=== PATIENT | male | born 1970 | race Caucasian/White ===

== ENCOUNTER 2016-04-08 07:56 | Emergency (ER) | payer MEDICARE, MEDICAID ==
[~2016-04-08] VITALS: Ht 167.6 cm; Wt 145.5 kg
[~2016-04-08 07:56] MED LIST: AGM875T PO; ALBU0.8322 NEB; ALBU8.5H2 IH; ALBU8.5H4 IH; ASP325TEC PO; CARV3.12 PO; CARV6.252 PO; CLCX200C PO; CYCL10TA9 PO; DOXY-233 PO; FLUO20CA25 PO; FURO40TA4 PO; GBPN300C PO; HCTZ; HELIDAC PO; HYDR-2889 PO; HYDR-2890 PO; HYDR-2997 PO; HYDR-3714 PO; HYDR-757 PO; HYDR1CAP3; HYDR1TAB PO; HYDR1TAB86 PO; IBP800T PO; KCL20TCR PO; LISI5TAB PO; LOVA20TA2 PO; MELO-195 PO; METFORMIN; MPR22T TOP; MTF500T PO; MULT-608 PO; NF-ESOM40C PO; OMEP40CA36 PO; PHEN37.53 PO; PNT40TEC PO; PRD20T PO; PROZAC; RAMI1.25 PO; TRAZ150T42 PO; TRM50T; TRM50T PO; TRZ50T; WRF5T
--- OUTSIDE RECORDS SUMMARY | 2016-04-08 08:02 | XMS REPORT | Continuity of Care Document ---
Author Author [facility] Organization [facility] Address Unknown Phone Unavailable Care Team Providers Care Network Announcer Name Role Phone Eli Cheema PCP [phone] Source Comments Some departments are not documenting in the electronic medical record. If you do not see the information that you expected, contact Release of Information in the Health Information Management department at [phone] for further assistance in locating additional records.[facility] Active Allergies and Adverse Reactions Not on File Current Medications Not on file Active Problems Not on file Social History Tobacco Use Types Packs/Day Years Used Date Never Assessed Plan of Care Health Maintenance Due Date Last Done Comments Physical (Comprehensive) 1977 Exam Pertussis Vaccine 1981 Tetanus Vaccine 09/17/1987 Influenza Vaccine 11/12/2014 Results from Last 3 Months Not on file
[2016-04-08] MEDS ORDERED: MORP30TA60 PO (08:22)
[2016-04-08] MEDS ORDERED: MORP15TA69 PO (08:22)
[2016-04-08] MEDS ORDERED: GABA600T2 PO (08:22)
[2016-04-08] MEDS ORDERED: PALI9TAB PO (08:22)
--- NOTE | 2016-04-08 09:07 | Diagnostic Imaging Report ---
Clinical indication: Patient states he fell last night hurting foot. Patient has pain in the fifth metatarsal area. Exam: X-ray of the right foot, 3 views. Comparison: X-ray of the right foot dated 07/30/2010. Findings: Compared to the prior study, there is a new roughly 1 mm calcification which is medially adjacent to the fifth MTP joint. A donor site is not visualized on this exam. Correlation for pain in this region would better evaluate. Otherwise, the remainder of the right foot shows no other concern for acute fracture or dislocation. Stable hypertrophic calcaneal spur at the plantar attachment. Impression: 1.: Interval development of a small calcification which is medially adjacent to the fifth MTP joint with no donor site seen. It is unknown if this is acute or chronic. Correlation for pain in this region would help better evaluate. If there is continued concern, then CT scan would better evaluate. 2.: Stable calcaneal degenerative disease. Dictated by: Dictated on workstation # [id number]
--- NOTE | 2016-04-08 09:13 | ED Lower Extremity ---
General Chief Complaint: Lower Extremity Stated Complaint: FALL/RIGHT FOOT INJURY Nursing Triage Note: PT CO OF R FOOT PAIN FROM FALL Nursing Sepsis Screen: No Definite Risk Source: patient Exam Limitations: no limitations History of Present Illness Time seen by provider: 09:08 Initial Comments The patient is a 45-year-old white male who is quite obese. He reports that last night through in attentiveness he rolled his right ankle. He promptly iced and elevated this. He reports that now the ankle is not swollen but he has pain along the lateral aspect of the foot is unable to walk on it. Onset: yesterday Pain/Injury Location: right foot, right ankle Method of Injury: twisted Allergies and Home Medications Allergies Coded Allergies: NKANo Known Allergies (Unverified Allergy, Mild, 01/25/09) Home Medications Albuterol 8.5 Gm Hfa.aer.ad 2 PUFF IH Q4H PRN PRN (Reported) PRN SHORTNESS OF BREATH Albuterol Sulfate 2.5 Mg/3 Ml Solution 2.5 MG NEB DAILY PRN PRN (Reported) PRN WHEEZING Carvedilol 6.25 Mg Tablet 3.125 MG PO BID (Reported) Esomeprazole Mag Trihydrate 40 Mg Capsule.dr #30 40 MG PO DAILY (Reported) Fluoxetine Hcl 20 Mg Capsule 20 MG PO DAILY (Reported) Furosemide 40 Mg Tablet 40 MG PO BID (Reported) take one in AM and one in early afternoon Gabapentin 600 Mg Tablet Unknown Dose PO DAILY (Reported) Hydrocodone Bit/Acetaminophen 1 Each Tablet #14 1-2 EACH PO Q6HR PRN PRN PRN PAIN Prescribed by: GONSALO NOVAK on 03/21/142218 Lovastatin 20 Mg Tablet 10 MG PO HS (Reported) TAKES 1/2 OF 20MG TAB DAILY Metformin Hcl 500 Mg Tablet 500 MG PO BID (Reported) Morphine Sulfate 15 Mg Tablet.er 15 MG PO DAILY (Reported) Morphine Sulfate 30 Mg Tablet.er 30 MG PO HS (Reported) Paliperidone 9 Mg Tablet.sa 12 MG PO DAILY PRN PRN ANXIETY (Reported) Potassium Chloride 20 Meq Tab 20 MEQ PO DAILY (Reported) Trazodone Hcl 150 Mg Tablet 150 MG PO HS (Reported) Constitutional: see HPI EENTM: no symptoms reported Respiratory: no symptoms reported Cardiovascular: no symptoms reported Gastrointestinal: no symptoms reported Genitourinary: see HPI Musculoskeletal: joint pain Skin: no symptoms reported Psychiatric/Neurological: No Symptoms Reported Past Fhbaejt-Oeijsk-Ncpavq Hx Patient Social History Alcohol Use: Denies Use Recreational Drug Use: No Smoking Status: Current Everyday Smoker Recent Foreign Travel: No Contact w/Someone Who Travel: No Recent Infectious Disease Expo: No Recent Hopitalizations: Yes (BLOOD CLOT IN LEFT KNEE) Physical Abuse Screen: No Sexual Abuse: No Immunizations Up To Date Tetanus Booster (TDap): Less than 5yrs Date of Influenza Vaccine: Nov 29, 2011 Surgeries HX Surgeries: Yes (RIGHT SHOULDER REPAIR/ L KNEE ARTHROSCOPY, GASTRIC SLEEVE) Respiratory Hx Respiratory Disorders: Yes Respiratory Disorders: Asthma, Sleep Apnea Cardiovascular Hx Cardiac Disorders: Yes (CHF) Cardiac Disorders: Angina, High Cholesterol, Hypertension Neurological Hx Neurological Disorders: Yes Neurological Disorders: Neuropathy Reproductive System Hx Reproductive Disorders: No Sexually Transmitted Disease: No Genitourinary Hx Genitourinary Disorders: No Gastrointestinal Hx Gastrointestinal Disorders: Yes (GASTRIC BYPASS 2013) Musculoskeletal Hx Musculoskeletal Disorders: Yes (CHRONIC LEG PAINS) Endocrine Hx Endocrine Disorders: No Endocrine Disorders: Diabetes, Non-Insulin dep HEENT HX ENT Disorders: Yes (SEVERAL MISSING AND BROKEN teeth) Cancer Hx Cancer: No Psychosocial Hx Psychiatric Problems: Yes Behavioral Health Disorders: Depression Integumentary HX Skin/Integumentary Disorder: No Blood Transfusions Hx Blood Disorders: No Family Medical History Significant Family History: Cancer, Diabetes Physical Exam Vital Signs Vital Sign - Last 12Hours 04/08/16 08:10 Temp 98.0 Pulse 76 Resp 18 B/P 132/98 Pulse Ox 95 Capillary Refill : Less Than 3 Seconds General Appearance: mild distress HEENT: normal ENT inspection Neck: non-tender full range of motion supple normal inspection Cardiovascular: normal peripheral pulses regular rate, rhythm no edema no gallop no JVD no murmur Respiratory: chest non-tender lungs clear normal breath sounds no respiratory distress no accessory muscle use Gastrointestinal: other Back: normal inspection Comments There is minimum swelling noted. The distal tibia and foot show a bronzy discoloration suggesting venous stasis dermatitis. There is tenderness in the distribution of the lateral ligament. There is particular tenderness without deformity at the fifth metatarsal head. Progress/Results/Core Measures Results/Orders My Orders Orders-MARY TIM MD Foot, Right, 3 View (04/08/16 07:58) Steplite (04/08/16 09:16) Vital Signs/I&O Vital Sign - Last 12Hours 04/08/16 08:10 Temp 98.0 Pulse 76 Resp 18 B/P 132/98 Pulse Ox 95 Blood Pressure Mean: 109 Departure Impression Impression: Primary Impression: right ankle sprain Disposition: 01 HOME, SELF-CARE Condition: Stable/Unchanged Departure-Patient Inst. Decision time for Depature: 09:11 Referrals: [facility] (PCP/Family) Primary Care Physician Patient Instructions: Ankle Sprain (DC) Add. Discharge Instructions: All discharge instructions reviewed with patient and/or family. Voiced understanding. Continue to elevate and ice for a period of 48 hours. Use the boot as placed. This may be removed for bathing or sleep. It may take 3 weeks or more before you're able to walk without discomfort. If further problems see your provider. MARY TIM MD Apr 08, 2016 09:13
[2016-04-08 16:10] VITALS: BP 124/74
== END 2016-04-08 09:30 | disposition home or self-care (01) ==
LOC: EDUNIT# 07:56 → ER 07:58
DX: S93.401A Sprain of unspecified ligament of right ankle, initial encounter (principal); E11.9 Type 2 diabetes mellitus without complications; E66.9 Obesity, unspecified; F17.210 Nicotine dependence, cigarettes, uncomplicated; Z79.84 Long term (current) use of oral hypoglycemic drugs; Z79.899 Other long term (current) drug therapy; Z98.84 Bariatric surgery status; X58.XXXA Exposure to other specified factors, initial encounter; Y92.009 Unspecified place in unspecified non-institutional (private) residence as the place of occurrence of the external cause; Y99.8 Other external cause status
CPT/HCPCS: 73630

== ENCOUNTER → 2016-05-04 | Outpatient (CLI) | payer MEDICARE, MEDICAID ==
[~2016-05-04] MED LIST changes: +GABA600T2 PO; +MORP15TA69 PO; +MORP30TA60 PO; +PALI9TAB PO
--- OUTSIDE RECORDS SUMMARY | 2016-05-04 13:40 | XMS REPORT | Continuity of Care Document ---
Author Author [facility] Organization [facility] Address Unknown Phone Unavailable Care Team Providers Care Hide Measuring Machine Operator Name Role Phone Eli Cheema PCP [phone] Source Comments Some departments are not documenting in the electronic medical record. If you do not see the information that you expected, contact Release of Information in the Health Information Management department at [phone] for further assistance in locating additional records.[facility] Active Allergies and Adverse Reactions Not on [...]
--- NOTE | 2016-05-04 14:42 | Diagnostic Imaging Report ---
PROCEDURE: CT right lower extremity without contrast. TECHNIQUE: Axially acquired CT was obtained through the right lower extremity without intravenous contrast. Coronal and sagittal reformations were also performed. INDICATION: Anterior foot pain. COMPARISON: Right foot radiographs of 04/08/2016. FINDINGS: There is no acute or healing fracture in the right hindfoot, midfoot or forefoot. There are small foci of heterotopic ossification just medial to the fifth metatarsal head. There is no cortical defect in the metatarsal head to indicate donor site fracture. These are likely due to soft tissue trauma resulting in small foci of heterotopic ossification. No evidence of metatarsal or calcaneal stress injury. Hallux sesamoids are normal in position without significant degenerative changes. There is an os trigonum present at the posterior process of the talus, a normal variant. No tarsal coalition. Small plantar calcaneal spur. No osseous erosions or uniform joint space narrowing to suggest inflammatory arthritis. By CT, the distal Achilles is normal. No subluxation of the peroneal tendons. Medial flexor and anterior extensor tendons of the ankle are grossly normal. No soft tissue swelling. IMPRESSION: 1. No acute or healing fracture in the right foot. 2. Small foci of heterotopic ossification adjacent to the medial aspect of the fifth metatarsal head are likely from trauma resulting in soft tissue mineralization. 3. No stress fracture of the metatarsals or calcaneus. Dictated by: Dictated on workstation # [id number]
== END ==
LOC: RAD 13:34
PROVIDERS: ATTEND Family Medicine
DX: M79.671 Pain in right foot (principal)
CPT/HCPCS: 73700

== ENCOUNTER → 2017-12-07 | Outpatient (CLI) | payer MEDICARE, MEDICAID ==
[~2017-12-07] MED LIST changes: +REGADENOSON 0.4 MG/5 ML SYR (LEXISCAN) IV ONE
[2017-12-07] MEDS: CATHETER FLUSH 10 ML SYR IV PRN ×2 (08:13→09:40)
[2017-12-07 09:39] VITALS: BP 151/104
--- NOTE | 2017-12-07 22:07 | STRESS TEST ---
DATE OF SERVICE: 12/07/2017 LEXISCAN MYOVIEW STRESS TEST REPORT REFERRING PHYSICIAN: Dr. Cheema, [facility]. Baseline heart rate is 81, baseline blood pressure 151/104. Baseline EKG is sinus rhythm with no ischemic changes. In summary, the patient was injected with 10.71 mCi of technetium-99 Myoview and the resting images were obtained. Then, the patient received 0.4 mg of Lexiscan followed by 30.1 mCi of technetium-99 Myoview. Throughout the test, there were no EKG changes. The resting and stress images were reviewed and compared in the short axis, horizontal long axis, and vertical long axis views. Review of the images showed diaphragmatic attenuation with typical male pattern. There is no significant ischemia or infarction was seen. SSS is 2, SDS 2, TID value 1.05. On the gated images, the left ventricle appeared to be in normal size with normal contractility. Calculated ejection fraction 65%. CONCLUSION: 1. The patient tolerated Lexiscan well. 2. No ischemia or infarction on SPECT images with diaphragmatic attenuation. 3. Normal left ventricular size with normal contractility. Calculated ejection fraction 65%. Job ID: [id number] DocumentID: [id number] Dictated Date: 12/07/2017 19:04:59 Tourist Escort Date: 12/07/2017 22:06:38 Dictated By: ARPAN YOUNG MD
== END ==
LOC: CARD 07:58
PROVIDERS: ATTEND Internal Medicine Cardiovascular Disease
DX: R07.89 Other chest pain (principal)
CPT/HCPCS: 78452; 93017

== ENCOUNTER → 2017-12-22 | Outpatient (CLI) | payer MEDICARE, MEDICAID ==
[~2017-12-22] MED LIST changes: -REGADENOSON 0.4 MG/5 ML SYR (LEXISCAN) IV ONE
--- NOTE | 2017-12-22 10:05 | Diagnostic Imaging Report ---
EXAMINATION: Left knee at 0942 AM INDICATION: Knee pain Three views were obtained. There is no fracture, dislocation or acute bony abnormality evident. There is perhaps slightly greater narrowing of both the medial and lateral compartments of the knee joint when compared to the prior exam of 08/19/2011. The patellofemoral space remains well maintained. The soft tissues are unremarkable. IMPRESSION: 1. There is no evidence for an acute bony abnormality. 2. The degenerative changes involving the knee joint have progressed somewhat since the prior study. 3. If there is clinical concern regarding internal derangement, then MRI would be recommended for further evaluation. Dictated by: Dictated on workstation # [id number]
== END ==
LOC: RAD 09:09
PROVIDERS: ATTEND Physician Assistant
DX: S89.92XA Unspecified injury of left lower leg, initial encounter (principal); M17.12 Unilateral primary osteoarthritis, left knee
CPT/HCPCS: 73562

== ENCOUNTER → 2017-12-28 | Outpatient (CLI) | payer MEDICARE, MEDICAID | LOC: CARD 13:06 | PROVIDERS: ATTEND Internal Medicine Cardiovascular Disease | DX: R07.89 Other chest pain (principal); I07.1 Rheumatic tricuspid insufficiency | CPT/HCPCS: 93306 ==

== ENCOUNTER → 2018-01-04 | Outpatient (CLI) | payer MEDICARE, MEDICAID ==
--- NOTE | 2018-01-04 12:39 | Diagnostic Imaging Report ---
PROCEDURE: MRI left joint lower extremity without contrast. TECHNIQUE: Multiplanar, multisequence non contrast-enhanced MRI of the left lower extremity was accomplished. INDICATION: Twisting left knee injury 3 weeks ago with persistent pain. COMPARISON: Radiographs from 12/22/2017. FINDINGS: No acute fracture or dislocation is seen in the left knee. There is motion artifact on multiple sequences. Subcortical cyst-like changes are seen at the tibia and the femoral trochlea, likely degenerative. Small osteophytes are noted at all 3 compartments. There is minimally increased joint fluid without yessenia effusion seen. There is a small Mancuso's cyst with small 5 mm joint bodies present. The articular cartilage in the patellofemoral compartment demonstrates full-thickness cartilage loss over the lateral trochlea with heterogeneity and surface irregularity of the patellar articular cartilage. The articular cartilage in the medial compartment demonstrates moderate to marked thinning with areas of near full-thickness cartilage loss. The lateral compartment demonstrates moderate to marked thinning of the articular cartilage as well. No large full-thickness defects are seen. There is mildly increased signal in the lateral meniscus without discrete tear seen. The medial meniscus demonstrates complex, predominantly horizontal tearing of the posterior horn which extends to the meniscal body which is partially extruded. There is radial tearing of the meniscal body as well. The anterior and posterior cruciate ligaments appear intact. The medial collateral ligament demonstrates mild adjacent edema, which may be due to the meniscal pathology, but no ligamentous tear is seen. The lateral collateral ligamentous complex appears intact. The extensor mechanism appears intact. The medial and lateral retinacula are intact. The soft tissues about the left knee are otherwise unremarkable. IMPRESSION: 1. Complex tearing of the medial meniscus of the left knee. 2. Mild tricompartmental osteoarthritis and cartilage loss in the left knee. 3. Small Mancuso's cyst with small joint bodies. Dictated by: Dictated on workstation # [id number]
== END ==
LOC: RAD 09:46
PROVIDERS: ATTEND Family Medicine
DX: S83.232A Complex tear of medial meniscus, current injury, left knee, initial encounter (principal); X50.1XXA Overexertion from prolonged static or awkward postures, initial encounter; M17.12 Unilateral primary osteoarthritis, left knee; M71.22 Synovial cyst of popliteal space [Baker], left knee
CPT/HCPCS: 73721

== ENCOUNTER → 2018-01-24 | Outpatient (CLI) | payer MEDICARE, MEDICAID ==
[~2018-01-24] VITALS: Ht 167.6 cm; Wt 145.5 kg
[~2018-01-24] MED LIST changes: +ACHD5005 PO; +ESCI10TA PO; +HYDR50TA76 PO; +IBUP-1780 PO; +LIRA0.6P SQ; +LOVA40TA2 PO; +METF-397 PO; +OLOP2.5D OP; +PALI6TAB PO; +PANT40TA3 PO; +RT-ALBUINH IH; +TRAZ150T72 PO
== END | disposition home or self-care (01) ==
LOC: PREOP 06:22
PROVIDERS: ATTEND Surgery
DX: Z01.818 Encounter for other preprocedural examination (principal)

== ENCOUNTER 2018-01-31 07:03 | Day surgery (SDC) | payer MEDICARE, MEDICAID ==
[~2018-01-31] VITALS: Ht 167.6 cm; Wt 145.5 kg
[2018-01-31] MEDS ORDERED: LACTATED RINGERS 1,000 ML IV ONE (07:10)
[2018-01-31] MEDS ORDERED: LACTATED RINGERS 1,000 ML IV STA (07:20)
[2018-01-31] MEDS ORDERED: MIDAZOLAM 2 MG/2 ML (VERSED) VIAL ONE (07:25)
[2018-01-31] MEDS ORDERED: PROPOFOL INJECTION 50 ML IV ONE (07:25)
[2018-01-31 07:29] VITALS: BP 164/102
[2018-01-31] MEDS ORDERED: HURRICAINE EXT TUBE (BENZOCAINE) XX PRN (07:30)
[2018-01-31] MEDS ORDERED: HURRICAINE EXT TUBE (BENZOCAINE) ONE (08:50)
--- NOTE | 2018-01-31 08:52 | Progress Note-Pre Operative ---
Pre-Operative Progress Note H&P Reviewed The H&P was reviewed, patient examined and no changes noted. Date Seen by Provider: Jan 31, 2018 Time Seen by Provider: 08:52 Date H&P Reviewed: Jan 31, 2018 Time H&P Reviewed: 08:52 Pre-Operative Diagnosis: gerd, chest pain, weight gain PATEL QUIROGA DO Jan 31, 2018 08:52
[2018-01-31] MEDS ORDERED: SUCR1TAB36 PO (09:30)
--- NOTE | 2018-01-31 09:31 | Discharge Inst-Simple/Standard ---
Discharge Inst-Standard Discharge Medications New, Converted or Re-Newed RX: Transmitted to Pharmacy Patient Instructions/Follow Up Plan of Care/Instructions/FU: 2-3 weeks Cas Appt. Dietitian for sleeve gastrectomy follow up. Activity as Tolerated: Yes Discharge Diet: Regular Diet PATEL QUIROGA DO Jan 31, 2018 09:31
[2018-01-31 09:35] VITALS: BP 149/97
--- NOTE | 2018-01-31 09:35 | Progress Note-Post Operative ---
Post-Operative Progess Note Surgeon (s)/Building Maintenance Supervisor (s) Surgeon PATEL QUIROGA DO Building Maintenance Supervisor: na Pre-Operative Diagnosis gerd, chest pain, weight gain Post-Operative Diagnosis minimal gastritis, hiatal hernia Procedure & Operative Findings Date of Procedure 01/31/18 Procedure Performed/Findings egd c biopsy Anesthesia Type per cam milling machine operator Estimated Blood Loss Estimated blood loss (mL): na Specimens/Packing Specimens Removed antrum PATEL QUIROGA DO Jan 31, 2018 09:35
[2018-01-31 10:05] VITALS: BP 153/92
[2018-01-31 10:10] VITALS: BP 153/92
--- NOTE | 2018-01-31 12:13 | Anesthesia-General Post-Op ---
MAC Patient Condition Mental Status/LOC: Same as Preop Cardiovascular: Satisfactory Nausea/Vomiting: Absent Respiratory: Satisfactory Pain: Controlled Complications: Absent Post Op Complications Complications None Follow Up Care/Instructions Patient Instructions None needed. Anesthesiology Discharge Order Discharge Order Patient is doing well, no complaints, stable vital signs, no apparent adverse anesthesia problems. No complications reported per nursing. RASHEEDA POWELL CRNA Jan 31, 2018 12:13
--- NOTE | 2018-01-31 16:39 | OPERATIVE REPORT ---
DATE OF SERVICE: 01/31/2018 PREOPERATIVE DIAGNOSES: Gastroesophageal reflux disease, chest pain, and weight gain. POSTOPERATIVE DIAGNOSES: Minimal gastritis, hiatal hernia. PROCEDURE PERFORMED: Esophagogastroduodenoscopy with biopsy. ANESTHESIA: Per RADIO STATION OPERATOR. ESTIMATED BLOOD LOSS: None. SPECIMENS: Antrum. INDICATIONS: The patient is a 47-year-old male with some GERD, chest pain and weight gain after sleeve gastrectomy. He understands risks and benefits of procedure and wished to proceed with procedure. Consent was signed in the chart. DESCRIPTION OF PROCEDURE: The patient was taken to the endoscopy suite, placed in left lateral recumbent position. Timeout was performed. Scope was inserted in mouth, down the esophagus, stomach and then to the duodenum without difficulty. There were no polyps, masses or ulcerations of the duodenum. Scope was slowly retracted back to the stomach where it was further insufflated. The stomach with previous sleeve gastrectomy appears to be slightly dilated compared to what one would expect. There were some slight erythematous changes down in the antral portion. Biopsy of the antrum was obtained. Scope was retroflexed noting a hiatal hernia. No other pathology noted. Scope was returned to its normal position, slowly withdrawn to the distal esophagus, which had normal appearance. There were no polyps, masses or ulcerations. Scope was slowly retracted back to completely remove. The patient tolerated procedure well without any complications, taken to recovery room in stable condition. RECOMMENDATIONS: The patient is to follow up in two to three weeks. We will start him on Carafate and see how he is doing and follow up on pathology results. Further recommendations are pending. Job ID: [id number] DocumentID: [id number] Dictated Date: 01/31/2018 09:36:50 Slitting Machine Feeder Date: 01/31/2018 16:39:17 Dictated By: PATEL QUIROGA DO
== END 2018-01-31 10:10 | disposition home or self-care (01) ==
LOC: ENDO 07:03
PROVIDERS: ATTEND Surgery
DX: K29.70 Gastritis, unspecified, without bleeding (principal); K21.9 Gastro-esophageal reflux disease without esophagitis; K44.9 Diaphragmatic hernia without obstruction or gangrene; I11.0 Hypertensive heart disease with heart failure; I50.9 Heart failure, unspecified; I20.9 Angina pectoris, unspecified; E11.43 Type 2 diabetes mellitus with diabetic autonomic (poly)neuropathy; J45.909 Unspecified asthma, uncomplicated; G47.33 Obstructive sleep apnea (adult) (pediatric); F17.210 Nicotine dependence, cigarettes, uncomplicated; E66.01 Morbid (severe) obesity due to excess calories; Z68.43 Body mass index [BMI] 50.0-59.9, adult; Z86.718 Personal history of other venous thrombosis and embolism; Z79.84 Long term (current) use of oral hypoglycemic drugs; Z79.899 Other long term (current) drug therapy; Z98.84 Bariatric surgery status

== ENCOUNTER → 2018-06-01 | Outpatient (CLI) | payer MEDICARE, MEDICAID ==
[~2018-06-01] MED LIST changes: -GABA600T2 PO; +GBPN600T PO; +SUCR1TAB36 PO
--- NOTE | 2018-06-01 17:19 | Diagnostic Imaging Report ---
INDICATION: Lump on shoulder. AP and angled views of the right clavicle are obtained. FINDINGS: No fracture or acute bony abnormality is seen. There is no destructive bony lesion. There is some superior osteophyte formation at the AC joint, especially involving the distal clavicle. There are calcifications at the rotator cuff insertion, which may represent calcific tendinitis. IMPRESSION: No acute bony abnormality. There is some superior osteophyte formation at the AC joint. There are findings suspicious for calcific tendinitis of the rotator cuff. Dictated by: Dictated on workstation # [id number]
== END ==
LOC: RAD 16:35
PROVIDERS: ATTEND Family Medicine
DX: M25.711 Osteophyte, right shoulder (principal)
CPT/HCPCS: 73000

== ENCOUNTER → 2018-06-28 | Outpatient (CLI) | payer MEDICARE, MEDICAID ==
--- NOTE | 2018-06-28 14:49 | Diagnostic Imaging Report ---
INDICATION: Right shoulder mass. TECHNIQUE: Interrogation of the area of mass just above the right acromioclavicular joint was performed. FINDINGS: There is a circumscribed ovoid hypoechoic mass at this location measuring 1.9 x 1.0 x 2.0 cm. No definite internal vascularity is seen. There are some internal echoes. No other abnormality is seen. IMPRESSION: Complex cystic-appearing mass at the area of palpable abnormality, nonspecific. MRI of the right shoulder would be useful for further characterization. Dictated by: Dictated on workstation # [id number]
== END ==
LOC: RAD 10:48
PROVIDERS: ATTEND Family Medicine
DX: R22.31 Localized swelling, mass and lump, right upper limb (principal)
CPT/HCPCS: 76881

== ENCOUNTER → 2018-07-14 | Outpatient (CLI) | payer MEDICARE, MEDICAID ==
--- NOTE | 2018-07-14 13:16 | Diagnostic Imaging Report ---
PROCEDURE: MRI right joint upper extremity without contrast. TECHNIQUE: Multiplanar, multisequence non contrast-enhanced MRI of the right upper extremity was accomplished. INDICATION: Mass on right shoulder. FINDINGS: There are no previous MRI examinations available for comparison. The plain film examination of the right clavicle performed on 06/01/2018 noted degenerative changes involving the acromioclavicular joint but failed to show any sign of an acute abnormality. The ultrasound examination of the right acromioclavicular joint performed on 06/28/2018 did note a circumscribed oval hypoechoic mass measuring 1.8 x 1.0 x 2.0 cm. This mass had the appearance of a cyst. On this study, there is a corresponding well-circumscribed cyst along the superior margin of the acromioclavicular joint. This measures 1.0 x 2.0 x 1.8 cm in maximum transverse, longitudinal, and AP dimensions. This cyst has a generally benign appearance and may represent a ganglion cyst. There are two or three other smaller contiguous cysts along the inferior margin of the glenoid. These have a conglomerate size of 0.9 x 1.7 x 0.7 cm. These too may represent a ganglion cyst. There is hypertrophy of the acromioclavicular joint and this does result in narrowing of the outlet for the supraspinatus muscle. There are small areas of altered signal within the supraspinatus muscle and the rotator cuff. These could be secondary to tendinosis or to a minute tears. The bursal aspect of the posterior-most insertion of the rotator cuff is also somewhat indistinct and this portion of the cuff may be frayed. For the most part, the rotator cuff appears to be intact. The supraspinatus muscle is not retracted or bunched. The biceps tendon and the subscapularis tendon are intact. The labrum is thinned posteriorly and may be slightly torn on a degenerative basis. There is no abnormal signal arising from the osseous structures to suggest bone edema or fracture. IMPRESSION: 1. There is a well-circumscribed roughly 2 cm cyst along the superior margin of the acromioclavicular joint. There are two or three other similar-appearing but smaller cysts also seen along the inferior margin of the glenoid. These may represent ganglion cysts. 2. The small areas of altered signal within the rotator cuff and supraspinatus muscle may be secondary to tendinosis or to minute partial tears. For the most part, the rotator cuff appears to be intact and the supraspinatus muscle is not retracted or bunched. 3. There is hypertrophy of the acromioclavicular joint and this does result in narrowing of the outlet for the supraspinatus muscle. 4. The labrum is thinned posteriorly and most likely slightly torn on a degenerative basis. 5. There is no acute bony abnormality noted. Dictated by: Dictated on workstation # [id number]
== END ==
LOC: RAD 07:49
PROVIDERS: ATTEND Family Medicine
DX: M25.811 Other specified joint disorders, right shoulder (principal); M89.311 Hypertrophy of bone, right shoulder; M62.89 Other specified disorders of muscle
CPT/HCPCS: 73221

== ENCOUNTER 2018-09-22 11:56 | Outpatient (CLI) | payer MEDICARE, MEDICAID ==
[~2018-09-22] VITALS: Ht 167.6 cm; Wt 132.9 kg
[2018-09-22 12:10] VITALS: BP 135/87
[2018-09-22] MEDS ORDERED: LISI10TA2 PO (13:31)
[2018-09-22] MEDS ORDERED: ALFU10TA11 PO (13:31)
[2018-09-22] MEDS ORDERED: PREG50CA2 PO (13:31)
== END 2018-09-22 12:25 | disposition home or self-care (01) ==
LOC: PREOP 11:56
PROVIDERS: ATTEND Orthopaedic Surgery
DX: Z01.818 Encounter for other preprocedural examination (principal)
CPT/HCPCS: 87081

== ENCOUNTER 2018-10-04 06:03 | Day surgery (SDC) | payer MEDICARE, MEDICAID ==
--- NOTE | 2018-09-18 17:01 | HISTORY AND PHYSICAL ---
DATE OF SERVICE: This will be for outpatient surgery on 10/04/2018 for right shoulder arthroscopy with open distal clavicle excision. HISTORY OF PRESENT ILLNESS: The patient is a 48-year-old gentleman with complaints of right shoulder pain and swelling. He underwent an MRI, which showed a ganglion cyst of his acromioclavicular joint as well as degenerative changes of his labrum. He reports pain and popping in his shoulder. He reports swelling over the dorsal aspect of his acromioclavicular joint. Due to progressive functional impairment, the patient has elected to proceed with surgical intervention. REVIEW OF SYSTEMS: No chest pain. No shortness of breath. No dysuria. PAST MEDICAL HISTORY: Congestive heart failure, COPD, depression, diabetes type 2, deep venous thrombosis, hyperlipidemia, hypertension, osteoarthritis, peripheral vascular disease, sleep apnea, cardiomyopathy, PTSD. PAST SURGICAL HISTORY: Right shoulder arthroscopy, gastric sleeve, EGD, PRIMARY CARE PROVIDER: [facility]. MEDICATIONS: Aspirin, atorvastatin, Carafate, cyclobenzaprine, hydrocodone, hydroxyzine, ibuprofen, Invega, Lexapro, lisinopril, Lyrica, metformin, MS Contin, pantoprazole, trazodone, Ventolin, Victoza. ALLERGIES: CHANTIX and TRINTELLIX. SOCIAL HISTORY: The patient is a current smoker. Denies alcohol use. RADIOGRAPHS: Reveal severe acromioclavicular arthrosis of the right shoulder. PHYSICAL EXAMINATION: GENERAL: The patient is a well-developed, well-nourished, in no acute distress. HEENT: Normocephalic, atraumatic. Pupils are equal, round and reactive to light. Oropharynx is clear. NECK: Supple, no lymphadenopathy. LUNGS: Clear to auscultation bilaterally. HEART: Regular rate and rhythm. ABDOMEN: Soft, nontender, nondistended. EXTREMITIES: The right shoulder demonstrates a 2 x 2 cm cystic mass over the dorsal aspect of his acromioclavicular joint. He has pain with cross body adduction. He has full forward elevation, external and internal rotation actively. He has a positive Palmer's maneuver, positive Neer's, positive Raines sign. He has no gross weakness of abduction, external or internal rotation. IMPRESSION: Right acromioclavicular degenerative joint disease with associated ganglion cyst and right shoulder SLAP tear. PLAN: Right shoulder arthroscopy with biceps tenotomy with open distal clavicle excision. The risks, benefits, options, ramifications and recovery have been discussed at length with the patient. He understands and wishes to proceed. Job ID: [id number] DocumentID: [id number] Dictated Date: 09/16/2018 14:10:28 Fertilizer Applicator Date: 09/16/2018 14:52:35 Dictated By: BUCK ESQUIVEL MD
[2018-10-04] VITALS (11 sets, daily range): BP systolic 101–167; BP diastolic 63–103
[~2018-10-04] VITALS: Ht 167.6 cm; Wt 132.9 kg
[~2018-10-04 06:03] MED LIST changes: +ALFU10TA11 PO; +LISI10TA2 PO; +PREG50CA2 PO
--- OUTSIDE RECORDS SUMMARY | 2018-10-04 06:10 | XMS REPORT | Clinical Summary ---
Author Author [facility] Organization [facility] Address Unknown Phone Unavailable Care Team Providers Care Data Systems Analyst Name Role Phone Eli Cheema MD PCP Source Comments Some departments are not documenting in the electronic medical record. If you d o not see the information that you expected, contact Release of Information in [facility] Information Management department at [phone] for further assistan ce in locating additional records.[facility] Allergies Not on File Medications Not on file Active Problems Not on file Social History Date Tobacco Use Types Packs/Day Years Used Never Assessed Sex Assigned at Date Recorded Not on file Industry Job Start Date Occupation Not on file Not on file Not on file Travel End Travel History Travel Start No recent travel history available. Last Filed Vital Signs Not on file Plan of Treatment Health Maintenance Due Date Last Done Comments PHYSICAL (COMPREHENSIVE) 1977 EXAM HIV SCREENING 1985 DTAP/TDAP VACCINES ( - 1988 Tdap) INFLUENZA VACCINE 12/12/2018 Results Not on filefrom Last 3 Months Insurance Type Payer Benefit Subscriber ID Effective Phone Address Plan / Dates Group Medicare MEDICARE MEDICARE xxxxxxxxxx 1992- PART A AND Present B Advance Directives Patient [employer] Explanation Type Date Recorded Advance 10/15/2014 11:35 AM Directive/DPOA
--- OUTSIDE RECORDS SUMMARY | 2018-10-04 06:11 | XMS REPORT ---
Author Author ESTHER CHAVEZ [facility] Address [address] [place] [address] Care Team Providers Care Testing And Regulating Chief Name Role Phone KATHYCIARA VILLEGASHANY Unavailable PROBLEMS Type Condition ICD9-CM Code [id number] Code Onset Dates Condition Status SNOMED Code Problem MITCHELL treated with BiPAP G47.33 Active 99548073 Problem Type 2 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 Active 026417759 Problem History of DVT (deep vein thrombosis) Z86.718 Active 322811016 Problem History of weight loss surgery Z98.84 Active 053758721 Problem Chronic systolic (congestive) heart failure I50.22 Active 773354900 Problem Essential hypertension I10 Active 15677896 Problem Chronic prescription opiate use Z79.891 Active 377056924 Problem Primary osteoarthritis of both knees M17.0 Active 449372560 Problem Chronic pain syndrome G89.4 Active 590557193 Problem Nocturnal hypoxia G47.34 Active 406042966 Problem Obesity, morbid, BMI 40.0-49.9 E66.01 Active 515101265 Problem Tobacco abuse Z72.0 Active 997421722 Problem Macrocytosis D75.89 Active 758999550 Problem Pure hypercholesterolemia E78.00 Active 076993200 Problem Posttraumatic stress disorder F43.10 Active 18486043 Problem Non-ischemic cardiomyopathy I42.9 Active 75882464 Problem Obstructive sleep apnea syndrome G47.33 Active 00936032 Problem Acute right-sided low back pain with right-sided sciatica M54.41 Active 67662106 Problem Gastroesophageal reflux disease, esophagitis presence not specified K21.9 Active 188525274 Problem Chronic obstructive pulmonary disease, unspecified COPD type J44.9 Active 45257389 Problem BMI 45.0-49.9, adult Z68.42 Active 011134448 Problem Mild episode of recurrent major depressive disorder F33.0 Active 768917135 Problem Mood disorder F39 Active 50208745 Problem Primary insomnia F51.01 Active 8585328 ALLERGIES No Information ENCOUNTERS Encounter Location Date Diagnosis [facility] [address], [place] [address] Aug, Chronic pain syndrome G89.4 [facility] [address], [place] [address] Aug, [facility] [address], [place] [address] Aug, Type 2 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 [address] July, Chronic pain syndrome G89.4 [facility] [address], [place] [address] July, [facility] [address], [place] [address] July, Encounter for Medicare annual wellness exam Z00.00 ; Chronic obstructive pulmonary disease, unspecified COPD type J44.9 ; Gastroesophageal reflux disease, esophagitis presence not specified K21.9 ; Essential hypertension I10 ; Tobacco abuse Z72.0 ; Pure hypercholesterolemia E78.00 ; Primary osteoarthritis of both knees M17.0 ; Morbid obesity E66.01 ; Type 2 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 ; Mild episode of recurrent major depressive disorder F33.0 and Chronic systolic congestive heart failure I50.22 [facility] [address], [place] [address] July, Type 2 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 [facility] [address], [place] [address] July, [facility] [id number] [place] [address] July, Urinary hesitancy R39.11 [facility] [address], [place] [address] July, Chronic pain syndrome G89.4 [facility] [id number], [place] [address] Jun, Mass of shoulder region R22.30 [facility] [address] [place] [address] Jun, Mass of shoulder region R22.30 [facility] [address] [place] [address] 05 Jun, 2018 Chronic pain syndrome G89.4 [facility] [id number] [place] [address] May, Type 2 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 ; Mass of shoulder region R22.30 and Morbid obesity E66.01 [facility] [id number] [place] [address] 07 May, 2018 Chronic pain syndrome G89.4 [facility] [id number] [place] [address] 04 May, 2018 Mood disorder F39 ; Posttraumatic stress disorder F43.10 and Morbid obesity E66.01 [facility] [address] [place] [address] 14 Apr, 2018 Major depressive disorder, recurrent episode, unspecified severity F33.9 [facility] [address] [place] [address] 13 Apr, 2018 Major depressive disorder, recurrent episode, unspecified severity F33.9 [facility] [address], [place] [address] 07 Apr, 2018 Chronic pain syndrome G89.4 [facility] [address] [place] [address] 14 Mar, 2018 Pain in right foot M79.671 ; Type 2 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 ; Chronic pain syndrome G89.4 and BMI 50.0-59.9, adult Z68.43 [facility] [address], [place] [address] Mar, [facility] [id number], [place] [address] Mar, [facility] [id number] [place] [address] Mar, Chronic pain syndrome G89.4 [facility] [id number] [place] [address] Feb, Chronic pain syndrome G89.4 [facility] [id number] [place] [address] Jan, Obstructive sleep apnea syndrome G47.33 [facility] [id number] [place] [address] Jan, Type 2 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 ; Chronic pain syndrome G89.4 ; Gastroesophageal reflux disease, esophagitis presence not specified K21.9 ; Essential hypertension I10 ; Pure hypercholesterolemia E78.00 ; Chronic prescription opiate use Z79.891 ; Obstructive sleep apnea syndrome G47.33 and BMI 50.0-59.9, adult Z68.43 [facility] [id number] [place] [address] Jan, History of weight loss surgery Z98.84 [facility] [id number] [place] [address] 16 Jan, 2018 [facility] [id number] [place] [address] Jan, Chronic pain syndrome G89.4 [facility] [id number] [place] [address] Jan, [facility] [id number] [place] [address] Jan, [facility] [id number] [place] [address] Dec, [facility] [id number] [place] [address] Dec, Chronic pain syndrome G89.4 [facility] [address] [place] [address] 18 Dec, 2017 Injury of left knee, subsequent encounter S89.92XD and Acute pain of left knee M25.562 [facility] [id number] [place] [address] 12 Dec, 2017 [facility] [address] [address] Dec, Injury of left knee, initial encounter S89.92XA and BMI 45.0-49.9, adult Z68.42 [facility] [address] [address] Nov, Chest discomfort R07.89 ; Shortness of breath R06.02 ; Chronic systolic congestive heart failure I50.22 and Type 2 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 [facility] [id number] [place] [address] 20 Nov, 2017 Chronic pain syndrome G89.4 [facility] [id number] [place] [address] Oct, BMI 45.0-49.9, adult Z68.42 ; Type 2 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 ; Chronic pain syndrome G89.4 ; Gastroesophageal reflux disease, esophagitis presence not specified K21.9 ; Decreased pedal pulses R09.89 and Precordial pain R07.2 [facility] [id number] [place] [address] Oct, [facility] [id number] [place] [address] Oct, Mood disorder F39 [facility] [id number] [place] [address] Oct, Mood disorder F39 ; Posttraumatic stress disorder F43.10 and BMI 45.0-49.9, adult Z68.42 [facility] [address] [place] [address] Sep, Primary osteoarthritis of both knees M17.0 and Chronic pain syndrome G89.4 [facility] [id number] [place] [address] Sep, Mood disorder F39 and Posttraumatic stress disorder F43.10 [facility] [id number] [place] [address] Aug, Primary osteoarthritis of both knees M17.0 and Chronic pain syndrome G89.4 [facility] [id number] [place] [address] July, Primary osteoarthritis of both knees M17.0 and Chronic pain syndrome G89.4 [facility] [address] [place] [address] July, Type 2 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 ; Essential hypertension I10 ; Pure hypercholesterolemia E78.0 ; Chronic prescription opiate use Z79.891 ; Tobacco abuse Z72.0 ; Primary osteoarthritis of both knees M17.0 ; Primary insomnia F51.01 and BMI 45.0-49.9, adult Z68.42 [facility] [address] [place] [address] July, Medicare annual wellness visit, initial Z00.00 ; Type 2 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 ; Non-ischemic cardiomyopathy I42.9 ; BMI 45.0-49.9, adult Z68.42 ; Chronic obstructive pulmonary disease, unspecified COPD type J44.9 ; Major depressive disorder, recurrent episode, unspecified severity F33.9 ; Chronic systolic (congestive) heart failure I50.22 ; Essential hypertension I10 ; Gastroesophageal reflux disease, esophagitis presence not specified K21.9 and Encounter for immunization Z23 [facility] [id number] [place] [address] July, Primary osteoarthritis of both knees M17.0 and Chronic pain syndrome G89.4 [facility] [address] [place] [address] Jun, Infection of right ear H66.91 ; Wheezing on auscultation R06.2 and BMI 45.0-49.9, adult Z68.42 [facility] [id number] [place] [address] Jun, [facility] [id number] [place] [address] Jun, Primary osteoarthritis of both knees M17.0 and Chronic pain syndrome G89.4 [facility] [id number] [place] [address] May, [facility] [id number] [place] [address] May, BMI 45.0-49.9, adult Z68.42 ; Mood disorder F39 and Posttraumatic stress disorder F43.10 [facility] [id number] [place] [address] May, [facility] [id number] [place] [address] May, Primary osteoarthritis of both knees M17.0 and Chronic pain syndrome G89.4 [facility] [id number] [place] [address] May, Mood disorder F39 [facility] [address] [place] [address] Apr, Type 2 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 [facility] [address] [place] [address] Apr, [facility] [id number] [place] [address] Apr, Primary osteoarthritis of both knees M17.0 and Chronic pain syndrome G89.4 [facility] [address] [place] [address] Apr, Mood disorder F39 [facility] [id number] [place] [address] Mar, Mood disorder F39 and Posttraumatic stress disorder F43.10 [facility] [id number] [place] [address] Mar, Primary osteoarthritis of both knees M17.0 and Chronic pain syndrome G89.4 [facility] [id number] [place] [address] Feb, Primary osteoarthritis of both knees M17.0 and Chronic pain syndrome G89.4 [facility] [id number] [place] [address] Feb, Mood disorder F39 [facility] [id number] [place] [address] Jan, Type 2 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 ; Primary osteoarthritis of both knees M17.0 ; Mood disorder F39 ; Obesity, morbid, BMI 40.0-49.9 E66.01 ; Chronic prescription opiate use Z79.891 ; Acute suppurative otitis media of both ears without spontaneous rupture of tympanic membranes, recurrence not specified H66.003 and BMI 45.0-49.9, adult Z68.42 [facility] [id number] [place] [address] Jan, Primary osteoarthritis of both knees M17.0 and Chronic pain syndrome G89.4 [facility] [id number] [place] [address] Dec, Mood disorder F39 and Posttraumatic stress disorder F43.10 [facility] [id number] [place] [address] Dec, Primary osteoarthritis of both knees M17.0 and Chronic pain syndrome G89.4 [facility] [address] [place] [address] Nov, Chronic pain syndrome G89.4 [facility] [id number] [place] [address] 15 Nov, 2016 Primary osteoarthritis of both knees M17.0 and Chronic pain syndrome G89.4 [facility] [id number] [place] [address] 13 Nov, 2016 Type 2 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 and Chronic pain syndrome G89.4 [facility] [id number] [place] [address] 12 Nov, 2016 Posttraumatic stress disorder F43.10 and Mood disorder F39 [facility] [id number] [place] [address] 18 Oct, 2016 Chronic pain syndrome G89.4 [facility] [id number] [place] [address] 16 Oct, 2016 Type 2 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 ; BMI 45.0-49.9, adult Z68.42 ; Primary osteoarthritis of both knees M17.0 and Skin lesion L98.9 [facility] [id number] [place] [address] Oct, Chronic pain syndrome G89.4 [facility] [id number] [place] [address] Sep, Chronic pain syndrome G89.4 [facility] [id number] [place] [address] Sep, [facility] [id number] [place] [address] Sep, Chronic pain syndrome G89.4 [facility] [address] [place] [address] Aug, Chronic pain syndrome G89.4 [facility] [id number] [place] [address] Aug, [facility] [id number] [place] [address] Aug, Macrocytosis D75.89 and Pure hypercholesterolemia E78.0 [facility] [id number] [place] [address] Aug, Pure hypercholesterolemia E78.0 [facility] [id number] [place] [address] Aug, Macrocytosis D75.89 [facility] [id number] [place] [address] Aug, Pure hypercholesterolemia E78.0 ; Type 2 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 ; MITCHELL treated with BiPAP G47.33 and Chronic pain syndrome G89.4 [facility] [id number] [place] [address] Aug, [facility] [id number] [place] [address] Aug, Hemorrhoids, unspecified hemorrhoid type K64.9 [facility] [id number] [place] [address] Aug, Chronic pain syndrome G89.4 ; Type 2 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 ; Hemorrhoids, unspecified hemorrhoid type K64.9 ; Tobacco abuse Z72.0 and Primary osteoarthritis of both knees M17.0 [facility] [id number] [place] [address] July, Chronic pain syndrome G89.4 [facility] [id number] [place] [address] July, [facility] [id number] [place] [address] Jun, Chronic pain syndrome G89.4 [facility] [id number] [place] [address] Jun, Chronic pain syndrome G89.4 [facility] [id number] [place] [address] Jun, Severe major depression with psychotic features F32.3 and Posttraumatic stress disorder F43.10 [facility] [address], [place] [address] Jun, Chronic pain syndrome G89.4 [facility] [id number] [place] [address] Jun, [facility] [id number] [place] [address] May, Chronic pain syndrome G89.4 [facility] [id number] [place] [address] May, Tobacco abuse Z72.0 [facility] [id number] [place] [address] May, [facility] [id number] [place] [address] Apr, Chronic pain syndrome G89.4 [facility] [id number] [place] [address] Apr, [facility] [id number] [place] [address] Apr, Right foot pain M79.671 [facility] [address] [place] [address] Mar, Type 2 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 ; MITCHELL treated with BiPAP G47.33 ; Pure hypercholesterolemia E78.0 ; Chronic pain syndrome G89.4 ; Tobacco abuse Z72.0 and Obesity, morbid, BMI 40.0-49.9 E66.01 [facility] [id number] [place] [address] Mar, [facility] [id number] [place] [address] Mar, [facility] [id number] [place] [address] Mar, [facility] [address], [place] [address] Mar, [facility] [address], [place] [address] Mar, [facility] [address], [place] [address] Mar, Severe major depression with psychotic features F32.3 and Posttraumatic stress disorder F43.10 [facility] [address] [place] [address] Mar, [facility] [id number] [place] [address] Feb, [facility] [id number] [place] [address] Feb, [facility] [id number] [place] [address] Jan, [facility] [id number], [place] [address] Jan, [facility] [address] [place] [address] Dec, Posttraumatic stress disorder F43.10 and Severe major depression with psychotic features F32.3 [facility] [address], [place] [address] Dec, Type 2 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 ; Chronic pain syndrome G89.4 and Acute right-sided low back pain with right-sided sciatica M54.41 [facility] [address], [place] [address] Dec, [facility] [id number] [place] [address] Dec, [facility] [address], [place] [address] Nov, [facility] [id number] [place] [address] Nov, [facility] [id number] [place] [address] Nov, [facility] [id number] [place] [address] Oct, [facility] [id number] [place] [address] Oct, [facility] [id number] [place] [address] Sep, Dental examination Z01.20 [facility] [id number] [place] [address] Sep, [facility] [id number] [place] [address] Sep, Type 2 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 ; Chronic pain syndrome G89.4 ; Chronic prescription opiate use Z79.891 ; Injury of right index finger, sequela S69.91XS and Anejaculation N50.8 [facility] [id number] [place] [address] Aug, [facility] [id number] [place] [address] Aug, [facility] [address] [place] [address] Aug, Cellulitis of finger of right hand L03.011 [facility] [address] [place] [address] July, [facility] [id number] [place] [address] July, [facility] [id number] [place] [address] Jun, Onychomycosis B35.1 [facility] [id number] [place] [address] Jun, Severe major depression with psychotic features F32.3 and Posttraumatic stress disorder F43.10 [facility] [address], [place] [address] Jun, [facility] [address], [place] [address] Jun, [facility] [id number] [place] [address] Jun, [facility] [id number] [place] [address] May, Type 2 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 [facility] [id number] [place] [address] May, Type 2 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 and Urinary hesitancy R39.11 [facility] [address] [place] [address] May, Type 2 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 ; Left hip pain M25.552 and Benign prostatic hyperplasia with lower urinary tract symptoms, unspecified morphology N40.1 [facility] [id number] [place] [id number] May, [facility] [id number] [place] [id number] Apr, Severe major depression with psychotic features F32.3 and Posttraumatic stress disorder F43.10 [facility] [address] [address] Apr, [facility] [id number] [place], [place] [address] Mar, [facility] [address], [place] [address] Mar, Dysuria R30.0 and Urinary hesitancy R39.11 [facility] [id number], [place] [address] Mar, Onychomycosis B35.1 [facility] [id number] [place] [address] Mar, [facility] [address], [place] [address] Feb, [facility] [id number] [place] [address] Jan, [facility] [id number] [place] [address] Jan, Posttraumatic stress disorder F43.10 and Severe major depression with psychotic features F32.3 [facility] [id number] [place] [address] Jan, [facility] [id number] [place] [address] Jan, Chronic pain syndrome G89.4 ; Type 2 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 ; Decreased pedal pulses R09.89 and Paresthesia of both hands R20.2 [facility] [id number] [place] [address] Dec, Posttraumatic stress disorder F43.10 and Severe major depression with psychotic features F32.3 [facility] [address], [place] [address] Dec, [facility] [address], [place] [address] Dec, [facility] [address], [place] [address] Dec, Onychomycosis B35.1 [facility] [address], [place] [address] Dec, [facility] [address], [place] [address] Dec, [place] [id number] [place] [address] Nov, [place] [id number] [place] [address] Oct, Depression, major, recurrent, moderate 296.32 and Posttraumatic stress disorder 309.81 [place] [id number] [place] [address] Oct, [place] [id number] [place] [address] Oct, [place] [id number] [place] [address] Oct, [place] [id number] [place] [address] Sep, Posttraumatic stress disorder 309.81 and Depression, major, recurrent, moderate 296.32 [place] [id number] [place] [address] Sep, [place] [id number] [place] [address] Sep, Chronic airway obstruction, not elsewhere classified [id number] [place] [address] Sep, Onychomycosis 110.1 and DM neuro manif type II 250.60 [id number] [place] [address] Sep, Chronic pain 338.29 ; Chronic airway obstruction, not elsewhere classified 496 ; Osteoarthritis of knees, bilateral 715.96 and On potassium wasting diuretic therapy V58.69 [id number] [place] [address] Sep, Insect bites 919.4 ; Sinusitis 473.9 and GERD (gastroesophageal reflux disease) 530.81 [id number] [place] [address] Aug, Depression, major, recurrent, moderate 296.32 and Posttraumatic stress disorder 309.81 [facility] [id number], [place] [address] Aug, [facility] [id number], [place] [address] Aug, [facility] [address], [place] [address] Aug, [facility] [id number] [place] [address] July, Major depressive disorder, recurrent episode, moderate 296.32 and Posttraumatic stress disorder 309.81 [facility] [id number] [place] [address] July, [facility] [address], [place] [address] July, [facility] [id number] [place] [address] July, [facility] [address], [place] [address] July, [facility] [address], [place] [address] Jun, [facility] [address], [place] [address] Jun, [facility] [address], [place] [address] May, [facility] [address], [place] [address] May, [facility] [address], [place] [address] May, [facility] [address], [place] [address] May, [facility] [address], [place] [address] May, [facility] [place] [facility] [address] [id number] [place] [address] May, [facility] [place] [facility] [address] [id number] [place] [address] May, [facility] [place] [facility] [address] [facility] [id number] [place] [address] May, [facility] [place] [facility] [address] [id number] [place] [address] May, [facility] [place] [facility] [address] [id number] [place] [address] Apr, 2014 [facility] [place] [facility] [address] [facility] [id number] [place] [address] Apr, 2014 [facility] [place] [facility] [address] [facility] [id number] [place] [address] Apr, 2014 [facility] [place] [facility] [address] [facility] [id number] [place] [address] Apr, 2014 [facility] [place] [facility] [address] [facility] [id number] [place] [address] Apr, 2014 [facility] [place] [facility] [address] [facility] [id number] [place] [address] Apr, [facility] [place] [facility] [address] [facility] [id number] [place] [address] Apr, 2014 [facility] [place] [facility] [address] [facility] [id number], [place] [address] Apr, 2014 [facility] [place] [facility] [address] [id number] [place] [address] Apr, [facility] [place] [facility] [address] [facility] [id number] [address] Mar, [facility] [place] [facility] [address] [facility] [id number], [place] [address] Mar, [facility] [place] [facility] [address] [id number] [place] [address] Mar, [facility] [place] [facility] [address] [id number] [place] [address] Mar, [facility] [place] [facility] [address] [id number] [place] [address] Mar, [facility] [place] [facility] [address] [id number] [place] [address] Mar, [facility] [place] [facility] [address] [id number] [place] [address] Mar, [facility] [place] [facility] [address] [id number] [place] [address] Mar, [facility] [place] [facility] [address] [id number] [place] [address] Mar, [facility] [place] [facility] [address] [id number] [place] [address] Mar, [facility] [place] [facility] [address] [id number] [place] [address] Mar, [facility] [place] [facility] [address] [id number] [place] [address] Mar, [facility] [place] [facility] [address] [id number] [place] [address] Mar, [facility] [place] [facility] [address] [id number] [place] [address] Mar, [facility] [place] [facility] [address] [id number] [place] [address] Mar, [facility] [place] [facility] [address] [id number] [place] [address] Mar, [facility] [place] [facility] [address] [id number] [place] [address] 09 Mar, 2014 [facility] [place] [facility] [address] [id number] [place] [address] Mar, [facility] [place] [facility] [address] [id number] [place] [address] 16 Feb, 2014 [facility] [place] [facility] [address] [id number] [place] [address] 16 Feb, 2014 [facility] [place] [facility] [address] [id number] [place] [address] 15 Feb, 2014 [facility] [place] [facility] [address] [id number] [place] [address] 15 Feb, 2014 [facility] [place] [facility] [address] [id number] [place] [address] Feb, [facility] [place] [facility] [address] [id number] [place] [address] Feb, [facility] [place] [facility] [address] [id number] [place] [address] Jan, [facility] [place] [facility] [address] [id number] [place] [address] Jan, [facility] [place] [facility] [address] [id number] [place] [address] Jan, [facility] [place] [facility] [address] [id number] [place] [address] Jan, [facility] [place] [facility] [address] [id number] [place] [address] Jan, [facility] [place] [facility] [address] [id number] [place] [address] Jan, [facility] [place] [facility] [address] [id number] [place] [address] Jan, [facility] [place] [facility] [address] [id number] [place] [address] Jan, [facility] [place] [facility] [address] [id number] [place] [address] Jan, [facility] [place] [facility] [address] [id number] [place] [address] Jan, [facility] [place] [facility] [address] [id number] [place] [address] Dec, [facility] [place] [facility] [address] [id number] [place] [address] Dec, [facility] [place] [facility] [address] [id number] [place] [address] Dec, [facility] [place] [facility] [address] [id number] [place] [address] Dec, [facility] [place] [facility] [address] [id number] [place] [address] Nov, 2013 [facility] [place] [facility] [address] [id number] [place] [address] Nov, 2013 [facility] [place] [facility] [address] [id number] [place] [address] Nov, 2013 [facility] [place] [facility] [address] [id number] [place] [address] Nov, 2013 [facility] [place] [facility] [address] [id number] [place] [address] Nov, [facility] [place] [facility] [address] [id number] [place] [address] Nov, [facility] [place] [facility] [address] [id number] [place] [address] Oct, [facility] [place] [facility] [address] [id number] [place] [address] Oct, [facility] [place] [facility] [address] [id number] [place] [address] Oct, [facility] [place] [facility] [address] [id number] [place] [address] Oct, [facility] [place] [facility] [address] [id number] [place] [address] Sep, [facility] [place] [facility] [address] [id number] [place] [address] Sep, [facility] [place] [facility] [address] [id number] [place] [address] Sep, [facility] [place] [facility] [address] [id number] [place] [address] Sep, [facility] [place] [facility] [address] [id number] [place] [address] Sep, [facility] [place] [facility] [address] [id number] [place] [address] Sep, [facility] [place] [facility] [address] [id number] [place] [address] July, [facility] [place] [facility] [address] [id number] [place] [address] July, [facility] [place] [facility] [address] [id number] [place] [address] July, [facility] [place] [facility] [address] [id number] [place] [address] July, [facility] [place] [facility] [address] [id number] [place] [address] Jun, [facility] [place] [facility] [address] [id number] [place] [address] Jun, [facility] [place] [facility] [address] [id number] [place] [address] Jun, [facility] [place] [facility] [address] [id number] [place] [address] Jun, [facility] [place] [facility] [address] [id number] [place] [address] Jun, [facility] [place] [facility] [address] [id number] [place] [address] Jun, [facility] [place] [facility] [address] [id number] [place] [address] May, [facility] [place] [facility] [address] [id number] [place] [address] May, [facility] [place] [facility] [address] [id number] [place] [address] Apr, [facility] [place] [facility] [address] [facility] [id number] [place] [address] Apr, [facility] [place] [facility] [address] [id number] [place] [address] Apr, [facility] [place] [facility] [address] [id number] [place] [address] Apr, [facility] [place] [facility] [address] [facility] [id number] [place] [address] Apr, [facility] [place] [facility] [address] [facility] [id number] [place] [address] Apr, [facility] [place] [facility] [address] [facility] [id number] [place] [address] Apr, [facility] [place] [facility] [id number] [place] [address] Mar, [facility] [place] [facility] [address] [facility] [id number] [place] [address] Mar, [facility] [place] [facility] [address] [facility] [id number] [place] [address] Mar, [facility] [place] [facility] [address] [id number] [place] [address] Mar, [facility] [place] [facility] [address] [id number] [place] [address] Mar, [facility] [place] [facility] [address] [facility] [id number] [place] [address] Mar, [facility] [place] [facility] [address] [facility] [id number] [place] [address] Mar, [facility] [place] [facility] [address] [id number] [place] [address] 13 Mar, 2013 [facility] [place] [facility] [address] [id number] [place] [address] Feb, [facility] [place] [facility] [address] [id number] [place] [address] Feb, [facility] [place] [facility] [address] [id number] [place] [address] Feb, [facility] [place] [facility] [address] [id number] [place] [address] Feb, [facility] [place] [facility] [address] [id number] [place] [address] Feb, [facility] [place] [facility] [address] [id number] [place] [address] Feb, [facility] [place] [facility] [address] [id number] [place] [address] Feb, [facility] [place] [facility] [address] [id number] [place] [address] Jan, [facility] [place] [facility] [address] [id number], [place] [address] Jan, [facility] [place] [facility] [address] [id number], [place] [address] Jan, [facility] [place] [facility] [address] [id number], [place] [address] Jan, [facility] [place] [facility] [address] [id number], [place] [address] Jan, [facility] [place] [facility] [address] [id number], [place] [address] Jan, [facility] [place] [facility] [address] [id number][place] [address] Jan, [facility] [place] [facility] [address] [id number][place] [address] Jan, [facility] [place] [facility] [address] [id number] [place] [address] Dec, [facility] [place] [facility] [address] [id number], [place] [address] Dec, [facility] [place] [facility] [address] [id number], [place] [address] Dec, [facility] [place] [facility] [address] [id number], [place] [address] Dec, [facility] [place] [facility] [address] [id number] [place] [address] Dec, [facility] [place] [facility] [address] [id number], [place] [address] Dec, [facility] [place] [facility] [address] [id number], [place] [address] Dec, [facility] [place] [facility] [address] [id number], [place] [address] Dec, [facility] [place] [facility] [address] [id number], [place] [address] Dec, [facility] [place] [facility] [address] [id number], [place] [address] Dec, [facility] [place] [facility] [address] [id number][place] [id number] 27 Nov, 2012 [facility] [place] [facility] [address] [id number][place] [id number] 27 Nov, 2012 [facility] [place] [facility] [address] [id number], [place] [address] 24 Nov, 2012 [facility] [place] [facility] [address] [id number], [place] [address] 20 Nov, 2012 [facility] [place] [facility] [address] [id number], [place] [address] 19 Nov, 2012 [facility] [place] [facility] [address] [id number] [place] [address] 13 Nov, 2012 [facility] [address] [id number] [place] [address] 10 Nov, 2012 [facility] [place] [facility] [address] [id number] [place] [address] Nov, [facility] [place] [facility] [address] [id number] [place] [address] Oct, [facility] [place] [facility] [address] [id number] [place] [address] Oct, [facility] [place] [facility] [address] [id number] [place] [address] Oct, [facility] [place] [facility] [address] [id number] [place] [address] Sep, [facility] [address] [id number] [place] [address] Sep, [facility] [place] [facility] [address] [id number] [place] [address] Sep, [facility] [place] [facility] [address] [id number] [place] [address] Sep, [facility] [place] [facility] [address] [id number] [place] [address] Sep, [facility] [place] [facility] [address] [id number] [place] [address] Aug, [facility] [place] [facility] [address] [id number] [place] [address] Aug, [facility] [place] [facility] [address] [id number] [place] [address] Aug, [facility] [place] [facility] [address] [id number] [place] [address] Aug, [facility] [place] [facility] [address] [id number] [place] [address] Aug, [facility] [place] [facility] [address] [id number] [place] [address] Aug, [facility] [address] [id number] [place] [address] July, [facility] [address] [id number] [place] [address] July, [facility] [address] [id number] [place] [address] July, [facility] [address] [id number] [place] [address] July, [facility] [address] [id number] [place] [address] July, [facility] [address] [id number] [place] [address] July, [facility] [address] [id number] [place] [address] Jun, [facility] [address] [id number] [place] [address] Jun, [facility] [address] [id number] [place] [address] Jun, [facility] [address] [id number] [place] [address] Jun, [facility] [address] [id number] [place] [address] May, [facility] [address] [id number] [place] [address] May, [facility] [place] [facility] [address] [id number] [place] [address] May, [facility] [address] [id number] [place] [address] Apr, [facility] [address] [id number] [place] [address] 21 Mar, 2012 [facility] [place] [facility] [address] [id number] [place] [address] 18 Mar, 2012 [facility] [place] [facility] [address] [id number] [place] [address] 17 Mar, 2012 [facility] [place] [facility] [address] [id number] [place] [address] 16 Mar, 2012 [facility] [place] [facility] [address] [id number] [place] [address] 15 Mar, 2012 [facility] [place] [facility] [address] [id number] [place] [address] Feb, [facility] [place] [facility] [address] [id number] [place] [address] Feb, [facility] [place] [facility] [address] [id number] [place] [address] Feb, [facility] [place] [facility] [address] [id number] [place] [address] Feb, [facility] [place] [facility] [address] [id number] [place] [address] Jan, [facility] [place] [facility] [address] [id number] [place] [address] Jan, [facility] [place] [facility] [address] [id number], [place] [address] Jan, [facility] [place] [facility] [address] [id number], [place] [address] Jan, [facility] [place] [facility] [address] [id number] [place] [address] Dec, [facility] [place] [facility] [address] [id number], [place] [address] Dec, [facility] [place] [facility] [address] [id number] [place] [address] Nov, [facility] [place] [facility] [address] [id number] [place] [address] Oct, [facility] [address] [id number] [place] [address] Oct, [facility] [address] [id number] [place] [address] Oct, [facility] [address] [id number] [place] [address] Oct, [facility] [address] [id number] [place] [address] Oct, [facility] [address] [id number] [place] [address] Sep, [facility] [address] [id number] [place] [address] Sep, [facility] [address] [facility] [id number] [place] [address] Aug, [facility] [address] [place] [id number] Aug, [facility] [address] [id number] [place] [address] Aug, [facility] [address] [facility] [id number] [place] [address] July, [facility] [address] [id number] [place] [address] July, [facility] [address] [id number], [place] [address] Jun, [facility] [address] [id number] [place] [address] Jun, [facility] [address] [id number] [place] [address] 16 Jun, 2011 [facility] [address] [id number] [place] [address] Jun, [facility] [place] [facility] [address] [id number] [place] [address] 15 Apr, 2011 [facility] [place] [facility] [address] [id number] [place] [address] 15 Apr, 2011 [facility] [place] [facility] [address] [id number] [place] [address] 10 Apr, 2011 [facility] [place] [facility] [address] [id number] [place] [address] Mar, [facility] [place] [facility] [address] [id number] [place] [address] Mar, [facility] [place] [facility] [address] [id number] [place] [address] Mar, [facility] [address] [id number] [place] [address] Mar, [facility] [address] [id number] [place] [address] Mar, [facility] [place] [facility] [address] [id number] [place] [address] Jan, [facility] [address] [id number] [place] [address] Jan, [facility] [place] [facility] [address] [id number] [place] [address] Jan, [facility] [place] [facility] [address] [id number] [place] [address] Mar, [facility] [place] [facility] [address] [id number] [place] [address] Mar, [facility] [place] [facility] [address] [id number] [place] [address] Feb, [facility] [place] [facility] [address] [id number] [place] [address] 16 Feb, 2010 [facility] [place] [facility] [address] [id number], [place] [address] 16 Feb, 2010 [facility] [id number] [address] Jan, [facility] [id number], [place] [address] Jan, [facility] [id number], [place] [address] Dec, [facility] [id number], [place] [address] Dec, [facility] [id number], [place] [address] May, [facility] [id number] [place] [address] Apr, [facility] [id number] [place] [address] Feb, [facility] [id number], [place] [address] Feb, [facility] [id number] [place] [address] [id number] Jan, [facility] [id number] [address] Jan, [facility] [id number] [address] Jan, [facility] [id number] [address] Jan, [facility] [id number], [place] [address] Jan, IMMUNIZATIONS No Known Immunizations SOCIAL HISTORY Never Assessed REASON FOR VISIT PLAN OF CARE VITAL SIGNS MEDICATIONS Unknown Medications RESULTS No Results PROCEDURES No Known procedures INSTRUCTIONS MEDICATIONS ADMINISTERED No Known Medications MEDICAL (GENERAL) HISTORY Type Description Date Medical History sleep apnea Medical History chronic pain Medical History DVT-left leg dx''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 2008 Medical History hypertension Medical History congestive heart failure Medical History hyperlipidemia Medical History depression Medical History type II diabetes Medical History cardiomyopathy Medical History obesity Medical History PTSD Medical History chronic obstructive pulmonary disease (COPD) Medical History peripheral vascular disease- normal JENNIFER bilaterally in 2009 Medical History osteoarthritis Medical History Chronic systolic congestive heart failure Surgical History orthopedic surgery-right shoulder Surgical History gastric sleeve ( [facility]) 03/2013 Surgical History tooth extraction 05/17/17 Surgical History EGD 01/2018 Hospitalization History ED then admitted to [facility]-cardiac stepdown-chest pain 02/2010 Hospitalization History Possible DVT-sono negative 06/2010 Hospitalization History cellulitis to bilat legs
--- OUTSIDE RECORDS SUMMARY | 2018-10-04 06:12 | XMS REPORT ---
Author Author ESTHER CHAVEZ [facility] Address [address] [place] [address] Care Team Providers Care Associate Relations Specialist Name Role Phone KATHYCIARA VILLEGASHANY Unavailable PROBLEMS Type Condition ICD9-CM Code NVP28-DM Code Onset Dates Condition Status SNOMED Code Problem MITCHELL treated with BiPAP G47.33 Active 36314314 Problem Type 2 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 Active 745331855 Problem History of DVT (deep vein thrombosis) Z86.718 Active 167971062 Problem History of weight loss surgery Z98.84 Active 252614301 Problem Chronic systolic (congestive) heart failure I50.22 Active 993436861 Problem Essential hypertension I10 Active 36910756 Problem Chronic prescription opiate use Z79.891 Active 268571771 Problem Primary osteoarthritis of both knees M17.0 Active 120969447 Problem Chronic pain syndrome G89.4 Active 794307756 Problem Nocturnal hypoxia G47.34 Active 335252143 Problem Obesity, morbid, BMI 40.0-49.9 E66.01 Active 060689183 Problem Tobacco abuse Z72.0 Active 995773670 Problem Macrocytosis D75.89 Active 626258725 Problem Pure hypercholesterolemia E78.00 Active 184787069 Problem Posttraumatic stress disorder F43.10 Active 06120346 Problem Non-ischemic cardiomyopathy I42.9 Active 34654745 Problem Obstructive sleep apnea syndrome G47.33 Active 40349872 Problem Acute right-sided low back pain with right-sided sciatica M54.41 Active 05722833 Problem Gastroesophageal reflux disease, esophagitis presence not specified K21.9 Active 851573428 Problem Chronic obstructive pulmonary disease, unspecified COPD type J44.9 Active 84122327 Problem BMI 45.0-49.9, adult Z68.42 Active 170537737 Problem Mild episode of recurrent major depressive disorder F33.0 Active 442423681 Problem Mood disorder F39 Active 44339222 Problem Primary insomnia F51.01 Active 8551847 ALLERGIES No Information ENCOUNTERS Encounter Location Date Diagnosis [facility] [address], [place] [address] Aug, Chronic pain syndrome G89.4 [facility] [address], [place] [address] Aug, [facility] [address], [place] [address] Aug, Type 2 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 [address] July, Chronic pain syndrome G89.4 [facility] [address], [place] [address] July, [facility] [address], [place] [address] July, Encounter for Medicare annual wellness exam [...] and Chronic systolic congestive heart failure I50.22 [facility] [address], [place] [address] July, Type 2 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 [facility] [address], [place] [address] July, [facility] [id number] [place] [address] July, Urinary hesitancy R39.11 [facility] [address], [place] [address] July, Chronic pain syndrome G89.4 [facility] [id number] [address] Jun, Mass of shoulder region R22.30 [facility] [address] [place] [address] Jun, Mass of shoulder region R22.30 [facility] [id number] [place] [address] 05 Jun, 2018 Chronic pain syndrome G89.4 [facility] [id number] [place] [address] May, Type 2 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 ; Mass of shoulder region R22.30 and Morbid obesity E66.01 [facility] [id number] [place] [address] 07 May, 2018 Chronic pain syndrome G89.4 [facility] [id number] [place] [address] 04 May, 2018 Mood disorder F39 ; Posttraumatic stress disorder F43.10 and Morbid obesity E66.01 [facility] [address] [place] [address] 14 Apr, 2018 Major depressive disorder, recurrent episode, unspecified severity F33.9 [facility] [address] [place] [address] 13 Apr, 2018 Major depressive disorder, recurrent episode, unspecified severity F33.9 [facility] [address], [place] [address] 07 Apr, 2018 Chronic pain syndrome G89.4 [facility] [address] [place] [address] 14 Mar, 2018 Pain in right foot M79.671 ; Type 2 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 ; Chronic pain syndrome G89.4 and BMI 50.0-59.9, adult Z68.43 [facility] [address], [place] [address] Mar, [facility] [id number] [address] Mar, [facility] [id number] [place] [address] Mar, Chronic pain syndrome G89.4 [facility] [id number] [place] [address] Feb, Chronic pain syndrome G89.4 [facility] [id number] [place] [address] Jan, Obstructive sleep apnea syndrome G47.33 [facility] [id number] [place] [address] Jan, Type 2 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 ; Chronic pain syndrome G89.4 ; Gastroesophageal reflux disease, esophagitis presence not specified K21.9 ; Essential hypertension I10 ; Pure hypercholesterolemia E78.00 ; Chronic prescription opiate use Z79.891 ; Obstructive sleep apnea syndrome G47.33 and BMI 50.0-59.9, adult Z68.43 [facility] [id number] [place] [address] Jan, History of weight loss surgery Z98.84 [facility] [id number] [place] [address] 16 Jan, 2018 [facility] [id number] [place] [address] Jan, Chronic pain syndrome G89.4 [facility] [id number] [place] [address] Jan, [facility] [id number] [place] [address] Jan, [facility] [id number] [place] [address] Dec, [facility] [id number] [place] [address] Dec, Chronic pain syndrome G89.4 [facility] [address] [place] [address] 18 Dec, 2017 Injury of left knee, subsequent encounter S89.92XD and Acute pain of left knee M25.562 [facility] [id number] [place] [address] 12 Dec, 2017 [facility] [address] [address] Dec, Injury of left knee, initial encounter S89.92XA and BMI 45.0-49.9, adult Z68.42 [facility] [address] [address] Nov, Chest discomfort R07.89 ; Shortness of breath R06.02 ; Chronic systolic congestive heart failure I50.22 and Type 2 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 [facility] [id number] [place] [address] 20 Nov, 2017 Chronic pain syndrome G89.4 [facility] [id number] [place] [address] Oct, BMI 45.0-49.9, adult Z68.42 ; Type 2 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 ; Chronic pain syndrome G89.4 ; Gastroesophageal reflux disease, esophagitis presence not specified K21.9 ; Decreased pedal pulses R09.89 and Precordial pain R07.2 [facility] [id number] [place] [address] Oct, [facility] [id number] [place] [address] Oct, Mood disorder F39 [facility] [id number] [place] [address] Oct, Mood disorder F39 ; Posttraumatic stress disorder F43.10 and BMI 45.0-49.9, adult Z68.42 [facility] [address] [place] [address] Sep, Primary osteoarthritis of both knees M17.0 and Chronic pain syndrome G89.4 [facility] [id number] [place] [address] Sep, Mood disorder F39 and Posttraumatic stress disorder F43.10 [facility] [id number] [place] [address] Aug, Primary osteoarthritis of both knees M17.0 and Chronic pain syndrome G89.4 [facility] [id number] [place] [address] July, Primary osteoarthritis of both knees M17.0 and Chronic pain syndrome G89.4 [facility] [address] [place] [address] July, Type 2 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 ; Essential hypertension I10 ; Pure hypercholesterolemia E78.0 ; Chronic prescription opiate use Z79.891 ; Tobacco abuse Z72.0 ; Primary osteoarthritis of both knees M17.0 ; Primary insomnia F51.01 and BMI 45.0-49.9, adult Z68.42 [facility] [address] [place] [address] July, Medicare annual wellness visit, initial Z00.00 [...] specified K21.9 and Encounter for immunization Z23 [facility] [id number] [place] [address] July, Primary osteoarthritis of both knees M17.0 and Chronic pain syndrome G89.4 [facility] [address] [place] [address] Jun, Infection of right ear H66.91 ; Wheezing on auscultation R06.2 and BMI 45.0-49.9, adult Z68.42 [facility] [id number] [place] [address] Jun, [facility] [id number] [place] [address] Jun, Primary osteoarthritis of both knees M17.0 and Chronic pain syndrome G89.4 [facility] [id number] [place] [address] May, [facility] [id number] [place] [address] May, BMI 45.0-49.9, adult Z68.42 ; Mood disorder F39 and Posttraumatic stress disorder F43.10 [facility] [id number] [place] [address] May, [facility] [id number] [place] [address] May, Primary osteoarthritis of both knees M17.0 and Chronic pain syndrome G89.4 [facility] [id number] [place] [address] May, Mood disorder F39 [facility] [address] [place] [address] Apr, Type 2 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 [facility] [id number] [place] [address] Apr, [facility] [id number] [place] [address] Apr, Primary osteoarthritis of both knees M17.0 and Chronic pain syndrome G89.4 [facility] [address] [place] [address] Apr, Mood disorder F39 [facility] [id number] [place] [address] Mar, Mood disorder F39 and Posttraumatic stress disorder F43.10 [facility] [id number] [place] [address] Mar, Primary osteoarthritis of both knees M17.0 and Chronic pain syndrome G89.4 [facility] [id number] [place] [address] Feb, Primary osteoarthritis of both knees M17.0 and Chronic pain syndrome G89.4 [facility] [id number] [place] [address] Feb, Mood disorder F39 [facility] [id number] [place] [address] Jan, Type 2 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 ; Primary osteoarthritis of both knees M17.0 ; Mood disorder F39 ; Obesity, morbid, BMI 40.0-49.9 E66.01 ; Chronic prescription opiate use Z79.891 ; Acute suppurative otitis media of both ears without spontaneous rupture of tympanic membranes, recurrence not specified H66.003 and BMI 45.0-49.9, adult Z68.42 [facility] [id number] [place] [address] Jan, Primary osteoarthritis of both knees M17.0 and Chronic pain syndrome G89.4 [facility] [id number] [place] [address] Dec, Mood disorder F39 and Posttraumatic stress disorder F43.10 [facility] [id number] [place] [address] Dec, Primary osteoarthritis of both knees M17.0 and Chronic pain syndrome G89.4 [facility] [address] [place] [address] Nov, Chronic pain syndrome G89.4 [facility] [id number] [place] [address] 15 Nov, 2016 Primary osteoarthritis of both knees M17.0 and Chronic pain syndrome G89.4 [facility] [id number] [place] [address] 13 Nov, 2016 Type 2 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 and Chronic pain syndrome G89.4 [facility] [id number] [place] [address] 12 Nov, 2016 Posttraumatic stress disorder F43.10 and Mood disorder F39 [facility] [id number] [place] [address] 18 Oct, 2016 Chronic pain syndrome G89.4 [facility] [id number] [place] [address] 16 Oct, 2016 Type 2 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 ; BMI 45.0-49.9, adult Z68.42 ; Primary osteoarthritis of both knees M17.0 and Skin lesion L98.9 [facility] [id number] [place] [address] Oct, Chronic pain syndrome G89.4 [facility] [id number] [place] [address] Sep, Chronic pain syndrome G89.4 [facility] [id number] [place] [address] Sep, [facility] [id number] [place] [address] Sep, Chronic pain syndrome G89.4 [facility] [address] [place] [address] Aug, Chronic pain syndrome G89.4 [facility] [id number] [place] [address] Aug, [facility] [id number] [place] [address] Aug, Macrocytosis D75.89 and Pure hypercholesterolemia E78.0 [facility] [id number] [place] [address] Aug, Pure hypercholesterolemia E78.0 [facility] [id number] [place] [address] Aug, Macrocytosis D75.89 [facility] [id number] [place] [address] Aug, Pure hypercholesterolemia E78.0 ; Type 2 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 ; MITCHELL treated with BiPAP G47.33 and Chronic pain syndrome G89.4 [facility] [id number] [place] [address] Aug, [facility] [id number] [place] [address] Aug, Hemorrhoids, unspecified hemorrhoid type K64.9 [facility] [id number] [place] [address] Aug, Chronic pain syndrome G89.4 ; Type 2 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 ; Hemorrhoids, unspecified hemorrhoid type K64.9 ; Tobacco abuse Z72.0 and Primary osteoarthritis of both knees M17.0 [facility] [id number] [place] [address] July, Chronic pain syndrome G89.4 [facility] [id number] [place] [address] July, [facility] [id number] [place] [address] Jun, Chronic pain syndrome G89.4 [facility] [id number] [place] [address] Jun, Chronic pain syndrome G89.4 [facility] [id number] [place] [address] Jun, Severe major depression with psychotic features F32.3 and Posttraumatic stress disorder F43.10 [facility] [address], [place] [address] Jun, Chronic pain syndrome G89.4 [facility] [id number] [place] [address] Jun, [facility] [id number] [place] [address] May, Chronic pain syndrome G89.4 [facility] [id number] [place] [address] May, Tobacco abuse Z72.0 [facility] [id number] [place] [address] May, [facility] [id number] [place] [address] Apr, Chronic pain syndrome G89.4 [facility] [id number] [place] [address] Apr, [facility] [id number] [place] [address] Apr, Right foot pain M79.671 [facility] [address] [place] [address] Mar, Type 2 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 ; MITCHELL treated with BiPAP G47.33 ; Pure hypercholesterolemia E78.0 ; Chronic pain syndrome G89.4 ; Tobacco abuse Z72.0 and Obesity, morbid, BMI 40.0-49.9 E66.01 [facility] [id number] [place] [address] Mar, [facility] [id number] [place] [address] Mar, [facility] [id number] [place] [address] Mar, [facility] [address], [place] [address] Mar, [facility] [address], [place] [address] Mar, [facility] [address], [place] [address] Mar, Severe major depression with psychotic features F32.3 and Posttraumatic stress disorder F43.10 [facility] [id number] [place] [address] Mar, [facility] [id number] [place] [address] Feb, [facility] [id number] [place] [address] Feb, [facility] [id number] [place] [address] Jan, [facility] [id number], [place] [address] Jan, [facility] [id number] [place] [address] Dec, Posttraumatic stress disorder F43.10 and Severe major depression with psychotic features F32.3 [facility] [address], [place] [address] Dec, Type 2 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 ; Chronic pain syndrome G89.4 and Acute right-sided low back pain with right-sided sciatica M54.41 [facility] [address], [place] [address] Dec, [facility] [id number] [place] [address] Dec, [facility] [address], [place] [address] Nov, [facility] [id number] [place] [address] Nov, [facility] [id number] [place] [address] Nov, [facility] [id number] [place] [address] Oct, [facility] [id number] [place] [address] Oct, [facility] [id number] [place] [address] Sep, Dental examination Z01.20 [facility] [id number] [place] [address] Sep, [facility] [id number] [place] [address] Sep, Type 2 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 ; Chronic pain syndrome G89.4 ; Chronic prescription opiate use Z79.891 ; Injury of right index finger, sequela S69.91XS and Anejaculation N50.8 [facility] [id number] [place] [address] Aug, [facility] [id number] [place] [address] Aug, [facility] [id number] [place] [address] Aug, Cellulitis of finger of right hand L03.011 [facility] [id number] [place] [address] July, [facility] [id number] [place] [address] July, [facility] [id number] [place] [address] Jun, Onychomycosis B35.1 [facility] [id number] [place] [address] Jun, Severe major depression with psychotic features F32.3 and Posttraumatic stress disorder F43.10 [facility] [address], [place] [address] Jun, [facility] [address], [place] [address] Jun, [facility] [id number] [place] [address] Jun, [facility] [id number] [place] [address] May, Type 2 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 [facility] [id number] [place] [address] May, Type 2 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 and Urinary hesitancy R39.11 [facility] [address] [place] [address] May, Type 2 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 ; Left hip pain M25.552 and Benign prostatic hyperplasia with lower urinary tract symptoms, unspecified morphology N40.1 [facility] [address] [place] [address] May, [facility] [id number] [place] [phone] Apr, Severe major depression with psychotic features F32.3 and Posttraumatic stress disorder F43.10 [facility] [id number] [address] Apr, [facility] [id number] [place] [id number] Mar, [facility] [address] [address] Mar, Dysuria R30.0 and Urinary hesitancy R39.11 [facility] [id number] [address] Mar, Onychomycosis B35.1 [facility] [id number] [place] [id number] Mar, [facility] [id number] [place] [address] Feb, [facility] [id number] [place] [phone] Jan, [facility] [id number] [place] [phone] Jan, Posttraumatic stress disorder F43.10 and Severe major depression with psychotic features F32.3 [facility] [id number] [place] [phone] Jan, [facility] [id number] [place] [phone] Jan, Chronic pain syndrome G89.4 ; Type 2 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 ; Decreased pedal pulses R09.89 and Paresthesia of both hands R20.2 [facility] [id number] [place] [phone] Dec, Posttraumatic stress disorder F43.10 and Severe major depression with psychotic features F32.3 [facility] [id number] [address] Dec, [facility] [id number] [place] [address] Dec, [facility] [id number] [address] Dec, Onychomycosis B35.1 [facility] [address], [place] [address] Dec, [facility] [address], [place] [address] Dec, [place] [id number] [place] [address] Nov, [place] [address] [id number] [place] [address] Oct, Depression, major, recurrent, moderate 296.32 and Posttraumatic stress disorder 309.81 [place] [id number] [place] [address] Oct, [place] [id number] [place] [address] Oct, [place] [id number] [place] [address] Oct, [place] [id number] [place] [address] Sep, Posttraumatic stress disorder 309.81 and Depression, major, recurrent, moderate 296.32 [place] [id number] [place] [address] Sep, [place] [id number] [place] [address] Sep, Chronic airway obstruction, not elsewhere classified [address] [id number] [place] [address] Sep, Onychomycosis 110.1 and DM neuro manif type II 250.60 [place] [id number] [place] [address] Sep, Chronic pain 338.29 ; Chronic airway obstruction, not elsewhere classified 496 ; Osteoarthritis of knees, bilateral 715.96 and On potassium wasting diuretic therapy V58.69 [place] [id number] [place] [address] Sep, Insect bites 919.4 ; Sinusitis 473.9 and GERD (gastroesophageal reflux disease) 530.81 [place] [id number] [place] [address] Aug, Depression, major, recurrent, moderate 296.32 and Posttraumatic stress disorder 309.81 [facility] [id number] [address] Aug, [facility] [id number] [address] Aug, [facility] [address], [place] [address] Aug, [facility] [id number] [place] [address] July, Major depressive disorder, recurrent episode, moderate 296.32 and Posttraumatic stress disorder 309.81 [facility] [id number] [place] [address] July, [facility] [address], [place] [address] July, [facility] [id number] [place] [address] July, [facility] [address], [place] [address] July, [facility] [address], [place] [address] Jun, [facility] [address], [place] [address] Jun, [facility] [address], [place] [address] May, [facility] [address], [place] [address] May, [facility] [address], [place] [address] May, [facility] [address], [place] [address] May, [facility] [address], [place] [address] May, [facility] [place] [facility] [address] [id number] [place] [address] May, [facility] [place] [facility] [address] [id number] [place] [address] May, [facility] [place] [facility] [address] [facility] [id number] [place] [address] May, [facility] [place] [facility] [address] [id number] [place] [address] May, [facility] [place] [facility] [address] [id number] [place] [address] Apr, 2014 [facility] [place] [facility] [address] [facility] [id number] [place] [address] Apr, 2014 [facility] [place] [facility] [address] [facility] [id number] [place] [address] Apr, 2014 [facility] [place] [facility] [address] [facility] [id number] [place] [address] Apr, 2014 [facility] [place] [facility] [address] [facility] [id number] [place] [address] Apr, 2014 [facility] [place] [facility] [address] [facility] [id number] [place] [address] Apr, [facility] [place] [facility] [address] [facility] [id number] [place] [address] Apr, 2014 [facility] [place] [facility] [address] [facility] [id number], [place] [address] Apr, 2014 [facility] [place] [facility] [address] [id number] [place] [address] Apr, [facility] [place] [facility] [address] [facility] [id number], [place] [address] Mar, [facility] [place] [facility] [address] [facility] [id number], [place] [address] Mar, [facility] [place] [facility] [address] [id number] [place] [address] Mar, [facility] [place] [facility] [address] [id number] [place] [address] Mar, [facility] [place] [facility] [address] [id number] [place] [address] Mar, [facility] [place] [facility] [address] [id number] [place] [address] Mar, [facility] [place] [facility] [address] [id number] [place] [address] Mar, [facility] [place] [facility] [address] [id number] [place] [address] Mar, [facility] [place] [facility] [address] [id number] [place] [address] Mar, [facility] [place] [facility] [address] [id number] [place] [address] Mar, [facility] [place] [facility] [address] [id number] [place] [address] Mar, [facility] [place] [facility] [address] [id number] [place] [address] Mar, [facility] [place] [facility] [address] [id number] [place] [address] Mar, [facility] [place] [facility] [address] [id number] [place] [address] Mar, [facility] [place] [facility] [address] [id number] [place] [address] Mar, [facility] [place] [facility] [address] [id number] [place] [address] Mar, [facility] [place] [facility] [address] [id number] [place] [address] 09 Mar, 2014 [facility] [place] [facility] [address] [id number] [place] [address] Mar, [facility] [place] [facility] [address] [id number] [place] [address] 16 Feb, 2014 [facility] [place] [facility] [address] [id number] [place] [address] 16 Feb, 2014 [facility] [place] [facility] [address] [id number] [place] [address] 15 Feb, 2014 [facility] [place] [facility] [address] [id number] [place] [address] 15 Feb, 2014 [facility] [place] [facility] [address] [id number] [place] [address] Feb, [facility] [place] [facility] [address] [id number] [place] [address] Feb, [facility] [place] [facility] [address] [id number] [place] [address] Jan, [facility] [place] [facility] [address] [id number] [place] [address] Jan, [facility] [place] [facility] [address] [id number] [place] [address] Jan, [facility] [place] [facility] [address] [id number] [place] [address] Jan, [facility] [place] [facility] [address] [id number] [place] [address] Jan, [facility] [place] [facility] [address] [id number] [place] [address] Jan, [facility] [place] [facility] [address] [id number] [place] [address] Jan, [facility] [place] [facility] [address] [id number] [place] [address] Jan, [facility] [place] [facility] [address] [id number] [place] [address] Jan, [facility] [place] [facility] [address] [id number] [place] [address] Jan, [facility] [place] [facility] [address] [id number] [place] [address] Dec, [facility] [place] [facility] [address] [id number] [place] [address] Dec, [facility] [place] [facility] [address] [id number] [place] [address] Dec, [facility] [place] [facility] [address] [id number] [place] [address] Dec, [facility] [place] [facility] [address] [id number] [place] [address] Nov, 2013 [facility] [place] [facility] [address] [id number] [place] [address] Nov, 2013 [facility] [place] [facility] [address] [id number] [place] [address] Nov, 2013 [facility] [place] [facility] [address] [id number] [place] [address] Nov, 2013 [facility] [place] [facility] [address] [id number] [place] [address] Nov, [facility] [place] [facility] [address] [id number] [place] [address] Nov, [facility] [place] [facility] [address] [id number] [place] [address] Oct, [facility] [place] [facility] [address] [id number] [place] [address] Oct, [facility] [place] [facility] [address] [id number] [place] [address] Oct, [facility] [place] [facility] [address] [id number] [place] [address] Oct, [facility] [place] [facility] [address] [id number] [place] [address] Sep, [facility] [place] [facility] [address] [id number] [place] [address] Sep, [facility] [place] [facility] [address] [id number] [place] [address] Sep, [facility] [place] [facility] [address] [id number] [place] [address] Sep, [facility] [place] [facility] [address] [id number] [place] [address] Sep, [facility] [place] [facility] [address] [id number] [place] [address] Sep, [facility] [place] [facility] [address] [id number] [place] [address] July, [facility] [place] [facility] [address] [id number] [place] [address] July, [facility] [place] [facility] [address] [id number] [place] [address] July, [facility] [place] [facility] [address] [id number] [place] [address] July, [facility] [place] [facility] [address] [id number] [place] [address] Jun, [facility] [place] [facility] [address] [id number] [place] [address] Jun, [facility] [place] [facility] [address] [id number] [place] [address] Jun, [facility] [place] [facility] [address] [id number] [place] [address] Jun, [facility] [place] [facility] [address] [id number] [place] [address] Jun, [facility] [place] [facility] [address] [id number] [place] [address] Jun, [facility] [place] [facility] [address] [id number] [place] [address] May, [facility] [place] [facility] [address] [id number] [place] [address] May, [facility] [place] [facility] [address] [id number] [place] [address] Apr, [facility] [place] [facility] [address] [facility] [id number] [place] [address] Apr, [facility] [place] [facility] [address] [id number] [place] [address] Apr, [facility] [place] [facility] [address] [id number] [place] [address] Apr, [facility] [place] [facility] [address] [facility] [id number] [place] [address] Apr, [facility] [place] [facility] [address] [facility] [id number] [place] [address] Apr, [facility] [place] [facility] [address] [facility] [id number] [place] [address] Apr, [facility] [place] [facility] [id number] [address] Mar, [facility] [place] [facility] [address] [facility] [id number] [place] [address] Mar, [facility] [place] [facility] [address] [facility] [id number] [place] [address] Mar, [facility] [place] [facility] [address] [id number] [place] [address] Mar, [facility] [place] [facility] [address] [id number] [place] [address] Mar, [facility] [place] [facility] [address] [facility] [id number] [place] [address] Mar, [facility] [place] [facility] [address] [facility] [id number] [place] [address] Mar, [facility] [place] [facility] [address] [id number] [place] [address] 13 Mar, 2013 [facility] [place] [facility] [address] [id number] [place] [address] Feb, [facility] [place] [facility] [address] [id number] [place] [address] Feb, [facility] [place] [facility] [address] [id number] [place] [address] Feb, [facility] [place] [facility] [address] [id number] [place] [address] Feb, [facility] [place] [facility] [address] [id number] [place] [address] Feb, [facility] [place] [facility] [address] [id number] [place] [address] Feb, [facility] [place] [facility] [address] [id number] [place] [address] Feb, [facility] [place] [facility] [address] [id number] [place] [address] Jan, [facility] [place] [facility] [address] [id number], [place] [address] Jan, [facility] [place] [facility] [address] [id number], [place] [address] Jan, [facility] [place] [facility] [address] [id number], [place] [address] Jan, [facility] [place] [facility] [address] [id number], [place] [address] Jan, [facility] [place] [facility] [address] [id number], [place] [address] Jan, [facility] [place] [facility] [address] [id number] [id number] Jan, [facility] [place] [facility] [address] [id number] [id number] Jan, [facility] [place] [facility] [address] [id number] [place] [address] Dec, [facility] [place] [facility] [address] [id number], [place] [address] Dec, [facility] [place] [facility] [address] [id number], [place] [address] Dec, [facility] [place] [facility] [address] [id number], [place] [address] Dec, [facility] [place] [facility] [address] [id number] [place] [address] Dec, [facility] [place] [facility] [address] [id number], [place] [address] Dec, [facility] [place] [facility] [address] [id number], [place] [address] Dec, [facility] [place] [facility] [address] [id number], [place] [address] Dec, [facility] [place] [facility] [address] [id number], [place] [address] Dec, [facility] [place] [facility] [address] [id number], [place] [address] Dec, [facility] [place] [facility] [address] [id number] [id number] 27 Nov, 2012 [facility] [place] [facility] [address] [id number] [id number] 27 Nov, 2012 [facility] [place] [facility] [address] [id number], [place] [address] 24 Nov, 2012 [facility] [place] [facility] [address] [id number], [place] [address] 20 Nov, 2012 [facility] [place] [facility] [address] [id number], [place] [address] 19 Nov, 2012 [facility] [place] [facility] [address] [id number] [place] [address] 13 Nov, 2012 [facility] [address] [id number] [place] [address] 10 Nov, 2012 [facility] [place] [facility] [address] [id number] [place] [address] Nov, [facility] [place] [facility] [address] [id number] [place] [address] Oct, [facility] [place] [facility] [address] [id number] [place] [address] Oct, [facility] [place] [facility] [address] [id number] [place] [address] Oct, [facility] [place] [facility] [address] [id number] [place] [address] Sep, [facility] [address] [id number] [place] [address] Sep, [facility] [place] [facility] [address] [id number] [place] [address] Sep, [facility] [place] [facility] [address] [id number] [place] [address] Sep, [facility] [place] [facility] [address] [id number] [place] [address] Sep, [facility] [place] [facility] [address] [id number] [place] [address] Aug, [facility] [place] [facility] [address] [id number] [place] [address] Aug, [facility] [place] [facility] [address] [id number] [place] [address] Aug, [facility] [place] [facility] [address] [id number] [place] [address] Aug, [facility] [place] [facility] [address] [id number] [place] [address] Aug, [facility] [place] [facility] [address] [id number] [place] [address] Aug, [facility] [address] [id number] [place] [address] July, [facility] [address] [id number] [place] [address] July, [facility] [address] [id number] [place] [address] July, [facility] [address] [id number] [place] [address] July, [facility] [address] [id number] [place] [address] July, [facility] [address] [id number] [place] [address] July, [facility] [address] [id number] [place] [address] Jun, [facility] [address] [id number] [place] [address] Jun, [facility] [address] [id number] [place] [address] Jun, [facility] [address] [id number] [place] [address] Jun, [facility] [address] [id number] [place] [address] May, [facility] [address] [id number] [place] [address] May, [facility] [place] [facility] [address] [id number] [place] [address] May, [facility] [address] [id number] [place] [address] Apr, [facility] [address] [id number] [place] [address] 21 Mar, 2012 [facility] [place] [facility] [address] [id number] [place] [address] 18 Mar, 2012 [facility] [place] [facility] [address] [id number] [place] [address] 17 Mar, 2012 [facility] [place] [facility] [address] [id number] [place] [address] 16 Mar, 2012 [facility] [place] [facility] [address] [id number] [place] [address] 15 Mar, 2012 [facility] [place] [facility] [address] [id number] [place] [address] Feb, [facility] [place] [facility] [address] [id number] [place] [address] Feb, [facility] [place] [facility] [address] [id number] [place] [address] Feb, [facility] [place] [facility] [address] [id number] [place] [address] Feb, [facility] [place] [facility] [address] [id number] [place] [address] Jan, [facility] [place] [facility] [address] [id number] [place] [address] Jan, [facility] [place] [facility] [address] [id number], [place] [address] Jan, [facility] [place] [facility] [address] [id number], [place] [address] Jan, [facility] [place] [facility] [address] [id number] [place] [address] Dec, [facility] [place] [facility] [address] [id number], [place] [address] Dec, [facility] [place] [facility] [address] [id number] [place] [address] Nov, [facility] [place] [facility] [address] [id number] [place] [address] Oct, [facility] [address] [id number] [place] [address] Oct, [facility] [address] [id number] [place] [address] Oct, [facility] [address] [id number] [place] [address] Oct, [facility] [address] [id number] [place] [address] Oct, [facility] [address] [id number] [place] [address] Sep, [facility] [address] [id number] [place] [address] Sep, [facility] [address] [facility] [id number] [place] [address] Aug, [facility] [address] [place] [id number] Aug, [facility] [address] [id number] [place] [address] Aug, [facility] [address] [facility] [id number] [place] [address] July, [facility] [address] [id number] [place] [address] July, [facility] [address] [id number], [place] [address] Jun, [facility] [address] [id number] [place] [address] Jun, [facility] [address] [id number] [place] [address] 16 Jun, 2011 [facility] [address] [id number] [place] [address] Jun, [facility] [place] [facility] [address] [id number] [place] [address] 15 Apr, 2011 [facility] [place] [facility] [address] [id number] [place] [address] 15 Apr, 2011 [facility] [place] [facility] [address] [id number] [place] [address] 10 Apr, 2011 [facility] [place] [facility] [address] [id number] [place] [address] Mar, [facility] [place] [facility] [address] [id number] [place] [address] Mar, [facility] [place] [facility] [address] [id number] [place] [address] Mar, [facility] [address] [id number] [place] [address] Mar, [facility] [address] [id number] [place] [address] Mar, [facility] [place] [facility] [address] [id number] [place] [address] Jan, [facility] [address] [id number] [place] [address] Jan, [facility] [place] [facility] [address] [id number] [place] [address] Jan, [facility] [place] [facility] [address] [id number] [place] [address] Mar, [facility] [place] [facility] [address] [id number] [place] [address] Mar, [facility] [place] [facility] [address] [id number] [place] [address] Feb, [facility] [place] [facility] [address] [id number] [place] [address] 16 Feb, 2010 [facility] [place] [facility] [address] [id number], [place] [address] 16 Feb, 2010 [facility] [id number], [place] [address] Jan, [facility] [id number], [place] [address] Jan, [facility] [id number], [place] [address] Dec, [facility] [id number], [place] [address] Dec, [facility] [id number], [place] [address] May, [facility] [id number] [place] [address] Apr, [facility] [id number] [place] [address] Feb, [facility] [id number], [place] [address] Feb, [facility] [id number] [place] [address] Jan, [facility] [id number], [place] [address] Jan, [facility] [id number], [place] [address] Jan, [facility] [id number], [place] [address] Jan, [facility] [id number] [address] Jan, IMMUNIZATIONS No Known Immunizations SOCIAL HISTORY [...]
--- OUTSIDE RECORDS SUMMARY | 2018-10-04 06:13 | XMS REPORT ---
Author Author ESTHER CHAVEZ [facility] Address [address] [place] [address] Care Team Providers Care Cyber Security Consultant Name Role Phone KATHYCIARA VILLEGASHANY Unavailable PROBLEMS Type Condition ICD9-CM Code [id number] Code Onset Dates Condition Status SNOMED Code Problem MITCHELL treated with BiPAP G47.33 Active 98321245 Problem Type 2 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 Active 823194892 Problem History of DVT (deep vein thrombosis) Z86.718 Active 946803970 Problem History of weight loss surgery Z98.84 Active 554791930 Problem Chronic systolic (congestive) heart failure I50.22 Active 274767104 Problem Essential hypertension I10 Active 77579393 Problem Chronic prescription opiate use Z79.891 Active 137942641 Problem Primary osteoarthritis of both knees M17.0 Active 533644030 Problem Chronic pain syndrome G89.4 Active 235465205 Problem Nocturnal hypoxia G47.34 Active 595562863 Problem Obesity, morbid, BMI 40.0-49.9 E66.01 Active 128556027 Problem Tobacco abuse Z72.0 Active 822586471 Problem Macrocytosis D75.89 Active 325198433 Problem Pure hypercholesterolemia E78.00 Active 581866373 Problem Posttraumatic stress disorder F43.10 Active 07975351 Problem Non-ischemic cardiomyopathy I42.9 Active 66274714 Problem Obstructive sleep apnea syndrome G47.33 Active 48246011 Problem Acute right-sided low back pain with right-sided sciatica M54.41 Active 82694258 Problem Gastroesophageal reflux disease, esophagitis presence not specified K21.9 Active 486641367 Problem Chronic obstructive pulmonary disease, unspecified COPD type J44.9 Active 74997966 Problem BMI 45.0-49.9, adult Z68.42 Active 922141606 Problem Mild episode of recurrent major depressive disorder F33.0 Active 450870188 Problem Mood disorder F39 Active 10349108 Problem Primary insomnia F51.01 Active 4761743 ALLERGIES No Information ENCOUNTERS Encounter Location Date Diagnosis [facility] [place] [facility] [address], [place] [address] Aug, Chronic pain syndrome G89.4 [facility] [place] [facility] [address], [place] [address] Aug, [facility] [place] [facility] [address], [place] [address] Aug, Type 2 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 [address] July, Chronic pain syndrome G89.4 [facility] [place] [facility] [address], [place] [address] July, [facility] [place] [facility] [address], [place] [address] July, Encounter for Medicare annual wellness exam [...] and Chronic systolic congestive heart failure I50.22 [facility] [place] [facility] [address], [place] [address] July, Type 2 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 [facility] [place] [facility] [address], [place] [address] July, [facility] [place] [facility] [id number] [place] [address] July, Urinary hesitancy R39.11 [facility] [place] [facility] [address], [place] [address] July, Chronic pain syndrome G89.4 [facility] [place] [facility] [address], [place] [address] Jun, Mass of shoulder region R22.30 [facility] [place] [facility] [address] [place] [address] Jun, Mass of shoulder region R22.30 [facility] [place] [facility] [address] [place] [address] 05 Jun, 2018 Chronic pain syndrome G89.4 [facility] [place] [facility] [id number] [place] [address] May, Type 2 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 ; Mass of shoulder region R22.30 and Morbid obesity E66.01 [facility] [id number] [place] [address] 07 May, 2018 Chronic pain syndrome G89.4 [facility] [id number] [place] [address] 04 May, 2018 Mood disorder F39 ; Posttraumatic stress disorder F43.10 and Morbid obesity E66.01 [facility] [address] [place] [address] 14 Apr, 2018 Major depressive disorder, recurrent episode, unspecified severity F33.9 [facility] [address] [place] [address] 13 Apr, 2018 Major depressive disorder, recurrent episode, unspecified severity F33.9 [facility] [address], [place] [address] 07 Apr, 2018 Chronic pain syndrome G89.4 [facility] [place] [facility] [address] [place] [address] 14 Mar, 2018 Pain in right foot M79.671 ; Type 2 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 ; Chronic pain syndrome G89.4 and BMI 50.0-59.9, adult Z68.43 [facility] [address], [place] [address] Mar, [facility] [address] [address] Mar, [facility] [facility] [id number] [place] [address] Mar, Chronic pain syndrome G89.4 [facility] [place] [facility] [id number] [place] [address] Feb, Chronic pain syndrome G89.4 [facility] [place] [facility] [id number] [place] [address] Jan, Obstructive sleep apnea syndrome G47.33 [facility] [id number] [place] [address] Jan, Type 2 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 ; Chronic pain syndrome G89.4 ; Gastroesophageal reflux disease, esophagitis presence not specified K21.9 ; Essential hypertension I10 ; Pure hypercholesterolemia E78.00 ; Chronic prescription opiate use Z79.891 ; Obstructive sleep apnea syndrome G47.33 and BMI 50.0-59.9, adult Z68.43 [facility] [place] [facility] [id number] [place] [address] Jan, History of weight loss surgery Z98.84 [facility] [place] [facility] [id number] [place] [address] 16 Jan, 2018 [facility] [id number] [place] [address] Jan, Chronic pain syndrome G89.4 [facility] [facility] [id number] [place] [address] Jan, [facility] [id number] [place] [address] Jan, [facility] [place] [facility] [id number] [place] [address] Dec, [facility] [place] [facility] [id number] [place] [address] Dec, Chronic pain syndrome G89.4 [facility] [address] [place] [address] 18 Dec, 2017 Injury of left knee, subsequent encounter S89.92XD and Acute pain of left knee M25.562 [facility] [id number] [place] [address] 12 Dec, 2017 [facility] [address] [address] Dec, Injury of left knee, initial encounter S89.92XA and BMI 45.0-49.9, adult Z68.42 [facility] [address] [address] Nov, Chest discomfort R07.89 ; Shortness of breath R06.02 ; Chronic systolic congestive heart failure I50.22 and Type 2 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 [facility] [id number] [place] [address] 20 Nov, 2017 Chronic pain syndrome G89.4 [facility] [id number] [place] [address] Oct, BMI 45.0-49.9, adult Z68.42 ; Type 2 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 ; Chronic pain syndrome G89.4 ; Gastroesophageal reflux disease, esophagitis presence not specified K21.9 ; Decreased pedal pulses R09.89 and Precordial pain R07.2 [facility] [id number] [place] [address] Oct, [facility] [id number] [place] [address] Oct, Mood disorder F39 [facility] [id number] [place] [address] Oct, Mood disorder F39 ; Posttraumatic stress disorder F43.10 and BMI 45.0-49.9, adult Z68.42 [facility] [address] [place] [address] Sep, Primary osteoarthritis of both knees M17.0 and Chronic pain syndrome G89.4 [facility] [place] [facility] [id number] [place] [address] Sep, Mood disorder F39 and Posttraumatic stress disorder F43.10 [facility] [id number] [place] [address] Aug, Primary osteoarthritis of both knees M17.0 and Chronic pain syndrome G89.4 [facility] [place] [facility] [id number] [place] [address] July, Primary osteoarthritis of both knees M17.0 and Chronic pain syndrome G89.4 [facility] [place] [facility] [address] [place] [address] July, Type 2 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 ; Essential hypertension I10 ; Pure hypercholesterolemia E78.0 ; Chronic prescription opiate use Z79.891 ; Tobacco abuse Z72.0 ; Primary osteoarthritis of both knees M17.0 ; Primary insomnia F51.01 and BMI 45.0-49.9, adult Z68.42 [facility] [facility] [address] [place] [address] July, Medicare annual wellness visit, initial Z00.00 [...] specified K21.9 and Encounter for immunization Z23 [facility] [address] [place] [address] July, Primary osteoarthritis of both knees M17.0 and Chronic pain syndrome G89.4 [facility] [address] [place] [address] Jun, Infection of right ear H66.91 ; Wheezing on auscultation R06.2 and BMI 45.0-49.9, adult Z68.42 [facility] [id number] [place] [address] Jun, [facility] [id number] [place] [address] Jun, Primary osteoarthritis of both knees M17.0 and Chronic pain syndrome G89.4 [facility] [facility] [id number] [place] [address] May, [facility] [place] [facility] [id number] [place] [address] May, BMI 45.0-49.9, adult Z68.42 ; Mood disorder F39 and Posttraumatic stress disorder F43.10 [facility] [place] [facility] [id number] [place] [address] May, [facility] [place] [facility] [id number] [place] [address] May, Primary osteoarthritis of both knees M17.0 and Chronic pain syndrome G89.4 [facility] [facility] [id number] [place] [address] May, Mood disorder F39 [facility] [facility] [address] [place] [address] Apr, Type 2 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 [facility] [address] [place] [address] Apr, [facility] [facility] [id number] [place] [address] Apr, Primary osteoarthritis of both knees M17.0 and Chronic pain syndrome G89.4 [facility] [address] [place] [address] Apr, Mood disorder F39 [facility] [address] [place] [address] Mar, Mood disorder F39 and Posttraumatic stress disorder F43.10 [facility] [place] [facility] [id number] [place] [address] Mar, Primary osteoarthritis of both knees M17.0 and Chronic pain syndrome G89.4 [facility] [id number] [place] [address] Feb, Primary osteoarthritis of both knees M17.0 and Chronic pain syndrome G89.4 [facility] [id number] [place] [address] Feb, Mood disorder F39 [facility] [id number] [place] [address] Jan, Type 2 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 ; Primary osteoarthritis of both knees M17.0 ; Mood disorder F39 ; Obesity, morbid, BMI 40.0-49.9 E66.01 ; Chronic prescription opiate use Z79.891 ; Acute suppurative otitis media of both ears without spontaneous rupture of tympanic membranes, recurrence not specified H66.003 and BMI 45.0-49.9, adult Z68.42 [facility] [place] [facility] [id number] [place] [address] Jan, Primary osteoarthritis of both knees M17.0 and Chronic pain syndrome G89.4 [facility] [id number] [place] [address] Dec, Mood disorder F39 and Posttraumatic stress disorder F43.10 [facility] [place] [facility] [id number] [place] [address] Dec, Primary osteoarthritis of both knees M17.0 and Chronic pain syndrome G89.4 [facility] [facility] [address] [place] [address] Nov, Chronic pain syndrome G89.4 [facility] [place] [facility] [id number] [place] [address] 15 Nov, 2016 Primary osteoarthritis of both knees M17.0 and Chronic pain syndrome G89.4 [facility] [facility] [id number] [place] [address] 13 Nov, 2016 Type 2 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 and Chronic pain syndrome G89.4 [facility] [facility] [id number] [place] [address] 12 Nov, 2016 Posttraumatic stress disorder F43.10 and Mood disorder F39 [facility] [place] [facility] [id number] [place] [address] 18 Oct, 2016 Chronic pain syndrome G89.4 [facility] [place] [facility] [id number] [place] [address] 16 Oct, 2016 Type 2 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 ; BMI 45.0-49.9, adult Z68.42 ; Primary osteoarthritis of both knees M17.0 and Skin lesion L98.9 [facility] [facility] [id number] [place] [address] Oct, Chronic pain syndrome G89.4 [facility] [place] [facility] [id number] [place] [address] Sep, Chronic pain syndrome G89.4 [facility] [place] [facility] [id number] [place] [address] Sep, [facility] [place] [facility] [id number] [place] [address] Sep, Chronic pain syndrome G89.4 [facility] [place] [facility] [address] [place] [address] Aug, Chronic pain syndrome G89.4 [facility] [place] [facility] [id number] [place] [address] Aug, [facility] [place] [facility] [id number] [place] [address] Aug, Macrocytosis D75.89 and Pure hypercholesterolemia E78.0 [facility] [place] [facility] [id number] [place] [address] Aug, Pure hypercholesterolemia E78.0 [facility] [place] [facility] [id number] [place] [address] Aug, Macrocytosis D75.89 [facility] [place] [facility] [id number] [place] [address] Aug, Pure hypercholesterolemia E78.0 ; Type 2 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 ; MITCHELL treated with BiPAP G47.33 and Chronic pain syndrome G89.4 [facility] [id number] [place] [address] Aug, [facility] [id number] [place] [address] Aug, Hemorrhoids, unspecified hemorrhoid type K64.9 [facility] [id number] [place] [address] Aug, Chronic pain syndrome G89.4 ; Type 2 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 ; Hemorrhoids, unspecified hemorrhoid type K64.9 ; Tobacco abuse Z72.0 and Primary osteoarthritis of both knees M17.0 [facility] [id number] [place] [address] July, Chronic pain syndrome G89.4 [facility] [place] [facility] [id number] [place] [address] July, [facility] [place] [facility] [id number] [place] [address] Jun, Chronic pain syndrome G89.4 [facility] [place] [facility] [id number] [place] [address] Jun, Chronic pain syndrome G89.4 [facility] [place] [facility] [id number] [place] [address] Jun, Severe major depression with psychotic features F32.3 and Posttraumatic stress disorder F43.10 [facility] [place] [facility] [address], [place] [address] Jun, Chronic pain syndrome G89.4 [facility] [place] [facility] [id number] [place] [address] Jun, [facility] [place] [facility] [id number] [place] [address] May, Chronic pain syndrome G89.4 [facility] [place] [facility] [id number] [place] [address] May, Tobacco abuse Z72.0 [facility] [place] [facility] [id number] [place] [address] May, [facility] [place] [facility] [id number] [place] [address] Apr, Chronic pain syndrome G89.4 [facility] [place] [facility] [id number] [place] [address] Apr, [facility] [place] [facility] [id number] [place] [address] Apr, Right foot pain M79.671 [facility] [place] [facility] [address] [place] [address] Mar, Type 2 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 ; MITCHELL treated with BiPAP G47.33 ; Pure hypercholesterolemia E78.0 ; Chronic pain syndrome G89.4 ; Tobacco abuse Z72.0 and Obesity, morbid, BMI 40.0-49.9 E66.01 [facility] [place] [facility] [id number] [place] [address] Mar, [facility] [place] [facility] [id number] [place] [address] Mar, [facility] [place] [facility] [id number] [place] [address] Mar, [facility] [place] [facility] [address], [place] [address] Mar, [facility] [place] [facility] [address], [place] [address] Mar, [facility] [place] [facility] [address], [place] [address] Mar, Severe major depression with psychotic features F32.3 and Posttraumatic stress disorder F43.10 [facility] [place] [facility] [address] [place] [address] Mar, [facility] [place] [facility] [id number] [place] [address] Feb, [facility] [place] [facility] [id number] [place] [address] Feb, [facility] [place] [facility] [id number] [place] [address] Jan, [facility] [place] [facility] [address] [address] Jan, [facility] [place] [facility] [address] [place] [address] Dec, Posttraumatic stress disorder F43.10 and Severe major depression with psychotic features F32.3 [facility] [place] [facility] [address], [place] [address] Dec, Type 2 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 ; Chronic pain syndrome G89.4 and Acute right-sided low back pain with right-sided sciatica M54.41 [facility] [place] [facility] [address], [place] [address] Dec, [facility] [place] [facility] [id number] [place] [address] Dec, [facility] [place] [facility] [address], [place] [address] Nov, [facility] [place] [facility] [id number] [place] [address] Nov, [facility] [place] [facility] [id number] [place] [address] Nov, [facility] [place] [facility] [id number] [place] [address] Oct, [facility] [place] [facility] [id number] [place] [address] Oct, [facility] [place] [facility] [id number] [place] [address] Sep, Dental examination Z01.20 [facility] [place] [facility] [id number] [place] [address] Sep, [facility] [place] [facility] [id number] [place] [address] Sep, Type 2 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 ; Chronic pain syndrome G89.4 ; Chronic prescription opiate use Z79.891 ; Injury of right index finger, sequela S69.91XS and Anejaculation N50.8 [facility] [place] [facility] [id number] [place] [address] Aug, [facility] [place] [facility] [id number] [place] [address] Aug, [facility] [address] [place] [address] Aug, Cellulitis of finger of right hand L03.011 [facility] [place] [facility] [address] [place] [address] July, [facility] [place] [facility] [id number] [place] [address] July, [facility] [place] [facility] [id number] [place] [address] Jun, Onychomycosis B35.1 [facility] [place] [facility] [id number] [place] [address] Jun, Severe major depression with psychotic features F32.3 and Posttraumatic stress disorder F43.10 [facility] [place] [facility] [id number] [address] Jun, [facility] [id number] [place] [address] Jun, [facility] [id number] [place] [id number] Jun, [facility] [id number] [place] [address] May, Type 2 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 [facility] [id number] [place] [address] May, Type 2 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 and Urinary hesitancy R39.11 [facility] [id number] [place] [address] May, Type 2 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 ; Left hip pain M25.552 and Benign prostatic hyperplasia with lower urinary tract symptoms, unspecified morphology N40.1 [facility] [id number] [place] [id number] May, [facility] [id number] [place] [address] Apr, Severe major depression with psychotic features F32.3 and Posttraumatic stress disorder F43.10 [facility] [id number] [place] [address] Apr, [facility] [id number] [place] [id number] Mar, [facility] [id number], [place] [address] Mar, Dysuria R30.0 and Urinary hesitancy R39.11 [facility] [id number] [address] Mar, Onychomycosis B35.1 [facility] [id number] [place] [address] Mar, [facility] [id number] [place] [address] Feb, [facility] [id number] [place] [id number] Jan, [facility] [id number] [place], [place] [address] Jan, Posttraumatic stress disorder F43.10 and Severe major depression with psychotic features F32.3 [facility] [place] [facility] [id number] [place] [address] Jan, [facility] [place] [facility] [id number] [place] [address] Jan, Chronic pain syndrome G89.4 ; Type 2 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 ; Decreased pedal pulses R09.89 and Paresthesia of both hands R20.2 [facility] [place] [facility] [id number] [place] [address] Dec, Posttraumatic stress disorder F43.10 and Severe major depression with psychotic features F32.3 [facility] [place] [facility] [address] [address] Dec, [facility] [place] [facility] [address], [place] [address] Dec, [facility] [place] [facility] [address], [place] [address] Dec, Onychomycosis B35.1 [facility] [place] [facility] [address], [place] [address] Dec, [facility] [place] [facility] [address], [place] [address] Dec, [place] [id number] [place] [address] Nov, [place] [id number] [place] [address] Oct, Depression, major, recurrent, moderate 296.32 and Posttraumatic stress disorder 309.81 [place] [id number] [place] [address] Oct, [place] [id number] [place] [address] Oct, [place] [id number] [place] [address] Oct, [place] [id number] [place] [address] Sep, Posttraumatic stress disorder 309.81 and Depression, major, recurrent, moderate 296.32 [place] [id number] [place] [address] Sep, [place] [id number] [place] [address] Sep, Chronic airway obstruction, not elsewhere classified [id number] [place] [address] Sep, Onychomycosis 110.1 and DM neuro manif type II 250.60 [id number] [place] [address] Sep, Chronic pain 338.29 ; Chronic airway obstruction, not elsewhere classified 496 ; Osteoarthritis of knees, bilateral 715.96 and On potassium wasting diuretic therapy V58.69 [id number] [place] [address] Sep, Insect bites 919.4 ; Sinusitis 473.9 and GERD (gastroesophageal reflux disease) 530.81 [id number] [place] [address] Aug, Depression, major, recurrent, moderate 296.32 and Posttraumatic stress disorder 309.81 [facility] [place] [facility] [id number] [address] Aug, [facility] [place] [facility] [id number], [place] [address] Aug, [facility] [place] [facility] [address], [place] [address] Aug, [facility] [place] [facility] [id number] [place] [address] July, Major depressive disorder, recurrent episode, moderate 296.32 and Posttraumatic stress disorder 309.81 [facility] [place] [facility] [id number] [place] [address] July, [facility] [place] [facility] [address], [place] [address] July, [facility] [place] [facility] [id number] [place] [address] July, [facility] [place] [facility] [address], [place] [address] July, [facility] [place] [facility] [address], [place] [address] Jun, [facility] [place] [facility] [address], [place] [address] Jun, [facility] [place] [facility] [address], [place] [address] May, [facility] [place] [facility] [address], [place] [address] May, [facility] [address], [place] [address] May, [facility] [place] [facility] [address], [place] [address] May, [facility] [place] [facility] [address], [place] [address] May, [facility] [place] [facility] [address] [id number] [place] [address] May, [facility] [place] [facility] [address] [id number] [place] [address] May, [facility] [place] [facility] [address] [facility] [id number] [place] [address] May, [facility] [place] [facility] [address] [id number] [place] [address] May, [facility] [place] [facility] [address] [id number] [place] [address] Apr, 2014 [facility] [place] [facility] [address] [facility] [id number] [place] [address] Apr, 2014 [facility] [place] [facility] [address] [facility] [id number] [place] [address] Apr, 2014 [facility] [place] [facility] [address] [facility] [id number] [place] [address] Apr, 2014 [facility] [place] [facility] [address] [facility] [id number] [place] [address] Apr, 2014 [facility] [place] [facility] [address] [facility] [id number] [place] [address] Apr, [facility] [place] [facility] [address] [facility] [id number] [place] [address] Apr, 2014 [facility] [place] [facility] [address] [facility] [id number], [place] [address] Apr, 2014 [facility] [place] [facility] [address] [id number] [place] [address] Apr, [facility] [place] [facility] [address] [facility] [id number], [place] [address] Mar, [facility] [place] [facility] [address] [facility] [id number], [place] [address] Mar, [facility] [place] [facility] [address] [id number] [place] [address] Mar, [facility] [place] [facility] [address] [id number] [place] [address] Mar, [facility] [place] [facility] [address] [id number] [place] [address] Mar, [facility] [place] [facility] [address] [id number] [place] [address] Mar, [facility] [place] [facility] [address] [id number] [place] [address] Mar, [facility] [place] [facility] [address] [id number] [place] [address] Mar, [facility] [place] [facility] [address] [id number] [place] [address] Mar, [facility] [place] [facility] [address] [id number] [place] [address] Mar, [facility] [place] [facility] [address] [id number] [place] [address] Mar, [facility] [place] [facility] [address] [id number] [place] [address] Mar, [facility] [place] [facility] [address] [id number] [place] [address] Mar, [facility] [place] [facility] [address] [id number] [place] [address] Mar, [facility] [place] [facility] [address] [id number] [place] [address] Mar, [facility] [place] [facility] [address] [id number] [place] [address] Mar, [facility] [place] [facility] [address] [id number] [place] [address] 09 Mar, 2014 [facility] [place] [facility] [address] [id number] [place] [address] Mar, [facility] [place] [facility] [address] [id number] [place] [address] 16 Feb, 2014 [facility] [place] [facility] [address] [id number] [place] [address] 16 Feb, 2014 [facility] [place] [facility] [address] [id number] [place] [address] 15 Feb, 2014 [facility] [place] [facility] [address] [id number] [place] [address] 15 Feb, 2014 [facility] [place] [facility] [address] [id number] [place] [address] Feb, [facility] [place] [facility] [address] [id number] [place] [address] Feb, [facility] [place] [facility] [address] [id number] [place] [address] Jan, [facility] [place] [facility] [address] [id number] [place] [address] Jan, [facility] [place] [facility] [address] [id number] [place] [address] Jan, [facility] [place] [facility] [address] [id number] [place] [address] Jan, [facility] [place] [facility] [address] [id number] [place] [address] Jan, [facility] [place] [facility] [address] [id number] [place] [address] Jan, [facility] [place] [facility] [address] [id number] [place] [address] Jan, [facility] [place] [facility] [address] [id number] [place] [address] Jan, [facility] [place] [facility] [address] [id number] [place] [address] Jan, [facility] [place] [facility] [address] [id number] [place] [address] Jan, [facility] [place] [facility] [address] [id number] [place] [address] Dec, [facility] [place] [facility] [address] [id number] [place] [address] Dec, [facility] [place] [facility] [address] [id number] [place] [address] Dec, [facility] [place] [facility] [address] [id number] [place] [address] Dec, [facility] [place] [facility] [address] [id number] [place] [address] Nov, 2013 [facility] [place] [facility] [address] [id number] [place] [address] Nov, 2013 [facility] [place] [facility] [address] [id number] [place] [address] Nov, 2013 [facility] [place] [facility] [address] [id number] [place] [address] Nov, 2013 [facility] [place] [facility] [address] [id number] [place] [address] Nov, [facility] [place] [facility] [address] [id number] [place] [address] Nov, [facility] [place] [facility] [address] [id number] [place] [address] Oct, [facility] [place] [facility] [address] [id number] [place] [address] Oct, [facility] [place] [facility] [address] [id number] [place] [address] Oct, [facility] [place] [facility] [address] [id number] [place] [address] Oct, [facility] [place] [facility] [address] [id number] [place] [address] Sep, [facility] [place] [facility] [address] [id number] [place] [address] Sep, [facility] [place] [facility] [address] [id number] [place] [address] Sep, [facility] [place] [facility] [address] [id number] [place] [address] Sep, [facility] [place] [facility] [address] [id number] [place] [address] Sep, [facility] [place] [facility] [address] [id number] [place] [address] Sep, [facility] [place] [facility] [address] [id number] [place] [address] July, [facility] [place] [facility] [address] [id number] [place] [address] July, [facility] [place] [facility] [address] [id number] [place] [address] July, [facility] [place] [facility] [address] [id number] [place] [address] July, [facility] [place] [facility] [address] [id number] [place] [address] Jun, [facility] [place] [facility] [address] [id number] [place] [address] Jun, [facility] [place] [facility] [address] [id number] [place] [address] Jun, [facility] [place] [facility] [address] [id number] [place] [address] Jun, [facility] [place] [facility] [address] [id number] [place] [address] Jun, [facility] [place] [facility] [address] [id number] [place] [address] Jun, [facility] [place] [facility] [address] [id number] [place] [address] May, [facility] [place] [facility] [address] [id number] [place] [address] May, [facility] [place] [facility] [address] [id number] [place] [address] Apr, [facility] [place] [facility] [address] [facility] [id number] [place] [address] Apr, [facility] [place] [facility] [address] [id number] [place] [address] Apr, [facility] [place] [facility] [address] [id number] [place] [address] Apr, [facility] [place] [facility] [address] [facility] [id number] [place] [address] Apr, [facility] [place] [facility] [address] [facility] [id number] [place] [address] Apr, [facility] [place] [facility] [address] [facility] [id number] [place] [address] Apr, [facility] [place] [facility] [id number] [place] [address] Mar, [facility] [place] [facility] [address] [facility] [id number] [place] [address] Mar, [facility] [place] [facility] [address] [facility] [id number] [place] [address] Mar, [facility] [place] [facility] [address] [id number] [place] [address] Mar, [facility] [place] [facility] [address] [id number] [place] [address] Mar, [facility] [place] [facility] [address] [facility] [id number] [place] [address] Mar, [facility] [place] [facility] [address] [facility] [id number] [place] [address] Mar, [facility] [place] [facility] [address] [id number] [place] [address] 13 Mar, 2013 [facility] [place] [facility] [address] [id number] [place] [address] Feb, [facility] [place] [facility] [address] [id number] [place] [address] Feb, [facility] [place] [facility] [address] [id number] [place] [address] Feb, [facility] [place] [facility] [address] [id number] [place] [address] Feb, [facility] [place] [facility] [address] [id number] [place] [address] Feb, [facility] [place] [facility] [address] [id number] [place] [address] Feb, [facility] [place] [facility] [address] [id number] [place] [address] Feb, [facility] [place] [facility] [address] [id number] [place] [address] Jan, [facility] [place] [facility] [address] [id number], [place] [address] Jan, [facility] [place] [facility] [address] [id number], [place] [address] Jan, [facility] [place] [facility] [address] [id number], [place] [address] Jan, [facility] [place] [facility] [address] [id number], [place] [address] Jan, [facility] [place] [facility] [address] [id number], [place] [address] Jan, [facility] [place] [facility] [address] [id number] [address] Jan, [facility] [place] [facility] [address] [id number] [id number] Jan, [facility] [place] [facility] [address] [id number] [place] [address] Dec, [facility] [place] [facility] [address] [id number], [place] [address] Dec, [facility] [place] [facility] [address] [id number], [place] [address] Dec, [facility] [place] [facility] [address] [id number], [place] [address] Dec, [facility] [place] [facility] [address] [id number] [place] [address] Dec, [facility] [place] [facility] [address] [id number], [place] [address] Dec, [facility] [place] [facility] [address] [id number], [place] [address] Dec, [facility] [place] [facility] [address] [id number], [place] [address] Dec, [facility] [place] [facility] [address] [id number], [place] [address] Dec, [facility] [place] [facility] [address] [id number], [place] [address] Dec, [facility] [place] [facility] [address] [id number][place] [id number] 27 Nov, 2012 [facility] [place] [facility] [address] [id number][place] [id number] 27 Nov, 2012 [facility] [place] [facility] [address] [id number], [place] [address] 24 Nov, 2012 [facility] [place] [facility] [address] [id number], [place] [address] 20 Nov, 2012 [facility] [place] [facility] [address] [id number], [place] [address] 19 Nov, 2012 [facility] [place] [facility] [address] [id number] [place] [address] 13 Nov, 2012 [facility] [address] [id number] [place] [address] 10 Nov, 2012 [facility] [place] [facility] [address] [id number] [place] [address] Nov, [facility] [place] [facility] [address] [id number] [place] [address] Oct, [facility] [place] [facility] [address] [id number] [place] [address] Oct, [facility] [place] [facility] [address] [id number] [place] [address] Oct, [facility] [place] [facility] [address] [id number] [place] [address] Sep, [facility] [address] [id number] [place] [address] Sep, [facility] [place] [facility] [address] [id number] [place] [address] Sep, [facility] [place] [facility] [address] [id number] [place] [address] Sep, [facility] [place] [facility] [address] [id number] [place] [address] Sep, [facility] [place] [facility] [address] [id number] [place] [address] Aug, [facility] [place] [facility] [address] [id number] [place] [address] Aug, [facility] [place] [facility] [address] [id number] [place] [address] Aug, [facility] [place] [facility] [address] [id number] [place] [address] Aug, [facility] [place] [facility] [address] [id number] [place] [address] Aug, [facility] [place] [facility] [address] [id number] [place] [address] Aug, [facility] [address] [id number] [place] [address] July, [facility] [address] [id number] [place] [address] July, [facility] [address] [id number] [place] [address] July, [facility] [address] [id number] [place] [address] July, [facility] [address] [id number] [place] [address] July, [facility] [address] [id number] [place] [address] July, [facility] [address] [id number] [place] [address] Jun, [facility] [address] [id number] [place] [address] Jun, [facility] [address] [id number] [place] [address] Jun, [facility] [address] [id number] [place] [address] Jun, [facility] [address] [id number] [place] [address] May, [facility] [address] [id number] [place] [address] May, [facility] [place] [facility] [address] [id number] [place] [address] May, [facility] [address] [id number] [place] [address] Apr, [facility] [address] [id number] [place] [address] 21 Mar, 2012 [facility] [place] [facility] [address] [id number] [place] [address] 18 Mar, 2012 [facility] [place] [facility] [address] [id number] [place] [address] 17 Mar, 2012 [facility] [place] [facility] [address] [id number] [place] [address] 16 Mar, 2012 [facility] [place] [facility] [address] [id number] [place] [address] 15 Mar, 2012 [facility] [place] [facility] [address] [id number] [place] [address] Feb, [facility] [place] [facility] [address] [id number] [place] [address] Feb, [facility] [place] [facility] [address] [id number] [place] [address] Feb, [facility] [place] [facility] [address] [id number] [place] [address] Feb, [facility] [place] [facility] [address] [id number] [place] [address] Jan, [facility] [place] [facility] [address] [id number] [place] [address] Jan, [facility] [place] [facility] [address] [id number], [place] [address] Jan, [facility] [place] [facility] [address] [id number], [place] [address] Jan, [facility] [place] [facility] [address] [id number] [place] [address] Dec, [facility] [place] [facility] [address] [id number], [place] [address] Dec, [facility] [place] [facility] [address] [id number] [place] [address] Nov, [facility] [place] [facility] [address] [id number] [place] [address] Oct, [facility] [address] [id number] [place] [address] Oct, [facility] [address] [id number] [place] [address] Oct, [facility] [address] [id number] [place] [address] Oct, [facility] [address] [id number] [place] [address] Oct, [facility] [address] [id number] [place] [address] Sep, [facility] [address] [id number] [place] [address] Sep, [facility] [address] [facility] [id number] [place] [address] Aug, [facility] [address] [place] [id number] Aug, [facility] [address] [id number] [place] [address] Aug, [facility] [address] [facility] [id number] [place] [address] July, [facility] [address] [id number] [place] [address] July, [facility] [address] [id number], [place] [address] Jun, [facility] [address] [id number] [place] [address] Jun, [facility] [address] [id number] [place] [address] 16 Jun, 2011 [facility] [address] [id number] [place] [address] Jun, [facility] [place] [facility] [address] [id number] [place] [address] 15 Apr, 2011 [facility] [place] [facility] [address] [id number] [place] [address] 15 Apr, 2011 [facility] [place] [facility] [address] [id number] [place] [address] 10 Apr, 2011 [facility] [place] [facility] [address] [id number] [place] [address] Mar, [facility] [place] [facility] [address] [id number] [place] [address] Mar, [facility] [place] [facility] [address] [id number] [place] [address] Mar, [facility] [address] [id number] [place] [address] Mar, [facility] [address] [id number] [place] [address] Mar, [facility] [place] [facility] [address] [id number] [place] [address] Jan, [facility] [address] [id number] [place] [address] Jan, [facility] [place] [facility] [address] [id number] [place] [address] Jan, [facility] [place] [facility] [address] [id number] [place] [address] Mar, [facility] [place] [facility] [address] [id number] [place] [address] Mar, [facility] [place] [facility] [address] [id number] [place] [address] Feb, [facility] [place] [facility] [address] [id number] [place] [address] 16 Feb, 2010 [facility] [place] [facility] [address] [id number], [place] [address] 16 Feb, 2010 [facility] [place] [facility] [address] [id number], [place] [address] 17 Jan, 2010 [facility] [place] [facility] [id number], [place] [address] 17 Jan, 2010 [facility] [place] [facility] [id number], [place] [address] 19 Dec, 2009 [facility] [place] [facility] [address] [facility] [id number], [place] [address] Dec, [facility] [place] [facility] [id number], [place] [address] May, [facility] [place] [facility] [id number] [place] [address] 10 Apr, 2009 [facility] [place] [facility] [id number], [place] [address] Feb, [facility] [place] [facility] [id number], [place] [address] Feb, [facility] [place] [facility] [id number] [place] [address] 30 Jan, 2009 [facility] [place] [facility] [id number], [place] [address] Jan, [facility] [place] [facility] [id number], [place] [address] Jan, [facility] [place] [facility] [id number], [place] [address] Jan, [facility] [place] [facility] [address] [id number], [place] [address] Jan, IMMUNIZATIONS No Known Immunizations SOCIAL HISTORY Never Assessed REASON FOR VISIT PLAN OF CARE VITAL SIGNS Height 66 in 2014-05-03 Weight 275.1 lbs 2014-05-03 Temperature 96.5 degrees Fahrenheit 2014-05-03 Heart Rate 72 bpm 2014-05-03 Respiratory Rate 22 2014-05-03 Blood pressure systolic 126 mmHg 2014-05-03 Blood pressure diastolic 84 mmHg 2014-05-03 MEDICATIONS Unknown Medications RESULTS No Results PROCEDURES [...] Hospitalization History ED then admitted to [facility] stepdown-chest pain 02/2010 Hospitalization History Possible DVT-sono negative 06/2010 Hospitalization History cellulitis to bilat legs
--- OUTSIDE RECORDS SUMMARY | 2018-10-04 06:14 | XMS REPORT ---
Author Author PARI Garcia [facility] Address Unknown Care Team Providers Care Computer Engineering Professor Name Role Phone PARI Garcia Unavailable PROBLEMS Type Condition ICD9-CM Code XLE42-CZ Code Onset Dates Condition Status SNOMED Code Problem Nocturnal hypoxia G47.34 Active 943105570 Problem Non-ischemic cardiomyopathy I42.9 Active 25885797 Problem Primary osteoarthritis of both knees M17.0 Active 232254219 Problem Obesity, morbid, BMI 40.0-49.9 E66.01 Active 129136331 Problem Posttraumatic stress disorder F43.10 Active 61887187 Problem History of DVT (deep vein thrombosis) Z86.718 Active 210736707 Problem History of weight loss surgery Z98.84 Active 730824469 Problem Chronic systolic (congestive) heart failure I50.22 Active 635633302 Problem Essential hypertension I10 Active 35739226 Problem Type 2 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 Active 161515729 Problem Chronic pain syndrome G89.4 Active 860107298 Problem Acute right-sided low back pain with right-sided sciatica M54.41 Active 72487787 Problem Chronic prescription opiate use Z79.891 Active 562821895 Problem Tobacco abuse Z72.0 Active 952450006 Problem Macrocytosis D75.89 Active 469115513 Problem BMI 45.0-49.9, adult Z68.42 Active 440722719 Problem Pure hypercholesterolemia E78.00 Active 354304496 Problem Gastroesophageal reflux disease, esophagitis presence not specified K21.9 Active 964280952 Problem Obstructive sleep apnea syndrome G47.33 Active 93814890 Problem Chronic obstructive pulmonary disease, unspecified COPD type J44.9 Active 40810300 Problem MITCHELL treated with BiPAP G47.33 Active 79028905 Problem Mild episode of recurrent major depressive disorder F33.0 Active 807324500 Problem Mood disorder F39 Active 11856978 Problem Primary insomnia F51.01 Active 8012365 Problem Chronic systolic congestive heart failure I50.22 Active 945086430 ALLERGIES No Information ENCOUNTERS Encounter Location Date Diagnosis [facility] [address], [place] [address] Aug, Chronic pain syndrome G89.4 [facility] [address] [address] Aug, [facility] [address] [address] Aug, Type 2 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 [address] July, Chronic pain syndrome G89.4 [facility] [address] [address] July, [facility] [address] [address] July, Encounter for Medicare annual wellness exam [...] and Chronic systolic congestive heart failure I50.22 [facility] [id number] [address] July, Type 2 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 [facility] [address], [place] [address] July, [facility] [id number] [address] July, Urinary hesitancy R39.11 [facility] [address], [place] [address] July, Chronic pain syndrome G89.4 [facility] [id number] [place] [address] Jun, Mass of shoulder region R22.30 [facility] [id number] [place] [address] Jun, Mass of shoulder region R22.30 [facility] [id number] [place] [address] 05 Jun, 2018 Chronic pain syndrome G89.4 [facility] [id number] [place] [address] 18 May, 2018 Type 2 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 ; Mass of shoulder region R22.30 and Morbid obesity E66.01 [facility] [id number] [place] [address] 07 May, 2018 Chronic pain syndrome G89.4 [facility] [id number] [place] [address] 04 May, 2018 Mood disorder F39 ; Posttraumatic stress disorder F43.10 and Morbid obesity E66.01 [facility] [id number] [place] [address] 14 Apr, 2018 Major depressive disorder, recurrent episode, unspecified severity F33.9 [facility] [id number] [place] [address] 13 Apr, 2018 Major depressive disorder, recurrent episode, unspecified severity F33.9 [facility] [id number] [place] [address] 07 Apr, 2018 Chronic pain syndrome G89.4 [facility] [id number] [place] [address] 14 Mar, 2018 Pain in right foot M79.671 ; Type 2 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 ; Chronic pain syndrome G89.4 and BMI 50.0-59.9, adult Z68.43 [facility] [id number] [place] [address] Mar, [facility] [address], [place] [address] Mar, [facility] [id number] [place] [address] Mar, Chronic pain syndrome G89.4 [facility] [id number] [place] [address] Feb, Chronic pain syndrome G89.4 [facility] [id number] [place] [address] 30 Jan, 2018 Obstructive sleep apnea syndrome G47.33 [facility] [id number] [place] [address] 26 Jan, 2018 Type 2 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 ; Chronic pain syndrome G89.4 ; Gastroesophageal reflux disease, esophagitis presence not specified K21.9 ; Essential hypertension I10 ; Pure hypercholesterolemia E78.00 ; Chronic prescription opiate use Z79.891 ; Obstructive sleep apnea syndrome G47.33 and BMI 50.0-59.9, adult Z68.43 [facility] [id number] [place] [address] 20 Jan, 2018 History of weight loss surgery Z98.84 [facility] [id number] [place] [address] 16 Jan, 2018 [facility] [id number] [place] [address] Jan, Chronic pain syndrome G89.4 [facility] [id number] [place] [address] Jan, [facility] [id number] [place] [address] Jan, [facility] [id number] [place] [address] Dec, [facility] [id number] [place] [address] Dec, Chronic pain syndrome G89.4 [facility] [id number] [place] [address] Dec, Injury of left knee, subsequent encounter S89.92XD and Acute pain of left knee M25.562 [facility] [id number] [place] [address] Dec, [place] [address] [address] Dec, Injury of left knee, initial encounter S89.92XA and BMI 45.0-49.9, adult Z68.42 [place] [facility] [address] [address] Nov, Chest discomfort R07.89 ; Shortness of breath R06.02 ; Chronic systolic congestive heart failure I50.22 and Type 2 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 [facility] [id number] [place] [address] Nov, Chronic pain syndrome G89.4 [facility] [facility] [address] [address] Oct, BMI 45.0-49.9, adult Z68.42 ; Type 2 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 ; Chronic pain syndrome G89.4 ; Gastroesophageal reflux disease, esophagitis presence not specified K21.9 ; Decreased pedal pulses R09.89 and Precordial pain R07.2 [facility] [id number] [place] [address] Oct, [place] [facility] [id number] [place] [address] Oct, Mood disorder F39 [facility] [facility] [id number] [place] [address] Oct, Mood disorder F39 ; Posttraumatic stress disorder F43.10 and BMI 45.0-49.9, adult Z68.42 [place] [facility] [address], [place] [address] Sep, Primary osteoarthritis of both knees M17.0 and Chronic pain syndrome G89.4 [facility] [address], [place] [address] Sep, Mood disorder F39 and Posttraumatic stress disorder F43.10 [facility] [id number] [place] [address] Aug, Primary osteoarthritis of both knees M17.0 and Chronic pain syndrome G89.4 [facility] [id number] [place] [address] July, Primary osteoarthritis of both knees M17.0 and Chronic pain syndrome G89.4 [facility] [id number] [place] [address] July, Type 2 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 ; Essential hypertension I10 ; Pure hypercholesterolemia E78.0 ; Chronic prescription opiate use Z79.891 ; Tobacco abuse Z72.0 ; Primary osteoarthritis of both knees M17.0 ; Primary insomnia F51.01 and BMI 45.0-49.9, adult Z68.42 [facility] [id number] [place] [address] July, Medicare annual wellness visit, initial Z00.00 [...] specified K21.9 and Encounter for immunization Z23 [facility] [address], [place] [address] July, Primary osteoarthritis of both knees M17.0 and Chronic pain syndrome G89.4 [facility] [id number] [place] [address] Jun, Infection of right ear H66.91 ; Wheezing on auscultation R06.2 and BMI 45.0-49.9, adult Z68.42 [facility] [id number] [place] [address] Jun, [facility] [address] [address] Jun, Primary osteoarthritis of both knees M17.0 and Chronic pain syndrome G89.4 [facility] [id number] [place] [address] May, [facility] [address] [address] May, BMI 45.0-49.9, adult Z68.42 ; Mood disorder F39 and Posttraumatic stress disorder F43.10 [facility] [id number] [place] [address] May, [facility] [id number] [place] [address] May, Primary osteoarthritis of both knees M17.0 and Chronic pain syndrome G89.4 [facility] [id number] [place] [address] May, Mood disorder F39 [facility] [id number] [place] [address] Apr, Type 2 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 [facility] [id number] [place] [address] Apr, [facility] [id number] [place] [address] Apr, Primary osteoarthritis of both knees M17.0 and Chronic pain syndrome G89.4 [facility] [id number] [place] [address] Apr, Mood disorder F39 [facility] [id number] [place] [address] Mar, Mood disorder F39 and Posttraumatic stress disorder F43.10 [facility] [id number] [place] [address] Mar, Primary osteoarthritis of both knees M17.0 and Chronic pain syndrome G89.4 [facility] [id number] [place] [address] Feb, Primary osteoarthritis of both knees M17.0 and Chronic pain syndrome G89.4 [facility] [id number] [place] [address] Feb, Mood disorder F39 [facility] [id number] [place] [address] Jan, Type 2 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 ; Primary osteoarthritis of both knees M17.0 ; Mood disorder F39 ; Obesity, morbid, BMI 40.0-49.9 E66.01 ; Chronic prescription opiate use Z79.891 ; Acute suppurative otitis media of both ears without spontaneous rupture of tympanic membranes, recurrence not specified H66.003 and BMI 45.0-49.9, adult Z68.42 [facility] [id number] [place] [address] Jan, Primary osteoarthritis of both knees M17.0 and Chronic pain syndrome G89.4 [facility] [id number] [place] [address] Dec, Mood disorder F39 and Posttraumatic stress disorder F43.10 [facility] [id number] [place] [address] Dec, Primary osteoarthritis of both knees M17.0 and Chronic pain syndrome G89.4 [facility] [id number] [place] [address] Nov, Chronic pain syndrome G89.4 [facility] [address], [place] [address] 15 Nov, 2016 Primary osteoarthritis of both knees M17.0 and Chronic pain syndrome G89.4 [facility] [id number] [place] [address] 13 Nov, 2016 Type 2 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 and Chronic pain syndrome G89.4 [facility] [id number] [place] [address] 12 Nov, 2016 Posttraumatic stress disorder F43.10 and Mood disorder F39 [facility] [id number] [place] [address] 18 Oct, 2016 Chronic pain syndrome G89.4 [facility] [id number] [place] [address] 16 Oct, 2016 Type 2 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 ; BMI 45.0-49.9, adult Z68.42 ; Primary osteoarthritis of both knees M17.0 and Skin lesion L98.9 [facility] [id number] [place] [address] Oct, Chronic pain syndrome G89.4 [facility] [id number] [place] [address] Sep, Chronic pain syndrome G89.4 [facility] [address], [place] [address] Sep, [facility] [id number] [place] [address] Sep, Chronic pain syndrome G89.4 [facility] [id number] [place] [address] Aug, Chronic pain syndrome G89.4 [facility] [id number] [place] [address] Aug, [facility] [id number] [place] [address] Aug, Macrocytosis D75.89 and Pure hypercholesterolemia E78.0 [place] [id number] [place] [address] Aug, Pure hypercholesterolemia E78.0 [facility] [id number] [place] [address] Aug, Macrocytosis D75.89 [place] [id number] [place] [address] Aug, Pure hypercholesterolemia E78.0 ; Type 2 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 ; MITCHELL treated with BiPAP G47.33 and Chronic pain syndrome G89.4 [place] [id number] [place] [address] Aug, [place] [id number] [place] [address] Aug, Hemorrhoids, unspecified hemorrhoid type K64.9 [place] [id number] [place] [address] Aug, Chronic pain syndrome G89.4 ; Type 2 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 ; Hemorrhoids, unspecified hemorrhoid type K64.9 ; Tobacco abuse Z72.0 and Primary osteoarthritis of both knees M17.0 [place] [id number] [place] [address] July, Chronic pain syndrome G89.4 [facility] [id number] [place] [address] July, [place] [id number] [place] [address] Jun, Chronic pain syndrome G89.4 [facility] [id number] [place] [address] Jun, Chronic pain syndrome G89.4 [place] [id number] [place] [address] Jun, Severe major depression with psychotic features F32.3 and Posttraumatic stress disorder F43.10 [facility] [id number] [place] [address] Jun, Chronic pain syndrome G89.4 [facility] [id number] [place] [address] Jun, [facility] [id number] [place] [address] May, Chronic pain syndrome G89.4 [facility] [id number] [place] [address] May, Tobacco abuse Z72.0 [facility] [id number] [place] [address] May, [facility] [id number] [place] [address] Apr, Chronic pain syndrome G89.4 [facility] [id number] [place] [address] Apr, [facility] [id number] [place] [address] Apr, Right foot pain M79.671 [facility] [id number] [place] [address] Mar, Type 2 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 ; MITCHELL treated with BiPAP G47.33 ; Pure hypercholesterolemia E78.0 ; Chronic pain syndrome G89.4 ; Tobacco abuse Z72.0 and Obesity, morbid, BMI 40.0-49.9 E66.01 [facility] [id number] [place] [address] Mar, [facility] [id number] [place] [address] Mar, [facility] [id number] [place] [address] Mar, [facility] [address], [place] [address] Mar, [facility] [id number] [place] [address] Mar, [facility] [id number] [place] [address] Mar, Severe major depression with psychotic features F32.3 and Posttraumatic stress disorder F43.10 [facility] [id number] [place] [address] Mar, [facility] [id number] [place] [address] Feb, [facility] [id number] [place] [address] Feb, [facility] [id number] [place] [address] Jan, [facility] [id number] [place] [address] Jan, [facility] [id number] [place] [address] Dec, Posttraumatic stress disorder F43.10 and Severe major depression with psychotic features F32.3 [facility] [address], [place] [address] Dec, Type 2 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 ; Chronic pain syndrome G89.4 and Acute right-sided low back pain with right-sided sciatica M54.41 [facility] [address], [place] [address] Dec, [facility] [id number] [place] [address] Dec, [facility] [address], [place] [address] Nov, [facility] [address], [place] [address] Nov, [facility] [id number] [place] [address] Nov, [facility] [address], [place] [address] Oct, [facility] [id number] [place] [address] Oct, [facility] [id number] [place] [address] Sep, Dental examination Z01.20 [facility] [id number] [place] [address] Sep, [facility] [id number] [place] [address] Sep, Type 2 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 ; Chronic pain syndrome G89.4 ; Chronic prescription opiate use Z79.891 ; Injury of right index finger, sequela S69.91XS and Anejaculation N50.8 [facility] [id number] [place] [address] Aug, [facility] [address], [place] [address] Aug, [facility] [address], [place] [address] Aug, Cellulitis of finger of right hand L03.011 [facility] [address], [place] [address] July, [facility] [id number] [place] [address] July, [facility] [address], [place] [address] Jun, Onychomycosis B35.1 [facility] [id number] [address] Jun, Severe major depression with psychotic features F32.3 and Posttraumatic stress disorder F43.10 [facility] [id number] [place] [address] Jun, [facility] [id number] [place] [address] Jun, [facility] [id number] [place] [address] Jun, [facility] [id number] [place] [address] May, Type 2 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 [facility] [id number] [place] [address] May, Type 2 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 and Urinary hesitancy R39.11 [facility] [id number] [place] [address] May, Type 2 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 ; Left hip pain M25.552 and Benign prostatic hyperplasia with lower urinary tract symptoms, unspecified morphology N40.1 [facility] [id number] [address] May, [facility] [id number] [place] [address] Apr, Severe major depression with psychotic features F32.3 and Posttraumatic stress disorder F43.10 [facility] [id number] [place] [address] Apr, [facility] [id number] [place] [address] Mar, [facility] [id number] [address] Mar, Dysuria R30.0 and Urinary hesitancy R39.11 [place] [place] [id number] [place] [address] 08 Mar, 2015 Onychomycosis B35.1 [facility] [id number] [place] [address] Mar, [facility] [id number] [place] [address] Feb, [facility] [id number] [place] [address] Jan, [facility] [id number] [place] [address] Jan, Posttraumatic stress disorder F43.10 and Severe major depression with psychotic features F32.3 [facility] [id number] [address] Jan, [facility] [id number] [place] [address] Jan, Chronic pain syndrome G89.4 ; Type 2 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 ; Decreased pedal pulses R09.89 and Paresthesia of both hands R20.2 [facility] [id number] [address] Dec, Posttraumatic stress disorder F43.10 and Severe major depression with psychotic features F32.3 [facility] [id number], [place] [address] Dec, [facility] [id number] [address] Dec, [facility] [id number] [place] [address] Dec, Onychomycosis B35.1 [facility] [id number], [place] [address] Dec, [facility] [id number] [place] [address] Dec, [facility] [id number] [place] [address] Nov, [facility] [id number] [place] [address] Oct, Depression, major, recurrent, moderate 296.32 and Posttraumatic stress disorder 309.[address] [address] Oct, [facility] [id number] [place] [address] Oct, [place] [address] [address] Oct, [place] [id number] [place] [address] Sep, Posttraumatic stress disorder 309.81 and Depression, major, recurrent, moderate 296.32 [place] [id number] [place] [address] Sep, [place] [id number] [place] [address] Sep, Chronic airway obstruction, not elsewhere classified [id number] [place] [address] Sep, Onychomycosis 110.1 and DM neuro manif type II 250.60 [place] [id number] [place] [address] Sep, Chronic pain 338.29 ; Chronic airway obstruction, not elsewhere classified 496 ; Osteoarthritis of knees, bilateral 715.96 and On potassium wasting diuretic therapy V58.69 [place] [id number] [place] [address] Sep, Insect bites 919.4 ; Sinusitis 473.9 and GERD (gastroesophageal reflux disease) 530.[address] [address] Aug, Depression, major, recurrent, moderate 296.32 and Posttraumatic stress disorder 309.81 [facility] [id number], [place] [address] Aug, [facility] [id number] [address] Aug, [facility] [id number], [place] [address] Aug, [facility] [id number] [place] [address] July, Major depressive disorder, recurrent episode, moderate 296.32 and Posttraumatic stress disorder 309.81 [facility] [id number], [place] [address] July, [facility] [id number], [place] [address] July, [facility] [id number], [place] [address] July, [facility] [id number], [place] [address] July, [facility] [id number], [place] [address] Jun, [facility] [id number], [place] [address] Jun, [facility] [id number], [place] [address] May, [facility] [id number], [place] [address] May, [facility] [id number], [place] [address] May, [facility] [id number], [place] [address] May, [facility] [id number] [place] [address] May, 2014 [facility] [place] [facility] [address] [id number] [place] [address] May, [facility] [place] [facility] [address] [id number] [place] [address] May, 2014 [facility] [place] [facility] [address] [id number] [place] [address] May, 2014 [facility] [place] [facility] [address] [id number] [place] [address] May, [facility] [place] [facility] [address] [id number] [place] [address] Apr, 2014 [facility] [place] [facility] [address] [facility] [id number] [place] [address] Apr, 2014 [facility] [place] [facility] [address] [facility] [id number] [place] [address] Apr, 2014 [facility] [place] [facility] [address] [facility] [id number] [place] [address] Apr, 2014 [facility] [place] [facility] [address] [facility] [id number] [place] [address] Apr, [facility] [place] [facility] [address] [facility] [id number] [place] [address] Apr, 2014 [facility] [place] [facility] [address] [facility] [id number] [place] [address] Apr, 2014 [facility] [place] [facility] [address] [facility] [id number] [place] [address] Apr, [facility] [place] [facility] [address] [id number] [place] [address] Apr, [facility] [place] [facility] [address] [facility] [id number] [place] [address] Mar, [facility] [place] [facility] [address] [facility] [id number] [place] [address] Mar, 2014 [facility] [place] [facility] [address] [id number] [place] [address] Mar, [facility] [place] [facility] [address] [id number] [place] [address] 23 Mar, 2014 [facility] [place] [facility] [address] [id number] [place] [address] 15 Mar, 2014 [facility] [place] [facility] [address] [id number] [place] [address] 15 Mar, 2014 [facility] [place] [facility] [address] [id number] [place] [address] 15 Mar, 2014 [facility] [place] [facility] [address] [id number] [place] [address] 15 Mar, 2014 [facility] [place] [facility] [address] [id number] [place] [address] Mar, [facility] [place] [facility] [address] [id number], [place] [address] 15 Mar, 2014 [facility] [place] [facility] [address] [id number] [place] [address] Mar, [facility] [place] [facility] [address] [id number] [place] [address] Mar, [facility] [place] [facility] [address] [id number], [place] [address] Mar, [facility] [place] [facility] [address] [id number], [place] [address] Mar, [facility] [place] [facility] [address] [id number] [place] [address] Mar, [facility] [place] [facility] [address] [id number], [place] [address] 14 Mar, 2014 [facility] [place] [facility] [address] [id number], [place] [address] 09 Mar, 2014 [facility] [place] [facility] [address] [id number] [place] [address] 09 Mar, 2014 [facility] [place] [facility] [address] [id number] [place] [address] 16 Feb, 2014 [facility] [place] [facility] [address] [id number] [place] [address] 16 Feb, 2014 [facility] [place] [facility] [address] [id number] [place] [address] 15 Feb, 2014 [facility] [place] [facility] [address] [id number] [place] [address] 15 Feb, 2014 [facility] [place] [facility] [address] [id number] [place] [address] Feb, [facility] [place] [facility] [address] [id number] [place] [address] Feb, [facility] [place] [facility] [address] [id number] [place] [address] Jan, [facility] [place] [facility] [address] [id number] [place] [address] Jan, [facility] [place] [facility] [address] [id number] [place] [address] Jan, [facility] [place] [facility] [address] [id number] [place] [address] Jan, [facility] [place] [facility] [address] [id number] [place] [address] Jan, [facility] [place] [facility] [address] [id number] [place] [address] Jan, [facility] [place] [facility] [address] [id number] [place] [address] Jan, [facility] [place] [facility] [address] [id number] [place] [address] Jan, [facility] [place] [facility] [address] [id number] [place] [address] Jan, [facility] [place] [facility] [address] [id number] [place] [address] Jan, [facility] [place] [facility] [address] [id number] [place] [address] Dec, [facility] [place] [facility] [address] [id number] [place] [address] Dec, [facility] [place] [facility] [address] [id number] [place] [address] Dec, [facility] [place] [facility] [address] [id number] [place] [address] Dec, [facility] [place] [facility] [address] [id number] [place] [address] 16 Nov, 2013 [facility] [place] [facility] [address] [id number] [place] [address] Nov, 2013 [facility] [place] [facility] [address] [id number] [place] [address] Nov, 2013 [facility] [place] [facility] [address] [id number] [place] [address] Nov, 2013 [facility] [place] [facility] [address] [id number] [place] [address] Nov, [facility] [place] [facility] [address] [id number] [place] [address] Nov, [facility] [place] [facility] [address] [id number] [place] [address] Oct, [facility] [place] [facility] [address] [id number] [place] [address] Oct, [facility] [place] [facility] [address] [id number] [place] [address] Oct, [facility] [place] [facility] [address] [id number] [place] [address] Oct, [facility] [place] [facility] [address] [id number] [place] [address] Sep, [facility] [place] [facility] [address] [id number] [place] [address] Sep, [facility] [place] [facility] [address] [id number] [place] [address] Sep, [facility] [place] [facility] [address] [id number] [place] [address] Sep, [facility] [place] [facility] [address] [id number] [place] [address] Sep, [facility] [place] [facility] [address] [id number] [place] [address] Sep, [facility] [place] [facility] [address] [id number] [place] [address] July, [facility] [place] [facility] [address] [id number] [place] [address] July, [facility] [place] [facility] [address] [id number] [place] [address] July, [facility] [place] [facility] [address] [id number] [place] [address] July, [facility] [place] [facility] [address] [id number] [place] [address] Jun, [facility] [place] [facility] [address] [id number] [place] [address] Jun, [facility] [place] [facility] [address] [id number] [place] [address] Jun, [facility] [place] [facility] [address] [id number] [place] [address] Jun, [facility] [place] [facility] [address] [id number] [place] [address] Jun, [facility] [place] [facility] [address] [id number] [place] [address] Jun, [facility] [place] [facility] [address] [id number] [place] [address] May, [facility] [place] [facility] [address] [id number] [place] [address] May, [facility] [place] [facility] [address] [id number] [place] [address] Apr, [facility] [place] [facility] [address] [id number] [place] [address] Apr, [facility] [place] [facility] [address] [id number] [place] [address] Apr, [facility] [place] [facility] [address] [id number] [place] [address] Apr, [facility] [place] [facility] [address] [id number] [place] [address] Apr, [facility] [place] [facility] [address] [id number] [place] [address] Apr, [facility] [place] [facility] [address] [id number] [place] [address] Apr, [facility] [place] [facility] [address] [facility] [id number] [place] [address] Mar, [facility] [place] [facility] [address] [id number] [place] [address] Mar, [facility] [place] [facility] [address] [id number] [place] [address] Mar, [facility] [place] [facility] [address] [id number] [place] [address] Mar, [facility] [place] [facility] [address] [id number] [place] [address] Mar, [facility] [place] [facility] [address] [id number] [place] [address] Mar, [facility] [place] [facility] [address] [id number], [place] [address] Mar, [facility] [address] [id number] [place] [address] Mar, [facility] [place] [facility] [address] [id number] [place] [address] Feb, [facility] [place] [facility] [address] [id number] [place] [address] Feb, [facility] [place] [facility] [address] [id number], [place] [address] Feb, [facility] [place] [facility] [address] [id number] [place] [address] Feb, [facility] [place] [facility] [address] [id number] [place] [address] Feb, [facility] [address] [id number] [place] [address] Feb, [facility] [place] [facility] [address] [id number], [place] [address] Feb, [facility] [place] [facility] [address] [id number], [place] [address] Jan, [facility] [place] [facility] [address] [id number], [place] [address] Jan, [facility] [address] [id number], [place] [address] Jan, [facility] [place] [facility] [address] [id number], [place] [address] Jan, [facility] [place] [facility] [address] [id number], [place] [address] Jan, [facility] [place] [facility] [address] [id number], [place] [address] Jan, [facility] [address] [id number] [place] [id number] Jan, [facility] [place] [facility] [address] [id number] [place] [id number] 04 Jan, 2013 [facility] [place] [facility] [address] [id number] [place] [address] Dec, 2012 [facility] [place] [facility] [address] [id number] [place] [address] Dec, 2012 [facility] [place] [facility] [address] [id number] [place] [address] Dec, 2012 [facility] [place] [facility] [address] [id number] [place] [address] Dec, 2012 [facility] [place] [facility] [address] [id number] [place] [address] Dec, 2012 [facility] [place] [facility] [address] [id number] [place] [address] Dec, [facility] [place] [facility] [address] [id number] [place] [address] Dec, [facility] [place] [facility] [address] [id number] [place] [address] Dec, [facility] [place] [facility] [address] [id number] [place] [address] Dec, [facility] [place] [facility] [address] [id number] [place] [address] Dec, [facility] [place] [facility] [address] [id number] [place] [id number] 27 Nov, 2012 [facility] [place] [facility] [address] [id number] [place] [id number] 27 Nov, 2012 [facility] [place] [facility] [address] [id number] [place] [address] 24 Nov, 2012 [facility] [place] [facility] [address] [id number] [place] [address] 20 Nov, 2012 [facility] [place] [facility] [address] [id number] [place] [address] 19 Nov, 2012 [facility] [place] [facility] [address] [id number] [place] [address] 13 Nov, 2012 [facility] [place] [facility] [address] [id number] [place] [address] 10 Nov, 2012 [facility] [place] [facility] [address] [id number] [place] [address] Nov, [facility] [place] [facility] [address] [id number] [place] [address] Oct, [facility] [place] [facility] [address] [id number] [place] [address] Oct, [facility] [place] [facility] [address] [id number] [place] [address] Oct, [facility] [place] [facility] [address] [id number] [place] [address] Sep, [facility] [place] [facility] [address] [id number] [place] [address] Sep, [facility] [place] [facility] [address] [id number] [place] [address] Sep, [facility] [place] [facility] [address] [id number] [place] [address] Sep, [facility] [place] [facility] [address] [id number] [place] [address] Sep, [facility] [place] [facility] [address] [id number] [place] [address] Aug, [facility] [place] [facility] [address] [id number] [place] [address] Aug, [facility] [place] [facility] [address] [id number] [place] [address] Aug, [facility] [place] [facility] [address] [id number] [place] [address] Aug, [facility] [place] [facility] [address] [id number] [place] [address] Aug, [facility] [address] [id number] [place] [address] Aug, [facility] [address] [id number] [place] [address] July, [facility] [address] [id number] [place] [address] July, [facility] [address] [id number] [place] [address] July, [facility] [address] [id number] [place] [address] July, [facility] [address] [id number] [place] [address] July, [facility] [address] [id number] [place] [address] July, [facility] [address] [id number] [place] [address] Jun, [facility] [address] [id number] [place] [address] Jun, [facility] [address] [id number] [place] [address] Jun, [facility] [address] [id number], [place] [address] Jun, [facility] [place] [facility] [address] [id number], [place] [address] May, [facility] [place] [facility] [address] [id number] [place] [address] May, [facility] [place] [facility] [address] [id number], [place] [address] May, [facility] [place] [facility] [address] [id number] [place] [address] Apr, [facility] [address] [id number] [place] [address] 21 Mar, 2012 [facility] [address] [id number] [place] [address] 18 Mar, 2012 [facility] [place] [facility] [address] [id number] [place] [address] 17 Mar, 2012 [facility] [address] [id number] [place] [address] 16 Mar, 2012 [facility] [place] [facility] [address] [id number] [place] [address] 15 Mar, 2012 [facility] [address] [id number] [place] [address] 31 Feb, 2012 [facility] [place] [facility] [address] [id number] [place] [address] Feb, [facility] [address] [id number] [place] [address] 17 Feb, 2012 [facility] [address] [id number] [place] [address] 17 Feb, 2012 [facility] [place] [facility] [address] [id number] [place] [address] Jan, [facility] [address] [facility] [id number] [place] [address] Jan, [facility] [place] [facility] [address] [id number] [place] [address] Jan, [facility] [place] [facility] [address] [id number] [place] [address] Jan, [facility] [place] [facility] [address] [id number] [place] [address] Dec, [facility] [place] [facility] [address] [id number] [place] [address] Dec, [facility] [place] [facility] [address] [id number] [place] [address] Nov, [facility] [address] [id number] [place] [address] Oct, [facility] [address] [id number] [place] [address] Oct, [facility] [address] [id number] [place] [address] Oct, [facility] [address] [id number] [place] [address] Oct, [facility] [address] [id number] [place] [address] Oct, [facility] [address] [id number] [place] [address] Sep, [facility] [address] [id number] [place] [address] Sep, [facility] [address] [id number] [place] [address] Aug, [facility] [address] [place] [id number] Aug, [facility] [address] [id number] [place] [address] Aug, [facility] [address] [id number] [place] [address] July, [facility] [address] [id number] [place] [address] July, [facility] [address] [id number] [place] [address] Jun, [facility] [address] [id number] [place] [address] Jun, [facility] [address] [id number] [place] [address] 16 Jun, 2011 [facility] [address] [id number] [place] [address] Jun, [facility] [address] [id number] [place] [address] 15 Apr, 2011 [facility] [place] [facility] [address] [id number] [place] [address] 15 Apr, 2011 [facility] [address] [id number] [place] [address] Apr, [facility] [address] [id number] [place] [address] Mar, [facility] [address] [id number] [place] [address] Mar, [facility] [address] [id number] [place] [address] Mar, [facility] [address] [id number] [place] [address] Mar, [facility] [place] [facility] [address] [id number] [place] [address] Mar, [facility] [address] [id number] [place] [address] Jan, [facility] [place] [facility] [address] [id number] [place] [address] Jan, [facility] [place] [facility] [address] [id number], [place] [address] Jan, [facility] [place] [facility] [address] [id number], [place] [address] Mar, [facility] [place] [facility] [address] [id number] [place] [address] Mar, [facility] [place] [facility] [address] [id number] [place] [address] Feb, [facility] [place] [facility] [address] [id number] [place] [address] 16 Feb, 2010 [facility] [place] [facility] [id number], [place] [address] 16 Feb, 2010 [facility] [id number] [address] Jan, [facility] [id number], [place] [address] Jan, [facility] [id number], [place] [address] Dec, [facility] [id number], [place] [address] Dec, [facility] [id number] [place] [address] May, [facility] [id number], [place] [address] 10 Apr, 2009 [facility] [id number] [place] [address] Feb, [facility] [id number], [place] [address] Feb, [facility] [id number] [place] [address] Jan, [facility] [id number], [place] [address] Jan, [facility] [id number], [place] [address] Jan, [facility] [id number], [place] [address] Jan, [facility] [id number], [place] [address] Jan, IMMUNIZATIONS No Known Immunizations SOCIAL HISTORY Never Assessed REASON FOR VISIT PLAN OF CARE VITAL SIGNS MEDICATIONS Unknown Medications RESULTS No Results PROCEDURES No Known procedures INSTRUCTIONS MEDICATIONS ADMINISTERED No Known Medications MEDICAL (GENERAL) HISTORY Type Description Date Medical History sleep apnea Medical History chronic pain Medical 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 Medical History hypertension Medical History congestive heart failure Medical History hyperlipidemia Medical History depression Medical History type II diabetes Medical History cardiomyopathy Medical History obesity Medical History PTSD Medical History chronic obstructive pulmonary disease (COPD) Medical History peripheral vascular disease- normal JENNIFER bilaterally in 2009 Medical History osteoarthritis Surgical History orthopedic surgery-right shoulder Surgical History gastric sleeve ( [facility]) 03/2013 Surgical History tooth extraction 05/17/17 Surgical History EGD 01/2018 Hospitalization History ED then admitted to [facility]-cardiac stepdown-chest pain 02/2010 Hospitalization History Possible DVT-sono negative 06/2010 Hospitalization History cellulitis to bilat legs
--- OUTSIDE RECORDS SUMMARY | 2018-10-04 06:15 | XMS REPORT ---
Author Author ADILIA CHAVEZ [facility] Address [address] [place] [address] Care Team Providers Care Cabinet Maker Name Role Phone ADILIA CHAVEZ Unavailable PROBLEMS Type Condition ICD9-CM Code DOJ71-PC Code Onset Dates Condition Status SNOMED Code Problem Nocturnal hypoxia G47.34 Active 849852063 Problem Non-ischemic cardiomyopathy I42.9 Active 28214970 Problem Primary osteoarthritis of both knees M17.0 Active 520553744 Problem Obesity, morbid, BMI 40.0-49.9 E66.01 Active 448654215 Problem Posttraumatic stress disorder F43.10 Active 97931454 Problem History of DVT (deep vein thrombosis) Z86.718 Active 504893750 Problem History of weight loss surgery Z98.84 Active 641903766 Problem Chronic systolic (congestive) heart failure I50.22 Active 947972198 Problem Essential hypertension I10 Active 67140000 Problem Type 2 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 Active 340447462 Problem Chronic pain syndrome G89.4 Active 592341399 Problem Acute right-sided low back pain with right-sided sciatica M54.41 Active 60009353 Problem Chronic prescription opiate use Z79.891 Active 002740230 Problem Tobacco abuse Z72.0 Active 638398529 Problem Macrocytosis D75.89 Active 759759268 Problem BMI 45.0-49.9, adult Z68.42 Active 536337661 Problem Pure hypercholesterolemia E78.00 Active 491658853 Problem Gastroesophageal reflux disease, esophagitis presence not specified K21.9 Active 256968170 Problem Obstructive sleep apnea syndrome G47.33 Active 47737290 Problem Chronic obstructive pulmonary disease, unspecified COPD type J44.9 Active 71467068 Problem MITCHELL treated with BiPAP G47.33 Active 79295630 Problem Mild episode of recurrent major depressive disorder F33.0 Active 871889130 Problem Mood disorder F39 Active 75380301 Problem Primary insomnia F51.01 Active 9712970 Problem Chronic systolic congestive heart failure I50.22 Active 176137328 ALLERGIES No Information ENCOUNTERS Encounter Location Date Diagnosis [facility] [place] [facility] [address] [address] Aug, Chronic pain syndrome G89.4 [facility] [place] [facility] [id number] [address] Aug, [facility] [place] [facility] [address] [address] Aug, Type 2 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 [address] July, Chronic pain syndrome G89.4 [facility] [place] [facility] [id number] [address] July, [facility] [id number] [address] July, Encounter for Medicare annual wellness exam [...] failure I50.22 [facility] [place] [facility] [id number] [address] July, Type 2 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 [facility] [place] [facility] [id number] [address] July, [facility] [place] [facility] [id number] [address] July, Urinary hesitancy R39.11 [facility] [place] [facility] [id number] [address] July, Chronic pain syndrome G89.4 [facility] [place] [facility] [address] [address] Jun, Mass of shoulder region R22.30 [facility] [id number] [place] [address] Jun, Mass of shoulder region R22.30 [facility] [place] [facility] [id number] [place] [address] 05 Jun, 2018 Chronic pain syndrome G89.4 [facility] [place] [facility] [id number] [place] [address] 18 May, 2018 Type 2 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 ; Mass of shoulder region R22.30 and Morbid obesity E66.01 [facility] [id number] [place] [address] 07 May, 2018 Chronic pain syndrome G89.4 [facility] [id number] [place] [address] 04 May, 2018 Mood disorder F39 ; Posttraumatic stress disorder F43.10 and Morbid obesity E66.01 [facility] [id number] [place] [address] 14 Apr, 2018 Major depressive disorder, recurrent episode, unspecified severity F33.9 [facility] [id number] [place] [address] 13 Apr, 2018 Major depressive disorder, recurrent episode, unspecified severity F33.9 [facility] [id number] [place] [address] 07 Apr, 2018 Chronic pain syndrome G89.4 [facility] [id number] [place] [address] 14 Mar, 2018 Pain in right foot M79.671 ; Type 2 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 ; Chronic pain syndrome G89.4 and BMI 50.0-59.9, adult Z68.43 [facility] [id number] [place] [address] Mar, [facility] [facility] [id number] [place] [address] Mar, [facility] [facility] [address] [address] Mar, Chronic pain syndrome G89.4 [facility] [facility] [id number] [place] [address] Feb, Chronic pain syndrome G89.4 [facility] [facility] [id number] [place] [address] Jan, Obstructive sleep apnea syndrome G47.33 [facility] [facility] [address] [address] Jan, Type 2 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 ; Chronic pain syndrome G89.4 ; Gastroesophageal reflux disease, esophagitis presence not specified K21.9 ; Essential hypertension I10 ; Pure hypercholesterolemia E78.00 ; Chronic prescription opiate use Z79.891 ; Obstructive sleep apnea syndrome G47.33 and BMI 50.0-59.9, adult Z68.43 [facility] [address] [address] Jan, History of weight loss surgery Z98.84 [facility] [id number] [place] [address] 16 Jan, 2018 [facility] [facility] [id number] [place] [address] Jan, Chronic pain syndrome G89.4 [facility] [facility] [id number] [place] [address] Jan, [facility] [facility] [address] [address] Jan, [facility] [facility] [id number] [place] [address] Dec, [facility] [facility] [address] [address] Dec, Chronic pain syndrome G89.4 [facility] [id number] [place] [address] Dec, Injury of left knee, subsequent encounter S89.92XD and Acute pain of left knee M25.562 [facility] [id number] [place] [address] Dec, [facility] [address] [address] Dec, Injury of left knee, initial encounter S89.92XA and BMI 45.0-49.9, adult Z68.42 [facility] [address] [address] Nov, Chest discomfort R07.89 ; Shortness of breath R06.02 ; Chronic systolic congestive heart failure I50.22 and Type 2 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 [facility] [id number] [place] [address] Nov, Chronic pain syndrome G89.4 [facility] [id number] [place] [address] Oct, BMI 45.0-49.9, adult Z68.42 ; Type 2 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 ; Chronic pain syndrome G89.4 ; Gastroesophageal reflux disease, esophagitis presence not specified K21.9 ; Decreased pedal pulses R09.89 and Precordial pain R07.2 [facility] [id number] [place] [address] Oct, [facility] [id number] [place] [address] Oct, Mood disorder F39 [facility] [id number] [place] [address] Oct, Mood disorder F39 ; Posttraumatic stress disorder F43.10 and BMI 45.0-49.9, adult Z68.42 [facility] [address] [address] Sep, Primary osteoarthritis of both knees M17.0 and Chronic pain syndrome G89.4 [facility] [address] [address] Sep, Mood disorder F39 and Posttraumatic stress disorder F43.10 [facility] [id number] [place] [address] Aug, Primary osteoarthritis of both knees M17.0 and Chronic pain syndrome G89.4 [facility] [id number] [place] [address] July, Primary osteoarthritis of both knees M17.0 and Chronic pain syndrome G89.4 [facility] [id number] [place] [address] July, Type 2 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 ; Essential hypertension I10 ; Pure hypercholesterolemia E78.0 ; Chronic prescription opiate use Z79.891 ; Tobacco abuse Z72.0 ; Primary osteoarthritis of both knees M17.0 ; Primary insomnia F51.01 and BMI 45.0-49.9, adult Z68.42 [facility] [id number] [place] [address] July, Medicare annual wellness visit, initial Z00.00 [...] specified K21.9 and Encounter for immunization Z23 [facility] [address] [address] July, Primary osteoarthritis of both knees M17.0 and Chronic pain syndrome G89.4 [facility] [id number] [place] [address] Jun, Infection of right ear H66.91 ; Wheezing on auscultation R06.2 and BMI 45.0-49.9, adult Z68.42 [facility] [id number] [place] [address] Jun, [facility] [facility] [address] [address] Jun, Primary osteoarthritis of both knees M17.0 and Chronic pain syndrome G89.4 [facility] [facility] [id number] [place] [address] May, [facility] [facility] [id number] [place] [address] May, BMI 45.0-49.9, adult Z68.42 ; Mood disorder F39 and Posttraumatic stress disorder F43.10 [facility] [id number] [place] [address] May, [facility] [facility] [id number] [place] [address] May, Primary osteoarthritis of both knees M17.0 and Chronic pain syndrome G89.4 [facility] [facility] [id number] [place] [address] May, Mood disorder F39 [facility] [id number] [place] [address] Apr, Type 2 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 [facility] [facility] [id number] [place] [address] Apr, [facility] [id number] [place] [address] Apr, Primary osteoarthritis of both knees M17.0 and Chronic pain syndrome G89.4 [facility] [facility] [id number] [place] [address] Apr, Mood disorder F39 [facility] [id number] [place] [address] Mar, Mood disorder F39 and Posttraumatic stress disorder F43.10 [facility] [id number] [place] [address] Mar, Primary osteoarthritis of both knees M17.0 and Chronic pain syndrome G89.4 [facility] [id number] [place] [address] Feb, Primary osteoarthritis of both knees M17.0 and Chronic pain syndrome G89.4 [facility] [address] [address] Feb, Mood disorder F39 [facility] [id number] [place] [address] Jan, Type 2 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 ; Primary osteoarthritis of both knees M17.0 ; Mood disorder F39 ; Obesity, morbid, BMI 40.0-49.9 E66.01 ; Chronic prescription opiate use Z79.891 ; Acute suppurative otitis media of both ears without spontaneous rupture of tympanic membranes, recurrence not specified H66.003 and BMI 45.0-49.9, adult Z68.42 [facility] [id number] [place] [address] Jan, Primary osteoarthritis of both knees M17.0 and Chronic pain syndrome G89.4 [facility] [id number] [place] [address] Dec, Mood disorder F39 and Posttraumatic stress disorder F43.10 [facility] [id number] [place] [address] Dec, Primary osteoarthritis of both knees M17.0 and Chronic pain syndrome G89.4 [facility] [id number] [place] [address] Nov, Chronic pain syndrome G89.4 [facility] [address] [address] 15 Nov, 2016 Primary osteoarthritis of both knees M17.0 and Chronic pain syndrome G89.4 [facility] [address] [address] 13 Nov, 2016 Type 2 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 and Chronic pain syndrome G89.4 [facility] [id number] [place] [address] 12 Nov, 2016 Posttraumatic stress disorder F43.10 and Mood disorder F39 [facility] [id number] [place] [address] Oct, Chronic pain syndrome G89.4 [facility] [address] [address] 16 Oct, 2016 Type 2 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 ; BMI 45.0-49.9, adult Z68.42 ; Primary osteoarthritis of both knees M17.0 and Skin lesion L98.9 [facility] [facility] [address] [address] Oct, Chronic pain syndrome G89.4 [facility] [id number] [place] [address] Sep, Chronic pain syndrome G89.4 [facility] [address] [address] Sep, [facility] [facility] [address] [address] Sep, Chronic pain syndrome G89.4 [facility] [facility] [address] [address] Aug, Chronic pain syndrome G89.4 [facility] [address] [address] Aug, [facility] [facility] [id number] [place] [address] Aug, Macrocytosis D75.89 and Pure hypercholesterolemia E78.0 [facility] [facility] [id number] [place] [address] Aug, Pure hypercholesterolemia E78.0 [facility] [facility] [id number] [place] [address] Aug, Macrocytosis D75.89 [facility] [facility] [id number] [place] [address] Aug, Pure hypercholesterolemia E78.0 ; Type 2 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 ; MITCHELL treated with BiPAP G47.33 and Chronic pain syndrome G89.4 [facility] [id number] [place] [address] Aug, [facility] [id number] [place] [address] Aug, Hemorrhoids, unspecified hemorrhoid type K64.9 [facility] [facility] [id number] [place] [address] Aug, Chronic pain syndrome G89.4 ; Type 2 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 ; Hemorrhoids, unspecified hemorrhoid type K64.9 ; Tobacco abuse Z72.0 and Primary osteoarthritis of both knees M17.0 [facility] [address] [address] July, Chronic pain syndrome G89.4 [facility] [facility] [id number] [address] July, [facility] [facility] [id number] [place] [address] Jun, Chronic pain syndrome G89.4 [facility] [id number] [place] [address] Jun, Chronic pain syndrome G89.4 [facility] [id number] [place] [address] Jun, Severe major depression with psychotic features F32.3 and Posttraumatic stress disorder F43.10 [facility] [id number] [place] [address] Jun, Chronic pain syndrome G89.4 [facility] [id number] [place] [address] Jun, [facility] [address] [address] May, Chronic pain syndrome G89.4 [facility] [id number] [place] [address] May, Tobacco abuse Z72.0 [facility] [id number] [place] [address] May, [facility] [facility] [id number] [place] [address] Apr, Chronic pain syndrome G89.4 [facility] [id number] [place] [address] Apr, [facility] [address] [place] [address] Apr, Right foot pain M79.671 [facility] [address] [place] [address] Mar, Type 2 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 ; MITCHELL treated with BiPAP G47.33 ; Pure hypercholesterolemia E78.0 ; Chronic pain syndrome G89.4 ; Tobacco abuse Z72.0 and Obesity, morbid, BMI 40.0-49.9 E66.01 [facility] [id number] [place] [address] Mar, [facility] [facility] [id number] [place] [address] Mar, [facility] [facility] [id number] [place] [address] Mar, [facility] [facility] [address] [facility] [id number] [address] Mar, [facility] [facility] [address] [facility] [id number] [address] Mar, [facility] [facility] [id number] [address] Mar, Severe major depression with psychotic features F32.3 and Posttraumatic stress disorder F43.10 [facility] [place] [facility] [address] [facility] [id number] [address] Mar, [facility] [place] [facility] [id number] [place] [address] Feb, [facility] [place] [facility] [id number] [address] Feb, [facility] [place] [facility] [id number] [place] [address] Jan, [facility] [place] [facility] [id number] [address] Jan, [facility] [place] [facility] [address] [address] Dec, Posttraumatic stress disorder F43.10 and Severe major depression with psychotic features F32.3 [facility] [place] [facility] [address] [address] Dec, Type 2 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 ; Chronic pain syndrome G89.4 and Acute right-sided low back pain with right-sided sciatica M54.41 [facility] [place] [facility] [address] [address] Dec, [facility] [facility] [id number] [address] Dec, [facility] [place] [facility] [address] [address] Nov, [facility] [place] [facility] [address] [address] Nov, [facility] [place] [facility] [id number] [place] [address] Nov, [facility] [place] [facility] [id number] [place] [address] Oct, [facility] [place] [facility] [id number] [place] [address] Oct, [facility] [place] [facility] [id number] [place] [address] Sep, Dental examination Z01.20 [facility] [place] [facility] [id number] [place] [address] Sep, [facility] [place] [facility] [id number] [place] [address] Sep, Type 2 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 ; Chronic pain syndrome G89.4 ; Chronic prescription opiate use Z79.891 ; Injury of right index finger, sequela S69.91XS and Anejaculation N50.8 [facility] [place] [facility] [id number] [place] [address] Aug, [facility] [place] [facility] [id number] [place] [address] Aug, [facility] [id number] [place] [address] Aug, Cellulitis of finger of right hand L03.011 [facility] [place] [facility] [address] [address] July, [facility] [place] [facility] [id number] [place] [address] July, [facility] [place] [facility] [address] [address] Jun, Onychomycosis B35.1 [facility] [place] [facility] [address] [address] Jun, Severe major depression with psychotic features F32.3 and Posttraumatic stress disorder F43.10 [facility] [place] [facility] [address] [address] Jun, [facility] [place] [facility] [address] [address] Jun, [facility] [place] [facility] [id number] [place] [address] Jun, [facility] [place] [facility] [id number] [place] [address] May, Type 2 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 [facility] [place] [facility] [id number] [place] [address] May, Type 2 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 and Urinary hesitancy R39.11 [facility] [place] [facility] [id number] [place] [address] May, Type 2 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 ; Left hip pain M25.552 and Benign prostatic hyperplasia with lower urinary tract symptoms, unspecified morphology N40.1 [facility] [place] [facility] [id number] [address] May, [facility] [id number] [place] [id number] Apr, Severe major depression with psychotic features F32.3 and Posttraumatic stress disorder F43.10 [facility] [id number] [address] Apr, [facility] [id number] [place] [id number] Mar, [facility] [address] [address] Mar, Dysuria R30.0 and Urinary hesitancy R39.11 [facility] [id number] [address] Mar, Onychomycosis B35.1 [facility] [id number] [place] [id number] Mar, [facility] [id number] [address] Feb, [facility] [id number] [place] [address] Jan, [facility] [id number] [place] [address] Jan, Posttraumatic stress disorder F43.10 and Severe major depression with psychotic features F32.3 [facility] [id number] [place] [address] Jan, [facility] [id number] [place] [address] Jan, Chronic pain syndrome G89.4 ; Type 2 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 ; Decreased pedal pulses R09.89 and Paresthesia of both hands R20.2 [facility] [id number] [place] [address] Dec, Posttraumatic stress disorder F43.10 and Severe major depression with psychotic features F32.3 [facility] [id number] [address] Dec, [facility] [id number], [place] [address] Dec, [facility] [place] [facility] [id number] [place] [address] Dec, Onychomycosis B35.1 [facility] [place] [facility] [id number] [address] Dec, [facility] [place] [facility] [id number] [place] [address] Dec, [facility] [place] [facility] [id number] [place] [address] Nov, [facility] [place] [facility] [id number] [place] [address] Oct, Depression, major, recurrent, moderate 296.32 and Posttraumatic stress disorder 309.[address] [address] Oct, [facility] [place] [facility] [id number] [place] [address] Oct, [place] [id number] [place] [address] Oct, [address] [id number] [place] [address] Sep, Posttraumatic stress disorder 309.81 and Depression, major, recurrent, moderate 296.32 [address] [id number] [place] [address] Sep, [id number] [place] [address] Sep, Chronic airway obstruction, not elsewhere classified [id number] [place] [address] Sep, Onychomycosis 110.1 and DM neuro manif type II 250.60 [address] [id number] [place] [address] Sep, Chronic pain 338.29 ; Chronic airway obstruction, not elsewhere classified 496 ; Osteoarthritis of knees, bilateral 715.96 and On potassium wasting diuretic therapy V58.69 [address] [id number] [place] [address] Sep, Insect bites 919.4 ; Sinusitis 473.9 and GERD (gastroesophageal reflux disease) 530.81 [address] [id number] [place] [address] Aug, Depression, major, recurrent, moderate 296.32 and Posttraumatic stress disorder 309.81 [facility] [place] [facility] [address] [facility] [id number] [address] Aug, [facility] [place] [facility] [address] [facility] [id number] [address] Aug, [facility] [place] [facility] [id number] [address] Aug, [facility] [place] [facility] [id number] [address] July, Major depressive disorder, recurrent episode, moderate 296.32 and Posttraumatic stress disorder 309.81 [facility] [place] [facility] [id number] [address] July, [facility] [place] [facility] [id number] [address] July, [facility] [place] [facility] [id number] [address] July, [facility] [place] [facility] [id number] [address] July, [facility] [place] [facility] [address] [address] Jun, [facility] [place] [facility] [address] [address] Jun, [facility] [place] [facility] [address] [address] May, [facility] [place] [facility] [id number] [address] May, [facility] [place] [facility] [id number] [address] May, [facility] [place] [facility] [id number] [address] May, [facility] [place] [facility] [id number] [place] [address] May, [facility] [place] [facility] [address] [id number] [place] [address] May, [facility] [place] [facility] [address] [id number] [place] [address] May, 2014 [facility] [place] [facility] [address] [id number] [place] [address] May, [facility] [place] [facility] [address] [id number] [place] [address] May, [facility] [place] [facility] [address] [id number] [place] [address] Apr, 2014 [facility] [place] [facility] [address] [facility] [id number] [place] [address] Apr, 2014 [facility] [place] [facility] [address] [facility] [id number] [place] [address] Apr, 2014 [facility] [place] [facility] [address] [facility] [id number] [place] [address] Apr, 2014 [facility] [place] [facility] [address] [facility] [id number] [place] [address] Apr, [facility] [place] [facility] [address] [facility] [id number] [place] [address] Apr, 2014 [facility] [place] [facility] [address] [facility] [id number] [place] [address] Apr, 2014 [facility] [place] [facility] [address] [facility] [id number] [place] [address] Apr, [facility] [place] [facility] [address] [facility] [id number] [place] [address] Apr, 2014 [facility] [place] [facility] [address] [facility] [id number] [place] [address] Mar, [facility] [place] [facility] [address] [facility] [id number] [place] [address] 30 Mar, 2014 [facility] [place] [facility] [address] [id number] [place] [address] Mar, [facility] [place] [facility] [address] [id number] [place] [address] Mar, [facility] [place] [facility] [address] [id number] [place] [address] 15 Mar, 2014 [facility] [place] [facility] [address] [id number] [place] [address] 15 Mar, 2014 [facility] [place] [facility] [address] [id number] [place] [address] 15 Mar, 2014 [facility] [place] [facility] [address] [id number] [place] [address] 15 Mar, 2014 [facility] [place] [facility] [address] [id number] [place] [address] Mar, [facility] [place] [facility] [address] [id number] [place] [address] 15 Mar, 2014 [facility] [place] [facility] [address] [id number] [place] [address] 14 Mar, 2014 [facility] [place] [facility] [address] [id number] [place] [address] Mar, [facility] [place] [facility] [address] [id number] [address] 14 Mar, 2014 [facility] [place] [facility] [address] [id number] [place] [address] 14 Mar, 2014 [facility] [place] [facility] [address] [id number] [place] [address] Mar, [facility] [place] [facility] [address] [id number] [place] [address] 14 Mar, 2014 [facility] [place] [facility] [address] [id number] [place] [address] 09 Mar, 2014 [facility] [place] [facility] [address] [id number] [place] [address] 09 Mar, 2014 [facility] [address] [id number] [place] [address] 16 Feb, 2014 [facility] [place] [facility] [address] [id number] [place] [address] 16 Feb, 2014 [facility] [address] [id number] [place] [address] 15 Feb, 2014 [facility] [place] [facility] [address] [id number] [place] [address] 15 Feb, 2014 [facility] [place] [facility] [address] [id number] [place] [address] Feb, [facility] [place] [facility] [address] [id number] [place] [address] Feb, [facility] [place] [facility] [address] [id number] [place] [address] Jan, [facility] [place] [facility] [address] [id number] [place] [address] Jan, [facility] [place] [facility] [address] [id number] [place] [address] Jan, [facility] [place] [facility] [address] [id number] [place] [address] Jan, [facility] [place] [facility] [address] [id number] [place] [address] Jan, [facility] [place] [facility] [address] [id number] [place] [address] Jan, [facility] [place] [facility] [address] [id number] [place] [address] Jan, [facility] [place] [facility] [address] [id number] [place] [address] Jan, [facility] [place] [facility] [address] [id number] [place] [address] Jan, [facility] [place] [facility] [address] [id number] [place] [address] Jan, [facility] [place] [facility] [address] [id number] [place] [address] Dec, [facility] [place] [facility] [address] [id number] [place] [address] Dec, [facility] [place] [facility] [address] [id number] [place] [address] Dec, [facility] [place] [facility] [address] [id number] [place] [address] Dec, [facility] [place] [facility] [address] [id number] [place] [address] 16 Nov, 2013 [facility] [place] [facility] [address] [id number] [place] [address] Nov, 2013 [facility] [place] [facility] [address] [id number] [place] [address] Nov, [facility] [place] [facility] [address] [id number] [place] [address] Nov, [facility] [place] [facility] [address] [id number] [place] [address] Nov, [facility] [place] [facility] [address] [id number] [place] [address] Nov, [facility] [place] [facility] [address] [id number] [address] Oct, [facility] [place] [facility] [address] [id number] [place] [address] Oct, [facility] [place] [facility] [address] [id number] [place] [address] Oct, [facility] [place] [facility] [address] [id number] [address] Oct, [facility] [place] [facility] [address] [id number] [place] [address] Sep, [facility] [place] [facility] [address] [id number] [place] [address] Sep, [facility] [place] [facility] [address] [id number] [place] [address] Sep, [facility] [place] [facility] [address] [id number] [place] [address] Sep, [facility] [place] [facility] [address] [id number] [place] [address] Sep, [facility] [place] [facility] [address] [id number] [place] [address] Sep, [facility] [place] [facility] [address] [id number] [place] [address] July, [facility] [place] [facility] [address] [id number] [place] [address] July, [facility] [place] [facility] [address] [id number] [place] [address] July, [facility] [place] [facility] [address] [id number] [place] [address] July, [facility] [place] [facility] [address] [id number] [place] [address] Jun, [facility] [place] [facility] [address] [id number] [place] [address] Jun, [facility] [place] [facility] [address] [id number] [place] [address] Jun, [facility] [place] [facility] [address] [id number] [place] [address] Jun, [facility] [place] [facility] [address] [id number] [place] [address] Jun, [facility] [place] [facility] [address] [id number] [place] [address] Jun, [facility] [place] [facility] [address] [id number] [place] [address] May, [facility] [place] [facility] [address] [id number] [place] [address] May, [facility] [place] [facility] [address] [id number] [place] [address] Apr, [facility] [place] [facility] [address] [id number] [place] [address] Apr, [facility] [place] [facility] [address] [id number] [place] [address] Apr, [facility] [place] [facility] [address] [id number] [place] [address] Apr, [facility] [place] [facility] [address] [facility] [id number] [place] [address] Apr, [facility] [place] [facility] [address] [id number] [place] [address] Apr, [facility] [place] [facility] [address] [id number] [place] [address] Apr, [facility] [place] [facility] [address] [facility] [id number] [place] [address] Mar, [facility] [place] [facility] [address] [facility] [id number] [place] [address] Mar, [facility] [place] [facility] [address] [id number] [place] [address] Mar, [facility] [place] [facility] [address] [id number] [place] [address] Mar, [facility] [place] [facility] [address] [id number] [place] [address] Mar, [facility] [place] [facility] [address] [id number] [place] [address] Mar, [facility] [place] [facility] [address] [id number] [place] [address] Mar, [facility] [address] [id number] [place] [address] Mar, [facility] [address] [id number] [place] [address] Feb, [facility] [address] [id number] [place] [address] Feb, [facility] [place] [facility] [address] [id number] [place] [address] Feb, [facility] [address] [id number] [place] [address] Feb, [facility] [address] [id number] [place] [address] Feb, [facility] [address] [id number] [place] [address] Feb, [facility] [address] [id number] [place] [address] Feb, [facility] [address] [id number] [place] [address] Jan, [facility] [address] [id number] [place] [address] Jan, [facility] [address] [id number] [place] [address] Jan, [facility] [place] [facility] [address] [id number] [place] [address] Jan, [facility] [place] [facility] [address] [id number] [place] [address] Jan, [facility] [place] [facility] [address] [id number] [place] [address] Jan, [facility] [address] [id number] [place] [address] Jan, [facility] [address] [id number] [place] [address] 04 Jan, 2013 [facility] [address] [id number] [place] [address] Dec, 2012 [facility] [place] [facility] [address] [id number] [place] [address] Dec, 2012 [facility] [address] [id number] [place] [address] Dec, 2012 [facility] [place] [facility] [address] [id number] [place] [address] Dec, 2012 [facility] [place] [facility] [address] [id number] [place] [address] Dec, [facility] [place] [facility] [address] [id number] [place] [address] Dec, [facility] [place] [facility] [address] [id number] [place] [address] Dec, [facility] [address] [id number] [place] [address] Dec, [facility] [place] [facility] [address] [id number] [place] [address] Dec, [facility] [place] [facility] [address] [id number] [place] [address] Dec, [facility] [place] [facility] [address] [id number] [place] [address] 27 Nov, 2012 [facility] [place] [facility] [address] [id number] [place] [id number] 27 Nov, 2012 [facility] [place] [facility] [address] [id number] [place] [address] 24 Nov, 2012 [facility] [place] [facility] [address] [id number] [place] [address] 20 Nov, 2012 [facility] [place] [facility] [address] [id number] [place] [address] 19 Nov2012 [facility] [place] [facility] [address] [id number] [place] [address] Nov, [facility] [place] [facility] [address] [id number] [place] [address] Nov, [facility] [place] [facility] [address] [id number] [place] [address] Nov, [facility] [place] [facility] [address] [id number] [place] [address] Oct, [facility] [place] [facility] [address] [id number] [place] [address] Oct, [facility] [place] [facility] [address] [id number] [place] [address] Oct, [facility] [place] [facility] [address] [id number] [place] [address] Sep, [facility] [place] [facility] [address] [id number] [place] [address] Sep, [facility] [place] [facility] [address] [id number] [place] [address] Sep, [facility] [place] [facility] [address] [id number] [place] [address] Sep, [facility] [place] [facility] [address] [id number] [place] [address] Sep, [facility] [place] [facility] [address] [id number] [place] [address] Aug, [facility] [place] [facility] [address] [id number] [place] [address] Aug, [facility] [place] [facility] [address] [id number] [place] [address] Aug, [facility] [place] [facility] [address] [id number] [place] [address] Aug, [facility] [place] [facility] [address] [id number] [place] [address] Aug, [facility] [address] [id number] [place] [address] Aug, [facility] [address] [id number] [place] [address] July, [facility] [address] [id number] [place] [address] July, [facility] [address] [id number] [place] [address] July, [facility] [address] [id number] [place] [address] July, [facility] [address] [id number] [place] [address] July, [facility] [address] [id number] [place] [address] July, [facility] [address] [id number] [place] [address] Jun, [facility] [address] [id number] [place] [address] Jun, [facility] [place] [facility] [address] [id number] [place] [address] Jun, [facility] [address] [id number] [place] [address] Jun, [facility] [place] [facility] [address] [id number] [place] [address] May, [facility] [place] [facility] [address] [id number] [place] [address] May, [facility] [place] [facility] [address] [id number] [place] [address] May, [facility] [place] [facility] [address] [id number] [place] [address] Apr, [facility] [place] [facility] [address] [id number] [place] [address] 21 Mar, 2012 [facility] [address] [id number] [place] [address] 18 Mar, 2012 [facility] [address] [id number] [place] [address] 17 Mar, 2012 [facility] [address] [id number] [place] [address] 16 Mar, 2012 [facility] [address] [id number] [place] [address] 15 Mar, 2012 [facility] [address] [id number] [place] [address], [place] [address] 31 Feb, 2012 [facility] [address] [id number] [place] [address] Feb, [facility] [address] [facility] [id number] [place] [address] Feb, [facility] [address] [id number] [place] [address] 17 Feb, 2012 [facility] [address] [facility] [id number] [place] [address] Jan, [facility] [address] [facility] [id number] [place] [address] Jan, [facility] [address] [id number] [place] [address] Jan, [facility] [address] [id number] [address] Jan, [facility] [address] [id number] [place] [address] 19 Dec, 2011 [facility] [address] [id number] [place] [address] 19 Dec, 2011 [facility] [address] [id number] [place] [address] Nov, [facility] [address] [id number] [place] [address] Oct, [facility] [address] [id number] [place] [address] Oct, [facility] [address] [id number] [place] [address] Oct, [facility] [address] [id number] [place] [address] Oct, [facility] [address] [id number] [place] [address] Oct, [facility] [address] [id number] [place] [address] Sep, [facility] [address] [id number] [place] [address] Sep, [facility] [address] [id number] [place] [address] Aug, [facility] [address] [place] [id number] Aug, [facility] [address] [id number] [place] [address] Aug, [facility] [address] [id number] [place] [address] July, [facility] [address] [id number] [place] [address] July, [facility] [address] [id number] [place] [address] Jun, [facility] [address] [id number] [place] [address] Jun, [facility] [address] [id number] [place] [address] 16 Jun, 2011 [facility] [address] [id number] [place] [address] Jun, [facility] [address] [id number] [place] [address] 15 Apr, 2011 [facility] [place] [facility] [address] [id number] [place] [address] 15 Apr, 2011 [facility] [place] [facility] [address] [id number] [place] [address] Apr, [facility] [place] [facility] [address] [id number] [place] [address] Mar, [facility] [place] [facility] [address] [id number] [place] [address] Mar, [facility] [place] [facility] [address] [id number] [place] [address] Mar, [facility] [place] [facility] [address] [id number] [place] [address] Mar, [facility] [place] [facility] [address] [id number] [place] [address] Mar, [facility] [place] [facility] [address] [id number] [place] [address] Jan, [facility] [place] [facility] [address] [id number] [place] [address] Jan, [facility] [place] [facility] [address] [id number] [place] [address] Jan, [facility] [place] [facility] [address] [id number] [place] [address] Mar, [facility] [place] [facility] [address] [id number] [place] [address] Mar, [facility] [place] [facility] [address] [id number] [place] [address] Feb, [facility] [place] [facility] [address] [id number] [place] [address] Feb, [facility] [place] [facility] [id number] [address] 16 Feb, 2010 [facility] [place] [facility] [id number] [address] Jan, [facility] [place] [facility] [id number] [address] Jan, [facility] [place] [facility] [id number] [place] [address] Dec, [facility] [place] [facility] [id number] [place] [address] Dec, [facility] [place] [facility] [id number] [place] [address] May, [facility] [place] [facility] [id number] [address] 10 Apr, 2009 [facility] [place] [facility] [id number] [place] [address] Feb, [facility] [place] [facility] [id number] [place] [address] Feb, [facility] [place] [facility] [id number] [place] [address] Jan, [facility] [place] [facility] [id number] [address] Jan, [facility] [place] [facility] [id number] [address] Jan, [facility] [place] [facility] [id number] [address] Jan, [facility] [place] [facility] [id number] [address] Jan, IMMUNIZATIONS No Known Immunizations SOCIAL HISTORY Never Assessed REASON FOR VISIT PLAN OF CARE VITAL SIGNS MEDICATIONS Unknown Medications RESULTS No Results PROCEDURES Procedure Date Ordered Result Body Site PSYTX PT&/FAMILY 45 MINUTES May 06, 2014 INSTRUCTIONS MEDICATIONS ADMINISTERED No Known Medications MEDICAL [...]
--- OUTSIDE RECORDS SUMMARY | 2018-10-04 06:16 | XMS REPORT ---
Author Author Migration, Doctor Organization [facility] Address Unknown Phone Unavailable Care Team Providers Care Wet Process Miller Head Name Role Phone Migration, Doctor Unavailable Unavailable PROBLEMS Type Condition ICD9-CM Code DNS31-VE Code Onset Dates Condition Status SNOMED Code Problem Nocturnal hypoxia G47.34 Active 314893405 Problem Non-ischemic cardiomyopathy I42.9 Active 39329219 Problem Primary osteoarthritis of both knees M17.0 Active 099994378 Problem Obesity, morbid, BMI 40.0-49.9 E66.01 Active 593331852 Problem Posttraumatic stress disorder F43.10 Active 65045409 Problem History of DVT (deep vein thrombosis) Z86.718 Active 660633936 Problem History of weight loss surgery Z98.84 Active 627579303 Problem Chronic systolic (congestive) heart failure I50.22 Active 787176504 Problem Essential hypertension I10 Active 27591900 Problem Type 2 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 Active 314861646 Problem Chronic pain syndrome G89.4 Active 562898230 Problem Acute right-sided low back pain with right-sided sciatica M54.41 Active 31885321 Problem Chronic prescription opiate use Z79.891 Active 053687343 Problem Tobacco abuse Z72.0 Active 602002129 Problem Macrocytosis D75.89 Active 634324849 Problem BMI 45.0-49.9, adult Z68.42 Active 541990802 Problem Pure hypercholesterolemia E78.00 Active 830942156 Problem Gastroesophageal reflux disease, esophagitis presence not specified K21.9 Active 270001047 Problem Obstructive sleep apnea syndrome G47.33 Active 70649401 Problem Chronic obstructive pulmonary disease, unspecified COPD type J44.9 Active 63680453 Problem MITCHELL treated with BiPAP G47.33 Active 13723564 Problem Mild episode of recurrent major depressive disorder F33.0 Active 216534663 Problem Mood disorder F39 Active 90380918 Problem Primary insomnia F51.01 Active 5877522 Problem Chronic systolic congestive heart failure I50.22 Active 859710958 ALLERGIES No Information ENCOUNTERS Encounter Location Date Diagnosis [facility] [id number] [address] Aug, [facility] [place] [address] [place] [address] [id number] [place] [address] July, [facility] [place] [id number] [address] 14 Jul, 2018 Encounter for Medicare annual wellness exam Z00.00 [...] and Chronic systolic congestive heart failure I50.22 [facility] [id number] [address] 10 Jul, 2018 Type 2 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 [facility] [id number] [place] [address] July, [facility] [place] [id number] [place] [address] July, Urinary hesitancy R39.11 [facility] [place] [id number] [address] July, Chronic pain syndrome G89.4 [facility] [place] [id number] [address] Jun, Mass of shoulder region R22.30 [facility] [place] [id number] [place] [address] Jun, Mass of shoulder region R22.30 [facility] [place] [id number] [address] Jun, Chronic pain syndrome G89.4 [facility] [place] [id number] [place] [address] 18 May, 2018 Type 2 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 ; Mass of shoulder region R22.30 and Morbid obesity E66.01 [facility] [place] [id number] [place] [address] 07 May, 2018 Chronic pain syndrome G89.4 [facility] [id number] [place] [address] 04 May, 2018 Mood disorder F39 ; Posttraumatic stress disorder F43.10 and Morbid obesity E66.01 [facility] [place] [id number] [place] [address] 14 Apr, 2018 Major depressive disorder, recurrent episode, unspecified severity F33.9 [facility] [place] [id number] [place] [address] 13 Apr, 2018 Major depressive disorder, recurrent episode, unspecified severity F33.9 [facility] [place] [id number] [place] [address] 07 Apr, 2018 Chronic pain syndrome G89.4 [facility] [place] [id number] [place] [address] Mar, Pain in right foot M79.671 ; Type 2 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 ; Chronic pain syndrome G89.4 and BMI 50.0-59.9, adult Z68.43 [facility] [place] [id number] [address] Mar, [facility] [id number] [place] [address] Mar, [place] [id number] [place] [address] Mar, Chronic pain syndrome G89.4 [facility] [id number] [place] [address] Feb, Chronic pain syndrome G89.4 [facility] [place] [id number] [place] [address] Jan, Obstructive sleep apnea syndrome G47.33 [facility] [id number] [place] [address] Jan, Type 2 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 ; Chronic pain syndrome G89.4 ; Gastroesophageal reflux disease, esophagitis presence not specified K21.9 ; Essential hypertension I10 ; Pure hypercholesterolemia E78.00 ; Chronic prescription opiate use Z79.891 ; Obstructive sleep apnea syndrome G47.33 and BMI 50.0-59.9, adult Z68.43 [facility] [address] [id number] [place] [address] Jan, History of weight loss surgery Z98.84 [facility] [place] [id number] [place] [address] 16 Jan, 2018 [place] [address] [address] Jan, Chronic pain syndrome G89.4 [facility] [id number] [place] [address] Jan, [facility] [id number] [place] [address] Jan, [facility] [id number] [place] [address] Dec, [facility] [id number] [place] [address] Dec, Chronic pain syndrome G89.4 [facility] [id number] [place] [address] Dec, Injury of left knee, subsequent encounter S89.92XD and Acute pain of left knee M25.562 [facility] [id number] [place] [address] Dec, [facility] [id number] [place] [address] 11 Oct, 2018 Injury of left knee, initial encounter S89.92XA and BMI 45.0-49.9, adult Z68.42 [facility] [place] [id number] [place] [address] Nov, Chest discomfort R07.89 ; Shortness of breath R06.02 ; Chronic systolic congestive heart failure I50.22 and Type 2 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 [facility] [address] [address] Nov, Chronic pain syndrome G89.4 [facility] [place] [address] [address] Oct, BMI 45.0-49.9, adult Z68.42 ; Type 2 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 ; Chronic pain syndrome G89.4 ; Gastroesophageal reflux disease, esophagitis presence not specified K21.9 ; Decreased pedal pulses R09.89 and Precordial pain R07.2 [place] [id number] [place] [address] Oct, [facility] [place] [address] [address] Oct, Mood disorder F39 [place] [address] [id number] [place] [address] Oct, Mood disorder F39 ; Posttraumatic stress disorder F43.10 and BMI 45.0-49.9, adult Z68.42 [facility] [place] [id number] [place] [address] Sep, Primary osteoarthritis of both knees M17.0 and Chronic pain syndrome G89.4 [facility] [address] [address] Sep, Mood disorder F39 and Posttraumatic stress disorder F43.10 [place] [place] [id number] [place] [address] Aug, Primary osteoarthritis of both knees M17.0 and Chronic pain syndrome G89.4 [facility] [id number] [place] [address] July, Primary osteoarthritis of both knees M17.0 and Chronic pain syndrome G89.4 [facility] [id number] [place] [address] July, Type 2 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 ; Essential hypertension I10 ; Pure hypercholesterolemia E78.0 ; Chronic prescription opiate use Z79.891 ; Tobacco abuse Z72.0 ; Primary osteoarthritis of both knees M17.0 ; Primary insomnia F51.01 and BMI 45.0-49.9, adult Z68.42 [place] [address] [address] 08 Jul, 2017 Medicare annual wellness visit, initial Z00.00 ; [...] specified K21.9 and Encounter for immunization Z23 [facility] [address] [id number] [place] [address] July, Primary osteoarthritis of both knees M17.0 and Chronic pain syndrome G89.4 [facility] [address] [id number] [place] [address] Jun, Infection of right ear H66.91 ; Wheezing on auscultation R06.2 and BMI 45.0-49.9, adult Z68.42 [facility] [address] [address] Jun, [place] [address] [address] Jun, Primary osteoarthritis of both knees M17.0 and Chronic pain syndrome G89.4 [place] [id number] [address] May, [facility] [id number] [place] [address] May, BMI 45.0-49.9, adult Z68.42 ; Mood disorder F39 and Posttraumatic stress disorder F43.10 [facility] [id number] [place] [address] May, [facility] [address] [id number] [place] [address] May, Primary osteoarthritis of both knees M17.0 and Chronic pain syndrome G89.4 [facility] [id number] [place] [address] May, Mood disorder F39 [facility] [address] [id number] [place] [address] Apr, Type 2 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 [facility] [address] [id number] [place] [address] Apr, [facility] [id number] [place] [address] Apr, Primary osteoarthritis of both knees M17.0 and Chronic pain syndrome G89.4 [facility] [id number] [place] [address] Apr, Mood disorder F39 [facility] [id number] [place] [address] Mar, Mood disorder F39 and Posttraumatic stress disorder F43.10 [facility] [id number] [place] [address] Mar, Primary osteoarthritis of both knees M17.0 and Chronic pain syndrome G89.4 [facility] [id number] [place] [address] Feb, Primary osteoarthritis of both knees M17.0 and Chronic pain syndrome G89.4 [facility] [id number] [place] [address] Feb, Mood disorder F39 [facility] [address] [place] [id number] [place] [address] 30 Jan, 2017 Type 2 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 ; Primary osteoarthritis of both knees M17.0 ; Mood disorder F39 ; Obesity, morbid, BMI 40.0-49.9 E66.01 ; Chronic prescription opiate use Z79.891 ; Acute suppurative otitis media of both ears without spontaneous rupture of tympanic membranes, recurrence not specified H66.003 and BMI 45.0-49.9, adult Z68.42 [facility] [id number] [place] [address] Jan, Primary osteoarthritis of both knees M17.0 and Chronic pain syndrome G89.4 [facility] [id number] [place] [address] Dec, Mood disorder F39 and Posttraumatic stress disorder F43.10 [facility] [id number] [place] [address] Dec, Primary osteoarthritis of both knees M17.0 and Chronic pain syndrome G89.4 [facility] [id number] [place] [address] 18 Nov, 2016 Chronic pain syndrome G89.4 [facility] [id number] [place] [address] 15 Nov, 2016 Primary osteoarthritis of both knees M17.0 and Chronic pain syndrome G89.4 [facility] [id number] [place] [address] 13 Nov, 2016 Type 2 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 and Chronic pain syndrome G89.4 [facility] [id number] [place] [address] 12 Nov, 2016 Posttraumatic stress disorder F43.10 and Mood disorder F39 [facility] [id number] [address] Oct, Chronic pain syndrome G89.4 [facility] [id number] [place] [address] Oct, Type 2 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 ; BMI 45.0-49.9, adult Z68.42 ; Primary osteoarthritis of both knees M17.0 and Skin lesion L98.9 [facility] [id number] [address] Oct, Chronic pain syndrome G89.4 [facility] [id number] [place] [address] Sep, Chronic pain syndrome G89.4 [facility] [id number] [place] [address] Sep, [facility] [id number] [place] [address] Sep, Chronic pain syndrome G89.4 [facility] [id number] [address] Aug, Chronic pain syndrome G89.4 [facility] [id number] [place] [address] Aug, [facility] [id number] [address] Aug, Macrocytosis D75.89 and Pure hypercholesterolemia E78.0 [facility] [id number] [address] Aug, Pure hypercholesterolemia E78.0 [facility] [id number] [address] Aug, Macrocytosis D75.89 [facility] [id number] [address] Aug, Pure hypercholesterolemia E78.0 ; Type 2 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 ; MITCHELL treated with BiPAP G47.33 and Chronic pain syndrome G89.4 [facility] [id number] [place] [address] Aug, [facility] [id number] [place] [address] Aug, Hemorrhoids, unspecified hemorrhoid type K64.9 [facility] [id number] [place] [address] Aug, Chronic pain syndrome G89.4 ; Type 2 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 ; Hemorrhoids, unspecified hemorrhoid type K64.9 ; Tobacco abuse Z72.0 and Primary osteoarthritis of both knees M17.0 [facility] [id number] [place] [address] July, Chronic pain syndrome G89.4 [facility] [address] [id number] [place] [address] July, [facility] [id number] [place] [address] Jun, Chronic pain syndrome G89.4 [facility] [id number] [place] [address] Jun, Chronic pain syndrome G89.4 [facility] [id number] [place] [address] Jun, Severe major depression with psychotic features F32.3 and Posttraumatic stress disorder F43.10 [facility] [id number] [place] [address] Jun, Chronic pain syndrome G89.4 [facility] [id number] [place] [address] Jun, [facility] [id number] [place] [address] May, Chronic pain syndrome G89.4 [facility] [id number] [address] May, Tobacco abuse Z72.0 [facility] [id number] [place] [address] May, [facility] [id number] [place] [address] Apr, Chronic pain syndrome G89.4 [facility] [id number] [place] [address] Apr, [facility] [id number] [place] [address] Apr, Right foot pain M79.671 [facility] [id number] [place] [address] Mar, Type 2 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 ; MITCHELL treated with BiPAP G47.33 ; Pure hypercholesterolemia E78.0 ; Chronic pain syndrome G89.4 ; Tobacco abuse Z72.0 and Obesity, morbid, BMI 40.0-49.9 E66.01 [facility] [id number] [place] [address] Mar, [facility] [id number] [place] [address] Mar, [facility] [id number] [place] [address] Mar, [facility] [id number] [place] [address] Mar, [facility] [id number] [place] [address] Mar, [facility] [id number] [place] [address] Mar, Severe major depression with psychotic features F32.3 and Posttraumatic stress disorder F43.10 [facility] [id number] [place] [address] Mar, [facility] [id number] [address] Feb, [facility] [id number] [address] Feb, [facility] [id number] [address] Jan, [facility] [id number] [place] [address] Jan, [facility] [id number] [place] [address] Dec, Posttraumatic stress disorder F43.10 and Severe major depression with psychotic features F32.3 [facility] [id number] [address] Dec, Type 2 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 ; Chronic pain syndrome G89.4 and Acute right-sided low back pain with right-sided sciatica M54.41 [facility] [id number] [address] Dec, [facility] [id number] [address] Dec, [facility] [id number] [address] Nov, [facility] [id number] [address] Nov, [facility] [id number] [address] Nov, [facility] [id number] [address] Oct, [facility] [id number] [address] Oct, [facility] [id number] [place] [address] Sep, Dental examination Z01.20 [facility] [id number] [place] [address] Sep, [facility] [id number] [place] [address] Sep, Type 2 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 ; Chronic pain syndrome G89.4 ; Chronic prescription opiate use Z79.891 ; Injury of right index finger, sequela S69.91XS and Anejaculation N50.8 [facility] [id number] [place] [address] Aug, [facility] [id number] [place] [address] Aug, [facility] [id number] [place] [address] Aug, Cellulitis of finger of right hand L03.011 [facility] [id number] [place] [address] July, [facility] [id number] [place] [address] July, [facility] [id number] [place] [address] Jun, Onychomycosis B35.1 [facility] [id number] [place] [address] Jun, Severe major depression with psychotic features F32.3 and Posttraumatic stress disorder F43.10 [facility] [id number] [place] [address] Jun, [facility] [id number] [place] [address] Jun, [facility] [id number] [place] [address] Jun, [place] [id number] [place] [phone] May, Type 2 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 [facility] [id number] [place] [phone] May, Type 2 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 and Urinary hesitancy R39.11 [facility] [address] [phone] May, Type 2 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 ; Left hip pain M25.552 and Benign prostatic hyperplasia with lower urinary tract symptoms, unspecified morphology N40.1 [place] [id number] [place] [phone] May, [place] [id number] [place] [phone] Apr, Severe major depression with psychotic features F32.3 and Posttraumatic stress disorder F43.10 [place] [id number] [place] [phone] Apr, [facility] [id number] [place] [phone] Mar, [place] [id number] [place] [phone] Mar, Dysuria R30.0 and Urinary hesitancy R39.11 [facility] [id number] [place] [phone] Mar, Onychomycosis B35.1 [facility] [id number] [place] [phone] Mar, [facility] [id number] [place] [phone] Feb, [facility] [id number] [place] [phone] Jan, [facility] [id number] [address] Jan, Posttraumatic stress disorder F43.10 and Severe major depression with psychotic features F32.3 [facility] [id number] [place] [phone] Jan, [facility] [id number] [place] [address] Jan, Chronic pain syndrome G89.4 ; Type 2 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 ; Decreased pedal pulses R09.89 and Paresthesia of both hands R20.2 [facility] [id number] [place] [address] Dec, Posttraumatic stress disorder F43.10 and Severe major depression with psychotic features F32.3 [facility] [id number] [place] [address] Dec, [facility] [id number] [place] [address] Dec, [facility] [id number] [place] [address] Dec, Onychomycosis B35.1 [facility] [id number] [place] [address] Dec, [facility] [id number] [place] [address] Dec, [facility] [id number] [place] [address] Nov, [facility] [id number] [place] [address] Oct, Depression, major, recurrent, moderate 296.32 and Posttraumatic stress disorder 309.81 [facility] [id number] [place] [address] Oct, [facility] [id number] [place] [address] Oct, [facility] [id number] [place] [address] Oct, [id number] [place] [address] Sep, Posttraumatic stress disorder 309.81 and Depression, major, recurrent, moderate 296.[address] [address] Sep, [address] [id number] [place] [address] Sep, Chronic airway obstruction, not elsewhere classified [address] [address] Sep, Onychomycosis 110.1 and DM neuro manif type II 250.[address] [address] Sep, Chronic pain 338.29 ; Chronic airway obstruction, not elsewhere classified 496 ; Osteoarthritis of knees, bilateral 715.96 and On potassium wasting diuretic therapy V58.69 [id number] [place] [address] Sep, Insect bites 919.4 ; Sinusitis 473.9 and GERD (gastroesophageal reflux disease) 530.81 [id number] [place] [address] Aug, Depression, major, recurrent, moderate 296.32 and Posttraumatic stress disorder 309.81 [place] [id number] [place] [address] Aug, [address] [address] Aug, [place] [id number] [place] [address] Aug, [facility] [address] [address] July, Major depressive disorder, recurrent episode, moderate 296.32 and Posttraumatic stress disorder 309.81 [facility] [address] [id number] [place] [address] July, [facility] [address] [facility] [id number] [place] [address] July, [facility] [address] [facility] [id number] [place] [address], [place] [address] July, [facility] [address] [id number] [place] [address], [place] [address] July, [facility] [address] [facility] [id number] [place] [address], [place] [address] Jun, [facility] [id number] [place] [address] Jun, [facility] [address] [id number] [place] [address] May, [facility] [id number] [place] [address] May, [facility] [address] [facility] [id number] [address] May, [facility] [address] [facility] [id number] [place] [address] May, [facility] [address] [facility] [id number] [address] May, [facility] [address] [facility] [id number] [address] May, [facility] [address] [facility] [id number] [address] May, [facility] [address] [facility] [id number] [place] [address] May, [facility] [address] [facility] [id number] [place] [address] May, [facility] [place] [facility] [address] [id number] [place] [address] Apr, [facility] [place] [facility] [address] [id number] [place] [address] Apr, [facility] [place] [facility] [address] [facility] [id number] [place] [address] Apr, 2014 [facility] [place] [facility] [address] [id number] [place] [address] Apr, 2014 [facility] [place] [facility] [address] [id number] [place] [address] Apr, [facility] [place] [facility] [address] [facility] [id number] [place] [address] Apr, [facility] [place] [facility] [address] [facility] [id number] [place] [address] Apr, [facility] [place] [facility] [address] [facility] [id number] [place] [address] Apr, [facility] [place] [facility] [address] [facility] [id number] [place] [address] Apr, [facility] [place] [facility] [address] [facility] [id number] [place] [address] Mar, [facility] [place] [facility] [address] [facility] [id number] [place] [address] Mar, [facility] [place] [facility] [address] [facility] [id number] [address] Mar, [facility] [place] [facility] [address] [id number] [place] [address] Mar, [facility] [place] [facility] [address] [facility] [id number] [place] [address] Mar, [facility] [place] [facility] [address] [facility] [id number] [place] [address] Mar, [facility] [place] [facility] [address] [id number] [place] [address] 15 Mar, 2014 [facility] [place] [facility] [address] [id number] [place] [address] 15 Mar, 2014 [facility] [place] [facility] [address] [id number] [place] [address] 15 Mar, 2014 [facility] [place] [facility] [address] [id number] [place] [address] 15 Mar, 2014 [facility] [place] [facility] [address] [id number] [place] [address] 14 Mar, 2014 [facility] [place] [facility] [address] [id number] [place] [address] 14 Mar, 2014 [facility] [place] [facility] [address] [id number] [place] [address] 14 Mar, 2014 [facility] [place] [facility] [address] [id number] [place] [address] 14 Mar, 2014 [facility] [place] [facility] [address] [id number] [place] [address] 14 Mar, 2014 [facility] [place] [facility] [address] [id number] [place] [address] 14 Mar, 2014 [facility] [place] [facility] [address] [id number] [place] [address] 09 Mar, 2014 [facility] [place] [facility] [address] [id number] [place] [address] 09 Mar, 2014 [facility] [place] [facility] [address] [id number] [place] [address] 16 Feb, 2014 [facility] [place] [facility] [address] [id number] [place] [address] 16 Feb, 2014 [facility] [place] [facility] [address] [id number] [place] [address] 15 Feb, 2014 [facility] [place] [facility] [address] [id number] [address] Feb, [facility] [place] [facility] [address] [id number] [place] [address] Feb, [facility] [place] [facility] [address] [id number] [place] [address] Feb, [facility] [place] [facility] [address] [facility] [id number] [place] [address] Jan, [facility] [place] [facility] [address] [id number] [place] [address] Jan, [facility] [place] [facility] [address] [id number] [place] [address] Jan, [facility] [place] [facility] [address] [id number] [place] [address] Jan, [facility] [place] [facility] [address] [id number] [place] [address] Jan, [facility] [place] [facility] [address] [id number] [address] Jan, [facility] [place] [facility] [address] [id number] [place] [address] Jan, [facility] [place] [facility] [address] [id number] [place] [address] Jan, [facility] [place] [facility] [address] [id number] [place] [address] Jan, [facility] [place] [facility] [address] [id number] [place] [address] Jan, [facility] [place] [facility] [address] [id number] [place] [address] Dec, [facility] [place] [facility] [address] [id number] [place] [address] Dec, [facility] [place] [facility] [address] [facility] [id number] [place] [address] Dec, [facility] [place] [facility] [address] [id number] [place] [address] Dec, [facility] [place] [facility] [address] [id number] [place] [address] Nov, [facility] [place] [facility] [address] [id number] [place] [address] Nov, 2013 [facility] [place] [facility] [address] [id number] [place] [address] Nov, 2013 [facility] [place] [facility] [address] [id number] [place] [address] Nov, 2013 [facility] [place] [facility] [address] [id number] [place] [address] Nov, [facility] [place] [facility] [address] [id number] [place] [address] Nov, [facility] [place] [facility] [address] [id number] [place] [address] Oct, [facility] [place] [facility] [address] [id number] [place] [address] Oct, [facility] [place] [facility] [address] [id number] [place] [address] Oct, [facility] [place] [facility] [address] [id number] [place] [address] Oct, [facility] [place] [facility] [address] [id number] [place] [address] Sep, [facility] [place] [facility] [address] [id number] [place] [address] Sep, [facility] [place] [facility] [address] [id number] [place] [address] Sep, [facility] [place] [facility] [address] [id number] [place] [address] Sep, [facility] [place] [facility] [address] [id number] [place] [address] Sep, [facility] [place] [facility] [address] [id number] [place] [address] Sep, [facility] [place] [facility] [address] [id number] [place] [address] July, [facility] [place] [facility] [address] [id number] [place] [address] July, [facility] [place] [facility] [address] [id number] [place] [address] July, [facility] [place] [facility] [address] [id number] [place] [address] July, [facility] [place] [facility] [address] [id number] [place] [address] Jun, [facility] [place] [facility] [address] [id number] [place] [address] Jun, [facility] [place] [facility] [address] [id number] [place] [address] Jun, [facility] [place] [facility] [address] [id number] [place] [address] Jun, [facility] [place] [facility] [address] [id number] [place] [address] Jun, [facility] [place] [facility] [address] [id number] [place] [address] Jun, [facility] [place] [facility] [address] [id number] [place] [address] May, [facility] [place] [facility] [address] [id number] [place] [address] May, [facility] [place] [facility] [address] [id number] [place] [address] Apr, [facility] [place] [facility] [address] [id number] [place] [address] Apr, [facility] [place] [facility] [address] [id number] [place] [address] Apr, [facility] [address] [id number] [place] [address] Apr, [facility] [place] [facility] [address] [id number] [place] [address] Apr, [facility] [place] [facility] [address] [id number] [place] [address] Apr, [facility] [place] [facility] [address] [id number] [place] [address] Apr, [facility] [place] [facility] [address] [id number] [place] [address] Mar, [facility] [place] [facility] [address] [id number] [place] [address] Mar, [facility] [address] [id number] [place] [address] Mar, [facility] [address] [id number] [place] [address] Mar, [facility] [place] [facility] [address] [id number] [place] [address] Mar, [facility] [address] [id number] [place] [address] Mar, [facility] [place] [facility] [address] [id number] [place] [address] Mar, [facility] [place] [facility] [address] [id number] [place] [address] Mar, [facility] [place] [facility] [address] [id number] [place] [address] Feb, [facility] [place] [facility] [address] [id number] [place] [address] Feb, [facility] [place] [facility] [address] [id number] [place] [address] Feb, [facility] [place] [facility] [address] [id number] [place] [address] Feb, [facility] [place] [facility] [address] [id number] [place] [address] Feb, [facility] [place] [facility] [address] [id number] [place] [address] Feb, [facility] [place] [facility] [address] [id number] [place] [address] Feb, [facility] [place] [facility] [address] [id number] [place] [address] Jan, [facility] [place] [facility] [address] [id number] [place] [address] Jan, [facility] [place] [facility] [address] [id number] [place] [address] Jan, [facility] [place] [facility] [address] [id number] [address] Jan, [facility] [place] [facility] [address] [id number] [place] [address] Jan, [facility] [place] [facility] [address] [id number] [place] [address] Jan, [facility] [place] [facility] [address] [id number] [place] [id number] Jan, [facility] [place] [facility] [address] [id number] [place] [id number] Jan, [facility] [place] [facility] [address] [id number] [place] [address] Dec, [facility] [place] [facility] [address] [id number] [place] [address] Dec, [facility] [place] [facility] [address] [id number] [place] [address] Dec, [facility] [place] [facility] [address] [id number] [place] [address] Dec, [facility] [place] [facility] [address] [id number] [place] [address] 31 Dec, 2012 [facility] [place] [facility] [address] [id number] [place] [address] Dec, [facility] [place] [facility] [address] [id number] [place] [address] Dec, [facility] [place] [facility] [address] [id number] [place] [address] Dec, [facility] [place] [facility] [address] [id number] [place] [address] Dec, [facility] [place] [facility] [address] [id number] [place] [address] Dec, [facility] [place] [facility] [address] [id number] [place] [id number] 27 Nov, 2012 [facility] [place] [facility] [address] [id number] [place] [id number] 27 Nov, 2012 [facility] [place] [facility] [address] [id number] [place] [address] 24 Nov, 2012 [facility] [place] [facility] [address] [id number] [place] [address] 20 Nov, 2012 [facility] [place] [facility] [address] [id number] [place] [address] 19 Nov, 2012 [facility] [place] [facility] [address] [id number] [place] [address] 13 Nov, 2012 [facility] [place] [facility] [address] [id number] [place] [address] 10 Nov, 2012 [facility] [place] [facility] [address] [id number] [place] [address] 06 Nov, 2012 [facility] [place] [facility] [address] [id number] [place] [address] Oct, [facility] [place] [facility] [address] [id number] [place] [address] Oct, [facility] [address] [id number] [place] [address] Oct, [facility] [place] [facility] [address] [id number] [place] [address] Sep, [facility] [place] [facility] [address] [id number] [place] [address] Sep, [facility] [place] [facility] [address] [id number] [place] [address] Sep, [facility] [place] [facility] [address] [id number] [place] [address] Sep, [facility] [place] [facility] [address] [id number] [place] [address] Sep, [facility] [address] [id number] [place] [address] Aug, [facility] [place] [facility] [address] [id number] [place] [address] Aug, [facility] [place] [facility] [address] [id number] [place] [address] Aug, [facility] [place] [facility] [address] [id number] [place] [address] Aug, [facility] [place] [facility] [address] [id number] [place] [address] Aug, [facility] [place] [facility] [address] [id number] [place] [address] Aug, [facility] [place] [facility] [address] [id number] [place] [address] July, [facility] [place] [facility] [address] [id number] [place] [address] July, [facility] [place] [facility] [address] [id number] [place] [address] July, [facility] [place] [facility] [address] [id number] [place] [address] July, [facility] [address] [id number] [place] [address] July, [facility] [address] [id number] [place] [address] July, [facility] [address] [id number] [place] [address] Jun, [facility] [address] [id number] [place] [address] Jun, [facility] [address] [id number] [place] [address] Jun, [facility] [address] [id number] [place] [address] Jun, [facility] [address] [id number] [place] [address] May, [facility] [address] [id number] [place] [address] May, [facility] [address] [id number] [place] [address] May, [facility] [address] [id number] [place] [address] Apr, [facility] [address] [id number] [place] [address] Mar, [facility] [address] [id number] [place] [address] Mar, [facility] [place] [facility] [address] [id number] [place] [address] Mar, [facility] [address] [id number] [place] [address] 16 Mar, 2012 [facility] [address] [id number] [address] Mar, [facility] [place] [facility] [address] [id number] [place] [address] Feb, [facility] [place] [facility] [address] [id number] [place] [address] Feb, [facility] [place] [facility] [address] [facility] [id number] [place] [address] Feb, [facility] [place] [facility] [address] [id number] [place] [address] Feb, [facility] [place] [facility] [address] [id number] [place] [address] Jan, [facility] [place] [facility] [address] [id number] [place] [address] Jan, [facility] [place] [facility] [address] [id number] [place] [address] Jan, [facility] [place] [facility] [address] [id number] [place] [address] Jan, [facility] [place] [facility] [address] [id number] [place] [address] Dec, [facility] [place] [facility] [address] [id number] [place] [address] Dec, [facility] [place] [facility] [address] [id number] [address] Nov, [facility] [place] [facility] [address] [id number] [address] Oct, [facility] [place] [facility] [address] [id number] [place] [address] Oct, [facility] [place] [facility] [address] [id number] [place] [address] Oct, [facility] [place] [facility] [address] [id number] [place] [address] Oct, [facility] [place] [facility] [address] [id number] [place] [address] Oct, [facility] [address] [id number] [place] [address] Sep, [facility] [address] [id number] [place] [address] Sep, [facility] [address] [id number] [place] [address] Aug, [address] [id number] Aug, [facility] [address] [id number] [place] [address] Aug, [facility] [address] [id number] [place] [address] July, [facility] [address] [id number] [place] [address] July, [facility] [address] [id number] [place] [address] Jun, [facility] [address] [id number] [place] [address] Jun, [facility] [address] [id number] [place] [address] Jun, [facility] [address] [id number] [place] [address] Jun, [facility] [address] [id number] [place] [address] Apr, [facility] [address] [id number] [place] [address] 15 Apr, 2011 [facility] [address] [id number] [place] [address] Apr, [facility] [address] [id number] [place] [address] Mar, [facility] [address] [id number] [place] [address] Mar, [facility] [place] [facility] [address] [id number] [place] [address] Mar, [facility] [place] [facility] [address] [id number] [place] [address] Mar, [facility] [place] [facility] [address] [id number] [place] [address] Mar, [facility] [place] [facility] [address] [id number] [place] [address] Jan, [facility] [place] [facility] [address] [id number] [place] [address] Jan, [facility] [place] [facility] [address] [id number] [place] [address] Jan, [facility] [place] [facility] [address] [id number] [place] [address] Mar, [facility] [place] [facility] [address] [id number] [place] [address] Mar, [facility] [place] [facility] [address] [id number] [place] [address] Feb, [facility] [place] [facility] [address] [id number] [place] [address] 16 Feb, 2010 [facility] [place] [facility] [address] [id number] [place] [address] Feb, [facility] [place] [facility] [address] [id number] [place] [address] Jan, [facility] [place] [facility] [address] [id number] [place] [address] Jan, [facility] [place] [facility] [address] [id number] [place] [address] Dec, [facility] [place] [facility] [address] [id number] [place] [address] Dec, [facility] [address] [id number] [place] [address] May, [facility] [id number] [address] Apr, [facility] [id number] [address] Feb, [facility] [id number] [address] Feb, [facility] [id number] [address] Jan, [facility] [id number] [address] Jan, [facility] [id number] [address] Jan, [facility] [id number] [address] Jan, [facility] [id number] [address] Jan, IMMUNIZATIONS No Known Immunizations SOCIAL HISTORY Never Assessed REASON FOR VISIT EMR-[facility] [place]AN OF CARE VITAL SIGNS MEDICATIONS Unknown [...]
--- OUTSIDE RECORDS SUMMARY | 2018-10-04 06:17 | XMS REPORT ---
Author Author Migration, Doctor Organization [facility] Address Unknown Phone Unavailable Care Team Providers Care Casing Tier Name Role Phone Migration, Doctor Unavailable Unavailable PROBLEMS Type Condition ICD9-CM Code [id number] Code Onset Dates Condition Status SNOMED Code Problem Nocturnal hypoxia G47.34 Active 975266281 Problem Non-ischemic cardiomyopathy I42.9 Active 70349176 Problem Primary osteoarthritis of both knees M17.0 Active 562967705 Problem Obesity, morbid, BMI 40.0-49.9 E66.01 Active 437356329 Problem Posttraumatic stress disorder F43.10 Active 07056238 Problem History of DVT (deep vein thrombosis) Z86.718 Active 636731554 Problem History of weight loss surgery Z98.84 Active 738514339 Problem Chronic systolic (congestive) heart failure I50.22 Active 352616327 Problem Essential hypertension I10 Active 13450765 Problem Type 2 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 Active 592027068 Problem Chronic pain syndrome G89.4 Active 499893040 Problem Acute right-sided low back pain with right-sided sciatica M54.41 Active 06303895 Problem Chronic prescription opiate use Z79.891 Active 412193963 Problem Tobacco abuse Z72.0 Active 084218970 Problem Macrocytosis D75.89 Active 967216104 Problem BMI 45.0-49.9, adult Z68.42 Active 079200339 Problem Pure hypercholesterolemia E78.00 Active 336249509 Problem Gastroesophageal reflux disease, esophagitis presence not specified K21.9 Active 357661092 Problem Obstructive sleep apnea syndrome G47.33 Active 12160035 Problem Chronic obstructive pulmonary disease, unspecified COPD type J44.9 Active 38415369 Problem MITCHELL treated with BiPAP G47.33 Active 70062530 Problem Mild episode of recurrent major depressive disorder F33.0 Active 670037047 Problem Mood disorder F39 Active 76282220 Problem Primary insomnia F51.01 Active 2162588 Problem Chronic systolic congestive heart failure I50.22 Active 139545639 ALLERGIES No Information ENCOUNTERS Encounter Location Date Diagnosis [place] [address] [address] Aug, [place] [id number] [place] [address] July, [place] [address] [address] 14 Jul, 2018 Encounter for Medicare annual [...] and Chronic systolic congestive heart failure I50.22 [place] [id number] [address] 10 Jul, 2018 Type 2 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 [place] [id number] [place] [address] July, [place] [id number] [place] [address] July, Urinary hesitancy R39.11 [place] [address] [address] July, Chronic pain syndrome G89.4 [place] [id number] [address] Jun, Mass of shoulder region R22.30 [place] [id number] [place] [address] Jun, Mass of shoulder region R22.30 [place] [address] [address] Jun, Chronic pain syndrome G89.4 [place] [id number] [place] [address] 18 May, 2018 Type 2 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 ; Mass of shoulder region R22.30 and Morbid obesity E66.01 [place] [id number] [place] [address] 07 May, 2018 Chronic pain syndrome G89.4 [facility] [id number] [place] [address] 04 May, 2018 Mood disorder F39 ; Posttraumatic stress disorder F43.10 and Morbid obesity E66.01 [place] [id number] [place] [address] 14 Apr, 2018 Major depressive disorder, recurrent episode, unspecified severity F33.9 [place] [id number] [place] [address] 13 Apr, 2018 Major depressive disorder, recurrent episode, unspecified severity F33.9 [place] [id number] [place] [address] 07 Apr, 2018 Chronic pain syndrome G89.4 [place] [id number] [place] [address] Mar, Pain in right foot M79.671 ; Type 2 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 ; Chronic pain syndrome G89.4 and BMI 50.0-59.9, adult Z68.43 [place] [address] [address] Mar, [facility] [id number] [place] [address] Mar, [place] [id number] [place] [address] Mar, Chronic pain syndrome G89.4 [facility] [id number] [place] [address] Feb, Chronic pain syndrome G89.4 [place] [id number] [place] [address] Jan, Obstructive sleep apnea syndrome G47.33 [facility] [id number] [place] [address] Jan, Type 2 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 ; Chronic pain syndrome G89.4 ; Gastroesophageal reflux disease, esophagitis presence not specified K21.9 ; Essential hypertension I10 ; Pure hypercholesterolemia E78.00 ; Chronic prescription opiate use Z79.891 ; Obstructive sleep apnea syndrome G47.33 and BMI 50.0-59.9, adult Z68.43 [facility] [id number] [place] [address] Jan, History of weight loss surgery Z98.84 [place] [id number] [place] [address] 16 Jan, 2018 [place] [address] [address] Jan, Chronic pain syndrome G89.4 [facility] [id number] [place] [address] Jan, [facility] [id number] [place] [address] Jan, [facility] [id number] [place] [address] Dec, [facility] [id number] [place] [address] Dec, Chronic pain syndrome G89.4 [facility] [id number] [place] [address] Dec, Injury of left knee, subsequent encounter S89.92XD and Acute pain of left knee M25.562 [facility] [id number] [place] [address] Dec, [facility] [id number] [place] [address] 11 Oct, 2018 Injury of left knee, initial encounter S89.92XA and BMI 45.0-49.9, adult Z68.42 [place] [id number] [place] [address] Nov, Chest discomfort R07.89 ; Shortness of breath R06.02 ; Chronic systolic congestive heart failure I50.22 and Type 2 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 [place] [address] [address] Nov, Chronic pain syndrome G89.4 [place] [address] [address] Oct, BMI 45.0-49.9, adult Z68.42 ; Type 2 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 ; Chronic pain syndrome G89.4 ; Gastroesophageal reflux disease, esophagitis presence not specified K21.9 ; Decreased pedal pulses R09.89 and Precordial pain R07.2 [place] [address] [id number] [place] [address] Oct, [place] [address] [address] Oct, Mood disorder F39 [place] [address] [id number] [place] [address] Oct, Mood disorder F39 ; Posttraumatic stress disorder F43.10 and BMI 45.0-49.9, adult Z68.42 [place] [address] [id number] [place] [address] Sep, Primary osteoarthritis of both knees M17.0 and Chronic pain syndrome G89.4 [place] [address] [address] Sep, Mood disorder F39 and Posttraumatic stress disorder F43.10 [place] [id number] [place] [address] Aug, Primary osteoarthritis of both knees M17.0 and Chronic pain syndrome G89.4 [facility] [id number] [place] [address] July, Primary osteoarthritis of both knees M17.0 and Chronic pain syndrome G89.4 [facility] [id number] [place] [address] July, Type 2 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 ; Essential hypertension I10 ; Pure hypercholesterolemia E78.0 ; Chronic prescription opiate use Z79.891 ; Tobacco abuse Z72.0 ; Primary osteoarthritis of both knees M17.0 ; Primary insomnia F51.01 and BMI 45.0-49.9, adult Z68.42 [place] [address] [address] 08 Jul, 2017 Medicare annual wellness visit, [...] specified K21.9 and Encounter for immunization Z23 [place] [address] [place] [id number] [place] [address] July, Primary osteoarthritis of both knees M17.0 and Chronic pain syndrome G89.4 [facility] [id number] [place] [address] Jun, Infection of right ear H66.91 ; Wheezing on auscultation R06.2 and BMI 45.0-49.9, adult Z68.42 [facility] [address] [address] Jun, [place] [address] [address] Jun, Primary osteoarthritis of both knees M17.0 and Chronic pain syndrome G89.4 [place] [address] [address] May, [facility] [id number] [place] [address] May, BMI 45.0-49.9, adult Z68.42 ; Mood disorder F39 and Posttraumatic stress disorder F43.10 [facility] [id number] [place] [address] May, [facility] [id number] [place] [address] May, Primary osteoarthritis of both knees M17.0 and Chronic pain syndrome G89.4 [facility] [id number] [place] [address] May, Mood disorder F39 [facility] [id number] [place] [address] Apr, Type 2 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 [facility] [id number] [place] [address] Apr, [facility] [id number] [place] [address] Apr, Primary osteoarthritis of both knees M17.0 and Chronic pain syndrome G89.4 [facility] [address] [place] [address] Apr, Mood disorder F39 [facility] [id number] [place] [address] Mar, Mood disorder F39 and Posttraumatic stress disorder F43.10 [facility] [id number] [place] [address] Mar, Primary osteoarthritis of both knees M17.0 and Chronic pain syndrome G89.4 [facility] [id number] [place] [address] Feb, Primary osteoarthritis of both knees M17.0 and Chronic pain syndrome G89.4 [facility] [address] [place] [address] Feb, Mood disorder F39 [facility] [address] [place] [id number] [place] [address] 30 Jan, 2017 Type 2 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 ; Primary osteoarthritis of both knees M17.0 ; Mood disorder F39 ; Obesity, morbid, BMI 40.0-49.9 E66.01 ; Chronic prescription opiate use Z79.891 ; Acute suppurative otitis media of both ears without spontaneous rupture of tympanic membranes, recurrence not specified H66.003 and BMI 45.0-49.9, adult Z68.42 [facility] [id number] [place] [address] Jan, Primary osteoarthritis of both knees M17.0 and Chronic pain syndrome G89.4 [facility] [id number] [place] [address] Dec, Mood disorder F39 and Posttraumatic stress disorder F43.10 [facility] [id number] [place] [address] Dec, Primary osteoarthritis of both knees M17.0 and Chronic pain syndrome G89.4 [facility] [id number] [place] [address] 18 Nov, 2016 Chronic pain syndrome G89.4 [facility] [id number] [place] [address] 15 Nov, 2016 Primary osteoarthritis of both knees M17.0 and Chronic pain syndrome G89.4 [facility] [id number] [place] [address] 13 Nov, 2016 Type 2 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 and Chronic pain syndrome G89.4 [facility] [id number] [place] [address] 12 Nov, 2016 Posttraumatic stress disorder F43.10 and Mood disorder F39 [facility] [address] [address] Oct, Chronic pain syndrome G89.4 [facility] [address] [place] [address] Oct, Type 2 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 ; BMI 45.0-49.9, adult Z68.42 ; Primary osteoarthritis of both knees M17.0 and Skin lesion L98.9 [facility] [address] [address] Oct, Chronic pain syndrome G89.4 [facility] [id number] [place] [address] Sep, Chronic pain syndrome G89.4 [facility] [address] [place] [address] Sep, [facility] [id number] [place] [address] Sep, Chronic pain syndrome G89.4 [facility] [address] [address] Aug, Chronic pain syndrome G89.4 [facility] [address] [place] [address] Aug, [facility] [address] [address] Aug, Macrocytosis D75.89 and Pure hypercholesterolemia E78.0 [facility] [address] [address] Aug, Pure hypercholesterolemia E78.0 [facility] [address] [address] Aug, Macrocytosis D75.89 [facility] [address] [address] Aug, Pure hypercholesterolemia E78.0 ; Type 2 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 ; MITCHELL treated with BiPAP G47.33 and Chronic pain syndrome G89.4 [facility] [id number] [place] [address] Aug, [facility] [id number] [place] [address] Aug, Hemorrhoids, unspecified hemorrhoid type K64.9 [facility] [id number] [place] [address] Aug, Chronic pain syndrome G89.4 ; Type 2 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 ; Hemorrhoids, unspecified hemorrhoid type K64.9 ; Tobacco abuse Z72.0 and Primary osteoarthritis of both knees M17.0 [facility] [id number] [place] [address] July, Chronic pain syndrome G89.4 [facility] [address] [id number] [place] [address] July, [facility] [id number] [place] [address] Jun, Chronic pain syndrome G89.4 [facility] [id number] [place] [address] Jun, Chronic pain syndrome G89.4 [facility] [id number] [place] [address] Jun, Severe major depression with psychotic features F32.3 and Posttraumatic stress disorder F43.10 [facility] [address] [place] [address] Jun, Chronic pain syndrome G89.4 [facility] [id number] [place] [address] Jun, [facility] [id number] [place] [address] May, Chronic pain syndrome G89.4 [facility] [id number] [address] May, Tobacco abuse Z72.0 [facility] [id number] [place] [address] May, [facility] [id number] [place] [address] Apr, Chronic pain syndrome G89.4 [facility] [id number] [place] [address] Apr, [facility] [id number] [place] [address] Apr, Right foot pain M79.671 [facility] [id number] [place] [address] Mar, Type 2 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 ; MITCHELL treated with BiPAP G47.33 ; Pure hypercholesterolemia E78.0 ; Chronic pain syndrome G89.4 ; Tobacco abuse Z72.0 and Obesity, morbid, BMI 40.0-49.9 E66.01 [facility] [id number] [place] [address] Mar, [facility] [id number] [place] [address] Mar, [facility] [id number] [place] [address] Mar, [facility] [id number] [place] [address] Mar, [facility] [id number] [place] [address] Mar, [facility] [id number] [place] [address] Mar, Severe major depression with psychotic features F32.3 and Posttraumatic stress disorder F43.10 [facility] [id number] [place] [address] Mar, [facility] [address] [address] Feb, [facility] [address] [address] Feb, [facility] [address] [address] Jan, [facility] [id number] [place] [address] Jan, [facility] [id number] [place] [address] Dec, Posttraumatic stress disorder F43.10 and Severe major depression with psychotic features F32.3 [facility] [address] [address] Dec, Type 2 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 ; Chronic pain syndrome G89.4 and Acute right-sided low back pain with right-sided sciatica M54.41 [facility] [address] [address] Dec, [facility] [address] [address] Dec, [facility] [address] [address] Nov, [facility] [address] [address] Nov, [facility] [address] [address] Nov, [facility] [address] [address] Oct, [facility] [address] [address] Oct, [facility] [id number] [place] [address] Sep, Dental examination Z01.20 [facility] [id number] [place] [address] Sep, [facility] [id number] [place] [address] Sep, Type 2 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 ; Chronic pain syndrome G89.4 ; Chronic prescription opiate use Z79.891 ; Injury of right index finger, sequela S69.91XS and Anejaculation N50.8 [facility] [id number] [place] [address] Aug, [facility] [id number] [place] [address] Aug, [facility] [id number] [place] [address] Aug, Cellulitis of finger of right hand L03.011 [facility] [id number] [place] [address] July, [facility] [id number] [place] [address] July, [facility] [id number] [place] [address] Jun, Onychomycosis B35.1 [facility] [id number] [place] [address] Jun, Severe major depression with psychotic features F32.3 and Posttraumatic stress disorder F43.10 [facility] [id number] [place] [address] Jun, [facility] [id number] [place] [phone] Jun, [facility] ([facility] [id number] [place] [id number] Jun, [place] [id number] [place] [phone] May, Type 2 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 [facility] ([facility] [id number] [place] [phone] May, Type 2 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 and Urinary hesitancy R39.11 [facility] ([facility] [address] [phone] May, Type 2 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 ; Left hip pain M25.552 and Benign prostatic hyperplasia with lower urinary tract symptoms, unspecified morphology N40.1 [place] [id number] [place] [phone] May, [place] [id number] [place] [phone] Apr, Severe major depression with psychotic features F32.3 and Posttraumatic stress disorder F43.10 [facility] [id number] [place] [phone] Apr, [facility] ([facility] [id number] [place] [phone] Mar, [place] [id number] [place] [phone] Mar, Dysuria R30.0 and Urinary hesitancy R39.11 [facility] ([facility] [id number] [place] [phone] Mar, Onychomycosis B35.1 [facility] [id number] [place] [phone] Mar, [facility] ([facility] [id number] [place] [phone] Feb, [facility] ([facility] [id number] [place] [address] Jan, [facility] [id number] [address] Jan, Posttraumatic stress disorder F43.10 and Severe major depression with psychotic features F32.3 [facility] [id number] [place] [address] Jan, [facility] [id number] [place] [address] Jan, Chronic pain syndrome G89.4 ; Type 2 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 ; Decreased pedal pulses R09.89 and Paresthesia of both hands R20.2 [facility] [id number] [place] [address] Dec, Posttraumatic stress disorder F43.10 and Severe major depression with psychotic features F32.3 [facility] [id number] [place] [address] Dec, [facility] [id number] [place] [address] Dec, [facility] [id number] [place] [address] Dec, Onychomycosis B35.1 [facility] [id number] [place] [address] Dec, [facility] [id number] [place] [address] Dec, [facility] [id number] [place] [address] Nov, [facility] [id number] [place] [address] Oct, Depression, major, recurrent, moderate 296.32 and Posttraumatic stress disorder 309.81 [facility] [id number] [place] [address] Oct, [facility] [id number] [place] [address] Oct, [facility] [id number] [place] [address] Oct, [place] [id number] [place] [address] Sep, Posttraumatic stress disorder 309.81 and Depression, major, recurrent, moderate 296.[address] [address] Sep, [place] [id number] [place] [address] Sep, Chronic airway obstruction, not elsewhere classified [address] [address] Sep, Onychomycosis 110.1 and DM neuro manif type II 250.[address] [address] Sep, Chronic pain 338.29 ; Chronic airway obstruction, not elsewhere classified 496 ; Osteoarthritis of knees, bilateral 715.96 and On potassium wasting diuretic therapy V58.69 [id number] [place] [address] Sep, Insect bites 919.4 ; Sinusitis 473.9 and GERD (gastroesophageal reflux disease) 530.81 [id number] [place] [address] Aug, Depression, major, recurrent, moderate 296.32 and Posttraumatic stress disorder 309.81 [place] [id number] [place] [address] Aug, [address] [address] Aug, [place] [id number] [place] [address] Aug, [facility] [address] [address] July, Major depressive disorder, recurrent episode, moderate 296.32 and Posttraumatic stress disorder 309.81 [facility] [address] [id number] [place] [address] July, [facility] [address] [facility] [id number] [place] [address] July, [facility] [address] [facility] [id number] [place] [address], [place] [address] July, [facility] [address] [id number] [place] [address], [place] [address] July, [facility] [address] [facility] [id number] [place] [address], [place] [address] Jun, [facility] [address] [id number] [address] Jun, [facility] [address] [id number] [address] May, [facility] [address] [id number] [address] May, [facility] [address] [facility] [id number] [address] May, [facility] [address] [facility] [id number] [place] [address] May, [facility] [address] [facility] [id number] [address] May, [facility] [address] [facility] [id number] [address] May, [facility] [address] [facility] [id number] [place] [address] May, [facility] [address] [facility] [id number] [place] [address] May, [facility] [address] [facility] [id number] [address] May, [facility] [place] [facility] [address] [id number] [place] [address] Apr, [facility] [place] [facility] [address] [id number] [place] [address] Apr, [facility] [place] [facility] [address] [facility] [id number] [place] [address] Apr, 2014 [facility] [place] [facility] [address] [id number] [place] [address] Apr, 2014 [facility] [place] [facility] [address] [id number] [place] [address] Apr, [facility] [place] [facility] [address] [facility] [id number] [place] [address] Apr, [facility] [place] [facility] [address] [facility] [id number] [place] [address] Apr, [facility] [place] [facility] [address] [facility] [id number] [place] [address] Apr, [facility] [place] [facility] [address] [facility] [id number] [place] [address] Apr, [facility] [place] [facility] [address] [facility] [id number] [place] [address] Mar, [facility] [place] [facility] [address] [facility] [id number] [place] [address] Mar, [facility] [place] [facility] [address] [facility] [id number] [address] Mar, [facility] [place] [facility] [address] [id number] [place] [address] Mar, [facility] [place] [facility] [address] [facility] [id number] [place] [address] Mar, [facility] [place] [facility] [address] [facility] [id number] [place] [address] Mar, [facility] [place] [facility] [address] [id number] [place] [address] 15 Mar, 2014 [facility] [place] [facility] [address] [id number] [place] [address] 15 Mar, 2014 [facility] [place] [facility] [address] [id number] [place] [address] 15 Mar, 2014 [facility] [place] [facility] [address] [id number] [place] [address] 15 Mar, 2014 [facility] [place] [facility] [address] [id number] [place] [address] 14 Mar, 2014 [facility] [place] [facility] [address] [id number] [place] [address] 14 Mar, 2014 [facility] [place] [facility] [address] [id number] [place] [address] 14 Mar, 2014 [facility] [place] [facility] [address] [id number] [place] [address] 14 Mar, 2014 [facility] [place] [facility] [address] [id number] [place] [address] 14 Mar, 2014 [facility] [place] [facility] [address] [id number] [place] [address] 14 Mar, 2014 [facility] [place] [facility] [address] [id number] [place] [address] 09 Mar, 2014 [facility] [place] [facility] [address] [id number] [place] [address] 09 Mar, 2014 [facility] [place] [facility] [address] [id number] [place] [address] 16 Feb, 2014 [facility] [place] [facility] [address] [id number] [place] [address] 16 Feb, 2014 [facility] [place] [facility] [address] [id number] [place] [address] 15 Feb, 2014 [facility] [place] [facility] [address] [id number] [place] [address] Feb, [facility] [place] [facility] [address] [id number] [place] [address] Feb, [facility] [place] [facility] [address] [id number] [place] [address] Feb, [facility] [place] [facility] [address] [facility] [id number] [place] [address] Jan, [facility] [place] [facility] [address] [id number] [place] [address] Jan, [facility] [place] [facility] [address] [id number] [place] [address] Jan, [facility] [place] [facility] [address] [id number] [place] [address] Jan, [facility] [place] [facility] [address] [id number] [place] [address] Jan, [facility] [place] [facility] [address] [id number] [place] [address] Jan, [facility] [place] [facility] [address] [id number] [place] [address] Jan, [facility] [place] [facility] [address] [id number] [place] [address] Jan, [facility] [place] [facility] [address] [id number] [place] [address] Jan, [facility] [place] [facility] [address] [id number] [place] [address] Jan, [facility] [place] [facility] [address] [id number] [place] [address] Dec, [facility] [place] [facility] [address] [id number] [place] [address] Dec, [facility] [place] [facility] [address] [facility] [id number] [place] [address] Dec, [facility] [place] [facility] [address] [id number] [place] [address] Dec, [facility] [place] [facility] [address] [id number] [place] [address] Nov, [facility] [place] [facility] [address] [id number] [place] [address] Nov, 2013 [facility] [place] [facility] [address] [id number] [place] [address] Nov, 2013 [facility] [place] [facility] [address] [id number] [place] [address] Nov, 2013 [facility] [place] [facility] [address] [id number] [place] [address] Nov, [facility] [place] [facility] [address] [id number] [place] [address] Nov, [facility] [place] [facility] [address] [id number] [place] [address] Oct, [facility] [place] [facility] [address] [id number] [place] [address] Oct, [facility] [place] [facility] [address] [id number] [place] [address] Oct, [facility] [place] [facility] [address] [id number] [place] [address] Oct, [facility] [place] [facility] [address] [id number] [place] [address] Sep, [facility] [place] [facility] [address] [id number] [place] [address] Sep, [facility] [place] [facility] [address] [id number] [place] [address] Sep, [facility] [place] [facility] [address] [id number] [place] [address] Sep, [facility] [place] [facility] [address] [id number] [place] [address] Sep, [facility] [place] [facility] [address] [id number] [place] [address] Sep, [facility] [place] [facility] [address] [id number] [place] [address] July, [facility] [place] [facility] [address] [id number] [place] [address] July, [facility] [place] [facility] [address] [id number] [place] [address] July, [facility] [place] [facility] [address] [id number] [place] [address] July, [facility] [place] [facility] [address] [id number] [place] [address] Jun, [facility] [place] [facility] [address] [id number] [place] [address] Jun, [facility] [place] [facility] [address] [id number] [place] [address] Jun, [facility] [place] [facility] [address] [id number] [place] [address] Jun, [facility] [place] [facility] [address] [id number] [place] [address] Jun, [facility] [place] [facility] [address] [id number] [place] [address] Jun, [facility] [place] [facility] [address] [id number] [place] [address] May, [facility] [place] [facility] [address] [id number] [place] [address] May, [facility] [place] [facility] [address] [id number] [place] [address] Apr, [facility] [place] [facility] [address] [id number] [place] [address] Apr, [facility] [place] [facility] [address] [id number] [place] [address] Apr, [facility] [address] [id number] [place] [address] Apr, [facility] [place] [facility] [address] [id number] [place] [address] Apr, [facility] [place] [facility] [address] [id number] [place] [address] Apr, [facility] [place] [facility] [address] [id number] [place] [address] Apr, [facility] [place] [facility] [address] [id number] [place] [address] Mar, [facility] [place] [facility] [address] [id number] [place] [address] Mar, [facility] [address] [id number] [place] [address] Mar, [facility] [address] [id number] [place] [address] Mar, [facility] [place] [facility] [address] [id number] [place] [address] Mar, [facility] [address] [id number] [place] [address] Mar, [facility] [place] [facility] [address] [id number] [place] [address] Mar, [facility] [place] [facility] [address] [id number] [place] [address] Mar, [facility] [place] [facility] [address] [id number] [place] [address] Feb, [facility] [place] [facility] [address] [id number] [place] [address] Feb, [facility] [place] [facility] [address] [id number] [place] [address] Feb, [facility] [place] [facility] [address] [id number] [place] [address] Feb, [facility] [place] [facility] [address] [id number] [place] [address] Feb, [facility] [place] [facility] [address] [id number] [place] [address] Feb, [facility] [place] [facility] [address] [id number] [place] [address] Feb, [facility] [place] [facility] [address] [id number] [place] [address] Jan, [facility] [place] [facility] [address] [id number] [place] [address] Jan, [facility] [place] [facility] [address] [id number] [place] [address] Jan, [facility] [place] [facility] [address] [id number] [place] [address] Jan, [facility] [place] [facility] [address] [id number] [place] [address] Jan, [facility] [place] [facility] [address] [id number] [place] [address] Jan, [facility] [place] [facility] [address] [id number] [place] [id number] Jan, [facility] [place] [facility] [address] [id number] [place] [address] Jan, [facility] [place] [facility] [address] [id number] [place] [address] Dec, [facility] [place] [facility] [address] [id number] [place] [address] Dec, [facility] [place] [facility] [address] [id number] [place] [address] Dec, [facility] [place] [facility] [address] [id number] [place] [address] Dec, [facility] [place] [facility] [address] [id number] [place] [address] 31 Dec, 2012 [facility] [place] [facility] [address] [id number] [place] [address] Dec, [facility] [place] [facility] [address] [id number] [place] [address] Dec, [facility] [place] [facility] [address] [id number] [place] [address] Dec, [facility] [place] [facility] [address] [id number] [place] [address] Dec, [facility] [place] [facility] [address] [id number] [place] [address] Dec, [facility] [place] [facility] [address] [id number] [place] [id number] 27 Nov, 2012 [facility] [place] [facility] [address] [id number] [place] [id number] 27 Nov, 2012 [facility] [place] [facility] [address] [id number] [place] [address] 24 Nov, 2012 [facility] [place] [facility] [address] [id number] [place] [address] 20 Nov, 2012 [facility] [place] [facility] [address] [id number] [place] [address] 19 Nov, 2012 [facility] [place] [facility] [address] [id number] [place] [address] 13 Nov, 2012 [facility] [place] [facility] [address] [id number] [place] [address] 10 Nov, 2012 [facility] [place] [facility] [address] [id number] [place] [address] 06 Nov, 2012 [facility] [place] [facility] [address] [id number] [place] [address] Oct, [facility] [place] [facility] [address] [id number] [place] [address] Oct, [facility] [address] [id number] [place] [address] Oct, [facility] [place] [facility] [address] [id number] [place] [address] Sep, [facility] [place] [facility] [address] [id number] [place] [address] Sep, [facility] [place] [facility] [address] [id number] [place] [address] Sep, [facility] [place] [facility] [address] [id number] [place] [address] Sep, [facility] [place] [facility] [address] [id number] [place] [address] Sep, [facility] [address] [id number] [place] [address] Aug, [facility] [place] [facility] [address] [id number] [place] [address] Aug, [facility] [place] [facility] [address] [id number] [place] [address] Aug, [facility] [place] [facility] [address] [id number] [place] [address] Aug, [facility] [place] [facility] [address] [id number] [place] [address] Aug, [facility] [place] [facility] [address] [id number] [place] [address] Aug, [facility] [place] [facility] [address] [id number] [place] [address] July, [facility] [place] [facility] [address] [id number] [place] [address] July, [facility] [place] [facility] [address] [id number] [place] [address] July, [facility] [place] [facility] [address] [id number] [place] [address] July, [facility] [address] [id number] [place] [address] July, [facility] [address] [id number] [place] [address] July, [facility] [address] [id number] [place] [address] Jun, [facility] [address] [id number] [place] [address] Jun, [facility] [address] [id number] [place] [address] Jun, [facility] [address] [id number] [place] [address] Jun, [facility] [address] [id number] [place] [address] May, [facility] [address] [id number] [place] [address] May, [facility] [address] [id number] [place] [address] May, [facility] [address] [id number] [place] [address] Apr, [facility] [address] [id number] [place] [address] Mar, [facility] [address] [id number] [place] [address] Mar, [facility] [place] [facility] [address] [id number] [place] [address] Mar, [facility] [address] [id number] [place] [address] 16 Mar, 2012 [facility] [address] [id number] [place] [address] Mar, [facility] [place] [facility] [address] [id number] [place] [address] Feb, [facility] [place] [facility] [address] [id number] [place] [address] Feb, [facility] [place] [facility] [address] [facility] [id number] [place] [address] Feb, [facility] [place] [facility] [address] [id number] [place] [address] Feb, [facility] [place] [facility] [address] [id number] [place] [address] Jan, [facility] [place] [facility] [address] [id number] [place] [address] Jan, [facility] [place] [facility] [address] [id number] [place] [address] Jan, [facility] [place] [facility] [address] [id number] [place] [address] Jan, [facility] [place] [facility] [address] [id number] [place] [address] Dec, [facility] [place] [facility] [address] [id number] [place] [address] Dec, [facility] [place] [facility] [address] [id number] [place] [address] Nov, [facility] [place] [facility] [address] [id number] [place] [address] Oct, [facility] [place] [facility] [address] [id number] [place] [address] Oct, [facility] [place] [facility] [address] [id number] [place] [address] Oct, [facility] [place] [facility] [address] [id number] [place] [address] Oct, [facility] [place] [facility] [address] [id number] [place] [address] Oct, [facility] [address] [id number] [place] [address] Sep, [facility] [address] [id number] [place] [address] Sep, [facility] [address] [id number] [place] [address] Aug, [address] [id number] Aug, [facility] [address] [id number] [place] [address] Aug, [facility] [address] [id number] [place] [address] July, [facility] [address] [id number] [place] [address] July, [facility] [address] [id number] [place] [address] Jun, [facility] [address] [id number] [place] [address] Jun, [facility] [address] [id number] [place] [address] Jun, [facility] [address] [id number] [place] [address] Jun, [facility] [address] [id number] [place] [address] Apr, [facility] [address] [id number] [place] [address] 15 Apr, 2011 [facility] [address] [id number] [place] [address] Apr, [facility] [address] [id number] [place] [address] Mar, [facility] [address] [id number] [place] [address] Mar, [facility] [place] [facility] [address] [id number] [place] [address] Mar, [facility] [place] [facility] [address] [id number] [place] [address] Mar, [facility] [place] [facility] [address] [id number] [place] [address] Mar, [facility] [place] [facility] [address] [id number] [place] [address] Jan, [facility] [place] [facility] [address] [id number] [place] [address] Jan, [facility] [place] [facility] [address] [id number] [place] [address] Jan, [facility] [place] [facility] [address] [id number] [place] [address] Mar, [facility] [place] [facility] [address] [id number] [place] [address] Mar, [facility] [place] [facility] [address] [id number] [place] [address] Feb, [facility] [place] [facility] [address] [id number] [place] [address] 16 Feb, 2010 [facility] [place] [facility] [address] [id number] [place] [address] Feb, [facility] [place] [facility] [address] [id number] [place] [address] Jan, [facility] [place] [facility] [address] [id number] [place] [address] Jan, [facility] [place] [facility] [address] [id number] [place] [address] Dec, [facility] [place] [facility] [address] [id number] [address] Dec, [facility] [id number] [address] May, [facility] [id number] [address] Apr, [facility] [id number] [address] Feb, [facility] [id number] [address] Feb, [facility] [id number] [address] Jan, [facility] [id number] [address] Jan, [facility] [id number] [address] Jan, [facility] [id number] [address] Jan, [facility] [id number] [address] Jan, IMMUNIZATIONS No Known Immunizations SOCIAL HISTORY Never Assessed REASON FOR VISIT EMR-[facility] PLAN OF CARE VITAL SIGNS MEDICATIONS Unknown [...]
--- OUTSIDE RECORDS SUMMARY | 2018-10-04 06:18 | XMS REPORT ---
Author Author Migration, Doctor Organization [facility] Address Unknown Phone Unavailable Care Team Providers Care Exchange Architect Name Role Phone Migration, Doctor Unavailable Unavailable PROBLEMS Type Condition ICD9-CM Code DOA43-ZL Code Onset Dates Condition Status SNOMED Code Problem Nocturnal hypoxia G47.34 Active 546806871 Problem Non-ischemic cardiomyopathy I42.9 Active 18023137 Problem Primary osteoarthritis of both knees M17.0 Active 848012711 Problem Obesity, morbid, BMI 40.0-49.9 E66.01 Active 438360161 Problem Posttraumatic stress disorder F43.10 Active 80539382 Problem History of DVT (deep vein thrombosis) Z86.718 Active 433412560 Problem History of weight loss surgery Z98.84 Active 763010136 Problem Chronic systolic (congestive) heart failure I50.22 Active 617187336 Problem Essential hypertension I10 Active 75229327 Problem Type 2 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 Active 874162512 Problem Chronic pain syndrome G89.4 Active 221769328 Problem Acute right-sided low back pain with right-sided sciatica M54.41 Active 78469573 Problem Chronic prescription opiate use Z79.891 Active 344227432 Problem Tobacco abuse Z72.0 Active 441271867 Problem Macrocytosis D75.89 Active 158177050 Problem BMI 45.0-49.9, adult Z68.42 Active 020863387 Problem Pure hypercholesterolemia E78.00 Active 719878164 Problem Gastroesophageal reflux disease, esophagitis presence not specified K21.9 Active 733672304 Problem Obstructive sleep apnea syndrome G47.33 Active 63851266 Problem Chronic obstructive pulmonary disease, unspecified COPD type J44.9 Active 76117878 Problem MITCHELL treated with BiPAP G47.33 Active 18053614 Problem Mild episode of recurrent major depressive disorder F33.0 Active 597107643 Problem Mood disorder F39 Active 83427886 Problem Primary insomnia F51.01 Active 7059577 Problem Chronic systolic congestive heart failure I50.22 Active 980946164 ALLERGIES No Information ENCOUNTERS Encounter Location Date Diagnosis [place] [address] [address] Aug, [place] [address] [id number] [place] [address] July, [place] [address] [address] 14 Jul, 2018 Encounter for Medicare annual [...] and Chronic systolic congestive heart failure I50.22 [place] [id number] [address] 10 Jul, 2018 Type 2 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 [place] [id number] [place] [address] July, [place] [id number] [place] [address] July, Urinary hesitancy R39.11 [place] [address] [address] July, Chronic pain syndrome G89.4 [place] [address] [address] Jun, Mass of shoulder region R22.30 [place] [address] [place] [address] Jun, Mass of shoulder region R22.30 [place] [address] [address] Jun, Chronic pain syndrome G89.4 [place] [address] [place] [address] 18 May, 2018 Type 2 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 ; Mass of shoulder region R22.30 and Morbid obesity E66.01 [place] [id number] [place] [address] 07 May, 2018 Chronic pain syndrome G89.4 [facility] [id number] [place] [address] 04 May, 2018 Mood disorder F39 ; Posttraumatic stress disorder F43.10 and Morbid obesity E66.01 [place] [address] [place] [address] 14 Apr, 2018 Major depressive disorder, recurrent episode, unspecified severity F33.9 [place] [id number] [place] [address] 13 Apr, 2018 Major depressive disorder, recurrent episode, unspecified severity F33.9 [place] [address] [place] [address] 07 Apr, 2018 Chronic pain syndrome G89.4 [place] [address] [place] [address] Mar, Pain in right foot M79.671 ; Type 2 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 ; Chronic pain syndrome G89.4 and BMI 50.0-59.9, adult Z68.43 [place] [address] [address] Mar, [facility] [address] [place] [address] Mar, [place] [id number] [place] [address] Mar, Chronic pain syndrome G89.4 [facility] [address] [place] [address] Feb, Chronic pain syndrome G89.4 [place] [id number] [place] [address] Jan, Obstructive sleep apnea syndrome G47.33 [facility] [id number] [place] [address] Jan, Type 2 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 ; Chronic pain syndrome G89.4 ; Gastroesophageal reflux disease, esophagitis presence not specified K21.9 ; Essential hypertension I10 ; Pure hypercholesterolemia E78.00 ; Chronic prescription opiate use Z79.891 ; Obstructive sleep apnea syndrome G47.33 and BMI 50.0-59.9, adult Z68.43 [facility] [id number] [place] [address] Jan, History of weight loss surgery Z98.84 [place] [id number] [place] [address] 16 Jan, 2018 [place] [address] [address] Jan, Chronic pain syndrome G89.4 [facility] [id number] [place] [address] Jan, [facility] [address] [place] [address] Jan, [facility] [id number] [place] [address] Dec, [facility] [address] [place] [address] Dec, Chronic pain syndrome G89.4 [facility] [address] [place] [address] Dec, Injury of left knee, subsequent encounter S89.92XD and Acute pain of left knee M25.562 [facility] [address] [place] [address] Dec, [facility] [address] [place] [address] 11 Oct, 2018 Injury of left knee, initial encounter S89.92XA and BMI 45.0-49.9, adult Z68.42 [place] [address] [place] [address] Nov, Chest discomfort R07.89 ; Shortness of breath R06.02 ; Chronic systolic congestive heart failure I50.22 and Type 2 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 [place] [address] [address] Nov, Chronic pain syndrome G89.4 [place] [address] [address] Oct, BMI 45.0-49.9, adult Z68.42 ; Type 2 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 ; Chronic pain syndrome G89.4 ; Gastroesophageal reflux disease, esophagitis presence not specified K21.9 ; Decreased pedal pulses R09.89 and Precordial pain R07.2 [place] [address] [address] [place] [address] Oct, [place] [address] [address] Oct, Mood disorder F39 [place] [address] [address] [place] [address] Oct, Mood disorder F39 ; Posttraumatic stress disorder F43.10 and BMI 45.0-49.9, adult Z68.42 [place] [address] [address] [place] [address] Sep, Primary osteoarthritis of both knees M17.0 and Chronic pain syndrome G89.4 [place] [address] [address] Sep, Mood disorder F39 and Posttraumatic stress disorder F43.10 [place] [address] [address] [place] [address] Aug, Primary osteoarthritis of both knees M17.0 and Chronic pain syndrome G89.4 [facility] [address] [place] [address] July, Primary osteoarthritis of both knees M17.0 and Chronic pain syndrome G89.4 [facility] [address] [place] [address] July, Type 2 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 ; Essential hypertension I10 ; Pure hypercholesterolemia E78.0 ; Chronic prescription opiate use Z79.891 ; Tobacco abuse Z72.0 ; Primary osteoarthritis of both knees M17.0 ; Primary insomnia F51.01 and BMI 45.0-49.9, adult Z68.42 [place] [address] [address] 08 Jul, 2017 Medicare annual wellness visit, [...] specified K21.9 and Encounter for immunization Z23 [place] [address] [address] [id number] [place] [address] July, Primary osteoarthritis of both knees M17.0 and Chronic pain syndrome G89.4 [facility] [address] [place] [address] Jun, Infection of right ear H66.91 ; Wheezing on auscultation R06.2 and BMI 45.0-49.9, adult Z68.42 [facility] [address] [address] Jun, [place] [address] [address] Jun, Primary osteoarthritis of both knees M17.0 and Chronic pain syndrome G89.4 [place] [address] [address] May, [facility] [id number] [place] [address] May, BMI 45.0-49.9, adult Z68.42 ; Mood disorder F39 and Posttraumatic stress disorder F43.10 [facility] [address] [place] [address] May, [facility] [address] [place] [address] May, Primary osteoarthritis of both knees M17.0 and Chronic pain syndrome G89.4 [facility] [address] [place] [address] May, Mood disorder F39 [facility] [address] [place] [address] Apr, Type 2 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 [facility] [address] [place] [address] Apr, [facility] [address] [place] [address] Apr, Primary osteoarthritis of both knees M17.0 and Chronic pain syndrome G89.4 [facility] [address] [place] [address] Apr, Mood disorder F39 [facility] [address] [place] [address] Mar, Mood disorder F39 and Posttraumatic stress disorder F43.10 [facility] [address] [place] [address] Mar, Primary osteoarthritis of both knees M17.0 and Chronic pain syndrome G89.4 [facility] [address] [place] [address] Feb, Primary osteoarthritis of both knees M17.0 and Chronic pain syndrome G89.4 [facility] [address] [place] [address] Feb, Mood disorder F39 [facility] [id number] [place] [address] 30 Jan, 2017 Type 2 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 ; Primary osteoarthritis of both knees M17.0 ; Mood disorder F39 ; Obesity, morbid, BMI 40.0-49.9 E66.01 ; Chronic prescription opiate use Z79.891 ; Acute suppurative otitis media of both ears without spontaneous rupture of tympanic membranes, recurrence not specified H66.003 and BMI 45.0-49.9, adult Z68.42 [facility] [address] [place] [address] Jan, Primary osteoarthritis of both knees M17.0 and Chronic pain syndrome G89.4 [facility] [address] [place] [address] Dec, Mood disorder F39 and Posttraumatic stress disorder F43.10 [facility] [address] [place] [address] Dec, Primary osteoarthritis of both knees M17.0 and Chronic pain syndrome G89.4 [facility] [address] [place] [address] 18 Nov, 2016 Chronic pain syndrome G89.4 [facility] [address] [place] [address] 15 Nov, 2016 Primary osteoarthritis of both knees M17.0 and Chronic pain syndrome G89.4 [facility] [address] [place] [address] 13 Nov, 2016 Type 2 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 and Chronic pain syndrome G89.4 [facility] [address] [place] [address] 12 Nov, 2016 Posttraumatic stress disorder F43.10 and Mood disorder F39 [facility] [address] [address] Oct, Chronic pain syndrome G89.4 [facility] [address] [place] [address] Oct, Type 2 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 ; BMI 45.0-49.9, adult Z68.42 ; Primary osteoarthritis of both knees M17.0 and Skin lesion L98.9 [facility] [address] [address] Oct, Chronic pain syndrome G89.4 [facility] [address] [place] [address] Sep, Chronic pain syndrome G89.4 [facility] [address] [place] [address] Sep, [facility] [address] [place] [address] Sep, Chronic pain syndrome G89.4 [facility] [address] [address] Aug, Chronic pain syndrome G89.4 [facility] [address] [place] [address] Aug, [facility] [address] [address] Aug, Macrocytosis D75.89 and Pure hypercholesterolemia E78.0 [facility] [address] [address] Aug, Pure hypercholesterolemia E78.0 [facility] [address] [address] Aug, Macrocytosis D75.89 [facility] [address] [address] Aug, Pure hypercholesterolemia E78.0 ; Type 2 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 ; MITCHELL treated with BiPAP G47.33 and Chronic pain syndrome G89.4 [facility] [address] [place] [address] Aug, [facility] [address] [place] [address] Aug, Hemorrhoids, unspecified hemorrhoid type K64.9 [facility] [address] [place] [address] Aug, Chronic pain syndrome G89.4 ; Type 2 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 ; Hemorrhoids, unspecified hemorrhoid type K64.9 ; Tobacco abuse Z72.0 and Primary osteoarthritis of both knees M17.0 [facility] [address] [place] [address] July, Chronic pain syndrome G89.4 [facility] [address] [place] [address] July, [facility] [address] [place] [address] Jun, Chronic pain syndrome G89.4 [facility] [address] [place] [address] Jun, Chronic pain syndrome G89.4 [facility] [address] [place] [address] Jun, Severe major depression with psychotic features F32.3 and Posttraumatic stress disorder F43.10 [facility] [address] [place] [address] Jun, Chronic pain syndrome G89.4 [facility] [address] [place] [address] Jun, [facility] [address] [place] [address] May, Chronic pain syndrome G89.4 [facility] [address] [address] May, Tobacco abuse Z72.0 [facility] [address] [place] [address] May, [facility] [address] [place] [address] Apr, Chronic pain syndrome G89.4 [facility] [address] [place] [address] Apr, [facility] [address] [place] [address] Apr, Right foot pain M79.671 [facility] [address] [place] [address] Mar, Type 2 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 ; MITCHELL treated with BiPAP G47.33 ; Pure hypercholesterolemia E78.0 ; Chronic pain syndrome G89.4 ; Tobacco abuse Z72.0 and Obesity, morbid, BMI 40.0-49.9 E66.01 [facility] [address] [place] [address] Mar, [facility] [address] [place] [address] Mar, [facility] [address] [place] [address] Mar, [facility] [address] [place] [address] Mar, [facility] [address] [place] [address] Mar, [facility] [address] [place] [address] Mar, Severe major depression with psychotic features F32.3 and Posttraumatic stress disorder F43.10 [facility] [address] [place] [address] Mar, [facility] [address] [address] Feb, [facility] [address] [address] Feb, [facility] [address] [address] Jan, [facility] [address] [place] [address] Jan, [facility] [address] [place] [address] Dec, Posttraumatic stress disorder F43.10 and Severe major depression with psychotic features F32.3 [facility] [address] [address] Dec, Type 2 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 ; Chronic pain syndrome G89.4 and Acute right-sided low back pain with right-sided sciatica M54.41 [facility] [address] [address] Dec, [facility] [address] [address] Dec, [facility] [address] [address] Nov, [facility] [address] [address] Nov, [facility] [address] [address] Nov, [facility] [address] [address] Oct, [facility] [address] [address] Oct, [facility] [address] [place] [address] Sep, Dental examination Z01.20 [facility] [address] [place] [address] Sep, [facility] [address] [place] [address] Sep, Type 2 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 ; Chronic pain syndrome G89.4 ; Chronic prescription opiate use Z79.891 ; Injury of right index finger, sequela S69.91XS and Anejaculation N50.8 [facility] [address] [place] [address] Aug, [facility] [address] [place] [address] Aug, [facility] [address] [place] [address] Aug, Cellulitis of finger of right hand L03.011 [facility] [address] [place] [address] July, [facility] [address] [place] [address] July, [facility] [id number] [place] [address] Jun, Onychomycosis B35.1 [facility] [address] [place] [address] Jun, Severe major depression with psychotic features F32.3 and Posttraumatic stress disorder F43.10 [facility] [address] [place] [address] Jun, [facility] [address] [place] [address] Jun, [facility] [address] [place] [address] Jun, [place] [address] [place] [address] May, Type 2 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 [facility] [address] [place] [address] May, Type 2 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 and Urinary hesitancy R39.11 [facility] [address] [address] May, Type 2 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 ; Left hip pain M25.552 and Benign prostatic hyperplasia with lower urinary tract symptoms, unspecified morphology N40.1 [place] [address] [place] [address] May, [place] [address] [place] [address] Apr, Severe major depression with psychotic features F32.3 and Posttraumatic stress disorder F43.10 [place] [address] [place] [address] Apr, [facility] [address] [place] [address] Mar, [place] [address] [place] [address] Mar, Dysuria R30.0 and Urinary hesitancy R39.11 [facility] [id number] [place] [id number] Mar, Onychomycosis B35.1 [facility] [id number] [place] [phone] Mar, [facility] [id number] [place] [phone] Feb, [facility] [id number] [place] [phone] Jan, [facility] [id number] [address] Jan, Posttraumatic stress disorder F43.10 and Severe major depression with psychotic features F32.3 [facility] [id number] [place] [id number] Jan, [facility] [id number] [place] [phone] Jan, Chronic pain syndrome G89.4 ; Type 2 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 ; Decreased pedal pulses R09.89 and Paresthesia of both hands R20.2 [facility] [id number] [place] [phone] Dec, Posttraumatic stress disorder F43.10 and Severe major depression with psychotic features F32.3 [facility] [id number] [place] [address] Dec, [facility] [id number] [place] [address] Dec, [facility] [id number] [place] [address] Dec, Onychomycosis B35.1 [facility] [id number] [place] [address] Dec, [facility] [id number] [place] [address] Dec, [facility] [id number] [place] [address] Nov, [facility] [id number] [place] [address] Oct, Depression, major, recurrent, moderate 296.32 and Posttraumatic stress disorder 309.81 [facility] [id number] [place] [address] Oct, [facility] [id number] [place] [address] Oct, [facility] [id number] [place] [address] Oct, [place] [id number] [place] [address] Sep, Posttraumatic stress disorder 309.81 and Depression, major, recurrent, moderate 296.[address] [address] Sep, [place] [id number] [place] [address] Sep, Chronic airway obstruction, not elsewhere classified [address] [address] Sep, Onychomycosis 110.1 and DM neuro manif type II 250.[address] [address] Sep, Chronic pain 338.29 ; Chronic airway obstruction, not elsewhere classified 496 ; Osteoarthritis of knees, bilateral 715.96 and On potassium wasting diuretic therapy V58.69 [id number] [place] [address] Sep, Insect bites 919.4 ; Sinusitis 473.9 and GERD (gastroesophageal reflux disease) 530.81 [id number] [place] [address] Aug, Depression, major, recurrent, moderate 296.32 and Posttraumatic stress disorder 309.81 [place] [id number] [place] [address] Aug, [address] [address] Aug, [place] [id number] [place] [address] Aug, [facility] [address] [address] July, Major depressive disorder, recurrent episode, moderate 296.32 and Posttraumatic stress disorder 309.81 [facility] [address] [id number] [place] [address] July, [facility] [address] [facility] [id number] [place] [address] July, [facility] [address] [facility] [id number] [place] [address], [place] [address] July, [facility] [address] [id number] [place] [address], [place] [address] July, [facility] [address] [facility] [id number] [place] [address], [place] [address] Jun, [facility] [address] [id number] [place] [address] Jun, [facility] [address] [id number] [place] [address] May, [facility] [address] [id number] [place] [address] May, [facility] [address] [facility] [id number] [address] May, [facility] [address] [facility] [id number] [place] [address] May, [facility] [address] [facility] [id number][place] [address] May, [facility] [address] [facility] [id number], [place] [address] May, [facility] [address] [facility] [id number], [place] [address] May, [facility] [address] [facility] [id number][place] [address] May, [facility] [address] [facility] [id number][place] [address] May, [facility] [place] [facility] [address] [id number] [place] [address] Apr, [facility] [place] [facility] [address] [id number] [place] [address] Apr, [facility] [place] [facility] [address] [facility] [id number] [place] [address] Apr, 2014 [facility] [place] [facility] [address] [id number] [place] [address] Apr, 2014 [facility] [place] [facility] [address] [id number] [place] [address] Apr, [facility] [place] [facility] [address] [facility] [id number] [place] [address] Apr, [facility] [place] [facility] [address] [facility] [id number] [place] [address] Apr, [facility] [place] [facility] [address] [facility] [id number] [place] [address] Apr, [facility] [place] [facility] [address] [facility] [id number] [place] [address] Apr, [facility] [place] [facility] [address] [facility] [id number] [place] [address] Mar, [facility] [place] [facility] [address] [facility] [id number] [place] [address] Mar, [facility] [place] [facility] [address] [facility] [id number] [address] Mar, [facility] [place] [facility] [address] [id number] [place] [address] Mar, [facility] [place] [facility] [address] [facility] [id number][place] [address] Mar, [facility] [place] [facility] [address] [facility] [id number], [place] [address] Mar, [facility] [place] [facility] [address] [id number] [place] [address] 15 Mar, 2014 [facility] [place] [facility] [address] [id number] [place] [address] 15 Mar, 2014 [facility] [place] [facility] [address] [id number] [place] [address] 15 Mar, 2014 [facility] [place] [facility] [address] [id number] [place] [address] 15 Mar, 2014 [facility] [place] [facility] [address] [id number] [place] [address] 14 Mar, 2014 [facility] [place] [facility] [address] [id number] [place] [address] 14 Mar, 2014 [facility] [place] [facility] [address] [id number] [place] [address] 14 Mar, 2014 [facility] [place] [facility] [address] [id number] [place] [address] 14 Mar, 2014 [facility] [place] [facility] [address] [id number] [place] [address] 14 Mar, 2014 [facility] [place] [facility] [address] [id number] [place] [address] 14 Mar, 2014 [facility] [place] [facility] [address] [id number] [place] [address] 09 Mar, 2014 [facility] [place] [facility] [address] [id number] [place] [address] 09 Mar, 2014 [facility] [place] [facility] [address] [id number] [place] [address] 16 Feb, 2014 [facility] [place] [facility] [address] [id number] [place] [address] 16 Feb, 2014 [facility] [place] [facility] [address] [id number] [place] [address] 15 Feb, 2014 [facility] [place] [facility] [address] [id number] [address] Feb, [facility] [place] [facility] [address] [id number] [place] [address] Feb, [facility] [place] [facility] [address] [id number] [place] [address] Feb, [facility] [place] [facility] [address] [facility] [id number] [place] [address] Jan, [facility] [place] [facility] [address] [id number] [place] [address] Jan, [facility] [place] [facility] [address] [id number] [place] [address] Jan, [facility] [place] [facility] [address] [id number] [place] [address] Jan, [facility] [place] [facility] [address] [id number] [place] [address] Jan, [facility] [place] [facility] [address] [id number], [place] [address] Jan, [facility] [place] [facility] [address] [id number], [place] [address] Jan, [facility] [place] [facility] [address] [id number], [place] [address] Jan, [facility] [place] [facility] [address] [id number], [place] [address] Jan, [facility] [place] [facility] [address] [id number][place] [address] Jan, [facility] [place] [facility] [address] [id number], [place] [address] Dec, [facility] [place] [facility] [address] [id number], [place] [address] Dec, [facility] [place] [facility] [address] [facility] [id number], [place] [address] Dec, [facility] [place] [facility] [address] [id number] [place] [address] Dec, [facility] [place] [facility] [address] [id number] [place] [address] Nov, [facility] [place] [facility] [address] [id number] [place] [address] Nov, 2013 [facility] [place] [facility] [address] [id number] [place] [address] Nov, 2013 [facility] [place] [facility] [address] [id number] [place] [address] Nov, 2013 [facility] [place] [facility] [address] [id number] [place] [address] Nov, [facility] [place] [facility] [address] [id number] [place] [address] Nov, [facility] [place] [facility] [address] [id number] [place] [address] Oct, [facility] [place] [facility] [address] [id number] [place] [address] Oct, [facility] [place] [facility] [address] [id number] [place] [address] Oct, [facility] [place] [facility] [address] [id number] [place] [address] Oct, [facility] [place] [facility] [address] [id number] [place] [address] Sep, [facility] [place] [facility] [address] [id number] [place] [address] Sep, [facility] [place] [facility] [address] [id number] [place] [address] Sep, [facility] [place] [facility] [address] [id number] [place] [address] Sep, [facility] [place] [facility] [address] [id number] [place] [address] Sep, [facility] [place] [facility] [address] [id number] [place] [address] Sep, [facility] [place] [facility] [address] [id number] [place] [address] July, [facility] [place] [facility] [address] [id number] [place] [address] July, [facility] [place] [facility] [address] [id number] [place] [address] July, [facility] [place] [facility] [address] [id number] [place] [address] July, [facility] [place] [facility] [address] [id number] [place] [address] Jun, [facility] [place] [facility] [address] [id number] [place] [address] Jun, [facility] [place] [facility] [address] [id number] [place] [address] Jun, [facility] [place] [facility] [address] [id number] [place] [address] Jun, [facility] [place] [facility] [address] [id number] [place] [address] Jun, [facility] [place] [facility] [address] [id number] [place] [address] Jun, [facility] [place] [facility] [address] [id number] [place] [address] May, [facility] [place] [facility] [address] [id number] [place] [address] May, [facility] [place] [facility] [address] [id number] [place] [address] Apr, [facility] [place] [facility] [address] [id number] [place] [address] Apr, [facility] [place] [facility] [address] [id number] [place] [address] Apr, [facility] [address] [id number] [place] [address] Apr, [facility] [place] [facility] [address] [id number] [place] [address] Apr, [facility] [place] [facility] [address] [id number] [place] [address] Apr, [facility] [place] [facility] [address] [id number] [place] [address] Apr, [facility] [place] [facility] [address] [id number] [place] [address] Mar, [facility] [place] [facility] [address] [id number] [place] [address] Mar, [facility] [address] [id number] [place] [address] Mar, [facility] [address] [id number] [place] [address] Mar, [facility] [place] [facility] [address] [id number] [place] [address] Mar, [facility] [address] [id number] [place] [address] Mar, [facility] [place] [facility] [address] [id number] [place] [address] Mar, [facility] [place] [facility] [address] [id number] [place] [address] Mar, [facility] [place] [facility] [address] [id number] [place] [address] Feb, [facility] [place] [facility] [address] [id number] [place] [address] Feb, [facility] [place] [facility] [address] [id number] [place] [address] Feb, [facility] [place] [facility] [address] [id number] [place] [address] Feb, [facility] [place] [facility] [address] [id number] [place] [address] Feb, [facility] [place] [facility] [address] [id number] [place] [address] Feb, [facility] [place] [facility] [address] [id number] [place] [address] Feb, [facility] [place] [facility] [address] [id number] [place] [address] Jan, [facility] [place] [facility] [address] [id number] [place] [address] Jan, [facility] [place] [facility] [address] [id number] [place] [address] Jan, [facility] [place] [facility] [address] [id number], [place] [address] Jan, [facility] [place] [facility] [address] [id number] [place] [address] Jan, [facility] [place] [facility] [address] [id number], [place] [address] Jan, [facility] [place] [facility] [address] [id number][place] [id number] Jan, [facility] [place] [facility] [address] [id number][place] [id number] Jan, [facility] [place] [facility] [address] [id number], [place] [address] Dec, [facility] [place] [facility] [address] [id number] [place] [address] Dec, [facility] [place] [facility] [address] [id number], [place] [address] Dec, [facility] [place] [facility] [address] [id number], [place] [address] Dec, [facility] [place] [facility] [address] [id number] [place] [address] 31 Dec, 2012 [facility] [place] [facility] [address] [id number], [place] [address] Dec, [facility] [place] [facility] [address] [id number], [place] [address] Dec, [facility] [place] [facility] [address] [id number], [place] [address] Dec, [facility] [place] [facility] [address] [id number] [place] [address] Dec, [facility] [place] [facility] [address] [id number], [place] [address] Dec, [facility] [place] [facility] [address] [id number][place] [id number] 27 Nov, 2012 [facility] [place] [facility] [address] [id number][place] [id number] 27 Nov, 2012 [facility] [place] [facility] [address] [id number], [place] [address] 24 Nov, 2012 [facility] [place] [facility] [address] [id number], [place] [address] 20 Nov, 2012 [facility] [place] [facility] [address] [id number], [place] [address] 19 Nov, 2012 [facility] [place] [facility] [address] [id number], [place] [address] 13 Nov, 2012 [facility] [place] [facility] [address] [id number], [place] [address] 10 Nov, 2012 [facility] [place] [facility] [address] [id number][place] [address] 06 Nov, 2012 [facility] [place] [facility] [address] [id number], [place] [address] Oct, [facility] [place] [facility] [address] [id number] [place] [address] Oct, [facility] [address] [id number] [place] [address] Oct, [facility] [place] [facility] [address] [id number] [place] [address] Sep, [facility] [place] [facility] [address] [id number] [place] [address] Sep, [facility] [place] [facility] [address] [id number] [place] [address] Sep, [facility] [place] [facility] [address] [id number] [place] [address] Sep, [facility] [place] [facility] [address] [id number] [place] [address] Sep, [facility] [address] [id number] [place] [address] Aug, [facility] [place] [facility] [address] [id number] [place] [address] Aug, [facility] [place] [facility] [address] [id number] [place] [address] Aug, [facility] [place] [facility] [address] [id number] [place] [address] Aug, [facility] [place] [facility] [address] [id number] [place] [address] Aug, [facility] [place] [facility] [address] [id number] [place] [address] Aug, [facility] [place] [facility] [address] [id number] [place] [address] July, [facility] [place] [facility] [address] [id number] [place] [address] July, [facility] [place] [facility] [address] [id number] [place] [address] July, [facility] [place] [facility] [address] [id number] [place] [address] July, [facility] [address] [id number] [place] [address] July, [facility] [address] [id number] [place] [address] July, [facility] [address] [id number] [place] [address] Jun, [facility] [address] [id number] [place] [address] Jun, [facility] [address] [id number] [place] [address] Jun, [facility] [address] [id number] [place] [address] Jun, [facility] [address] [id number] [place] [address] May, [facility] [address] [id number] [place] [address] May, [facility] [address] [id number] [place] [address] May, [facility] [address] [id number] [place] [address] Apr, [facility] [address] [id number] [place] [address] Mar, [facility] [address] [id number] [place] [address] Mar, [facility] [place] [facility] [address] [id number] [place] [address] Mar, [facility] [address] [id number] [place] [address] 16 Mar, 2012 [facility] [address] [id number] [address] Mar, [facility] [place] [facility] [address] [id number] [place] [address] Feb, [facility] [place] [facility] [address] [id number] [place] [address] Feb, [facility] [place] [facility] [address] [facility] [id number] [place] [address] Feb, [facility] [place] [facility] [address] [id number] [place] [address] Feb, [facility] [place] [facility] [address] [id number] [place] [address] Jan, [facility] [place] [facility] [address] [id number] [place] [address] Jan, [facility] [place] [facility] [address] [id number] [place] [address] Jan, [facility] [place] [facility] [address] [id number] [place] [address] Jan, [facility] [place] [facility] [address] [id number] [place] [address] Dec, [facility] [place] [facility] [address] [id number] [place] [address] Dec, [facility] [place] [facility] [address] [id number] [address] Nov, [facility] [place] [facility] [address] [id number] [address] Oct, [facility] [place] [facility] [address] [id number] [place] [address] Oct, [facility] [place] [facility] [address] [id number] [place] [address] Oct, [facility] [place] [facility] [address] [id number] [place] [address] Oct, [facility] [place] [facility] [address] [id number] [place] [address] Oct, [facility] [address] [id number] [place] [address] Sep, [facility] [address] [id number] [place] [address] Sep, [facility] [address] [id number] [place] [address] Aug, [address] [id number] Aug, [facility] [address] [id number] [place] [address] Aug, [facility] [address] [id number] [place] [address] July, [facility] [address] [id number] [place] [address] July, [facility] [address] [id number] [place] [address] Jun, [facility] [address] [id number] [place] [address] Jun, [facility] [address] [id number] [place] [address] Jun, [facility] [address] [id number] [place] [address] Jun, [facility] [address] [id number] [place] [address] Apr, [facility] [address] [id number] [place] [address] 15 Apr, 2011 [facility] [address] [id number] [place] [address] Apr, [facility] [address] [id number] [place] [address] Mar, [facility] [address] [id number] [place] [address] Mar, [facility] [place] [facility] [address] [id number] [place] [address] Mar, [facility] [place] [facility] [address] [id number] [place] [address] Mar, [facility] [place] [facility] [address] [id number] [place] [address] Mar, [facility] [place] [facility] [address] [id number] [place] [address] Jan, [facility] [place] [facility] [address] [id number] [place] [address] Jan, [facility] [place] [facility] [address] [id number] [place] [address] Jan, [facility] [place] [facility] [address] [id number] [place] [address] Mar, [facility] [place] [facility] [address] [id number] [place] [address] Mar, [facility] [place] [facility] [address] [id number] [place] [address] Feb, [facility] [place] [facility] [address] [id number] [place] [address] 16 Feb, 2010 [facility] [place] [facility] [address] [id number] [place] [address] Feb, [facility] [place] [facility] [address] [id number] [place] [address] Jan, [facility] [place] [facility] [address] [id number] [place] [address] Jan, [facility] [place] [facility] [address] [id number] [place] [address] Dec, [facility] [place] [facility] [address] [id number] [place] [address] Dec, [facility] [address] [id number] [address] May, [facility] [id number], [place] [address] Apr, [facility] [id number], [place] [address] Feb, [facility] [id number] [address] Feb, [facility] [id number] [address] Jan, [facility] [id number] [address] Jan, [facility] [id number] [address] Jan, [facility] [id number] [address] Jan, [facility] [address] [id number] [address] Jan, IMMUNIZATIONS No Known Immunizations SOCIAL HISTORY Never Assessed REASON FOR VISIT [place] [place] [...]
--- OUTSIDE RECORDS SUMMARY | 2018-10-04 06:19 | XMS REPORT ---
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 Name Role Phone Migration, Doctor Unavailable Unavailable PROBLEMS Type Condition ICD9-CM Code NSC78-YD Code Onset Dates Condition Status SNOMED Code Problem Nocturnal hypoxia G47.34 Active 855079593 Problem Primary osteoarthritis of both knees M17.0 Active 472820034 Problem Type 2 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 Active 500144323 Problem Pure hypercholesterolemia E78.0 Active 785496348 Problem Chronic pain syndrome G89.4 Active 811539464 Problem Chronic systolic (congestive) heart failure I50.22 Active 071068421 Problem Tobacco abuse Z72.0 Active 417574287 Problem Posttraumatic stress disorder F43.10 Active 52245666 Problem Non-ischemic cardiomyopathy I42.9 Active 16650411 Problem Gastroesophageal reflux disease, esophagitis presence not specified K21.9 Active 238778537 Problem History of weight loss surgery Z98.84 Active 267394038 Problem Chronic obstructive pulmonary disease, unspecified COPD type J44.9 Active 22500003 Problem Chronic prescription opiate use Z79.891 Active 587354717 Problem MITCHELL treated with BiPAP G47.33 Active 97295594 Problem Severe major depression with psychotic features F32.3 Active 23898275 Problem Acute right-sided low back pain with right-sided sciatica M54.41 Active 86431494 Problem Obesity, morbid, BMI 40.0-49.9 E66.01 Active 886770130 Problem Macrocytosis D75.89 Active 527315244 Problem BMI 45.0-49.9, adult Z68.42 Active 735315612 Problem Pure hypercholesterolemia E78.00 Active 282686216 Problem Essential hypertension I10 Active 13804073 Problem Obstructive sleep apnea syndrome G47.33 Active 72722949 Problem History of DVT (deep vein thrombosis) Z86.718 Active 754323620 Problem Major depressive disorder, recurrent episode, unspecified severity F33.9 Active 79710365 Problem Mild episode of recurrent major depressive disorder F33.0 Active 961024857 Problem Mood disorder F39 Active 94757353 Problem Primary insomnia F51.01 Active 0712483 Problem Chronic systolic congestive heart failure I50.22 Active 591311356 ALLERGIES No Information ENCOUNTERS Encounter Location Date Diagnosis [facility] [id number] [place] [address] Aug, [facility] [id number] [place] [address] July, [facility] [id number] [place] [address] July, Chronic pain syndrome G89.4 [facility] [id number] [place] [address] Jun, Mass of shoulder region R22.30 [facility] [id number] [place] [address] Jun, Mass of shoulder region R22.30 [facility] [id number] [place] [address] Jun, Chronic pain syndrome G89.4 [facility] [id number] [place] [address] May, Type 2 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 ; Mass of shoulder region R22.30 and Morbid obesity E66.01 [facility] [address] [address] May, Chronic pain syndrome G89.4 [facility] [id number] [place] [address] 04 May, 2018 Mood disorder F39 ; Posttraumatic stress disorder F43.10 and Morbid obesity E66.01 [facility] [id number] [place] [address] 14 Apr, 2018 Major depressive disorder, recurrent episode, unspecified severity F33.9 [facility] [id number] [place] [address] 13 Apr, 2018 Major depressive disorder, recurrent episode, unspecified severity F33.9 [facility] [id number] [place] [address] 07 Apr, 2018 Chronic pain syndrome G89.4 [facility] [address] [address] 14 Mar, 2018 Pain in right foot M79.671 ; Type 2 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 ; Chronic pain syndrome G89.4 and BMI 50.0-59.9, adult Z68.43 [facility] [id number] [place] [address] 11 Mar, 2018 [facility] [address] [address] Mar, [facility] [address] [address] Mar, Chronic pain syndrome G89.4 [facility] [address] [address] Feb, Chronic pain syndrome G89.4 [facility] [address] [address] 30 Jan, 2018 Obstructive sleep apnea syndrome G47.33 [facility] [id number] [place] [address] 26 Jan, 2018 Type 2 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 ; Chronic pain syndrome G89.4 ; Gastroesophageal reflux disease, esophagitis presence not specified K21.9 ; Essential hypertension I10 ; Pure hypercholesterolemia E78.00 ; Chronic prescription opiate use Z79.891 ; Obstructive sleep apnea syndrome G47.33 and BMI 50.0-59.9, adult Z68.43 [facility] [address] [address] 20 Jan, 2018 History of weight loss surgery Z98.84 [facility] [id number] [place] [address] 16 Jan, 2018 [facility] [address] [address] 16 Jan, 2018 Chronic pain syndrome G89.4 [facility] [id number] [place] [address] 13 Jan, 2018 [facility] [id number] [place] [address] Jan, [facility] [id number] [place] [address] Dec, [facility] [id number] [place] [address] Dec, Chronic pain syndrome G89.4 [facility] [id number] [place] [address] Dec, Injury of left knee, subsequent encounter S89.92XD and Acute pain of left knee M25.562 [facility] [id number] [place] [address] Dec, [facility] [id number] [place] [address] Dec, Injury of left knee, initial encounter S89.92XA and BMI 45.0-49.9, adult Z68.42 [facility] [address] [place] [address] Nov, Chest discomfort R07.89 ; Shortness of breath R06.02 ; Chronic systolic congestive heart failure I50.22 and Type 2 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 [facility] [address] [place] [address] Nov, Chronic pain syndrome G89.4 [facility] [id number] [place] [address] Oct, BMI 45.0-49.9, adult Z68.42 ; Type 2 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 ; Chronic pain syndrome G89.4 ; Gastroesophageal reflux disease, esophagitis presence not specified K21.9 ; Decreased pedal pulses R09.89 and Precordial pain R07.2 [facility] [address] [place] [address] Oct, [facility] [id number] [place] [address] Oct, Mood disorder F39 [facility] [id number] [place] [address] Oct, Mood disorder F39 ; Posttraumatic stress disorder F43.10 and BMI 45.0-49.9, adult Z68.42 [facility] [id number] [place] [address] Sep, Primary osteoarthritis of both knees M17.0 and Chronic pain syndrome G89.4 [facility] [id number] [place] [address] Sep, Mood disorder F39 and Posttraumatic stress disorder F43.10 [facility] [id number] [place] [address] Aug, Primary osteoarthritis of both knees M17.0 and Chronic pain syndrome G89.4 [facility] [address] [place] [address] July, Primary osteoarthritis of both knees M17.0 and Chronic pain syndrome G89.4 [facility] [address] [place] [address] July, Type 2 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 ; Essential hypertension I10 ; Pure hypercholesterolemia E78.0 ; Chronic prescription opiate use Z79.891 ; Tobacco abuse Z72.0 ; Primary osteoarthritis of both knees M17.0 ; Primary insomnia F51.01 and BMI 45.0-49.9, adult Z68.42 [facility] [address] [place] [address] July, Medicare annual wellness visit, initial Z00.00 [...] specified K21.9 and Encounter for immunization Z23 [facility] [address] [address] July, Primary osteoarthritis of both knees M17.0 and Chronic pain syndrome G89.4 [facility] [id number] [place] [address] Jun, Infection of right ear H66.91 ; Wheezing on auscultation R06.2 and BMI 45.0-49.9, adult Z68.42 [facility] [address] [address] Jun, [facility] [address] [address] Jun, Primary osteoarthritis of both knees M17.0 and Chronic pain syndrome G89.4 [facility] [id number] [place] [address] May, [facility] [id number] [place] [address] May, 2018 BMI 45.0-49.9, adult Z68.42 ; Mood disorder F39 and Posttraumatic stress disorder F43.10 [facility] [id number] [place] [address] May, [facility] [address] [address] May, Primary osteoarthritis of both knees M17.0 and Chronic pain syndrome G89.4 [facility] [id number] [place] [address] May, Mood disorder F39 [facility] [address] [address] Apr, Type 2 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 [facility] [address] [place] [address] Apr, [facility] [address] [place] [address] Apr, Primary osteoarthritis of both knees M17.0 and Chronic pain syndrome G89.4 [facility] [address] [place] [address] Apr, Mood disorder F39 [facility] [id number] [place] [address] Mar, Mood disorder F39 and Posttraumatic stress disorder F43.10 [facility] [id number] [place] [address] Mar, Primary osteoarthritis of both knees M17.0 and Chronic pain syndrome G89.4 [facility] [address] [place] [address] Feb, Primary osteoarthritis of both knees M17.0 and Chronic pain syndrome G89.4 [facility] [address] [place] [address] Feb, Mood disorder F39 [facility] [id number] [place] [address] Jan, Type 2 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 ; Primary osteoarthritis of both knees M17.0 ; Mood disorder F39 ; Obesity, morbid, BMI 40.0-49.9 E66.01 ; Chronic prescription opiate use Z79.891 ; Acute suppurative otitis media of both ears without spontaneous rupture of tympanic membranes, recurrence not specified H66.003 and BMI 45.0-49.9, adult Z68.42 [facility] [address] [address] Jan, Primary osteoarthritis of both knees M17.0 and Chronic pain syndrome G89.4 [facility] [address] [address] Dec, Mood disorder F39 and Posttraumatic stress disorder F43.10 [facility] [address] [address] 13 Dec, 2016 Primary osteoarthritis of both knees M17.0 and Chronic pain syndrome G89.4 [facility] [id number] [place] [address] 18 Nov, 2016 Chronic pain syndrome G89.4 [facility] [id number] [place] [address] 15 Nov, 2016 Primary osteoarthritis of both knees M17.0 and Chronic pain syndrome G89.4 [facility] [id number] [place] [address] 13 Nov, 2016 Type 2 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 and Chronic pain syndrome G89.4 [facility] [id number] [place] [address] 12 Nov, 2016 Posttraumatic stress disorder F43.10 and Mood disorder F39 [facility] [id number] [place] [address] Oct, Chronic pain syndrome G89.4 [facility] [address] [place] [address] 16 Oct, 2016 Type 2 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 ; BMI 45.0-49.9, adult Z68.42 ; Primary osteoarthritis of both knees M17.0 and Skin lesion L98.9 [facility] [address] [place] [address] Oct, Chronic pain syndrome G89.4 [facility] [address] [address] Sep, Chronic pain syndrome G89.4 [facility] [id number] [place] [address] Sep, [facility] [address] [address] Sep, Chronic pain syndrome G89.4 [facility] [address] [address] Aug, Chronic pain syndrome G89.4 [facility] [id number] [place] [address] Aug, [facility] [address] [place] [address] Aug, Macrocytosis D75.89 and Pure hypercholesterolemia E78.0 [facility] [address] [place] [address] Aug, Pure hypercholesterolemia E78.0 [facility] [address] [address] Aug, Macrocytosis D75.89 [facility] [address] [address] Aug, Pure hypercholesterolemia E78.0 ; Type 2 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 ; MITCHELL treated with BiPAP G47.33 and Chronic pain syndrome G89.4 [facility] [address] [address] Aug, [facility] [address] [address] Aug, Hemorrhoids, unspecified hemorrhoid type K64.9 [facility] [address] [address] Aug, Chronic pain syndrome G89.4 ; Type 2 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 ; Hemorrhoids, unspecified hemorrhoid type K64.9 ; Tobacco abuse Z72.0 and Primary osteoarthritis of both knees M17.0 [facility] [address] [address] July, Chronic pain syndrome G89.4 [facility] [id number] [place] [address] July, [facility] [id number] [place] [address] Jun, Chronic pain syndrome G89.4 [facility] [id number] [place] [address] Jun, Chronic pain syndrome G89.4 [facility] [id number] [place] [address] Jun, Severe major depression with psychotic features F32.3 and Posttraumatic stress disorder F43.10 [facility] [id number] [place] [address] Jun, Chronic pain syndrome G89.4 [facility] [id number] [place] [address] Jun, [facility] [id number] [place] [address] May, Chronic pain syndrome G89.4 [facility] [id number] [place] [address] May, Tobacco abuse Z72.0 [facility] [id number] [place] [address] May, [facility] [id number] [place] [address] Apr, Chronic pain syndrome G89.4 [facility] [address] [place] [address] Apr, [facility] [id number] [place] [address] Apr, Right foot pain M79.671 [facility] [address] [place] [address] Mar, Type 2 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 ; MITCHELL treated with BiPAP G47.33 ; Pure hypercholesterolemia E78.0 ; Chronic pain syndrome G89.4 ; Tobacco abuse Z72.0 and Obesity, morbid, BMI 40.0-49.9 E66.01 [facility] [id number] [place] [address] Mar, [facility] [id number] [place] [address] Mar, [facility] [id number] [place] [address] Mar, [facility] [id number] [place] [address] Mar, [facility] [id number] [place] [address] Mar, [facility] [id number] [place] [address] Mar, Severe major depression with psychotic features F32.3 and Posttraumatic stress disorder F43.10 [facility] [id number] [place] [address] Mar, [facility] [id number] [place] [address] Feb, [facility] [id number] [place] [address] Feb, [facility] [id number] [place] [address] Jan, [facility] [id number] [place] [address] Jan, [facility] [id number] [place] [address] Dec, Posttraumatic stress disorder F43.10 and Severe major depression with psychotic features F32.3 [facility] [id number] [place] [address] Dec, Type 2 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 ; Chronic pain syndrome G89.4 and Acute right-sided low back pain with right-sided sciatica M54.41 [facility] [address] [address] Dec, [facility] [id number] [place] [address] Dec, [facility] [id number] [place] [address] Nov, [facility] [id number] [place] [address] Nov, [facility] [id number] [place] [address] Nov, [facility] [id number] [place] [address] Oct, [facility] [id number] [place] [address] Oct, [facility] [id number] [place] [address] Sep, Dental examination Z01.20 [facility] [id number] [place] [address] Sep, [facility] [id number] [place] [address] Sep, Type 2 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 ; Chronic pain syndrome G89.4 ; Chronic prescription opiate use Z79.891 ; Injury of right index finger, sequela S69.91XS and Anejaculation N50.8 [facility] [address] [place] [address] Aug, [facility] [id number] [place] [address] Aug, [facility] [address] [address] Aug, Cellulitis of finger of right hand L03.011 [facility] [address] [address] July, [facility] [address] [address] July, [facility] [id number] [place] [address] Jun, Onychomycosis B35.1 [facility] [id number] [place] [address] Jun, Severe major depression with psychotic features F32.3 and Posttraumatic stress disorder F43.10 [facility] [address] [address] Jun, [facility] [id number] [place] [address] Jun, [facility] [address] [address] Jun, [facility] [id number] [place] [address] May, Type 2 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 [facility] [address] [address] May, Type 2 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 and Urinary hesitancy R39.11 [facility] [address] [address] May, Type 2 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 ; Left hip pain M25.552 and Benign prostatic hyperplasia with lower urinary tract symptoms, unspecified morphology N40.1 [facility] [address] [address] May, [facility] [address] [address] Apr, Severe major depression with psychotic features F32.3 and Posttraumatic stress disorder F43.10 [facility] [id number] [place] [address] 08 Apr, 2015 [facility] [id number] [place] [address] Mar, [facility] [id number] [place] [address] Mar, Dysuria R30.0 and Urinary hesitancy R39.11 [facility] [id number] [place] [address] Mar, Onychomycosis B35.1 [facility] [id number] [place] [address] Mar, [facility] [id number] [place] [address] Feb, [facility] [id number] [place] [address] Jan, [facility] [id number] [place] [address] Jan, Posttraumatic stress disorder F43.10 and Severe major depression with psychotic features F32.3 [facility] [id number] [place] [address] Jan, [facility] [id number] [place] [address] Jan, Chronic pain syndrome G89.4 ; Type 2 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 ; Decreased pedal pulses R09.89 and Paresthesia of both hands R20.2 [facility] [id number] [place] [address] 28 Dec, 2014 Posttraumatic stress disorder F43.10 and Severe major depression with psychotic features F32.3 [facility] [address] [address] Dec, [facility] [id number] [place] [address] Dec, [facility] [address] [address] Dec, Onychomycosis B35.1 [facility] [id number] [place] [phone] Dec, [facility] [id number] [place] [phone] Dec, [facility] [id number] [place] [id number] Nov, [facility] [id number] [place] [id number] Oct, Depression, major, recurrent, moderate 296.32 and Posttraumatic stress disorder 309.81 [facility] [id number] [address] Oct, [facility] [id number] [place] [phone] Oct, [facility] [address] [address] Oct, [facility] [id number] [place] [phone] Sep, Posttraumatic stress disorder 309.81 and Depression, major, recurrent, moderate 296.32 [facility] [id number] [address] Sep, [facility] [id number] [place] [address] Sep, Chronic airway obstruction, not elsewhere classified 496 [facility] [id number] [address] Sep, Onychomycosis 110.1 and DM neuro manif type II 250.60 [facility] [id number] [place] [address] Sep, Chronic pain 338.29 ; Chronic airway obstruction, not elsewhere classified 496 ; Osteoarthritis of knees, bilateral 715.96 and On potassium wasting diuretic therapy V58.69 [facility] [id number] [place] [address] Sep, Insect bites 919.4 ; Sinusitis 473.9 and GERD (gastroesophageal reflux disease) 530.81 [facility] [address] [address] Aug, Depression, major, recurrent, moderate 296.32 and Posttraumatic stress disorder 309.81 [place] [address] [address] Aug, [facility] [address] [address] Aug, [facility] [id number] [place] [address] Aug, [facility] [address] [address] July, Major depressive disorder, recurrent episode, moderate 296.32 and Posttraumatic stress disorder 309.81 [facility] [id number] [place] [address] July, [facility] [id number] [place] [address] July, [facility] [id number] [place] [address] July, [facility] [address] [address] July, [facility] [id number] [place] [address] Jun, [facility] [address] [address] 13 Jun, 2014 [facility] [place] [facility] [address] [id number] [place] [address] May, [facility] [place] [facility] [address] [id number] [place] [address] May, [facility] [place] [facility] [address] [id number] [place] [address] May, [facility] [place] [facility] [address] [id number] [place] [address] May, [facility] [place] [facility] [address] [id number] [place] [address] May, [facility] [place] [facility] [address] [facility] [id number] [place] [address] May, [facility] [place] [facility] [address] [facility] [id number] [place] [address] May, [facility] [place] [facility] [address] [id number] [place] [address] May, [facility] [place] [facility] [address] [id number] [place] [address] May, [facility] [place] [facility] [address] [facility] [id number] [place] [address] Apr, 2014 [facility] [place] [facility] [address] [id number] [place] [address] Apr, 2014 [facility] [place] [facility] [address] [id number] [place] [address] Apr, [facility] [place] [facility] [address] [id number] [place] [address] Apr, 2014 [facility] [place] [facility] [address] [id number] [place] [address] Apr, 2014 [facility] [place] [facility] [address] [facility] [id number] [place] [address] 05 Apr, 2014 [facility] [place] [facility] [address] [id number] [place] [address] Apr, [facility] [place] [facility] [address] [id number] [place] [address] Apr, [facility] [place] [facility] [address] [id number] [place] [address] Apr, [facility] [place] [facility] [address] [id number] [place] [address] Mar, [facility] [place] [facility] [address] [id number] [place] [address] Mar, [facility] [place] [facility] [address] [id number] [place] [address] Mar, [facility] [place] [facility] [address] [id number] [place] [address] Mar, [facility] [place] [facility] [address] [id number] [place] [address] Mar, [facility] [place] [facility] [address] [id number] [place] [address] Mar, [facility] [place] [facility] [address] [id number] [place] [address] Mar, [facility] [place] [facility] [address] [id number] [place] [address] Mar, [facility] [place] [facility] [address] [id number] [place] [address] Mar, [facility] [place] [facility] [address] [id number] [place] [address] Mar, [facility] [place] [facility] [address] [id number] [place] [address] Mar, [facility] [place] [facility] [address] [id number] [place] [address] 14 Mar, 2014 [facility] [place] [facility] [address] [id number] [place] [address] 14 Mar, 2014 [facility] [place] [facility] [address] [id number] [place] [address] 14 Mar, 2014 [facility] [place] [facility] [address] [id number] [place] [address] 14 Mar, 2014 [facility] [place] [facility] [address] [id number] [place] [address] Mar, [facility] [place] [facility] [address] [id number] [place] [address] 09 Mar, 2014 [facility] [place] [facility] [address] [id number] [place] [address] Mar, [facility] [place] [facility] [address] [id number] [place] [address] 16 Feb, 2014 [facility] [place] [facility] [address] [id number] [place] [address] 16 Feb, 2014 [facility] [place] [facility] [address] [id number] [place] [address] 15 Feb, 2014 [facility] [place] [facility] [address] [id number] [place] [address] 15 Feb, 2014 [facility] [place] [facility] [address] [id number] [place] [address] 15 Feb, 2014 [facility] [place] [facility] [address] [id number] [place] [address] Feb, [facility] [place] [facility] [address] [id number] [place] [address] Jan, [facility] [place] [facility] [address] [id number] [place] [address] Jan, [facility] [place] [facility] [address] [id number] [place] [address] 17 Jan, 2014 [facility] [place] [facility] [address] [id number] [place] [address] 17 Jan, 2014 [facility] [place] [facility] [address] [id number] [place] [address] Jan, [facility] [place] [facility] [address] [id number] [place] [address] Jan, [facility] [place] [facility] [address] [id number] [place] [address] Jan, [facility] [place] [facility] [address] [id number] [place] [address] Jan, [facility] [place] [facility] [address] [id number] [place] [address] Jan, [facility] [place] [facility] [address] [id number] [place] [address] Jan, [facility] [place] [facility] [address] [id number] [place] [address] Dec, [facility] [place] [facility] [address] [id number] [place] [address] Dec, [facility] [place] [facility] [address] [id number] [place] [address] Dec, [facility] [place] [facility] [address] [id number] [place] [address] Dec, [facility] [place] [facility] [address] [id number] [place] [address] 16 Nov, 2013 [facility] [place] [facility] [address] [id number] [place] [address] 16 Nov, 2013 [facility] [place] [facility] [address] [id number] [place] [address] 03 Sep, 2013 [facility] [place] [facility] [address] [id number] [place] [address] 03 Sep, 2013 [facility] [place] [facility] [address] [id number] [place] [address] 03 Sep, 2013 [facility] [place] [facility] [address] [id number] [place] [address] Nov, [facility] [place] [facility] [address] [id number] [place] [address] Oct, [facility] [place] [facility] [address] [id number] [place] [address] Oct, [facility] [place] [facility] [address] [id number] [place] [address] Oct, [facility] [place] [facility] [address] [id number] [place] [address] Oct, [facility] [place] [facility] [address] [id number] [place] [address] Sep, [facility] [place] [facility] [address] [id number] [place] [address] Sep, [facility] [place] [facility] [address] [id number] [place] [address] Sep, [facility] [place] [facility] [address] [id number] [place] [address] Sep, [facility] [place] [facility] [address] [id number] [place] [address] Sep, [facility] [place] [facility] [address] [id number] [place] [address] Sep, [facility] [place] [facility] [address] [id number] [place] [address] July, [facility] [place] [facility] [address] [id number] [place] [address] July, [facility] [place] [facility] [address] [id number] [place] [address] July, [facility] [place] [facility] [address] [id number] [place] [address] July, [facility] [place] [facility] [address] [id number] [place] [address] Jun, [facility] [place] [facility] [address] [id number] [place] [address] Jun, [facility] [place] [facility] [address] [id number] [place] [address] Jun, [facility] [place] [facility] [address] [id number] [place] [address] Jun, [facility] [place] [facility] [address] [id number] [place] [address] Jun, [facility] [place] [facility] [address] [id number] [place] [address] Jun, [facility] [place] [facility] [address] [id number] [place] [address] May, [facility] [place] [facility] [address] [id number] [place] [address] May, [facility] [place] [facility] [id number] [place] [address] Apr, [facility] [place] [facility] [address] [id number] [place] [address] Apr, [facility] [place] [facility] [id number] [place] [address] Apr, [facility] [place] [facility] [address] [facility] [id number] [place] [address] Apr, [facility] [place] [facility] [id number] [place] [address] Apr, [facility] [place] [facility] [address] [facility] [id number] [place] [address] Apr, [facility] [place] [facility] [address] [id number] [place] [address] Apr, [facility] [place] [facility] [address] [facility] [id number] [place] [address] Mar, [facility] [place] [facility] [address] [facility] [id number] [place] [address] Mar, [facility] [place] [facility] [address] [id number] [place] [address] Mar, [facility] [place] [facility] [address] [id number] [place] [address] Mar, [facility] [place] [facility] [address] [id number] [place] [address] Mar, [facility] [place] [facility] [address] [id number] [place] [address] Mar, [facility] [place] [facility] [address] [id number] [place] [address] Mar, [facility] [place] [facility] [address] [id number] [place] [address] Mar, [facility] [place] [facility] [address] [id number] [place] [address] Feb, [facility] [place] [facility] [address] [id number] [place] [address] Feb, [facility] [place] [facility] [address] [id number] [place] [address] Feb, [facility] [place] [facility] [address] [id number] [address] Feb, [facility] [place] [facility] [address] [id number] [place] [address] Feb, [facility] [place] [facility] [address] [id number] [place] [address] Feb, [facility] [place] [facility] [address] [id number] [place] [address] Feb, [facility] [place] [facility] [address] [id number] [place] [address] Jan, [facility] [place] [facility] [address] [id number] [place] [address] Jan, [facility] [place] [facility] [address] [id number] [place] [address] Jan, [facility] [place] [facility] [address] [id number] [place] [address] Jan, [facility] [place] [facility] [address] [id number] [place] [address] Jan, [facility] [place] [facility] [address] [id number] [place] [address] Jan, [facility] [place] [facility] [address] [id number] [address] Jan, [facility] [place] [facility] [address] [id number] [address] Jan, [facility] [place] [facility] [address] [id number] [place] [address] Dec, [facility] [place] [facility] [address] [id number] [place] [address] Dec, [facility] [place] [facility] [address] [id number] [place] [address] Dec, [facility] [place] [facility] [address] [id number] [place] [address] Dec, [facility] [place] [facility] [address] [id number] [place] [address] Dec, [facility] [place] [facility] [address] [id number] [place] [address] Dec, [facility] [place] [facility] [address] [id number] [place] [address] Dec, [facility] [place] [facility] [address] [id number] [place] [address] Dec, [facility] [place] [facility] [address] [id number] [place] [address] Dec, [facility] [place] [facility] [address] [id number] [place] [address] Dec, [facility] [place] [facility] [address] [id number] [place] [address] 27 Nov, 2012 [facility] [place] [facility] [address] [id number] [place] [address] 27 Nov, 2012 [facility] [place] [facility] [address] [id number] [place] [address] 24 Nov, 2012 [facility] [address] [id number] [place] [address] 20 Nov, 2012 [facility] [place] [facility] [address] [id number] [place] [address] 19 Nov, 2012 [facility] [address] [id number] [place] [address] 13 Nov, 2012 [facility] [address] [id number] [place] [address] 10 Nov, 2012 [facility] [address] [id number] [place] [address] 06 Nov, 2012 [facility] [address] [id number] [place] [address] Oct, [facility] [place] [facility] [address] [id number] [place] [address] Oct, [facility] [address] [id number] [place] [address] Oct, [facility] [place] [facility] [address] [id number] [place] [address] Sep, [facility] [place] [facility] [address] [id number] [place] [address] Sep, [facility] [place] [facility] [address] [id number] [place] [address] Sep, [facility] [place] [facility] [address] [id number] [place] [address] Sep, [facility] [place] [facility] [address] [id number] [place] [address] Sep, [facility] [place] [facility] [address] [id number] [place] [address] Aug, [facility] [address] [id number] [place] [address] Aug, [facility] [address] [id number] [place] [address] Aug, [facility] [address] [id number] [place] [address] Aug, [facility] [address] [id number] [place] [address] Aug, [facility] [address] [id number] [place] [address] Aug, [facility] [address] [id number] [place] [address] July, [facility] [address] [id number] [place] [address] July, [facility] [address] [id number] [place] [address] July, [facility] [address] [id number] [place] [address] July, [facility] [address] [id number] [place] [address] July, [facility] [address] [id number] [place] [address] July, [facility] [address] [id number] [place] [address] Jun, [facility] [place] [facility] [address] [id number] [place] [address] Jun, [facility] [address] [id number] [place] [address] Jun, [facility] [address] [id number] [place] [address] Jun, [facility] [address] [id number] [place] [address] May, [facility] [address] [id number] [place] [address] May, [facility] [address] [id number] [place] [address] May, [facility] [address] [id number] [place] [address] Apr, [facility] [address] [id number] [place] [address] Mar, [facility] [address] [id number] [place] [address] 18 Mar, 2012 [facility] [address] [id number] [place] [address] 17 Mar, 2012 [facility] [address] [id number] [place] [address] 16 Mar, 2012 [facility] [address] [id number] [place] [address] Mar, [facility] [address] [id number] [place] [address] Feb, [facility] [address] [id number] [place] [address] Feb, [facility] [place] [facility] [address] [id number] [place] [address] Feb, [facility] [place] [facility] [address] [id number] [place] [address] Feb, [facility] [place] [facility] [address] [id number] [place] [address] Jan, [facility] [place] [facility] [address] [id number] [place] [address] Jan, [facility] [place] [facility] [address] [id number] [place] [address] Jan, [facility] [address] [id number] [place] [address] Jan, [facility] [address] [id number] [place] [address] Dec, [facility] [address] [id number] [place] [address] Dec, [facility] [address] [id number] [place] [address] Nov, [facility] [address] [id number] [place] [address] Oct, [facility] [address] [id number] [place] [address] Oct, [facility] [address] [id number] [place] [address] Oct, [facility] [address] [id number] [place] [address] Oct, [facility] [address] [id number] [place] [address] Oct, [facility] [address] [id number] [place] [address] Sep, [facility] [address] [id number] [place] [address] Sep, [facility] [address] [id number] [place] [address] Aug, [facility] [address] [place] [id number] Aug, [facility] [address] [id number] [place] [address] Aug, [facility] [address] [id number] [place] [address] July, [facility] [place] [facility] [address] [id number] [place] [address] July, [facility] [place] [facility] [address] [id number] [place] [address] Jun, [facility] [place] [facility] [address] [id number] [place] [address] Jun, [facility] [place] [facility] [address] [id number] [place] [address] 16 Jun, 2011 [facility] [place] [facility] [address] [id number] [place] [address] Jun, [facility] [place] [facility] [address] [id number] [place] [address] 15 Apr, 2011 [facility] [place] [facility] [address] [id number] [place] [address] 15 Apr, 2011 [facility] [place] [facility] [address] [id number] [place] [address] Apr, [facility] [place] [facility] [address] [id number] [place] [address] Mar, [facility] [place] [facility] [address] [id number] [place] [address] Mar, [facility] [place] [facility] [address] [id number] [place] [address] Mar, [facility] [place] [facility] [address] [id number] [place] [address] Mar, [facility] [place] [facility] [address] [id number] [place] [address] Mar, [facility] [place] [facility] [address] [id number] [place] [address] Jan, [facility] [place] [facility] [address] [id number] [place] [address] Jan, [facility] [place] [facility] [address] [id number] [place] [address] Jan, [facility] [place] [facility] [address] [id number] [place] [address] 17 Mar, 2010 [facility] [place] [facility] [address] [id number] [place] [address] Mar, [facility] [place] [facility] [address] [id number] [place] [address] Feb, [facility] [place] [facility] [address] [id number] [place] [address] Feb, [facility] [place] [facility] [address] [id number] [place] [address] Feb, [facility] [place] [facility] [address] [id number] [place] [address] Jan, [facility] [place] [facility] [address] [id number] [place] [address] Jan, [facility] [place] [facility] [address] [id number] [place] [address] Dec, [facility] [place] [facility] [address] [id number] [place] [address] Dec, [facility] [place] [facility] [address] [id number] [place] [address] May, [facility] [place] [facility] [address] [id number] [place] [address] 10 Apr, 2009 [facility] [place] [facility] [address] [id number] [place] [address] Feb, [facility] [place] [facility] [address] [id number] [place] [address] Feb, [facility] [place] [facility] [address] [id number] [place] [address] Jan, [facility] [place] [facility] [address] [id number] [place] [address] Jan, [facility] [place] [facility] [address] [facility] [id number] [place] [address] Jan, [facility] [address] [facility] [id number] [place] [address] Jan, [facility] [address] [facility] [id number] [place] [address] Jan, IMMUNIZATIONS No Known Immunizations SOCIAL HISTORY Never Assessed REASON FOR VISIT EMR-[facility] [place] PLAN OF CARE VITAL SIGNS MEDICATIONS Unknown [...] Hospitalization History ED then admitted to [facility]-cardiac stepdown-chest pain 02/2010 Hospitalization History Possible DVT-sono negative 06/2010 Hospitalization History cellulitis to bilat legs
--- OUTSIDE RECORDS SUMMARY | 2018-10-04 06:20 | XMS REPORT ---
Author Author Migration, Doctor Organization [facility] Address Unknown Phone Unavailable Care Team Providers Care Home Staging Specialist Name Role Phone Migration, Doctor Unavailable Unavailable PROBLEMS Type Condition ICD9-CM Code RNV92-ZW Code Onset Dates Condition Status SNOMED Code Problem Nocturnal hypoxia G47.34 Active 833846729 Problem Primary osteoarthritis of both knees M17.0 Active 065974496 Problem Type 2 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 Active 923040842 Problem Pure hypercholesterolemia E78.0 Active 881790692 Problem Chronic pain syndrome G89.4 Active 492040243 Problem Chronic systolic (congestive) heart failure I50.22 Active 067874540 Problem Tobacco abuse Z72.0 Active 337432779 Problem Posttraumatic stress disorder F43.10 Active 13553151 Problem Non-ischemic cardiomyopathy I42.9 Active 41166848 Problem Gastroesophageal reflux disease, esophagitis presence not specified K21.9 Active 431902659 Problem History of weight loss surgery Z98.84 Active 563212085 Problem Chronic obstructive pulmonary disease, unspecified COPD type J44.9 Active 96791143 Problem Chronic prescription opiate use Z79.891 Active 695357241 Problem MITCHELL treated with BiPAP G47.33 Active 28055428 Problem Severe major depression with psychotic features F32.3 Active 50008531 Problem Acute right-sided low back pain with right-sided sciatica M54.41 Active 79193501 Problem Obesity, morbid, BMI 40.0-49.9 E66.01 Active 753158962 Problem Macrocytosis D75.89 Active 838924732 Problem BMI 45.0-49.9, adult Z68.42 Active 020174648 Problem Pure hypercholesterolemia E78.00 Active 544145713 Problem Essential hypertension I10 Active 82797011 Problem Obstructive sleep apnea syndrome G47.33 Active 91369495 Problem History of DVT (deep vein thrombosis) Z86.718 Active 739249368 Problem Major depressive disorder, recurrent episode, unspecified severity F33.9 Active 19383063 Problem Mild episode of recurrent major depressive disorder F33.0 Active 209864572 Problem Mood disorder F39 Active 17197122 Problem Primary insomnia F51.01 Active 6113184 Problem Chronic systolic congestive heart failure I50.22 Active 812412198 ALLERGIES No Information ENCOUNTERS Encounter Location Date Diagnosis [facility] [id number] [place] [id number] Aug, [facility] [id number] [place] [address] July, [facility] [id number] [place] [address] Jun, Mass of shoulder region R22.30 [facility] [id number] [place] [address] Jun, Mass of shoulder region R22.30 [facility] [id number] [place] [address] Jun, Chronic pain syndrome G89.4 [facility] [id number] [place] [address] May, Type 2 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 ; Mass of shoulder region R22.30 and Morbid obesity E66.01 [facility] [id number] [place] [address] May, Chronic pain syndrome G89.4 [facility] [address] [place] [address] May, Mood disorder F39 ; Posttraumatic stress disorder F43.10 and Morbid obesity E66.01 [facility] [address] [place] [address] 14 Apr, 2018 Major depressive disorder, recurrent episode, unspecified severity F33.9 [facility] [id number] [place] [address] 13 Apr, 2018 Major depressive disorder, recurrent episode, unspecified severity F33.9 [facility] [address] [place] [address] Apr, Chronic pain syndrome G89.4 [facility] [id number] [place] [address] Mar, Pain in right foot M79.671 ; Type 2 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 ; Chronic pain syndrome G89.4 and BMI 50.0-59.9, adult Z68.43 [facility] [address] [address] Mar, [facility] [address] [address] Mar, [facility] [address] [address] Mar, Chronic pain syndrome G89.4 [facility] [address] [address] Feb, Chronic pain syndrome G89.4 [facility] [address] [address] Jan, Obstructive sleep apnea syndrome G47.33 [facility] [address] [address] Jan, Type 2 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 ; Chronic pain syndrome G89.4 ; Gastroesophageal reflux disease, esophagitis presence not specified K21.9 ; Essential hypertension I10 ; Pure hypercholesterolemia E78.00 ; Chronic prescription opiate use Z79.891 ; Obstructive sleep apnea syndrome G47.33 and BMI 50.0-59.9, adult Z68.43 [facility] [id number] [place] [address] Jan, History of weight loss surgery Z98.84 [facility] [address] [address] Jan, [facility] [address] [address] Jan, Chronic pain syndrome G89.4 [facility] [address] [place] [address] Jan, [facility] [id number] [place] [address] Jan, [facility] [id number] [place] [address] Dec, [facility] [id number] [place] [address] Dec, Chronic pain syndrome G89.4 [facility] [id number] [place] [address] Dec, Injury of left knee, subsequent encounter S89.92XD and Acute pain of left knee M25.562 [facility] [id number] [place] [address] Dec, [facility] [id number] [place] [address] Dec, Injury of left knee, initial encounter S89.92XA and BMI 45.0-49.9, adult Z68.42 [facility] [id number] [place] [address] Nov, Chest discomfort R07.89 ; Shortness of breath R06.02 ; Chronic systolic congestive heart failure I50.22 and Type 2 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 [facility] [id number] [place] [address] 20 Nov, 2017 Chronic pain syndrome G89.4 [facility] [address] [place] [address] Oct, BMI 45.0-49.9, adult Z68.42 ; Type 2 diabetes mellitus with diabetic polyneuropathy E11.42 ; Chronic pain syndrome G89.4 ; Gastroesophageal reflux disease, esophagitis presence not specified K21.9 ; Decreased pedal pulses R09.89 and Precordial pain R07.2 [facility] [id number] [place] [address] Oct, [facility] [address] [address] Oct, Mood disorder F39 [facility] [address] [place] [address] Oct, Mood disorder F39 ; Posttraumatic stress disorder F43.10 and BMI 45.0-49.9, adult Z68.42 [facility] [address] [place] [address] Sep, Primary osteoarthritis of both knees M17.0 and Chronic pain syndrome G89.4 [facility] [address] [place] [address] Sep, Mood disorder F39 and Posttraumatic stress disorder F43.10 [facility] [address] [place] [address] Aug, Primary osteoarthritis of both knees M17.0 and Chronic pain syndrome G89.4 [facility] [address] [place] [address] July, Primary osteoarthritis of both knees M17.0 and Chronic pain syndrome G89.4 [facility] [address] [address] July, Type 2 diabetes mellitus with diabetic polyneuropathy E11.42 ; Essential hypertension I10 ; Pure hypercholesterolemia E78.0 ; Chronic prescription opiate use Z79.891 ; Tobacco abuse Z72.0 ; Primary osteoarthritis of both knees M17.0 ; Primary insomnia F51.01 and BMI 45.0-49.9, adult Z68.42 [facility] [address] [place] [address] July, Medicare annual wellness visit, initial Z00.00 [...] specified K21.9 and Encounter for immunization Z23 [facility] [id number] [place] [address] July, Primary osteoarthritis of both knees M17.0 and Chronic pain syndrome G89.4 [facility] [id number] [place] [address] Jun, Infection of right ear H66.91 ; Wheezing on auscultation R06.2 and BMI 45.0-49.9, adult Z68.42 [facility] [address] [address] Jun, [facility] [address] [address] Jun, Primary osteoarthritis of both knees M17.0 and Chronic pain syndrome G89.4 [facility] [id number] [place] [address] May, [facility] [address] [address] May, BMI 45.0-49.9, adult Z68.42 ; Mood disorder F39 and Posttraumatic stress disorder F43.10 [facility] [id number] [place] [address] May, [facility] [id number] [place] [address] May, Primary osteoarthritis of both knees M17.0 and Chronic pain syndrome G89.4 [facility] [id number] [place] [address] May, Mood disorder F39 [facility] [id number] [place] [address] 07 Apr, 2017 Type 2 diabetes mellitus with diabetic polyneuropathy E11.42 [facility] [address] [place] [address] Apr, [facility] [id number] [place] [address] Apr, Primary osteoarthritis of both knees M17.0 and Chronic pain syndrome G89.4 [facility] [id number] [place] [address] Apr, Mood disorder F39 [facility] [id number] [place] [address] Mar, Mood disorder F39 and Posttraumatic stress disorder F43.10 [facility] [id number] [place] [address] Mar, Primary osteoarthritis of both knees M17.0 and Chronic pain syndrome G89.4 [facility] [id number] [place] [address] Feb, Primary osteoarthritis of both knees M17.0 and Chronic pain syndrome G89.4 [facility] [id number] [place] [address] Feb, Mood disorder F39 [facility] [address] [place] [address] Jan, Type 2 diabetes mellitus with diabetic polyneuropathy E11.42 ; Primary osteoarthritis of both knees M17.0 ; Mood disorder F39 ; Obesity, morbid, BMI 40.0-49.9 E66.01 ; Chronic prescription opiate use Z79.891 ; Acute suppurative otitis media of both ears without spontaneous rupture of tympanic membranes, recurrence not specified H66.003 and BMI 45.0-49.9, adult Z68.42 [facility] [address] [place] [address] Jan, Primary osteoarthritis of both knees M17.0 and Chronic pain syndrome G89.4 [facility] [id number] [place] [address] Dec, Mood disorder F39 and Posttraumatic stress disorder F43.10 [facility] [address] [address] Dec, Primary osteoarthritis of both knees M17.0 and Chronic pain syndrome G89.4 [facility] [address] [address] 18 Nov, 2016 Chronic pain syndrome G89.4 [facility] [id number] [place] [address] 15 Nov, 2016 Primary osteoarthritis of both knees M17.0 and Chronic pain syndrome G89.4 [facility] [id number] [place] [address] 13 Nov, 2016 Type 2 diabetes mellitus with diabetic polyneuropathy E11.42 and Chronic pain syndrome G89.4 [facility] [id number] [place] [address] Nov, Posttraumatic stress disorder F43.10 and Mood disorder F39 [facility] [id number] [place] [address] Oct, Chronic pain syndrome G89.4 [facility] [address] [place] [address] Oct, Type 2 diabetes mellitus with diabetic polyneuropathy E11.42 ; BMI 45.0-49.9, adult Z68.42 ; Primary osteoarthritis of both knees M17.0 and Skin lesion L98.9 [facility] [address] [address] Oct, Chronic pain syndrome G89.4 [facility] [id number] [place] [address] Sep, Chronic pain syndrome G89.4 [facility] [address] [address] Sep, [facility] [address] [place] [address] Sep, Chronic pain syndrome G89.4 [facility] [address] [address] Aug, Chronic pain syndrome G89.4 [facility] [address] [place] [address] Aug, [facility] [id number] [place] [address] Aug, Macrocytosis D75.89 and Pure hypercholesterolemia E78.0 [facility] [id number] [place] [address] Aug, Pure hypercholesterolemia E78.0 [facility] [id number] [place] [address] Aug, Macrocytosis D75.89 [facility] [id number] [place] [address] Aug, Pure hypercholesterolemia E78.0 ; Type 2 diabetes mellitus with diabetic polyneuropathy E11.42 ; MITCHELL treated with BiPAP G47.33 and Chronic pain syndrome G89.4 [facility] [id number] [place] [address] Aug, [facility] [address] [place] [address] Aug, Hemorrhoids, unspecified hemorrhoid type K64.9 [facility] [address] [place] [address] Aug, Chronic pain syndrome G89.4 ; Type 2 diabetes mellitus with diabetic polyneuropathy E11.42 ; Hemorrhoids, unspecified hemorrhoid type K64.9 ; Tobacco abuse Z72.0 and Primary osteoarthritis of both knees M17.0 [facility] [address] [place] [address] July, Chronic pain syndrome G89.4 [facility] [address] [place] [address] July, [facility] [address] [place] [address] Jun, Chronic pain syndrome G89.4 [facility] [address] [place] [address] Jun, Chronic pain syndrome G89.4 [facility] [id number] [place] [address] Jun, Severe major depression with psychotic features F32.3 and Posttraumatic stress disorder F43.10 [facility] [id number] [place] [address] Jun, Chronic pain syndrome G89.4 [facility] [id number] [place] [address] Jun, [facility] [id number] [place] [address] May, Chronic pain syndrome G89.4 [facility] [id number] [place] [address] May, Tobacco abuse Z72.0 [facility] [id number] [place] [address] May, [facility] [id number] [place] [address] Apr, Chronic pain syndrome G89.4 [facility] [id number] [place] [address] Apr, [facility] [address] [place] [address] Apr, Right foot pain M79.671 [facility] [address] [place] [address] Mar, Type 2 diabetes mellitus with diabetic polyneuropathy E11.42 ; MITCHELL treated with BiPAP G47.33 ; Pure hypercholesterolemia E78.0 ; Chronic pain syndrome G89.4 ; Tobacco abuse Z72.0 and Obesity, morbid, BMI 40.0-49.9 E66.01 [facility] [address] [address] Mar, [facility] [address] [address] Mar, [facility] [address] [address] Mar, [facility] [id number] [place] [address] Mar, [facility] [id number] [place] [address] Mar, [facility] [id number] [place] [address] Mar, Severe major depression with psychotic features F32.3 and Posttraumatic stress disorder F43.10 [facility] [address], [place] [address] Mar, [facility] [address] [address] Feb, [facility] [address] [address] Feb, [facility] [address], [place] [address] Jan, [facility] [address] [address] Jan, [facility] [address], [place] [address] Dec, Posttraumatic stress disorder F43.10 and Severe major depression with psychotic features F32.3 [facility] [address], [place] [address] Dec, Type 2 diabetes mellitus with diabetic polyneuropathy E11.42 ; Chronic pain syndrome G89.4 and Acute right-sided low back pain with right-sided sciatica M54.41 [facility] [address], [place] [address] Dec, [facility] [address] [place] [address] Dec, [facility] [address] [place] [address] Nov, [facility] [id number] [place] [address] Nov, [facility] [address] [place] [address] Nov, [facility] [id number] [place] [address] Oct, [facility] [id number] [place] [address] Oct, [facility] [id number] [place] [address] Sep, Dental examination Z01.20 [facility] [id number] [place] [address] Sep, [facility] [address] [place] [address] Sep, Type 2 diabetes mellitus with diabetic polyneuropathy E11.42 ; Chronic pain syndrome G89.4 ; Chronic prescription opiate use Z79.891 ; Injury of right index finger, sequela S69.91XS and Anejaculation N50.8 [facility] [address] [address] Aug, [facility] [id number] [place] [address] Aug, [facility] [address] [address] Aug, Cellulitis of finger of right hand L03.011 [facility] [address], [place] [address] July, [facility] [address] [place] [address] July, [facility] [id number] [place] [address] Jun, Onychomycosis B35.1 [facility] [id number] [place] [address] Jun, Severe major depression with psychotic features F32.3 and Posttraumatic stress disorder F43.10 [facility] [id number] [place] [address] Jun, [facility] [id number] [place] [address] Jun, [facility] [id number] [place] [address] Jun, [facility] [address] [place] [address] May, Type 2 diabetes mellitus with diabetic polyneuropathy E11.42 [facility] [address] [place] [address] May, Type 2 diabetes mellitus with diabetic polyneuropathy E11.42 and Urinary hesitancy R39.11 [facility] [address] [place] [address] May, Type 2 diabetes mellitus with diabetic polyneuropathy E11.42 ; Left hip pain M25.552 and Benign prostatic hyperplasia with lower urinary tract symptoms, unspecified morphology N40.1 [facility] [address] [place] [address] May, [facility] [address] [place] [address] Apr, Severe major depression with psychotic features F32.3 and Posttraumatic stress disorder F43.10 [facility] [address] [place] [address] 08 Apr, 2015 [facility] [id number] [place] [address] Mar, [facility] [id number] [place] [address] Mar, Dysuria R30.0 and Urinary hesitancy R39.11 [facility] [id number] [place] [address] Mar, Onychomycosis B35.1 [facility] [id number] [place] [address] Mar, [facility] [id number] [place] [address] Feb, [facility] [id number] [place] [address] Jan, [facility] [id number] [place] [address] Jan, Posttraumatic stress disorder F43.10 and Severe major depression with psychotic features F32.3 [facility] [id number] [place] [address] Jan, [facility] [id number] [place] [address] Jan, Chronic pain syndrome G89.4 ; Type 2 diabetes mellitus with diabetic polyneuropathy E11.42 ; Decreased pedal pulses R09.89 and Paresthesia of both hands R20.2 [facility] [id number] [place] [phone] Dec, Posttraumatic stress disorder F43.10 and Severe major depression with psychotic features F32.3 [facility] [id number] [place] [phone] Dec, [facility] [id number] [place] [phone] Dec, [facility] [id number] [phone] Dec, Onychomycosis B35.1 [facility] [id number] [place], [place] [address] Dec, [facility] [id number] [place] [address] Dec, [facility] [id number] [place] [address] Nov, [facility] [id number] [place] [address] Oct, Depression, major, recurrent, moderate 296.32 and Posttraumatic stress disorder 309.81 [facility] [id number] [place] [address] Oct, [facility] [id number] [place] [address] Oct, [facility] [id number] [place] [address] Oct, [facility] [id number] [place] [address] Sep, Posttraumatic stress disorder 309.81 and Depression, major, recurrent, moderate 296.32 [facility] [id number] [place] [address] Sep, [facility] [id number] [place] [address] Sep, Chronic airway obstruction, not elsewhere classified 496 [facility] [id number] [place] [address] Sep, Onychomycosis 110.1 and DM neuro manif type II 250.60 [facility] [id number] [place] [id number] 07 Chao, 2015 Chronic pain 338.29 ; Chronic airway obstruction, not elsewhere classified 496 ; Osteoarthritis of knees, bilateral 715.96 and On potassium wasting diuretic therapy V58.69 [facility] [address] [address] Sep, Insect bites 919.4 ; Sinusitis 473.9 and GERD (gastroesophageal reflux disease) 530.81 [facility] [address] [address] Aug, Depression, major, recurrent, moderate 296.32 and Posttraumatic stress disorder 309.81 [facility] [address] [address] Aug, [facility] [address] [address] Aug, [facility] [address] [address] Aug, [facility] [address] [address] July, Major depressive disorder, recurrent episode, moderate 296.32 and Posttraumatic stress disorder 309.81 [facility] [id number] [place] [address] July, [facility] [id number] [place] [address] July, [facility] [id number] [place] [address] July, [facility] [id number] [place] [address] July, [facility] [address] [address] Jun, [facility] [id number] [place] [address] Jun, [facility] [id number] [place] [address] May, [facility] [place] [facility] [address] [id number] [place] [address] May, [facility] [place] [facility] [address] [id number] [place] [address] May, [facility] [place] [facility] [address] [id number] [place] [address] May, [facility] [place] [facility] [address] [id number] [place] [address] May, 2014 [facility] [place] [facility] [address] [id number] [place] [address] May, [facility] [place] [facility] [address] [id number] [place] [address] May, [facility] [place] [facility] [address] [id number] [place] [address] May, [facility] [place] [facility] [address] [id number] [place] [address] May, [facility] [place] [facility] [address] [id number] [place] [address] Apr, 2014 [facility] [place] [facility] [address] [id number] [place] [address] Apr, 2014 [facility] [place] [facility] [address] [id number] [place] [address] Apr, 2014 [facility] [place] [facility] [address] [id number] [place] [address] Apr, 2014 [facility] [place] [facility] [address] [id number] [place] [address] Apr, 2014 [facility] [place] [facility] [address] [id number] [place] [address] Apr, 2014 [facility] [place] [facility] [address] [id number] [place] [address] Apr, 2014 [facility] [place] [facility] [address] [id number] [place] [address] 04 Apr, 2014 [facility] [address] [id number] [place] [address] Apr, [facility] [place] [facility] [address] [id number] [place] [address] Mar, [facility] [place] [facility] [address] [id number] [place] [address] Mar, [facility] [place] [facility] [address] [id number] [place] [address] Mar, [facility] [place] [facility] [address] [id number] [place] [address] Mar, [facility] [place] [facility] [address] [id number] [place] [address] Mar, [facility] [place] [facility] [address] [id number] [place] [address] Mar, [facility] [address] [id number] [place] [address] Mar, [facility] [place] [facility] [address] [id number] [place] [address] Mar, [facility] [place] [facility] [address] [id number] [place] [address] Mar, [facility] [place] [facility] [address] [id number] [place] [address] Mar, [facility] [place] [facility] [address] [id number] [place] [address] 14 Mar, 2014 [facility] [place] [facility] [address] [id number] [place] [address] Mar, [facility] [place] [facility] [address] [id number] [place] [address] Mar, [facility] [place] [facility] [address] [id number] [place] [address] Mar, [facility] [place] [facility] [address] [id number] [place] [address] 14 Mar, 2014 [facility] [place] [facility] [address] [id number] [place] [address] 14 Mar, 2014 [facility] [place] [facility] [address] [id number] [place] [address] 09 Mar, 2014 [facility] [place] [facility] [address] [id number] [place] [address] 09 Mar, 2014 [facility] [place] [facility] [address] [id number] [place] [address] 16 Feb, 2014 [facility] [place] [facility] [address] [id number] [place] [address] 16 Feb, 2014 [facility] [place] [facility] [address] [id number] [place] [address] 15 Feb, 2014 [facility] [place] [facility] [address] [id number] [place] [address] 15 Feb, 2014 [facility] [place] [facility] [address] [id number] [place] [address] 15 Feb, 2014 [facility] [place] [facility] [address] [id number] [place] [address] 15 Feb, 2014 [facility] [place] [facility] [address] [id number] [place] [address] Jan, [facility] [place] [facility] [address] [id number] [address] Jan, [facility] [place] [facility] [address] [id number] [place] [address] Jan, [facility] [place] [facility] [address] [id number] [place] [address] 17 Jan, 2014 [facility] [place] [facility] [address] [id number] [place] [address] Jan, [facility] [place] [facility] [address] [id number] [place] [address] Jan, [facility] [place] [facility] [address] [id number] [place] [address] Jan, [facility] [place] [facility] [address] [id number] [place] [address] Jan, [facility] [place] [facility] [address] [id number] [place] [address] Jan, [facility] [place] [facility] [address] [id number] [place] [address] Jan, [facility] [place] [facility] [address] [id number] [place] [address] Dec, [facility] [place] [facility] [address] [id number] [place] [address] Dec, [facility] [place] [facility] [address] [id number] [place] [address] Dec, [facility] [place] [facility] [address] [id number] [place] [address] Dec, [facility] [place] [facility] [address] [id number] [place] [address] 16 Nov, 2013 [facility] [place] [facility] [address] [id number] [place] [address] 16 Nov, 2013 [facility] [place] [facility] [address] [id number] [place] [address] Nov, 2013 [facility] [place] [facility] [address] [id number] [place] [address] 03 Nov, 2013 [facility] [place] [facility] [address] [id number] [place] [address] Nov, 2013 [facility] [place] [facility] [address] [id number] [place] [address] Nov, 2013 [facility] [place] [facility] [address] [id number] [place] [address] Oct, [facility] [place] [facility] [address] [id number] [place] [address] Oct, [facility] [place] [facility] [address] [id number] [place] [address] Oct, [facility] [place] [facility] [address] [id number] [place] [address] Oct, [facility] [place] [facility] [address] [id number] [place] [address] Sep, [facility] [place] [facility] [address] [id number] [place] [address] Sep, [facility] [place] [facility] [address] [id number] [place] [address] Sep, [facility] [place] [facility] [address] [id number] [place] [address] Sep, [facility] [place] [facility] [address] [id number] [place] [address] Sep, [facility] [place] [facility] [address] [id number] [place] [address] Sep, [facility] [place] [facility] [address] [id number] [place] [address] July, [facility] [place] [facility] [address] [id number] [place] [address] July, [facility] [place] [facility] [address] [id number] [place] [address] July, [facility] [place] [facility] [address] [id number] [place] [address] July, [facility] [place] [facility] [address] [id number] [place] [address] Jun, [facility] [place] [facility] [address] [id number] [place] [address] Jun, [facility] [place] [facility] [address] [id number] [place] [address] Jun, [facility] [place] [facility] [address] [id number] [place] [address] Jun, [facility] [place] [facility] [address] [id number] [place] [address] Jun, [facility] [place] [facility] [address] [facility] [id number] [place] [address] Jun, [facility] [place] [facility] [address] [id number] [place] [address] May, [facility] [place] [facility] [address] [id number] [place] [address] May, [facility] [place] [facility] [address] [facility] [id number] [place] [address] Apr, [facility] [place] [facility] [address] [facility] [id number] [place] [address] Apr, [facility] [place] [facility] [address] [id number], [place] [address] Apr, [facility] [place] [facility] [address] [id number] [place] [address] Apr, [facility] [place] [facility] [address] [facility] [id number] [place] [address] Apr, [facility] [place] [facility] [address] [facility] [id number], [place] [address] Apr, [facility] [place] [facility] [address] [facility] [id number], [place] [address] Apr, [facility] [place] [facility] [address] [facility] [id number], [place] [address] Mar, [facility] [place] [facility] [address] [facility] [id number], [place] [address] Mar, [facility] [place] [facility] [address] [facility] [id number], [place] [address] Mar, [facility] [place] [facility] [address] [id number] [place] [address] Mar, [facility] [place] [facility] [address] [id number] [place] [address] Mar, [facility] [place] [facility] [address] [id number] [place] [address] Mar, [facility] [place] [facility] [address] [id number] [place] [address] Mar, [facility] [place] [facility] [address] [id number] [place] [address] Mar, [facility] [place] [facility] [address] [id number] [place] [address] Feb, [facility] [place] [facility] [address] [id number] [place] [address] Feb, [facility] [place] [facility] [address] [id number] [place] [address] Feb, [facility] [place] [facility] [address] [id number] [place] [address] Feb, [facility] [place] [facility] [address] [id number] [place] [address] Feb, [facility] [place] [facility] [address] [id number] [place] [address] Feb, [facility] [place] [facility] [address] [id number] [place] [address] Feb, [facility] [place] [facility] [address] [id number] [place] [address] Jan, [facility] [place] [facility] [address] [id number] [place] [address] Jan, [facility] [place] [facility] [address] [id number] [place] [address] Jan, [facility] [place] [facility] [address] [id number] [place] [address] Jan, [facility] [place] [facility] [address] [id number], [place] [address] Jan, [facility] [place] [facility] [address] [id number], [place] [address] Jan, [facility] [place] [facility] [address] [id number][place] [address] Jan, [facility] [place] [facility] [address] [id number][place] [address] Jan, [facility] [place] [facility] [address] [id number], [place] [address] Dec, [facility] [place] [facility] [address] [id number], [place] [address] Dec, [facility] [place] [facility] [address] [id number], [place] [address] Dec, [facility] [place] [facility] [address] [id number], [place] [address] Dec, [facility] [place] [facility] [address] [id number], [place] [address] Dec, [facility] [place] [facility] [address] [id number], [place] [address] Dec, [facility] [place] [facility] [address] [id number], [place] [address] Dec, [facility] [place] [facility] [address] [id number], [place] [address] Dec, [facility] [place] [facility] [address] [id number], [place] [address] Dec, [facility] [place] [facility] [address] [id number], [place] [address] Dec, [facility] [place] [facility] [address] [id number][place] [address] Nov, [facility] [place] [facility] [address] [id number][place] [id number] 27 Nov, 2012 [facility] [place] [facility] [address] [id number] [place] [address] 24 Nov, 2012 [facility] [place] [facility] [address] [id number] [place] [address] 20 Nov, 2012 [facility] [place] [facility] [address] [id number] [place] [address] 19 Nov, 2012 [facility] [place] [facility] [address] [id number] [place] [address] 13 Nov, 2012 [facility] [place] [facility] [address] [id number] [place] [address] 10 Nov, 2012 [facility] [place] [facility] [address] [id number] [place] [address] 06 Nov, 2012 [facility] [place] [facility] [address] [id number] [place] [address] Oct, [facility] [place] [facility] [address] [id number] [place] [address] Oct, [facility] [place] [facility] [address] [id number] [place] [address] Oct, [facility] [place] [facility] [address] [id number] [place] [address] Sep, [facility] [place] [facility] [address] [id number] [place] [address] Sep, [facility] [place] [facility] [address] [id number] [place] [address] Sep, [facility] [place] [facility] [address] [id number] [place] [address] Sep, [facility] [place] [facility] [address] [id number] [place] [address] Sep, [facility] [place] [facility] [address] [id number] [place] [address] Aug, [facility] [place] [facility] [address] [id number] [place] [address] Aug, [facility] [address] [id number] [place] [address] Aug, [facility] [address] [id number] [place] [address] Aug, [facility] [address] [id number] [place] [address] Aug, [facility] [address] [id number] [place] [address] Aug, [facility] [address] [id number] [place] [address] July, [facility] [address] [id number] [place] [address] July, [facility] [address] [id number] [place] [address] July, [facility] [address] [id number] [place] [address] July, [facility] [address] [id number] [place] [address] July, [facility] [address] [id number] [place] [address] July, [facility] [address] [id number] [place] [address] Jun, [facility] [address] [id number] [place] [address] Jun, [facility] [address] [id number] [place] [address] Jun, [facility] [address] [id number] [place] [address] Jun, [facility] [address] [id number] [place] [address] May, [facility] [address] [id number] [place] [address] 15 May, 2012 [facility] [place] [facility] [address] [id number] [place] [address] 06 May, 2012 [facility] [address] [id number] [place] [address] 19 Apr, 2012 [facility] [place] [facility] [address] [id number] [place] [address] Mar, [facility] [address] [id number] [place] [address] 18 Mar, 2012 [facility] [address] [id number] [place] [address] 17 Mar, 2012 [facility] [address] [id number] [place] [address] 16 Mar, 2012 [facility] [address] [id number] [place] [address] 15 Mar, 2012 [facility] [address] [id number] [place] [address] Feb, [facility] [address] [id number] [place] [address] Feb, [facility] [place] [facility] [address] [id number] [place] [address] Feb, [facility] [place] [facility] [address] [id number], [place] [address] Feb, [facility] [place] [facility] [address] [id number] [place] [address] Jan, [facility] [place] [facility] [address] [id number] [place] [address] Jan, [facility] [place] [facility] [address] [id number] [place] [address] Jan, [facility] [place] [facility] [address] [id number] [place] [address] Jan, [facility] [address] [id number] [place] [address] Dec, [facility] [address] [id number] [place] [address] Dec, [facility] [address] [id number] [place] [address] Nov, [facility] [place] [facility] [address] [id number] [place] [address] Oct, [facility] [address] [id number] [place] [address] Oct, [facility] [address] [id number] [place] [address] Oct, [facility] [address] [id number] [place] [address] Oct, [facility] [address] [id number] [place] [address] Oct, [facility] [address] [id number] [place] [address] Sep, [facility] [address] [id number] [place] [address] Sep, [facility] [address] [id number] [place] [address] Aug, [address] [id number] Aug, [facility] [address] [id number] [place] [address] Aug, [facility] [address] [id number] [place] [address] July, [facility] [address] [id number] [place] [address] July, [facility] [address] [id number] [place] [address] 23 Jun, 2011 [facility] [address] [id number] [place] [address] 23 Jun, 2011 [facility] [place] [facility] [address] [id number] [place] [address] 16 Jun, 2011 [facility] [address] [id number] [place] [address] 13 Jun, 2011 [facility] [place] [facility] [address] [id number] [place] [address] 15 Apr, 2011 [facility] [address] [id number] [place] [address] 15 Apr, 2011 [facility] [address] [id number] [place] [address] 10 Apr, 2011 [facility] [address] [id number] [place] [address] Mar, [facility] [address] [id number] [place] [address] Mar, [facility] [place] [facility] [address] [id number] [place] [address] Mar, [facility] [address] [id number] [place] [address] Mar, [facility] [address] [id number] [place] [address] Mar, [facility] [address] [id number] [place] [address] Jan, [facility] [place] [facility] [address] [id number] [place] [address] Jan, [facility] [place] [facility] [address] [id number] [place] [address] Jan, [facility] [place] [facility] [address] [id number] [place] [address] Mar, [facility] [address] [id number] [place] [address] 11 Mar, 2010 [facility] [place] [facility] [address] [id number] [place] [address] Feb, [facility] [place] [facility] [address] [id number] [place] [address] 16 Feb, 2010 [facility] [place] [facility] [address] [id number] [place] [address] Feb, [facility] [place] [facility] [address] [id number] [place] [address] Jan, [facility] [place] [facility] [address] [id number] [place] [address] Jan, [facility] [place] [facility] [address] [id number] [place] [address] Dec, [facility] [place] [facility] [address] [id number] [place] [address] Dec, [facility] [place] [facility] [address] [id number] [place] [address] May, [facility] [place] [facility] [address] [id number], [place] [address] 10 Apr, 2009 [facility] [place] [facility] [address] [id number] [place] [address] Feb, [facility] [place] [facility] [address] [id number], [place] [address] Feb, [facility] [place] [facility] [address] [id number] [place] [address] Jan, [facility] [place] [facility] [address] [id number], [place] [address] Jan, [facility] [place] [facility] [address] [id number] [place] [address] Jan, [facility] [place] [facility] [address] [facility] [id number] [place] [address] 11 Jan, 2009 [facility] [address] [facility] [id number] [place] [address] 11 Jan, 2009 IMMUNIZATIONS No Known Immunizations SOCIAL HISTORY Never Assessed REASON FOR VISIT EMR-[facility] PLAN OF CARE VITAL SIGNS MEDICATIONS Unknown [...] Hospitalization History ED then admitted to [facility]-cardiac stepdown-chest pain 02/2010 Hospitalization History Possible DVT-sono negative 06/2010 Hospitalization History cellulitis to bilat legs
--- OUTSIDE RECORDS SUMMARY | 2018-10-04 06:21 | XMS REPORT ---
Author Author Migration, Doctor Organization [facility] Address Unknown Phone Unavailable Care Team Providers Care University Lecturer Name Role Phone Migration, Doctor Unavailable Unavailable PROBLEMS Type Condition ICD9-CM Code [id number] Code Onset Dates Condition Status SNOMED Code Problem Nocturnal hypoxia G47.34 Active 184995905 Problem Primary osteoarthritis of both knees M17.0 Active 170389182 Problem Type 2 diabetes mellitus with diabetic polyneuropathy E11.42 Active 779730917 Problem Pure hypercholesterolemia E78.0 Active 954059668 Problem Chronic pain syndrome G89.4 Active 417035382 Problem Chronic systolic (congestive) heart failure I50.22 Active 750438483 Problem Tobacco abuse Z72.0 Active 091289440 Problem Posttraumatic stress disorder F43.10 Active 13127445 Problem Non-ischemic cardiomyopathy I42.9 Active 97436604 Problem Gastroesophageal reflux disease, esophagitis presence not specified K21.9 Active 015152400 Problem History of weight loss surgery Z98.84 Active 580018416 Problem Chronic obstructive pulmonary disease, unspecified COPD type J44.9 Active 22763846 Problem Chronic prescription opiate use Z79.891 Active 398890279 Problem MITCHELL treated with BiPAP G47.33 Active 48889907 Problem Severe major depression with psychotic features F32.3 Active 04841608 Problem Acute right-sided low back pain with right-sided sciatica M54.41 Active 05905803 Problem Obesity, morbid, BMI 40.0-49.9 E66.01 Active 515873638 Problem Macrocytosis D75.89 Active 478923421 Problem BMI 45.0-49.9, adult Z68.42 Active 014582212 Problem Pure hypercholesterolemia E78.00 Active 544657631 Problem Essential hypertension I10 Active 62780773 Problem Obstructive sleep apnea syndrome G47.33 Active 98870041 Problem History of DVT (deep vein thrombosis) Z86.718 Active 238434117 Problem Major depressive disorder, recurrent episode, unspecified severity F33.9 Active 37928610 Problem Mild episode of recurrent major depressive disorder F33.0 Active 888855042 Problem Mood disorder F39 Active 89552875 Problem Primary insomnia F51.01 Active 9744199 Problem Chronic systolic congestive heart failure I50.22 Active 111784134 ALLERGIES No Information ENCOUNTERS Encounter Location Date Diagnosis [facility] [id number] [place] [address] 04 Aug, 2018 [facility] [id number] [place] [address] July, [facility] [id number] [place] [address] Jun, Mass of shoulder region R22.30 [facility] [id number] [place] [address] 05 Jun, 2018 Chronic pain syndrome G89.4 [facility] [id number] [place] [address] 18 May, 2018 Type 2 diabetes mellitus with diabetic polyneuropathy E11.42 ; Mass of shoulder region R22.30 and Morbid obesity E66.01 [facility] [id number] [place] [address] 07 May, 2018 Chronic pain syndrome G89.4 [facility] [id number] [place] [address] 04 May, 2018 Mood disorder F39 ; Posttraumatic stress disorder F43.10 and Morbid obesity E66.01 [facility] [id number] [place] [address] 14 Apr, 2018 Major depressive disorder, recurrent episode, unspecified severity F33.9 [facility] [id number] [place] [address] 13 Apr, 2018 Major depressive disorder, recurrent episode, unspecified severity F33.9 [facility] [id number] [place] [address] 07 Apr, 2018 Chronic pain syndrome G89.4 [facility] [id number] [place] [address] 14 Mar, 2018 Pain in right foot M79.671 ; Type 2 diabetes mellitus with diabetic polyneuropathy E11.42 ; Chronic pain syndrome G89.4 and BMI 50.0-59.9, adult Z68.43 [facility] [id number] [place] [address] Mar, [facility] [address] [address] Mar, [facility] [address] [address] Mar, Chronic pain syndrome G89.4 [facility] [address] [address] Feb, Chronic pain syndrome G89.4 [facility] [address] [address] 30 Jan, 2018 Obstructive sleep apnea syndrome G47.33 [facility] [address] [address] 26 Jan, 2018 Type 2 diabetes mellitus with diabetic polyneuropathy E11.42 ; Chronic pain syndrome G89.4 ; Gastroesophageal reflux disease, esophagitis presence not specified K21.9 ; Essential hypertension I10 ; Pure hypercholesterolemia E78.00 ; Chronic prescription opiate use Z79.891 ; Obstructive sleep apnea syndrome G47.33 and BMI 50.0-59.9, adult Z68.43 [facility] [id number] [place] [address] 20 Jan, 2018 History of weight loss surgery Z98.84 [facility] [id number] [place] [address] 16 Jan, 2018 [facility] [address] [address] Jan, Chronic pain syndrome G89.4 [facility] [id number] [place] [address] Jan, [facility] [address] [place] [address] Jan, [facility] [id number] [place] [address] Dec, [facility] [address] [address] Dec, Chronic pain syndrome G89.4 [facility] [address] [address] Dec, Injury of left knee, subsequent encounter S89.92XD and Acute pain of left knee M25.562 [facility] [address] [address] Dec, [facility] [address] [address] Dec, Injury of left knee, initial encounter S89.92XA and BMI 45.0-49.9, adult Z68.42 [facility] [address] [address] Nov, Chest discomfort R07.89 ; Shortness of breath R06.02 ; Chronic systolic congestive heart failure I50.22 and Type 2 diabetes mellitus with diabetic polyneuropathy E11.42 [facility] [id number] [place] [address] Nov, Chronic pain syndrome G89.4 [facility] [address] [address] Oct, BMI 45.0-49.9, adult Z68.42 ; Type 2 diabetes mellitus with diabetic polyneuropathy E11.42 ; Chronic pain syndrome G89.4 ; Gastroesophageal reflux disease, esophagitis presence not specified K21.9 ; Decreased pedal pulses R09.89 and Precordial pain R07.2 [facility] [id number] [place] [address] Oct, [facility] [address] [address] Oct, Mood disorder F39 [facility] [address] [address] Oct, Mood disorder F39 ; Posttraumatic stress disorder F43.10 and BMI 45.0-49.9, adult Z68.42 [facility] [address], [place] [address] Sep, Primary osteoarthritis of both knees M17.0 and Chronic pain syndrome G89.4 [facility] [address], [place] [address] Sep, Mood disorder F39 and Posttraumatic stress disorder F43.10 [facility] [id number] [place] [address] Aug, Primary osteoarthritis of both knees M17.0 and Chronic pain syndrome G89.4 [facility] [id number] [place] [address] July, Primary osteoarthritis of both knees M17.0 and Chronic pain syndrome G89.4 [facility] [address], [place] [address] July, Type 2 diabetes mellitus with diabetic polyneuropathy E11.42 ; Essential hypertension I10 ; Pure hypercholesterolemia E78.0 ; Chronic prescription opiate use Z79.891 ; Tobacco abuse Z72.0 ; Primary osteoarthritis of both knees M17.0 ; Primary insomnia F51.01 and BMI 45.0-49.9, adult Z68.42 [facility] [address], [place] [address] July, Medicare annual wellness visit, initial Z00.00 [...] specified K21.9 and Encounter for immunization Z23 [facility] [id number] [place] [address] July, Primary osteoarthritis of both knees M17.0 and Chronic pain syndrome G89.4 [facility] [id number] [place] [address] Jun, Infection of right ear H66.91 ; Wheezing on auscultation R06.2 and BMI 45.0-49.9, adult Z68.42 [facility] [id number] [place] [address] Jun, [facility] [address] [address] Jun, Primary osteoarthritis of both knees M17.0 and Chronic pain syndrome G89.4 [facility] [id number] [place] [address] May, [facility] [id number] [place] [address] May, BMI 45.0-49.9, adult Z68.42 ; Mood disorder F39 and Posttraumatic stress disorder F43.10 [facility] [id number] [place] [address] May, [facility] [id number] [place] [address] May, Primary osteoarthritis of both knees M17.0 and Chronic pain syndrome G89.4 [facility] [id number] [place] [address] May, Mood disorder F39 [facility] [address] [address] Apr, Type 2 diabetes mellitus with diabetic polyneuropathy E11.42 [facility] [id number] [place] [address] Apr, [facility] [address], [place] [address] Apr, Primary osteoarthritis of both knees M17.0 and Chronic pain syndrome G89.4 [facility] [address], [place] [address] Apr, Mood disorder F39 [facility] [address], [place] [address] Mar, Mood disorder F39 and Posttraumatic stress disorder F43.10 [facility] [address] [place] [address] Mar, Primary osteoarthritis of both knees M17.0 and Chronic pain syndrome G89.4 [facility] [id number] [place] [address] Feb, Primary osteoarthritis of both knees M17.0 and Chronic pain syndrome G89.4 [facility] [address] [place] [address] Feb, Mood disorder F39 [facility] [place] [id number] [place] [address] Jan, Type 2 diabetes mellitus with diabetic polyneuropathy E11.42 ; Primary osteoarthritis of both knees M17.0 ; Mood disorder F39 ; Obesity, morbid, BMI 40.0-49.9 E66.01 ; Chronic prescription opiate use Z79.891 ; Acute suppurative otitis media of both ears without spontaneous rupture of tympanic membranes, recurrence not specified H66.003 and BMI 45.0-49.9, adult Z68.42 [facility] [address], [place] [address] Jan, Primary osteoarthritis of both knees M17.0 and Chronic pain syndrome G89.4 [facility] [address], [place] [address] Dec, Mood disorder F39 and Posttraumatic stress disorder F43.10 [facility] [id number] [place] [address] 13 Dec, 2016 Primary osteoarthritis of both knees M17.0 and Chronic pain syndrome G89.4 [facility] [id number] [place] [address] 18 Nov, 2016 Chronic pain syndrome G89.4 [facility] [address], [place] [address] 15 Nov, 2016 Primary osteoarthritis of both knees M17.0 and Chronic pain syndrome G89.4 [facility] [id number] [place] [address] 13 Nov, 2016 Type 2 diabetes mellitus with diabetic polyneuropathy E11.42 and Chronic pain syndrome G89.4 [facility] [id number] [place] [address] 12 Nov, 2016 Posttraumatic stress disorder F43.10 and Mood disorder F39 [facility] [id number] [place] [address] Oct, Chronic pain syndrome G89.4 [facility] [address] [place] [address] Oct, Type 2 diabetes mellitus with diabetic polyneuropathy E11.42 ; BMI 45.0-49.9, adult Z68.42 ; Primary osteoarthritis of both knees M17.0 and Skin lesion L98.9 [facility] [address], [place] [address] Oct, Chronic pain syndrome G89.4 [facility] [address], [place] [address] Sep, Chronic pain syndrome G89.4 [facility] [address], [place] [address] Sep, [facility] [id number], [place] [address] Sep, Chronic pain syndrome G89.4 [facility] [id number] [place] [address] Aug, Chronic pain syndrome G89.4 [facility] [address], [place] [address] Aug, [facility] [id number] [place] [address] Aug, Macrocytosis D75.89 and Pure hypercholesterolemia E78.0 [facility] [id number] [place] [address] Aug, Pure hypercholesterolemia E78.0 [facility] [id number] [place] [address] Aug, Macrocytosis D75.89 [facility] [id number] [place] [address] Aug, Pure hypercholesterolemia E78.0 ; Type 2 diabetes mellitus with diabetic polyneuropathy E11.42 ; MITCHELL treated with BiPAP G47.33 and Chronic pain syndrome G89.4 [facility] [id number] [place] [address] Aug, [facility] [id number] [place] [address] Aug, Hemorrhoids, unspecified hemorrhoid type K64.9 [facility] [address] [place] [address] Aug, Chronic pain syndrome G89.4 ; Type 2 diabetes mellitus with diabetic polyneuropathy E11.42 ; Hemorrhoids, unspecified hemorrhoid type K64.9 ; Tobacco abuse Z72.0 and Primary osteoarthritis of both knees M17.0 [facility] [address] [place] [address] July, Chronic pain syndrome G89.4 [facility] [id number] [place] [address] July, [facility] [id number] [place] [address] Jun, Chronic pain syndrome G89.4 [facility] [address] [place] [address] Jun, Chronic pain syndrome G89.4 [facility] [id number] [place] [address] Jun, Severe major depression with psychotic features F32.3 and Posttraumatic stress disorder F43.10 [facility] [id number] [place] [address] Jun, Chronic pain syndrome G89.4 [facility] [id number] [place] [address] Jun, [facility] [id number] [place] [address] May, Chronic pain syndrome G89.4 [facility] [id number] [place] [address] May, Tobacco abuse Z72.0 [facility] [id number] [place] [address] May, [facility] [id number] [place] [address] Apr, Chronic pain syndrome G89.4 [facility] [id number] [place] [address] Apr, [facility] [id number] [place] [address] Apr, Right foot pain M79.671 [facility] [id number] [place] [address] Mar, Type 2 diabetes mellitus with diabetic polyneuropathy E11.42 ; MITCHELL treated with BiPAP G47.33 ; Pure hypercholesterolemia E78.0 ; Chronic pain syndrome G89.4 ; Tobacco abuse Z72.0 and Obesity, morbid, BMI 40.0-49.9 E66.01 [facility] [id number] [place] [address] Mar, [facility] [address], [place] [address] Mar, [facility] [address], [place] [address] Mar, [facility] [address], [place] [address] Mar, [facility] [id number] [place] [address] Mar, [facility] [id number] [place] [address] Mar, Severe major depression with psychotic features F32.3 and Posttraumatic stress disorder F43.10 [facility] [address], [place] [address] Mar, [facility] [id number] [place] [address] Feb, [facility] [address], [place] [address] Feb, [facility] [id number] [place] [address] Jan, [facility] [address], [place] [address] Jan, [facility] [address], [place] [address] Dec, Posttraumatic stress disorder F43.10 and Severe major depression with psychotic features F32.3 [facility] [address], [place] [address] Dec, Type 2 diabetes mellitus with diabetic polyneuropathy E11.42 ; Chronic pain syndrome G89.4 and Acute right-sided low back pain with right-sided sciatica M54.41 [facility] [address], [place] [address] Dec, [facility] [address], [place] [address] Dec, [facility] [address], [place] [address] Nov, [facility] [address], [place] [address] Nov, [facility] [id number] [place] [address] Nov, [facility] [id number] [place] [address] Oct, [facility] [id number] [place] [address] Oct, [facility] [id number] [place] [address] Sep, Dental examination Z01.20 [facility] [id number] [place] [address] Sep, [facility] [id number] [place] [address] Sep, Type 2 diabetes mellitus with diabetic polyneuropathy E11.42 ; Chronic pain syndrome G89.4 ; Chronic prescription opiate use Z79.891 ; Injury of right index finger, sequela S69.91XS and Anejaculation N50.8 [facility] [address], [place] [address] Aug, [facility] [address], [place] [address] Aug, [facility] [id number] [place] [address] Aug, Cellulitis of finger of right hand L03.011 [facility] [address], [place] [address] July, [facility] [id number], [place] [address] July, [facility] [address], [place] [address] Jun, Onychomycosis B35.1 [facility] [address], [place] [address] Jun, Severe major depression with psychotic features F32.3 and Posttraumatic stress disorder F43.10 [facility] [address], [place] [address] Jun, [facility] [id number] [place] [address] Jun, [facility] [address], [place] [address] Jun, [facility] [id number] [place] [address] May, Type 2 diabetes mellitus with diabetic polyneuropathy E11.42 [facility] [address], [place] [address] May, Type 2 diabetes mellitus with diabetic polyneuropathy E11.42 and Urinary hesitancy R39.11 [facility] [address], [place] [address] May, Type 2 diabetes mellitus with diabetic polyneuropathy E11.42 ; Left hip pain M25.552 and Benign prostatic hyperplasia with lower urinary tract symptoms, unspecified morphology N40.1 [facility] [address], [place] [address] May, [facility] [id number] [address] Apr, Severe major depression with psychotic features F32.3 and Posttraumatic stress disorder F43.10 [facility] [address], [place] [address] Apr, [facility] [id number] [place] [address] Mar, [facility] [id number] [place] [address] Mar, Dysuria R30.0 and Urinary hesitancy R39.11 [facility] [id number] [place] [phone] Mar, Onychomycosis B35.1 [facility] [id number] [place] [phone] Mar, [facility] [id number] [place] [phone] Feb, [facility] [id number] [place] [phone] Jan, [facility] [id number] [place] [phone] Jan, Posttraumatic stress disorder F43.10 and Severe major depression with psychotic features F32.3 [facility] [id number] [place] [phone] Jan, [facility] [id number] [place] [phone] Jan, Chronic pain syndrome G89.4 ; Type 2 diabetes mellitus with diabetic polyneuropathy E11.42 ; Decreased pedal pulses R09.89 and Paresthesia of both hands R20.2 [facility] [id number] [place] [phone] Dec, Posttraumatic stress disorder F43.10 and Severe major depression with psychotic features F32.3 [facility] [id number] [place] [phone] Dec, [facility] [id number] [place] [phone] Dec, [facility] [id number] [place] [phone] Dec, Onychomycosis B35.1 [facility] [id number] [place] [phone] Dec, [facility] [id number] [place] [phone] Dec, [facility] [id number] [place] [phone] Nov, [facility] [id number] [place] [phone] Oct, Depression, major, recurrent, moderate 296.32 and Posttraumatic stress disorder 309.81 [facility] [id number] [place] [phone] Oct, [facility] [id number] [place] [phone] Oct, [facility] [id number] [place] [phone] Oct, [facility] [id number] [place] [address] Sep, Posttraumatic stress disorder 309.81 and Depression, major, recurrent, moderate 296.32 [place] [id number] [place] [address] Sep, [place] [address] [place] [id number] [place] [address] Sep, Chronic airway obstruction, not elsewhere classified 496 [place] [id number] [place] [address] Sep, Onychomycosis 110.1 and DM neuro manif type II 250.60 [place] [address] [place] [id number] [place] [address] Sep, Chronic pain 338.29 ; Chronic airway obstruction, not elsewhere classified 496 ; Osteoarthritis of knees, bilateral 715.96 and On potassium wasting diuretic therapy V58.69 [place] [address] [place] [id number] [place] [address] Sep, Insect bites 919.4 ; Sinusitis 473.9 and GERD (gastroesophageal reflux disease) 530.81 [facility] [id number] [place] [address] Aug, Depression, major, recurrent, moderate 296.32 and Posttraumatic stress disorder 309.81 [facility] [id number] [place] [address] Aug, [facility] [id number] [place] [address] Aug, [facility] [id number] [place] [address] Aug, [facility] [id number] [place] [address] July, Major depressive disorder, recurrent episode, moderate 296.32 and Posttraumatic stress disorder 309.81 [facility] [address] [address] July, [facility] [id number] [place] [address] July, [facility] [address] [id number] [address] July, [facility] [id number] [place] [address] July, [facility] [id number] [place] [address] Jun, [facility] [address] [id number] [place] [address] Jun, [facility] [id number] [place] [address] May, [facility] [address] [address] May, [facility] [place] [facility] [address] [id number] [place] [address] 18 May, 2014 [facility] [place] [facility] [address] [id number] [place] [address] May, 2014 [facility] [place] [facility] [address] [id number] [place] [address] May, 2014 [facility] [place] [facility] [address] [id number] [place] [address] May, 2014 [facility] [place] [facility] [address] [id number] [place] [address] May, 2014 [facility] [place] [facility] [address] [id number] [place] [address] May, [facility] [place] [facility] [address] [facility] [id number] [place] [address] May, [facility] [place] [facility] [address] [id number] [place] [address] Apr, 2014 [facility] [place] [facility] [address] [id number] [place] [address] Apr, 2014 [facility] [place] [facility] [address] [facility] [id number] [place] [address] Apr, 2014 [facility] [place] [facility] [address] [facility] [id number] [place] [address] Apr, 2014 [facility] [place] [facility] [address] [id number] [place] [address] Apr, 2014 [facility] [place] [facility] [address] [id number] [place] [address] Apr, 2014 [facility] [place] [facility] [address] [id number] [place] [address] Apr, [facility] [place] [facility] [address] [facility] [id number] [place] [address] Apr, 2014 [facility] [place] [facility] [address] [facility] [id number] [place] [address] 04 Apr, 2014 [facility] [place] [facility] [address] [id number] [place] [address] 30 Mar, 2014 [facility] [place] [facility] [address] [id number] [place] [address] 30 Mar, 2014 [facility] [place] [facility] [address] [id number] [place] [address] Mar, [facility] [place] [facility] [address] [id number] [place] [address] Mar, [facility] [place] [facility] [address] [id number] [place] [address] Mar, [facility] [place] [facility] [address] [id number] [place] [address] Mar, [facility] [place] [facility] [address] [id number] [place] [address] Mar, [facility] [place] [facility] [address] [id number] [place] [address] Mar, [facility] [place] [facility] [address] [id number] [place] [address] Mar, [facility] [place] [facility] [address] [id number] [place] [address] Mar, [facility] [place] [facility] [address] [id number] [place] [address] 14 Mar, 2014 [facility] [place] [facility] [address] [id number] [address] 14 Mar, 2014 [facility] [place] [facility] [address] [id number] [place] [address] Mar, [facility] [place] [facility] [address] [id number] [place] [address] 14 Mar, 2014 [facility] [place] [facility] [address] [id number], [place] [address] 14 Mar, 2014 [facility] [place] [facility] [address] [id number] [place] [address] 14 Mar, 2014 [facility] [place] [facility] [address] [id number] [place] [address] Mar, [facility] [place] [facility] [address] [id number] [place] [address] Mar, [facility] [place] [facility] [address] [id number] [place] [address] 16 Feb, 2014 [facility] [place] [facility] [address] [id number] [place] [address] 16 Feb, 2014 [facility] [place] [facility] [address] [id number] [place] [address] 15 Feb, 2014 [facility] [place] [facility] [address] [id number] [place] [address] 15 Feb, 2014 [facility] [place] [facility] [address] [id number] [place] [address] 15 Feb, 2014 [facility] [place] [facility] [address] [id number] [place] [address] Feb, [facility] [place] [facility] [address] [id number] [place] [address] Jan, [facility] [place] [facility] [address] [id number] [place] [address] Jan, [facility] [place] [facility] [address] [id number] [place] [address] Jan, [facility] [place] [facility] [address] [id number] [place] [address] Jan, [facility] [place] [facility] [address] [id number] [place] [address] Jan, [facility] [place] [facility] [address] [id number] [place] [address] Jan, [facility] [place] [facility] [address] [id number] [place] [address] Jan, [facility] [place] [facility] [address] [id number] [place] [address] Jan, [facility] [place] [facility] [address] [id number] [place] [address] Jan, [facility] [place] [facility] [address] [id number] [place] [address] Jan, [facility] [place] [facility] [address] [id number] [place] [address] Dec, [facility] [place] [facility] [address] [id number] [place] [address] Dec, [facility] [place] [facility] [address] [id number] [place] [address] Dec, [facility] [place] [facility] [address] [id number] [place] [address] Dec, [facility] [place] [facility] [address] [id number] [place] [address] 16 Nov, 2013 [facility] [place] [facility] [address] [id number] [place] [address] 16 Nov, 2013 [facility] [place] [facility] [address] [id number] [place] [address] Nov, [facility] [place] [facility] [address] [id number], [place] [address] Nov, [facility] [place] [facility] [address] [id number], [place] [address] Nov, 2013 [facility] [place] [facility] [address] [id number] [place] [address] Nov, [facility] [place] [facility] [address] [id number] [place] [address] Oct, [facility] [place] [facility] [address] [id number] [place] [address] Oct, [facility] [place] [facility] [address] [id number] [place] [address] Oct, [facility] [address] [id number] [place] [address] Oct, [facility] [place] [facility] [address] [id number] [place] [address] Sep, [facility] [place] [facility] [address] [id number] [place] [address] Sep, [facility] [place] [facility] [address] [id number] [place] [address] Sep, [facility] [place] [facility] [address] [id number] [place] [address] Sep, [facility] [address] [id number] [place] [address] Sep, [facility] [address] [id number] [place] [address] Sep, [facility] [address] [id number] [place] [address] July, [facility] [place] [facility] [address] [id number] [place] [address] July, [facility] [address] [id number] [place] [address] July, [facility] [place] [facility] [address] [id number] [place] [address] July, [facility] [place] [facility] [address] [id number] [place] [address] Jun, [facility] [place] [facility] [address] [id number] [place] [address] Jun, [facility] [place] [facility] [address] [id number] [place] [address] Jun, [facility] [place] [facility] [address] [id number] [place] [address] Jun, [facility] [place] [facility] [address] [id number] [place] [address] Jun, [facility] [place] [facility] [address] [id number] [place] [address] Jun, [facility] [place] [facility] [address] [id number] [place] [address] May, [facility] [place] [facility] [address] [id number] [place] [address] May, [facility] [place] [facility] [address] [id number] [place] [address] Apr, [facility] [place] [facility] [address] [id number] [place] [address] Apr, [facility] [place] [facility] [address] [facility] [id number] [place] [address] Apr, [facility] [place] [facility] [address] [id number] [place] [address] Apr, [facility] [place] [facility] [address] [id number] [place] [address] Apr, [facility] [place] [facility] [address] [facility] [id number] [place] [address] Apr, [facility] [place] [facility] [address] [id number], [place] [address] Apr, [facility] [place] [facility] [address] [id number], [place] [address] Mar, [facility] [place] [facility] [address] [id number] [place] [address] Mar, [facility] [place] [facility] [address] [id number], [place] [address] Mar, [facility] [place] [facility] [address] [facility] [id number] [place] [address] Mar, [facility] [place] [facility] [address] [id number] [place] [address] Mar, [facility] [address] [id number] [place] [address] Mar, [facility] [place] [facility] [address] [id number] [place] [address] Mar, [facility] [address] [id number] [place] [address] Mar, [facility] [place] [facility] [address] [id number] [place] [address] Feb, [facility] [address] [id number] [place] [address] Feb, [facility] [place] [facility] [address] [id number] [place] [address] Feb, [facility] [address] [id number] [place] [address] Feb, [facility] [place] [facility] [address] [id number] [place] [address] Feb, [facility] [place] [facility] [address] [id number] [place] [address] Feb, [facility] [place] [facility] [address] [id number] [place] [address] Feb, [facility] [place] [facility] [address] [id number] [place] [address] Jan, [facility] [place] [facility] [address] [id number] [place] [address] Jan, [facility] [place] [facility] [address] [id number] [place] [address] Jan, [facility] [place] [facility] [address] [id number] [place] [address] Jan, [facility] [place] [facility] [address] [id number] [place] [address] Jan, [facility] [place] [facility] [address] [id number] [place] [address] Jan, [facility] [place] [facility] [address] [id number] [place] [id number] Jan, [facility] [place] [facility] [address] [id number] [place] [address] Jan, [facility] [place] [facility] [address] [id number] [place] [address] Dec, [facility] [place] [facility] [address] [id number] [place] [address] Dec, [facility] [place] [facility] [address] [id number] [place] [address] Dec, [facility] [place] [facility] [address] [id number] [place] [address] Dec, [facility] [place] [facility] [address] [id number] [place] [address] Dec, [facility] [place] [facility] [address] [id number] [place] [address] Dec, [facility] [place] [facility] [address] [id number] [place] [address] Dec, [facility] [place] [facility] [address] [id number] [place] [address] Dec, [facility] [place] [facility] [address] [id number], [place] [address] Dec, [facility] [place] [facility] [address] [id number] [place] [address] Dec, [facility] [place] [facility] [address] [id number] [place] [id number] Nov, [facility] [place] [facility] [address] [id number] [place] [id number] Nov, [facility] [place] [facility] [address] [id number] [place] [address] 24 Nov, 2012 [facility] [place] [facility] [address] [id number] [place] [address] 20 Nov, 2012 [facility] [place] [facility] [address] [id number] [place] [address] Nov, [facility] [place] [facility] [address] [id number] [place] [address] Nov, [facility] [place] [facility] [address] [id number] [place] [address] 10 Nov, 2012 [facility] [place] [facility] [address] [id number] [place] [address] Nov, [facility] [place] [facility] [address] [id number] [place] [address] Oct, [facility] [place] [facility] [address] [id number] [place] [address] Oct, [facility] [place] [facility] [address] [id number] [place] [address] Oct, [facility] [place] [facility] [address] [id number] [place] [address] Sep, [facility] [place] [facility] [address] [id number] [place] [address] Sep, [facility] [place] [facility] [address] [id number] [place] [address] Sep, [facility] [place] [facility] [address] [id number] [place] [address] Sep, [facility] [place] [facility] [address] [id number] [place] [address] Sep, [facility] [place] [facility] [address] [id number] [place] [address] Aug, [facility] [place] [facility] [address] [id number] [place] [address] Aug, [facility] [place] [facility] [address] [id number] [place] [address] Aug, [facility] [address] [id number] [place] [address] Aug, [facility] [address] [id number] [place] [address] Aug, [facility] [address] [id number] [place] [address] Aug, [facility] [address] [id number] [place] [address] July, [facility] [address] [id number] [place] [address] July, [facility] [address] [id number] [place] [address] July, [facility] [address] [id number] [place] [address] July, [facility] [address] [id number] [place] [address] July, [facility] [address] [id number] [place] [address] July, [facility] [address] [id number] [place] [address] Jun, [facility] [address] [id number] [place] [address] Jun, [facility] [address] [id number] [place] [address] Jun, [facility] [address] [id number] [place] [address] Jun, [facility] [address] [id number] [place] [address] May, [facility] [address] [id number] [place] [address] May, [facility] [address] [id number] [place] [address] May, [facility] [address] [id number] [place] [address] Apr, [facility] [place] [facility] [address] [id number] [place] [address] Mar, [facility] [place] [facility] [address] [id number] [place] [address] 18 Mar, 2012 [facility] [place] [facility] [address] [id number] [place] [address] 17 Mar, 2012 [facility] [place] [facility] [address] [id number] [place] [address] 16 Mar, 2012 [facility] [address] [id number] [place] [address] 15 Mar, 2012 [facility] [address] [id number] [place] [address] Feb, [facility] [address] [id number] [place] [address] Feb, [facility] [address] [id number] [place] [address] Feb, [facility] [address] [id number] [place] [address] Feb, [facility] [address] [id number] [place] [address] Jan, [facility] [place] [facility] [address] [id number] [place] [address] Jan, [facility] [place] [facility] [address] [id number] [place] [address] Jan, [facility] [place] [facility] [address] [id number] [place] [address] Jan, [facility] [place] [facility] [address] [id number] [place] [address] Dec, [facility] [address] [id number] [place] [address] Dec, [facility] [address] [id number] [place] [address] Nov, [facility] [address] [id number] [place] [address] Oct, [facility] [address] [id number] [place] [address] Oct, [facility] [address] [id number] [place] [address] Oct, [facility] [address] [id number] [place] [address] Oct, [facility] [address] [id number] [place] [address] Oct, [facility] [address] [id number], [place] [address] Sep, [facility] [address] [id number], [place] [address] Sep, [facility] [address] [facility] [id number], [place] [address] Aug, [facility] [address] [place] [id number] Aug, [facility] [address] [id number], [place] [address] Aug, [facility] [address] [id number] [place] [address] July, [facility] [address] [id number] [place] [address] July, [facility] [address] [id number], [place] [address] Jun, [facility] [address] [id number], [place] [address] 23 Jun, 2011 [facility] [address] [id number] [place] [address] 16 Jun, 2011 [facility] [place] [facility] [address] [id number] [place] [address] 13 Jun, 2011 [facility] [place] [facility] [address] [id number] [place] [address] 15 Apr, 2011 [facility] [place] [facility] [address] [id number] [place] [address] 15 Apr, 2011 [facility] [address] [id number] [place] [address] 10 Apr, 2011 [facility] [place] [facility] [address] [id number] [place] [address] Mar, [facility] [address] [id number] [place] [address] Mar, [facility] [place] [facility] [address] [id number] [place] [address] Mar, [facility] [address] [id number] [place] [address] Mar, [facility] [address] [id number] [place] [address] Mar, [facility] [address] [id number] [place] [address] Jan, [facility] [place] [facility] [address] [id number] [place] [address] Jan, [facility] [place] [facility] [address] [id number] [place] [address] Jan, [facility] [place] [facility] [address] [id number] [place] [address] 17 Mar, 2010 [facility] [place] [facility] [address] [id number] [place] [address] Mar, [facility] [place] [facility] [address] [id number] [place] [address] 20 Feb, 2010 [facility] [place] [facility] [address] [id number] [place] [address] 16 Feb, 2010 [facility] [place] [facility] [address] [id number] [place] [address] 16 Feb, 2010 [facility] [place] [facility] [address] [id number] [place] [address] 17 Jan, 2010 [facility] [place] [facility] [address] [id number] [place] [address] 17 Jan, 2010 [facility] [place] [facility] [address] [id number] [place] [address] Dec, [facility] [place] [facility] [address] [id number] [place] [address] 19 Dec, 2009 [facility] [place] [facility] [address] [id number] [place] [address] 10 May, 2009 [facility] [place] [facility] [address] [id number] [place] [address] 10 Apr, 2009 [facility] [place] [facility] [address] [id number] [place] [address] 07 Feb, 2009 [facility] [place] [facility] [address] [id number] [place] [address] 03 Feb, 2009 [facility] [place] [facility] [address] [id number] [place] [address] 30 Jan, 2009 [facility] [place] [facility] [address] [id number] [place] [address] Jan, [facility] [place] [facility] [address] [id number] [place] [address] Jan, [facility] [place] [facility] [address] [id number] [place] [address] 11 Jan, 2009 [facility] [place] [facility] [address] [id number] [place] [address] Jan, IMMUNIZATIONS No Known Immunizations SOCIAL HISTORY Never Assessed REASON FOR VISIT EMR-[facility] PLAN OF CARE VITAL SIGNS MEDICATIONS Unknown [...] Hospitalization History ED then admitted to [facility]-cardiac stepdown-chest pain 02/2010 Hospitalization History Possible DVT-sono negative 06/2010 Hospitalization History cellulitis to bilat legs
[2018-10-04] MEDS ORDERED: proPOfol 200 MG/20 ML (DIPRIVAN) VIAL IV ONE (06:22)
[2018-10-04] MEDS ORDERED: LIDOCAINE PF 2% 5 ML (XYLOCAINE) VIAL ONE (06:22)
[2018-10-04] MEDS ORDERED: fentaNYL INJECTION 100 MCG/2 ML AMP ONE (06:22)
[2018-10-04] MEDS ORDERED: ROCURONIUM 10 MG/ML 5 ML SYRINGE IV ONE ×2 (06:22→08:50)
[2018-10-04] MEDS ORDERED: ROPIVACAINE 5MG/ML 30ML VIAL ONE (06:22)
[2018-10-04] MEDS ORDERED: ONDANSETRON 4 MG/2 ML (SDV) Z0FRAN ONE (06:22)
--- OUTSIDE RECORDS SUMMARY | 2018-10-04 06:22 | XMS REPORT ---
Author Author Migration, Doctor Organization [facility] Address Unknown Phone Unavailable Care Team Providers Care Data Management Manager Name Role Phone Migration, Doctor Unavailable Unavailable PROBLEMS Type Condition ICD9-CM Code EGM06-HZ Code Onset Dates Condition Status SNOMED Code Problem Nocturnal hypoxia G47.34 Active 948119001 Problem Primary osteoarthritis of both knees M17.0 Active 280767968 Problem Type 2 diabetes mellitus with diabetic polyneuropathy E11.42 Active 979710100 Problem Pure hypercholesterolemia E78.0 Active 462950812 Problem Chronic pain syndrome G89.4 Active 041733973 Problem Chronic systolic (congestive) heart failure I50.22 Active 895183214 Problem Tobacco abuse Z72.0 Active 386837518 Problem Posttraumatic stress disorder F43.10 Active 71799223 Problem Non-ischemic cardiomyopathy I42.9 Active 14336427 Problem Gastroesophageal reflux disease, esophagitis presence not specified K21.9 Active 173604108 Problem History of weight loss surgery Z98.84 Active 475389763 Problem Chronic obstructive pulmonary disease, unspecified COPD type J44.9 Active 77294242 Problem Chronic prescription opiate use Z79.891 Active 957200833 Problem MITCHELL treated with BiPAP G47.33 Active 45320038 Problem Severe major depression with psychotic features F32.3 Active 91392497 Problem Acute right-sided low back pain with right-sided sciatica M54.41 Active 82071171 Problem Obesity, morbid, BMI 40.0-49.9 E66.01 Active 568449209 Problem Macrocytosis D75.89 Active 620503316 Problem BMI 45.0-49.9, adult Z68.42 Active 593605323 Problem Pure hypercholesterolemia E78.00 Active 883251464 Problem Essential hypertension I10 Active 77025867 Problem Obstructive sleep apnea syndrome G47.33 Active 88259221 Problem History of DVT (deep vein thrombosis) Z86.718 Active 130291158 Problem Major depressive disorder, recurrent episode, unspecified severity F33.9 Active 49272159 Problem Mild episode of recurrent major depressive disorder F33.0 Active 320075727 Problem Mood disorder F39 Active 27166524 Problem Primary insomnia F51.01 Active 9352984 Problem Chronic systolic congestive heart failure I50.22 Active 463016746 ALLERGIES No Information ENCOUNTERS Encounter Location Date Diagnosis [facility] [id number] [place] [address] 04 Aug, 2018 [facility] [id number] [place] [address] July, [facility] [id number] [place] [address] Jun, Mass of shoulder region R22.30 [facility] [id number] [place] [address] 05 Jun, 2018 Chronic pain syndrome G89.4 [facility] [id number] [place] [address] 18 May, 2018 Type 2 diabetes mellitus with diabetic polyneuropathy E11.42 ; Mass of shoulder region R22.30 and Morbid obesity E66.01 [facility] [id number] [place] [address] 07 May, 2018 Chronic pain syndrome G89.4 [facility] [id number] [place] [address] 04 May, 2018 Mood disorder F39 ; Posttraumatic stress disorder F43.10 and Morbid obesity E66.01 [facility] [id number] [place] [address] 14 Apr, 2018 Major depressive disorder, recurrent episode, unspecified severity F33.9 [facility] [id number] [place] [address] 13 Apr, 2018 Major depressive disorder, recurrent episode, unspecified severity F33.9 [facility] [id number] [place] [address] 07 Apr, 2018 Chronic pain syndrome G89.4 [facility] [id number] [place] [address] 14 Mar, 2018 Pain in right foot M79.671 ; Type 2 diabetes mellitus with diabetic polyneuropathy E11.42 ; Chronic pain syndrome G89.4 and BMI 50.0-59.9, adult Z68.43 [facility] [id number] [place] [address] Mar, [facility] [address] [address] Mar, [facility] [address] [address] Mar, Chronic pain syndrome G89.4 [facility] [address] [address] Feb, Chronic pain syndrome G89.4 [facility] [address] [address] 30 Jan, 2018 Obstructive sleep apnea syndrome G47.33 [facility] [address] [address] 26 Jan, 2018 Type 2 diabetes mellitus with diabetic polyneuropathy E11.42 ; Chronic pain syndrome G89.4 ; Gastroesophageal reflux disease, esophagitis presence not specified K21.9 ; Essential hypertension I10 ; Pure hypercholesterolemia E78.00 ; Chronic prescription opiate use Z79.891 ; Obstructive sleep apnea syndrome G47.33 and BMI 50.0-59.9, adult Z68.43 [facility] [id number] [place] [address] 20 Jan, 2018 History of weight loss surgery Z98.84 [facility] [id number] [place] [address] 16 Jan, 2018 [facility] [address] [address] Jan, Chronic pain syndrome G89.4 [facility] [id number] [place] [address] Jan, [facility] [address] [place] [address] Jan, [facility] [id number] [place] [address] Dec, [facility] [address] [address] Dec, Chronic pain syndrome G89.4 [facility] [address] [address] Dec, Injury of left knee, subsequent encounter S89.92XD and Acute pain of left knee M25.562 [facility] [address] [address] Dec, [facility] [address] [address] Dec, Injury of left knee, initial encounter S89.92XA and BMI 45.0-49.9, adult Z68.42 [facility] [address] [address] Nov, Chest discomfort R07.89 ; Shortness of breath R06.02 ; Chronic systolic congestive heart failure I50.22 and Type 2 diabetes mellitus with diabetic polyneuropathy E11.42 [facility] [id number] [place] [address] Nov, Chronic pain syndrome G89.4 [facility] [address] [address] Oct, BMI 45.0-49.9, adult Z68.42 ; Type 2 diabetes mellitus with diabetic polyneuropathy E11.42 ; Chronic pain syndrome G89.4 ; Gastroesophageal reflux disease, esophagitis presence not specified K21.9 ; Decreased pedal pulses R09.89 and Precordial pain R07.2 [facility] [id number] [place] [address] Oct, [facility] [address] [address] Oct, Mood disorder F39 [facility] [facility] [address], [place] [address] Oct, Mood disorder F39 ; Posttraumatic stress disorder F43.10 and BMI 45.0-49.9, adult Z68.42 [facility] [facility] [address], [place] [address] Sep, Primary osteoarthritis of both knees M17.0 and Chronic pain syndrome G89.4 [facility] [address], [place] [address] Sep, Mood disorder F39 and Posttraumatic stress disorder F43.10 [facility] [id number] [place] [address] Aug, Primary osteoarthritis of both knees M17.0 and Chronic pain syndrome G89.4 [facility] [id number] [place] [address] July, Primary osteoarthritis of both knees M17.0 and Chronic pain syndrome G89.4 [facility] [address], [place] [address] July, Type 2 diabetes mellitus with diabetic polyneuropathy E11.42 ; Essential hypertension I10 ; Pure hypercholesterolemia E78.0 ; Chronic prescription opiate use Z79.891 ; Tobacco abuse Z72.0 ; Primary osteoarthritis of both knees M17.0 ; Primary insomnia F51.01 and BMI 45.0-49.9, adult Z68.42 [facility] [address], [place] [address] July, Medicare annual wellness visit, initial Z00.00 [...] specified K21.9 and Encounter for immunization Z23 [facility] [id number] [place] [address] July, Primary osteoarthritis of both knees M17.0 and Chronic pain syndrome G89.4 [facility] [id number] [place] [address] Jun, Infection of right ear H66.91 ; Wheezing on auscultation R06.2 and BMI 45.0-49.9, adult Z68.42 [facility] [id number] [place] [address] Jun, [place] [address] [address] Jun, Primary osteoarthritis of both knees M17.0 and Chronic pain syndrome G89.4 [facility] [id number] [place] [address] May, [facility] [id number] [place] [address] May, BMI 45.0-49.9, adult Z68.42 ; Mood disorder F39 and Posttraumatic stress disorder F43.10 [facility] [id number] [place] [address] May, [facility] [id number] [place] [address] May, Primary osteoarthritis of both knees M17.0 and Chronic pain syndrome G89.4 [facility] [id number] [place] [address] May, Mood disorder F39 [place] [address] [address] Apr, Type 2 diabetes mellitus with diabetic polyneuropathy E11.42 [facility] [id number] [place] [address] Apr, [facility] [address], [place] [address] Apr, Primary osteoarthritis of both knees M17.0 and Chronic pain syndrome G89.4 [facility] [address], [place] [address] Apr, Mood disorder F39 [facility] [address], [place] [address] Mar, Mood disorder F39 and Posttraumatic stress disorder F43.10 [place] [address] [place] [address] Mar, Primary osteoarthritis of both knees M17.0 and Chronic pain syndrome G89.4 [facility] [id number] [place] [address] Feb, Primary osteoarthritis of both knees M17.0 and Chronic pain syndrome G89.4 [place] [id number] [place] [address] Feb, Mood disorder F39 [place] [id number] [place] [address] Jan, Type 2 diabetes mellitus with diabetic polyneuropathy E11.42 ; Primary osteoarthritis of both knees M17.0 ; Mood disorder F39 ; Obesity, morbid, BMI 40.0-49.9 E66.01 ; Chronic prescription opiate use Z79.891 ; Acute suppurative otitis media of both ears without spontaneous rupture of tympanic membranes, recurrence not specified H66.003 and BMI 45.0-49.9, adult Z68.42 [facility] [address], [place] [address] Jan, Primary osteoarthritis of both knees M17.0 and Chronic pain syndrome G89.4 [facility] [address], [place] [address] Dec, Mood disorder F39 and Posttraumatic stress disorder F43.10 [facility] [id number] [place] [address] 13 Dec, 2016 Primary osteoarthritis of both knees M17.0 and Chronic pain syndrome G89.4 [facility] [id number] [place] [address] 18 Nov, 2016 Chronic pain syndrome G89.4 [facility] [address], [place] [address] 15 Nov, 2016 Primary osteoarthritis of both knees M17.0 and Chronic pain syndrome G89.4 [facility] [id number] [place] [address] 13 Nov, 2016 Type 2 diabetes mellitus with diabetic polyneuropathy E11.42 and Chronic pain syndrome G89.4 [facility] [id number] [place] [address] 12 Nov, 2016 Posttraumatic stress disorder F43.10 and Mood disorder F39 [facility] [id number] [place] [address] Oct, Chronic pain syndrome G89.4 [facility] [id number] [place] [address] Oct, Type 2 diabetes mellitus with diabetic polyneuropathy E11.42 ; BMI 45.0-49.9, adult Z68.42 ; Primary osteoarthritis of both knees M17.0 and Skin lesion L98.9 [facility] [address], [place] [address] Oct, Chronic pain syndrome G89.4 [facility] [address], [place] [address] Sep, Chronic pain syndrome G89.4 [facility] [address], [place] [address] Sep, [facility] [address] [address] Sep, Chronic pain syndrome G89.4 [facility] [id number] [place] [address] Aug, Chronic pain syndrome G89.4 [facility] [address], [place] [address] Aug, [facility] [id number] [place] [address] Aug, Macrocytosis D75.89 and Pure hypercholesterolemia E78.0 [facility] [id number] [place] [address] Aug, Pure hypercholesterolemia E78.0 [facility] [id number] [place] [address] Aug, Macrocytosis D75.89 [facility] [id number] [place] [address] Aug, Pure hypercholesterolemia E78.0 ; Type 2 diabetes mellitus with diabetic polyneuropathy E11.42 ; MITCHELL treated with BiPAP G47.33 and Chronic pain syndrome G89.4 [facility] [id number] [place] [address] Aug, [facility] [id number] [place] [address] Aug, Hemorrhoids, unspecified hemorrhoid type K64.9 [facility] [id number] [place] [address] Aug, Chronic pain syndrome G89.4 ; Type 2 diabetes mellitus with diabetic polyneuropathy E11.42 ; Hemorrhoids, unspecified hemorrhoid type K64.9 ; Tobacco abuse Z72.0 and Primary osteoarthritis of both knees M17.0 [facility] [id number] [place] [address] July, Chronic pain syndrome G89.4 [facility] [id number] [place] [address] July, [facility] [id number] [place] [address] Jun, Chronic pain syndrome G89.4 [facility] [id number] [place] [address] Jun, Chronic pain syndrome G89.4 [facility] [id number] [place] [address] Jun, Severe major depression with psychotic features F32.3 and Posttraumatic stress disorder F43.10 [facility] [id number] [place] [address] Jun, Chronic pain syndrome G89.4 [facility] [id number] [place] [address] Jun, [facility] [id number] [place] [address] May, Chronic pain syndrome G89.4 [facility] [id number] [place] [address] May, Tobacco abuse Z72.0 [facility] [id number] [place] [address] May, [facility] [id number] [place] [address] Apr, Chronic pain syndrome G89.4 [facility] [id number] [place] [address] Apr, [facility] [id number] [place] [address] Apr, Right foot pain M79.671 [facility] [id number] [place] [address] Mar, Type 2 diabetes mellitus with diabetic polyneuropathy E11.42 ; MITCHELL treated with BiPAP G47.33 ; Pure hypercholesterolemia E78.0 ; Chronic pain syndrome G89.4 ; Tobacco abuse Z72.0 and Obesity, morbid, BMI 40.0-49.9 E66.01 [facility] [id number] [place] [address] Mar, [facility] [address], [place] [address] Mar, [facility] [address], [place] [address] Mar, [facility] [address], [place] [address] Mar, [facility] [id number] [place] [address] Mar, [facility] [address] [place] [address] Mar, Severe major depression with psychotic features F32.3 and Posttraumatic stress disorder F43.10 [facility] [address], [place] [address] Mar, [facility] [id number] [place] [address] Feb, [facility] [address], [place] [address] Feb, [facility] [id number] [place] [address] Jan, [facility] [address], [place] [address] Jan, [facility] [address], [place] [address] Dec, Posttraumatic stress disorder F43.10 and Severe major depression with psychotic features F32.3 [facility] [address], [place] [address] Dec, Type 2 diabetes mellitus with diabetic polyneuropathy E11.42 ; Chronic pain syndrome G89.4 and Acute right-sided low back pain with right-sided sciatica M54.41 [facility] [address], [place] [address] Dec, [facility] [address], [place] [address] Dec, [facility] [id number], [place] [address] Nov, [facility] [id number], [place] [address] Nov, [facility] [id number] [place] [address] Nov, [facility] [id number] [place] [address] Oct, [facility] [id number] [place] [address] Oct, [facility] [id number] [place] [address] Sep, Dental examination Z01.20 [facility] [id number] [place] [address] Sep, [facility] [id number] [place] [address] Sep, Type 2 diabetes mellitus with diabetic polyneuropathy E11.42 ; Chronic pain syndrome G89.4 ; Chronic prescription opiate use Z79.891 ; Injury of right index finger, sequela S69.91XS and Anejaculation N50.8 [facility] [address], [place] [address] Aug, [facility] [id number], [place] [address] Aug, [facility] [id number] [place] [address] Aug, Cellulitis of finger of right hand L03.011 [facility] [address], [place] [address] July, [facility] [id number] [place] [address] July, [facility] [address], [place] [address] Jun, Onychomycosis B35.1 [facility] [address], [place] [address] Jun, Severe major depression with psychotic features F32.3 and Posttraumatic stress disorder F43.10 [facility] [address], [place] [address] Jun, [facility] [id number] [place] [address] Jun, [facility] [id number], [place] [address] Jun, [facility] [id number] [place] [address] May, Type 2 diabetes mellitus with diabetic polyneuropathy E11.42 [facility] [address], [place] [address] May, Type 2 diabetes mellitus with diabetic polyneuropathy E11.42 and Urinary hesitancy R39.11 [facility] [address], [place] [address] May, Type 2 diabetes mellitus with diabetic polyneuropathy E11.42 ; Left hip pain M25.552 and Benign prostatic hyperplasia with lower urinary tract symptoms, unspecified morphology N40.1 [facility] [address], [place] [address] May, [facility] [id number] [place] [address] Apr, Severe major depression with psychotic features F32.3 and Posttraumatic stress disorder F43.10 [facility] [address], [place] [address] Apr, [facility] [id number] [place] [address] Mar, [facility] [id number] [place] [address] Mar, Dysuria R30.0 and Urinary hesitancy R39.11 [facility] [id number] [place] [address] Mar, Onychomycosis B35.1 [facility] [id number] [place] [address] Mar, [facility] [id number] [place] [address] Feb, [facility] [id number] [place] [address] Jan, [facility] [id number] [place] [address] Jan, Posttraumatic stress disorder F43.10 and Severe major depression with psychotic features F32.3 [facility] [id number] [place] [address] Jan, [facility] [id number] [place] [address] Jan, Chronic pain syndrome G89.4 ; Type 2 diabetes mellitus with diabetic polyneuropathy E11.42 ; Decreased pedal pulses R09.89 and Paresthesia of both hands R20.2 [facility] [id number] [place] [phone] Dec, Posttraumatic stress disorder F43.10 and Severe major depression with psychotic features F32.3 [facility] [id number] [place] [phone] Dec, [facility] [id number] [place] [phone] Dec, [facility] [id number] [place] [phone] Dec, Onychomycosis B35.1 [facility] [id number] [place] [phone] Dec, [facility] [id number] [place] [phone] Dec, [facility] [id number] [place] [phone] Nov, [facility] [id number] [place] [phone] Oct, Depression, major, recurrent, moderate 296.32 and Posttraumatic stress disorder [id number] [place] [address] Oct, [place] [id number] [place] [address] Oct, [place] [id number] [place] [address] Oct, [place] [id number] [place] [address] Sep, Posttraumatic stress disorder 309.81 and Depression, major, recurrent, moderate 296.32 [place] [id number] [place] [address] Sep, [place] [id number] [place] [address] Sep, Chronic airway obstruction, not elsewhere classified [id number] [place] [address] Sep, Onychomycosis 110.1 and DM neuro manif type II 250.60 [place] [id number] [place] [address] Sep, Chronic pain 338.29 ; Chronic airway obstruction, not elsewhere classified 496 ; Osteoarthritis of knees, bilateral 715.96 and On potassium wasting diuretic therapy V58.69 [place] [id number] [place] [address] Sep, Insect bites 919.4 ; Sinusitis 473.9 and GERD (gastroesophageal reflux disease) 530.81 [facility] [id number] [place] [address] Aug, Depression, major, recurrent, moderate 296.32 and Posttraumatic stress disorder 309.81 [facility] [id number] [place] [address] Aug, [facility] [id number] [place] [address] Aug, [facility] [id number] [place] [address] Aug, [facility] [id number] [place] [address] July, Major depressive disorder, recurrent episode, moderate 296.32 and Posttraumatic stress disorder 309.81 [facility] [id number] [address] July, [facility] [id number] [place] [address] July, [facility] [id number] [address] July, [facility] [id number] [place] [address] July, [facility] [id number] [place] [address] Jun, [facility] [id number] [place] [address] Jun, [facility] [id number] [place] [address] May, [facility] [id number] [address] May, [facility] [place] [facility] [address] [id number] [place] [address] 18 May, 2014 [facility] [place] [facility] [address] [id number] [place] [address] May, 2014 [facility] [place] [facility] [address] [id number] [place] [address] May, 2014 [facility] [place] [facility] [address] [id number] [place] [address] May, 2014 [facility] [place] [facility] [address] [id number] [place] [address] May, 2014 [facility] [place] [facility] [address] [id number] [place] [address] May, [facility] [place] [facility] [address] [facility] [id number] [place] [address] May, [facility] [place] [facility] [address] [id number] [place] [address] Apr, 2014 [facility] [place] [facility] [address] [id number] [place] [address] Apr, 2014 [facility] [place] [facility] [address] [facility] [id number] [place] [address] Apr, 2014 [facility] [place] [facility] [address] [facility] [id number] [place] [address] Apr, 2014 [facility] [place] [facility] [address] [id number] [place] [address] Apr, 2014 [facility] [place] [facility] [address] [id number] [place] [address] Apr, 2014 [facility] [place] [facility] [address] [id number] [place] [address] Apr, [facility] [place] [facility] [address] [facility] [id number] [place] [address] Apr, 2014 [facility] [place] [facility] [address] [facility] [id number] [place] [address] 04 Apr, 2014 [facility] [place] [facility] [address] [id number] [place] [address] 30 Mar, 2014 [facility] [place] [facility] [address] [id number] [place] [address] 30 Mar, 2014 [facility] [place] [facility] [address] [id number] [place] [address] Mar, [facility] [place] [facility] [address] [id number] [place] [address] Mar, [facility] [place] [facility] [address] [id number] [place] [address] Mar, [facility] [place] [facility] [address] [id number] [place] [address] Mar, [facility] [place] [facility] [address] [id number] [place] [address] Mar, [facility] [place] [facility] [address] [id number] [place] [address] Mar, [facility] [place] [facility] [address] [id number] [place] [address] Mar, [facility] [place] [facility] [address] [id number] [place] [address] Mar, [facility] [place] [facility] [address] [id number] [place] [address] 14 Mar, 2014 [facility] [place] [facility] [address] [id number], [place] [address] 14 Mar, 2014 [facility] [place] [facility] [address] [id number] [place] [address] Mar, [facility] [place] [facility] [address] [id number] [place] [address] 14 Mar, 2014 [facility] [place] [facility] [address] [id number], [place] [address] 14 Mar, 2014 [facility] [place] [facility] [address] [id number] [place] [address] 14 Mar, 2014 [facility] [place] [facility] [address] [id number] [place] [address] Mar, [facility] [place] [facility] [address] [id number] [place] [address] Mar, [facility] [place] [facility] [address] [id number] [place] [address] 16 Feb, 2014 [facility] [place] [facility] [address] [id number] [place] [address] 16 Feb, 2014 [facility] [place] [facility] [address] [id number] [place] [address] 15 Feb, 2014 [facility] [place] [facility] [address] [id number] [place] [address] 15 Feb, 2014 [facility] [place] [facility] [address] [id number] [place] [address] 15 Feb, 2014 [facility] [place] [facility] [address] [id number] [place] [address] Feb, [facility] [place] [facility] [address] [id number] [place] [address] Jan, [facility] [place] [facility] [address] [id number] [place] [address] Jan, [facility] [place] [facility] [address] [id number] [place] [address] Jan, [facility] [place] [facility] [address] [id number] [place] [address] Jan, [facility] [place] [facility] [address] [id number] [place] [address] Jan, [facility] [place] [facility] [address] [id number] [place] [address] Jan, [facility] [place] [facility] [address] [id number] [place] [address] Jan, [facility] [place] [facility] [address] [id number] [place] [address] Jan, [facility] [place] [facility] [address] [id number] [place] [address] Jan, [facility] [place] [facility] [address] [id number] [place] [address] Jan, [facility] [place] [facility] [address] [id number] [place] [address] Dec, [facility] [place] [facility] [address] [id number] [place] [address] Dec, [facility] [place] [facility] [address] [id number] [place] [address] Dec, [facility] [place] [facility] [address] [id number] [place] [address] Dec, [facility] [place] [facility] [address] [id number] [place] [address] 16 Nov, 2013 [facility] [place] [facility] [address] [id number] [place] [address] 16 Nov, 2013 [facility] [place] [facility] [address] [id number] [place] [address] Nov, [facility] [place] [facility] [address] [id number], [place] [address] Nov, [facility] [place] [facility] [address] [id number], [place] [address] Nov, 2013 [facility] [place] [facility] [address] [id number] [place] [address] Nov, [facility] [place] [facility] [address] [id number] [place] [address] Oct, [facility] [place] [facility] [address] [id number] [place] [address] Oct, [facility] [place] [facility] [address] [id number] [place] [address] Oct, [facility] [address] [id number] [place] [address] Oct, [facility] [place] [facility] [address] [id number] [place] [address] Sep, [facility] [place] [facility] [address] [id number] [place] [address] Sep, [facility] [place] [facility] [address] [id number] [place] [address] Sep, [facility] [place] [facility] [address] [id number] [place] [address] Sep, [facility] [address] [id number] [place] [address] Sep, [facility] [address] [id number] [place] [address] Sep, [facility] [address] [id number] [place] [address] July, [facility] [place] [facility] [address] [id number] [place] [address] July, [facility] [address] [id number] [place] [address] July, [facility] [place] [facility] [address] [id number] [place] [address] July, [facility] [place] [facility] [address] [id number] [place] [address] Jun, [facility] [place] [facility] [address] [id number] [place] [address] Jun, [facility] [place] [facility] [address] [id number] [place] [address] Jun, [facility] [place] [facility] [address] [id number] [place] [address] Jun, [facility] [place] [facility] [address] [id number] [place] [address] Jun, [facility] [place] [facility] [address] [id number] [place] [address] Jun, [facility] [place] [facility] [address] [id number] [place] [address] May, [facility] [place] [facility] [address] [id number] [place] [address] May, [facility] [place] [facility] [address] [id number] [place] [address] Apr, [facility] [place] [facility] [address] [id number] [place] [address] Apr, [facility] [place] [facility] [address] [facility] [id number] [place] [address] Apr, [facility] [place] [facility] [address] [id number] [place] [address] Apr, [facility] [place] [facility] [address] [id number] [place] [address] Apr, [facility] [place] [facility] [address] [facility] [id number] [place] [address] Apr, [facility] [place] [facility] [address] [id number], [place] [address] Apr, [facility] [place] [facility] [address] [id number], [place] [address] Mar, [facility] [place] [facility] [address] [id number] [place] [address] Mar, [facility] [place] [facility] [address] [id number], [place] [address] Mar, [facility] [place] [facility] [address] [facility] [id number] [place] [address] Mar, [facility] [place] [facility] [address] [id number] [place] [address] Mar, [facility] [address] [id number] [place] [address] Mar, [facility] [place] [facility] [address] [id number] [place] [address] Mar, [facility] [address] [id number] [place] [address] Mar, [facility] [place] [facility] [address] [id number] [place] [address] Feb, [facility] [address] [id number] [place] [address] Feb, [facility] [place] [facility] [address] [id number] [place] [address] Feb, [facility] [address] [id number] [place] [address] Feb, [facility] [place] [facility] [address] [id number] [place] [address] Feb, [facility] [place] [facility] [address] [id number] [place] [address] Feb, [facility] [place] [facility] [address] [id number] [place] [address] Feb, [facility] [place] [facility] [address] [id number] [place] [address] Jan, [facility] [place] [facility] [address] [id number] [place] [address] Jan, [facility] [place] [facility] [address] [id number] [place] [address] Jan, [facility] [place] [facility] [address] [id number] [place] [address] Jan, [facility] [place] [facility] [address] [id number] [place] [address] Jan, [facility] [place] [facility] [address] [id number] [place] [address] Jan, [facility] [place] [facility] [address] [id number] [place] [id number] Jan, [facility] [place] [facility] [address] [id number] [place] [id number] Jan, [facility] [place] [facility] [address] [id number] [place] [address] Dec, [facility] [place] [facility] [address] [id number] [place] [address] Dec, [facility] [place] [facility] [address] [id number] [place] [address] Dec, [facility] [place] [facility] [address] [id number] [place] [address] Dec, [facility] [place] [facility] [address] [id number] [place] [address] Dec, [facility] [place] [facility] [address] [id number] [place] [address] Dec, [facility] [place] [facility] [address] [id number] [place] [address] Dec, [facility] [place] [facility] [address] [id number] [place] [address] Dec, [facility] [place] [facility] [address] [id number], [place] [address] Dec, [facility] [place] [facility] [address] [id number] [place] [address] Dec, [facility] [place] [facility] [address] [id number] [place] [id number] Nov, [facility] [place] [facility] [address] [id number] [place] [id number] Nov, [facility] [place] [facility] [address] [id number] [place] [address] 24 Nov, 2012 [facility] [place] [facility] [address] [id number] [place] [address] 20 Nov, 2012 [facility] [place] [facility] [address] [id number] [place] [address] Nov, [facility] [place] [facility] [address] [id number] [place] [address] Nov, [facility] [place] [facility] [address] [id number] [place] [address] 10 Nov, 2012 [facility] [place] [facility] [address] [id number] [place] [address] Nov, [facility] [place] [facility] [address] [id number] [place] [address] Oct, [facility] [place] [facility] [address] [id number] [place] [address] Oct, [facility] [place] [facility] [address] [id number] [place] [address] Oct, [facility] [place] [facility] [address] [id number] [place] [address] Sep, [facility] [place] [facility] [address] [id number] [place] [address] Sep, [facility] [place] [facility] [address] [id number] [place] [address] Sep, [facility] [place] [facility] [address] [id number] [place] [address] Sep, [facility] [place] [facility] [address] [id number] [place] [address] Sep, [facility] [place] [facility] [address] [id number] [place] [address] Aug, [facility] [place] [facility] [address] [id number] [place] [address] Aug, [facility] [place] [facility] [address] [id number] [place] [address] Aug, [facility] [address] [id number] [place] [address] Aug, [facility] [address] [id number] [place] [address] Aug, [facility] [address] [id number] [place] [address] Aug, [facility] [address] [id number] [place] [address] July, [facility] [address] [id number] [place] [address] July, [facility] [address] [id number] [place] [address] July, [facility] [address] [id number] [place] [address] July, [facility] [address] [id number] [place] [address] July, [facility] [address] [id number] [place] [address] July, [facility] [address] [id number] [place] [address] Jun, [facility] [address] [id number] [place] [address] Jun, [facility] [address] [id number] [place] [address] Jun, [facility] [address] [id number] [place] [address] Jun, [facility] [address] [id number] [place] [address] May, [facility] [address] [id number] [place] [address] May, [facility] [address] [id number] [place] [address] May, [facility] [address] [id number] [place] [address] Apr, [facility] [place] [facility] [address] [id number] [place] [address] Mar, [facility] [place] [facility] [address] [id number] [place] [address] 18 Mar, 2012 [facility] [place] [facility] [address] [id number] [place] [address] 17 Mar, 2012 [facility] [place] [facility] [address] [id number] [place] [address] 16 Mar, 2012 [facility] [address] [id number] [place] [address] 15 Mar, 2012 [facility] [address] [id number] [place] [address] Feb, [facility] [address] [id number] [place] [address] Feb, [facility] [address] [id number] [place] [address] Feb, [facility] [address] [id number] [place] [address] Feb, [facility] [address] [id number] [place] [address] Jan, [facility] [place] [facility] [address] [id number] [place] [address] Jan, [facility] [place] [facility] [address] [id number] [place] [address] Jan, [facility] [place] [facility] [address] [id number] [place] [address] Jan, [facility] [place] [facility] [address] [id number] [place] [address] Dec, [facility] [address] [id number] [place] [address] Dec, [facility] [address] [id number] [place] [address] Nov, [facility] [address] [id number] [place] [address] Oct, [facility] [address] [id number] [place] [address] Oct, [facility] [address] [id number] [place] [address] Oct, [facility] [address] [id number] [place] [address] Oct, [facility] [address] [id number] [place] [address] Oct, [facility] [address] [id number], [place] [address] Sep, [facility] [address] [id number], [place] [address] Sep, [facility] [address] [facility] [id number], [place] [address] Aug, [facility] [address] [place] [id number] Aug, [facility] [address] [id number], [place] [address] Aug, [facility] [address] [id number] [place] [address] July, [facility] [address] [id number] [place] [address] July, [facility] [address] [id number], [place] [address] Jun, [facility] [address] [id number], [place] [address] 23 Jun, 2011 [facility] [address] [id number] [place] [address] 16 Jun, 2011 [facility] [place] [facility] [address] [id number] [place] [address] 13 Jun, 2011 [facility] [place] [facility] [address] [id number] [place] [address] 15 Apr, 2011 [facility] [place] [facility] [address] [id number] [place] [address] 15 Apr, 2011 [facility] [address] [id number] [place] [address] 10 Apr, 2011 [facility] [place] [facility] [address] [id number] [place] [address] Mar, [facility] [address] [id number] [place] [address] Mar, [facility] [place] [facility] [address] [id number] [place] [address] Mar, [facility] [address] [id number] [place] [address] Mar, [facility] [address] [id number] [place] [address] Mar, [facility] [address] [id number] [place] [address] Jan, [facility] [place] [facility] [address] [id number] [place] [address] Jan, [facility] [place] [facility] [address] [id number] [place] [address] Jan, [facility] [place] [facility] [address] [id number] [place] [address] 17 Mar, 2010 [facility] [place] [facility] [address] [id number] [place] [address] Mar, [facility] [place] [facility] [address] [id number] [place] [address] 20 Feb, 2010 [facility] [place] [facility] [address] [id number] [place] [address] 16 Feb, 2010 [facility] [place] [facility] [address] [id number] [place] [address] 16 Feb, 2010 [facility] [place] [facility] [address] [id number] [place] [address] 17 Jan, 2010 [facility] [place] [facility] [address] [id number] [place] [address] 17 Jan, 2010 [facility] [place] [facility] [address] [id number] [place] [address] Dec, [facility] [place] [facility] [address] [id number] [place] [address] 19 Dec, 2009 [facility] [place] [facility] [address] [id number] [place] [address] 10 May, 2009 [facility] [place] [facility] [address] [id number] [place] [address] 10 Apr, 2009 [facility] [place] [facility] [address] [id number] [place] [address] 07 Feb, 2009 [facility] [place] [facility] [address] [id number] [place] [address] 03 Feb, 2009 [facility] [place] [facility] [address] [id number] [place] [address] 30 Jan, 2009 [facility] [place] [facility] [address] [id number] [place] [address] Jan, [facility] [place] [facility] [address] [id number] [place] [address] Jan, [facility] [place] [facility] [address] [id number] [place] [address] 11 Jan, 2009 [facility] [place] [facility] [address] [id number] [place] [address] Jan, IMMUNIZATIONS No Known Immunizations SOCIAL HISTORY Never Assessed REASON FOR VISIT EMR-[facility] PLAN OF CARE VITAL SIGNS MEDICATIONS Unknown [...]
[2018-10-04] MEDS ORDERED: MIDAZOLAM 2 MG/2 ML (VERSED) VIAL ONE (06:23)
--- OUTSIDE RECORDS SUMMARY | 2018-10-04 06:23 | XMS REPORT ---
Author Author Migration, Doctor Organization [facility] Address Unknown Phone Unavailable Care Team Providers Care Soil Fertility Extension Specialist Name Role Phone Migration, Doctor Unavailable Unavailable PROBLEMS Type Condition ICD9-CM Code GZJ09-FT Code Onset Dates Condition Status SNOMED Code Problem Nocturnal hypoxia G47.34 Active 339559906 Problem Primary osteoarthritis of both knees M17.0 Active 554825041 Problem Type 2 diabetes mellitus with diabetic polyneuropathy E11.42 Active 972433669 Problem Pure hypercholesterolemia E78.0 Active 617172809 Problem Chronic pain syndrome G89.4 Active 431976029 Problem Chronic systolic (congestive) heart failure I50.22 Active 103896276 Problem Tobacco abuse Z72.0 Active 982990196 Problem Posttraumatic stress disorder F43.10 Active 86698338 Problem Non-ischemic cardiomyopathy I42.9 Active 17212681 Problem Gastroesophageal reflux disease, esophagitis presence not specified K21.9 Active 135419984 Problem History of weight loss surgery Z98.84 Active 602700587 Problem Chronic obstructive pulmonary disease, unspecified COPD type J44.9 Active 66941715 Problem Chronic prescription opiate use Z79.891 Active 738991561 Problem MITCHELL treated with BiPAP G47.33 Active 46662692 Problem Severe major depression with psychotic features F32.3 Active 29990319 Problem Acute right-sided low back pain with right-sided sciatica M54.41 Active 05200338 Problem Obesity, morbid, BMI 40.0-49.9 E66.01 Active 872450371 Problem Macrocytosis D75.89 Active 101628083 Problem BMI 45.0-49.9, adult Z68.42 Active 841580450 Problem Pure hypercholesterolemia E78.00 Active 177337567 Problem Essential hypertension I10 Active 71364882 Problem Obstructive sleep apnea syndrome G47.33 Active 49403967 Problem History of DVT (deep vein thrombosis) Z86.718 Active 705365638 Problem Major depressive disorder, recurrent episode, unspecified severity F33.9 Active 19188980 Problem Mild episode of recurrent major depressive disorder F33.0 Active 114051037 Problem Mood disorder F39 Active 13806859 Problem Primary insomnia F51.01 Active 6127874 Problem Chronic systolic congestive heart failure I50.22 Active 300384845 ALLERGIES No Information ENCOUNTERS Encounter Location Date Diagnosis [facility] [id number] [place] [phone] 04 Aug, 2018 [facility] [id number] [place] [address] July, [facility] [id number] [place] [address] Jun, Mass of shoulder region R22.30 [facility] [id number] [place] [address] 05 Jun, 2018 Chronic pain syndrome G89.4 [facility] [id number] [place] [address] 18 May, 2018 Type 2 diabetes mellitus with diabetic polyneuropathy E11.42 ; Mass of shoulder region R22.30 and Morbid obesity E66.01 [facility] [id number] [place] [address] 07 May, 2018 Chronic pain syndrome G89.4 [facility] [id number] [place] [address] 04 May, 2018 Mood disorder F39 ; Posttraumatic stress disorder F43.10 and Morbid obesity E66.01 [facility] [id number] [place] [address] 14 Apr, 2018 Major depressive disorder, recurrent episode, unspecified severity F33.9 [facility] [id number] [place] [address] 13 Apr, 2018 Major depressive disorder, recurrent episode, unspecified severity F33.9 [facility] [id number] [place] [address] 07 Apr, 2018 Chronic pain syndrome G89.4 [facility] [id number] [place] [address] 14 Mar, 2018 Pain in right foot M79.671 ; Type 2 diabetes mellitus with diabetic polyneuropathy E11.42 ; Chronic pain syndrome G89.4 and BMI 50.0-59.9, adult Z68.43 [facility] [id number] [place] [address] Mar, [facility] [address] [address] Mar, [facility] [address] [address] Mar, Chronic pain syndrome G89.4 [facility] [place] [address] [address] Feb, Chronic pain syndrome G89.4 [facility] [address] [address] 30 Jan, 2018 Obstructive sleep apnea syndrome G47.33 [facility] [address] [address] 26 Jan, 2018 Type 2 diabetes mellitus with diabetic polyneuropathy E11.42 ; Chronic pain syndrome G89.4 ; Gastroesophageal reflux disease, esophagitis presence not specified K21.9 ; Essential hypertension I10 ; Pure hypercholesterolemia E78.00 ; Chronic prescription opiate use Z79.891 ; Obstructive sleep apnea syndrome G47.33 and BMI 50.0-59.9, adult Z68.43 [facility] [id number] [place] [address] 20 Jan, 2018 History of weight loss surgery Z98.84 [facility] [id number] [place] [address] 16 Jan, 2018 [facility] [address] [address] Jan, Chronic pain syndrome G89.4 [facility] [id number] [place] [address] Jan, [facility] [address] [place] [address] Jan, [facility] [id number] [place] [address] Dec, [facility] [address] [address] Dec, Chronic pain syndrome G89.4 [facility] [address] [address] Dec, Injury of left knee, subsequent encounter S89.92XD and Acute pain of left knee M25.562 [facility] [address] [address] Dec, [facility] [address] [address] Dec, Injury of left knee, initial encounter S89.92XA and BMI 45.0-49.9, adult Z68.42 [facility] [address] [address] Nov, Chest discomfort R07.89 ; Shortness of breath R06.02 ; Chronic systolic congestive heart failure I50.22 and Type 2 diabetes mellitus with diabetic polyneuropathy E11.42 [facility] [id number] [place] [address] Nov, Chronic pain syndrome G89.4 [facility] [address] [address] Oct, BMI 45.0-49.9, adult Z68.42 ; Type 2 diabetes mellitus with diabetic polyneuropathy E11.42 ; Chronic pain syndrome G89.4 ; Gastroesophageal reflux disease, esophagitis presence not specified K21.9 ; Decreased pedal pulses R09.89 and Precordial pain R07.2 [facility] [id number] [place] [address] Oct, [facility] [address] [address] Oct, Mood disorder F39 [facility] [address] [address] Oct, Mood disorder F39 ; Posttraumatic stress disorder F43.10 and BMI 45.0-49.9, adult Z68.42 [facility] [address] [address] Sep, Primary osteoarthritis of both knees M17.0 and Chronic pain syndrome G89.4 [facility] [address] [address] Sep, Mood disorder F39 and Posttraumatic stress disorder F43.10 [facility] [id number] [place] [address] Aug, Primary osteoarthritis of both knees M17.0 and Chronic pain syndrome G89.4 [facility] [id number] [place] [address] July, Primary osteoarthritis of both knees M17.0 and Chronic pain syndrome G89.4 [facility] [address] [address] July, Type 2 diabetes mellitus with diabetic polyneuropathy E11.42 ; Essential hypertension I10 ; Pure hypercholesterolemia E78.0 ; Chronic prescription opiate use Z79.891 ; Tobacco abuse Z72.0 ; Primary osteoarthritis of both knees M17.0 ; Primary insomnia F51.01 and BMI 45.0-49.9, adult Z68.42 [facility] [address] [address] July, Medicare annual wellness visit, initial Z00.00 [...] specified K21.9 and Encounter for immunization Z23 [facility] [id number] [place] [address] July, Primary osteoarthritis of both knees M17.0 and Chronic pain syndrome G89.4 [facility] [id number] [place] [address] Jun, Infection of right ear H66.91 ; Wheezing on auscultation R06.2 and BMI 45.0-49.9, adult Z68.42 [facility] [id number] [place] [address] Jun, [place] [place] [address] [address] Jun, Primary osteoarthritis of both knees M17.0 and Chronic pain syndrome G89.4 [facility] [id number] [place] [address] May, [facility] [id number] [place] [address] May, BMI 45.0-49.9, adult Z68.42 ; Mood disorder F39 and Posttraumatic stress disorder F43.10 [facility] [id number] [place] [address] May, [facility] [id number] [place] [address] May, Primary osteoarthritis of both knees M17.0 and Chronic pain syndrome G89.4 [facility] [id number] [place] [address] May, Mood disorder F39 [facility] [address] [address] Apr, Type 2 diabetes mellitus with diabetic polyneuropathy E11.42 [facility] [id number] [place] [address] Apr, [facility] [address] [address] Apr, Primary osteoarthritis of both knees M17.0 and Chronic pain syndrome G89.4 [facility] [address] [address] Apr, Mood disorder F39 [facility] [address] [address] Mar, Mood disorder F39 and Posttraumatic stress disorder F43.10 [facility] [address] [place] [address] Mar, Primary osteoarthritis of both knees M17.0 and Chronic pain syndrome G89.4 [facility] [id number] [place] [address] Feb, Primary osteoarthritis of both knees M17.0 and Chronic pain syndrome G89.4 [facility] [place] [address] [place] [address] Feb, Mood disorder F39 [place] [address] [place] [address] Jan, Type 2 diabetes mellitus with diabetic polyneuropathy E11.42 ; Primary osteoarthritis of both knees M17.0 ; Mood disorder F39 ; Obesity, morbid, BMI 40.0-49.9 E66.01 ; Chronic prescription opiate use Z79.891 ; Acute suppurative otitis media of both ears without spontaneous rupture of tympanic membranes, recurrence not specified H66.003 and BMI 45.0-49.9, adult Z68.42 [facility] [address] [address] Jan, Primary osteoarthritis of both knees M17.0 and Chronic pain syndrome G89.4 [facility] [address] [address] Dec, Mood disorder F39 and Posttraumatic stress disorder F43.10 [facility] [id number] [place] [address] 13 Dec, 2016 Primary osteoarthritis of both knees M17.0 and Chronic pain syndrome G89.4 [facility] [address] [place] [address] 18 Nov, 2016 Chronic pain syndrome G89.4 [facility] [address] [address] 15 Nov, 2016 Primary osteoarthritis of both knees M17.0 and Chronic pain syndrome G89.4 [facility] [id number] [place] [address] 13 Nov, 2016 Type 2 diabetes mellitus with diabetic polyneuropathy E11.42 and Chronic pain syndrome G89.4 [facility] [id number] [place] [address] 12 Nov, 2016 Posttraumatic stress disorder F43.10 and Mood disorder F39 [facility] [id number] [place] [address] Oct, Chronic pain syndrome G89.4 [facility] [address] [place] [address] Oct, Type 2 diabetes mellitus with diabetic polyneuropathy E11.42 ; BMI 45.0-49.9, adult Z68.42 ; Primary osteoarthritis of both knees M17.0 and Skin lesion L98.9 [facility] [address] [address] Oct, Chronic pain syndrome G89.4 [facility] [address] [address] Sep, Chronic pain syndrome G89.4 [facility] [address] [address] Sep, [facility] [address] [address] Sep, Chronic pain syndrome G89.4 [facility] [address] [place] [address] Aug, Chronic pain syndrome G89.4 [facility] [address] [address] Aug, [facility] [id number] [place] [address] Aug, Macrocytosis D75.89 and Pure hypercholesterolemia E78.0 [facility] [id number] [place] [address] Aug, Pure hypercholesterolemia E78.0 [facility] [address] [place] [address] Aug, Macrocytosis D75.89 [facility] [id number] [place] [address] Aug, Pure hypercholesterolemia E78.0 ; Type 2 diabetes mellitus with diabetic polyneuropathy E11.42 ; MITCHELL treated with BiPAP G47.33 and Chronic pain syndrome G89.4 [facility] [id number] [place] [address] Aug, [facility] [id number] [place] [address] Aug, Hemorrhoids, unspecified hemorrhoid type K64.9 [facility] [address] [place] [address] Aug, Chronic pain syndrome G89.4 ; Type 2 diabetes mellitus with diabetic polyneuropathy E11.42 ; Hemorrhoids, unspecified hemorrhoid type K64.9 ; Tobacco abuse Z72.0 and Primary osteoarthritis of both knees M17.0 [facility] [address] [place] [address] July, Chronic pain syndrome G89.4 [facility] [address] [place] [address] July, [facility] [address] [place] [address] Jun, Chronic pain syndrome G89.4 [facility] [address] [place] [address] Jun, Chronic pain syndrome G89.4 [facility] [id number] [place] [address] Jun, Severe major depression with psychotic features F32.3 and Posttraumatic stress disorder F43.10 [facility] [id number] [place] [address] Jun, Chronic pain syndrome G89.4 [facility] [id number] [place] [address] Jun, [facility] [id number] [place] [address] May, Chronic pain syndrome G89.4 [facility] [id number] [place] [address] May, Tobacco abuse Z72.0 [facility] [id number] [place] [address] May, [facility] [id number] [place] [address] Apr, Chronic pain syndrome G89.4 [facility] [id number] [place] [address] Apr, [facility] [id number] [place] [address] Apr, Right foot pain M79.671 [facility] [id number] [place] [address] Mar, Type 2 diabetes mellitus with diabetic polyneuropathy E11.42 ; MITCHELL treated with BiPAP G47.33 ; Pure hypercholesterolemia E78.0 ; Chronic pain syndrome G89.4 ; Tobacco abuse Z72.0 and Obesity, morbid, BMI 40.0-49.9 E66.01 [facility] [id number] [place] [address] Mar, [facility] [address] [address] Mar, [facility] [address] [address] Mar, [facility] [address] [address] Mar, [facility] [address] [place] [address] Mar, [facility] [address] [place] [address] Mar, Severe major depression with psychotic features F32.3 and Posttraumatic stress disorder F43.10 [facility] [address] [address] Mar, [facility] [address] [place] [address] Feb, [facility] [address] [address] Feb, [facility] [address] [place] [address] Jan, [facility] [address] [address] Jan, [facility] [address] [address] Dec, Posttraumatic stress disorder F43.10 and Severe major depression with psychotic features F32.3 [facility] [address] [address] Dec, Type 2 diabetes mellitus with diabetic polyneuropathy E11.42 ; Chronic pain syndrome G89.4 and Acute right-sided low back pain with right-sided sciatica M54.41 [facility] [address] [address] Dec, [facility] [address] [address] Dec, [facility] [address] [address] Nov, [facility] [address] [address] Nov, [facility] [id number] [place] [address] Nov, [facility] [address] [place] [address] Oct, [facility] [address] [place] [address] Oct, [facility] [address] [place] [address] Sep, Dental examination Z01.20 [facility] [address] [place] [address] Sep, [facility] [address] [place] [address] Sep, Type 2 diabetes mellitus with diabetic polyneuropathy E11.42 ; Chronic pain syndrome G89.4 ; Chronic prescription opiate use Z79.891 ; Injury of right index finger, sequela S69.91XS and Anejaculation N50.8 [facility] [address] [address] Aug, [facility] [address] [address] Aug, [facility] [address] [place] [address] Aug, Cellulitis of finger of right hand L03.011 [facility] [address] [address] July, [facility] [address] [address] July, [facility] [address] [address] Jun, Onychomycosis B35.1 [facility] [address] [address] Jun, Severe major depression with psychotic features F32.3 and Posttraumatic stress disorder F43.10 [facility] [address] [address] Jun, [facility] [address] [place] [address] Jun, [facility] [address] [address] Jun, [facility] [address] [place] [address] May, Type 2 diabetes mellitus with diabetic polyneuropathy E11.42 [facility] [address] [address] May, Type 2 diabetes mellitus with diabetic polyneuropathy E11.42 and Urinary hesitancy R39.11 [facility] [address] [address] May, Type 2 diabetes mellitus with diabetic polyneuropathy E11.42 ; Left hip pain M25.552 and Benign prostatic hyperplasia with lower urinary tract symptoms, unspecified morphology N40.1 [facility] [address] [address] May, [facility] [address] [address] Apr, Severe major depression with psychotic features F32.3 and Posttraumatic stress disorder F43.10 [facility] [address] [address] Apr, [facility] [address] [place] [address] Mar, [facility] [id number] [place] [address] Mar, Dysuria R30.0 and Urinary hesitancy R39.11 [facility] [id number] [place] [address] Mar, Onychomycosis B35.1 [facility] [id number] [place] [address] Mar, [facility] [id number] [place] [address] Feb, [facility] [id number] [place] [address] Jan, [facility] [id number] [place] [address] Jan, Posttraumatic stress disorder F43.10 and Severe major depression with psychotic features F32.3 [facility] [id number] [place] [address] Jan, [facility] [id number] [place] [phone] Jan, Chronic pain syndrome G89.4 ; Type 2 diabetes mellitus with diabetic polyneuropathy E11.42 ; Decreased pedal pulses R09.89 and Paresthesia of both hands R20.2 [facility] [id number] [place] [phone] Dec, Posttraumatic stress disorder F43.10 and Severe major depression with psychotic features F32.3 [facility] [id number] [place] [phone] Dec, [facility] [id number] [place] [id number] Dec, [facility] [id number] [place] [phone] Dec, Onychomycosis B35.1 [facility] [id number] [place] [phone] Dec, [facility] [id number] [place] [phone] Dec, [facility] [id number] [place] [phone] Nov, [facility] [id number] [place] [address] [address] Oct, Depression, major, recurrent, moderate 296.32 and Posttraumatic stress disorder 309.81 [facility] [id number] [place] [address] Oct, [facility] [id number] [place] [address] Oct, [facility] [id number] [place] [address] Oct, [facility] [id number] [place] [address] Sep, Posttraumatic stress disorder 309.81 and Depression, major, recurrent, moderate 296.32 [facility] [id number] [place] [address] Sep, [facility] [id number] [place] [address] Sep, Chronic airway obstruction, not elsewhere classified 496 [facility] [id number] [place] [address] Sep, Onychomycosis 110.1 and DM neuro manif type II 250.60 [facility] [id number] [place] [address] Sep, Chronic pain 338.29 ; Chronic airway obstruction, not elsewhere classified 496 ; Osteoarthritis of knees, bilateral 715.96 and On potassium wasting diuretic therapy V58.69 [facility] [id number] [place] [address] Sep, Insect bites 919.4 ; Sinusitis 473.9 and GERD (gastroesophageal reflux disease) 530.81 [facility] [id number] [place] [address] Aug, Depression, major, recurrent, moderate 296.32 and Posttraumatic stress disorder 309.81 [facility] [id number] [place] [address] Aug, [facility] [id number] [place] [address] Aug, [facility] [id number] [place] [address] Aug, [facility] [id number] [place] [address] July, Major depressive disorder, recurrent episode, moderate 296.32 and Posttraumatic stress disorder 309.81 [facility] [address] [address] July, [facility] [id number] [place] [address] July, [facility] [id number] [address] July, [facility] [id number] [place] [address] July, [facility] [id number] [place] [address] Jun, [facility] [id number] [place] [address] Jun, [facility] [id number] [place] [address] May, [facility] [address] [address] May, [facility] [place] [facility] [address] [id number] [place] [address] 18 May, 2014 [facility] [place] [facility] [address] [id number] [place] [address] May, 2014 [facility] [place] [facility] [address] [id number] [place] [address] May, 2014 [facility] [place] [facility] [address] [id number] [place] [address] May, 2014 [facility] [place] [facility] [address] [id number] [place] [address] May, 2014 [facility] [place] [facility] [address] [id number] [place] [address] May, [facility] [place] [facility] [address] [facility] [id number] [place] [address] May, [facility] [place] [facility] [address] [id number] [place] [address] Apr, 2014 [facility] [place] [facility] [address] [id number] [place] [address] Apr, 2014 [facility] [place] [facility] [address] [facility] [id number] [place] [address] Apr, 2014 [facility] [place] [facility] [address] [facility] [id number] [place] [address] Apr, 2014 [facility] [place] [facility] [address] [id number] [place] [address] Apr, 2014 [facility] [place] [facility] [address] [id number] [place] [address] Apr, 2014 [facility] [place] [facility] [address] [id number] [place] [address] Apr, [facility] [place] [facility] [address] [facility] [id number] [place] [address] Apr, 2014 [facility] [place] [facility] [address] [facility] [id number] [place] [address] 04 Apr, 2014 [facility] [place] [facility] [address] [id number] [place] [address] 30 Mar, 2014 [facility] [place] [facility] [address] [id number] [place] [address] 30 Mar, 2014 [facility] [place] [facility] [address] [id number] [place] [address] Mar, [facility] [place] [facility] [address] [id number] [place] [address] Mar, [facility] [place] [facility] [address] [id number] [place] [address] Mar, [facility] [place] [facility] [address] [id number] [place] [address] Mar, [facility] [place] [facility] [address] [id number] [place] [address] Mar, [facility] [place] [facility] [address] [id number] [place] [address] Mar, [facility] [place] [facility] [address] [id number] [place] [address] Mar, [facility] [place] [facility] [address] [id number] [place] [address] Mar, [facility] [place] [facility] [address] [id number] [place] [address] 14 Mar, 2014 [facility] [place] [facility] [address] [id number] [address] 14 Mar, 2014 [facility] [place] [facility] [address] [id number] [place] [address] Mar, [facility] [place] [facility] [address] [id number] [place] [address] 14 Mar, 2014 [facility] [place] [facility] [address] [id number] [address] 14 Mar, 2014 [facility] [place] [facility] [address] [id number] [place] [address] 14 Mar, 2014 [facility] [place] [facility] [address] [id number] [place] [address] Mar, [facility] [place] [facility] [address] [id number] [place] [address] Mar, [facility] [place] [facility] [address] [id number] [place] [address] 16 Feb, 2014 [facility] [place] [facility] [address] [id number] [place] [address] 16 Feb, 2014 [facility] [place] [facility] [address] [id number] [place] [address] 15 Feb, 2014 [facility] [place] [facility] [address] [id number] [place] [address] 15 Feb, 2014 [facility] [place] [facility] [address] [id number] [place] [address] 15 Feb, 2014 [facility] [place] [facility] [address] [id number] [place] [address] Feb, [facility] [place] [facility] [address] [id number] [place] [address] Jan, [facility] [place] [facility] [address] [id number] [place] [address] Jan, [facility] [place] [facility] [address] [id number] [place] [address] Jan, [facility] [place] [facility] [address] [id number] [place] [address] Jan, [facility] [place] [facility] [address] [id number] [place] [address] Jan, [facility] [place] [facility] [address] [id number] [place] [address] Jan, [facility] [place] [facility] [address] [id number] [place] [address] Jan, [facility] [place] [facility] [address] [id number] [place] [address] Jan, [facility] [place] [facility] [address] [id number] [place] [address] Jan, [facility] [place] [facility] [address] [id number] [place] [address] Jan, [facility] [place] [facility] [address] [id number] [place] [address] Dec, [facility] [place] [facility] [address] [id number] [place] [address] Dec, [facility] [place] [facility] [address] [id number] [place] [address] Dec, [facility] [place] [facility] [address] [id number] [place] [address] Dec, [facility] [place] [facility] [address] [id number] [place] [address] 16 Nov, 2013 [facility] [place] [facility] [address] [id number] [place] [address] 16 Nov, 2013 [facility] [place] [facility] [address] [id number] [place] [address] Nov, [facility] [place] [facility] [address] [id number] [address] Nov, [facility] [place] [facility] [address] [id number] [place] [address] Nov, 2013 [facility] [place] [facility] [address] [id number] [place] [address] Nov, [facility] [place] [facility] [address] [id number] [place] [address] Oct, [facility] [place] [facility] [address] [id number] [place] [address] Oct, [facility] [place] [facility] [address] [id number] [place] [address] Oct, [facility] [address] [id number] [place] [address] Oct, [facility] [place] [facility] [address] [id number] [place] [address] Sep, [facility] [place] [facility] [address] [id number] [place] [address] Sep, [facility] [place] [facility] [address] [id number] [place] [address] Sep, [facility] [place] [facility] [address] [id number] [place] [address] Sep, [facility] [address] [id number] [place] [address] Sep, [facility] [address] [id number] [place] [address] Sep, [facility] [address] [id number] [place] [address] July, [facility] [place] [facility] [address] [id number] [place] [address] July, [facility] [address] [id number] [place] [address] July, [facility] [place] [facility] [address] [id number] [place] [address] July, [facility] [place] [facility] [address] [id number] [place] [address] Jun, [facility] [place] [facility] [address] [id number] [place] [address] Jun, [facility] [place] [facility] [address] [id number] [place] [address] Jun, [facility] [place] [facility] [address] [id number] [place] [address] Jun, [facility] [place] [facility] [address] [id number] [place] [address] Jun, [facility] [place] [facility] [address] [id number] [place] [address] Jun, [facility] [place] [facility] [address] [id number] [place] [address] May, [facility] [place] [facility] [address] [id number] [place] [address] May, [facility] [place] [facility] [address] [id number] [place] [address] Apr, [facility] [place] [facility] [address] [id number] [place] [address] Apr, [facility] [place] [facility] [address] [facility] [id number] [place] [address] Apr, [facility] [place] [facility] [address] [id number] [place] [address] Apr, [facility] [place] [facility] [address] [id number] [place] [address] Apr, [facility] [place] [facility] [address] [facility] [id number] [place] [address] Apr, [facility] [place] [facility] [address] [id number] [place] [address] Apr, [facility] [place] [facility] [address] [id number] [place] [address] Mar, [facility] [place] [facility] [address] [id number] [place] [address] Mar, [facility] [place] [facility] [address] [id number] [place] [address] Mar, [facility] [place] [facility] [address] [facility] [id number] [place] [address] Mar, [facility] [place] [facility] [address] [id number] [place] [address] Mar, [facility] [address] [id number] [place] [address] Mar, [facility] [place] [facility] [address] [id number] [place] [address] Mar, [facility] [address] [id number] [place] [address] Mar, [facility] [place] [facility] [address] [id number] [place] [address] Feb, [facility] [address] [id number] [place] [address] Feb, [facility] [place] [facility] [address] [id number] [place] [address] Feb, [facility] [address] [id number] [place] [address] Feb, [facility] [place] [facility] [address] [id number] [place] [address] Feb, [facility] [place] [facility] [address] [id number] [place] [address] Feb, [facility] [place] [facility] [address] [id number] [place] [address] Feb, [facility] [place] [facility] [address] [id number] [place] [address] Jan, [facility] [place] [facility] [address] [id number] [place] [address] Jan, [facility] [place] [facility] [address] [id number] [place] [address] Jan, [facility] [place] [facility] [address] [id number] [place] [address] Jan, [facility] [place] [facility] [address] [id number] [place] [address] Jan, [facility] [place] [facility] [address] [id number] [place] [address] Jan, [facility] [place] [facility] [address] [id number] [place] [id number] Jan, [facility] [place] [facility] [address] [id number] [place] [address] Jan, [facility] [place] [facility] [address] [id number] [place] [address] Dec, [facility] [place] [facility] [address] [id number] [place] [address] Dec, [facility] [place] [facility] [address] [id number] [place] [address] Dec, [facility] [place] [facility] [address] [id number] [place] [address] Dec, [facility] [place] [facility] [address] [id number] [place] [address] Dec, [facility] [place] [facility] [address] [id number] [place] [address] Dec, [facility] [place] [facility] [address] [id number] [place] [address] Dec, [facility] [place] [facility] [address] [id number] [place] [address] Dec, [facility] [place] [facility] [address] [id number] [place] [address] Dec, [facility] [place] [facility] [address] [id number] [place] [address] Dec, [facility] [place] [facility] [address] [id number] [place] [id number] Nov, [facility] [place] [facility] [address] [id number] [place] [id number] Nov, [facility] [place] [facility] [address] [id number] [place] [address] 24 Nov, 2012 [facility] [place] [facility] [address] [id number] [place] [address] 20 Nov, 2012 [facility] [place] [facility] [address] [id number] [place] [address] Nov, [facility] [place] [facility] [address] [id number] [place] [address] Nov, [facility] [place] [facility] [address] [id number] [place] [address] 10 Nov, 2012 [facility] [place] [facility] [address] [id number] [place] [address] Nov, [facility] [place] [facility] [address] [id number] [place] [address] Oct, [facility] [place] [facility] [address] [id number] [place] [address] Oct, [facility] [place] [facility] [address] [id number] [place] [address] Oct, [facility] [place] [facility] [address] [id number] [place] [address] Sep, [facility] [place] [facility] [address] [id number] [place] [address] Sep, [facility] [place] [facility] [address] [id number] [place] [address] Sep, [facility] [place] [facility] [address] [id number] [place] [address] Sep, [facility] [place] [facility] [address] [id number] [place] [address] Sep, [facility] [place] [facility] [address] [id number] [place] [address] Aug, [facility] [place] [facility] [address] [id number] [place] [address] Aug, [facility] [place] [facility] [address] [id number] [place] [address] Aug, [facility] [address] [id number] [place] [address] Aug, [facility] [address] [id number] [place] [address] Aug, [facility] [address] [id number] [place] [address] Aug, [facility] [address] [id number] [place] [address] July, [facility] [address] [id number] [place] [address] July, [facility] [address] [id number] [place] [address] July, [facility] [address] [id number] [place] [address] July, [facility] [address] [id number] [place] [address] July, [facility] [address] [id number] [place] [address] July, [facility] [address] [id number] [place] [address] Jun, [facility] [address] [id number] [place] [address] Jun, [facility] [address] [id number] [place] [address] Jun, [facility] [address] [id number] [place] [address] Jun, [facility] [address] [id number] [place] [address] May, [facility] [address] [id number] [place] [address] May, [facility] [address] [id number] [place] [address] May, [facility] [address] [id number] [place] [address] Apr, [facility] [place] [facility] [address] [id number] [place] [address] Mar, [facility] [place] [facility] [address] [id number] [place] [address] 18 Mar, 2012 [facility] [place] [facility] [address] [id number] [place] [address] 17 Mar, 2012 [facility] [place] [facility] [address] [id number] [place] [address] 16 Mar, 2012 [facility] [address] [id number] [place] [address] 15 Mar, 2012 [facility] [address] [id number] [place] [address] Feb, [facility] [address] [id number] [place] [address] Feb, [facility] [address] [id number] [place] [address] Feb, [facility] [address] [id number] [place] [address] Feb, [facility] [address] [id number] [place] [address] Jan, [facility] [place] [facility] [address] [id number] [place] [address] Jan, [facility] [place] [facility] [address] [id number] [place] [address] Jan, [facility] [place] [facility] [address] [id number] [place] [address] Jan, [facility] [place] [facility] [address] [id number] [place] [address] Dec, [facility] [address] [id number] [place] [address] Dec, [facility] [address] [id number] [place] [address] Nov, [facility] [address] [id number] [place] [address] Oct, [facility] [address] [id number] [place] [address] Oct, [facility] [address] [id number] [place] [address] Oct, [facility] [address] [id number] [place] [address] Oct, [facility] [address] [id number] [place] [address] Oct, [facility] [address] [id number] [place] [address] Sep, [facility] [address] [id number] [place] [address] Sep, [facility] [address] [facility] [id number] [place] [address] Aug, [facility] [address] [place] [id number] Aug, [facility] [address] [id number] [place] [address] Aug, [facility] [address] [id number] [place] [address] July, [facility] [address] [id number] [place] [address] July, [facility] [address] [id number] [place] [address] Jun, [facility] [address] [id number] [place] [address] 23 Jun, 2011 [facility] [address] [id number] [place] [address] 16 Jun, 2011 [facility] [place] [facility] [address] [id number] [place] [address] 13 Jun, 2011 [facility] [place] [facility] [address] [id number] [place] [address] 15 Apr, 2011 [facility] [place] [facility] [address] [id number] [place] [address] 15 Apr, 2011 [facility] [address] [id number] [place] [address] 10 Apr, 2011 [facility] [place] [facility] [address] [id number] [place] [address] Mar, [facility] [address] [id number] [place] [address] Mar, [facility] [place] [facility] [address] [id number] [place] [address] Mar, [facility] [address] [id number] [place] [address] Mar, [facility] [address] [id number] [place] [address] Mar, [facility] [address] [id number] [place] [address] Jan, [facility] [place] [facility] [address] [id number] [place] [address] Jan, [facility] [place] [facility] [address] [id number] [place] [address] Jan, [facility] [place] [facility] [address] [id number] [place] [address] 17 Mar, 2010 [facility] [place] [facility] [address] [id number] [place] [address] Mar, [facility] [place] [facility] [address] [id number] [place] [address] 20 Feb, 2010 [facility] [place] [facility] [address] [id number] [place] [address] 16 Feb, 2010 [facility] [place] [facility] [address] [id number] [place] [address] 16 Feb, 2010 [facility] [place] [facility] [address] [id number] [place] [address] 17 Jan, 2010 [facility] [place] [facility] [address] [id number] [place] [address] 17 Jan, 2010 [facility] [place] [facility] [address] [id number] [place] [address] Dec, [facility] [place] [facility] [address] [id number] [place] [address] 19 Dec, 2009 [facility] [place] [facility] [address] [id number] [place] [address] 10 May, 2009 [facility] [place] [facility] [address] [id number] [place] [address] 10 Apr, 2009 [facility] [place] [facility] [address] [id number] [place] [address] 07 Feb, 2009 [facility] [place] [facility] [address] [id number] [place] [address] 03 Feb, 2009 [facility] [place] [facility] [address] [id number] [place] [address] 30 Jan, 2009 [facility] [place] [facility] [address] [id number] [place] [address] Jan, [facility] [place] [facility] [address] [id number] [place] [address] Jan, [facility] [place] [facility] [address] [id number] [place] [address] 11 Jan, 2009 [facility] [place] [facility] [address] [id number] [place] [address] Jan, IMMUNIZATIONS No Known Immunizations SOCIAL HISTORY Never Assessed REASON FOR VISIT [place] [place] VITAL SIGNS MEDICATIONS Unknown [...] Hospitalization History ED then admitted to [facility]-cardiac stepdown-chest pain 02/2010 Hospitalization History Possible DVT-sono negative 06/2010 Hospitalization History cellulitis to bilat legs
--- OUTSIDE RECORDS SUMMARY | 2018-10-04 06:24 | XMS REPORT ---
Author Author Migration, Doctor Organization [facility] Address Unknown Phone Unavailable Care Team Providers Care Machine Clothing Man Name Role Phone Migration, Doctor Unavailable Unavailable PROBLEMS Type Condition ICD9-CM Code SQT94-DW Code Onset Dates Condition Status SNOMED Code Problem Nocturnal hypoxia G47.34 Active 321300600 Problem Primary osteoarthritis of both knees M17.0 Active 042905892 Problem Type 2 diabetes mellitus with diabetic polyneuropathy E11.42 Active 380084407 Problem Pure hypercholesterolemia E78.0 Active 861686532 Problem Chronic pain syndrome G89.4 Active 477730774 Problem Chronic systolic (congestive) heart failure I50.22 Active 489209797 Problem Tobacco abuse Z72.0 Active 373251898 Problem Posttraumatic stress disorder F43.10 Active 56838969 Problem Non-ischemic cardiomyopathy I42.9 Active 81031871 Problem Gastroesophageal reflux disease, esophagitis presence not specified K21.9 Active 106870388 Problem History of weight loss surgery Z98.84 Active 048341508 Problem Chronic obstructive pulmonary disease, unspecified COPD type J44.9 Active 55644439 Problem Chronic prescription opiate use Z79.891 Active 998100953 Problem MITCHELL treated with BiPAP G47.33 Active 00229988 Problem Severe major depression with psychotic features F32.3 Active 37262649 Problem Acute right-sided low back pain with right-sided sciatica M54.41 Active 51196558 Problem Obesity, morbid, BMI 40.0-49.9 E66.01 Active 909655480 Problem Macrocytosis D75.89 Active 502284923 Problem BMI 45.0-49.9, adult Z68.42 Active 811934145 Problem Pure hypercholesterolemia E78.00 Active 428158399 Problem Essential hypertension I10 Active 48491593 Problem Obstructive sleep apnea syndrome G47.33 Active 66455632 Problem History of DVT (deep vein thrombosis) Z86.718 Active 103157547 Problem Major depressive disorder, recurrent episode, unspecified severity F33.9 Active 61237662 Problem Mild episode of recurrent major depressive disorder F33.0 Active 902498036 Problem Mood disorder F39 Active 40123075 Problem Primary insomnia F51.01 Active 9192953 Problem Chronic systolic congestive heart failure I50.22 Active 395036907 ALLERGIES No Information ENCOUNTERS Encounter Location Date Diagnosis [facility] [id number] [place] [address] 04 Aug, 2018 [facility] [id number] [place] [address] July, [facility] [id number] [place] [address] Jun, Mass of shoulder region R22.30 [facility] [id number] [place] [address] 05 Jun, 2018 Chronic pain syndrome G89.4 [facility] [id number] [place] [address] 18 May, 2018 Type 2 diabetes mellitus with diabetic polyneuropathy E11.42 ; Mass of shoulder region R22.30 and Morbid obesity E66.01 [facility] [id number] [place] [address] 07 May, 2018 Chronic pain syndrome G89.4 [facility] [id number] [place] [address] 04 May, 2018 Mood disorder F39 ; Posttraumatic stress disorder F43.10 and Morbid obesity E66.01 [facility] [id number] [place] [address] 14 Apr, 2018 Major depressive disorder, recurrent episode, unspecified severity F33.9 [facility] [id number] [place] [address] 13 Apr, 2018 Major depressive disorder, recurrent episode, unspecified severity F33.9 [facility] [id number] [place] [address] 07 Apr, 2018 Chronic pain syndrome G89.4 [facility] [id number] [place] [address] 14 Mar, 2018 Pain in right foot M79.671 ; Type 2 diabetes mellitus with diabetic polyneuropathy E11.42 ; Chronic pain syndrome G89.4 and BMI 50.0-59.9, adult Z68.43 [facility] [id number] [place] [address] Mar, [facility] [address] [address] Mar, [facility] [address] [address] Mar, Chronic pain syndrome G89.4 [facility] [address] [address] Feb, Chronic pain syndrome G89.4 [facility] [address] [address] 30 Jan, 2018 Obstructive sleep apnea syndrome G47.33 [facility] [address] [address] 26 Jan, 2018 Type 2 diabetes mellitus with diabetic polyneuropathy E11.42 ; Chronic pain syndrome G89.4 ; Gastroesophageal reflux disease, esophagitis presence not specified K21.9 ; Essential hypertension I10 ; Pure hypercholesterolemia E78.00 ; Chronic prescription opiate use Z79.891 ; Obstructive sleep apnea syndrome G47.33 and BMI 50.0-59.9, adult Z68.43 [facility] [id number] [place] [address] 20 Jan, 2018 History of weight loss surgery Z98.84 [facility] [id number] [place] [address] 16 Jan, 2018 [facility] [address] [address] Jan, Chronic pain syndrome G89.4 [facility] [id number] [place] [address] Jan, [facility] [address] [place] [address] Jan, [facility] [id number] [place] [address] Dec, [facility] [address] [address] Dec, Chronic pain syndrome G89.4 [facility] [address] [address] Dec, Injury of left knee, subsequent encounter S89.92XD and Acute pain of left knee M25.562 [facility] [address] [address] Dec, [facility] [address] [address] Dec, Injury of left knee, initial encounter S89.92XA and BMI 45.0-49.9, adult Z68.42 [facility] [address] [address] Nov, Chest discomfort R07.89 ; Shortness of breath R06.02 ; Chronic systolic congestive heart failure I50.22 and Type 2 diabetes mellitus with diabetic polyneuropathy E11.42 [facility] [id number] [place] [address] Nov, Chronic pain syndrome G89.4 [facility] [address] [address] Oct, BMI 45.0-49.9, adult Z68.42 ; Type 2 diabetes mellitus with diabetic polyneuropathy E11.42 ; Chronic pain syndrome G89.4 ; Gastroesophageal reflux disease, esophagitis presence not specified K21.9 ; Decreased pedal pulses R09.89 and Precordial pain R07.2 [facility] [id number] [place] [address] Oct, [facility] [address] [address] Oct, Mood disorder F39 [facility] [address] [place] [address] Oct, Mood disorder F39 ; Posttraumatic stress disorder F43.10 and BMI 45.0-49.9, adult Z68.42 [facility] [address] [place] [address] Sep, Primary osteoarthritis of both knees M17.0 and Chronic pain syndrome G89.4 [facility] [address] [place] [address] Sep, Mood disorder F39 and Posttraumatic stress disorder F43.10 [facility] [id number] [place] [address] Aug, Primary osteoarthritis of both knees M17.0 and Chronic pain syndrome G89.4 [facility] [id number] [place] [address] July, Primary osteoarthritis of both knees M17.0 and Chronic pain syndrome G89.4 [facility] [address] [place] [address] July, Type 2 diabetes mellitus with diabetic polyneuropathy E11.42 ; Essential hypertension I10 ; Pure hypercholesterolemia E78.0 ; Chronic prescription opiate use Z79.891 ; Tobacco abuse Z72.0 ; Primary osteoarthritis of both knees M17.0 ; Primary insomnia F51.01 and BMI 45.0-49.9, adult Z68.42 [facility] [address] [address] July, Medicare annual wellness visit, initial Z00.00 [...] specified K21.9 and Encounter for immunization Z23 [facility] [id number] [place] [address] July, Primary osteoarthritis of both knees M17.0 and Chronic pain syndrome G89.4 [facility] [id number] [place] [address] Jun, Infection of right ear H66.91 ; Wheezing on auscultation R06.2 and BMI 45.0-49.9, adult Z68.42 [facility] [id number] [place] [address] Jun, [facility] [address] [address] Jun, Primary osteoarthritis of both knees M17.0 and Chronic pain syndrome G89.4 [facility] [id number] [place] [address] May, [facility] [id number] [place] [address] May, BMI 45.0-49.9, adult Z68.42 ; Mood disorder F39 and Posttraumatic stress disorder F43.10 [facility] [id number] [place] [address] May, [facility] [id number] [place] [address] May, Primary osteoarthritis of both knees M17.0 and Chronic pain syndrome G89.4 [facility] [id number] [place] [address] May, Mood disorder F39 [facility] [address] [address] Apr, Type 2 diabetes mellitus with diabetic polyneuropathy E11.42 [facility] [id number] [place] [address] Apr, [facility] [address] [place] [address] Apr, Primary osteoarthritis of both knees M17.0 and Chronic pain syndrome G89.4 [facility] [address] [address] Apr, Mood disorder F39 [facility] [address] [address] Mar, Mood disorder F39 and Posttraumatic stress disorder F43.10 [facility] [address] [place] [address] Mar, Primary osteoarthritis of both knees M17.0 and Chronic pain syndrome G89.4 [facility] [id number] [place] [address] Feb, Primary osteoarthritis of both knees M17.0 and Chronic pain syndrome G89.4 [facility] [address] [place] [address] Feb, Mood disorder F39 [facility] [address] [place] [address] Jan, Type 2 diabetes mellitus with diabetic polyneuropathy E11.42 ; Primary osteoarthritis of both knees M17.0 ; Mood disorder F39 ; Obesity, morbid, BMI 40.0-49.9 E66.01 ; Chronic prescription opiate use Z79.891 ; Acute suppurative otitis media of both ears without spontaneous rupture of tympanic membranes, recurrence not specified H66.003 and BMI 45.0-49.9, adult Z68.42 [facility] [address], [place] [address] Jan, Primary osteoarthritis of both knees M17.0 and Chronic pain syndrome G89.4 [facility] [address], [place] [address] Dec, Mood disorder F39 and Posttraumatic stress disorder F43.10 [facility] [id number] [place] [address] 13 Dec, 2016 Primary osteoarthritis of both knees M17.0 and Chronic pain syndrome G89.4 [facility] [address] [place] [address] 18 Nov, 2016 Chronic pain syndrome G89.4 [facility] [address] [address] 15 Nov, 2016 Primary osteoarthritis of both knees M17.0 and Chronic pain syndrome G89.4 [facility] [id number] [place] [address] 13 Nov, 2016 Type 2 diabetes mellitus with diabetic polyneuropathy E11.42 and Chronic pain syndrome G89.4 [facility] [id number] [place] [address] 12 Nov, 2016 Posttraumatic stress disorder F43.10 and Mood disorder F39 [facility] [id number] [place] [address] Oct, Chronic pain syndrome G89.4 [facility] [address] [place] [address] Oct, Type 2 diabetes mellitus with diabetic polyneuropathy E11.42 ; BMI 45.0-49.9, adult Z68.42 ; Primary osteoarthritis of both knees M17.0 and Skin lesion L98.9 [facility] [address] [place] [address] Oct, Chronic pain syndrome G89.4 [facility] [address] [place] [address] Sep, Chronic pain syndrome G89.4 [facility] [address] [place] [address] Sep, [facility] [id number] [place] [address] Sep, Chronic pain syndrome G89.4 [facility] [address] [place] [address] Aug, Chronic pain syndrome G89.4 [facility] [address] [address] Aug, [facility] [id number] [place] [address] Aug, Macrocytosis D75.89 and Pure hypercholesterolemia E78.0 [facility] [id number] [place] [address] Aug, Pure hypercholesterolemia E78.0 [facility] [address] [place] [address] Aug, Macrocytosis D75.89 [facility] [id number] [place] [address] Aug, Pure hypercholesterolemia E78.0 ; Type 2 diabetes mellitus with diabetic polyneuropathy E11.42 ; MITCHELL treated with BiPAP G47.33 and Chronic pain syndrome G89.4 [facility] [id number] [place] [address] Aug, [facility] [id number] [place] [address] Aug, Hemorrhoids, unspecified hemorrhoid type K64.9 [facility] [address] [place] [address] Aug, Chronic pain syndrome G89.4 ; Type 2 diabetes mellitus with diabetic polyneuropathy E11.42 ; Hemorrhoids, unspecified hemorrhoid type K64.9 ; Tobacco abuse Z72.0 and Primary osteoarthritis of both knees M17.0 [facility] [address] [place] [address] July, Chronic pain syndrome G89.4 [facility] [address] [place] [address] July, [facility] [address] [place] [address] Jun, Chronic pain syndrome G89.4 [facility] [address] [place] [address] Jun, Chronic pain syndrome G89.4 [facility] [id number] [place] [address] Jun, Severe major depression with psychotic features F32.3 and Posttraumatic stress disorder F43.10 [facility] [id number] [place] [address] Jun, Chronic pain syndrome G89.4 [facility] [id number] [place] [address] Jun, [facility] [id number] [place] [address] May, Chronic pain syndrome G89.4 [facility] [id number] [place] [address] May, Tobacco abuse Z72.0 [facility] [id number] [place] [address] May, [facility] [id number] [place] [address] Apr, Chronic pain syndrome G89.4 [facility] [id number] [place] [address] Apr, [facility] [id number] [place] [address] Apr, Right foot pain M79.671 [facility] [id number] [place] [address] Mar, Type 2 diabetes mellitus with diabetic polyneuropathy E11.42 ; MITCHELL treated with BiPAP G47.33 ; Pure hypercholesterolemia E78.0 ; Chronic pain syndrome G89.4 ; Tobacco abuse Z72.0 and Obesity, morbid, BMI 40.0-49.9 E66.01 [facility] [id number] [place] [address] Mar, [facility] [address] [place] [address] Mar, [facility] [address] [place] [address] Mar, [facility] [address], [place] [address] Mar, [facility] [address] [place] [address] Mar, [facility] [address] [place] [address] Mar, Severe major depression with psychotic features F32.3 and Posttraumatic stress disorder F43.10 [facility] [address] [address] Mar, [facility] [address] [place] [address] Feb, [facility] [address] [place] [address] Feb, [facility] [address] [place] [address] Jan, [facility] [address] [place] [address] Jan, [facility] [address] [place] [address] Dec, Posttraumatic stress disorder F43.10 and Severe major depression with psychotic features F32.3 [facility] [address] [address] Dec, Type 2 diabetes mellitus with diabetic polyneuropathy E11.42 ; Chronic pain syndrome G89.4 and Acute right-sided low back pain with right-sided sciatica M54.41 [facility] [address] [place] [address] Dec, [facility] [address] [place] [address] Dec, [facility] [address] [place] [address] Nov, [facility] [address], [place] [address] Nov, [facility] [id number] [place] [address] Nov, [facility] [address] [place] [address] Oct, [facility] [address] [place] [address] Oct, [facility] [address] [place] [address] Sep, Dental examination Z01.20 [facility] [address] [place] [address] Sep, [facility] [address] [place] [address] Sep, Type 2 diabetes mellitus with diabetic polyneuropathy E11.42 ; Chronic pain syndrome G89.4 ; Chronic prescription opiate use Z79.891 ; Injury of right index finger, sequela S69.91XS and Anejaculation N50.8 [facility] [address] [place] [address] Aug, [facility] [address], [place] [address] Aug, [facility] [address] [place] [address] Aug, Cellulitis of finger of right hand L03.011 [facility] [address] [place] [address] July, [facility] [address] [place] [address] July, [facility] [address] [place] [address] Jun, Onychomycosis B35.1 [facility] [address] [place] [address] Jun, Severe major depression with psychotic features F32.3 and Posttraumatic stress disorder F43.10 [facility] [address] [place] [address] Jun, [facility] [address] [place] [address] Jun, [facility] [address] [place] [address] Jun, [facility] [address] [place] [address] May, Type 2 diabetes mellitus with diabetic polyneuropathy E11.42 [facility] [address] [place] [address] May, Type 2 diabetes mellitus with diabetic polyneuropathy E11.42 and Urinary hesitancy R39.11 [facility] [address] [place] [address] May, Type 2 diabetes mellitus with diabetic polyneuropathy E11.42 ; Left hip pain M25.552 and Benign prostatic hyperplasia with lower urinary tract symptoms, unspecified morphology N40.1 [facility] [address] [place] [address] May, [facility] [address] [place] [address] Apr, Severe major depression with psychotic features F32.3 and Posttraumatic stress disorder F43.10 [facility] [address] [place] [address] Apr, [facility] [address] [place] [address] Mar, [facility] [id number] [place] [address] Mar, Dysuria R30.0 and Urinary hesitancy R39.11 [facility] [id number] [place] [address] Mar, Onychomycosis B35.1 [facility] [id number] [place] [address] Mar, [facility] [id number] [place] [address] Feb, [facility] [id number] [place] [address] Jan, [facility] [id number] [place] [address] Jan, Posttraumatic stress disorder F43.10 and Severe major depression with psychotic features F32.3 [facility] [id number] [place] [address] Jan, [facility] [id number] [place] [address] Jan, Chronic pain syndrome G89.4 ; Type 2 diabetes mellitus with diabetic polyneuropathy E11.42 ; Decreased pedal pulses R09.89 and Paresthesia of both hands R20.2 [facility] [address] [place] [address] Dec, Posttraumatic stress disorder F43.10 and Severe major depression with psychotic features F32.3 [facility] [id number] [place] [address] Dec, [facility] [id number] [place] [address] Dec, [facility] [id number] [place] [address] Dec, Onychomycosis B35.1 [facility] [id number] [place] [address] Dec, [facility] [id number] [place] [address] Dec, [facility] [id number] [place] [address] Nov, [facility] [id number] [place] [id number] Oct, Depression, major, recurrent, moderate 296.32 and Posttraumatic stress disorder 309.[address] [place] [address] [place] [id number] [place] [phone] Oct, [place] [address] [place] [id number] [place] [phone] Oct, [place] [address] [place] [id number] [place] [phone] Oct, [place] [address] [place] [id number] [place] [address] Sep, Posttraumatic stress disorder 309.81 and Depression, major, recurrent, moderate 296.32 [place] [id number] [place] [address] Sep, [place] [address] [place] [id number] [place] [address] Sep, Chronic airway obstruction, not elsewhere classified 496 [place] [id number] [place] [address] Sep, Onychomycosis 110.1 and DM neuro manif type II 250.60 [place] [address] [place] [id number] [place] [address] Sep, Chronic pain 338.29 ; Chronic airway obstruction, not elsewhere classified 496 ; Osteoarthritis of knees, bilateral 715.96 and On potassium wasting diuretic therapy V58.69 [place] [address] [place] [id number] [place] [address] Sep, Insect bites 919.4 ; Sinusitis 473.9 and GERD (gastroesophageal reflux disease) 530.81 [facility] [id number] [place] [address] Aug, Depression, major, recurrent, moderate 296.32 and Posttraumatic stress disorder 309.81 [facility] [id number] [place] [address] Aug, [facility] [id number] [place] [address] Aug, [facility] [id number] [place] [address] Aug, [facility] [id number] [place] [address] July, Major depressive disorder, recurrent episode, moderate 296.32 and Posttraumatic stress disorder 309.81 [facility] [address] [address] July, [facility] [id number] [place] [address] July, [facility] [id number] [address] July, [facility] [id number] [place] [address] July, [facility] [id number] [place] [address] Jun, [facility] [id number] [place] [address] Jun, [facility] [id number] [place] [address] May, [facility] [address] [address] May, [facility] [place] [facility] [address] [id number] [place] [address] 18 May, 2014 [facility] [place] [facility] [address] [id number] [place] [address] May, 2014 [facility] [place] [facility] [address] [id number] [place] [address] May, 2014 [facility] [place] [facility] [address] [id number] [place] [address] May, 2014 [facility] [place] [facility] [address] [id number] [place] [address] May, 2014 [facility] [place] [facility] [address] [id number] [place] [address] May, [facility] [place] [facility] [address] [facility] [id number] [place] [address] May, [facility] [place] [facility] [address] [id number] [place] [address] Apr, 2014 [facility] [place] [facility] [address] [id number] [place] [address] Apr, 2014 [facility] [place] [facility] [address] [facility] [id number] [place] [address] Apr, 2014 [facility] [place] [facility] [address] [facility] [id number] [place] [address] Apr, 2014 [facility] [place] [facility] [address] [id number] [place] [address] Apr, 2014 [facility] [place] [facility] [address] [id number] [place] [address] Apr, 2014 [facility] [place] [facility] [address] [id number] [place] [address] Apr, [facility] [place] [facility] [address] [facility] [id number] [place] [address] Apr, 2014 [facility] [place] [facility] [address] [facility] [id number] [place] [address] 04 Apr, 2014 [facility] [place] [facility] [address] [id number] [place] [address] 30 Mar, 2014 [facility] [place] [facility] [address] [id number] [place] [address] 30 Mar, 2014 [facility] [place] [facility] [address] [id number] [place] [address] Mar, [facility] [place] [facility] [address] [id number] [place] [address] Mar, [facility] [place] [facility] [address] [id number] [place] [address] Mar, [facility] [place] [facility] [address] [id number] [place] [address] Mar, [facility] [place] [facility] [address] [id number] [place] [address] Mar, [facility] [place] [facility] [address] [id number] [place] [address] Mar, [facility] [place] [facility] [address] [id number] [place] [address] Mar, [facility] [place] [facility] [address] [id number] [place] [address] Mar, [facility] [place] [facility] [address] [id number] [place] [address] 14 Mar, 2014 [facility] [place] [facility] [address] [id number], [place] [address] 14 Mar, 2014 [facility] [place] [facility] [address] [id number] [place] [address] Mar, [facility] [place] [facility] [address] [id number] [place] [address] 14 Mar, 2014 [facility] [place] [facility] [address] [id number], [place] [address] 14 Mar, 2014 [facility] [place] [facility] [address] [id number] [place] [address] 14 Mar, 2014 [facility] [place] [facility] [address] [id number] [place] [address] Mar, [facility] [place] [facility] [address] [id number] [place] [address] Mar, [facility] [place] [facility] [address] [id number] [place] [address] 16 Feb, 2014 [facility] [place] [facility] [address] [id number] [place] [address] 16 Feb, 2014 [facility] [place] [facility] [address] [id number] [place] [address] 15 Feb, 2014 [facility] [place] [facility] [address] [id number] [place] [address] 15 Feb, 2014 [facility] [place] [facility] [address] [id number] [place] [address] 15 Feb, 2014 [facility] [place] [facility] [address] [id number] [place] [address] Feb, [facility] [place] [facility] [address] [id number] [place] [address] Jan, [facility] [place] [facility] [address] [id number] [place] [address] Jan, [facility] [place] [facility] [address] [id number] [place] [address] Jan, [facility] [place] [facility] [address] [id number] [place] [address] Jan, [facility] [place] [facility] [address] [id number] [place] [address] Jan, [facility] [place] [facility] [address] [id number] [place] [address] Jan, [facility] [place] [facility] [address] [id number] [place] [address] Jan, [facility] [place] [facility] [address] [id number] [place] [address] Jan, [facility] [place] [facility] [address] [id number] [place] [address] Jan, [facility] [place] [facility] [address] [id number] [place] [address] Jan, [facility] [place] [facility] [address] [id number] [place] [address] Dec, [facility] [place] [facility] [address] [id number] [place] [address] Dec, [facility] [place] [facility] [address] [id number] [place] [address] Dec, [facility] [place] [facility] [address] [id number] [place] [address] Dec, [facility] [place] [facility] [address] [id number] [place] [address] 16 Nov, 2013 [facility] [place] [facility] [address] [id number] [place] [address] 16 Nov, 2013 [facility] [place] [facility] [address] [id number] [place] [address] Nov, [facility] [place] [facility] [address] [id number], [place] [address] Nov, [facility] [place] [facility] [address] [id number], [place] [address] Nov, 2013 [facility] [place] [facility] [address] [id number] [place] [address] Nov, [facility] [place] [facility] [address] [id number] [place] [address] Oct, [facility] [place] [facility] [address] [id number] [place] [address] Oct, [facility] [place] [facility] [address] [id number] [place] [address] Oct, [facility] [address] [id number] [place] [address] Oct, [facility] [place] [facility] [address] [id number] [place] [address] Sep, [facility] [place] [facility] [address] [id number] [place] [address] Sep, [facility] [place] [facility] [address] [id number] [place] [address] Sep, [facility] [place] [facility] [address] [id number] [place] [address] Sep, [facility] [address] [id number] [place] [address] Sep, [facility] [address] [id number] [place] [address] Sep, [facility] [address] [id number] [place] [address] July, [facility] [place] [facility] [address] [id number] [place] [address] July, [facility] [address] [id number] [place] [address] July, [facility] [place] [facility] [address] [id number] [place] [address] July, [facility] [place] [facility] [address] [id number] [place] [address] Jun, [facility] [place] [facility] [address] [id number] [place] [address] Jun, [facility] [place] [facility] [address] [id number] [place] [address] Jun, [facility] [place] [facility] [address] [id number] [place] [address] Jun, [facility] [place] [facility] [address] [id number] [place] [address] Jun, [facility] [place] [facility] [address] [id number] [place] [address] Jun, [facility] [place] [facility] [address] [id number] [place] [address] May, [facility] [place] [facility] [address] [id number] [place] [address] May, [facility] [place] [facility] [address] [id number] [place] [address] Apr, [facility] [place] [facility] [address] [id number] [place] [address] Apr, [facility] [place] [facility] [address] [facility] [id number] [place] [address] Apr, [facility] [place] [facility] [address] [id number] [place] [address] Apr, [facility] [place] [facility] [address] [id number] [place] [address] Apr, [facility] [place] [facility] [address] [facility] [id number] [place] [address] Apr, [facility] [place] [facility] [address] [id number], [place] [address] Apr, [facility] [place] [facility] [address] [id number], [place] [address] Mar, [facility] [place] [facility] [address] [id number] [place] [address] Mar, [facility] [place] [facility] [address] [id number], [place] [address] Mar, [facility] [place] [facility] [address] [facility] [id number] [place] [address] Mar, [facility] [place] [facility] [address] [id number] [place] [address] Mar, [facility] [address] [id number] [place] [address] Mar, [facility] [place] [facility] [address] [id number] [place] [address] Mar, [facility] [address] [id number] [place] [address] Mar, [facility] [place] [facility] [address] [id number] [place] [address] Feb, [facility] [address] [id number] [place] [address] Feb, [facility] [place] [facility] [address] [id number] [place] [address] Feb, [facility] [address] [id number] [place] [address] Feb, [facility] [place] [facility] [address] [id number] [place] [address] Feb, [facility] [place] [facility] [address] [id number] [place] [address] Feb, [facility] [place] [facility] [address] [id number] [place] [address] Feb, [facility] [place] [facility] [address] [id number] [place] [address] Jan, [facility] [place] [facility] [address] [id number] [place] [address] Jan, [facility] [place] [facility] [address] [id number] [place] [address] Jan, [facility] [place] [facility] [address] [id number] [place] [address] Jan, [facility] [place] [facility] [address] [id number] [place] [address] Jan, [facility] [place] [facility] [address] [id number] [place] [address] Jan, [facility] [place] [facility] [address] [address] [id number] [place] [id number] Jan, [facility] [place] [facility] [address] [id number] [place] [id number] Jan, [facility] [place] [facility] [address] [id number] [place] [address] Dec, [facility] [place] [facility] [address] [id number] [place] [address] Dec, [facility] [place] [facility] [address] [id number] [place] [address] Dec, [facility] [place] [facility] [address] [id number] [place] [address] Dec, [facility] [place] [facility] [address] [id number] [place] [address] Dec, [facility] [place] [facility] [address] [id number] [place] [address] Dec, [facility] [place] [facility] [address] [id number] [place] [address] Dec, [facility] [place] [facility] [address] [id number] [place] [address] Dec, [facility] [place] [facility] [address] [id number], [place] [address] Dec, [facility] [place] [facility] [address] [id number] [place] [address] Dec, [facility] [place] [facility] [address] [id number] [place] [id number] Nov, [facility] [place] [facility] [address] [id number] [place] [address] Nov, [facility] [place] [facility] [address] [id number] [place] [address] 24 Nov, 2012 [facility] [place] [facility] [address] [id number] [place] [address] 20 Nov, 2012 [facility] [place] [facility] [address] [id number] [place] [address] Nov, [facility] [place] [facility] [address] [id number] [place] [address] Nov, [facility] [place] [facility] [address] [id number] [place] [address] 10 Nov, 2012 [facility] [place] [facility] [address] [id number] [place] [address] Nov, [facility] [place] [facility] [address] [id number] [place] [address] Oct, [facility] [place] [facility] [address] [id number] [place] [address] Oct, [facility] [place] [facility] [address] [id number] [place] [address] Oct, [facility] [place] [facility] [address] [id number] [place] [address] Sep, [facility] [place] [facility] [address] [id number] [place] [address] Sep, [facility] [place] [facility] [address] [id number] [place] [address] Sep, [facility] [place] [facility] [address] [id number] [place] [address] Sep, [facility] [place] [facility] [address] [id number] [place] [address] Sep, [facility] [place] [facility] [address] [id number] [place] [address] Aug, [facility] [place] [facility] [address] [id number] [place] [address] Aug, [facility] [place] [facility] [address] [id number] [place] [address] Aug, [facility] [address] [id number] [place] [address] Aug, [facility] [address] [id number] [place] [address] Aug, [facility] [address] [id number] [place] [address] Aug, [facility] [address] [id number] [place] [address] July, [facility] [address] [id number] [place] [address] July, [facility] [address] [id number] [place] [address] July, [facility] [address] [id number] [place] [address] July, [facility] [address] [id number] [place] [address] July, [facility] [address] [id number] [place] [address] July, [facility] [address] [id number] [place] [address] Jun, [facility] [address] [id number] [place] [address] Jun, [facility] [address] [id number] [place] [address] Jun, [facility] [address] [id number] [place] [address] Jun, [facility] [address] [id number] [place] [address] May, [facility] [address] [id number] [place] [address] May, [facility] [address] [id number] [place] [address] May, [facility] [address] [id number] [place] [address] Apr, [facility] [place] [facility] [address] [id number] [place] [address] Mar, [facility] [place] [facility] [address] [id number] [place] [address] 18 Mar, 2012 [facility] [place] [facility] [address] [id number] [place] [address] 17 Mar, 2012 [facility] [place] [facility] [address] [id number] [place] [address] 16 Mar, 2012 [facility] [address] [id number] [place] [address] 15 Mar, 2012 [facility] [address] [id number] [place] [address] Feb, [facility] [address] [id number] [place] [address] Feb, [facility] [address] [id number] [place] [address] Feb, [facility] [address] [id number] [place] [address] Feb, [facility] [address] [id number] [place] [address] Jan, [facility] [place] [facility] [address] [id number] [place] [address] Jan, [facility] [place] [facility] [address] [id number] [place] [address] Jan, [facility] [place] [facility] [address] [id number] [place] [address] Jan, [facility] [place] [facility] [address] [id number] [place] [address] Dec, [facility] [address] [id number] [place] [address] Dec, [facility] [address] [id number] [place] [address] Nov, [facility] [address] [id number] [place] [address] Oct, [facility] [address] [id number] [place] [address] Oct, [facility] [address] [id number] [place] [address] Oct, [facility] [address] [id number] [place] [address] Oct, [facility] [address] [id number] [place] [address] Oct, [facility] [address] [id number], [place] [address] Sep, [facility] [address] [id number], [place] [address] Sep, [facility] [address] [facility] [id number], [place] [address] Aug, [facility] [address] [place] [id number] Aug, [facility] [address] [id number], [place] [address] Aug, [facility] [address] [id number] [place] [address] July, [facility] [address] [id number] [place] [address] July, [facility] [address] [id number], [place] [address] Jun, [facility] [address] [id number], [place] [address] 23 Jun, 2011 [facility] [address] [id number] [place] [address] 16 Jun, 2011 [facility] [place] [facility] [address] [id number] [place] [address] 13 Jun, 2011 [facility] [place] [facility] [address] [id number] [place] [address] 15 Apr, 2011 [facility] [place] [facility] [address] [id number] [place] [address] 15 Apr, 2011 [facility] [address] [id number] [place] [address] 10 Apr, 2011 [facility] [place] [facility] [address] [id number] [place] [address] Mar, [facility] [address] [id number] [place] [address] Mar, [facility] [place] [facility] [address] [id number] [place] [address] Mar, [facility] [address] [id number] [place] [address] Mar, [facility] [address] [id number] [place] [address] Mar, [facility] [address] [id number] [place] [address] Jan, [facility] [place] [facility] [address] [id number] [place] [address] Jan, [facility] [place] [facility] [address] [id number] [place] [address] Jan, [facility] [place] [facility] [address] [id number] [place] [address] 17 Mar, 2010 [facility] [place] [facility] [address] [id number] [place] [address] Mar, [facility] [place] [facility] [address] [id number] [place] [address] 20 Feb, 2010 [facility] [place] [facility] [address] [id number] [place] [address] 16 Feb, 2010 [facility] [place] [facility] [address] [id number] [place] [address] 16 Feb, 2010 [facility] [place] [facility] [address] [id number] [place] [address] 17 Jan, 2010 [facility] [place] [facility] [address] [id number] [place] [address] 17 Jan, 2010 [facility] [place] [facility] [address] [id number] [place] [address] Dec, [facility] [place] [facility] [address] [id number] [place] [address] 19 Dec, 2009 [facility] [place] [facility] [address] [id number] [place] [address] 10 May, 2009 [facility] [place] [facility] [address] [id number] [place] [address] 10 Apr, 2009 [facility] [place] [facility] [address] [id number] [place] [address] 07 Feb, 2009 [facility] [place] [facility] [address] [id number] [place] [address] 03 Feb, 2009 [facility] [place] [facility] [address] [id number] [place] [address] 30 Jan, 2009 [facility] [place] [facility] [address] [id number] [place] [address] Jan, [facility] [place] [facility] [address] [id number] [place] [address] Jan, [facility] [place] [facility] [address] [id number] [place] [address] 11 Jan, 2009 [facility] [place] [facility] [address] [id number] [place] [address] Jan, IMMUNIZATIONS No Known Immunizations SOCIAL HISTORY Never Assessed REASON FOR VISIT EMR-[facility] [place] PLAN OF CARE VITAL SIGNS MEDICATIONS Unknown [...]
--- OUTSIDE RECORDS SUMMARY | 2018-10-04 06:25 | XMS REPORT ---
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 Name Role Phone Migration, Doctor Unavailable Unavailable PROBLEMS Type Condition ICD9-CM Code [id number] Code Onset Dates Condition Status SNOMED Code Problem Nocturnal hypoxia G47.34 Active 273056420 Problem Primary osteoarthritis of both knees M17.0 Active 552465674 Problem Type 2 diabetes mellitus with diabetic polyneuropathy E11.42 Active 741028934 Problem Pure hypercholesterolemia E78.0 Active 022739649 Problem Chronic pain syndrome G89.4 Active 777955457 Problem Chronic systolic (congestive) heart failure I50.22 Active 564298697 Problem Tobacco abuse Z72.0 Active 516424544 Problem Posttraumatic stress disorder F43.10 Active 31440434 Problem Non-ischemic cardiomyopathy I42.9 Active 75907437 Problem Gastroesophageal reflux disease, esophagitis presence not specified K21.9 Active 664142931 Problem History of weight loss surgery Z98.84 Active 964441810 Problem Chronic obstructive pulmonary disease, unspecified COPD type J44.9 Active 16343744 Problem Chronic prescription opiate use Z79.891 Active 164958251 Problem MITCHELL treated with BiPAP G47.33 Active 64392469 Problem Severe major depression with psychotic features F32.3 Active 88812707 Problem Acute right-sided low back pain with right-sided sciatica M54.41 Active 90356689 Problem Obesity, morbid, BMI 40.0-49.9 E66.01 Active 158758862 Problem Macrocytosis D75.89 Active 022876048 Problem BMI 45.0-49.9, adult Z68.42 Active 114007310 Problem Pure hypercholesterolemia E78.00 Active 978317447 Problem Essential hypertension I10 Active 71215641 Problem Obstructive sleep apnea syndrome G47.33 Active 68720876 Problem History of DVT (deep vein thrombosis) Z86.718 Active 008992825 Problem Major depressive disorder, recurrent episode, unspecified severity F33.9 Active 19097967 Problem Mild episode of recurrent major depressive disorder F33.0 Active 777034780 Problem Mood disorder F39 Active 70300535 Problem Primary insomnia F51.01 Active 4927630 Problem Chronic systolic congestive heart failure I50.22 Active 131015302 ALLERGIES No Information ENCOUNTERS Encounter Location Date Diagnosis [facility] [id number] [place] [phone] 04 Aug, 2018 [facility] [id number] [place] [address] July, [facility] [id number] [place] [address] Jun, Mass of shoulder region R22.30 [facility] [id number] [place] [address] 05 Jun, 2018 Chronic pain syndrome G89.4 [facility] [id number] [place] [address] 18 May, 2018 Type 2 diabetes mellitus with diabetic polyneuropathy E11.42 ; Mass of shoulder region R22.30 and Morbid obesity E66.01 [facility] [id number] [place] [address] 07 May, 2018 Chronic pain syndrome G89.4 [facility] [id number] [place] [address] 04 May, 2018 Mood disorder F39 ; Posttraumatic stress disorder F43.10 and Morbid obesity E66.01 [facility] [id number] [place] [address] 14 Apr, 2018 Major depressive disorder, recurrent episode, unspecified severity F33.9 [facility] [id number] [place] [address] 13 Apr, 2018 Major depressive disorder, recurrent episode, unspecified severity F33.9 [facility] [id number] [place] [address] 07 Apr, 2018 Chronic pain syndrome G89.4 [facility] [id number] [place] [address] 14 Mar, 2018 Pain in right foot M79.671 ; Type 2 diabetes mellitus with diabetic polyneuropathy E11.42 ; Chronic pain syndrome G89.4 and BMI 50.0-59.9, adult Z68.43 [facility] [id number] [place] [address] Mar, [facility] [address] [address] Mar, [facility] [address] [address] Mar, Chronic pain syndrome G89.4 [facility] [address] [address] Feb, Chronic pain syndrome G89.4 [facility] [address] [address] 30 Jan, 2018 Obstructive sleep apnea syndrome G47.33 [facility] [address] [address] 26 Jan, 2018 Type 2 diabetes mellitus with diabetic polyneuropathy E11.42 ; Chronic pain syndrome G89.4 ; Gastroesophageal reflux disease, esophagitis presence not specified K21.9 ; Essential hypertension I10 ; Pure hypercholesterolemia E78.00 ; Chronic prescription opiate use Z79.891 ; Obstructive sleep apnea syndrome G47.33 and BMI 50.0-59.9, adult Z68.43 [facility] [id number] [place] [address] 20 Jan, 2018 History of weight loss surgery Z98.84 [facility] [id number] [place] [address] 16 Jan, 2018 [facility] [address] [address] Jan, Chronic pain syndrome G89.4 [facility] [id number] [place] [address] Jan, [facility] [address] [place] [address] Jan, [facility] [id number] [place] [address] Dec, [facility] [address] [address] Dec, Chronic pain syndrome G89.4 [facility] [address] [address] Dec, Injury of left knee, subsequent encounter S89.92XD and Acute pain of left knee M25.562 [facility] [address] [address] Dec, [facility] [address] [address] Dec, Injury of left knee, initial encounter S89.92XA and BMI 45.0-49.9, adult Z68.42 [facility] [address] [address] Nov, Chest discomfort R07.89 ; Shortness of breath R06.02 ; Chronic systolic congestive heart failure I50.22 and Type 2 diabetes mellitus with diabetic polyneuropathy E11.42 [facility] [id number] [place] [address] Nov, Chronic pain syndrome G89.4 [facility] [address] [address] Oct, BMI 45.0-49.9, adult Z68.42 ; Type 2 diabetes mellitus with diabetic polyneuropathy E11.42 ; Chronic pain syndrome G89.4 ; Gastroesophageal reflux disease, esophagitis presence not specified K21.9 ; Decreased pedal pulses R09.89 and Precordial pain R07.2 [facility] [id number] [place] [address] Oct, [facility] [address] [address] Oct, Mood disorder F39 [facility] [address] [address] Oct, Mood disorder F39 ; Posttraumatic stress disorder F43.10 and BMI 45.0-49.9, adult Z68.42 [facility] [address] [address] Sep, Primary osteoarthritis of both knees M17.0 and Chronic pain syndrome G89.4 [facility] [address] [address] Sep, Mood disorder F39 and Posttraumatic stress disorder F43.10 [facility] [id number] [place] [address] Aug, Primary osteoarthritis of both knees M17.0 and Chronic pain syndrome G89.4 [facility] [id number] [place] [address] July, Primary osteoarthritis of both knees M17.0 and Chronic pain syndrome G89.4 [facility] [address] [address] July, Type 2 diabetes mellitus with diabetic polyneuropathy E11.42 ; Essential hypertension I10 ; Pure hypercholesterolemia E78.0 ; Chronic prescription opiate use Z79.891 ; Tobacco abuse Z72.0 ; Primary osteoarthritis of both knees M17.0 ; Primary insomnia F51.01 and BMI 45.0-49.9, adult Z68.42 [facility] [address] [address] July, Medicare annual wellness visit, initial Z00.00 [...] specified K21.9 and Encounter for immunization Z23 [facility] [id number] [place] [address] July, Primary osteoarthritis of both knees M17.0 and Chronic pain syndrome G89.4 [facility] [id number] [place] [address] Jun, Infection of right ear H66.91 ; Wheezing on auscultation R06.2 and BMI 45.0-49.9, adult Z68.42 [facility] [id number] [place] [address] Jun, [facility] [address] [address] Jun, Primary osteoarthritis of both knees M17.0 and Chronic pain syndrome G89.4 [facility] [id number] [place] [address] May, [facility] [id number] [place] [address] May, BMI 45.0-49.9, adult Z68.42 ; Mood disorder F39 and Posttraumatic stress disorder F43.10 [facility] [id number] [place] [address] May, [facility] [id number] [place] [address] May, Primary osteoarthritis of both knees M17.0 and Chronic pain syndrome G89.4 [facility] [id number] [place] [address] May, Mood disorder F39 [facility] [address] [address] Apr, Type 2 diabetes mellitus with diabetic polyneuropathy E11.42 [facility] [id number] [place] [address] Apr, [facility] [address], [place] [address] Apr, Primary osteoarthritis of both knees M17.0 and Chronic pain syndrome G89.4 [facility] [address], [place] [address] Apr, Mood disorder F39 [facility] [address], [place] [address] Mar, Mood disorder F39 and Posttraumatic stress disorder F43.10 [facility] [address] [place] [address] Mar, Primary osteoarthritis of both knees M17.0 and Chronic pain syndrome G89.4 [facility] [id number] [place] [address] Feb, Primary osteoarthritis of both knees M17.0 and Chronic pain syndrome G89.4 [facility] [address] [place] [address] Feb, Mood disorder F39 [facility] [id number] [place] [address] Jan, Type 2 diabetes mellitus with diabetic polyneuropathy E11.42 ; Primary osteoarthritis of both knees M17.0 ; Mood disorder F39 ; Obesity, morbid, BMI 40.0-49.9 E66.01 ; Chronic prescription opiate use Z79.891 ; Acute suppurative otitis media of both ears without spontaneous rupture of tympanic membranes, recurrence not specified H66.003 and BMI 45.0-49.9, adult Z68.42 [facility] [address], [place] [address] Jan, Primary osteoarthritis of both knees M17.0 and Chronic pain syndrome G89.4 [facility] [address], [place] [address] Dec, Mood disorder F39 and Posttraumatic stress disorder F43.10 [facility] [id number] [place] [address] 13 Dec, 2016 Primary osteoarthritis of both knees M17.0 and Chronic pain syndrome G89.4 [facility] [id number] [place] [address] 18 Nov, 2016 Chronic pain syndrome G89.4 [facility] [address] [address] 15 Nov, 2016 Primary osteoarthritis of both knees M17.0 and Chronic pain syndrome G89.4 [facility] [id number] [place] [address] 13 Nov, 2016 Type 2 diabetes mellitus with diabetic polyneuropathy E11.42 and Chronic pain syndrome G89.4 [facility] [id number] [place] [address] 12 Nov, 2016 Posttraumatic stress disorder F43.10 and Mood disorder F39 [facility] [id number] [place] [address] Oct, Chronic pain syndrome G89.4 [facility] [id number] [place] [address] Oct, Type 2 diabetes mellitus with diabetic polyneuropathy E11.42 ; BMI 45.0-49.9, adult Z68.42 ; Primary osteoarthritis of both knees M17.0 and Skin lesion L98.9 [facility] [address], [place] [address] Oct, Chronic pain syndrome G89.4 [facility] [address], [place] [address] Sep, Chronic pain syndrome G89.4 [facility] [address], [place] [address] Sep, [facility] [id number] [address] Sep, Chronic pain syndrome G89.4 [facility] [id number] [place] [address] Aug, Chronic pain syndrome G89.4 [facility] [address], [place] [address] Aug, [facility] [id number] [place] [address] Aug, Macrocytosis D75.89 and Pure hypercholesterolemia E78.0 [facility] [id number] [place] [address] Aug, Pure hypercholesterolemia E78.0 [facility] [id number] [place] [address] Aug, Macrocytosis D75.89 [facility] [id number] [place] [address] Aug, Pure hypercholesterolemia E78.0 ; Type 2 diabetes mellitus with diabetic polyneuropathy E11.42 ; MITCHELL treated with BiPAP G47.33 and Chronic pain syndrome G89.4 [facility] [id number] [place] [address] Aug, [facility] [id number] [place] [address] Aug, Hemorrhoids, unspecified hemorrhoid type K64.9 [facility] [id number] [place] [address] Aug, Chronic pain syndrome G89.4 ; Type 2 diabetes mellitus with diabetic polyneuropathy E11.42 ; Hemorrhoids, unspecified hemorrhoid type K64.9 ; Tobacco abuse Z72.0 and Primary osteoarthritis of both knees M17.0 [facility] [id number] [place] [address] July, Chronic pain syndrome G89.4 [facility] [id number] [place] [address] July, [facility] [id number] [place] [address] Jun, Chronic pain syndrome G89.4 [facility] [id number] [place] [address] Jun, Chronic pain syndrome G89.4 [facility] [id number] [place] [address] Jun, Severe major depression with psychotic features F32.3 and Posttraumatic stress disorder F43.10 [facility] [id number] [place] [address] Jun, Chronic pain syndrome G89.4 [facility] [id number] [place] [address] Jun, [facility] [id number] [place] [address] May, Chronic pain syndrome G89.4 [facility] [id number] [place] [address] May, Tobacco abuse Z72.0 [facility] [id number] [place] [address] May, [facility] [id number] [place] [address] Apr, Chronic pain syndrome G89.4 [facility] [id number] [place] [address] Apr, [facility] [id number] [place] [address] Apr, Right foot pain M79.671 [facility] [id number] [place] [address] Mar, Type 2 diabetes mellitus with diabetic polyneuropathy E11.42 ; MITCHELL treated with BiPAP G47.33 ; Pure hypercholesterolemia E78.0 ; Chronic pain syndrome G89.4 ; Tobacco abuse Z72.0 and Obesity, morbid, BMI 40.0-49.9 E66.01 [facility] [id number] [place] [address] Mar, [facility] [address], [place] [address] Mar, [facility] [address], [place] [address] Mar, [facility] [address], [place] [address] Mar, [facility] [id number] [place] [address] Mar, [facility] [address] [place] [address] Mar, Severe major depression with psychotic features F32.3 and Posttraumatic stress disorder F43.10 [facility] [address], [place] [address] Mar, [facility] [id number] [place] [address] Feb, [facility] [address], [place] [address] Feb, [facility] [id number] [place] [address] Jan, [facility] [address], [place] [address] Jan, [facility] [address], [place] [address] Dec, Posttraumatic stress disorder F43.10 and Severe major depression with psychotic features F32.3 [facility] [address], [place] [address] Dec, Type 2 diabetes mellitus with diabetic polyneuropathy E11.42 ; Chronic pain syndrome G89.4 and Acute right-sided low back pain with right-sided sciatica M54.41 [facility] [address], [place] [address] Dec, [facility] [address], [place] [address] Dec, [facility] [address], [place] [address] Nov, [facility] [address], [place] [address] Nov, [facility] [id number] [place] [address] Nov, [facility] [id number] [place] [address] Oct, [facility] [id number] [place] [address] Oct, [facility] [id number] [place] [address] Sep, Dental examination Z01.20 [facility] [id number] [place] [address] Sep, [facility] [address] [place] [address] Sep, Type 2 diabetes mellitus with diabetic polyneuropathy E11.42 ; Chronic pain syndrome G89.4 ; Chronic prescription opiate use Z79.891 ; Injury of right index finger, sequela S69.91XS and Anejaculation N50.8 [facility] [address], [place] [address] Aug, [facility] [address], [place] [address] Aug, [facility] [id number] [place] [address] Aug, Cellulitis of finger of right hand L03.011 [facility] [address], [place] [address] July, [facility] [address] [address] July, [facility] [address], [place] [address] Jun, Onychomycosis B35.1 [facility] [address], [place] [address] Jun, Severe major depression with psychotic features F32.3 and Posttraumatic stress disorder F43.10 [facility] [address], [place] [address] Jun, [facility] [id number] [place] [address] Jun, [facility] [address], [place] [address] Jun, [facility] [id number] [place] [address] May, Type 2 diabetes mellitus with diabetic polyneuropathy E11.42 [facility] [address], [place] [address] May, Type 2 diabetes mellitus with diabetic polyneuropathy E11.42 and Urinary hesitancy R39.11 [facility] [address], [place] [address] May, Type 2 diabetes mellitus with diabetic polyneuropathy E11.42 ; Left hip pain M25.552 and Benign prostatic hyperplasia with lower urinary tract symptoms, unspecified morphology N40.1 [facility] [address], [place] [address] May, [facility] [address] [address] Apr, Severe major depression with psychotic features F32.3 and Posttraumatic stress disorder F43.10 [facility] [address], [place] [address] Apr, [facility] [id number] [place] [address] Mar, [facility] [id number] [place] [address] Mar, Dysuria R30.0 and Urinary hesitancy R39.11 [facility] [id number] [place] [address] Mar, Onychomycosis B35.1 [facility] [id number] [place] [address] Mar, [facility] [id number] [place] [address] Feb, [facility] [id number] [place] [address] Jan, [facility] [id number] [place] [address] Jan, Posttraumatic stress disorder F43.10 and Severe major depression with psychotic features F32.3 [facility] [id number] [place] [phone] Jan, [facility] [id number] [place] [phone] Jan, Chronic pain syndrome G89.4 ; Type 2 diabetes mellitus with diabetic polyneuropathy E11.42 ; Decreased pedal pulses R09.89 and Paresthesia of both hands R20.2 [facility] [id number] [place] [phone] Dec, Posttraumatic stress disorder F43.10 and Severe major depression with psychotic features F32.3 [facility] [id number] [place] [phone] Dec, [facility] [id number] [place] [phone] Dec, [facility] [id number] [place] [phone] Dec, Onychomycosis B35.1 [facility] [id number] [place] [phone] Dec, [facility] [id number] [place] [phone] Dec, [facility] [id number] [place] [phone] Nov, [facility] [id number] [place] [address] Oct, Depression, major, recurrent, moderate 296.32 and Posttraumatic stress disorder 309.81 [place] [id number] [place] [address] Oct, [place] [id number] [place] [address] Oct, [place] [id number] [place] [address] Oct, [place] [id number] [place] [address] Sep, Posttraumatic stress disorder 309.81 and Depression, major, recurrent, moderate 296.32 [place] [id number] [place] [address] Sep, [place] [id number] [place] [address] Sep, Chronic airway obstruction, not elsewhere classified 496 [place] [id number] [place] [address] Sep, Onychomycosis 110.1 and DM neuro manif type II 250.60 [place] [id number] [place] [address] Sep, Chronic pain 338.29 ; Chronic airway obstruction, not elsewhere classified 496 ; Osteoarthritis of knees, bilateral 715.96 and On potassium wasting diuretic therapy V58.69 [place] [id number] [place] [address] Sep, Insect bites 919.4 ; Sinusitis 473.9 and GERD (gastroesophageal reflux disease) 530.81 [facility] [id number] [place] [address] Aug, Depression, major, recurrent, moderate 296.32 and Posttraumatic stress disorder 309.81 [facility] [id number] [place] [address] Aug, [facility] [id number] [place] [address] Aug, [facility] [id number] [place] [address] Aug, [facility] [id number] [place] [address] July, Major depressive disorder, recurrent episode, moderate 296.32 and Posttraumatic stress disorder 309.81 [facility] [id number] [address] July, [facility] [id number] [place] [address] July, [facility] [id number] [address] July, [facility] [id number] [place] [address] July, [facility] [id number] [place] [address] Jun, [facility] [id number] [place] [address] Jun, [facility] [id number] [place] [address] May, [facility] [id number] [address] May, [facility] [place] [facility] [address] [id number] [place] [address] 18 May, 2014 [facility] [place] [facility] [address] [id number] [place] [address] May, 2014 [facility] [place] [facility] [address] [id number] [place] [address] May, 2014 [facility] [place] [facility] [address] [id number] [place] [address] May, 2014 [facility] [place] [facility] [address] [id number] [place] [address] May, 2014 [facility] [place] [facility] [address] [id number] [place] [address] May, [facility] [place] [facility] [address] [facility] [id number] [place] [address] May, [facility] [place] [facility] [address] [id number] [place] [address] Apr, 2014 [facility] [place] [facility] [address] [id number] [place] [address] Apr, 2014 [facility] [place] [facility] [address] [facility] [id number] [place] [address] Apr, 2014 [facility] [place] [facility] [address] [facility] [id number] [place] [address] Apr, 2014 [facility] [place] [facility] [address] [id number] [place] [address] Apr, 2014 [facility] [place] [facility] [address] [id number] [place] [address] Apr, 2014 [facility] [place] [facility] [address] [id number] [place] [address] Apr, [facility] [place] [facility] [address] [facility] [id number] [place] [address] Apr, 2014 [facility] [place] [facility] [address] [facility] [id number] [place] [address] 04 Apr, 2014 [facility] [place] [facility] [address] [id number] [place] [address] 30 Mar, 2014 [facility] [place] [facility] [address] [id number] [place] [address] 30 Mar, 2014 [facility] [place] [facility] [address] [id number] [place] [address] Mar, [facility] [place] [facility] [address] [id number] [place] [address] Mar, [facility] [place] [facility] [address] [id number] [place] [address] Mar, [facility] [place] [facility] [address] [id number] [place] [address] Mar, [facility] [place] [facility] [address] [id number] [place] [address] Mar, [facility] [place] [facility] [address] [id number] [place] [address] Mar, [facility] [place] [facility] [address] [id number] [place] [address] Mar, [facility] [place] [facility] [address] [id number] [place] [address] Mar, [facility] [place] [facility] [address] [id number] [place] [address] 14 Mar, 2014 [facility] [place] [facility] [address] [id number], [place] [address] 14 Mar, 2014 [facility] [place] [facility] [address] [id number] [place] [address] Mar, [facility] [place] [facility] [address] [id number] [place] [address] 14 Mar, 2014 [facility] [place] [facility] [address] [id number], [place] [address] 14 Mar, 2014 [facility] [place] [facility] [address] [id number] [place] [address] 14 Mar, 2014 [facility] [place] [facility] [address] [id number] [place] [address] Mar, [facility] [place] [facility] [address] [id number] [place] [address] Mar, [facility] [place] [facility] [address] [id number] [place] [address] 16 Feb, 2014 [facility] [place] [facility] [address] [id number] [place] [address] 16 Feb, 2014 [facility] [place] [facility] [address] [id number] [place] [address] 15 Feb, 2014 [facility] [place] [facility] [address] [id number] [place] [address] 15 Feb, 2014 [facility] [place] [facility] [address] [id number] [place] [address] 15 Feb, 2014 [facility] [place] [facility] [address] [id number] [place] [address] Feb, [facility] [place] [facility] [address] [id number] [place] [address] Jan, [facility] [place] [facility] [address] [id number] [place] [address] Jan, [facility] [place] [facility] [address] [id number] [place] [address] Jan, [facility] [place] [facility] [address] [id number] [place] [address] Jan, [facility] [place] [facility] [address] [id number] [place] [address] Jan, [facility] [place] [facility] [address] [id number] [place] [address] Jan, [facility] [place] [facility] [address] [id number] [place] [address] Jan, [facility] [place] [facility] [address] [id number] [place] [address] Jan, [facility] [place] [facility] [address] [id number] [place] [address] Jan, [facility] [place] [facility] [address] [id number] [place] [address] Jan, [facility] [place] [facility] [address] [id number] [place] [address] Dec, [facility] [place] [facility] [address] [id number] [place] [address] Dec, [facility] [place] [facility] [address] [id number] [place] [address] Dec, [facility] [place] [facility] [address] [id number] [place] [address] Dec, [facility] [place] [facility] [address] [id number] [place] [address] 16 Nov, 2013 [facility] [place] [facility] [address] [id number] [place] [address] 16 Nov, 2013 [facility] [place] [facility] [address] [id number] [place] [address] Nov, [facility] [place] [facility] [address] [id number], [place] [address] Nov, [facility] [place] [facility] [address] [id number], [place] [address] Nov, 2013 [facility] [place] [facility] [address] [id number] [place] [address] Nov, [facility] [place] [facility] [address] [id number] [place] [address] Oct, [facility] [place] [facility] [address] [id number] [place] [address] Oct, [facility] [place] [facility] [address] [id number] [place] [address] Oct, [facility] [address] [id number] [place] [address] Oct, [facility] [place] [facility] [address] [id number] [place] [address] Sep, [facility] [place] [facility] [address] [id number] [place] [address] Sep, [facility] [place] [facility] [address] [id number] [place] [address] Sep, [facility] [place] [facility] [address] [id number] [place] [address] Sep, [facility] [address] [id number] [place] [address] Sep, [facility] [address] [id number] [place] [address] Sep, [facility] [address] [id number] [place] [address] July, [facility] [place] [facility] [address] [id number] [place] [address] July, [facility] [address] [id number] [place] [address] July, [facility] [place] [facility] [address] [id number] [place] [address] July, [facility] [place] [facility] [address] [id number] [place] [address] Jun, [facility] [place] [facility] [address] [id number] [place] [address] Jun, [facility] [place] [facility] [address] [id number] [place] [address] Jun, [facility] [place] [facility] [address] [id number] [place] [address] Jun, [facility] [place] [facility] [address] [id number] [place] [address] Jun, [facility] [place] [facility] [address] [id number] [place] [address] Jun, [facility] [place] [facility] [address] [id number] [place] [address] May, [facility] [place] [facility] [address] [id number] [place] [address] May, [facility] [place] [facility] [address] [id number] [place] [address] Apr, [facility] [place] [facility] [address] [id number] [place] [address] Apr, [facility] [place] [facility] [address] [facility] [id number] [place] [address] Apr, [facility] [place] [facility] [address] [id number] [place] [address] Apr, [facility] [place] [facility] [address] [id number] [place] [address] Apr, [facility] [place] [facility] [address] [facility] [id number] [place] [address] Apr, [facility] [place] [facility] [address] [id number], [place] [address] Apr, [facility] [place] [facility] [address] [id number], [place] [address] Mar, [facility] [place] [facility] [address] [id number] [place] [address] Mar, [facility] [place] [facility] [address] [id number], [place] [address] Mar, [facility] [place] [facility] [address] [facility] [id number] [place] [address] Mar, [facility] [place] [facility] [address] [id number] [place] [address] Mar, [facility] [address] [id number] [place] [address] Mar, [facility] [place] [facility] [address] [id number] [place] [address] Mar, [facility] [address] [id number] [place] [address] Mar, [facility] [place] [facility] [address] [id number] [place] [address] Feb, [facility] [address] [id number] [place] [address] Feb, [facility] [place] [facility] [address] [id number] [place] [address] Feb, [facility] [address] [id number] [place] [address] Feb, [facility] [place] [facility] [address] [id number] [place] [address] Feb, [facility] [place] [facility] [address] [id number] [place] [address] Feb, [facility] [place] [facility] [address] [id number] [place] [address] Feb, [facility] [place] [facility] [address] [id number] [place] [address] Jan, [facility] [place] [facility] [address] [id number] [place] [address] Jan, [facility] [place] [facility] [address] [id number] [place] [address] Jan, [facility] [place] [facility] [address] [id number] [place] [address] Jan, [facility] [place] [facility] [address] [id number] [place] [address] Jan, [facility] [place] [facility] [address] [id number] [place] [address] Jan, [facility] [place] [facility] [address] [id number] [place] [id number] Jan, [facility] [place] [facility] [address] [id number] [place] [id number] Jan, [facility] [place] [facility] [address] [id number] [place] [address] Dec, [facility] [place] [facility] [address] [id number] [place] [address] Dec, [facility] [place] [facility] [address] [id number] [place] [address] Dec, [facility] [place] [facility] [address] [id number] [place] [address] Dec, [facility] [place] [facility] [address] [id number] [place] [address] Dec, [facility] [place] [facility] [address] [id number] [place] [address] Dec, [facility] [place] [facility] [address] [id number] [place] [address] Dec, [facility] [place] [facility] [address] [id number] [place] [address] Dec, [facility] [place] [facility] [address] [id number], [place] [address] Dec, [facility] [place] [facility] [address] [id number] [place] [address] Dec, [facility] [place] [facility] [address] [id number] [place] [id number] Nov, [facility] [place] [facility] [address] [id number] [place] [id number] Nov, [facility] [place] [facility] [address] [id number] [place] [address] 24 Nov, 2012 [facility] [place] [facility] [address] [id number] [place] [address] 20 Nov, 2012 [facility] [place] [facility] [address] [id number] [place] [address] Nov, [facility] [place] [facility] [address] [id number] [place] [address] Nov, [facility] [place] [facility] [address] [id number] [place] [address] 10 Nov, 2012 [facility] [place] [facility] [address] [id number] [place] [address] Nov, [facility] [place] [facility] [address] [id number] [place] [address] Oct, [facility] [place] [facility] [address] [id number] [place] [address] Oct, [facility] [place] [facility] [address] [id number] [place] [address] Oct, [facility] [place] [facility] [address] [id number] [place] [address] Sep, [facility] [place] [facility] [address] [id number] [place] [address] Sep, [facility] [place] [facility] [address] [id number] [place] [address] Sep, [facility] [place] [facility] [address] [id number] [place] [address] Sep, [facility] [place] [facility] [address] [id number] [place] [address] Sep, [facility] [place] [facility] [address] [id number] [place] [address] Aug, [facility] [place] [facility] [address] [id number] [place] [address] Aug, [facility] [place] [facility] [address] [id number] [place] [address] Aug, [facility] [address] [id number] [place] [address] Aug, [facility] [address] [id number] [place] [address] Aug, [facility] [address] [id number] [place] [address] Aug, [facility] [address] [id number] [place] [address] July, [facility] [address] [id number] [place] [address] July, [facility] [address] [id number] [place] [address] July, [facility] [address] [id number] [place] [address] July, [facility] [address] [id number] [place] [address] July, [facility] [address] [id number] [place] [address] July, [facility] [address] [id number] [place] [address] Jun, [facility] [address] [id number] [place] [address] Jun, [facility] [address] [id number] [place] [address] Jun, [facility] [address] [id number] [place] [address] Jun, [facility] [address] [id number] [place] [address] May, [facility] [address] [id number] [place] [address] May, [facility] [address] [id number] [place] [address] May, [facility] [address] [id number] [place] [address] Apr, [facility] [place] [facility] [address] [id number] [place] [address] Mar, [facility] [place] [facility] [address] [id number] [place] [address] 18 Mar, 2012 [facility] [place] [facility] [address] [id number] [place] [address] 17 Mar, 2012 [facility] [place] [facility] [address] [id number] [place] [address] 16 Mar, 2012 [facility] [address] [id number] [place] [address] 15 Mar, 2012 [facility] [address] [id number] [place] [address] Feb, [facility] [address] [id number] [place] [address] Feb, [facility] [address] [id number] [place] [address] Feb, [facility] [address] [id number] [place] [address] Feb, [facility] [address] [id number] [place] [address] Jan, [facility] [place] [facility] [address] [id number] [place] [address] Jan, [facility] [place] [facility] [address] [id number] [place] [address] Jan, [facility] [place] [facility] [address] [id number] [place] [address] Jan, [facility] [place] [facility] [address] [id number] [place] [address] Dec, [facility] [address] [id number] [place] [address] Dec, [facility] [address] [id number] [place] [address] Nov, [facility] [address] [id number] [place] [address] Oct, [facility] [address] [id number] [place] [address] Oct, [facility] [address] [id number] [place] [address] Oct, [facility] [address] [id number] [place] [address] Oct, [facility] [address] [id number] [place] [address] Oct, [facility] [address] [id number], [place] [address] Sep, [facility] [address] [id number], [place] [address] Sep, [facility] [address] [facility] [id number], [place] [address] Aug, [facility] [address] [place] [id number] Aug, [facility] [address] [id number], [place] [address] Aug, [facility] [address] [id number] [place] [address] July, [facility] [address] [id number] [place] [address] July, [facility] [address] [id number], [place] [address] Jun, [facility] [address] [id number], [place] [address] 23 Jun, 2011 [facility] [address] [id number] [place] [address] 16 Jun, 2011 [facility] [place] [facility] [address] [id number] [place] [address] 13 Jun, 2011 [facility] [place] [facility] [address] [id number] [place] [address] 15 Apr, 2011 [facility] [place] [facility] [address] [id number] [place] [address] 15 Apr, 2011 [facility] [address] [id number] [place] [address] 10 Apr, 2011 [facility] [place] [facility] [address] [id number] [place] [address] Mar, [facility] [address] [id number] [place] [address] Mar, [facility] [place] [facility] [address] [id number] [place] [address] Mar, [facility] [address] [id number] [place] [address] Mar, [facility] [address] [id number] [place] [address] Mar, [facility] [address] [id number] [place] [address] Jan, [facility] [place] [facility] [address] [id number] [place] [address] Jan, [facility] [place] [facility] [address] [id number] [place] [address] Jan, [facility] [place] [facility] [address] [id number] [place] [address] 17 Mar, 2010 [facility] [place] [facility] [address] [id number] [place] [address] Mar, [facility] [place] [facility] [address] [id number] [place] [address] 20 Feb, 2010 [facility] [place] [facility] [address] [id number] [place] [address] 16 Feb, 2010 [facility] [place] [facility] [address] [id number] [place] [address] 16 Feb, 2010 [facility] [place] [facility] [address] [id number] [place] [address] 17 Jan, 2010 [facility] [place] [facility] [address] [id number] [place] [address] 17 Jan, 2010 [facility] [place] [facility] [address] [id number] [place] [address] Dec, [facility] [place] [facility] [address] [id number] [place] [address] 19 Dec, 2009 [facility] [place] [facility] [address] [id number] [place] [address] 10 May, 2009 [facility] [place] [facility] [address] [id number] [place] [address] 10 Apr, 2009 [facility] [place] [facility] [address] [id number] [place] [address] 07 Feb, 2009 [facility] [place] [facility] [address] [id number] [place] [address] 03 Feb, 2009 [facility] [place] [facility] [address] [id number] [place] [address] 30 Jan, 2009 [facility] [place] [facility] [address] [id number] [place] [address] Jan, [facility] [place] [facility] [address] [id number] [place] [address] Jan, [facility] [place] [facility] [address] [id number] [place] [address] 11 Jan, 2009 [facility] [place] [facility] [address] [id number] [place] [address] Jan, IMMUNIZATIONS No Known Immunizations SOCIAL HISTORY Never Assessed REASON FOR VISIT EMR-[facility] PLAN OF CARE VITAL SIGNS MEDICATIONS Unknown [...]
--- OUTSIDE RECORDS SUMMARY | 2018-10-04 06:26 | XMS REPORT ---
Author Author FEDERICO BERMEO Organization [facility] Address [address] [place] [address] Care Team Providers Care Inspector Material Disposition Name Role Phone FEDERICO BERMEO Unavailable PROBLEMS Type Condition ICD9-CM Code UTD07-TW Code Onset Dates Condition Status SNOMED Code Problem Nocturnal hypoxia G47.34 Active 946979179 Problem Primary osteoarthritis of both knees M17.0 Active 180035322 Problem Type 2 diabetes mellitus with diabetic polyneuropathy E11.42 Active 133755714 Problem Pure hypercholesterolemia E78.0 Active 965789570 Problem Chronic pain syndrome G89.4 Active 958598615 Problem Chronic systolic (congestive) heart failure I50.22 Active 159806657 Problem Tobacco abuse Z72.0 Active 448780034 Problem Posttraumatic stress disorder F43.10 Active 48847801 Problem Non-ischemic cardiomyopathy I42.9 Active 61685407 Problem Gastroesophageal reflux disease, esophagitis presence not specified K21.9 Active 800642542 Problem History of weight loss surgery Z98.84 Active 868692759 Problem Chronic obstructive pulmonary disease, unspecified COPD type J44.9 Active 03825130 Problem Chronic prescription opiate use Z79.891 Active 682417824 Problem MITCHELL treated with BiPAP G47.33 Active 92361090 Problem Severe major depression with psychotic features F32.3 Active 00853596 Problem Acute right-sided low back pain with right-sided sciatica M54.41 Active 06370496 Problem Obesity, morbid, BMI 40.0-49.9 E66.01 Active 381416303 Problem Macrocytosis D75.89 Active 094434023 Problem BMI 45.0-49.9, adult Z68.42 Active 988705837 Problem Pure hypercholesterolemia E78.00 Active 936252720 Problem Essential hypertension I10 Active 26707843 Problem Obstructive sleep apnea syndrome G47.33 Active 15620502 Problem History of DVT (deep vein thrombosis) Z86.718 Active 907196618 Problem Major depressive disorder, recurrent episode, unspecified severity F33.9 Active 49337350 Problem Mild episode of recurrent major depressive disorder F33.0 Active 524538516 Problem Mood disorder F39 Active 55828493 Problem Primary insomnia F51.01 Active 0075173 Problem Chronic systolic congestive heart failure I50.22 Active 316562797 ALLERGIES Substance Reaction Event Type Date Status Trintellix nausea vomiting, diarrhea Drug Allergy May, Active Chantix nausea Drug Allergy May, Active ENCOUNTERS Encounter Location Date Diagnosis [facility] [id number] [place] [address] Aug, [facility] [id number] [place] [address] Jun, Mass of shoulder region R22.30 [facility] [id number] [place] [address] Jun, Chronic pain syndrome G89.4 [facility] [id number] [place] [address] May, Type 2 diabetes mellitus with diabetic polyneuropathy E11.42 ; Mass of shoulder region R22.30 and Morbid obesity E66.01 [facility] [id number] [place] [address] May, Chronic pain syndrome G89.4 [facility] [id number] [place] [address] May, Mood disorder F39 ; Posttraumatic stress disorder F43.10 and Morbid obesity E66.01 [facility] [id number] [place] [address] 14 Apr, 2018 Major depressive disorder, recurrent episode, unspecified severity F33.9 [facility] [id number] [place] [address] 13 Apr, 2018 Major depressive disorder, recurrent episode, unspecified severity F33.9 [facility] [id number] [place] [address] 07 Apr, 2018 Chronic pain syndrome G89.4 [facility] [address], [place] [address] 14 Mar, 2018 Pain in right foot M79.671 ; Type 2 diabetes mellitus with diabetic polyneuropathy E11.42 ; Chronic pain syndrome G89.4 and BMI 50.0-59.9, adult Z68.43 [facility] [id number] [place] [address] 11 Mar, 2018 [facility] [id number] [place] [address] Mar, [facility] [id number] [place] [address] Mar, Chronic pain syndrome G89.4 [facility] [id number] [place] [address] Feb, Chronic pain syndrome G89.4 [facility] [id number] [place] [address] 30 Jan, 2018 Obstructive sleep apnea syndrome G47.33 [facility] [id number] [place] [address] 26 Jan, 2018 Type 2 diabetes mellitus with diabetic polyneuropathy E11.42 ; Chronic pain syndrome G89.4 ; Gastroesophageal reflux disease, esophagitis presence not specified K21.9 ; Essential hypertension I10 ; Pure hypercholesterolemia E78.00 ; Chronic prescription opiate use Z79.891 ; Obstructive sleep apnea syndrome G47.33 and BMI 50.0-59.9, adult Z68.43 [facility] [address] [place] [address] Jan, History of weight loss surgery Z98.84 [facility] [id number] [place] [address] Jan, [facility] [id number] [place] [address] Jan, Chronic pain syndrome G89.4 [facility] [id number] [place] [address] Jan, [facility] [id number] [place] [address] Jan, [facility] [id number] [place] [address] Dec, [facility] [id number] [place] [address] Dec, Chronic pain syndrome G89.4 [facility] [id number] [place] [address] Dec, Injury of left knee, subsequent encounter S89.92XD and Acute pain of left knee M25.562 [facility] [id number] [place] [address] Dec, [facility] [id number] [place] [address] Dec, Injury of left knee, initial encounter S89.92XA and BMI 45.0-49.9, adult Z68.42 [facility] [id number] [place] [address] Nov, Chest discomfort R07.89 ; Shortness of breath R06.02 ; Chronic systolic congestive heart failure I50.22 and Type 2 diabetes mellitus with diabetic polyneuropathy E11.42 [facility] [address] [place] [address] Nov, Chronic pain syndrome G89.4 [facility] [id number] [place] [address] Oct, BMI 45.0-49.9, adult Z68.42 ; Type 2 diabetes mellitus with diabetic polyneuropathy E11.42 ; Chronic pain syndrome G89.4 ; Gastroesophageal reflux disease, esophagitis presence not specified K21.9 ; Decreased pedal pulses R09.89 and Precordial pain R07.2 [facility] [id number] [place] [address] Oct, [facility] [id number] [address] Oct, Mood disorder F39 [facility] [address] [place] [address] Oct, Mood disorder F39 ; Posttraumatic stress disorder F43.10 and BMI 45.0-49.9, adult Z68.42 [facility] [address] [place] [address] Sep, Primary osteoarthritis of both knees M17.0 and Chronic pain syndrome G89.4 [facility] [address] [place] [address] Sep, Mood disorder F39 and Posttraumatic stress disorder F43.10 [facility] [id number] [place] [address] Aug, Primary osteoarthritis of both knees M17.0 and Chronic pain syndrome G89.4 [facility] [address], [place] [address] July, Primary osteoarthritis of both knees M17.0 and Chronic pain syndrome G89.4 [facility] [address] [place] [address] July, Type 2 diabetes mellitus with diabetic polyneuropathy E11.42 ; Essential hypertension I10 ; Pure hypercholesterolemia E78.0 ; Chronic prescription opiate use Z79.891 ; Tobacco abuse Z72.0 ; Primary osteoarthritis of both knees M17.0 ; Primary insomnia F51.01 and BMI 45.0-49.9, adult Z68.42 [facility] [address], [place] [address] July, Medicare annual wellness visit, initial Z00.00 [...] Z23 [facility] [address] [address] July, Primary osteoarthritis of both knees M17.0 and Chronic pain syndrome G89.4 [facility] [address] [address] Jun, Infection of right ear H66.91 ; Wheezing on auscultation R06.2 and BMI 45.0-49.9, adult Z68.42 [facility] [address] [address] Jun, [facility] [address] [address] Jun, Primary osteoarthritis of both knees M17.0 and Chronic pain syndrome G89.4 [facility] [address] [address] May, [facility] [address] [address] May, BMI 45.0-49.9, adult Z68.42 ; Mood disorder F39 and Posttraumatic stress disorder F43.10 [facility] [address] [address] May, [facility] [address] [address] May, Primary osteoarthritis of both knees M17.0 and Chronic pain syndrome G89.4 [facility] [address] [address] May, Mood disorder F39 [facility] [id number] [place] [address] 07 Apr, 2017 Type 2 diabetes mellitus with diabetic polyneuropathy E11.42 [facility] [address] [address] Apr, [facility] [address] [place] [address] Apr, Primary osteoarthritis of both knees M17.0 and Chronic pain syndrome G89.4 [facility] [id number] [place] [address] Apr, Mood disorder F39 [facility] [id number] [place] [address] Mar, Mood disorder F39 and Posttraumatic stress disorder F43.10 [facility] [id number] [place] [address] Mar, Primary osteoarthritis of both knees M17.0 and Chronic pain syndrome G89.4 [facility] [id number] [place] [address] Feb, Primary osteoarthritis of both knees M17.0 and Chronic pain syndrome G89.4 [facility] [id number] [place] [address] Feb, Mood disorder F39 [facility] [id number] [place] [address] Jan, Type 2 diabetes mellitus with diabetic polyneuropathy E11.42 ; Primary osteoarthritis of both knees M17.0 ; Mood disorder F39 ; Obesity, morbid, BMI 40.0-49.9 E66.01 ; Chronic prescription opiate use Z79.891 ; Acute suppurative otitis media of both ears without spontaneous rupture of tympanic membranes, recurrence not specified H66.003 and BMI 45.0-49.9, adult Z68.42 [facility] [address] [place] [address] Jan, Primary osteoarthritis of both knees M17.0 and Chronic pain syndrome G89.4 [facility] [address] [place] [address] Dec, Mood disorder F39 and Posttraumatic stress disorder F43.10 [facility] [address], [place] [address] 13 Dec, 2016 Primary osteoarthritis of both knees M17.0 and Chronic pain syndrome G89.4 [facility] [address], [place] [address] 18 Nov, 2016 Chronic pain syndrome G89.4 [facility] [id number] [place] [address] 15 Nov, 2016 Primary osteoarthritis of both knees M17.0 and Chronic pain syndrome G89.4 [facility] [id number] [place] [address] 13 Nov, 2016 Type 2 diabetes mellitus with diabetic polyneuropathy E11.42 and Chronic pain syndrome G89.4 [facility] [id number] [place] [address] 12 Nov, 2016 Posttraumatic stress disorder F43.10 and Mood disorder F39 [facility] [id number] [place] [address] Oct, Chronic pain syndrome G89.4 [facility] [id number] [place] [address] Oct, Type 2 diabetes mellitus with diabetic polyneuropathy E11.42 ; BMI 45.0-49.9, adult Z68.42 ; Primary osteoarthritis of both knees M17.0 and Skin lesion L98.9 [facility] [address] [place] [address] Oct, Chronic pain syndrome G89.4 [facility] [address], [place] [address] Sep, Chronic pain syndrome G89.4 [facility] [id number] [place] [address] Sep, [facility] [id number] [place] [address] Sep, Chronic pain syndrome G89.4 [facility] [address], [place] [address] Aug, Chronic pain syndrome G89.4 [facility] [id number] [place] [address] Aug, [facility] [id number] [place] [address] Aug, Macrocytosis D75.89 and Pure hypercholesterolemia E78.0 [facility] [id number] [place] [address] Aug, Pure hypercholesterolemia E78.0 [facility] [id number] [place] [address] Aug, Macrocytosis D75.89 [facility] [id number] [place] [address] Aug, Pure hypercholesterolemia E78.0 ; Type 2 diabetes mellitus with diabetic polyneuropathy E11.42 ; MITCHELL treated with BiPAP G47.33 and Chronic pain syndrome G89.4 [facility] [id number] [place] [address] Aug, [facility] [id number] [place] [address] Aug, Hemorrhoids, unspecified hemorrhoid type K64.9 [facility] [id number] [place] [address] Aug, Chronic pain syndrome G89.4 ; Type 2 diabetes mellitus with diabetic polyneuropathy E11.42 ; Hemorrhoids, unspecified hemorrhoid type K64.9 ; Tobacco abuse Z72.0 and Primary osteoarthritis of both knees M17.0 [facility] [id number] [place] [address] July, Chronic pain syndrome G89.4 [facility] [id number] [place] [address] July, [facility] [address], [place] [address] Jun, Chronic pain syndrome G89.4 [facility] [id number] [place] [address] Jun, Chronic pain syndrome G89.4 [facility] [id number] [place] [address] Jun, Severe major depression with psychotic features F32.3 and Posttraumatic stress disorder F43.10 [facility] [id number] [place] [address] Jun, Chronic pain syndrome G89.4 [facility] [id number] [place] [address] Jun, [facility] [id number] [place] [address] May, Chronic pain syndrome G89.4 [facility] [id number] [place] [address] May, Tobacco abuse Z72.0 [facility] [id number] [place] [address] May, [facility] [id number] [place] [address] Apr, Chronic pain syndrome G89.4 [facility] [id number] [place] [address] Apr, [facility] [id number] [place] [address] Apr, Right foot pain M79.671 [facility] [id number] [place] [address] Mar, Type 2 diabetes mellitus with diabetic polyneuropathy E11.42 ; MITCHELL treated with BiPAP G47.33 ; Pure hypercholesterolemia E78.0 ; Chronic pain syndrome G89.4 ; Tobacco abuse Z72.0 and Obesity, morbid, BMI 40.0-49.9 E66.01 [facility] [address], [place] [address] Mar, [facility] [address], [place] [address] Mar, [facility] [address], [place] [address] Mar, [facility] [id number] [place] [address] Mar, [facility] [address], [place] [address] Mar, [facility] [id number] [place] [address] Mar, Severe major depression with psychotic features F32.3 and Posttraumatic stress disorder F43.10 [facility] [address], [place] [address] Mar, [facility] [address], [place] [address] Feb, [facility] [address], [place] [address] Feb, [facility] [address], [place] [address] Jan, [facility] [address], [place] [address] Jan, [facility] [address], [place] [address] Dec, Posttraumatic stress disorder F43.10 and Severe major depression with psychotic features F32.3 [facility] [address], [place] [address] Dec, Type 2 diabetes mellitus with diabetic polyneuropathy E11.42 ; Chronic pain syndrome G89.4 and Acute right-sided low back pain with right-sided sciatica M54.41 [facility] [address], [place] [address] Dec, [facility] [id number] [place] [address] Dec, [facility] [id number] [place] [address] Nov, [facility] [address] [address] Nov, [facility] [id number] [place] [address] Nov, [facility] [id number] [place] [address] Oct, [facility] [id number] [place] [address] Oct, [facility] [id number] [place] [address] Sep, Dental examination Z01.20 [facility] [id number] [place] [address] Sep, [facility] [id number] [place] [address] Sep, Type 2 diabetes mellitus with diabetic polyneuropathy E11.42 ; Chronic pain syndrome G89.4 ; Chronic prescription opiate use Z79.891 ; Injury of right index finger, sequela S69.91XS and Anejaculation N50.8 [facility] [address] [place] [address] Aug, [facility] [id number] [place] [address] Aug, [facility] [id number] [place] [address] Aug, Cellulitis of finger of right hand L03.011 [facility] [id number] [address] July, [facility] [address], [place] [address] July, [facility] [address], [place] [address] Jun, Onychomycosis B35.1 [facility] [id number] [place] [address] Jun, Severe major depression with psychotic features F32.3 and Posttraumatic stress disorder F43.10 [facility] [address], [place] [address] Jun, [facility] [id number] [place] [address] Jun, [facility] [id number] [place] [address] Jun, [facility] [id number] [place] [address] May, Type 2 diabetes mellitus with diabetic polyneuropathy E11.42 [facility] [id number] [place] [address] May, Type 2 diabetes mellitus with diabetic polyneuropathy E11.42 and Urinary hesitancy R39.11 [facility] [address], [place] [address] May, Type 2 diabetes mellitus with diabetic polyneuropathy E11.42 ; Left hip pain M25.552 and Benign prostatic hyperplasia with lower urinary tract symptoms, unspecified morphology N40.1 [facility] [address], [place] [address] May, [facility] [id number] [place] [address] Apr, Severe major depression with psychotic features F32.3 and Posttraumatic stress disorder F43.10 [facility] [id number] [address] 08 Apr, 2015 [facility] [id number] [place] [address] Mar, [facility] [id number] [place] [address] Mar, Dysuria R30.0 and Urinary hesitancy R39.11 [facility] [id number] [place] [address] Mar, Onychomycosis B35.1 [facility] [id number] [place] [address] Mar, [facility] [id number] [place] [address] Feb, [facility] [id number] [place] [address] Jan, [facility] [id number] [place] [address] Jan, Posttraumatic stress disorder F43.10 and Severe major depression with psychotic features F32.3 [facility] [id number] [place] [address] Jan, [facility] [id number] [place] [address] Jan, Chronic pain syndrome G89.4 ; Type 2 diabetes mellitus with diabetic polyneuropathy E11.42 ; Decreased pedal pulses R09.89 and Paresthesia of both hands R20.2 [facility] [id number] [place] [id number] Dec, Posttraumatic stress disorder F43.10 and Severe major depression with psychotic features F32.3 [facility] [id number] [place] [id number] Dec, [facility] [id number] [place] [phone] Dec, [facility] [id number] [address] Dec, Onychomycosis B35.1 [facility] [id number] [place] [id number] Dec, [facility] [id number] [address] Dec, [facility] [id number] [place] [id number] Nov, [facility] [address] [id number] [place] [address] Oct, Depression, major, recurrent, moderate 296.32 and Posttraumatic stress disorder 309.81 [facility] [id number] [place] [address] Oct, [facility] [id number] [place] [address] Oct, [facility] [id number] [place] [address] Oct, [facility] [id number] [place] [address] Sep, Posttraumatic stress disorder 309.81 and Depression, major, recurrent, moderate 296.32 [facility] [address] [address] Sep, [facility] [id number] [place] [address] Sep, Chronic airway obstruction, not elsewhere classified [id number] [place] [address] Sep, Onychomycosis 110.1 and DM neuro manif type II 250.60 [facility] [address] [address] Sep, Chronic pain 338.29 ; Chronic airway obstruction, not elsewhere classified 496 ; Osteoarthritis of knees, bilateral 715.96 and On potassium wasting diuretic therapy V58.69 [facility] [id number] [place] [address] Sep, Insect bites 919.4 ; Sinusitis 473.9 and GERD (gastroesophageal reflux disease) 530.81 [facility] [id number] [place] [address] Aug, Depression, major, recurrent, moderate 296.32 and Posttraumatic stress disorder 309.81 [facility] [id number] [place] [address] Aug, [facility] [id number] [place] [address] Aug, [facility] [id number] [place] [address] Aug, [facility] [id number] [place] [address] July, Major depressive disorder, recurrent episode, moderate 296.32 and Posttraumatic stress disorder 309.81 [facility] [id number] [place] [address] July, [facility] [id number] [place] [address] July, [facility] [id number] [place] [address] July, [facility] [id number] [place] [address] July, [facility] [id number] [place] [address] Jun, [facility] [id number] [place] [address] Jun, [facility] [id number] [address] May, [facility] [address] [id number] [address] 20 May, 2014 [facility] [place] [facility] [address] [id number] [place] [address] May, 2014 [facility] [place] [facility] [address] [id number] [place] [address] May, 2014 [facility] [place] [facility] [address] [id number] [place] [address] May, 2014 [facility] [place] [facility] [address] [id number] [place] [address] May, 2014 [facility] [place] [facility] [address] [id number] [place] [address] May, [facility] [place] [facility] [address] [facility] [id number] [place] [address] May, [facility] [place] [facility] [address] [facility] [id number] [place] [address] May, 2014 [facility] [place] [facility] [address] [facility] [id number] [place] [address] Apr, 2014 [facility] [place] [facility] [address] [facility] [id number] [place] [address] Apr, 2014 [facility] [place] [facility] [address] [facility] [id number] [place] [address] Apr, 2014 [facility] [place] [facility] [address] [facility] [id number] [place] [address] Apr, 2014 [facility] [place] [facility] [address] [facility] [id number] [place] [address] Apr, 2014 [facility] [place] [facility] [address] [facility] [id number] [place] [address] Apr, 2014 [facility] [place] [facility] [address] [facility] [id number] [place] [address] Apr, 2014 [facility] [place] [facility] [address] [facility] [id number], [place] [address] Apr, [facility] [place] [facility] [address] [id number] [place] [address] Apr, [facility] [place] [facility] [address] [id number] [place] [address] Mar, [facility] [place] [facility] [address] [id number] [place] [address] Mar, [facility] [place] [facility] [address] [id number] [place] [address] Mar, [facility] [place] [facility] [address] [id number] [place] [address] Mar, [facility] [place] [facility] [address] [id number] [place] [address] Mar, [facility] [place] [facility] [address] [id number] [place] [address] Mar, [facility] [place] [facility] [address] [id number] [place] [address] Mar, [facility] [place] [facility] [address] [id number] [place] [address] Mar, [facility] [place] [facility] [address] [id number] [place] [address] Mar, [facility] [place] [facility] [address] [id number], [place] [address] Mar, [facility] [place] [facility] [address] [id number], [place] [address] 14 Mar, 2014 [facility] [place] [facility] [address] [id number], [place] [address] Mar, [facility] [place] [facility] [address] [id number] [place] [address] Mar, [facility] [place] [facility] [address] [id number] [place] [address] Mar, [facility] [place] [facility] [address] [id number] [place] [address] 14 Mar, 2014 [facility] [place] [facility] [address] [id number] [place] [address] 14 Mar, 2014 [facility] [place] [facility] [address] [id number] [place] [address] 09 Mar, 2014 [facility] [place] [facility] [address] [id number] [place] [address] 09 Mar, 2014 [facility] [place] [facility] [address] [id number] [place] [address] 16 Feb, 2014 [facility] [place] [facility] [address] [id number] [place] [address] 16 Feb, 2014 [facility] [place] [facility] [address] [id number] [place] [address] 15 Feb, 2014 [facility] [place] [facility] [address] [id number] [place] [address] 15 Feb, 2014 [facility] [place] [facility] [address] [id number] [place] [address] 15 Feb, 2014 [facility] [place] [facility] [address] [id number] [place] [address] Feb, [facility] [place] [facility] [address] [id number] [place] [address] Jan, [facility] [place] [facility] [address] [id number] [place] [address] Jan, [facility] [place] [facility] [address] [id number] [place] [address] Jan, [facility] [place] [facility] [address] [id number] [place] [address] Jan, [facility] [place] [facility] [address] [id number] [place] [address] Jan, [facility] [place] [facility] [address] [id number] [place] [address] Jan, [facility] [place] [facility] [address] [id number] [place] [address] Jan, [facility] [place] [facility] [address] [id number] [place] [address] Jan, [facility] [place] [facility] [address] [id number] [place] [address] Jan, [facility] [place] [facility] [address] [id number] [place] [address] Jan, [facility] [place] [facility] [address] [id number] [place] [address] Dec, [facility] [place] [facility] [address] [id number] [place] [address] Dec, [facility] [place] [facility] [address] [id number] [place] [address] Dec, [facility] [place] [facility] [address] [id number] [place] [address] Dec, [facility] [place] [facility] [address] [id number] [place] [address] 16 Nov, 2013 [facility] [place] [facility] [address] [id number] [place] [address] 16 Nov, 2013 [facility] [place] [facility] [address] [id number], [place] [address] Nov, 2013 [facility] [place] [facility] [address] [id number], [place] [address] 03 Nov, 2013 [facility] [place] [facility] [address] [id number] [place] [address] Nov, [facility] [place] [facility] [address] [id number] [place] [address] Nov, 2013 [facility] [place] [facility] [address] [id number] [place] [address] Oct, [facility] [place] [facility] [address] [id number] [place] [address] Oct, [facility] [place] [facility] [address] [id number] [place] [address] Oct, [facility] [place] [facility] [address] [id number] [place] [address] Oct, [facility] [place] [facility] [address] [id number] [place] [address] Sep, [facility] [place] [facility] [address] [id number] [place] [address] Sep, [facility] [place] [facility] [address] [id number] [place] [address] Sep, [facility] [place] [facility] [address] [id number] [place] [address] Sep, [facility] [place] [facility] [address] [id number] [place] [address] Sep, [facility] [place] [facility] [address] [id number] [place] [address] Sep, [facility] [place] [facility] [address] [id number] [place] [address] July, [facility] [place] [facility] [address] [id number] [place] [address] July, [facility] [place] [facility] [address] [id number] [place] [address] July, [facility] [place] [facility] [address] [id number] [place] [address] July, [facility] [place] [facility] [address] [id number] [place] [address] Jun, [facility] [place] [facility] [address] [id number] [place] [address] Jun, [facility] [place] [facility] [address] [id number] [place] [address] Jun, [facility] [place] [facility] [address] [id number] [place] [address] Jun, [facility] [place] [facility] [address] [id number] [place] [address] Jun, [facility] [place] [facility] [address] [id number] [place] [address] Jun, [facility] [place] [facility] [address] [id number] [place] [address] May, [facility] [place] [facility] [address] [id number] [place] [address] May, [facility] [place] [facility] [address] [id number] [place] [address] Apr, [facility] [place] [facility] [address] [facility] [id number] [place] [address] Apr, [facility] [place] [facility] [address] [id number] [place] [address] Apr, [facility] [place] [facility] [address] [id number] [place] [address] Apr, [facility] [place] [facility] [address] [id number] [place] [address] Apr, [facility] [place] [facility] [address] [facility] [id number] [place] [address] Apr, [facility] [place] [facility] [address] [id number] [place] [address] Apr, [facility] [place] [facility] [address] [id number] [place] [address] Mar, [facility] [place] [facility] [address] [id number] [place] [address] Mar, [facility] [place] [facility] [address] [id number] [place] [address] Mar, [facility] [place] [facility] [address] [id number] [place] [address] Mar, [facility] [address] [id number] [place] [address] Mar, [facility] [place] [facility] [address] [id number] [place] [address] Mar, [facility] [address] [id number] [place] [address] Mar, [facility] [place] [facility] [address] [id number] [place] [address] Mar, [facility] [address] [id number] [place] [address] Feb, [facility] [place] [facility] [address] [id number] [place] [address] Feb, [facility] [address] [id number] [place] [address] Feb, [facility] [place] [facility] [address] [id number] [place] [address] Feb, [facility] [place] [facility] [address] [id number] [place] [address] Feb, [facility] [place] [facility] [address] [id number] [place] [address] Feb, [facility] [place] [facility] [address] [id number] [place] [address] Feb, [facility] [place] [facility] [address] [id number], [place] [address] Jan, [facility] [place] [facility] [address] [id number] [place] [address] Jan, [facility] [place] [facility] [address] [id number] [place] [address] Jan, [facility] [place] [facility] [address] [id number] [place] [address] Jan, [facility] [place] [facility] [address] [id number] [place] [address] Jan, [facility] [place] [facility] [address] [id number] [place] [address] Jan, [facility] [place] [facility] [address] [id number] [place] [id number] Jan, [facility] [place] [facility] [address] [id number] [place] [id number] Jan, [facility] [place] [facility] [address] [id number] [place] [address] Dec, 2012 [facility] [place] [facility] [address] [id number] [place] [address] Dec, [facility] [place] [facility] [address] [id number] [place] [address] Dec, [facility] [place] [facility] [address] [id number] [place] [address] Dec, [facility] [place] [facility] [address] [id number] [place] [address] Dec, [facility] [place] [facility] [address] [id number] [place] [address] Dec, [facility] [place] [facility] [address] [id number] [place] [address] Dec, [facility] [place] [facility] [address] [id number] [place] [address] Dec, [facility] [place] [facility] [address] [id number], [place] [address] Dec, [facility] [place] [facility] [address] [id number] [place] [address] Dec, [facility] [place] [facility] [address] [id number] [place] [id number] Nov, [facility] [place] [facility] [address] [id number] [id number] Nov, [facility] [place] [facility] [address] [id number] [place] [address] 24 Nov, 2012 [facility] [place] [facility] [address] [id number] [place] [address] 20 Nov, 2012 [facility] [place] [facility] [address] [id number] [place] [address] Nov, [facility] [place] [facility] [address] [id number] [place] [address] Nov, [facility] [address] [id number] [place] [address] 10 Nov, 2012 [facility] [place] [facility] [address] [id number] [place] [address] Nov, [facility] [address] [id number] [place] [address] Oct, [facility] [address] [id number] [place] [address] Oct, [facility] [place] [facility] [address] [id number] [place] [address] Oct, [facility] [place] [facility] [address] [id number] [place] [address] Sep, [facility] [place] [facility] [address] [id number] [place] [address] Sep, [facility] [place] [facility] [address] [id number] [place] [address] Sep, [facility] [place] [facility] [address] [id number] [place] [address] Sep, [facility] [place] [facility] [address] [id number] [place] [address] Sep, [facility] [place] [facility] [address] [id number] [place] [address] Aug, [facility] [place] [facility] [address] [id number] [place] [address] Aug, [facility] [address] [id number] [place] [address] Aug, [facility] [place] [facility] [address] [id number] [place] [address] Aug, [facility] [address] [id number] [place] [address] Aug, [facility] [place] [facility] [address] [id number] [place] [address] Aug, [facility] [address] [id number] [place] [address] July, [facility] [address] [id number] [place] [address] July, [facility] [address] [id number] [place] [address] July, [facility] [address] [id number] [place] [address] July, [facility] [address] [id number] [place] [address] July, [facility] [address] [id number] [place] [address] July, [facility] [address] [id number] [place] [address] Jun, [facility] [place] [facility] [address] [id number] [place] [address] Jun, [facility] [place] [facility] [address] [id number] [place] [address] Jun, [facility] [place] [facility] [address] [id number] [place] [address] Jun, [facility] [place] [facility] [address] [id number] [place] [address] May, [facility] [place] [facility] [address] [id number] [place] [address] 15 May, 2012 [facility] [address] [id number] [place] [address] 06 May, 2012 [facility] [address] [id number] [place] [address] 19 Apr, 2012 [facility] [address] [id number] [place] [address] Mar, [facility] [address] [id number] [place] [address] 18 Mar, 2012 [facility] [address] [id number] [place] [address] 17 Mar, 2012 [facility] [address] [id number] [place] [address] 16 Mar, 2012 [facility] [address] [id number] [place] [address] 15 Mar, 2012 [facility] [address] [id number] [place] [address] Feb, [facility] [address] [id number] [place] [address] Feb, [facility] [address] [id number] [place] [address] Feb, [facility] [address] [id number] [place] [address] Feb, [facility] [address] [id number] [place] [address] Jan, [facility] [address] [id number] [place] [address] Jan, [facility] [address] [id number] [place] [address] Jan, [facility] [address] [id number] [place] [address] Jan, [facility] [address] [id number] [place] [address] Dec, [facility] [address] [id number] [place] [address] Dec, [facility] [address] [id number] [place] [address] Nov, [facility] [address] [id number] [place] [address] Oct, [facility] [address] [id number] [place] [address] Oct, [facility] [address] [id number] [place] [address] Oct, [facility] [address] [id number] [place] [address] Oct, [facility] [address] [id number] [place] [address] Oct, [facility] [address] [id number] [place] [address] Sep, [facility] [address] [id number] [place] [address] Sep, [facility] [address] [id number] [place] [address] Aug, [facility] [address] [facility] [place] [id number] Aug, [facility] [address] [id number] [place] [address] Aug, [facility] [address] [id number] [place] [address] July, [facility] [address] [id number] [place] [address] July, [facility] [address] [id number] [place] [address] Jun, [facility] [address] [id number] [place] [address] 23 Jun, 2011 [facility] [place] [facility] [address] [id number] [place] [address] 16 Jun, 2011 [facility] [place] [facility] [address] [id number] [place] [address] Jun, [facility] [place] [facility] [address] [id number] [place] [address] 15 Apr, 2011 [facility] [place] [facility] [address] [id number] [place] [address] 15 Apr, 2011 [facility] [place] [facility] [address] [id number] [place] [address] 10 Apr, 2011 [facility] [address] [id number] [place] [address] Mar, [facility] [place] [facility] [address] [id number] [place] [address] Mar, [facility] [place] [facility] [address] [id number] [place] [address] Mar, [facility] [place] [facility] [address] [id number] [place] [address] Mar, [facility] [place] [facility] [address] [id number] [place] [address] Mar, [facility] [place] [facility] [address] [id number] [place] [address] Jan, [facility] [place] [facility] [address] [id number] [place] [address] Jan, [facility] [place] [facility] [address] [id number] [place] [address] Jan, [facility] [place] [facility] [address] [id number] [place] [address] Mar, [facility] [place] [facility] [address] [id number] [place] [address] 11 Mar, 2010 [facility] [address] [id number] [place] [address] 20 Feb, 2010 [facility] [place] [facility] [address] [id number] [place] [address] 16 Feb, 2010 [facility] [address] [id number] [place] [address] 16 Feb, 2010 [facility] [address] [id number] [place] [address] 17 Jan, 2010 [facility] [address] [id number] [place] [address] 17 Jan, 2010 [facility] [address] [id number] [place] [address] Dec, [facility] [address] [id number] [place] [address] Dec, [facility] [address] [id number] [place] [address] May, [facility] [address] [id number] [place] [address] 10 Apr, 2009 [facility] [address] [facility] [id number] [place] [address] Feb, [facility] [address] [id number] [place] [address] Feb, [facility] [address] [id number] [place] [address] 30 Jan, 2009 [facility] [place] [facility] [address] [id number] [place] [address] Jan, [facility] [place] [facility] [address] [id number] [place] [address] Jan, [facility] [place] [facility] [address] [id number] [place] [address] Jan, [facility] [address] [facility] [id number] [place] [address] Jan, IMMUNIZATIONS No Known Immunizations SOCIAL HISTORY Never Assessed REASON FOR VISIT f/u, AIMS and labs PLAN OF CARE Activity Details Follow Up 3 Months Reason: VITAL SIGNS Height 66 in 2018-05-15 Weight 314.0 lbs 2018-05-15 Heart Rate 78 bpm 2018-05-15 Respiratory Rate 20 2018-05-15 BMI 50.68 kg/m2 2018-05-15 Blood pressure systolic 135 mmHg 2018-05-15 Blood pressure diastolic 90 mmHg 2018-05-15 MEDICATIONS Medication Instructions Dosage Frequency Start Date End Date Duration Status Victoza 18 MG/3ML Subcutaneous Once a day 1.2 mg 24h Aug, 30 days Active Pantoprazole Sodium 40 MG TAKE ONE TABLET BY MOUTH ONCE DAILY 30 Active Cyclobenzaprine HCl 10 MG TAKE ONE TABLET BY MOUTH THREE TIMES DAILY NEEDED 10 Active Pataday 0.2 % Ophthalmic 2 times a day 1 drop to affected eyes 12h Mar, Active Hydrocodone-Acetaminophen 5-325 MG Orally every 6 hrs 1 tablet as needed 6h Apr, 28 days Active Carafate 1 GM Orally 4 times a day 1 tablet 6h Jan, 30 day(s) Active Ventolin HFA 108 (90 Base) MCG/ACT Inhalation every 4 hrs 2 puffs as needed 4h Mar, Active Lyrica 50 MG Orally Three times a day 1 capsule 8h Mar, 30 days Active Atorvastatin Calcium 40 mg Orally Once a day 1 tablet 24h Active Lexapro 10 mg Orally Once a day 1 tablet 24h Active Lisinopril 10 mg Orally Once a day 1 tablet 24h Jan, 30 day(s) Active Metformin HCl 500 MG TAKE ONE TABLET BY MOUTH TWICE DAILY WITH MEALS 90 Active Aspirin 81 MG Orally Once a day 1 tablet 24h 30 day(s) Active HydrOXYzine Pamoate 50 MG TAKE ONE TO TWO CAPSULES BY MOUTH THREE TIMES DAILY NEEDED FOR ANXIETY AND SLEEP Active Ibuprofen 800 MG Orally every 8 hours, PRN TAKE ONE TABLET BY MOUTH THREE TIMES DAILY NEEDED 90 Active Invega 6 MG Orally Once a day 2 tablets 24h Active MS Contin 30 MG Orally every 12 hrs 1 tablet 12h Apr, 28 days Active Trazodone HCl 150 MG Orally Once a day 1 tablet at bedtime 24h Active RESULTS No Results PROCEDURES Procedure Date Ordered Result Body Site [facility] VISIT ESTABLISHED PATIENT May 15, 2018 INSTRUCTIONS MEDICATIONS ADMINISTERED No Known Medications MEDICAL [...] Hospitalization History ED then admitted to [facility]-cardiac stepdown-chest pain 02/2010 Hospitalization History Possible DVT-sono negative 06/2010 Hospitalization History cellulitis to bilat legs
--- OUTSIDE RECORDS SUMMARY | 2018-10-04 06:27 | XMS REPORT ---
Author Author Migration, Doctor Organization [facility] Address Unknown Phone Unavailable Care Team Providers Care Planetarium Technician Name Role Phone Migration, Doctor Unavailable Unavailable PROBLEMS Type Condition ICD9-CM Code FAY98-AL Code Onset Dates Condition Status SNOMED Code Problem Nocturnal hypoxia G47.34 Active 650636783 Problem Primary osteoarthritis of both knees M17.0 Active 431231321 Problem Type 2 diabetes mellitus with diabetic polyneuropathy E11.42 Active 592645677 Problem Pure hypercholesterolemia E78.0 Active 070857054 Problem Chronic pain syndrome G89.4 Active 232432549 Problem Chronic systolic (congestive) heart failure I50.22 Active 656202273 Problem Tobacco abuse Z72.0 Active 815040847 Problem Posttraumatic stress disorder F43.10 Active 13872165 Problem Non-ischemic cardiomyopathy I42.9 Active 69635120 Problem Gastroesophageal reflux disease, esophagitis presence not specified K21.9 Active 106527793 Problem History of weight loss surgery Z98.84 Active 076105620 Problem Chronic obstructive pulmonary disease, unspecified COPD type J44.9 Active 74603536 Problem Chronic prescription opiate use Z79.891 Active 905829786 Problem MITCHELL treated with BiPAP G47.33 Active 00453311 Problem Severe major depression with psychotic features F32.3 Active 34670138 Problem Acute right-sided low back pain with right-sided sciatica M54.41 Active 09445946 Problem Obesity, morbid, BMI 40.0-49.9 E66.01 Active 275439640 Problem Macrocytosis D75.89 Active 808808444 Problem BMI 45.0-49.9, adult Z68.42 Active 454766590 Problem Pure hypercholesterolemia E78.00 Active 626751517 Problem Essential hypertension I10 Active 67164240 Problem Obstructive sleep apnea syndrome G47.33 Active 36392818 Problem History of DVT (deep vein thrombosis) Z86.718 Active 682318769 Problem Major depressive disorder, recurrent episode, unspecified severity F33.9 Active 75083657 Problem Mild episode of recurrent major depressive disorder F33.0 Active 720187821 Problem Mood disorder F39 Active 65950415 Problem Primary insomnia F51.01 Active 8379427 Problem Chronic systolic congestive heart failure I50.22 Active 386061733 ALLERGIES No Information ENCOUNTERS Encounter Location Date Diagnosis [place] [id number] [place] [phone] 04 Aug, 2018 [place] [address] [place] [id number] [place] [phone] Jun, [place] [address] [address] [id number] [place] [phone] Jun, Chronic pain syndrome G89.4 [place] [address] [address] [id number] [place] [phone] May, Type 2 diabetes mellitus with diabetic polyneuropathy E11.42 ; Mass of shoulder region R22.30 and Morbid obesity E66.01 [place] [address] [id number] [place] [phone] 07 May, 2018 Chronic pain syndrome G89.4 [place] [address] [id number] [place] [phone] 04 May, 2018 Mood disorder F39 ; Posttraumatic stress disorder F43.10 and Morbid obesity E66.01 [place] [address] [id number] [place] [phone] 14 Apr, 2018 Major depressive disorder, recurrent episode, unspecified severity F33.9 [place] [address] [place] [phone] 13 Apr, 2018 Major depressive disorder, recurrent episode, unspecified severity F33.9 [place] [address] [place] [phone] 07 Apr, 2018 Chronic pain syndrome G89.4 [place] [address] [place] [phone] 14 Mar, 2018 Pain in right foot M79.671 ; Type 2 diabetes mellitus with diabetic polyneuropathy E11.42 ; Chronic pain syndrome G89.4 and BMI 50.0-59.9, adult Z68.43 [facility] [address] [place] [id number] [place] [phone] Mar, [facility] [address] [place] [address] [id number] [place] [phone] Mar, [facility] [address] [id number] [place] [phone] Mar, Chronic pain syndrome G89.4 [facility] [address] [place] [address] [id number] [place] [phone] Feb, Chronic pain syndrome G89.4 [place] [address] [address] [id number] [place] [phone] Jan, Obstructive sleep apnea syndrome G47.33 [place] [address] [address] [id number] [place] [phone] 26 Jan, 2018 Type 2 diabetes mellitus with diabetic polyneuropathy E11.42 ; Chronic pain syndrome G89.4 ; Gastroesophageal reflux disease, esophagitis presence not specified K21.9 ; Essential hypertension I10 ; Pure hypercholesterolemia E78.00 ; Chronic prescription opiate use Z79.891 ; Obstructive sleep apnea syndrome G47.33 and BMI 50.0-59.9, adult Z68.43 [facility] [address] [place] [address] [id number] [place] [phone] 20 Jan, 2018 History of weight loss surgery Z98.84 [place] [address] [id number] [place] [phone] 16 Jan, 2018 [facility] [address] [place] [address] [id number] [place] [phone] Jan, Chronic pain syndrome G89.4 [facility] [address] [place] [address] [id number] [place] [phone] Jan, [facility] [address] [address] [id number] [place] [phone] 02 Jan, 2018 [facility] [address] [place] [address] [id number] [place] [phone] Dec, [place] [address] [place] [phone] Dec, Chronic pain syndrome G89.4 [place] [address] [address] [id number] [place] [phone] Dec, Injury of left knee, subsequent encounter S89.92XD and Acute pain of left knee M25.562 [place] [address] [address] Dec, [place] [address] [id number] [place] [address] Dec, Injury of left knee, initial encounter S89.92XA and BMI 45.0-49.9, adult Z68.42 [place] [address] [address] [id number] [place] [address] Nov, Chest discomfort R07.89 ; Shortness of breath R06.02 ; Chronic systolic congestive heart failure I50.22 and Type 2 diabetes mellitus with diabetic polyneuropathy E11.42 [place] [address] [place] [id number] [place] [phone] 20 Nov, 2017 Chronic pain syndrome G89.4 [place] [address] [place] [id number] [place] [phone] Oct, BMI 45.0-49.9, adult Z68.42 ; Type 2 diabetes mellitus with diabetic polyneuropathy E11.42 ; Chronic pain syndrome G89.4 ; Gastroesophageal reflux disease, esophagitis presence not specified K21.9 ; Decreased pedal pulses R09.89 and Precordial pain R07.2 [place] [address] [place] [id number] [place] [phone] Oct, [place] [address] [address] [id number] [place] [phone] Oct, Mood disorder F39 [place] [address] [id number] [place] [address] Oct, Mood disorder F39 ; Posttraumatic stress disorder F43.10 and BMI 45.0-49.9, adult Z68.42 [place] [address] [place] [id number] [place] [phone] Sep, Primary osteoarthritis of both knees M17.0 and Chronic pain syndrome G89.4 [place] [address] [id number] [place] [phone] Sep, Mood disorder F39 and Posttraumatic stress disorder F43.10 [place] [address] [place] [id number] [place] [phone] Aug, Primary osteoarthritis of both knees M17.0 and Chronic pain syndrome G89.4 [place] [address] [id number] [place] [phone] July, Primary osteoarthritis of both knees M17.0 and Chronic pain syndrome G89.4 [place] [address] [place] [id number] [place] [phone] July, Type 2 diabetes mellitus with diabetic polyneuropathy E11.42 ; Essential hypertension I10 ; Pure hypercholesterolemia E78.0 ; Chronic prescription opiate use Z79.891 ; Tobacco abuse Z72.0 ; Primary osteoarthritis of both knees M17.0 ; Primary insomnia F51.01 and BMI 45.0-49.9, adult Z68.42 [place] [address] [place] [phone] July, Medicare annual wellness visit, initial Z00.00 [...] specified K21.9 and Encounter for immunization Z23 [place] [address] [place] [id number] [place] [phone] July, Primary osteoarthritis of both knees M17.0 and Chronic pain syndrome G89.4 [facility] [address] [address] Jun, Infection of right ear H66.91 ; Wheezing on auscultation R06.2 and BMI 45.0-49.9, adult Z68.42 [facility] [address] [place] [id number] [place] [phone] Jun, [facility] [address] [place] [id number] [place] [phone] Jun, Primary osteoarthritis of both knees M17.0 and Chronic pain syndrome G89.4 [facility] [address] [place] [id number] [place] [phone] May, [facility] [address] [place] [address] [id number] [place] [address] May, BMI 45.0-49.9, adult Z68.42 ; Mood disorder F39 and Posttraumatic stress disorder F43.10 [facility] [address] [place] [id number] [place] [phone] May, [facility] [address] [place] [id number] [place] [phone] May, Primary osteoarthritis of both knees M17.0 and Chronic pain syndrome G89.4 [facility] [address] [address] May, Mood disorder F39 [facility] [address] [address] Apr, Type 2 diabetes mellitus with diabetic polyneuropathy E11.42 [facility] [address] [place] [id number] [place] [phone] Apr, [facility] [address] [id number] [place] [phone] Apr, Primary osteoarthritis of both knees M17.0 and Chronic pain syndrome G89.4 [facility] [address] [address] Apr, Mood disorder F39 [facility] [address] [place] [phone] Mar, Mood disorder F39 and Posttraumatic stress disorder F43.10 [facility] [address] [place] [phone] Mar, Primary osteoarthritis of both knees M17.0 and Chronic pain syndrome G89.4 [facility] [address] [place] [phone] Feb, Primary osteoarthritis of both knees M17.0 and Chronic pain syndrome G89.4 [facility] [address] [place] [address] [id number] [place] [phone] Feb, Mood disorder F39 [facility] [address] [id number] [place] [address] Jan, Type 2 diabetes mellitus with diabetic polyneuropathy E11.42 ; Primary osteoarthritis of both knees M17.0 ; Mood disorder F39 ; Obesity, morbid, BMI 40.0-49.9 E66.01 ; Chronic prescription opiate use Z79.891 ; Acute suppurative otitis media of both ears without spontaneous rupture of tympanic membranes, recurrence not specified H66.003 and BMI 45.0-49.9, adult Z68.42 [facility] [address] [place] [address] Jan, Primary osteoarthritis of both knees M17.0 and Chronic pain syndrome G89.4 [facility] [address], [place] [address] Dec, Mood disorder F39 and Posttraumatic stress disorder F43.10 [facility] [address] [address] Dec, Primary osteoarthritis of both knees M17.0 and Chronic pain syndrome G89.4 [facility] [address] [place] [id number] [place] [phone] 18 Nov, 2016 Chronic pain syndrome G89.4 [facility] [address] [place] [id number] [place] [phone] 15 Nov, 2016 Primary osteoarthritis of both knees M17.0 and Chronic pain syndrome G89.4 [facility] [address] [place] [id number] [place] [phone] 13 Nov, 2016 Type 2 diabetes mellitus with diabetic polyneuropathy E11.42 and Chronic pain syndrome G89.4 [facility] [address] [place] [id number] [place] [phone] 12 Nov, 2016 Posttraumatic stress disorder F43.10 and Mood disorder F39 [facility] [address] [place] [id number] [place] [phone] 18 Oct, 2016 Chronic pain syndrome G89.4 [facility] [id number] [place] [phone] Oct, Type 2 diabetes mellitus with diabetic polyneuropathy E11.42 ; BMI 45.0-49.9, adult Z68.42 ; Primary osteoarthritis of both knees M17.0 and Skin lesion L98.9 [facility] [address] [id number] [place] [phone] Oct, Chronic pain syndrome G89.4 [facility] [address] [id number] [place] [phone] Sep, Chronic pain syndrome G89.4 [facility] [id number] [place] [phone] Sep, [facility] [id number] [place] [phone] Sep, Chronic pain syndrome G89.4 [facility] [id number] [place] [phone] Aug, Chronic pain syndrome G89.4 [facility] [id number] [place] [address] Aug, [facility] [address] [address] Aug, Macrocytosis D75.89 and Pure hypercholesterolemia E78.0 [facility] [address] [place] [phone] Aug, Pure hypercholesterolemia E78.0 [facility] [id number] [place] [phone] Aug, Macrocytosis D75.89 [facility] [address] [place] [id number] [place] [address] Aug, Pure hypercholesterolemia E78.0 ; Type 2 diabetes mellitus with diabetic polyneuropathy E11.42 ; MITCHELL treated with BiPAP G47.33 and Chronic pain syndrome G89.4 [facility] [address] [id number] [place] [address] Aug, [facility] [address] [place] [id number] [place] [phone] Aug, Hemorrhoids, unspecified hemorrhoid type K64.9 [facility] [address] [place] [id number] [place] [phone] Aug, Chronic pain syndrome G89.4 ; Type 2 diabetes mellitus with diabetic polyneuropathy E11.42 ; Hemorrhoids, unspecified hemorrhoid type K64.9 ; Tobacco abuse Z72.0 and Primary osteoarthritis of both knees M17.0 [facility] [address] [place] [phone] July, Chronic pain syndrome G89.4 [facility] [address] [place] [phone] July, [facility] [address] [place] [id number] [place] [phone] Jun, Chronic pain syndrome G89.4 [facility] [address] [place] [phone] Jun, Chronic pain syndrome G89.4 [facility] [address] [place] [address] Jun, Severe major depression with psychotic features F32.3 and Posttraumatic stress disorder F43.10 [facility] [id number] [place] [phone] Jun, Chronic pain syndrome G89.4 [facility] [id number] [place] [phone] Jun, [facility] [address] [id number] [place] [phone] May, Chronic pain syndrome G89.4 [facility] [address] [place] [address] [id number] [place] [phone] May, Tobacco abuse Z72.0 [facility] [id number] [place] [phone] May, [facility] [id number] [place] [phone] Apr, Chronic pain syndrome G89.4 [facility] [id number] [place] [phone] Apr, [facility] [id number] [place] [address] Apr, Right foot pain M79.671 [facility] [id number] [place] [address] Mar, Type 2 diabetes mellitus with diabetic polyneuropathy E11.42 ; MITCHELL treated with BiPAP G47.33 ; Pure hypercholesterolemia E78.0 ; Chronic pain syndrome G89.4 ; Tobacco abuse Z72.0 and Obesity, morbid, BMI 40.0-49.9 E66.01 [facility] [id number] [place] [phone] Mar, [facility] [id number] [place] [phone] Mar, [facility] [address], [place] [address] Mar, [facility] [id number] [place] [phone] Mar, [facility] [address] [place] [phone] Mar, [facility] [id number] [place] [address] Mar, Severe major depression with psychotic features F32.3 and Posttraumatic stress disorder F43.10 [facility] [id number] [place] [phone] Mar, [facility] [id number] [place] [phone] Feb, [facility] [id number] [place] [address] Feb, [facility] [address] [place] [phone] Jan, [facility] [id number] [place] [phone] Jan, [facility] [address] [place] [address] Dec, Posttraumatic stress disorder F43.10 and Severe major depression with psychotic features F32.3 [facility] [address], [place] [address] Dec, Type 2 diabetes mellitus with diabetic polyneuropathy E11.42 ; Chronic pain syndrome G89.4 and Acute right-sided low back pain with right-sided sciatica M54.41 [facility] [address], [place] [address] Dec, [facility] [address], [place] [address] Dec, [facility] [address] [place] [address] 08 Nov, 2015 [facility] [id number] [place] [phone] Nov, [facility] [address] [place] [phone] Nov, [facility] [id number] [place] [phone] Oct, [facility] [id number] [place] [phone] Oct, [facility] [id number] [place] [phone] Sep, Dental examination Z01.20 [facility] [id number] [place] [phone] Sep, [facility] [id number] [place] [phone] Sep, Type 2 diabetes mellitus with diabetic polyneuropathy E11.42 ; Chronic pain syndrome G89.4 ; Chronic prescription opiate use Z79.891 ; Injury of right index finger, sequela S69.91XS and Anejaculation N50.8 [facility] [id number] [place] [phone] Aug, [facility] [id number] [place] [phone] Aug, [facility] [id number] [place] [phone] Aug, Cellulitis of finger of right hand L03.011 [facility] [id number] [place] [phone] July, [facility] [id number] [place] [phone] July, [facility] [id number] [place] [phone] Jun, Onychomycosis B35.1 [facility] [id number] [place] [phone] Jun, Severe major depression with psychotic features F32.3 and Posttraumatic stress disorder F43.10 [facility] [address] [phone] Jun, [facility] [id number] [place] [phone] Jun, [facility] [id number] [place] [phone] Jun, [facility] [facility] [id number] [place] [address] May, Type 2 diabetes mellitus with diabetic polyneuropathy E11.42 [facility] [id number] [place] [address] May, Type 2 diabetes mellitus with diabetic polyneuropathy E11.42 and Urinary hesitancy R39.11 [facility] [id number] [place] [address] May, Type 2 diabetes mellitus with diabetic polyneuropathy E11.42 ; Left hip pain M25.552 and Benign prostatic hyperplasia with lower urinary tract symptoms, unspecified morphology N40.1 [facility] [address] [address] May, [facility] [id number] [place] [address] Apr, Severe major depression with psychotic features F32.3 and Posttraumatic stress disorder F43.10 [facility] [id number] [place] [address] Apr, [facility] [address] [address] Mar, [facility] [id number] [place] [address] Mar, Dysuria R30.0 and Urinary hesitancy R39.11 [facility] [id number] [place] [address] Mar, Onychomycosis B35.1 [facility] [id number] [place] [address] Mar, [facility] [id number] [place] [address] Feb, [facility] [id number] [place] [address] Jan, [facility] [id number] [place] [address] Jan, Posttraumatic stress disorder F43.10 and Severe major depression with psychotic features F32.3 [facility] [id number] [place] [address] Jan, [facility] [id number] [place] [address] Jan, Chronic pain syndrome G89.4 ; Type 2 diabetes mellitus with diabetic polyneuropathy E11.42 ; Decreased pedal pulses R09.89 and Paresthesia of both hands R20.2 [facility] [id number] [place] [address] Dec, Posttraumatic stress disorder F43.10 and Severe major depression with psychotic features F32.3 [facility] [address] [address] Dec, [facility] [id number] [place] [address] Dec, [facility] [id number] [place] [address] Dec, Onychomycosis B35.1 [facility] [id number] [place] [address] Dec, [facility] [id number] [place] [address] Dec, [facility] [id number] [place] [address] Nov, [facility] [id number] [place] [address] Oct, Depression, major, recurrent, moderate 296.32 and Posttraumatic stress disorder 309.81 [facility] [id number] [place] [address] Oct, [facility] [id number] [place] [address] Oct, [facility] [id number] [place] [address] Oct, [facility] [id number] [place] [address] Sep, Posttraumatic stress disorder 309.81 and Depression, major, recurrent, moderate 296.32 [facility] [id number] [place] [address] Sep, [facility] [id number] [place] [address] Sep, Chronic airway obstruction, not elsewhere classified [id number] [place] [address] Sep, Onychomycosis 110.1 and DM neuro manif type II 250.60 [facility] [id number] [place] [address] Sep, Chronic pain 338.29 ; Chronic airway obstruction, not elsewhere classified 496 ; Osteoarthritis of knees, bilateral 715.96 and On potassium wasting diuretic therapy V58.69 [facility] [id number] [place] [address] Sep, Insect bites 919.4 ; Sinusitis 473.9 and GERD (gastroesophageal reflux disease) 530.81 [facility] [address] [address] Aug, Depression, major, recurrent, moderate 296.32 and Posttraumatic stress disorder 309.81 [facility] [address] [address] Aug, [facility] [id number] [address] Aug, [facility] [id number] [address] Aug, [facility] [id number] [place] [address] July, Major depressive disorder, recurrent episode, moderate 296.32 and Posttraumatic stress disorder 309.81 [facility] [address] [address] July, [facility] [id number] [address] July, [facility] [id number] [address] July, [facility] [id number] [address] July, [facility] [id number] [address] Jun, [facility] [id number] [address] Jun, [facility] [id number], [place] [address] May, [facility] [id number] [address] May, [facility] [id number] [address] May, [facility] [address] [address] [address] 18 May, 2014 [facility] [place] [facility] [address] [id number] [place] [address] May, 2014 [facility] [place] [facility] [address] [id number] [place] [address] May, 2014 [facility] [place] [facility] [address] [id number] [place] [address] May, 2014 [facility] [place] [facility] [address] [id number] [place] [address] May, 2014 [facility] [place] [facility] [address] [id number] [place] [address] May, [facility] [place] [facility] [address] [facility] [id number] [place] [address] Apr, 2014 [facility] [place] [facility] [address] [facility] [id number] [place] [address] Apr, 2014 [facility] [place] [facility] [address] [facility] [id number] [place] [address] Apr, 2014 [facility] [place] [facility] [address] [facility] [id number] [place] [address] Apr, 2014 [facility] [place] [facility] [address] [facility] [id number] [place] [address] Apr, 2014 [facility] [place] [facility] [address] [facility] [id number] [place] [address] Apr, 2014 [facility] [place] [facility] [address] [facility] [id number] [place] [address] Apr, 2014 [facility] [place] [facility] [address] [facility] [id number] [place] [address] Apr, 2014 [facility] [place] [facility] [address] [facility] [id number] [place] [address] Apr, 2014 [facility] [place] [facility] [address] [facility] [id number] [place] [address] 30 Mar, 2014 [facility] [place] [facility] [address] [id number] [place] [address] 30 Mar, 2014 [facility] [place] [facility] [address] [id number] [place] [address] Mar, [facility] [place] [facility] [address] [id number] [place] [address] Mar, [facility] [place] [facility] [address] [id number] [place] [address] 15 Mar, 2014 [facility] [place] [facility] [address] [id number] [place] [address] 15 Mar, 2014 [facility] [place] [facility] [address] [id number] [place] [address] 15 Mar, 2014 [facility] [place] [facility] [address] [id number] [place] [address] Mar, [facility] [place] [facility] [address] [id number] [place] [address] 15 Mar, 2014 [facility] [place] [facility] [address] [id number] [place] [address] 15 Mar, 2014 [facility] [place] [facility] [address] [id number] [place] [address] 14 Mar, 2014 [facility] [place] [facility] [address] [id number] [address] 14 Mar, 2014 [facility] [place] [facility] [address] [id number], [place] [address] 14 Mar, 2014 [facility] [place] [facility] [address] [id number] [place] [address] Mar, [facility] [place] [facility] [address] [id number] [place] [address] 14 Mar, 2014 [facility] [place] [facility] [address] [id number] [place] [address] 14 Mar, 2014 [facility] [place] [facility] [address] [id number] [place] [address] 09 Mar, 2014 [facility] [address] [id number] [place] [address] Mar, [facility] [address] [id number] [place] [address] 16 Feb, 2014 [facility] [address] [id number] [place] [address] 16 Feb, 2014 [facility] [place] [facility] [address] [id number] [place] [address] 15 Feb, 2014 [facility] [address] [id number] [place] [address] 15 Feb, 2014 [facility] [place] [facility] [address] [id number] [place] [address] 15 Feb, 2014 [facility] [address] [id number] [place] [address] Feb, [facility] [address] [id number] [place] [address] Jan, [facility] [place] [facility] [address] [id number] [place] [address] Jan, [facility] [address] [id number] [place] [address] Jan, [facility] [place] [facility] [address] [id number] [place] [address] Jan, [facility] [place] [facility] [address] [id number] [place] [address] Jan, [facility] [place] [facility] [address] [id number] [place] [address] Jan, [facility] [place] [facility] [address] [id number] [place] [address] Jan, [facility] [place] [facility] [address] [id number] [place] [address] Jan, [facility] [place] [facility] [address] [id number] [place] [address] Jan, [facility] [place] [facility] [address] [id number] [place] [address] Jan, [facility] [place] [facility] [address] [id number] [place] [address] Dec, [facility] [place] [facility] [address] [id number] [place] [address] Dec, [facility] [place] [facility] [address] [id number] [place] [address] Dec, [facility] [place] [facility] [address] [id number] [place] [address] Dec, [facility] [place] [facility] [address] [id number] [place] [address] 16 Nov, 2013 [facility] [place] [facility] [address] [id number] [place] [address] 16 Nov, 2013 [facility] [place] [facility] [address] [id number] [place] [address] Nov, [facility] [place] [facility] [address] [id number] [place] [address] Nov, 2013 [facility] [place] [facility] [address] [id number] [place] [address] Nov, 2013 [facility] [place] [facility] [address] [id number], [place] [address] Nov, 2013 [facility] [place] [facility] [address] [id number] [place] [address] Oct, [facility] [place] [facility] [address] [id number] [place] [address] Oct, [facility] [place] [facility] [address] [id number] [place] [address] Oct, [facility] [place] [facility] [address] [id number] [address] Oct, [facility] [place] [facility] [address] [id number] [place] [address] Sep, [facility] [place] [facility] [address] [id number] [place] [address] Sep, [facility] [place] [facility] [address] [id number] [place] [address] Sep, [facility] [place] [facility] [address] [id number] [place] [address] Sep, [facility] [place] [facility] [address] [id number] [place] [address] Sep, [facility] [place] [facility] [address] [id number] [place] [address] Sep, [facility] [place] [facility] [address] [id number] [place] [address] July, [facility] [place] [facility] [address] [id number] [place] [address] July, [facility] [place] [facility] [address] [id number] [place] [address] July, [facility] [place] [facility] [address] [id number] [place] [address] July, [facility] [place] [facility] [address] [id number] [place] [address] Jun, [facility] [place] [facility] [address] [id number] [place] [address] Jun, [facility] [place] [facility] [address] [id number] [place] [address] Jun, [facility] [place] [facility] [address] [id number] [place] [address] Jun, [facility] [place] [facility] [address] [id number] [place] [address] Jun, [facility] [place] [facility] [address] [id number] [place] [address] Jun, [facility] [place] [facility] [address] [id number] [place] [address] May, [facility] [place] [facility] [address] [id number] [place] [address] May, [facility] [place] [facility] [address] [id number] [place] [address] Apr, [facility] [place] [facility] [address] [id number] [place] [address] Apr, [facility] [place] [facility] [address] [id number] [place] [address] Apr, [facility] [place] [facility] [address] [id number] [place] [address] Apr, [facility] [place] [facility] [address] [id number] [place] [address] Apr, [facility] [place] [facility] [address] [id number] [place] [address] Apr, [facility] [place] [facility] [address] [facility] [id number] [place] [address] Apr, [facility] [place] [facility] [address] [facility] [id number] [place] [address] Mar, [facility] [place] [facility] [address] [id number] [place] [address] Mar, [facility] [place] [facility] [address] [id number] [place] [address] Mar, [facility] [place] [facility] [address] [id number] [place] [address] Mar, [facility] [place] [facility] [address] [id number] [place] [address] Mar, [facility] [place] [facility] [address] [id number], [place] [address] Mar, [facility] [address] [id number] [place] [address] Mar, [facility] [place] [facility] [address] [id number] [place] [address] Mar, [facility] [address] [id number] [place] [address] Feb, [facility] [place] [facility] [address] [id number], [place] [address] Feb, [facility] [address] [id number] [place] [address] Feb, [facility] [address] [id number] [place] [address] Feb, [facility] [address] [id number] [place] [address] Feb, [facility] [address] [id number] [place] [address] Feb, [facility] [address] [id number], [place] [address] Feb, [facility] [address] [id number] [place] [address] Jan, [facility] [address] [id number], [place] [address] Jan, [facility] [place] [facility] [address] [id number], [place] [address] Jan, [facility] [place] [facility] [address] [id number] [place] [address] Jan, [facility] [place] [facility] [address] [id number], [place] [address] Jan, [facility] [place] [facility] [address] [id number] [place] [id number] Jan, [facility] [place] [facility] [address] [id number] [place] [address] Jan, [facility] [place] [facility] [address] [id number] [place] [id number] Jan, [facility] [place] [facility] [address] [id number] [place] [address] Dec, 2012 [facility] [place] [facility] [address] [id number] [place] [address] Dec, 2012 [facility] [place] [facility] [address] [id number] [place] [address] Dec, 2012 [facility] [place] [facility] [address] [id number] [place] [address] Dec, [facility] [place] [facility] [address] [id number] [place] [address] Dec, [facility] [place] [facility] [address] [id number] [place] [address] Dec, [facility] [place] [facility] [address] [id number] [place] [address] Dec, [facility] [place] [facility] [address] [id number] [place] [address] Dec, [facility] [place] [facility] [address] [id number] [place] [address] Dec, [facility] [place] [facility] [address] [id number] [place] [address] Dec, [facility] [place] [facility] [address] [id number] [id number] Nov, [facility] [place] [facility] [address] [id number] [place] [id number] Nov, [facility] [place] [facility] [address] [id number] [place] [address] 24 Nov, 2012 [facility] [place] [facility] [address] [id number], [place] [address] 20 Nov, 2012 [facility] [place] [facility] [address] [id number] [place] [address] Nov, [facility] [place] [facility] [address] [id number] [place] [address] 13 Nov, 2012 [facility] [place] [facility] [address] [id number] [place] [address] 10 Nov, 2012 [facility] [place] [facility] [address] [id number] [place] [address] 06 Nov, 2012 [facility] [place] [facility] [address] [id number] [place] [address] Oct, [facility] [place] [facility] [address] [id number] [place] [address] Oct, [facility] [place] [facility] [address] [id number] [place] [address] Oct, [facility] [place] [facility] [address] [id number] [place] [address] Sep, [facility] [place] [facility] [address] [id number] [place] [address] Sep, [facility] [place] [facility] [address] [id number] [place] [address] Sep, [facility] [place] [facility] [address] [id number] [place] [address] Sep, [facility] [place] [facility] [address] [id number] [place] [address] Sep, [facility] [place] [facility] [address] [id number] [place] [address] Aug, [facility] [place] [facility] [address] [id number] [place] [address] Aug, [facility] [place] [facility] [address] [id number] [place] [address] Aug, [facility] [place] [facility] [address] [id number] [place] [address] Aug, [facility] [address] [id number] [place] [address] Aug, [facility] [address] [id number] [place] [address] Aug, [facility] [address] [id number] [place] [address] July, [facility] [address] [id number] [place] [address] July, [facility] [address] [id number] [place] [address] July, [facility] [address] [id number] [place] [address] July, [facility] [address] [id number] [place] [address] July, [facility] [address] [id number] [place] [address] July, [facility] [address] [id number] [place] [address] Jun, [facility] [place] [facility] [address] [id number] [place] [address] Jun, [facility] [address] [id number], [place] [address] Jun, [facility] [place] [facility] [address] [id number], [place] [address] Jun, [facility] [place] [facility] [address] [id number] [place] [address] May, [facility] [place] [facility] [address] [id number] [place] [address] May, [facility] [place] [facility] [address] [id number] [place] [address] May, [facility] [place] [facility] [address] [id number] [place] [address] 19 Apr, 2012 [facility] [address] [id number] [place] [address] Mar, [facility] [address] [id number] [place] [address] 18 Mar, 2012 [facility] [address] [id number] [place] [address] 17 Mar, 2012 [facility] [address] [id number] [place] [address] 16 Mar, 2012 [facility] [id number] [place] [address], [place] [address] 15 Mar, 2012 [facility] [address] [id number] [place] [address] 31 Feb, 2012 [facility] [address] [facility] [id number] [place] [address] Feb, [facility] [address] [id number] [place] [address] 17 Feb, 2012 [facility] [address] [facility] [id number] [place] [address] Feb, [facility] [address] [facility] [id number] [place] [address] Jan, [facility] [address] [id number] [place] [address] Jan, [facility] [address] [id number] [place] [address] Jan, [facility] [address] [id number] [place] [address] Jan, [facility] [address] [facility] [id number] [place] [address] Dec, [facility] [address] [id number] [place] [address] Dec, [facility] [place] [facility] [address] [id number] [place] [address] Nov, [facility] [address] [id number] [place] [address] Oct, [facility] [address] [id number] [place] [address] Oct, [facility] [address] [id number] [place] [address] Oct, [facility] [address] [id number] [place] [address] Oct, [facility] [address] [id number] [place] [address] Oct, [facility] [place] [facility] [address] [id number] [place] [address] Sep, [facility] [place] [facility] [address] [id number] [place] [address] Sep, [facility] [place] [facility] [address] [id number] [place] [address] Aug, [address] [id number] Aug, [facility] [address] [id number] [place] [address] Aug, [facility] [address] [id number] [place] [address] July, [facility] [address] [id number] [place] [address] July, [facility] [address] [id number] [place] [address] Jun, [facility] [address] [id number] [place] [address] Jun, [facility] [address] [id number] [place] [address] Jun, [facility] [address] [id number] [place] [address] 13 Jun, 2011 [facility] [place] [facility] [address] [id number] [place] [address] 15 Apr, 2011 [facility] [place] [facility] [address] [id number] [place] [address] 15 Apr, 2011 [facility] [place] [facility] [address] [id number] [place] [address] 10 Apr, 2011 [facility] [place] [facility] [address] [id number] [place] [address] Mar, [facility] [place] [facility] [address] [id number] [place] [address] Mar, [facility] [place] [facility] [address] [id number] [place] [address] Mar, [facility] [place] [facility] [address] [id number] [place] [address] Mar, [facility] [place] [facility] [address] [id number] [place] [address] Mar, [facility] [place] [facility] [address] [id number] [place] [address] Jan, [facility] [place] [facility] [address] [id number] [place] [address] Jan, [facility] [place] [facility] [address] [id number], [place] [address] Jan, [facility] [place] [facility] [address] [id number] [place] [address] Mar, [facility] [place] [facility] [address] [id number] [place] [address] Mar, [facility] [place] [facility] [address] [id number] [place] [address] Feb, [facility] [place] [facility] [id number] [address] 16 Feb, 2010 [facility] [address] [facility] [id number], [place] [address] 16 Feb, 2010 [facility] [address] [facility] [id number], [place] [address] Jan, [facility] [address] [facility] [id number], [place] [address] Jan, [facility] [address] [facility] [id number], [place] [address] Dec, [facility] [address] [facility] [id number] [place] [address] Dec, [facility] [id number], [place] [address] May, [facility] [id number] [place] [address] 10 Apr, 2009 [facility] [id number], [place] [address] Feb, [facility] [id number] [place] [address] Feb, [facility] [id number], [place] [address] Jan, [facility] [id number] [place] [address] Jan, [facility] [id number], [place] [address] Jan, [facility] [id number] [place] [address] Jan, [facility] [id number], [place] [address] Jan, IMMUNIZATIONS No Known Immunizations SOCIAL HISTORY Never Assessed REASON FOR VISIT [place] [place] VITAL SIGNS MEDICATIONS Medication Instructions Dosage Frequency Start Date End Date Duration Status Clindamycin HCl 150 mg 1 capsule by Oral route every 6 hours for 10 days Feb, Active Coreg 3.125 mg 1 Tablet by Oral route 2 times per day Oct, Active Nexium 40 mg 1 Capsule by Oral route 1 time per day Oct, Active ProAir HFA 90 mcg/actuation inhale 2 puffs by Inhalation route every 4 hours as needed PRN shortness of breath/cough May, Active Hydrocodone-Acetaminophen 5-325 mg take 1 tablet by oral route every 6 hours as needed for pain May, Active Lotrisone 1-0.05 % 1 inch by Topical route 2 times per day Apr, Active cyclobenzaprine 10 mg take 1 tablet (10 mg) by oral route 3 times per day PRN Mar, Active morphine 30 mg Take 1 Tablet by Oral route 2 times per day May, Active Patanol 0.1 % 1 drop by Ophthalmic route 2 times per day Nov, Active Flagyl 500 mg 1 tablet by Oral route 2 times per day for 10 days Jun, Active Prevpac 500-500-30 mg take 1 Each 1 dose by Oral route 2 times per day for 14 days Nov, Active Bactrim DS 800-160 mg take 1 tablet by oral route 2 times per day for 7 days for 10 days Jun, Active Lorazepam 1 mg 1 Tablet by Oral route 2 times per day PRN Apr, Active Lisinopril 10 mg 1 tablet by Oral route 1 time per day Oct, Active Abilify 10 mg take 1 tablet by Oral route 1 time per day Apr, Active Albuterol 0.083% SI.5 mg by nebulizer 4 times a day PRN(as needed for wheezing) Mar, Active RESULTS No Results PROCEDURES No Known procedures [...]
--- OUTSIDE RECORDS SUMMARY | 2018-10-04 06:28 | XMS REPORT ---
Author Author ESTHER CHAVEZ [facility] Address [address] [place] [address] Care Team Providers Care Purchasing Specialist Name Role Phone KATHYCIARAESTHER Unavailable PROBLEMS Type Condition ICD9-CM Code ZSO95-CW Code Onset Dates Condition Status SNOMED Code Problem Primary osteoarthritis of both knees M17.0 Active 304965041 Problem Nocturnal hypoxia G47.34 Active 297419609 Problem Pure hypercholesterolemia E78.0 Active 109495927 Problem Acute right-sided low back pain with right-sided sciatica M54.41 Active 25761726 Problem Type 2 diabetes mellitus with diabetic polyneuropathy E11.42 Active 059303077 Problem Posttraumatic stress disorder F43.10 Active 08338002 Problem Chronic systolic (congestive) heart failure I50.22 Active 248836960 Problem Severe major depression with psychotic features F32.3 Active 02072579 Problem Obesity, morbid, BMI 40.0-49.9 E66.01 Active 266592317 Problem Tobacco abuse Z72.0 Active 660301877 Problem Chronic systolic congestive heart failure I50.22 Active 571543463 Problem Primary insomnia F51.01 Active 3015051 Problem Essential hypertension I10 Active 43211723 Problem History of DVT (deep vein thrombosis) Z86.718 Active 952297913 Problem Chronic pain syndrome G89.4 Active 036849353 Problem BMI 45.0-49.9, adult Z68.42 Active 149291744 Problem Macrocytosis D75.89 Active 035940969 Problem Mood disorder F39 Active 60681360 Problem Mild episode of recurrent major depressive disorder F33.0 Active 210035712 Problem Non-ischemic cardiomyopathy I42.9 Active 59881930 Problem Chronic obstructive pulmonary disease, unspecified COPD type J44.9 Active 08978066 Problem Major depressive disorder, recurrent episode, unspecified severity F33.9 Active 54102092 Problem Gastroesophageal reflux disease, esophagitis presence not specified K21.9 Active 592602056 Problem MITCHELL treated with BiPAP G47.33 Active 16497787 Problem Chronic prescription opiate use Z79.891 Active 120863715 Problem PTSD (post-traumatic stress disorder) F43.10 Active 78521858 Problem History of weight loss surgery Z98.84 Active 652139663 ALLERGIES No Information ENCOUNTERS Encounter Location Date Diagnosis [facility] [id number] [place] [address] 26 Jan, 2018 [place] [address] [address] Jan[address] [facility] [address] [address] Jan, [facility] [address] [address] Dec, [facility] [address] [address] Dec, Chronic pain syndrome G89.4 [facility] [address] [address] Dec, Injury of left knee, subsequent encounter S89.92XD and Acute pain of left knee M25.562 [facility] [address] [address] 12 Dec, 2017 [place] [address] [address] Dec, Injury of left knee, initial encounter S89.92XA and BMI 45.0-49.9, adult Z68.42 [facility] [id number] [place] [address] Nov, Chest discomfort R07.89 ; Shortness of breath R06.02 ; Chronic systolic congestive heart failure I50.22 and Type 2 diabetes mellitus with diabetic polyneuropathy E11.42 [facility] [address] [address] 20 Nov, 2017 Chronic pain syndrome G89.4 [facility] [address] [place] [address] Oct, BMI 45.0-49.9, adult Z68.42 ; Type 2 diabetes mellitus with diabetic polyneuropathy E11.42 ; Chronic pain syndrome G89.4 ; Gastroesophageal reflux disease, esophagitis presence not specified K21.9 ; Decreased pedal pulses R09.89 and Precordial pain R07.2 [facility] [id number] [place] [address] Oct, [facility] [id number] [place] [address] Oct, Mood disorder F39 [facility] [facility] [address] [address] Oct, Mood disorder F39 ; Posttraumatic stress disorder F43.10 and BMI 45.0-49.9, adult Z68.42 [facility] [id number] [place] [address] Sep, Primary osteoarthritis of both knees M17.0 and Chronic pain syndrome G89.4 [facility] [id number] [place] [address] Sep, Mood disorder F39 and Posttraumatic stress disorder F43.10 [facility] [id number] [place] [address] Aug, Primary osteoarthritis of both knees M17.0 and Chronic pain syndrome G89.4 [facility] [id number] [place] [address] July, Primary osteoarthritis of both knees M17.0 and Chronic pain syndrome G89.4 [facility] [id number] [place] [address] July, Type 2 diabetes mellitus with diabetic polyneuropathy E11.42 ; Essential hypertension I10 ; Pure hypercholesterolemia E78.0 ; Chronic prescription opiate use Z79.891 ; Tobacco abuse Z72.0 ; Primary osteoarthritis of both knees M17.0 ; Primary insomnia F51.01 and BMI 45.0-49.9, adult Z68.42 [facility] [id number] [place] [address] 08 Jul, 2017 Medicare annual wellness visit, [...] specified K21.9 and Encounter for immunization Z23 [facility] [address] [address] July, Primary osteoarthritis of both knees M17.0 and Chronic pain syndrome G89.4 [facility] [id number] [place] [address] Jun, Infection of right ear H66.91 ; Wheezing on auscultation R06.2 and BMI 45.0-49.9, adult Z68.42 [place] [address] [address] Jun, [place] [id number] [place] [address] Jun, Primary osteoarthritis of both knees M17.0 and Chronic pain syndrome G89.4 [place] [id number] [place] [address] May, [place] [id number] [place] [address] May, BMI 45.0-49.9, adult Z68.42 ; Mood disorder F39 and Posttraumatic stress disorder F43.10 [facility] [id number] [place] [address] May, [place] [address] [address] May, Primary osteoarthritis of both knees M17.0 and Chronic pain syndrome G89.4 [facility] [id number] [place] [address] May, Mood disorder F39 [facility] [id number] [place] [address] Apr, Type 2 diabetes mellitus with diabetic polyneuropathy E11.42 [facility] [id number] [place] [address] Apr, [facility] [id number] [place] [address] Apr, Primary osteoarthritis of both knees M17.0 and Chronic pain syndrome G89.4 [facility] [id number] [place] [address] Apr, Mood disorder F39 [facility] [id number] [place] [address] Mar, Mood disorder F39 and Posttraumatic stress disorder F43.10 [facility] [id number] [place] [address] Mar, Primary osteoarthritis of both knees M17.0 and Chronic pain syndrome G89.4 [facility] [id number] [place] [address] Feb, Primary osteoarthritis of both knees M17.0 and Chronic pain syndrome G89.4 [facility] [id number] [place] [address] Feb, Mood disorder F39 [facility] [id number] [place] [address] Jan, Type 2 diabetes mellitus with diabetic polyneuropathy E11.42 ; Primary osteoarthritis of both knees M17.0 ; Mood disorder F39 ; Obesity, morbid, BMI 40.0-49.9 E66.01 ; Chronic prescription opiate use Z79.891 ; Acute suppurative otitis media of both ears without spontaneous rupture of tympanic membranes, recurrence not specified H66.003 and BMI 45.0-49.9, adult Z68.42 [facility] [id number] [place] [address] Jan, Primary osteoarthritis of both knees M17.0 and Chronic pain syndrome G89.4 [facility] [id number] [place] [address] Dec, Mood disorder F39 and Posttraumatic stress disorder F43.10 [facility] [id number] [place] [address] Dec, Primary osteoarthritis of both knees M17.0 and Chronic pain syndrome G89.4 [facility] [id number] [place] [address] 18 Nov, 2016 Chronic pain syndrome G89.4 [facility] [id number] [place] [address] 15 Nov, 2016 Primary osteoarthritis of both knees M17.0 and Chronic pain syndrome G89.4 [facility] [id number] [place] [address] 13 Nov, 2016 Type 2 diabetes mellitus with diabetic polyneuropathy E11.42 and Chronic pain syndrome G89.4 [facility] [id number] [place] [address] 12 Nov, 2016 Posttraumatic stress disorder F43.10 and Mood disorder F39 [facility] [id number] [place] [address] 18 Oct, 2016 Chronic pain syndrome G89.4 [facility] [id number] [place] [address] 16 Oct, 2016 Type 2 diabetes mellitus with diabetic polyneuropathy E11.42 ; BMI 45.0-49.9, adult Z68.42 ; Primary osteoarthritis of both knees M17.0 and Skin lesion L98.9 [facility] [id number] [place] [address] 09 Oct, 2016 Chronic pain syndrome G89.4 [facility] [address] [address] Sep, Chronic pain syndrome G89.4 [facility] [address] [address] Sep, [facility] [address] [address] Sep, Chronic pain syndrome G89.4 [facility] [address] [address] Aug, Chronic pain syndrome G89.4 [facility] [id number] [place] [address] Aug, [facility] [id number] [place] [address] Aug, Macrocytosis D75.89 and Pure hypercholesterolemia E78.0 [facility] [id number] [place] [address] Aug, Pure hypercholesterolemia E78.0 [facility] [id number] [place] [address] Aug, Macrocytosis D75.89 [facility] [address] [address] Aug, Pure hypercholesterolemia E78.0 ; Type 2 diabetes mellitus with diabetic polyneuropathy E11.42 ; MITCHELL treated with BiPAP G47.33 and Chronic pain syndrome G89.4 [facility] [address] [address] Aug, [facility] [id number] [place] [address] Aug, Hemorrhoids, unspecified hemorrhoid type K64.9 [facility] [address] [address] Aug, Chronic pain syndrome G89.4 ; Type 2 diabetes mellitus with diabetic polyneuropathy E11.42 ; Hemorrhoids, unspecified hemorrhoid type K64.9 ; Tobacco abuse Z72.0 and Primary osteoarthritis of both knees M17.0 [facility] [id number] [place] [address] July, Chronic pain syndrome G89.4 [facility] [id number] [place] [address] July, [facility] [id number] [place] [address] Jun, Chronic pain syndrome G89.4 [facility] [id number] [place] [address] Jun, Chronic pain syndrome G89.4 [facility] [id number] [place] [address] Jun, Severe major depression with psychotic features F32.3 and Posttraumatic stress disorder F43.10 [facility] [id number] [place] [address] Jun, Chronic pain syndrome G89.4 [facility] [id number] [place] [address] Jun, [facility] [id number] [place] [address] May, Chronic pain syndrome G89.4 [facility] [id number] [place] [address] May, Tobacco abuse Z72.0 [facility] [id number] [place] [address] May, [facility] [id number] [place] [address] Apr, Chronic pain syndrome G89.4 [facility] [address] [address] Apr, [facility] [address] [address] Apr, Right foot pain M79.671 [facility] [id number] [place] [address] Mar, Type 2 diabetes mellitus with diabetic polyneuropathy E11.42 ; MITCHELL treated with BiPAP G47.33 ; Pure hypercholesterolemia E78.0 ; Chronic pain syndrome G89.4 ; Tobacco abuse Z72.0 and Obesity, morbid, BMI 40.0-49.9 E66.01 [facility] [id number] [place] [address] Mar, [facility] [id number] [place] [address] Mar, [facility] [id number] [place] [address] Mar, [facility] [id number] [place] [address] Mar, [facility] [id number] [place] [address] Mar, [facility] [id number] [place] [address] Mar, Severe major depression with psychotic features F32.3 and Posttraumatic stress disorder F43.10 [facility] [id number] [place] [address] Mar, [facility] [id number] [place] [address] Feb, [facility] [id number] [place] [address] Feb, [facility] [id number] [place] [address] Jan, [facility] [id number] [place] [address] Jan, [facility] [id number] [place] [address] 17 Dec, 2015 Posttraumatic stress disorder F43.10 and Severe major depression with psychotic features F32.3 [facility] [id number] [place] [address] Dec, Type 2 diabetes mellitus with diabetic polyneuropathy E11.42 ; Chronic pain syndrome G89.4 and Acute right-sided low back pain with right-sided sciatica M54.41 [facility] [id number] [place] [address] Dec, [facility] [id number] [place] [address] Dec, [facility] [id number] [place] [address] Nov, [facility] [id number] [place] [address] Nov, [facility] [id number] [place] [address] Nov, [facility] [id number] [place] [address] Oct, [facility] [id number] [place] [address] Oct, [facility] [id number] [place] [address] Sep, Dental examination Z01.20 [facility] [address] [address] Sep, [facility] [id number] [place] [address] Sep, 2016 Type 2 diabetes mellitus with diabetic polyneuropathy E11.42 ; Chronic pain syndrome G89.4 ; Chronic prescription opiate use Z79.891 ; Injury of right index finger, sequela S69.91XS and Anejaculation N50.8 [facility] [address], [place] [address] Aug, [facility] [address] [address] Aug, [facility] [address], [place] [address] Aug, Cellulitis of finger of right hand L03.011 [facility] [address], [place] [address] July, [facility] [address], [place] [address] July, [facility] [address], [place] [address] Jun, Onychomycosis B35.1 [facility] [address], [place] [address] Jun, Severe major depression with psychotic features F32.3 and Posttraumatic stress disorder F43.10 [facility] [address], [place] [address] Jun, [facility] [address], [place] [address] Jun, [facility] [address], [place] [address] Jun, [facility] [address], [place] [address] May, Type 2 diabetes mellitus with diabetic polyneuropathy E11.42 [facility] [address], [place] [address] May, Type 2 diabetes mellitus with diabetic polyneuropathy E11.42 and Urinary hesitancy R39.11 [facility] [address], [place] [address] May, Type 2 diabetes mellitus with diabetic polyneuropathy E11.42 ; Left hip pain M25.552 and Benign prostatic hyperplasia with lower urinary tract symptoms, unspecified morphology N40.1 [facility] [id number] [place] [address] May, [facility] [id number] [place] [address] Apr, Severe major depression with psychotic features F32.3 and Posttraumatic stress disorder F43.10 [facility] [id number] [place] [address] Apr, [facility] [id number] [place] [address] Mar, [facility] [id number] [place] [address] Mar, Dysuria R30.0 and Urinary hesitancy R39.11 [facility] [id number] [place] [address] Mar, Onychomycosis B35.1 [facility] [id number] [place] [address] Mar, [facility] [id number] [place] [address] Feb, [facility] [id number] [place] [address] Jan, [facility] [id number] [place] [address] Jan, Posttraumatic stress disorder F43.10 and Severe major depression with psychotic features F32.3 [facility] [id number] [place] [address] Jan, [facility] [id number] [place] [address] Jan, Chronic pain syndrome G89.4 ; Type 2 diabetes mellitus with diabetic polyneuropathy E11.42 ; Decreased pedal pulses R09.89 and Paresthesia of both hands R20.2 [facility] [address], [place] [address] Dec, Posttraumatic stress disorder F43.10 and Severe major depression with psychotic features F32.3 [facility] [address], [place] [address] Dec, [facility] [address], [place] [address] Dec, [facility] [id number] [address] Dec, Onychomycosis B35.1 [facility] [id number] [place] [address] Dec, [facility] [address], [place] [address] Dec, [facility] [id number] [place] [address] Nov, [facility] [address], [place] [address] Oct, Depression, major, recurrent, moderate 296.32 and Posttraumatic stress disorder 309.81 [facility] [address], [place] [address] Oct, [facility] [address], [place] [address] Oct, [facility] [address], [place] [address] Oct, [facility] [address], [place] [address] Sep, Posttraumatic stress disorder 309.81 and Depression, major, recurrent, moderate 296.32 [facility] [address], [place] [address] 14 Sep, 2014 [facility] [address], [place] [address] Sep, Chronic airway obstruction, not elsewhere classified 496 [facility] [id number] [place] [address] Sep, Onychomycosis 110.1 and DM neuro manif type II 250.60 [facility] [id number] [place] [address] Sep, Chronic pain 338.29 ; Chronic airway obstruction, not elsewhere classified 496 ; Osteoarthritis of knees, bilateral 715.96 and On potassium wasting diuretic therapy V58.69 [facility] [id number] [place] [address] Sep, Insect bites 919.4 ; Sinusitis 473.9 and GERD (gastroesophageal reflux disease) 530.81 [facility] [id number] [place] [address] Aug, Depression, major, recurrent, moderate 296.32 and Posttraumatic stress disorder 309.81 [facility] [id number] [place] [address] Aug, [facility] [id number] [place] [address] Aug, [facility] [id number] [place] [id number] Aug, [facility] [id number] [place] [id number] July, Major depressive disorder, recurrent episode, moderate 296.32 and Posttraumatic stress disorder 309.81 [facility] [id number] [place] [id number] July, [facility] [id number] [place] [id number] July, [facility] [id number] [place] [id number] July, [facility] [address] [address] July, [facility] [place] [facility] [address] [id number] [place] [address] 14 Jun, 2014 [facility] [place] [facility] [address] [id number] [place] [address] 13 Jun, 2014 [facility] [place] [facility] [address] [id number] [place] [address] May, [facility] [place] [facility] [address] [id number] [place] [address] May, [facility] [place] [facility] [address] [id number] [place] [address] May, [facility] [place] [facility] [address] [id number] [place] [address] May, [facility] [place] [facility] [address] [id number] [place] [address] May, [facility] [place] [facility] [address] [id number] [place] [address] May, [facility] [place] [facility] [address] [id number] [place] [address] May, [facility] [place] [facility] [address] [id number] [place] [address] May, [facility] [place] [facility] [address] [id number] [place] [address] May, [facility] [place] [facility] [address] [id number] [place] [address] Apr, [facility] [place] [facility] [address] [id number] [place] [address] Apr, [facility] [place] [facility] [address] [id number] [place] [address] Apr, [facility] [place] [facility] [address] [id number] [place] [address] Apr, [facility] [place] [facility] [address] [id number] [place] [address] Apr, 2014 [facility] [place] [facility] [address] [id number] [place] [address] Apr, 2014 [facility] [place] [facility] [address] [id number] [place] [address] Apr, 2014 [facility] [place] [facility] [address] [id number] [place] [address] Apr, [facility] [place] [facility] [address] [id number] [place] [address] Apr, [facility] [place] [facility] [address] [id number] [place] [address] Mar, [facility] [place] [facility] [address] [id number] [place] [address] Mar, [facility] [place] [facility] [address] [id number] [place] [address] Mar, [facility] [place] [facility] [address] [id number] [place] [address] Mar, [facility] [place] [facility] [address] [id number] [place] [address] Mar, [facility] [place] [facility] [address] [id number] [place] [address] Mar, [facility] [place] [facility] [address] [id number] [place] [address] Mar, [facility] [place] [facility] [address] [id number] [place] [address] Mar, [facility] [place] [facility] [address] [id number] [place] [address] Mar, [facility] [place] [facility] [address] [id number] [place] [address] Mar, [facility] [place] [facility] [address] [id number] [place] [address] 14 Mar, 2014 [facility] [place] [facility] [address] [id number] [place] [address] 14 Mar, 2014 [facility] [place] [facility] [address] [id number] [place] [address] 14 Mar, 2014 [facility] [place] [facility] [address] [id number] [place] [address] 14 Mar, 2014 [facility] [place] [facility] [address] [id number] [place] [address] 14 Mar, 2014 [facility] [place] [facility] [address] [id number] [place] [address] Mar, [facility] [place] [facility] [address] [id number] [place] [address] Mar, [facility] [place] [facility] [address] [id number] [place] [address] Mar, [facility] [place] [facility] [address] [id number] [place] [address] 16 Feb, 2014 [facility] [place] [facility] [address] [id number] [place] [address] 16 Feb, 2014 [facility] [place] [facility] [address] [id number] [place] [address] 15 Feb, 2014 [facility] [place] [facility] [address] [id number] [place] [address] 15 Feb, 2014 [facility] [place] [facility] [address] [id number] [place] [address] 15 Feb, 2014 [facility] [place] [facility] [address] [id number] [place] [address] 15 Feb, 2014 [facility] [place] [facility] [address] [id number] [place] [address] Jan, [facility] [place] [facility] [address] [id number] [place] [address] Jan, [facility] [place] [facility] [address] [id number] [place] [address] Jan, [facility] [place] [facility] [address] [id number] [place] [address] Jan, [facility] [place] [facility] [address] [id number] [place] [address] Jan, [facility] [place] [facility] [address] [id number] [place] [address] Jan, [facility] [place] [facility] [address] [id number] [place] [address] Jan, [facility] [place] [facility] [address] [id number] [place] [address] Jan, [facility] [place] [facility] [address] [id number] [place] [address] Jan, [facility] [place] [facility] [address] [id number] [place] [address] Jan, [facility] [place] [facility] [address] [id number] [place] [address] Dec, [facility] [place] [facility] [address] [id number] [place] [address] Dec, [facility] [place] [facility] [address] [facility] [id number] [place] [address] Dec, [facility] [place] [facility] [address] [id number] [place] [address] Dec, [facility] [place] [facility] [address] [id number] [place] [address] 16 Nov, 2013 [facility] [place] [facility] [address] [id number] [place] [address] 16 Nov, 2013 [facility] [place] [facility] [address] [id number] [place] [address] Nov, [facility] [place] [facility] [address] [id number] [place] [address] Nov, [facility] [place] [facility] [address] [id number] [place] [address] Nov, [facility] [place] [facility] [address] [id number] [place] [address] Nov, [facility] [place] [facility] [address] [id number] [place] [address] Oct, [facility] [place] [facility] [address] [id number] [place] [address] Oct, [facility] [place] [facility] [address] [id number] [place] [address] Oct, [facility] [place] [facility] [address] [id number] [place] [address] Oct, [facility] [place] [facility] [address] [id number] [place] [address] Sep, [facility] [place] [facility] [address] [id number] [place] [address] Sep, [facility] [place] [facility] [address] [id number] [place] [address] Sep, [facility] [place] [facility] [address] [id number] [place] [address] Sep, [facility] [place] [facility] [address] [id number] [place] [address] Sep, [facility] [place] [facility] [address] [id number] [place] [address] Sep, [facility] [place] [facility] [address] [id number] [place] [address] July, [facility] [place] [facility] [address] [id number] [place] [address] July, [facility] [place] [facility] [address] [id number] [place] [address] July, [facility] [place] [facility] [address] [id number], [place] [address] July, [facility] [place] [facility] [address] [id number] [place] [address] Jun, [facility] [place] [facility] [address] [id number] [place] [address] Jun, [facility] [place] [facility] [address] [facility] [id number] [place] [address] Jun, [facility] [place] [facility] [address] [id number] [place] [address] Jun, [facility] [place] [facility] [address] [id number] [place] [address] Jun, [facility] [place] [facility] [address] [facility] [id number] [place] [address] Jun, [facility] [place] [facility] [address] [id number] [place] [address] May, [facility] [place] [facility] [address] [facility] [id number] [place] [address] May, [facility] [place] [facility] [address] [facility] [id number] [place] [address] Apr, [facility] [place] [facility] [address] [facility] [id number] [place] [address] Apr, [facility] [place] [facility] [address] [facility] [id number] [place] [address] Apr, [facility] [place] [facility] [address] [facility] [id number] [place] [address] Apr, [facility] [place] [facility] [address] [facility] [id number] [place] [address] Apr, [facility] [place] [facility] [address] [facility] [id number] [place] [address] Apr, [facility] [place] [facility] [address] [facility] [id number] [place] [address] Apr, [facility] [place] [facility] [address] [id number] [place] [address] Mar, [facility] [place] [facility] [address] [id number] [place] [address] Mar, [facility] [place] [facility] [address] [id number] [place] [address] Mar, [facility] [place] [facility] [address] [id number] [place] [address] Mar, [facility] [address] [id number] [place] [address] Mar, [facility] [place] [facility] [address] [id number] [place] [address] Mar, [facility] [address] [id number] [place] [address] Mar, [facility] [address] [id number] [place] [address] Mar, [facility] [place] [facility] [address] [id number] [place] [address] Feb, [facility] [place] [facility] [address] [id number] [place] [address] Feb, [facility] [place] [facility] [address] [id number] [place] [address] Feb, [facility] [place] [facility] [address] [id number], [place] [address] Feb, [facility] [place] [facility] [address] [id number] [place] [address] Feb, [facility] [place] [facility] [address] [id number] [place] [address] Feb, [facility] [place] [facility] [address] [id number] [place] [address] Feb, [facility] [place] [facility] [address] [id number], [place] [address] Jan, [facility] [place] [facility] [address] [id number] [place] [address] Jan, [facility] [place] [facility] [address] [id number], [place] [address] Jan, [facility] [place] [facility] [address] [id number] [place] [address] Jan, [facility] [place] [facility] [address] [id number], [place] [address] Jan, [facility] [place] [facility] [address] [id number] [place] [address] Jan, [facility] [place] [facility] [address] [id number] [id number] Jan, [facility] [place] [facility] [address] [id number] [id number] Jan, [facility] [place] [facility] [address] [id number], [place] [address] Dec, [facility] [place] [facility] [address] [id number], [place] [address] Dec, [facility] [place] [facility] [address] [id number], [place] [address] Dec, [facility] [place] [facility] [address] [id number], [place] [address] Dec, [facility] [place] [facility] [address] [id number], [place] [address] 31 Dec, 2012 [facility] [place] [facility] [address] [id number], [place] [address] Dec, [facility] [place] [facility] [address] [id number], [place] [address] Dec, [facility] [place] [facility] [address] [id number], [place] [address] 16 Dec, 2012 [facility] [place] [facility] [address] [id number] [place] [address] 16 Dec, 2012 [facility] [address] [id number] [place] [address] Dec, [facility] [place] [facility] [address] [id number] [place] [id number] Nov, [facility] [place] [facility] [address] [id number] [place] [id number] Nov, 2012 [facility] [place] [facility] [address] [id number] [place] [address] 24 Nov, 2012 [facility] [place] [facility] [address] [id number] [place] [address] 20 Nov, 2012 [facility] [place] [facility] [address] [id number] [place] [address] Nov, [facility] [place] [facility] [address] [id number] [place] [address] Nov, [facility] [place] [facility] [address] [id number] [place] [address] Nov, [facility] [place] [facility] [address] [id number] [place] [address] Nov, [facility] [place] [facility] [address] [id number] [place] [address] Oct, [facility] [place] [facility] [address] [id number] [place] [address] Oct, [facility] [place] [facility] [address] [id number] [place] [address] Oct, [facility] [place] [facility] [address] [id number] [place] [address] Sep, [facility] [place] [facility] [address] [id number] [place] [address] Sep, [facility] [place] [facility] [address] [id number] [place] [address] Sep, [facility] [place] [facility] [address] [id number] [place] [address] Sep, [facility] [address] [id number] [place] [address] Sep, [facility] [place] [facility] [address] [id number] [place] [address] Aug, [facility] [place] [facility] [address] [id number] [place] [address] Aug, [facility] [address] [id number] [place] [address] Aug, [facility] [place] [facility] [address] [id number] [place] [address] Aug, [facility] [address] [id number] [place] [address] Aug, [facility] [address] [id number] [place] [address] Aug, [facility] [address] [id number] [place] [address] July, [facility] [address] [id number] [place] [address] July, [facility] [address] [id number] [place] [address] July, [facility] [place] [facility] [address] [id number] [place] [address] July, [facility] [place] [facility] [address] [id number] [place] [address] July, [facility] [place] [facility] [address] [id number] [place] [address] July, [facility] [place] [facility] [address] [id number] [place] [address] Jun, [facility] [place] [facility] [address] [id number] [place] [address] Jun, [facility] [address] [id number] [place] [address] Jun, [facility] [address] [id number] [place] [address] Jun, [facility] [address] [id number] [place] [address] May, [facility] [address] [id number] [place] [address] May, [facility] [address] [id number] [place] [address] May, [facility] [address] [id number] [place] [address] Apr, [facility] [address] [id number] [place] [address] Mar, [facility] [address] [id number] [place] [address] Mar, [facility] [address] [id number] [place] [address] Mar, [facility] [address] [id number] [place] [address] Mar, [facility] [address] [id number], [place] [address] Mar, [facility] [place] [facility] [address] [id number], [place] [address] Feb, [facility] [place] [facility] [address] [id number] [place] [address] Feb, [facility] [place] [facility] [address] [id number] [place] [address] Feb, [facility] [place] [facility] [address] [id number] [place] [address] 17 Feb, 2012 [facility] [place] [facility] [address] [id number] [place] [address] Jan, [facility] [address] [id number] [place] [address] Jan, [facility] [address] [id number] [place] [address] Jan, [facility] [address] [id number] [place] [address] Jan, [facility] [address] [id number] [place] [address] Dec, [facility] [address] [id number] [place] [address] Dec, [facility] [address] [id number] [place] [address] Nov, [facility] [address] [id number] [place] [address] Oct, [facility] [address] [id number] [place] [address] Oct, [facility] [address] [id number] [place] [address] Oct, [facility] [address] [facility] [id number] [place] [address] Oct, [facility] [address] [id number] [place] [address] Oct, [facility] [address] [id number] [place] [address] Sep, [facility] [address] [id number] [place] [address] Sep, [facility] [address] [facility] [id number] [place] [address] Aug, [facility] [address] [place] [id number] Aug, [facility] [address] [id number] [place] [address] Aug, [facility] [place] [facility] [address] [id number] [place] [address] July, [facility] [place] [facility] [address] [id number] [place] [address] July, [facility] [place] [facility] [address] [id number] [place] [address] Jun, [facility] [place] [facility] [address] [id number] [place] [address] Jun, [facility] [place] [facility] [address] [id number] [place] [address] Jun, [facility] [place] [facility] [address] [id number] [place] [address] Jun, [facility] [place] [facility] [address] [id number] [place] [address] 15 Apr, 2011 [facility] [place] [facility] [address] [id number] [place] [address] Apr, [facility] [place] [facility] [address] [id number] [place] [address] Apr, [facility] [place] [facility] [address] [id number] [place] [address] Mar, [facility] [place] [facility] [address] [id number] [place] [address] Mar, [facility] [place] [facility] [address] [id number] [place] [address] Mar, [facility] [place] [facility] [address] [id number] [place] [address] Mar, [facility] [place] [facility] [address] [id number] [place] [address] Mar, [facility] [place] [facility] [address] [id number] [place] [address] 30 Jan, 2011 [facility] [place] [facility] [address] [id number] [place] [address] 07 Jan, 2011 [facility] [place] [facility] [address] [id number] [place] [address] Jan, [facility] [place] [facility] [address] [facility] [id number] [place] [address] 17 Mar, 2010 [facility] [place] [facility] [address] [id number] [place] [address] 11 Mar, 2010 [facility] [place] [facility] [address] [id number] [place] [address] Feb, [facility] [place] [facility] [address] [id number] [place] [address] 16 Feb, 2010 [facility] [place] [facility] [address] [id number] [place] [address] Feb, [facility] [place] [facility] [address] [id number] [place] [address] 17 Jan, 2010 [facility] [place] [facility] [address] [id number] [place] [address] 17 Jan, 2010 [facility] [place] [facility] [address] [facility] [id number] [place] [address] Dec, [facility] [place] [facility] [address] [id number], [place] [address] Dec, [facility] [place] [facility] [address] [id number], [place] [address] May, [facility] [place] [facility] [address] [id number] [place] [address] 10 Apr, 2009 [facility] [place] [facility] [address] [facility] [id number] [place] [address] Feb, [facility] [place] [facility] [address] [facility] [id number] [place] [address] Feb, [facility] [place] [facility] [address] [facility] [id number] [place] [address] 30 Jan, 2009 [facility] [address] [facility] [id number], [place] [address] Jan, [facility] [address] [facility] [id number], [place] [address] Jan, [facility] [address] [facility] [id number], [place] [address] Jan, [facility] [address] [facility] [id number], [place] [address] Jan, IMMUNIZATIONS No Known Immunizations SOCIAL HISTORY Never Assessed REASON FOR VISIT Referral Request PLAN OF CARE VITAL SIGNS MEDICATIONS Unknown [...] Center) 03/2013 Surgical History tooth extraction 05/17/17 Hospitalization History ED then admitted to [facility] [place]-cardiac stepdown-chest pain 02/2010 Hospitalization History Possible DVT-sono negative 06/2010 Hospitalization History cellulitis to bilat legs
--- OUTSIDE RECORDS SUMMARY | 2018-10-04 06:29 | XMS REPORT ---
Author Author ESTHER CHAVEZ [facility] Address [address] [place] [address] Care Team Providers Care [employer]ator [employer] Name Role Phone KATHYCIARA VILLEGASHANY Unavailable PROBLEMS Type Condition ICD9-CM Code EJB00-NH Code Onset Dates Condition Status SNOMED Code Problem Primary osteoarthritis of both knees M17.0 Active 234243003 Problem Nocturnal hypoxia G47.34 Active 041845718 Problem Pure hypercholesterolemia E78.0 Active 822343604 Problem Acute right-sided low back pain with right-sided sciatica M54.41 Active 63051859 Problem Type 2 diabetes mellitus with diabetic polyneuropathy E11.42 Active 200693379 Problem Posttraumatic stress disorder F43.10 Active 27257362 Problem Chronic systolic (congestive) heart failure I50.22 Active 587351703 Problem Severe major depression with psychotic features F32.3 Active 11440605 Problem Obesity, morbid, BMI 40.0-49.9 E66.01 Active 292005480 Problem Tobacco abuse Z72.0 Active 615826221 Problem Chronic systolic congestive heart failure I50.22 Active 553152947 Problem Primary insomnia F51.01 Active 6878988 Problem Essential hypertension I10 Active 68653181 Problem History of DVT (deep vein thrombosis) Z86.718 Active 728925027 Problem Chronic pain syndrome G89.4 Active 616764336 Problem BMI 45.0-49.9, adult Z68.42 Active 497633150 Problem Macrocytosis D75.89 Active 098538890 Problem Mood disorder F39 Active 28617990 Problem Mild episode of recurrent major depressive disorder F33.0 Active 009675537 Problem Non-ischemic cardiomyopathy I42.9 Active 87204959 Problem Chronic obstructive pulmonary disease, unspecified COPD type J44.9 Active 20147248 Problem Major depressive disorder, recurrent episode, unspecified severity F33.9 Active 91002382 Problem Gastroesophageal reflux disease, esophagitis presence not specified K21.9 Active 719945720 Problem MITCHELL treated with BiPAP G47.33 Active 90098815 Problem Chronic prescription opiate use Z79.891 Active 731413397 Problem PTSD (post-traumatic stress disorder) F43.10 Active 48442023 Problem History of weight loss surgery Z98.84 Active 299698528 ALLERGIES No Information ENCOUNTERS Encounter Location Date Diagnosis [place] [id number] [place] [address] 26 Jan, 2018 [place] [address] [address] Jan, [place] [address] [address] Dec, [place] [address] [address] Dec, Chronic pain syndrome G89.4 [place] [address] [address] Dec, Injury of left knee, subsequent encounter S89.92XD and Acute pain of left knee M25.562 [place] [address] [address] Dec, [place] [address] [address] Dec, Injury of left knee, initial encounter S89.92XA and BMI 45.0-49.9, adult Z68.42 [place] [address] [address] Nov, Chest discomfort R07.89 ; Shortness of breath R06.02 ; Chronic systolic congestive heart failure I50.22 and Type 2 diabetes mellitus with diabetic polyneuropathy E11.42 [place] [address] [address] Nov, Chronic pain syndrome G89.4 [place] [address] [address] Oct, BMI 45.0-49.9, adult Z68.42 ; Type 2 diabetes mellitus with diabetic polyneuropathy E11.42 ; Chronic pain syndrome G89.4 ; Gastroesophageal reflux disease, esophagitis presence not specified K21.9 ; Decreased pedal pulses R09.89 and Precordial pain R07.2 [place] [id number] [place] [address] Oct, [facility] [id number] [place] [address] Oct, Mood disorder F39 [place] [address] [address] Oct, Mood disorder F39 ; Posttraumatic stress disorder F43.10 and BMI 45.0-49.9, adult Z68.42 [facility] [id number] [place] [address] Sep, Primary osteoarthritis of both knees M17.0 and Chronic pain syndrome G89.4 [place] [id number] [place] [address] Sep, Mood disorder F39 and Posttraumatic stress disorder F43.10 [facility] [id number] [place] [address] Aug, Primary osteoarthritis of both knees M17.0 and Chronic pain syndrome G89.4 [facility] [id number] [place] [address] July, Primary osteoarthritis of both knees M17.0 and Chronic pain syndrome G89.4 [facility] [id number] [place] [address] July, Type 2 diabetes mellitus with diabetic polyneuropathy E11.42 ; Essential hypertension I10 ; Pure hypercholesterolemia E78.0 ; Chronic prescription opiate use Z79.891 ; Tobacco abuse Z72.0 ; Primary osteoarthritis of both knees M17.0 ; Primary insomnia F51.01 and BMI 45.0-49.9, adult Z68.42 [place] [id number] [place] [address] July, Medicare annual wellness visit, initial Z00.00 [...] specified K21.9 and Encounter for immunization Z23 [facility] [id number] [place] [address] July, Primary osteoarthritis of both knees M17.0 and Chronic pain syndrome G89.4 [facility] [id number] [place] [address] Jun, Infection of right ear H66.91 ; Wheezing on auscultation R06.2 and BMI 45.0-49.9, adult Z68.42 [facility] [id number] [place] [address] Jun, [place] [address] [address] Jun, Primary osteoarthritis of both knees M17.0 and Chronic pain syndrome G89.4 [facility] [id number] [place] [address] May, [facility] [id number] [place] [address] May, BMI 45.0-49.9, adult Z68.42 ; Mood disorder F39 and Posttraumatic stress disorder F43.10 [place] [address] [address] May, [place] [id number] [place] [address] May, Primary osteoarthritis of both knees M17.0 and Chronic pain syndrome G89.4 [place] [address] [place] [address] May, Mood disorder F39 [facility] [id number] [place] [address] Apr, Type 2 diabetes mellitus with diabetic polyneuropathy E11.42 [facility] [id number] [place] [address] Apr, [facility] [id number] [place] [address] Apr, Primary osteoarthritis of both knees M17.0 and Chronic pain syndrome G89.4 [facility] [id number] [place] [address] Apr, Mood disorder F39 [facility] [id number] [place] [address] Mar, Mood disorder F39 and Posttraumatic stress disorder F43.10 [facility] [id number] [place] [address] Mar, Primary osteoarthritis of both knees M17.0 and Chronic pain syndrome G89.4 [facility] [id number] [place] [address] Feb, Primary osteoarthritis of both knees M17.0 and Chronic pain syndrome G89.4 [facility] [id number] [place] [address] Feb, Mood disorder F39 [facility] [id number] [place] [address] Jan, Type 2 diabetes mellitus with diabetic polyneuropathy E11.42 ; Primary osteoarthritis of both knees M17.0 ; Mood disorder F39 ; Obesity, morbid, BMI 40.0-49.9 E66.01 ; Chronic prescription opiate use Z79.891 ; Acute suppurative otitis media of both ears without spontaneous rupture of tympanic membranes, recurrence not specified H66.003 and BMI 45.0-49.9, adult Z68.42 [facility] [id number] [place] [address] Jan, Primary osteoarthritis of both knees M17.0 and Chronic pain syndrome G89.4 [facility] [id number] [place] [address] Dec, Mood disorder F39 and Posttraumatic stress disorder F43.10 [facility] [id number] [place] [address] 13 Dec, 2016 Primary osteoarthritis of both knees M17.0 and Chronic pain syndrome G89.4 [facility] [id number] [place] [address] 18 Nov, 2016 Chronic pain syndrome G89.4 [facility] [id number] [place] [address] 15 Nov, 2016 Primary osteoarthritis of both knees M17.0 and Chronic pain syndrome G89.4 [facility] [id number] [place] [address] 13 Nov, 2016 Type 2 diabetes mellitus with diabetic polyneuropathy E11.42 and Chronic pain syndrome G89.4 [facility] [id number] [place] [address] 12 Nov, 2016 Posttraumatic stress disorder F43.10 and Mood disorder F39 [facility] [id number] [place] [address] Oct, Chronic pain syndrome G89.4 [facility] [id number] [place] [address] 16 Oct, 2016 Type 2 diabetes mellitus with diabetic polyneuropathy E11.42 ; BMI 45.0-49.9, adult Z68.42 ; Primary osteoarthritis of both knees M17.0 and Skin lesion L98.9 [facility] [id number] [place] [address] Oct, Chronic pain syndrome G89.4 [facility] [id number] [place] [address] Sep, Chronic pain syndrome G89.4 [facility] [address] [place] [address] Sep, [facility] [id number] [place] [address] Sep, Chronic pain syndrome G89.4 [facility] [id number] [place] [address] Aug, Chronic pain syndrome G89.4 [facility] [id number] [place] [address] Aug, [facility] [id number] [place] [address] Aug, Macrocytosis D75.89 and Pure hypercholesterolemia E78.0 [facility] [id number] [place] [address] Aug, Pure hypercholesterolemia E78.0 [place] [id number] [place] [address] Aug, Macrocytosis D75.89 [facility] [id number] [place] [address] Aug, Pure hypercholesterolemia E78.0 ; Type 2 diabetes mellitus with diabetic polyneuropathy E11.42 ; MITCHELL treated with BiPAP G47.33 and Chronic pain syndrome G89.4 [facility] [address] [place] [address] Aug, [facility] [id number] [place] [address] Aug, Hemorrhoids, unspecified hemorrhoid type K64.9 [facility] [id number] [place] [address] Aug, Chronic pain syndrome G89.4 ; Type 2 diabetes mellitus with diabetic polyneuropathy E11.42 ; Hemorrhoids, unspecified hemorrhoid type K64.9 ; Tobacco abuse Z72.0 and Primary osteoarthritis of both knees M17.0 [facility] [place] [facility] [address] [place] [address] July, Chronic pain syndrome G89.4 [facility] [id number] [place] [address] July, [facility] [id number] [place] [address] Jun, Chronic pain syndrome G89.4 [facility] [address], [place] [address] Jun, Chronic pain syndrome G89.4 [facility] [id number] [place] [address] Jun, Severe major depression with psychotic features F32.3 and Posttraumatic stress disorder F43.10 [facility] [id number] [place] [address] Jun, Chronic pain syndrome G89.4 [facility] [id number] [place] [address] Jun, [facility] [id number] [place] [address] May, Chronic pain syndrome G89.4 [facility] [address], [place] [address] May, Tobacco abuse Z72.0 [facility] [id number] [place] [address] May, [facility] [id number] [place] [address] Apr, Chronic pain syndrome G89.4 [facility] [id number] [place] [address] Apr, [facility] [address], [place] [address] Apr, Right foot pain M79.671 [facility] [address], [place] [address] Mar, Type 2 diabetes mellitus with diabetic polyneuropathy E11.42 ; MITCHELL treated with BiPAP G47.33 ; Pure hypercholesterolemia E78.0 ; Chronic pain syndrome G89.4 ; Tobacco abuse Z72.0 and Obesity, morbid, BMI 40.0-49.9 E66.01 [facility] [id number] [place] [address] Mar, [facility] [id number] [place] [address] Mar, [facility] [id number] [place] [address] Mar, [facility] [id number] [place] [address] Mar, [facility] [id number] [place] [address] Mar, [facility] [id number] [place] [address] Mar, Severe major depression with psychotic features F32.3 and Posttraumatic stress disorder F43.10 [facility] [address], [place] [address] Mar, [facility] [address], [place] [address] Feb, [facility] [address], [place] [address] Feb, [facility] [address], [place] [address] Jan, [facility] [address], [place] [address] Jan, [facility] [address], [place] [address] Dec, Posttraumatic stress disorder F43.10 and Severe major depression with psychotic features F32.3 [facility] [id number] [address] Dec, Type 2 diabetes mellitus with diabetic polyneuropathy E11.42 ; Chronic pain syndrome G89.4 and Acute right-sided low back pain with right-sided sciatica M54.41 [facility] [id number] [place] [address] Dec, [facility] [id number] [place] [address] Dec, [facility] [id number] [place] [address] Nov, [facility] [id number] [place] [address] Nov, [facility] [id number] [place] [address] Nov, [facility] [id number] [place] [address] Oct, [facility] [id number] [place] [address] Oct, [facility] [id number] [place] [address] Sep, Dental examination Z01.20 [facility] [id number] [place] [address] Sep, [facility] [address], [place] [address] Sep, Type 2 diabetes mellitus with diabetic polyneuropathy E11.42 ; Chronic pain syndrome G89.4 ; Chronic prescription opiate use Z79.891 ; Injury of right index finger, sequela S69.91XS and Anejaculation N50.8 [facility] [address], [place] [address] Aug, [facility] [id number] [place] [address] Aug, [facility] [id number] [place] [address] Aug, Cellulitis of finger of right hand L03.011 [facility] [id number] [place] [address] July, [facility] [id number] [place] [address] July, [facility] [id number] [place] [address] Jun, Onychomycosis B35.1 [place] [id number] [place] [address] Jun, Severe major depression with psychotic features F32.3 and Posttraumatic stress disorder F43.10 [place] [id number] [place] [address] Jun, [place] [id number] [place] [address] Jun, [place] [id number] [place] [address] Jun, [place] [id number] [place] [address] May, Type 2 diabetes mellitus with diabetic polyneuropathy E11.42 [place] [id number] [place] [address] May, Type 2 diabetes mellitus with diabetic polyneuropathy E11.42 and Urinary hesitancy R39.11 [place] [id number] [place] [address] May, Type 2 diabetes mellitus with diabetic polyneuropathy E11.42 ; Left hip pain M25.552 and Benign prostatic hyperplasia with lower urinary tract symptoms, unspecified morphology N40.1 [place] [id number] [place] [address] May, [facility] [id number] [place] [address] Apr, Severe major depression with psychotic features F32.3 and Posttraumatic stress disorder F43.10 [facility] [id number] [place] [address] 08 Apr, 2015 [facility] [id number] [place] [address] Mar, [facility] [id number] [place] [address] Mar, Dysuria R30.0 and Urinary hesitancy R39.11 [facility] [id number] [place] [address] Mar, Onychomycosis B35.1 [facility] [id number] [place] [address] Mar, [facility] [id number] [place] [address] Feb, [facility] [id number] [place] [address] Jan, [facility] [id number] [place] [address] Jan, Posttraumatic stress disorder F43.10 and Severe major depression with psychotic features F32.3 [facility] [id number] [place] [address] Jan, [facility] [id number] [place] [address] Jan, Chronic pain syndrome G89.4 ; Type 2 diabetes mellitus with diabetic polyneuropathy E11.42 ; Decreased pedal pulses R09.89 and Paresthesia of both hands R20.2 [facility] [id number] [place] [address] Dec, Posttraumatic stress disorder F43.10 and Severe major depression with psychotic features F32.3 [facility] [address], [place] [address] Dec, [facility] [address], [place] [address] Dec, [facility] [id number] [place] [address] Dec, Onychomycosis B35.1 [facility] [address], [place] [address] Dec, [facility] [id number] [place] [address] Dec, [facility] [id number] [place] [address] Nov, [facility] [id number] [place] [address] Oct, Depression, major, recurrent, moderate 296.32 and Posttraumatic stress disorder 309.81 [facility] [id number] [place] [address] Oct, [facility] [address], [place] [address] Oct, [facility] [address], [place] [address] Oct, [facility] [id number] [place] [address] Sep, Posttraumatic stress disorder 309.81 and Depression, major, recurrent, moderate 296.32 [facility] [id number] [place] [address] Sep, [facility] [address], [place] [address] Sep, Chronic airway obstruction, not elsewhere classified 496 [facility] [address] [address] Sep, Onychomycosis 110.1 and DM neuro manif type II 250.60 [place] [address] [address] Sep, Chronic pain 338.29 ; Chronic airway obstruction, not elsewhere classified 496 ; Osteoarthritis of knees, bilateral 715.96 and On potassium wasting diuretic therapy V58.69 [place] [address] [address] Sep, Insect bites 919.4 ; Sinusitis 473.9 and GERD (gastroesophageal reflux disease) 530.81 [place] [address] [address] Aug, Depression, major, recurrent, moderate 296.32 and Posttraumatic stress disorder 309.[address] [address] Aug, [facility] [address] [address] Aug, [place] [address] [address] Aug, [place] [address] [address] July, Major depressive disorder, recurrent episode, moderate 296.32 and Posttraumatic stress disorder 309.81 [place] [id number] [place] [address] July, [facility] [address] [address] July, [facility] [address] [address] July, [facility] [address] [address] July, [facility] [address] [address] 14 Jun, 2014 [facility] [place] [facility] [address] [id number] [place] [address] 13 Jun, 2014 [facility] [place] [facility] [address] [id number] [place] [address] 20 May, 2014 [facility] [place] [facility] [address] [facility] [id number] [place] [address] 20 May, 2014 [facility] [place] [facility] [address] [id number] [place] [address] 18 May, 2014 [facility] [place] [facility] [address] [id number] [place] [address] 18 May, 2014 [facility] [place] [facility] [address] [facility] [id number] [place] [address] 18 May, 2014 [facility] [place] [facility] [address] [facility] [id number] [place] [address] May, [facility] [place] [facility] [address] [id number] [place] [address] May, [facility] [place] [facility] [address] [id number] [place] [address] 04 May, 2014 [facility] [place] [facility] [address] [facility] [id number] [place] [address] May, [facility] [place] [facility] [address] [id number] [place] [address] Apr, 2014 [facility] [place] [facility] [address] [id number] [place] [address] Apr, 2014 [facility] [place] [facility] [address] [id number] [place] [address] Apr, 2014 [facility] [place] [facility] [address] [id number] [place] [address] Apr, 2014 [facility] [place] [facility] [address] [facility] [id number] [place] [address] Apr, 2014 [facility] [place] [facility] [address] [id number] [place] [address] Apr, [facility] [place] [facility] [address] [id number] [place] [address] Apr, [facility] [place] [facility] [address] [id number] [place] [address] Apr, [facility] [place] [facility] [address] [id number] [place] [address] Apr, [facility] [place] [facility] [address] [id number] [place] [address] Mar, [facility] [place] [facility] [address] [id number] [place] [address] Mar, [facility] [place] [facility] [address] [id number] [place] [address] Mar, [facility] [place] [facility] [address] [id number] [place] [address] Mar, [facility] [place] [facility] [address] [id number] [place] [address] Mar, [facility] [place] [facility] [address] [id number] [place] [address] Mar, [facility] [place] [facility] [address] [id number] [place] [address] Mar, [facility] [place] [facility] [address] [id number] [place] [address] Mar, [facility] [place] [facility] [address] [id number] [place] [address] Mar, [facility] [place] [facility] [address] [id number] [place] [address] Mar, [facility] [place] [facility] [address] [id number] [place] [address] 14 Mar, 2014 [facility] [place] [facility] [address] [id number] [place] [address] 14 Mar, 2014 [facility] [place] [facility] [address] [id number] [place] [address] 14 Mar, 2014 [facility] [place] [facility] [address] [id number] [place] [address] 14 Mar, 2014 [facility] [place] [facility] [address] [id number] [place] [address] 14 Mar, 2014 [facility] [place] [facility] [address] [id number] [place] [address] 14 Mar, 2014 [facility] [place] [facility] [address] [id number] [place] [address] Mar, [facility] [place] [facility] [address] [id number] [place] [address] 09 Mar, 2014 [facility] [place] [facility] [address] [id number] [place] [address] 16 Feb, 2014 [facility] [place] [facility] [address] [id number] [place] [address] 16 Feb, 2014 [facility] [place] [facility] [address] [id number] [place] [address] 15 Feb, 2014 [facility] [place] [facility] [address] [id number] [place] [address] 15 Feb, 2014 [facility] [place] [facility] [address] [id number] [place] [address] 15 Feb, 2014 [facility] [place] [facility] [address] [id number] [place] [address] 15 Feb, 2014 [facility] [place] [facility] [address] [id number] [place] [address] Jan, [facility] [place] [facility] [address] [id number] [place] [address] Jan, [facility] [place] [facility] [address] [id number] [place] [address] 17 Jan, 2014 [facility] [place] [facility] [address] [id number] [place] [address] Jan, [facility] [place] [facility] [address] [id number] [place] [address] Jan, [facility] [place] [facility] [address] [id number] [place] [address] Jan, [facility] [place] [facility] [address] [id number] [place] [address] Jan, [facility] [place] [facility] [address] [id number] [place] [address] Jan, [facility] [place] [facility] [address] [id number] [place] [address] Jan, [facility] [place] [facility] [address] [id number] [place] [address] Jan, [facility] [place] [facility] [address] [id number] [place] [address] Dec, [facility] [place] [facility] [address] [id number] [place] [address] Dec, [facility] [place] [facility] [address] [id number] [place] [address] Dec, [facility] [place] [facility] [address] [facility] [id number] [place] [address] Dec, [facility] [place] [facility] [address] [id number] [place] [address] 16 Nov, 2013 [facility] [place] [facility] [address] [id number] [place] [address] 16 Nov, 2013 [facility] [place] [facility] [address] [id number] [place] [address] Nov, 2013 [facility] [place] [facility] [address] [id number] [place] [address] Nov, 2013 [facility] [place] [facility] [address] [id number] [place] [address] Nov, [facility] [place] [facility] [address] [id number] [place] [address] Nov, [facility] [place] [facility] [address] [id number] [place] [address] Oct, [facility] [place] [facility] [address] [id number] [place] [address] Oct, [facility] [place] [facility] [address] [id number] [place] [address] Oct, [facility] [place] [facility] [address] [id number] [place] [address] Oct, [facility] [place] [facility] [address] [id number] [place] [address] Sep, [facility] [place] [facility] [address] [id number] [place] [address] Sep, [facility] [place] [facility] [address] [id number] [place] [address] Sep, [facility] [place] [facility] [address] [id number] [place] [address] Sep, [facility] [place] [facility] [address] [id number] [place] [address] Sep, [facility] [place] [facility] [address] [id number] [place] [address] Sep, [facility] [place] [facility] [address] [id number] [place] [address] July, [facility] [place] [facility] [address] [id number] [place] [address] July, [facility] [place] [facility] [address] [id number] [place] [address] July, [facility] [place] [facility] [address] [id number] [place] [address] July, [facility] [place] [facility] [address] [id number] [place] [address] Jun, [facility] [place] [facility] [address] [id number] [place] [address] Jun, [facility] [place] [facility] [address] [facility] [id number] [place] [address] Jun, [facility] [place] [facility] [address] [facility] [id number] [place] [address] Jun, [facility] [place] [facility] [address] [id number] [place] [address] Jun, [facility] [place] [facility] [address] [id number] [place] [address] Jun, [facility] [place] [facility] [address] [facility] [id number] [place] [address] May, [facility] [place] [facility] [id number] [place] [address] May, [facility] [place] [facility] [address] [facility] [id number] [place] [address] Apr, [facility] [place] [facility] [id number] [address] Apr, [facility] [place] [facility] [address] [facility] [id number] [place] [address] Apr, [facility] [place] [facility] [id number] [place] [address] Apr, [facility] [place] [facility] [address] [facility] [id number] [place] [address] Apr, [facility] [place] [facility] [address] [facility] [id number] [place] [address] Apr, [facility] [place] [facility] [address] [facility] [id number] [place] [address] Apr, [facility] [place] [facility] [id number] [place] [address] Mar, [facility] [place] [facility] [address] [id number] [place] [address] Mar, [facility] [place] [facility] [address] [id number] [place] [address] Mar, [facility] [place] [facility] [address] [id number] [place] [address] Mar, [facility] [place] [facility] [address] [id number] [place] [address] Mar, [facility] [address] [id number] [place] [address] Mar, [facility] [place] [facility] [address] [id number] [place] [address] Mar, [facility] [address] [id number] [place] [address] Mar, [facility] [address] [id number] [place] [address] Feb, [facility] [place] [facility] [address] [id number] [place] [address] Feb, [facility] [place] [facility] [address] [id number] [place] [address] Feb, [facility] [place] [facility] [address] [id number] [place] [address] Feb, [facility] [place] [facility] [address] [id number], [place] [address] Feb, [facility] [place] [facility] [address] [id number] [place] [address] Feb, [facility] [place] [facility] [address] [id number] [place] [address] Feb, [facility] [place] [facility] [address] [id number] [place] [address] 29 Jan, 2013 [facility] [place] [facility] [address] [id number], [place] [address] Jan, [facility] [place] [facility] [address] [id number], [place] [address] Jan, [facility] [place] [facility] [address] [id number], [place] [address] Jan, [facility] [place] [facility] [address] [id number], [place] [address] Jan, [facility] [place] [facility] [address] [id number], [place] [address] Jan, [facility] [place] [facility] [address] [id number] [id number] Jan, [facility] [place] [facility] [address] [id number][place] [id number] Jan, [facility] [place] [facility] [address] [id number], [place] [address] Dec, [facility] [place] [facility] [address] [id number], [place] [address] Dec, [facility] [place] [facility] [address] [id number], [place] [address] Dec, [facility] [place] [facility] [address] [id number], [place] [address] Dec, [facility] [place] [facility] [address] [id number], [place] [address] Dec, [facility] [place] [facility] [address] [id number], [place] [address] Dec, [facility] [place] [facility] [address] [id number], [place] [address] Dec, [facility] [place] [facility] [address] [id number], [place] [address] Dec, [facility] [place] [facility] [address] [id number], [place] [address] Dec, [facility] [place] [facility] [address] [id number] [place] [address] Dec, [facility] [place] [facility] [address] [id number] [place] [id number] Nov, [facility] [place] [facility] [address] [id number] [place] [id number] Nov, [facility] [address] [id number] [place] [address] 24 Nov, 2012 [facility] [place] [facility] [address] [id number] [place] [address] 20 Nov, 2012 [facility] [address] [id number] [place] [address] Nov, [facility] [place] [facility] [address] [id number] [place] [address] Nov, [facility] [address] [id number] [place] [address] Nov, [facility] [address] [id number] [place] [address] Nov, [facility] [address] [id number] [place] [address] Oct, [facility] [place] [facility] [address] [id number] [place] [address] Oct, [facility] [place] [facility] [address] [id number] [place] [address] Oct, [facility] [place] [facility] [address] [id number] [place] [address] Sep, [facility] [place] [facility] [address] [id number] [place] [address] Sep, [facility] [place] [facility] [address] [id number] [place] [address] Sep, [facility] [place] [facility] [address] [id number] [place] [address] Sep, [facility] [place] [facility] [address] [id number] [place] [address] Sep, [facility] [address] [id number] [place] [address] Aug, [facility] [place] [facility] [address] [id number] [place] [address] Aug, [facility] [place] [facility] [address] [id number] [place] [address] Aug, [facility] [address] [id number] [place] [address] Aug, [facility] [place] [facility] [address] [id number] [place] [address] Aug, [facility] [address] [id number] [place] [address] Aug, [facility] [address] [id number] [place] [address] July, [facility] [address] [id number] [place] [address] July, [facility] [address] [id number] [place] [address] July, [facility] [place] [facility] [address] [id number] [place] [address] July, [facility] [place] [facility] [address] [id number] [place] [address] July, [facility] [place] [facility] [address] [id number] [place] [address] July, [facility] [place] [facility] [address] [id number] [place] [address] Jun, [facility] [place] [facility] [address] [id number] [place] [address] Jun, [facility] [place] [facility] [address] [id number] [place] [address] Jun, [facility] [address] [id number] [place] [address] Jun, [facility] [address] [id number] [place] [address] May, [facility] [address] [id number] [place] [address] May, [facility] [place] [facility] [address] [id number] [place] [address] May, [facility] [address] [id number] [place] [address] Apr, [facility] [address] [id number] [place] [address] Mar, [facility] [address] [id number] [place] [address] Mar, [facility] [place] [facility] [address] [id number] [place] [address] 17 Mar, 2012 [facility] [address] [id number] [place] [address] 16 Mar, 2012 [facility] [address] [id number] [place] [address] Mar, [facility] [address] [id number], [place] [address] Feb, [facility] [place] [facility] [address] [id number] [place] [address] 31 Feb, 2012 [facility] [place] [facility] [address] [id number] [place] [address] Feb, [facility] [place] [facility] [address] [id number] [place] [address] 17 Feb, 2012 [facility] [place] [facility] [address] [id number] [place] [address] Jan, [facility] [place] [facility] [address] [id number] [place] [address] Jan, [facility] [address] [id number] [place] [address] Jan, [facility] [address] [id number] [place] [address] Jan, [facility] [address] [id number] [place] [address] Dec, [facility] [address] [id number] [place] [address] Dec, [facility] [address] [id number] [place] [address] Nov, [facility] [address] [id number] [place] [address] Oct, [facility] [address] [id number] [place] [address] Oct, [facility] [address] [id number] [place] [address] Oct, [facility] [address] [id number] [place] [address] Oct, [facility] [address] [id number] [place] [address] Oct, [facility] [address] [id number] [place] [address] Sep, [facility] [address] [id number] [place] [address] Sep, [facility] [address] [id number] [place] [address] Aug, [address] [id number] Aug, [facility] [address] [id number] [place] [address] Aug, [facility] [address] [id number] [place] [address] July, [facility] [address] [id number] [place] [address] July, [facility] [place] [facility] [address] [id number] [place] [address] Jun, [facility] [place] [facility] [address] [id number] [place] [address] Jun, [facility] [place] [facility] [address] [id number] [place] [address] 16 Jun, 2011 [facility] [place] [facility] [address] [id number] [place] [address] Jun, [facility] [place] [facility] [address] [id number] [place] [address] 15 Apr, 2011 [facility] [place] [facility] [address] [id number] [place] [address] 15 Apr, 2011 [facility] [place] [facility] [address] [id number] [place] [address] Apr, [facility] [place] [facility] [address] [id number] [place] [address] Mar, [facility] [place] [facility] [address] [id number] [place] [address] Mar, [facility] [place] [facility] [address] [id number] [place] [address] Mar, [facility] [place] [facility] [address] [id number] [place] [address] Mar, [facility] [place] [facility] [address] [id number] [place] [address] Mar, [facility] [place] [facility] [address] [id number] [place] [address] Jan, [facility] [place] [facility] [address] [id number] [place] [address] 07 Jan, 2011 [facility] [place] [facility] [address] [id number] [place] [address] 03 Jan, 2011 [facility] [place] [facility] [address] [id number] [place] [address] 17 Mar, 2010 [facility] [place] [facility] [address] [facility] [id number] [place] [address] 11 Mar, 2010 [facility] [place] [facility] [address] [id number] [place] [address] Feb, [facility] [place] [facility] [address] [id number] [place] [address] Feb, [facility] [place] [facility] [address] [id number] [place] [address] Feb, [facility] [place] [facility] [address] [id number] [place] [address] Jan, [facility] [place] [facility] [address] [id number] [place] [address] Jan, [facility] [place] [facility] [address] [id number] [place] [address] Dec, [facility] [place] [facility] [address] [id number] [place] [address] Dec, [facility] [place] [facility] [address] [id number], [place] [address] May, [facility] [place] [facility] [address] [id number], [place] [address] 10 Apr, 2009 [facility] [place] [facility] [address] [id number] [place] [address] Feb, [facility] [place] [facility] [address] [facility] [id number] [place] [address] Feb, [facility] [place] [facility] [address] [id number] [place] [address] Jan, [facility] [place] [facility] [address] [facility] [id number] [place] [address] Jan, [facility] [address] [facility] [id number] [place] [address] Jan, [facility] [address] [facility] [id number] [place] [address] Jan, [facility] [address] [facility] [id number] [place] [address] Jan, IMMUNIZATIONS No Known Immunizations SOCIAL HISTORY Never Assessed REASON FOR VISIT Requests return call PLAN OF CARE VITAL SIGNS MEDICATIONS Unknown [...] Hospitalization History ED then admitted to [facility]-cardiac stepdown-chest pain 02/2010 Hospitalization History Possible DVT-sono negative 06/2010 Hospitalization History cellulitis to bilat legs
[2018-10-04] MEDS ORDERED: ceFAZolin INJECTION 1,000 MG in WATER (STERILE) FOR INJECTION 10 ML IV ONE (06:30)
--- OUTSIDE RECORDS SUMMARY | 2018-10-04 06:30 | XMS REPORT ---
Author Author ESTHER CHAVEZ [facility] [address] Address [address] [place] [address] Care Team Providers Care Elementary Reading Tutor Name Role Phone KATHYCIARAESTHER Unavailable PROBLEMS Type Condition ICD9-CM Code IRK24-IO Code Onset Dates Condition Status SNOMED Code Problem Primary osteoarthritis of both knees M17.0 Active 677223188 Problem Nocturnal hypoxia G47.34 Active 264018848 Problem Pure hypercholesterolemia E78.0 Active 670241525 Problem Acute right-sided low back pain with right-sided sciatica M54.41 Active 38731743 Problem Type 2 diabetes mellitus with diabetic polyneuropathy E11.42 Active 845900355 Problem Posttraumatic stress disorder F43.10 Active 43898400 Problem Chronic systolic (congestive) heart failure I50.22 Active 349177109 Problem Severe major depression with psychotic features F32.3 Active 47513286 Problem Obesity, morbid, BMI 40.0-49.9 E66.01 Active 086260046 Problem Tobacco abuse Z72.0 Active 120954430 Problem Chronic systolic congestive heart failure I50.22 Active 155824508 Problem Primary insomnia F51.01 Active 3302134 Problem Essential hypertension I10 Active 37791568 Problem History of DVT (deep vein thrombosis) Z86.718 Active 848500510 Problem Chronic pain syndrome G89.4 Active 366923938 Problem BMI 45.0-49.9, adult Z68.42 Active 156073503 Problem Macrocytosis D75.89 Active 262647776 Problem Mood disorder F39 Active 83869722 Problem Mild episode of recurrent major depressive disorder F33.0 Active 256742864 Problem Non-ischemic cardiomyopathy I42.9 Active 76392697 Problem Chronic obstructive pulmonary disease, unspecified COPD type J44.9 Active 96529746 Problem Major depressive disorder, recurrent episode, unspecified severity F33.9 Active 45597876 Problem Gastroesophageal reflux disease, esophagitis presence not specified K21.9 Active 937246515 Problem MITCHELL treated with BiPAP G47.33 Active 40228728 Problem Chronic prescription opiate use Z79.891 Active 532475988 Problem PTSD (post-traumatic stress disorder) F43.10 Active 02359957 Problem History of weight loss surgery Z98.84 Active 609770347 ALLERGIES No Information ENCOUNTERS Encounter Location Date Diagnosis [facility] [id number] [place] [address] Jan, [facility] [address] [address] Dec, [facility] [address] [address] Dec, Chronic pain syndrome G89.4 [facility] [address] [address] Dec, Injury of left knee, subsequent encounter S89.92XD and Acute pain of left knee M25.562 [facility] [address] [address] Dec, [facility] [address] [address] Dec, Injury of left knee, initial encounter S89.92XA and BMI 45.0-49.9, adult Z68.42 [facility] [address] [address] Nov, Chest discomfort R07.89 ; Shortness of breath R06.02 ; Chronic systolic congestive heart failure I50.22 and Type 2 diabetes mellitus with diabetic polyneuropathy E11.42 [facility] [id number] [place] [address] Nov, Chronic pain syndrome G89.4 [facility] [address] [address] Oct, BMI 45.0-49.9, adult Z68.42 ; Type 2 diabetes mellitus with diabetic polyneuropathy E11.42 ; Chronic pain syndrome G89.4 ; Gastroesophageal reflux disease, esophagitis presence not specified K21.9 ; Decreased pedal pulses R09.89 and Precordial pain R07.2 [facility] [address], [place] [address] Oct, [facility] [id number] [place] [address] Oct, Mood disorder F39 [facility] [id number] [place] [address] Oct, Mood disorder F39 ; Posttraumatic stress disorder F43.10 and BMI 45.0-49.9, adult Z68.42 [facility] [id number] [place] [address] Sep, Primary osteoarthritis of both knees M17.0 and Chronic pain syndrome G89.4 [facility] [id number] [place] [address] Sep, Mood disorder F39 and Posttraumatic stress disorder F43.10 [facility] [id number] [place] [address] Aug, Primary osteoarthritis of both knees M17.0 and Chronic pain syndrome G89.4 [facility] [id number] [place] [address] July, Primary osteoarthritis of both knees M17.0 and Chronic pain syndrome G89.4 [facility] [id number] [place] [address] July, Type 2 diabetes mellitus with diabetic polyneuropathy E11.42 ; Essential hypertension I10 ; Pure hypercholesterolemia E78.0 ; Chronic prescription opiate use Z79.891 ; Tobacco abuse Z72.0 ; Primary osteoarthritis of both knees M17.0 ; Primary insomnia F51.01 and BMI 45.0-49.9, adult Z68.42 [facility] [address], [place] [address] July, Medicare annual wellness visit, initial Z00.00 [...] immunization Z23 [facility] [id number] [place] [address] July, Primary osteoarthritis of both knees M17.0 and Chronic pain syndrome G89.4 [facility] [id number] [place] [address] Jun, Infection of right ear H66.91 ; Wheezing on auscultation R06.2 and BMI 45.0-49.9, adult Z68.42 [facility] [id number] [place] [address] Jun, [facility] [id number] [place] [address] Jun, Primary osteoarthritis of both knees M17.0 and Chronic pain syndrome G89.4 [facility] [id number] [place] [address] May, [facility] [id number] [place] [address] May, BMI 45.0-49.9, adult Z68.42 ; Mood disorder F39 and Posttraumatic stress disorder F43.10 [facility] [id number] [place] [address] May, [facility] [address] [address] May, Primary osteoarthritis of both knees M17.0 and Chronic pain syndrome G89.4 [facility] [id number] [place] [address] May, Mood disorder F39 [facility] [address], [place] [address] Apr, Type 2 diabetes mellitus with diabetic polyneuropathy E11.42 [facility] [id number] [place] [address] Apr, [facility] [id number] [place] [address] Apr, Primary osteoarthritis of both knees M17.0 and Chronic pain syndrome G89.4 [facility] [id number] [place] [address] Apr, Mood disorder F39 [facility] [id number] [place] [address] Mar, Mood disorder F39 and Posttraumatic stress disorder F43.10 [facility] [id number] [place] [address] Mar, Primary osteoarthritis of both knees M17.0 and Chronic pain syndrome G89.4 [facility] [id number] [place] [address] Feb, Primary osteoarthritis of both knees M17.0 and Chronic pain syndrome G89.4 [facility] [address], [place] [address] Feb, Mood disorder F39 [facility] [id number] [place] [address] Jan, Type 2 diabetes mellitus with diabetic polyneuropathy E11.42 ; Primary osteoarthritis of both knees M17.0 ; Mood disorder F39 ; Obesity, morbid, BMI 40.0-49.9 E66.01 ; Chronic prescription opiate use Z79.891 ; Acute suppurative otitis media of both ears without spontaneous rupture of tympanic membranes, recurrence not specified H66.003 and BMI 45.0-49.9, adult Z68.42 [facility] [address], [place] [address] Jan, Primary osteoarthritis of both knees M17.0 and Chronic pain syndrome G89.4 [facility] [address], [place] [address] Dec, Mood disorder F39 and Posttraumatic stress disorder F43.10 [facility] [id number] [place] [address] 13 Dec, 2016 Primary osteoarthritis of both knees M17.0 and Chronic pain syndrome G89.4 [facility] [id number] [place] [address] 18 Nov, 2016 Chronic pain syndrome G89.4 [facility] [id number] [place] [address] 15 Nov, 2016 Primary osteoarthritis of both knees M17.0 and Chronic pain syndrome G89.4 [facility] [id number] [place] [address] 13 Nov, 2016 Type 2 diabetes mellitus with diabetic polyneuropathy E11.42 and Chronic pain syndrome G89.4 [facility] [id number] [place] [address] 12 Nov, 2016 Posttraumatic stress disorder F43.10 and Mood disorder F39 [facility] [id number] [place] [address] Oct, Chronic pain syndrome G89.4 [facility] [id number] [place] [address] Oct, Type 2 diabetes mellitus with diabetic polyneuropathy E11.42 ; BMI 45.0-49.9, adult Z68.42 ; Primary osteoarthritis of both knees M17.0 and Skin lesion L98.9 [facility] [id number] [place] [address] Oct, Chronic pain syndrome G89.4 [facility] [address], [place] [address] Sep, Chronic pain syndrome G89.4 [facility] [id number] [place] [address] Sep, [facility] [address], [place] [address] Sep, Chronic pain syndrome G89.4 [facility] [address], [place] [address] Aug, Chronic pain syndrome G89.4 [facility] [address], [place] [address] Aug, [facility] [id number] [place] [address] Aug, Macrocytosis D75.89 and Pure hypercholesterolemia E78.0 [facility] [id number] [place] [address] Aug, Pure hypercholesterolemia E78.0 [facility] [id number] [place] [address] Aug, Macrocytosis D75.89 [facility] [id number] [place] [address] Aug, Pure hypercholesterolemia E78.0 ; Type 2 diabetes mellitus with diabetic polyneuropathy E11.42 ; MITCHELL treated with BiPAP G47.33 and Chronic pain syndrome G89.4 [facility] [address], [place] [address] Aug, [facility] [id number], [place] [address] Aug, Hemorrhoids, unspecified hemorrhoid type K64.9 [facility] [address], [place] [address] Aug, Chronic pain syndrome G89.4 ; Type 2 diabetes mellitus with diabetic polyneuropathy E11.42 ; Hemorrhoids, unspecified hemorrhoid type K64.9 ; Tobacco abuse Z72.0 and Primary osteoarthritis of both knees M17.0 [facility] [address], [place] [address] July, Chronic pain syndrome G89.4 [facility] [address], [place] [address] July, [facility] [id number] [place] [address] Jun, Chronic pain syndrome G89.4 [facility] [id number] [place] [address] Jun, Chronic pain syndrome G89.4 [facility] [id number] [place] [address] Jun, Severe major depression with psychotic features F32.3 and Posttraumatic stress disorder F43.10 [facility] [id number] [place] [address] Jun, Chronic pain syndrome G89.4 [facility] [id number] [place] [address] Jun, [facility] [id number] [place] [address] May, Chronic pain syndrome G89.4 [facility] [id number] [place] [address] May, Tobacco abuse Z72.0 [facility] [id number] [place] [address] May, [facility] [id number] [place] [address] Apr, Chronic pain syndrome G89.4 [facility] [address], [place] [address] Apr, [facility] [id number] [place] [address] Apr, Right foot pain M79.671 [facility] [id number] [place] [address] 31 Federico, 2017 Type 2 diabetes mellitus with diabetic polyneuropathy E11.42 ; MITCHELL treated with BiPAP G47.33 ; Pure hypercholesterolemia E78.0 ; Chronic pain syndrome G89.4 ; Tobacco abuse Z72.0 and Obesity, morbid, BMI 40.0-49.9 E66.01 [facility] [address], [place] [address] Mar, [facility] [id number] [place] [address] Mar, [facility] [id number] [place] [address] Mar, [facility] [id number] [place] [address] Mar, [facility] [id number] [place] [address] Mar, [facility] [id number] [place] [address] Mar, Severe major depression with psychotic features F32.3 and Posttraumatic stress disorder F43.10 [facility] [id number] [place] [address] Mar, [facility] [id number] [place] [address] Feb, [facility] [address], [place] [address] Feb, [facility] [id number] [place] [address] Jan, [facility] [id number] [place] [address] Jan, [facility] [id number] [place] [address] Dec, Posttraumatic stress disorder F43.10 and Severe major depression with psychotic features F32.3 [facility] [id number] [place] [address] Dec, Type 2 diabetes mellitus with diabetic polyneuropathy E11.42 ; Chronic pain syndrome G89.4 and Acute right-sided low back pain with right-sided sciatica M54.41 [facility] [id number] [place] [address] Dec, [facility] [id number] [place] [address] Dec, [facility] [id number] [place] [address] Nov, [facility] [id number] [place] [address] Nov, [facility] [id number] [place] [address] Nov, [facility] [id number] [place] [address] Oct, [facility] [id number] [place] [address] Oct, [facility] [id number] [place] [address] Sep, Dental examination Z01.20 [facility] [id number] [place] [address] Sep, [facility] [id number] [place] [address] Sep, Type 2 diabetes mellitus with diabetic polyneuropathy E11.42 ; Chronic pain syndrome G89.4 ; Chronic prescription opiate use Z79.891 ; Injury of right index finger, sequela S69.91XS and Anejaculation N50.8 [facility] [id number] [place] [address] Aug, [facility] [id number] [place] [address] Aug, [facility] [address], [place] [address] Aug, Cellulitis of finger of right hand L03.011 [facility] [address], [place] [address] July, [facility] [address], [place] [address] July, [facility] [id number] [place] [address] Jun, Onychomycosis B35.1 [facility] [id number] [place] [address] Jun, Severe major depression with psychotic features F32.3 and Posttraumatic stress disorder F43.10 [facility] [address], [place] [address] Jun, [facility] [id number] [place] [address] Jun, [facility] [address], [place] [address] Jun, [facility] [id number] [place] [address] May, Type 2 diabetes mellitus with diabetic polyneuropathy E11.42 [facility] [address], [place] [address] May, Type 2 diabetes mellitus with diabetic polyneuropathy E11.42 and Urinary hesitancy R39.11 [facility] [address], [place] [address] May, Type 2 diabetes mellitus with diabetic polyneuropathy E11.42 ; Left hip pain M25.552 and Benign prostatic hyperplasia with lower urinary tract symptoms, unspecified morphology N40.1 [facility] [address], [place] [address] May, [facility] [id number] [address] Apr, Severe major depression with psychotic features F32.3 and Posttraumatic stress disorder F43.10 [facility] [id number] [place] [address] 08 Apr, 2015 [facility] [id number] [place] [address] Mar, [facility] [id number] [place] [address] Mar, Dysuria R30.0 and Urinary hesitancy R39.11 [facility] [id number] [place] [address] Mar, Onychomycosis B35.1 [facility] [id number] [place] [address] Mar, [facility] [id number] [place] [address] Feb, [facility] [id number] [place] [address] Jan, [facility] [id number] [place] [address] Jan, Posttraumatic stress disorder F43.10 and Severe major depression with psychotic features F32.3 [facility] [id number] [place] [address] Jan, [facility] [id number] [place] [address] Jan, Chronic pain syndrome G89.4 ; Type 2 diabetes mellitus with diabetic polyneuropathy E11.42 ; Decreased pedal pulses R09.89 and Paresthesia of both hands R20.2 [facility] [address], [place] [address] Dec, Posttraumatic stress disorder F43.10 and Severe major depression with psychotic features F32.3 [facility] [id number], [place] [address] Dec, [facility] [address], [place] [address] Dec, [facility] [address], [place] [address] Dec, Onychomycosis B35.1 [facility] [id number] [place] [address] Dec, [facility] [address], [place] [address] Dec, [facility] [id number] [place] [address] Nov, [facility] [id number] [place] [address] Oct, Depression, major, recurrent, moderate 296.32 and Posttraumatic stress disorder 309.81 [facility] [address], [place] [address] Oct, [facility] [id number] [place] [address] Oct, [facility] [address], [place] [address] Oct, [facility] [address], [place] [address] Sep, Posttraumatic stress disorder 309.81 and Depression, major, recurrent, moderate 296.32 [facility] [address], [place] [address] Sep, [facility] [id number] [place] [address] Sep, Chronic airway obstruction, not elsewhere classified 496 [facility] [address], [place] [address] Sep, Onychomycosis 110.1 and DM neuro manif type II 250.60 [facility] [id number] [place] [address] Sep, Chronic pain 338.29 ; Chronic airway obstruction, not elsewhere classified 496 ; Osteoarthritis of knees, bilateral 715.96 and On potassium wasting diuretic therapy V58.69 [facility] [id number] [place] [address] Sep, Insect bites 919.4 ; Sinusitis 473.9 and GERD (gastroesophageal reflux disease) 530.81 [facility] [id number] [place] [address] Aug, Depression, major, recurrent, moderate 296.32 and Posttraumatic stress disorder 309.81 [facility] [id number] [place] [address] Aug, [facility] [id number] [place] [address] Aug, [facility] [id number] [place] [phone] Aug, [facility] [id number] [place] [phone] July, Major depressive disorder, recurrent episode, moderate 296.32 and Posttraumatic stress disorder 309.81 [facility] [id number] [place] [phone] July, [facility] [id number] [place] [phone] July, [facility] [id number] [place] [phone] July, [facility] [address] [phone] July, [facility] [id number] [place] [phone] Jun, [facility] [address] [id number] 13 Jun, 2014 [facility] [place] [facility] [address] [id number] [place] [address] May, [facility] [place] [facility] [address] [id number] [place] [address] May, [facility] [place] [facility] [address] [facility] [facility] [id number] [place] [address] 18 May, 2014 [facility] [place] [facility] [address] [id number] [place] [address] May, [facility] [place] [facility] [address] [id number] [place] [address] May, [facility] [place] [facility] [address] [facility] [id number] [place] [address] May, [facility] [place] [facility] [address] [facility] [id number] [place] [address] May, [facility] [place] [facility] [address] [facility] [id number] [place] [address] May, [facility] [place] [facility] [address] [facility] [id number] [place] [address] May, [facility] [place] [facility] [address] [facility] [id number] [place] [address] Apr, 2014 [facility] [place] [facility] [address] [facility] [id number] [place] [address] Apr, 2014 [facility] [place] [facility] [address] [id number], [place] [address] Apr, 2014 [facility] [place] [facility] [address] [id number] [place] [address] Apr, 2014 [facility] [place] [facility] [address] [facility] [id number] [place] [address] Apr, 2014 [facility] [place] [facility] [address] [facility] [id number] [place] [address] 05 Apr, 2014 [facility] [place] [facility] [address] [id number] [place] [address] 05 Apr, 2014 [facility] [place] [facility] [address] [id number] [place] [address] Apr, [facility] [place] [facility] [address] [id number] [place] [address] Apr, [facility] [place] [facility] [address] [id number] [place] [address] Mar, [facility] [place] [facility] [address] [id number] [place] [address] Mar, [facility] [place] [facility] [address] [id number] [place] [address] Mar, [facility] [place] [facility] [address] [id number] [place] [address] Mar, [facility] [place] [facility] [address] [id number] [place] [address] Mar, [facility] [place] [facility] [address] [id number] [place] [address] Mar, [facility] [place] [facility] [address] [id number] [place] [address] Mar, [facility] [place] [facility] [address] [id number] [place] [address] Mar, [facility] [place] [facility] [address] [id number] [place] [address] Mar, [facility] [place] [facility] [address] [id number] [place] [address] Mar, [facility] [place] [facility] [address] [id number] [place] [address] 14 Mar, 2014 [facility] [place] [facility] [address] [id number] [place] [address] 14 Mar, 2014 [facility] [place] [facility] [address] [id number] [place] [address] 14 Mar, 2014 [facility] [place] [facility] [address] [id number] [place] [address] 14 Mar, 2014 [facility] [place] [facility] [address] [id number] [place] [address] 14 Mar, 2014 [facility] [place] [facility] [address] [id number] [place] [address] 14 Mar, 2014 [facility] [place] [facility] [address] [id number] [place] [address] 09 Mar, 2014 [facility] [place] [facility] [address] [id number] [place] [address] 09 Mar, 2014 [facility] [place] [facility] [address] [id number] [place] [address] 16 Feb, 2014 [facility] [place] [facility] [address] [id number] [place] [address] 16 Feb, 2014 [facility] [place] [facility] [address] [id number] [place] [address] 15 Feb, 2014 [facility] [place] [facility] [address] [id number] [place] [address] 15 Feb, 2014 [facility] [place] [facility] [address] [id number] [place] [address] 15 Feb, 2014 [facility] [place] [facility] [address] [id number] [place] [address] 15 Feb, 2014 [facility] [place] [facility] [address] [id number], [place] [address] Jan, [facility] [place] [facility] [address] [id number] [place] [address] Jan, [facility] [place] [facility] [address] [id number] [place] [address] 17 Jan, 2014 [facility] [place] [facility] [address] [id number] [place] [address] 17 Jan, 2014 [facility] [place] [facility] [address] [id number] [place] [address] Jan, [facility] [place] [facility] [address] [id number] [place] [address] Jan, [facility] [place] [facility] [address] [id number] [place] [address] Jan, [facility] [place] [facility] [address] [id number] [place] [address] Jan, [facility] [place] [facility] [address] [id number] [place] [address] Jan, [facility] [place] [facility] [address] [id number] [place] [address] Jan, [facility] [place] [facility] [address] [id number] [place] [address] Dec, [facility] [place] [facility] [address] [id number] [place] [address] Dec, [facility] [place] [facility] [address] [id number] [place] [address] Dec, [facility] [place] [facility] [address] [id number] [place] [address] Dec, [facility] [place] [facility] [address] [id number] [place] [address] 16 Nov, 2013 [facility] [place] [facility] [address] [id number] [place] [address] 16 Nov, 2013 [facility] [place] [facility] [address] [id number] [place] [address] 03 Nov, 2013 [facility] [place] [facility] [address] [id number] [place] [address] 03 Sep, 2013 [facility] [place] [facility] [address] [id number] [place] [address] Nov, 2013 [facility] [place] [facility] [address] [id number] [place] [address] Nov, [facility] [place] [facility] [address] [id number] [place] [address] Oct, [facility] [place] [facility] [address] [id number] [place] [address] Oct, [facility] [place] [facility] [address] [id number] [place] [address] Oct, [facility] [place] [facility] [address] [id number] [place] [address] Oct, [facility] [place] [facility] [address] [id number] [place] [address] Sep, [facility] [place] [facility] [address] [id number] [place] [address] Sep, [facility] [place] [facility] [address] [id number] [place] [address] Sep, [facility] [place] [facility] [address] [id number] [place] [address] Sep, [facility] [place] [facility] [address] [id number] [place] [address] Sep, [facility] [place] [facility] [address] [id number] [place] [address] Sep, [facility] [place] [facility] [address] [id number] [place] [address] July, [facility] [place] [facility] [address] [id number] [place] [address] July, [facility] [place] [facility] [address] [id number] [place] [address] July, [facility] [place] [facility] [address] [id number] [place] [address] July, [facility] [place] [facility] [address] [id number] [place] [address] Jun, [facility] [place] [facility] [address] [id number] [place] [address] Jun, [facility] [place] [facility] [address] [id number] [place] [address] Jun, [facility] [place] [facility] [address] [facility] [id number] [place] [address] Jun, [facility] [place] [facility] [address] [facility] [id number] [place] [address] Jun, [facility] [place] [facility] [address] [facility] [id number] [place] [address] Jun, [facility] [place] [facility] [address] [facility] [id number] [place] [address] May, [facility] [place] [facility] [address] [facility] [id number] [place] [address] May, [facility] [place] [facility] [address] [id number] [place] [address] Apr, [facility] [place] [facility] [address] [facility] [id number] [place] [address] Apr, [facility] [place] [facility] [address] [id number] [place] [address] Apr, [facility] [place] [facility] [address] [id number] [place] [address] Apr, [facility] [place] [facility] [address] [id number] [place] [address] Apr, [facility] [place] [facility] [address] [facility] [id number] [place] [address] Apr, [facility] [place] [facility] [address] [facility] [id number] [place] [address] Apr, [facility] [place] [facility] [address] [facility] [id number] [place] [address] Mar, [facility] [place] [facility] [address] [facility] [id number] [place] [address] Mar, [facility] [place] [facility] [address] [id number] [place] [address] Mar, [facility] [place] [facility] [address] [id number] [place] [address] Mar, [facility] [place] [facility] [address] [id number] [place] [address] Mar, [facility] [place] [facility] [address] [id number] [place] [address] Mar, [facility] [address] [id number] [place] [address] Mar, [facility] [place] [facility] [address] [id number] [place] [address] Mar, [facility] [place] [facility] [address] [id number] [place] [address] Feb, [facility] [place] [facility] [address] [id number] [place] [address] Feb, [facility] [place] [facility] [address] [id number] [place] [address] Feb, [facility] [place] [facility] [address] [id number] [place] [address] Feb, [facility] [place] [facility] [address] [id number] [place] [address] Feb, [facility] [place] [facility] [address] [id number], [place] [address] Feb, [facility] [place] [facility] [address] [id number] [place] [address] Feb, [facility] [place] [facility] [address] [id number] [place] [address] Jan, [facility] [place] [facility] [address] [id number] [place] [address] Jan, [facility] [place] [facility] [address] [id number], [place] [address] Jan, [facility] [place] [facility] [address] [id number], [place] [address] Jan, [facility] [place] [facility] [address] [id number], [place] [address] Jan, [facility] [place] [facility] [address] [id number], [place] [address] Jan, [facility] [place] [facility] [address] [id number] [id number] Jan, [facility] [place] [facility] [address] [id number][place] [id number] Jan, [facility] [place] [facility] [address] [id number], [place] [address] Dec, [facility] [place] [facility] [address] [id number], [place] [address] Dec, [facility] [place] [facility] [address] [id number], [place] [address] Dec, [facility] [place] [facility] [address] [id number], [place] [address] Dec, [facility] [place] [facility] [address] [id number], [place] [address] Dec, [facility] [place] [facility] [address] [id number], [place] [address] Dec, [facility] [place] [facility] [address] [id number], [place] [address] Dec, [facility] [place] [facility] [address] [id number], [place] [address] Dec, [facility] [place] [facility] [address] [id number], [place] [address] Dec, [facility] [place] [facility] [address] [id number], [place] [address] Dec, [facility] [place] [facility] [address] [id number] [place] [id number] 27 Nov, 2012 [facility] [place] [facility] [address] [id number] [place] [id number] 27 Nov, 2012 [facility] [place] [facility] [address] [id number] [place] [address] 24 Nov, 2012 [facility] [place] [facility] [address] [id number] [place] [address] 20 Nov, 2012 [facility] [place] [facility] [address] [id number] [place] [address] 19 Nov, 2012 [facility] [place] [facility] [address] [id number] [place] [address] 13 Nov, 2012 [facility] [place] [facility] [address] [id number] [place] [address] 10 Nov, 2012 [facility] [address] [id number] [place] [address] 06 Nov, 2012 [facility] [place] [facility] [address] [id number] [place] [address] Oct, [facility] [place] [facility] [address] [id number] [place] [address] Oct, [facility] [place] [facility] [address] [id number] [place] [address] Oct, [facility] [place] [facility] [address] [id number] [place] [address] Sep, [facility] [place] [facility] [address] [id number] [place] [address] Sep, [facility] [place] [facility] [address] [id number] [place] [address] Sep, [facility] [place] [facility] [address] [id number] [place] [address] Sep, [facility] [place] [facility] [address] [id number] [place] [address] Sep, [facility] [place] [facility] [address] [id number] [place] [address] Aug, [facility] [address] [id number] [place] [address] Aug, [facility] [place] [facility] [address] [id number] [place] [address] Aug, [facility] [address] [id number] [place] [address] Aug, [facility] [address] [id number] [place] [address] Aug, [facility] [place] [facility] [address] [id number] [place] [address] Aug, [facility] [address] [id number] [place] [address] July, [facility] [address] [id number] [place] [address] July, [facility] [address] [id number] [place] [address] July, [facility] [address] [id number] [place] [address] July, [facility] [address] [id number] [place] [address] July, [facility] [address] [id number] [place] [address] July, [facility] [place] [facility] [address] [id number] [place] [address] Jun, [facility] [place] [facility] [address] [id number] [place] [address] Jun, [facility] [place] [facility] [address] [id number] [place] [address] Jun, [facility] [place] [facility] [address] [id number] [place] [address] Jun, [facility] [address] [id number] [place] [address] May, [facility] [place] [facility] [address] [id number] [place] [address] May, [facility] [address] [facility] [id number] [place] [address] May, [facility] [address] [id number] [place] [address] Apr, [facility] [address] [id number] [place] [address] Mar, [facility] [address] [id number] [place] [address] 18 Mar, 2012 [facility] [address] [id number] [place] [address] 17 Mar, 2012 [facility] [address] [id number] [place] [address] 16 Mar, 2012 [facility] [address] [id number] [place] [address] Mar, [facility] [address] [id number] [place] [address] Feb, [facility] [address] [id number], [place] [address] Feb, [facility] [place] [facility] [address] [id number], [place] [address] Feb, [facility] [place] [facility] [address] [id number] [place] [address] Feb, [facility] [place] [facility] [address] [id number] [place] [address] Jan, [facility] [place] [facility] [address] [id number] [place] [address] Jan, [facility] [place] [facility] [address] [id number] [place] [address] Jan, [facility] [address] [id number] [place] [address] Jan, [facility] [address] [id number] [place] [address] Dec, [facility] [address] [id number] [place] [address] Dec, [facility] [address] [id number] [place] [address] Nov, [facility] [address] [id number] [place] [address] Oct, [facility] [address] [id number] [place] [address] Oct, [facility] [address] [id number] [place] [address] Oct, [facility] [address] [id number] [place] [address] Oct, [facility] [address] [id number] [place] [address] Oct, [facility] [address] [id number] [place] [address] Sep, [facility] [address] [id number] [place] [address] Sep, [facility] [address] [id number] [place] [address] Aug, [facility] [address] [place] [id number] Aug, [facility] [address] [id number] [place] [address] Aug, [facility] [address] [id number] [place] [address] July, [facility] [address] [id number] [place] [address] July, [facility] [place] [facility] [address] [id number] [place] [address] Jun, [facility] [place] [facility] [address] [id number] [place] [address] Jun, [facility] [place] [facility] [address] [id number] [place] [address] 16 Jun, 2011 [facility] [place] [facility] [address] [id number] [place] [address] Jun, [facility] [place] [facility] [address] [id number] [place] [address] 15 Apr, 2011 [facility] [place] [facility] [address] [id number] [place] [address] 15 Apr, 2011 [facility] [place] [facility] [address] [id number] [place] [address] Apr, [facility] [place] [facility] [address] [id number] [place] [address] Mar, [facility] [place] [facility] [address] [id number] [place] [address] Mar, [facility] [place] [facility] [address] [id number] [place] [address] Mar, [facility] [place] [facility] [address] [id number] [place] [address] Mar, [facility] [place] [facility] [address] [id number] [place] [address] Mar, [facility] [place] [facility] [address] [id number] [place] [address] Jan, [facility] [place] [facility] [address] [id number] [place] [address] Jan, [facility] [place] [facility] [address] [id number] [place] [address] Jan, [facility] [place] [facility] [address] [id number] [place] [address] 17 Mar, 2010 [facility] [place] [facility] [address] [id number] [place] [address] 11 Mar, 2010 [facility] [place] [facility] [address] [id number] [place] [address] Feb, [facility] [place] [facility] [address] [id number] [place] [address] Feb, [facility] [place] [facility] [address] [id number] [place] [address] Feb, [facility] [place] [facility] [address] [id number] [place] [address] Jan, [facility] [place] [facility] [address] [id number] [place] [address] Jan, [facility] [place] [facility] [address] [id number] [place] [address] Dec, [facility] [place] [facility] [address] [id number] [place] [address] Dec, [facility] [place] [facility] [address] [id number] [place] [address] May, [facility] [place] [facility] [address] [id number], [place] [address] 10 Apr, 2009 [facility] [place] [facility] [address] [id number], [place] [address] Feb, [facility] [place] [facility] [address] [id number] [place] [address] Feb, [facility] [place] [facility] [address] [facility] [id number], [place] [address] Jan, [facility] [place] [facility] [address] [id number], [place] [address] Jan, [facility] [place] [facility] [address] [facility] [id number] [place] [address] Jan, [facility] [address] [facility] [id number] [place] [address] Jan, [facility] [address] [facility] [id number] [place] [address] Jan, IMMUNIZATIONS No Known Immunizations SOCIAL HISTORY Never Assessed REASON FOR VISIT Ortho Referral PLAN OF CARE VITAL SIGNS MEDICATIONS Unknown [...] Hospitalization History ED then admitted to [facility]-cardiac stepdown-chest pain 02/2010 Hospitalization History Possible DVT-sono negative 06/2010 Hospitalization History cellulitis to bilat legs
--- OUTSIDE RECORDS SUMMARY | 2018-10-04 06:31 | XMS REPORT ---
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 Role Phone BELLOISSAC Unavailable PROBLEMS Type Condition ICD9-CM Code VSW03-HF Code Onset Dates Condition Status SNOMED Code Problem Primary osteoarthritis of both knees M17.0 Active 314589270 Problem Nocturnal hypoxia G47.34 Active 437263151 Problem Pure hypercholesterolemia E78.0 Active 408295838 Problem Acute right-sided low back pain with right-sided sciatica M54.41 Active 07703162 Problem Type 2 diabetes mellitus with diabetic polyneuropathy E11.42 Active 611546969 Problem Posttraumatic stress disorder F43.10 Active 42047463 Problem Chronic systolic (congestive) heart failure I50.22 Active 495366690 Problem Severe major depression with psychotic features F32.3 Active 28484657 Problem Obesity, morbid, BMI 40.0-49.9 E66.01 Active 318542272 Problem Tobacco abuse Z72.0 Active 584956917 Problem Chronic systolic congestive heart failure I50.22 Active 558731664 Problem Primary insomnia F51.01 Active 1172615 Problem Essential hypertension I10 Active 47429892 Problem History of DVT (deep vein thrombosis) Z86.718 Active 712040929 Problem Chronic pain syndrome G89.4 Active 098022063 Problem BMI 45.0-49.9, adult Z68.42 Active 014350142 Problem Macrocytosis D75.89 Active 779738695 Problem Mood disorder F39 Active 25563960 Problem Mild episode of recurrent major depressive disorder F33.0 Active 580513458 Problem Non-ischemic cardiomyopathy I42.9 Active 51288546 Problem Chronic obstructive pulmonary disease, unspecified COPD type J44.9 Active 92793201 Problem Major depressive disorder, recurrent episode, unspecified severity F33.9 Active 72331199 Problem Gastroesophageal reflux disease, esophagitis presence not specified K21.9 Active 883458189 Problem MITCHELL treated with BiPAP G47.33 Active 76529906 Problem Chronic prescription opiate use Z79.891 Active 365734884 Problem PTSD (post-traumatic stress disorder) F43.10 Active 62802151 Problem History of weight loss surgery Z98.84 Active 946251155 ALLERGIES Substance Reaction Event Type Date Status Trintellix nausea vomiting, diarrhea Drug Allergy Dec, Active Chantix nausea Drug Allergy Dec, Active ENCOUNTERS Encounter Location Date Diagnosis [place] [address] [address] Dec, [place] [address] [address] Dec, Injury of left knee, initial encounter S89.92XA and BMI 45.0-49.9, adult Z68.42 [place] [address] [address] Nov, 2018 Chest discomfort R07.89 ; Shortness of breath R06.02 ; Chronic systolic congestive heart failure I50.22 and Type 2 diabetes mellitus with diabetic polyneuropathy E11.42 [place] [address] [place] [id number] [place] [address] 20 Nov, 2017 Chronic pain syndrome G89.4 [place] [address] [place] [id number] [place] [address] Oct, BMI 45.0-49.9, adult Z68.42 ; Type 2 diabetes mellitus with diabetic polyneuropathy E11.42 ; Chronic pain syndrome G89.4 ; Gastroesophageal reflux disease, esophagitis presence not specified K21.9 ; Decreased pedal pulses R09.89 and Precordial pain R07.2 [place] [address] [place] [id number] [place] [address] Oct, [place] [address] [address] Oct, Mood disorder F39 [place] [address] [place] [id number] [place] [address] Oct, Mood disorder F39 ; Posttraumatic stress disorder F43.10 and BMI 45.0-49.9, adult Z68.42 [place] [address] [place] [address] Sep, Primary osteoarthritis of both knees M17.0 and Chronic pain syndrome G89.4 [place] [address] [place] [address] Sep, Mood disorder F39 and Posttraumatic stress disorder F43.10 [place] [address] [place] [id number] [place] [address] Aug, Primary osteoarthritis of both knees M17.0 and Chronic pain syndrome G89.4 [place] [address] [place] [id number] [place] [address] July, Primary osteoarthritis of both knees M17.0 and Chronic pain syndrome G89.4 [place] [address] [place] [id number] [place] [address] July, Type 2 diabetes mellitus with diabetic polyneuropathy E11.42 ; Essential hypertension I10 ; Pure hypercholesterolemia E78.0 ; Chronic prescription opiate use Z79.891 ; Tobacco abuse Z72.0 ; Primary osteoarthritis of both knees M17.0 ; Primary insomnia F51.01 and BMI 45.0-49.9, adult Z68.42 [place] [address] [place] [address] 08 Jul, 2017 Medicare annual wellness visit, [...] specified K21.9 and Encounter for immunization Z23 [place] [address] [place] [address] July, Primary osteoarthritis of both knees M17.0 and Chronic pain syndrome G89.4 [facility] [address] [place] [address] Jun, Infection of right ear H66.91 ; Wheezing on auscultation R06.2 and BMI 45.0-49.9, adult Z68.42 [facility] [address] [place] [id number] [place] [address] Jun, [facility] [address] [place] [id number] [place] [address] Jun, Primary osteoarthritis of both knees M17.0 and Chronic pain syndrome G89.4 [facility] [address] [place] [id number] [place] [address] May, [facility] [address] [place] [id number] [place] [address] May, BMI 45.0-49.9, adult Z68.42 ; Mood disorder F39 and Posttraumatic stress disorder F43.10 [facility] [address] [place] [id number] [place] [address] May, [facility] [address] [place] [id number] [place] [address] May, Primary osteoarthritis of both knees M17.0 and Chronic pain syndrome G89.4 [facility] [address] [place] [id number] [place] [address] May, Mood disorder F39 [facility] [address] [place] [id number] [place] [address] Apr, Type 2 diabetes mellitus with diabetic polyneuropathy E11.42 [facility] [address] [place] [id number] [place] [address] Apr, [facility] [address] [place] [id number] [place] [address] Apr, Primary osteoarthritis of both knees M17.0 and Chronic pain syndrome G89.4 [facility] [address] [place] [address] [place] [address] Apr, Mood disorder F39 [facility] [address] [place] [id number] [place] [address] Mar, Mood disorder F39 and Posttraumatic stress disorder F43.10 [facility] [address] [place] [id number] [place] [address] Mar, Primary osteoarthritis of both knees M17.0 and Chronic pain syndrome G89.4 [facility] [address] [place] [id number] [place] [address] Feb, Primary osteoarthritis of both knees M17.0 and Chronic pain syndrome G89.4 [facility] [address] [place] [id number] [place] [address] Feb, Mood disorder F39 [facility] [address] [place] [id number] [place] [address] Jan, Type 2 diabetes mellitus with diabetic polyneuropathy E11.42 ; Primary osteoarthritis of both knees M17.0 ; Mood disorder F39 ; Obesity, morbid, BMI 40.0-49.9 E66.01 ; Chronic prescription opiate use Z79.891 ; Acute suppurative otitis media of both ears without spontaneous rupture of tympanic membranes, recurrence not specified H66.003 and BMI 45.0-49.9, adult Z68.42 [facility] [address] [place] [address] Jan, Primary osteoarthritis of both knees M17.0 and Chronic pain syndrome G89.4 [facility] [address] [place] [address] Dec, Mood disorder F39 and Posttraumatic stress disorder F43.10 [facility] [address] [place] [id number] [place] [address] Dec, Primary osteoarthritis of both knees M17.0 and Chronic pain syndrome G89.4 [facility] [address] [place] [id number] [place] [address] Nov, Chronic pain syndrome G89.4 [facility] [address] [address] 15 Nov, 2016 Primary osteoarthritis of both knees M17.0 and Chronic pain syndrome G89.4 [facility] [address] [address] 13 Nov, 2016 Type 2 diabetes mellitus with diabetic polyneuropathy E11.42 and Chronic pain syndrome G89.4 [facility] [address] [place] [id number] [place] [address] 12 Nov, 2016 Posttraumatic stress disorder F43.10 and Mood disorder F39 [facility] [address] [place] [id number] [place] [address] 18 Oct, 2016 Chronic pain syndrome G89.4 [facility] [address] [place] [address] 16 Oct, 2016 Type 2 diabetes mellitus with diabetic polyneuropathy E11.42 ; BMI 45.0-49.9, adult Z68.42 ; Primary osteoarthritis of both knees M17.0 and Skin lesion L98.9 [facility] [address] [place] [id number] [place] [address] Oct, Chronic pain syndrome G89.4 [facility] [address] [place] [address] Sep, Chronic pain syndrome G89.4 [facility] [address] [place] [address] Sep, [facility] [address] [place] [address] Sep, Chronic pain syndrome G89.4 [facility] [address] [place] [address] Aug, Chronic pain syndrome G89.4 [facility] [address] [address] Aug, [facility] [address] [place] [address] [address] Aug, Macrocytosis D75.89 and Pure hypercholesterolemia E78.0 [facility] [address] [place] [id number] [place] [address] Aug, Pure hypercholesterolemia E78.0 [facility] [address] [place] [address] Aug, Macrocytosis D75.89 [facility] [address] [place] [id number] [place] [address] Aug, Pure hypercholesterolemia E78.0 ; Type 2 diabetes mellitus with diabetic polyneuropathy E11.42 ; MITCHELL treated with BiPAP G47.33 and Chronic pain syndrome G89.4 [place] [address] [place] [id number] [place] [address] Aug, [place] [address] [place] [id number] [place] [address] Aug, Hemorrhoids, unspecified hemorrhoid type K64.9 [place] [address] [place] [address] Aug, Chronic pain syndrome G89.4 ; Type 2 diabetes mellitus with diabetic polyneuropathy E11.42 ; Hemorrhoids, unspecified hemorrhoid type K64.9 ; Tobacco abuse Z72.0 and Primary osteoarthritis of both knees M17.0 [place] [address], [place] [address] July, Chronic pain syndrome G89.4 [facility] [address] [place] [address] July, [facility] [address] [place] [address] Jun, Chronic pain syndrome G89.4 [facility] [address], [place] [address] Jun, Chronic pain syndrome G89.4 [facility] [address] [place] [id number] [place] [address] Jun, Severe major depression with psychotic features F32.3 and Posttraumatic stress disorder F43.10 [facility] [address] [place] [id number] [place] [address] Jun, Chronic pain syndrome G89.4 [facility] [address] [place] [id number] [place] [address] Jun, [facility] [address] [address] May, Chronic pain syndrome G89.4 [facility] [address] [address] May, Tobacco abuse Z72.0 [place] [address] [place] [id number] [place] [address] May, [facility] [address] [address] Apr, Chronic pain syndrome G89.4 [place] [address] [place] [id number] [place] [address] Apr, [facility] [address] [place] [id number] [place] [address] Apr, Right foot pain M79.671 [place] [address] [place] [id number] [place] [address] Mar, Type 2 diabetes mellitus with diabetic polyneuropathy E11.42 ; MITCHELL treated with BiPAP G47.33 ; Pure hypercholesterolemia E78.0 ; Chronic pain syndrome G89.4 ; Tobacco abuse Z72.0 and Obesity, morbid, BMI 40.0-49.9 E66.01 [facility] [address] [place] [id number] [place] [address] Mar, [facility] [address] [place] [id number] [place] [address] Mar, [facility] [address] [place] [address] [address] Mar, [facility] [address] [address] Mar, [facility] [address] [place] [address] Mar, [facility] [address] [place] [address] Mar, Severe major depression with psychotic features F32.3 and Posttraumatic stress disorder F43.10 [facility] [address] [address] Mar, [facility] [address] [place] [id number] [place] [address] Feb, [facility] [address] [place] [id number] [place] [address] Feb, [facility] [address] [place] [address] Jan, [facility] [address] [place] [address] Jan, [facility] [address] [place] [id number] [place] [address] Dec, Posttraumatic stress disorder F43.10 and Severe major depression with psychotic features F32.3 [facility] [address], [place] [address] Dec, Type 2 diabetes mellitus with diabetic polyneuropathy E11.42 ; Chronic pain syndrome G89.4 and Acute right-sided low back pain with right-sided sciatica M54.41 [facility] [address], [place] [address] Dec, [facility] [address], [place] [address] Dec, [facility] [address], [place] [address] Nov, [facility] [address], [place] [address] Nov, [facility] [address] [place] [address] Nov, [facility] [address] [place] [address] Oct, [facility] [address] [place] [id number] [place] [address] Oct, [facility] [address] [place] [address] Sep, Dental examination Z01.20 [facility] [address] [place] [id number] [place] [address] Sep, [facility] [address] [place] [id number] [place] [address] Sep, Type 2 diabetes mellitus with diabetic polyneuropathy E11.42 ; Chronic pain syndrome G89.4 ; Chronic prescription opiate use Z79.891 ; Injury of right index finger, sequela S69.91XS and Anejaculation N50.8 [facility] [address] [place] [address] Aug, [facility] [address] [place] [address] Aug, [facility] [address] [place] [address] Aug, Cellulitis of finger of right hand L03.011 [facility] [address] [place] [id number] [place] [address] July, [facility] [address] [place] [address] July, [facility] [address] [place] [address] Jun, Onychomycosis B35.1 [place] [address], [place] [address] Jun, Severe major depression with psychotic features F32.3 and Posttraumatic stress disorder F43.10 [place] [address], [place] [address] Jun, [place] [address] [place] [id number] [place] [address] Jun, [place] [address] [place] [address] Jun, [place] [address] [place] [id number] [place] [address] May, Type 2 diabetes mellitus with diabetic polyneuropathy E11.42 [place] [address] [place] [id number] [place] [address] May, Type 2 diabetes mellitus with diabetic polyneuropathy E11.42 and Urinary hesitancy R39.11 [place] [address] [place] [address] May, Type 2 diabetes mellitus with diabetic polyneuropathy E11.42 ; Left hip pain M25.552 and Benign prostatic hyperplasia with lower urinary tract symptoms, unspecified morphology N40.1 [place] [address], [place] [address] May, [place] [address] [place] [address] Apr, Severe major depression with psychotic features F32.3 and Posttraumatic stress disorder F43.10 [place] [address], [place] [address] Apr, [facility] [address], [place] [address] Mar, [place] [address] [place] [address] Mar, Dysuria R30.0 and Urinary hesitancy R39.11 [facility] [address], [place] [address] Mar, Onychomycosis B35.1 [facility] [address], [place] [address] Mar, [facility] [address] [place] [id number] [place] [address] Feb, [facility] [address] [place] [id number] [place] [address] Jan, [facility] [address] [place] [id number] [place] [address] Jan, Posttraumatic stress disorder F43.10 and Severe major depression with psychotic features F32.3 [facility] [address] [place] [address] Jan, [facility] [address] [place] [id number] [place] [address] Jan, Chronic pain syndrome G89.4 ; Type 2 diabetes mellitus with diabetic polyneuropathy E11.42 ; Decreased pedal pulses R09.89 and Paresthesia of both hands R20.2 [facility] [address], [place] [address] Dec, Posttraumatic stress disorder F43.10 and Severe major depression with psychotic features F32.3 [facility] [address], [place] [address] Dec, [facility] [address], [place] [address] Dec, [facility] [address] [place] [id number] [place] [address] Dec, Onychomycosis B35.1 [facility] [address], [place] [address] Dec, [facility] [address] [address] Dec, [facility] [address] [place] [address] Nov, [facility] [address] [place] [address] Oct, Depression, major, recurrent, moderate 296.32 and Posttraumatic stress disorder 309.81 [facility] [address] [place] [id number] [place] [address] Oct, [facility] [address] [place] [id number] [place] [address] Oct, [place] [address] [place] [address] [id number] [place] [address] Oct, [place] [id number] [place] [address] Sep, Posttraumatic stress disorder 309.81 and Depression, major, recurrent, moderate 296.32 [place] [address] [place] [address] Sep, [place] [id number] [place] [address] Sep, Chronic airway obstruction, not elsewhere classified [id number] [place] [address] Sep, Onychomycosis 110.1 and DM neuro manif type II 250.[address] [place] [address] Sep, Chronic pain 338.29 ; Chronic airway obstruction, not elsewhere classified 496 ; Osteoarthritis of knees, bilateral 715.96 and On potassium wasting diuretic therapy V58.69 [address] [place] [address] Sep, Insect bites 919.4 ; Sinusitis 473.9 and GERD (gastroesophageal reflux disease) 530.81 [place] [address] [address] Aug, Depression, major, recurrent, moderate 296.32 and Posttraumatic stress disorder 309.81 [facility] [address], [place] [address] Aug, [facility] [address] [place] [address] Aug, [facility] [address], [place] [address] Aug, [facility] [id number] [address] July, Major depressive disorder, recurrent episode, moderate 296.32 and Posttraumatic stress disorder 309.81 [facility] [address], [place] [address] July, [facility] [address], [place] [address] July, [facility] [address], [place] [address] July, [facility] [address], [place] [address] July, [facility] [id number] [address] Jun, [facility] [id number] [address] Jun, [facility] [id number] [address] May, [facility] [id number] [place] [address] May, [facility] [id number] [address] May, [facility] [id number] [address] May, [facility] [place] [facility] [address] [id number] [place] [address] May, [facility] [place] [facility] [address] [id number] [place] [address] May, [facility] [place] [facility] [address] [facility] [id number] [place] [address] May, [facility] [place] [facility] [address] [id number] [place] [address] May, [facility] [place] [facility] [address] [id number] [place] [address] May, [facility] [place] [facility] [address] [id number] [place] [address] Apr, 2014 [facility] [place] [facility] [address] [facility] [id number] [place] [address] Apr, 2014 [facility] [place] [facility] [address] [facility] [id number] [place] [address] Apr, 2014 [facility] [place] [facility] [address] [facility] [id number] [place] [address] Apr, 2014 [facility] [place] [facility] [address] [facility] [id number] [place] [address] Apr, 2014 [facility] [place] [facility] [address] [facility] [id number] [place] [address] Apr, 2014 [facility] [place] [facility] [address] [facility] [id number] [place] [address] Apr, 2014 [facility] [place] [facility] [address] [facility] [id number] [place] [address] Apr, 2014 [facility] [place] [facility] [address] [facility] [id number] [place] [address] Apr, 2014 [facility] [place] [facility] [address] [facility] [id number] [place] [address] Mar, [facility] [place] [facility] [address] [id number] [place] [address] 30 Mar, 2014 [facility] [place] [facility] [address] [id number] [place] [address] Mar, [facility] [place] [facility] [address] [id number] [place] [address] 23 Mar, 2014 [facility] [place] [facility] [address] [id number] [place] [address] 15 Mar, 2014 [facility] [place] [facility] [address] [id number] [place] [address] 15 Mar, 2014 [facility] [place] [facility] [address] [id number] [place] [address] 15 Mar, 2014 [facility] [place] [facility] [address] [id number] [place] [address] 15 Mar, 2014 [facility] [place] [facility] [address] [id number] [place] [address] 15 Mar, 2014 [facility] [place] [facility] [address] [id number] [place] [address] 15 Mar, 2014 [facility] [place] [facility] [address] [id number] [place] [address] 14 Mar, 2014 [facility] [place] [facility] [address] [id number] [place] [address] 14 Mar, 2014 [facility] [place] [facility] [address] [id number] [place] [address] 14 Mar, 2014 [facility] [place] [facility] [address] [id number] [place] [address] 14 Mar, 2014 [facility] [place] [facility] [address] [id number] [place] [address] 14 Mar, 2014 [facility] [place] [facility] [address] [id number] [place] [address] 14 Mar, 2014 [facility] [place] [facility] [address] [id number] [place] [address] Mar, [facility] [place] [facility] [address] [id number] [place] [address] Mar, [facility] [place] [facility] [address] [id number] [place] [address] 16 Feb, 2014 [facility] [place] [facility] [address] [id number] [place] [address] 16 Feb, 2014 [facility] [place] [facility] [address] [id number] [place] [address] 15 Feb, 2014 [facility] [place] [facility] [address] [id number] [place] [address] 15 Feb, 2014 [facility] [place] [facility] [address] [id number] [place] [address] Feb, [facility] [place] [facility] [address] [id number] [place] [address] Feb, [facility] [place] [facility] [address] [id number] [place] [address] Jan, [facility] [place] [facility] [address] [id number] [place] [address] Jan, [facility] [place] [facility] [address] [id number] [place] [address] Jan, [facility] [place] [facility] [address] [id number], [place] [address] Jan, [facility] [place] [facility] [address] [id number], [place] [address] Jan, [facility] [place] [facility] [address] [id number] [place] [address] Jan, [facility] [place] [facility] [address] [id number] [place] [address] Jan, [facility] [place] [facility] [address] [id number] [place] [address] Jan, [facility] [place] [facility] [address] [id number] [place] [address] Jan, [facility] [place] [facility] [address] [id number] [place] [address] Jan, [facility] [place] [facility] [address] [id number] [place] [address] Dec, [facility] [place] [facility] [address] [id number] [place] [address] Dec, [facility] [place] [facility] [address] [id number] [place] [address] Dec, [facility] [place] [facility] [address] [id number] [place] [address] Dec, [facility] [place] [facility] [address] [id number] [place] [address] 16 Nov, 2013 [facility] [place] [facility] [address] [id number] [place] [address] 16 Nov, 2013 [facility] [place] [facility] [address] [id number] [place] [address] Nov, 2013 [facility] [place] [facility] [address] [id number] [place] [address] Nov, 2013 [facility] [place] [facility] [address] [id number] [place] [address] Nov, 2013 [facility] [place] [facility] [address] [id number] [place] [address] Nov, 2013 [facility] [place] [facility] [address] [id number] [place] [address] Oct, [facility] [place] [facility] [address] [id number] [place] [address] Oct, [facility] [place] [facility] [address] [id number] [place] [address] Oct, [facility] [place] [facility] [address] [id number] [place] [address] Oct, [facility] [place] [facility] [address] [id number] [place] [address] Sep, [facility] [place] [facility] [address] [id number] [place] [address] Sep, [facility] [place] [facility] [address] [id number] [place] [address] Sep, [facility] [place] [facility] [address] [id number] [place] [address] Sep, [facility] [place] [facility] [address] [id number] [place] [address] Sep, [facility] [place] [facility] [address] [id number] [place] [address] Sep, [facility] [place] [facility] [address] [id number] [place] [address] July, [facility] [place] [facility] [address] [id number] [place] [address] July, [facility] [place] [facility] [address] [id number] [place] [address] July, [facility] [place] [facility] [address] [id number] [place] [address] July, [facility] [place] [facility] [address] [id number] [place] [address] Jun, [facility] [place] [facility] [address] [id number] [place] [address] Jun, [facility] [place] [facility] [address] [id number] [place] [address] Jun, [facility] [place] [facility] [address] [id number] [place] [address] Jun, [facility] [place] [facility] [address] [id number] [place] [address] Jun, [facility] [place] [facility] [address] [id number] [place] [address] Jun, [facility] [place] [facility] [address] [id number] [place] [address] May, [facility] [place] [facility] [address] [id number] [place] [address] May, [facility] [place] [facility] [address] [facility] [id number] [place] [address] Apr, [facility] [place] [facility] [address] [id number] [place] [address] Apr, [facility] [place] [facility] [address] [id number] [place] [address] Apr, [facility] [place] [facility] [address] [id number] [place] [address] Apr, [facility] [place] [facility] [address] [facility] [id number] [place] [address] Apr, [facility] [place] [facility] [address] [facility] [id number] [place] [address] Apr, [facility] [place] [facility] [address] [facility] [id number] [place] [address] Apr, [facility] [place] [facility] [address] [facility] [id number] [place] [address] Mar, [facility] [place] [facility] [address] [facility] [id number] [place] [address] Mar, [facility] [place] [facility] [address] [id number] [place] [address] Mar, [facility] [place] [facility] [address] [id number] [place] [address] Mar, [facility] [place] [facility] [address] [facility] [id number] [place] [address] Mar, [facility] [place] [facility] [address] [facility] [id number], [place] [address] Mar, [facility] [place] [facility] [address] [id number] [place] [address] Mar, [facility] [address] [id number] [place] [address] Mar, [facility] [address] [id number] [place] [address] Feb, [facility] [place] [facility] [address] [id number] [place] [address] Feb, [facility] [address] [id number] [place] [address] Feb, [facility] [address] [id number] [place] [address] Feb, [facility] [address] [id number] [place] [address] Feb, [facility] [address] [id number] [place] [address] Feb, [facility] [address] [id number] [place] [address] Feb, [facility] [address] [id number] [place] [address] Jan, [facility] [address] [id number] [place] [address] Jan, [facility] [address] [id number] [place] [address] Jan, [facility] [address] [id number] [place] [address] Jan, [facility] [place] [facility] [address] [id number] [place] [address] Jan, [facility] [place] [facility] [address] [id number] [place] [address] Jan, [facility] [place] [facility] [address] [id number] [place] [id number] Jan, [facility] [place] [facility] [address] [id number] [id number] Jan, [facility] [place] [facility] [address] [id number] [place] [address] Dec, [facility] [place] [facility] [address] [id number], [place] [address] Dec, [facility] [place] [facility] [address] [id number], [place] [address] Dec, [facility] [place] [facility] [address] [id number] [place] [address] Dec, [facility] [place] [facility] [address] [id number], [place] [address] Dec, [facility] [place] [facility] [address] [id number], [place] [address] Dec, [facility] [place] [facility] [address] [id number], [place] [address] Dec, [facility] [place] [facility] [address] [id number], [place] [address] Dec, [facility] [place] [facility] [address] [id number], [place] [address] Dec, [facility] [place] [facility] [address] [id number], [place] [address] Dec, [facility] [place] [facility] [address] [id number][place] [id number] Nov, [facility] [place] [facility] [address] [id number][place] [id number] Nov, [facility] [place] [facility] [address] [id number], [place] [address] 24 Nov, 2012 [facility] [place] [facility] [address] [id number], [place] [address] 20 Nov, 2012 [facility] [place] [facility] [address] [id number], [place] [address] Nov, [facility] [place] [facility] [address] [id number] [place] [address] Nov, [facility] [place] [facility] [address] [id number] [place] [address] Nov, [facility] [place] [facility] [address] [id number] [place] [address] Nov, [facility] [place] [facility] [address] [id number] [place] [address] Oct, [facility] [place] [facility] [address] [id number] [place] [address] Oct, [facility] [place] [facility] [address] [id number] [place] [address] Oct, [facility] [place] [facility] [address] [id number] [place] [address] Sep, [facility] [place] [facility] [address] [id number] [place] [address] Sep, [facility] [place] [facility] [address] [id number] [place] [address] Sep, [facility] [place] [facility] [address] [id number] [place] [address] Sep, [facility] [place] [facility] [address] [id number] [place] [address] Sep, [facility] [place] [facility] [address] [id number] [place] [address] Aug, [facility] [place] [facility] [address] [id number] [place] [address] Aug, [facility] [place] [facility] [address] [id number] [place] [address] Aug, [facility] [place] [facility] [address] [id number] [place] [address] Aug, [facility] [place] [facility] [address] [id number] [place] [address] Aug, [facility] [address] [id number] [place] [address] Aug, [facility] [address] [id number] [place] [address] July, [facility] [address] [id number] [place] [address] July, [facility] [address] [id number] [place] [address] July, [facility] [address] [id number] [place] [address] July, [facility] [address] [id number] [place] [address] July, [facility] [address] [id number] [place] [address] July, [facility] [address] [id number] [place] [address] Jun, [facility] [address] [id number] [place] [address] Jun, [facility] [address] [id number] [place] [address] Jun, [facility] [address] [id number] [place] [address] Jun, [facility] [address] [id number] [place] [address] May, [facility] [address] [id number] [place] [address] May, [facility] [address] [id number] [place] [address] May, [facility] [address] [id number] [place] [address] Apr, [facility] [place] [facility] [address] [id number] [place] [address] Mar, [facility] [place] [facility] [address] [id number] [place] [address] 18 Mar, 2012 [facility] [place] [facility] [address] [id number] [place] [address] 17 Mar, 2012 [facility] [place] [facility] [address] [id number] [place] [address] 16 Mar, 2012 [facility] [place] [facility] [address] [id number] [place] [address] 15 Mar, 2012 [facility] [place] [facility] [address] [id number] [place] [address] Feb, [facility] [place] [facility] [address] [id number] [place] [address] Feb, [facility] [place] [facility] [address] [id number], [place] [address] Feb, [facility] [place] [facility] [address] [id number] [place] [address] Feb, [facility] [place] [facility] [address] [id number], [place] [address] Jan, [facility] [place] [facility] [address] [id number], [place] [address] Jan, [facility] [place] [facility] [address] [id number], [place] [address] Jan, [facility] [place] [facility] [address] [id number], [place] [address] Jan, [facility] [place] [facility] [address] [id number], [place] [address] Dec, [facility] [place] [facility] [address] [id number], [place] [address] Dec, [facility] [place] [facility] [address] [id number] [place] [address] Nov, [facility] [address] [id number] [place] [address] Oct, [facility] [address] [id number] [place] [address] Oct, [facility] [address] [id number] [place] [address] Oct, [facility] [address] [id number] [place] [address] Oct, [facility] [address] [id number] [place] [address] Oct, [facility] [address] [id number] [place] [address] Sep, [facility] [address] [id number] [place] [address] Sep, [facility] [address] [id number] [place] [address] Aug, [facility] [address] [place] [id number] Aug, [facility] [address] [id number] [place] [address] Aug, [facility] [address] [id number] [place] [address] July, [facility] [address] [id number] [place] [address] July, [facility] [address] [id number] [place] [address] Jun, [facility] [address] [id number] [place] [address] Jun, [facility] [address] [id number] [place] [address] Jun, [facility] [address] [id number] [place] [address] 13 Jun, 2011 [facility] [address] [id number] [place] [address] 15 Apr, 2011 [facility] [address] [id number] [place] [address] 15 Apr, 2011 [facility] [address] [id number] [place] [address] 10 Apr, 2011 [facility] [address] [id number] [place] [address] Mar, [facility] [address] [id number] [place] [address] Mar, [facility] [address] [id number] [place] [address] Mar, [facility] [address] [id number] [place] [address] Mar, [facility] [address] [id number] [place] [address] Mar, [facility] [address] [id number] [place] [address] Jan, [facility] [address] [id number] [place] [address] Jan, [facility] [address] [id number] [place] [address] Jan, [facility] [address] [id number] [place] [address] Mar, [facility] [address] [id number] [place] [address] Mar, [facility] [address] [id number] [place] [address] Feb, [facility] [address] [id number] [place] [address] Feb, [facility] [address] [facility] [id number], [place] [address] 16 Feb, 2010 [facility] [address] [facility] [id number], [place] [address] Jan, [facility] [address] [facility] [id number], [place] [address] 17 Jan, 2010 [facility] [address] [facility] [id number], [place] [address] Dec, [facility] [address] [facility] [id number] [address] Dec, [facility] [address] [facility] [id number], [place] [address] May, [facility] [id number], [place] [address] 10 Apr, 2009 [facility] [id number], [place] [address] Feb, [facility] [id number], [place] [address] Feb, [facility] [id number], [place] [address] Jan, [facility] [id number], [place] [address] Jan, [facility] [address] [id number], [place] [address] Jan, [facility] [address] [id number], [place] [address] Jan, [facility] [id number], [place] [address] Jan, IMMUNIZATIONS No Known Immunizations SOCIAL HISTORY Never Assessed REASON FOR VISIT knee pain post fall -twooden,RMA, pt states he was getting out the car 6 days ag o and his left knee popped and its been hurting since then PLAN OF CARE Activity Details Follow Up prn Reason:imaging VITAL SIGNS Height 66 in 2017-12-22 Weight 306.5 lbs 2017-12-22 Temperature 97.4 degrees Fahrenheit 2017-12-22 Heart Rate 81 bpm 2017-12-22 Respiratory Rate 20 2017-12-22 Oximetry on room air:97 % 2017-12-22 BMI 49.46 kg/m2 2017-12-22 Blood pressure systolic 138 mmHg 2017-12-22 Blood pressure diastolic 82 mmHg 2017-12-22 MEDICATIONS Medication Instructions Dosage Frequency Start Date End Date Duration Status Ventolin HFA 108 (90 Base) MCG/ACT Inhalation every 4 hrs 2 puffs as needed 4h Mar, Active Pataday 0.2 % Ophthalmic 2 times a day 1 drop to affected eyes 12h Mar, Active MS Contin 30 MG Orally every 12 hrs 1 tablet 12h Nov, 28 days Active HydrOXYzine Pamoate 50 MG TAKE ONE TO TWO CAPSULES BY MOUTH THREE TIMES DAILY NEEDED FOR ANXIETY AND SLEEP 15 Active Clickfine Pen [place] 31 gauge ONE - DAILY E11.42 100 Not-Taking Lexapro 10 MG Orally Once a day 0.5 tablet daily for one week then take full tab daily 24h Oct, 30 day(s) Active Victoza 18 MG/3ML Subcutaneous Once a day 1.2 mg 24h Aug, 30 days Active Atorvastatin Calcium 40 MG TAKE ONE TABLET BY MOUTH ONCE DAILY. DUE FOR FASTING LABS Active Insulin Syringe 31G X 5/16 subcutaneously Once a day as directed 24h Aug, Active Ibuprofen 800 MG Orally every 8 hours, PRN TAKE ONE TABLET BY MOUTH THREE TIMES DAILY NEEDED Mar, 90 days Active Pen [place] 31G X 6 MM as directed 24h May, Active Invega 6 MG Orally Once a day 2 tablets 24h 30 Active Gabapentin 600 MG TAKE TWO TABLETS BY MOUTH THREE TIMES DAILY 30 Active Cyclobenzaprine HCl 10 MG TAKE ONE TABLET BY MOUTH THREE TIMES DAILY NEEDED 10 Active Hydrocodone-Acetaminophen 5-325 MG Orally every 6 hrs 1 tablet as needed 6h Nov, 28 days Active Trazodone HCl 150 MG Orally Once a day 1 tablet at bedtime 24h July, 90 days Active Pantoprazole Sodium 40 MG TAKE ONE TABLET BY MOUTH ONCE DAILY 30 Active Metformin HCl 500 MG TAKE ONE TABLET BY MOUTH TWICE DAILY WITH MEALS 90 Active RESULTS No Results PROCEDURES Procedure Date Ordered Result Body Site [facility] VISIT ESTABLISHED PATIENT Dec 22, 2017 INSTRUCTIONS MEDICATIONS ADMINISTERED No Known Medications MEDICAL [...]
--- OUTSIDE RECORDS SUMMARY | 2018-10-04 06:32 | XMS REPORT ---
Author Author ESTHER CHAVEZ [facility] Address [address] [place] [address] Care Team Providers Care [employer] Tender Name Role Phone KATHYCIARA VILLEGASHANY Unavailable PROBLEMS Type Condition ICD9-CM Code GBB43-SM Code Onset Dates Condition Status SNOMED Code Problem Primary osteoarthritis of both knees M17.0 Active 973889819 Problem Nocturnal hypoxia G47.34 Active 401997533 Problem Pure hypercholesterolemia E78.0 Active 981185913 Problem Acute right-sided low back pain with right-sided sciatica M54.41 Active 63618958 Problem Type 2 diabetes mellitus with diabetic polyneuropathy E11.42 Active 147911856 Problem Posttraumatic stress disorder F43.10 Active 82770516 Problem Chronic systolic (congestive) heart failure I50.22 Active 639899455 Problem Severe major depression with psychotic features F32.3 Active 08131175 Problem Obesity, morbid, BMI 40.0-49.9 E66.01 Active 621665143 Problem Tobacco abuse Z72.0 Active 397918305 Problem Chronic systolic congestive heart failure I50.22 Active 241363181 Problem Primary insomnia F51.01 Active 1564426 Problem Essential hypertension I10 Active 78042371 Problem History of DVT (deep vein thrombosis) Z86.718 Active 466073251 Problem Chronic pain syndrome G89.4 Active 637783812 Problem BMI 45.0-49.9, adult Z68.42 Active 946804296 Problem Macrocytosis D75.89 Active 780422216 Problem Mood disorder F39 Active 03102109 Problem Mild episode of recurrent major depressive disorder F33.0 Active 965276580 Problem Non-ischemic cardiomyopathy I42.9 Active 63921089 Problem Chronic obstructive pulmonary disease, unspecified COPD type J44.9 Active 25864996 Problem Major depressive disorder, recurrent episode, unspecified severity F33.9 Active 52853370 Problem Gastroesophageal reflux disease, esophagitis presence not specified K21.9 Active 456822762 Problem MITCHELL treated with BiPAP G47.33 Active 26872096 Problem Chronic prescription opiate use Z79.891 Active 159318948 Problem PTSD (post-traumatic stress disorder) F43.10 Active 26933546 Problem History of weight loss surgery Z98.84 Active 640343004 ALLERGIES Substance Reaction Event Type Date Status Trintellix nausea vomiting, diarrhea Drug Allergy Oct, Active Chantix nausea Drug Allergy Oct, Active ENCOUNTERS Encounter Location Date Diagnosis [facility] [id number] [place] [address] Nov, Chest discomfort R07.89 ; Shortness of breath R06.02 ; Chronic systolic congestive heart failure I50.22 and Type 2 diabetes mellitus with diabetic polyneuropathy E11.42 [facility] [id number] [place] [address] Nov, Chronic pain syndrome G89.4 [facility] [id number] [place] [address] Oct, BMI 45.0-49.9, adult Z68.42 ; Type 2 diabetes mellitus with diabetic polyneuropathy E11.42 ; Chronic pain syndrome G89.4 ; Gastroesophageal reflux disease, esophagitis presence not specified K21.9 ; Decreased pedal pulses R09.89 and Precordial pain R07.2 [facility] [id number] [place] [address] Oct, [facility] [id number] [place] [address] Oct, Mood disorder F39 [facility] [facility] [id number] [place] [address] Oct, Mood disorder F39 ; Posttraumatic stress disorder F43.10 and BMI 45.0-49.9, adult Z68.42 [facility] [id number] [place] [address] Sep, Primary osteoarthritis of both knees M17.0 and Chronic pain syndrome G89.4 [facility] [id number] [place] [address] Sep, Mood disorder F39 and Posttraumatic stress disorder F43.10 [facility] [id number] [place] [address] Aug, Primary osteoarthritis of both knees M17.0 and Chronic pain syndrome G89.4 [facility] [id number] [place] [address] July, Primary osteoarthritis of both knees M17.0 and Chronic pain syndrome G89.4 [facility] [id number] [place] [address] July, Type 2 diabetes mellitus with diabetic polyneuropathy E11.42 ; Essential hypertension I10 ; Pure hypercholesterolemia E78.0 ; Chronic prescription opiate use Z79.891 ; Tobacco abuse Z72.0 ; Primary osteoarthritis of both knees M17.0 ; Primary insomnia F51.01 and BMI 45.0-49.9, adult Z68.42 [facility] [id number] [place] [address] 08 Jul, 2017 Medicare annual wellness visit, [...] specified K21.9 and Encounter for immunization Z23 [facility] [id number] [place] [address] July, Primary osteoarthritis of both knees M17.0 and Chronic pain syndrome G89.4 [facility] [id number] [place] [address] Jun, Infection of right ear H66.91 ; Wheezing on auscultation R06.2 and BMI 45.0-49.9, adult Z68.42 [facility] [id number] [place] [address] Jun, [facility] [address] [place] [address] Jun, Primary osteoarthritis of both knees M17.0 and Chronic pain syndrome G89.4 [facility] [address] [place] [address] May, [facility] [id number] [place] [address] May, BMI 45.0-49.9, adult Z68.42 ; Mood disorder F39 and Posttraumatic stress disorder F43.10 [facility] [id number] [place] [address] May, [facility] [id number] [place] [address] May, Primary osteoarthritis of both knees M17.0 and Chronic pain syndrome G89.4 [facility] [id number] [place] [address] May, Mood disorder F39 [facility] [id number] [place] [address] Apr, Type 2 diabetes mellitus with diabetic polyneuropathy E11.42 [facility] [address] [place] [address] Apr, [facility] [id number] [place] [address] Apr, Primary osteoarthritis of both knees M17.0 and Chronic pain syndrome G89.4 [facility] [address], [place] [address] Apr, Mood disorder F39 [facility] [address] [place] [address] Mar, Mood disorder F39 and Posttraumatic stress disorder F43.10 [facility] [address] [place] [address] Mar, Primary osteoarthritis of both knees M17.0 and Chronic pain syndrome G89.4 [facility] [id number] [place] [address] Feb, Primary osteoarthritis of both knees M17.0 and Chronic pain syndrome G89.4 [facility] [id number] [place] [address] Feb, Mood disorder F39 [facility] [id number] [place] [address] Jan, Type 2 diabetes mellitus with diabetic polyneuropathy E11.42 ; Primary osteoarthritis of both knees M17.0 ; Mood disorder F39 ; Obesity, morbid, BMI 40.0-49.9 E66.01 ; Chronic prescription opiate use Z79.891 ; Acute suppurative otitis media of both ears without spontaneous rupture of tympanic membranes, recurrence not specified H66.003 and BMI 45.0-49.9, adult Z68.42 [place] [place] [id number] [place] [address] Jan, Primary osteoarthritis of both knees M17.0 and Chronic pain syndrome G89.4 [facility] [id number] [place] [address] Dec, Mood disorder F39 and Posttraumatic stress disorder F43.10 [facility] [id number] [place] [address] Dec, Primary osteoarthritis of both knees M17.0 and Chronic pain syndrome G89.4 [facility] [id number] [place] [address] 18 Nov, 2016 Chronic pain syndrome G89.4 [facility] [id number] [place] [address] 15 Nov, 2016 Primary osteoarthritis of both knees M17.0 and Chronic pain syndrome G89.4 [facility] [id number] [place] [address] 13 Nov, 2016 Type 2 diabetes mellitus with diabetic polyneuropathy E11.42 and Chronic pain syndrome G89.4 [facility] [id number] [place] [address] 12 Nov, 2016 Posttraumatic stress disorder F43.10 and Mood disorder F39 [facility] [id number] [place] [address] Oct, Chronic pain syndrome G89.4 [facility] [id number] [place] [address] Oct, Type 2 diabetes mellitus with diabetic polyneuropathy E11.42 ; BMI 45.0-49.9, adult Z68.42 ; Primary osteoarthritis of both knees M17.0 and Skin lesion L98.9 [facility] [id number] [place] [address] Oct, Chronic pain syndrome G89.4 [facility] [id number] [place] [address] Sep, Chronic pain syndrome G89.4 [facility] [id number] [place] [address] Sep, [facility] [id number] [place] [address] Sep, Chronic pain syndrome G89.4 [facility] [id number] [place] [address] Aug, Chronic pain syndrome G89.4 [facility] [id number] [place] [address] Aug, [facility] [id number] [place] [address] Aug, Macrocytosis D75.89 and Pure hypercholesterolemia E78.0 [facility] [id number] [place] [address] Aug, Pure hypercholesterolemia E78.0 [facility] [address] [place] [address] Aug, Macrocytosis D75.89 [facility] [id number] [place] [address] Aug, Pure hypercholesterolemia E78.0 ; Type 2 diabetes mellitus with diabetic polyneuropathy E11.42 ; MITCHELL treated with BiPAP G47.33 and Chronic pain syndrome G89.4 [facility] [id number] [place] [address] Aug, [facility] [id number] [place] [address] Aug, Hemorrhoids, unspecified hemorrhoid type K64.9 [facility] [id number] [place] [address] Aug, Chronic pain syndrome G89.4 ; Type 2 diabetes mellitus with diabetic polyneuropathy E11.42 ; Hemorrhoids, unspecified hemorrhoid type K64.9 ; Tobacco abuse Z72.0 and Primary osteoarthritis of both knees M17.0 [facility] [id number] [place] [address] July, Chronic pain syndrome G89.4 [facility] [id number] [place] [address] July, [facility] [id number] [place] [address] Jun, Chronic pain syndrome G89.4 [facility] [id number] [place] [address] Jun, Chronic pain syndrome G89.4 [facility] [id number] [place] [address] Jun, Severe major depression with psychotic features F32.3 and Posttraumatic stress disorder F43.10 [facility] [id number] [place] [address] Jun, Chronic pain syndrome G89.4 [facility] [id number] [address] Jun, [facility] [id number] [place] [address] May, Chronic pain syndrome G89.4 [facility] [address], [place] [address] May, Tobacco abuse Z72.0 [facility] [id number] [place] [address] May, [facility] [id number] [place] [address] Apr, Chronic pain syndrome G89.4 [facility] [id number] [place] [address] Apr, [facility] [id number] [place] [address] Apr, Right foot pain M79.671 [facility] [address], [place] [address] Mar, Type 2 diabetes mellitus with diabetic polyneuropathy E11.42 ; MITCHELL treated with BiPAP G47.33 ; Pure hypercholesterolemia E78.0 ; Chronic pain syndrome G89.4 ; Tobacco abuse Z72.0 and Obesity, morbid, BMI 40.0-49.9 E66.01 [facility] [address], [place] [address] Mar, [facility] [address], [place] [address] Mar, [facility] [address], [place] [address] Mar, [facility] [address], [place] [address] Mar, [facility] [address], [place] [address] Mar, [facility] [address], [place] [address] Mar, Severe major depression with psychotic features F32.3 and Posttraumatic stress disorder F43.10 [facility] [address], [place] [address] Mar, [facility] [address], [place] [address] Feb, [facility] [id number] [place] [address] Feb, [facility] [address] [place] [address] Jan, [facility] [address], [place] [address] Jan, [facility] [id number] [place] [address] Dec, Posttraumatic stress disorder F43.10 and Severe major depression with psychotic features F32.3 [facility] [address], [place] [address] Dec, Type 2 diabetes mellitus with diabetic polyneuropathy E11.42 ; Chronic pain syndrome G89.4 and Acute right-sided low back pain with right-sided sciatica M54.41 [facility] [address], [place] [address] Dec, [facility] [address], [place] [address] Dec, [facility] [address], [place] [address] 08 Nov, 2015 [facility] [id number] [address] 07 Nov, 2015 [facility] [address], [place] [address] Nov, [facility] [id number] [place] [address] Oct, [facility] [id number] [place] [address] Oct, [facility] [id number] [place] [address] Sep, Dental examination Z01.20 [facility] [id number] [place] [address] Sep, [facility] [id number] [place] [address] Sep, Type 2 diabetes mellitus with diabetic polyneuropathy E11.42 ; Chronic pain syndrome G89.4 ; Chronic prescription opiate use Z79.891 ; Injury of right index finger, sequela S69.91XS and Anejaculation N50.8 [facility] [id number] [place] [address] Aug, [facility] [id number] [place] [address] Aug, [facility] [id number] [place] [address] Aug, Cellulitis of finger of right hand L03.011 [facility] [id number] [place] [address] July, [facility] [id number] [place] [address] July, [facility] [id number] [place] [address] Jun, Onychomycosis B35.1 [facility] [id number] [place] [address] Jun, Severe major depression with psychotic features F32.3 and Posttraumatic stress disorder F43.10 [facility] [id number] [place] [address] Jun, [facility] [address], [place] [address] Jun, [facility] [id number] [place] [address] Jun, [facility] [id number] [place] [address] May, Type 2 diabetes mellitus with diabetic polyneuropathy E11.42 [facility] [id number] [place] [address] May, Type 2 diabetes mellitus with diabetic polyneuropathy E11.42 and Urinary hesitancy R39.11 [facility] [id number] [place] [address] May, Type 2 diabetes mellitus with diabetic polyneuropathy E11.42 ; Left hip pain M25.552 and Benign prostatic hyperplasia with lower urinary tract symptoms, unspecified morphology N40.1 [facility] [id number] [place] [address] May, [facility] [id number] [place] [address] Apr, Severe major depression with psychotic features F32.3 and Posttraumatic stress disorder F43.10 [facility] [address], [place] [address] Apr, [facility] [address], [place] [address] Mar, [facility] [id number] [place] [address] Mar, Dysuria R30.0 and Urinary hesitancy R39.11 [facility] [address], [place] [address] Mar, Onychomycosis B35.1 [facility] [id number] [place] [address] Mar, [facility] [address], [place] [address] Feb, [facility] [id number] [place] [address] Jan, [facility] [address], [place] [address] Jan, Posttraumatic stress disorder F43.10 and Severe major depression with psychotic features F32.3 [facility] [id number], [place] [address] Jan, [facility] [id number] [place] [phone] Jan, Chronic pain syndrome G89.4 ; Type 2 diabetes mellitus with diabetic polyneuropathy E11.42 ; Decreased pedal pulses R09.89 and Paresthesia of both hands R20.2 [facility] [id number] [place] [id number] Dec, Posttraumatic stress disorder F43.10 and Severe major depression with psychotic features F32.3 [facility] [id number] [place] [address] Dec, [facility] [id number], [place] [address] Dec, [facility] [id number], [place] [address] Dec, Onychomycosis B35.1 [facility] [id number], [place] [address] Dec, [facility] [id number] [place] [id number] Dec, [facility] [id number], [place] [address] Nov, [facility] [id number] [place] [address] Oct, Depression, major, recurrent, moderate 296.32 and Posttraumatic stress disorder 309.81 [place] [id number] [place] [address] Oct, [place] [id number] [place] [id number] Oct, [place] [id number] [place] [phone] Oct, [address] [address] Sep, Posttraumatic stress disorder 309.81 and Depression, major, recurrent, moderate 296.[address] [address] Sep, [address] [address] Sep, Chronic airway obstruction, not elsewhere classified [address] [address] Sep, Onychomycosis 110.1 and DM neuro manif type II 250.[id number] [place] [address] Sep, Chronic pain 338.29 ; Chronic airway obstruction, not elsewhere classified 496 ; Osteoarthritis of knees, bilateral 715.96 and On potassium wasting diuretic therapy V58.69 [id number] [place] [address] Sep, Insect bites 919.4 ; Sinusitis 473.9 and GERD (gastroesophageal reflux disease) 530.81 [place] [id number] [place] [address] Aug, Depression, major, recurrent, moderate 296.32 and Posttraumatic stress disorder 309.81 [place] [address] [place] [place] [id number] [place] [address] Aug, [place] [address] [address] Aug, [facility] [address] [facility] [id number], [place] [address] Aug, [facility] [id number], [place] [address] July, Major depressive disorder, recurrent episode, moderate 296.32 and Posttraumatic stress disorder 309.81 [facility] [id number], [place] [address] July, [facility] [address] [facility] [id number], [place] [address] July, [facility] [address] [id number], [place] [address] July, [facility] [address], [place] [address] July, [facility] [address] [id number], [place] [address] Jun, [facility] [address] [id number], [place] [address] Jun, [facility] [address] [id number], [place] [address] May, [facility] [address] [id number], [place] [address] May, [facility] [address] [id number], [place] [address] May, [facility] [address] [facility] [id number], [place] [address] May, [facility] [address] [facility] [id number], [place] [address] May, [facility] [address] [facility] [id number], [place] [address] May, [facility] [address] [id number], [place] [address] May, [facility] [place] [facility] [address] [id number] [place] [address] May, [facility] [place] [facility] [address] [id number] [place] [address] May, [facility] [place] [facility] [address] [id number] [place] [address] Apr, 2014 [facility] [place] [facility] [address] [id number] [place] [address] Apr, 2014 [facility] [place] [facility] [address] [id number] [place] [address] Apr, 2014 [facility] [place] [facility] [address] [id number] [place] [address] Apr, 2014 [facility] [place] [facility] [address] [id number] [place] [address] Apr, 2014 [facility] [place] [facility] [address] [id number] [place] [address] Apr, [facility] [place] [facility] [address] [id number] [place] [address] Apr, [facility] [place] [facility] [address] [facility] [id number] [place] [address] Apr, [facility] [place] [facility] [address] [id number] [place] [address] Apr, [facility] [place] [facility] [address] [id number] [place] [address] Mar, [facility] [place] [facility] [address] [id number] [place] [address] Mar, [facility] [place] [facility] [address] [facility] [id number] [place] [address] Mar, [facility] [place] [facility] [address] [facility] [id number] [place] [address] Mar, [facility] [place] [facility] [address] [id number] [place] [address] 15 Mar, 2014 [facility] [place] [facility] [address] [id number] [place] [address] 15 Mar, 2014 [facility] [place] [facility] [address] [id number] [place] [address] 15 Mar, 2014 [facility] [place] [facility] [address] [id number] [place] [address] 15 Mar, 2014 [facility] [place] [facility] [address] [id number] [place] [address] 15 Mar, 2014 [facility] [place] [facility] [address] [id number] [place] [address] 15 Mar, 2014 [facility] [place] [facility] [address] [id number] [place] [address] 14 Mar, 2014 [facility] [place] [facility] [address] [id number] [place] [address] 14 Mar, 2014 [facility] [place] [facility] [address] [id number] [place] [address] 14 Mar, 2014 [facility] [place] [facility] [address] [id number] [place] [address] 14 Mar, 2014 [facility] [place] [facility] [address] [id number] [place] [address] 14 Mar, 2014 [facility] [place] [facility] [address] [id number], [place] [address] 14 Mar, 2014 [facility] [place] [facility] [address] [id number] [place] [address] 09 Mar, 2014 [facility] [place] [facility] [address] [id number] [place] [address] 09 Mar, 2014 [facility] [place] [facility] [address] [id number], [place] [address] 16 Feb, 2014 [facility] [place] [facility] [address] [id number], [place] [address] 16 Feb, 2014 [facility] [place] [facility] [address] [id number] [place] [address] 15 Feb, 2014 [facility] [place] [facility] [address] [id number] [place] [address] 15 Feb, 2014 [facility] [place] [facility] [address] [facility] [id number] [place] [address] 15 Feb, 2014 [facility] [place] [facility] [address] [id number] [place] [address] 15 Feb, 2014 [facility] [place] [facility] [address] [id number] [place] [address] Jan, [facility] [place] [facility] [address] [id number] [place] [address] Jan, [facility] [place] [facility] [address] [facility] [id number] [place] [address] Jan, [facility] [place] [facility] [address] [id number] [place] [address] Jan, [facility] [place] [facility] [address] [facility] [id number] [place] [address] Jan, [facility] [place] [facility] [address] [facility] [id number] [place] [address] Jan, [facility] [place] [facility] [address] [id number], [place] [address] Jan, [facility] [place] [facility] [address] [id number], [place] [address] Jan, [facility] [place] [facility] [address] [id number], [place] [address] Jan, [facility] [place] [facility] [address] [id number], [place] [address] Jan, [facility] [place] [facility] [address] [facility] [id number] [place] [address] Dec, [facility] [place] [facility] [address] [id number] [place] [address] Dec, [facility] [place] [facility] [address] [id number] [place] [address] Dec, [facility] [place] [facility] [address] [id number] [place] [address] Dec, [facility] [place] [facility] [address] [id number] [place] [address] Nov, [facility] [place] [facility] [address] [id number] [place] [address] Nov, 2013 [facility] [place] [facility] [address] [id number] [place] [address] Nov, [facility] [place] [facility] [address] [id number] [place] [address] Nov, [facility] [place] [facility] [address] [id number] [place] [address] Nov, [facility] [place] [facility] [address] [id number] [place] [address] Nov, [facility] [place] [facility] [address] [id number] [place] [address] Oct, [facility] [place] [facility] [address] [id number] [place] [address] Oct, [facility] [place] [facility] [address] [id number] [place] [address] Oct, [facility] [place] [facility] [address] [id number] [place] [address] Oct, [facility] [place] [facility] [address] [id number] [place] [address] Sep, [facility] [place] [facility] [address] [id number] [place] [address] Sep, [facility] [place] [facility] [address] [id number] [place] [address] Sep, [facility] [place] [facility] [address] [id number] [place] [address] Sep, [facility] [place] [facility] [address] [id number] [place] [address] Sep, [facility] [place] [facility] [address] [id number] [place] [address] Sep, [facility] [place] [facility] [address] [id number] [place] [address] July, [facility] [place] [facility] [address] [id number] [place] [address] July, [facility] [place] [facility] [address] [id number] [place] [address] July, [facility] [place] [facility] [address] [id number] [place] [address] July, [facility] [place] [facility] [address] [id number] [place] [address] Jun, [facility] [place] [facility] [address] [id number] [place] [address] Jun, [facility] [place] [facility] [address] [id number] [place] [address] Jun, [facility] [place] [facility] [address] [id number] [place] [address] Jun, [facility] [place] [facility] [address] [id number] [place] [address] Jun, [facility] [place] [facility] [address] [id number] [place] [address] Jun, [facility] [place] [facility] [address] [id number] [place] [address] May, [facility] [place] [facility] [address] [id number] [place] [address] May, [facility] [place] [facility] [address] [id number] [place] [address] Apr, [facility] [place] [facility] [address] [id number] [place] [address] Apr, [facility] [place] [facility] [address] [id number] [place] [address] Apr, [facility] [place] [facility] [address] [id number] [place] [address] Apr, [facility] [place] [facility] [address] [id number] [place] [address] Apr, [facility] [place] [facility] [address] [id number] [place] [address] Apr, [facility] [place] [facility] [address] [id number] [place] [address] Apr, [facility] [place] [facility] [address] [id number] [place] [address] Mar, [facility] [place] [facility] [address] [id number] [place] [address] Mar, [facility] [place] [facility] [address] [id number] [place] [address] Mar, [facility] [place] [facility] [address] [id number] [place] [address] Mar, [facility] [place] [facility] [address] [id number] [place] [address] Mar, [facility] [place] [facility] [address] [id number] [place] [address] Mar, [facility] [place] [facility] [address] [id number] [place] [address] Mar, [facility] [place] [facility] [address] [id number] [place] [address] Mar, [facility] [place] [facility] [address] [id number] [place] [address] Feb, [facility] [place] [facility] [address] [id number], [place] [address] Feb, [facility] [place] [facility] [address] [id number], [place] [address] Feb, [facility] [place] [facility] [address] [id number], [place] [address] Feb, [facility] [place] [facility] [address] [id number], [place] [address] Feb, [facility] [place] [facility] [address] [id number] [place] [address] Feb, [facility] [place] [facility] [address] [id number], [place] [address] Feb, [facility] [place] [facility] [address] [facility] [id number], [place] [address] Jan, [facility] [place] [facility] [address] [id number], [place] [address] Jan, [facility] [place] [facility] [address] [id number], [place] [address] Jan, [facility] [place] [facility] [address] [facility] [id number], [place] [address] Jan, [facility] [place] [facility] [address] [id number], [place] [address] Jan, [facility] [place] [facility] [address] [id number], [place] [address] Jan, [facility] [place] [facility] [address] [id number][place] [address] Jan, [facility] [place] [facility] [address] [id number] [id number] Jan, [facility] [place] [facility] [address] [id number], [place] [address] Dec, [facility] [place] [facility] [address] [id number], [place] [address] Dec, [facility] [place] [facility] [address] [id number] [place] [address] Dec, 2012 [facility] [place] [facility] [address] [id number], [place] [address] Dec, [facility] [place] [facility] [address] [id number] [place] [address] Dec, [facility] [place] [facility] [address] [id number], [place] [address] Dec, 2012 [facility] [place] [facility] [address] [id number] [place] [address] Dec, [facility] [place] [facility] [address] [id number], [place] [address] Dec, [facility] [place] [facility] [address] [id number], [place] [address] Dec, [facility] [place] [facility] [address] [id number], [place] [address] 04 Dec, 2012 [facility] [place] [facility] [address] [id number][place] [id number] 27 Nov, 2012 [facility] [place] [facility] [address] [id number][place] [id number] 27 Nov, 2012 [facility] [place] [facility] [address] [id number], [place] [address] 24 Nov, 2012 [facility] [place] [facility] [address] [id number], [place] [address] 20 Sep, 2012 [facility] [place] [facility] [address] [id number], [place] [address] 19 Nov, 2012 [facility] [place] [facility] [address] [id number], [place] [address] 13 Nov, 2012 [facility] [place] [facility] [address] [id number], [place] [address] 10 Nov, 2012 [facility] [place] [facility] [address] [id number] [place] [address] Nov, [facility] [address] [id number] [place] [address] Oct, [facility] [address] [id number] [place] [address] Oct, [facility] [address] [id number] [place] [address] Oct, [facility] [address] [id number] [place] [address] Sep, [facility] [address] [id number] [place] [address] Sep, [facility] [address] [id number] [place] [address] Sep, [facility] [address] [id number] [place] [address] Sep, [facility] [address] [id number] [place] [address] Sep, [facility] [address] [id number] [place] [address] Aug, [facility] [address] [id number] [place] [address] Aug, [facility] [address] [id number] [place] [address] Aug, [facility] [address] [id number] [place] [address] Aug, [facility] [place] [facility] [address] [id number] [place] [address] Aug, [facility] [place] [facility] [address] [id number] [place] [address] Aug, [facility] [place] [facility] [address] [id number] [place] [address] July, [facility] [address] [id number] [place] [address] July, [facility] [address] [id number] [place] [address] July, [facility] [address] [id number] [place] [address] July, [facility] [address] [id number] [place] [address] July, [facility] [address] [id number] [place] [address] July, [facility] [address] [id number] [place] [address] Jun, [facility] [address] [id number] [place] [address] Jun, [facility] [address] [id number] [place] [address] Jun, [facility] [address] [id number] [place] [address] Jun, [facility] [address] [id number] [place] [address] May, [facility] [address] [id number] [place] [address] May, [facility] [address] [id number], [place] [address] May, [facility] [address] [id number] [place] [address] Apr, [facility] [address] [id number] [place] [address] Mar, [facility] [place] [facility] [address] [id number] [place] [address] Mar, [facility] [address] [id number], [place] [address] 17 Mar, 2012 [facility] [place] [facility] [address] [id number] [place] [address] 16 Mar, 2012 [facility] [place] [facility] [address] [id number] [place] [address] 15 Mar, 2012 [facility] [place] [facility] [address] [facility] [id number] [place] [address] 31 Feb, 2012 [facility] [place] [facility] [address] [id number] [place] [address] 31 Feb, 2012 [facility] [place] [facility] [address] [id number] [place] [address] Feb, [facility] [place] [facility] [address] [id number] [place] [address] Feb, [facility] [place] [facility] [address] [id number] [place] [address] Jan, [facility] [place] [facility] [address] [id number] [place] [address] Jan, [facility] [place] [facility] [address] [facility] [id number] [place] [address] Jan, [facility] [place] [facility] [address] [facility] [id number] [place] [address] Jan, [facility] [place] [facility] [address] [facility] [id number], [place] [address] Dec, [facility] [place] [facility] [address] [id number], [place] [address] Dec, [facility] [place] [facility] [address] [id number] [place] [address] Nov, [facility] [place] [facility] [address] [facility] [id number], [place] [address] Oct, [facility] [place] [facility] [address] [facility] [id number] [place] [address] Oct, [facility] [place] [facility] [address] [id number] [place] [address] Oct, [facility] [address] [id number] [place] [address] Oct, [facility] [address] [id number] [place] [address] Oct, [facility] [address] [id number] [place] [address] Sep, [facility] [address] [id number] [place] [address] Sep, [facility] [address] [facility] [id number] [place] [address] Aug, Via [address] [id number] Aug, [facility] [address] [id number] [place] [address] Aug, [facility] [address] [id number] [place] [address] July, [facility] [address] [id number] [place] [address] July, [facility] [address] [facility] [id number] [place] [address] Jun, [facility] [address] [id number] [place] [address] Jun, [facility] [address] [id number] [place] [address] Jun, [facility] [address] [id number] [place] [address] Jun, [facility] [address] [id number] [place] [address] Apr, [facility] [address] [id number] [place] [address] Apr, [facility] [address] [id number] [place] [address] Apr, [facility] [address] [id number] [place] [address] Mar, [facility] [address] [id number] [place] [address] Mar, [facility] [address] [id number] [place] [address] Mar, [facility] [address] [id number] [place] [address] Mar, [facility] [address] [id number] [place] [address] Mar, [facility] [address] [id number] [place] [address] Jan, [facility] [address] [id number] [place] [address] Jan, [facility] [address] [id number] [place] [address] Jan, [facility] [address] [id number] [place] [address] Mar, [facility] [address] [id number] [place] [address] Mar, [facility] [address] [id number], [place] [address] Feb, [facility] [place] [facility] [address] [id number] [place] [address] Feb, [facility] [place] [facility] [address] [id number] [place] [address] Feb, [facility] [place] [facility] [address] [id number] [place] [address] Jan, [facility] [place] [facility] [address] [id number], [place] [address] Jan, [facility] [id number] [address] Dec, [facility] [id number], [place] [address] Dec, [facility] [id number] [place] [address] May, [facility] [id number] [place] [address] Apr, [facility] [id number] [place] [address] Feb, [facility] [id number] [place] [address] Feb, [facility] [id number] [place] [address] Jan, [facility] [id number] [place] [address] Jan, [facility] [id number] [place] [address] Jan, [facility] [id number], [place] [address] Jan, [facility] [id number], [place] [address] Jan, IMMUNIZATIONS No Known Immunizations SOCIAL HISTORY Never Assessed REASON FOR VISIT Pain management (chronic)-Rupinder, Pt would like diabetic shoes PLAN OF CARE Activity Details Follow Up 3 Months Reason:DMII/Chronic pain Pending Test MICROALBUMIN, URINE (IN HOUSE) VITAL SIGNS Height 66 in 2017-11-04 Weight 302.9 lbs 2017-11-04 Temperature 97.7 degrees Fahrenheit 2017-11-04 Heart Rate 96 bpm 2017-11-04 Respiratory Rate 22 2017-11-04 BMI 48.88 kg/m2 2017-11-04 Blood pressure systolic 128 mmHg 2017-11-04 Blood pressure diastolic 84 mmHg 2017-11-04 MEDICATIONS Medication Instructions Dosage Frequency Start Date End Date Duration Status Atorvastatin Calcium 40 MG TAKE ONE TABLET BY MOUTH ONCE DAILY. DUE FOR FASTING LABS Active Metformin HCl 500 MG TAKE ONE TABLET BY MOUTH TWICE DAILY WITH MEALS 90 Active Insulin Syringe 31G X 5/16 subcutaneously Once a day as directed 24h Aug, Active Ibuprofen 800 MG TAKE ONE TABLET BY MOUTH THREE TIMES DAILY NEEDED 90 days Active Trazodone HCl 150 MG Orally Once a day 1 tablet at bedtime 24h July, 90 days Active Cyclobenzaprine HCl 10 MG TAKE ONE TABLET BY MOUTH THREE TIMES DAILY NEEDED 10 Active Pantoprazole Sodium 40 MG TAKE ONE TABLET BY MOUTH ONCE DAILY 30 Active HydrOXYzine Pamoate 50 MG TAKE ONE TO TWO CAPSULES BY MOUTH THREE TIMES DAILY NEEDED FOR ANXIETY AND SLEEP Active Victoza 18 MG/3ML Subcutaneous Once a day 1.2 mg 24h Aug, 30 days Active Gabapentin 600 MG TAKE TWO TABLETS BY MOUTH THREE TIMES DAILY 30 Active MS Contin 30 MG Orally every 12 hrs 1 tablet 12h Oct, 28 days Active Pataday 0.2 % Ophthalmic 2 times a day 1 drop to affected eyes 12h Mar, Active Hydrocodone-Acetaminophen 5-325 MG Orally every 6 hrs 1 tablet as needed 6h Oct, 28 days Active Pen [place] 31G X 6 MM as directed 24h May, Active Clickfine Pen [place] 31 gauge ONE - DAILY E11.42 100 Active Invega 6 MG Orally Once a day 2 tablets 24h Active Ventolin HFA 108 (90 Base) MCG/ACT Inhalation every 4 hrs 2 puffs as needed 4h Mar, Active Lexapro 10 MG Orally Once a day 0.5 tablet daily for one week then take full tab daily 24h Oct, 30 day(s) Active RESULTS Name Result Date Reference Range A1C (IN HOUSE) 2017-11-04 A1C IN HOUSE 5.5 4.3 - 5.6 % Previous A1c 4.9 Lot [id number] Exp date 05/2019 JENNIFER 2017-11-10 PROCEDURES Procedure Date Ordered Result Body Site GLYCATED HEMOGLOBIN TEST Nov 04, 2017 MICROALBUMIN, SEMIQUANT Nov 04, 2017 [facility] VISIT ESTABLISHED PATIENT Nov 04, 2017 INSTRUCTIONS MEDICATIONS ADMINISTERED No Known Medications [...]
[2018-10-04] MEDS ORDERED: ceFAZolin INJECTION 1,000 MG ONE (06:33)
--- OUTSIDE RECORDS SUMMARY | 2018-10-04 06:33 | XMS REPORT ---
Author Author ESTHER CHAVEZ [facility] Address [address] [place] [address] Care Team Providers Care Rehabilitation Director Name Role Phone KATHYCIARA VILLEGASHANY Unavailable PROBLEMS Type Condition ICD9-CM Code [id number] Code Onset Dates Condition Status SNOMED Code Problem Primary osteoarthritis of both knees M17.0 Active 106795123 Problem Nocturnal hypoxia G47.34 Active 534813170 Problem Pure hypercholesterolemia E78.0 Active 446538658 Problem Acute right-sided low back pain with right-sided sciatica M54.41 Active 55656554 Problem Type 2 diabetes mellitus with diabetic polyneuropathy E11.42 Active 658568177 Problem Posttraumatic stress disorder F43.10 Active 21647510 Problem Chronic systolic (congestive) heart failure I50.22 Active 987668775 Problem Severe major depression with psychotic features F32.3 Active 38482359 Problem Obesity, morbid, BMI 40.0-49.9 E66.01 Active 938481868 Problem Tobacco abuse Z72.0 Active 352656509 Problem Chronic systolic congestive heart failure I50.22 Active 080737580 Problem Primary insomnia F51.01 Active 4755435 Problem Essential hypertension I10 Active 01770456 Problem History of DVT (deep vein thrombosis) Z86.718 Active 097738482 Problem Chronic pain syndrome G89.4 Active 681729119 Problem BMI 45.0-49.9, adult Z68.42 Active 198225114 Problem Macrocytosis D75.89 Active 980529324 Problem Mood disorder F39 Active 81538552 Problem Mild episode of recurrent major depressive disorder F33.0 Active 499394061 Problem Non-ischemic cardiomyopathy I42.9 Active 75648010 Problem Chronic obstructive pulmonary disease, unspecified COPD type J44.9 Active 84313370 Problem Major depressive disorder, recurrent episode, unspecified severity F33.9 Active 17882255 Problem Gastroesophageal reflux disease, esophagitis presence not specified K21.9 Active 656166792 Problem MITCHELL treated with BiPAP G47.33 Active 88583579 Problem Chronic prescription opiate use Z79.891 Active 683563225 Problem PTSD (post-traumatic stress disorder) F43.10 Active 58186706 Problem History of weight loss surgery Z98.84 Active 885758598 ALLERGIES No Information ENCOUNTERS Encounter Location Date Diagnosis [place] [id number] [place] [address] Nov, Chest discomfort R07.89 ; Shortness of breath R06.02 ; Chronic systolic congestive heart failure I50.22 and Type 2 diabetes mellitus with diabetic polyneuropathy E11.42 [place] [id number] [place] [address] Nov, Chronic pain syndrome G89.4 [place] [id number] [place] [address] Oct, BMI 45.0-49.9, adult Z68.42 ; Type 2 diabetes mellitus with diabetic polyneuropathy E11.42 ; Chronic pain syndrome G89.4 ; Gastroesophageal reflux disease, esophagitis presence not specified K21.9 ; Decreased pedal pulses R09.89 and Precordial pain R07.2 [place] [id number] [place] [address] Oct, [place] [id number] [place] [address] Oct, Mood disorder F39 [place] [address] [address] Oct, Mood disorder F39 ; Posttraumatic stress disorder F43.10 and BMI 45.0-49.9, adult Z68.42 [place] [id number] [place] [address] Sep, Primary osteoarthritis of both knees M17.0 and Chronic pain syndrome G89.4 [place] [id number] [place] [address] Sep, Mood disorder F39 and Posttraumatic stress disorder F43.10 [place] [address] [id number] [place] [address] Aug, Primary osteoarthritis of both knees M17.0 and Chronic pain syndrome G89.4 [facility] [id number] [place] [address] July, Primary osteoarthritis of both knees M17.0 and Chronic pain syndrome G89.4 [facility] [address] [address] July, Type 2 diabetes mellitus with diabetic polyneuropathy E11.42 ; Essential hypertension I10 ; Pure hypercholesterolemia E78.0 ; Chronic prescription opiate use Z79.891 ; Tobacco abuse Z72.0 ; Primary osteoarthritis of both knees M17.0 ; Primary insomnia F51.01 and BMI 45.0-49.9, adult Z68.42 [place] [id number] [place] [address] July, Medicare annual wellness visit, initial Z00.00 [...] specified K21.9 and Encounter for immunization Z23 [facility] [id number] [place] [address] July, Primary osteoarthritis of both knees M17.0 and Chronic pain syndrome G89.4 [facility] [id number] [place] [address] Jun, Infection of right ear H66.91 ; Wheezing on auscultation R06.2 and BMI 45.0-49.9, adult Z68.42 [facility] [id number] [place] [address] Jun, [place] [address] [place] [address] Jun, Primary osteoarthritis of both knees M17.0 and Chronic pain syndrome G89.4 [facility] [id number] [place] [address] May, [facility] [id number] [place] [address] May, BMI 45.0-49.9, adult Z68.42 ; Mood disorder F39 and Posttraumatic stress disorder F43.10 [facility] [id number] [place] [address] May, [facility] [id number] [place] [address] May, Primary osteoarthritis of both knees M17.0 and Chronic pain syndrome G89.4 [facility] [id number] [place] [address] May, Mood disorder F39 [facility] [id number] [place] [address] Apr, Type 2 diabetes mellitus with diabetic polyneuropathy E11.42 [facility] [id number] [place] [address] Apr, [facility] [id number] [place] [address] Apr, Primary osteoarthritis of both knees M17.0 and Chronic pain syndrome G89.4 [facility] [id number] [place] [address] Apr, Mood disorder F39 [facility] [id number] [place] [address] Mar, Mood disorder F39 and Posttraumatic stress disorder F43.10 [facility] [address] [place] [address] Mar, Primary osteoarthritis of both knees M17.0 and Chronic pain syndrome G89.4 [facility] [id number] [place] [address] 08 Feb, 2017 Primary osteoarthritis of both knees M17.0 and Chronic pain syndrome G89.4 [facility] [id number] [place] [address] Feb, Mood disorder F39 [facility] [id number] [place] [address] Jan, Type 2 diabetes mellitus with diabetic polyneuropathy E11.42 ; Primary osteoarthritis of both knees M17.0 ; Mood disorder F39 ; Obesity, morbid, BMI 40.0-49.9 E66.01 ; Chronic prescription opiate use Z79.891 ; Acute suppurative otitis media of both ears without spontaneous rupture of tympanic membranes, recurrence not specified H66.003 and BMI 45.0-49.9, adult Z68.42 [facility] [address] [address] Jan, Primary osteoarthritis of both knees M17.0 and Chronic pain syndrome G89.4 [facility] [id number] [place] [address] Dec, Mood disorder F39 and Posttraumatic stress disorder F43.10 [facility] [id number] [place] [address] Dec, Primary osteoarthritis of both knees M17.0 and Chronic pain syndrome G89.4 [facility] [id number] [place] [address] 18 Nov, 2016 Chronic pain syndrome G89.4 [facility] [id number] [place] [address] 15 Nov, 2016 Primary osteoarthritis of both knees M17.0 and Chronic pain syndrome G89.4 [facility] [id number] [place] [address] 13 Nov, 2016 Type 2 diabetes mellitus with diabetic polyneuropathy E11.42 and Chronic pain syndrome G89.4 [facility] [id number] [place] [address] Nov, Posttraumatic stress disorder F43.10 and Mood disorder F39 [facility] [id number] [place] [address] Oct, Chronic pain syndrome G89.4 [facility] [id number] [place] [address] Oct, Type 2 diabetes mellitus with diabetic polyneuropathy E11.42 ; BMI 45.0-49.9, adult Z68.42 ; Primary osteoarthritis of both knees M17.0 and Skin lesion L98.9 [facility] [id number] [place] [address] Oct, Chronic pain syndrome G89.4 [facility] [id number] [place] [address] Sep, Chronic pain syndrome G89.4 [facility] [id number] [place] [address] Sep, [facility] [id number] [place] [address] Sep, Chronic pain syndrome G89.4 [facility] [id number] [place] [address] Aug, Chronic pain syndrome G89.4 [facility] [id number] [place] [address] Aug, [facility] [id number] [place] [address] Aug, Macrocytosis D75.89 and Pure hypercholesterolemia E78.0 [facility] [id number] [place] [address] Aug, Pure hypercholesterolemia E78.0 [facility] [id number] [place] [address] Aug, Macrocytosis D75.89 [facility] [address], [place] [address] Aug, Pure hypercholesterolemia E78.0 ; Type 2 diabetes mellitus with diabetic polyneuropathy E11.42 ; MITCHELL treated with BiPAP G47.33 and Chronic pain syndrome G89.4 [facility] [id number] [address] Aug, [facility] [id number] [place] [address] Aug, Hemorrhoids, unspecified hemorrhoid type K64.9 [facility] [id number] [place] [address] Aug, Chronic pain syndrome G89.4 ; Type 2 diabetes mellitus with diabetic polyneuropathy E11.42 ; Hemorrhoids, unspecified hemorrhoid type K64.9 ; Tobacco abuse Z72.0 and Primary osteoarthritis of both knees M17.0 [facility] [id number] [place] [address] July, Chronic pain syndrome G89.4 [facility] [id number] [place] [address] July, [facility] [id number] [place] [address] Jun, Chronic pain syndrome G89.4 [facility] [address], [place] [address] Jun, Chronic pain syndrome G89.4 [facility] [id number] [place] [address] Jun, Severe major depression with psychotic features F32.3 and Posttraumatic stress disorder F43.10 [facility] [id number] [place] [address] Jun, Chronic pain syndrome G89.4 [facility] [address], [place] [address] Jun, [facility] [id number] [place] [address] May, Chronic pain syndrome G89.4 [facility] [id number] [place] [address] May, Tobacco abuse Z72.0 [facility] [id number] [place] [address] May, [facility] [id number] [place] [address] Apr, Chronic pain syndrome G89.4 [facility] [id number] [place] [address] Apr, [facility] [id number] [place] [address] Apr, Right foot pain M79.671 [facility] [id number] [place] [address] Mar, Type 2 diabetes mellitus with diabetic polyneuropathy E11.42 ; MITCHELL treated with BiPAP G47.33 ; Pure hypercholesterolemia E78.0 ; Chronic pain syndrome G89.4 ; Tobacco abuse Z72.0 and Obesity, morbid, BMI 40.0-49.9 E66.01 [facility] [id number] [place] [address] Mar, [facility] [id number] [place] [address] Mar, [facility] [id number] [place] [address] Mar, [facility] [id number] [place] [address] Mar, [facility] [id number] [place] [address] Mar, [facility] [id number] [place] [address] Mar, Severe major depression with psychotic features F32.3 and Posttraumatic stress disorder F43.10 [facility] [address], [place] [address] Mar, [facility] [address], [place] [address] Feb, [facility] [address], [place] [address] Feb, [facility] [address], [place] [address] Jan, [facility] [id number] [place] [address] Jan, [facility] [id number] [place] [address] Dec, Posttraumatic stress disorder F43.10 and Severe major depression with psychotic features F32.3 [facility] [address], [place] [address] Dec, Type 2 diabetes mellitus with diabetic polyneuropathy E11.42 ; Chronic pain syndrome G89.4 and Acute right-sided low back pain with right-sided sciatica M54.41 [facility] [address], [place] [address] Dec, [facility] [address], [place] [address] Dec, [facility] [address], [place] [address] Nov, [facility] [address], [place] [address] Nov, [facility] [address], [place] [address] Nov, [facility] [address], [place] [address] Oct, [facility] [id number] [place] [address] Oct, [facility] [id number] [place] [address] Sep, Dental examination Z01.20 [facility] [id number] [place] [address] Sep, [facility] [address] [address] Sep, Type 2 diabetes mellitus with diabetic polyneuropathy E11.42 ; Chronic pain syndrome G89.4 ; Chronic prescription opiate use Z79.891 ; Injury of right index finger, sequela S69.91XS and Anejaculation N50.8 [facility] [id number] [place] [address] Aug, [place] [address] [address] Aug, [facility] [id number] [place] [address] Aug, Cellulitis of finger of right hand L03.011 [facility] [id number] [place] [address] July, [facility] [id number] [place] [address] July, [facility] [id number] [place] [address] Jun, Onychomycosis B35.1 [facility] [id number] [place] [address] Jun, Severe major depression with psychotic features F32.3 and Posttraumatic stress disorder F43.10 [facility] [id number] [place] [address] Jun, [facility] [id number] [place] [address] Jun, [facility] [id number] [place] [address] Jun, [facility] [id number] [place] [address] May, Type 2 diabetes mellitus with diabetic polyneuropathy E11.42 [facility] [id number] [place] [address] May, Type 2 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 and Urinary hesitancy R39.11 [facility] [id number] [place] [address] May, Type 2 diabetes mellitus with diabetic polyneuropathy E11.42 ; Left hip pain M25.552 and Benign prostatic hyperplasia with lower urinary tract symptoms, unspecified morphology N40.1 [place] [id number] [place] [address] May, [facility] [id number] [place] [address] Apr, Severe major depression with psychotic features F32.3 and Posttraumatic stress disorder F43.10 [place] [id number] [place] [address] Apr, [facility] [id number] [place] [address] Mar, [facility] [id number] [place] [address] Mar, Dysuria R30.0 and Urinary hesitancy R39.11 [facility] [id number] [place] [address] Mar, Onychomycosis B35.1 [facility] [id number] [place] [address] Mar, [facility] [id number] [place] [address] Feb, [facility] [address], [place] [address] Jan, [facility] [id number] [place] [address] Jan, Posttraumatic stress disorder F43.10 and Severe major depression with psychotic features F32.3 [facility] [id number] [place] [address] Jan, [facility] [id number] [place] [address] Jan, Chronic pain syndrome G89.4 ; Type 2 diabetes mellitus with diabetic polyneuropathy E11.42 ; Decreased pedal pulses R09.89 and Paresthesia of both hands R20.2 [facility] [id number] [place] [address] Dec, Posttraumatic stress disorder F43.10 and Severe major depression with psychotic features F32.3 [facility] [id number] [place] [address] Dec, [facility] [id number] [place] [address] Dec, [facility] [id number] [place] [address] Dec, Onychomycosis B35.1 [facility] [id number] [place] [address] Dec, [facility] [id number] [place] [address] Dec, [facility] [id number] [place] [address] Nov, [facility] [id number] [place] [address] Oct, Depression, major, recurrent, moderate 296.32 and Posttraumatic stress disorder 309.81 [facility] [id number] [place] [address] Oct, [facility] [id number] [place] [address] Oct, [facility] [id number] [place] [address] Oct, [facility] [id number] [place] [address] Sep, Posttraumatic stress disorder 309.81 and Depression, major, recurrent, moderate 296.32 [facility] [id number] [place] [address] Sep, [place] [address] [address] Sep, Chronic airway obstruction, not elsewhere classified [address] [place] [address] [address] Sep, Onychomycosis 110.1 and DM neuro manif type II 250.60 [facility] [id number] [place] [address] Sep, Chronic pain 338.29 ; Chronic airway obstruction, not elsewhere classified 496 ; Osteoarthritis of knees, bilateral 715.96 and On potassium wasting diuretic therapy V58.69 [place] [id number] [place] [address] Sep, Insect bites 919.4 ; Sinusitis 473.9 and GERD (gastroesophageal reflux disease) 530.81 [facility] [id number] [place] [address] Aug, Depression, major, recurrent, moderate 296.32 and Posttraumatic stress disorder 309.81 [facility] [id number] [place] [address] Aug, [facility] [id number] [place] [address] Aug, [facility] [address] [place] [address] Aug, [facility] [address] [facility] [id number] [address] July, Major depressive disorder, recurrent episode, moderate 296.32 and Posttraumatic stress disorder 309.81 [facility] [address] [facility] [id number], [place] [address] July, [facility] [address] [facility] [id number] [address] July, [facility] [address] [facility] [id number] [address] July, [facility] [id number] [place] [id number] July, [facility] [id number], [place] [address] Jun, [facility] [address] [id number], [place] [address] Jun, [facility] [place] [facility] [address] [id number], [place] [address] May, [facility] [place] [facility] [address] [id number], [place] [address] May, [facility] [place] [facility] [address] [id number], [place] [address] May, [facility] [place] [facility] [address] [id number], [place] [address] May, [facility] [place] [facility] [address] [facility] [id number], [place] [address] May, [facility] [place] [facility] [address] [facility] [id number], [place] [address] May, [facility] [place] [facility] [address] [id number], [place] [address] May, [facility] [place] [facility] [address] [id number], [place] [address] May, [facility] [place] [facility] [address] [id number] [place] [address] May, [facility] [place] [facility] [address] [id number] [place] [address] Apr, 2014 [facility] [place] [facility] [address] [facility] [id number] [place] [address] Apr, 2014 [facility] [place] [facility] [address] [id number] [place] [address] Apr, 2014 [facility] [place] [facility] [address] [id number] [place] [address] Apr, 2014 [facility] [place] [facility] [address] [facility] [id number] [place] [address] Apr, 2014 [facility] [place] [facility] [address] [id number] [place] [address] Apr, 2014 [facility] [place] [facility] [address] [facility] [id number] [place] [address] Apr, [facility] [place] [facility] [address] [id number] [address] Apr, [facility] [place] [facility] [address] [facility] [id number] [place] [address] Apr, [facility] [place] [facility] [address] [facility] [id number] [place] [address] Mar, [facility] [place] [facility] [address] [id number], [place] [address] Mar, [facility] [place] [facility] [address] [id number] [place] [address] Mar, [facility] [place] [facility] [address] [facility] [id number] [place] [address] Mar, [facility] [place] [facility] [address] [facility] [id number] [place] [address] Mar, [facility] [place] [facility] [address] [id number] [place] [address] 15 Mar, 2014 [facility] [place] [facility] [address] [id number] [place] [address] 15 Mar, 2014 [facility] [place] [facility] [address] [id number] [place] [address] 15 Mar, 2014 [facility] [place] [facility] [address] [id number] [place] [address] 15 Mar, 2014 [facility] [place] [facility] [address] [id number] [place] [address] 15 Mar, 2014 [facility] [place] [facility] [address] [id number] [place] [address] 14 Mar, 2014 [facility] [place] [facility] [address] [id number] [place] [address] 14 Mar, 2014 [facility] [place] [facility] [address] [id number] [place] [address] 14 Mar, 2014 [facility] [place] [facility] [address] [id number] [place] [address] 14 Mar, 2014 [facility] [place] [facility] [address] [id number] [place] [address] 14 Mar, 2014 [facility] [place] [facility] [address] [id number] [place] [address] 14 Mar, 2014 [facility] [place] [facility] [address] [id number] [place] [address] 09 Mar, 2014 [facility] [place] [facility] [address] [id number] [place] [address] 09 Mar, 2014 [facility] [place] [facility] [address] [id number] [place] [address] 16 Feb, 2014 [facility] [place] [facility] [address] [id number] [place] [address] 16 Feb, 2014 [facility] [place] [facility] [address] [id number], [place] [address] 15 Feb, 2014 [facility] [place] [facility] [address] [id number] [place] [address] 15 Feb, 2014 [facility] [place] [facility] [address] [id number] [place] [address] 15 Feb, 2014 [facility] [place] [facility] [address] [id number] [place] [address] Feb, [facility] [place] [facility] [address] [id number] [place] [address] Jan, [facility] [place] [facility] [address] [id number] [place] [address] Jan, [facility] [place] [facility] [address] [id number] [place] [address] Jan, [facility] [place] [facility] [address] [id number], [place] [address] Jan, [facility] [place] [facility] [address] [id number], [place] [address] Jan, [facility] [place] [facility] [address] [id number] [place] [address] Jan, [facility] [place] [facility] [address] [id number] [place] [address] Jan, [facility] [place] [facility] [address] [id number] [place] [address] Jan, [facility] [place] [facility] [address] [id number], [place] [address] Jan, [facility] [place] [facility] [address] [id number], [place] [address] Jan, [facility] [place] [facility] [address] [id number], [place] [address] Dec, [facility] [place] [facility] [address] [id number], [place] [address] Dec, [facility] [place] [facility] [address] [id number] [place] [address] Dec, [facility] [place] [facility] [address] [id number] [place] [address] Dec, [facility] [place] [facility] [address] [id number] [place] [address] Nov, 2013 [facility] [place] [facility] [address] [id number] [place] [address] Nov, 2013 [facility] [place] [facility] [address] [id number] [place] [address] Nov, [facility] [place] [facility] [address] [id number] [place] [address] Nov, [facility] [place] [facility] [address] [id number] [place] [address] Nov, [facility] [place] [facility] [address] [id number] [place] [address] Nov, [facility] [place] [facility] [address] [id number] [place] [address] Oct, [facility] [place] [facility] [address] [id number] [place] [address] Oct, [facility] [place] [facility] [address] [id number] [place] [address] Oct, [facility] [place] [facility] [address] [id number] [place] [address] Oct, [facility] [place] [facility] [address] [id number] [place] [address] Sep, [facility] [place] [facility] [address] [id number] [place] [address] Sep, [facility] [place] [facility] [address] [id number] [place] [address] Sep, [facility] [place] [facility] [address] [id number] [place] [address] Sep, [facility] [place] [facility] [address] [id number] [place] [address] Sep, [facility] [place] [facility] [address] [id number] [place] [address] Sep, [facility] [place] [facility] [address] [id number] [place] [address] July, [facility] [place] [facility] [address] [id number] [place] [address] July, [facility] [place] [facility] [address] [id number] [place] [address] July, [facility] [place] [facility] [address] [id number] [place] [address] July, [facility] [place] [facility] [address] [id number] [place] [address] Jun, [facility] [place] [facility] [address] [id number] [place] [address] Jun, [facility] [place] [facility] [address] [id number] [place] [address] Jun, [facility] [place] [facility] [address] [id number] [place] [address] Jun, [facility] [place] [facility] [address] [id number] [place] [address] Jun, [facility] [place] [facility] [address] [id number], [place] [address] Jun, [facility] [place] [facility] [address] [id number] [place] [address] May, [facility] [place] [facility] [address] [id number] [place] [address] May, [facility] [place] [facility] [address] [id number] [place] [address] Apr, [facility] [place] [facility] [address] [id number] [place] [address] Apr, [facility] [place] [facility] [address] [id number] [place] [address] Apr, [facility] [place] [facility] [address] [id number] [place] [address] Apr, [facility] [place] [facility] [address] [id number] [place] [address] Apr, [facility] [place] [facility] [address] [id number] [place] [address] Apr, [facility] [place] [facility] [address] [id number] [place] [address] Apr, [facility] [place] [facility] [address] [id number] [place] [address] Mar, [facility] [place] [facility] [address] [id number] [place] [address] Mar, [facility] [place] [facility] [address] [id number] [place] [address] Mar, [facility] [place] [facility] [address] [id number] [place] [address] Mar, [facility] [place] [facility] [address] [id number] [place] [address] Mar, [facility] [place] [facility] [address] [id number] [place] [address] Mar, [facility] [place] [facility] [address] [id number] [place] [address] Mar, [facility] [place] [facility] [address] [id number] [place] [address] Mar, [facility] [place] [facility] [address] [id number] [place] [address] Feb, [facility] [place] [facility] [address] [id number] [place] [address] Feb, [facility] [place] [facility] [address] [id number] [place] [address] Feb, [facility] [place] [facility] [address] [id number], [place] [address] Feb, [facility] [place] [facility] [address] [facility] [id number] [place] [address] Feb, [facility] [place] [facility] [address] [id number], [place] [address] Feb, [facility] [place] [facility] [address] [id number] [place] [address] Feb, [facility] [place] [facility] [address] [id number], [place] [address] Jan, [facility] [place] [facility] [address] [id number], [place] [address] Jan, [facility] [place] [facility] [address] [id number], [place] [address] Jan, [facility] [place] [facility] [address] [id number], [place] [address] Jan, [facility] [place] [facility] [address] [facility] [id number], [place] [address] Jan, [facility] [place] [facility] [address] [id number], [place] [address] Jan, [facility] [place] [facility] [address] [id number] [id number] Jan, [facility] [place] [facility] [address] [id number] [address] Jan, [facility] [place] [facility] [address] [id number], [place] [address] Dec, [facility] [place] [facility] [address] [id number], [place] [address] Dec, [facility] [place] [facility] [address] [id number], [place] [address] Dec, [facility] [place] [facility] [address] [id number] [place] [address] Dec, [facility] [place] [facility] [address] [id number] [place] [address] 31 Dec, 2012 [facility] [place] [facility] [address] [id number] [place] [address] Dec, [facility] [place] [facility] [address] [id number] [place] [address] Dec, [facility] [place] [facility] [address] [id number] [place] [address] 16 Dec, 2012 [facility] [place] [facility] [address] [id number] [place] [address] 16 Dec, 2012 [facility] [place] [facility] [address] [id number], [place] [address] 04 Dec, 2012 [facility] [place] [facility] [address] [id number] [id number] 27 Nov, 2012 [facility] [place] [facility] [address] [id number][place] [id number] 27 Nov, 2012 [facility] [place] [facility] [address] [id number], [place] [address] 24 Nov, 2012 [facility] [place] [facility] [address] [id number], [place] [address] 20 Nov, 2012 [facility] [place] [facility] [address] [id number], [place] [address] 19 Sep, 2012 [facility] [place] [facility] [address] [id number], [place] [address] 13 Sep, 2012 [facility] [place] [facility] [address] [id number], [place] [address] 10 Sep, 2012 [facility] [place] [facility] [address] [id number] [place] [address] 06 Sep, 2012 [facility] [place] [facility] [address] [id number] [place] [address] Oct, [facility] [address] [id number] [place] [address] Oct, [facility] [address] [id number] [place] [address] Oct, [facility] [address] [id number] [place] [address] Sep, [facility] [address] [id number] [place] [address] Sep, [facility] [address] [id number] [place] [address] Sep, [facility] [address] [id number] [place] [address] Sep, [facility] [address] [id number] [place] [address] Sep, [facility] [address] [id number] [place] [address] Aug, [facility] [address] [id number] [place] [address] Aug, [facility] [address] [id number] [place] [address] Aug, [facility] [address] [id number] [place] [address] Aug, [facility] [address] [id number] [place] [address] Aug, [facility] [place] [facility] [address] [id number] [place] [address] Aug, [facility] [place] [facility] [address] [id number] [place] [address] July, [facility] [address] [id number] [place] [address] July, [facility] [address] [id number] [place] [address] July, [facility] [address] [id number] [place] [address] July, [facility] [address] [id number] [place] [address] July, [facility] [address] [id number] [place] [address] July, [facility] [address] [id number] [place] [address] Jun, [facility] [address] [id number] [place] [address] Jun, [facility] [address] [id number] [place] [address] Jun, [facility] [address] [id number] [place] [address] Jun, [facility] [address] [id number] [place] [address] May, [facility] [address] [id number] [place] [address] May, [facility] [address] [id number] [place] [address] May, [facility] [address] [id number] [place] [address] Apr, [facility] [address] [id number] [place] [address] Mar, [facility] [address] [id number] [place] [address] Mar, [facility] [place] [facility] [address] [id number] [place] [address] Mar, [facility] [place] [facility] [address] [id number], [place] [address] 16 Mar, 2012 [facility] [address] [id number] [place] [address] 15 Mar, 2012 [facility] [place] [facility] [address] [id number] [place] [address] Feb, [facility] [place] [facility] [address] [id number] [place] [address] Feb, [facility] [place] [facility] [address] [id number] [place] [address] 17 Feb, 2012 [facility] [place] [facility] [address] [id number] [place] [address], [place] [address] Feb, [facility] [place] [facility] [address] [id number] [place] [address] Jan, [facility] [place] [facility] [address] [id number] [place] [address] Jan, [facility] [place] [facility] [address] [id number] [place] [address] Jan, [facility] [place] [facility] [address] [id number] [place] [address] Jan, [facility] [place] [facility] [address] [facility] [id number] [place] [address] Dec, [facility] [place] [facility] [address] [id number] [place] [address] Dec, [facility] [place] [facility] [address] [id number], [place] [address] Nov, [facility] [place] [facility] [address] [id number] [place] [address] Oct, [facility] [place] [facility] [address] [id number] [place] [address] Oct, [facility] [place] [facility] [address] [id number], [place] [address] Oct, [facility] [place] [facility] [address] [id number] [place] [address] Oct, [facility] [address] [id number] [place] [address] Oct, [facility] [address] [id number] [place] [address] Sep, [facility] [address] [id number] [place] [address] Sep, [facility] [address] [id number] [place] [address] Aug, [facility] [address] [place] [id number] Aug, [facility] [address] [id number] [place] [address] Aug, [facility] [address] [id number] [place] [address] July, [facility] [address] [id number] [place] [address] July, [facility] [address] [id number] [place] [address] Jun, [facility] [address] [id number] [place] [address] Jun, [facility] [address] [id number] [place] [address] 16 Jun, 2011 [facility] [address] [id number] [place] [address] 13 Jun, 2011 [facility] [address] [id number] [place] [address] 15 Apr, 2011 [facility] [address] [id number] [place] [address] 15 Apr, 2011 [facility] [address] [id number] [place] [address] Apr, [facility] [place] [facility] [address] [id number] [place] [address] Mar, [facility] [place] [facility] [address] [id number] [place] [address] Mar, [facility] [place] [facility] [address] [id number] [place] [address] Mar, [facility] [place] [facility] [address] [id number] [place] [address] Mar, [facility] [place] [facility] [address] [id number] [place] [address] Mar, [facility] [place] [facility] [address] [id number] [place] [address] Jan, [facility] [place] [facility] [address] [id number] [place] [address] Jan, [facility] [place] [facility] [address] [id number] [place] [address] Jan, [facility] [place] [facility] [address] [id number] [place] [address] Mar, [facility] [place] [facility] [address] [id number], [place] [address] Mar, [facility] [place] [facility] [address] [id number], [place] [address] Feb, [facility] [place] [facility] [address] [id number], [place] [address] 16 Feb, 2010 [facility] [place] [facility] [address] [id number] [place] [address] Feb, [facility] [place] [facility] [address] [id number], [place] [address] Jan, [facility] [place] [facility] [address] [id number], [place] [address] 17 Jan, 2010 [facility] [place] [facility] [address] [id number], [place] [address] Dec, [facility] [address] [id number] [address] Dec, [facility] [id number] [place] [address] May, [facility] [id number], [place] [address] Apr, [facility] [id number], [place] [address] Feb, [facility] [id number] [place] [address] Feb, [facility] [id number], [place] [address] Jan, [facility] [id number] [place] [address] Jan, [facility] [id number], [place] [address] Jan, [facility] [id number] [place] [address] Jan, [facility] [address] [id number] [address] Jan, IMMUNIZATIONS No Known Immunizations SOCIAL HISTORY Never Assessed REASON FOR VISIT Controlled refills PLAN OF CARE VITAL SIGNS MEDICATIONS Unknown [...] 05/17/17 Hospitalization History ED then admitted to [facility]-cardiac stepdown-chest pain 02/2010 Hospitalization History Possible DVT-sono negative 06/2010 Hospitalization History cellulitis to bilat legs
--- OUTSIDE RECORDS SUMMARY | 2018-10-04 06:34 | XMS REPORT ---
Author Author DELILAH [facility] Address [address] [place] [address] Care Team Providers Care Purchasing And Claims Supervisor Name Role Phone AGUILARPAWAN ADHIKARIA Unavailable PROBLEMS Type Condition ICD9-CM Code LHA03-PU Code Onset Dates Condition Status SNOMED Code Problem Primary osteoarthritis of both knees M17.0 Active 882879445 Problem Nocturnal hypoxia G47.34 Active 477212826 Problem Pure hypercholesterolemia E78.0 Active 466430530 Problem Acute right-sided low back pain with right-sided sciatica M54.41 Active 29746445 Problem Type 2 diabetes mellitus with diabetic polyneuropathy E11.42 Active 181552422 Problem Posttraumatic stress disorder F43.10 Active 33283403 Problem Chronic systolic (congestive) heart failure I50.22 Active 861149293 Problem Severe major depression with psychotic features F32.3 Active 38387616 Problem Obesity, morbid, BMI 40.0-49.9 E66.01 Active 432441448 Problem Tobacco abuse Z72.0 Active 016743215 Problem Chronic systolic congestive heart failure I50.22 Active 830142511 Problem Primary insomnia F51.01 Active 2318905 Problem Essential hypertension I10 Active 29600719 Problem History of DVT (deep vein thrombosis) Z86.718 Active 985334927 Problem Chronic pain syndrome G89.4 Active 898492452 Problem BMI 45.0-49.9, adult Z68.42 Active 028529461 Problem Macrocytosis D75.89 Active 695456567 Problem Mood disorder F39 Active 23726545 Problem Mild episode of recurrent major depressive disorder F33.0 Active 067758435 Problem Non-ischemic cardiomyopathy I42.9 Active 75572841 Problem Chronic obstructive pulmonary disease, unspecified COPD type J44.9 Active 81612883 Problem Major depressive disorder, recurrent episode, unspecified severity F33.9 Active 54518138 Problem Gastroesophageal reflux disease, esophagitis presence not specified K21.9 Active 322547053 Problem MITCHELL treated with BiPAP G47.33 Active 35198322 Problem Chronic prescription opiate use Z79.891 Active 301912423 Problem PTSD (post-traumatic stress disorder) F43.10 Active 57959285 Problem History of weight loss surgery Z98.84 Active 439320113 ALLERGIES No Information ENCOUNTERS Encounter Location Date Diagnosis [place] [id number] [place] [address] Nov, Chest discomfort R07.89 ; Shortness of breath R06.02 ; Chronic systolic congestive heart failure I50.22 and Type 2 diabetes mellitus with diabetic polyneuropathy E11.42 [place] [id number] [place] [address] Nov, Chronic pain syndrome G89.4 [place] [id number] [place] [address] Oct, BMI 45.0-49.9, adult Z68.42 ; Type 2 diabetes mellitus with diabetic polyneuropathy E11.42 ; Chronic pain syndrome G89.4 ; Gastroesophageal reflux disease, esophagitis presence not specified K21.9 ; Decreased pedal pulses R09.89 and Precordial pain R07.2 [place] [id number] [place] [address] Oct, [place] [id number] [place] [address] Oct, Mood disorder F39 [place] [address] [address] Oct, Mood disorder F39 ; Posttraumatic stress disorder F43.10 and BMI 45.0-49.9, adult Z68.42 [place] [id number] [place] [address] Sep, Primary osteoarthritis of both knees M17.0 and Chronic pain syndrome G89.4 [place] [id number] [place] [address] Sep, Mood disorder F39 and Posttraumatic stress disorder F43.10 [place] [address] [id number] [place] [address] Aug, Primary osteoarthritis of both knees M17.0 and Chronic pain syndrome G89.4 [facility] [id number] [place] [address] July, Primary osteoarthritis of both knees M17.0 and Chronic pain syndrome G89.4 [facility] [address] [address] July, Type 2 diabetes mellitus with diabetic polyneuropathy E11.42 ; Essential hypertension I10 ; Pure hypercholesterolemia E78.0 ; Chronic prescription opiate use Z79.891 ; Tobacco abuse Z72.0 ; Primary osteoarthritis of both knees M17.0 ; Primary insomnia F51.01 and BMI 45.0-49.9, adult Z68.42 [place] [id number] [place] [address] July, Medicare annual wellness visit, initial Z00.00 [...] specified K21.9 and Encounter for immunization Z23 [facility] [id number] [place] [address] July, Primary osteoarthritis of both knees M17.0 and Chronic pain syndrome G89.4 [facility] [id number] [place] [address] Jun, Infection of right ear H66.91 ; Wheezing on auscultation R06.2 and BMI 45.0-49.9, adult Z68.42 [facility] [id number] [place] [address] Jun, [place] [address] [place] [address] Jun, Primary osteoarthritis of both knees M17.0 and Chronic pain syndrome G89.4 [facility] [id number] [place] [address] May, [facility] [id number] [place] [address] May, BMI 45.0-49.9, adult Z68.42 ; Mood disorder F39 and Posttraumatic stress disorder F43.10 [facility] [id number] [place] [address] May, [facility] [id number] [place] [address] May, Primary osteoarthritis of both knees M17.0 and Chronic pain syndrome G89.4 [facility] [id number] [place] [address] May, Mood disorder F39 [facility] [id number] [place] [address] Apr, Type 2 diabetes mellitus with diabetic polyneuropathy E11.42 [facility] [id number] [place] [address] Apr, [facility] [id number] [place] [address] Apr, Primary osteoarthritis of both knees M17.0 and Chronic pain syndrome G89.4 [facility] [address] [place] [address] Apr, Mood disorder F39 [facility] [id number] [place] [address] Mar, Mood disorder F39 and Posttraumatic stress disorder F43.10 [facility] [address] [address] Mar, Primary osteoarthritis of both knees M17.0 and Chronic pain syndrome G89.4 [facility] [address] [place] [address] 08 Feb, 2017 Primary osteoarthritis of both knees M17.0 and Chronic pain syndrome G89.4 [facility] [id number] [place] [address] Feb, Mood disorder F39 [facility] [id number] [place] [address] Jan, Type 2 diabetes mellitus with diabetic polyneuropathy E11.42 ; Primary osteoarthritis of both knees M17.0 ; Mood disorder F39 ; Obesity, morbid, BMI 40.0-49.9 E66.01 ; Chronic prescription opiate use Z79.891 ; Acute suppurative otitis media of both ears without spontaneous rupture of tympanic membranes, recurrence not specified H66.003 and BMI 45.0-49.9, adult Z68.42 [facility] [address] [address] Jan, Primary osteoarthritis of both knees M17.0 and Chronic pain syndrome G89.4 [facility] [id number] [place] [address] Dec, Mood disorder F39 and Posttraumatic stress disorder F43.10 [facility] [id number] [place] [address] Dec, Primary osteoarthritis of both knees M17.0 and Chronic pain syndrome G89.4 [facility] [id number] [place] [address] 18 Nov, 2016 Chronic pain syndrome G89.4 [facility] [id number] [place] [address] 15 Nov, 2016 Primary osteoarthritis of both knees M17.0 and Chronic pain syndrome G89.4 [facility] [id number] [place] [address] 13 Nov, 2016 Type 2 diabetes mellitus with diabetic polyneuropathy E11.42 and Chronic pain syndrome G89.4 [facility] [id number] [place] [address] Nov, Posttraumatic stress disorder F43.10 and Mood disorder F39 [facility] [id number] [place] [address] Oct, Chronic pain syndrome G89.4 [facility] [id number] [place] [address] Oct, Type 2 diabetes mellitus with diabetic polyneuropathy E11.42 ; BMI 45.0-49.9, adult Z68.42 ; Primary osteoarthritis of both knees M17.0 and Skin lesion L98.9 [facility] [id number] [place] [address] Oct, Chronic pain syndrome G89.4 [facility] [id number] [place] [address] Sep, Chronic pain syndrome G89.4 [facility] [id number] [place] [address] Sep, [facility] [id number] [place] [address] Sep, Chronic pain syndrome G89.4 [facility] [id number] [place] [address] Aug, Chronic pain syndrome G89.4 [facility] [address] [place] [address] Aug, [facility] [id number] [place] [address] Aug, Macrocytosis D75.89 and Pure hypercholesterolemia E78.0 [facility] [id number] [place] [address] Aug, Pure hypercholesterolemia E78.0 [facility] [address] [place] [address] Aug, Macrocytosis D75.89 [facility] [address] [address] Aug, Pure hypercholesterolemia E78.0 ; Type 2 diabetes mellitus with diabetic polyneuropathy E11.42 ; MITCHELL treated with BiPAP G47.33 and Chronic pain syndrome G89.4 [facility] [address] [address] Aug, [facility] [id number] [place] [address] Aug, Hemorrhoids, unspecified hemorrhoid type K64.9 [facility] [id number] [place] [address] Aug, Chronic pain syndrome G89.4 ; Type 2 diabetes mellitus with diabetic polyneuropathy E11.42 ; Hemorrhoids, unspecified hemorrhoid type K64.9 ; Tobacco abuse Z72.0 and Primary osteoarthritis of both knees M17.0 [facility] [id number] [place] [address] July, Chronic pain syndrome G89.4 [facility] [id number] [place] [address] July, [facility] [id number] [place] [address] Jun, Chronic pain syndrome G89.4 [facility] [address] [address] Jun, Chronic pain syndrome G89.4 [facility] [id number] [place] [address] Jun, Severe major depression with psychotic features F32.3 and Posttraumatic stress disorder F43.10 [facility] [id number] [place] [address] Jun, Chronic pain syndrome G89.4 [facility] [address] [address] Jun, [facility] [id number] [place] [address] May, Chronic pain syndrome G89.4 [facility] [id number] [place] [address] May, Tobacco abuse Z72.0 [facility] [id number] [place] [address] May, [facility] [id number] [place] [address] Apr, Chronic pain syndrome G89.4 [facility] [id number] [place] [address] Apr, [facility] [id number] [place] [address] Apr, Right foot pain M79.671 [facility] [id number] [place] [address] Mar, Type 2 diabetes mellitus with diabetic polyneuropathy E11.42 ; MITCHELL treated with BiPAP G47.33 ; Pure hypercholesterolemia E78.0 ; Chronic pain syndrome G89.4 ; Tobacco abuse Z72.0 and Obesity, morbid, BMI 40.0-49.9 E66.01 [facility] [address] [place] [address] Mar, [facility] [address] [place] [address] Mar, [facility] [id number] [place] [address] Mar, [facility] [id number] [place] [address] Mar, [facility] [address] [place] [address] Mar, [facility] [id number] [place] [address] Mar, Severe major depression with psychotic features F32.3 and Posttraumatic stress disorder F43.10 [facility] [address] [address] Mar, [facility] [address] [address] Feb, [facility] [address] [address] Feb, [facility] [address] [address] Jan, [facility] [address] [place] [address] Jan, [facility] [address] [place] [address] Dec, Posttraumatic stress disorder F43.10 and Severe major depression with psychotic features F32.3 [facility] [address] [address] Dec, Type 2 diabetes mellitus with diabetic polyneuropathy E11.42 ; Chronic pain syndrome G89.4 and Acute right-sided low back pain with right-sided sciatica M54.41 [facility] [address], [place] [address] Dec, [facility] [address], [place] [address] Dec, [facility] [address], [place] [address] Nov, [facility] [address], [place] [address] Nov, [facility] [address] [address] Nov, [facility] [address] [address] Oct, [facility] [id number] [place] [address] Oct, [facility] [id number] [place] [address] Sep, Dental examination Z01.20 [facility] [id number] [place] [address] Sep, [facility] [address] [address] Sep, Type 2 diabetes mellitus with diabetic polyneuropathy E11.42 ; Chronic pain syndrome G89.4 ; Chronic prescription opiate use Z79.891 ; Injury of right index finger, sequela S69.91XS and Anejaculation N50.8 [facility] [id number] [place] [address] Aug, [place] [address] [address] Aug, [facility] [id number] [place] [address] Aug, Cellulitis of finger of right hand L03.011 [facility] [id number] [place] [address] July, [facility] [id number] [place] [address] July, [facility] [id number] [place] [address] Jun, Onychomycosis B35.1 [facility] [id number] [place] [address] Jun, Severe major depression with psychotic features F32.3 and Posttraumatic stress disorder F43.10 [facility] [id number] [place] [address] Jun, [facility] [id number] [place] [address] Jun, [facility] [id number] [place] [address] Jun, [facility] [id number] [place] [address] May, Type 2 diabetes mellitus with diabetic polyneuropathy E11.42 [facility] [id number] [place] [address] May, Type 2 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 and Urinary hesitancy R39.11 [facility] [address] [place] [address] May, Type 2 diabetes mellitus with diabetic polyneuropathy E11.42 ; Left hip pain M25.552 and Benign prostatic hyperplasia with lower urinary tract symptoms, unspecified morphology N40.1 [place] [id number] [place] [address] May, [facility] [id number] [place] [address] Apr, Severe major depression with psychotic features F32.3 and Posttraumatic stress disorder F43.10 [place] [id number] [place] [address] Apr, [facility] [id number] [place] [address] Mar, [facility] [id number] [place] [address] Mar, Dysuria R30.0 and Urinary hesitancy R39.11 [facility] [id number] [place] [address] Mar, Onychomycosis B35.1 [facility] [id number] [place] [address] Mar, [facility] [id number] [place] [address] Feb, [facility] [address], [place] [address] Jan, [facility] [id number] [place] [address] Jan, Posttraumatic stress disorder F43.10 and Severe major depression with psychotic features F32.3 [facility] [id number] [place] [address] Jan, [facility] [id number] [place] [address] Jan, Chronic pain syndrome G89.4 ; Type 2 diabetes mellitus with diabetic polyneuropathy E11.42 ; Decreased pedal pulses R09.89 and Paresthesia of both hands R20.2 [facility] [id number] [place] [address] Dec, Posttraumatic stress disorder F43.10 and Severe major depression with psychotic features F32.3 [facility] [id number] [place] [address] Dec, [facility] [id number] [place] [address] Dec, [facility] [id number] [place] [address] Dec, Onychomycosis B35.1 [facility] [id number] [place] [address] Dec, [facility] [id number] [place] [address] Dec, [facility] [id number] [place] [address] Nov, [facility] [id number] [place] [address] Oct, Depression, major, recurrent, moderate 296.32 and Posttraumatic stress disorder 309.81 [facility] [id number] [place] [address] Oct, [facility] [id number] [place] [address] Oct, [facility] [id number] [place] [address] Oct, [facility] [id number] [place] [address] Sep, Posttraumatic stress disorder 309.81 and Depression, major, recurrent, moderate 296.32 [facility] [id number] [place] [address] Sep, [place] [address] [address] Sep, Chronic airway obstruction, not elsewhere classified [address] [place] [address] [address] Sep, Onychomycosis 110.1 and DM neuro manif type II 250.60 [facility] [id number] [place] [address] Sep, Chronic pain 338.29 ; Chronic airway obstruction, not elsewhere classified 496 ; Osteoarthritis of knees, bilateral 715.96 and On potassium wasting diuretic therapy V58.69 [place] [id number] [place] [address] Sep, Insect bites 919.4 ; Sinusitis 473.9 and GERD (gastroesophageal reflux disease) 530.81 [facility] [id number] [place] [address] Aug, Depression, major, recurrent, moderate 296.32 and Posttraumatic stress disorder 309.81 [facility] [id number] [place] [address] Aug, [facility] [id number] [place] [address] Aug, [facility] [address] [place] [address] Aug, [facility] [address] [facility] [id number] [address] July, Major depressive disorder, recurrent episode, moderate 296.32 and Posttraumatic stress disorder 309.81 [facility] [address] [facility] [id number][place] [address] July, [facility] [address] [facility] [id number][place] [address] July, [facility] [address] [facility] [id number] [address] July, [facility] [id number] [place] [id number] July, [facility] [id number] [address] Jun, [facility] [address] [id number] [address] Jun, [facility] [address] [id number] [address] May, [facility] [id number] [address] May, [facility] [id number] [address] May, [facility] [id number] [address] May, [facility] [address] [facility] [id number], [place] [address] May, [facility] [address] [facility] [id number] [address] May, [facility] [address] [id number] [address] May, [facility] [place] [facility] [address] [id number], [place] [address] May, [facility] [place] [facility] [address] [id number] [place] [address] May, [facility] [place] [facility] [address] [id number] [place] [address] Apr, 2014 [facility] [place] [facility] [address] [facility] [id number] [place] [address] Apr, 2014 [facility] [place] [facility] [address] [id number] [place] [address] Apr, 2014 [facility] [place] [facility] [address] [id number] [place] [address] Apr, 2014 [facility] [place] [facility] [address] [facility] [id number] [place] [address] Apr, 2014 [facility] [place] [facility] [address] [id number] [place] [address] Apr, 2014 [facility] [place] [facility] [address] [facility] [id number] [place] [address] Apr, [facility] [place] [facility] [address] [id number] [place] [address] Apr, [facility] [place] [facility] [address] [facility] [id number] [place] [address] Apr, [facility] [place] [facility] [address] [facility] [id number] [place] [address] Mar, [facility] [place] [facility] [address] [id number], [place] [address] Mar, [facility] [place] [facility] [address] [id number] [place] [address] Mar, [facility] [place] [facility] [address] [facility] [id number] [place] [address] Mar, [facility] [place] [facility] [address] [facility] [id number] [place] [address] Mar, [facility] [place] [facility] [address] [id number] [place] [address] 15 Mar, 2014 [facility] [place] [facility] [address] [id number] [place] [address] 15 Mar, 2014 [facility] [place] [facility] [address] [id number] [place] [address] 15 Mar, 2014 [facility] [place] [facility] [address] [id number] [place] [address] 15 Mar, 2014 [facility] [place] [facility] [address] [id number] [place] [address] 15 Mar, 2014 [facility] [place] [facility] [address] [id number] [place] [address] 14 Mar, 2014 [facility] [place] [facility] [address] [id number] [place] [address] 14 Mar, 2014 [facility] [place] [facility] [address] [id number] [place] [address] 14 Mar, 2014 [facility] [place] [facility] [address] [id number] [place] [address] 14 Mar, 2014 [facility] [place] [facility] [address] [id number] [place] [address] 14 Mar, 2014 [facility] [place] [facility] [address] [id number] [place] [address] 14 Mar, 2014 [facility] [place] [facility] [address] [id number] [place] [address] 09 Mar, 2014 [facility] [place] [facility] [address] [id number] [place] [address] 09 Mar, 2014 [facility] [place] [facility] [address] [id number] [place] [address] 16 Feb, 2014 [facility] [place] [facility] [address] [id number] [place] [address] 16 Feb, 2014 [facility] [place] [facility] [address] [id number], [place] [address] 15 Feb, 2014 [facility] [place] [facility] [address] [id number] [place] [address] 15 Feb, 2014 [facility] [place] [facility] [address] [id number] [place] [address] 15 Feb, 2014 [facility] [place] [facility] [address] [id number] [place] [address] Feb, [facility] [place] [facility] [address] [id number] [place] [address] Jan, [facility] [place] [facility] [address] [id number] [place] [address] Jan, [facility] [place] [facility] [address] [id number] [place] [address] Jan, [facility] [place] [facility] [address] [id number], [place] [address] Jan, [facility] [place] [facility] [address] [id number], [place] [address] Jan, [facility] [place] [facility] [address] [id number] [place] [address] Jan, [facility] [place] [facility] [address] [id number] [place] [address] Jan, [facility] [place] [facility] [address] [id number] [place] [address] Jan, [facility] [place] [facility] [address] [id number], [place] [address] Jan, [facility] [place] [facility] [address] [id number], [place] [address] Jan, [facility] [place] [facility] [address] [id number], [place] [address] Dec, [facility] [place] [facility] [address] [id number], [place] [address] Dec, [facility] [place] [facility] [address] [id number] [place] [address] Dec, [facility] [place] [facility] [address] [id number] [place] [address] Dec, [facility] [place] [facility] [address] [id number] [place] [address] Nov, 2013 [facility] [place] [facility] [address] [id number] [place] [address] Nov, 2013 [facility] [place] [facility] [address] [id number] [place] [address] Nov, [facility] [place] [facility] [address] [id number] [place] [address] Nov, [facility] [place] [facility] [address] [id number] [place] [address] Nov, [facility] [place] [facility] [address] [id number] [place] [address] Nov, [facility] [place] [facility] [address] [id number] [place] [address] Oct, [facility] [place] [facility] [address] [id number] [place] [address] Oct, [facility] [place] [facility] [address] [id number] [place] [address] Oct, [facility] [place] [facility] [address] [id number] [place] [address] Oct, [facility] [place] [facility] [address] [id number] [place] [address] Sep, [facility] [place] [facility] [address] [id number] [place] [address] Sep, [facility] [place] [facility] [address] [id number] [place] [address] Sep, [facility] [place] [facility] [address] [id number] [place] [address] Sep, [facility] [place] [facility] [address] [id number] [place] [address] Sep, [facility] [place] [facility] [address] [id number] [place] [address] Sep, [facility] [place] [facility] [address] [id number] [place] [address] July, [facility] [place] [facility] [address] [id number] [place] [address] July, [facility] [place] [facility] [address] [id number] [place] [address] July, [facility] [place] [facility] [address] [id number] [place] [address] July, [facility] [place] [facility] [address] [id number] [place] [address] Jun, [facility] [place] [facility] [address] [id number] [place] [address] Jun, [facility] [place] [facility] [address] [id number] [place] [address] Jun, [facility] [place] [facility] [address] [id number] [place] [address] Jun, [facility] [place] [facility] [address] [id number] [place] [address] Jun, [facility] [place] [facility] [address] [id number], [place] [address] Jun, [facility] [place] [facility] [address] [id number] [place] [address] May, [facility] [place] [facility] [address] [id number] [place] [address] May, [facility] [place] [facility] [address] [id number] [place] [address] Apr, [facility] [place] [facility] [address] [id number] [place] [address] Apr, [facility] [place] [facility] [address] [id number] [place] [address] Apr, [facility] [place] [facility] [address] [id number] [place] [address] Apr, [facility] [place] [facility] [address] [id number] [place] [address] Apr, [facility] [place] [facility] [address] [id number] [place] [address] Apr, [facility] [place] [facility] [address] [id number] [place] [address] Apr, [facility] [place] [facility] [address] [id number] [place] [address] Mar, [facility] [place] [facility] [address] [id number] [place] [address] Mar, [facility] [place] [facility] [address] [id number] [place] [address] Mar, [facility] [place] [facility] [address] [id number] [place] [address] Mar, [facility] [place] [facility] [address] [id number] [place] [address] Mar, [facility] [place] [facility] [address] [id number] [place] [address] Mar, [facility] [place] [facility] [address] [id number] [place] [address] Mar, [facility] [place] [facility] [address] [id number] [place] [address] Mar, [facility] [place] [facility] [address] [id number] [place] [address] Feb, [facility] [place] [facility] [address] [id number] [place] [address] Feb, [facility] [place] [facility] [address] [id number] [place] [address] Feb, [facility] [place] [facility] [address] [id number], [place] [address] Feb, [facility] [place] [facility] [address] [facility] [id number] [place] [address] Feb, [facility] [place] [facility] [address] [id number], [place] [address] Feb, [facility] [place] [facility] [address] [id number] [place] [address] Feb, [facility] [place] [facility] [address] [id number], [place] [address] Jan, [facility] [place] [facility] [address] [id number], [place] [address] Jan, [facility] [place] [facility] [address] [id number], [place] [address] Jan, [facility] [place] [facility] [address] [id number], [place] [address] Jan, [facility] [place] [facility] [address] [facility] [id number], [place] [address] Jan, [facility] [place] [facility] [address] [id number], [place] [address] Jan, [facility] [place] [facility] [address] [id number] [address] Jan, [facility] [place] [facility] [address] [id number] [address] Jan, [facility] [place] [facility] [address] [id number], [place] [address] Dec, [facility] [place] [facility] [address] [id number], [place] [address] Dec, [facility] [place] [facility] [address] [id number], [place] [address] Dec, [facility] [place] [facility] [address] [id number] [place] [address] Dec, [facility] [place] [facility] [address] [id number] [place] [address] 31 Dec, 2012 [facility] [place] [facility] [address] [id number] [place] [address] Dec, [facility] [place] [facility] [address] [id number] [place] [address] Dec, [facility] [place] [facility] [address] [id number] [place] [address] 16 Dec, 2012 [facility] [place] [facility] [address] [id number] [place] [address] 16 Dec, 2012 [facility] [place] [facility] [address] [id number], [place] [address] 04 Dec, 2012 [facility] [place] [facility] [address] [id number] [id number] 27 Nov, 2012 [facility] [place] [facility] [address] [id number] [id number] 27 Nov, 2012 [facility] [place] [facility] [address] [id number], [place] [address] 24 Nov, 2012 [facility] [place] [facility] [address] [id number], [place] [address] 20 Nov, 2012 [facility] [place] [facility] [address] [id number], [place] [address] 19 Sep, 2012 [facility] [place] [facility] [address] [id number], [place] [address] 13 Sep, 2012 [facility] [place] [facility] [address] [id number], [place] [address] 10 Sep, 2012 [facility] [place] [facility] [address] [id number] [place] [address] 06 Sep, 2012 [facility] [place] [facility] [address] [id number] [place] [address] Oct, [facility] [address] [id number] [place] [address] Oct, [facility] [address] [id number] [place] [address] Oct, [facility] [address] [id number] [place] [address] Sep, [facility] [address] [id number] [place] [address] Sep, [facility] [address] [id number] [place] [address] Sep, [facility] [address] [id number] [place] [address] Sep, [facility] [address] [id number] [place] [address] Sep, [facility] [address] [id number] [place] [address] Aug, [facility] [address] [id number] [place] [address] Aug, [facility] [address] [id number] [place] [address] Aug, [facility] [address] [id number] [place] [address] Aug, [facility] [address] [id number] [place] [address] Aug, [facility] [place] [facility] [address] [id number] [place] [address] Aug, [facility] [place] [facility] [address] [id number] [place] [address] July, [facility] [address] [id number] [place] [address] July, [facility] [address] [id number] [place] [address] July, [facility] [address] [id number] [place] [address] July, [facility] [address] [id number] [place] [address] July, [facility] [address] [id number] [place] [address] July, [facility] [address] [id number] [place] [address] Jun, [facility] [address] [id number] [place] [address] Jun, [facility] [address] [id number] [place] [address] Jun, [facility] [address] [id number] [place] [address] Jun, [facility] [address] [id number] [place] [address] May, [facility] [address] [id number] [place] [address] May, [facility] [address] [id number] [place] [address] May, [facility] [address] [id number] [place] [address] Apr, [facility] [address] [id number] [place] [address] Mar, [facility] [address] [id number] [place] [address] Mar, [facility] [place] [facility] [address] [id number] [place] [address] Mar, [facility] [place] [facility] [address] [id number], [place] [address] 16 Mar, 2012 [facility] [address] [id number] [place] [address] 15 Mar, 2012 [facility] [place] [facility] [address] [id number] [place] [address] Feb, [facility] [place] [facility] [address] [id number] [place] [address] Feb, [facility] [place] [facility] [address] [id number] [place] [address] 17 Feb, 2012 [facility] [place] [facility] [address] [id number] [place] [address], [place] [address] Feb, [facility] [place] [facility] [address] [id number] [place] [address] Jan, [facility] [place] [facility] [address] [id number] [place] [address] Jan, [facility] [place] [facility] [address] [id number] [place] [address] Jan, [facility] [place] [facility] [address] [id number] [place] [address] Jan, [facility] [place] [facility] [address] [facility] [id number] [place] [address] Dec, [facility] [place] [facility] [address] [id number] [place] [address] Dec, [facility] [place] [facility] [address] [id number], [place] [address] Nov, [facility] [place] [facility] [address] [id number] [place] [address] Oct, [facility] [place] [facility] [address] [id number] [place] [address] Oct, [facility] [place] [facility] [address] [id number], [place] [address] Oct, [facility] [place] [facility] [address] [id number] [place] [address] Oct, [facility] [address] [id number] [place] [address] Oct, [facility] [address] [id number] [place] [address] Sep, [facility] [address] [id number] [place] [address] Sep, [facility] [address] [id number] [place] [address] Aug, [facility] [address] [place] [id number] Aug, [facility] [address] [id number] [place] [address] Aug, [facility] [address] [id number] [place] [address] July, [facility] [address] [id number] [place] [address] July, [facility] [address] [id number] [place] [address] Jun, [facility] [address] [id number] [place] [address] Jun, [facility] [address] [id number] [place] [address] 16 Jun, 2011 [facility] [address] [id number] [place] [address] 13 Jun, 2011 [facility] [address] [id number] [place] [address] 15 Apr, 2011 [facility] [address] [id number] [place] [address] 15 Apr, 2011 [facility] [address] [id number] [place] [address] Apr, [facility] [place] [facility] [address] [id number] [place] [address] Mar, [facility] [place] [facility] [address] [id number] [place] [address] Mar, [facility] [place] [facility] [address] [id number] [place] [address] Mar, [facility] [place] [facility] [address] [id number] [place] [address] Mar, [facility] [place] [facility] [address] [id number] [place] [address] Mar, [facility] [place] [facility] [address] [id number] [place] [address] Jan, [facility] [place] [facility] [address] [id number] [place] [address] Jan, [facility] [place] [facility] [address] [id number] [place] [address] Jan, [facility] [place] [facility] [address] [id number] [place] [address] Mar, [facility] [place] [facility] [address] [id number], [place] [address] Mar, [facility] [place] [facility] [address] [id number], [place] [address] Feb, [facility] [place] [facility] [address] [id number], [place] [address] 16 Feb, 2010 [facility] [place] [facility] [address] [id number] [place] [address] Feb, [facility] [place] [facility] [address] [id number], [place] [address] Jan, [facility] [place] [facility] [address] [id number], [place] [address] 17 Jan, 2010 [facility] [place] [facility] [address] [id number], [place] [address] Dec, [facility] [address] [id number] [address] Dec, [facility] [id number] [address] May, [facility] [id number] [address] Apr, [facility] [id number] [address] Feb, [facility] [id number], [place] [address] Feb, [facility] [id number] [address] Jan, [facility] [id number], [place] [address] Jan, [facility] [id number] [place] [address] Jan, [facility] [id number] [address] Jan, [facility] [address] [id number], [place] [address] Jan, IMMUNIZATIONS No Known Immunizations SOCIAL HISTORY Never Assessed REASON FOR VISIT medication PLAN OF CARE VITAL SIGNS MEDICATIONS Medication Instructions Dosage Frequency Start Date End Date Duration Status Lexapro 10 MG Orally Once a day 0.5 tablet daily for one week then take full tab daily 24h Oct, 30 day(s) Active RESULTS No Results PROCEDURES No Known [...]
--- OUTSIDE RECORDS SUMMARY | 2018-10-04 06:35 | XMS REPORT ---
Author Author DELILAH FEDERICO Organization [facility] Address [address] [place] [address] Care Team Providers Care Back Tender [employer] Name Role Phone AGUILARFEDERICO ADHIKARI Unavailable PROBLEMS Type Condition ICD9-CM Code VYY70-CL Code Onset Dates Condition Status SNOMED Code Problem Primary osteoarthritis of both knees M17.0 Active 847686776 Problem Nocturnal hypoxia G47.34 Active 024849655 Problem Chronic prescription opiate use Z79.891 Active 036082741 Problem Pure hypercholesterolemia E78.0 Active 545674973 Problem Acute right-sided low back pain with right-sided sciatica M54.41 Active 74422912 Problem Type 2 diabetes mellitus with diabetic polyneuropathy E11.42 Active 023704423 Problem Severe major depression with psychotic features F32.3 Active 41221979 Problem Obesity, morbid, BMI 40.0-49.9 E66.01 Active 338979585 Problem Posttraumatic stress disorder F43.10 Active 59424345 Problem Primary insomnia F51.01 Active 2810863 Problem Mood disorder F39 Active 04013525 Problem History of DVT (deep vein thrombosis) Z86.718 Active 223002617 Problem Chronic pain syndrome G89.4 Active 634107768 Problem Chronic systolic (congestive) heart failure I50.22 Active 095231375 Problem Macrocytosis D75.89 Active 072761461 Problem Tobacco abuse Z72.0 Active 626642500 Problem Mild episode of recurrent major depressive disorder F33.0 Active 922969469 Problem BMI 45.0-49.9, adult Z68.42 Active 766425278 Problem Gastroesophageal reflux disease, esophagitis presence not specified K21.9 Active 501608652 Problem Non-ischemic cardiomyopathy I42.9 Active 57069385 Problem Essential hypertension I10 Active 23343956 Problem Major depressive disorder, recurrent episode, unspecified severity F33.9 Active 06714519 Problem PTSD (post-traumatic stress disorder) F43.10 Active 36719703 Problem MITCHELL treated with BiPAP G47.33 Active 12895233 Problem Chronic obstructive pulmonary disease, unspecified COPD type J44.9 Active 50157710 Problem History of weight loss surgery Z98.84 Active 027676700 ALLERGIES Substance Reaction Event Type Date Status Chantix nausea Drug Allergy Oct, Active ENCOUNTERS Encounter Location Date Diagnosis [facility] [id number] [place] [address] Nov, [place] [address] [address] Oct, BMI 45.0-49.9, adult Z68.42 ; Type 2 diabetes mellitus with diabetic polyneuropathy E11.42 ; Chronic pain syndrome G89.4 ; Gastroesophageal reflux disease, esophagitis presence not specified K21.9 ; Decreased pedal pulses R09.89 and Precordial pain R07.2 [place] [id number] [place] [address] Oct, [place] [id number] [place] [address] Oct, Mood disorder F39 [place] [id number] [place] [address] Oct, Mood disorder F39 ; Posttraumatic stress disorder F43.10 and BMI 45.0-49.9, adult Z68.42 [place] [id number] [place] [address] Sep, Primary osteoarthritis of both knees M17.0 and Chronic pain syndrome G89.4 [facility] [id number] [place] [address] Sep, Mood disorder F39 and Posttraumatic stress disorder F43.10 [place] [id number] [place] [address] Aug, Primary osteoarthritis of both knees M17.0 and Chronic pain syndrome G89.4 [place] [id number] [place] [address] July, Primary osteoarthritis of both knees M17.0 and Chronic pain syndrome G89.4 [facility] [id number] [address] July, Type 2 diabetes mellitus with diabetic polyneuropathy E11.42 ; Essential hypertension I10 ; Pure hypercholesterolemia E78.0 ; Chronic prescription opiate use Z79.891 ; Tobacco abuse Z72.0 ; Primary osteoarthritis of both knees M17.0 ; Primary insomnia F51.01 and BMI 45.0-49.9, adult Z68.42 [facility] [id number] [place] [address] 08 Jul, 2017 Medicare annual wellness visit, [...] K21.9 and Encounter for immunization Z23 [facility] [id number] [place] [address] July, Primary osteoarthritis of both knees M17.0 and Chronic pain syndrome G89.4 [facility] [id number] [address] Jun, Infection of right ear H66.91 ; Wheezing on auscultation R06.2 and BMI 45.0-49.9, adult Z68.42 [facility] [id number] [address] Jun, [facility] [id number] [place] [address] Jun, Primary osteoarthritis of both knees M17.0 and Chronic pain syndrome G89.4 [facility] [id number] [address] May, [facility] [id number] [place] [address] May, BMI 45.0-49.9, adult Z68.42 ; Mood disorder F39 and Posttraumatic stress disorder F43.10 [facility] [id number] [place] [address] May, [facility] [id number] [place] [address] May, Primary osteoarthritis of both knees M17.0 and Chronic pain syndrome G89.4 [facility] [id number] [place] [address] May, Mood disorder F39 [place] [id number] [place] [address] Apr, Type 2 diabetes mellitus with diabetic polyneuropathy E11.42 [facility] [id number] [place] [address] Apr, [facility] [id number] [place] [address] Apr, Primary osteoarthritis of both knees M17.0 and Chronic pain syndrome G89.4 [facility] [id number] [place] [address] Apr, Mood disorder F39 [facility] [id number] [place] [address] Mar, Mood disorder F39 and Posttraumatic stress disorder F43.10 [facility] [id number] [place] [address] Mar, Primary osteoarthritis of both knees M17.0 and Chronic pain syndrome G89.4 [facility] [id number] [place] [address] Feb, Primary osteoarthritis of both knees M17.0 and Chronic pain syndrome G89.4 [facility] [id number] [place] [address] Feb, Mood disorder F39 [facility] [id number] [place] [address] Jan, Type 2 diabetes mellitus with diabetic polyneuropathy E11.42 ; Primary osteoarthritis of both knees M17.0 ; Mood disorder F39 ; Obesity, morbid, BMI 40.0-49.9 E66.01 ; Chronic prescription opiate use Z79.891 ; Acute suppurative otitis media of both ears without spontaneous rupture of tympanic membranes, recurrence not specified H66.003 and BMI 45.0-49.9, adult Z68.42 [facility] [address] [address] Jan, Primary osteoarthritis of both knees M17.0 and Chronic pain syndrome G89.4 [facility] [id number] [place] [address] Dec, Mood disorder F39 and Posttraumatic stress disorder F43.10 [facility] [address] [address] Dec, Primary osteoarthritis of both knees M17.0 and Chronic pain syndrome G89.4 [facility] [address] [address] 18 Nov, 2016 Chronic pain syndrome G89.4 [facility] [id number] [place] [address] 15 Nov, 2016 Primary osteoarthritis of both knees M17.0 and Chronic pain syndrome G89.4 [facility] [id number] [place] [address] 13 Nov, 2016 Type 2 diabetes mellitus with diabetic polyneuropathy E11.42 and Chronic pain syndrome G89.4 [facility] [address] [address] 12 Nov, 2016 Posttraumatic stress disorder F43.10 and Mood disorder F39 [facility] [id number] [place] [address] Oct, Chronic pain syndrome G89.4 [facility] [id number] [address] Oct, Type 2 diabetes mellitus with diabetic polyneuropathy E11.42 ; BMI 45.0-49.9, adult Z68.42 ; Primary osteoarthritis of both knees M17.0 and Skin lesion L98.9 [facility] [id number] [address] Oct, Chronic pain syndrome G89.4 [facility] [id number] [place] [address] Sep, Chronic pain syndrome G89.4 [facility] [id number] [place] [address] Sep, [facility] [id number] [place] [address] Sep, Chronic pain syndrome G89.4 [facility] [id number] [place] [address] Aug, Chronic pain syndrome G89.4 [facility] [id number] [place] [address] Aug, [facility] [id number] [place] [address] Aug, Macrocytosis D75.89 and Pure hypercholesterolemia E78.0 [facility] [id number] [place] [address] Aug, Pure hypercholesterolemia E78.0 [facility] [id number] [place] [address] Aug, Macrocytosis D75.89 [facility] [id number] [place] [address] Aug, Pure hypercholesterolemia E78.0 ; Type 2 diabetes mellitus with diabetic polyneuropathy E11.42 ; MITCHELL treated with BiPAP G47.33 and Chronic pain syndrome G89.4 [facility] [id number] [address] Aug, [facility] [id number] [place] [address] Aug, Hemorrhoids, unspecified hemorrhoid type K64.9 [facility] [id number] [place] [address] Aug, Chronic pain syndrome G89.4 ; Type 2 diabetes mellitus with diabetic polyneuropathy E11.42 ; Hemorrhoids, unspecified hemorrhoid type K64.9 ; Tobacco abuse Z72.0 and Primary osteoarthritis of both knees M17.0 [facility] [id number] [place] [address] July, Chronic pain syndrome G89.4 [facility] [id number] [place] [address] July, [facility] [id number] [place] [address] Jun, Chronic pain syndrome G89.4 [facility] [id number] [place] [address] Jun, Chronic pain syndrome G89.4 [facility] [id number] [place] [address] Jun, Severe major depression with psychotic features F32.3 and Posttraumatic stress disorder F43.10 [facility] [id number] [place] [address] Jun, Chronic pain syndrome G89.4 [facility] [id number] [address] Jun, [facility] [id number] [place] [address] May, Chronic pain syndrome G89.4 [facility] [id number] [place] [address] May, Tobacco abuse Z72.0 [facility] [id number] [address] May, [facility] [id number] [place] [address] Apr, Chronic pain syndrome G89.4 [facility] [id number] [place] [address] Apr, [facility] [id number] [place] [address] Apr, Right foot pain M79.671 [facility] [id number] [place] [address] Mar, Type 2 diabetes mellitus with diabetic polyneuropathy E11.42 ; MITCHELL treated with BiPAP G47.33 ; Pure hypercholesterolemia E78.0 ; Chronic pain syndrome G89.4 ; Tobacco abuse Z72.0 and Obesity, morbid, BMI 40.0-49.9 E66.01 [facility] [id number] [place] [address] Mar, [facility] [id number] [place] [address] Mar, [facility] [id number] [place] [address] Mar, [facility] [id number] [place] [address] Mar, [facility] [id number] [place] [address] Mar, [facility] [id number] [place] [address] Mar, Severe major depression with psychotic features F32.3 and Posttraumatic stress disorder F43.10 [facility] [id number] [place] [address] Mar, [facility] [id number] [place] [address] Feb, [facility] [id number] [address] Feb, [facility] [id number] [place] [address] Jan, [facility] [id number] [place] [address] Jan, [facility] [id number] [place] [address] Dec, Posttraumatic stress disorder F43.10 and Severe major depression with psychotic features F32.3 [facility] [address] [address] Dec, Type 2 diabetes mellitus with diabetic polyneuropathy E11.42 ; Chronic pain syndrome G89.4 and Acute right-sided low back pain with right-sided sciatica M54.41 [facility] [id number] [place] [address] Dec, [facility] [id number] [place] [address] Dec, [facility] [id number] [place] [address] Nov, [facility] [id number] [place] [address] Nov, [facility] [id number] [place] [address] Nov, [facility] [id number] [place] [address] Oct, [facility] [id number] [place] [address] Oct, [facility] [id number] [place] [address] Sep, Dental examination Z01.20 [facility] [id number] [place] [address] Sep, [facility] [id number] [place] [address] Sep, Type 2 diabetes mellitus with diabetic polyneuropathy E11.42 ; Chronic pain syndrome G89.4 ; Chronic prescription opiate use Z79.891 ; Injury of right index finger, sequela S69.91XS and Anejaculation N50.8 [facility] [id number] [place] [address] Aug, [facility] [id number] [place] [address] Aug, [facility] [id number] [place] [address] Aug, Cellulitis of finger of right hand L03.011 [facility] [id number] [place] [address] July, [facility] [id number] [place] [address] July, [facility] [id number] [place] [address] Jun, Onychomycosis B35.1 [facility] [id number] [place] [address] Jun, Severe major depression with psychotic features F32.3 and Posttraumatic stress disorder F43.10 [facility] [id number] [place] [address] Jun, [facility] [id number] [place] [address] Jun, [facility] [id number] [place] [address] Jun, [facility] [id number] [address] May, Type 2 diabetes mellitus with diabetic polyneuropathy E11.42 [facility] [id number] [address] May, Type 2 diabetes mellitus with diabetic polyneuropathy E11.42 and Urinary hesitancy R39.11 [facility] [id number] [place] [address] May, Type 2 diabetes mellitus with diabetic polyneuropathy E11.42 ; Left hip pain M25.552 and Benign prostatic hyperplasia with lower urinary tract symptoms, unspecified morphology N40.1 [place] [id number] [place] [address] May, [place] [id number] [place] [address] Apr, Severe major depression with psychotic features F32.3 and Posttraumatic stress disorder F43.10 [place] [id number] [place] [address] Apr, [place] [id number] [place] [address] Mar, [place] [id number] [place] [address] Mar, Dysuria R30.0 and Urinary hesitancy R39.11 [place] [id number] [place] [address] Mar, Onychomycosis B35.1 [place] [id number] [place] [address] Mar, [place] [id number] [place] [address] Feb, [place] [id number] [place] [address] Jan, [facility] [id number] [place] [address] Jan, Posttraumatic stress disorder F43.10 and Severe major depression with psychotic features F32.3 [facility] [id number] [place] [address] Jan, [facility] [id number] [place] [address] Jan, Chronic pain syndrome G89.4 ; Type 2 diabetes mellitus with diabetic polyneuropathy E11.42 ; Decreased pedal pulses R09.89 and Paresthesia of both hands R20.2 [facility] [id number] [place] [address] Dec, Posttraumatic stress disorder F43.10 and Severe major depression with psychotic features F32.3 [facility] [id number] [place] [address] Dec, [facility] [id number] [place] [phone] Dec, [facility] [id number] [place] [phone] Dec, Onychomycosis B35.1 [facility] [id number] [place] [phone] Dec, [facility] [id number] [place] [phone] Dec, [facility] [id number] [place] [phone] Nov, [facility] [id number] [place] [phone] Oct, Depression, major, recurrent, moderate 296.32 and Posttraumatic stress disorder 309.81 [facility] [id number] [place] [address] Oct, [facility] [id number] [place] [address] Oct, [facility] [id number] [place] [address] Oct, [id number] [place] [address] Sep, Posttraumatic stress disorder 309.81 and Depression, major, recurrent, moderate 296.32 [id number] [place] [address] Sep, [id number] [place] [address] Sep, Chronic airway obstruction, not elsewhere classified [id number] [place] [address] Sep, Onychomycosis 110.1 and DM neuro manif type II 250.60 [id number] [place] [address] Sep, Chronic pain 338.29 ; Chronic airway obstruction, not elsewhere classified 496 ; Osteoarthritis of knees, bilateral 715.96 and On potassium wasting diuretic therapy V58.69 [id number] [place] [address] Sep, Insect bites 919.4 ; Sinusitis 473.9 and GERD (gastroesophageal reflux disease) 530.[id number] [place] [address] Aug, Depression, major, recurrent, moderate 296.32 and Posttraumatic stress disorder 309.[id number] [place] [address] Aug, [id number] [place] [address] Aug, [id number] [place] [address] Aug, [id number] [place] [address] July, Major depressive disorder, recurrent episode, moderate 296.32 and Posttraumatic stress disorder 309.81 [id number] [place] [address] July, [facility] [address] [id number] [place] [address] July, [facility] [place] [facility] [address] [id number] [place] [address] July, [facility] [address] [id number] [place] [address] July, [facility] [place] [facility] [address] [id number] [place] [address] Jun, [facility] [address] [id number] [place] [address] Jun, [facility] [address] [id number] [place] [address] May, [facility] [place] [facility] [address] [id number] [place] [address] May, [facility] [address] [id number] [place] [address] May, [facility] [place] [facility] [address] [id number] [place] [address] May, [facility] [address] [id number] [place] [address] May, [facility] [place] [facility] [address] [id number] [place] [address] May, [facility] [place] [facility] [address] [id number] [place] [address] May, [facility] [place] [facility] [address] [id number] [place] [address] May, [facility] [place] [facility] [address] [id number] [place] [address] May, [facility] [place] [facility] [address] [id number] [place] [address] Apr, [facility] [place] [facility] [address] [id number] [place] [address] Apr, 2014 [facility] [place] [facility] [address] [id number] [place] [address] Apr, [facility] [place] [facility] [address] [id number] [place] [address] Apr, 2014 [facility] [place] [facility] [address] [id number] [place] [address] Apr, 2014 [facility] [place] [facility] [address] [id number] [place] [address] Apr, [facility] [place] [facility] [address] [id number] [place] [address] Apr, [facility] [place] [facility] [address] [id number] [place] [address] Apr, [facility] [place] [facility] [address] [id number] [place] [address] Apr, [facility] [place] [facility] [address] [id number] [place] [address] Mar, [facility] [place] [facility] [address] [id number] [place] [address] Mar, [facility] [place] [facility] [address] [id number] [place] [address] Mar, [facility] [place] [facility] [address] [id number] [place] [address] Mar, [facility] [place] [facility] [address] [id number] [place] [address] Mar, [facility] [place] [facility] [address] [id number] [place] [address] Mar, [facility] [place] [facility] [address] [id number] [place] [address] Mar, [facility] [place] [facility] [address] [id number] [place] [address] 15 Mar, 2014 [facility] [address] [id number] [place] [address] 15 Mar, 2014 [facility] [place] [facility] [address] [id number] [place] [address] 15 Mar, 2014 [facility] [address] [id number] [place] [address] 14 Mar, 2014 [facility] [address] [id number] [place] [address] 14 Mar, 2014 [facility] [address] [id number] [place] [address] 14 Mar, 2014 [facility] [address] [id number] [place] [address] 14 Mar, 2014 [facility] [address] [id number] [place] [address] 14 Mar, 2014 [facility] [address] [id number] [place] [address] 14 Mar, 2014 [facility] [address] [id number] [place] [address] 09 Mar, 2014 [facility] [address] [id number] [place] [address] 09 Mar, 2014 [facility] [address] [id number] [place] [address] 16 Feb, 2014 [facility] [address] [id number] [place] [address] 16 Feb, 2014 [facility] [place] [facility] [address] [id number] [place] [address] 15 Feb, 2014 [facility] [place] [facility] [address] [id number] [place] [address] 15 Feb, 2014 [facility] [place] [facility] [address] [id number] [place] [address] Feb, [facility] [place] [facility] [address] [id number] [place] [address] Feb, [facility] [place] [facility] [address] [id number] [place] [address] Jan, [facility] [place] [facility] [address] [id number] [place] [address] Jan, [facility] [place] [facility] [address] [id number] [place] [address] Jan, [facility] [place] [facility] [address] [id number] [place] [address] Jan, [facility] [place] [facility] [address] [id number] [place] [address] Jan, [facility] [place] [facility] [address] [id number] [place] [address] Jan, [facility] [place] [facility] [address] [id number] [address] Jan, [facility] [place] [facility] [address] [id number] [place] [address] Jan, [facility] [place] [facility] [address] [id number] [place] [address] Jan, [facility] [place] [facility] [address] [id number] [place] [address] Jan, [facility] [place] [facility] [address] [id number] [place] [address] Dec, [facility] [place] [facility] [address] [id number] [place] [address] Dec, [facility] [place] [facility] [address] [id number] [place] [address] Dec, [facility] [place] [facility] [address] [id number] [place] [address] Dec, [facility] [place] [facility] [address] [id number] [place] [address] 16 Nov, 2013 [facility] [place] [facility] [address] [id number] [place] [address] 16 Nov, 2013 [facility] [place] [facility] [address] [id number] [place] [address] Nov, [facility] [place] [facility] [address] [id number] [place] [address] Nov, 2013 [facility] [place] [facility] [address] [id number] [place] [address] Nov, [facility] [place] [facility] [address] [id number] [place] [address] Nov, [facility] [place] [facility] [address] [id number] [place] [address] Oct, [facility] [place] [facility] [address] [id number] [place] [address] Oct, [facility] [place] [facility] [address] [id number] [place] [address] Oct, [facility] [place] [facility] [address] [id number] [place] [address] Oct, [facility] [place] [facility] [address] [id number] [place] [address] Sep, [facility] [place] [facility] [address] [id number] [place] [address] Sep, [facility] [place] [facility] [address] [id number] [place] [address] Sep, [facility] [place] [facility] [address] [id number] [place] [address] Sep, [facility] [place] [facility] [address] [id number] [place] [address] Sep, [facility] [place] [facility] [address] [id number] [place] [address] Sep, [facility] [place] [facility] [address] [id number] [place] [address] July, [facility] [place] [facility] [address] [id number] [place] [address] July, [facility] [place] [facility] [address] [id number] [place] [address] July, [facility] [place] [facility] [address] [id number] [place] [address] July, [facility] [place] [facility] [address] [id number] [place] [address] Jun, [facility] [place] [facility] [address] [id number] [place] [address] Jun, [facility] [place] [facility] [address] [id number] [place] [address] Jun, [facility] [place] [facility] [address] [id number] [place] [address] Jun, [facility] [place] [facility] [address] [id number] [place] [address] Jun, [facility] [place] [facility] [address] [id number] [place] [address] Jun, [facility] [place] [facility] [address] [id number] [place] [address] May, [facility] [place] [facility] [address] [id number] [place] [address] May, [facility] [place] [facility] [address] [id number] [place] [address] Apr, [facility] [place] [facility] [address] [id number] [place] [address] Apr, [facility] [place] [facility] [address] [id number] [place] [address] Apr, [facility] [place] [facility] [address] [id number] [place] [address] Apr, [facility] [address] [id number] [place] [address] Apr, [facility] [place] [facility] [address] [id number] [place] [address] Apr, [facility] [place] [facility] [address] [facility] [id number] [place] [address] Apr, [facility] [place] [facility] [address] [id number] [place] [address] Mar, [facility] [place] [facility] [address] [id number] [place] [address] Mar, [facility] [place] [facility] [address] [id number] [place] [address] Mar, [facility] [address] [id number] [place] [address] Mar, [facility] [place] [facility] [address] [id number] [place] [address] Mar, [facility] [place] [facility] [address] [id number] [place] [address] Mar, [facility] [place] [facility] [address] [facility] [id number] [place] [address] Mar, [facility] [place] [facility] [address] [id number] [place] [address] Mar, [facility] [place] [facility] [address] [id number] [place] [address] Feb, [facility] [place] [facility] [address] [id number] [place] [address] Feb, [facility] [place] [facility] [address] [id number] [place] [address] Feb, [facility] [place] [facility] [address] [facility] [id number] [place] [address] Feb, [facility] [place] [facility] [address] [id number] [place] [address] Feb, [facility] [place] [facility] [address] [id number] [place] [address] Feb, [facility] [place] [facility] [address] [id number] [place] [address] Feb, [facility] [place] [facility] [address] [id number] [place] [address] Jan, [facility] [place] [facility] [address] [id number] [place] [address] Jan, [facility] [place] [facility] [address] [id number] [place] [address] Jan, [facility] [place] [facility] [address] [id number] [place] [address] Jan, [facility] [place] [facility] [address] [id number] [place] [address] Jan, [facility] [place] [facility] [address] [id number] [place] [address] Jan, [facility] [place] [facility] [address] [id number] [place] [id number] Jan, [facility] [place] [facility] [address] [id number] [place] [id number] Jan, [facility] [place] [facility] [address] [id number] [place] [address] Dec, [facility] [place] [facility] [address] [id number] [place] [address] Dec, [facility] [place] [facility] [address] [id number] [place] [address] Dec, [facility] [place] [facility] [address] [id number] [place] [address] Dec, [facility] [place] [facility] [address] [id number] [place] [address] Dec, [facility] [place] [facility] [address] [id number] [place] [address] Dec, [facility] [place] [facility] [address] [id number] [place] [address] Dec, [facility] [place] [facility] [address] [id number] [place] [address] Dec, [facility] [place] [facility] [address] [id number] [place] [address] Dec, [facility] [place] [facility] [address] [id number] [place] [address] Dec, [facility] [place] [facility] [address] [id number] [place] [id number] 27 Nov, 2012 [facility] [place] [facility] [address] [id number] [place] [id number] 27 Nov, 2012 [facility] [place] [facility] [address] [id number] [place] [address] 24 Nov, 2012 [facility] [place] [facility] [address] [id number] [place] [address] 20 Nov, 2012 [facility] [place] [facility] [address] [id number] [place] [address] 19 Nov, 2012 [facility] [place] [facility] [address] [id number] [place] [address] 13 Nov, 2012 [facility] [place] [facility] [address] [id number] [place] [address] 10 Nov, 2012 [facility] [place] [facility] [address] [id number] [place] [address] 06 Nov, 2012 [facility] [place] [facility] [address] [id number] [place] [address] Oct, [facility] [place] [facility] [address] [id number] [place] [address] Oct, [facility] [place] [facility] [address] [id number] [place] [address] Oct, [facility] [address] [id number] [place] [address] Sep, [facility] [place] [facility] [address] [id number] [place] [address] Sep, [facility] [place] [facility] [address] [id number] [place] [address] Sep, [facility] [place] [facility] [address] [id number] [place] [address] Sep, [facility] [place] [facility] [address] [id number] [place] [address] Sep, [facility] [place] [facility] [address] [id number] [place] [address] Aug, [facility] [place] [facility] [address] [id number] [place] [address] Aug, [facility] [place] [facility] [address] [id number] [place] [address] Aug, [facility] [place] [facility] [address] [id number] [place] [address] Aug, [facility] [place] [facility] [address] [id number] [place] [address] Aug, [facility] [place] [facility] [address] [id number] [place] [address] Aug, [facility] [place] [facility] [address] [id number] [place] [address] July, [facility] [place] [facility] [address] [id number] [place] [address] July, [facility] [place] [facility] [address] [id number] [place] [address] July, [facility] [place] [facility] [address] [id number] [place] [address] July, [facility] [place] [facility] [address] [id number] [place] [address] July, [facility] [address] [id number] [place] [address] July, [facility] [address] [id number] [place] [address] Jun, [facility] [address] [id number] [place] [address] Jun, [facility] [address] [id number] [place] [address] Jun, [facility] [address] [id number] [place] [address] Jun, [facility] [address] [id number] [place] [address] May, [facility] [address] [id number] [place] [address] May, [facility] [address] [id number] [place] [address] May, [facility] [address] [id number] [place] [address] Apr, [facility] [address] [id number] [place] [address] Mar, [facility] [address] [id number] [place] [address] Mar, [facility] [address] [id number] [place] [address] 17 Mar, 2012 [facility] [address] [id number] [place] [address] 16 Mar, 2012 [facility] [address] [id number] [place] [address] 15 Mar, 2012 [facility] [address] [id number] [place] [address] Feb, [facility] [place] [facility] [address] [id number] [place] [address] Feb, [facility] [place] [facility] [address] [id number] [place] [address] Feb, [facility] [place] [facility] [address] [id number] [place] [address] Feb, [facility] [place] [facility] [address] [id number] [place] [address] Jan, [facility] [place] [facility] [address] [id number] [place] [address] Jan, [facility] [place] [facility] [address] [id number] [place] [address] Jan, [facility] [place] [facility] [address] [id number] [place] [address] Jan, [facility] [place] [facility] [address] [id number] [place] [address] Dec, [facility] [place] [facility] [address] [id number] [place] [address] Dec, [facility] [place] [facility] [address] [id number] [address] Nov, [facility] [place] [facility] [address] [id number] [place] [address] Oct, [facility] [place] [facility] [address] [id number] [place] [address] Oct, [facility] [place] [facility] [address] [id number] [place] [address] Oct, [facility] [place] [facility] [address] [id number] [place] [address] Oct, [facility] [place] [facility] [address] [id number] [place] [address] Oct, [facility] [place] [facility] [address] [id number] [place] [address] Sep, [facility] [address] [id number] [place] [address] Sep, [facility] [address] [id number] [place] [address] Aug, [facility] [address] [place] [id number] Aug, [facility] [address] [id number] [place] [address] Aug, [facility] [address] [id number] [place] [address] July, [facility] [address] [id number] [place] [address] July, [facility] [address] [id number] [place] [address] Jun, [facility] [address] [id number] [place] [address] Jun, [facility] [address] [id number] [place] [address] Jun, [facility] [address] [id number] [place] [address] Jun, [facility] [address] [id number] [place] [address] Apr, [facility] [place] [facility] [address] [id number] [place] [address] Apr, [facility] [address] [id number] [place] [address] Apr, [facility] [address] [id number] [place] [address] Mar, [facility] [place] [facility] [address] [id number] [place] [address] Mar, [facility] [address] [id number] [place] [address] Mar, [facility] [address] [id number] [place] [address] Mar, [facility] [address] [id number] [place] [address] Mar, [facility] [address] [id number] [place] [address] Jan, [facility] [address] [id number] [place] [address] Jan, [facility] [address] [id number] [place] [address], [place] [address] Jan, [facility] [address] [id number] [place] [address] Mar, [facility] [address] [facility] [id number] [place] [address] Mar, [facility] [address] [id number] [place] [address] Feb, [facility] [address] [id number] [place] [address] Feb, [facility] [address] [facility] [id number] [place] [address] 16 Feb, 2010 [facility] [address] [id number] [place] [address] 17 Jan, 2010 [facility] [address] [id number] [place] [address] 17 Jan, 2010 [facility] [address] [id number] [place] [address] Dec, [facility] [place] [facility] [address] [id number] [place] [address] Dec, [facility] [address] [id number] [place] [address] May, [facility] [address] [id number] [address] Apr, [facility] [id number] [address] Feb, [facility] [id number] [address] Feb, [facility] [id number] [address] Jan, [facility] [id number] [address] Jan, [facility] [id number] [address] Jan, [facility] [id number] [address] Jan, [facility] [id number] [address] Jan, IMMUNIZATIONS No Known Immunizations SOCIAL HISTORY Never Assessed REASON FOR VISIT villa/jeri Cruz MA PLAN OF CARE Activity Details Follow Up 6 Weeks Reason: VITAL SIGNS Height 66 in 2017-10-13 Weight 300.2 lbs 2017-10-13 Heart Rate 86 bpm 2017-10-13 Respiratory Rate 20 2017-10-13 Oximetry 91 % 2017-10-13 BMI 48.45 kg/m2 2017-10-13 Blood pressure systolic 128 mmHg 2017-10-13 Blood pressure diastolic 70 mmHg 2017-10-13 MEDICATIONS Medication Instructions Dosage Frequency Start Date End Date Duration Status Invega 6 MG Orally Once a day 2 tablets 24h Active Clickfine Pen [place] 31 gauge ONE - DAILY E11.42 100 Active Pen [place] 31G X 6 MM as directed 24h May, Active Ventolin HFA 108 (90 Base) MCG/ACT Inhalation every 4 hrs 2 puffs as needed 4h Mar, Active Pataday 0.2 % Ophthalmic 2 times a day 1 drop to affected eyes 12h Mar, Active Metformin HCl 500 MG TAKE ONE TABLET BY MOUTH TWICE DAILY WITH MEALS 90 Active Atorvastatin Calcium 40 MG TAKE ONE TABLET BY MOUTH ONCE DAILY. DUE FOR FASTING LABS Active Ibuprofen 800 MG TAKE ONE TABLET BY MOUTH THREE TIMES DAILY NEEDED 90 days Active Cyclobenzaprine HCl 10 MG TAKE ONE TABLET BY MOUTH THREE TIMES DAILY NEEDED 10 Active Trintellix 10 MG Orally Once a day 1 tablet 24h Oct, 30 day(s) Active Insulin Syringe 31G X 5/16 subcutaneously Once a day as directed 24h Aug, Active Gabapentin 600 MG TAKE TWO TABLETS BY MOUTH THREE TIMES DAILY 30 Active Victoza 18 MG/3ML Subcutaneous Once a day 1.2 mg 24h Aug, 30 days Active HydrOXYzine Pamoate 50 MG TAKE ONE TO TWO CAPSULES BY MOUTH THREE TIMES DAILY NEEDED FOR ANXIETY AND SLEEP Active Hydrocodone-Acetaminophen 5-325 MG Orally every 6 hrs 1 tablet as needed 6h Sep, 28 days Active Pantoprazole Sodium 40 MG TAKE ONE TABLET BY MOUTH ONCE DAILY 30 Active MS Contin 30 MG Orally every 12 hrs 1 tablet 12h Sep, 28 days Active Trazodone HCl 150 MG Orally Once a day 1 tablet at bedtime 24h July, 90 days Active RESULTS No Results PROCEDURES Procedure Date Ordered Result Body Site [facility] VISIT ESTABLISHED PATIENT Oct 13, 2017 INSTRUCTIONS MEDICATIONS ADMINISTERED No Known Medications [...] Hospitalization History ED then admitted to [facility]-cardiac stepdown-chest pain 02/2010 Hospitalization History Possible DVT-sono negative 06/2010 Hospitalization History cellulitis to bilat legs
--- OUTSIDE RECORDS SUMMARY | 2018-10-04 06:35 | XMS REPORT ---
Author KISHA [facility] Address [address] [place] [address] Care Team Providers Care Armor Officer Name Role Phone PALMIRA KISHA Unavailable PROBLEMS Type Condition ICD9-CM Code [id number] Code Onset Dates Condition Status SNOMED Code Problem Primary osteoarthritis of both knees M17.0 Active 381448500 Problem Nocturnal hypoxia G47.34 Active 604492259 Problem Chronic prescription opiate use Z79.891 Active 363783566 Problem Pure hypercholesterolemia E78.0 Active 013173170 Problem Acute right-sided low back pain with right-sided sciatica M54.41 Active 35200670 Problem Type 2 diabetes mellitus with diabetic polyneuropathy E11.42 Active 264878457 Problem Severe major depression with psychotic features F32.3 Active 54140749 Problem Obesity, morbid, BMI 40.0-49.9 E66.01 Active 800640743 Problem Posttraumatic stress disorder F43.10 Active 26696519 Problem Primary insomnia F51.01 Active 5849591 Problem Mood disorder F39 Active 03926367 Problem History of DVT (deep vein thrombosis) Z86.718 Active 122602384 Problem Chronic pain syndrome G89.4 Active 241833828 Problem Chronic systolic (congestive) heart failure I50.22 Active 061593504 Problem Macrocytosis D75.89 Active 499181627 Problem Tobacco abuse Z72.0 Active 015701358 Problem Mild episode of recurrent major depressive disorder F33.0 Active 757866883 Problem BMI 45.0-49.9, adult Z68.42 Active 942032796 Problem Gastroesophageal reflux disease, esophagitis presence not specified K21.9 Active 239626726 Problem Non-ischemic cardiomyopathy I42.9 Active 08220171 Problem Essential hypertension I10 Active 22683713 Problem Major depressive disorder, recurrent episode, unspecified severity F33.9 Active 46846781 Problem PTSD (post-traumatic stress disorder) F43.10 Active 89054712 Problem MITCHELL treated with BiPAP G47.33 Active 36566269 Problem Chronic obstructive pulmonary disease, unspecified COPD type J44.9 Active 14100924 Problem History of weight loss surgery Z98.84 Active 497112693 ALLERGIES No Information ENCOUNTERS Encounter Location Date Diagnosis [facility] [id number] [place] [address] Nov, [facility] [id number] [place] [address] Nov, [facility] [id number] [place] [address] Oct, BMI 45.0-49.9, adult Z68.42 ; Type 2 diabetes mellitus with diabetic polyneuropathy E11.42 ; Chronic pain syndrome G89.4 ; Gastroesophageal reflux disease, esophagitis presence not specified K21.9 ; Decreased pedal pulses R09.89 and Precordial pain R07.2 [facility] [id number] [place] [address] Oct, [facility] [id number] [place] [address] Oct, Mood disorder F39 [facility] [id number] [place] [address] Oct, Mood disorder F39 ; Posttraumatic stress disorder F43.10 and BMI 45.0-49.9, adult Z68.42 [facility] [id number] [place] [address] Sep, Primary osteoarthritis of both knees M17.0 and Chronic pain syndrome G89.4 [facility] [id number] [place] [address] Sep, Mood disorder F39 and Posttraumatic stress disorder F43.10 [facility] [id number] [place] [address] Aug, Primary osteoarthritis of both knees M17.0 and Chronic pain syndrome G89.4 [facility] [id number] [place] [address] July, Primary osteoarthritis of both knees M17.0 and Chronic pain syndrome G89.4 [facility] [id number] [place] [address] July, Type 2 diabetes mellitus with diabetic polyneuropathy E11.42 ; Essential hypertension I10 ; Pure hypercholesterolemia E78.0 ; Chronic prescription opiate use Z79.891 ; Tobacco abuse Z72.0 ; Primary osteoarthritis of both knees M17.0 ; Primary insomnia F51.01 and BMI 45.0-49.9, adult Z68.42 [facility] [id number] [place] [address] 08 Jul, 2017 Medicare annual wellness visit, [...] specified K21.9 and Encounter for immunization Z23 [facility] [id number] [place] [address] July, Primary osteoarthritis of both knees M17.0 and Chronic pain syndrome G89.4 [facility] [id number] [place] [address] Jun, Infection of right ear H66.91 ; Wheezing on auscultation R06.2 and BMI 45.0-49.9, adult Z68.42 [facility] [id number] [place] [address] Jun, [address] [address] Jun, Primary osteoarthritis of both knees M17.0 and Chronic pain syndrome G89.4 [facility] [id number] [place] [address] May, [facility] [address] [address] May, BMI 45.0-49.9, adult Z68.42 ; Mood disorder F39 and Posttraumatic stress disorder F43.10 [facility] [address] [address] May, [facility] [id number] [place] [address] May, Primary osteoarthritis of both knees M17.0 and Chronic pain syndrome G89.4 [facility] [id number] [place] [address] May, Mood disorder F39 [facility] [id number] [place] [address] Apr, Type 2 diabetes mellitus with diabetic polyneuropathy E11.42 [facility] [id number] [place] [address] Apr, [facility] [address] [address] Apr, Primary osteoarthritis of both knees M17.0 and Chronic pain syndrome G89.4 [facility] [address] [address] Apr, Mood disorder F39 [facility] [address] [address] Mar, Mood disorder F39 and Posttraumatic stress disorder F43.10 [facility] [address] [address] Mar, Primary osteoarthritis of both knees M17.0 and Chronic pain syndrome G89.4 [facility] [address] [address] Feb, Primary osteoarthritis of both knees M17.0 and Chronic pain syndrome G89.4 [facility] [id number] [place] [address] Feb, Mood disorder F39 [facility] [id number] [place] [address] Jan, Type 2 diabetes mellitus with diabetic polyneuropathy E11.42 ; Primary osteoarthritis of both knees M17.0 ; Mood disorder F39 ; Obesity, morbid, BMI 40.0-49.9 E66.01 ; Chronic prescription opiate use Z79.891 ; Acute suppurative otitis media of both ears without spontaneous rupture of tympanic membranes, recurrence not specified H66.003 and BMI 45.0-49.9, adult Z68.42 [facility] [address] [address] Jan, Primary osteoarthritis of both knees M17.0 and Chronic pain syndrome G89.4 [facility] [id number] [place] [address] Dec, Mood disorder F39 and Posttraumatic stress disorder F43.10 [facility] [id number] [place] [address] Dec, Primary osteoarthritis of both knees M17.0 and Chronic pain syndrome G89.4 [facility] [id number] [place] [address] 18 Nov, 2016 Chronic pain syndrome G89.4 [facility] [id number] [place] [address] 15 Nov, 2016 Primary osteoarthritis of both knees M17.0 and Chronic pain syndrome G89.4 [facility] [id number] [place] [address] 13 Nov, 2016 Type 2 diabetes mellitus with diabetic polyneuropathy E11.42 and Chronic pain syndrome G89.4 [facility] [id number] [place] [address] 12 Nov, 2016 Posttraumatic stress disorder F43.10 and Mood disorder F39 [facility] [id number] [place] [address] Oct, Chronic pain syndrome G89.4 [facility] [address] [address] Oct, Type 2 diabetes mellitus with diabetic polyneuropathy E11.42 ; BMI 45.0-49.9, adult Z68.42 ; Primary osteoarthritis of both knees M17.0 and Skin lesion L98.9 [facility] [id number] [place] [address] Oct, Chronic pain syndrome G89.4 [facility] [id number] [place] [address] Sep, Chronic pain syndrome G89.4 [facility] [id number] [place] [address] Sep, [facility] [id number] [place] [address] Sep, Chronic pain syndrome G89.4 [facility] [id number] [place] [address] Aug, Chronic pain syndrome G89.4 [facility] [id number] [place] [address] Aug, [facility] [id number] [place] [address] Aug, Macrocytosis D75.89 and Pure hypercholesterolemia E78.0 [facility] [id number] [place] [address] Aug, Pure hypercholesterolemia E78.0 [facility] [id number] [place] [address] Aug, Macrocytosis D75.89 [facility] [id number] [place] [address] Aug, Pure hypercholesterolemia E78.0 ; Type 2 diabetes mellitus with diabetic polyneuropathy E11.42 ; MITCHELL treated with BiPAP G47.33 and Chronic pain syndrome G89.4 [facility] [id number] [place] [address] Aug, [facility] [id number] [place] [address] Aug, Hemorrhoids, unspecified hemorrhoid type K64.9 [facility] [id number] [place] [address] Aug, Chronic pain syndrome G89.4 ; Type 2 diabetes mellitus with diabetic polyneuropathy E11.42 ; Hemorrhoids, unspecified hemorrhoid type K64.9 ; Tobacco abuse Z72.0 and Primary osteoarthritis of both knees M17.0 [facility] [id number] [place] [address] July, Chronic pain syndrome G89.4 [facility] [id number] [place] [address] July, [facility] [id number] [place] [address] Jun, Chronic pain syndrome G89.4 [facility] [id number] [place] [address] Jun, Chronic pain syndrome G89.4 [facility] [id number] [place] [address] Jun, Severe major depression with psychotic features F32.3 and Posttraumatic stress disorder F43.10 [facility] [id number] [place] [address] Jun, Chronic pain syndrome G89.4 [facility] [id number] [place] [address] Jun, [facility] [id number] [place] [address] May, Chronic pain syndrome G89.4 [facility] [id number] [place] [address] May, Tobacco abuse Z72.0 [facility] [id number] [place] [address] May, [facility] [id number] [place] [address] Apr, Chronic pain syndrome G89.4 [facility] [id number] [place] [address] Apr, [facility] [id number] [place] [address] Apr, Right foot pain M79.671 [facility] [id number] [place] [address] Mar, Type 2 diabetes mellitus with diabetic polyneuropathy E11.42 ; MITCHELL treated with BiPAP G47.33 ; Pure hypercholesterolemia E78.0 ; Chronic pain syndrome G89.4 ; Tobacco abuse Z72.0 and Obesity, morbid, BMI 40.0-49.9 E66.01 [facility] [id number] [place] [address] Mar, [facility] [id number] [place] [address] Mar, [facility] [id number] [place] [address] Mar, [facility] [id number] [place] [address] Mar, [facility] [id number] [place] [address] Mar, [facility] [id number] [place] [address] Mar, Severe major depression with psychotic features F32.3 and Posttraumatic stress disorder F43.10 [facility] [id number] [place] [address] Mar, [facility] [id number] [address] Feb, [facility] [id number] [place] [address] Feb, [facility] [address] [address] Jan, [facility] [id number] [place] [address] Jan, [facility] [id number] [place] [address] Dec, Posttraumatic stress disorder F43.10 and Severe major depression with psychotic features F32.3 [facility] [id number] [place] [address] Dec, Type 2 diabetes mellitus with diabetic polyneuropathy E11.42 ; Chronic pain syndrome G89.4 and Acute right-sided low back pain with right-sided sciatica M54.41 [facility] [address] [address] Dec, [facility] [id number] [place] [address] Dec, [facility] [id number] [address] Nov, [facility] [address] [address] Nov, [facility] [address] [address] Nov, [facility] [address] [address] Oct, [facility] [address] [address] Oct, [facility] [address] [address] Sep, Dental examination Z01.20 [facility] [address] [address] Sep, [facility] [id number] [place] [address] Sep, Type 2 diabetes mellitus with diabetic polyneuropathy E11.42 ; Chronic pain syndrome G89.4 ; Chronic prescription opiate use Z79.891 ; Injury of right index finger, sequela S69.91XS and Anejaculation N50.8 [facility] [id number] [place] [address] Aug, [facility] [id number] [place] [address] Aug, [facility] [id number] [place] [address] Aug, Cellulitis of finger of right hand L03.011 [facility] [id number] [place] [address] July, [facility] [id number] [place] [address] July, [facility] [id number] [place] [address] Jun, Onychomycosis B35.1 [facility] [id number] [place] [address] Jun, Severe major depression with psychotic features F32.3 and Posttraumatic stress disorder F43.10 [facility] [id number] [place] [address] Jun, [facility] [id number] [place] [address] Jun, [facility] [id number] [place] [address] Jun, [facility] [id number] [place] [address] May, Type 2 diabetes mellitus with diabetic polyneuropathy E11.42 [facility] [id number] [place] [address] May, Type 2 diabetes mellitus with diabetic polyneuropathy E11.42 and Urinary hesitancy R39.11 [facility] [id number] [place] [address] May, Type 2 diabetes mellitus with diabetic polyneuropathy E11.42 ; Left hip pain M25.552 and Benign prostatic hyperplasia with lower urinary tract symptoms, unspecified morphology N40.1 [facility] [id number] [place] [address] May, [facility] [id number] [place] [address] Apr, Severe major depression with psychotic features F32.3 and Posttraumatic stress disorder F43.10 [facility] [id number] [place] [address] Apr, [facility] [id number] [place] [address] Mar, [facility] [id number] [place] [address] Mar, Dysuria R30.0 and Urinary hesitancy R39.11 [facility] [id number] [place] [address] Mar, Onychomycosis B35.1 [facility] [id number] [place] [address] Mar, [facility] [id number] [place] [address] Feb, [facility] [id number] [place] [address] Jan, [facility] [id number] [place] [address] Jan, Posttraumatic stress disorder F43.10 and Severe major depression with psychotic features F32.3 [facility] [id number] [place] [address] Jan, [facility] [id number] [place] [address] Jan, Chronic pain syndrome G89.4 ; Type 2 diabetes mellitus with diabetic polyneuropathy E11.42 ; Decreased pedal pulses R09.89 and Paresthesia of both hands R20.2 [facility] [id number] [place] [address] Dec, Posttraumatic stress disorder F43.10 and Severe major depression with psychotic features F32.3 [facility] [id number] [place] [address] Dec, [facility] [id number] [place] [address] Dec, [facility] [id number] [place] [address] Dec, Onychomycosis B35.1 [facility] [id number] [place] [address] Dec, [facility] [id number] [place] [address] Dec, [facility] [id number] [place] [address] Nov, [facility] [id number] [place] [address] Oct, Depression, major, recurrent, moderate 296.32 and Posttraumatic stress disorder 309.81 [facility] [id number] [place] [address] Oct, [facility] [id number] [place] [address] Oct, [facility] [address] [place] [address] Oct, [facility] [id number] [place] [address] Sep, Posttraumatic stress disorder 309.81 and Depression, major, recurrent, moderate 296.32 [facility] [id number] [place] [address] Sep, [facility] [address] [address] Sep, Chronic airway obstruction, not elsewhere classified [address] [address] Sep, Onychomycosis 110.1 and DM neuro manif type II 250.[address] [address] Sep, Chronic pain 338.29 ; Chronic airway obstruction, not elsewhere classified 496 ; Osteoarthritis of knees, bilateral 715.96 and On potassium wasting diuretic therapy V58.69 [facility] [id number] [place] [address] Sep, Insect bites 919.4 ; Sinusitis 473.9 and GERD (gastroesophageal reflux disease) 530.81 [facility] [id number] [place] [address] Aug, Depression, major, recurrent, moderate 296.32 and Posttraumatic stress disorder 309.81 [facility] [id number] [place] [address] Aug, [facility] [id number] [place] [address] Aug, [facility] [id number] [place] [address] Aug, [facility] [id number] [place] [address] July, Major depressive disorder, recurrent episode, moderate 296.32 and Posttraumatic stress disorder 309.81 [facility] [place] [facility] [address] [id number] [place] [address] July, [facility] [place] [facility] [address] [id number] [place] [address] July, [facility] [place] [facility] [address] [facility] [id number] [place] [address] July, [facility] [place] [facility] [address] [id number] [place] [address] July, [facility] [place] [facility] [address] [id number] [place] [address] Jun, [facility] [place] [facility] [address] [id number] [place] [address] Jun, [facility] [place] [facility] [address] [facility] [id number] [place] [address] May, [facility] [place] [facility] [address] [id number] [place] [address] May, [facility] [place] [facility] [address] [facility] [id number] [place] [address] May, [facility] [place] [facility] [address] [facility] [id number] [place] [address] May, [facility] [place] [facility] [address] [facility] [id number] [place] [address] May, [facility] [place] [facility] [address] [facility] [id number] [place] [address] May, [facility] [place] [facility] [address] [id number] [place] [address] May, [facility] [place] [facility] [address] [id number] [place] [address] May, [facility] [place] [facility] [address] [facility] [id number] [address] May, [facility] [place] [facility] [address] [id number] [place] [address] Apr, 2014 [facility] [place] [facility] [address] [id number] [place] [address] Apr, 2014 [facility] [place] [facility] [address] [id number] [place] [address] Apr, 2014 [facility] [place] [facility] [address] [id number] [place] [address] Apr, 2014 [facility] [place] [facility] [address] [id number] [place] [address] Apr, 2014 [facility] [place] [facility] [address] [id number] [place] [address] Apr, 2014 [facility] [place] [facility] [address] [facility] [id number] [place] [address] Apr, [facility] [place] [facility] [address] [id number] [place] [address] Apr, 2014 [facility] [place] [facility] [address] [facility] [id number] [place] [address] Apr, [facility] [place] [facility] [address] [id number] [place] [address] Mar, [facility] [place] [facility] [address] [facility] [id number] [place] [address] Mar, [facility] [place] [facility] [address] [facility] [id number] [place] [address] Mar, [facility] [place] [facility] [address] [id number] [place] [address] Mar, [facility] [place] [facility] [address] [facility] [id number] [place] [address] Mar, [facility] [place] [facility] [address] [facility] [id number] [place] [address] Mar, [facility] [place] [facility] [address] [facility] [id number] [place] [address] Mar, [facility] [place] [facility] [address] [id number] [place] [address] 15 Mar, 2014 [facility] [place] [facility] [address] [id number] [place] [address] 15 Mar, 2014 [facility] [place] [facility] [address] [id number] [place] [address] 15 Mar, 2014 [facility] [place] [facility] [address] [id number] [place] [address] 14 Mar, 2014 [facility] [place] [facility] [address] [id number] [place] [address] 14 Mar, 2014 [facility] [place] [facility] [address] [id number] [place] [address] 14 Mar, 2014 [facility] [place] [facility] [address] [id number] [place] [address] 14 Mar, 2014 [facility] [place] [facility] [address] [id number] [place] [address] 14 Mar, 2014 [facility] [place] [facility] [address] [id number] [place] [address] 14 Mar, 2014 [facility] [place] [facility] [address] [id number] [place] [address] 09 Mar, 2014 [facility] [place] [facility] [address] [id number] [place] [address] 09 Mar, 2014 [facility] [place] [facility] [address] [id number] [place] [address] 16 Feb, 2014 [facility] [place] [facility] [address] [id number] [place] [address] 16 Feb, 2014 [facility] [place] [facility] [address] [id number] [place] [address] 15 Feb, 2014 [facility] [place] [facility] [address] [id number] [place] [address] 15 Feb, 2014 [facility] [place] [facility] [address] [id number] [place] [address] Feb, [facility] [place] [facility] [address] [id number] [place] [address] Feb, [facility] [place] [facility] [address] [id number] [place] [address] Jan, [facility] [place] [facility] [address] [id number] [place] [address] Jan, [facility] [place] [facility] [address] [id number] [place] [address] Jan, [facility] [place] [facility] [address] [id number] [place] [address] Jan, [facility] [place] [facility] [address] [id number] [place] [address] Jan, [facility] [place] [facility] [address] [id number] [place] [address] Jan, [facility] [place] [facility] [address] [id number] [place] [address] Jan, [facility] [place] [facility] [address] [id number] [place] [address] Jan, [facility] [place] [facility] [address] [facility] [id number] [place] [address] Jan, [facility] [place] [facility] [address] [id number] [place] [address] Jan, [facility] [place] [facility] [address] [id number] [place] [address] Dec, [facility] [place] [facility] [address] [id number] [place] [address] Dec, [facility] [place] [facility] [address] [id number] [place] [address] Dec, [facility] [place] [facility] [address] [id number] [place] [address] Dec, [facility] [place] [facility] [address] [id number] [place] [address] 16 Nov, 2013 [facility] [place] [facility] [address] [id number] [place] [address] 16 Nov, 2013 [facility] [place] [facility] [address] [id number] [place] [address] Nov, 2013 [facility] [place] [facility] [address] [id number] [place] [address] Nov, 2013 [facility] [place] [facility] [address] [id number] [place] [address] Nov, 2013 [facility] [place] [facility] [address] [id number] [place] [address] Nov, [facility] [place] [facility] [address] [id number] [place] [address] Oct, [facility] [place] [facility] [address] [id number] [place] [address] Oct, [facility] [place] [facility] [address] [id number] [place] [address] Oct, [facility] [place] [facility] [address] [id number] [place] [address] Oct, [facility] [place] [facility] [address] [id number] [place] [address] Sep, [facility] [place] [facility] [address] [id number] [place] [address] Sep, [facility] [place] [facility] [address] [id number] [place] [address] Sep, [facility] [place] [facility] [address] [id number] [place] [address] Sep, [facility] [place] [facility] [address] [id number] [place] [address] Sep, [facility] [place] [facility] [address] [id number] [place] [address] Sep, [facility] [place] [facility] [address] [id number] [place] [address] July, [facility] [place] [facility] [address] [id number] [place] [address] July, [facility] [place] [facility] [address] [id number] [place] [address] July, [facility] [place] [facility] [address] [id number] [place] [address] July, [facility] [place] [facility] [address] [id number] [place] [address] Jun, [facility] [place] [facility] [address] [id number] [place] [address] Jun, [facility] [place] [facility] [address] [id number] [place] [address] Jun, [facility] [place] [facility] [address] [id number] [place] [address] Jun, [facility] [place] [facility] [address] [id number] [place] [address] Jun, [facility] [place] [facility] [address] [id number] [place] [address] Jun, [facility] [place] [facility] [address] [id number] [place] [address] May, [facility] [place] [facility] [address] [id number] [place] [address] May, [facility] [place] [facility] [address] [id number] [place] [address] Apr, [facility] [place] [facility] [address] [id number] [place] [address] Apr, [facility] [place] [facility] [address] [id number] [place] [address] Apr, [facility] [place] [facility] [address] [id number] [place] [address] 27 Apr, 2013 [facility] [place] [facility] [address] [id number] [place] [address] Apr, [facility] [place] [facility] [address] [id number] [place] [address] Apr, [facility] [place] [facility] [address] [id number] [place] [address] Apr, [facility] [place] [facility] [address] [id number] [place] [address] Mar, [facility] [place] [facility] [address] [id number] [place] [address] Mar, [facility] [place] [facility] [address] [id number] [place] [address] Mar, [facility] [place] [facility] [address] [id number] [place] [address] Mar, [facility] [place] [facility] [address] [id number] [place] [address] Mar, [facility] [place] [facility] [address] [id number] [place] [address] Mar, [facility] [place] [facility] [address] [id number] [place] [address] Mar, [facility] [place] [facility] [address] [id number] [place] [address] Mar, [facility] [place] [facility] [address] [id number] [place] [address] Feb, [facility] [place] [facility] [address] [id number] [place] [address] Feb, [facility] [place] [facility] [address] [id number] [place] [address] Feb, [facility] [place] [facility] [address] [id number] [place] [address] Feb, [facility] [place] [facility] [address] [id number] [place] [address] Feb, [facility] [place] [facility] [address] [id number] [place] [address] Feb, [facility] [place] [facility] [address] [id number] [place] [address] Feb, [facility] [place] [facility] [address] [id number] [place] [address] Jan, [facility] [place] [facility] [address] [id number] [place] [address] Jan, [facility] [place] [facility] [address] [id number] [place] [address] Jan, [facility] [place] [facility] [address] [id number] [place] [address] Jan, [facility] [place] [facility] [address] [id number] [place] [address] Jan, [facility] [place] [facility] [address] [id number] [place] [address] Jan, [facility] [place] [facility] [id number] [id number] Jan, [facility] [place] [facility] [address] [id number] [id number] Jan, [facility] [place] [facility] [address] [id number] [place] [address] Dec, [facility] [place] [facility] [address] [id number] [place] [address] Dec, [facility] [place] [facility] [address] [id number] [place] [address] Dec, [facility] [place] [facility] [address] [id number] [place] [address] Dec, [facility] [place] [facility] [address] [id number] [place] [address] 31 Dec, 2012 [facility] [place] [facility] [address] [id number] [place] [address] Dec, [facility] [place] [facility] [address] [id number] [place] [address] Dec, [facility] [place] [facility] [address] [id number] [place] [address] Dec, [facility] [place] [facility] [address] [id number] [place] [address] 16 Dec, 2012 [facility] [place] [facility] [address] [id number] [place] [address] Dec, [facility] [place] [facility] [address] [id number] [place] [id number] 27 Nov, 2012 [facility] [place] [facility] [address] [id number] [place] [id number] 27 Nov, 2012 [facility] [place] [facility] [address] [id number] [place] [address] 24 Nov, 2012 [facility] [place] [facility] [address] [id number] [place] [address] 20 Nov, 2012 [facility] [place] [facility] [address] [id number] [place] [address] 19 Nov, 2012 [facility] [place] [facility] [address] [id number] [place] [address] 13 Nov, 2012 [facility] [place] [facility] [address] [id number] [place] [address] 10 Nov, 2012 [facility] [place] [facility] [address] [id number] [place] [address] 06 Nov, 2012 [facility] [place] [facility] [address] [id number] [place] [address] Oct, [facility] [place] [facility] [address] [id number] [place] [address] Oct, [facility] [place] [facility] [address] [id number] [place] [address] Oct, [facility] [address] [id number] [place] [address] Sep, [facility] [address] [id number] [place] [address] Sep, [facility] [address] [id number] [place] [address] Sep, [facility] [address] [id number] [place] [address] Sep, [facility] [address] [id number] [place] [address] Sep, [facility] [address] [id number] [place] [address] Aug, [facility] [address] [id number] [place] [address] Aug, [facility] [address] [id number] [place] [address] Aug, [facility] [address] [id number] [place] [address] Aug, [facility] [address] [id number] [place] [address] Aug, [facility] [address] [id number] [place] [address] Aug, [facility] [address] [id number] [place] [address] July, [facility] [place] [facility] [address] [id number] [place] [address] July, [facility] [address] [id number] [place] [address] July, [facility] [address] [id number] [place] [address] July, [facility] [address] [id number] [place] [address] July, [facility] [address] [id number] [place] [address] July, [facility] [address] [id number] [place] [address] Jun, [facility] [address] [id number] [place] [address] Jun, [facility] [address] [id number] [place] [address] Jun, [facility] [address] [id number] [place] [address] Jun, [facility] [address] [id number] [place] [address] May, [facility] [address] [id number] [place] [address] May, [facility] [address] [id number] [place] [address] May, [facility] [address] [id number] [place] [address] Apr, [facility] [address] [id number] [place] [address] Mar, [facility] [place] [facility] [address] [id number] [place] [address] Mar, [facility] [place] [facility] [address] [id number] [place] [address] 17 Mar, 2012 [facility] [place] [facility] [address] [id number] [place] [address] 16 Mar, 2012 [facility] [place] [facility] [address] [id number] [place] [address] 15 Mar, 2012 [facility] [place] [facility] [address] [id number] [place] [address] Feb, [facility] [place] [facility] [address] [id number] [place] [address] 31 Feb, 2012 [facility] [place] [facility] [address] [id number] [place] [address] Feb, [facility] [place] [facility] [address] [id number] [place] [address] Feb, [facility] [place] [facility] [address] [id number] [place] [address] Jan, [facility] [place] [facility] [address] [id number] [place] [address] Jan, [facility] [place] [facility] [address] [id number] [place] [address] Jan, [facility] [place] [facility] [address] [id number] [place] [address] Jan, [facility] [place] [facility] [address] [id number] [place] [address] Dec, [facility] [place] [facility] [address] [id number] [place] [address] Dec, [facility] [place] [facility] [address] [id number] [place] [address] Nov, [facility] [place] [facility] [address] [id number] [place] [address] Oct, [facility] [place] [facility] [address] [id number] [place] [address] Oct, [facility] [place] [facility] [address] [id number] [place] [address] Oct, [facility] [place] [facility] [address] [id number] [place] [address] Oct, [facility] [place] [facility] [address] [id number] [place] [address] Oct, [facility] [place] [facility] [address] [id number] [place] [address] Sep, [facility] [address] [id number] [place] [address] Sep, [facility] [address] [id number] [place] [address] Aug, [facility] [address] [place] [id number] Aug, [facility] [address] [id number] [place] [address] Aug, [facility] [address] [id number] [place] [address] July, [facility] [address] [id number] [place] [address] July, [facility] [address] [id number] [place] [address] Jun, [facility] [address] [id number] [place] [address] Jun, [facility] [address] [id number] [place] [address] Jun, [facility] [address] [id number] [place] [address] Jun, [facility] [address] [id number] [place] [address] 15 Apr, 2011 [facility] [address] [id number] [place] [address] 15 Apr, 2011 [facility] [address] [id number] [place] [address] Apr, [facility] [address] [id number] [place] [address] Mar, [facility] [address] [id number] [place] [address] Mar, [facility] [place] [facility] [address] [id number] [place] [address] Mar, [facility] [place] [facility] [address] [id number] [place] [address] Mar, [facility] [place] [facility] [address] [id number] [place] [address] Mar, [facility] [place] [facility] [address] [id number] [place] [address] Jan, [facility] [place] [facility] [address] [id number] [place] [address] Jan, [facility] [place] [facility] [address] [id number] [place] [address] Jan, [facility] [place] [facility] [address] [id number] [place] [address] Mar, [facility] [place] [facility] [address] [id number] [place] [address] Mar, [facility] [place] [facility] [address] [id number] [place] [address] Feb, [facility] [place] [facility] [address] [id number] [place] [address] Feb, [facility] [place] [facility] [address] [id number] [place] [address] Feb, [facility] [place] [facility] [address] [id number] [place] [address] Jan, [facility] [place] [facility] [address] [id number] [place] [address] Jan, [facility] [place] [facility] [address] [id number] [place] [address] Dec, [facility] [place] [facility] [address] [id number] [place] [address] Dec, [facility] [place] [facility] [address] [id number] [place] [address] 10 May, 2009 [facility] [address] [id number] [address] 10 Apr, 2009 [facility] [address] [id number] [address] Feb, [facility] [address] [id number] [address] Feb, [facility] [id number] [address] Jan, [facility] [id number] [address] Jan, [facility] [id number] [address] Jan, [facility] [id number] [address] Jan, [facility] [address] [id number] [address] Jan, IMMUNIZATIONS No Known Immunizations SOCIAL HISTORY Never Assessed REASON FOR VISIT Controlled Medication Refill PLAN OF CARE VITAL SIGNS MEDICATIONS Medication Instructions Dosage Frequency Start Date End Date Duration Status Hydrocodone-Acetaminophen 5-325 MG Orally every 6 hrs 1 tablet as needed 6h Sep, 28 days Active MS Contin 30 MG Orally every 12 hrs 1 tablet 12h Sep, 28 days Active RESULTS No Results PROCEDURES No Known [...]
[2018-10-04] MEDS: LACTATED RINGERS 1,000 ML IV PRN ×2 (06:36→08:36)
--- OUTSIDE RECORDS SUMMARY | 2018-10-04 06:36 | XMS REPORT ---
Author Author DELILAH FEDERICO Organization [facility] Address [address] [place] [address] Care Team Providers Care Weight Caller Name Role Phone AGUILARFEDERICO ADHIKARI Unavailable PROBLEMS Type Condition ICD9-CM Code MXU41-MN Code Onset Dates Condition Status SNOMED Code Problem Primary osteoarthritis of both knees M17.0 Active 218356079 Problem Nocturnal hypoxia G47.34 Active 902912198 Problem Chronic prescription opiate use Z79.891 Active 294731516 Problem Pure hypercholesterolemia E78.0 Active 816913696 Problem Acute right-sided low back pain with right-sided sciatica M54.41 Active 72082496 Problem Type 2 diabetes mellitus with diabetic polyneuropathy E11.42 Active 676967139 Problem Severe major depression with psychotic features F32.3 Active 49900509 Problem Obesity, morbid, BMI 40.0-49.9 E66.01 Active 863761115 Problem Posttraumatic stress disorder F43.10 Active 94480172 Problem Primary insomnia F51.01 Active 5288427 Problem Mood disorder F39 Active 70123469 Problem History of DVT (deep vein thrombosis) Z86.718 Active 170344157 Problem Chronic pain syndrome G89.4 Active 036285364 Problem Chronic systolic (congestive) heart failure I50.22 Active 230060813 Problem Macrocytosis D75.89 Active 463102232 Problem Tobacco abuse Z72.0 Active 600498396 Problem Mild episode of recurrent major depressive disorder F33.0 Active 860164424 Problem BMI 45.0-49.9, adult Z68.42 Active 264908334 Problem Gastroesophageal reflux disease, esophagitis presence not specified K21.9 Active 444697554 Problem Non-ischemic cardiomyopathy I42.9 Active 75112586 Problem Essential hypertension I10 Active 25431342 Problem Major depressive disorder, recurrent episode, unspecified severity F33.9 Active 04878304 Problem PTSD (post-traumatic stress disorder) F43.10 Active 26732885 Problem MITCHELL treated with BiPAP G47.33 Active 54368753 Problem Chronic obstructive pulmonary disease, unspecified COPD type J44.9 Active 53783155 Problem History of weight loss surgery Z98.84 Active 089804421 ALLERGIES No Information ENCOUNTERS Encounter Location Date Diagnosis [facility] [id number] [place] [address] Nov, [facility] [id number] [place] [address] Nov, [facility] [address] [address] Oct, BMI 45.0-49.9, adult Z68.42 ; Type 2 diabetes mellitus with diabetic polyneuropathy E11.42 ; Chronic pain syndrome G89.4 ; Gastroesophageal reflux disease, esophagitis presence not specified K21.9 ; Decreased pedal pulses R09.89 and Precordial pain R07.2 [facility] [id number] [place] [address] Oct, [facility] [id number] [place] [address] Oct, Mood disorder F39 [facility] [address] [address] Oct, Mood disorder F39 ; Posttraumatic stress disorder F43.10 and BMI 45.0-49.9, adult Z68.42 [facility] [id number] [place] [address] Sep, Primary osteoarthritis of both knees M17.0 and Chronic pain syndrome G89.4 [facility] [id number] [place] [address] Sep, Mood disorder F39 and Posttraumatic stress disorder F43.10 [facility] [id number] [place] [address] Aug, Primary osteoarthritis of both knees M17.0 and Chronic pain syndrome G89.4 [facility] [id number] [place] [address] July, Primary osteoarthritis of both knees M17.0 and Chronic pain syndrome G89.4 [facility] [id number] [place] [address] July, Type 2 diabetes mellitus with diabetic polyneuropathy E11.42 ; Essential hypertension I10 ; Pure hypercholesterolemia E78.0 ; Chronic prescription opiate use Z79.891 ; Tobacco abuse Z72.0 ; Primary osteoarthritis of both knees M17.0 ; Primary insomnia F51.01 and BMI 45.0-49.9, adult Z68.42 [facility] [id number] [place] [address] 08 Jul, 2017 Medicare annual wellness visit, [...] specified K21.9 and Encounter for immunization Z23 [facility] [address] [address] July, Primary osteoarthritis of both knees M17.0 and Chronic pain syndrome G89.4 [facility] [address] [place] [address] Jun, Infection of right ear H66.91 ; Wheezing on auscultation R06.2 and BMI 45.0-49.9, adult Z68.42 [facility] [address] [place] [address] Jun, [facility] [address] [address] Jun, Primary osteoarthritis of both knees M17.0 and Chronic pain syndrome G89.4 [facility] [id number] [place] [address] May, [facility] [address] [place] [address] May, BMI 45.0-49.9, adult Z68.42 ; Mood disorder F39 and Posttraumatic stress disorder F43.10 [facility] [address] [place] [address] May, [facility] [id number] [place] [address] May, Primary osteoarthritis of both knees M17.0 and Chronic pain syndrome G89.4 [facility] [id number] [place] [address] May, Mood disorder F39 [facility] [id number] [place] [address] Apr, Type 2 diabetes mellitus with diabetic polyneuropathy E11.42 [facility] [id number] [place] [address] Apr, [facility] [address] [place] [address] Apr, Primary osteoarthritis of both knees M17.0 and Chronic pain syndrome G89.4 [facility] [address] [place] [address] Apr, Mood disorder F39 [facility] [address] [place] [address] Mar, Mood disorder F39 and Posttraumatic stress disorder F43.10 [facility] [address] [place] [address] Mar, Primary osteoarthritis of both knees M17.0 and Chronic pain syndrome G89.4 [facility] [address] [place] [address] Feb, Primary osteoarthritis of both knees M17.0 and Chronic pain syndrome G89.4 [facility] [id number] [place] [address] Feb, Mood disorder F39 [facility] [id number] [place] [address] Jan, Type 2 diabetes mellitus with diabetic polyneuropathy E11.42 ; Primary osteoarthritis of both knees M17.0 ; Mood disorder F39 ; Obesity, morbid, BMI 40.0-49.9 E66.01 ; Chronic prescription opiate use Z79.891 ; Acute suppurative otitis media of both ears without spontaneous rupture of tympanic membranes, recurrence not specified H66.003 and BMI 45.0-49.9, adult Z68.42 [facility] [address] [address] Jan, Primary osteoarthritis of both knees M17.0 and Chronic pain syndrome G89.4 [facility] [id number] [place] [address] Dec, Mood disorder F39 and Posttraumatic stress disorder F43.10 [facility] [address] [address] Dec, Primary osteoarthritis of both knees M17.0 and Chronic pain syndrome G89.4 [facility] [id number] [place] [address] 18 Nov, 2016 Chronic pain syndrome G89.4 [facility] [id number] [place] [address] 15 Nov, 2016 Primary osteoarthritis of both knees M17.0 and Chronic pain syndrome G89.4 [facility] [id number] [place] [address] 13 Nov, 2016 Type 2 diabetes mellitus with diabetic polyneuropathy E11.42 and Chronic pain syndrome G89.4 [facility] [id number] [place] [address] 12 Nov, 2016 Posttraumatic stress disorder F43.10 and Mood disorder F39 [facility] [id number] [place] [address] Oct, Chronic pain syndrome G89.4 [facility] [address] [place] [address] Oct, Type 2 diabetes mellitus with diabetic polyneuropathy E11.42 ; BMI 45.0-49.9, adult Z68.42 ; Primary osteoarthritis of both knees M17.0 and Skin lesion L98.9 [facility] [id number] [place] [address] Oct, Chronic pain syndrome G89.4 [facility] [address] [place] [address] Sep, Chronic pain syndrome G89.4 [facility] [id number] [place] [address] Sep, [facility] [id number] [place] [address] Sep, Chronic pain syndrome G89.4 [facility] [address] [place] [address] Aug, Chronic pain syndrome G89.4 [facility] [id number] [place] [address] Aug, [facility] [id number] [place] [address] Aug, Macrocytosis D75.89 and Pure hypercholesterolemia E78.0 [facility] [address] [place] [address] Aug, Pure hypercholesterolemia E78.0 [facility] [address] [place] [address] Aug, Macrocytosis D75.89 [facility] [address] [place] [address] Aug, Pure hypercholesterolemia E78.0 ; Type 2 diabetes mellitus with diabetic polyneuropathy E11.42 ; MITCHELL treated with BiPAP G47.33 and Chronic pain syndrome G89.4 [facility] [id number] [address] Aug, [facility] [id number] [place] [address] Aug, Hemorrhoids, unspecified hemorrhoid type K64.9 [facility] [id number] [place] [address] Aug, Chronic pain syndrome G89.4 ; Type 2 diabetes mellitus with diabetic polyneuropathy E11.42 ; Hemorrhoids, unspecified hemorrhoid type K64.9 ; Tobacco abuse Z72.0 and Primary osteoarthritis of both knees M17.0 [facility] [id number] [place] [address] July, Chronic pain syndrome G89.4 [facility] [id number] [place] [address] July, [facility] [id number] [place] [address] Jun, Chronic pain syndrome G89.4 [facility] [id number] [place] [address] Jun, Chronic pain syndrome G89.4 [facility] [id number] [place] [address] Jun, Severe major depression with psychotic features F32.3 and Posttraumatic stress disorder F43.10 [facility] [address] [place] [address] Jun, Chronic pain syndrome G89.4 [facility] [id number] [place] [address] Jun, [facility] [id number] [place] [address] May, Chronic pain syndrome G89.4 [facility] [id number] [place] [address] May, Tobacco abuse Z72.0 [facility] [address], [place] [address] May, [facility] [id number] [place] [address] Apr, Chronic pain syndrome G89.4 [facility] [address] [place] [address] Apr, [facility] [id number] [place] [address] Apr, Right foot pain M79.671 [facility] [id number] [place] [address] Mar, Type 2 diabetes mellitus with diabetic polyneuropathy E11.42 ; MITCHELL treated with BiPAP G47.33 ; Pure hypercholesterolemia E78.0 ; Chronic pain syndrome G89.4 ; Tobacco abuse Z72.0 and Obesity, morbid, BMI 40.0-49.9 E66.01 [facility] [address] [place] [address] Mar, [facility] [id number] [place] [address] Mar, [facility] [id number] [place] [address] Mar, [facility] [address] [place] [address] Mar, [facility] [address] [place] [address] Mar, [facility] [id number] [place] [address] Mar, Severe major depression with psychotic features F32.3 and Posttraumatic stress disorder F43.10 [facility] [address], [place] [address] Mar, [facility] [id number] [place] [address] Feb, [facility] [id number] [place] [address] Feb, [facility] [id number] [place] [address] Jan, [facility] [id number] [place] [address] Jan, [facility] [id number] [place] [address] Dec, Posttraumatic stress disorder F43.10 and Severe major depression with psychotic features F32.3 [facility] [id number] [place] [address] Dec, Type 2 diabetes mellitus with diabetic polyneuropathy E11.42 ; Chronic pain syndrome G89.4 and Acute right-sided low back pain with right-sided sciatica M54.41 [facility] [id number] [place] [address] Dec, [facility] [id number] [place] [address] Dec, [facility] [id number] [place] [address] Nov, [facility] [address] [place] [address] Nov, [facility] [id number] [place] [address] Nov, [facility] [id number] [place] [address] Oct, [facility] [id number] [place] [address] Oct, [facility] [address] [place] [address] Sep, Dental examination Z01.20 [facility] [id number] [place] [address] Sep, [facility] [id number] [place] [address] Sep, Type 2 diabetes mellitus with diabetic polyneuropathy E11.42 ; Chronic pain syndrome G89.4 ; Chronic prescription opiate use Z79.891 ; Injury of right index finger, sequela S69.91XS and Anejaculation N50.8 [facility] [id number] [place] [address] Aug, [facility] [id number] [place] [address] Aug, [facility] [id number] [place] [address] Aug, Cellulitis of finger of right hand L03.011 [facility] [id number] [place] [address] July, [facility] [id number] [place] [address] July, [facility] [id number] [place] [address] Jun, Onychomycosis B35.1 [facility] [id number] [place] [address] Jun, Severe major depression with psychotic features F32.3 and Posttraumatic stress disorder F43.10 [facility] [id number] [place] [address] Jun, [facility] [id number] [place] [address] Jun, [facility] [id number] [place] [address] Jun, [facility] [id number] [place] [address] May, Type 2 diabetes mellitus with diabetic polyneuropathy E11.42 [facility] [id number] [place] [address] May, Type 2 diabetes mellitus with diabetic polyneuropathy E11.42 and Urinary hesitancy R39.11 [facility] [id number] [place] [address] May, Type 2 diabetes mellitus with diabetic polyneuropathy E11.42 ; Left hip pain M25.552 and Benign prostatic hyperplasia with lower urinary tract symptoms, unspecified morphology N40.1 [facility] [id number] [place] [address] May, [facility] [id number] [place] [address] Apr, Severe major depression with psychotic features F32.3 and Posttraumatic stress disorder F43.10 [facility] [id number] [place] [address] Apr, [facility] [id number] [place] [address] Mar, [facility] [id number] [place] [address] Mar, Dysuria R30.0 and Urinary hesitancy R39.11 [facility] [id number] [place] [address] Mar, Onychomycosis B35.1 [facility] [id number] [place] [address] Mar, [facility] [id number] [place] [address] Feb, [facility] [id number] [place] [address] Jan, [facility] [id number] [place] [address] Jan, Posttraumatic stress disorder F43.10 and Severe major depression with psychotic features F32.3 [facility] [id number] [place] [address] Jan, [facility] [id number] [place] [address] Jan, Chronic pain syndrome G89.4 ; Type 2 diabetes mellitus with diabetic polyneuropathy E11.42 ; Decreased pedal pulses R09.89 and Paresthesia of both hands R20.2 [facility] [id number] [place] [address] Dec, Posttraumatic stress disorder F43.10 and Severe major depression with psychotic features F32.3 [facility] [id number] [place] [address] Dec, [facility] [id number] [place] [address] Dec, [facility] [id number] [place] [address] Dec, Onychomycosis B35.1 [facility] [id number] [place] [address] Dec, [facility] [id number] [place] [address] Dec, [facility] [id number] [place] [address] Nov, [facility] [address] [place] [address] Oct, Depression, major, recurrent, moderate 296.32 and Posttraumatic stress disorder 309.81 [facility] [id number] [place] [address] Oct, [facility] [address] [place] [address] Oct, [facility] [id number] [address] Oct, [facility] [id number] [place] [address] Sep, Posttraumatic stress disorder 309.81 and Depression, major, recurrent, moderate 296.32 [facility] [id number] [place] [address] Sep, [facility] [address] [address] Sep, Chronic airway obstruction, not elsewhere classified [address] [address] Sep, Onychomycosis 110.1 and DM neuro manif type II 250.[address] [id number] [place] [address] Sep, Chronic pain 338.29 ; Chronic airway obstruction, not elsewhere classified 496 ; Osteoarthritis of knees, bilateral 715.96 and On potassium wasting diuretic therapy V58.69 [facility] [id number] [place] [address] Sep, Insect bites 919.4 ; Sinusitis 473.9 and GERD (gastroesophageal reflux disease) 530.81 [facility] [id number] [place] [address] Aug, Depression, major, recurrent, moderate 296.32 and Posttraumatic stress disorder 309.81 [facility] [id number] [place] [address] Aug, [place] [id number] [place] [address] Aug, [place] [id number] [place] [address] Aug, [place] [id number] [place] [address] July, Major depressive disorder, recurrent episode, moderate 296.32 and Posttraumatic stress disorder 309.81 [facility] [address] [id number] [place] [address] July, [facility] [place] [facility] [address] [id number] [place] [address] July, [facility] [address] [facility] [id number] [place] [address] July, [facility] [place] [facility] [address] [id number], [place] [address] July, [facility] [address] [id number] [place] [address] Jun, [facility] [place] [facility] [address] [facility] [id number] [place] [address] Jun, [facility] [address] [facility] [id number] [place] [address] May, [facility] [place] [facility] [address] [facility] [id number], [place] [address] May, [facility] [place] [facility] [address] [facility] [id number], [place] [address] May, [facility] [place] [facility] [address] [facility] [id number], [place] [address] May, [facility] [place] [facility] [address] [facility] [id number], [place] [address] May, [facility] [place] [facility] [address] [id number], [place] [address] May, [facility] [place] [facility] [address] [facility] [id number], [place] [address] May, [facility] [place] [facility] [address] [facility] [id number], [place] [address] May, [facility] [place] [facility] [address] [facility] [id number], [place] [address] May, [facility] [place] [facility] [address] [facility] [id number] [place] [address] Apr, 2014 [facility] [place] [facility] [address] [id number] [place] [address] Apr, 2014 [facility] [place] [facility] [address] [id number] [place] [address] Apr, 2014 [facility] [place] [facility] [address] [id number] [place] [address] Apr, 2014 [facility] [place] [facility] [address] [id number] [place] [address] Apr, 2014 [facility] [place] [facility] [address] [id number] [place] [address] Apr, 2014 [facility] [place] [facility] [address] [facility] [id number] [place] [address] Apr, 2014 [facility] [place] [facility] [address] [facility] [id number] [place] [address] Apr, 2014 [facility] [place] [facility] [address] [id number] [place] [address] Apr, [facility] [place] [facility] [address] [facility] [id number] [place] [address] Mar, [facility] [place] [facility] [address] [facility] [id number] [place] [address] Mar, [facility] [place] [facility] [address] [facility] [id number] [place] [address] Mar, [facility] [place] [facility] [address] [id number] [place] [address] Mar, [facility] [place] [facility] [address] [id number] [place] [address] Mar, [facility] [place] [facility] [address] [facility] [id number] [place] [address] Mar, [facility] [place] [facility] [address] [id number], [place] [address] 15 Mar, 2014 [facility] [place] [facility] [address] [id number] [place] [address] 15 Mar, 2014 [facility] [place] [facility] [address] [id number] [place] [address] 15 Mar, 2014 [facility] [place] [facility] [address] [id number] [place] [address] 15 Mar, 2014 [facility] [place] [facility] [address] [id number] [place] [address] 14 Mar, 2014 [facility] [place] [facility] [address] [id number] [place] [address] 14 Mar, 2014 [facility] [place] [facility] [address] [id number] [place] [address] 14 Mar, 2014 [facility] [place] [facility] [address] [id number] [place] [address] 14 Mar, 2014 [facility] [place] [facility] [address] [id number], [place] [address] 14 Mar, 2014 [facility] [place] [facility] [address] [id number] [place] [address] 14 Mar, 2014 [facility] [place] [facility] [address] [id number] [place] [address] 09 Mar, 2014 [facility] [place] [facility] [address] [id number], [place] [address] 09 Mar, 2014 [facility] [place] [facility] [address] [id number], [place] [address] 16 Feb, 2014 [facility] [place] [facility] [address] [id number] [place] [address] 16 Feb, 2014 [facility] [place] [facility] [address] [id number], [place] [address] 15 Feb, 2014 [facility] [place] [facility] [address] [id number], [place] [address] 15 Feb, 2014 [facility] [place] [facility] [address] [id number] [place] [address] Feb, [facility] [place] [facility] [address] [id number] [place] [address] Feb, [facility] [place] [facility] [address] [id number] [place] [address] Jan, [facility] [place] [facility] [address] [id number] [place] [address] Jan, [facility] [place] [facility] [address] [id number] [place] [address] Jan, [facility] [place] [facility] [address] [id number] [place] [address] Jan, [facility] [place] [facility] [address] [id number] [place] [address] Jan, [facility] [place] [facility] [address] [id number] [place] [address] Jan, [facility] [place] [facility] [address] [id number] [place] [address] Jan, [facility] [place] [facility] [address] [id number] [place] [address] Jan, [facility] [place] [facility] [address] [facility] [id number] [place] [address] Jan, [facility] [place] [facility] [address] [id number] [place] [address] Jan, [facility] [place] [facility] [address] [id number], [place] [address] Dec, [facility] [place] [facility] [address] [id number] [place] [address] Dec, [facility] [place] [facility] [address] [id number] [place] [address] Dec, [facility] [place] [facility] [address] [id number] [place] [address] Dec, [facility] [place] [facility] [address] [id number] [place] [address] Nov, 2013 [facility] [place] [facility] [address] [id number] [place] [address] Nov, [facility] [place] [facility] [address] [id number] [place] [address] Nov, 2013 [facility] [place] [facility] [address] [id number] [place] [address] Nov, 2013 [facility] [place] [facility] [address] [id number] [place] [address] Nov, 2013 [facility] [place] [facility] [address] [id number] [place] [address] Nov, [facility] [place] [facility] [address] [id number] [place] [address] Oct, [facility] [place] [facility] [address] [id number] [place] [address] Oct, [facility] [place] [facility] [address] [id number] [place] [address] Oct, [facility] [place] [facility] [address] [id number] [place] [address] Oct, [facility] [place] [facility] [address] [id number] [place] [address] Sep, [facility] [place] [facility] [address] [id number] [place] [address] Sep, [facility] [place] [facility] [address] [id number] [place] [address] Sep, [facility] [place] [facility] [address] [id number] [place] [address] Sep, [facility] [place] [facility] [address] [id number] [place] [address] Sep, [facility] [place] [facility] [address] [id number], [place] [address] Sep, [facility] [place] [facility] [address] [id number] [place] [address] July, [facility] [place] [facility] [address] [id number] [place] [address] July, [facility] [place] [facility] [address] [id number] [place] [address] July, [facility] [place] [facility] [address] [id number] [place] [address] July, [facility] [place] [facility] [address] [id number] [place] [address] Jun, [facility] [place] [facility] [address] [id number] [place] [address] Jun, [facility] [place] [facility] [address] [id number] [place] [address] Jun, [facility] [place] [facility] [address] [id number] [place] [address] Jun, [facility] [place] [facility] [address] [id number] [place] [address] Jun, [facility] [place] [facility] [address] [id number] [place] [address] Jun, [facility] [place] [facility] [address] [id number] [place] [address] May, [facility] [place] [facility] [address] [id number] [place] [address] May, [facility] [place] [facility] [address] [id number] [place] [address] Apr, [facility] [place] [facility] [address] [id number] [place] [address] Apr, [facility] [place] [facility] [address] [id number] [place] [address] Apr, [facility] [place] [facility] [address] [id number] [place] [address] Apr, [facility] [place] [facility] [address] [id number] [place] [address] Apr, [facility] [place] [facility] [address] [id number] [place] [address] Apr, [facility] [place] [facility] [address] [id number] [place] [address] Apr, [facility] [place] [facility] [address] [id number] [place] [address] Mar, [facility] [place] [facility] [address] [id number] [place] [address] Mar, [facility] [place] [facility] [address] [id number] [place] [address] Mar, [facility] [place] [facility] [address] [id number] [place] [address] Mar, [facility] [place] [facility] [address] [id number] [place] [address] Mar, [facility] [place] [facility] [address] [id number] [place] [address] Mar, [facility] [place] [facility] [address] [id number] [place] [address] Mar, [facility] [place] [facility] [address] [id number] [place] [address] Mar, [facility] [place] [facility] [address] [id number] [place] [address] Feb, [facility] [place] [facility] [address] [id number] [place] [address] Feb, [facility] [place] [facility] [address] [id number] [place] [address] Feb, [facility] [place] [facility] [address] [id number], [place] [address] Feb, [facility] [place] [facility] [address] [id number] [place] [address] Feb, [facility] [place] [facility] [address] [id number], [place] [address] Feb, [facility] [place] [facility] [address] [id number], [place] [address] Feb, [facility] [place] [facility] [address] [id number], [place] [address] Jan, [facility] [place] [facility] [address] [id number] [place] [address] Jan, [facility] [place] [facility] [address] [id number], [place] [address] Jan, [facility] [place] [facility] [address] [id number], [place] [address] Jan, [facility] [place] [facility] [address] [id number], [place] [address] Jan, [facility] [place] [facility] [address] [id number], [place] [address] Jan, [facility] [place] [facility] [address] [id number] [id number] Jan, [facility] [place] [facility] [address] [id number][place] [id number] Jan, [facility] [place] [facility] [address] [id number], [place] [address] Dec, [facility] [place] [facility] [address] [id number], [place] [address] Dec, [facility] [place] [facility] [address] [id number], [place] [address] Dec, [facility] [place] [facility] [address] [id number], [place] [address] Dec, [facility] [place] [facility] [address] [id number] [place] [address] 31 Dec, 2012 [facility] [place] [facility] [address] [id number] [place] [address] Dec, [facility] [place] [facility] [address] [id number] [place] [address] Dec, [facility] [place] [facility] [address] [id number] [place] [address] Dec, [facility] [place] [facility] [address] [id number] [place] [address] 16 Dec, 2012 [facility] [place] [facility] [address] [id number] [place] [address] Dec, [facility] [place] [facility] [address] [id number] [place] [id number] 27 Nov, 2012 [facility] [place] [facility] [address] [id number] [place] [id number] 27 Nov, 2012 [facility] [place] [facility] [address] [id number] [place] [address] 24 Nov, 2012 [facility] [place] [facility] [address] [id number] [place] [address] 20 Nov, 2012 [facility] [place] [facility] [address] [id number] [place] [address] 19 Nov, 2012 [facility] [place] [facility] [address] [id number] [place] [address] 13 Nov, 2012 [facility] [place] [facility] [address] [id number], [place] [address] 10 Nov, 2012 [facility] [place] [facility] [address] [id number] [place] [address] 06 Nov, 2012 [facility] [place] [facility] [address] [id number] [place] [address] Oct, [facility] [place] [facility] [address] [id number] [place] [address] Oct, [facility] [place] [facility] [address] [id number] [place] [address] Oct, [facility] [place] [facility] [address] [id number] [place] [address] Sep, [facility] [place] [facility] [address] [id number] [place] [address] Sep, [facility] [place] [facility] [address] [id number] [place] [address] Sep, [facility] [place] [facility] [address] [id number] [place] [address] Sep, [facility] [place] [facility] [address] [id number] [place] [address] Sep, [facility] [place] [facility] [address] [id number] [place] [address] Aug, [facility] [place] [facility] [address] [id number] [place] [address] Aug, [facility] [place] [facility] [address] [id number] [place] [address] Aug, [facility] [place] [facility] [address] [id number] [place] [address] Aug, [facility] [place] [facility] [address] [id number] [place] [address] Aug, [facility] [place] [facility] [address] [id number] [place] [address] Aug, [facility] [place] [facility] [address] [id number] [place] [address] July, [facility] [place] [facility] [address] [id number] [place] [address] July, [facility] [place] [facility] [address] [id number] [place] [address] July, [facility] [place] [facility] [address] [id number] [place] [address] July, [facility] [address] [id number] [place] [address] July, [facility] [address] [id number] [place] [address] July, [facility] [address] [id number] [place] [address] Jun, [facility] [address] [id number] [place] [address] Jun, [facility] [address] [id number] [place] [address] Jun, [facility] [address] [id number] [place] [address] Jun, [facility] [address] [id number] [place] [address] May, [facility] [address] [id number], [place] [address] May, [facility] [address] [id number] [place] [address] May, [facility] [address] [id number] [place] [address] Apr, [facility] [address] [id number], [place] [address] Mar, [facility] [place] [facility] [address] [id number], [place] [address] Mar, [facility] [place] [facility] [address] [id number] [place] [address] Mar, [facility] [place] [facility] [address] [id number], [place] [address] 16 Mar, 2012 [facility] [place] [facility] [address] [id number], [place] [address] 15 Mar, 2012 [facility] [place] [facility] [address] [id number] [place] [address] Feb, [facility] [place] [facility] [address] [id number] [place] [address] Feb, [facility] [place] [facility] [address] [id number] [place] [address] Feb, [facility] [place] [facility] [address] [id number] [place] [address] Feb, [facility] [place] [facility] [address] [id number] [place] [address] Jan, [facility] [place] [facility] [address] [id number] [place] [address] Jan, [facility] [place] [facility] [address] [id number] [place] [address] Jan, [facility] [place] [facility] [address] [id number] [place] [address] Jan, [facility] [place] [facility] [address] [id number] [place] [address] Dec, [facility] [place] [facility] [address] [id number] [place] [address] Dec, [facility] [place] [facility] [address] [id number] [place] [address] Nov, [facility] [place] [facility] [address] [id number] [place] [address] Oct, [facility] [place] [facility] [address] [id number] [place] [address] Oct, [facility] [place] [facility] [address] [id number] [place] [address] Oct, [facility] [place] [facility] [address] [id number] [place] [address] Oct, [facility] [place] [facility] [address] [id number] [place] [address] Oct, [facility] [address] [id number] [place] [address] Sep, [facility] [address] [id number] [place] [address] Sep, [facility] [address] [id number] [place] [address] Aug, [facility] [address] [place] [id number] Aug, [facility] [address] [id number] [place] [address] Aug, [facility] [address] [id number] [place] [address] July, [facility] [address] [id number] [place] [address] July, [facility] [address] [id number] [place] [address] Jun, [facility] [address] [id number] [place] [address] Jun, [facility] [address] [id number] [place] [address] Jun, [facility] [address] [id number] [place] [address] Jun, [facility] [address] [id number] [place] [address] 15 Apr, 2011 [facility] [address] [id number] [place] [address] Apr, [facility] [address] [id number] [place] [address] Apr, [facility] [address] [id number] [place] [address] Mar, [facility] [address] [id number] [place] [address] Mar, [facility] [place] [facility] [address] [id number] [place] [address] Mar, [facility] [place] [facility] [address] [id number] [place] [address] Mar, [facility] [place] [facility] [address] [id number] [place] [address] Mar, [facility] [place] [facility] [address] [id number] [place] [address] Jan, [facility] [place] [facility] [address] [id number] [place] [address] Jan, [facility] [place] [facility] [address] [id number] [place] [address] Jan, [facility] [place] [facility] [address] [id number] [place] [address] Mar, [facility] [place] [facility] [address] [id number] [place] [address] Mar, [facility] [place] [facility] [address] [id number] [place] [address] Feb, [facility] [place] [facility] [address] [id number], [place] [address] Feb, [facility] [place] [facility] [address] [id number], [place] [address] Feb, [facility] [place] [facility] [address] [id number], [place] [address] Jan, [facility] [place] [facility] [address] [id number] [place] [address] Jan, [facility] [place] [facility] [address] [id number], [place] [address] Dec, [facility] [place] [facility] [address] [id number], [place] [address] Dec, [facility] [place] [facility] [address] [id number], [place] [address] May, [facility] [id number], [place] [address] Apr, [facility] [id number], [place] [address] Feb, [facility] [id number], [place] [address] Feb, [facility] [id number], [place] [address] Jan, [facility] [id number], [place] [address] Jan, [facility] [id number], [place] [address] Jan, [facility] [id number], [place] [address] Jan, [facility] [address] [id number], [place] [address] Jan, IMMUNIZATIONS No Known Immunizations SOCIAL HISTORY Never Assessed REASON FOR VISIT f/u PLAN OF CARE Activity Details Follow Up 2 Weeks Reason: VITAL SIGNS MEDICATIONS Medication Instructions Dosage Frequency Start Date End Date Duration Status Insulin Syringe 31G X 5/16 subcutaneously Once a day as directed 24h Aug, Active MS Contin 30 MG Orally every 12 hrs 1 tablet 12h Aug, 28 days Active Trazodone HCl 150 MG Orally Once a day 1 tablet at bedtime 24h July, 90 days Active Gabapentin 600 MG TAKE TWO TABLETS BY MOUTH THREE TIMES DAILY 30 Active Clickfine Pen [place] 31 gauge ONE - DAILY E11.42 100 Active Prozac 40 MG Orally Once a day 1 capsule 24h Active Pen [place] 31G X 6 MM as directed 24h May, Active Invega 6 MG Orally Once a day 2 tablets 24h 30 Active Metformin HCl 500 MG TAKE ONE TABLET BY MOUTH TWICE DAILY WITH MEALS 90 Active Pantoprazole Sodium 40 MG TAKE ONE TABLET BY MOUTH ONCE DAILY 30 Active Prozac 10 MG Orally Once a day 1 capsule in the morning 24h Jun, Active Ibuprofen 800 MG TAKE ONE TABLET BY MOUTH THREE TIMES DAILY NEEDED 90 days Active Ventolin HFA 108 (90 Base) MCG/ACT Inhalation every 4 hrs 2 puffs as needed 4h Mar, Active Victoza 18 MG/3ML Subcutaneous Once a day 1.2 mg 24h Aug, 30 days Active HydrOXYzine Pamoate 50 MG TAKE ONE TO TWO CAPSULES BY MOUTH THREE TIMES DAILY NEEDED FOR ANXIETY AND SLEEP Active Cyclobenzaprine HCl 10 MG TAKE ONE TABLET BY MOUTH THREE TIMES DAILY NEEDED 10 Active Atorvastatin Calcium 40 MG TAKE ONE TABLET BY MOUTH ONCE DAILY. DUE FOR FASTING LABS Active Pataday 0.2 % Ophthalmic 2 times a day 1 drop to affected eyes 12h Mar, Active Hydrocodone-Acetaminophen 5-325 MG Orally every 6 hrs 1 tablet as needed 6h Aug, 28 days Active RESULTS No Results PROCEDURES Procedure Date Ordered Result Body Site [facility] VISIT ESTABLISHED PATIENT September 29, 2017 INSTRUCTIONS MEDICATIONS ADMINISTERED No Known Medications [...]
--- OUTSIDE RECORDS SUMMARY | 2018-10-04 06:37 | XMS REPORT ---
Author Author KATHY ESTHER [facility] Address [address] [place] [address] Care Team Providers Care Librarian Helper Name Role Phone KATHYBRIAN VILLEGASY Unavailable PROBLEMS Type Condition ICD9-CM Code SOR85-QF Code Onset Dates Condition Status SNOMED Code Problem Primary osteoarthritis of both knees M17.0 Active 956824479 Problem Nocturnal hypoxia G47.34 Active 001504112 Problem Chronic prescription opiate use Z79.891 Active 695348176 Problem Pure hypercholesterolemia E78.0 Active 083015947 Problem Acute right-sided low back pain with right-sided sciatica M54.41 Active 66315839 Problem Type 2 diabetes mellitus with diabetic polyneuropathy E11.42 Active 237030365 Problem Severe major depression with psychotic features F32.3 Active 20556999 Problem Obesity, morbid, BMI 40.0-49.9 E66.01 Active 044678796 Problem Posttraumatic stress disorder F43.10 Active 06210323 Problem Primary insomnia F51.01 Active 0111214 Problem Mood disorder F39 Active 72057266 Problem History of DVT (deep vein thrombosis) Z86.718 Active 208875587 Problem Chronic pain syndrome G89.4 Active 514892271 Problem Chronic systolic (congestive) heart failure I50.22 Active 182483626 Problem Macrocytosis D75.89 Active 097561301 Problem Tobacco abuse Z72.0 Active 798006975 Problem Mild episode of recurrent major depressive disorder F33.0 Active 697865202 Problem BMI 45.0-49.9, adult Z68.42 Active 053366134 Problem Gastroesophageal reflux disease, esophagitis presence not specified K21.9 Active 003693470 Problem Non-ischemic cardiomyopathy I42.9 Active 64965078 Problem Essential hypertension I10 Active 15393506 Problem Major depressive disorder, recurrent episode, unspecified severity F33.9 Active 66533965 Problem PTSD (post-traumatic stress disorder) F43.10 Active 21504089 Problem IMTCHELL treated with BiPAP G47.33 Active 64243492 Problem Chronic obstructive pulmonary disease, unspecified COPD type J44.9 Active 73602598 Problem History of weight loss surgery Z98.84 Active 898031397 ALLERGIES No Information ENCOUNTERS Encounter Location Date Diagnosis [facility] [id number] [place] [address] Nov, [facility] [id number] [place] [address] Nov, [facility] [address] [address] Oct, BMI 45.0-49.9, adult Z68.42 ; Type 2 diabetes mellitus with diabetic polyneuropathy E11.42 ; Chronic pain syndrome G89.4 ; Gastroesophageal reflux disease, esophagitis presence not specified K21.9 ; Decreased pedal pulses R09.89 and Precordial pain R07.2 [facility] [id number] [place] [address] Oct, [facility] [id number] [place] [address] Oct, Mood disorder F39 [facility] [address] [address] Oct, Mood disorder F39 ; Posttraumatic stress disorder F43.10 and BMI 45.0-49.9, adult Z68.42 [facility] [id number] [place] [address] Sep, Primary osteoarthritis of both knees M17.0 and Chronic pain syndrome G89.4 [facility] [id number] [place] [address] Sep, Mood disorder F39 and Posttraumatic stress disorder F43.10 [facility] [id number] [place] [address] Aug, Primary osteoarthritis of both knees M17.0 and Chronic pain syndrome G89.4 [facility] [id number] [place] [address] July, Primary osteoarthritis of both knees M17.0 and Chronic pain syndrome G89.4 [facility] [id number] [place] [address] July, Type 2 diabetes mellitus with diabetic polyneuropathy E11.42 ; Essential hypertension I10 ; Pure hypercholesterolemia E78.0 ; Chronic prescription opiate use Z79.891 ; Tobacco abuse Z72.0 ; Primary osteoarthritis of both knees M17.0 ; Primary insomnia F51.01 and BMI 45.0-49.9, adult Z68.42 [facility] [id number] [place] [address] 08 Jul, 2017 Medicare annual wellness visit, [...] specified K21.9 and Encounter for immunization Z23 [facility] [address] [address] July, Primary osteoarthritis of both knees M17.0 and Chronic pain syndrome G89.4 [facility] [id number] [place] [address] Jun, Infection of right ear H66.91 ; Wheezing on auscultation R06.2 and BMI 45.0-49.9, adult Z68.42 [facility] [id number] [place] [address] Jun, [facility] [address] [address] Jun, Primary osteoarthritis of both knees M17.0 and Chronic pain syndrome G89.4 [facility] [id number] [place] [address] May, [facility] [address] [place] [address] May, BMI 45.0-49.9, adult Z68.42 ; Mood disorder F39 and Posttraumatic stress disorder F43.10 [facility] [address] [place] [address] May, [facility] [id number] [place] [address] May, Primary osteoarthritis of both knees M17.0 and Chronic pain syndrome G89.4 [facility] [id number] [place] [address] May, Mood disorder F39 [facility] [id number] [place] [address] Apr, Type 2 diabetes mellitus with diabetic polyneuropathy E11.42 [facility] [id number] [place] [address] Apr, [facility] [id number] [place] [address] Apr, Primary osteoarthritis of both knees M17.0 and Chronic pain syndrome G89.4 [facility] [address] [place] [address] Apr, Mood disorder F39 [facility] [address] [place] [address] Mar, Mood disorder F39 and Posttraumatic stress disorder F43.10 [facility] [address] [place] [address] Mar, Primary osteoarthritis of both knees M17.0 and Chronic pain syndrome G89.4 [facility] [address], [place] [address] Feb, Primary osteoarthritis of both knees M17.0 and Chronic pain syndrome G89.4 [facility] [id number] [place] [address] Feb, Mood disorder F39 [facility] [id number] [place] [address] Jan, Type 2 diabetes mellitus with diabetic polyneuropathy E11.42 ; Primary osteoarthritis of both knees M17.0 ; Mood disorder F39 ; Obesity, morbid, BMI 40.0-49.9 E66.01 ; Chronic prescription opiate use Z79.891 ; Acute suppurative otitis media of both ears without spontaneous rupture of tympanic membranes, recurrence not specified H66.003 and BMI 45.0-49.9, adult Z68.42 [facility] [address] [address] Jan, Primary osteoarthritis of both knees M17.0 and Chronic pain syndrome G89.4 [facility] [id number] [place] [address] Dec, Mood disorder F39 and Posttraumatic stress disorder F43.10 [facility] [address] [address] Dec, Primary osteoarthritis of both knees M17.0 and Chronic pain syndrome G89.4 [facility] [id number] [place] [address] 18 Nov, 2016 Chronic pain syndrome G89.4 [facility] [id number] [place] [address] 15 Nov, 2016 Primary osteoarthritis of both knees M17.0 and Chronic pain syndrome G89.4 [facility] [id number] [place] [address] 13 Nov, 2016 Type 2 diabetes mellitus with diabetic polyneuropathy E11.42 and Chronic pain syndrome G89.4 [facility] [id number] [place] [address] 12 Nov, 2016 Posttraumatic stress disorder F43.10 and Mood disorder F39 [facility] [id number] [place] [address] Oct, Chronic pain syndrome G89.4 [facility] [address], [place] [address] Oct, Type 2 diabetes mellitus with diabetic polyneuropathy E11.42 ; BMI 45.0-49.9, adult Z68.42 ; Primary osteoarthritis of both knees M17.0 and Skin lesion L98.9 [facility] [id number] [place] [address] Oct, Chronic pain syndrome G89.4 [facility] [id number] [place] [address] Sep, Chronic pain syndrome G89.4 [facility] [id number] [place] [address] Sep, [facility] [id number] [place] [address] Sep, Chronic pain syndrome G89.4 [facility] [id number] [place] [address] Aug, Chronic pain syndrome G89.4 [facility] [id number] [place] [address] Aug, [facility] [id number] [place] [address] Aug, Macrocytosis D75.89 and Pure hypercholesterolemia E78.0 [facility] [id number] [place] [address] Aug, Pure hypercholesterolemia E78.0 [facility] [address] [place] [address] Aug, Macrocytosis D75.89 [facility] [address] [place] [address] Aug, Pure hypercholesterolemia E78.0 ; Type 2 diabetes mellitus with diabetic polyneuropathy E11.42 ; MITCHELL treated with BiPAP G47.33 and Chronic pain syndrome G89.4 [facility] [id number] [address] Aug, [facility] [id number] [place] [address] Aug, Hemorrhoids, unspecified hemorrhoid type K64.9 [facility] [id number] [place] [address] Aug, Chronic pain syndrome G89.4 ; Type 2 diabetes mellitus with diabetic polyneuropathy E11.42 ; Hemorrhoids, unspecified hemorrhoid type K64.9 ; Tobacco abuse Z72.0 and Primary osteoarthritis of both knees M17.0 [facility] [id number] [place] [address] July, Chronic pain syndrome G89.4 [facility] [id number] [place] [address] July, [facility] [id number] [place] [address] Jun, Chronic pain syndrome G89.4 [facility] [id number] [place] [address] Jun, Chronic pain syndrome G89.4 [facility] [id number] [place] [address] Jun, Severe major depression with psychotic features F32.3 and Posttraumatic stress disorder F43.10 [facility] [id number] [place] [address] Jun, Chronic pain syndrome G89.4 [facility] [id number] [place] [address] Jun, [facility] [id number] [place] [address] May, Chronic pain syndrome G89.4 [facility] [id number] [place] [address] May, Tobacco abuse Z72.0 [facility] [address], [place] [address] May, [facility] [id number] [place] [address] Apr, Chronic pain syndrome G89.4 [facility] [id number] [place] [address] Apr, [facility] [id number] [place] [address] Apr, Right foot pain M79.671 [facility] [id number] [place] [address] Mar, Type 2 diabetes mellitus with diabetic polyneuropathy E11.42 ; MITCHELL treated with BiPAP G47.33 ; Pure hypercholesterolemia E78.0 ; Chronic pain syndrome G89.4 ; Tobacco abuse Z72.0 and Obesity, morbid, BMI 40.0-49.9 E66.01 [facility] [id number] [place] [address] Mar, [facility] [id number] [place] [address] Mar, [facility] [id number] [place] [address] Mar, [facility] [id number] [place] [address] Mar, [facility] [id number] [place] [address] Mar, [facility] [id number] [place] [address] Mar, Severe major depression with psychotic features F32.3 and Posttraumatic stress disorder F43.10 [facility] [address], [place] [address] Mar, [facility] [id number] [place] [address] Feb, [facility] [id number] [place] [address] Feb, [facility] [id number] [place] [address] Jan, [facility] [id number] [place] [address] Jan, [facility] [id number] [place] [address] Dec, Posttraumatic stress disorder F43.10 and Severe major depression with psychotic features F32.3 [facility] [id number] [place] [address] Dec, Type 2 diabetes mellitus with diabetic polyneuropathy E11.42 ; Chronic pain syndrome G89.4 and Acute right-sided low back pain with right-sided sciatica M54.41 [facility] [id number] [place] [address] Dec, [facility] [id number] [place] [address] Dec, [facility] [id number] [place] [address] Nov, [facility] [id number] [place] [address] Nov, [facility] [id number] [place] [address] Nov, [facility] [id number] [place] [address] Oct, [facility] [id number] [place] [address] Oct, [facility] [id number] [place] [address] Sep, Dental examination Z01.20 [facility] [id number] [place] [address] Sep, [facility] [id number] [place] [address] Sep, Type 2 diabetes mellitus with diabetic polyneuropathy E11.42 ; Chronic pain syndrome G89.4 ; Chronic prescription opiate use Z79.891 ; Injury of right index finger, sequela S69.91XS and Anejaculation N50.8 [facility] [id number] [place] [address] Aug, [facility] [id number] [place] [address] Aug, [facility] [id number] [place] [address] Aug, Cellulitis of finger of right hand L03.011 [facility] [id number] [place] [address] July, [facility] [id number] [place] [address] July, [facility] [id number] [place] [address] Jun, Onychomycosis B35.1 [facility] [id number] [place] [address] Jun, Severe major depression with psychotic features F32.3 and Posttraumatic stress disorder F43.10 [facility] [id number] [place] [address] Jun, [facility] [id number] [place] [address] Jun, [facility] [id number] [place] [address] Jun, [facility] [id number] [place] [address] May, Type 2 diabetes mellitus with diabetic polyneuropathy E11.42 [facility] [id number] [place] [address] May, Type 2 diabetes mellitus with diabetic polyneuropathy E11.42 and Urinary hesitancy R39.11 [facility] [id number] [place] [address] May, Type 2 diabetes mellitus with diabetic polyneuropathy E11.42 ; Left hip pain M25.552 and Benign prostatic hyperplasia with lower urinary tract symptoms, unspecified morphology N40.1 [facility] [id number] [place] [address] May, [facility] [id number] [place] [address] Apr, Severe major depression with psychotic features F32.3 and Posttraumatic stress disorder F43.10 [facility] [id number] [place] [address] Apr, [facility] [id number] [place] [address] Mar, [facility] [id number] [place] [address] Mar, Dysuria R30.0 and Urinary hesitancy R39.11 [facility] [id number] [place] [address] Mar, Onychomycosis B35.1 [facility] [id number] [place] [address] Mar, [facility] [id number] [place] [address] Feb, [facility] [id number] [place] [address] Jan, [facility] [id number] [place] [address] Jan, Posttraumatic stress disorder F43.10 and Severe major depression with psychotic features F32.3 [facility] [id number] [place] [address] Jan, [facility] [id number] [place] [address] Jan, Chronic pain syndrome G89.4 ; Type 2 diabetes mellitus with diabetic polyneuropathy E11.42 ; Decreased pedal pulses R09.89 and Paresthesia of both hands R20.2 [facility] [id number] [place] [address] Dec, Posttraumatic stress disorder F43.10 and Severe major depression with psychotic features F32.3 [facility] [id number] [place] [address] Dec, [facility] [id number] [place] [address] Dec, [facility] [id number] [place] [address] Dec, Onychomycosis B35.1 [facility] [id number] [place] [address] Dec, [facility] [id number] [place] [address] Dec, [facility] [id number] [place] [address] Nov, [facility] [id number] [place] [address] Oct, Depression, major, recurrent, moderate 296.32 and Posttraumatic stress disorder 309.81 [facility] [id number] [place] [address] Oct, [facility] [id number] [place] [address] Oct, [facility] [id number] [place] [address] Oct, [facility] [id number] [place] [address] Sep, Posttraumatic stress disorder 309.81 and Depression, major, recurrent, moderate 296.32 [facility] [id number] [place] [address] Sep, [facility] [address] [address] Sep, Chronic airway obstruction, not elsewhere classified [address] [address] Sep, Onychomycosis 110.1 and DM neuro manif type II 250.[address] [id number] [place] [address] Sep, Chronic pain 338.29 ; Chronic airway obstruction, not elsewhere classified 496 ; Osteoarthritis of knees, bilateral 715.96 and On potassium wasting diuretic therapy V58.69 [facility] [id number] [place] [address] Sep, Insect bites 919.4 ; Sinusitis 473.9 and GERD (gastroesophageal reflux disease) 530.81 [facility] [id number] [place] [address] Aug, Depression, major, recurrent, moderate 296.32 and Posttraumatic stress disorder 309.81 [facility] [id number] [place] [address] Aug, [facility] [id number] [place] [address] Aug, [facility] [id number] [place] [address] Aug, [facility] [id number] [place] [address] July, Major depressive disorder, recurrent episode, moderate 296.32 and Posttraumatic stress disorder 309.81 [facility] [address] [id number] [place] [address] July, [facility] [place] [facility] [address] [id number] [place] [address] July, [facility] [address] [facility] [id number] [place] [address] July, [facility] [place] [facility] [address] [id number] [address] July, [facility] [address] [id number] [place] [address] Jun, [facility] [place] [facility] [address] [facility] [id number] [place] [address] Jun, [facility] [address] [facility] [id number] [place] [address] May, [facility] [place] [facility] [address] [facility] [id number], [place] [address] May, [facility] [place] [facility] [address] [facility] [id number], [place] [address] May, [facility] [place] [facility] [address] [facility] [id number], [place] [address] May, [facility] [place] [facility] [address] [facility] [id number], [place] [address] May, [facility] [place] [facility] [address] [id number], [place] [address] May, [facility] [place] [facility] [address] [facility] [id number], [place] [address] May, [facility] [place] [facility] [address] [facility] [id number], [place] [address] May, [facility] [place] [facility] [address] [facility] [id number], [place] [address] May, [facility] [place] [facility] [address] [facility] [id number] [place] [address] Apr, 2014 [facility] [place] [facility] [address] [id number] [place] [address] Apr, 2014 [facility] [place] [facility] [address] [id number] [place] [address] Apr, 2014 [facility] [place] [facility] [address] [id number] [place] [address] Apr, 2014 [facility] [place] [facility] [address] [id number] [place] [address] Apr, 2014 [facility] [place] [facility] [address] [id number] [place] [address] Apr, 2014 [facility] [place] [facility] [address] [facility] [id number] [place] [address] Apr, 2014 [facility] [place] [facility] [address] [facility] [id number] [place] [address] Apr, 2014 [facility] [place] [facility] [address] [id number] [place] [address] Apr, [facility] [place] [facility] [address] [facility] [id number] [place] [address] Mar, [facility] [place] [facility] [address] [facility] [id number] [place] [address] Mar, [facility] [place] [facility] [address] [facility] [id number] [place] [address] Mar, [facility] [place] [facility] [address] [id number] [place] [address] Mar, [facility] [facility] [address] [id number] [place] [address] Mar, [facility] [facility] [address] [facility] [id number] [place] [address] Mar, [facility] [place] [address] [id number], [place] [address] 15 Mar, 2014 [facility] [place] [facility] [address] [id number] [place] [address] 15 Mar, 2014 [facility] [place] [facility] [address] [id number] [place] [address] 15 Mar, 2014 [facility] [place] [facility] [address] [id number] [place] [address] 15 Mar, 2014 [facility] [place] [facility] [address] [id number] [place] [address] 14 Mar, 2014 [facility] [place] [facility] [address] [id number] [place] [address] 14 Mar, 2014 [facility] [place] [facility] [address] [id number] [place] [address] 14 Mar, 2014 [facility] [place] [facility] [address] [id number] [place] [address] 14 Mar, 2014 [facility] [place] [facility] [address] [id number], [place] [address] 14 Mar, 2014 [facility] [place] [facility] [address] [id number] [place] [address] 14 Mar, 2014 [facility] [place] [facility] [address] [id number] [place] [address] 09 Mar, 2014 [facility] [facility] [address] [id number], [place] [address] 09 Mar, 2014 [facility] [address] [id number], [place] [address] 16 Feb, 2014 [facility] [facility] [address] [id number] [place] [address] 16 Feb, 2014 [facility] [address] [id number], [place] [address] 15 Feb, 2014 [facility] [address] [id number], [place] [address] 15 Feb, 2014 [facility] [place] [facility] [address] [id number] [place] [address] Feb, [facility] [place] [facility] [address] [id number] [place] [address] Feb, [facility] [facility] [address] [id number] [place] [address] Jan, [facility] [address] [id number] [place] [address] Jan, [facility] [facility] [address] [id number] [place] [address] Jan, [facility] [address] [id number] [place] [address] Jan, [facility] [address] [id number] [place] [address] Jan, [facility] [address] [id number] [place] [address] Jan, [facility] [address] [id number] [place] [address] Jan, [facility] [address] [id number] [place] [address] Jan, [facility] [address] [facility] [id number] [place] [address] Jan, [facility] [address] [id number] [place] [address] Jan, [facility] [address] [id number], [place] [address] Dec, [facility] [address] [id number] [place] [address] Dec, [facility] [address] [id number] [place] [address] Dec, [facility] [address] [id number] [place] [address] Dec, [facility] [address] [id number] [place] [address] Nov, 2013 [facility] [address] [id number] [place] [address] Nov, [facility] [address] [id number] [place] [address] Nov, 2013 [facility] [address] [id number] [place] [address] Nov, 2013 [facility] [address] [id number] [place] [address] Nov, 2013 [facility] [address] [id number] [place] [address] Nov, [facility] [address] [id number] [place] [address] Oct, [facility] [address] [id number] [place] [address] Oct, [facility] [address] [id number] [place] [address] Oct, [facility] [address] [id number] [place] [address] Oct, [facility] [address] [id number] [place] [address] Sep, [facility] [address] [id number] [place] [address] Sep, [facility] [address] [id number] [place] [address] Sep, [facility] [address] [id number] [place] [address] Sep, [facility] [address] [id number] [place] [address] Sep, [facility] [address] [id number], [place] [address] Sep, [facility] [address] [id number] [place] [address] July, [facility] [address] [id number] [place] [address] July, [facility] [address] [id number] [place] [address] July, [facility] [address] [id number] [place] [address] July, [facility] [address] [id number] [place] [address] Jun, [facility] [address] [id number] [place] [address] Jun, [facility] [address] [id number] [place] [address] Jun, [facility] [address] [id number] [place] [address] Jun, [facility] [address] [id number] [place] [address] Jun, [facility] [address] [id number] [place] [address] Jun, [facility] [address] [id number] [place] [address] May, [facility] [address] [id number] [place] [address] May, [facility] [address] [id number] [place] [address] Apr, [facility] [address] [id number] [place] [address] Apr, [facility] [address] [id number] [place] [address] Apr, [facility] [address] [id number] [place] [address] Apr, [facility] [address] [id number] [place] [address] Apr, [facility] [address] [id number] [place] [address] Apr, [facility] [address] [id number] [place] [address] Apr, [facility] [address] [id number] [place] [address] Mar, [facility] [address] [id number] [place] [address] Mar, [facility] [address] [id number] [place] [address] Mar, [facility] [address] [id number] [place] [address] Mar, [facility] [address] [id number] [place] [address] Mar, [facility] [address] [id number] [place] [address] Mar, [facility] [address] [id number] [place] [address] Mar, [facility] [address] [id number] [place] [address] Mar, [facility] [address] [id number] [place] [address] Feb, [facility] [address] [id number] [place] [address] Feb, [facility] [address] [id number] [place] [address] Feb, [facility] [address] [id number], [place] [address] Feb, [facility] [address] [id number] [place] [address] Feb, [facility] [address] [id number], [place] [address] Feb, [facility] [address] [id number], [place] [address] Feb, [facility] [address] [id number], [place] [address] Jan, [facility] [address] [id number] [place] [address] Jan, [facility] [address] [id number], [place] [address] Jan, [facility] [address] [id number], [place] [address] Jan, [facility] [address] [id number], [place] [address] Jan, [facility] [address] [id number], [place] [address] Jan, [facility] [address] [id number] [id number] Jan, [facility] [address] [id number][place] [id number] Jan, [facility] [address] [id number], [place] [address] Dec, [facility] [address] [id number], [place] [address] Dec, [facility] [address] [id number], [place] [address] Dec, [facility] [address] [id number], [place] [address] Dec, [facility] [address] [id number] [place] [address] 31 Dec, 2012 [facility] [address] [id number] [place] [address] Dec, [facility] [address] [id number] [place] [address] Dec, [facility] [address] [id number] [place] [address] Dec, [facility] [address] [id number] [place] [address] 16 Dec, 2012 [facility] [address] [id number] [place] [address] Dec, [facility] [address] [id number] [place] [id number] 27 Nov, 2012 [facility] [address] [id number] [place] [id number] 27 Nov, 2012 [facility] [address] [id number] [place] [address] 24 Nov, 2012 [facility] [address] [id number] [place] [address] 20 Nov, 2012 [facility] [address] [id number] [place] [address] 19 Nov, 2012 [facility] [address] [id number] [place] [address] 13 Nov, 2012 [facility] [address] [id number], [place] [address] 10 Nov, 2012 [facility] [address] [id number] [place] [address] 06 Nov, 2012 [facility] [address] [id number] [place] [address] Oct, [facility] [address] [id number] [place] [address] Oct, [facility] [address] [id number] [place] [address] Oct, [facility] [address] [id number] [place] [address] Sep, [facility] [address] [id number] [place] [address] Sep, [facility] [address] [id number] [place] [address] Sep, [facility] [address] [id number] [place] [address] Sep, [facility] [address] [id number] [place] [address] Sep, [facility] [address] [id number] [place] [address] Aug, [facility] [address] [id number] [place] [address] Aug, [facility] [address] [id number] [place] [address] Aug, [facility] [address] [id number] [place] [address] Aug, [facility] [address] [id number] [place] [address] Aug, [facility] [address] [id number] [place] [address] Aug, [facility] [address] [id number] [place] [address] July, [facility] [address] [id number] [place] [address] July, [facility] [address] [id number] [place] [address] July, [facility] [address] [id number] [place] [address] July, [facility] [address] [id number] [place] [address] July, [facility] [address] [id number] [place] [address] July, [facility] [address] [id number] [place] [address] Jun, [facility] [address] [id number] [place] [address] Jun, [facility] [address] [id number] [place] [address] Jun, [facility] [address] [id number] [place] [address] Jun, [facility] [address] [id number] [place] [address] May, [facility] [address] [id number], [place] [address] May, [facility] [address] [id number] [place] [address] May, [facility] [address] [id number] [place] [address] Apr, [facility] [address] [id number], [place] [address] Mar, [facility] [address] [id number], [place] [address] Mar, [facility] [address] [id number] [place] [address] Mar, [facility] [address] [id number], [place] [address] 16 Mar, 2012 [facility] [address] [id number], [place] [address] 15 Mar, 2012 [facility] [address] [id number] [place] [address] Feb, [facility] [address] [id number] [place] [address] Feb, [facility] [address] [id number] [place] [address] Feb, [facility] [address] [id number] [place] [address] Feb, [facility] [facility] [address] [id number] [place] [address] Jan, [facility] [address] [id number] [place] [address] Jan, [facility] [address] [id number] [place] [address] Jan, [facility] [facility] [address] [id number] [place] [address] Jan, [facility] [facility] [address] [id number] [place] [address] Dec, [facility] [facility] [address] [id number] [place] [address] Dec, [facility] [facility] [address] [id number] [place] [address] Nov, [facility] [facility] [address] [id number] [place] [address] Oct, [facility] [facility] [address] [id number] [place] [address] Oct, [facility] [place] [facility] [address] [id number] [place] [address] Oct, [facility] [place] [facility] [address] [id number] [place] [address] Oct, [facility] [place] [facility] [address] [id number] [place] [address] Oct, [facility] [address] [id number] [place] [address] Sep, [facility] [address] [id number] [place] [address] Sep, [facility] [address] [id number] [place] [address] Aug, [facility] [address] [place] [id number] Aug, [facility] [address] [id number] [place] [address] Aug, [facility] [address] [id number] [place] [address] July, [facility] [address] [id number] [place] [address] July, [facility] [address] [id number] [place] [address] Jun, [facility] [address] [id number] [place] [address] Jun, [facility] [address] [id number] [place] [address] Jun, [facility] [address] [id number] [place] [address] Jun, [facility] [address] [id number] [place] [address] 15 Apr, 2011 [facility] [address] [id number] [place] [address] Apr, [facility] [address] [id number] [place] [address] Apr, [facility] [address] [id number] [place] [address] Mar, [facility] [address] [id number] [place] [address] Mar, [facility] [place] [facility] [address] [id number] [place] [address] Mar, [facility] [place] [facility] [address] [id number] [place] [address] Mar, [facility] [place] [facility] [address] [id number] [place] [address] Mar, [facility] [place] [facility] [address] [id number] [place] [address] Jan, [facility] [place] [facility] [address] [id number] [place] [address] Jan, [facility] [place] [facility] [address] [id number] [place] [address] Jan, [facility] [place] [facility] [address] [id number] [place] [address] Mar, [facility] [place] [facility] [address] [id number] [place] [address] Mar, [facility] [place] [facility] [address] [id number] [place] [address] Feb, [facility] [place] [facility] [address] [id number], [place] [address] Feb, [facility] [place] [facility] [address] [id number], [place] [address] Feb, [facility] [place] [facility] [address] [id number], [place] [address] Jan, [facility] [place] [facility] [address] [id number] [place] [address] Jan, [facility] [place] [facility] [address] [id number], [place] [address] Dec, [facility] [place] [facility] [address] [id number], [place] [address] Dec, [facility] [place] [facility] [address] [id number], [place] [address] 10 May, 2009 [facility] [address] [id number], [place] [address] Apr, [facility] [id number], [place] [address] Feb, [facility] [id number], [place] [address] Feb, [facility] [id number], [place] [address] Jan, [facility] [id number] [place] [address] Jan, [facility] [id number], [place] [address] Jan, [facility] [id number], [place] [address] Jan, [facility] [address] [id number], [place] [address] Jan, IMMUNIZATIONS No Known Immunizations SOCIAL HISTORY Never Assessed REASON FOR VISIT Controlled Med Refill PLAN OF CARE VITAL SIGNS MEDICATIONS Medication Instructions Dosage Frequency Start Date End Date Duration Status MS Contin 30 MG Orally every 12 hrs 1 tablet 12h Aug, 28 days Active Hydrocodone-Acetaminophen 5-325 MG Orally every 6 [...] Hospitalization History ED then admitted to [facility]-cardiac stepdown-chest pain 02/2010 Hospitalization History Possible DVT-sono negative 06/2010 Hospitalization History cellulitis to bilat legs
--- OUTSIDE RECORDS SUMMARY | 2018-10-04 06:38 | XMS REPORT ---
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 Name Role Phone GEOVANNI DHILLON Unavailable PROBLEMS Type Condition ICD9-CM Code PYP61-ZL Code Onset Dates Condition Status SNOMED Code Problem Primary osteoarthritis of both knees M17.0 Active 717720133 Problem Nocturnal hypoxia G47.34 Active 273657132 Problem Chronic prescription opiate use Z79.891 Active 601041895 Problem Pure hypercholesterolemia E78.0 Active 145106299 Problem Acute right-sided low back pain with right-sided sciatica M54.41 Active 35079196 Problem Type 2 diabetes mellitus with diabetic polyneuropathy E11.42 Active 421796952 Problem Severe major depression with psychotic features F32.3 Active 70138326 Problem Obesity, morbid, BMI 40.0-49.9 E66.01 Active 245699955 Problem Posttraumatic stress disorder F43.10 Active 41466090 Problem Primary insomnia F51.01 Active 0620041 Problem Mood disorder F39 Active 84677905 Problem History of DVT (deep vein thrombosis) Z86.718 Active 864599500 Problem Chronic pain syndrome G89.4 Active 299909730 Problem Chronic systolic (congestive) heart failure I50.22 Active 547990849 Problem Macrocytosis D75.89 Active 735617818 Problem Tobacco abuse Z72.0 Active 110412370 Problem Mild episode of recurrent major depressive disorder F33.0 Active 287956637 Problem BMI 45.0-49.9, adult Z68.42 Active 764792342 Problem Gastroesophageal reflux disease, esophagitis presence not specified K21.9 Active 850929384 Problem Non-ischemic cardiomyopathy I42.9 Active 14468927 Problem Essential hypertension I10 Active 85858481 Problem Major depressive disorder, recurrent episode, unspecified severity F33.9 Active 20126267 Problem PTSD (post-traumatic stress disorder) F43.10 Active 93482309 Problem MITCHELL treated with BiPAP G47.33 Active 44109101 Problem Chronic obstructive pulmonary disease, unspecified COPD type J44.9 Active 13678497 Problem History of weight loss surgery Z98.84 Active 019334299 ALLERGIES No Information ENCOUNTERS Encounter Location Date Diagnosis [place] [id number] [place] [address] Nov, [place] [address] [place] [id number] [place] [address] Oct, [place] [address] [id number] [place] [address] Oct, Mood disorder F39 ; Posttraumatic stress disorder F43.10 and BMI 45.0-49.9, adult Z68.42 [place] [address] [place] [id number] [place] [address] Sep, Primary osteoarthritis of both knees M17.0 and Chronic pain syndrome G89.4 [place] [address] [place] [id number] [place] [address] Sep, Mood disorder F39 and Posttraumatic stress disorder F43.10 [place] [address] [id number] [place] [address] Aug, Primary osteoarthritis of both knees M17.0 and Chronic pain syndrome G89.4 [place] [address] [place] [address] July, Primary osteoarthritis of both knees M17.0 and Chronic pain syndrome G89.4 [place] [address] [place] [id number] [place] [address] July, Type 2 diabetes mellitus with diabetic polyneuropathy E11.42 ; Essential hypertension I10 ; Pure hypercholesterolemia E78.0 ; Chronic prescription opiate use Z79.891 ; Tobacco abuse Z72.0 ; Primary osteoarthritis of both knees M17.0 ; Primary insomnia F51.01 and BMI 45.0-49.9, adult Z68.42 [place] [address] [place] [id number] [place] [address] 08 Jul, 2017 Medicare annual wellness visit, [...] specified K21.9 and Encounter for immunization Z23 [place] [address] [address] July, Primary osteoarthritis of both knees M17.0 and Chronic pain syndrome G89.4 [facility] [address] [address] Jun, Infection of right ear H66.91 ; Wheezing on auscultation R06.2 and BMI 45.0-49.9, adult Z68.42 [place] [address] [address] Jun, [place] [address] [address] Jun, Primary osteoarthritis of both knees M17.0 and Chronic pain syndrome G89.4 [place] [address] [place] [id number] [place] [address] May, [place] [address] [place] [id number] [place] [address] May, BMI 45.0-49.9, adult Z68.42 ; Mood disorder F39 and Posttraumatic stress disorder F43.10 [place] [address] [address] May, [place] [address] [address] May, Primary osteoarthritis of both knees M17.0 and Chronic pain syndrome G89.4 [place] [address] [address] May, Mood disorder F39 [facility] [address] [address] Apr, Type 2 diabetes mellitus with diabetic polyneuropathy E11.42 [facility] [address] [address] Apr, [facility] [id number] [place] [address] Apr, Primary osteoarthritis of both knees M17.0 and Chronic pain syndrome G89.4 [facility] [address] [place] [address] Apr, Mood disorder F39 [facility] [address] [place] [address] Mar, Mood disorder F39 and Posttraumatic stress disorder F43.10 [facility] [id number] [place] [address] Mar, Primary osteoarthritis of both knees M17.0 and Chronic pain syndrome G89.4 [facility] [id number] [place] [address] Feb, Primary osteoarthritis of both knees M17.0 and Chronic pain syndrome G89.4 [facility] [address] [place] [address] Feb, Mood disorder F39 [facility] [address] [place] [address] Jan, Type 2 diabetes mellitus with diabetic polyneuropathy E11.42 ; Primary osteoarthritis of both knees M17.0 ; Mood disorder F39 ; Obesity, morbid, BMI 40.0-49.9 E66.01 ; Chronic prescription opiate use Z79.891 ; Acute suppurative otitis media of both ears without spontaneous rupture of tympanic membranes, recurrence not specified H66.003 and BMI 45.0-49.9, adult Z68.42 [facility] [address] [place] [address] Jan, Primary osteoarthritis of both knees M17.0 and Chronic pain syndrome G89.4 [facility] [address] [place] [address] Dec, Mood disorder F39 and Posttraumatic stress disorder F43.10 [facility] [address] [place] [address] Dec, Primary osteoarthritis of both knees M17.0 and Chronic pain syndrome G89.4 [facility] [address] [place] [address] 18 Nov, 2016 Chronic pain syndrome G89.4 [facility] [address] [place] [address] [id number] [place] [address] 15 Nov, 2016 Primary osteoarthritis of both knees M17.0 and Chronic pain syndrome G89.4 [facility] [address] [id number] [place] [address] Nov, Type 2 diabetes mellitus with diabetic polyneuropathy E11.42 and Chronic pain syndrome G89.4 [facility] [address] [place] [address] 12 Nov, 2016 Posttraumatic stress disorder F43.10 and Mood disorder F39 [facility] [address] [place] [address] Oct, Chronic pain syndrome G89.4 [facility] [address] [place] [address] Oct, Type 2 diabetes mellitus with diabetic polyneuropathy E11.42 ; BMI 45.0-49.9, adult Z68.42 ; Primary osteoarthritis of both knees M17.0 and Skin lesion L98.9 [facility] [address] [place] [address] Oct, Chronic pain syndrome G89.4 [facility] [address] [place] [address] Sep, Chronic pain syndrome G89.4 [facility] [address] [address] Sep, [facility] [address] [place] [id number] [place] [address] Sep, Chronic pain syndrome G89.4 [facility] [address] [place] [id number] [place] [address] Aug, Chronic pain syndrome G89.4 [facility] [address] [place] [id number] [place] [address] Aug, [facility] [address] [place] [id number] [place] [address] Aug, Macrocytosis D75.89 and Pure hypercholesterolemia E78.0 [place] [address] [place] [id number] [place] [address] Aug, Pure hypercholesterolemia E78.0 [place] [address] [place] [id number] [place] [address] Aug, Macrocytosis D75.89 [facility] [address] [place] [id number] [place] [address] Aug, Pure hypercholesterolemia E78.0 ; Type 2 diabetes mellitus with diabetic polyneuropathy E11.42 ; MITCHELL treated with BiPAP G47.33 and Chronic pain syndrome G89.4 [place] [address] [place] [address] Aug, [facility] [address] [place] [address] Aug, Hemorrhoids, unspecified hemorrhoid type K64.9 [place] [address] [place] [id number] [place] [address] Aug, Chronic pain syndrome G89.4 ; Type 2 diabetes mellitus with diabetic polyneuropathy E11.42 ; Hemorrhoids, unspecified hemorrhoid type K64.9 ; Tobacco abuse Z72.0 and Primary osteoarthritis of both knees M17.0 [facility] [address] [address] July, Chronic pain syndrome G89.4 [facility] [address] [place] [id number] [place] [address] July, [facility] [address] [place] [id number] [place] [address] Jun, Chronic pain syndrome G89.4 [facility] [address] [place] [id number] [place] [address] Jun, Chronic pain syndrome G89.4 [facility] [address] [place] [id number] [place] [address] Jun, Severe major depression with psychotic features F32.3 and Posttraumatic stress disorder F43.10 [facility] [address] [place] [id number] [place] [address] Jun, Chronic pain syndrome G89.4 [facility] [address] [place] [id number] [place] [address] Jun, [facility] [address] [place] [address] [id number] [place] [address] May, Chronic pain syndrome G89.4 [facility] [address] [place] [address] May, Tobacco abuse Z72.0 [facility] [address] [address] [id number] [place] [address] May, [facility] [address] [place] [id number] [place] [address] Apr, Chronic pain syndrome G89.4 [facility] [address] [place] [id number] [place] [address] Apr, [facility] [address] [place] [address] Apr, Right foot pain M79.671 [facility] [address] [id number] [address] Mar, Type 2 diabetes mellitus with diabetic polyneuropathy E11.42 ; MITCHELL treated with BiPAP G47.33 ; Pure hypercholesterolemia E78.0 ; Chronic pain syndrome G89.4 ; Tobacco abuse Z72.0 and Obesity, morbid, BMI 40.0-49.9 E66.01 [facility] [address] [place] [id number] [place] [address] Mar, [facility] [address] [place] [id number] [place] [address] Mar, [facility] [address] [place] [id number] [place] [address] Mar, [facility] [address] [id number] [place] [address] Mar, [facility] [address] [id number] [place] [address] Mar, [facility] [address] [place] [id number] [place] [address] Mar, Severe major depression with psychotic features F32.3 and Posttraumatic stress disorder F43.10 [facility] [address] [id number] [place] [address] Mar, [facility] [address] [address] Feb, [facility] [address] [id number] [place] [address] Feb, [facility] [address] [place] [address] Jan, [facility] [address] [place] [id number] [place] [address] Jan, [facility] [address] [address] Dec, Posttraumatic stress disorder F43.10 and Severe major depression with psychotic features F32.3 [facility] [address] [id number] [place] [address] Dec, Type 2 diabetes mellitus with diabetic polyneuropathy E11.42 ; Chronic pain syndrome G89.4 and Acute right-sided low back pain with right-sided sciatica M54.41 [facility] [id number] [place] [address] Dec, [facility] [address] [id number] [place] [address] Dec, [facility] [address] [id number] [place] [address] Nov, [facility] [address] [id number] [place] [address] Nov, [facility] [address] [id number] [place] [address] Nov, [facility] [address] [id number] [place] [address] Oct, [facility] [id number] [place] [address] Oct, [facility] [id number] [place] [address] Sep, Dental examination Z01.20 [facility] [address] [id number] [place] [address] Sep, [facility] [id number] [place] [address] Sep, Type 2 diabetes mellitus with diabetic polyneuropathy E11.42 ; Chronic pain syndrome G89.4 ; Chronic prescription opiate use Z79.891 ; Injury of right index finger, sequela S69.91XS and Anejaculation N50.8 [facility] [address] [id number] [place] [address] Aug, [facility] [id number] [place] [address] Aug, [facility] [address], [place] [address] Aug, Cellulitis of finger of right hand L03.011 [facility] [address] [address] July, [facility] [address] [place] [address] July, [facility] [address] [place] [address] Jun, Onychomycosis B35.1 [facility] [address] [place] [id number] [place] [address] Jun, Severe major depression with psychotic features F32.3 and Posttraumatic stress disorder F43.10 [place] [address] [place] [id number] [place] [address] Jun, [facility] [address], [place] [address] Jun, [facility] [address] [address] Jun, [facility] [address], [place] [address] May, Type 2 diabetes mellitus with diabetic polyneuropathy E11.42 [place] [address] [address] May, Type 2 diabetes mellitus with diabetic polyneuropathy E11.42 and Urinary hesitancy R39.11 [place] [address] [place] [address] May, Type 2 diabetes mellitus with diabetic polyneuropathy E11.42 ; Left hip pain M25.552 and Benign prostatic hyperplasia with lower urinary tract symptoms, unspecified morphology N40.1 [facility] [address], [place] [address] May, [facility] [address], [place] [address] Apr, Severe major depression with psychotic features F32.3 and Posttraumatic stress disorder F43.10 [facility] [address] [address] Apr, [facility] [address] [place] [address] Mar, [facility] [address] [place] [address] Mar, Dysuria R30.0 and Urinary hesitancy R39.11 [facility] [address] [place] [address] Mar, Onychomycosis B35.1 [facility] [address] [place] [address] Mar, [facility] [address], [place] [address] Feb, [facility] [address] [place] [address] Jan, [facility] [address], [place] [address] Jan, Posttraumatic stress disorder F43.10 and Severe major depression with psychotic features F32.3 [facility] [address] [address] Jan, [facility] [address], [place] [address] Jan, Chronic pain syndrome G89.4 ; Type 2 diabetes mellitus with diabetic polyneuropathy E11.42 ; Decreased pedal pulses R09.89 and Paresthesia of both hands R20.2 [facility] [address], [place] [address] Dec, Posttraumatic stress disorder F43.10 and Severe major depression with psychotic features F32.3 [facility] [address], [place] [address] Dec, [facility] [id number] [place] [address] Dec, [facility] [id number] [place] [address] Dec, Onychomycosis B35.1 [facility] [id number] [place] [address] Dec, [facility] [id number] [place] [address] Dec, [facility] [id number] [place] [address] Nov, [facility] [id number] [place] [address] Oct, Depression, major, recurrent, moderate 296.32 and Posttraumatic stress disorder 309.81 [facility] [id number] [address] Oct, [facility] [id number] [place] [address] Oct, [facility] [id number] [address] Oct, [facility] [address] [place] [address] Sep, Posttraumatic stress disorder 309.81 and Depression, major, recurrent, moderate 296.32 [facility] [address], [place] [address] Sep, [facility] [id number] [place] [address] Sep, Chronic airway obstruction, not elsewhere classified 496 [facility] [id number] [place] [address] Sep, Onychomycosis 110.1 and DM neuro manif type II 250.60 [facility] [id number] [place] [address] Sep, Chronic pain 338.29 ; Chronic airway obstruction, not elsewhere classified 496 ; Osteoarthritis of knees, bilateral 715.96 and On potassium wasting diuretic therapy V58.69 [place] [address] [address] Sep, Insect bites 919.4 ; Sinusitis 473.9 and GERD (gastroesophageal reflux disease) 530.81 [place] [address] [address] Aug, Depression, major, recurrent, moderate 296.32 and Posttraumatic stress disorder 309.81 [place] [address] [address] Aug, [facility] [address] [address] Aug, [facility] [id number] [place] [address] Aug, [facility] [id number] [place] [address] July, Major depressive disorder, recurrent episode, moderate 296.32 and Posttraumatic stress disorder 309.81 [facility] [id number] [place] [address] July, [facility] [id number] [place] [address] July, [facility] [id number] [place] [address] July, [facility] [id number] [place] [address] July, [facility] [id number] [place] [address] Jun, [facility] [place] [facility] [address] [id number] [place] [address] 13 Jun, 2014 [facility] [place] [facility] [address] [id number] [place] [address] 20 May, 2014 [facility] [place] [facility] [address] [id number] [place] [address] 20 May, 2014 [facility] [place] [facility] [address] [id number] [place] [address] 18 May, 2014 [facility] [place] [facility] [address] [id number] [place] [address] 18 May, 2014 [facility] [place] [facility] [address] [id number] [place] [address] 18 May, 2014 [facility] [place] [facility] [address] [id number] [place] [address] 18 May, 2014 [facility] [place] [facility] [address] [id number] [place] [address] May, [facility] [place] [facility] [address] [id number] [place] [address] May, [facility] [place] [facility] [address] [id number] [place] [address] May, [facility] [place] [facility] [address] [id number] [place] [address] Apr, [facility] [place] [facility] [address] [id number] [place] [address] Apr, 2014 [facility] [place] [facility] [address] [id number] [place] [address] Apr, [facility] [place] [facility] [address] [id number] [place] [address] Apr, [facility] [place] [facility] [address] [id number] [place] [address] Apr, [facility] [place] [facility] [address] [id number] [address] 05 Apr, 2014 [facility] [place] [facility] [address] [id number] [place] [address] Apr, [facility] [place] [facility] [address] [id number] [place] [address] Apr, [facility] [place] [facility] [address] [id number] [place] [address] Apr, [facility] [place] [facility] [address] [id number] [place] [address] Mar, [facility] [place] [facility] [address] [id number] [place] [address] Mar, [facility] [place] [facility] [address] [id number] [place] [address] Mar, [facility] [place] [facility] [address] [id number] [place] [address] Mar, [facility] [place] [facility] [address] [id number] [place] [address] Mar, [facility] [place] [facility] [address] [id number] [place] [address] Mar, [facility] [place] [facility] [address] [facility] [id number] [place] [address] Mar, [facility] [place] [facility] [address] [id number] [place] [address] Mar, [facility] [place] [facility] [address] [id number] [place] [address] 15 Mar, 2014 [facility] [place] [facility] [address] [id number] [place] [address] Mar, [facility] [place] [facility] [address] [id number] [place] [address] 14 Mar, 2014 [facility] [place] [facility] [address] [id number] [place] [address] 14 Mar, 2014 [facility] [place] [facility] [address] [id number] [place] [address] 14 Mar, 2014 [facility] [place] [facility] [address] [id number] [place] [address] 14 Mar, 2014 [facility] [place] [facility] [address] [id number] [place] [address] 14 Mar, 2014 [facility] [place] [facility] [address] [id number] [place] [address] Mar, [facility] [place] [facility] [address] [id number] [place] [address] Mar, [facility] [place] [facility] [address] [id number] [place] [address] Mar, [facility] [place] [facility] [address] [id number] [place] [address] 16 Feb, 2014 [facility] [place] [facility] [address] [id number] [place] [address] 16 Feb, 2014 [facility] [place] [facility] [address] [id number] [place] [address] 15 Feb, 2014 [facility] [place] [facility] [address] [id number] [place] [address] 15 Feb, 2014 [facility] [place] [facility] [address] [id number] [place] [address] 15 Feb, 2014 [facility] [place] [facility] [address] [id number] [place] [address] 15 Feb, 2014 [facility] [place] [facility] [address] [id number] [place] [address] Jan, [facility] [place] [facility] [address] [id number] [place] [address] Jan, [facility] [place] [facility] [address] [id number] [place] [address] 17 Jan, 2014 [facility] [place] [facility] [address] [id number] [place] [address] Jan, [facility] [place] [facility] [address] [id number] [place] [address] Jan, [facility] [place] [facility] [address] [id number] [place] [address] Jan, [facility] [place] [facility] [address] [id number] [place] [address] Jan, [facility] [place] [facility] [address] [id number] [place] [address] Jan, [facility] [place] [facility] [address] [id number] [place] [address] Jan, [facility] [place] [facility] [address] [id number] [place] [address] Jan, [facility] [place] [facility] [address] [id number] [place] [address] Dec, [facility] [place] [facility] [address] [id number] [place] [address] Dec, [facility] [place] [facility] [address] [id number] [place] [address] Dec, [facility] [place] [facility] [address] [id number] [place] [address] Dec, [facility] [place] [facility] [address] [id number] [address] 16 Nov, 2013 [facility] [place] [facility] [address] [id number], [place] [address] 16 Nov, 2013 [facility] [place] [facility] [address] [id number] [place] [address] 03 Nov, 2013 [facility] [place] [facility] [address] [id number] [place] [address] 03 Nov, 2013 [facility] [place] [facility] [address] [id number] [place] [address] 03 Nov, 2013 [facility] [place] [facility] [address] [id number] [place] [address] Nov, [facility] [place] [facility] [address] [id number] [place] [address] Oct, [facility] [place] [facility] [address] [id number] [place] [address] Oct, [facility] [place] [facility] [address] [id number] [place] [address] Oct, [facility] [place] [facility] [address] [id number] [place] [address] Oct, [facility] [place] [facility] [address] [id number] [place] [address] Sep, [facility] [place] [facility] [address] [id number] [place] [address] Sep, [facility] [place] [facility] [address] [id number] [place] [address] Sep, [facility] [place] [facility] [address] [id number] [place] [address] Sep, [facility] [place] [facility] [address] [id number] [place] [address] Sep, [facility] [place] [facility] [address] [id number] [place] [address] Sep, [facility] [place] [facility] [address] [id number] [place] [address] July, [facility] [place] [facility] [address] [id number] [place] [address] July, [facility] [place] [facility] [address] [id number] [place] [address] July, [facility] [place] [facility] [address] [id number] [place] [address] July, [facility] [place] [facility] [address] [id number] [place] [address] Jun, [facility] [place] [facility] [address] [id number] [place] [address] Jun, [facility] [place] [facility] [address] [id number] [place] [address] Jun, [facility] [place] [facility] [address] [id number] [place] [address] Jun, [facility] [place] [facility] [address] [id number] [place] [address] Jun, [facility] [place] [facility] [address] [id number] [place] [address] Jun, [facility] [place] [facility] [address] [id number] [place] [address] May, [facility] [place] [facility] [address] [facility] [id number] [place] [address] May, [facility] [place] [facility] [address] [id number] [place] [address] Apr, [facility] [place] [facility] [address] [id number] [place] [address] Apr, [facility] [place] [facility] [address] [facility] [id number] [place] [address] Apr, [facility] [place] [facility] [address] [id number] [place] [address] Apr, [facility] [place] [facility] [address] [id number] [place] [address] Apr, [facility] [place] [facility] [address] [id number] [place] [address] Apr, [facility] [place] [facility] [address] [facility] [id number] [place] [address] Apr, [facility] [place] [facility] [address] [facility] [id number] [place] [address] Mar, [facility] [place] [facility] [address] [id number] [place] [address] Mar, [facility] [address] [id number] [place] [address] Mar, [facility] [address] [id number] [place] [address] Mar, [facility] [address] [id number] [place] [address] Mar, [facility] [address] [id number] [place] [address] Mar, [facility] [address] [id number] [place] [address] Mar, [facility] [address] [id number] [place] [address] Mar, [facility] [address] [id number] [place] [address] Feb, [facility] [address] [id number] [place] [address] Feb, [facility] [address] [id number] [place] [address] Feb, [facility] [address] [id number] [place] [address] Feb, [facility] [place] [facility] [address] [id number] [place] [address] Feb, [facility] [address] [id number] [place] [address] Feb, [facility] [place] [facility] [address] [id number] [place] [address] Feb, [facility] [place] [facility] [address] [id number] [place] [address] Jan, [facility] [address] [id number] [place] [address] Jan, [facility] [place] [facility] [address] [id number] [place] [address] Jan, [facility] [place] [facility] [address] [id number] [place] [address] Jan, [facility] [place] [facility] [address] [id number] [place] [address] Jan, [facility] [place] [facility] [address] [id number] [place] [address] Jan, [facility] [place] [facility] [address] [id number] [place] [id number] Jan, [facility] [place] [facility] [address] [id number] [place] [id number] Jan, [facility] [place] [facility] [address] [id number] [place] [address] Dec, [facility] [place] [facility] [address] [id number], [place] [address] Dec, [facility] [place] [facility] [address] [id number] [place] [address] Dec, [facility] [place] [facility] [address] [id number], [place] [address] Dec, [facility] [place] [facility] [address] [id number] [place] [address] Dec, [facility] [place] [facility] [address] [id number], [place] [address] Dec, [facility] [place] [facility] [address] [id number], [place] [address] Dec, [facility] [place] [facility] [address] [id number], [place] [address] Dec, [facility] [place] [facility] [address] [id number], [place] [address] 16 Dec, 2012 [facility] [place] [facility] [address] [id number], [place] [address] Dec, [facility] [place] [facility] [address] [id number] [place] [id number] Nov, [facility] [place] [facility] [address] [id number] [id number] Nov, [facility] [address] [id number], [place] [address] 24 Nov, 2012 [facility] [place] [facility] [address] [id number], [place] [address] 20 Nov, 2012 [facility] [address] [id number] [place] [address] Nov, [facility] [address] [id number], [place] [address] Nov, [facility] [address] [id number], [place] [address] Nov, [facility] [address] [id number], [place] [address] Nov, [facility] [address] [id number], [place] [address] Oct, [facility] [place] [facility] [address] [id number], [place] [address] Oct, [facility] [place] [facility] [address] [id number], [place] [address] Oct, [facility] [place] [facility] [address] [id number], [place] [address] Sep, [facility] [place] [facility] [address] [id number], [place] [address] Sep, [facility] [place] [facility] [address] [id number], [place] [address] Sep, [facility] [place] [facility] [address] [id number], [place] [address] Sep, [facility] [place] [facility] [address] [id number] [place] [address] Sep, [facility] [address] [id number] [place] [address] Aug, [facility] [address] [id number] [place] [address] Aug, [facility] [address] [id number] [place] [address] Aug, [facility] [address] [id number] [place] [address] Aug, [facility] [address] [id number] [place] [address] Aug, [facility] [address] [id number] [place] [address] Aug, [facility] [address] [id number] [place] [address] July, [facility] [address] [id number] [place] [address] July, [facility] [address] [id number] [place] [address] July, [facility] [place] [address] [id number] [place] [address] July, [facility] [address] [id number] [place] [address] July, [facility] [place] [facility] [address] [id number] [place] [address] July, [facility] [place] [facility] [address] [id number] [place] [address] Jun, [facility] [place] [facility] [address] [id number] [place] [address] Jun, [facility] [address] [id number] [place] [address] Jun, [facility] [place] [facility] [address] [id number] [place] [address] Jun, [facility] [address] [id number] [place] [address] May, [facility] [address] [id number] [place] [address] 15 May, 2012 [facility] [address] [id number] [place] [address] 06 May, 2012 [facility] [address] [id number] [place] [address] Apr, [facility] [address] [id number] [place] [address] Mar, [facility] [address] [id number] [place] [address] Mar, [facility] [address] [id number] [place] [address] 17 Mar, 2012 [facility] [address] [id number] [place] [address] 16 Mar, 2012 [facility] [address] [id number] [place] [address] 15 Mar, 2012 [facility] [address] [id number] [place] [address] Feb, [facility] [address] [id number] [place] [address] 31 Feb, 2012 [facility] [address] [id number] [place] [address] 17 Feb, 2012 [facility] [place] [facility] [address] [id number] [place] [address] 17 Feb, 2012 [facility] [address] [id number] [place] [address] 19 Jan, 2012 [facility] [address] [id number], [place] [address] Jan, [facility] [address] [id number] [place] [address] Jan, [facility] [address] [id number] [place] [address] Jan, [facility] [address] [id number] [place] [address] Dec, [facility] [address] [id number] [place] [address] Dec, [facility] [address] [id number] [place] [address] Nov, [facility] [address] [id number] [place] [address] Oct, [facility] [address] [id number] [place] [address] Oct, [facility] [address] [id number] [place] [address] Oct, [facility] [address] [id number], [place] [address] Oct, [facility] [address] [id number], [place] [address] Oct, [facility] [address] [id number], [place] [address] Sep, [facility] [address] [id number], [place] [address] Sep, [facility] [address] [id number], [place] [address] Aug, [facility] [address] [place] [id number] Aug, [facility] [address] [id number], [place] [address] Aug, [facility] [address] [id number], [place] [address] July, [facility] [address] [id number] [place] [address] July, [facility] [place] [facility] [address] [id number] [place] [address] Jun, [facility] [place] [facility] [address] [id number] [place] [address] Jun, [facility] [place] [facility] [address] [id number] [place] [address] 16 Jun, 2011 [facility] [place] [facility] [address] [id number] [place] [address] Jun, [facility] [place] [facility] [address] [id number] [place] [address] 15 Apr, 2011 [facility] [place] [facility] [address] [id number] [place] [address] 15 Apr, 2011 [facility] [place] [facility] [address] [id number] [place] [address] Apr, [facility] [place] [facility] [address] [id number] [place] [address] Mar, [facility] [place] [facility] [address] [id number] [place] [address] Mar, [facility] [place] [facility] [address] [id number] [place] [address] Mar, [facility] [place] [facility] [address] [id number] [place] [address] Mar, [facility] [place] [facility] [address] [id number] [place] [address] Mar, [facility] [place] [facility] [address] [id number] [place] [address] Jan, [facility] [place] [facility] [address] [id number] [place] [address] Jan, [facility] [place] [facility] [address] [id number] [place] [address] Jan, [facility] [place] [facility] [address] [id number] [place] [address] 17 Mar, 2010 [facility] [place] [facility] [address] [id number] [place] [address] 11 Mar, 2010 [facility] [place] [facility] [address] [id number] [place] [address] Feb, [facility] [place] [facility] [address] [id number] [place] [address] Feb, [facility] [place] [facility] [address] [id number] [place] [address] Feb, [facility] [place] [facility] [address] [id number] [place] [address] Jan, [facility] [place] [facility] [address] [id number] [place] [address] Jan, [facility] [place] [facility] [address] [id number] [place] [address] Dec, [facility] [place] [facility] [address] [id number] [place] [address] Dec, [facility] [place] [facility] [address] [id number] [place] [address] May, [facility] [place] [facility] [address] [id number] [place] [address] Apr, [facility] [place] [facility] [address] [id number] [place] [address] Feb, [facility] [place] [facility] [address] [id number] [place] [address] Feb, [facility] [place] [facility] [address] [id number] [place] [address] 30 Jan, 2009 [facility] [place] [facility] [address] [id number] [place] [address] Jan, [facility] [address] [facility] [id number] [place] [address] Jan, [facility] [address] [facility] [id number] [address] Jan, [facility] [address] [facility] [id number] [place] [address] Jan, IMMUNIZATIONS No Known Immunizations SOCIAL HISTORY Never Assessed REASON FOR VISIT Controlled Medication Refill PLAN OF CARE VITAL SIGNS MEDICATIONS Medication Instructions Dosage Frequency Start Date End Date Duration Status Hydrocodone-Acetaminophen 5-325 MG Orally every 6 hrs 1 tablet as needed 6h July, 28 days Active MS Contin 30 MG Orally every 12 hrs 1 tablet 12h July, 28 days Active RESULTS No Results PROCEDURES [...] History ED then admitted to [facility]-cardiac stepdown-chest pain 02/2010 Hospitalization History Possible DVT-sono negative 06/2010 Hospitalization History cellulitis to bilat legs
--- OUTSIDE RECORDS SUMMARY | 2018-10-04 06:39 | XMS REPORT ---
Author Author KATHY ESTHER [facility] Address [address] [place] [address] Care Team Providers Care Baked And Graphite Inspector Name Role Phone KATHYBRIAN VILLEGASY Unavailable PROBLEMS Type Condition ICD9-CM Code TEE06-MN Code Onset Dates Condition Status SNOMED Code Problem Primary osteoarthritis of both knees M17.0 Active 486193668 Problem Nocturnal hypoxia G47.34 Active 737796433 Problem Chronic prescription opiate use Z79.891 Active 804618514 Problem Pure hypercholesterolemia E78.0 Active 627350728 Problem Acute right-sided low back pain with right-sided sciatica M54.41 Active 22354995 Problem Type 2 diabetes mellitus with diabetic polyneuropathy E11.42 Active 746307848 Problem Severe major depression with psychotic features F32.3 Active 64516345 Problem Obesity, morbid, BMI 40.0-49.9 E66.01 Active 729862443 Problem Posttraumatic stress disorder F43.10 Active 40341684 Problem Primary insomnia F51.01 Active 9818441 Problem Mood disorder F39 Active 92551115 Problem History of DVT (deep vein thrombosis) Z86.718 Active 244610262 Problem Chronic pain syndrome G89.4 Active 872764194 Problem Chronic systolic (congestive) heart failure I50.22 Active 534787276 Problem Macrocytosis D75.89 Active 480437138 Problem Tobacco abuse Z72.0 Active 422169419 Problem Mild episode of recurrent major depressive disorder F33.0 Active 372692519 Problem BMI 45.0-49.9, adult Z68.42 Active 597080311 Problem Gastroesophageal reflux disease, esophagitis presence not specified K21.9 Active 373398007 Problem Non-ischemic cardiomyopathy I42.9 Active 28475612 Problem Essential hypertension I10 Active 88253904 Problem Major depressive disorder, recurrent episode, unspecified severity F33.9 Active 40357315 Problem PTSD (post-traumatic stress disorder) F43.10 Active 36117075 Problem MITCHELL treated with BiPAP G47.33 Active 92077237 Problem Chronic obstructive pulmonary disease, unspecified COPD type J44.9 Active 25148030 Problem History of weight loss surgery Z98.84 Active 124121015 ALLERGIES Substance Reaction Event Type Date Status Chantix nausea Drug Allergy July, Active ENCOUNTERS Encounter Location Date Diagnosis [place] [address], [place] [address] Nov, [facility] [id number] [place] [address] Oct, [facility] [id number] [place] [address] Oct, Mood disorder F39 ; Posttraumatic stress disorder F43.10 and BMI 45.0-49.9, adult Z68.42 [facility] [id number] [place] [address] Sep, Primary osteoarthritis of both knees M17.0 and Chronic pain syndrome G89.4 [facility] [facility] [id number] [place] [address] Sep, Mood disorder F39 and Posttraumatic stress disorder F43.10 [facility] [facility] [id number] [place] [address] Aug, Primary osteoarthritis of both knees M17.0 and Chronic pain syndrome G89.4 [place] [id number] [place] [address] July, Primary osteoarthritis of both knees M17.0 and Chronic pain syndrome G89.4 [place] [id number] [place] [address] July, Type 2 diabetes mellitus with diabetic polyneuropathy E11.42 ; Essential hypertension I10 ; Pure hypercholesterolemia E78.0 ; Chronic prescription opiate use Z79.891 ; Tobacco abuse Z72.0 ; Primary osteoarthritis of both knees M17.0 ; Primary insomnia F51.01 and BMI 45.0-49.9, adult Z68.42 [place] [id number] [place] [address] July, Medicare annual wellness visit, initial Z00.00 [...] specified K21.9 and Encounter for immunization Z23 [facility], [place] [id number] [place] [address] July, Primary osteoarthritis of both knees M17.0 and Chronic pain syndrome G89.4 [facility] [id number] [place] [address] Jun, Infection of right ear H66.91 ; Wheezing on auscultation R06.2 and BMI 45.0-49.9, adult Z68.42 [facility], [place] [id number] [place] [address] Jun, [place] [id number] [place] [address] Jun, Primary osteoarthritis of both knees M17.0 and Chronic pain syndrome G89.4 [place] [id number] [place] [address] May, [place] [id number] [place] [address] May, BMI 45.0-49.9, adult Z68.42 ; Mood disorder F39 and Posttraumatic stress disorder F43.10 [place] [address] [address] May, [place] [address] [id number] [place] [address] May, Primary osteoarthritis of both knees M17.0 and Chronic pain syndrome G89.4 [place] [address], [place] [address] May, Mood disorder F39 [facility], [place] [id number] [place] [address] Apr, Type 2 diabetes mellitus with diabetic polyneuropathy E11.42 [facility], [place] [id number] [place] [address] Apr, [facility], [place] [id number] [place] [address] Apr, Primary osteoarthritis of both knees M17.0 and Chronic pain syndrome G89.4 [facility], [place] [id number] [place] [address] Apr, Mood disorder F39 [facility], [place] [id number] [place] [address] Mar, Mood disorder F39 and Posttraumatic stress disorder F43.10 [facility], [place] [address] [place] [address] Mar, Primary osteoarthritis of both knees M17.0 and Chronic pain syndrome G89.4 [facility], [place] [address] [place] [address] Feb, Primary osteoarthritis of both knees M17.0 and Chronic pain syndrome G89.4 [facility], [place] [address] [place] [address] Feb, Mood disorder F39 [facility], [place] [address] [place] [address] Jan, 2017 Type 2 diabetes mellitus with diabetic polyneuropathy E11.42 ; Primary osteoarthritis of both knees M17.0 ; Mood disorder F39 ; Obesity, morbid, BMI 40.0-49.9 E66.01 ; Chronic prescription opiate use Z79.891 ; Acute suppurative otitis media of both ears without spontaneous rupture of tympanic membranes, recurrence not specified H66.003 and BMI 45.0-49.9, adult Z68.42 [facility], [place] [address] [place] [address] Jan, Primary osteoarthritis of both knees M17.0 and Chronic pain syndrome G89.4 [facility], [place] [id number] [place] [address] Dec, Mood disorder F39 and Posttraumatic stress disorder F43.10 [facility], [place] [id number] [place] [address] Dec, Primary osteoarthritis of both knees M17.0 and Chronic pain syndrome G89.4 [facility], [place] [id number] [place] [address] 18 Nov, 2016 Chronic pain syndrome G89.4 [facility], [place] [address] [id number] [place] [address] 15 Nov, 2016 Primary osteoarthritis of both knees M17.0 and Chronic pain syndrome G89.4 [facility], [place] [id number] [place] [address] 13 Nov, 2016 Type 2 diabetes mellitus with diabetic polyneuropathy E11.42 and Chronic pain syndrome G89.4 [facility], [place] [id number] [place] [address] 12 Nov, 2016 Posttraumatic stress disorder F43.10 and Mood disorder F39 [facility], [place] [id number] [place] [address] Oct, Chronic pain syndrome G89.4 [facility], [place] [id number] [place] [address] 16 Oct, 2016 Type 2 diabetes mellitus with diabetic polyneuropathy E11.42 ; BMI 45.0-49.9, adult Z68.42 ; Primary osteoarthritis of both knees M17.0 and Skin lesion L98.9 [facility], [place] [id number] [place] [address] 09 Oct, 2016 Chronic pain syndrome G89.4 [facility], [place] [id number] [place] [address] Sep, Chronic pain syndrome G89.4 [facility], [place] [address], [place] [address] Sep, [facility], [place] [id number] [place] [address] Sep, Chronic pain syndrome G89.4 [facility], [place] [id number] [place] [address] Aug, Chronic pain syndrome G89.4 [facility], [place] [id number] [place] [address] Aug, [facility], [place] [address] [place] [id number] [place] [address] Aug, Macrocytosis D75.89 and Pure hypercholesterolemia E78.0 [place] [address] [place] [id number] [place] [address] Aug, Pure hypercholesterolemia E78.0 [place] [id number] [place] [address] Aug, Macrocytosis D75.89 [facility], [place] [address] [place] [address] Aug, Pure hypercholesterolemia E78.0 ; Type 2 diabetes mellitus with diabetic polyneuropathy E11.42 ; MITCHELL treated with BiPAP G47.33 and Chronic pain syndrome G89.4 [place] [id number] [place] [address] Aug, [facility], [place] [address], [place] [address] Aug, Hemorrhoids, unspecified hemorrhoid type K64.9 [facility], [place] [id number] [place] [address] Aug, Chronic pain syndrome G89.4 ; Type 2 diabetes mellitus with diabetic polyneuropathy E11.42 ; Hemorrhoids, unspecified hemorrhoid type K64.9 ; Tobacco abuse Z72.0 and Primary osteoarthritis of both knees M17.0 [facility], [place] [address] [place] [address] July, Chronic pain syndrome G89.4 [facility], [place] [address] [place] [id number] [place] [address] July, [facility], [place] [id number] [place] [address] Jun, Chronic pain syndrome G89.4 [facility], [place] [id number] [place] [address] Jun, Chronic pain syndrome G89.4 [facility], [place] [id number] [place] [address] Jun, Severe major depression with psychotic features F32.3 and Posttraumatic stress disorder F43.10 [facility], [place] [id number] [place] [address] Jun, Chronic pain syndrome G89.4 [facility], [place] [id number] [place] [address] Jun, [facility], [place] [id number] [place] [address] May, Chronic pain syndrome G89.4 [facility], [place] [id number] [place] [address] May, Tobacco abuse Z72.0 [facility], [place] [id number] [place] [address] May, [facility], [place] [id number] [place] [address] Apr, Chronic pain syndrome G89.4 [facility], [place] [id number] [place] [address] Apr, [facility], [place] [id number] [place] [address] Apr, Right foot pain M79.671 [facility], [place] [address], [place] [address] Mar, Type 2 diabetes mellitus with diabetic polyneuropathy E11.42 ; MITCHELL treated with BiPAP G47.33 ; Pure hypercholesterolemia E78.0 ; Chronic pain syndrome G89.4 ; Tobacco abuse Z72.0 and Obesity, morbid, BMI 40.0-49.9 E66.01 [facility], [place] [id number] [place] [address] Mar, [facility], [place] [id number] [place] [address] Mar, [facility], [place] [id number] [place] [address] Mar, [facility], [place] [id number] [place] [address] Mar, [facility], [place] [id number] [place] [address] Mar, [facility], [place] [id number] [place] [address] Mar, Severe major depression with psychotic features F32.3 and Posttraumatic stress disorder F43.10 [facility], [place] [address], [place] [address] Mar, [facility], [place] [id number] [place] [address] Feb, [facility], [place] [address], [place] [address] Feb, [facility], [place] [id number] [place] [address] Jan, [facility], [place] [address], [place] [address] Jan, [facility], [place] [id number] [place] [address] Dec, Posttraumatic stress disorder F43.10 and Severe major depression with psychotic features F32.3 [facility], [place] [id number] [place] [address] Dec, Type 2 diabetes mellitus with diabetic polyneuropathy E11.42 ; Chronic pain syndrome G89.4 and Acute right-sided low back pain with right-sided sciatica M54.41 [facility], [place] [id number] [place] [address] Dec, [facility], [place] [id number] [place] [address] Dec, [facility], [place] [id number] [place] [address] Nov, [facility], [place] [id number] [place] [address] Nov, [facility], [place] [id number] [place] [address] Nov, [facility], [place] [id number] [place] [address] Oct, [facility], [place] [id number] [place] [address] Oct, [facility], [place] [id number] [place] [address] Sep, Dental examination Z01.20 [facility], [place] [id number] [place] [address] Sep, [facility], [place] [id number] [place] [address] Sep, Type 2 diabetes mellitus with diabetic polyneuropathy E11.42 ; Chronic pain syndrome G89.4 ; Chronic prescription opiate use Z79.891 ; Injury of right index finger, sequela S69.91XS and Anejaculation N50.8 [facility], [place] [id number] [place] [address] Aug, [facility], [place] [address], [place] [address] Aug, [facility] [address], [place] [address] Aug, Cellulitis of finger of right hand L03.011 [facility], [place] [address], [place] [address] July, [facility], [place] [address], [place] [address] July, [facility], [place] [address], [place] [address] Jun, Onychomycosis B35.1 [place] [address], [place] [address] Jun, Severe major depression with psychotic features F32.3 and Posttraumatic stress disorder F43.10 [place] [address], [place] [address] Jun, [facility], [place] [address], [place] [address] Jun, [place] [address], [place] [address] Jun, [facility], [place] [address], [place] [address] May, Type 2 diabetes mellitus with diabetic polyneuropathy E11.42 [facility], [place] [address], [place] [address] May, Type 2 diabetes mellitus with diabetic polyneuropathy E11.42 and Urinary hesitancy R39.11 [place] [address], [place] [address] May, Type 2 diabetes mellitus with diabetic polyneuropathy E11.42 ; Left hip pain M25.552 and Benign prostatic hyperplasia with lower urinary tract symptoms, unspecified morphology N40.1 [place] [address], [place] [address] May, [facility], [place] [id number] [place] [address] Apr, Severe major depression with psychotic features F32.3 and Posttraumatic stress disorder F43.10 [facility], [place] [id number] [place] [address] Apr, [facility], [place] [id number] [place] [address] Mar, [facility], [place] [id number] [place] [address] Mar, Dysuria R30.0 and Urinary hesitancy R39.11 [facility], [place] [id number] [place] [address] Mar, Onychomycosis B35.1 [facility], [place] [id number] [place] [address] Mar, [facility], [place] [id number] [place] [address] Feb, [facility], [place] [id number] [place] [address] Jan, [facility], [place] [address], [place] [address] Jan, Posttraumatic stress disorder F43.10 and Severe major depression with psychotic features F32.3 [facility], [place] [address], [place] [address] Jan, [facility], [place] [id number] [place] [address] Jan, Chronic pain syndrome G89.4 ; Type 2 diabetes mellitus with diabetic polyneuropathy E11.42 ; Decreased pedal pulses R09.89 and Paresthesia of both hands R20.2 [facility], [place] [address] [place] [address] Dec, Posttraumatic stress disorder F43.10 and Severe major depression with psychotic features F32.3 [facility], [place] [address], [place] [address] Dec, [facility], [place] [id number], [place] [address] Dec, [facility], [place] [id number] [place] [address] Dec, Onychomycosis B35.1 [facility], [place] [id number] [place] [address] Dec, [facility], [place] [id number] [place] [address] Dec, [facility], [place] [id number] [place] [address] Nov, [facility], [place] [id number] [place] [address] Oct, Depression, major, recurrent, moderate 296.32 and Posttraumatic stress disorder 309.81 [facility], [place] [id number] [place] [address] Oct, [facility], [place] [address], [place] [address] Oct, [facility], [place] [id number] [place] [address] Oct, [facility], [place] [id number] [place] [address] Sep, Posttraumatic stress disorder 309.81 and Depression, major, recurrent, moderate 296.32 [facility], [place] [id number] [place] [address] 14 Sep, 2014 [facility], [place] [address], [place] [address] Sep, Chronic airway obstruction, not elsewhere classified 496 [facility], [place] [id number] [place] [address] Sep, Onychomycosis 110.1 and DM neuro manif type II 250.60 [place] [address] [address] Sep, Chronic pain 338.29 ; Chronic airway obstruction, not elsewhere classified 496 ; Osteoarthritis of knees, bilateral 715.96 and On potassium wasting diuretic therapy V58.69 [place] [address] [address] Sep, Insect bites 919.4 ; Sinusitis 473.9 and GERD (gastroesophageal reflux disease) 530.81 [place] [address] [address] Aug, Depression, major, recurrent, moderate 296.32 and Posttraumatic stress disorder 309.[address] [address] Aug, [facility], [place] [id number] [place] [address] Aug, [facility], [place] [id number] [place] [address] Aug, [facility], [place] [id number] [place] [phone] July, Major depressive disorder, recurrent episode, moderate 296.32 and Posttraumatic stress disorder 309.81 [facility], [place] [id number] [place] [phone] July, [facility], [place] [id number] [place] [phone] July, [facility], [place] [id number] [place] [phone] July, [facility], [place] [id number] [place] [phone] July, [facility], [place] [address] [id number] 14 Jun, 2014 [facility] [place] [facility] [address] [id number] [place] [address] 13 Jun, 2014 [facility] [place] [facility] [address] [id number] [place] [address] 20 May, 2014 [facility] [place] [facility] [address] [facility] [id number] [place] [address] 20 May, 2014 [facility] [place] [facility] [address] [facility] [id number] [place] [id number] 18 May, 2014 [facility] [place] [facility] [address] [id number] [place] [id number] 18 May, 2014 [facility] [place] [facility] [address] [facility] [id number] [place] [address] 18 May, 2014 [facility] [place] [facility] [address] [facility] [id number] [place] [address] May, [facility] [place] [facility] [address] [facility] [id number] [place] [address] May, [facility] [place] [facility] [address] [facility] [id number] [place] [address] 04 May, 2014 [facility] [place] [facility] [address] [facility] [id number] [place] [address] May, [facility] [place] [facility] [address] [facility] [id number] [place] [address] Apr, 2014 [facility] [place] [facility] [address] [facility] [id number] [place] [address] Apr, 2014 [facility] [place] [facility] [address] [id number] [place] [address] Apr, 2014 [facility] [place] [facility] [address] [facility] [id number] [place] [address] Apr, 2014 [facility] [place] [facility] [address] [facility] [id number], [place] [address] 11 Apr, 2014 [facility] [place] [facility] [address] [id number] [place] [address] Apr, [facility] [place] [facility] [address] [id number] [place] [address] Apr, [facility] [place] [facility] [address] [id number] [place] [address] Apr, [facility] [place] [facility] [address] [id number] [place] [address] Apr, [facility] [place] [facility] [address] [id number] [place] [address] Mar, [facility] [place] [facility] [address] [id number] [place] [address] Mar, [facility] [place] [facility] [address] [id number] [place] [address] Mar, [facility] [place] [facility] [address] [id number] [place] [address] Mar, [facility] [place] [facility] [address] [id number] [place] [address] Mar, [facility] [place] [facility] [address] [id number] [place] [address] Mar, [facility] [place] [facility] [address] [id number] [place] [address] Mar, [facility] [place] [facility] [address] [id number] [place] [address] Mar, [facility] [place] [facility] [address] [id number] [place] [address] Mar, [facility] [place] [facility] [address] [id number] [place] [address] Mar, [facility] [place] [facility] [address] [id number] [place] [address] 14 Mar, 2014 [facility] [place] [facility] [address] [id number] [place] [address] 14 Mar, 2014 [facility] [place] [facility] [address] [id number] [place] [address] 14 Mar, 2014 [facility] [place] [facility] [address] [id number] [place] [address] 14 Mar, 2014 [facility] [place] [facility] [address] [id number] [place] [address] 14 Mar, 2014 [facility] [place] [facility] [address] [id number] [place] [address] 14 Mar, 2014 [facility] [place] [facility] [address] [id number] [place] [address] 09 Mar, 2014 [facility] [place] [facility] [address] [id number] [place] [address] 09 Mar, 2014 [facility] [place] [facility] [address] [id number] [place] [address] 16 Feb, 2014 [facility] [place] [facility] [address] [id number] [place] [address] 16 Feb, 2014 [facility] [place] [facility] [address] [id number] [place] [address] 15 Feb, 2014 [facility] [place] [facility] [address] [id number] [place] [address] 15 Feb, 2014 [facility] [place] [facility] [address] [id number] [place] [address] 15 Feb, 2014 [facility] [place] [facility] [address] [id number] [place] [address] 15 Feb, 2014 [facility] [place] [facility] [address] [id number] [place] [address] Jan, [facility] [place] [facility] [address] [id number] [place] [address] 26 Jan, 2014 [facility] [place] [facility] [address] [id number] [place] [address] 17 Jan, 2014 [facility] [place] [facility] [address] [id number] [place] [address] Jan, [facility] [place] [facility] [address] [id number] [place] [address] Jan, [facility] [place] [facility] [address] [id number] [place] [address] Jan, [facility] [place] [facility] [address] [id number] [place] [address] Jan, [facility] [place] [facility] [address] [id number] [place] [address] Jan, [facility] [place] [facility] [address] [id number] [place] [address] Jan, [facility] [place] [facility] [address] [id number] [place] [address] Jan, [facility] [place] [facility] [address] [id number] [place] [address] Dec, [facility] [place] [facility] [address] [id number] [place] [address] Dec, [facility] [place] [facility] [address] [id number] [place] [address] Dec, [facility] [place] [facility] [address] [id number] [place] [address] Dec, [facility] [place] [facility] [address] [id number] [place] [address] 16 Nov, 2013 [facility] [place] [facility] [address] [id number] [place] [address] 16 Nov, 2013 [facility] [place] [facility] [address] [id number] [place] [address] 03 Nov, 2013 [facility] [place] [facility] [address] [id number] [place] [address] 03 Sep, 2013 [facility] [place] [facility] [address] [id number] [place] [address] Nov, [facility] [place] [facility] [address] [id number] [place] [address] Nov, [facility] [place] [facility] [address] [id number] [place] [address] Oct, [facility] [place] [facility] [address] [id number] [place] [address] Oct, [facility] [place] [facility] [address] [id number] [place] [address] Oct, [facility] [place] [facility] [address] [id number] [place] [address] Oct, [facility] [place] [facility] [address] [id number] [place] [address] Sep, [facility] [place] [facility] [address] [id number] [place] [address] Sep, [facility] [place] [facility] [address] [id number] [place] [address] Sep, [facility] [place] [facility] [address] [id number] [place] [address] Sep, [facility] [place] [facility] [address] [id number] [place] [address] Sep, [facility] [place] [facility] [address] [id number] [place] [address] Sep, [facility] [place] [facility] [address] [id number] [place] [address] July, [facility] [place] [facility] [address] [id number] [place] [address] July, [facility] [place] [facility] [address] [id number] [place] [address] July, [facility] [place] [facility] [address] [id number] [place] [address] July, [facility] [place] [facility] [address] [id number] [place] [address] Jun, [facility] [place] [facility] [address] [id number] [place] [address] Jun, [facility] [place] [facility] [address] [id number] [place] [address] Jun, [facility] [place] [facility] [address] [id number] [place] [address] Jun, [facility] [place] [facility] [address] [id number] [place] [address] Jun, [facility] [place] [facility] [address] [id number] [place] [address] Jun, [facility] [place] [facility] [address] [facility] [id number] [place] [address] May, [facility] [place] [facility] [address] [facility] [id number] [place] [address] May, [facility] [place] [facility] [address] [facility] [id number] [place] [address] Apr, [facility] [place] [facility] [address] [facility] [id number] [place] [address] Apr, [facility] [place] [facility] [address] [facility] [id number] [place] [address] Apr, [facility] [place] [facility] [address] [facility] [id number] [place] [address] Apr, [facility] [place] [facility] [address] [facility] [id number] [place] [address] Apr, [facility] [place] [facility] [address] [id number] [place] [address] Apr, [facility] [place] [facility] [address] [facility] [id number] [place] [address] Apr, [facility] [place] [facility] [address] [facility] [id number] [place] [address] Mar, [facility] [place] [facility] [address] [id number] [place] [address] Mar, [facility] [place] [facility] [address] [id number] [place] [address] Mar, [facility] [place] [facility] [address] [id number] [place] [address] Mar, [facility] [place] [facility] [address] [id number] [place] [address] Mar, [facility] [place] [facility] [address] [id number] [place] [address] Mar, [facility] [place] [facility] [address] [id number] [place] [address] Mar, [facility] [place] [facility] [address] [id number] [place] [address] Mar, [facility] [place] [facility] [address] [id number] [place] [address] Feb, [facility] [place] [facility] [address] [id number] [place] [address] Feb, [facility] [place] [facility] [address] [id number] [place] [address] Feb, [facility] [place] [facility] [address] [id number], [place] [address] Feb, [facility] [place] [facility] [address] [id number], [place] [address] Feb, [facility] [place] [facility] [address] [id number] [place] [address] Feb, [facility] [place] [facility] [address] [id number], [place] [address] 06 Feb, 2013 [facility] [place] [facility] [address] [id number] [place] [address] 29 Jan, 2013 [facility] [place] [facility] [address] [id number], [place] [address] Jan, [facility] [place] [facility] [address] [id number], [place] [address] Jan, [facility] [place] [facility] [address] [id number], [place] [address] Jan, [facility] [place] [facility] [address] [id number], [place] [address] Jan, [facility] [place] [facility] [address] [id number], [place] [address] Jan, [facility] [place] [facility] [address] [id number] [place] [id number] Jan, [facility] [place] [facility] [address] [id number][place] [id number] Jan, [facility] [place] [facility] [address] [id number], [place] [address] Dec, [facility] [place] [facility] [address] [id number], [place] [address] Dec, [facility] [place] [facility] [address] [id number], [place] [address] Dec, [facility] [place] [facility] [address] [id number], [place] [address] Dec, [facility] [place] [facility] [address] [id number], [place] [address] Dec, [facility] [place] [facility] [address] [id number], [place] [address] Dec, [facility] [place] [facility] [address] [id number], [place] [address] Dec, [facility] [place] [facility] [address] [id number], [place] [address] Dec, [facility] [place] [facility] [address] [id number], [place] [address] 16 Dec, 2012 [facility] [place] [facility] [address] [id number] [place] [address] Dec, [facility] [place] [facility] [address] [id number] [place] [id number] Nov, [facility] [place] [facility] [address] [id number] [place] [id number] Nov, [facility] [address] [id number] [place] [address] 24 Nov, 2012 [facility] [address] [id number] [place] [address] 20 Nov, 2012 [facility] [address] [id number] [place] [address] Nov, [facility] [address] [id number] [place] [address] Nov, [facility] [address] [id number] [place] [address] Nov, [facility] [address] [id number] [place] [address] Nov, [facility] [address] [id number] [place] [address] Oct, [facility] [address] [id number] [place] [address] Oct, [facility] [place] [facility] [address] [id number] [place] [address] Oct, [facility] [address] [id number] [place] [address] Sep, [facility] [place] [facility] [address] [id number] [place] [address] Sep, [facility] [place] [facility] [address] [id number] [place] [address] Sep, [facility] [place] [facility] [address] [id number] [place] [address] Sep, [facility] [address] [id number] [place] [address] Sep, [facility] [place] [facility] [address] [id number] [place] [address] Aug, [facility] [place] [facility] [address] [id number] [place] [address] Aug, [facility] [place] [facility] [address] [id number] [place] [address] Aug, [facility] [place] [facility] [address] [id number] [place] [address] Aug, [facility] [place] [facility] [address] [id number] [place] [address] Aug, [facility] [place] [facility] [address] [id number] [place] [address] Aug, [facility] [place] [facility] [address] [id number] [place] [address] July, [facility] [place] [facility] [address] [id number] [place] [address] July, [facility] [place] [facility] [address] [id number], [place] [address] July, [facility] [place] [facility] [address] [id number] [place] [address] July, [facility] [place] [facility] [address] [id number], [place] [address] July, [facility] [place] [facility] [address] [id number] [place] [address] July, [facility] [place] [facility] [address] [id number] [place] [address] Jun, [facility] [place] [facility] [address] [id number], [place] [address] Jun, [facility] [place] [facility] [address] [id number], [place] [address] Jun, [facility] [address] [id number] [place] [address] Jun, [facility] [address] [id number] [place] [address] May, [facility] [address] [facility] [id number] [place] [address] May, [facility] [address] [id number] [place] [address] May, [facility] [address] [id number] [place] [address] Apr, [facility] [address] [id number] [place] [address] Mar, [facility] [address] [facility] [id number] [place] [address] Mar, [facility] [address] [id number] [place] [address] 17 Mar, 2012 [facility] [address] [facility] [id number] [place] [address] 16 Mar, 2012 [facility] [address] [facility] [id number] [place] [address] 15 Mar, 2012 [facility] [address] [id number] [place] [address] 31 Feb, 2012 [facility] [address] [id number] [place] [address] 31 Feb, 2012 [facility] [address] [id number] [place] [address] 17 Feb, 2012 [facility] [address] [id number] [place] [address] 17 Feb, 2012 [facility] [address] [facility] [id number] [place] [address] Jan, [facility] [address] [id number] [place] [address] Jan, [facility] [address] [id number] [place] [address] Jan, [facility] [place] [facility] [address] [id number] [place] [address] Jan, [facility] [address] [id number] [place] [address] Dec, [facility] [address] [id number] [place] [address] Dec, [facility] [place] [facility] [address] [id number] [place] [address] Nov, [facility] [address] [id number] [place] [address] Oct, [facility] [address] [id number] [place] [address] Oct, [facility] [address] [id number] [place] [address] Oct, [facility] [address] [id number] [place] [address] Oct, [facility] [address] [id number] [place] [address] Oct, [facility] [address] [id number] [place] [address] Sep, [facility] [address] [id number] [place] [address] Sep, [facility] [address] [id number] [place] [address] Aug, [facility] [address] [place] [id number] Aug, [facility] [address] [id number] [place] [address] Aug, [facility] [place] [facility] [address] [id number] [place] [address] July, [facility] [place] [facility] [address] [id number] [place] [address] July, [facility] [place] [facility] [address] [id number] [place] [address] Jun, [facility] [place] [facility] [address] [id number] [place] [address] Jun, [facility] [place] [facility] [address] [id number] [place] [address] Jun, [facility] [place] [facility] [address] [id number] [place] [address] Jun, [facility] [place] [facility] [address] [id number] [place] [address] Apr, [facility] [place] [facility] [address] [id number] [place] [address] Apr, [facility] [place] [facility] [address] [id number] [place] [address] Apr, [facility] [place] [facility] [address] [id number] [place] [address] Mar, [facility] [place] [facility] [address] [id number] [place] [address] Mar, [facility] [place] [facility] [address] [id number], [place] [address] Mar, [facility] [place] [facility] [address] [id number] [place] [address] Mar, [facility] [place] [facility] [address] [id number] [place] [address] Mar, [facility] [place] [facility] [address] [id number] [place] [address] Jan, [facility] [place] [facility] [address] [id number], [place] [address] 07 Jan, 2011 [facility] [address] [id number] [place] [address] 03 Jan, 2011 [facility] [place] [facility] [address] [facility] [id number], [place] [address] 17 Mar, 2010 [facility] [address] [facility] [id number] [place] [address] 11 Mar, 2010 [facility] [place] [facility] [address] [id number] [place] [address] 20 Feb, 2010 [facility] [address] [facility] [id number] [place] [address] 16 Feb, 2010 [facility] [place] [facility] [address] [facility] [id number] [place] [address] Feb, [facility] [address] [facility] [id number], [place] [address] 17 Jan, 2010 [facility] [place] [facility] [address] [facility] [id number] [place] [address] 17 Jan, 2010 [facility] [address] [id number] [place] [address] Dec, [facility] [place] [facility] [address] [facility] [id number] [place] [address] Dec, [facility] [address] [facility] [id number], [place] [address] May, [facility] [place] [facility] [address] [facility] [id number], [place] [address] 10 Apr, 2009 [facility] [place] [facility] [address] [facility] [id number], [place] [address] Feb, [facility] [place] [facility] [address] [facility] [id number], [place] [address] Feb, [facility] [place] [facility] [address] [facility] [id number], [place] [address] 30 Jan, 2009 [facility] [place] [facility] [address] [facility] [id number], [place] [address] Jan, [facility] [place] [address] [facility] [id number], [place] [address] Jan, [facility] [place] [address] [facility] [id number], [place] [address] Jan, [facility] [place] [address] [facility] [id number], [place] [address] Jan, IMMUNIZATIONS No Known Immunizations SOCIAL HISTORY Never Assessed REASON FOR VISIT Pain management (chronic) -- maranda myers PLAN OF CARE Activity Details Follow Up 3 Months Reason:DMII/Chronic pain VITAL SIGNS Height 66 in 2017-07-27 Weight 300.0 lbs 2017-07-27 Temperature 98.0 degrees Fahrenheit 2017-07-27 Heart Rate 80 bpm 2017-07-27 Respiratory Rate 22 2017-07-27 BMI 48.42 kg/m2 2017-07-27 Blood pressure systolic 136 mmHg 2017-07-27 Blood pressure diastolic 82 mmHg 2017-07-27 MEDICATIONS Medication Instructions Dosage Frequency Start Date End Date Duration Status MS Contin 30 MG Orally every 12 hrs 1 tablet 12h July, 28 days Active Invega 6 MG Orally Once a day 2 tablets 24h Active Trazodone HCl 150 MG Orally Once a day 1 tablet at bedtime 24h July, 90 days Active Nicotine 21 MG/24HR Transdermal Once a day 1 patch to skin 24h July, Aug, 42 days Active Metformin HCl 500 mg Orally Twice a day 1 tablet with meals 12h 90 days Active Ventolin HFA 108 (90 Base) MCG/ACT Inhalation every 4 hrs 2 puffs as needed 4h Mar, Active HydrOXYzine Pamoate 50 MG Orally three times a day as needed for anxiety and sleep 1-2 capsules Active Ibuprofen 800 MG TAKE ONE TABLET BY MOUTH THREE TIMES DAILY NEEDED 90 days Active Insulin Syringe 31G X 5/16 subcutaneously Once a day as directed 24h Aug, Active Pen Anthony 31G X 6 MM as directed 24h May, Active Cyclobenzaprine HCl 10 MG TAKE ONE TABLET BY MOUTH THREE TIMES DAILY NEEDED 10 Active Pataday 0.2 % Ophthalmic 2 times a day 1 drop to affected eyes 12h Mar, Active Gabapentin 600 MG TAKE TWO TABLETS BY MOUTH THREE TIMES DAILY 30 Active Prozac 40 MG Orally Once a day 1 capsule 24h 30 days Active Atorvastatin Calcium 40 MG TAKE ONE TABLET BY MOUTH ONCE DAILY. DUE FOR FASTING LABS Active Hydrocodone-Acetaminophen 5-325 MG Orally every 6 hrs 1 tablet as needed 6h July, 28 days Active Clickfine Pen Anthony 31 gauge ONE - DAILY E11.42 100 Active Victoza 18 MG/3ML Subcutaneous Once a day 1.2 mg 24h Aug, 30 days Active Prozac 10 MG Orally Once a day 1 capsule in the morning 24h Jun, Active Pantoprazole Sodium 40 MG TAKE ONE TABLET BY MOUTH ONCE DAILY 30 Active RESULTS No Results PROCEDURES Procedure Date Ordered Result Body Site GLYCATED HEMOGLOBIN TEST July 27, 2017 [facility] VISIT ESTABLISHED PATIENT July 27, 2017 INSTRUCTIONS MEDICATIONS ADMINISTERED No Known Medications [...] History ED then admitted to [facility]-cardiac stepdown-chest pain 02/2010 Hospitalization History Possible DVT-sono negative 06/2010 Hospitalization History cellulitis to bilat legs
--- OUTSIDE RECORDS SUMMARY | 2018-10-04 06:40 | XMS REPORT ---
Author Author GEOVANNI DHILLON Organization [facility] Address [address] [place] [address] Care Team Providers Care [place] Technician Name Role Phone GEOVANNI DHILLON Unavailable PROBLEMS Type Condition ICD9-CM Code EKR56-HF Code Onset Dates Condition Status SNOMED Code Problem Primary osteoarthritis of both knees M17.0 Active 489408505 Problem Nocturnal hypoxia G47.34 Active 439070309 Problem Chronic prescription opiate use Z79.891 Active 603722731 Problem Pure hypercholesterolemia E78.0 Active 573196215 Problem Acute right-sided low back pain with right-sided sciatica M54.41 Active 64923861 Problem Type 2 diabetes mellitus with diabetic polyneuropathy E11.42 Active 179060784 Problem Severe major depression with psychotic features F32.3 Active 36066653 Problem Obesity, morbid, BMI 40.0-49.9 E66.01 Active 183177878 Problem Posttraumatic stress disorder F43.10 Active 30393042 Problem Primary insomnia F51.01 Active 4553021 Problem Mood disorder F39 Active 26849116 Problem History of DVT (deep vein thrombosis) Z86.718 Active 003051105 Problem Chronic pain syndrome G89.4 Active 428216252 Problem Chronic systolic (congestive) heart failure I50.22 Active 532795756 Problem Macrocytosis D75.89 Active 592653624 Problem Tobacco abuse Z72.0 Active 143980530 Problem Mild episode of recurrent major depressive disorder F33.0 Active 091915189 Problem BMI 45.0-49.9, adult Z68.42 Active 243753763 Problem Gastroesophageal reflux disease, esophagitis presence not specified K21.9 Active 809469407 Problem Non-ischemic cardiomyopathy I42.9 Active 16016555 Problem Essential hypertension I10 Active 49536448 Problem Major depressive disorder, recurrent episode, unspecified severity F33.9 Active 17408629 Problem PTSD (post-traumatic stress disorder) F43.10 Active 19140230 Problem MITCHELL treated with BiPAP G47.33 Active 28467736 Problem Chronic obstructive pulmonary disease, unspecified COPD type J44.9 Active 09154410 Problem History of weight loss surgery Z98.84 Active 618926052 ALLERGIES No Information ENCOUNTERS Encounter Location Date Diagnosis [place] [id number] [place] [address] Nov, [place] [address] [place] [id number] [place] [address] Oct, [place] [address] [id number] [place] [address] Oct, Mood disorder F39 ; Posttraumatic stress disorder F43.10 and BMI 45.0-49.9, adult Z68.42 [place] [address] [place] [id number] [place] [address] Sep, Primary osteoarthritis of both knees M17.0 and Chronic pain syndrome G89.4 [place] [address] [place] [id number] [place] [address] Sep, Mood disorder F39 and Posttraumatic stress disorder F43.10 [place] [address] [id number] [place] [address] Aug, Primary osteoarthritis of both knees M17.0 and Chronic pain syndrome G89.4 [place] [address] [place] [address] July, Primary osteoarthritis of both knees M17.0 and Chronic pain syndrome G89.4 [place] [address] [place] [id number] [place] [address] July, Type 2 diabetes mellitus with diabetic polyneuropathy E11.42 ; Essential hypertension I10 ; Pure hypercholesterolemia E78.0 ; Chronic prescription opiate use Z79.891 ; Tobacco abuse Z72.0 ; Primary osteoarthritis of both knees M17.0 ; Primary insomnia F51.01 and BMI 45.0-49.9, adult Z68.42 [place] [address] [place] [place] [id number] [place] [address] 08 Jul, 2017 Medicare annual wellness visit, [...] specified K21.9 and Encounter for immunization Z23 [place] [address] [address] July, Primary osteoarthritis of both knees M17.0 and Chronic pain syndrome G89.4 [facility] [address] [address] Jun, Infection of right ear H66.91 ; Wheezing on auscultation R06.2 and BMI 45.0-49.9, adult Z68.42 [place] [address] [address] Jun, [place] [address] [address] Jun, Primary osteoarthritis of both knees M17.0 and Chronic pain syndrome G89.4 [place] [address] [place] [id number] [place] [address] May, [place] [address] [id number] [place] [address] May, BMI 45.0-49.9, adult Z68.42 ; Mood disorder F39 and Posttraumatic stress disorder F43.10 [place] [address] [address] May, [place] [address] [address] May, Primary osteoarthritis of both knees M17.0 and Chronic pain syndrome G89.4 [place] [address] [address] May, Mood disorder F39 [facility] [address] [address] Apr, Type 2 diabetes mellitus with diabetic polyneuropathy E11.42 [facility] [address] [address] Apr, [facility] [id number] [place] [address] Apr, Primary osteoarthritis of both knees M17.0 and Chronic pain syndrome G89.4 [facility] [address] [place] [address] Apr, Mood disorder F39 [facility] [address] [place] [address] Mar, Mood disorder F39 and Posttraumatic stress disorder F43.10 [facility] [id number] [place] [address] Mar, Primary osteoarthritis of both knees M17.0 and Chronic pain syndrome G89.4 [facility] [id number] [place] [address] Feb, Primary osteoarthritis of both knees M17.0 and Chronic pain syndrome G89.4 [facility] [address] [place] [address] Feb, Mood disorder F39 [facility] [address] [place] [address] Jan, Type 2 diabetes mellitus with diabetic [...] [facility] [address] [place] [address] Jan, Primary osteoarthritis of both knees M17.0 and Chronic pain syndrome G89.4 [facility] [address] [place] [address] Dec, Mood disorder F39 and Posttraumatic stress disorder F43.10 [facility] [address] [place] [address] Dec, Primary osteoarthritis of both knees M17.0 and Chronic pain syndrome G89.4 [facility] [address] [place] [address] 18 Nov, 2016 Chronic pain syndrome G89.4 [facility] [id number] [place] [address] 15 Nov, 2016 Primary osteoarthritis of both knees M17.0 and Chronic pain syndrome G89.4 [facility] [id number] [place] [address] Nov, Type 2 diabetes mellitus with diabetic polyneuropathy E11.42 and Chronic pain syndrome G89.4 [facility] [address] [place] [address] 12 Nov, 2016 Posttraumatic stress disorder F43.10 and Mood disorder F39 [facility] [address] [place] [address] Oct, Chronic pain syndrome G89.4 [facility] [address] [place] [address] Oct, Type 2 diabetes mellitus with diabetic polyneuropathy E11.42 ; BMI 45.0-49.9, adult Z68.42 ; Primary osteoarthritis of both knees M17.0 and Skin lesion L98.9 [facility] [address] [place] [address] Oct, Chronic pain syndrome G89.4 [facility] [address] [place] [address] Sep, Chronic pain syndrome G89.4 [facility] [address] [address] Sep, [facility] [address] [place] [id number] [place] [address] Sep, Chronic pain syndrome G89.4 [facility] [address] [place] [id number] [place] [address] Aug, Chronic pain syndrome G89.4 [facility] [address] [place] [id number] [place] [address] Aug, [facility] [address] [place] [id number] [place] [address] Aug, Macrocytosis D75.89 and Pure hypercholesterolemia E78.0 [place] [address] [place] [id number] [place] [address] Aug, Pure hypercholesterolemia E78.0 [place] [address] [place] [id number] [place] [address] Aug, Macrocytosis D75.89 [facility] [address] [place] [id number] [place] [address] Aug, Pure hypercholesterolemia E78.0 ; Type 2 diabetes mellitus with diabetic polyneuropathy E11.42 ; MITCHELL treated with BiPAP G47.33 and Chronic pain syndrome G89.4 [place] [address] [place] [address] Aug, [facility] [address] [place] [address] Aug, Hemorrhoids, unspecified hemorrhoid type K64.9 [place] [address] [place] [id number] [place] [address] Aug, Chronic pain syndrome G89.4 ; Type 2 diabetes mellitus with diabetic polyneuropathy E11.42 ; Hemorrhoids, unspecified hemorrhoid type K64.9 ; Tobacco abuse Z72.0 and Primary osteoarthritis of both knees M17.0 [facility] [address] [address] July, Chronic pain syndrome G89.4 [facility] [address] [id number] [place] [address] July, [facility] [id number] [place] [address] Jun, Chronic pain syndrome G89.4 [facility] [id number] [place] [address] Jun, Chronic pain syndrome G89.4 [facility] [id number] [place] [address] Jun, Severe major depression with psychotic features F32.3 and Posttraumatic stress disorder F43.10 [facility] [address] [id number] [place] [address] Jun, Chronic pain syndrome G89.4 [facility] [id number] [place] [address] Jun, [facility] [id number] [place] [address] May, Chronic pain syndrome G89.4 [facility] [address] [place] [address] May, Tobacco abuse Z72.0 [facility] [address] [id number] [place] [address] May, [facility] [id number] [place] [address] Apr, Chronic pain syndrome G89.4 [facility] [id number] [place] [address] Apr, [facility] [address] [place] [address] Apr, Right foot pain M79.671 [facility] [address] [address] Mar, Type 2 diabetes mellitus with diabetic polyneuropathy E11.42 ; MITCHELL treated with BiPAP G47.33 ; Pure hypercholesterolemia E78.0 ; Chronic pain syndrome G89.4 ; Tobacco abuse Z72.0 and Obesity, morbid, BMI 40.0-49.9 E66.01 [facility] [address] [id number] [place] [address] Mar, [facility] [id number] [place] [address] Mar, [facility] [id number] [place] [address] Mar, [facility] [id number] [place] [address] Mar, [facility] [id number] [place] [address] Mar, [facility] [id number] [place] [address] Mar, Severe major depression with psychotic features F32.3 and Posttraumatic stress disorder F43.10 [facility] [id number] [place] [address] Mar, [facility] [address] [address] Feb, [facility] [id number] [place] [address] Feb, [facility] [address] [place] [address] Jan, [facility] [id number] [place] [address] Jan, [facility] [address] [place] [address] Dec, Posttraumatic stress disorder F43.10 and Severe major depression with psychotic features F32.3 [facility] [id number] [place] [address] Dec, Type 2 diabetes mellitus with diabetic polyneuropathy E11.42 ; Chronic pain syndrome G89.4 and Acute right-sided low back pain with right-sided sciatica M54.41 [facility] [id number] [place] [address] Dec, [facility] [id number] [place] [address] Dec, [facility] [id number] [place] [address] Nov, [facility] [id number] [place] [address] Nov, [facility] [id number] [place] [address] Nov, [facility] [id number] [place] [address] Oct, [facility] [id number] [place] [address] Oct, [facility] [id number] [place] [address] Sep, Dental examination Z01.20 [facility] [id number] [place] [address] Sep, [facility] [id number] [place] [address] Sep, Type 2 diabetes mellitus with diabetic polyneuropathy E11.42 ; Chronic pain syndrome G89.4 ; Chronic prescription opiate use Z79.891 ; Injury of right index finger, sequela S69.91XS and Anejaculation N50.8 [facility] [id number] [place] [address] Aug, [facility] [id number] [place] [address] Aug, [facility] [address] [address] Aug, Cellulitis of finger of right hand L03.011 [facility] [address] [address] July, [facility] [address] [place] [address] July, [facility] [address] [place] [address] Jun, Onychomycosis B35.1 [facility] [id number] [place] [address] Jun, Severe major depression with psychotic features F32.3 and Posttraumatic stress disorder F43.10 [place] [id number] [place] [address] Jun, [facility] [address] [address] Jun, [facility] [address] [address] Jun, [facility] [address] [place] [address] May, Type 2 diabetes mellitus with diabetic polyneuropathy E11.42 [place] [address] [address] May, Type 2 diabetes mellitus with diabetic polyneuropathy E11.42 and Urinary hesitancy R39.11 [place] [address] [place] [address] May, Type 2 diabetes mellitus with diabetic polyneuropathy E11.42 ; Left hip pain M25.552 and Benign prostatic hyperplasia with lower urinary tract symptoms, unspecified morphology N40.1 [facility] [address] [address] May, [facility] [address] [place] [address] Apr, Severe major depression with psychotic features F32.3 and Posttraumatic stress disorder F43.10 [facility] [address] [address] Apr, [facility] [address] [place] [address] Mar, [facility] [address] [place] [address] Mar, Dysuria R30.0 and Urinary hesitancy R39.11 [facility] [address] [place] [address] Mar, Onychomycosis B35.1 [facility] [address] [place] [address] Mar, [facility] [address] [place] [address] Feb, [facility] [address] [place] [address] Jan, [facility] [address] [address] Jan, Posttraumatic stress disorder F43.10 and Severe major depression with psychotic features F32.3 [facility] [address] [place] [address] Jan, [facility] [address] [place] [address] Jan, Chronic pain syndrome G89.4 ; Type 2 diabetes mellitus with diabetic polyneuropathy E11.42 ; Decreased pedal pulses R09.89 and Paresthesia of both hands R20.2 [facility] [address] [address] Dec, Posttraumatic stress disorder F43.10 and Severe major depression with psychotic features F32.3 [facility] [address] [address] Dec, [facility] [id number] [place] [address] Dec, [facility] [id number] [place] [address] Dec, Onychomycosis B35.1 [facility] [id number] [place] [address] Dec, [facility] [id number] [place] [address] Dec, [facility] [id number] [place] [address] Nov, [facility] [id number] [place] [id number] Oct, Depression, major, recurrent, moderate 296.32 and Posttraumatic stress disorder 309.81 [facility] [id number] [address] Oct, [facility] [id number] [place] [id number] Oct, [facility] [id number] [address] Oct, [facility] [id number] [place] [id number] Sep, Posttraumatic stress disorder 309.81 and Depression, major, recurrent, moderate 296.32 [facility] [id number] [address] Sep, [facility] [id number] [place] [id number] Sep, Chronic airway obstruction, not elsewhere classified 496 [facility] [id number] [place] [phone] Sep, Onychomycosis 110.1 and DM neuro manif type II 250.60 [facility] [facility] [id number] [place] [address] Sep, Chronic pain 338.29 ; Chronic airway obstruction, not elsewhere classified 496 ; Osteoarthritis of knees, bilateral 715.96 and On potassium wasting diuretic therapy V58.69 [address] [address] Sep, Insect bites 919.4 ; Sinusitis 473.9 and GERD (gastroesophageal reflux disease) 530.81 [address] [address] Aug, Depression, major, recurrent, moderate 296.32 and Posttraumatic stress disorder 309.81 [address] [address] Aug, [facility] [address] [address] Aug, [facility] [id number] [place] [address] Aug, [facility] [id number] [place] [address] July, Major depressive disorder, recurrent episode, moderate 296.32 and Posttraumatic stress disorder 309.81 [facility] [id number] [place] [address] July, [facility] [id number] [place] [address] July, [facility] [id number] [place] [address] July, [facility] [id number] [place] [address] July, [facility] [id number] [place] [address] Jun, [facility] [place] [facility] [address] [id number] [place] [address] 13 Jun, 2014 [facility] [place] [facility] [address] [id number] [place] [address] 20 May, 2014 [facility] [place] [facility] [address] [id number] [place] [address] 20 May, 2014 [facility] [place] [facility] [address] [id number] [place] [address] 18 May, 2014 [facility] [place] [facility] [address] [id number] [place] [address] 18 May, 2014 [facility] [place] [facility] [address] [id number] [place] [address] 18 May, 2014 [facility] [place] [facility] [address] [id number] [place] [address] 18 May, 2014 [facility] [place] [facility] [address] [id number] [place] [address] May, [facility] [place] [facility] [address] [id number] [place] [address] May, [facility] [place] [facility] [address] [id number] [place] [address] May, [facility] [place] [facility] [address] [id number] [place] [address] Apr, [facility] [place] [facility] [address] [id number] [place] [address] Apr, 2014 [facility] [place] [facility] [address] [id number] [place] [address] Apr, [facility] [place] [facility] [address] [id number] [place] [address] Apr, [facility] [place] [facility] [address] [id number] [place] [address] Apr, [facility] [place] [facility] [address] [id number], [place] [address] 05 Apr, 2014 [facility] [place] [facility] [address] [id number] [place] [address] Apr, [facility] [place] [facility] [address] [id number] [place] [address] Apr, [facility] [place] [facility] [address] [id number] [place] [address] Apr, [facility] [place] [facility] [address] [id number] [place] [address] Mar, [facility] [place] [facility] [address] [id number] [place] [address] Mar, [facility] [place] [facility] [address] [id number] [place] [address] Mar, [facility] [place] [facility] [address] [id number] [place] [address] Mar, [facility] [place] [facility] [address] [id number] [place] [address] Mar, [facility] [place] [facility] [address] [id number] [place] [address] Mar, [facility] [place] [facility] [address] [facility] [id number] [place] [address] Mar, [facility] [place] [facility] [address] [id number] [place] [address] Mar, [facility] [place] [facility] [address] [id number] [place] [address] 15 Mar, 2014 [facility] [place] [facility] [address] [id number] [place] [address] Mar, [facility] [place] [facility] [address] [id number] [place] [address] 14 Mar, 2014 [facility] [place] [facility] [address] [id number] [place] [address] 14 Mar, 2014 [facility] [place] [facility] [address] [id number] [place] [address] 14 Mar, 2014 [facility] [place] [facility] [address] [id number] [place] [address] 14 Mar, 2014 [facility] [place] [facility] [address] [id number] [place] [address] 14 Mar, 2014 [facility] [place] [facility] [address] [id number] [place] [address] Mar, [facility] [place] [facility] [address] [id number] [place] [address] Mar, [facility] [place] [facility] [address] [id number] [place] [address] Mar, [facility] [place] [facility] [address] [id number] [place] [address] 16 Feb, 2014 [facility] [place] [facility] [address] [id number] [place] [address] 16 Feb, 2014 [facility] [place] [facility] [address] [id number] [place] [address] 15 Feb, 2014 [facility] [place] [facility] [address] [id number] [place] [address] 15 Feb, 2014 [facility] [place] [facility] [address] [id number] [place] [address] 15 Feb, 2014 [facility] [place] [facility] [address] [id number] [place] [address] 15 Feb, 2014 [facility] [place] [facility] [address] [id number] [place] [address] Jan, [facility] [place] [facility] [address] [id number] [place] [address] Jan, [facility] [place] [facility] [address] [id number] [place] [address] 17 Jan, 2014 [facility] [place] [facility] [address] [id number] [place] [address] Jan, [facility] [place] [facility] [address] [id number] [place] [address] Jan, [facility] [place] [facility] [address] [id number] [place] [address] Jan, [facility] [place] [facility] [address] [id number] [place] [address] Jan, [facility] [place] [facility] [address] [id number] [place] [address] Jan, [facility] [place] [facility] [address] [id number] [place] [address] Jan, [facility] [place] [facility] [address] [id number] [place] [address] Jan, [facility] [place] [facility] [address] [id number] [place] [address] Dec, [facility] [place] [facility] [address] [id number] [place] [address] Dec, [facility] [place] [facility] [address] [id number] [place] [address] Dec, [facility] [place] [facility] [address] [id number] [place] [address] Dec, [facility] [place] [facility] [address] [id number], [place] [address] 16 Nov, 2013 [facility] [place] [facility] [address] [id number], [place] [address] 16 Nov, 2013 [facility] [place] [facility] [address] [id number] [place] [address] 03 Nov, 2013 [facility] [place] [facility] [address] [id number] [place] [address] 03 Nov, 2013 [facility] [place] [facility] [address] [id number] [place] [address] 03 Nov, 2013 [facility] [place] [facility] [address] [id number] [place] [address] Nov, [facility] [place] [facility] [address] [id number] [place] [address] Oct, [facility] [place] [facility] [address] [id number] [place] [address] Oct, [facility] [place] [facility] [address] [id number] [place] [address] Oct, [facility] [place] [facility] [address] [id number] [place] [address] Oct, [facility] [place] [facility] [address] [id number] [place] [address] Sep, [facility] [place] [facility] [address] [id number] [place] [address] Sep, [facility] [place] [facility] [address] [id number] [place] [address] Sep, [facility] [place] [facility] [address] [id number] [place] [address] Sep, [facility] [place] [facility] [address] [id number] [place] [address] Sep, [facility] [place] [place] [facility] [address] [id number] [place] [address] Sep, [facility] [place] [facility] [address] [id number] [place] [address] July, [facility] [place] [facility] [address] [id number] [place] [address] July, [facility] [place] [facility] [address] [id number] [place] [address] July, [facility] [place] [facility] [address] [id number] [place] [address] July, [facility] [place] [facility] [address] [id number] [place] [address] Jun, [facility] [place] [facility] [address] [id number] [place] [address] Jun, [facility] [place] [facility] [address] [id number] [place] [address] Jun, [facility] [place] [facility] [address] [id number] [place] [address] Jun, [facility] [place] [facility] [address] [id number] [place] [address] Jun, [facility] [place] [facility] [address] [id number] [place] [address] Jun, [facility] [place] [facility] [address] [id number] [place] [address] May, [facility] [place] [facility] [address] [facility] [id number] [place] [address] May, [facility] [place] [facility] [address] [id number] [place] [address] Apr, [facility] [place] [facility] [address] [id number] [place] [address] Apr, [facility] [place] [facility] [address] [facility] [id number] [place] [address] Apr, [facility] [place] [facility] [address] [id number] [place] [address] Apr, [facility] [place] [facility] [address] [id number] [place] [address] Apr, [facility] [place] [facility] [address] [id number] [place] [address] Apr, [facility] [place] [facility] [address] [facility] [id number] [place] [address] Apr, [facility] [place] [facility] [address] [facility] [id number] [place] [address] Mar, [facility] [place] [facility] [address] [id number] [place] [address] Mar, [facility] [address] [id number] [place] [address] Mar, [facility] [address] [id number] [place] [address] Mar, [facility] [address] [id number] [place] [address] Mar, [facility] [address] [id number] [place] [address] Mar, [facility] [address] [id number] [place] [address] Mar, [facility] [address] [id number] [place] [address] Mar, [facility] [address] [id number] [place] [address] Feb, [facility] [address] [id number] [place] [address] Feb, [facility] [address] [id number] [place] [address] Feb, [facility] [address] [id number] [place] [address] Feb, [facility] [place] [place] [facility] [address] [id number] [place] [address] Feb, [facility] [address] [id number] [place] [address] Feb, [facility] [place] [facility] [address] [id number] [place] [address] Feb, [facility] [place] [facility] [address] [id number] [place] [address] Jan, [facility] [address] [id number] [place] [address] Jan, [facility] [place] [facility] [address] [id number] [place] [address] Jan, [facility] [place] [facility] [address] [id number] [place] [address] Jan, [facility] [place] [facility] [address] [id number] [place] [address] Jan, [facility] [place] [facility] [address] [id number] [place] [address] Jan, [facility] [place] [facility] [address] [id number] [place] [id number] Jan, [facility] [place] [facility] [address] [id number] [place] [id number] Jan, [facility] [place] [facility] [address] [id number] [place] [address] Dec, [facility] [place] [facility] [address] [id number], [place] [address] Dec, [facility] [place] [facility] [address] [id number] [place] [address] Dec, [facility] [place] [facility] [address] [id number], [place] [address] Dec, [facility] [place] [facility] [address] [id number] [place] [address] Dec, [facility] [place] [facility] [address] [id number], [place] [address] Dec, [facility] [place] [facility] [address] [id number], [place] [address] Dec, [facility] [place] [facility] [address] [id number], [place] [address] Dec, [facility] [place] [facility] [address] [id number], [place] [address] 16 Dec, 2012 [facility] [place] [facility] [address] [id number], [place] [address] Dec, [facility] [place] [facility] [address] [id number] [place] [id number] Nov, [facility] [place] [facility] [address] [id number][place] [id number] Nov, [facility] [address] [id number], [place] [address] 24 Nov, 2012 [facility] [place] [facility] [address] [id number], [place] [address] 20 Nov, 2012 [facility] [address] [id number] [place] [address] Nov, [facility] [address] [id number], [place] [address] Nov, [facility] [address] [id number], [place] [address] Nov, [facility] [address] [id number], [place] [address] Nov, [facility] [address] [id number], [place] [address] Oct, [facility] [place] [facility] [address] [id number], [place] [address] Oct, [facility] [place] [facility] [address] [id number], [place] [address] Oct, [facility] [place] [facility] [address] [id number], [place] [address] Sep, [facility] [place] [facility] [address] [id number], [place] [address] Sep, [facility] [place] [facility] [address] [id number], [place] [address] Sep, [facility] [place] [facility] [address] [id number], [place] [address] Sep, [facility] [place] [facility] [address] [id number] [place] [address] Sep, [facility] [address] [id number] [place] [address] Aug, [facility] [address] [id number] [place] [address] Aug, [facility] [address] [id number] [place] [address] Aug, [facility] [address] [id number] [place] [address] Aug, [facility] [address] [id number] [place] [address] Aug, [facility] [address] [id number] [place] [address] Aug, [facility] [address] [id number] [place] [address] July, [facility] [address] [id number] [place] [address] July, [facility] [address] [id number] [place] [address] July, [facility] [address] [id number] [place] [address] July, [facility] [address] [id number] [place] [address] July, [facility] [place] [facility] [address] [id number] [place] [address] July, [facility] [place] [facility] [address] [id number] [place] [address] Jun, [facility] [place] [facility] [address] [id number] [place] [address] Jun, [facility] [address] [id number] [place] [address] Jun, [facility] [place] [facility] [address] [id number] [place] [address] Jun, [facility] [address] [id number] [place] [address] May, [facility] [address] [id number] [place] [address] 15 May, 2012 [facility] [address] [id number] [place] [address] 06 May, 2012 [facility] [address] [id number] [place] [address] Apr, [facility] [address] [id number] [place] [address] Mar, [facility] [address] [id number] [place] [address] Mar, [facility] [address] [id number] [place] [address] 17 Mar, 2012 [facility] [address] [id number] [place] [address] 16 Mar, 2012 [facility] [address] [id number] [place] [address] 15 Mar, 2012 [facility] [address] [id number] [place] [address] Feb, [facility] [address] [id number] [place] [address] 31 Feb, 2012 [facility] [address] [id number] [place] [address] 17 Feb, 2012 [facility] [place] [facility] [address] [id number] [place] [address] 17 Feb, 2012 [facility] [address] [id number] [place] [address] 19 Jan, 2012 [facility] [address] [id number] [address] Jan, [facility] [address] [id number] [place] [address] Jan, [facility] [address] [id number] [place] [address] Jan, [facility] [address] [id number] [place] [address] Dec, [facility] [address] [id number] [place] [address] Dec, [facility] [address] [id number] [place] [address] Nov, [facility] [address] [id number] [place] [address] Oct, [facility] [address] [id number] [place] [address] Oct, [facility] [address] [id number] [place] [address] Oct, [facility] [address] [id number], [place] [address] Oct, [facility] [address] [id number], [place] [address] Oct, [facility] [address] [id number], [place] [address] Sep, [facility] [address] [id number], [place] [address] Sep, [facility] [address] [id number], [place] [address] Aug, [facility] [address] [place] [id number] Aug, [facility] [address] [id number], [place] [address] Aug, [facility] [address] [id number], [place] [address] July, [facility] [address] [id number] [place] [address] July, [facility] [place] [facility] [address] [id number] [place] [address] Jun, [facility] [place] [facility] [address] [id number] [place] [address] Jun, [facility] [place] [facility] [address] [id number] [place] [address] 16 Jun, 2011 [facility] [place] [facility] [address] [id number] [place] [address] Jun, [facility] [place] [facility] [address] [id number] [place] [address] 15 Apr, 2011 [facility] [place] [facility] [address] [id number] [place] [address] 15 Apr, 2011 [facility] [place] [facility] [address] [id number] [place] [address] Apr, [facility] [place] [facility] [address] [id number] [place] [address] Mar, [facility] [place] [facility] [address] [id number] [place] [address] Mar, [facility] [place] [facility] [address] [id number] [place] [address] Mar, [facility] [place] [facility] [address] [id number] [place] [address] Mar, [facility] [place] [facility] [address] [id number] [place] [address] Mar, [facility] [place] [facility] [address] [id number] [place] [address] Jan, [facility] [place] [facility] [address] [id number] [place] [address] Jan, [facility] [place] [facility] [address] [id number] [place] [address] Jan, [facility] [place] [facility] [address] [id number] [place] [address] 17 Mar, 2010 [facility] [place] [facility] [address] [id number] [place] [address] 11 Mar, 2010 [facility] [place] [facility] [address] [id number] [place] [address] Feb, [facility] [place] [facility] [address] [id number] [place] [address] Feb, [facility] [place] [facility] [address] [id number] [place] [address] Feb, [facility] [place] [facility] [address] [id number] [place] [address] Jan, [facility] [place] [facility] [address] [id number] [place] [address] Jan, [facility] [place] [facility] [address] [id number] [place] [address] Dec, [facility] [place] [facility] [address] [id number] [place] [address] Dec, [facility] [place] [facility] [address] [id number] [place] [address] May, [facility] [place] [facility] [address] [id number] [place] [address] Apr, [facility] [place] [facility] [address] [id number] [place] [address] Feb, [facility] [place] [facility] [address] [id number] [place] [address] Feb, [facility] [place] [facility] [address] [id number] [place] [address] 30 Jan, 2009 [facility] [place] [facility] [address] [id number] [place] [address] Jan, [facility] [address] [facility] [id number] [place] [address] Jan, [facility] [address] [facility] [id number], [place] [address] Jan, [facility] [address] [facility] [id number] [place] [address] Jan, IMMUNIZATIONS No Known Immunizations SOCIAL HISTORY [...]
--- OUTSIDE RECORDS SUMMARY | 2018-10-04 06:41 | XMS REPORT ---
Author Author VIVIANE FREDERICK [facility] Address [address] [place] [address] Phone Unavailable Care Team Providers Care Knifeman Name Role Phone VIVIANE FREDERICK Unavailable Unavailable PROBLEMS Type Condition ICD9-CM Code WJA12-KG Code Onset Dates Condition Status SNOMED Code Problem Primary osteoarthritis of both knees M17.0 Active 061922289 Problem Nocturnal hypoxia G47.34 Active 397942354 Problem Chronic prescription opiate use Z79.891 Active 228027926 Problem Pure hypercholesterolemia E78.0 Active 453067130 Problem Acute right-sided low back pain with right-sided sciatica M54.41 Active 62917046 Problem Type 2 diabetes mellitus with diabetic polyneuropathy E11.42 Active 984387526 Problem Severe major depression with psychotic features F32.3 Active 09233845 Problem Obesity, morbid, BMI 40.0-49.9 E66.01 Active 950692973 Problem Posttraumatic stress disorder F43.10 Active 35633450 Problem Primary insomnia F51.01 Active 5996502 Problem Mood disorder F39 Active 32486861 Problem History of DVT (deep vein thrombosis) Z86.718 Active 810264705 Problem Chronic pain syndrome G89.4 Active 747217288 Problem Chronic systolic (congestive) heart failure I50.22 Active 832985415 Problem Macrocytosis D75.89 Active 236729484 Problem Tobacco abuse Z72.0 Active 242859050 Problem Mild episode of recurrent major depressive disorder F33.0 Active 978749622 Problem BMI 45.0-49.9, adult Z68.42 Active 077601896 Problem Gastroesophageal reflux disease, esophagitis presence not specified K21.9 Active 212586076 Problem Non-ischemic cardiomyopathy I42.9 Active 14146633 Problem Essential hypertension I10 Active 68777012 Problem Major depressive disorder, recurrent episode, unspecified severity F33.9 Active 46058632 Problem PTSD (post-traumatic stress disorder) F43.10 Active 97943043 Problem MITCHELL treated with BiPAP G47.33 Active 55021024 Problem Chronic obstructive pulmonary disease, unspecified COPD type J44.9 Active 81050014 Problem History of weight loss surgery Z98.84 Active 552906975 ALLERGIES Substance Reaction Event Type Date Status Chantix nausea Drug Allergy Jun, Active ENCOUNTERS Encounter Location Date Diagnosis [facility] [id number] [place] [address] Oct, [place] [id number] [place] [address] Oct, [place] [id number] [place] [address] Sep, Primary osteoarthritis of both knees M17.0 and Chronic pain syndrome G89.4 [place] [facility] [id number] [place] [address] Sep, Mood disorder F39 and Posttraumatic stress disorder F43.10 [place] [id number] [place] [address] Aug, Primary osteoarthritis of both knees M17.0 and Chronic pain syndrome G89.4 [place] [id number] [place] [address] July, Primary osteoarthritis of both knees M17.0 and Chronic pain syndrome G89.4 [place] [id number] [place] [address] July, Type 2 diabetes mellitus with diabetic polyneuropathy E11.42 ; Essential hypertension I10 ; Pure hypercholesterolemia E78.0 ; Chronic prescription opiate use Z79.891 ; Tobacco abuse Z72.0 ; Primary osteoarthritis of both knees M17.0 ; Primary insomnia F51.01 and BMI 45.0-49.9, adult Z68.42 [place] [id number] [place] [address] July, Medicare annual wellness visit, initial Z00.00 [...] specified K21.9 and Encounter for immunization Z23 [facility] [id number] [place] [address] July, Primary osteoarthritis of both knees M17.0 and Chronic pain syndrome G89.4 [facility] [id number] [place] [address] Jun, Infection of right ear H66.91 ; Wheezing on auscultation R06.2 and BMI 45.0-49.9, adult Z68.42 [facility] [id number] [place] [address] Jun, [facility] [id number] [place] [address] Jun, Primary osteoarthritis of both knees M17.0 and Chronic pain syndrome G89.4 [facility] [id number] [place] [address] May, [facility] [id number] [place] [address] May, BMI 45.0-49.9, adult Z68.42 ; Mood disorder F39 and Posttraumatic stress disorder F43.10 [facility] [id number] [place] [address] May, [facility] [id number] [place] [address] May, Primary osteoarthritis of both knees M17.0 and Chronic pain syndrome G89.4 [facility] [id number] [place] [address] May, Mood disorder F39 [facility] [id number] [place] [address] 07 Feb, 2018 Type 2 diabetes mellitus with diabetic polyneuropathy E11.42 [facility] [id number] [place] [address] Apr, [facility] [id number] [place] [address] Apr, Primary osteoarthritis of both knees M17.0 and Chronic pain syndrome G89.4 [facility] [id number] [place] [address] Apr, Mood disorder F39 [facility] [id number] [place] [address] Mar, Mood disorder F39 and Posttraumatic stress disorder F43.10 [facility] [id number] [place] [address] Mar, Primary osteoarthritis of both knees M17.0 and Chronic pain syndrome G89.4 [facility] [id number] [place] [address] Feb, Primary osteoarthritis of both knees M17.0 and Chronic pain syndrome G89.4 [facility] [id number] [place] [address] Feb, Mood disorder F39 [facility] [id number] [place] [address] Jan, Type 2 diabetes mellitus with diabetic polyneuropathy E11.42 ; Primary osteoarthritis of both knees M17.0 ; Mood disorder F39 ; Obesity, morbid, BMI 40.0-49.9 E66.01 ; Chronic prescription opiate use Z79.891 ; Acute suppurative otitis media of both ears without spontaneous rupture of tympanic membranes, recurrence not specified H66.003 and BMI 45.0-49.9, adult Z68.42 [facility] [id number] [place] [address] Jan, Primary osteoarthritis of both knees M17.0 and Chronic pain syndrome G89.4 [facility] [id number] [place] [address] Dec, Mood disorder F39 and Posttraumatic stress disorder F43.10 [facility] [id number] [place] [address] Dec, Primary osteoarthritis of both knees M17.0 and Chronic pain syndrome G89.4 [facility] [address] [address] 18 Nov, 2016 Chronic pain syndrome G89.4 [facility] [id number] [place] [address] 15 Nov, 2016 Primary osteoarthritis of both knees M17.0 and Chronic pain syndrome G89.4 [facility] [id number] [place] [address] 13 Nov, 2016 Type 2 diabetes mellitus with diabetic polyneuropathy E11.42 and Chronic pain syndrome G89.4 [facility] [id number] [place] [address] 12 Nov, 2016 Posttraumatic stress disorder F43.10 and Mood disorder F39 [facility] [id number] [place] [address] Oct, Chronic pain syndrome G89.4 [facility] [id number] [place] [address] 16 Oct, 2016 Type 2 diabetes mellitus with diabetic polyneuropathy E11.42 ; BMI 45.0-49.9, adult Z68.42 ; Primary osteoarthritis of both knees M17.0 and Skin lesion L98.9 [facility] [address] [address] Oct, Chronic pain syndrome G89.4 [facility] [id number] [place] [address] Sep, Chronic pain syndrome G89.4 [facility] [address] [address] Sep, [facility] [id number] [place] [address] Sep, Chronic pain syndrome G89.4 [facility] [id number] [place] [address] Aug, Chronic pain syndrome G89.4 [facility] [id number] [place] [address] Aug, [facility] [id number] [place] [address] Aug, Macrocytosis D75.89 and Pure hypercholesterolemia E78.0 [facility] [id number] [place] [address] Aug, Pure hypercholesterolemia E78.0 [facility] [id number] [place] [address] Aug, Macrocytosis D75.89 [facility] [id number] [place] [address] Aug, Pure hypercholesterolemia E78.0 ; Type 2 diabetes mellitus with diabetic polyneuropathy E11.42 ; MITCHELL treated with BiPAP G47.33 and Chronic pain syndrome G89.4 [facility] [id number] [place] [address] Aug, [facility] [id number] [place] [address] Aug, Hemorrhoids, unspecified hemorrhoid type K64.9 [facility] [id number] [place] [address] Aug, Chronic pain syndrome G89.4 ; Type 2 diabetes mellitus with diabetic polyneuropathy E11.42 ; Hemorrhoids, unspecified hemorrhoid type K64.9 ; Tobacco abuse Z72.0 and Primary osteoarthritis of both knees M17.0 [facility] [id number] [place] [address] July, Chronic pain syndrome G89.4 [facility] [id number] [place] [address] July, [facility] [id number] [place] [address] Jun, Chronic pain syndrome G89.4 [facility] [id number] [place] [address] Jun, Chronic pain syndrome G89.4 [facility] [id number] [place] [address] Jun, Severe major depression with psychotic features F32.3 and Posttraumatic stress disorder F43.10 [facility] [id number] [place] [address] Jun, Chronic pain syndrome G89.4 [facility] [id number] [place] [address] Jun, [facility] [id number] [place] [address] May, Chronic pain syndrome G89.4 [facility] [id number] [place] [address] May, Tobacco abuse Z72.0 [facility] [id number] [place] [address] May, [facility] [id number] [place] [address] Apr, Chronic pain syndrome G89.4 [facility] [id number] [place] [address] Apr, [facility] [id number] [place] [address] Apr, Right foot pain M79.671 [facility] [id number] [place] [address] Mar, Type 2 diabetes mellitus with diabetic polyneuropathy E11.42 ; MITCHELL treated with BiPAP G47.33 ; Pure hypercholesterolemia E78.0 ; Chronic pain syndrome G89.4 ; Tobacco abuse Z72.0 and Obesity, morbid, BMI 40.0-49.9 E66.01 [facility] [id number] [place] [address] Mar, [facility] [id number] [address] Mar, [facility] [id number] [place] [address] Mar, [facility] [id number] [place] [address] Mar, [facility] [id number] [place] [address] Mar, [facility] [id number] [place] [address] Mar, Severe major depression with psychotic features F32.3 and Posttraumatic stress disorder F43.10 [facility] [address] [address] Mar, [facility] [id number] [place] [address] Feb, [facility] [address] [address] Feb, [facility] [address] [address] Jan, [facility] [address] [address] Jan, [facility] [address] [address] Dec, Posttraumatic stress disorder F43.10 and Severe major depression with psychotic features F32.3 [facility] [address] [address] Dec, Type 2 diabetes mellitus with diabetic polyneuropathy E11.42 ; Chronic pain syndrome G89.4 and Acute right-sided low back pain with right-sided sciatica M54.41 [facility] [address] [address] Dec, [facility] [id number] [place] [address] Dec, [facility] [id number] [place] [address] Nov, [facility] [id number] [place] [address] Nov, [facility] [id number] [place] [address] Nov, [facility] [id number] [place] [address] Oct, [facility] [id number] [place] [address] Oct, [facility] [id number] [place] [address] Sep, Dental examination Z01.20 [facility] [id number] [place] [address] Sep, [facility] [id number] [place] [address] Sep, Type 2 diabetes mellitus with diabetic polyneuropathy E11.42 ; Chronic pain syndrome G89.4 ; Chronic prescription opiate use Z79.891 ; Injury of right index finger, sequela S69.91XS and Anejaculation N50.8 [facility] [id number] [place] [address] Aug, [facility] [id number] [place] [address] Aug, [facility] [id number] [place] [address] Aug, Cellulitis of finger of right hand L03.011 [facility] [address] [address] July, [facility] [id number] [place] [address] July, [facility] [id number] [place] [address] Jun, Onychomycosis B35.1 [facility] [id number] [place] [address] Jun, Severe major depression with psychotic features F32.3 and Posttraumatic stress disorder F43.10 [facility] [id number] [place] [address] Jun, [facility] [id number] [place] [address] Jun, [facility] [id number] [place] [address] Jun, [facility] [id number] [place] [address] May, Type 2 diabetes mellitus with diabetic polyneuropathy E11.42 [facility] [address] [address] May, Type 2 diabetes mellitus with diabetic polyneuropathy E11.42 and Urinary hesitancy R39.11 [facility] [address] [address] May, Type 2 diabetes mellitus with diabetic polyneuropathy E11.42 ; Left hip pain M25.552 and Benign prostatic hyperplasia with lower urinary tract symptoms, unspecified morphology N40.1 [facility] [address] [address] May, [facility] [address] [address] Apr, Severe major depression with psychotic features F32.3 and Posttraumatic stress disorder F43.10 [facility] [address] [address] 08 Apr, 2015 [facility] [id number] [place] [address] Mar, [facility] [id number] [place] [address] Mar, Dysuria R30.0 and Urinary hesitancy R39.11 [facility] [id number] [place] [address] Mar, Onychomycosis B35.1 [facility] [id number] [place] [address] Mar, [facility] [id number] [place] [address] Feb, [facility] [id number] [place] [address] Jan, [facility] [id number] [place] [address] Jan, Posttraumatic stress disorder F43.10 and Severe major depression with psychotic features F32.3 [facility] [address] [address] Jan, [facility] [id number] [place] [address] Jan, Chronic pain syndrome G89.4 ; Type 2 diabetes mellitus with diabetic polyneuropathy E11.42 ; Decreased pedal pulses R09.89 and Paresthesia of both hands R20.2 [facility] [id number] [place] [address] Dec, Posttraumatic stress disorder F43.10 and Severe major depression with psychotic features F32.3 [facility] [address] [address] Dec, [facility] [id number] [address] Dec, [facility] [id number] [place] [address] Dec, Onychomycosis B35.1 [facility] [id number] [place] [address] Dec, [facility] [id number] [place] [address] Dec, [facility] [id number] [place] [address] Nov, [facility] [id number] [place] [address] Oct, Depression, major, recurrent, moderate 296.32 and Posttraumatic stress disorder 309.81 [facility] [id number] [place] [address] Oct, [facility] [id number] [place] [address] Oct, [facility] [id number] [place] [address] Oct, [facility] [id number] [place] [address] Sep, Posttraumatic stress disorder 309.81 and Depression, major, recurrent, moderate 296.32 [facility] [id number] [place] [address] Sep, [facility] [id number] [place] [address] Sep, Chronic airway obstruction, not elsewhere classified 496 [facility] [id number] [place] [address] Sep, Onychomycosis 110.1 and DM neuro manif type II 250.60 [facility] [id number] [place] [address] Sep, Chronic pain 338.29 ; Chronic airway obstruction, not elsewhere classified 496 ; Osteoarthritis of knees, bilateral 715.96 and On potassium wasting diuretic therapy V58.69 [facility] [id number] [place] [address] Sep, Insect bites 919.4 ; Sinusitis 473.9 and GERD (gastroesophageal reflux disease) 530.81 [facility] [address] [address] Aug, Depression, major, recurrent, moderate 296.32 and Posttraumatic stress disorder 309.81 [facility] [address] [address] Aug, [facility] [address] [address] Aug, [facility] [id number] [place] [address] Aug, [facility] [id number] [place] [address] July, Major depressive disorder, recurrent episode, moderate 296.32 and Posttraumatic stress disorder 309.81 [facility] [id number] [place] [address] July, [facility] [id number] [place] [phone] July, [facility] [id number] [place] [phone] July, [facility] [id number] [place] [phone] July, [facility] [id number] [place] [phone] Jun, [facility] [id number] [place] [id number] Jun, [facility] [id number] [place] [phone] May, [facility] [place] [facility] [address] [id number] [place] [address] May, [facility] [place] [facility] [address] [id number] [place] [address] May, [facility] [place] [facility] [address] [facility] [id number] [place] [id number] May, [facility] [place] [facility] [address] [id number] [place] [address] May, [facility] [place] [facility] [address] [id number] [place] [address] May, [facility] [place] [facility] [address] [facility] [id number] [place] [id number] May, [facility] [place] [facility] [address] [facility] [id number] [place] [address] May, [facility] [place] [facility] [address] [facility] [id number] [place] [address] May, [facility] [place] [facility] [address] [facility] [id number] [place] [address] Apr, 2014 [facility] [place] [facility] [address] [facility] [id number] [address] Apr, 2014 [facility] [place] [facility] [address] [facility] [id number] [address] Apr, 2014 [facility] [place] [facility] [address] [facility] [id number] [address] Apr, 2014 [facility] [place] [facility] [address] [facility] [id number] [place] [address] Apr, 2014 [facility] [place] [facility] [address] [facility] [id number] [address] Apr, 2014 [facility] [place] [facility] [address] [facility] [id number] [place] [address] Apr, [facility] [place] [facility] [address] [id number] [place] [address] Apr, [facility] [place] [facility] [address] [id number] [place] [address] Apr, [facility] [place] [facility] [address] [id number] [place] [address] Mar, [facility] [place] [facility] [address] [id number] [place] [address] Mar, [facility] [place] [facility] [address] [id number] [place] [address] Mar, [facility] [place] [facility] [address] [id number] [place] [address] Mar, [facility] [place] [facility] [address] [id number] [place] [address] Mar, [facility] [place] [facility] [address] [id number] [place] [address] Mar, [facility] [place] [facility] [address] [id number] [place] [address] Mar, [facility] [place] [facility] [address] [id number] [place] [address] Mar, [facility] [place] [facility] [address] [id number] [place] [address] Mar, [facility] [place] [facility] [address] [id number] [address] 15 Mar, 2014 [facility] [place] [facility] [address] [id number] [place] [address] Mar, [facility] [place] [facility] [address] [id number] [place] [address] 14 Mar, 2014 [facility] [place] [facility] [address] [id number] [place] [address] 14 Mar, 2014 [facility] [place] [facility] [address] [id number] [place] [address] 14 Mar, 2014 [facility] [place] [facility] [address] [id number] [place] [address] 14 Mar, 2014 [facility] [place] [facility] [address] [id number] [place] [address] 14 Mar, 2014 [facility] [place] [facility] [address] [facility] [id number] [place] [address] 09 Mar, 2014 [facility] [place] [facility] [address] [id number] [place] [address] 09 Mar, 2014 [facility] [place] [facility] [address] [id number] [place] [address] 16 Feb, 2014 [facility] [place] [facility] [address] [id number] [place] [address] 16 Feb, 2014 [facility] [place] [facility] [address] [facility] [id number] [place] [address] 15 Feb, 2014 [facility] [place] [facility] [address] [id number] [place] [address] 15 Feb, 2014 [facility] [place] [facility] [address] [id number] [place] [address] 15 Feb, 2014 [facility] [place] [facility] [address] [facility] [id number] [place] [address] 15 Feb, 2014 [facility] [place] [facility] [address] [id number] [place] [address] Jan, [facility] [place] [facility] [address] [id number] [place] [address] Jan, [facility] [place] [facility] [address] [id number] [place] [address] 17 Jan, 2014 [facility] [place] [facility] [address] [id number] [place] [address] 17 Jan, 2014 [facility] [place] [facility] [address] [facility] [id number] [place] [address] 12 Jan, 2014 [facility] [place] [facility] [address] [id number] [place] [address] Jan, [facility] [place] [facility] [address] [id number] [place] [address] Jan, [facility] [place] [facility] [address] [id number] [place] [address] Jan, [facility] [place] [facility] [address] [id number] [place] [address] Jan, [facility] [place] [facility] [address] [id number] [place] [address] Jan, [facility] [place] [facility] [address] [id number] [place] [address] Dec, [facility] [place] [facility] [address] [id number] [place] [address] Dec, [facility] [place] [facility] [address] [id number] [place] [address] Dec, [facility] [place] [facility] [address] [id number] [place] [address] Dec, [facility] [place] [facility] [address] [id number] [place] [address] 16 Nov, 2013 [facility] [place] [facility] [address] [id number] [place] [address] 16 Nov, 2013 [facility] [place] [facility] [address] [id number] [place] [address] Nov, 2013 [facility] [place] [facility] [address] [id number] [place] [address] Nov, 2013 [facility] [place] [facility] [address] [id number] [place] [address] Nov, 2013 [facility] [place] [facility] [address] [id number] [place] [address] Nov, 2013 [facility] [place] [facility] [address] [id number] [place] [address] Oct, [facility] [place] [facility] [address] [id number] [place] [address] Oct, [facility] [place] [facility] [address] [id number] [place] [address] Oct, [facility] [place] [facility] [address] [id number] [place] [address] Oct, [facility] [place] [facility] [address] [id number] [place] [address] Sep, [facility] [place] [facility] [address] [id number] [place] [address] Sep, [facility] [place] [facility] [address] [id number] [place] [address] Sep, [facility] [place] [facility] [address] [id number] [place] [address] Sep, [facility] [place] [facility] [address] [id number] [place] [address] Sep, [facility] [place] [facility] [address] [id number] [place] [address] Sep, [facility] [place] [facility] [address] [id number] [place] [address] July, [facility] [place] [facility] [address] [id number] [place] [address] July, [facility] [place] [facility] [address] [id number] [place] [address] July, [facility] [place] [facility] [address] [id number] [place] [address] July, [facility] [place] [facility] [address] [id number] [place] [address] Jun, [facility] [place] [facility] [address] [id number] [place] [address] Jun, [facility] [place] [facility] [address] [id number] [place] [address] Jun, [facility] [place] [facility] [address] [id number] [place] [address] Jun, [facility] [place] [facility] [address] [id number] [place] [address] Jun, [facility] [place] [facility] [address] [id number] [place] [address] Jun, [facility] [place] [facility] [address] [id number] [place] [address] May, [facility] [place] [facility] [address] [id number] [place] [address] May, [facility] [place] [facility] [address] [id number] [place] [address] Apr, [facility] [place] [facility] [address] [id number] [place] [address] Apr, [facility] [place] [facility] [address] [id number] [place] [address] Apr, [facility] [place] [facility] [address] [id number] [place] [address] Apr, [facility] [place] [facility] [address] [facility] [id number] [place] [address] Apr, [facility] [place] [facility] [address] [id number] [place] [address] Apr, [facility] [place] [facility] [address] [id number] [place] [address] Apr, [facility] [place] [facility] [address] [id number] [place] [address] Mar, [facility] [place] [facility] [address] [id number] [place] [address] Mar, [facility] [place] [facility] [address] [facility] [id number] [place] [address] Mar, [facility] [address] [id number] [place] [address] Mar, [facility] [place] [facility] [address] [id number] [place] [address] Mar, [facility] [place] [facility] [address] [id number] [place] [address] Mar, [facility] [place] [facility] [address] [id number] [place] [address] Mar, [facility] [place] [facility] [address] [id number] [place] [address] Mar, [facility] [place] [facility] [address] [id number] [place] [address] Feb, [facility] [place] [facility] [address] [id number] [place] [address] Feb, [facility] [place] [facility] [address] [id number] [place] [address] Feb, [facility] [place] [facility] [address] [id number] [place] [address] Feb, [facility] [place] [facility] [address] [id number] [place] [address] Feb, [facility] [place] [facility] [address] [id number] [place] [address] Feb, [facility] [place] [facility] [address] [id number] [place] [address] Feb, [facility] [place] [facility] [address] [id number] [place] [address] Jan, [facility] [place] [facility] [address] [id number] [place] [address] Jan, [facility] [place] [facility] [address] [id number] [place] [address] Jan, [facility] [place] [facility] [address] [id number] [place] [address] Jan, [facility] [address] [id number] [place] [address] Jan, [facility] [place] [facility] [address] [id number] [place] [address] Jan, [facility] [place] [facility] [address] [id number] [id number] Jan, [facility] [place] [facility] [address] [id number] [place] [id number] Jan, [facility] [place] [facility] [address] [id number] [place] [address] Dec, [facility] [place] [facility] [address] [id number] [place] [address] Dec, [facility] [address] [id number] [place] [address] Dec, [facility] [place] [facility] [address] [id number] [place] [address] Dec, [facility] [place] [facility] [address] [id number] [place] [address] Dec, [facility] [place] [facility] [address] [id number] [place] [address] Dec, [facility] [place] [facility] [address] [id number] [place] [address] Dec, [facility] [place] [facility] [address] [id number] [place] [address] Dec, [facility] [place] [facility] [address] [id number] [place] [address] Dec, [facility] [place] [facility] [address] [id number] [place] [address] Dec, [facility] [place] [facility] [address] [id number] [place] [id number] Nov, [facility] [place] [facility] [address] [id number] [place] [id number] 27 Nov, 2012 [facility] [address] [id number] [place] [address] 24 Nov, 2012 [facility] [address] [id number] [place] [address] 20 Nov, 2012 [facility] [address] [id number] [place] [address] 19 Nov, 2012 [facility] [address] [id number] [place] [address] 13 Nov, 2012 [facility] [address] [id number] [place] [address] 10 Nov, 2012 [facility] [address] [id number] [place] [address] 06 Nov, 2012 [facility] [address] [id number] [place] [address] Oct, [facility] [address] [id number] [place] [address] Oct, [facility] [address] [id number] [place] [address] Oct, [facility] [address] [id number] [place] [address] Sep, [facility] [address] [id number] [place] [address] Sep, [facility] [address] [id number] [place] [address] Sep, [facility] [place] [facility] [address] [id number] [place] [address] Sep, [facility] [place] [facility] [address] [id number] [place] [address] Sep, [facility] [place] [facility] [address] [id number] [place] [address] Aug, [facility] [address] [id number] [place] [address] Aug, [facility] [address] [id number] [place] [address] Aug, [facility] [address] [id number] [place] [address] Aug, [facility] [place] [facility] [address] [id number] [place] [address] Aug, [facility] [address] [id number] [place] [address] Aug, [facility] [address] [id number] [place] [address] July, [facility] [address] [id number] [place] [address] July, [facility] [address] [id number] [place] [address] July, [facility] [address] [id number] [place] [address] July, [facility] [address] [id number] [place] [address] July, [facility] [place] [facility] [address] [id number] [place] [address] July, [facility] [place] [facility] [address] [id number] [place] [address] Jun, [facility] [place] [facility] [address] [id number] [place] [address] Jun, [facility] [place] [facility] [address] [id number] [place] [address] Jun, [facility] [place] [facility] [address] [id number] [place] [address] Jun, [facility] [place] [facility] [address] [id number] [place] [address] May, [facility] [address] [id number] [place] [address] 15 May, 2012 [facility] [place] [facility] [address] [id number] [place] [address] 06 May, 2012 [facility] [address] [facility] [id number] [place] [address] Apr, [facility] [place] [facility] [address] [id number] [place] [address] Mar, [facility] [address] [id number] [place] [address] 18 Mar, 2012 [facility] [address] [id number] [place] [address] 17 Mar, 2012 [facility] [address] [facility] [id number] [place] [address] 16 Mar, 2012 [facility] [address] [facility] [id number] [place] [address] Mar, [facility] [address] [facility] [id number] [place] [address] Feb, [facility] [address] [facility] [id number] [place] [address] 31 Feb, 2012 [facility] [address] [id number] [place] [address] Feb, [facility] [place] [facility] [address] [id number] [place] [address] Feb, [facility] [place] [facility] [address] [id number] [place] [address] Jan, [facility] [place] [facility] [address] [id number] [place] [address] Jan, [facility] [place] [facility] [address] [facility] [id number] [place] [address] Jan, [facility] [place] [facility] [address] [id number] [place] [address] Jan, [facility] [address] [id number] [place] [address] Dec, [facility] [address] [id number] [place] [address] Dec, [facility] [address] [id number] [place] [address] Nov, [facility] [address] [id number] [place] [address] Oct, [facility] [address] [id number] [place] [address] Oct, [facility] [address] [id number] [place] [address] Oct, [facility] [address] [id number] [place] [address] Oct, [facility] [address] [id number] [place] [address] Oct, [facility] [address] [id number] [place] [address] Sep, [facility] [address] [id number] [place] [address] Sep, [facility] [address] [id number] [place] [address] Aug, [facility] [address] [place] [id number] Aug, [facility] [address] [id number] [place] [address] Aug, [facility] [address] [id number] [place] [address] July, [facility] [address] [id number] [place] [address] July, [facility] [address] [id number] [place] [address] Jun, [facility] [place] [facility] [address] [id number] [place] [address] Jun, [facility] [place] [facility] [address] [id number] [place] [address] 16 Jun, 2011 [facility] [place] [facility] [address] [id number] [place] [address] Jun, [facility] [place] [facility] [address] [id number] [place] [address] 15 Apr, 2011 [facility] [place] [facility] [address] [id number] [place] [address] Apr, [facility] [place] [facility] [address] [id number] [place] [address] Apr, [facility] [place] [facility] [address] [id number] [place] [address] Mar, [facility] [place] [facility] [address] [id number] [place] [address] Mar, [facility] [place] [facility] [address] [id number] [place] [address] Mar, [facility] [place] [facility] [address] [id number] [place] [address] Mar, [facility] [place] [facility] [address] [id number] [place] [address] Mar, [facility] [place] [facility] [address] [id number] [place] [address] Jan, [facility] [place] [facility] [address] [id number] [place] [address] Jan, [facility] [place] [facility] [address] [id number] [place] [address] Jan, [facility] [place] [facility] [address] [id number] [address] 17 Mar, 2010 [facility] [address] [id number] [place] [address] 11 Mar, 2010 [facility] [place] [facility] [address] [id number] [place] [address] 20 Feb, 2010 [facility] [place] [facility] [address] [facility] [id number] [place] [address] 16 Feb, 2010 [facility] [place] [facility] [address] [id number] [place] [address] 16 Feb, 2010 [facility] [place] [facility] [address] [id number] [place] [address] 17 Jan, 2010 [facility] [place] [facility] [address] [id number] [place] [address] 17 Jan, 2010 [facility] [place] [facility] [address] [facility] [id number] [place] [address] Dec, [facility] [place] [facility] [address] [facility] [id number] [place] [address] Dec, [facility] [place] [facility] [address] [facility] [id number] [place] [address] 10 May, 2009 [facility] [place] [facility] [address] [facility] [id number] [place] [address] 10 Apr, 2009 [facility] [place] [facility] [address] [facility] [id number] [place] [address] 07 Feb, 2009 [facility] [place] [facility] [address] [id number] [place] [address] Feb, [facility] [place] [facility] [address] [id number] [place] [address] 30 Jan, 2009 [facility] [place] [facility] [address] [facility] [id number] [place] [address] Jan, [facility] [place] [facility] [address] [facility] [id number] [place] [address] Jan, [facility] [place] [facility] [address] [facility] [id number] [place] [address] Jan, [facility] [address] [facility] [id number] [place] [address] Jan, IMMUNIZATIONS No Known Immunizations SOCIAL HISTORY Never Assessed REASON FOR VISIT Sinus Infection Pt c/o sinus pain/pressure, cough and ear pain for about 3 day s [place] PLAN OF CARE Activity Details Follow Up prn Reason: VITAL SIGNS Height 66 in 2017-06-20 Weight 293.4 lbs 2017-06-20 Temperature 97.0 degrees Fahrenheit 2017-06-20 Heart Rate 82 bpm 2017-06-20 Respiratory Rate 20 2017-06-20 BMI 47.35 kg/m2 2017-06-20 Blood pressure systolic 124 mmHg 2017-06-20 Blood pressure diastolic 72 mmHg 2017-06-20 MEDICATIONS Medication Instructions Dosage Frequency Start Date End Date Duration Status Metformin HCl 500 mg Orally Twice a day 1 tablet with meals 12h 90 Active Pen [place] 31G X 6 MM as directed 24h May, Active Prozac 10 MG Orally Once a day 1 capsule in the morning 24h Jun, Active Ibuprofen 800 MG TAKE ONE TABLET BY MOUTH THREE TIMES DAILY NEEDED 90 Active MS Contin 30 MG Orally every 12 hrs 1 tablet 12h Jun, 28 days Active Gabapentin 600 MG Orally 3 times a day 2 tablets 8h 30 days Active Pantoprazole Sodium 40 MG TAKE ONE TABLET BY MOUTH ONCE DAILY 30 Active Clickfine Pen [place] 31 gauge ONE - DAILY E11.42 100 Active HydrOXYzine Pamoate 50 MG Orally three times a day as needed for anxiety and sleep 1-2 capsules Active Pataday 0.2 % Ophthalmic 2 times a day 1 drop to affected eyes 12h Mar, Active Cefdinir 300 MG Orally every 12 hrs 1 capsule 12h Jun, Jun, 10 day(s) Active Prozac 40 MG Orally Once a day 1 capsule 24h 30 days Active Lidocaine HCl 2 % Externally Three times a day 1 application to affected area as needed 8h Aug, 14 days Active Hydrocortisone 1 % Externally Twice a day for up to 2 weeks 1 application to affected area Aug, 14 days Active Victoza 18 MG/3ML Subcutaneous Once a day 1.2 mg 24h Aug, Active Hydrocodone-Acetaminophen 5-325 MG Orally every 6 hrs 1 tablet as needed 6h Jun, 28 days Active Atorvastatin Calcium 40 MG TAKE ONE TABLET BY MOUTH ONCE DAILY. DUE FOR FASTING LABS 30 Active Penlac 8 % Externally Once a day 1 drop to affected area 24h Dec, Active PredniSONE 20 mg Orally Once a day 2 tablets 24h Jun, Jun, 05 days Active Insulin Syringe 31G X 5/16 subcutaneously Once a day as directed 24h Aug, Active Ventolin HFA 108 (90 Base) MCG/ACT Inhalation every 4 hrs 2 puffs as needed 4h Mar, Active Cyclobenzaprine HCl 10 MG TAKE ONE TABLET BY MOUTH THREE TIMES DAILY NEEDED 10 Active Invega 6 MG Orally Once a day 2 tablets 24h Active RESULTS No Results PROCEDURES Procedure Date Ordered Result Body Site [facility] VISIT ESTABLISHED PATIENT June 20, 2017 INSTRUCTIONS MEDICATIONS ADMINISTERED No Known Medications [...]
--- OUTSIDE RECORDS SUMMARY | 2018-10-04 06:42 | XMS REPORT ---
Author Author KATHY ESTHER [facility] Address [address] [place] [address] Care Team Providers Care Toxicology Teacher Name Role Phone KATHYCIARA VILLEGASHANY Unavailable PROBLEMS Type Condition ICD9-CM Code HQL67-PL Code Onset Dates Condition Status SNOMED Code Problem Primary osteoarthritis of both knees M17.0 Active 550992496 Problem Nocturnal hypoxia G47.34 Active 280213591 Problem Chronic prescription opiate use Z79.891 Active 864278870 Problem Pure hypercholesterolemia E78.0 Active 102021632 Problem Acute right-sided low back pain with right-sided sciatica M54.41 Active 47357845 Problem Type 2 diabetes mellitus with diabetic polyneuropathy E11.42 Active 683853966 Problem Severe major depression with psychotic features F32.3 Active 66390738 Problem Obesity, morbid, BMI 40.0-49.9 E66.01 Active 390661589 Problem Posttraumatic stress disorder F43.10 Active 65908516 Problem Primary insomnia F51.01 Active 6834895 Problem Mood disorder F39 Active 59523655 Problem History of DVT (deep vein thrombosis) Z86.718 Active 741928381 Problem Chronic pain syndrome G89.4 Active 822338620 Problem Chronic systolic (congestive) heart failure I50.22 Active 108195624 Problem Macrocytosis D75.89 Active 223931764 Problem Tobacco abuse Z72.0 Active 068699386 Problem Mild episode of recurrent major depressive disorder F33.0 Active 875931161 Problem BMI 45.0-49.9, adult Z68.42 Active 105495012 Problem Gastroesophageal reflux disease, esophagitis presence not specified K21.9 Active 951466952 Problem Non-ischemic cardiomyopathy I42.9 Active 84198958 Problem Essential hypertension I10 Active 28428503 Problem Major depressive disorder, recurrent episode, unspecified severity F33.9 Active 90082035 Problem PTSD (post-traumatic stress disorder) F43.10 Active 88334070 Problem MITCHELL treated with BiPAP G47.33 Active 40386661 Problem Chronic obstructive pulmonary disease, unspecified COPD type J44.9 Active 28305407 Problem History of weight loss surgery Z98.84 Active 132864252 ALLERGIES No Information ENCOUNTERS Encounter Location Date Diagnosis [facility] [id number] [place] [address] Oct, [facility] [id number] [place] [address] Oct, [facility] [address] [address] Sep, Primary osteoarthritis of both knees M17.0 and Chronic pain syndrome G89.4 [facility] [address] [address] Sep, Mood disorder F39 and Posttraumatic stress disorder F43.10 [facility] [address] [address] Aug, Primary osteoarthritis of both knees M17.0 and Chronic pain syndrome G89.4 [facility] [id number] [place] [address] July, Primary osteoarthritis of both knees M17.0 and Chronic pain syndrome G89.4 [facility] [id number] [place] [address] July, Type 2 diabetes mellitus with diabetic polyneuropathy E11.42 ; Essential hypertension I10 ; Pure hypercholesterolemia E78.0 ; Chronic prescription opiate use Z79.891 ; Tobacco abuse Z72.0 ; Primary osteoarthritis of both knees M17.0 ; Primary insomnia F51.01 and BMI 45.0-49.9, adult Z68.42 [facility] [id number] [place] [address] July, Medicare annual wellness visit, initial Z00.00 [...] for immunization Z23 [facility] [id number] [place] [address] July, Primary osteoarthritis of both knees M17.0 and Chronic pain syndrome G89.4 [facility] [id number] [place] [address] Jun, Infection of right ear H66.91 ; Wheezing on auscultation R06.2 and BMI 45.0-49.9, adult Z68.42 [facility] [address] [address] Jun, [facility] [id number] [place] [address] Jun, Primary osteoarthritis of both knees M17.0 and Chronic pain syndrome G89.4 [facility] [id number] [place] [address] May, [facility] [id number] [place] [address] May, BMI 45.0-49.9, adult Z68.42 ; Mood disorder F39 and Posttraumatic stress disorder F43.10 [facility] [id number] [place] [address] May, [facility] [id number] [place] [address] May, Primary osteoarthritis of both knees M17.0 and Chronic pain syndrome G89.4 [facility] [id number] [place] [address] May, Mood disorder F39 [facility] [id number] [place] [address] 07 Apr, 2017 Type 2 diabetes mellitus with diabetic polyneuropathy E11.42 [facility] [id number] [place] [address] Apr, [facility] [id number] [place] [address] Apr, Primary osteoarthritis of both knees M17.0 and Chronic pain syndrome G89.4 [facility] [id number] [place] [address] Apr, Mood disorder F39 [facility] [id number] [place] [address] Mar, Mood disorder F39 and Posttraumatic stress disorder F43.10 [facility] [id number] [place] [address] Mar, Primary osteoarthritis of both knees M17.0 and Chronic pain syndrome G89.4 [facility] [id number] [place] [address] Feb, Primary osteoarthritis of both knees M17.0 and Chronic pain syndrome G89.4 [facility] [id number] [place] [address] Feb, Mood disorder F39 [facility] [address] [place] [address] Jan, Type 2 diabetes mellitus with diabetic polyneuropathy E11.42 ; Primary osteoarthritis of both knees M17.0 ; Mood disorder F39 ; Obesity, morbid, BMI 40.0-49.9 E66.01 ; Chronic prescription opiate use Z79.891 ; Acute suppurative otitis media of both ears without spontaneous rupture of tympanic membranes, recurrence not specified H66.003 and BMI 45.0-49.9, adult Z68.42 [facility] [address] [place] [address] Jan, Primary osteoarthritis of both knees M17.0 and Chronic pain syndrome G89.4 [facility] [id number] [place] [address] Dec, Mood disorder F39 and Posttraumatic stress disorder F43.10 [facility] [address] [place] [address] Dec, Primary osteoarthritis of both knees M17.0 and Chronic pain syndrome G89.4 [facility] [address] [place] [address] 18 Nov, 2016 Chronic pain syndrome G89.4 [facility] [id number] [place] [address] 15 Nov, 2016 Primary osteoarthritis of both knees M17.0 and Chronic pain syndrome G89.4 [facility] [id number] [place] [address] 13 Nov, 2016 Type 2 diabetes mellitus with diabetic polyneuropathy E11.42 and Chronic pain syndrome G89.4 [facility] [id number] [place] [address] Nov, Posttraumatic stress disorder F43.10 and Mood disorder F39 [facility] [id number] [place] [address] Oct, Chronic pain syndrome G89.4 [facility] [id number] [place] [address] Oct, Type 2 diabetes mellitus with diabetic polyneuropathy E11.42 ; BMI 45.0-49.9, adult Z68.42 ; Primary osteoarthritis of both knees M17.0 and Skin lesion L98.9 [facility] [address] [address] Oct, Chronic pain syndrome G89.4 [facility] [id number] [place] [address] Sep, Chronic pain syndrome G89.4 [facility] [id number] [place] [address] Sep, [facility] [id number] [place] [address] Sep, Chronic pain syndrome G89.4 [facility] [id number] [place] [address] Aug, Chronic pain syndrome G89.4 [facility] [id number] [place] [address] Aug, [facility] [id number] [place] [address] Aug, Macrocytosis D75.89 and Pure hypercholesterolemia E78.0 [facility] [id number] [place] [address] Aug, Pure hypercholesterolemia E78.0 [facility] [id number] [place] [address] Aug, Macrocytosis D75.89 [facility] [id number] [place] [address] Aug, Pure hypercholesterolemia E78.0 ; Type 2 diabetes mellitus with diabetic polyneuropathy E11.42 ; MITCHELL treated with BiPAP G47.33 and Chronic pain syndrome G89.4 [facility] [id number] [place] [address] Aug, [facility] [id number] [place] [address] Aug, Hemorrhoids, unspecified hemorrhoid type K64.9 [facility] [id number] [place] [address] Aug, Chronic pain syndrome G89.4 ; Type 2 diabetes mellitus with diabetic polyneuropathy E11.42 ; Hemorrhoids, unspecified hemorrhoid type K64.9 ; Tobacco abuse Z72.0 and Primary osteoarthritis of both knees M17.0 [facility] [address] [place] [address] July, Chronic pain syndrome G89.4 [facility] [id number] [place] [address] July, [facility] [id number] [place] [address] Jun, Chronic pain syndrome G89.4 [facility] [id number] [place] [address] Jun, Chronic pain syndrome G89.4 [facility] [id number] [place] [address] Jun, Severe major depression with psychotic features F32.3 and Posttraumatic stress disorder F43.10 [facility] [id number] [place] [address] Jun, Chronic pain syndrome G89.4 [facility] [id number] [place] [address] Jun, [facility] [id number] [place] [address] May, Chronic pain syndrome G89.4 [facility] [id number] [place] [address] May, Tobacco abuse Z72.0 [facility] [id number] [place] [address] May, [facility] [id number] [place] [address] Apr, Chronic pain syndrome G89.4 [facility] [id number] [place] [address] Apr, [facility] [id number] [place] [address] Apr, Right foot pain M79.671 [facility] [id number] [place] [address] Mar, Type 2 diabetes mellitus with diabetic polyneuropathy E11.42 ; MITCHELL treated with BiPAP G47.33 ; Pure hypercholesterolemia E78.0 ; Chronic pain syndrome G89.4 ; Tobacco abuse Z72.0 and Obesity, morbid, BMI 40.0-49.9 E66.01 [facility] [address] [address] Mar, [facility] [id number] [address] Mar, [facility] [id number] [place] [address] Mar, [facility] [id number] [place] [address] Mar, [facility] [id number] [place] [address] Mar, [facility] [id number] [place] [address] Mar, Severe major depression with psychotic features F32.3 and Posttraumatic stress disorder F43.10 [facility] [address] [address] Mar, [facility] [address] [address] Feb, [facility] [address] [address] Feb, [facility] [address] [address] Jan, [facility] [address] [address] Jan, [facility] [address] [address] Dec, Posttraumatic stress disorder F43.10 and Severe major depression with psychotic features F32.3 [facility] [address] [address] Dec, Type 2 diabetes mellitus with diabetic polyneuropathy E11.42 ; Chronic pain syndrome G89.4 and Acute right-sided low back pain with right-sided sciatica M54.41 [facility] [address] [address] Dec, [facility] [id number] [place] [address] Dec, [facility] [id number] [place] [address] Nov, [facility] [id number] [place] [address] Nov, [facility] [id number] [place] [address] Nov, [facility] [id number] [place] [address] Oct, [facility] [id number] [place] [address] Oct, [facility] [id number] [place] [address] Sep, Dental examination Z01.20 [facility] [id number] [place] [address] Sep, [facility] [address] [place] [address] Sep, Type 2 diabetes mellitus with diabetic polyneuropathy E11.42 ; Chronic pain syndrome G89.4 ; Chronic prescription opiate use Z79.891 ; Injury of right index finger, sequela S69.91XS and Anejaculation N50.8 [facility] [address] [address] Aug, [facility] [id number] [place] [address] Aug, [facility] [address] [address] Aug, Cellulitis of finger of right hand L03.011 [facility] [address] [address] July, [facility] [id number] [place] [address] July, [facility] [id number] [place] [address] Jun, Onychomycosis B35.1 [facility] [id number] [place] [address] Jun, Severe major depression with psychotic features F32.3 and Posttraumatic stress disorder F43.10 [facility] [id number] [place] [address] Jun, [facility] [id number] [place] [address] Jun, [facility] [id number] [place] [address] Jun, [facility] [id number] [place] [address] May, Type 2 diabetes mellitus with diabetic polyneuropathy E11.42 [facility] [id number] [place] [address] May, Type 2 diabetes mellitus with diabetic polyneuropathy E11.42 and Urinary hesitancy R39.11 [facility] [address] [place] [address] May, Type 2 diabetes mellitus with diabetic polyneuropathy E11.42 ; Left hip pain M25.552 and Benign prostatic hyperplasia with lower urinary tract symptoms, unspecified morphology N40.1 [facility] [address] [address] May, [facility] [address] [place] [address] Apr, Severe major depression with psychotic features F32.3 and Posttraumatic stress disorder F43.10 [facility] [address] [address] 08 Apr, 2015 [facility] [id number] [place] [address] Mar, [facility] [id number] [place] [address] Mar, Dysuria R30.0 and Urinary hesitancy R39.11 [facility] [id number] [place] [address] Mar, Onychomycosis B35.1 [facility] [id number] [place] [address] Mar, [facility] [id number] [place] [address] Feb, [facility] [id number] [place] [address] Jan, [facility] [id number] [place] [address] Jan, Posttraumatic stress disorder F43.10 and Severe major depression with psychotic features F32.3 [facility] [id number] [place] [address] Jan, [facility] [id number] [place] [address] Jan, Chronic pain syndrome G89.4 ; Type 2 diabetes mellitus with diabetic polyneuropathy E11.42 ; Decreased pedal pulses R09.89 and Paresthesia of both hands R20.2 [facility] [id number] [place] [address] Dec, Posttraumatic stress disorder F43.10 and Severe major depression with psychotic features F32.3 [facility] [id number] [place] [address] Dec, [facility] [id number] [place] [address] Dec, [facility] [address] [address] Dec, Onychomycosis B35.1 [facility] [id number] [place] [address] Dec, [facility] [id number] [place] [address] Dec, [facility] [id number] [place] [address] Nov, [facility] [id number] [place] [address] Oct, Depression, major, recurrent, moderate 296.32 and Posttraumatic stress disorder 309.81 [facility] [id number] [place] [address] Oct, [facility] [id number] [place] [address] Oct, [facility] [id number] [place] [address] Oct, [facility] [id number] [place] [address] Sep, Posttraumatic stress disorder 309.81 and Depression, major, recurrent, moderate 296.32 [facility] [address] [address] Sep, [facility] [id number] [place] [address] Sep, Chronic airway obstruction, not elsewhere classified 496 [facility] [id number] [place] [address] Sep, Onychomycosis 110.1 and DM neuro manif type II 250.60 [facility] [id number] [place] [address] Sep, Chronic pain 338.29 ; Chronic airway obstruction, not elsewhere classified 496 ; Osteoarthritis of knees, bilateral 715.96 and On potassium wasting diuretic therapy V58.69 [facility] [id number] [place] [address] Sep, Insect bites 919.4 ; Sinusitis 473.9 and GERD (gastroesophageal reflux disease) 530.81 [facility] [address] [address] Aug, Depression, major, recurrent, moderate 296.32 and Posttraumatic stress disorder 309.81 [facility] [address] [address] Aug, [facility] [address] [address] Aug, [facility] [address] [address] Aug, [facility] [id number] [place] [address] July, Major depressive disorder, recurrent episode, moderate 296.32 and Posttraumatic stress disorder 309.81 [facility] [id number] [place] [address] July, [facility] [id number] [place] [address] July, [facility] [id number] [place] [address] July, [facility] [id number] [place] [address] July, [facility] [id number] [place] [address] Jun, [facility] [id number] [place] [address] Jun, [facility] [id number] [place] [address] May, [facility] [place] [facility] [address] [id number] [place] [address] May, [facility] [place] [facility] [address] [id number] [place] [address] May, [facility] [place] [facility] [address] [id number] [place] [address] May, [facility] [place] [facility] [address] [id number] [place] [address] May, [facility] [place] [facility] [address] [id number] [place] [address] May, [facility] [place] [facility] [address] [id number] [place] [address] May, [facility] [place] [facility] [address] [id number] [place] [address] May, [facility] [place] [facility] [address] [id number] [place] [address] May, [facility] [place] [facility] [address] [id number] [place] [address] Apr, [facility] [place] [facility] [address] [id number] [place] [address] Apr, 2014 [facility] [place] [facility] [address] [id number] [place] [address] Apr, 2014 [facility] [place] [facility] [address] [id number] [address] Apr, 2014 [facility] [place] [facility] [address] [id number] [place] [address] Apr, 2014 [facility] [place] [facility] [address] [id number] [place] [address] Apr, [facility] [place] [facility] [address] [id number] [place] [address] Apr, [facility] [place] [facility] [address] [id number] [place] [address] 04 Apr, 2014 [facility] [place] [facility] [address] [id number] [place] [address] 04 Apr, 2014 [facility] [place] [facility] [address] [id number] [place] [address] 30 Mar, 2014 [facility] [place] [facility] [address] [id number] [place] [address] 30 Mar, 2014 [facility] [place] [facility] [address] [id number] [place] [address] Mar, [facility] [place] [facility] [address] [id number] [place] [address] Mar, [facility] [place] [facility] [address] [id number] [place] [address] Mar, [facility] [place] [facility] [address] [id number] [place] [address] Mar, [facility] [place] [facility] [address] [id number] [place] [address] 15 Mar, 2014 [facility] [place] [facility] [address] [id number] [place] [address] Mar, [facility] [place] [facility] [address] [id number] [place] [address] 15 Mar, 2014 [facility] [place] [facility] [address] [id number] [place] [address] 15 Mar, 2014 [facility] [place] [facility] [address] [id number] [place] [address] 14 Mar, 2014 [facility] [place] [facility] [address] [id number] [place] [address] 14 Mar, 2014 [facility] [place] [facility] [address] [id number] [place] [address] 14 Mar, 2014 [facility] [place] [facility] [address] [id number] [place] [address] 14 Mar, 2014 [facility] [place] [facility] [address] [id number] [place] [address] 14 Mar, 2014 [facility] [place] [facility] [address] [id number] [place] [address] 14 Mar, 2014 [facility] [place] [facility] [address] [id number] [place] [address] 09 Mar, 2014 [facility] [place] [facility] [address] [id number] [place] [address] 09 Mar, 2014 [facility] [place] [facility] [address] [id number] [place] [address] 16 Feb, 2014 [facility] [place] [facility] [address] [id number] [place] [address] 16 Feb, 2014 [facility] [place] [facility] [address] [id number] [place] [address] 15 Feb, 2014 [facility] [place] [facility] [address] [id number] [place] [address] 15 Feb, 2014 [facility] [place] [facility] [address] [id number] [place] [address] 15 Feb, 2014 [facility] [place] [facility] [address] [id number] [place] [address] 15 Feb, 2014 [facility] [place] [facility] [address] [id number] [place] [address] Jan, [facility] [place] [facility] [address] [id number] [address] Jan, [facility] [place] [facility] [address] [id number] [place] [address] 17 Jan, 2014 [facility] [place] [facility] [address] [id number] [place] [address] 17 Jan, 2014 [facility] [place] [facility] [address] [id number] [place] [address] Jan, [facility] [place] [facility] [address] [id number] [place] [address] Jan, [facility] [place] [facility] [address] [id number] [place] [address] Jan, [facility] [place] [facility] [address] [id number] [place] [address] Jan, [facility] [place] [facility] [address] [id number] [place] [address] Jan, [facility] [place] [facility] [address] [id number] [place] [address] Jan, [facility] [place] [facility] [address] [id number] [place] [address] Dec, [facility] [place] [facility] [address] [id number] [place] [address] Dec, [facility] [place] [facility] [address] [id number] [place] [address] Dec, [facility] [place] [facility] [address] [id number] [place] [address] Dec, [facility] [place] [facility] [address] [id number] [place] [address] 16 Nov, 2013 [facility] [place] [facility] [address] [id number] [place] [address] 16 Nov, 2013 [facility] [place] [facility] [address] [id number] [place] [address] Nov, 2013 [facility] [place] [facility] [address] [id number] [place] [address] Nov, 2013 [facility] [place] [facility] [address] [id number] [place] [address] Nov, 2013 [facility] [place] [facility] [address] [id number] [place] [address] Nov, 2013 [facility] [place] [facility] [address] [id number] [place] [address] Oct, [facility] [place] [facility] [address] [id number] [place] [address] Oct, [facility] [place] [facility] [address] [id number] [place] [address] Oct, [facility] [place] [facility] [address] [id number] [place] [address] Oct, [facility] [place] [facility] [address] [id number] [place] [address] Sep, [facility] [place] [facility] [address] [id number] [place] [address] Sep, [facility] [place] [facility] [address] [id number] [place] [address] Sep, [facility] [place] [facility] [address] [id number] [place] [address] Sep, [facility] [place] [facility] [address] [id number] [place] [address] Sep, [facility] [place] [facility] [address] [id number] [place] [address] Sep, [facility] [place] [facility] [address] [id number] [place] [address] July, [facility] [place] [facility] [address] [id number] [place] [address] July, [facility] [place] [facility] [address] [id number] [place] [address] July, [facility] [place] [facility] [address] [id number] [place] [address] July, [facility] [place] [facility] [address] [id number] [place] [address] Jun, [facility] [place] [facility] [address] [id number] [place] [address] Jun, [facility] [place] [facility] [address] [id number], [place] [address] Jun, [facility] [place] [facility] [address] [id number] [place] [address] Jun, [facility] [place] [facility] [address] [facility] [id number] [place] [address] Jun, [facility] [place] [facility] [address] [facility] [id number] [place] [address] Jun, [facility] [place] [facility] [address] [id number] [place] [address] May, [facility] [place] [facility] [address] [facility] [id number] [place] [address] May, [facility] [place] [facility] [address] [facility] [id number] [place] [address] Apr, [facility] [place] [facility] [address] [facility] [id number] [place] [address] Apr, [facility] [place] [facility] [address] [facility] [id number] [place] [address] Apr, [facility] [place] [facility] [address] [facility] [id number] [place] [address] Apr, [facility] [place] [facility] [address] [facility] [id number] [place] [address] Apr, [facility] [place] [facility] [address] [facility] [id number] [place] [address] Apr, [facility] [place] [facility] [address] [facility] [id number][place] [address] Apr, [facility] [place] [facility] [address] [facility] [id number], [place] [address] Mar, [facility] [place] [facility] [address] [facility] [id number], [place] [address] Mar, [facility] [place] [facility] [address] [facility] [id number], [place] [address] Mar, [facility] [place] [facility] [address] [id number] [place] [address] Mar, [facility] [place] [facility] [address] [id number] [place] [address] Mar, [facility] [place] [facility] [address] [id number] [place] [address] Mar, [facility] [place] [facility] [address] [id number] [place] [address] Mar, [facility] [place] [facility] [address] [id number] [place] [address] Mar, [facility] [place] [facility] [address] [id number] [place] [address] Feb, [facility] [place] [facility] [address] [id number] [place] [address] Feb, [facility] [place] [facility] [address] [id number] [place] [address] Feb, [facility] [place] [facility] [address] [id number] [place] [address] Feb, [facility] [place] [facility] [address] [id number] [place] [address] Feb, [facility] [place] [facility] [address] [id number] [place] [address] Feb, [facility] [place] [facility] [address] [id number] [place] [address] Feb, [facility] [place] [facility] [address] [id number] [place] [address] Jan, [facility] [place] [facility] [address] [id number] [place] [address] Jan, [facility] [place] [facility] [address] [id number] [place] [address] Jan, [facility] [place] [facility] [address] [id number] [place] [address] Jan, [facility] [place] [facility] [address] [id number], [place] [address] Jan, [facility] [place] [facility] [address] [id number], [place] [address] Jan, [facility] [place] [facility] [address] [id number] [id number] Jan, [facility] [place] [facility] [address] [id number] [address] Jan, [facility] [place] [facility] [address] [id number], [place] [address] Dec, [facility] [place] [facility] [address] [id number], [place] [address] Dec, [facility] [place] [facility] [address] [id number], [place] [address] Dec, [facility] [place] [facility] [address] [id number], [place] [address] Dec, [facility] [place] [facility] [address] [id number], [place] [address] Dec, [facility] [place] [facility] [address] [id number], [place] [address] Dec, [facility] [place] [facility] [address] [id number], [place] [address] Dec, [facility] [place] [facility] [address] [id number], [place] [address] Dec, [facility] [place] [facility] [address] [id number], [place] [address] Dec, [facility] [place] [facility] [address] [id number], [place] [address] Dec, [facility] [place] [facility] [address] [id number][place] [id number] Nov, [facility] [place] [facility] [address] [id number][place] [id number] 27 Nov, 2012 [facility] [place] [facility] [address] [id number] [place] [address] 24 Nov, 2012 [facility] [place] [facility] [address] [id number] [place] [address] 20 Nov, 2012 [facility] [place] [facility] [address] [id number] [place] [address] 19 Nov, 2012 [facility] [place] [facility] [address] [id number] [place] [address] 13 Nov, 2012 [facility] [place] [facility] [address] [id number] [place] [address] 10 Nov, 2012 [facility] [place] [facility] [address] [id number] [place] [address] 06 Nov, 2012 [facility] [place] [facility] [address] [id number] [place] [address] Oct, [facility] [place] [facility] [address] [id number] [place] [address] Oct, [facility] [place] [facility] [address] [id number] [place] [address] Oct, [facility] [place] [facility] [address] [id number] [place] [address] Sep, [facility] [place] [facility] [address] [id number] [place] [address] Sep, [facility] [place] [facility] [address] [id number] [place] [address] Sep, [facility] [place] [facility] [address] [id number] [place] [address] Sep, [facility] [place] [facility] [address] [id number] [place] [address] Sep, [facility] [place] [facility] [address] [id number] [place] [address] Aug, [facility] [place] [facility] [address] [id number] [place] [address] Aug, [facility] [address] [id number] [place] [address] Aug, [facility] [address] [id number] [place] [address] Aug, [facility] [address] [id number] [place] [address] Aug, [facility] [address] [id number] [place] [address] Aug, [facility] [address] [id number] [place] [address] July, [facility] [address] [id number] [place] [address] July, [facility] [address] [id number] [place] [address] July, [facility] [address] [id number] [place] [address] July, [facility] [address] [id number] [place] [address] July, [facility] [address] [id number] [place] [address] July, [facility] [address] [id number] [place] [address] Jun, [facility] [address] [id number] [place] [address] Jun, [facility] [place] [facility] [address] [id number] [place] [address] Jun, [facility] [place] [facility] [address] [id number] [place] [address] Jun, [facility] [place] [facility] [address] [id number] [place] [address] May, [facility] [address] [id number] [place] [address] 15 May, 2012 [facility] [place] [facility] [address] [id number] [place] [address] 06 May, 2012 [facility] [place] [facility] [address] [id number] [place] [address] 19 Apr, 2012 [facility] [place] [facility] [address] [id number] [place] [address] Mar, [facility] [place] [facility] [address] [id number] [place] [address] 18 Mar, 2012 [facility] [place] [facility] [address] [id number] [place] [address] 17 Mar, 2012 [facility] [place] [facility] [address] [id number] [place] [address] 16 Mar, 2012 [facility] [place] [facility] [address] [id number] [place] [address] 15 Mar, 2012 [facility] [place] [facility] [address] [id number] [place] [address] Feb, [facility] [place] [facility] [address] [id number] [place] [address] Feb, [facility] [place] [facility] [address] [id number], [place] [address] Feb, [facility] [place] [facility] [address] [id number], [place] [address] Feb, [facility] [place] [facility] [address] [id number] [place] [address] Jan, [facility] [place] [facility] [address] [id number] [place] [address] Jan, [facility] [place] [facility] [address] [id number] [place] [address] Jan, [facility] [place] [facility] [address] [id number] [place] [address] Jan, [facility] [address] [id number] [place] [address] Dec, [facility] [address] [id number] [place] [address] Dec, [facility] [address] [id number] [place] [address] Nov, [facility] [address] [id number] [place] [address] Oct, [facility] [address] [id number] [place] [address] Oct, [facility] [address] [id number] [place] [address] Oct, [facility] [address] [id number] [place] [address] Oct, [facility] [address] [id number] [place] [address] Oct, [facility] [address] [id number] [place] [address] Sep, [facility] [address] [id number] [place] [address] Sep, [facility] [address] [id number] [place] [address] Aug, [facility] [address] [place] [id number] Aug, [facility] [address] [id number] [place] [address] Aug, [facility] [address] [id number] [place] [address] July, [facility] [address] [id number] [place] [address] July, [facility] [address] [id number] [place] [address] 23 Jun, 2011 [facility] [address] [id number] [place] [address] 23 Jun, 2011 [facility] [place] [facility] [address] [id number] [place] [address] 16 Jun, 2011 [facility] [address] [id number] [place] [address] 13 Jun, 2011 [facility] [address] [id number] [place] [address] 15 Apr, 2011 [facility] [address] [id number] [place] [address] 15 Apr, 2011 [facility] [address] [id number] [place] [address] 10 Apr, 2011 [facility] [address] [id number] [place] [address] Mar, [facility] [address] [id number] [place] [address] Mar, [facility] [address] [id number] [place] [address] Mar, [facility] [address] [id number] [place] [address] Mar, [facility] [address] [id number] [place] [address] Mar, [facility] [address] [id number] [place] [address] Jan, [facility] [place] [facility] [address] [id number] [place] [address] Jan, [facility] [place] [facility] [address] [id number] [place] [address] Jan, [facility] [place] [facility] [address] [id number] [place] [address] Mar, [facility] [address] [id number] [place] [address] 11 Mar, 2010 [facility] [place] [facility] [address] [id number] [place] [address] 20 Feb, 2010 [facility] [place] [facility] [address] [id number] [place] [address] 16 Feb, 2010 [facility] [place] [facility] [address] [id number] [place] [address] 16 Feb, 2010 [facility] [place] [facility] [address] [id number] [place] [address] Jan, [facility] [place] [facility] [address] [id number] [place] [address] 17 Jan, 2010 [facility] [place] [facility] [address] [id number] [place] [address] Dec, [facility] [place] [facility] [address] [id number], [place] [address] Dec, [facility] [place] [facility] [address] [id number] [place] [address] May, [facility] [place] [facility] [address] [id number], [place] [address] 10 Apr, 2009 [facility] [place] [facility] [address] [id number], [place] [address] Feb, [facility] [place] [facility] [address] [id number], [place] [address] Feb, [facility] [place] [facility] [address] [id number] [place] [address] 30 Jan, 2009 [facility] [place] [facility] [address] [id number], [place] [address] Jan, [facility] [place] [facility] [address] [id number], [place] [address] Jan, [facility] [place] [facility] [address] [facility] [id number] [place] [address] 11 Jan, 2009 [facility] [address] [facility] [id number] [place] [address] 11 Jan, 2009 IMMUNIZATIONS No Known Immunizations SOCIAL HISTORY Never Assessed REASON FOR VISIT Referral PLAN OF CARE VITAL SIGNS MEDICATIONS [...]
--- OUTSIDE RECORDS SUMMARY | 2018-10-04 06:43 | XMS REPORT ---
Author Author KATHY ESTHER [facility] Address [address] [place] [address] Care Team Providers [employer] Sales Consultant Name Role Phone KATHYCIARA VILLEGASHANY Unavailable PROBLEMS Type Condition ICD9-CM Code RDL00-PH Code Onset Dates Condition Status SNOMED Code Problem Primary osteoarthritis of both knees M17.0 Active 793569819 Problem Nocturnal hypoxia G47.34 Active 410226596 Problem Chronic prescription opiate use Z79.891 Active 451189713 Problem Pure hypercholesterolemia E78.0 Active 905301736 Problem Acute right-sided low back pain with right-sided sciatica M54.41 Active 59572996 Problem Type 2 diabetes mellitus with diabetic polyneuropathy E11.42 Active 260057867 Problem Severe major depression with psychotic features F32.3 Active 07203418 Problem Obesity, morbid, BMI 40.0-49.9 E66.01 Active 643060338 Problem Posttraumatic stress disorder F43.10 Active 24705303 Problem Primary insomnia F51.01 Active 2655455 Problem Mood disorder F39 Active 29374737 Problem History of DVT (deep vein thrombosis) Z86.718 Active 557982052 Problem Chronic pain syndrome G89.4 Active 689149148 Problem Chronic systolic (congestive) heart failure I50.22 Active 160866331 Problem Macrocytosis D75.89 Active 474054027 Problem Tobacco abuse Z72.0 Active 017291833 Problem Mild episode of recurrent major depressive disorder F33.0 Active 022020795 Problem BMI 45.0-49.9, adult Z68.42 Active 342954851 Problem Gastroesophageal reflux disease, esophagitis presence not specified K21.9 Active 232160215 Problem Non-ischemic cardiomyopathy I42.9 Active 77340326 Problem Essential hypertension I10 Active 58868205 Problem Major depressive disorder, recurrent episode, unspecified severity F33.9 Active 58628970 Problem PTSD (post-traumatic stress disorder) F43.10 Active 34297048 Problem MITCHELL treated with BiPAP G47.33 Active 38478442 Problem Chronic obstructive pulmonary disease, unspecified COPD type J44.9 Active 44968759 Problem History of weight loss surgery Z98.84 Active 270403595 ALLERGIES No Information ENCOUNTERS Encounter Location Date Diagnosis [place] [id number] [place] [address] Oct, [place] [address] [place] [id number] [place] [address] Oct, [place] [address] [address] Sep, Mood disorder F39 and Posttraumatic stress disorder F43.10 [place] [address] [address] Aug, Primary osteoarthritis of both knees M17.0 and Chronic pain syndrome G89.4 [place] [address] [address] July, Primary osteoarthritis of both knees M17.0 and Chronic pain syndrome G89.4 [place] [address] [place] [id number] [place] [address] July, 2018 Type 2 diabetes mellitus with diabetic polyneuropathy E11.42 ; Essential hypertension I10 ; Pure hypercholesterolemia E78.0 ; Chronic prescription opiate use Z79.891 ; Tobacco abuse Z72.0 ; Primary osteoarthritis of both knees M17.0 ; Primary insomnia F51.01 and BMI 45.0-49.9, adult Z68.42 [place] [address] [place] [id number] [place] [address] 08 July, 2018 Medicare annual wellness visit, initial Z00.00 ; [...] specified K21.9 and Encounter for immunization Z23 [facility] [address] [place] [address] [id number] [place] [address] July, Primary osteoarthritis of both knees M17.0 and Chronic pain syndrome G89.4 [facility] [address] [address] [id number] [place] [address] Jun, Infection of right ear H66.91 ; Wheezing on auscultation R06.2 and BMI 45.0-49.9, adult Z68.42 [facility] [address] [place] [address] [id number] [place] [address] Jun, [place] [address] [address] Jun, Primary osteoarthritis of both knees M17.0 and Chronic pain syndrome G89.4 [facility] [address] [address] [id number] [place] [address] May, [facility] [address] [place] [id number] [place] [address] May, BMI 45.0-49.9, adult Z68.42 ; Mood disorder F39 and Posttraumatic stress disorder F43.10 [place] [address] [place] [id number] [place] [address] May, [facility] [address] [place] [id number] [place] [address] May, Primary osteoarthritis of both knees M17.0 and Chronic pain syndrome G89.4 [facility] [id number] [place] [address] May, Mood disorder F39 [facility] [address] [address] 07 Apr, 2017 Type 2 diabetes mellitus with diabetic polyneuropathy E11.42 [facility] [address] [place] [address] [id number] [place] [address] Apr, [facility] [address] [place] [address] Apr, Primary osteoarthritis of both knees M17.0 and Chronic pain syndrome G89.4 [facility] [address] [id number] [place] [address] Apr, Mood disorder F39 [facility] [id number] [place] [address] Mar, Mood disorder F39 and Posttraumatic stress disorder F43.10 [facility] [address] [address] [id number] [place] [address] Mar, Primary osteoarthritis of both knees M17.0 and Chronic pain syndrome G89.4 [facility] [address] [place] [id number] [place] [address] Feb, Primary osteoarthritis of both knees M17.0 and Chronic pain syndrome G89.4 [facility] [address] [place] [id number] [place] [address] Feb, Mood disorder F39 [facility] [address] [address] [id number] [place] [address] Jan, Type 2 diabetes mellitus with diabetic polyneuropathy E11.42 ; Primary osteoarthritis of both knees M17.0 ; Mood disorder F39 ; Obesity, morbid, BMI 40.0-49.9 E66.01 ; Chronic prescription opiate use Z79.891 ; Acute suppurative otitis media of both ears without spontaneous rupture of tympanic membranes, recurrence not specified H66.003 and BMI 45.0-49.9, adult Z68.42 [facility] [address] [place] [address] Jan, Primary osteoarthritis of both knees M17.0 and Chronic pain syndrome G89.4 [facility] [id number] [place] [address] Dec, Mood disorder F39 and Posttraumatic stress disorder F43.10 [facility] [id number] [place] [address] Dec, Primary osteoarthritis of both knees M17.0 and Chronic pain syndrome G89.4 [facility] [address] [address] 18 Nov, 2016 Chronic pain syndrome G89.4 [facility] [address] [address] 15 Nov, 2016 Primary osteoarthritis of both knees M17.0 and Chronic pain syndrome G89.4 [facility] [address] [place] [id number] [place] [address] 13 Nov, 2016 Type 2 diabetes mellitus with diabetic polyneuropathy E11.42 and Chronic pain syndrome G89.4 [facility] [address] [place] [id number] [place] [address] 12 Nov, 2016 Posttraumatic stress disorder F43.10 and Mood disorder F39 [facility] [address] [place] [id number] [place] [address] Oct, Chronic pain syndrome G89.4 [facility] [address] [place] [address] Oct, Type 2 diabetes mellitus with diabetic polyneuropathy E11.42 ; BMI 45.0-49.9, adult Z68.42 ; Primary osteoarthritis of both knees M17.0 and Skin lesion L98.9 [facility] [address] [address] Oct, Chronic pain syndrome G89.4 [facility] [id number] [place] [address] Sep, Chronic pain syndrome G89.4 [facility] [address] [address] Sep, [facility] [address] [place] [id number] [place] [address] Sep, Chronic pain syndrome G89.4 [facility] [address] [address] Aug, Chronic pain syndrome G89.4 [facility] [address] [address] Aug, [facility] [address] [place] [id number] [place] [address] Aug, Macrocytosis D75.89 and Pure hypercholesterolemia E78.0 [facility] [address] [place] [address] Aug, Pure hypercholesterolemia E78.0 [facility] [address] [place] [address] Aug, Macrocytosis D75.89 [facility] [address] [place] [id number] [place] [address] Aug, Pure hypercholesterolemia E78.0 ; Type 2 diabetes mellitus with diabetic polyneuropathy E11.42 ; MITCHELL treated with BiPAP G47.33 and Chronic pain syndrome G89.4 [facility] [address] [place] [id number] [place] [address] Aug, [facility] [id number] [place] [address] Aug, Hemorrhoids, unspecified hemorrhoid type K64.9 [facility] [address] [address] Aug, Chronic pain syndrome G89.4 ; Type 2 diabetes mellitus with diabetic polyneuropathy E11.42 ; Hemorrhoids, unspecified hemorrhoid type K64.9 ; Tobacco abuse Z72.0 and Primary osteoarthritis of both knees M17.0 [facility] [address], [place] [address] July, Chronic pain syndrome G89.4 [facility] [address] [address] July, [facility] [address], [place] [address] Jun, Chronic pain syndrome G89.4 [place] [id number] [place] [address] Jun, Chronic pain syndrome G89.4 [facility] [address] [place] [id number] [place] [address] Jun, Severe major depression with psychotic features F32.3 and Posttraumatic stress disorder F43.10 [facility] [address] [place] [id number] [place] [address] Jun, Chronic pain syndrome G89.4 [facility] [address] [place] [id number] [place] [address] Jun, [facility] [address] [place] [id number] [place] [address] May, Chronic pain syndrome G89.4 [facility] [address] [place] [id number] [place] [address] May, Tobacco abuse Z72.0 [facility] [address] [place] [id number] [place] [address] May, [facility] [address] [place] [id number] [place] [address] Apr, Chronic pain syndrome G89.4 [facility] [address] [place] [address] [id number] [place] [address] Apr, [facility] [address] [place] [id number] [place] [address] Apr, Right foot pain M79.671 [facility] [address] [place] [id number] [place] [address] Mar, Type 2 diabetes mellitus with diabetic polyneuropathy E11.42 ; MITCHELL treated with BiPAP G47.33 ; Pure hypercholesterolemia E78.0 ; Chronic pain syndrome G89.4 ; Tobacco abuse Z72.0 and Obesity, morbid, BMI 40.0-49.9 E66.01 [facility] [address] [place] [address] [id number] [place] [address] Mar, [facility] [address], [place] [address] Mar, [facility] [address], [place] [address] Mar, [facility] [address], [place] [address] Mar, [facility] [id number] [place] [address] Mar, [facility] [address] [address] Mar, Severe major depression with psychotic features F32.3 and Posttraumatic stress disorder F43.10 [facility] [address] [address] Mar, [facility] [address] [place] [id number] [place] [address] Feb, [facility] [address], [place] [address] Feb, [facility] [address] [id number] [address] Jan, [facility] [address] [address] Jan, [facility] [address], [place] [address] Dec, Posttraumatic stress disorder F43.10 and Severe major depression with psychotic features F32.3 [facility] [address], [place] [address] Dec, Type 2 diabetes mellitus with diabetic polyneuropathy E11.42 ; Chronic pain syndrome G89.4 and Acute right-sided low back pain with right-sided sciatica M54.41 [facility] [address], [place] [address] Dec, [facility] [address], [place] [address] Dec, [facility] [address] [place] [address] Nov, [facility] [id number] [place] [address] Nov, [facility] [address] [place] [id number] [place] [address] Nov, [facility] [id number] [place] [address] Oct, [facility] [address] [place] [id number] [place] [address] Oct, [facility] [address] [place] [id number] [place] [address] Sep, Dental examination Z01.20 [facility] [address] [place] [id number] [place] [address] Sep, [facility] [address] [place] [address] Sep, Type 2 diabetes mellitus with diabetic polyneuropathy E11.42 ; Chronic pain syndrome G89.4 ; Chronic prescription opiate use Z79.891 ; Injury of right index finger, sequela S69.91XS and Anejaculation N50.8 [facility] [address] [place] [address] Aug, [facility] [id number] [place] [address] Aug, [facility] [id number] [place] [address] Aug, Cellulitis of finger of right hand L03.011 [facility] [address] [place] [address] July, [facility] [address] [place] [address] [id number] [place] [address] July, [facility] [address], [place] [address] Jun, Onychomycosis B35.1 [facility] [address], [place] [address] Jun, Severe major depression with psychotic features F32.3 and Posttraumatic stress disorder F43.10 [facility] [address], [place] [address] Jun, [facility] [address], [place] [address] Jun, [facility] [address], [place] [address] Jun, [facility] [address], [place] [address] May, Type 2 diabetes mellitus with diabetic polyneuropathy E11.42 [facility] [address], [place] [address] May, Type 2 diabetes mellitus with diabetic polyneuropathy E11.42 and Urinary hesitancy R39.11 [facility] [address], [place] [address] May, Type 2 diabetes mellitus with diabetic polyneuropathy E11.42 ; Left hip pain M25.552 and Benign prostatic hyperplasia with lower urinary tract symptoms, unspecified morphology N40.1 [facility] [address], [place] [address] May, [facility] [address], [place] [address] Apr, Severe major depression with psychotic features F32.3 and Posttraumatic stress disorder F43.10 [facility] [address], [place] [address] Apr, [facility] [id number] [place] [address] Mar, [facility] [id number] [place] [address] Mar, Dysuria R30.0 and Urinary hesitancy R39.11 [facility] [id number] [place] [address] Mar, Onychomycosis B35.1 [facility] [address] [place] [id number] [place] [address] Mar, [facility] [id number] [place] [address] Feb, [facility] [address] [place] [id number] [place] [address] Jan, [facility] [address] [place] [id number] [place] [address] Jan, Posttraumatic stress disorder F43.10 and Severe major depression with psychotic features F32.3 [facility] [id number] [place] [address] Jan, [facility] [address] [place] [id number] [place] [address] Jan, Chronic pain syndrome G89.4 ; Type 2 diabetes mellitus with diabetic polyneuropathy E11.42 ; Decreased pedal pulses R09.89 and Paresthesia of both hands R20.2 [facility] [address] [place] [address] Dec, Posttraumatic stress disorder F43.10 and Severe major depression with psychotic features F32.3 [facility] [id number] [place] [address] Dec, [facility] [id number] [place] [address] Dec, [facility] [id number] [place] [address] Dec, Onychomycosis B35.1 [place] [address] [place] [id number] [place] [address] Dec, [facility] [address] [place] [id number] [place] [address] Dec, [facility] [address] [place] [id number] [place] [address] Nov, [place] [address] [address] Oct, Depression, major, recurrent, moderate 296.32 and Posttraumatic stress disorder 309.81 [place] [address] [address] Oct, [place] [address] [place] [id number] [place] [address] Oct, [place] [address] [address] Oct, [place] [address] [place] [id number] [place] [address] Sep, Posttraumatic stress disorder 309.81 and Depression, major, recurrent, moderate 296.32 [place] [address] [place] [id number] [place] [address] Sep, [place] [address] [place] [id number] [place] [address] Sep, Chronic airway obstruction, not elsewhere classified 496 [place] [address] [place] [id number] [place] [address] Sep, Onychomycosis 110.1 and DM neuro manif type II 250.[address] [address] Sep, Chronic pain 338.29 ; Chronic airway obstruction, not elsewhere classified 496 ; Osteoarthritis of knees, bilateral 715.96 and On potassium wasting diuretic therapy V58.69 [place] [id number] [place] [address] Sep, Insect bites 919.4 ; Sinusitis 473.9 and GERD (gastroesophageal reflux disease) 530.81 [facility] [address], [place] [address] Aug, Depression, major, recurrent, moderate 296.32 and Posttraumatic stress disorder 309.81 [facility] [id number] [place] [address] Aug, [facility] [id number] [place] [address] Aug, [facility] [id number] [place] [address] Aug, [facility] [id number] [place] [address] July, Major depressive disorder, recurrent episode, moderate 296.32 and Posttraumatic stress disorder 309.81 [facility] [id number], [place] [address] July, [facility] [id number] [place] [address] July, [facility] [id number], [place] [address] July, [facility] [address], [place] [address] July, [facility] [id number] [place] [address] Jun, [facility] [address], [place] [address] Jun, [facility] [id number] [place] [address] May, [facility] [address], [place] [address] May, [facility] [address] [place] [address] [address] [place] [address] 18 May, 2014 [facility] [place] [facility] [address] [id number] [place] [address] 18 May, 2014 [facility] [place] [facility] [address] [id number] [place] [address] 18 May, 2014 [facility] [place] [facility] [address] [id number] [place] [address] May, 2014 [facility] [place] [facility] [address] [id number] [place] [address] May, 2014 [facility] [place] [facility] [address] [id number] [place] [address] May, [facility] [place] [facility] [address] [facility] [id number] [place] [address] May, [facility] [place] [facility] [address] [facility] [id number] [place] [address] Apr, 2014 [facility] [place] [facility] [address] [facility] [id number] [place] [address] Apr, 2014 [facility] [place] [facility] [address] [place] [id number] [place] [address] Apr, 2014 [facility] [place] [facility] [address] [facility] [id number] [place] [address] Apr, 2014 [facility] [place] [facility] [address] [facility] [id number] [place] [address] Apr, 2014 [facility] [place] [facility] [address] [facility] [id number] [place] [address] Apr, 2014 [facility] [place] [facility] [address] [facility] [id number] [place] [address] Apr, 2014 [facility] [place] [facility] [address] [facility] [id number] [address] Apr, 2014 [facility] [place] [facility] [address] [facility] [id number] [address] 04 Apr, 2014 [facility] [place] [facility] [address] [id number] [place] [address] 30 Mar, 2014 [facility] [place] [facility] [address] [id number] [place] [address] 30 Mar, 2014 [facility] [place] [facility] [address] [id number] [place] [address] Mar, [facility] [place] [facility] [address] [id number] [place] [address] Mar, [facility] [place] [facility] [address] [id number] [place] [address] Mar, [facility] [place] [facility] [address] [id number] [place] [address] 15 Mar, 2014 [facility] [place] [facility] [address] [id number] [place] [address] Mar, [facility] [place] [facility] [address] [id number], [place] [address] 15 Mar, 2014 [facility] [place] [facility] [address] [id number], [place] [address] Mar, [facility] [place] [facility] [address] [id number] [place] [address] 15 Mar, 2014 [facility] [place] [facility] [address] [id number] [address] 14 Mar, 2014 [facility] [place] [facility] [address] [id number] [address] 14 Mar, 2014 [facility] [place] [facility] [address] [id number] [place] [address] Mar, [facility] [place] [facility] [address] [id number] [address] 14 Mar, 2014 [facility] [place] [facility] [address] [id number] [address] 14 Mar, 2014 [facility] [place] [facility] [address] [id number] [place] [address] 14 Mar, 2014 [facility] [address] [id number] [place] [address] 09 Mar, 2014 [facility] [place] [facility] [address] [id number] [place] [address] 09 Mar, 2014 [facility] [address] [id number] [place] [address] 16 Feb, 2014 [facility] [place] [facility] [address] [id number] [place] [address] 16 Feb, 2014 [facility] [address] [id number] [place] [address] 15 Feb, 2014 [facility] [place] [facility] [address] [id number] [place] [address] 15 Feb, 2014 [facility] [address] [id number] [place] [address] 15 Feb, 2014 [facility] [address] [id number] [place] [address] 15 Feb, 2014 [facility] [place] [facility] [address] [id number] [place] [address] Jan, [facility] [address] [id number] [place] [address] Jan, [facility] [place] [facility] [address] [id number] [place] [address] Jan, [facility] [place] [facility] [address] [id number] [place] [address] Jan, [facility] [place] [facility] [address] [id number] [place] [address] Jan, [facility] [place] [facility] [address] [id number] [place] [address] Jan, [facility] [place] [facility] [address] [id number] [place] [address] Jan, [facility] [place] [facility] [address] [id number] [place] [address] Jan, [facility] [place] [facility] [address] [id number] [place] [address] Jan, [facility] [place] [facility] [address] [id number] [place] [address] Jan, [facility] [place] [facility] [address] [id number] [place] [address] Dec, [facility] [place] [facility] [address] [id number] [place] [address] Dec, [facility] [place] [facility] [address] [id number] [place] [address] Dec, [facility] [place] [facility] [address] [id number] [place] [address] Dec, [facility] [place] [facility] [address] [id number] [place] [address] 16 Nov, 2013 [facility] [place] [facility] [address] [id number] [place] [address] 16 Nov, 2013 [facility] [place] [facility] [address] [id number] [place] [address] Nov, [facility] [place] [facility] [address] [id number] [place] [address] Nov, [facility] [place] [facility] [address] [id number], [place] [address] Nov, 2013 [facility] [place] [facility] [address] [id number] [place] [address] Nov, [facility] [place] [facility] [address] [id number] [place] [address] Oct, [facility] [place] [facility] [address] [id number] [place] [address] Oct, [facility] [place] [facility] [address] [id number], [place] [address] Oct, [facility] [place] [facility] [address] [id number] [place] [address] Oct, [facility] [place] [facility] [address] [id number] [place] [address] Sep, [facility] [place] [facility] [address] [id number] [place] [address] Sep, [facility] [place] [facility] [address] [id number] [place] [address] Sep, [facility] [place] [facility] [address] [id number] [place] [address] Sep, [facility] [place] [facility] [address] [id number] [place] [address] Sep, [facility] [place] [facility] [address] [id number] [place] [address] Sep, [facility] [place] [facility] [address] [id number] [place] [address] July, [facility] [place] [facility] [address] [id number] [place] [address] July, [facility] [place] [facility] [address] [id number] [place] [address] July, [facility] [place] [facility] [address] [id number] [place] [address] July, [facility] [place] [facility] [address] [id number] [place] [address] Jun, [facility] [place] [facility] [address] [id number] [place] [address] Jun, [facility] [place] [facility] [address] [id number] [place] [address] Jun, [facility] [place] [facility] [address] [id number] [place] [address] Jun, [facility] [place] [facility] [address] [id number] [place] [address] Jun, [facility] [place] [facility] [address] [id number] [place] [address] Jun, [facility] [place] [facility] [address] [id number] [place] [address] May, [facility] [place] [facility] [address] [id number] [place] [address] May, [facility] [place] [facility] [address] [id number] [place] [address] Apr, [facility] [place] [facility] [address] [id number] [place] [address] Apr, [facility] [place] [facility] [address] [facility] [id number] [place] [address] Apr, [facility] [place] [facility] [address] [id number] [place] [address] Apr, [facility] [place] [facility] [address] [id number] [place] [address] Apr, [facility] [place] [facility] [address] [facility] [id number] [place] [address] Apr, [facility] [place] [facility] [address] [facility] [id number] [place] [address] Apr, [facility] [place] [facility] [address] [id number], [place] [address] Mar, [facility] [place] [facility] [address] [id number] [place] [address] Mar, [facility] [place] [facility] [address] [id number] [place] [address] Mar, [facility] [place] [facility] [address] [id number] [place] [address] Mar, [facility] [place] [facility] [address] [facility] [id number] [place] [address] Mar, [facility] [place] [facility] [address] [id number] [place] [address] Mar, [facility] [place] [facility] [address] [id number] [place] [address] Mar, [facility] [place] [facility] [address] [id number] [place] [address] Mar, [facility] [place] [facility] [address] [id number] [place] [address] Feb, [facility] [place] [facility] [address] [id number] [place] [address] Feb, [facility] [place] [facility] [address] [id number] [place] [address] Feb, [facility] [place] [facility] [address] [id number] [place] [address] Feb, [facility] [place] [facility] [address] [id number] [place] [address] Feb, [facility] [place] [facility] [address] [id number] [place] [address] Feb, [facility] [place] [facility] [address] [id number] [place] [address] Feb, [facility] [place] [facility] [address] [id number] [place] [address] Jan, [facility] [place] [facility] [address] [id number] [place] [address] Jan, [facility] [place] [facility] [address] [id number] [place] [address] Jan, [facility] [place] [facility] [address] [id number] [place] [address] Jan, [facility] [place] [facility] [address] [id number] [place] [address] Jan, [facility] [place] [facility] [address] [id number] [place] [address] Jan, [facility] [place] [facility] [address] [id number] [place] [id number] Jan, [facility] [place] [facility] [address] [id number] [place] [id number] Jan, [facility] [place] [facility] [address] [id number] [place] [address] Dec, [facility] [place] [facility] [address] [id number] [place] [address] Dec, [facility] [address] [id number] [place] [address] Dec, [facility] [place] [facility] [address] [id number] [place] [address] Dec, [facility] [address] [id number] [place] [address] Dec, [facility] [address] [id number] [address] Dec, [facility] [place] [facility] [address] [id number] [place] [address] Dec, [facility] [address] [id number], [place] [address] Dec, [facility] [place] [facility] [address] [id number], [place] [address] Dec, [facility] [place] [facility] [address] [id number] [address] Dec, [facility] [place] [facility] [address] [id number] [place] [id number] Nov, [facility] [place] [facility] [address] [id number] [place] [id number] Nov, [facility] [place] [facility] [address] [id number] [address] 24 Nov, 2012 [facility] [place] [facility] [address] [id number] [place] [address] 20 Nov, 2012 [facility] [place] [facility] [address] [id number] [place] [address] 19 Nov, 2012 [facility] [place] [facility] [address] [id number] [place] [address] 13 Nov, 2012 [facility] [place] [facility] [address] [id number] [place] [address] 10 Nov, 2012 [facility] [place] [facility] [address] [id number] [place] [address] 06 Nov, 2012 [facility] [place] [facility] [address] [id number] [place] [address] Oct, [facility] [place] [facility] [address] [id number] [place] [address] Oct, [facility] [place] [facility] [address] [id number] [place] [address] Oct, [facility] [place] [facility] [address] [id number] [place] [address] Sep, [facility] [place] [facility] [address] [id number] [place] [address] Sep, [facility] [place] [facility] [address] [id number] [place] [address] Sep, [facility] [place] [facility] [address] [id number] [place] [address] Sep, [facility] [place] [facility] [address] [id number] [place] [address] Sep, [facility] [place] [facility] [address] [id number] [place] [address] Aug, [facility] [place] [facility] [address] [id number] [place] [address] Aug, [facility] [place] [facility] [address] [id number] [place] [address] Aug, [facility] [address] [id number] [place] [address] Aug, [facility] [address] [id number] [place] [address] Aug, [facility] [address] [id number] [place] [address] Aug, [facility] [address] [id number] [place] [address] July, [facility] [address] [id number] [place] [address] July, [facility] [address] [id number] [place] [address] July, [facility] [address] [id number] [place] [address] July, [facility] [address] [id number] [place] [address] July, [facility] [address] [id number] [place] [address] July, [facility] [place] [facility] [address] [id number] [place] [address] Jun, [facility] [place] [facility] [address] [id number], [place] [address] Jun, [facility] [place] [facility] [address] [id number], [place] [address] Jun, [facility] [place] [facility] [address] [id number] [place] [address] Jun, [facility] [place] [facility] [address] [id number] [place] [address] May, [facility] [place] [facility] [address] [id number] [place] [address] May, [facility] [place] [facility] [address] [id number] [place] [address] 06 May, 2012 [facility] [address] [id number] [place] [address] Apr, [facility] [address] [id number] [place] [address] Mar, [facility] [address] [id number] [place] [address] 18 Mar, 2012 [facility] [address] [id number] [place] [address] 17 Mar, 2012 [facility] [address] [id number] [place] [address] 16 Mar, 2012 [facility] [address] [id number] [place] [address] 15 Mar, 2012 [facility] [address] [facility] [id number] [place] [address] Feb, [facility] [address] [id number] [place] [address] 31 Feb, 2012 [facility] [address] [id number] [place] [address] Feb, [facility] [address] [facility] [id number] [place] [address] 17 Feb, 2012 [facility] [address] [id number] [place] [address] Jan, [facility] [address] [id number] [place] [address] Jan, [facility] [address] [id number] [place] [address] Jan, [facility] [address] [id number] [place] [address] Jan, [facility] [address] [id number] [place] [address] Dec, [facility] [address] [id number] [place] [address] Dec, [facility] [address] [id number] [place] [address] Nov, [facility] [address] [id number] [place] [address] Oct, [facility] [address] [id number] [place] [address] Oct, [facility] [address] [id number] [place] [address] Oct, [facility] [address] [id number] [place] [address] Oct, [facility] [address] [id number] [place] [address] Oct, [facility] [address] [id number] [place] [address] Sep, [facility] [address] [id number] [place] [address] Sep, [facility] [address] [id number] [place] [address] Aug, [address] [id number] Aug, [facility] [address] [id number] [place] [address] Aug, [facility] [address] [id number] [place] [address] July, [facility] [address] [id number] [place] [address] July, [facility] [address] [id number] [place] [address] Jun, [facility] [address] [id number] [place] [address] Jun, [facility] [address] [id number] [place] [address] 16 Jun, 2011 [facility] [place] [facility] [address] [id number] [place] [address] Jun, [facility] [place] [facility] [address] [id number] [place] [address] 15 Apr, 2011 [facility] [place] [facility] [address] [id number] [place] [address] 15 Apr, 2011 [facility] [place] [facility] [address] [id number] [place] [address] Apr, [facility] [place] [facility] [address] [id number] [place] [address] Mar, [facility] [place] [facility] [address] [id number] [place] [address] Mar, [facility] [place] [facility] [address] [id number] [place] [address] Mar, [facility] [place] [facility] [address] [id number] [place] [address] Mar, [facility] [place] [facility] [address] [id number] [place] [address] Mar, [facility] [place] [facility] [address] [id number] [place] [address] Jan, [facility] [place] [facility] [address] [id number] [place] [address] Jan, [facility] [place] [facility] [address] [id number] [place] [address] Jan, [facility] [place] [facility] [address] [id number] [place] [address] 17 Mar, 2010 [facility] [place] [facility] [address] [id number] [place] [address] Mar, [facility] [place] [facility] [address] [facility] [id number] [place] [address] 20 Feb, 2010 [facility] [address] [facility] [id number] [place] [address] 16 Feb, 2010 [facility] [address] [id number] [place] [address] 16 Feb, 2010 [facility] [address] [facility] [id number] [place] [address] 17 Jan, 2010 [facility] [address] [id number] [place] [address] 17 Jan, 2010 [facility] [address] [facility] [id number] [place] [address] Dec, [facility] [address] [facility] [id number] [place] [address] 19 Dec, 2009 [facility] [address] [facility] [id number] [place] [address] 10 May, 2009 [facility] [address] [facility] [id number] [place] [address] 10 Apr, 2009 [facility] [address] [facility] [id number] [place] [address] 07 Feb, 2009 [facility] [address] [facility] [id number] [address] 03 Feb, 2009 [facility] [address] [facility] [id number] [address] 30 Jan, 2009 [facility] [address] [facility] [id number] [address] Jan, [facility] [address] [facility] [id number], [place] [address] Jan, [facility] [address] [facility] [id number] [address] Jan, [facility] [address] [facility] [id number], [place] [address] Jan, IMMUNIZATIONS No Known Immunizations SOCIAL HISTORY Never Assessed REASON FOR VISIT Controlled Medication Refill PLAN OF CARE VITAL SIGNS MEDICATIONS Medication Instructions Dosage Frequency Start Date End Date Duration Status MS Contin 30 MG Orally every 12 hrs 1 tablet 12h Jun, 28 days Active Hydrocodone-Acetaminophen 5-325 MG Orally every 6 hrs 1 tablet as needed 6h Jun, 28 days Active RESULTS No Results PROCEDURES [...]
--- OUTSIDE RECORDS SUMMARY | 2018-10-04 06:44 | XMS REPORT ---
Author Author DELILAH FEDERICO Organization [facility] Address [address] [place] [address] Care Team Providers Care Candy Supervisor Name Role Phone AGUILARPAWAN ADHIKARIA Unavailable PROBLEMS Type Condition ICD9-CM Code QIQ18-KV Code Onset Dates Condition Status SNOMED Code Problem Primary osteoarthritis of both knees M17.0 Active 239136748 Problem Nocturnal hypoxia G47.34 Active 436898267 Problem Chronic prescription opiate use Z79.891 Active 353081561 Problem Pure hypercholesterolemia E78.0 Active 385906395 Problem Acute right-sided low back pain with right-sided sciatica M54.41 Active 26744086 Problem Type 2 diabetes mellitus with diabetic polyneuropathy E11.42 Active 398443003 Problem Severe major depression with psychotic features F32.3 Active 09881289 Problem Obesity, morbid, BMI 40.0-49.9 E66.01 Active 440129932 Problem Posttraumatic stress disorder F43.10 Active 07463381 Problem Primary insomnia F51.01 Active 7048242 Problem Mood disorder F39 Active 73111548 Problem History of DVT (deep vein thrombosis) Z86.718 Active 788008462 Problem Chronic pain syndrome G89.4 Active 735698188 Problem Chronic systolic (congestive) heart failure I50.22 Active 786465084 Problem Macrocytosis D75.89 Active 820739573 Problem Tobacco abuse Z72.0 Active 261296685 Problem Mild episode of recurrent major depressive disorder F33.0 Active 041217203 Problem BMI 45.0-49.9, adult Z68.42 Active 752595003 Problem Gastroesophageal reflux disease, esophagitis presence not specified K21.9 Active 319901670 Problem Non-ischemic cardiomyopathy I42.9 Active 26100848 Problem Essential hypertension I10 Active 09136496 Problem Major depressive disorder, recurrent episode, unspecified severity F33.9 Active 72789916 Problem PTSD (post-traumatic stress disorder) F43.10 Active 00707400 Problem MITCHELL treated with BiPAP G47.33 Active 89608663 Problem Chronic obstructive pulmonary disease, unspecified COPD type J44.9 Active 64506937 Problem History of weight loss surgery Z98.84 Active 253683293 ALLERGIES Substance Reaction Event Type Date Status Trazodone HCl nausea and vomiting Drug Allergy May, Active Chantix nausea Drug Allergy May, Active ENCOUNTERS Encounter Location Date Diagnosis [place] [address] [address] Oct, [place] [address] [place] [id number] [place] [address] Oct, [place] [id number] [place] [address] Sep, Mood disorder F39 and Posttraumatic stress disorder F43.10 [place] [address] [id number] [place] [address] Aug, Primary osteoarthritis of both knees M17.0 and Chronic pain syndrome G89.4 [place] [id number] [place] [address] July, Primary osteoarthritis of both knees M17.0 and Chronic pain syndrome G89.4 [place] [id number] [place] [address] July, Type 2 diabetes mellitus with diabetic polyneuropathy E11.42 ; Essential hypertension I10 ; Pure hypercholesterolemia E78.0 ; Chronic prescription opiate use Z79.891 ; Tobacco abuse Z72.0 ; Primary osteoarthritis of both knees M17.0 ; Primary insomnia F51.01 and BMI 45.0-49.9, adult Z68.42 [place] [id number] [place] [address] July, Medicare annual wellness visit, initial Z00.00 [...] specified K21.9 and Encounter for immunization Z23 [facility] [address] [address] July, Primary osteoarthritis of both knees M17.0 and Chronic pain syndrome G89.[address] [facility] [address] [address] Jun, Infection of right ear H66.91 ; Wheezing on auscultation R06.2 and BMI 45.0-49.9, adult Z68.42 [place] [address] [address] Jun, [place] [address] [address] Jun, Primary osteoarthritis of both knees M17.0 and Chronic pain syndrome G89.4 [place] [address] [address] May, [facility] [address] [address] May, BMI 45.0-49.9, adult Z68.42 ; Mood disorder F39 and Posttraumatic stress disorder F43.10 [place] [address] [address] May, [facility] [address] [address] May, Primary osteoarthritis of both knees M17.0 and Chronic pain syndrome G89.4 [place] [address] [id number] [place] [address] May, Mood disorder F39 [place] [address] [place] [id number] [place] [address] 07 Apr, 2017 Type 2 diabetes mellitus with diabetic polyneuropathy E11.42 [place] [address] [address] Apr, [facility] [id number] [place] [address] Apr, Primary osteoarthritis of both knees M17.0 and Chronic pain syndrome G89.4 [facility] [id number] [place] [address] Apr, Mood disorder F39 [facility] [id number] [place] [address] Mar, Mood disorder F39 and Posttraumatic stress disorder F43.10 [facility] [id number] [place] [address] Mar, Primary osteoarthritis of both knees M17.0 and Chronic pain syndrome G89.4 [facility] [id number] [place] [address] Feb, Primary osteoarthritis of both knees M17.0 and Chronic pain syndrome G89.4 [facility] [id number] [place] [address] Feb, Mood disorder F39 [facility] [id number] [place] [address] Jan, Type 2 diabetes mellitus with diabetic polyneuropathy E11.42 ; Primary osteoarthritis of both knees M17.0 ; Mood disorder F39 ; Obesity, morbid, BMI 40.0-49.9 E66.01 ; Chronic prescription opiate use Z79.891 ; Acute suppurative otitis media of both ears without spontaneous rupture of tympanic membranes, recurrence not specified H66.003 and BMI 45.0-49.9, adult Z68.42 [facility] [address] [place] [address] Jan, Primary osteoarthritis of both knees M17.0 and Chronic pain syndrome G89.4 [facility] [address] [place] [address] Dec, Mood disorder F39 and Posttraumatic stress disorder F43.10 [facility] [address], [place] [address] 13 Dec, 2016 Primary osteoarthritis of both knees M17.0 and Chronic pain syndrome G89.4 [facility] [address] [place] [address] 18 Nov, 2016 Chronic pain syndrome G89.4 [facility] [address] [place] [id number] [place] [address] 15 Nov, 2016 Primary osteoarthritis of both knees M17.0 and Chronic pain syndrome G89.4 [facility] [id number] [place] [address] 13 Nov, 2016 Type 2 diabetes mellitus with diabetic polyneuropathy E11.42 and Chronic pain syndrome G89.4 [facility] [address] [id number] [place] [address] 12 Nov, 2016 Posttraumatic stress disorder F43.10 and Mood disorder F39 [facility] [id number] [place] [address] Oct, Chronic pain syndrome G89.4 [facility] [address] [place] [id number] [place] [address] Oct, Type 2 diabetes mellitus with diabetic polyneuropathy E11.42 ; BMI 45.0-49.9, adult Z68.42 ; Primary osteoarthritis of both knees M17.0 and Skin lesion L98.9 [facility] [address] [place] [address] Oct, Chronic pain syndrome G89.4 [facility] [address] [place] [address] Sep, Chronic pain syndrome G89.4 [facility] [address] [place] [address] Sep, [facility] [address], [place] [address] Sep, Chronic pain syndrome G89.4 [facility] [address], [place] [address] Aug, Chronic pain syndrome G89.4 [facility] [address] [place] [address] Aug, [facility] [id number] [place] [address] Aug, Macrocytosis D75.89 and Pure hypercholesterolemia E78.0 [facility] [address] [id number] [place] [address] Aug, Pure hypercholesterolemia E78.0 [facility] [address] [id number] [place] [address] Aug, Macrocytosis D75.89 [facility] [address] [place] [address] Aug, Pure hypercholesterolemia E78.0 ; Type 2 diabetes mellitus with diabetic polyneuropathy E11.42 ; MITCHELL treated with BiPAP G47.33 and Chronic pain syndrome G89.4 [facility] [address] [place] [address] Aug, [facility] [address] [place] [address] Aug, Hemorrhoids, unspecified hemorrhoid type K64.9 [facility] [address] [place] [address] Aug, Chronic pain syndrome G89.4 ; Type 2 diabetes mellitus with diabetic polyneuropathy E11.42 ; Hemorrhoids, unspecified hemorrhoid type K64.9 ; Tobacco abuse Z72.0 and Primary osteoarthritis of both knees M17.0 [facility] [address] [place] [address] July, Chronic pain syndrome G89.4 [facility] [address], [place] [address] July, [facility] [address] [place] [id number] [place] [address] Jun, Chronic pain syndrome G89.4 [facility] [address] [place] [id number] [place] [address] Jun, Chronic pain syndrome G89.4 [facility] [address] [place] [id number] [place] [address] Jun, Severe major depression with psychotic features F32.3 and Posttraumatic stress disorder F43.10 [facility] [address] [place] [id number] [place] [address] Jun, Chronic pain syndrome G89.4 [facility] [address] [place] [id number] [place] [address] Jun, [facility] [address] [place] [id number] [place] [address] May, Chronic pain syndrome G89.4 [facility] [address] [place] [id number] [place] [address] May, Tobacco abuse Z72.0 [facility] [address] [place] [id number] [place] [address] May, [facility] [address] [id number] [place] [address] Apr, Chronic pain syndrome G89.4 [facility] [address] [place] [id number] [place] [address] Apr, [facility] [address] [place] [id number] [place] [address] Apr, Right foot pain M79.671 [facility] [address] [place] [id number] [place] [address] Mar, Type 2 diabetes mellitus with diabetic polyneuropathy E11.42 ; MITCHELL treated with BiPAP G47.33 ; Pure hypercholesterolemia E78.0 ; Chronic pain syndrome G89.4 ; Tobacco abuse Z72.0 and Obesity, morbid, BMI 40.0-49.9 E66.01 [facility] [address], [place] [address] Mar, [facility] [address], [place] [address] Mar, [facility] [address], [place] [address] Mar, [facility] [address], [place] [address] Mar, [facility] [address], [place] [address] Mar, [facility] [address], [place] [address] Mar, Severe major depression with psychotic features F32.3 and Posttraumatic stress disorder F43.10 [facility] [address], [place] [address] Mar, [facility] [address], [place] [address] Feb, [facility] [address], [place] [address] Feb, [facility] [address], [place] [address] Jan, [facility] [address], [place] [address] Jan, [facility] [address], [place] [address] Dec, Posttraumatic stress disorder F43.10 and Severe major depression with psychotic features F32.3 [facility] [address], [place] [address] 11 Dec, 2015 Type 2 diabetes mellitus with diabetic polyneuropathy E11.42 ; Chronic pain syndrome G89.4 and Acute right-sided low back pain with right-sided sciatica M54.41 [facility] [address], [place] [address] Dec, [facility] [address] [id number] [place] [address] Dec, [facility] [address] [id number] [place] [address] Nov, [facility] [address] [id number] [place] [address] Nov, [facility] [address] [place] [id number] [place] [address] Nov, [facility] [address] [place] [id number] [place] [address] Oct, [facility] [address] [id number] [place] [address] Oct, [facility] [id number] [place] [address] Sep, Dental examination Z01.20 [facility] [address] [place] [id number] [place] [address] Sep, [facility] [id number] [place] [address] Sep, Type 2 diabetes mellitus with diabetic polyneuropathy E11.42 ; Chronic pain syndrome G89.4 ; Chronic prescription opiate use Z79.891 ; Injury of right index finger, sequela S69.91XS and Anejaculation N50.8 [facility] [address], [place] [address] Aug, [facility] [id number] [place] [address] Aug, [facility] [address] [place] [address] Aug, Cellulitis of finger of right hand L03.011 [facility] [address] [id number] [place] [address] July, [facility] [address], [place] [address] July, [facility] [address] [place] [address] Jun, Onychomycosis B35.1 [facility] [address] [place] [address] Jun, Severe major depression with psychotic features F32.3 and Posttraumatic stress disorder F43.10 [facility] [address], [place] [address] Jun, [facility] [address] [id number] [place] [address] Jun, [facility] [address], [place] [address] Jun, [facility] [address] [place] [address] May, Type 2 diabetes mellitus with diabetic polyneuropathy E11.42 [facility] [address] [place] [address] May, Type 2 diabetes mellitus with diabetic polyneuropathy E11.42 and Urinary hesitancy R39.11 [facility] [address], [place] [address] May, Type 2 diabetes mellitus with diabetic polyneuropathy E11.42 ; Left hip pain M25.552 and Benign prostatic hyperplasia with lower urinary tract symptoms, unspecified morphology N40.1 [facility] [address], [place] [address] May, [facility] [address] [place] [address] Apr, Severe major depression with psychotic features F32.3 and Posttraumatic stress disorder F43.10 [facility] [address] [place] [address] 08 Apr, 2015 [facility] [address] [place] [address] Mar, [facility] [address] [id number] [place] [address] Mar, Dysuria R30.0 and Urinary hesitancy R39.11 [facility] [address] [place] [id number] [place] [address] Mar, Onychomycosis B35.1 [facility] [address] [place] [address] Mar, [facility] [address] [id number] [place] [address] Feb, [facility] [id number] [place] [address] Jan, [facility] [id number] [place] [address] Jan, Posttraumatic stress disorder F43.10 and Severe major depression with psychotic features F32.3 [facility] [id number] [place] [address] Jan, [facility] [id number] [place] [address] Jan, Chronic pain syndrome G89.4 ; Type 2 diabetes mellitus with diabetic polyneuropathy E11.42 ; Decreased pedal pulses R09.89 and Paresthesia of both hands R20.2 [facility] [address] [place] [address] Dec, Posttraumatic stress disorder F43.10 and Severe major depression with psychotic features F32.3 [facility] [address] [place] [address] Dec, [facility] [id number] [place] [address] Dec, [facility] [address], [place] [address] Dec, Onychomycosis B35.1 [facility] [id number] [place] [address] Dec, [facility] [address], [place] [address] Dec, [facility] [id number] [place] [address] Nov, [facility] [address] [place] [address] Oct, Depression, major, recurrent, moderate 296.32 and Posttraumatic stress disorder 309.81 [facility] [address] [place] [address] Oct, [facility] [id number] [place] [address] Oct, [facility] [address] [place] [address] Oct, [facility] [address] [place] [address] Sep, Posttraumatic stress disorder 309.81 and Depression, major, recurrent, moderate 296.32 [facility] [address], [place] [address] Sep, [facility] [address] [place] [address] Sep, Chronic airway obstruction, not elsewhere classified [address] [id number] [place] [address] Sep, Onychomycosis 110.1 and DM neuro manif type II 250.60 [facility] [address], [place] [address] Sep, Chronic pain 338.29 ; Chronic airway obstruction, not elsewhere classified 496 ; Osteoarthritis of knees, bilateral 715.96 and On potassium wasting diuretic therapy V58.69 [facility] [id number] [place] [address] Sep, Insect bites 919.4 ; Sinusitis 473.9 and GERD (gastroesophageal reflux disease) 530.81 [facility] [id number] [place] [address] Aug, Depression, major, recurrent, moderate 296.32 and Posttraumatic stress disorder 309.81 [facility] [id number] [place] [address] Aug, [facility] [address] [address] Aug, [facility] [id number] [place] [address] Aug, [facility] [id number] [place] [address] July, Major depressive disorder, recurrent episode, moderate 296.32 and Posttraumatic stress disorder 309.81 [facility] [id number] [place] [address] July, [facility] [id number] [place] [address] July, [facility] [id number] [place] [address] July, [facility] [id number] [place] [address] July, [facility] [id number] [place] [address] Jun, [facility] [id number] [place] [address] Jun, [facility] [id number] [place] [address] May, [facility] [address] [place] [address] 20 May, 2014 [facility] [place] [facility] [address] [id number] [place] [address] 18 May, 2014 [facility] [place] [facility] [address] [id number] [place] [address] 18 May, 2014 [facility] [place] [facility] [address] [id number] [place] [address] 18 May, 2014 [facility] [place] [facility] [address] [id number] [place] [address] 18 May, 2014 [facility] [place] [facility] [address] [id number] [place] [address] May, 2014 [facility] [place] [facility] [address] [facility] [id number] [place] [address] May, 2014 [facility] [place] [facility] [address] [facility] [id number] [place] [address] May, 2014 [facility] [place] [facility] [address] [id number] [place] [address] Apr, 2014 [facility] [place] [facility] [address] [id number] [place] [address] Apr, 2014 [facility] [place] [facility] [address] [facility] [id number] [place] [address] Apr, 2014 [facility] [place] [facility] [address] [facility] [id number] [place] [address] Apr, 2014 [facility] [place] [facility] [address] [facility] [id number] [place] [address] Apr, 2014 [facility] [place] [facility] [address] [id number] [place] [address] 05 Apr, 2014 [facility] [place] [facility] [address] [facility] [id number] [place] [address] 05 Apr, 2014 [facility] [place] [facility] [address] [facility] [id number] [place] [address] Apr, [facility] [place] [facility] [address] [id number] [place] [address] Apr, [facility] [place] [facility] [address] [id number] [place] [address] Mar, [facility] [place] [facility] [address] [id number] [place] [address] Mar, [facility] [place] [facility] [address] [id number] [place] [address] Mar, [facility] [place] [facility] [address] [id number] [place] [address] Mar, [facility] [place] [facility] [address] [id number] [place] [address] Mar, [facility] [place] [facility] [address] [id number] [place] [address] Mar, [facility] [place] [facility] [address] [id number], [place] [address] Mar, [facility] [place] [facility] [address] [id number] [place] [address] Mar, [facility] [place] [facility] [address] [id number] [place] [address] Mar, [facility] [place] [facility] [address] [id number], [place] [address] Mar, [facility] [place] [facility] [address] [id number], [place] [address] 14 Mar, 2014 [facility] [place] [facility] [address] [id number] [place] [address] Mar, [facility] [place] [facility] [address] [id number], [place] [address] 14 Mar, 2014 [facility] [place] [facility] [address] [id number], [place] [address] Mar, [facility] [place] [facility] [address] [id number] [place] [address] 14 Mar, 2014 [facility] [place] [facility] [address] [id number] [place] [address] 14 Mar, 2014 [facility] [place] [facility] [address] [id number] [place] [address] 09 Mar, 2014 [facility] [place] [facility] [address] [id number] [place] [address] 09 Mar, 2014 [facility] [place] [facility] [address] [id number] [place] [address] 16 Feb, 2014 [facility] [place] [facility] [address] [id number] [place] [address] 16 Feb, 2014 [facility] [place] [facility] [address] [id number] [place] [address] 15 Feb, 2014 [facility] [place] [facility] [address] [id number] [place] [address] 15 Feb, 2014 [facility] [place] [facility] [address] [id number] [place] [address] 15 Feb, 2014 [facility] [place] [facility] [address] [id number] [place] [address] 15 Feb, 2014 [facility] [place] [facility] [address] [id number] [place] [address] Jan, [facility] [place] [facility] [address] [id number] [place] [address] Jan, [facility] [place] [facility] [address] [id number] [place] [address] Jan, [facility] [place] [facility] [address] [id number] [place] [address] Jan, [facility] [place] [facility] [address] [id number] [place] [address] Jan, [facility] [place] [facility] [address] [id number] [place] [address] Jan, [facility] [place] [facility] [address] [id number] [place] [address] Jan, [facility] [place] [facility] [address] [id number] [place] [address] Jan, [facility] [place] [facility] [address] [id number] [place] [address] Jan, [facility] [place] [facility] [address] [id number] [place] [address] Jan, [facility] [place] [facility] [address] [id number] [place] [address] Dec, [facility] [place] [facility] [address] [id number] [place] [address] Dec, [facility] [place] [facility] [address] [id number] [place] [address] Dec, [facility] [place] [facility] [address] [id number] [place] [address] Dec, [facility] [place] [facility] [address] [id number] [place] [address] 16 Nov, 2013 [facility] [place] [facility] [address] [id number] [place] [address] 16 Nov, 2013 [facility] [place] [facility] [address] [id number] [place] [address] Nov, [facility] [place] [facility] [address] [id number] [place] [address] Nov, 2013 [facility] [place] [facility] [address] [id number] [place] [address] Nov, [facility] [place] [facility] [address] [id number] [place] [address] Nov, [facility] [place] [facility] [address] [id number] [place] [address] Oct, [facility] [place] [facility] [address] [id number] [place] [address] Oct, [facility] [place] [facility] [address] [id number] [place] [address] Oct, [facility] [place] [facility] [address] [id number] [place] [address] Oct, [facility] [place] [facility] [address] [id number] [place] [address] Sep, [facility] [place] [facility] [address] [id number] [place] [address] Sep, [facility] [place] [facility] [address] [id number] [place] [address] Sep, [facility] [place] [facility] [address] [id number] [place] [address] Sep, [facility] [place] [facility] [address] [id number] [place] [address] Sep, [facility] [place] [facility] [address] [id number] [place] [address] Sep, [facility] [place] [facility] [address] [id number] [place] [address] July, [facility] [place] [facility] [address] [id number] [place] [address] July, [facility] [place] [facility] [address] [id number] [place] [address] July, [facility] [place] [facility] [address] [id number] [place] [address] July, [facility] [place] [facility] [address] [id number] [place] [address] Jun, [facility] [place] [facility] [address] [id number] [place] [address] Jun, [facility] [place] [facility] [address] [id number] [place] [address] Jun, [facility] [place] [facility] [address] [id number] [place] [address] Jun, [facility] [place] [facility] [address] [id number] [place] [address] Jun, [facility] [place] [facility] [address] [id number] [place] [address] Jun, [facility] [place] [facility] [address] [id number] [place] [address] May, [facility] [place] [facility] [address] [id number] [place] [address] May, [facility] [place] [facility] [address] [id number] [place] [address] Apr, [facility] [place] [facility] [address] [facility] [id number] [place] [address] Apr, [facility] [place] [facility] [address] [id number] [place] [address] Apr, [facility] [place] [facility] [address] [id number] [place] [address] Apr, [facility] [place] [facility] [address] [id number] [place] [address] Apr, [facility] [place] [facility] [address] [facility] [id number] [place] [address] Apr, [facility] [place] [facility] [address] [id number] [place] [address] Apr, [facility] [place] [facility] [address] [id number] [place] [address] Mar, [facility] [place] [facility] [address] [id number] [place] [address] Mar, [facility] [place] [facility] [address] [id number] [place] [address] Mar, [facility] [place] [facility] [address] [id number] [place] [address] Mar, [facility] [place] [facility] [address] [id number] [place] [address] Mar, [facility] [place] [facility] [address] [id number] [place] [address] Mar, [facility] [place] [facility] [address] [id number] [place] [address] Mar, [facility] [place] [facility] [address] [id number] [place] [address] Mar, [facility] [place] [facility] [address] [id number] [place] [address] Feb, [facility] [place] [facility] [address] [id number] [place] [address] Feb, [facility] [place] [facility] [address] [id number] [place] [address] Feb, [facility] [place] [facility] [address] [id number] [place] [address] Feb, [facility] [place] [facility] [address] [id number] [place] [address] Feb, [facility] [place] [facility] [address] [id number] [place] [address] Feb, [facility] [place] [facility] [address] [id number], [place] [address] Feb, [facility] [place] [facility] [address] [id number], [place] [address] Jan, [facility] [place] [facility] [address] [id number] [place] [address] Jan, [facility] [place] [facility] [address] [id number] [place] [address] Jan, [facility] [place] [facility] [address] [id number] [place] [address] Jan, [facility] [place] [facility] [address] [id number] [place] [address] Jan, [facility] [place] [facility] [address] [id number] [place] [address] Jan, [facility] [place] [facility] [address] [id number] [place] [id number] Jan, [facility] [place] [facility] [address] [id number] [place] [address] Jan, [facility] [place] [facility] [address] [id number] [place] [address] Dec, [facility] [place] [facility] [address] [id number] [place] [address] Dec, [facility] [place] [facility] [address] [id number] [place] [address] Dec, [facility] [place] [facility] [address] [id number] [place] [address] Dec, [facility] [place] [facility] [address] [id number] [place] [address] Dec, [facility] [place] [facility] [address] [id number] [place] [address] Dec, [facility] [place] [facility] [address] [id number] [place] [address] Dec, [facility] [place] [facility] [address] [id number] [place] [address] Dec, [facility] [place] [facility] [address] [id number], [place] [address] Dec, [facility] [place] [facility] [address] [id number] [place] [address] Dec, [facility] [place] [facility] [address] [id number] [place] [id number] Nov, [facility] [place] [facility] [address] [id number] [place] [id number] Nov, [facility] [place] [facility] [address] [id number] [place] [address] 24 Nov, 2012 [facility] [place] [facility] [address] [id number] [place] [address] 20 Nov, 2012 [facility] [place] [facility] [address] [id number] [place] [address] Nov, [facility] [place] [facility] [address] [id number] [place] [address] 13 Nov, 2012 [facility] [place] [facility] [address] [id number] [place] [address] 10 Nov, 2012 [facility] [place] [facility] [address] [id number] [place] [address] Nov, [facility] [place] [facility] [address] [id number] [place] [address] Oct, [facility] [place] [facility] [address] [id number] [place] [address] Oct, [facility] [place] [facility] [address] [id number] [place] [address] Oct, [facility] [place] [facility] [address] [id number] [place] [address] Sep, [facility] [place] [facility] [address] [id number] [place] [address] Sep, [facility] [place] [facility] [address] [id number] [place] [address] Sep, [facility] [place] [facility] [address] [id number] [place] [address] Sep, [facility] [place] [facility] [address] [id number] [place] [address] Sep, [facility] [place] [facility] [address] [id number] [place] [address] Aug, [facility] [place] [facility] [address] [id number] [place] [address] Aug, [facility] [address] [id number] [place] [address] Aug, [facility] [place] [facility] [address] [id number] [place] [address] Aug, [facility] [place] [facility] [address] [id number] [place] [address] Aug, [facility] [place] [facility] [address] [id number] [place] [address] Aug, [facility] [address] [id number] [place] [address] July, [facility] [place] [facility] [address] [id number] [place] [address] July, [facility] [place] [facility] [address] [id number] [place] [address] July, [facility] [place] [facility] [address] [id number] [place] [address] July, [facility] [place] [facility] [address] [id number] [place] [address] July, [facility] [place] [facility] [address] [id number] [place] [address] July, [facility] [place] [facility] [address] [id number] [place] [address] Jun, [facility] [place] [facility] [address] [id number], [place] [address] Jun, [facility] [place] [facility] [address] [id number] [place] [address] Jun, [facility] [place] [facility] [address] [id number] [place] [address] Jun, [facility] [place] [facility] [address] [id number] [place] [address] May, [facility] [place] [facility] [address] [id number] [place] [address] 15 May, 2012 [facility] [address] [id number] [place] [address] 06 May, 2012 [facility] [place] [facility] [address] [id number] [place] [address] 19 Apr, 2012 [facility] [address] [id number] [place] [address] 21 Mar, 2012 [facility] [place] [facility] [address] [id number] [place] [address] 18 Mar, 2012 [facility] [address] [id number] [place] [address] 17 Mar, 2012 [facility] [place] [facility] [address] [id number] [place] [address] 16 Mar, 2012 [facility] [address] [id number] [place] [address] 15 Mar, 2012 [facility] [address] [id number] [place] [address] 31 Feb, 2012 [facility] [place] [facility] [address] [id number] [place] [address] 31 Feb, 2012 [facility] [address] [facility] [id number] [place] [address] 17 Feb, 2012 [facility] [place] [facility] [address] [id number] [place] [address] 17 Feb, 2012 [facility] [place] [facility] [address] [id number] [place] [address] Jan, [facility] [place] [facility] [address] [id number] [place] [address] Jan, [facility] [place] [facility] [address] [id number] [place] [address] Jan, [facility] [place] [facility] [address] [id number] [place] [address] Jan, [facility] [place] [facility] [address] [id number] [place] [address] Dec, [facility] [address] [id number] [place] [address] Dec, [facility] [address] [id number] [place] [address] Nov, [facility] [address] [id number] [place] [address] Oct, [facility] [address] [id number] [place] [address] Oct, [facility] [address] [id number] [place] [address] Oct, [facility] [address] [id number] [place] [address] Oct, [facility] [address] [id number] [place] [address] Oct, [facility] [address] [id number] [place] [address] Sep, [facility] [address] [id number] [place] [address] Sep, [facility] [address] [id number] [place] [address] Aug, [address] [id number] Aug, [facility] [address] [id number] [place] [address] Aug, [facility] [address] [id number] [place] [address] July, [facility] [address] [id number] [place] [address] July, [facility] [address] [id number] [place] [address] Jun, [facility] [address] [id number] [place] [address] 23 Jun, 2011 [facility] [place] [facility] [address] [id number] [place] [address] 16 Jun, 2011 [facility] [place] [facility] [address] [id number] [place] [address] 13 Jun, 2011 [facility] [place] [facility] [address] [id number] [place] [address] 15 Apr, 2011 [facility] [place] [facility] [address] [id number] [place] [address] 15 Apr, 2011 [facility] [place] [facility] [address] [id number] [place] [address] 10 Apr, 2011 [facility] [place] [facility] [address] [id number] [place] [address] Mar, [facility] [place] [facility] [address] [id number] [place] [address] Mar, [facility] [place] [facility] [address] [id number] [place] [address] Mar, [facility] [place] [facility] [address] [id number] [place] [address] Mar, [facility] [place] [facility] [address] [id number] [place] [address] Mar, [facility] [place] [facility] [address] [id number], [place] [address] Jan, [facility] [place] [facility] [address] [id number] [place] [address] Jan, [facility] [place] [facility] [address] [id number] [place] [address] Jan, [facility] [place] [facility] [address] [id number] [place] [address] 17 Mar, 2010 [facility] [place] [facility] [address] [id number] [place] [address] 11 Mar, 2010 [facility] [place] [facility] [address] [id number] [place] [address] 20 Feb, 2010 [facility] [place] [facility] [address] [id number] [place] [address] 16 Feb, 2010 [facility] [place] [facility] [address] [id number] [place] [address] 16 Feb, 2010 [facility] [place] [facility] [address] [id number] [place] [address] 17 Jan, 2010 [facility] [place] [facility] [address] [id number] [place] [address] 17 Jan, 2010 [facility] [place] [facility] [address] [id number] [place] [address] 19 Dec, 2009 [facility] [place] [facility] [address] [id number] [place] [address] Dec, [facility] [place] [facility] [address] [id number] [place] [address] 10 May, 2009 [facility] [place] [facility] [address] [id number] [place] [address] 10 Apr, 2009 [facility] [place] [facility] [address] [facility] [id number] [place] [address] 07 Feb, 2009 [facility] [place] [facility] [address] [id number] [place] [address] 03 Feb, 2009 [facility] [place] [facility] [address] [id number], [place] [address] 30 Jan, 2009 [facility] [place] [facility] [address] [id number] [place] [address] Jan, [facility] [place] [facility] [address] [id number] [place] [address] Jan, [facility] [place] [facility] [address] [id number], [place] [address] Jan, [facility] [address] [facility] [id number] [place] [address] Jan, IMMUNIZATIONS No Known Immunizations SOCIAL HISTORY Never Assessed REASON FOR VISIT f/u Pj PLAN OF CARE Activity Details Follow Up 4 Months Reason: VITAL SIGNS Height 66 in 2017-05-26 Weight 300.8 lbs 2017-05-26 Heart Rate 84 bpm 2017-05-26 Respiratory Rate 22 2017-05-26 BMI 48.55 kg/m2 2017-05-26 Blood pressure systolic 130 mmHg 2017-05-26 Blood pressure diastolic 92 mmHg 2017-05-26 MEDICATIONS Medication Instructions Dosage Frequency Start Date End Date Duration Status HydrOXYzine Pamoate 50 MG Orally three times a day as needed for anxiety and sleep 1-2 capsules Active Atorvastatin Calcium 40 MG TAKE ONE TABLET BY MOUTH ONCE DAILY. DUE FOR FASTING LABS 30 Active Ventolin HFA 108 (90 Base) MCG/ACT Inhalation every 4 hrs 2 puffs as needed 4h Mar, Active Pantoprazole Sodium 40 MG TAKE ONE TABLET BY MOUTH ONCE DAILY 30 Active Metformin HCl 500 mg Orally Twice a day 1 tablet with meals 12h 90 Active Prozac 10 MG Orally Once a day 1 capsule in the morning 24h Jun, Active Pen [place] 31G X 6 MM as directed 24h May, Active Lidocaine HCl 2 % Externally Three times a day 1 application to affected area as needed 8h Aug, 14 days Active Clickfine Pen [place] 31 gauge ONE - DAILY E11.42 100 Active Insulin Syringe 31G X 5/16 subcutaneously Once a day as directed 24h Aug, Active Invega 6 MG Orally Once a day 2 tablets 24h Active Cyclobenzaprine HCl 10 MG TAKE ONE TABLET BY MOUTH THREE TIMES DAILY NEEDED 10 Active Pataday 0.2 % Ophthalmic 2 times a day 1 drop to affected eyes 12h Mar, Active Hydrocortisone 1 % Externally Twice a day for up to 2 weeks 1 application to affected area Aug, 14 days Active Gabapentin 600 MG Orally 3 times a day 2 tablets 8h 30 days Active Prozac 40 MG Orally Once a day 1 capsule 24h 30 days Active MS Contin 30 MG Orally every 12 hrs 1 tablet 12h May, 28 days Active Victoza 18 MG/3ML Subcutaneous Once a day 1.2 mg 24h Aug, Active Ibuprofen 800 MG TAKE ONE TABLET BY MOUTH THREE TIMES DAILY NEEDED 90 Active Hydrocodone-Acetaminophen 5-325 MG Orally every 6 hrs 1 tablet as needed 6h May, 28 days Active Penlac 8 % Externally Once a day 1 drop to affected area 24h Dec, Active RESULTS No Results PROCEDURES Procedure Date Ordered Result Body Site FORMERLY [facility], [facility]–1983 VISIT ESTABLISHED PATIENT May 26, 2017 INSTRUCTIONS MEDICATIONS ADMINISTERED No Known Medications [...] History ED then admitted to [facility]-cardiac stepdown-chest pain 02/2010 Hospitalization History Possible DVT-sono negative 06/2010 Hospitalization History cellulitis to bilat legs
--- OUTSIDE RECORDS SUMMARY | 2018-10-04 06:45 | XMS REPORT ---
Author Author KATHY ESTHER [facility] Address [address] [place] [address] Care Team Providers Care Supervisory Civil Engineer Name Role Phone KATHYBRIAN VILLEGASY Unavailable PROBLEMS Type Condition ICD9-CM Code [id number] Code Onset Dates Condition Status SNOMED Code Problem Primary osteoarthritis of both knees M17.0 Active 425766961 Problem Nocturnal hypoxia G47.34 Active 065753792 Problem Chronic prescription opiate use Z79.891 Active 890393846 Problem Pure hypercholesterolemia E78.0 Active 932086829 Problem Acute right-sided low back pain with right-sided sciatica M54.41 Active 55612110 Problem Type 2 diabetes mellitus with diabetic polyneuropathy E11.42 Active 751315413 Problem Severe major depression with psychotic features F32.3 Active 64781612 Problem Obesity, morbid, BMI 40.0-49.9 E66.01 Active 499940538 Problem Posttraumatic stress disorder F43.10 Active 96213590 Problem Primary insomnia F51.01 Active 3164761 Problem Mood disorder F39 Active 37235061 Problem History of DVT (deep vein thrombosis) Z86.718 Active 605219337 Problem Chronic pain syndrome G89.4 Active 599408520 Problem Chronic systolic (congestive) heart failure I50.22 Active 256796476 Problem Macrocytosis D75.89 Active 958868822 Problem Tobacco abuse Z72.0 Active 277526592 Problem Mild episode of recurrent major depressive disorder F33.0 Active 624103477 Problem BMI 45.0-49.9, adult Z68.42 Active 359822102 Problem Gastroesophageal reflux disease, esophagitis presence not specified K21.9 Active 327948473 Problem Non-ischemic cardiomyopathy I42.9 Active 65223979 Problem Essential hypertension I10 Active 03933525 Problem Major depressive disorder, recurrent episode, unspecified severity F33.9 Active 69471268 Problem PTSD (post-traumatic stress disorder) F43.10 Active 75247598 Problem MITCHELL treated with BiPAP G47.33 Active 46123517 Problem Chronic obstructive pulmonary disease, unspecified COPD type J44.9 Active 46618533 Problem History of weight loss surgery Z98.84 Active 188485955 ALLERGIES No Information ENCOUNTERS Encounter Location Date Diagnosis [place] [id number] [place] [address] Oct, [place] [address] [place] [id number] [place] [address] Sep, [place] [address] [place] [id number] [place] [address] Aug, Primary osteoarthritis of both knees M17.0 and Chronic pain syndrome G89.4 [place] [address] [address] July, Primary osteoarthritis of both knees M17.0 and Chronic pain syndrome G89.4 [place] [address] [place] [id number] [place] [address] July, Type 2 diabetes mellitus with diabetic polyneuropathy E11.42 ; Essential hypertension I10 ; Pure hypercholesterolemia E78.0 ; Chronic prescription opiate use Z79.891 ; Tobacco abuse Z72.0 ; Primary osteoarthritis of both knees M17.0 ; Primary insomnia F51.01 and BMI 45.0-49.9, adult Z68.42 [place] [address] [place] [address] July, Medicare annual wellness visit, initial Z00.00 [...] specified K21.9 and Encounter for immunization Z23 [place] [address] [place] [id number] [place] [address] July, Primary osteoarthritis of both knees M17.0 and Chronic pain syndrome G89.4 [facility] [address] [place] [address] Jun, Infection of right ear H66.91 ; Wheezing on auscultation R06.2 and BMI 45.0-49.9, adult Z68.42 [facility] [address] [id number] [place] [address] Jun, [facility] [address] [id number] [place] [address] Jun, Primary osteoarthritis of both knees M17.0 and Chronic pain syndrome G89.4 [facility] [address] [place] [id number] [place] [address] May, [facility] [address] [place] [id number] [place] [address] May, BMI 45.0-49.9, adult Z68.42 ; Mood disorder F39 and Posttraumatic stress disorder F43.10 [facility] [address] [id number] [place] [address] May, [facility] [address] [place] [id number] [place] [address] May, Primary osteoarthritis of both knees M17.0 and Chronic pain syndrome G89.4 [facility] [address] [id number] [place] [address] May, Mood disorder F39 [facility] [address] [place] [id number] [place] [address] Apr, Type 2 diabetes mellitus with diabetic polyneuropathy E11.42 [facility] [address] [place] [id number] [place] [address] Apr, [facility] [address] [place] [address] [id number] [place] [address] Apr, Primary osteoarthritis of both knees M17.0 and Chronic pain syndrome G89.4 [facility] [address] [address] Apr, Mood disorder F39 [facility] [address] [id number] [place] [address] Mar, Mood disorder F39 and Posttraumatic stress disorder F43.10 [facility] [address] [place] [address] Mar, Primary osteoarthritis of both knees M17.0 and Chronic pain syndrome G89.4 [facility] [address] [place] [id number] [place] [address] Feb, Primary osteoarthritis of both knees M17.0 and Chronic pain syndrome G89.4 [facility] [address] [place] [address] Feb, Mood disorder F39 [place] [address] [place] [id number] [place] [address] Jan, Type 2 diabetes mellitus with diabetic polyneuropathy E11.42 ; Primary osteoarthritis of both knees M17.0 ; Mood disorder F39 ; Obesity, morbid, BMI 40.0-49.9 E66.01 ; Chronic prescription opiate use Z79.891 ; Acute suppurative otitis media of both ears without spontaneous rupture of tympanic membranes, recurrence not specified H66.003 and BMI 45.0-49.9, adult Z68.42 [facility] [address] [place] [address] Jan, Primary osteoarthritis of both knees M17.0 and Chronic pain syndrome G89.4 [facility] [address] [address] Dec, Mood disorder F39 and Posttraumatic stress disorder F43.10 [facility] [address] [place] [address] Dec, Primary osteoarthritis of both knees M17.0 and Chronic pain syndrome G89.4 [facility] [address] [place] [address] 18 Nov, 2016 Chronic pain syndrome G89.4 [facility] [id number] [place] [address] 15 Nov, 2016 Primary osteoarthritis of both knees M17.0 and Chronic pain syndrome G89.4 [facility] [address] [place] [id number] [place] [address] 13 Nov, 2016 Type 2 diabetes mellitus with diabetic polyneuropathy E11.42 and Chronic pain syndrome G89.4 [facility] [address] [place] [id number] [place] [address] 12 Nov, 2016 Posttraumatic stress disorder F43.10 and Mood disorder F39 [facility] [address] [place] [id number] [place] [address] 18 Oct, 2016 Chronic pain syndrome G89.4 [facility] [address] [place] [id number] [place] [address] 16 Oct, 2016 Type 2 diabetes mellitus with diabetic polyneuropathy E11.42 ; BMI 45.0-49.9, adult Z68.42 ; Primary osteoarthritis of both knees M17.0 and Skin lesion L98.9 [facility] [address] [place] [id number] [place] [address] Oct, Chronic pain syndrome G89.4 [facility] [address] [place] [id number] [place] [address] Sep, Chronic pain syndrome G89.4 [facility] [address] [place] [id number] [place] [address] Sep, [facility] [id number] [place] [address] Sep, Chronic pain syndrome G89.4 [facility] [address] [place] [id number] [place] [address] Aug, Chronic pain syndrome G89.4 [facility] [address] [place] [id number] [place] [address] Aug, [facility] [address] [address] Aug, Macrocytosis D75.89 and Pure hypercholesterolemia E78.0 [facility] [address] [place] [id number] [place] [address] Aug, Pure hypercholesterolemia E78.0 [facility] [address] [place] [id number] [place] [address] Aug, Macrocytosis D75.89 [facility] [address] [place] [id number] [place] [address] Aug, Pure hypercholesterolemia E78.0 ; Type 2 diabetes mellitus with diabetic polyneuropathy E11.42 ; MITCHELL treated with BiPAP G47.33 and Chronic pain syndrome G89.4 [place] [address] [place] [id number] [place] [address] Aug, [place] [address] [place] [id number] [place] [address] Aug, Hemorrhoids, unspecified hemorrhoid type K64.9 [place] [address] [place] [id number] [place] [address] Aug, Chronic pain syndrome G89.4 ; Type 2 diabetes mellitus with diabetic polyneuropathy E11.42 ; Hemorrhoids, unspecified hemorrhoid type K64.9 ; Tobacco abuse Z72.0 and Primary osteoarthritis of both knees M17.0 [place] [address] [place] [address] July, Chronic pain syndrome G89.4 [facility] [address] [address] July, [facility] [address] [place] [id number] [place] [address] Jun, Chronic pain syndrome G89.4 [facility] [address] [place] [address] Jun, Chronic pain syndrome G89.4 [facility] [address] [place] [id number] [place] [address] Jun, Severe major depression with psychotic features F32.3 and Posttraumatic stress disorder F43.10 [facility] [address] [place] [id number] [place] [address] Jun, Chronic pain syndrome G89.4 [facility] [address] [place] [id number] [place] [address] Jun, [facility] [address] [address] May, Chronic pain syndrome G89.4 [facility] [address] [address] May, Tobacco abuse Z72.0 [place] [address] [place] [id number] [place] [address] May, [facility] [address] [address] Apr, Chronic pain syndrome G89.4 [facility] [address] [place] [id number] [place] [address] Apr, [place] [address] [place] [id number] [place] [address] Apr, Right foot pain M79.671 [place] [address] [place] [id number] [place] [address] Mar, Type 2 diabetes mellitus with diabetic polyneuropathy E11.42 ; MITCHELL treated with BiPAP G47.33 ; Pure hypercholesterolemia E78.0 ; Chronic pain syndrome G89.4 ; Tobacco abuse Z72.0 and Obesity, morbid, BMI 40.0-49.9 E66.01 [facility] [address] [place] [id number] [place] [address] Mar, [facility] [address] [place] [id number] [place] [address] Mar, [facility] [address] [address] Mar, [facility] [address] [address] Mar, [facility] [address] [address] Mar, [facility] [address] [place] [address] Mar, Severe major depression with psychotic features F32.3 and Posttraumatic stress disorder F43.10 [facility] [address] [address] Mar, [facility] [id number] [place] [address] Feb, [facility] [address] [place] [id number] [place] [address] Feb, [facility] [id number] [place] [address] Jan, [facility] [id number] [place] [address] Jan, [facility] [address] [place] [address] Dec, Posttraumatic stress disorder F43.10 and Severe major depression with psychotic features F32.3 [facility] [address] [address] Dec, Type 2 diabetes mellitus with diabetic polyneuropathy E11.42 ; Chronic pain syndrome G89.4 and Acute right-sided low back pain with right-sided sciatica M54.41 [facility] [address] [address] Dec, [facility] [address], [place] [address] Dec, [facility] [id number] [place] [address] Nov, [facility] [address] [place] [id number] [place] [address] Nov, [facility] [address] [place] [id number] [place] [address] Nov, [facility] [address] [place] [id number] [place] [address] Oct, [facility] [address] [address] Oct, [facility] [address] [address] Sep, Dental examination Z01.20 [facility] [address] [place] [id number] [place] [address] Sep, [facility] [address] [address] Sep, Type 2 diabetes mellitus with diabetic polyneuropathy E11.42 ; Chronic pain syndrome G89.4 ; Chronic prescription opiate use Z79.891 ; Injury of right index finger, sequela S69.91XS and Anejaculation N50.8 [facility] [address] [place] [id number] [place] [address] Aug, [facility] [address] [place] [id number] [place] [address] Aug, [facility] [address] [place] [id number] [place] [address] Aug, Cellulitis of finger of right hand L03.011 [facility] [address] [address] July, [facility] [address] [place] [id number] [place] [address] July, [facility] [address] [place] [id number] [place] [address] Jun, Onychomycosis B35.1 [facility] [address] [address] Jun, Severe major depression with psychotic features F32.3 and Posttraumatic stress disorder F43.10 [facility] [address], [place] [address] Jun, [facility] [address] [place] [id number] [place] [address] Jun, [facility] [address] [place] [address] Jun, [facility] [address] [place] [id number] [place] [address] May, Type 2 diabetes mellitus with diabetic polyneuropathy E11.42 [place] [address] [place] [id number] [place] [address] May, Type 2 diabetes mellitus with diabetic polyneuropathy E11.42 and Urinary hesitancy R39.11 [facility] [address] [place] [id number] [place] [address] May, Type 2 diabetes mellitus with diabetic polyneuropathy E11.42 ; Left hip pain M25.552 and Benign prostatic hyperplasia with lower urinary tract symptoms, unspecified morphology N40.1 [facility] [address] [address] May, [facility] [address] [place] [id number] [place] [address] Apr, Severe major depression with psychotic features F32.3 and Posttraumatic stress disorder F43.10 [facility] [address] [place] [id number] [place] [address] Apr, [facility] [address] [address] Mar, [facility] [address] [place] [id number] [place] [address] Mar, Dysuria R30.0 and Urinary hesitancy R39.11 [facility] [address] [address] Mar, Onychomycosis B35.1 [facility] [address] [address] 08 Mar, 2015 [facility] [address] [place] [id number] [place] [address] Feb, [facility] [address] [place] [id number] [place] [address] Jan, [facility] [address] [place] [id number] [place] [address] Jan, Posttraumatic stress disorder F43.10 and Severe major depression with psychotic features F32.3 [facility] [address] [place] [id number] [place] [address] Jan, [facility] [address] [place] [id number] [place] [address] Jan, Chronic pain syndrome G89.4 ; Type 2 diabetes mellitus with diabetic polyneuropathy E11.42 ; Decreased pedal pulses R09.89 and Paresthesia of both hands R20.2 [facility] [address], [place] [address] Dec, Posttraumatic stress disorder F43.10 and Severe major depression with psychotic features F32.3 [facility] [address] [address] Dec, [facility] [id number] [place] [address] Dec, [facility] [address] [place] [id number] [place] [address] Dec, Onychomycosis B35.1 [facility] [address] [address] Dec, [facility] [address], [place] [address] Dec, [facility] [address] [place] [id number] [place] [address] Nov, [facility] [address] [place] [id number] [place] [address] Oct, Depression, major, recurrent, moderate 296.32 and Posttraumatic stress disorder 309.81 [place] [address] [place] [id number] [place] [address] Oct, [facility] [address] [place] [id number] [place] [address] Oct, [place] [address] [place] [id number] [place] [address] Oct, [place] [address] [place] [id number] [place] [address] Sep, Posttraumatic stress disorder 309.81 and Depression, major, recurrent, moderate 296.32 [place] [address] [place] [id number] [place] [address] Sep, [place] [id number] [place] [address] Sep, Chronic airway obstruction, not elsewhere classified [address] [id number] [place] [address] Sep, Onychomycosis 110.1 and DM neuro manif type II 250.60 [place] [id number] [place] [address] Sep, Chronic pain 338.29 ; Chronic airway obstruction, not elsewhere classified 496 ; Osteoarthritis of knees, bilateral 715.96 and On potassium wasting diuretic therapy V58.69 [address] [place] [address] Sep, Insect bites 919.4 ; Sinusitis 473.9 and GERD (gastroesophageal reflux disease) 530.81 [place] [address] [place] [id number] [address] Aug, Depression, major, recurrent, moderate 296.32 and Posttraumatic stress disorder 309.81 [facility] [id number] [address] Aug, [facility] [id number] [address] Aug, [facility] [address] [facility] [id number] [place] [address] Aug, [facility] [id number] [address] July, Major depressive disorder, recurrent episode, moderate 296.32 and Posttraumatic stress disorder 309.81 [facility] [address] [address] July, [facility] [id number] [address] July, [facility] [address] [address] July, [facility] [address], [place] [address] July, [facility] [address], [place] [address] Jun, [facility] [address], [place] [address] Jun, [facility] [id number] [address] May, [facility] [address], [place] [address] May, [facility] [id number] [address] May, [facility] [address], [place] [address] May, [facility] [place] [facility] [address] [id number] [place] [address] May, [facility] [place] [facility] [address] [id number] [place] [address] May, [facility] [place] [facility] [address] [facility] [id number] [place] [address] May, [facility] [place] [facility] [address] [id number] [place] [address] May, [facility] [place] [facility] [address] [id number] [place] [address] May, [facility] [place] [facility] [address] [id number] [place] [address] Apr, 2014 [facility] [place] [facility] [address] [facility] [id number] [place] [address] Apr, 2014 [facility] [place] [facility] [address] [id number] [place] [address] Apr, 2014 [facility] [place] [facility] [address] [id number] [place] [address] Apr, 2014 [facility] [place] [facility] [address] [facility] [id number] [place] [address] Apr, 2014 [facility] [place] [facility] [address] [facility] [id number] [place] [address] Apr, 2014 [facility] [place] [facility] [address] [facility] [id number] [address] Apr, 2014 [facility] [place] [facility] [address] [facility] [id number] [place] [address] Apr, 2014 [facility] [place] [facility] [address] [facility] [id number], [place] [address] Apr, 2014 [facility] [place] [facility] [address] [facility] [id number], [place] [address] Mar, [facility] [place] [facility] [address] [id number] [place] [address] 30 Mar, 2014 [facility] [place] [facility] [address] [id number] [place] [address] Mar, [facility] [place] [facility] [address] [id number] [place] [address] 23 Mar, 2014 [facility] [place] [facility] [address] [id number] [place] [address] 15 Mar, 2014 [facility] [place] [facility] [address] [id number] [place] [address] 15 Mar, 2014 [facility] [place] [facility] [address] [id number] [place] [address] 15 Mar, 2014 [facility] [place] [facility] [address] [id number] [place] [address] 15 Mar, 2014 [facility] [place] [facility] [address] [id number] [place] [address] 15 Mar, 2014 [facility] [place] [facility] [address] [id number] [place] [address] 15 Mar, 2014 [facility] [place] [facility] [address] [id number] [place] [address] 14 Mar, 2014 [facility] [place] [facility] [address] [id number] [place] [address] 14 Mar, 2014 [facility] [place] [facility] [address] [id number] [place] [address] 14 Mar, 2014 [facility] [place] [facility] [address] [id number] [place] [address] 14 Mar, 2014 [facility] [place] [facility] [address] [id number] [place] [address] 14 Mar, 2014 [facility] [place] [facility] [address] [id number] [place] [address] 14 Mar, 2014 [facility] [place] [facility] [address] [id number] [place] [address] Mar, [facility] [place] [facility] [address] [id number] [place] [address] Mar, [facility] [place] [facility] [address] [id number] [place] [address] Feb, [facility] [place] [facility] [address] [id number] [place] [address] Feb, [facility] [place] [facility] [address] [id number] [place] [address] Feb, [facility] [place] [facility] [address] [id number] [place] [address] Feb, [facility] [place] [facility] [address] [id number] [place] [address] Feb, [facility] [place] [facility] [address] [id number] [place] [address] Feb, [facility] [place] [facility] [address] [id number] [place] [address] Jan, [facility] [place] [facility] [address] [id number] [place] [address] Jan, [facility] [place] [facility] [address] [id number] [place] [address] Jan, [facility] [place] [facility] [address] [id number], [place] [address] Jan, [facility] [place] [facility] [address] [id number][place] [address] Jan, [facility] [place] [facility] [address] [id number] [place] [address] Jan, [facility] [place] [facility] [address] [id number] [place] [address] Jan, [facility] [place] [facility] [address] [id number] [place] [address] Jan, [facility] [place] [facility] [address] [id number] [place] [address] Jan, [facility] [place] [facility] [address] [id number] [place] [address] Jan, [facility] [place] [facility] [address] [id number] [place] [address] Dec, [facility] [place] [facility] [address] [id number] [place] [address] Dec, [facility] [place] [facility] [address] [id number] [place] [address] Dec, [facility] [place] [facility] [address] [id number] [place] [address] Dec, [facility] [place] [facility] [address] [id number] [place] [address] 16 Nov, 2013 [facility] [place] [facility] [address] [id number] [place] [address] 16 Nov, 2013 [facility] [place] [facility] [address] [id number] [place] [address] Nov, 2013 [facility] [place] [facility] [address] [id number] [place] [address] Nov, 2013 [facility] [place] [facility] [address] [id number] [place] [address] Nov, 2013 [facility] [place] [facility] [address] [id number] [place] [address] Nov, 2013 [facility] [place] [facility] [address] [id number] [place] [address] Oct, [facility] [place] [facility] [address] [id number] [place] [address] Oct, [facility] [place] [facility] [address] [id number] [place] [address] Oct, [facility] [place] [facility] [address] [id number] [place] [address] Oct, [facility] [place] [facility] [address] [id number] [place] [address] Sep, [facility] [place] [facility] [address] [id number] [place] [address] Sep, [facility] [place] [facility] [address] [id number] [place] [address] Sep, [facility] [place] [facility] [address] [id number] [place] [address] Sep, [facility] [place] [facility] [address] [id number] [place] [address] Sep, [facility] [place] [facility] [address] [id number] [place] [address] Sep, [facility] [place] [facility] [address] [id number] [place] [address] July, [facility] [place] [facility] [address] [id number] [place] [address] July, [facility] [place] [facility] [address] [id number] [place] [address] July, [facility] [place] [facility] [address] [id number] [place] [address] July, [facility] [place] [facility] [address] [id number] [place] [address] Jun, [facility] [place] [facility] [address] [id number] [place] [address] Jun, [facility] [place] [facility] [address] [id number] [place] [address] Jun, [facility] [place] [facility] [address] [id number] [place] [address] Jun, [facility] [place] [facility] [address] [id number] [place] [address] Jun, [facility] [place] [facility] [address] [id number], [place] [address] Jun, [facility] [place] [facility] [address] [id number] [place] [address] May, [facility] [place] [facility] [address] [id number] [place] [address] May, [facility] [place] [facility] [address] [id number] [place] [address] Apr, [facility] [place] [facility] [address] [id number] [place] [address] Apr, [facility] [place] [facility] [address] [id number] [place] [address] Apr, [facility] [place] [facility] [address] [id number] [place] [address] Apr, [facility] [place] [facility] [address] [id number] [place] [address] Apr, [facility] [place] [facility] [address] [id number] [place] [address] Apr, [facility] [place] [facility] [address] [id number] [place] [address] Apr, [facility] [place] [facility] [address] [facility] [id number] [place] [address] Mar, [facility] [place] [facility] [address] [id number] [place] [address] Mar, [facility] [place] [facility] [address] [id number] [place] [address] Mar, [facility] [place] [facility] [address] [id number] [place] [address] Mar, [facility] [place] [facility] [address] [id number] [place] [address] Mar, [facility] [place] [facility] [address] [id number] [place] [address] Mar, [facility] [place] [facility] [address] [id number] [place] [address] Mar, [facility] [address] [id number] [place] [address] Mar, [facility] [address] [id number] [place] [address] Feb, [facility] [address] [id number] [place] [address] Feb, [facility] [address] [id number] [place] [address] Feb, [facility] [address] [id number] [place] [address] Feb, [facility] [address] [id number] [place] [address] Feb, [facility] [address] [id number] [place] [address] Feb, [facility] [address] [id number] [place] [address] Feb, [facility] [address] [id number] [place] [address] Jan, [facility] [address] [id number] [place] [address] Jan, [facility] [address] [id number], [place] [address] Jan, [facility] [address] [id number] [place] [address] Jan, [facility] [place] [facility] [address] [id number] [place] [address] Jan, [facility] [address] [id number] [place] [address] Jan, [facility] [address] [id number][place] [id number] Jan, [facility] [place] [facility] [address] [id number][place] [id number] Jan, [facility] [place] [facility] [address] [id number] [place] [address] Dec, [facility] [place] [facility] [address] [id number] [place] [address] Dec, [facility] [place] [facility] [address] [id number], [place] [address] Dec, [facility] [place] [facility] [address] [id number] [place] [address] Dec, [facility] [place] [facility] [address] [id number] [place] [address] Dec, [facility] [place] [facility] [address] [id number] [place] [address] Dec, [facility] [place] [facility] [address] [id number], [place] [address] Dec, [facility] [place] [facility] [address] [id number], [place] [address] Dec, [facility] [place] [facility] [address] [id number], [place] [address] Dec, [facility] [place] [facility] [address] [id number], [place] [address] Dec, [facility] [place] [facility] [address] [id number][place] [id number] Nov, [facility] [place] [facility] [address] [id number][place] [id number] Nov, [facility] [place] [facility] [address] [id number], [place] [address] 24 Nov, 2012 [facility] [place] [facility] [address] [id number], [place] [address] 20 Nov, 2012 [facility] [place] [facility] [address] [id number] [place] [address] Nov, [facility] [address] [id number] [place] [address] 13 Nov, 2012 [facility] [place] [facility] [address] [id number] [place] [address] 10 Nov, 2012 [facility] [place] [facility] [address] [id number] [place] [address] Nov, [facility] [place] [facility] [address] [id number] [place] [address] Oct, [facility] [place] [facility] [address] [id number] [place] [address] Oct, [facility] [place] [facility] [address] [id number] [place] [address] Oct, [facility] [address] [id number] [place] [address] Sep, [facility] [place] [facility] [address] [id number] [place] [address] Sep, [facility] [place] [facility] [address] [id number] [place] [address] Sep, [facility] [place] [facility] [address] [id number] [place] [address] Sep, [facility] [place] [facility] [address] [id number] [place] [address] Sep, [facility] [place] [facility] [address] [id number] [place] [address] Aug, [facility] [place] [facility] [address] [id number] [place] [address] Aug, [facility] [place] [facility] [address] [id number] [place] [address] Aug, [facility] [place] [facility] [address] [id number] [place] [address] Aug, [facility] [place] [facility] [address] [id number] [place] [address] Aug, [facility] [address] [id number] [place] [address] Aug, [facility] [address] [id number] [place] [address] July, [facility] [address] [id number] [place] [address] July, [facility] [address] [id number] [place] [address] July, [facility] [address] [id number] [place] [address] July, [facility] [address] [id number] [place] [address] July, [facility] [address] [id number] [place] [address] July, [facility] [address] [id number] [place] [address] Jun, [facility] [address] [id number] [place] [address] Jun, [facility] [address] [id number] [place] [address] Jun, [facility] [address] [id number] [place] [address] Jun, [facility] [address] [id number] [place] [address] May, [facility] [place] [facility] [address] [id number] [place] [address] May, [facility] [place] [facility] [address] [id number] [place] [address] May, [facility] [place] [facility] [address] [id number] [place] [address] Apr, [facility] [place] [facility] [address] [id number] [place] [address] Mar, [facility] [place] [facility] [address] [id number] [place] [address] 18 Mar, 2012 [facility] [place] [facility] [address] [facility] [id number] [place] [address] 17 Mar, 2012 [facility] [place] [facility] [address] [id number][place] [address] 16 Mar, 2012 [facility] [place] [facility] [address] [id number] [place] [address] Mar, [facility] [place] [facility] [address] [facility] [id number] [place] [address] Feb, [facility] [place] [facility] [address] [id number] [place] [address] Feb, [facility] [place] [facility] [address] [id number], [place] [address] Feb, [facility] [place] [facility] [address] [id number], [place] [address] Feb, [facility] [place] [facility] [address] [facility] [id number], [place] [address] Jan, [facility] [place] [facility] [address] [id number], [place] [address] Jan, [facility] [place] [facility] [address] [id number], [place] [address] Jan, [facility] [place] [facility] [address] [id number], [place] [address] Jan, [facility] [place] [facility] [address] [facility] [id number], [place] [address] Dec, [facility] [place] [facility] [address] [facility] [id number], [place] [address] Dec, [facility] [place] [facility] [address] [id number] [place] [address] Nov, [facility] [address] [id number] [place] [address] Oct, [facility] [address] [id number] [place] [address] Oct, [facility] [address] [id number] [place] [address] Oct, [facility] [address] [id number] [place] [address] Oct, [facility] [address] [id number] [place] [address] Oct, [facility] [address] [id number] [place] [address] Sep, [facility] [address] [id number] [place] [address] Sep, [facility] [address] [id number] [place] [address] Aug, [facility] [place] [id number] Aug, [facility] [address] [id number] [place] [address] Aug, [facility] [address] [id number] [place] [address] July, [facility] [address] [id number] [place] [address] July, [facility] [address] [id number] [place] [address] Jun, [facility] [address] [id number] [place] [address] Jun, [facility] [address] [id number] [place] [address] Jun, [facility] [address] [id number] [place] [address] 13 Jun, 2011 [facility] [address] [id number] [place] [address] 15 Apr, 2011 [facility] [place] [facility] [address] [id number] [place] [address] 15 Apr, 2011 [facility] [place] [facility] [address] [id number] [place] [address] 10 Apr, 2011 [facility] [place] [facility] [address] [id number] [place] [address] Mar, [facility] [place] [facility] [address] [id number] [place] [address] Mar, [facility] [address] [id number] [place] [address] Mar, [facility] [address] [id number] [place] [address] Mar, [facility] [address] [id number] [place] [address] Mar, [facility] [place] [facility] [address] [id number] [place] [address] Jan, [facility] [address] [id number] [place] [address] Jan, [facility] [place] [facility] [address] [id number] [place] [address] Jan, [facility] [place] [facility] [address] [id number] [place] [address] Mar, [facility] [place] [facility] [address] [id number] [place] [address] Mar, [facility] [place] [facility] [address] [id number] [place] [address] Feb, [facility] [place] [facility] [address] [id number] [place] [address] 16 Feb, 2010 [facility] [address] [id number] [address] 16 Feb, 2010 [facility] [address]65100[place], [place] [address] Jan, [facility] [id number], [place] [address] Jan, [facility] [address]00565100[place], [place] [address] Dec, [facility] [address]65100[place], [place] [address] Dec, [facility] [id number] [place] [address] May, [facility] [address]65100[place], [place] [address] Apr, [facility] [address]65100[place], [place] [address] Feb, [facility] [address]65100[place], [place] [address] Feb, [facility] [address]65100[place], [place] [address] Jan, [facility] [address]65100[place], [place] [address] Jan, [facility] [address]65100[place], [place] [address] Jan, [facility] [address]65[address], [place] [address] Jan, [facility] [address]65[address], [place] [address] Jan, IMMUNIZATIONS No Known Immunizations SOCIAL HISTORY Never Assessed REASON FOR VISIT knee brace PLAN OF CARE VITAL SIGNS MEDICATIONS Unknown [...]
--- OUTSIDE RECORDS SUMMARY | 2018-10-04 06:46 | XMS REPORT ---
Author Author KATHY ESTHER [facility] Address [address] [place] [address] Care Team Providers Care Telemetry Technician Name Role Phone KATHYBRIAN VILLEGASY Unavailable PROBLEMS Type Condition ICD9-CM Code [id number] Code Onset Dates Condition Status SNOMED Code Problem Primary osteoarthritis of both knees M17.0 Active 271107151 Problem Nocturnal hypoxia G47.34 Active 315607271 Problem Chronic prescription opiate use Z79.891 Active 602550712 Problem Pure hypercholesterolemia E78.0 Active 751932569 Problem Acute right-sided low back pain with right-sided sciatica M54.41 Active 44091602 Problem Type 2 diabetes mellitus with diabetic polyneuropathy E11.42 Active 064098855 Problem Severe major depression with psychotic features F32.3 Active 85349132 Problem Obesity, morbid, BMI 40.0-49.9 E66.01 Active 692944210 Problem Posttraumatic stress disorder F43.10 Active 86893226 Problem Primary insomnia F51.01 Active 2038401 Problem Mood disorder F39 Active 73926377 Problem History of DVT (deep vein thrombosis) Z86.718 Active 942989256 Problem Chronic pain syndrome G89.4 Active 559222702 Problem Chronic systolic (congestive) heart failure I50.22 Active 082069047 Problem Macrocytosis D75.89 Active 370801570 Problem Tobacco abuse Z72.0 Active 273965781 Problem Mild episode of recurrent major depressive disorder F33.0 Active 295833170 Problem BMI 45.0-49.9, adult Z68.42 Active 812901330 Problem Gastroesophageal reflux disease, esophagitis presence not specified K21.9 Active 241045061 Problem Non-ischemic cardiomyopathy I42.9 Active 21698851 Problem Essential hypertension I10 Active 95756604 Problem Major depressive disorder, recurrent episode, unspecified severity F33.9 Active 06137641 Problem PTSD (post-traumatic stress disorder) F43.10 Active 81109120 Problem MITCHELL treated with BiPAP G47.33 Active 62460595 Problem Chronic obstructive pulmonary disease, unspecified COPD type J44.9 Active 74979399 Problem History of weight loss surgery Z98.84 Active 440906875 ALLERGIES No Information ENCOUNTERS Encounter Location Date Diagnosis [place] [id number] [place] [address] Oct, [place] [address] [place] [id number] [place] [address] Sep, [place] [address] [place] [id number] [place] [address] Aug, Primary osteoarthritis of both knees M17.0 and Chronic pain syndrome G89.4 [place] [address] [address] July, Primary osteoarthritis of both knees M17.0 and Chronic pain syndrome G89.4 [place] [address] [place] [id number] [place] [address] July, Type 2 diabetes mellitus with diabetic polyneuropathy E11.42 ; Essential hypertension I10 ; Pure hypercholesterolemia E78.0 ; Chronic prescription opiate use Z79.891 ; Tobacco abuse Z72.0 ; Primary osteoarthritis of both knees M17.0 ; Primary insomnia F51.01 and BMI 45.0-49.9, adult Z68.42 [place] [address] [place] [address] July, Medicare annual wellness visit, initial Z00.00 [...] specified K21.9 and Encounter for immunization Z23 [place] [address] [place] [id number] [place] [address] July, Primary osteoarthritis of both knees M17.0 and Chronic pain syndrome G89.4 [facility] [address] [place] [address] Jun, Infection of right ear H66.91 ; Wheezing on auscultation R06.2 and BMI 45.0-49.9, adult Z68.42 [facility] [address] [id number] [place] [address] Jun, [facility] [address] [id number] [place] [address] Jun, Primary osteoarthritis of both knees M17.0 and Chronic pain syndrome G89.4 [facility] [address] [place] [id number] [place] [address] May, [facility] [address] [place] [id number] [place] [address] May, BMI 45.0-49.9, adult Z68.42 ; Mood disorder F39 and Posttraumatic stress disorder F43.10 [facility] [address] [id number] [place] [address] May, [facility] [address] [place] [id number] [place] [address] May, Primary osteoarthritis of both knees M17.0 and Chronic pain syndrome G89.4 [facility] [address] [id number] [place] [address] May, Mood disorder F39 [facility] [address] [id number] [place] [address] Apr, Type 2 diabetes mellitus with diabetic polyneuropathy E11.42 [facility] [address] [id number] [place] [address] Apr, [facility] [address] [address] [id number] [place] [address] Apr, Primary osteoarthritis of both knees M17.0 and Chronic pain syndrome G89.4 [facility] [address] [address] Apr, Mood disorder F39 [facility] [address] [place] [id number] [place] [address] Mar, Mood disorder F39 and Posttraumatic stress disorder F43.10 [facility] [address] [place] [address] Mar, Primary osteoarthritis of both knees M17.0 and Chronic pain syndrome G89.4 [facility] [address] [place] [id number] [place] [address] Feb, Primary osteoarthritis of both knees M17.0 and Chronic pain syndrome G89.4 [facility] [address] [place] [address] Feb, Mood disorder F39 [place] [address] [place] [id number] [place] [address] Jan, Type 2 diabetes mellitus with diabetic polyneuropathy E11.42 ; Primary osteoarthritis of both knees M17.0 ; Mood disorder F39 ; Obesity, morbid, BMI 40.0-49.9 E66.01 ; Chronic prescription opiate use Z79.891 ; Acute suppurative otitis media of both ears without spontaneous rupture of tympanic membranes, recurrence not specified H66.003 and BMI 45.0-49.9, adult Z68.42 [facility] [address] [place] [address] Jan, Primary osteoarthritis of both knees M17.0 and Chronic pain syndrome G89.4 [facility] [address] [address] Dec, Mood disorder F39 and Posttraumatic stress disorder F43.10 [facility] [address] [place] [address] Dec, Primary osteoarthritis of both knees M17.0 and Chronic pain syndrome G89.4 [facility] [address] [place] [address] 18 Nov, 2016 Chronic pain syndrome G89.4 [facility] [address] [place] [address] 15 Nov, 2016 Primary osteoarthritis of both knees M17.0 and Chronic pain syndrome G89.4 [facility] [address] [place] [id number] [place] [address] 13 Nov, 2016 Type 2 diabetes mellitus with diabetic polyneuropathy E11.42 and Chronic pain syndrome G89.4 [facility] [address] [place] [id number] [place] [address] 12 Nov, 2016 Posttraumatic stress disorder F43.10 and Mood disorder F39 [facility] [address] [place] [id number] [place] [address] 18 Oct, 2016 Chronic pain syndrome G89.4 [facility] [address] [place] [id number] [place] [address] 16 Oct, 2016 Type 2 diabetes mellitus with diabetic polyneuropathy E11.42 ; BMI 45.0-49.9, adult Z68.42 ; Primary osteoarthritis of both knees M17.0 and Skin lesion L98.9 [facility] [address] [place] [id number] [place] [address] Oct, Chronic pain syndrome G89.4 [facility] [address] [place] [id number] [place] [address] Sep, Chronic pain syndrome G89.4 [facility] [address] [place] [id number] [place] [address] Sep, [facility] [address] [place] [address] Sep, Chronic pain syndrome G89.4 [facility] [address] [place] [id number] [place] [address] Aug, Chronic pain syndrome G89.4 [facility] [address] [place] [id number] [place] [address] Aug, [facility] [address] [address] Aug, Macrocytosis D75.89 and Pure hypercholesterolemia E78.0 [facility] [address] [place] [id number] [place] [address] Aug, Pure hypercholesterolemia E78.0 [facility] [address] [place] [id number] [place] [address] Aug, Macrocytosis D75.89 [facility] [address] [place] [id number] [place] [address] Aug, Pure hypercholesterolemia E78.0 ; Type 2 diabetes mellitus with diabetic polyneuropathy E11.42 ; MITCHELL treated with BiPAP G47.33 and Chronic pain syndrome G89.4 [place] [address] [place] [id number] [place] [address] Aug, [place] [address] [place] [id number] [place] [address] Aug, Hemorrhoids, unspecified hemorrhoid type K64.9 [place] [address] [place] [id number] [place] [address] Aug, Chronic pain syndrome G89.4 ; Type 2 diabetes mellitus with diabetic polyneuropathy E11.42 ; Hemorrhoids, unspecified hemorrhoid type K64.9 ; Tobacco abuse Z72.0 and Primary osteoarthritis of both knees M17.0 [place] [address] [place] [address] July, Chronic pain syndrome G89.4 [facility] [address] [address] July, [facility] [address] [place] [id number] [place] [address] Jun, Chronic pain syndrome G89.4 [facility] [address] [place] [address] Jun, Chronic pain syndrome G89.4 [facility] [address] [place] [id number] [place] [address] Jun, Severe major depression with psychotic features F32.3 and Posttraumatic stress disorder F43.10 [facility] [address] [place] [id number] [place] [address] Jun, Chronic pain syndrome G89.4 [facility] [address] [place] [id number] [place] [address] Jun, [facility] [address] [address] May, Chronic pain syndrome G89.4 [facility] [address] [address] May, Tobacco abuse Z72.0 [place] [address] [place] [id number] [place] [address] May, [facility] [address] [address] Apr, Chronic pain syndrome G89.4 [facility] [address] [place] [id number] [place] [address] Apr, [place] [address] [place] [id number] [place] [address] Apr, Right foot pain M79.671 [place] [address] [place] [id number] [place] [address] Mar, Type 2 diabetes mellitus with diabetic polyneuropathy E11.42 ; MITCHELL treated with BiPAP G47.33 ; Pure hypercholesterolemia E78.0 ; Chronic pain syndrome G89.4 ; Tobacco abuse Z72.0 and Obesity, morbid, BMI 40.0-49.9 E66.01 [facility] [address] [place] [id number] [place] [address] Mar, [facility] [address] [place] [id number] [place] [address] Mar, [facility] [address] [address] Mar, [facility] [address] [address] Mar, [facility] [address] [address] Mar, [facility] [address] [place] [address] Mar, Severe major depression with psychotic features F32.3 and Posttraumatic stress disorder F43.10 [facility] [address] [address] Mar, [facility] [address] [place] [address] Feb, [facility] [address] [place] [id number] [place] [address] Feb, [facility] [address] [place] [address] Jan, [facility] [address] [place] [address] Jan, [facility] [address] [place] [address] Dec, Posttraumatic stress disorder F43.10 and Severe major depression with psychotic features F32.3 [facility] [address] [address] Dec, Type 2 diabetes mellitus with diabetic polyneuropathy E11.42 ; Chronic pain syndrome G89.4 and Acute right-sided low back pain with right-sided sciatica M54.41 [facility] [address] [address] Dec, [facility] [address] [address] Dec, [facility] [address] [place] [address] Nov, [facility] [address] [place] [id number] [place] [address] Nov, [facility] [address] [address] [id number] [place] [address] Nov, [facility] [address] [address] [id number] [place] [address] Oct, [facility] [address] [address] Oct, [facility] [address] [address] Sep, Dental examination Z01.20 [facility] [address] [place] [id number] [place] [address] Sep, [facility] [address] [address] Sep, Type 2 diabetes mellitus with diabetic polyneuropathy E11.42 ; Chronic pain syndrome G89.4 ; Chronic prescription opiate use Z79.891 ; Injury of right index finger, sequela S69.91XS and Anejaculation N50.8 [facility] [address] [place] [id number] [place] [address] Aug, [facility] [address] [id number] [place] [address] Aug, [facility] [id number] [place] [address] Aug, Cellulitis of finger of right hand L03.011 [facility] [address] [address] July, [facility] [address] [place] [id number] [place] [address] July, [facility] [address] [place] [id number] [place] [address] Jun, Onychomycosis B35.1 [facility] [address] [address] Jun, Severe major depression with psychotic features F32.3 and Posttraumatic stress disorder F43.10 [facility] [address] [address] Jun, [facility] [address] [place] [id number] [place] [address] Jun, [facility] [address] [place] [address] Jun, [facility] [address] [place] [id number] [place] [address] May, Type 2 diabetes mellitus with diabetic polyneuropathy E11.42 [place] [address] [place] [id number] [place] [address] May, Type 2 diabetes mellitus with diabetic polyneuropathy E11.42 and Urinary hesitancy R39.11 [facility] [address] [place] [id number] [place] [address] May, Type 2 diabetes mellitus with diabetic polyneuropathy E11.42 ; Left hip pain M25.552 and Benign prostatic hyperplasia with lower urinary tract symptoms, unspecified morphology N40.1 [facility] [address] [address] May, [facility] [address] [place] [id number] [place] [address] Apr, Severe major depression with psychotic features F32.3 and Posttraumatic stress disorder F43.10 [facility] [address] [place] [id number] [place] [address] Apr, [facility] [address] [address] Mar, [facility] [address] [place] [id number] [place] [address] Mar, Dysuria R30.0 and Urinary hesitancy R39.11 [facility] [address] [address] Mar, Onychomycosis B35.1 [facility] [address] [address] 08 Mar, 2015 [facility] [id number] [place] [address] Feb, [facility] [id number] [place] [address] Jan, [facility] [id number] [place] [address] Jan, Posttraumatic stress disorder F43.10 and Severe major depression with psychotic features F32.3 [facility] [address] [place] [id number] [place] [address] Jan, [facility] [address] [id number] [place] [address] Jan, Chronic pain syndrome G89.4 ; Type 2 diabetes mellitus with diabetic polyneuropathy E11.42 ; Decreased pedal pulses R09.89 and Paresthesia of both hands R20.2 [facility] [address] [address] Dec, Posttraumatic stress disorder F43.10 and Severe major depression with psychotic features F32.3 [facility] [address] [address] Dec, [facility] [address] [place] [address] Dec, [facility] [id number] [place] [address] Dec, Onychomycosis B35.1 [facility] [address] [address] Dec, [facility] [address] [address] Dec, [facility] [id number] [place] [address] Nov, [facility] [id number] [place] [address] Oct, Depression, major, recurrent, moderate 296.32 and Posttraumatic stress disorder 309.81 [place] [address] [place] [id number] [place] [address] Oct, [facility] [id number] [place] [address] Oct, [place] [address] [id number] [place] [address] Oct, [place] [id number] [place] [address] Sep, Posttraumatic stress disorder 309.81 and Depression, major, recurrent, moderate 296.32 [place] [id number] [place] [address] Sep, [place] [id number] [place] [address] Sep, Chronic airway obstruction, not elsewhere classified [id number] [place] [address] Sep, Onychomycosis 110.1 and DM neuro manif type II 250.60 [place] [id number] [place] [address] Sep, Chronic pain 338.29 ; Chronic airway obstruction, not elsewhere classified 496 ; Osteoarthritis of knees, bilateral 715.96 and On potassium wasting diuretic therapy V58.69 [address] [place] [address] Sep, Insect bites 919.4 ; Sinusitis 473.9 and GERD (gastroesophageal reflux disease) 530.81 [place] [address] [place] [id number] [address] Aug, Depression, major, recurrent, moderate 296.32 and Posttraumatic stress disorder 309.81 [facility] [id number] [address] Aug, [facility] [id number] [address] Aug, [facility] [address] [facility] [id number] [place] [address] Aug, [facility] [id number] [address] July, Major depressive disorder, recurrent episode, moderate 296.32 and Posttraumatic stress disorder 309.81 [facility] [address] [address] July, [facility] [id number] [address] July, [facility] [address] [address] July, [facility] [address] [address] July, [facility] [id number] [address] Jun, [facility] [id number] [address] Jun, [facility] [id number] [address] May, [facility] [id number] [address] May, [facility] [id number] [address] May, [facility] [id number] [address] May, [facility] [place] [facility] [address] [id number] [place] [address] May, [facility] [place] [facility] [address] [id number] [place] [address] May, [facility] [place] [facility] [address] [facility] [id number] [place] [address] May, [facility] [place] [facility] [address] [id number] [place] [address] May, [facility] [place] [facility] [address] [id number] [place] [address] May, [facility] [place] [facility] [address] [id number] [place] [address] Apr, 2014 [facility] [place] [facility] [address] [facility] [id number] [place] [address] Apr, 2014 [facility] [place] [facility] [address] [id number] [place] [address] Apr, 2014 [facility] [place] [facility] [address] [id number] [place] [address] Apr, 2014 [facility] [place] [facility] [address] [facility] [id number] [place] [address] Apr, 2014 [facility] [place] [facility] [address] [facility] [id number] [place] [address] Apr, 2014 [facility] [place] [facility] [address] [facility] [id number] [address] Apr, 2014 [facility] [place] [facility] [address] [facility] [id number] [place] [address] Apr, 2014 [facility] [place] [facility] [address] [facility] [id number] [place] [address] Apr, 2014 [facility] [place] [facility] [address] [facility] [id number] [place] [address] Mar, [facility] [place] [facility] [address] [id number] [place] [address] 30 Mar, 2014 [facility] [place] [facility] [address] [id number] [place] [address] Mar, [facility] [place] [facility] [address] [id number] [place] [address] 23 Mar, 2014 [facility] [place] [facility] [address] [id number] [place] [address] 15 Mar, 2014 [facility] [place] [facility] [address] [id number] [place] [address] 15 Mar, 2014 [facility] [place] [facility] [address] [id number] [place] [address] 15 Mar, 2014 [facility] [place] [facility] [address] [id number] [place] [address] 15 Mar, 2014 [facility] [place] [facility] [address] [id number] [place] [address] 15 Mar, 2014 [facility] [place] [facility] [address] [id number] [place] [address] 15 Mar, 2014 [facility] [place] [facility] [address] [id number] [place] [address] 14 Mar, 2014 [facility] [place] [facility] [address] [id number] [place] [address] 14 Mar, 2014 [facility] [place] [facility] [address] [id number] [place] [address] 14 Mar, 2014 [facility] [place] [facility] [address] [id number] [place] [address] 14 Mar, 2014 [facility] [place] [facility] [address] [id number] [place] [address] 14 Mar, 2014 [facility] [place] [facility] [address] [id number] [place] [address] 14 Mar, 2014 [facility] [place] [facility] [address] [id number] [place] [address] Mar, [facility] [place] [facility] [address] [id number] [place] [address] Mar, [facility] [place] [facility] [address] [id number] [place] [address] Feb, [facility] [place] [facility] [address] [id number] [place] [address] Feb, [facility] [place] [facility] [address] [id number] [place] [address] Feb, [facility] [place] [facility] [address] [id number] [place] [address] Feb, [facility] [place] [facility] [address] [id number] [place] [address] Feb, [facility] [place] [facility] [address] [id number] [place] [address] Feb, [facility] [place] [facility] [address] [id number] [place] [address] Jan, [facility] [place] [facility] [address] [id number] [place] [address] Jan, [facility] [place] [facility] [address] [id number] [place] [address] Jan, [facility] [place] [facility] [address] [id number] [place] [address] Jan, [facility] [place] [facility] [address] [id number] [place] [address] Jan, [facility] [place] [facility] [address] [id number] [place] [address] Jan, [facility] [place] [facility] [address] [id number] [place] [address] Jan, [facility] [place] [facility] [address] [id number] [place] [address] Jan, [facility] [place] [facility] [address] [id number] [place] [address] Jan, [facility] [place] [facility] [address] [id number] [place] [address] Jan, [facility] [place] [facility] [address] [id number] [place] [address] Dec, [facility] [place] [facility] [address] [id number] [place] [address] Dec, [facility] [place] [facility] [address] [id number] [place] [address] Dec, [facility] [place] [facility] [address] [id number] [place] [address] Dec, [facility] [place] [facility] [address] [id number] [place] [address] 16 Nov, 2013 [facility] [place] [facility] [address] [id number] [place] [address] 16 Nov, 2013 [facility] [place] [facility] [address] [id number] [place] [address] Nov, 2013 [facility] [place] [facility] [address] [id number] [place] [address] Nov, 2013 [facility] [place] [facility] [address] [id number] [place] [address] Nov, 2013 [facility] [place] [facility] [address] [id number] [place] [address] Nov, 2013 [facility] [place] [facility] [address] [id number] [place] [address] Oct, [facility] [place] [facility] [address] [id number] [place] [address] Oct, [facility] [place] [facility] [address] [id number] [place] [address] Oct, [facility] [place] [facility] [address] [id number] [place] [address] Oct, [facility] [place] [facility] [address] [id number] [place] [address] Sep, [facility] [place] [facility] [address] [id number] [place] [address] Sep, [facility] [place] [facility] [address] [id number] [place] [address] Sep, [facility] [place] [facility] [address] [id number] [place] [address] Sep, [facility] [place] [facility] [address] [id number] [place] [address] Sep, [facility] [place] [facility] [address] [id number] [place] [address] Sep, [facility] [place] [facility] [address] [id number] [place] [address] July, [facility] [place] [facility] [address] [id number] [place] [address] July, [facility] [place] [facility] [address] [id number] [place] [address] July, [facility] [place] [facility] [address] [id number] [place] [address] July, [facility] [place] [facility] [address] [id number] [place] [address] Jun, [facility] [place] [facility] [address] [id number] [place] [address] Jun, [facility] [place] [facility] [address] [id number] [place] [address] Jun, [facility] [place] [facility] [address] [id number] [place] [address] Jun, [facility] [place] [facility] [address] [id number] [place] [address] Jun, [facility] [place] [facility] [address] [id number] [place] [address] Jun, [facility] [place] [facility] [address] [id number] [place] [address] May, [facility] [place] [facility] [address] [id number] [place] [address] May, [facility] [place] [facility] [address] [id number] [place] [address] Apr, [facility] [place] [facility] [address] [id number] [place] [address] Apr, [facility] [place] [facility] [address] [id number] [place] [address] Apr, [facility] [place] [facility] [address] [id number] [place] [address] Apr, [facility] [place] [facility] [address] [id number] [place] [address] Apr, [facility] [place] [facility] [address] [id number] [place] [address] Apr, [facility] [place] [facility] [address] [id number] [place] [address] Apr, [facility] [place] [facility] [address] [facility] [id number] [place] [address] Mar, [facility] [place] [facility] [address] [id number] [place] [address] Mar, [facility] [place] [facility] [address] [id number] [place] [address] Mar, [facility] [place] [facility] [address] [id number] [place] [address] Mar, [facility] [place] [facility] [address] [id number] [place] [address] Mar, [facility] [place] [facility] [address] [id number] [place] [address] Mar, [facility] [place] [facility] [address] [id number] [place] [address] Mar, [facility] [address] [id number] [place] [address] Mar, [facility] [address] [id number] [place] [address] Feb, [facility] [address] [id number] [place] [address] Feb, [facility] [address] [id number] [place] [address] Feb, [facility] [address] [id number] [place] [address] Feb, [facility] [address] [id number] [place] [address] Feb, [facility] [address] [id number] [place] [address] Feb, [facility] [address] [id number] [place] [address] Feb, [facility] [address] [id number] [place] [address] Jan, [facility] [address] [id number] [place] [address] Jan, [facility] [address] [id number] [place] [address] Jan, [facility] [address] [id number] [place] [address] Jan, [facility] [place] [facility] [address] [id number] [place] [address] Jan, [facility] [address] [id number] [place] [address] Jan, [facility] [address] [id number] [place] [id number] Jan, [facility] [place] [facility] [address] [id number] [place] [id number] Jan, [facility] [place] [facility] [address] [id number] [place] [address] Dec, [facility] [place] [facility] [address] [id number] [place] [address] Dec, [facility] [place] [facility] [address] [id number] [place] [address] Dec, [facility] [place] [facility] [address] [id number] [place] [address] Dec, [facility] [place] [facility] [address] [id number] [place] [address] Dec, [facility] [place] [facility] [address] [id number] [place] [address] Dec, [facility] [place] [facility] [address] [id number] [place] [address] Dec, [facility] [place] [facility] [address] [id number] [place] [address] Dec, [facility] [place] [facility] [address] [id number] [place] [address] Dec, [facility] [place] [facility] [address] [id number] [place] [address] Dec, [facility] [place] [facility] [address] [id number] [place] [id number] Nov, [facility] [place] [facility] [address] [id number] [place] [id number] Nov, [facility] [place] [facility] [address] [id number] [place] [address] 24 Nov, 2012 [facility] [place] [facility] [address] [id number] [place] [address] 20 Nov, 2012 [facility] [place] [facility] [address] [id number] [place] [address] Nov, [facility] [address] [id number] [place] [address] 13 Nov, 2012 [facility] [place] [facility] [address] [id number] [place] [address] 10 Nov, 2012 [facility] [place] [facility] [address] [id number] [place] [address] Nov, [facility] [place] [facility] [address] [id number] [place] [address] Oct, [facility] [place] [facility] [address] [id number] [place] [address] Oct, [facility] [place] [facility] [address] [id number] [place] [address] Oct, [facility] [address] [id number] [place] [address] Sep, [facility] [place] [facility] [address] [id number] [place] [address] Sep, [facility] [place] [facility] [address] [id number] [place] [address] Sep, [facility] [place] [facility] [address] [id number] [place] [address] Sep, [facility] [place] [facility] [address] [id number] [place] [address] Sep, [facility] [place] [facility] [address] [id number] [place] [address] Aug, [facility] [place] [facility] [address] [id number] [place] [address] Aug, [facility] [place] [facility] [address] [id number] [place] [address] Aug, [facility] [place] [facility] [address] [id number] [place] [address] Aug, [facility] [place] [facility] [address] [id number] [place] [address] Aug, [facility] [address] [id number] [place] [address] Aug, [facility] [address] [id number] [place] [address] July, [facility] [address] [id number] [place] [address] July, [facility] [address] [id number] [place] [address] July, [facility] [address] [id number] [place] [address] July, [facility] [address] [id number] [place] [address] July, [facility] [address] [id number] [place] [address] July, [facility] [address] [id number] [place] [address] Jun, [facility] [address] [id number] [place] [address] Jun, [facility] [address] [id number] [place] [address] Jun, [facility] [address] [id number] [place] [address] Jun, [facility] [address] [id number] [place] [address] May, [facility] [place] [facility] [address] [id number] [place] [address] May, [facility] [place] [facility] [address] [id number] [place] [address] May, [facility] [place] [facility] [address] [id number] [place] [address] Apr, [facility] [place] [facility] [address] [id number] [place] [address] Mar, [facility] [place] [facility] [address] [id number] [place] [address] 18 Mar, 2012 [facility] [place] [facility] [address] [facility] [id number] [place] [address] 17 Mar, 2012 [facility] [place] [facility] [address] [id number] [place] [address] 16 Mar, 2012 [facility] [place] [facility] [address] [id number] [place] [address] Mar, [facility] [place] [facility] [address] [facility] [id number] [place] [address] Feb, [facility] [place] [facility] [address] [id number] [place] [address] Feb, [facility] [place] [facility] [address] [id number] [place] [address] Feb, [facility] [place] [facility] [address] [id number] [place] [address] Feb, [facility] [place] [facility] [address] [facility] [id number] [place] [address] Jan, [facility] [place] [facility] [address] [id number] [place] [address] Jan, [facility] [place] [facility] [address] [id number] [place] [address] Jan, [facility] [place] [facility] [address] [id number] [place] [address] Jan, [facility] [place] [facility] [address] [facility] [id number] [place] [address] Dec, [facility] [place] [facility] [address] [facility] [id number] [place] [address] Dec, [facility] [place] [facility] [address] [id number] [place] [address] Nov, [facility] [address] [id number] [place] [address] Oct, [facility] [address] [id number] [place] [address] Oct, [facility] [address] [id number] [place] [address] Oct, [facility] [address] [id number] [place] [address] Oct, [facility] [address] [id number] [place] [address] Oct, [facility] [address] [id number] [place] [address] Sep, [facility] [address] [id number] [place] [address] Sep, [facility] [address] [id number] [place] [address] Aug, [facility] [address] [place] [id number] Aug, [facility] [address] [id number] [place] [address] Aug, [facility] [address] [id number] [place] [address] July, [facility] [address] [id number] [place] [address] July, [facility] [address] [id number] [place] [address] Jun, [facility] [address] [id number] [place] [address] Jun, [facility] [address] [id number] [place] [address] Jun, [facility] [address] [id number] [place] [address] 13 Jun, 2011 [facility] [address] [id number] [place] [address] 15 Apr, 2011 [facility] [place] [facility] [address] [id number] [place] [address] 15 Apr, 2011 [facility] [place] [facility] [address] [id number] [place] [address] 10 Apr, 2011 [facility] [place] [facility] [address] [id number] [place] [address] Mar, [facility] [place] [facility] [address] [id number] [place] [address] Mar, [facility] [address] [id number] [place] [address] Mar, [facility] [address] [id number] [place] [address] Mar, [facility] [address] [id number] [place] [address] Mar, [facility] [place] [facility] [address] [id number] [place] [address] Jan, [facility] [address] [id number] [place] [address] Jan, [facility] [place] [facility] [address] [id number] [place] [address] Jan, [facility] [place] [facility] [address] [id number] [place] [address] Mar, [facility] [place] [facility] [address] [id number] [place] [address] Mar, [facility] [place] [facility] [address] [id number] [place] [address] Feb, [facility] [place] [facility] [address] [id number] [place] [address] Feb, [facility] [address] [id number] [address] 16 Feb, 2010 [facility] [id number] [place] [address] Jan, [facility] [id number] [place] [address] Jan, [facility] [id number] [place] [address] Dec, [facility] [id number] [address] Dec, [facility] [id number] [place] [id number] May, [facility] [id number] [place] [address] Apr, [facility] [id number] [address] Feb, [facility] [id number] [address] Feb, [facility] [id number] [address] Jan, [facility] [id number] [address] Jan, [facility] [id number] [address] Jan, [facility] [id number] [address] Jan, [facility] [id number] [address] Jan, IMMUNIZATIONS No Known Immunizations SOCIAL HISTORY Never Assessed REASON FOR VISIT Medication Request PLAN OF CARE VITAL SIGNS MEDICATIONS Medication Instructions Dosage Frequency Start Date End Date Duration Status Lidocaine HCl 2 % Externally Three times a day 1 application to affected area as needed 8h Aug, 14 days Active Hydrocortisone 1 % Externally Twice a day for up to 2 weeks 1 application to affected area Aug, 14 days Active RESULTS No Results PROCEDURES No [...]
--- OUTSIDE RECORDS SUMMARY | 2018-10-04 06:47 | XMS REPORT ---
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 Name Role Phone KATHYCIARA VILLEGASHANY Unavailable PROBLEMS Type Condition ICD9-CM Code RYB02-CS Code Onset Dates Condition Status SNOMED Code Problem Primary osteoarthritis of both knees M17.0 Active 218990013 Problem Nocturnal hypoxia G47.34 Active 183813801 Problem Chronic prescription opiate use Z79.891 Active 341063349 Problem Pure hypercholesterolemia E78.0 Active 711502807 Problem Acute right-sided low back pain with right-sided sciatica M54.41 Active 43218056 Problem Type 2 diabetes mellitus with diabetic polyneuropathy E11.42 Active 494794881 Problem Severe major depression with psychotic features F32.3 Active 80077201 Problem Obesity, morbid, BMI 40.0-49.9 E66.01 Active 893801337 Problem Posttraumatic stress disorder F43.10 Active 31710943 Problem Primary insomnia F51.01 Active 6617278 Problem Mood disorder F39 Active 48518728 Problem History of DVT (deep vein thrombosis) Z86.718 Active 144772486 Problem Chronic pain syndrome G89.4 Active 486629496 Problem Chronic systolic (congestive) heart failure I50.22 Active 063425513 Problem Macrocytosis D75.89 Active 426226239 Problem Tobacco abuse Z72.0 Active 516715017 Problem Mild episode of recurrent major depressive disorder F33.0 Active 858404602 Problem BMI 45.0-49.9, adult Z68.42 Active 047910533 Problem Gastroesophageal reflux disease, esophagitis presence not specified K21.9 Active 544263039 Problem Non-ischemic cardiomyopathy I42.9 Active 85206234 Problem Essential hypertension I10 Active 54677617 Problem Major depressive disorder, recurrent episode, unspecified severity F33.9 Active 14116840 Problem PTSD (post-traumatic stress disorder) F43.10 Active 07709608 Problem MITCHELL treated with BiPAP G47.33 Active 81292844 Problem Chronic obstructive pulmonary disease, unspecified COPD type J44.9 Active 39851959 Problem History of weight loss surgery Z98.84 Active 816736444 ALLERGIES No Information ENCOUNTERS Encounter Location Date Diagnosis [place] [id number] [place] [address] Oct, [place] [address] [place] [id number] [place] [address] Sep, [place] [address] [place] [id number] [place] [address] Aug, Primary osteoarthritis of both knees M17.0 and Chronic pain syndrome G89.4 [place] [address] [address] July, Primary osteoarthritis of both knees M17.0 and Chronic pain syndrome G89.4 [place] [address] [place] [id number] [place] [address] July, Type 2 diabetes mellitus with diabetic polyneuropathy E11.42 ; Essential hypertension I10 ; Pure hypercholesterolemia E78.0 ; Chronic prescription opiate use Z79.891 ; Tobacco abuse Z72.0 ; Primary osteoarthritis of both knees M17.0 ; Primary insomnia F51.01 and BMI 45.0-49.9, adult Z68.42 [place] [address] [place] [address] July, Medicare annual wellness visit, initial Z00.00 [...] specified K21.9 and Encounter for immunization Z23 [place] [address] [place] [id number] [place] [address] July, Primary osteoarthritis of both knees M17.0 and Chronic pain syndrome G89.4 [facility] [address] [place] [address] Jun, Infection of right ear H66.91 ; Wheezing on auscultation R06.2 and BMI 45.0-49.9, adult Z68.42 [facility] [id number] [place] [address] Jun, [facility] [id number] [place] [address] Jun, Primary osteoarthritis of both knees M17.0 and Chronic pain syndrome G89.4 [facility] [address] [place] [id number] [place] [address] May, [facility] [address] [place] [id number] [place] [address] May, BMI 45.0-49.9, adult Z68.42 ; Mood disorder F39 and Posttraumatic stress disorder F43.10 [facility] [id number] [place] [address] May, [facility] [address] [place] [id number] [place] [address] May, Primary osteoarthritis of both knees M17.0 and Chronic pain syndrome G89.4 [facility] [address] [place] [id number] [place] [address] May, Mood disorder F39 [facility] [id number] [place] [address] Apr, Type 2 diabetes mellitus with diabetic polyneuropathy E11.42 [facility] [address] [place] [id number] [place] [address] Apr, [facility] [id number] [place] [address] Apr, Primary osteoarthritis of both knees M17.0 and Chronic pain syndrome G89.4 [facility] [address] [address] Apr, Mood disorder F39 [facility] [id number] [place] [address] Mar, Mood disorder F39 and Posttraumatic stress disorder F43.10 [facility] [id number] [place] [address] Mar, Primary osteoarthritis of both knees M17.0 and Chronic pain syndrome G89.4 [facility] [address] [place] [id number] [place] [address] Feb, Primary osteoarthritis of both knees M17.0 and Chronic pain syndrome G89.4 [facility] [id number] [place] [address] Feb, Mood disorder F39 [place] [address] [place] [id number] [place] [address] Jan, Type 2 diabetes mellitus with diabetic polyneuropathy E11.42 ; Primary osteoarthritis of both knees M17.0 ; Mood disorder F39 ; Obesity, morbid, BMI 40.0-49.9 E66.01 ; Chronic prescription opiate use Z79.891 ; Acute suppurative otitis media of both ears without spontaneous rupture of tympanic membranes, recurrence not specified H66.003 and BMI 45.0-49.9, adult Z68.42 [facility] [address] [place] [address] Jan, Primary osteoarthritis of both knees M17.0 and Chronic pain syndrome G89.4 [facility] [address] [address] Dec, Mood disorder F39 and Posttraumatic stress disorder F43.10 [facility] [address] [place] [address] Dec, Primary osteoarthritis of both knees M17.0 and Chronic pain syndrome G89.4 [facility] [id number] [place] [address] 18 Nov, 2016 Chronic pain syndrome G89.4 [facility] [id number] [place] [address] 15 Nov, 2016 Primary osteoarthritis of both knees M17.0 and Chronic pain syndrome G89.4 [facility] [address] [place] [id number] [place] [address] 13 Nov, 2016 Type 2 diabetes mellitus with diabetic polyneuropathy E11.42 and Chronic pain syndrome G89.4 [facility] [address] [place] [id number] [place] [address] 12 Nov, 2016 Posttraumatic stress disorder F43.10 and Mood disorder F39 [facility] [address] [place] [id number] [place] [address] 18 Oct, 2016 Chronic pain syndrome G89.4 [facility] [address] [place] [id number] [place] [address] 16 Oct, 2016 Type 2 diabetes mellitus with diabetic polyneuropathy E11.42 ; BMI 45.0-49.9, adult Z68.42 ; Primary osteoarthritis of both knees M17.0 and Skin lesion L98.9 [facility] [address] [place] [id number] [place] [address] Oct, Chronic pain syndrome G89.4 [facility] [address] [place] [id number] [place] [address] Sep, Chronic pain syndrome G89.4 [facility] [address] [place] [id number] [place] [address] Sep, [facility] [id number] [place] [address] Sep, Chronic pain syndrome G89.4 [facility] [address] [place] [id number] [place] [address] Aug, Chronic pain syndrome G89.4 [facility] [address] [place] [id number] [place] [address] Aug, [facility] [address], [place] [address] Aug, Macrocytosis D75.89 and Pure hypercholesterolemia E78.0 [facility] [address] [place] [id number] [place] [address] Aug, Pure hypercholesterolemia E78.0 [facility] [address] [place] [id number] [place] [address] Aug, Macrocytosis D75.89 [facility] [address] [id number] [place] [address] Aug, Pure hypercholesterolemia E78.0 ; Type 2 diabetes mellitus with diabetic polyneuropathy E11.42 ; MITCHELL treated with BiPAP G47.33 and Chronic pain syndrome G89.4 [place] [address] [place] [id number] [place] [address] Aug, [place] [address] [place] [id number] [place] [address] Aug, Hemorrhoids, unspecified hemorrhoid type K64.9 [place] [address] [place] [id number] [place] [address] Aug, Chronic pain syndrome G89.4 ; Type 2 diabetes mellitus with diabetic polyneuropathy E11.42 ; Hemorrhoids, unspecified hemorrhoid type K64.9 ; Tobacco abuse Z72.0 and Primary osteoarthritis of both knees M17.0 [place] [id number] [place] [address] July, Chronic pain syndrome G89.4 [facility] [address] [address] July, [facility] [address] [place] [id number] [place] [address] Jun, Chronic pain syndrome G89.4 [facility] [id number] [place] [address] Jun, Chronic pain syndrome G89.4 [facility] [address] [place] [id number] [place] [address] Jun, Severe major depression with psychotic features F32.3 and Posttraumatic stress disorder F43.10 [facility] [address] [place] [id number] [place] [address] Jun, Chronic pain syndrome G89.4 [facility] [address] [place] [id number] [place] [address] Jun, [facility] [address] [address] May, Chronic pain syndrome G89.4 [facility] [address] [address] May, Tobacco abuse Z72.0 [place] [address] [place] [id number] [place] [address] May, [facility] [address] [address] Apr, Chronic pain syndrome G89.4 [facility] [address] [place] [id number] [place] [address] Apr, [place] [address] [place] [id number] [place] [address] Apr, Right foot pain M79.671 [place] [address] [place] [id number] [place] [address] Mar, Type 2 diabetes mellitus with diabetic polyneuropathy E11.42 ; MITCHELL treated with BiPAP G47.33 ; Pure hypercholesterolemia E78.0 ; Chronic pain syndrome G89.4 ; Tobacco abuse Z72.0 and Obesity, morbid, BMI 40.0-49.9 E66.01 [facility] [address] [place] [id number] [place] [address] Mar, [facility] [address] [place] [id number] [place] [address] Mar, [facility] [address], [place] [address] Mar, [facility] [address], [place] [address] Mar, [facility] [address], [place] [address] Mar, [facility] [id number] [place] [address] Mar, Severe major depression with psychotic features F32.3 and Posttraumatic stress disorder F43.10 [facility] [address] [address] Mar, [facility] [id number] [place] [address] Feb, [facility] [address] [id number] [place] [address] Feb, [facility] [id number] [place] [address] Jan, [facility] [id number] [place] [address] Jan, [facility] [id number] [place] [address] Dec, Posttraumatic stress disorder F43.10 and Severe major depression with psychotic features F32.3 [facility] [address], [place] [address] Dec, Type 2 diabetes mellitus with diabetic polyneuropathy E11.42 ; Chronic pain syndrome G89.4 and Acute right-sided low back pain with right-sided sciatica M54.41 [facility] [address], [place] [address] Dec, [facility] [address], [place] [address] Dec, [facility] [id number] [place] [address] Nov, [facility] [address] [id number] [place] [address] Nov, [facility] [address] [id number] [place] [address] Nov, [facility] [address] [id number] [place] [address] Oct, [facility] [address] [address] Oct, [facility] [address] [address] Sep, Dental examination Z01.20 [facility] [address] [place] [id number] [place] [address] Sep, [facility] [address] [address] Sep, Type 2 diabetes mellitus with diabetic polyneuropathy E11.42 ; Chronic pain syndrome G89.4 ; Chronic prescription opiate use Z79.891 ; Injury of right index finger, sequela S69.91XS and Anejaculation N50.8 [facility] [address] [place] [id number] [place] [address] Aug, [facility] [address] [place] [id number] [place] [address] Aug, [facility] [address] [place] [id number] [place] [address] Aug, Cellulitis of finger of right hand L03.011 [facility] [address] [address] July, [facility] [address] [id number] [place] [address] July, [facility] [address] [place] [id number] [place] [address] Jun, Onychomycosis B35.1 [facility] [address], [place] [address] Jun, Severe major depression with psychotic features F32.3 and Posttraumatic stress disorder F43.10 [facility] [address], [place] [address] Jun, [facility] [address] [place] [id number] [place] [address] Jun, [facility] [id number] [place] [address] Jun, [facility] [address] [place] [id number] [place] [address] May, Type 2 diabetes mellitus with diabetic polyneuropathy E11.42 [place] [address] [place] [id number] [place] [address] May, Type 2 diabetes mellitus with diabetic polyneuropathy E11.42 and Urinary hesitancy R39.11 [facility] [address] [place] [id number] [place] [address] May, Type 2 diabetes mellitus with diabetic polyneuropathy E11.42 ; Left hip pain M25.552 and Benign prostatic hyperplasia with lower urinary tract symptoms, unspecified morphology N40.1 [facility] [address], [place] [address] May, [facility] [address] [place] [id number] [place] [address] Apr, Severe major depression with psychotic features F32.3 and Posttraumatic stress disorder F43.10 [facility] [address] [place] [id number] [place] [address] Apr, [facility] [address], [place] [address] Mar, [facility] [address] [place] [id number] [place] [address] Mar, Dysuria R30.0 and Urinary hesitancy R39.11 [facility] [address], [place] [address] Mar, Onychomycosis B35.1 [facility] [address], [place] [address] 08 Mar, 2015 [facility] [id number] [place] [address] Feb, [facility] [address] [id number] [place] [address] Jan, [facility] [address] [place] [id number] [place] [address] Jan, Posttraumatic stress disorder F43.10 and Severe major depression with psychotic features F32.3 [facility] [address] [place] [id number] [place] [address] Jan, [facility] [address] [place] [id number] [place] [address] Jan, Chronic pain syndrome G89.4 ; Type 2 diabetes mellitus with diabetic polyneuropathy E11.42 ; Decreased pedal pulses R09.89 and Paresthesia of both hands R20.2 [facility] [address], [place] [address] Dec, Posttraumatic stress disorder F43.10 and Severe major depression with psychotic features F32.3 [facility] [address], [place] [address] Dec, [facility] [id number] [place] [address] Dec, [facility] [address] [place] [id number] [place] [address] Dec, Onychomycosis B35.1 [facility] [address], [place] [address] Dec, [facility] [address], [place] [address] Dec, [facility] [address] [place] [id number] [place] [address] Nov, [facility] [address] [id number] [place] [address] Oct, Depression, major, recurrent, moderate 296.32 and Posttraumatic stress disorder 309.81 [place] [address] [place] [id number] [place] [address] Oct, [facility] [address] [place] [id number] [place] [address] Oct, [place] [address] [place] [id number] [place] [address] Oct, [place] [address] [place] [id number] [place] [address] Sep, Posttraumatic stress disorder 309.81 and Depression, major, recurrent, moderate 296.32 [place] [address] [place] [id number] [place] [address] Sep, [place] [id number] [place] [address] Sep, Chronic airway obstruction, not elsewhere classified [address] [id number] [place] [address] Sep, Onychomycosis 110.1 and DM neuro manif type II 250.60 [place] [id number] [place] [address] Sep, Chronic pain 338.29 ; Chronic airway obstruction, not elsewhere classified 496 ; Osteoarthritis of knees, bilateral 715.96 and On potassium wasting diuretic therapy V58.69 [address] [place] [address] Sep, Insect bites 919.4 ; Sinusitis 473.9 and GERD (gastroesophageal reflux disease) 530.81 [place] [address] [place] [id number] [address] Aug, Depression, major, recurrent, moderate 296.32 and Posttraumatic stress disorder 309.81 [facility] [address] [place] [id number], [place] [address] Aug, [facility] [address] [place] [id number], [place] [address] Aug, [facility] [address] [facility] [id number] [place] [address] Aug, [facility] [address] [place] [id number], [place] [address] July, Major depressive disorder, recurrent episode, moderate 296.32 and Posttraumatic stress disorder 309.81 [facility] [address], [place] [address] July, [facility] [address] [address] July, [facility] [address], [place] [address] July, [facility] [address], [place] [address] July, [facility] [address], [place] [address] Jun, [facility] [address], [place] [address] Jun, [facility] [address] [id number], [place] [address] May, [facility] [address], [place] [address] May, [facility] [address] [place] [id number], [place] [address] May, [facility] [address], [place] [address] May, [facility] [place] [facility] [address] [id number] [place] [address] May, [facility] [place] [facility] [address] [id number] [place] [address] May, [facility] [place] [facility] [address] [facility] [id number] [place] [address] May, [facility] [place] [facility] [address] [id number] [place] [address] May, [facility] [place] [facility] [address] [id number] [place] [address] May, [facility] [place] [facility] [address] [id number] [place] [address] Apr, 2014 [facility] [place] [facility] [address] [facility] [id number] [place] [address] Apr, 2014 [facility] [place] [facility] [address] [id number] [place] [address] Apr, 2014 [facility] [place] [facility] [address] [id number] [place] [address] Apr, 2014 [facility] [place] [facility] [address] [facility] [id number] [place] [address] Apr, 2014 [facility] [place] [facility] [address] [facility] [id number] [place] [address] Apr, 2014 [facility] [place] [facility] [address] [facility] [id number] [address] Apr, 2014 [facility] [place] [facility] [address] [facility] [id number] [place] [address] Apr, 2014 [facility] [place] [facility] [address] [facility] [id number], [place] [address] Apr, 2014 [facility] [place] [facility] [address] [facility] [id number], [place] [address] Mar, [facility] [place] [facility] [address] [id number] [place] [address] 30 Mar, 2014 [facility] [place] [facility] [address] [id number] [place] [address] Mar, [facility] [place] [facility] [address] [id number] [place] [address] 23 Mar, 2014 [facility] [place] [facility] [address] [id number] [place] [address] 15 Mar, 2014 [facility] [place] [facility] [address] [id number] [place] [address] 15 Mar, 2014 [facility] [place] [facility] [address] [id number] [place] [address] 15 Mar, 2014 [facility] [place] [facility] [address] [id number] [place] [address] 15 Mar, 2014 [facility] [place] [facility] [address] [id number] [place] [address] 15 Mar, 2014 [facility] [place] [facility] [address] [id number] [place] [address] 15 Mar, 2014 [facility] [place] [facility] [address] [id number] [place] [address] 14 Mar, 2014 [facility] [place] [facility] [address] [address] [id number] [place] [address] 14 Mar, 2014 [facility] [place] [facility] [address] [id number] [place] [address] 14 Mar, 2014 [facility] [place] [facility] [address] [id number] [place] [address] 14 Mar, 2014 [facility] [place] [facility] [address] [id number] [place] [address] 14 Mar, 2014 [facility] [place] [facility] [address] [id number] [place] [address] 14 Mar, 2014 [facility] [place] [facility] [address] [id number] [place] [address] Mar, [facility] [place] [facility] [address] [id number] [place] [address] Mar, [facility] [place] [facility] [address] [id number] [place] [address] Feb, [facility] [place] [facility] [address] [id number] [place] [address] Feb, [facility] [place] [facility] [address] [id number] [place] [address] Feb, [facility] [place] [facility] [address] [id number] [place] [address] Feb, [facility] [place] [facility] [address] [id number] [place] [address] Feb, [facility] [place] [facility] [address] [id number] [place] [address] Feb, [facility] [place] [facility] [address] [id number] [place] [address] Jan, [facility] [place] [facility] [address] [id number] [place] [address] Jan, [facility] [place] [facility] [address] [id number] [place] [address] Jan, [facility] [place] [facility] [address] [id number], [place] [address] Jan, [facility] [place] [facility] [address] [id number], [place] [address] Jan, [facility] [place] [facility] [address] [id number] [place] [address] Jan, [facility] [place] [facility] [address] [id number] [place] [address] Jan, [facility] [place] [facility] [address] [id number] [place] [address] Jan, [facility] [place] [facility] [address] [id number] [place] [address] Jan, [facility] [place] [facility] [address] [id number] [place] [address] Jan, [facility] [place] [facility] [address] [id number] [place] [address] Dec, [facility] [place] [facility] [address] [id number] [place] [address] Dec, [facility] [place] [facility] [address] [id number] [place] [address] Dec, [facility] [place] [facility] [address] [id number] [place] [address] Dec, [facility] [place] [facility] [address] [id number] [place] [address] 16 Nov, 2013 [facility] [place] [facility] [address] [id number] [place] [address] 16 Nov, 2013 [facility] [place] [facility] [address] [id number] [place] [address] Nov, 2013 [facility] [place] [facility] [address] [id number] [place] [address] Nov, 2013 [facility] [place] [facility] [address] [id number] [place] [address] Nov, 2013 [facility] [place] [facility] [address] [id number] [place] [address] Nov, 2013 [facility] [place] [facility] [address] [id number] [place] [address] Oct, [facility] [place] [facility] [address] [id number] [place] [address] Oct, [facility] [place] [facility] [address] [id number] [place] [address] Oct, [facility] [place] [facility] [address] [id number] [place] [address] Oct, [facility] [place] [facility] [address] [id number] [place] [address] Sep, [facility] [place] [facility] [address] [id number] [place] [address] Sep, [facility] [place] [facility] [address] [id number] [place] [address] Sep, [facility] [place] [facility] [address] [id number] [place] [address] Sep, [facility] [place] [facility] [address] [id number] [place] [address] Sep, [facility] [place] [facility] [address] [id number] [place] [address] Sep, [facility] [place] [facility] [address] [id number] [place] [address] July, [facility] [place] [facility] [address] [id number] [place] [address] July, [facility] [place] [facility] [address] [id number] [place] [address] July, [facility] [place] [facility] [address] [id number] [place] [address] July, [facility] [place] [facility] [address] [id number] [place] [address] Jun, [facility] [place] [facility] [address] [id number] [place] [address] Jun, [facility] [place] [facility] [address] [id number] [place] [address] Jun, [facility] [place] [facility] [address] [id number] [place] [address] Jun, [facility] [place] [facility] [address] [id number] [place] [address] Jun, [facility] [place] [facility] [address] [id number], [place] [address] Jun, [facility] [place] [facility] [address] [id number] [place] [address] May, [facility] [place] [facility] [address] [id number] [place] [address] May, [facility] [place] [facility] [address] [id number] [place] [address] Apr, [facility] [place] [facility] [address] [id number] [place] [address] Apr, [facility] [place] [facility] [address] [id number] [place] [address] Apr, [facility] [place] [facility] [address] [id number] [place] [address] Apr, [facility] [place] [facility] [address] [id number] [place] [address] Apr, [facility] [place] [facility] [address] [id number] [place] [address] Apr, [facility] [place] [facility] [address] [id number] [place] [address] Apr, [facility] [place] [facility] [address] [facility] [id number] [place] [address] Mar, [facility] [place] [facility] [address] [id number] [place] [address] Mar, [facility] [place] [facility] [address] [id number] [place] [address] Mar, [facility] [place] [facility] [address] [id number] [place] [address] Mar, [facility] [place] [facility] [address] [id number] [place] [address] Mar, [facility] [place] [facility] [address] [id number] [place] [address] Mar, [facility] [place] [facility] [address] [id number] [place] [address] Mar, [facility] [address] [id number] [place] [address] Mar, [facility] [address] [id number] [place] [address] Feb, [facility] [address] [id number] [place] [address] Feb, [facility] [address] [id number] [place] [address] Feb, [facility] [address] [id number] [place] [address] Feb, [facility] [address] [id number] [place] [address] Feb, [facility] [address] [id number] [place] [address] Feb, [facility] [address] [id number] [place] [address] Feb, [facility] [address] [id number] [place] [address] Jan, [facility] [address] [id number] [place] [address] Jan, [facility] [address] [id number], [place] [address] Jan, [facility] [address] [id number] [place] [address] Jan, [facility] [place] [facility] [address] [id number] [place] [address] Jan, [facility] [address] [id number] [place] [address] Jan, [facility] [address] [id number] [id number] Jan, [facility] [place] [facility] [address] [id number][place] [id number] Jan, [facility] [place] [facility] [address] [id number] [place] [address] Dec, [facility] [place] [facility] [address] [id number] [place] [address] Dec, [facility] [place] [facility] [address] [id number], [place] [address] Dec, [facility] [place] [facility] [address] [id number] [place] [address] Dec, [facility] [place] [facility] [address] [id number] [place] [address] Dec, [facility] [place] [facility] [address] [id number] [place] [address] Dec, [facility] [place] [facility] [address] [id number], [place] [address] Dec, [facility] [place] [facility] [address] [id number], [place] [address] Dec, [facility] [place] [facility] [address] [id number], [place] [address] Dec, [facility] [place] [facility] [address] [id number], [place] [address] Dec, [facility] [place] [facility] [address] [id number][place] [id number] Nov, [facility] [place] [facility] [address] [id number] [id number] Nov, [facility] [place] [facility] [address] [id number], [place] [address] 24 Nov, 2012 [facility] [place] [facility] [address] [id number], [place] [address] 20 Nov, 2012 [facility] [place] [facility] [address] [id number] [place] [address] Nov, [facility] [address] [id number] [place] [address] 13 Nov, 2012 [facility] [place] [facility] [address] [id number] [place] [address] 10 Nov, 2012 [facility] [place] [facility] [address] [id number] [place] [address] Nov, [facility] [place] [facility] [address] [id number] [place] [address] Oct, [facility] [place] [facility] [address] [id number] [place] [address] Oct, [facility] [place] [facility] [address] [id number] [place] [address] Oct, [facility] [address] [id number] [place] [address] Sep, [facility] [place] [facility] [address] [id number] [place] [address] Sep, [facility] [place] [facility] [address] [id number] [place] [address] Sep, [facility] [place] [facility] [address] [id number] [place] [address] Sep, [facility] [place] [facility] [address] [id number] [place] [address] Sep, [facility] [place] [facility] [address] [id number] [place] [address] Aug, [facility] [place] [facility] [address] [id number] [place] [address] Aug, [facility] [place] [facility] [address] [id number] [place] [address] Aug, [facility] [place] [facility] [address] [id number] [place] [address] Aug, [facility] [place] [facility] [address] [id number] [place] [address] Aug, [facility] [address] [id number] [place] [address] Aug, [facility] [address] [id number] [place] [address] July, [facility] [address] [id number] [place] [address] July, [facility] [address] [id number] [place] [address] July, [facility] [address] [id number] [place] [address] July, [facility] [address] [id number] [place] [address] July, [facility] [address] [id number] [place] [address] July, [facility] [address] [id number] [place] [address] Jun, [facility] [address] [id number] [place] [address] Jun, [facility] [address] [id number] [place] [address] Jun, [facility] [address] [id number] [place] [address] Jun, [facility] [address] [id number] [place] [address] May, [facility] [place] [facility] [address] [id number] [place] [address] May, [facility] [place] [facility] [address] [id number] [place] [address] May, [facility] [place] [facility] [address] [id number] [place] [address] Apr, [facility] [place] [facility] [address] [id number] [place] [address] Mar, [facility] [place] [facility] [address] [id number] [place] [address] 18 Mar, 2012 [facility] [place] [facility] [address] [facility] [id number] [place] [address] 17 Mar, 2012 [facility] [place] [facility] [address] [id number], [place] [address] 16 Mar, 2012 [facility] [place] [facility] [address] [id number] [place] [address] Mar, [facility] [place] [facility] [address] [facility] [id number] [place] [address] Feb, [facility] [place] [facility] [address] [id number] [place] [address] Feb, [facility] [place] [facility] [address] [id number], [place] [address] Feb, [facility] [place] [facility] [address] [id number], [place] [address] Feb, [facility] [place] [facility] [address] [facility] [id number], [place] [address] Jan, [facility] [place] [facility] [address] [id number], [place] [address] Jan, [facility] [place] [facility] [address] [id number], [place] [address] Jan, [facility] [place] [facility] [address] [id number], [place] [address] Jan, [facility] [place] [facility] [address] [facility] [id number], [place] [address] Dec, [facility] [place] [facility] [address] [facility] [id number], [place] [address] Dec, [facility] [place] [facility] [address] [id number] [place] [address] Nov, [facility] [address] [id number] [place] [address] Oct, [facility] [address] [id number] [place] [address] Oct, [facility] [address] [id number] [place] [address] Oct, [facility] [address] [id number] [place] [address] Oct, [facility] [address] [id number] [place] [address] Oct, [facility] [address] [id number] [place] [address] Sep, [facility] [address] [id number] [place] [address] Sep, [facility] [address] [id number] [place] [address] Aug, [facility] [address] [place] [id number] Aug, [facility] [address] [id number] [place] [address] Aug, [facility] [address] [id number] [place] [address] July, [facility] [address] [id number] [place] [address] July, [facility] [address] [id number] [place] [address] Jun, [facility] [address] [id number] [place] [address] Jun, [facility] [address] [id number] [place] [address] Jun, [facility] [address] [id number] [place] [address] 13 Jun, 2011 [facility] [address] [id number] [place] [address] 15 Apr, 2011 [facility] [place] [facility] [address] [id number] [place] [address] 15 Apr, 2011 [facility] [place] [facility] [address] [id number] [place] [address] 10 Apr, 2011 [facility] [place] [facility] [address] [id number] [place] [address] Mar, [facility] [place] [facility] [address] [id number] [place] [address] Mar, [facility] [address] [id number] [place] [address] Mar, [facility] [address] [id number] [place] [address] Mar, [facility] [address] [id number] [place] [address] Mar, [facility] [place] [facility] [address] [id number] [place] [address] Jan, [facility] [address] [id number] [place] [address] Jan, [facility] [place] [facility] [address] [id number] [place] [address] Jan, [facility] [place] [facility] [address] [id number] [place] [address] Mar, [facility] [place] [facility] [address] [id number] [place] [address] Mar, [facility] [place] [facility] [address] [id number] [place] [address] Feb, [facility] [place] [facility] [address] [id number] [place] [address] Feb, [facility] [address] [id number], [place] [address] 16 Feb, 2010 [facility] [id number], [place] [address] Jan, [facility] [id number], [place] [address] Jan, [facility] [id number] [place] [address] Dec, [facility] [id number], [place] [address] Dec, [facility] [id number] [place] [address] May, [facility] [id number] [place] [address] Apr, [facility] [id number] [place] [address] Feb, [facility] [id number] [place] [id number] Feb, [facility] [id number] [address] Jan, [facility] [id number] [address] Jan, [facility] [id number] [address] Jan, [facility] [id number] [address] Jan, [facility] [id number] [address] Jan, IMMUNIZATIONS No Known Immunizations SOCIAL HISTORY Never Assessed REASON FOR VISIT Controlled Medication Refill PLAN OF CARE VITAL SIGNS MEDICATIONS Medication Instructions Dosage Frequency Start Date End Date Duration Status MS Contin 30 MG Orally every 12 hrs 1 tablet 12h 06 May, 2018 28 days Active Hydrocodone-Acetaminophen 5-325 MG Orally every 6 hrs 1 tablet as needed 6h May, 28 days Active RESULTS No Results PROCEDURES [...]
--- OUTSIDE RECORDS SUMMARY | 2018-10-04 06:48 | XMS REPORT ---
Author Author KISHA CHAVIS [facility] Address [address] [place] [address] Care Team Providers Care Criminology Professor Name Role Phone PALMIRA KISHA Unavailable PROBLEMS Type Condition ICD9-CM Code EUK33-EO Code Onset Dates Condition Status SNOMED Code Problem MITCHELL treated with BiPAP G47.33 Active 42545137 Problem Acute right-sided low back pain with right-sided sciatica M54.41 Active 49816310 Problem Chronic prescription opiate use Z79.891 Active 387753512 Problem BMI 45.0-49.9, adult Z68.42 Active 014298174 Problem Gastroesophageal reflux disease, esophagitis presence not specified K21.9 Active 607170264 Problem Macrocytosis D75.89 Active 498449747 Problem Major depressive disorder, recurrent episode, unspecified severity F33.9 Active 44673603 Problem Primary osteoarthritis of both knees M17.0 Active 493527745 Problem Severe major depression with psychotic features F32.3 Active 72856314 Problem Posttraumatic stress disorder F43.10 Active 09053659 Problem Tobacco abuse Z72.0 Active 030279883 Problem Obesity, morbid, BMI 40.0-49.9 E66.01 Active 325396084 Problem History of weight loss surgery Z98.84 Active 319215381 Problem PTSD (post-traumatic stress disorder) F43.10 Active 27989038 Problem Non-ischemic cardiomyopathy I42.9 Active 69131884 Problem Chronic obstructive pulmonary disease, unspecified COPD type J44.9 Active 37807284 Problem Pure hypercholesterolemia E78.0 Active 356408182 Problem Type 2 diabetes mellitus with diabetic polyneuropathy E11.42 Active 255757801 Problem Chronic systolic (congestive) heart failure I50.22 Active 695206530 Problem History of DVT (deep vein thrombosis) Z86.718 Active 923355925 Problem Nocturnal hypoxia G47.34 Active 969289782 Problem Chronic pain syndrome G89.4 Active 263944207 Problem Essential hypertension I10 Active 98462570 ALLERGIES Unknown Allergies SOCIAL HISTORY No smoking Hx information available PLAN OF CARE VITAL SIGNS MEDICATIONS Medication Instructions Dosage Frequency Start Date End Date Duration Status MS Contin 15 MG Orally Once a day in the am- appt needed before due for next refill 1 tablet Mar, 28 days Active RESULTS No Results PROCEDURES No Known procedures IMMUNIZATIONS No Known Immunizations
--- OUTSIDE RECORDS SUMMARY | 2018-10-04 06:48 | XMS REPORT ---
Author Author DELILAH FEDERICO Organization [facility] Address [address] [place] [address] Care Team Providers Care Baked And Graphite Inspector Name Role Phone AGUILARPAWAN ADHIKARIA Unavailable PROBLEMS Type Condition ICD9-CM Code [id number] Code Onset Dates Condition Status SNOMED Code Problem Primary osteoarthritis of both knees M17.0 Active 231929229 Problem Nocturnal hypoxia G47.34 Active 488857843 Problem Chronic prescription opiate use Z79.891 Active 581829218 Problem Pure hypercholesterolemia E78.0 Active 255061458 Problem Acute right-sided low back pain with right-sided sciatica M54.41 Active 95122504 Problem Type 2 diabetes mellitus with diabetic polyneuropathy E11.42 Active 789902869 Problem Severe major depression with psychotic features F32.3 Active 51156172 Problem Obesity, morbid, BMI 40.0-49.9 E66.01 Active 603940082 Problem Posttraumatic stress disorder F43.10 Active 35874137 Problem Primary insomnia F51.01 Active 2616910 Problem Mood disorder F39 Active 38886424 Problem History of DVT (deep vein thrombosis) Z86.718 Active 988602944 Problem Chronic pain syndrome G89.4 Active 328719284 Problem Chronic systolic (congestive) heart failure I50.22 Active 830502852 Problem Macrocytosis D75.89 Active 377580270 Problem Tobacco abuse Z72.0 Active 803049849 Problem Mild episode of recurrent major depressive disorder F33.0 Active 756813629 Problem BMI 45.0-49.9, adult Z68.42 Active 442996640 Problem Gastroesophageal reflux disease, esophagitis presence not specified K21.9 Active 149288874 Problem Non-ischemic cardiomyopathy I42.9 Active 39803461 Problem Essential hypertension I10 Active 42954530 Problem Major depressive disorder, recurrent episode, unspecified severity F33.9 Active 82277701 Problem PTSD (post-traumatic stress disorder) F43.10 Active 11920679 Problem MITCHELL treated with BiPAP G47.33 Active 72121930 Problem Chronic obstructive pulmonary disease, unspecified COPD type J44.9 Active 59684086 Problem History of weight loss surgery Z98.84 Active 298751765 ALLERGIES No Information ENCOUNTERS Encounter Location Date Diagnosis [place] [id number] [place] [address] Oct, [place] [address] [place] [id number] [place] [address] Sep, [place] [address] [place] [id number] [place] [address] Aug, Primary osteoarthritis of both knees M17.0 and Chronic pain syndrome G89.4 [place] [address] [address] July, Primary osteoarthritis of both knees M17.0 and Chronic pain syndrome G89.4 [place] [address] [place] [id number] [place] [address] July, Type 2 diabetes mellitus with diabetic polyneuropathy E11.42 ; Essential hypertension I10 ; Pure hypercholesterolemia E78.0 ; Chronic prescription opiate use Z79.891 ; Tobacco abuse Z72.0 ; Primary osteoarthritis of both knees M17.0 ; Primary insomnia F51.01 and BMI 45.0-49.9, adult Z68.42 [place] [address] [place] [address] July, Medicare annual wellness visit, initial Z00.00 [...] specified K21.9 and Encounter for immunization Z23 [place] [address] [place] [id number] [place] [address] July, Primary osteoarthritis of both knees M17.0 and Chronic pain syndrome G89.4 [facility] [address] [place] [address] Jun, Infection of right ear H66.91 ; Wheezing on auscultation R06.2 and BMI 45.0-49.9, adult Z68.42 [facility] [address] [id number] [place] [address] Jun, [facility] [address] [id number] [place] [address] Jun, Primary osteoarthritis of both knees M17.0 and Chronic pain syndrome G89.4 [facility] [address] [place] [id number] [place] [address] May, [facility] [address] [id number] [place] [address] May, BMI 45.0-49.9, adult Z68.42 ; Mood disorder F39 and Posttraumatic stress disorder F43.10 [facility] [id number] [place] [address] May, [facility] [address] [place] [id number] [place] [address] May, Primary osteoarthritis of both knees M17.0 and Chronic pain syndrome G89.4 [facility] [address] [id number] [place] [address] May, Mood disorder F39 [facility] [address] [id number] [place] [address] Apr, Type 2 diabetes mellitus with diabetic polyneuropathy E11.42 [facility] [address] [place] [id number] [place] [address] Apr, [facility] [address] [id number] [place] [address] Apr, Primary osteoarthritis of both knees M17.0 and Chronic pain syndrome G89.4 [facility] [address] [address] Apr, Mood disorder F39 [facility] [address] [id number] [place] [address] Mar, Mood disorder F39 and Posttraumatic stress disorder F43.10 [facility] [address] [place] [address] Mar, Primary osteoarthritis of both knees M17.0 and Chronic pain syndrome G89.4 [facility] [address] [place] [id number] [place] [address] Feb, Primary osteoarthritis of both knees M17.0 and Chronic pain syndrome G89.4 [facility] [address] [place] [address] Feb, Mood disorder F39 [place] [address] [place] [id number] [place] [address] Jan, Type 2 diabetes mellitus with diabetic polyneuropathy E11.42 ; Primary osteoarthritis of both knees M17.0 ; Mood disorder F39 ; Obesity, morbid, BMI 40.0-49.9 E66.01 ; Chronic prescription opiate use Z79.891 ; Acute suppurative otitis media of both ears without spontaneous rupture of tympanic membranes, recurrence not specified H66.003 and BMI 45.0-49.9, adult Z68.42 [facility] [address] [place] [address] Jan, Primary osteoarthritis of both knees M17.0 and Chronic pain syndrome G89.4 [facility] [address] [address] Dec, Mood disorder F39 and Posttraumatic stress disorder F43.10 [facility] [address] [place] [address] Dec, Primary osteoarthritis of both knees M17.0 and Chronic pain syndrome G89.4 [facility] [address] [place] [address] 18 Nov, 2016 Chronic pain syndrome G89.4 [facility] [address] [place] [address] 15 Nov, 2016 Primary osteoarthritis of both knees M17.0 and Chronic pain syndrome G89.4 [facility] [address] [place] [id number] [place] [address] 13 Nov, 2016 Type 2 diabetes mellitus with diabetic polyneuropathy E11.42 and Chronic pain syndrome G89.4 [facility] [address] [place] [id number] [place] [address] 12 Nov, 2016 Posttraumatic stress disorder F43.10 and Mood disorder F39 [facility] [address] [place] [id number] [place] [address] 18 Oct, 2016 Chronic pain syndrome G89.4 [facility] [address] [place] [id number] [place] [address] 16 Oct, 2016 Type 2 diabetes mellitus with diabetic polyneuropathy E11.42 ; BMI 45.0-49.9, adult Z68.42 ; Primary osteoarthritis of both knees M17.0 and Skin lesion L98.9 [facility] [address] [place] [id number] [place] [address] Oct, Chronic pain syndrome G89.4 [facility] [address] [place] [id number] [place] [address] Sep, Chronic pain syndrome G89.4 [facility] [address] [place] [id number] [place] [address] Sep, [facility] [address] [place] [address] Sep, Chronic pain syndrome G89.4 [facility] [address] [place] [id number] [place] [address] Aug, Chronic pain syndrome G89.4 [facility] [address] [id number] [place] [address] Aug, [facility] [address] [address] Aug, Macrocytosis D75.89 and Pure hypercholesterolemia E78.0 [facility] [address] [place] [id number] [place] [address] Aug, Pure hypercholesterolemia E78.0 [facility] [address] [place] [id number] [place] [address] Aug, Macrocytosis D75.89 [facility] [address] [place] [id number] [place] [address] Aug, Pure hypercholesterolemia E78.0 ; Type 2 diabetes mellitus with diabetic polyneuropathy E11.42 ; MITCHELL treated with BiPAP G47.33 and Chronic pain syndrome G89.4 [place] [address] [place] [id number] [place] [address] Aug, [place] [address] [place] [id number] [place] [address] Aug, Hemorrhoids, unspecified hemorrhoid type K64.9 [place] [address] [place] [id number] [place] [address] Aug, Chronic pain syndrome G89.4 ; Type 2 diabetes mellitus with diabetic polyneuropathy E11.42 ; Hemorrhoids, unspecified hemorrhoid type K64.9 ; Tobacco abuse Z72.0 and Primary osteoarthritis of both knees M17.0 [place] [address] [place] [address] July, Chronic pain syndrome G89.4 [facility] [address] [address] July, [facility] [address] [place] [id number] [place] [address] Jun, Chronic pain syndrome G89.4 [facility] [address] [place] [address] Jun, Chronic pain syndrome G89.4 [facility] [address] [place] [id number] [place] [address] Jun, Severe major depression with psychotic features F32.3 and Posttraumatic stress disorder F43.10 [facility] [address] [place] [id number] [place] [address] Jun, Chronic pain syndrome G89.4 [facility] [address] [place] [id number] [place] [address] Jun, [facility] [address] [address] May, Chronic pain syndrome G89.4 [facility] [address] [address] May, Tobacco abuse Z72.0 [place] [address] [place] [id number] [place] [address] May, [facility] [address] [address] Apr, Chronic pain syndrome G89.4 [facility] [address] [place] [id number] [place] [address] Apr, [place] [address] [place] [id number] [place] [address] Apr, Right foot pain M79.671 [place] [address] [place] [id number] [place] [address] Mar, Type 2 diabetes mellitus with diabetic polyneuropathy E11.42 ; MITCHELL treated with BiPAP G47.33 ; Pure hypercholesterolemia E78.0 ; Chronic pain syndrome G89.4 ; Tobacco abuse Z72.0 and Obesity, morbid, BMI 40.0-49.9 E66.01 [facility] [address] [place] [id number] [place] [address] Mar, [facility] [address] [place] [id number] [place] [address] Mar, [facility] [address] [address] Mar, [facility] [address] [address] Mar, [facility] [address] [address] Mar, [facility] [address] [place] [address] Mar, Severe major depression with psychotic features F32.3 and Posttraumatic stress disorder F43.10 [facility] [address] [address] Mar, [facility] [address] [place] [address] Feb, [facility] [address] [place] [id number] [place] [address] Feb, [facility] [address] [place] [address] Jan, [facility] [address] [place] [address] Jan, [facility] [address] [place] [address] Dec, Posttraumatic stress disorder F43.10 and Severe major depression with psychotic features F32.3 [facility] [address] [address] Dec, Type 2 diabetes mellitus with diabetic polyneuropathy E11.42 ; Chronic pain syndrome G89.4 and Acute right-sided low back pain with right-sided sciatica M54.41 [facility] [address] [address] Dec, [facility] [address] [address] Dec, [facility] [address] [place] [address] Nov, [facility] [address] [place] [id number] [place] [address] Nov, [facility] [address] [place] [id number] [place] [address] Nov, [facility] [address] [place] [id number] [place] [address] Oct, [facility] [address] [address] Oct, [facility] [address] [address] Sep, Dental examination Z01.20 [facility] [address] [place] [id number] [place] [address] Sep, [facility] [address] [address] Sep, Type 2 diabetes mellitus with diabetic polyneuropathy E11.42 ; Chronic pain syndrome G89.4 ; Chronic prescription opiate use Z79.891 ; Injury of right index finger, sequela S69.91XS and Anejaculation N50.8 [facility] [address] [place] [id number] [place] [address] Aug, [facility] [address] [place] [id number] [place] [address] Aug, [facility] [address] [place] [id number] [place] [address] Aug, Cellulitis of finger of right hand L03.011 [facility] [address] [address] July, [facility] [address] [place] [id number] [place] [address] July, [facility] [address] [place] [id number] [place] [address] Jun, Onychomycosis B35.1 [facility] [address] [address] Jun, Severe major depression with psychotic features F32.3 and Posttraumatic stress disorder F43.10 [facility] [address] [address] Jun, [facility] [address] [place] [id number] [place] [address] Jun, [facility] [address] [place] [address] Jun, [facility] [address] [place] [id number] [place] [address] May, Type 2 diabetes mellitus with diabetic polyneuropathy E11.42 [place] [address] [place] [id number] [place] [address] May, Type 2 diabetes mellitus with diabetic polyneuropathy E11.42 and Urinary hesitancy R39.11 [facility] [address] [place] [id number] [place] [address] May, Type 2 diabetes mellitus with diabetic polyneuropathy E11.42 ; Left hip pain M25.552 and Benign prostatic hyperplasia with lower urinary tract symptoms, unspecified morphology N40.1 [facility] [address] [address] May, [facility] [address] [place] [id number] [place] [address] Apr, Severe major depression with psychotic features F32.3 and Posttraumatic stress disorder F43.10 [facility] [address] [place] [id number] [place] [address] Apr, [facility] [address] [address] Mar, [facility] [address] [place] [id number] [place] [address] Mar, Dysuria R30.0 and Urinary hesitancy R39.11 [facility] [address] [address] Mar, Onychomycosis B35.1 [facility] [address] [address] 08 Mar, 2015 [facility] [address] [place] [id number] [place] [address] Feb, [facility] [address] [place] [id number] [place] [address] Jan, [facility] [address] [place] [id number] [place] [address] Jan, Posttraumatic stress disorder F43.10 and Severe major depression with psychotic features F32.3 [facility] [address] [place] [id number] [place] [address] Jan, [facility] [address] [id number] [place] [address] Jan, Chronic pain syndrome G89.4 ; Type 2 diabetes mellitus with diabetic polyneuropathy E11.42 ; Decreased pedal pulses R09.89 and Paresthesia of both hands R20.2 [facility] [address] [address] Dec, Posttraumatic stress disorder F43.10 and Severe major depression with psychotic features F32.3 [facility] [address] [address] Dec, [facility] [address] [place] [address] Dec, [facility] [address] [place] [id number] [place] [address] Dec, Onychomycosis B35.1 [facility] [address] [address] Dec, [facility] [address] [address] Dec, [facility] [address] [place] [id number] [place] [address] Nov, [facility] [address] [place] [id number] [place] [address] Oct, Depression, major, recurrent, moderate 296.32 and Posttraumatic stress disorder 309.81 [place] [address] [place] [id number] [place] [address] Oct, [facility] [address] [place] [id number] [place] [address] Oct, [place] [address] [id number] [place] [address] Oct, [place] [address] [id number] [place] [address] Sep, Posttraumatic stress disorder 309.81 and Depression, major, recurrent, moderate 296.32 [place] [address] [place] [id number] [place] [address] Sep, [place] [id number] [place] [address] Sep, Chronic airway obstruction, not elsewhere classified [id number] [place] [address] Sep, Onychomycosis 110.1 and DM neuro manif type II 250.60 [place] [id number] [place] [address] Sep, Chronic pain 338.29 ; Chronic airway obstruction, not elsewhere classified 496 ; Osteoarthritis of knees, bilateral 715.96 and On potassium wasting diuretic therapy V58.69 [address] [place] [address] Sep, Insect bites 919.4 ; Sinusitis 473.9 and GERD (gastroesophageal reflux disease) 530.81 [place] [address] [place] [id number] [address] Aug, Depression, major, recurrent, moderate 296.32 and Posttraumatic stress disorder 309.81 [facility] [id number] [address] Aug, [facility] [id number] [address] Aug, [facility] [address] [facility] [id number] [place] [address] Aug, [facility] [id number] [address] July, Major depressive disorder, recurrent episode, moderate 296.32 and Posttraumatic stress disorder 309.81 [facility] [address] [address] July, [facility] [id number] [address] July, [facility] [address] [address] July, [facility] [address] [address] July, [facility] [address] [address] Jun, [facility] [address] [address] Jun, [facility] [id number] [address] May, [facility] [address] [address] May, [facility] [id number] [address] May, [facility] [address] [address] May, [facility] [place] [facility] [address] [id number] [place] [address] May, [facility] [place] [facility] [address] [id number] [place] [address] May, [facility] [place] [facility] [address] [facility] [id number] [place] [address] May, [facility] [place] [facility] [address] [id number] [place] [address] May, [facility] [place] [facility] [address] [id number] [place] [address] May, [facility] [place] [facility] [address] [id number] [place] [address] Apr, 2014 [facility] [place] [facility] [address] [facility] [id number] [place] [address] Apr, 2014 [facility] [place] [facility] [address] [id number] [place] [address] Apr, 2014 [facility] [place] [facility] [address] [id number] [place] [address] Apr, 2014 [facility] [place] [facility] [address] [facility] [id number] [place] [address] Apr, 2014 [facility] [place] [facility] [address] [facility] [id number] [place] [address] Apr, 2014 [facility] [place] [facility] [address] [facility] [id number] [place] [address] Apr, 2014 [facility] [place] [facility] [address] [facility] [id number] [place] [address] Apr, 2014 [facility] [place] [facility] [address] [facility] [id number] [place] [address] Apr, 2014 [facility] [place] [facility] [address] [facility] [id number] [place] [address] Mar, [facility] [place] [facility] [address] [id number] [place] [address] 30 Mar, 2014 [facility] [place] [facility] [address] [id number] [place] [address] Mar, [facility] [place] [facility] [address] [id number] [place] [address] 23 Mar, 2014 [facility] [place] [facility] [address] [id number] [place] [address] 15 Mar, 2014 [facility] [place] [facility] [address] [id number] [place] [address] 15 Mar, 2014 [facility] [place] [facility] [address] [id number] [place] [address] 15 Mar, 2014 [facility] [place] [facility] [address] [id number] [place] [address] 15 Mar, 2014 [facility] [place] [facility] [address] [id number] [place] [address] 15 Mar, 2014 [facility] [place] [facility] [address] [address] [id number] [place] [address] 15 Mar, 2014 [facility] [place] [facility] [address] [id number] [place] [address] 14 Mar, 2014 [facility] [place] [facility] [address] [id number] [place] [address] 14 Mar, 2014 [facility] [place] [facility] [address] [id number] [place] [address] 14 Mar, 2014 [facility] [place] [facility] [address] [id number] [place] [address] 14 Mar, 2014 [facility] [place] [facility] [address] [id number] [place] [address] 14 Mar, 2014 [facility] [place] [facility] [address] [id number] [place] [address] 14 Mar, 2014 [facility] [place] [facility] [address] [id number] [place] [address] Mar, [facility] [place] [facility] [address] [id number] [place] [address] Mar, [facility] [place] [facility] [address] [id number] [place] [address] Feb, [facility] [place] [facility] [address] [id number] [place] [address] Feb, [facility] [place] [facility] [address] [id number] [place] [address] Feb, [facility] [place] [facility] [address] [id number] [place] [address] Feb, [facility] [place] [facility] [address] [id number] [place] [address] Feb, [facility] [place] [facility] [address] [id number] [place] [address] Feb, [facility] [place] [facility] [address] [id number] [place] [address] Jan, [facility] [place] [facility] [address] [id number] [place] [address] Jan, [facility] [place] [facility] [address] [id number] [place] [address] Jan, [facility] [place] [facility] [address] [id number] [place] [address] Jan, [facility] [place] [facility] [address] [id number] [place] [address] Jan, [facility] [place] [facility] [address] [id number] [place] [address] Jan, [facility] [place] [facility] [address] [id number] [place] [address] Jan, [facility] [place] [facility] [address] [id number] [place] [address] Jan, [facility] [place] [facility] [address] [id number] [place] [address] Jan, [facility] [place] [facility] [address] [id number] [place] [address] Jan, [facility] [place] [facility] [address] [id number] [place] [address] Dec, [facility] [place] [facility] [address] [id number] [place] [address] Dec, [facility] [place] [facility] [address] [id number] [place] [address] Dec, [facility] [place] [facility] [address] [id number] [place] [address] Dec, [facility] [place] [facility] [address] [id number] [place] [address] 16 Nov, 2013 [facility] [place] [facility] [address] [id number] [place] [address] 16 Nov, 2013 [facility] [place] [facility] [address] [id number] [place] [address] Nov, 2013 [facility] [place] [facility] [address] [id number] [place] [address] Nov, 2013 [facility] [place] [facility] [address] [id number] [place] [address] Nov, 2013 [facility] [place] [facility] [address] [id number] [place] [address] Nov, 2013 [facility] [place] [facility] [address] [id number] [place] [address] Oct, [facility] [place] [facility] [address] [id number] [place] [address] Oct, [facility] [place] [facility] [address] [id number] [place] [address] Oct, [facility] [place] [facility] [address] [id number] [place] [address] Oct, [facility] [place] [facility] [address] [id number] [place] [address] Sep, [facility] [place] [facility] [address] [id number] [place] [address] Sep, [facility] [place] [facility] [address] [id number] [place] [address] Sep, [facility] [place] [facility] [address] [id number] [place] [address] Sep, [facility] [place] [facility] [address] [id number] [place] [address] Sep, [facility] [place] [facility] [address] [id number] [place] [address] Sep, [facility] [place] [facility] [address] [id number] [place] [address] July, [facility] [place] [facility] [address] [id number] [place] [address] July, [facility] [place] [facility] [address] [id number] [place] [address] July, [facility] [place] [facility] [address] [id number] [place] [address] July, [facility] [place] [facility] [address] [id number] [place] [address] Jun, [facility] [place] [facility] [address] [id number] [place] [address] Jun, [facility] [place] [facility] [address] [id number] [place] [address] Jun, [facility] [place] [facility] [address] [id number] [place] [address] Jun, [facility] [place] [facility] [address] [id number] [place] [address] Jun, [facility] [place] [facility] [address] [id number] [place] [address] Jun, [facility] [place] [facility] [address] [id number] [place] [address] May, [facility] [place] [facility] [address] [id number] [place] [address] May, [facility] [place] [facility] [address] [id number] [place] [address] Apr, [facility] [place] [facility] [address] [id number] [place] [address] Apr, [facility] [place] [facility] [address] [id number] [place] [address] Apr, [facility] [place] [facility] [address] [id number] [place] [address] Apr, [facility] [place] [facility] [address] [id number] [place] [address] Apr, [facility] [place] [facility] [address] [id number] [place] [address] Apr, [facility] [place] [facility] [address] [id number] [place] [address] Apr, [facility] [place] [facility] [address] [facility] [id number] [place] [address] Mar, [facility] [place] [facility] [address] [id number] [place] [address] Mar, [facility] [place] [facility] [address] [id number] [place] [address] Mar, [facility] [place] [facility] [address] [id number] [place] [address] Mar, [facility] [place] [facility] [address] [id number] [place] [address] Mar, [facility] [place] [facility] [address] [id number] [place] [address] Mar, [facility] [place] [facility] [address] [id number] [place] [address] Mar, [facility] [address] [id number] [place] [address] Mar, [facility] [address] [id number] [place] [address] Feb, [facility] [address] [id number] [place] [address] Feb, [facility] [address] [id number] [place] [address] Feb, [facility] [address] [id number] [place] [address] Feb, [facility] [address] [id number] [place] [address] Feb, [facility] [address] [id number] [place] [address] Feb, [facility] [address] [id number] [place] [address] Feb, [facility] [address] [id number] [place] [address] Jan, [facility] [address] [id number] [place] [address] Jan, [facility] [address] [id number] [place] [address] Jan, [facility] [address] [id number] [place] [address] Jan, [facility] [place] [facility] [address] [id number] [place] [address] Jan, [facility] [address] [id number] [place] [address] Jan, [facility] [address] [id number] [address] Jan, [facility] [place] [facility] [address] [id number] [place] [address] Jan, [facility] [place] [facility] [address] [id number] [place] [address] Dec, [facility] [place] [facility] [address] [id number] [place] [address] Dec, [facility] [place] [facility] [address] [id number] [place] [address] Dec, [facility] [place] [facility] [address] [id number] [place] [address] Dec, [facility] [place] [facility] [address] [id number] [place] [address] Dec, [facility] [place] [facility] [address] [id number] [place] [address] Dec, [facility] [place] [facility] [address] [id number] [place] [address] Dec, [facility] [place] [facility] [address] [id number] [place] [address] Dec, [facility] [place] [facility] [address] [id number] [place] [address] Dec, [facility] [place] [facility] [address] [id number] [place] [address] Dec, [facility] [place] [facility] [address] [id number] [place] [address] Nov, [facility] [place] [facility] [address] [id number] [place] [id number] Nov, [facility] [place] [facility] [address] [id number] [place] [address] 24 Nov, 2012 [facility] [place] [facility] [address] [id number] [place] [address] 20 Nov, 2012 [facility] [place] [facility] [address] [id number] [place] [address] Nov, [facility] [address] [id number] [place] [address] 13 Nov, 2012 [facility] [place] [facility] [address] [id number] [place] [address] 10 Nov, 2012 [facility] [place] [facility] [address] [id number] [place] [address] Nov, [facility] [place] [facility] [address] [id number] [place] [address] Oct, [facility] [place] [facility] [address] [id number] [place] [address] Oct, [facility] [place] [facility] [address] [id number] [place] [address] Oct, [facility] [address] [id number] [place] [address] Sep, [facility] [place] [facility] [address] [id number] [place] [address] Sep, [facility] [place] [facility] [address] [id number] [place] [address] Sep, [facility] [place] [facility] [address] [id number] [place] [address] Sep, [facility] [place] [facility] [address] [id number] [place] [address] Sep, [facility] [place] [facility] [address] [id number] [place] [address] Aug, [facility] [place] [facility] [address] [id number] [place] [address] Aug, [facility] [place] [facility] [address] [id number] [place] [address] Aug, [facility] [place] [facility] [address] [id number] [place] [address] Aug, [facility] [place] [facility] [address] [id number] [place] [address] Aug, [facility] [address] [id number] [place] [address] Aug, [facility] [address] [id number] [place] [address] July, [facility] [address] [id number] [place] [address] July, [facility] [address] [id number] [place] [address] July, [facility] [address] [id number] [place] [address] July, [facility] [address] [id number] [place] [address] July, [facility] [address] [id number] [place] [address] July, [facility] [address] [id number] [place] [address] Jun, [facility] [address] [id number] [place] [address] Jun, [facility] [address] [id number] [place] [address] Jun, [facility] [address] [id number] [place] [address] Jun, [facility] [address] [id number] [place] [address] May, [facility] [place] [facility] [address] [id number] [place] [address] May, [facility] [place] [facility] [address] [id number] [place] [address] May, [facility] [place] [facility] [address] [id number] [place] [address] Apr, [facility] [place] [facility] [address] [id number] [place] [address] Mar, [facility] [place] [facility] [address] [id number] [place] [address] 18 Mar, 2012 [facility] [place] [facility] [address] [facility] [id number] [place] [address] 17 Mar, 2012 [facility] [place] [facility] [address] [id number] [place] [address] 16 Mar, 2012 [facility] [place] [facility] [address] [id number] [place] [address] Mar, [facility] [place] [facility] [address] [facility] [id number] [place] [address] Feb, [facility] [place] [facility] [address] [id number] [place] [address] Feb, [facility] [place] [facility] [address] [id number] [place] [address] Feb, [facility] [place] [facility] [address] [id number] [place] [address] Feb, [facility] [place] [facility] [address] [facility] [id number] [place] [address] Jan, [facility] [place] [facility] [address] [id number] [place] [address] Jan, [facility] [place] [facility] [address] [id number] [place] [address] Jan, [facility] [place] [facility] [address] [id number] [place] [address] Jan, [facility] [place] [facility] [address] [facility] [id number] [place] [address] Dec, [facility] [place] [facility] [address] [facility] [id number] [place] [address] Dec, [facility] [place] [facility] [address] [id number] [place] [address] Nov, [facility] [address] [id number] [place] [address] Oct, [facility] [address] [id number] [place] [address] Oct, [facility] [address] [id number] [place] [address] Oct, [facility] [address] [id number] [place] [address] Oct, [facility] [address] [id number] [place] [address] Oct, [facility] [address] [id number] [place] [address] Sep, [facility] [address] [id number] [place] [address] Sep, [facility] [address] [id number] [place] [address] Aug, [facility] [address] [place] [id number] Aug, [facility] [address] [id number] [place] [address] Aug, [facility] [address] [id number] [place] [address] July, [facility] [address] [id number] [place] [address] July, [facility] [address] [id number] [place] [address] Jun, [facility] [address] [id number] [place] [address] Jun, [facility] [address] [id number] [place] [address] Jun, [facility] [address] [id number] [place] [address] 13 Jun, 2011 [facility] [address] [id number] [place] [address] 15 Apr, 2011 [facility] [place] [facility] [address] [id number] [place] [address] 15 Apr, 2011 [facility] [place] [facility] [address] [id number] [place] [address] 10 Apr, 2011 [facility] [place] [facility] [address] [id number] [place] [address] Mar, [facility] [place] [facility] [address] [id number] [place] [address] Mar, [facility] [address] [id number] [place] [address] Mar, [facility] [address] [id number] [place] [address] Mar, [facility] [address] [id number] [place] [address] Mar, [facility] [place] [facility] [address] [id number] [place] [address] Jan, [facility] [address] [id number] [place] [address] Jan, [facility] [place] [facility] [address] [id number] [place] [address] Jan, [facility] [place] [facility] [address] [id number] [place] [address] Mar, [facility] [place] [facility] [address] [id number] [place] [address] Mar, [facility] [place] [facility] [address] [id number] [place] [address] Feb, [facility] [place] [facility] [address] [id number] [place] [address] Feb, [facility] [address] [facility] [id number] [place] [address] 16 Feb, 2010 [facility] [address] [facility] [id number] [place] [address] Jan, [facility] [id number] [address] Jan, [facility] [address] [facility] [id number] [place] [address] Dec, [facility] [address] [facility] [id number] [place] [address] Dec, [facility] [id number] [place] [address] May, [facility] [id number] [address] Apr, [facility] [id number] [address] Feb, [facility] [id number] [address] Feb, [facility] [id number] [address] Jan, [facility] [id number] [address] Jan, [facility] [id number] [address] Jan, [facility] [address] [address] Jan, [facility] [address] [address] Jan, IMMUNIZATIONS No Known Immunizations SOCIAL HISTORY Never Assessed REASON FOR VISIT klonopin refill PLAN OF CARE VITAL SIGNS MEDICATIONS Medication Instructions Dosage Frequency Start Date End Date Duration Status Klonopin 0.5 MG Orally at night for sleep 1 tablet 30 days Active RESULTS No Results PROCEDURES No [...]
--- OUTSIDE RECORDS SUMMARY | 2018-10-04 06:49 | XMS REPORT ---
Author Author PARI ORTEGA Organization [employer] Address Unknown Phone Unavailable Care Team Providers Care Service Tech Name Role Phone PARI ORTEGA CP Unavailable Allergies No Known Allergies Problems Problem Type Condition Code Onset Dates Condition Status Problem Gastroesophageal reflux disease, esophagitis presence not specified K21.9 Active Problem Chronic pain syndrome G89.4 Active Problem PTSD (post-traumatic stress disorder) F43.10 Active Problem Severe major depression with psychotic features F32.3 Active Problem Acute right-sided low back pain with right-sided sciatica M54.41 Active Problem Posttraumatic stress disorder F43.10 Active Problem Major depressive disorder, recurrent episode, unspecified severity F33.9 Active Problem Chronic obstructive pulmonary disease, unspecified COPD type J44.9 Active Problem Chronic prescription opiate use Z79.891 Active Problem Type 2 diabetes mellitus with diabetic polyneuropathy E11.42 Active Problem Nocturnal hypoxia G47.34 Active Problem Pure hypercholesterolemia E78.0 Active Problem MITCHELL treated with BiPAP G47.33 Active Problem Chronic systolic (congestive) heart failure I50.22 Active Problem Essential hypertension I10 Active Problem Non-ischemic cardiomyopathy I42.9 Active Problem History of weight loss surgery Z98.84 Active Problem History of DVT (deep vein thrombosis) Z86.718 Active Medications Medication Code System Code Instructions Start Date End Date Status Dosage Mirtazapine [facility] [address]-24 30 MG Orally Once a day June 25, 2015 1 tablet before bedtime in the evening HydrOXYzine Pamoate [facility] [address]-81 25 MG Orally every 6 hrs May 07, 2015 1 capsule as needed Klonopin [facility] 18388853414 1 MG TAKE ONE TABLET BY MOUTH TWICE DAILY Prozac [facility] 55912546693 40 MG Orally Once a day 1 capsule in the morning Invega [facility] 58869384023 6 MG Orally Once a day 2 tablets Results No Known Results Summary Purpose [employer] Submission
--- OUTSIDE RECORDS SUMMARY | 2018-10-04 06:49 | XMS REPORT ---
Author Author KISHA CHAVIS [facility] Address [address] [place] [address] Care Team Providers Care Professor Of Spanish Name Role Phone PALMIRA KISHA Unavailable PROBLEMS Type Condition ICD9-CM Code DOH51-YL Code Onset Dates Condition Status SNOMED Code Problem MITCHELL treated with BiPAP G47.33 Active 38200688 Problem Acute right-sided low back pain with right-sided sciatica M54.41 Active 16126926 Problem Chronic prescription opiate use Z79.891 Active 559758441 Problem BMI 45.0-49.9, adult Z68.42 Active 597712918 Problem Gastroesophageal reflux disease, esophagitis presence not specified K21.9 Active 745664346 Problem Macrocytosis D75.89 Active 657378627 Problem Major depressive disorder, recurrent episode, unspecified severity F33.9 Active 62666503 Problem Primary osteoarthritis of both knees M17.0 Active 918521532 Problem Severe major depression with psychotic features F32.3 Active 74493528 Problem Posttraumatic stress disorder F43.10 Active 57745796 Problem Tobacco abuse Z72.0 Active 364035256 Problem Obesity, morbid, BMI 40.0-49.9 E66.01 Active 885041612 Problem History of weight loss surgery Z98.84 Active 728715622 Problem PTSD (post-traumatic stress disorder) F43.10 Active 29178277 Problem Non-ischemic cardiomyopathy I42.9 Active 98421232 Problem Chronic obstructive pulmonary disease, unspecified COPD type J44.9 Active 73637599 Problem Pure hypercholesterolemia E78.0 Active 582674998 Problem Type 2 diabetes mellitus with diabetic polyneuropathy E11.42 Active 479916073 Problem Chronic systolic (congestive) heart failure I50.22 Active 096972866 Problem History of DVT (deep vein thrombosis) Z86.718 Active 120767575 Problem Nocturnal hypoxia G47.34 Active 058261919 Problem Chronic pain syndrome G89.4 Active 549183294 Problem Essential hypertension I10 Active 69719154 ALLERGIES Unknown Allergies SOCIAL HISTORY No smoking Hx information available PLAN OF CARE VITAL SIGNS MEDICATIONS Medication Instructions Dosage Frequency Start Date End Date Duration Status MS Contin 30 MG Orally Once a day in the evening- appt needed before due for next refill 1 tablet Mar, 28 days Active MS Contin 15 MG Orally Once a day in the am- appt needed before due for next refill 1 tablet Mar, 28 days Active RESULTS No Results PROCEDURES No Known procedures IMMUNIZATIONS No Known Immunizations
--- OUTSIDE RECORDS SUMMARY | 2018-10-04 06:49 | XMS REPORT ---
Author Author PARI ORTEGA Organization [facility] Address Unknown Care Team Providers Care Bank Guard Name Role Phone PARI ORTEGA Unavailable PROBLEMS Type Condition ICD9-CM Code [id number] Code Onset Dates Condition Status SNOMED Code Problem MITCHELL treated with BiPAP G47.33 Active 90831821 Problem Acute right-sided low back pain with right-sided sciatica M54.41 Active 04807419 Problem Chronic prescription opiate use Z79.891 Active 953874814 Problem BMI 45.0-49.9, adult Z68.42 Active 810462311 Problem Gastroesophageal reflux disease, esophagitis presence not specified K21.9 Active 268931088 Problem Macrocytosis D75.89 Active 508842209 Problem Major depressive disorder, recurrent episode, unspecified severity F33.9 Active 25924153 Problem Primary osteoarthritis of both knees M17.0 Active 447712228 Problem Severe major depression with psychotic features F32.3 Active 41829446 Problem Posttraumatic stress disorder F43.10 Active 17631328 Problem Tobacco abuse Z72.0 Active 236404493 Problem Obesity, morbid, BMI 40.0-49.9 E66.01 Active 577802132 Problem History of weight loss surgery Z98.84 Active 899094820 Problem PTSD (post-traumatic stress disorder) F43.10 Active 60093590 Problem Non-ischemic cardiomyopathy I42.9 Active 59599476 Problem Chronic obstructive pulmonary disease, unspecified COPD type J44.9 Active 89082415 Problem Pure hypercholesterolemia E78.0 Active 862724203 Problem Type 2 diabetes mellitus with diabetic polyneuropathy E11.42 Active 678905527 Problem Chronic systolic (congestive) heart failure I50.22 Active 391671545 Problem History of DVT (deep vein thrombosis) Z86.718 Active 247919663 Problem Nocturnal hypoxia G47.34 Active 165201951 Problem Chronic pain syndrome G89.4 Active 316174334 Problem Essential hypertension I10 Active 56486576 ALLERGIES Unknown Allergies SOCIAL HISTORY No smoking Hx information available PLAN OF CARE VITAL SIGNS MEDICATIONS Medication Instructions Dosage Frequency Start Date End Date Duration Status Klonopin 1 MG TAKE ONE TABLET BY MOUTH TWICE DAILY 30 days Active RESULTS No Results PROCEDURES No Known procedures IMMUNIZATIONS No Known Immunizations
--- OUTSIDE RECORDS SUMMARY | 2018-10-04 06:49 | XMS REPORT ---
Author Author GAIL TORRES Organization [facility] Address [address] [place] [address] Care Team Providers Care Charge Account Identification Clerk Name Role Phone TORRESGAIL Pérez Unavailable PROBLEMS Type Condition ICD9-CM Code [id number] Code Onset Dates Condition Status SNOMED Code Problem Primary osteoarthritis of both knees M17.0 Active 875519013 Problem Nocturnal hypoxia G47.34 Active 178378426 Problem Chronic prescription opiate use Z79.891 Active 391996402 Problem Pure hypercholesterolemia E78.0 Active 976479363 Problem Acute right-sided low back pain with right-sided sciatica M54.41 Active 07070346 Problem Type 2 diabetes mellitus with diabetic polyneuropathy E11.42 Active 755136715 Problem Severe major depression with psychotic features F32.3 Active 17364402 Problem Obesity, morbid, BMI 40.0-49.9 E66.01 Active 060650663 Problem Posttraumatic stress disorder F43.10 Active 25127280 Problem Primary insomnia F51.01 Active 0494990 Problem Mood disorder F39 Active 68677008 Problem History of DVT (deep vein thrombosis) Z86.718 Active 635071294 Problem Chronic pain syndrome G89.4 Active 594681724 Problem Chronic systolic (congestive) heart failure I50.22 Active 962845870 Problem Macrocytosis D75.89 Active 429504225 Problem Tobacco abuse Z72.0 Active 848041701 Problem Mild episode of recurrent major depressive disorder F33.0 Active 768921696 Problem BMI 45.0-49.9, adult Z68.42 Active 131738093 Problem Gastroesophageal reflux disease, esophagitis presence not specified K21.9 Active 779850268 Problem Non-ischemic cardiomyopathy I42.9 Active 31706499 Problem Essential hypertension I10 Active 98044780 Problem Major depressive disorder, recurrent episode, unspecified severity F33.9 Active 83635378 Problem PTSD (post-traumatic stress disorder) F43.10 Active 93810315 Problem MITCHELL treated with BiPAP G47.33 Active 83269218 Problem Chronic obstructive pulmonary disease, unspecified COPD type J44.9 Active 56276741 Problem History of weight loss surgery Z98.84 Active 081016829 ALLERGIES No Information ENCOUNTERS Encounter Location Date Diagnosis [place] [id number] [place] [address] Sep, [place] [address] [place] [id number] [place] [address] July, Primary osteoarthritis of both knees M17.0 and Chronic pain syndrome G89.4 [place] [address] [place] [id number] [place] [address] July, Type 2 diabetes mellitus with diabetic polyneuropathy E11.42 ; Essential hypertension I10 ; Pure hypercholesterolemia E78.0 ; Chronic prescription opiate use Z79.891 ; Tobacco abuse Z72.0 ; Primary osteoarthritis of both knees M17.0 ; Primary insomnia F51.01 and BMI 45.0-49.9, adult Z68.42 [place] [address] [place] [id number] [place] [address] 08 Jul, 2017 Medicare annual wellness visit, [...] specified K21.9 and Encounter for immunization Z23 [place] [id number] [place] [address] July, Primary osteoarthritis of both knees M17.0 and Chronic pain syndrome G89.4 [facility] [address] [id number] [place] [address] Jun, Infection of right ear H66.91 ; Wheezing on auscultation R06.2 and BMI 45.0-49.9, adult Z68.42 [place] [address], [place] [address] Jun, [facility] [id number] [place] [address] Jun, Primary osteoarthritis of both knees M17.0 and Chronic pain syndrome G89.4 [facility] [address], [place] [address] May, [facility] [address] [place] [id number] [place] [address] May, BMI 45.0-49.9, adult Z68.42 ; Mood disorder F39 and Posttraumatic stress disorder F43.10 [facility] [id number] [place] [address] May, [facility] [address] [address] [id number] [place] [address] May, Primary osteoarthritis of both knees M17.0 and Chronic pain syndrome G89.4 [facility] [id number] [place] [address] May, Mood disorder F39 [facility] [address] [address] [id number] [place] [address] 07 Apr, 2017 Type 2 diabetes mellitus with diabetic polyneuropathy E11.42 [facility] [address], [place] [address] Apr, [facility] [address], [place] [address] Apr, Primary osteoarthritis of both knees M17.0 and Chronic pain syndrome G89.4 [facility] [id number] [place] [address] Apr, Mood disorder F39 [facility] [address], [place] [address] Mar, Mood disorder F39 and Posttraumatic stress disorder F43.10 [facility] [address] [id number] [place] [address] Mar, Primary osteoarthritis of both knees M17.0 and Chronic pain syndrome G89.4 [facility] [address] [id number] [place] [address] Feb, Primary osteoarthritis of both knees M17.0 and Chronic pain syndrome G89.4 [facility] [address] [address] [id number] [place] [address] Feb, Mood disorder F39 [place] [address] [place] [id number] [place] [address] Jan, Type 2 diabetes mellitus with diabetic polyneuropathy E11.42 ; Primary osteoarthritis of both knees M17.0 ; Mood disorder F39 ; Obesity, morbid, BMI 40.0-49.9 E66.01 ; Chronic prescription opiate use Z79.891 ; Acute suppurative otitis media of both ears without spontaneous rupture of tympanic membranes, recurrence not specified H66.003 and BMI 45.0-49.9, adult Z68.42 [place] [address] [place] [id number] [place] [address] Jan, Primary osteoarthritis of both knees M17.0 and Chronic pain syndrome G89.4 [place] [address] [place] [id number] [place] [address] Dec, Mood disorder F39 and Posttraumatic stress disorder F43.10 [place] [address] [place] [id number] [place] [address] Dec, Primary osteoarthritis of both knees M17.0 and Chronic pain syndrome G89.4 [facility] [address] [place] [id number] [place] [address] 18 Nov, 2016 Chronic pain syndrome G89.4 [facility] [address] [place] [id number] [place] [address] 15 Nov, 2016 Primary osteoarthritis of both knees M17.0 and Chronic pain syndrome G89.4 [place] [address] [place] [id number] [place] [address] 13 Nov, 2016 Type 2 diabetes mellitus with diabetic polyneuropathy E11.42 and Chronic pain syndrome G89.4 [facility] [address] [place] [id number] [place] [address] 12 Nov, 2016 Posttraumatic stress disorder F43.10 and Mood disorder F39 [facility] [address] [place] [id number] [place] [address] Oct, Chronic pain syndrome G89.4 [facility] [address] [place] [id number] [place] [address] Oct, Type 2 diabetes mellitus with diabetic polyneuropathy E11.42 ; BMI 45.0-49.9, adult Z68.42 ; Primary osteoarthritis of both knees M17.0 and Skin lesion L98.9 [facility] [address] [place] [id number] [place] [address] Oct, Chronic pain syndrome G89.4 [facility] [address] [place] [id number] [place] [address] Sep, Chronic pain syndrome G89.4 [facility] [address] [place] [id number] [place] [address] Sep, [facility] [address] [place] [id number] [place] [address] Sep, Chronic pain syndrome G89.4 [facility] [address] [place] [id number] [place] [address] Aug, Chronic pain syndrome G89.4 [facility] [address] [place] [id number] [place] [address] Aug, [facility] [address] [place] [id number] [place] [address] Aug, Macrocytosis D75.89 and Pure hypercholesterolemia E78.0 [facility] [address] [place] [id number] [place] [address] Aug, Pure hypercholesterolemia E78.0 [place] [address] [place] [id number] [address] Aug, Macrocytosis D75.89 [facility] [address] [place] [id number] [place] [address] Aug, Pure hypercholesterolemia E78.0 ; Type 2 diabetes mellitus with diabetic polyneuropathy E11.42 ; MITCHELL treated with BiPAP G47.33 and Chronic pain syndrome G89.4 [facility] [address] [place] [id number] [place] [address] Aug, [place] [address] [place] [id number] [place] [address] Aug, Hemorrhoids, unspecified hemorrhoid type K64.9 [facility] [address] [place] [id number] [place] [address] Aug, Chronic pain syndrome G89.4 ; Type 2 diabetes mellitus with diabetic polyneuropathy E11.42 ; Hemorrhoids, unspecified hemorrhoid type K64.9 ; Tobacco abuse Z72.0 and Primary osteoarthritis of both knees M17.0 [facility] [address] [place] [id number] [place] [address] July, Chronic pain syndrome G89.4 [facility] [address] [place] [id number] [place] [address] July, [place] [id number] [place] [address] Jun, Chronic pain syndrome G89.4 [facility] [address] [place] [id number] [place] [address] Jun, Chronic pain syndrome G89.4 [facility] [address] [place] [id number] [place] [address] Jun, Severe major depression with psychotic features F32.3 and Posttraumatic stress disorder F43.10 [facility] [address] [place] [id number] [place] [address] Jun, Chronic pain syndrome G89.4 [facility] [address], [place] [address] Jun, [facility] [address] [place] [id number] [place] [address] May, Chronic pain syndrome G89.4 [facility] [id number] [place] [address] May, Tobacco abuse Z72.0 [facility] [address] [place] [id number] [place] [address] May, [facility] [address] [place] [id number] [place] [address] Apr, Chronic pain syndrome G89.4 [facility] [address] [place] [id number] [place] [address] Apr, [facility] [address] [place] [id number] [place] [address] Apr, Right foot pain M79.671 [facility] [address] [place] [address] Mar, Type 2 diabetes mellitus with diabetic polyneuropathy E11.42 ; MITCHELL treated with BiPAP G47.33 ; Pure hypercholesterolemia E78.0 ; Chronic pain syndrome G89.4 ; Tobacco abuse Z72.0 and Obesity, morbid, BMI 40.0-49.9 E66.01 [facility] [address], [place] [address] Mar, [facility] [address], [place] [address] Mar, [facility] [address] [place] [id number] [place] [address] Mar, [facility] [address], [place] [address] Mar, [facility] [id number] [place] [address] Mar, [facility] [address], [place] [address] Mar, Severe major depression with psychotic features F32.3 and Posttraumatic stress disorder F43.10 [facility] [address], [place] [address] Mar, [facility] [address], [place] [address] Feb, [facility] [address] [place] [id number] [address] Feb, [facility] [address] [place] [id number] [place] [address] Jan, [facility] [address], [place] [address] Jan, [facility] [address] [place] [address] Dec, Posttraumatic stress disorder F43.10 and Severe major depression with psychotic features F32.3 [facility] [address], [place] [address] Dec, Type 2 diabetes mellitus with diabetic polyneuropathy E11.42 ; Chronic pain syndrome G89.4 and Acute right-sided low back pain with right-sided sciatica M54.41 [facility] [address], [place] [address] Dec, [facility] [address], [place] [address] Dec, [facility] [address], [place] [address] Nov, [facility] [address], [place] [address] Nov, [facility] [address], [place] [address] Nov, [facility] [address], [place] [address] Oct, [facility] [address] [place] [id number] [place] [address] Oct, [facility] [id number] [place] [address] Sep, Dental examination Z01.20 [facility] [address] [place] [id number] [place] [address] Sep, [facility] [address] [address] [id number] [place] [address] Sep, Type 2 diabetes mellitus with diabetic polyneuropathy E11.42 ; Chronic pain syndrome G89.4 ; Chronic prescription opiate use Z79.891 ; Injury of right index finger, sequela S69.91XS and Anejaculation N50.8 [facility] [address] [place] [id number] [place] [address] Aug, [facility] [address] [id number] [place] [address] Aug, [facility] [address] [place] [id number] [place] [address] Aug, Cellulitis of finger of right hand L03.011 [facility] [address], [place] [address] July, [facility] [address] [id number] [place] [address] July, [facility] [id number] [place] [address] Jun, Onychomycosis B35.1 [facility] [address] [place] [address] Jun, Severe major depression with psychotic features F32.3 and Posttraumatic stress disorder F43.10 [facility] [address] [place] [id number] [place] [address] Jun, [facility] [address], [place] [address] Jun, [facility] [address] [place] [id number] [place] [address] Jun, [facility] [address] [place] [id number] [place] [address] May, Type 2 diabetes mellitus with diabetic polyneuropathy E11.42 [place] [address] [place] [id number] [place] [address] May, Type 2 diabetes mellitus with diabetic polyneuropathy E11.42 and Urinary hesitancy R39.11 [place] [address] [place] [id number] [place] [address] May, Type 2 diabetes mellitus with diabetic polyneuropathy E11.42 ; Left hip pain M25.552 and Benign prostatic hyperplasia with lower urinary tract symptoms, unspecified morphology N40.1 [place] [address] [place] [address] May, [place] [address] [place] [id number] [place] [address] Apr, Severe major depression with psychotic features F32.3 and Posttraumatic stress disorder F43.10 [place] [address], [place] [address] Apr, [place] [address], [place] [address] Mar, [facility] [address] [place] [address] Mar, Dysuria R30.0 and Urinary hesitancy R39.11 [facility] [address], [place] [address] Mar, Onychomycosis B35.1 [place] [address] [place] [id number] [place] [address] Mar, [facility] [address], [place] [address] Feb, [facility] [address] [place] [address] Jan, [facility] [address], [place] [address] Jan, Posttraumatic stress disorder F43.10 and Severe major depression with psychotic features F32.3 [facility] [address], [place] [address] Jan, [facility] [address] [id number] [place] [address] Jan, Chronic pain syndrome G89.4 ; Type 2 diabetes mellitus with diabetic polyneuropathy E11.42 ; Decreased pedal pulses R09.89 and Paresthesia of both hands R20.2 [facility] [address] [place] [address] Dec, Posttraumatic stress disorder F43.10 and Severe major depression with psychotic features F32.3 [facility] [address], [place] [address] Dec, [facility] [address], [place] [address] Dec, [facility] [address], [place] [address] Dec, Onychomycosis B35.1 [facility] [address], [place] [address] Dec, [facility] [address], [place] [address] Dec, [facility] [address], [place] [address] Nov, [facility] [address], [place] [address] Oct, Depression, major, recurrent, moderate 296.32 and Posttraumatic stress disorder 309.81 [place] [address] [place] [address] Oct, [place] [address] [id number] [place] [address] Oct, [place] [address] [address] [id number] [place] [address] Oct, [place] [address] [address] [id number] [place] [address] Sep, Posttraumatic stress disorder 309.81 and Depression, major, recurrent, moderate 296.32 [place] [id number] [place] [address] Sep, [place] [id number] [place] [address] Sep, Chronic airway obstruction, not elsewhere classified [address] [place] [id number] [place] [address] Sep, Onychomycosis 110.1 and DM neuro manif type II 250.60 [place] [id number] [place] [address] Sep, Chronic pain 338.29 ; Chronic airway obstruction, not elsewhere classified 496 ; Osteoarthritis of knees, bilateral 715.96 and On potassium wasting diuretic therapy V58.69 [place] [id number] [place] [address] Sep, Insect bites 919.4 ; Sinusitis 473.9 and GERD (gastroesophageal reflux disease) 530.81 [place] [id number] [place] [address] Aug, Depression, major, recurrent, moderate 296.32 and Posttraumatic stress disorder 309.81 [place] [id number] [place] [address] Aug, [address] [address] Aug, [facility] [address] [facility] [id number], [place] [address] Aug, [facility] [address] [facility] [id number] [place] [address] July, Major depressive disorder, recurrent episode, moderate 296.32 and Posttraumatic stress disorder 309.81 [facility] [address] [facility] [id number], [place] [address] July, [facility] [address] [facility] [id number] [place] [address] July, [facility] [address] [facility] [id number], [place] [address] July, [facility] [id number], [place] [address] July, [facility] [address] [facility] [id number], [place] [address] Jun, [facility] [address] [facility] [id number] [place] [address] Jun, [facility] [address] [facility] [id number], [place] [address] May, [facility] [id number], [place] [address] May, [facility] [place] [facility] [address] [facility] [id number], [place] [address] May, [facility] [place] [facility] [address] [facility] [id number] [place] [address] May, [facility] [place] [facility] [address] [facility] [id number], [place] [address] May, [facility] [place] [facility] [address] [facility] [id number], [place] [address] May, [facility] [address] [facility] [id number] [place] [address] May, [facility] [place] [facility] [address] [id number] [place] [address] May, [facility] [place] [facility] [address] [id number] [place] [address] May, [facility] [place] [facility] [address] [id number] [place] [address] Apr, 2014 [facility] [place] [facility] [address] [id number] [place] [address] Apr, 2014 [facility] [place] [facility] [address] [id number] [place] [address] Apr, 2014 [facility] [place] [facility] [address] [id number] [place] [address] Apr, 2014 [facility] [place] [facility] [address] [id number] [place] [address] Apr, [facility] [place] [facility] [address] [id number] [place] [address] Apr, [facility] [place] [facility] [address] [id number] [place] [address] Apr, [facility] [place] [facility] [address] [facility] [id number] [place] [address] Apr, [facility] [place] [facility] [address] [id number] [place] [address] Apr, [facility] [place] [facility] [address] [id number] [place] [address] Mar, [facility] [place] [facility] [address] [id number] [place] [address] Mar, [facility] [place] [facility] [address] [id number] [place] [address] Mar, [facility] [place] [facility] [address] [id number], [place] [address] Mar, [facility] [place] [facility] [address] [id number] [place] [address] 15 Mar, 2014 [facility] [place] [facility] [address] [id number] [place] [address] 15 Mar, 2014 [facility] [place] [facility] [address] [id number] [place] [address] 15 Mar, 2014 [facility] [place] [facility] [address] [id number] [place] [address] 15 Mar, 2014 [facility] [place] [facility] [address] [id number] [place] [address] 15 Mar, 2014 [facility] [place] [facility] [address] [id number] [place] [address] 15 Mar, 2014 [facility] [place] [facility] [address] [id number] [place] [address] 14 Mar, 2014 [facility] [place] [facility] [address] [id number] [place] [address] 14 Mar, 2014 [facility] [place] [facility] [address] [id number] [place] [address] 14 Mar, 2014 [facility] [place] [facility] [address] [id number] [place] [address] 14 Mar, 2014 [facility] [place] [facility] [address] [id number], [place] [address] 14 Mar, 2014 [facility] [place] [facility] [address] [id number], [place] [address] 14 Mar, 2014 [facility] [place] [facility] [address] [id number] [place] [address] 09 Mar, 2014 [facility] [place] [facility] [address] [id number] [place] [address] 09 Mar, 2014 [facility] [place] [facility] [address] [id number] [place] [address] 16 Feb, 2014 [facility] [place] [facility] [address] [id number] [place] [address] 16 Feb, 2014 [facility] [place] [facility] [address] [id number] [place] [address] 15 Feb, 2014 [facility] [place] [facility] [address] [id number] [place] [address] 15 Feb, 2014 [facility] [place] [facility] [address] [id number] [place] [address] 15 Feb, 2014 [facility] [place] [facility] [address] [id number] [place] [address] 15 Feb, 2014 [facility] [place] [facility] [address] [id number] [place] [address] Jan, [facility] [place] [facility] [address] [id number] [place] [address] Jan, [facility] [place] [facility] [address] [id number] [place] [address] Jan, [facility] [place] [facility] [address] [id number] [place] [address] Jan, [facility] [place] [facility] [address] [id number] [place] [address] Jan, [facility] [place] [facility] [address] [facility] [id number] [place] [address] Jan, [facility] [place] [facility] [address] [id number] [place] [address] Jan, [facility] [place] [facility] [address] [id number] [place] [address] Jan, [facility] [place] [facility] [address] [id number] [place] [address] Jan, [facility] [place] [facility] [address] [id number] [place] [address] Jan, [facility] [place] [facility] [address] [id number] [place] [address] Dec, [facility] [place] [facility] [address] [id number] [place] [address] Dec, [facility] [place] [facility] [address] [id number] [place] [address] Dec, [facility] [place] [facility] [address] [id number] [place] [address] Dec, [facility] [place] [facility] [address] [id number] [place] [address] Nov, 2013 [facility] [place] [facility] [address] [id number] [place] [address] Nov, 2013 [facility] [place] [facility] [address] [id number] [place] [address] Nov, [facility] [place] [facility] [address] [id number] [place] [address] Nov, [facility] [place] [facility] [address] [id number] [place] [address] Nov, [facility] [place] [facility] [address] [id number] [place] [address] Nov, [facility] [place] [facility] [address] [id number] [place] [address] Oct, [facility] [place] [facility] [address] [id number] [place] [address] Oct, [facility] [place] [facility] [address] [id number], [place] [address] Oct, [facility] [place] [facility] [address] [id number] [place] [address] Oct, [facility] [place] [facility] [address] [id number] [place] [address] Sep, [facility] [place] [facility] [address] [id number] [place] [address] Sep, [facility] [place] [facility] [address] [id number] [place] [address] Sep, [facility] [place] [facility] [address] [id number] [place] [address] Sep, [facility] [place] [facility] [address] [id number] [place] [address] Sep, [facility] [place] [facility] [address] [id number] [place] [address] Sep, [facility] [place] [facility] [address] [id number] [place] [address] July, [facility] [place] [facility] [address] [id number] [place] [address] July, [facility] [place] [facility] [address] [id number] [place] [address] July, [facility] [place] [facility] [address] [id number] [place] [address] July, [facility] [place] [facility] [address] [id number] [place] [address] Jun, [facility] [place] [facility] [address] [id number] [place] [address] Jun, [facility] [place] [facility] [address] [id number] [place] [address] Jun, [facility] [place] [facility] [address] [id number] [place] [address] Jun, [facility] [place] [facility] [address] [id number] [place] [address] Jun, [facility] [place] [facility] [address] [id number] [place] [address] Jun, [facility] [place] [facility] [address] [id number] [place] [address] May, [facility] [place] [facility] [address] [id number] [place] [address] May, [facility] [place] [facility] [address] [id number] [place] [address] Apr, [facility] [place] [facility] [address] [id number] [place] [address] Apr, [facility] [place] [facility] [address] [id number] [place] [address] Apr, [facility] [place] [facility] [address] [id number] [place] [address] Apr, [facility] [place] [facility] [address] [id number] [place] [address] Apr, [facility] [place] [facility] [address] [id number] [place] [address] Apr, [facility] [place] [facility] [address] [id number] [place] [address] Apr, [facility] [place] [facility] [address] [id number] [place] [address] Mar, [facility] [place] [facility] [address] [id number] [place] [address] Mar, [facility] [place] [facility] [address] [id number] [place] [address] Mar, [facility] [place] [facility] [address] [id number] [place] [address] Mar, [facility] [place] [facility] [address] [id number], [place] [address] Mar, [facility] [place] [facility] [address] [id number] [place] [address] Mar, [facility] [place] [facility] [address] [id number] [place] [address] Mar, [facility] [place] [facility] [address] [id number] [place] [address] Mar, [facility] [place] [facility] [address] [id number], [place] [address] Feb, [facility] [place] [facility] [address] [id number] [place] [address] Feb, [facility] [place] [facility] [address] [id number], [place] [address] Feb, [facility] [place] [facility] [address] [id number] [place] [address] Feb, [facility] [place] [facility] [address] [id number], [place] [address] Feb, [facility] [place] [facility] [address] [id number] [place] [address] Feb, [facility] [place] [facility] [address] [id number], [place] [address] Feb, [facility] [place] [facility] [address] [id number], [place] [address] Jan, [facility] [place] [facility] [address] [id number], [place] [address] Jan, [facility] [place] [facility] [address] [id number], [place] [address] Jan, [facility] [place] [facility] [address] [id number], [place] [address] Jan, [facility] [place] [facility] [address] [id number], [place] [address] Jan, [facility] [place] [facility] [address] [id number] [id number] Jan, [facility] [place] [facility] [address] [id number], [place] [address] Jan, [facility] [place] [facility] [address] [id number] [id number] Jan, [facility] [place] [facility] [address] [id number], [place] [address] Dec, [facility] [place] [facility] [address] [id number] [place] [address] 31 Dec, 2012 [facility] [place] [facility] [address] [id number] [place] [address] Dec, 2012 [facility] [place] [facility] [address] [id number] [place] [address] 31 Dec, 2012 [facility] [place] [facility] [address] [id number] [place] [address] 31 Dec, 2012 [facility] [place] [facility] [address] [id number] [place] [address] Dec, 2012 [facility] [place] [facility] [address] [id number] [place] [address] Dec, 2012 [facility] [place] [facility] [address] [id number] [place] [address] 16 Dec, 2012 [facility] [place] [facility] [address] [id number] [place] [address] 16 Dec, 2012 [facility] [place] [facility] [address] [id number] [place] [address] 04 Dec, 2012 [facility] [place] [facility] [address] [id number] [id number] 27 Nov, 2012 [facility] [place] [facility] [address] [id number] [id number] 27 Nov, 2012 [facility] [place] [facility] [address] [id number] [place] [address] 24 Sep, 2012 [facility] [place] [facility] [address] [id number], [place] [address] 20 Sep, 2012 [facility] [place] [facility] [address] [id number] [place] [address] 19 Sep, 2012 [facility] [place] [facility] [address] [id number] [place] [address] 13 Nov, 2012 [facility] [place] [facility] [address] [id number], [place] [address] 10 Sep, 2012 [facility] [place] [facility] [address] [id number] [place] [address] Nov, [facility] [place] [facility] [address] [id number] [place] [address] Oct, [facility] [place] [facility] [address] [id number] [place] [address] Oct, [facility] [place] [facility] [address] [id number] [place] [address] Oct, [facility] [place] [facility] [address] [id number] [place] [address] Sep, [facility] [place] [facility] [address] [id number] [place] [address] Sep, [facility] [place] [facility] [address] [id number] [place] [address] Sep, [facility] [place] [facility] [address] [id number] [place] [address] Sep, [facility] [place] [facility] [address] [id number] [place] [address] Sep, [facility] [place] [facility] [address] [id number] [place] [address] Aug, [facility] [place] [facility] [address] [id number] [place] [address] Aug, [facility] [place] [facility] [address] [id number] [place] [address] Aug, [facility] [place] [facility] [address] [id number] [place] [address] Aug, [facility] [place] [facility] [address] [id number] [place] [address] Aug, [facility] [place] [facility] [address] [id number] [place] [address] Aug, [facility] [place] [facility] [address] [id number] [place] [address] July, [facility] [address] [id number] [place] [address] July, [facility] [address] [id number] [place] [address] July, [facility] [address] [id number] [place] [address] July, [facility] [address] [id number] [place] [address] July, [facility] [address] [id number] [place] [address] July, [facility] [address] [id number] [place] [address] Jun, [facility] [address] [id number] [place] [address] Jun, [facility] [address] [id number] [place] [address] Jun, [facility] [address] [id number] [place] [address] Jun, [facility] [place] [facility] [address] [id number] [place] [address] May, [facility] [address] [id number] [place] [address] May, [facility] [place] [facility] [address] [id number] [place] [address] May, [facility] [place] [facility] [address] [id number] [place] [address] Apr, [facility] [place] [facility] [address] [id number] [place] [address] Mar, [facility] [place] [facility] [address] [id number] [place] [address] Mar, [facility] [place] [facility] [address] [id number] [place] [address] 17 Mar, 2012 [facility] [address] [id number] [place] [address] 16 Mar, 2012 [facility] [address] [id number] [place] [address] 15 Mar, 2012 [facility] [address] [id number] [place] [address] 31 Feb, 2012 [facility] [address] [id number] [place] [address] 31 Feb, 2012 [facility] [address] [id number] [place] [address], [place] [address] Feb, [facility] [address] [id number] [place] [address] Feb, [facility] [address] [facility] [id number] [place] [address] Jan, [facility] [address] [id number] [place] [address] Jan, [facility] [address] [id number] [place] [address] Jan, [facility] [address] [facility] [id number] [place] [address] Jan, [facility] [address] [id number] [place] [address] Dec, [facility] [address] [id number] [place] [address] Dec, [facility] [place] [facility] [address] [id number] [place] [address] Nov, [facility] [place] [facility] [address] [id number] [place] [address] Oct, [facility] [address] [id number] [place] [address] Oct, [facility] [address] [id number] [place] [address] Oct, [facility] [address] [id number] [place] [address] Oct, [facility] [address] [id number] [place] [address] Oct, [facility] [address] [id number] [place] [address] Sep, [facility] [address] [id number] [place] [address] Sep, [facility] [address] [id number] [place] [address] Aug, [address] [id number] Aug, [facility] [address] [id number] [place] [address] Aug, [facility] [address] [id number] [place] [address] July, [facility] [address] [id number] [place] [address] July, [facility] [address] [id number] [place] [address] Jun, [facility] [address] [id number] [place] [address] Jun, [facility] [address] [id number] [place] [address] Jun, [facility] [address] [id number] [place] [address] Jun, [facility] [address] [id number] [place] [address] Apr, [facility] [address] [id number] [place] [address] 15 Apr, 2011 [facility] [place] [facility] [address] [id number] [place] [address] Apr, [facility] [place] [facility] [address] [id number] [place] [address] Mar, [facility] [place] [facility] [address] [facility] [id number] [place] [address] Mar, [facility] [place] [facility] [address] [id number] [place] [address] Mar, [facility] [place] [facility] [address] [id number] [place] [address] Mar, [facility] [place] [facility] [address] [id number] [place] [address] Mar, [facility] [place] [facility] [address] [id number] [place] [address] Jan, [facility] [place] [facility] [address] [id number] [place] [address] Jan, [facility] [place] [facility] [address] [id number] [place] [address] Jan, [facility] [place] [facility] [address] [facility] [id number] [place] [address] Mar, [facility] [place] [facility] [address] [id number], [place] [address] Mar, [facility] [place] [facility] [address] [id number], [place] [address] Feb, [facility] [place] [facility] [address] [id number] [place] [address] Feb, [facility] [place] [facility] [address] [facility] [id number] [place] [address] Feb, [facility] [place] [facility] [address] [facility] [id number], [place] [address] Jan, [facility] [place] [facility] [id number], [place] [address] 17 Jan, 2010 [facility] [id number], [place] [address] Dec, [facility] [id number], [place] [address] Dec, [facility] [id number], [place] [address] May, [facility] [id number] [place] [address] Apr, [facility] [id number] [place] [address] Feb, [facility] [id number] [place] [phone] Feb, [facility] [id number] [place] [phone] Jan, [facility] [address], [place] [address] Jan, [facility] [id number] [place] [phone] Jan, [facility] [id number], [place] [address] Jan, [facility] [address] [place] [address] Jan, IMMUNIZATIONS No Known Immunizations SOCIAL HISTORY Never Assessed REASON FOR VISIT Controlled Medication Refill PLAN OF CARE VITAL SIGNS MEDICATIONS Medication Instructions Dosage Frequency Start Date End Date Duration Status Hydrocodone-Acetaminophen 5-325 MG Orally every 6 hrs 1 tablet as needed 6h Mar, 28 days Active MS Contin 30 MG Orally every 12 hrs 1 tablet 12h Mar, 28 days Active RESULTS No Results [...]
--- OUTSIDE RECORDS SUMMARY | 2018-10-04 06:49 | XMS REPORT ---
Author Author PARI ORTEGA Organization [employer] Address Unknown Phone Unavailable Care Team Providers Care Oven Unloader Name Role Phone PARI ORTEGA CP Unavailable Allergies No Known Allergies Problems Problem Type Condition Code Onset Dates Condition Status Problem MITCHELL treated with BiPAP G47.33 Active Problem Non-ischemic cardiomyopathy I42.9 Active Problem Chronic systolic (congestive) heart failure I50.22 Active Problem Major depressive disorder, recurrent episode, unspecified severity F33.9 Active Problem Chronic obstructive pulmonary disease, unspecified COPD type J44.9 Active Problem Type 2 diabetes mellitus with 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 Active Problem Gastroesophageal reflux disease, esophagitis presence not specified K21.9 Active Problem History of DVT (deep vein thrombosis) Z86.718 Active Problem Chronic pain syndrome G89.4 Active Problem PTSD (post-traumatic stress disorder) F43.10 Active Problem Pure hypercholesterolemia E78.0 Active Problem Essential hypertension I10 Active Problem History of weight loss surgery Z98.84 Active Medications Medication Code System Code Instructions Start Date End Date Status Dosage Prozac [facility] [address]-55 40 MG Orally Once a day Jan 08, 2015 1 capsule in the morning Trazodone HCl [facility] [address]-29 100 MG Orally Once a day Feb 10, 2015 2 tablet at bedtime Invega [facility] [address]-28 6 MG Orally Once a day Jan 08, 2015 2 tablets HydrOXYzine Pamoate [facility] [address]-53 25 MG Orally every 8 hrs Jan 08, 2015 1 capsule as needed Results No Known Results Summary Purpose [employer] Submission
--- OUTSIDE RECORDS SUMMARY | 2018-10-04 06:50 | XMS REPORT ---
Author Author KATHY ESTHER Organization [facility] Address [address] [place] [address] Care Team Providers Care Utility Clerk Name Role Phone BRIAN CHAVEZY Unavailable PROBLEMS Type Condition ICD9-CM Code [id number] Code Onset Dates Condition Status SNOMED Code Problem MITCHELL treated with BiPAP G47.33 Active 08875312 Problem Acute right-sided low back pain with right-sided sciatica M54.41 Active 77017275 Problem Chronic prescription opiate use Z79.891 Active 594348353 Problem BMI 45.0-49.9, adult Z68.42 Active 638873275 Problem Gastroesophageal reflux disease, esophagitis presence not specified K21.9 Active 698399476 Problem Macrocytosis D75.89 Active 768136482 Problem Major depressive disorder, recurrent episode, unspecified severity F33.9 Active 99786553 Problem Primary osteoarthritis of both knees M17.0 Active 133065970 Problem Severe major depression with psychotic features F32.3 Active 26758407 Problem Posttraumatic stress disorder F43.10 Active 83427287 Problem Tobacco abuse Z72.0 Active 419532150 Problem Obesity, morbid, BMI 40.0-49.9 E66.01 Active 405858698 Problem History of weight loss surgery Z98.84 Active 863911608 Problem PTSD (post-traumatic stress disorder) F43.10 Active 55350552 Problem Non-ischemic cardiomyopathy I42.9 Active 89995230 Problem Chronic obstructive pulmonary disease, unspecified COPD type J44.9 Active 73381131 Problem Pure hypercholesterolemia E78.0 Active 651143022 Problem Type 2 diabetes mellitus with diabetic polyneuropathy E11.42 Active 490015212 Problem Chronic systolic (congestive) heart failure I50.22 Active 720084219 Problem History of DVT (deep vein thrombosis) Z86.718 Active 216486235 Problem Nocturnal hypoxia G47.34 Active 538700713 Problem Chronic pain syndrome G89.4 Active 589168950 Problem Essential hypertension I10 Active 16731427 ALLERGIES Unknown Allergies SOCIAL HISTORY No smoking Hx information available PLAN OF CARE VITAL SIGNS MEDICATIONS Unknown Medications RESULTS No Results PROCEDURES No Known procedures IMMUNIZATIONS No Known Immunizations
--- OUTSIDE RECORDS SUMMARY | 2018-10-04 06:50 | XMS REPORT ---
Author Author ESTHER CHAVEZ Organization [employer] Address Unknown Phone Unavailable Care Team Providers Care Sba Business Development Officer Name Role Phone ESTHER CHAVEZ CP Unavailable Allergies No Known Allergies Problems Problem Type Condition Code Onset Dates Condition Status Problem Posttraumatic stress disorder 309.81 Active Problem Headache 784.0 Active Problem Chronic airway obstruction, not elsewhere classified 496 Active Problem Unspecified peripheral vascular disease 443.9 Active Problem Diabetes mellitus 250.00 Active Problem DM neuro manif type II 250.60 Active Problem Chronic pain 338.29 Active Problem Major depressive disorder, recurrent episode, moderate 296.32 Active Problem Brachial neuritis or radiculitis nos. 723.4 Active Problem External hemorrhoids without mention of complication 455.3 Active Problem Urinary hesitancy 788.64 Active Medications No Known Medications Results No Known Results Summary Purpose [employer] Submission
--- OUTSIDE RECORDS SUMMARY | 2018-10-04 06:51 | XMS REPORT ---
Author Author ESTHER CHAVEZ [employer] Address Unknown Phone Unavailable Care Team Providers Care Hub Inventory Specialist Name Role Phone ESTHER CHAVEZ CP Unavailable [...] of weight loss surgery Z98.84 Active Medications No Known Medications Results No Known Results Summary Purpose [employer] Submission
--- OUTSIDE RECORDS SUMMARY | 2018-10-04 06:51 | XMS REPORT ---
Author Author PARI ORTEGA Organization [employer] Address Unknown Phone Unavailable Care Team Providers Care Learning Administrator Name Role Phone PARI ORTEGA CP Unavailable [...] Active Problem Urinary hesitancy 788.64 Active Medications Medication Code System Code Instructions Start Date End Date Status Dosage Clonazepam [facility] [address]-15 1 MG Orally Twice a day PRN 1 tablet Results No Known Results Summary Purpose [employer] Submission
--- OUTSIDE RECORDS SUMMARY | 2018-10-04 06:51 | XMS REPORT ---
Author Author KATHY EST[facility] Address [address] [place] [address] Care Team Providers Care Hospice Admitting Clerk Name Role Phone KATHYBRIAN VILLEGASY Unavailable PROBLEMS Type Condition ICD9-CM Code OBU19-TQ Code Onset Dates Condition Status SNOMED Code Problem Primary osteoarthritis of both knees M17.0 Active 947571188 Problem MITCHELL treated with BiPAP G47.33 Active 95878267 Problem Nocturnal hypoxia G47.34 Active 731931334 Problem Chronic prescription opiate use Z79.891 Active 424737001 Problem Chronic systolic (congestive) heart failure I50.22 Active 267003402 Problem Acute right-sided low back pain with right-sided sciatica M54.41 Active 34061641 Problem Posttraumatic stress disorder F43.10 Active 81949040 Problem Severe major depression with psychotic features F32.3 Active 66682203 Problem Mood disorder F39 Active 64046010 Problem Mild episode of recurrent major depressive disorder F33.0 Active 219310647 Problem Type 2 diabetes mellitus with diabetic polyneuropathy E11.42 Active 362144555 Problem Pure hypercholesterolemia E78.0 Active 247020339 Problem Chronic pain syndrome G89.4 Active 508610920 Problem Tobacco abuse Z72.0 Active 047791792 Problem Obesity, morbid, BMI 40.0-49.9 E66.01 Active 894861992 Problem BMI 45.0-49.9, adult Z68.42 Active 209797465 Problem Macrocytosis D75.89 Active 811537304 Problem Major depressive disorder, recurrent episode, unspecified severity F33.9 Active 63407285 Problem Gastroesophageal reflux disease, esophagitis presence not specified K21.9 Active 414108837 Problem History of DVT (deep vein thrombosis) Z86.718 Active 053674460 Problem Essential hypertension I10 Active 09466269 Problem History of weight loss surgery Z98.84 Active 842365525 Problem PTSD (post-traumatic stress disorder) F43.10 Active 48194631 Problem Non-ischemic cardiomyopathy I42.9 Active 23238560 Problem Chronic obstructive pulmonary disease, unspecified COPD type J44.9 Active 77891169 ALLERGIES No Information ENCOUNTERS Encounter Location Date Diagnosis [facility] [id number] [address] Sep, [facility] [id number] [address] July, [facility] [id number] [place] [address] July, Medicare annual wellness visit, initial Z00.00 [facility] [id number] [place] [address] 09 Jun, 2017 Infection of right ear H66.91 ; Wheezing on auscultation R06.2 and BMI 45.0-49.9, adult Z68.42 [facility] [id number] [place] [address] Jun, [facility] [id number] [place] [address] Jun, Primary osteoarthritis of both knees M17.0 and Chronic pain syndrome G89.4 [facility] [id number] [place] [address] May, [facility] [id number] [address] May, BMI 45.0-49.9, adult Z68.42 ; Mood disorder F39 and Posttraumatic stress disorder F43.10 [facility] [address] [address] May, [facility] [id number] [place] [address] May, Primary osteoarthritis of both knees M17.0 and Chronic pain syndrome G89.4 [facility] [address] [address] May, Mood disorder F39 [place] [address] [address] Apr, Type 2 diabetes mellitus with diabetic polyneuropathy E11.42 [facility] [address] [address] Apr, [facility] [address] [address] Apr, Primary osteoarthritis of both knees M17.0 and Chronic pain syndrome G89.4 [facility] [id number] [place] [address] Apr, Mood disorder F39 [facility] [id number] [place] [address] Mar, Mood disorder F39 and Posttraumatic stress disorder F43.10 [facility] [id number] [place] [address] Mar, Primary osteoarthritis of both knees M17.0 and Chronic pain syndrome G89.4 [facility] [address] [address] Feb, Primary osteoarthritis of both knees M17.0 and Chronic pain syndrome G89.4 [facility] [address] [address] Feb, Mood disorder F39 [facility] [address] [address] Jan, Type 2 diabetes mellitus with diabetic polyneuropathy E11.42 ; Primary osteoarthritis of both knees M17.0 ; Mood disorder F39 ; Obesity, morbid, BMI 40.0-49.9 E66.01 ; Chronic prescription opiate use Z79.891 ; Acute suppurative otitis media of both ears without spontaneous rupture of tympanic membranes, recurrence not specified H66.003 and BMI 45.0-49.9, adult Z68.42 [facility] [address] [address] Jan, Primary osteoarthritis of both knees M17.0 and Chronic pain syndrome G89.4 [facility] [address] [address] Dec, Mood disorder F39 and Posttraumatic stress disorder F43.10 [facility] [id number] [address] 13 Dec, 2016 Primary osteoarthritis of both knees M17.0 and Chronic pain syndrome G89.4 [facility] [id number] [place] [address] 18 Nov, 2016 Chronic pain syndrome G89.4 [facility] [id number] [place] [address] 15 Nov, 2016 Primary osteoarthritis of both knees M17.0 and Chronic pain syndrome G89.4 [facility] [id number] [place] [address] 13 Nov, 2016 Type 2 diabetes mellitus with diabetic polyneuropathy E11.42 and Chronic pain syndrome G89.4 [facility] [id number] [place] [address] 12 Nov, 2016 Posttraumatic stress disorder F43.10 and Mood disorder F39 [facility] [id number] [place] [address] Oct, Chronic pain syndrome G89.4 [facility] [id number] [place] [address] Oct, Type 2 diabetes mellitus with diabetic polyneuropathy E11.42 ; BMI 45.0-49.9, adult Z68.42 ; Primary osteoarthritis of both knees M17.0 and Skin lesion L98.9 [facility] [id number] [place] [address] 09 Oct, 2016 Chronic pain syndrome G89.4 [facility] [id number] [place] [address] Sep, Chronic pain syndrome G89.4 [facility] [id number] [place] [address] Sep, [facility] [id number] [place] [address] Sep, Chronic pain syndrome G89.4 [facility] [id number] [place] [address] Aug, Chronic pain syndrome G89.4 [facility] [address] [address] Aug, [facility] [id number] [place] [address] Aug, Macrocytosis D75.89 and Pure hypercholesterolemia E78.0 [facility] [id number] [place] [address] Aug, Pure hypercholesterolemia E78.0 [facility] [id number] [place] [address] Aug, Macrocytosis D75.89 [facility] [id number] [place] [address] Aug, Pure hypercholesterolemia E78.0 ; Type 2 diabetes mellitus with diabetic polyneuropathy E11.42 ; MITCHELL treated with BiPAP G47.33 and Chronic pain syndrome G89.4 [facility] [place] [id number] [place] [address] Aug, [facility] [id number] [place] [address] Aug, Hemorrhoids, unspecified hemorrhoid type K64.9 [facility] [id number] [place] [address] Aug, Chronic pain syndrome G89.4 ; Type 2 diabetes mellitus with diabetic polyneuropathy E11.42 ; Hemorrhoids, unspecified hemorrhoid type K64.9 ; Tobacco abuse Z72.0 and Primary osteoarthritis of both knees M17.0 [facility] [id number] [place] [address] July, Chronic pain syndrome G89.4 [facility] [id number] [place] [address] July, [facility] [id number] [place] [address] Jun, Chronic pain syndrome G89.4 [facility] [id number] [place] [address] Jun, Chronic pain syndrome G89.4 [facility] [id number] [place] [address] Jun, Severe major depression with psychotic features F32.3 and Posttraumatic stress disorder F43.10 [facility] [id number] [place] [address] Jun, Chronic pain syndrome G89.4 [facility] [id number] [place] [address] Jun, [facility] [id number] [place] [address] May, Chronic pain syndrome G89.4 [facility] [id number] [place] [address] May, Tobacco abuse Z72.0 [facility] [id number] [place] [address] May, [facility] [id number] [place] [address] Apr, Chronic pain syndrome G89.4 [facility] [id number] [place] [address] Apr, [facility] [id number] [place] [address] Apr, Right foot pain M79.671 [facility] [id number] [place] [address] Mar, Type 2 diabetes mellitus with diabetic polyneuropathy E11.42 ; MITCHELL treated with BiPAP G47.33 ; Pure hypercholesterolemia E78.0 ; Chronic pain syndrome G89.4 ; Tobacco abuse Z72.0 and Obesity, morbid, BMI 40.0-49.9 E66.01 [facility] [id number] [place] [address] Mar, [facility] [id number] [place] [address] Mar, [facility] [id number] [place] [address] Mar, [facility] [id number] [place] [address] Mar, [facility] [id number] [place] [address] Mar, [facility] [id number] [place] [address] Mar, Severe major depression with psychotic features F32.3 and Posttraumatic stress disorder F43.10 [facility] [id number] [place] [address] Mar, [facility] [id number] [place] [address] Feb, [facility] [id number] [place] [address] Feb, [facility] [id number] [place] [address] Jan, [facility] [id number] [place] [address] Jan, [facility] [id number] [place] [address] Dec, Posttraumatic stress disorder F43.10 and Severe major depression with psychotic features F32.3 [facility] [id number] [place] [address] Dec, Type 2 diabetes mellitus with diabetic polyneuropathy E11.42 ; Chronic pain syndrome G89.4 and Acute right-sided low back pain with right-sided sciatica M54.41 [facility] [id number] [place] [address] Dec, [facility] [id number] [place] [address] Dec, [facility] [id number] [place] [address] Nov, [facility] [id number] [place] [address] Nov, [facility] [id number] [place] [address] Nov, [facility] [id number] [place] [address] Oct, [facility] [id number] [place] [address] Oct, [facility] [id number] [place] [address] Sep, Dental examination Z01.20 [facility] [id number] [place] [address] Sep, [facility] [id number] [place] [address] Sep, Type 2 diabetes mellitus with diabetic polyneuropathy E11.42 ; Chronic pain syndrome G89.4 ; Chronic prescription opiate use Z79.891 ; Injury of right index finger, sequela S69.91XS and Anejaculation N50.8 [facility] [id number] [place] [address] Aug, [facility] [id number] [place] [address] Aug, [facility] [address] [address] Aug, Cellulitis of finger of right hand L03.011 [facility] [address] [address] July, [facility] [address] [address] July, [facility] [id number] [place] [address] Jun, Onychomycosis B35.1 [facility] [id number] [place] [address] Jun, Severe major depression with psychotic features F32.3 and Posttraumatic stress disorder F43.10 [facility] [address] [address] Jun, [facility] [id number] [place] [address] Jun, [facility] [address] [address] Jun, [facility] [address] [address] May, Type 2 diabetes mellitus with diabetic polyneuropathy E11.42 [facility] [address] [address] May, Type 2 diabetes mellitus with diabetic polyneuropathy E11.42 and Urinary hesitancy R39.11 [facility] [address] [address] May, Type 2 diabetes mellitus with diabetic polyneuropathy E11.42 ; Left hip pain M25.552 and Benign prostatic hyperplasia with lower urinary tract symptoms, unspecified morphology N40.1 [facility] [address] [address] May, [facility] [id number] [address] Apr, Severe major depression with psychotic features F32.3 and Posttraumatic stress disorder F43.10 [facility] [id number] [place] [address] 08 Apr, 2015 [facility] [id number] [place] [address] Mar, [facility] [id number] [place] [address] Mar, Dysuria R30.0 and Urinary hesitancy R39.11 [facility] [id number] [place] [address] Mar, Onychomycosis B35.1 [facility] [id number] [place] [address] Mar, [facility] [id number] [place] [address] Feb, [facility] [id number] [place] [address] Jan, [facility] [id number] [place] [address] Jan, Posttraumatic stress disorder F43.10 and Severe major depression with psychotic features F32.3 [facility] [id number] [place] [address] Jan, [facility] [id number] [place] [address] Jan, Chronic pain syndrome G89.4 ; Type 2 diabetes mellitus with diabetic polyneuropathy E11.42 ; Decreased pedal pulses R09.89 and Paresthesia of both hands R20.2 [facility] [address] [address] 28 Dec, 2014 Posttraumatic stress disorder F43.10 and Severe major depression with psychotic features F32.3 [facility] [address] [address] Dec, [facility] [id number] [place] [address] Dec, [facility] [address] [address] Dec, Onychomycosis B35.1 [facility] [id number] [place] [address] Dec, [facility] [id number] [place] [address] Dec, [facility] [id number] [place] [address] Nov, [facility] [id number] [place] [address] Oct, Depression, major, recurrent, moderate 296.32 and Posttraumatic stress disorder 309.81 [facility] [address] [address] Oct, [facility] [id number] [place] [address] Oct, [facility] [address] [address] Oct, [facility] [id number] [place] [address] Sep, Posttraumatic stress disorder 309.81 and Depression, major, recurrent, moderate 296.32 [facility] [address] [address] Sep, [facility] [id number] [place] [address] Sep, Chronic airway obstruction, not elsewhere classified 496 [facility] [address] [address] Sep, Onychomycosis 110.1 and DM neuro manif type II 250.60 [facility] [id number] [place] [address] Sep, Chronic pain 338.29 ; Chronic airway obstruction, not elsewhere classified 496 ; Osteoarthritis of knees, bilateral 715.96 and On potassium wasting diuretic therapy V58.69 [facility] [id number] [place] [address] Sep, Insect bites 919.4 ; Sinusitis 473.9 and GERD (gastroesophageal reflux disease) 530.81 [facility] [id number] [place] [address] Aug, Depression, major, recurrent, moderate 296.32 and Posttraumatic stress disorder 309.81 [facility] [id number] [place] [address] Aug, [facility] [address] [address] Aug, [facility] [id number] [place] [address] Aug, [facility] [id number] [place] [address] July, Major depressive disorder, recurrent episode, moderate 296.32 and Posttraumatic stress disorder 309.81 [facility] [id number] [place] [address] July, [facility] [id number] [place] [address] July, [facility] [id number] [place] [address] July, [facility] [id number] [place] [address] July, [facility] [id number] [place] [address] Jun, [facility] [id number] [place] [address] 13 Jun, 2014 [facility] [place] [facility] [address] [id number] [place] [address] 20 May, 2014 [facility] [place] [facility] [address] [id number] [place] [address] 20 May, 2014 [facility] [place] [facility] [address] [facility]NOTE [facility]] [id number] [place] [address] 18 May, 2014 [facility] [place] [facility] [address] [id number] [place] [address] 18 May, 2014 [facility] [place] [facility] [address] [id number] [place] [address] 18 May, 2014 [facility] [place] [facility] [address] [facility][NOTE 3] [id number] [place] [address] 18 May, 2014 [facility] [place] [facility] [address] [facility][NOTE 3] [id number] [place] [address] May, [facility] [place] [facility] [address] [facility][NOTE 3] [id number] [place] [address] 04 May, 2014 [facility] [place] [facility] [address] [facility][NOTE 3] [id number] [place] [address] May, [facility] [place] [facility] [address] [facility][NOTE 3] [id number] [place] [address] Apr, 2014 [facility] [place] [facility] [address] [facility][NOTE 3] [id number] [place] [address] Apr, 2014 [facility] [place] [facility] [address] [facility][NOTE 3] [id number] [place] [address] Apr, 2014 [facility] [place] [facility] [address] [id number] [place] [address] Apr, 2014 [facility] [place] [facility] [address] [facility][NOTE 3] [id number] [place] [address] Apr, 2014 [facility] [place] [facility] [address] [facility][NOTE 3] [id number] [address] Apr, 2014 [facility] [place] [facility] [address] [id number] [place] [address] Apr, [facility] [place] [facility] [address] [id number] [place] [address] Apr, [facility] [place] [facility] [address] [id number] [place] [address] Apr, [facility] [place] [facility] [address] [id number] [place] [address] Mar, [facility] [place] [facility] [address] [id number] [place] [address] Mar, [facility] [place] [facility] [address] [id number] [place] [address] Mar, [facility] [place] [facility] [address] [id number] [place] [address] Mar, [facility] [place] [facility] [address] [id number] [place] [address] Mar, [facility] [place] [facility] [address] [id number] [place] [address] Mar, [facility] [place] [facility] [address] [id number] [place] [address] Mar, [facility] [place] [facility] [address] [id number] [place] [address] Mar, [facility] [place] [facility] [address] [id number] [place] [address] Mar, [facility] [place] [facility] [address] [id number] [place] [address] Mar, [facility] [place] [facility] [address] [id number] [place] [address] 14 Mar, 2014 [facility] [place] [facility] [address] [id number] [place] [address] 14 Mar, 2014 [facility] [place] [facility] [address] [id number] [place] [address] 14 Mar, 2014 [facility] [place] [facility] [address] [id number] [place] [address] 14 Mar, 2014 [facility] [place] [facility] [address] [id number] [place] [address] 14 Mar, 2014 [facility] [place] [facility] [address] [facility]NOTE 3] [id number] [place] [address] Mar, [facility] [place] [facility] [address] [id number] [place] [address] 09 Mar, 2014 [facility] [place] [facility] [address] [id number] [place] [address] Mar, [facility] [place] [facility] [address] [id number] [place] [address] 16 Feb, 2014 [facility] [place] [facility] [address] [facility]NOTE 3] [id number] [place] [address] 16 Feb, 2014 [facility] [place] [facility] [address] [id number] [place] [address] 15 Feb, 2014 [facility] [place] [facility] [address] [id number] [place] [address] 15 Feb, 2014 [facility] [place] [facility] [address] [facility]NOTE 3] [id number] [place] [address] 15 Feb, 2014 [facility] [place] [facility] [address] [id number] [place] [address] 15 Feb, 2014 [facility] [place] [facility] [address] [id number] [place] [address] Jan, [facility] [place] [facility] [address] [id number] [place] [address] Jan, [facility] [place] [facility] [address] [facility]NOTE 3] [id number] [place] [address] 17 Jan, 2014 [facility] [place] [facility] [address] [facility]NOTE 3] [id number] [place] [address] 17 Jan, 2014 [facility] [place] [facility] [address] [id number] [place] [address] Jan, [facility] [place] [facility] [address] [id number] [place] [address] Jan, [facility] [place] [facility] [address] [id number] [place] [address] Jan, [facility] [place] [facility] [address] [id number] [place] [address] Jan, [facility] [place] [facility] [address] [id number] [place] [address] Jan, [facility] [place] [facility] [address] [id number] [place] [address] Jan, [facility] [place] [facility] [address] [id number] [place] [address] Dec, [facility] [place] [facility] [address] [id number] [place] [address] Dec, [facility] [place] [facility] [address] [id number] [place] [address] Dec, [facility] [place] [facility] [address] [id number] [place] [address] Dec, [facility] [place] [facility] [address] [id number] [place] [address] 16 Nov, 2013 [facility] [place] [facility] [address] [id number] [place] [address] 16 Nov, 2013 [facility] [place] [facility] [address] [id number] [place] [address] 03 Sep, 2013 [facility] [place] [facility] [address] [id number] [place] [address] 03 Sep, 2013 [facility] [place] [facility] [address] [id number] [place] [address] 03 Sep, 2013 [facility] [place] [facility] [address] [id number] [place] [address] Nov, [facility] [place] [facility] [address] [id number] [place] [address] Oct, [facility] [place] [facility] [address] [id number] [place] [address] Oct, [facility] [place] [facility] [address] [id number] [place] [address] Oct, [facility] [place] [facility] [address] [id number] [place] [address] Oct, [facility] [place] [facility] [address] [id number] [place] [address] Sep, [facility] [place] [facility] [address] [id number] [place] [address] Sep, [facility] [place] [facility] [address] [id number] [place] [address] Sep, [facility] [place] [facility] [address] [id number] [place] [address] Sep, [facility] [place] [facility] [address] [id number] [place] [address] Sep, [facility] [place] [facility] [address] [id number] [place] [address] Sep, [facility] [place] [facility] [address] [id number] [place] [address] July, [facility] [place] [facility] [address] [id number] [place] [address] July, [facility] [place] [facility] [address] [id number] [place] [address] July, [facility] [place] [facility] [address] [id number] [place] [address] July, [facility] [place] [facility] [address] [id number] [place] [address] Jun, [facility] [place] [facility] [address] [id number] [place] [address] Jun, [facility] [place] [facility] [address] [id number] [place] [address] Jun, [facility] [place] [facility] [address] [id number] [place] [address] Jun, [facility] [place] [facility] [address] [id number] [place] [address] Jun, [facility] [place] [facility] [address] [id number] [place] [address] Jun, [facility] [place] [facility] [address] [id number] [place] [address] May, [facility] [place] [facility] [address] [facility]NOTE 3] [id number] [place] [address] May, [facility] [place] [facility] [address] [facility]NOTE 3] [id number] [place] [address] Apr, [facility] [place] [facility] [address] [id number] [place] [address] Apr, [facility] [place] [facility] [address] [id number] [address] Apr, [facility] [place] [facility] [address] [facility]NOTE 3] [id number] [place] [address] Apr, [facility] [place] [facility] [address] [facility]NOTE 3] [id number] [place] [address] Apr, [facility] [place] [facility] [address] [facility]NOTE 3] [id number] [place] [address] Apr, [facility] [place] [facility] [address] [facility]NOTE 3] [id number] [place] [address] Apr, [facility] [place] [facility] [address] [facility]NOTE 3] [id number] [place] [address] Mar, [facility] [place] [facility] [address] [facility]NOTE 3] [id number] [place] [address] Mar, [facility] [place] [facility] [address] [id number] [place] [address] Mar, [facility] [place] [facility] [address] [id number] [place] [address] Mar, [facility] [place] [facility] [address] [id number] [place] [address] Mar, [facility] [place] [facility] [address] [id number] [place] [address] Mar, [facility] [place] [facility] [address] [id number] [place] [address] Mar, [facility] [place] [facility] [address] [id number] [place] [address] Mar, [facility] [place] [facility] [address] [id number] [place] [address] Feb, [facility] [place] [facility] [address] [id number] [place] [address] Feb, [facility] [place] [facility] [address] [id number] [place] [address] Feb, [facility] [place] [facility] [address] [id number] [place] [address] Feb, [facility] [place] [facility] [address] [id number] [place] [address] Feb, [facility] [place] [facility] [address] [id number] [place] [address] Feb, [facility] [place] [facility] [address] [id number] [place] [address] Feb, [facility] [place] [facility] [address] [id number] [place] [address] Jan, [facility] [place] [facility] [address] [id number] [place] [address] Jan, [facility] [place] [facility] [address] [id number] [place] [address] Jan, [facility] [place] [facility] [address] [id number] [place] [address] Jan, [facility] [place] [facility] [address] [id number] [place] [address] Jan, [facility] [place] [facility] [address] [id number] [place] [address] Jan, [facility] [place] [facility] [address] [id number] [place] [id number] Jan, [facility] [place] [facility] [address] [id number] [place] [id number] Jan, [facility] [place] [facility] [address] [id number] [place] [address] Dec, [facility] [place] [facility] [address] [id number] [place] [address] Dec, [facility] [place] [facility] [address] [id number] [place] [address] Dec, [facility] [place] [facility] [address] [id number] [place] [address] Dec, [facility] [place] [facility] [address] [id number] [place] [address] Dec, [facility] [place] [facility] [address] [id number] [place] [address] Dec, [facility] [place] [facility] [address] [id number] [place] [address] Dec, [facility] [place] [facility] [address] [id number] [place] [address] Dec, [facility] [place] [facility] [address] [id number] [place] [address] Dec, [facility] [place] [facility] [address] [id number] [place] [address] Dec, [facility] [place] [facility] [address] [id number] [place] [id number] 27 Nov, 2012 [facility] [address] [id number] [place] [id number] Nov, 2012 [facility] [address] [id number] [place] [address] 24 Nov, 2012 [facility] [address] [id number] [place] [address] 20 Nov, 2012 [facility] [address] [id number] [place] [address] 19 Nov, 2012 [facility] [address] [id number] [place] [address] 13 Nov, 2012 [facility] [address] [id number] [place] [address] 10 Nov, 2012 [facility] [address] [id number] [place] [address] Nov, [facility] [address] [id number] [place] [address] Oct, [facility] [address] [id number] [place] [address] Oct, [facility] [address] [id number] [place] [address] Oct, [facility] [address] [id number] [place] [address] Sep, [facility] [address] [id number] [place] [address] Sep, [facility] [address] [id number] [place] [address] Sep, [facility] [address] [id number] [place] [address] Sep, [facility] [address] [id number] [place] [address] Sep, [facility] [address] [id number] [place] [address] Aug, [facility] [place] [facility] [address] [id number] [place] [address] Aug, [facility] [place] [facility] [address] [id number] [place] [address] Aug, [facility] [place] [facility] [address] [id number] [place] [address] Aug, [facility] [address] [id number] [place] [address] Aug, [facility] [place] [facility] [address] [id number] [place] [address] Aug, [facility] [place] [facility] [address] [id number] [place] [address] July, [facility] [place] [facility] [address] [id number] [place] [address] July, [facility] [place] [facility] [address] [id number] [place] [address] July, [facility] [place] [facility] [address] [id number] [place] [address] July, [facility] [place] [facility] [address] [id number] [place] [address] July, [facility] [place] [facility] [address] [id number] [place] [address] July, [facility] [place] [facility] [address] [id number] [place] [address] Jun, [facility] [place] [facility] [address] [id number] [place] [address] Jun, [facility] [place] [facility] [address] [id number] [place] [address] Jun, [facility] [place] [facility] [address] [id number] [place] [address] Jun, [facility] [address] [id number] [place] [address] May, [facility] [address] [id number] [place] [address] May, [facility] [address] [facility]NOTE 3] [id number] [place] [address] May, [facility] [address] [id number] [place] [address] Apr, [facility] [address] [id number] [place] [address] Mar, [facility] [address] [id number] [place] [address] Mar, [facility] [address] [facility]NOTE 3] [id number] [place] [address] Mar, [facility] [address] [id number] [place] [address] Mar, [facility] [address] [facility]NOTE 3] [id number] [place] [address] Mar, [facility] [address] [facility]NOTE 3] [id number] [place] [address] Feb, [facility] [address] [id number] [place] [address] Feb, [facility] [address] [id number] [place] [address] Feb, [facility] [address] [id number] [place] [address] 17 Feb, 2012 [facility] [address] [facility]NOTE 3] [id number] [place] [address] Jan, [facility] [address] [facility]NOTE 3] [id number] [place] [address] Jan, [facility] [address] [id number] [place] [address] Jan, [facility] [address] [id number] [place] [address] Jan, [facility] [place] [facility] [address] [id number] [place] [address] Dec, [facility] [place] [facility] [address] [id number] [place] [address] Dec, [facility] [place] [facility] [address] [id number] [place] [address] Nov, [facility] [place] [facility] [address] [id number] [place] [address] Oct, [facility] [address] [id number] [place] [address] Oct, [facility] [place] [facility] [address] [id number] [place] [address] Oct, [facility] [address] [id number] [place] [address] Oct, [facility] [address] [id number] [place] [address] Oct, [facility] [address] [id number] [place] [address] Sep, [facility] [place] [facility] [address] [id number] [place] [address] Sep, [facility] [address] [id number] [place] [address] Aug, [facility] [address] [place] [id number] Aug, [facility] [place] [facility] [address] [id number] [place] [address] Aug, [facility] [address] [id number] [place] [address] July, [facility] [address] [id number] [place] [address] July, [facility] [place] [facility] [address] [id number] [place] [address] Jun, [facility] [place] [facility] [address] [id number] [place] [address] Jun, [facility] [place] [facility] [address] [id number] [place] [address] Jun, [facility] [place] [facility] [address] [id number] [place] [address] Jun, [facility] [place] [facility] [address] [id number] [place] [address] Apr, [facility] [place] [facility] [address] [id number] [place] [address] Apr, [facility] [place] [facility] [address] [id number] [place] [address] Apr, [facility] [place] [facility] [address] [id number] [place] [address] Mar, [facility] [place] [facility] [address] [id number] [place] [address] Mar, [facility] [place] [facility] [address] [id number] [place] [address] Mar, [facility] [place] [facility] [address] [id number] [place] [address] Mar, [facility] [place] [facility] [address] [id number] [place] [address] Mar, [facility] [place] [facility] [address] [id number] [place] [address] Jan, [facility] [place] [facility] [address] [id number] [place] [address] Jan, [facility] [place] [facility] [address] [id number] [place] [address] Jan, [facility] [address] [id number] [place] [address] 17 Mar, 2010 [facility] [place] [facility] [address] [id number] [place] [address] 11 Mar, 2010 [facility] [address] [facility]NOTE 3] [id number] [place] [address] 20 Feb, 2010 [facility] [place] [facility] [address] [id number] [place] [address] 16 Feb, 2010 [facility] [address] [id number] [place] [address] Feb, [facility] [place] [facility] [address] [id number] [place] [address] Jan, [facility] [address] [facility]NOTE 3] [id number] [place] [address] Jan, [facility] [place] [facility] [address] [facility]NOTE 3] [id number] [place] [address] Dec, [facility] [address] [facility]NOTE 3] [id number] [place] [address] Dec, [facility] [place] [facility] [address] [facility]NOTE 3] [id number] [place] [address] May, [facility] [place] [facility] [address] [facility]NOTE 3] [id number] [address] 10 Apr, 2009 [facility] [place] [facility] [address] [id number] [place] [address] Feb, [facility] [place] [facility] [address] [id number] [place] [address] Feb, [facility] [place] [facility] [address] [facility]NOTE 3] [id number] [place] [address] 30 Jan, 2009 [facility] [place] [facility] [address] [facility]NOTE 3] [id number] [place] [address] Jan, [facility] [place] [facility] [address] [facility][NOTE 3] [id number] [place] [address] Jan, [facility] [address] [facility]] [id number] [place] [address] Jan, [facility] [address] [facility][NOTE 3] [id number] [place] [address] Jan, IMMUNIZATIONS No Known Immunizations SOCIAL HISTORY Never Assessed REASON FOR VISIT Refill Request PLAN OF CARE VITAL SIGNS MEDICATIONS Medication Instructions Dosage Frequency Start Date End Date Duration Status Ibuprofen 800 MG Orally Three times a day 1 tablet as needed 8h 90 days Active Metformin HCl 500 mg Orally Twice a day 1 tablet with meals 12h 90 days Active RESULTS No Results PROCEDURES No [...]
--- OUTSIDE RECORDS SUMMARY | 2018-10-04 06:52 | XMS REPORT ---
Author Author KATHY ESTHER [facility] Address [address] [place] [address] Care Team Providers Care Straddle Bug Driver Name Role Phone KATHYESTHER VILLEGAS Unavailable PROBLEMS Type Condition ICD9-CM Code EQU54-UF Code Onset Dates Condition Status SNOMED Code Problem Primary osteoarthritis of both knees M17.0 Active 408707240 Problem MITCHELL treated with BiPAP G47.33 Active 60943503 Problem Nocturnal hypoxia G47.34 Active 920042190 Problem Chronic prescription opiate use Z79.891 Active 602759379 Problem Chronic systolic (congestive) heart failure I50.22 Active 202591954 Problem Acute right-sided low back pain with right-sided sciatica M54.41 Active 60132877 Problem Posttraumatic stress disorder F43.10 Active 21326433 Problem Severe major depression with psychotic features F32.3 Active 22940121 Problem Mood disorder F39 Active 03704286 Problem Mild episode of recurrent major depressive disorder F33.0 Active 106546964 Problem Type 2 diabetes mellitus with diabetic polyneuropathy E11.42 Active 625163917 Problem Pure hypercholesterolemia E78.0 Active 892260138 Problem Chronic pain syndrome G89.4 Active 139965836 Problem Tobacco abuse Z72.0 Active 315705823 Problem Obesity, morbid, BMI 40.0-49.9 E66.01 Active 878904424 Problem BMI 45.0-49.9, adult Z68.42 Active 539237931 Problem Macrocytosis D75.89 Active 833667081 Problem Major depressive disorder, recurrent episode, unspecified severity F33.9 Active 82613158 Problem Gastroesophageal reflux disease, esophagitis presence not specified K21.9 Active 018185413 Problem History of DVT (deep vein thrombosis) Z86.718 Active 847943341 Problem Essential hypertension I10 Active 61321141 Problem History of weight loss surgery Z98.84 Active 620476048 Problem PTSD (post-traumatic stress disorder) F43.10 Active 07658251 Problem Non-ischemic cardiomyopathy I42.9 Active 89967599 Problem Chronic obstructive pulmonary disease, unspecified COPD type J44.9 Active 48282091 ALLERGIES Substance Reaction Event Type Date Status Trazodone HCl nausea and vomiting Drug Allergy Aug, Active Chantix nausea Drug Allergy Aug, Active ENCOUNTERS Encounter Location Date Diagnosis [place] [id number] [place] [address] Sep, [place] [id number] [place] [address] July, Medicare annual wellness visit, initial Z00.00 [place] [id number] [place] [address] May, [place] [id number] [place] [address] May, BMI 45.0-49.9, adult Z68.42 ; Mood disorder F39 and Posttraumatic stress disorder F43.10 [place] [id number] [place] [address] May, [place] [id number] [place] [address] May, Primary osteoarthritis of both knees M17.0 and Chronic pain syndrome G89.4 [place] [id number] [place] [address] May, Mood disorder F39 [place] [id number] [place] [address] Apr, Type 2 diabetes mellitus with diabetic polyneuropathy E11.42 [place] [id number] [address] Apr, [place] [id number] [place] [address] Apr, Primary osteoarthritis of both knees M17.0 and Chronic pain syndrome G89.4 [place] [id number] [place] [address] Apr, Mood disorder F39 [facility] [address], [place] [address] Mar, Mood disorder F39 and Posttraumatic stress disorder F43.10 [facility] [address], [place] [address] Mar, Primary osteoarthritis of both knees M17.0 and Chronic pain syndrome G89.4 [facility] [id number] [place] [address] Feb, Primary osteoarthritis of both knees M17.0 and Chronic pain syndrome G89.4 [facility] [id number] [place] [address] Feb, Mood disorder F39 [facility] [id number] [place] [address] Jan, Type 2 diabetes mellitus with diabetic polyneuropathy E11.42 ; Primary osteoarthritis of both knees M17.0 ; Mood disorder F39 ; Obesity, morbid, BMI 40.0-49.9 E66.01 ; Chronic prescription opiate use Z79.891 ; Acute suppurative otitis media of both ears without spontaneous rupture of tympanic membranes, recurrence not specified H66.003 and BMI 45.0-49.9, adult Z68.42 [facility] [id number] [place] [address] Jan, Primary osteoarthritis of both knees M17.0 and Chronic pain syndrome G89.4 [facility] [address], [place] [address] Dec, Mood disorder F39 and Posttraumatic stress disorder F43.10 [facility] [id number] [place] [address] Dec, Primary osteoarthritis of both knees M17.0 and Chronic pain syndrome G89.4 [facility] [address], [place] [address] Nov, Chronic pain syndrome G89.4 [facility] [address], [place] [address] 15 Nov, 2016 Primary osteoarthritis of both knees M17.0 and Chronic pain syndrome G89.4 [facility] [id number] [place] [address] 13 Nov, 2016 Type 2 diabetes mellitus with diabetic polyneuropathy E11.42 and Chronic pain syndrome G89.4 [facility] [id number] [place] [address] 12 Nov, 2016 Posttraumatic stress disorder F43.10 and Mood disorder F39 [facility] [id number] [place] [address] 18 Oct, 2016 Chronic pain syndrome G89.4 [facility] [id number] [place] [address] 16 Oct, 2016 Type 2 diabetes mellitus with diabetic polyneuropathy E11.42 ; BMI 45.0-49.9, adult Z68.42 ; Primary osteoarthritis of both knees M17.0 and Skin lesion L98.9 [facility] [id number] [place] [address] Oct, Chronic pain syndrome G89.4 [facility] [id number] [place] [address] Sep, Chronic pain syndrome G89.4 [facility] [address], [place] [address] Sep, [facility] [id number] [place] [address] Sep, Chronic pain syndrome G89.4 [facility] [id number] [place] [address] Aug, Chronic pain syndrome G89.4 [facility] [id number] [place] [address] Aug, [facility] [id number] [place] [address] Aug, Macrocytosis D75.89 and Pure hypercholesterolemia E78.0 [facility] [id number] [place] [address] Aug, Pure hypercholesterolemia E78.0 [facility] [id number] [place] [address] Aug, Macrocytosis D75.89 [facility] [id number] [place] [address] Aug, Pure hypercholesterolemia E78.0 ; Type 2 diabetes mellitus with diabetic polyneuropathy E11.42 ; MITCHELL treated with BiPAP G47.33 and Chronic pain syndrome G89.4 [place] [id number] [place] [address] Aug, [place] [id number] [place] [address] Aug, Hemorrhoids, unspecified hemorrhoid type K64.9 [facility] [id number] [place] [address] Aug, Chronic pain syndrome G89.4 ; Type 2 diabetes mellitus with diabetic polyneuropathy E11.42 ; Hemorrhoids, unspecified hemorrhoid type K64.9 ; Tobacco abuse Z72.0 and Primary osteoarthritis of both knees M17.0 [place] [id number] [place] [address] July, Chronic pain syndrome G89.4 [facility] [address], [place] [address] July, [facility] [id number] [place] [address] Jun, Chronic pain syndrome G89.4 [facility] [id number] [place] [address] Jun, Chronic pain syndrome G89.4 [facility] [id number] [place] [address] Jun, Severe major depression with psychotic features F32.3 and Posttraumatic stress disorder F43.10 [facility] [id number] [place] [address] Jun, Chronic pain syndrome G89.4 [facility] [id number] [place] [address] Jun, [facility] [address] [address] May, Chronic pain syndrome G89.4 [facility] [id number] [place] [address] May, Tobacco abuse Z72.0 [facility] [id number] [place] [address] May, [facility] [id number] [place] [address] Apr, Chronic pain syndrome G89.4 [facility] [id number] [place] [address] Apr, [facility] [address] [address] Apr, Right foot pain M79.671 [facility] [id number] [place] [address] Mar, Type 2 diabetes mellitus with diabetic polyneuropathy E11.42 ; MITCHELL treated with BiPAP G47.33 ; Pure hypercholesterolemia E78.0 ; Chronic pain syndrome G89.4 ; Tobacco abuse Z72.0 and Obesity, morbid, BMI 40.0-49.9 E66.01 [facility] [id number] [place] [address] Mar, [facility] [id number] [place] [address] Mar, [facility] [address] [address] Mar, [facility] [id number], [place] [address] Mar, [facility] [id number], [place] [address] Mar, [facility] [address], [place] [address] Mar, Severe major depression with psychotic features F32.3 and Posttraumatic stress disorder F43.10 [facility] [address] [facility] [id number] [address] Mar, [facility] [id number] [place] [address] Feb, [facility] [id number] [place] [address] Feb, [facility] [id number] [place] [address] Jan, [facility] [address], [place] [address] Jan, [facility] [id number] [place] [address] Dec, Posttraumatic stress disorder F43.10 and Severe major depression with psychotic features F32.3 [facility] [address], [place] [address] Dec, Type 2 diabetes mellitus with diabetic polyneuropathy E11.42 ; Chronic pain syndrome G89.4 and Acute right-sided low back pain with right-sided sciatica M54.41 [facility] [address], [place] [address] Dec, [facility] [id number], [place] [address] Dec, [facility] [address], [place] [address] Nov, [facility] [id number] [place] [address] Nov, [facility] [id number] [place] [address] Nov, [facility] [id number] [place] [address] Oct, [facility] [address] [address] Oct, [facility] [id number] [place] [address] Sep, Dental examination Z01.20 [facility] [id number] [place] [address] Sep, [facility] [id number] [place] [address] Sep, Type 2 diabetes mellitus with diabetic polyneuropathy E11.42 ; Chronic pain syndrome G89.4 ; Chronic prescription opiate use Z79.891 ; Injury of right index finger, sequela S69.91XS and Anejaculation N50.8 [facility] [id number] [place] [address] Aug, [facility] [id number] [place] [address] Aug, [facility] [id number] [place] [address] Aug, Cellulitis of finger of right hand L03.011 [facility] [address], [place] [address] July, [facility] [id number] [place] [address] July, [facility] [id number] [place] [address] Jun, Onychomycosis B35.1 [facility] [address], [place] [address] Jun, Severe major depression with psychotic features F32.3 and Posttraumatic stress disorder F43.10 [facility] [address], [place] [address] Jun, [facility] [address], [place] [address] Jun, [facility] [id number] [place] [address] Jun, [facility] [id number] [place] [address] May, Type 2 diabetes mellitus with diabetic polyneuropathy E11.42 [place] [id number] [place] [address] May, Type 2 diabetes mellitus with diabetic polyneuropathy E11.42 and Urinary hesitancy R39.11 [place] [id number] [place] [address] May, Type 2 diabetes mellitus with diabetic polyneuropathy E11.42 ; Left hip pain M25.552 and Benign prostatic hyperplasia with lower urinary tract symptoms, unspecified morphology N40.1 [place] [address], [place] [address] May, [place] [address] [place] [address] Apr, Severe major depression with psychotic features F32.3 and Posttraumatic stress disorder F43.10 [facility] [address], [place] [address] Apr, [facility] [id number] [place] [address] Mar, [facility] [address], [place] [address] Mar, Dysuria R30.0 and Urinary hesitancy R39.11 [facility] [address], [place] [address] Mar, Onychomycosis B35.1 [facility] [address] [place] [address] Mar, [facility] [address], [place] [address] Feb, [facility] [id number] [place] [address] Jan, [facility] [id number] [place] [address] Jan, Posttraumatic stress disorder F43.10 and Severe major depression with psychotic features F32.3 [facility] [id number] [place] [address] Jan, [facility] [id number] [place] [address] Jan, Chronic pain syndrome G89.4 ; Type 2 diabetes mellitus with diabetic polyneuropathy E11.42 ; Decreased pedal pulses R09.89 and Paresthesia of both hands R20.2 [facility] [address] [place] [address] Dec, Posttraumatic stress disorder F43.10 and Severe major depression with psychotic features F32.3 [facility] [address] [place] [address] Dec, [facility] [id number] [place] [address] Dec, [facility] [id number] [place] [address] Dec, Onychomycosis B35.1 [facility] [address], [place] [address] Dec, [facility] [id number] [place] [address] Dec, [facility] [id number] [place] [address] Nov, [facility] [id number] [place] [address] Oct, Depression, major, recurrent, moderate 296.32 and Posttraumatic stress disorder 309.81 [place] [address] [address] Oct, [facility] [id number] [place] [address] Oct, [place] [address] [address] Oct, [place] [address] [address] Sep, Posttraumatic stress disorder 309.81 and Depression, major, recurrent, moderate 296.32 [place] [id number] [place] [address] Sep, [address] [address] Sep, Chronic airway obstruction, not elsewhere classified [id number] [place] [address] Sep, Onychomycosis 110.1 and DM neuro manif type II 250.60 [place] [id number] [place] [address] Sep, Chronic pain 338.29 ; Chronic airway obstruction, not elsewhere classified 496 ; Osteoarthritis of knees, bilateral 715.96 and On potassium wasting diuretic therapy V58.[address] [address] Sep, Insect bites 919.4 ; Sinusitis 473.9 and GERD (gastroesophageal reflux disease) 530.[address] [address] Aug, Depression, major, recurrent, moderate 296.32 and Posttraumatic stress disorder 309.81 [facility] [address], [place] [address] Aug, [facility] [id number], [place] [address] Aug, [facility] [address], [place] [address] Aug, [facility] [id number], [place] [address] July, Major depressive disorder, recurrent episode, moderate 296.32 and Posttraumatic stress disorder 309.81 [facility] [address], [place] [address] July, [facility] [address], [place] [address] July, [facility] [address], [place] [address] July, [facility] [address], [place] [address] July, [facility] [address], [place] [address] Jun, [facility] [address], [place] [address] Jun, [facility] [address], [place] [address] May, [facility] [address], [place] [address] May, [facility] [address], [place] [address] May, [facility] [address], [place] [address] May, [facility] [place] [facility] [id number] [place] [address] May, 2014 [facility] [place] [facility] [address] [id number] [place] [address] May, [facility] [place] [facility] [address] [id number] [place] [address] May, [facility] [place] [facility] [address] [id number] [place] [address] May, [facility] [place] [facility] [address] [id number] [place] [address] May, [facility] [place] [facility] [address] [id number] [place] [address] Apr, 2014 [facility] [place] [facility] [address] [facility] [id number] [place] [address] Apr, 2014 [facility] [place] [facility] [address] [facility] [id number] [place] [address] Apr, 2014 [facility] [place] [facility] [address] [id number] [place] [address] Apr, 2014 [facility] [place] [facility] [address] [facility] [id number] [place] [address] Apr, [facility] [place] [facility] [address] [facility] [id number] [place] [address] Apr, 2014 [facility] [place] [facility] [address] [facility] [id number], [place] [address] Apr, 2014 [facility] [place] [facility] [address] [facility] [id number] [place] [address] Apr, [facility] [place] [facility] [address] [id number] [place] [address] Apr, [facility] [place] [facility] [address] [facility] [id number] [place] [address] Mar, [facility] [place] [facility] [address] [facility] [id number], [place] [address] 30 Mar, 2014 [facility] [place] [facility] [address] [id number] [place] [address] Mar, [facility] [place] [facility] [address] [id number] [place] [address] Mar, [facility] [place] [facility] [address] [id number] [place] [address] 15 Mar, 2014 [facility] [place] [facility] [address] [id number] [place] [address] 15 Mar, 2014 [facility] [place] [facility] [address] [id number] [place] [address] 15 Mar, 2014 [facility] [place] [facility] [address] [id number] [place] [address] 15 Mar, 2014 [facility] [place] [facility] [address] [id number] [place] [address] Mar, [facility] [place] [facility] [address] [id number] [place] [address] 15 Mar, 2014 [facility] [place] [facility] [address] [id number] [place] [address] Mar, [facility] [place] [facility] [address] [id number] [place] [address] Mar, [facility] [place] [facility] [address] [id number], [place] [address] Mar, [facility] [place] [facility] [address] [id number], [place] [address] Mar, [facility] [place] [facility] [address] [id number] [place] [address] Mar, [facility] [place] [facility] [address] [id number] [place] [address] 14 Mar, 2014 [facility] [place] [facility] [address] [id number] [place] [address] 09 Mar, 2014 [facility] [place] [facility] [address] [id number] [place] [address] Mar, [facility] [place] [facility] [address] [id number] [place] [address] 16 Feb, 2014 [facility] [place] [facility] [address] [id number] [place] [address] 16 Feb, 2014 [facility] [place] [facility] [address] [id number] [place] [address] 15 Feb, 2014 [facility] [place] [facility] [address] [id number] [place] [address] 15 Feb, 2014 [facility] [place] [facility] [address] [id number] [place] [address] Feb, [facility] [place] [facility] [address] [id number] [place] [address] Feb, [facility] [place] [facility] [address] [id number] [place] [address] Jan, [facility] [place] [facility] [address] [id number] [place] [address] Jan, [facility] [place] [facility] [address] [id number] [place] [address] Jan, [facility] [place] [facility] [address] [id number] [place] [address] Jan, [facility] [place] [facility] [address] [id number] [place] [address] Jan, [facility] [place] [facility] [address] [id number] [place] [address] Jan, [facility] [place] [facility] [address] [id number] [place] [address] Jan, [facility] [place] [facility] [address] [id number] [place] [address] Jan, [facility] [place] [facility] [address] [id number] [place] [address] Jan, [facility] [place] [facility] [address] [id number] [place] [address] Jan, [facility] [place] [facility] [address] [id number] [place] [address] Dec, [facility] [place] [facility] [address] [id number] [place] [address] Dec, [facility] [place] [facility] [address] [id number] [place] [address] Dec, [facility] [place] [facility] [address] [id number] [place] [address] Dec, [facility] [place] [facility] [address] [id number] [place] [address] Nov, [facility] [place] [facility] [address] [id number] [place] [address] Nov, [facility] [place] [facility] [address] [id number] [place] [address] Nov, [facility] [place] [facility] [address] [id number] [place] [address] Nov, [facility] [place] [facility] [address] [id number] [place] [address] Nov, [facility] [place] [facility] [address] [id number] [place] [address] Nov, [facility] [place] [facility] [address] [id number], [place] [address] Oct, [facility] [place] [facility] [address] [id number] [place] [address] Oct, [facility] [place] [facility] [address] [id number] [place] [address] Oct, [facility] [place] [facility] [address] [id number] [place] [address] Oct, [facility] [place] [facility] [address] [id number] [place] [address] Sep, [facility] [place] [facility] [address] [id number] [place] [address] Sep, [facility] [place] [facility] [address] [id number] [place] [address] Sep, [facility] [place] [facility] [address] [id number] [place] [address] Sep, [facility] [place] [facility] [address] [id number] [place] [address] Sep, [facility] [place] [facility] [address] [id number] [place] [address] Sep, [facility] [place] [facility] [address] [id number] [place] [address] July, [facility] [place] [facility] [address] [id number] [place] [address] July, [facility] [place] [facility] [address] [id number] [place] [address] July, [facility] [place] [facility] [address] [id number] [place] [address] July, [facility] [place] [facility] [address] [id number] [place] [address] Jun, [facility] [place] [facility] [address] [id number] [place] [address] Jun, [facility] [place] [facility] [address] [id number] [place] [address] Jun, [facility] [place] [facility] [address] [id number] [place] [address] Jun, [facility] [place] [facility] [address] [id number] [place] [address] Jun, [facility] [place] [facility] [address] [id number] [place] [address] Jun, [facility] [place] [facility] [address] [id number] [place] [address] May, [facility] [place] [facility] [address] [id number] [place] [address] May, [facility] [place] [facility] [address] [id number] [place] [address] Apr, [facility] [place] [facility] [address] [id number] [place] [address] Apr, [facility] [place] [facility] [address] [id number] [place] [address] Apr, [facility] [place] [facility] [address] [id number] [place] [address] Apr, [facility] [place] [facility] [address] [id number] [place] [address] Apr, [facility] [place] [facility] [address] [id number] [place] [address] Apr, [facility] [place] [facility] [address] [id number] [place] [address] Apr, [facility] [place] [facility] [address] [id number] [place] [address] Mar, [facility] [place] [facility] [address] [id number] [place] [address] Mar, [facility] [place] [facility] [address] [id number] [place] [address] Mar, [facility] [place] [facility] [address] [id number] [place] [address] Mar, [facility] [place] [facility] [address] [id number] [place] [address] Mar, [facility] [place] [facility] [address] [id number] [place] [address] Mar, [facility] [place] [facility] [address] [id number] [place] [address] Mar, [facility] [address] [id number] [place] [address] Mar, [facility] [place] [facility] [address] [id number] [place] [address] Feb, [facility] [address] [id number] [place] [address] Feb, [facility] [place] [facility] [address] [id number] [place] [address] Feb, [facility] [address] [id number] [place] [address] Feb, [facility] [place] [facility] [address] [id number] [place] [address] Feb, [facility] [address] [id number] [place] [address] Feb, [facility] [place] [facility] [address] [id number] [place] [address] Feb, [facility] [address] [id number] [place] [address] Jan, [facility] [address] [id number] [place] [address] Jan, [facility] [address] [id number] [place] [address] Jan, [facility] [place] [facility] [address] [id number], [place] [address] Jan, [facility] [place] [facility] [address] [id number], [place] [address] Jan, [facility] [place] [facility] [address] [id number], [place] [address] Jan, [facility] [address] [id number] [address] Jan, [facility] [place] [facility] [address] [id number] [place] [address] 04 Jan, 2013 [facility] [place] [facility] [address] [id number] [place] [address] Dec, 2012 [facility] [place] [facility] [address] [id number] [place] [address] Dec, 2012 [facility] [place] [facility] [address] [id number] [place] [address] Dec, 2012 [facility] [place] [facility] [address] [id number] [place] [address] Dec, 2012 [facility] [place] [facility] [address] [id number] [place] [address] Dec, [facility] [place] [facility] [address] [id number] [place] [address] Dec, [facility] [place] [facility] [address] [id number] [place] [address] Dec, [facility] [address] [id number] [place] [address] Dec, [facility] [place] [facility] [address] [id number] [place] [address] Dec, [facility] [place] [facility] [address] [id number] [place] [address] Dec, [facility] [place] [facility] [address] [id number] [place] [id number] 27 Nov, 2012 [facility] [place] [facility] [address] [id number] [id number] 27 Nov, 2012 [facility] [place] [facility] [address] [id number] [place] [address] 24 Nov, 2012 [facility] [place] [facility] [address] [id number] [place] [address] 20 Nov, 2012 [facility] [place] [facility] [address] [id number], [place] [address] Nov, [facility] [place] [facility] [address] [id number] [place] [address] Nov, [facility] [place] [facility] [address] [id number] [place] [address] Nov, [facility] [place] [facility] [address] [id number] [place] [address] Nov, [facility] [place] [facility] [address] [id number] [place] [address] Oct, [facility] [address] [id number] [place] [address] Oct, [facility] [place] [facility] [address] [id number] [place] [address] Oct, [facility] [address] [id number] [place] [address] Sep, [facility] [place] [facility] [address] [id number] [place] [address] Sep, [facility] [place] [facility] [address] [id number] [place] [address] Sep, [facility] [place] [facility] [address] [id number] [place] [address] Sep, [facility] [place] [facility] [address] [id number] [place] [address] Sep, [facility] [place] [facility] [address] [id number] [place] [address] Aug, [facility] [place] [facility] [address] [id number] [place] [address] Aug, [facility] [place] [facility] [address] [id number] [place] [address] Aug, [facility] [place] [facility] [address] [id number] [place] [address] Aug, [facility] [place] [facility] [address] [id number] [place] [address] Aug, [facility] [address] [id number] [place] [address] Aug, [facility] [address] [id number] [place] [address] July, [facility] [address] [id number] [place] [address] July, [facility] [place] [facility] [address] [id number] [place] [address] July, [facility] [address] [id number] [place] [address] July, [facility] [address] [id number] [place] [address] July, [facility] [address] [id number] [place] [address] July, [facility] [address] [id number] [place] [address] Jun, [facility] [address] [id number] [place] [address] Jun, [facility] [place] [facility] [address] [id number] [place] [address] Jun, [facility] [address] [id number] [place] [address] Jun, [facility] [place] [facility] [address] [id number] [place] [address] May, [facility] [place] [facility] [address] [id number] [place] [address] May, [facility] [place] [facility] [address] [id number] [place] [address] May, [facility] [place] [facility] [address] [id number] [place] [address] Apr, [facility] [place] [facility] [address] [id number] [place] [address] 21 Mar, 2012 [facility] [address] [id number] [place] [address] 18 Mar, 2012 [facility] [place] [facility] [address] [id number] [place] [address] 17 Mar, 2012 [facility] [address] [id number] [place] [address] 16 Mar, 2012 [facility] [place] [facility] [address] [id number] [place] [address] 15 Mar, 2012 [facility] [address] [id number] [place] [address] Feb, [facility] [address] [id number] [place] [address] Feb, [facility] [address] [id number] [place] [address] Feb, [facility] [address] [id number] [place] [address] 17 Feb, 2012 [facility] [address] [id number] [place] [address] Jan, [facility] [address] [id number] [place] [address] Jan, [facility] [place] [facility] [address] [id number] [place] [address] Jan, [facility] [place] [facility] [address] [id number] [place] [address] Jan, [facility] [place] [facility] [address] [id number] [place] [address] Dec, [facility] [place] [facility] [address] [id number] [place] [address] Dec, [facility] [place] [facility] [address] [id number] [place] [address] Nov, [facility] [address] [id number] [place] [address] Oct, [facility] [address] [id number] [place] [address] Oct, [facility] [address] [id number] [place] [address] Oct, [facility] [address] [id number] [place] [address] Oct, [facility] [address] [id number] [place] [address] Oct, [facility] [address] [id number] [place] [address] Sep, [facility] [address] [id number] [place] [address] Sep, [facility] [address] [facility] [id number] [place] [address] Aug, [facility] [address] [place] [id number] Aug, [facility] [address] [id number] [place] [address] Aug, [facility] [address] [id number] [place] [address] July, [facility] [address] [id number] [place] [address] July, [facility] [address] [id number] [place] [address] Jun, [facility] [place] [facility] [address] [id number] [place] [address] Jun, [facility] [address] [id number] [place] [address] Jun, [facility] [address] [id number] [place] [address] Jun, [facility] [address] [id number] [place] [address] 15 Apr, 2011 [facility] [address] [id number] [place] [address] 15 Apr, 2011 [facility] [address] [id number] [place] [address] Apr, [facility] [address] [id number] [place] [address] Mar, [facility] [address] [id number] [place] [address] Mar, [facility] [address] [id number] [place] [address] Mar, [facility] [address] [id number] [place] [address] Mar, [facility] [address] [id number] [place] [address] Mar, [facility] [address] [id number] [place] [address] Jan, [facility] [address] [id number] [place] [address] Jan, [facility] [address] [id number], [place] [address] Jan, [facility] [place] [facility] [address] [id number], [place] [address] Mar, [facility] [place] [facility] [address] [id number] [place] [address] Mar, [facility] [place] [facility] [address] [id number] [place] [address] Feb, [facility] [place] [facility] [address] [id number] [place] [address] 16 Feb, 2010 [facility] [place] [facility] [id number], [place] [address] 16 Feb, 2010 [facility] [id number], [place] [address] Jan, [facility] [id number], [place] [address] Jan, [facility] [id number], [place] [address] Dec, [facility] [id number], [place] [address] Dec, [facility] [id number] [place] [address] May, [facility] [id number], [place] [address] Apr, [facility] [id number] [place] [address] Feb, [facility] [id number], [place] [address] Feb, [facility] [id number], [place] [address] Jan, [facility] [id number], [place] [address] Jan, [facility] [id number], [place] [address] Jan, [facility] [address] [id number], [place] [address] Jan, [facility] [id number], [place] [address] Jan, IMMUNIZATIONS No Known Immunizations SOCIAL HISTORY Never Assessed REASON FOR VISIT Pain management (chronic)-CAMELIA Fitzpatrick PLAN OF CARE Activity Details Follow Up 3 Months Reason:Chronic pain VITAL SIGNS Height 66 in 2016-08-13 Weight 294 lbs 2016-08-13 Temperature 98.5 degrees Fahrenheit 2016-08-13 Heart Rate 80 bpm 2016-08-13 Respiratory Rate 20 2016-08-13 BMI 47.45 kg/m2 2016-08-13 Blood pressure systolic 118 mmHg 2016-08-13 Blood pressure diastolic 80 mmHg 2016-08-13 MEDICATIONS Medication Instructions Dosage Frequency Start Date End Date Duration Status Ibuprofen 800 MG Orally Three times a day 1 tablet as needed 8h Oct, 90 days Active MS Contin 30 MG Orally every 12 hrs 1 tablet 12h Mar, 28 days Active Ventolin HFA 108 (90 Base) MCG/ACT Inhalation every 4 hrs 2 puffs as needed 4h Mar, Active Lidocaine-Hydrocortisone Romain 3-0.5 % Rectal Twice a day 1 application 12h Aug, Sep, 30 day(s) Active Hydrocodone-Acetaminophen 5-325 MG Orally every 6 hrs 1 tablet as needed 6h Aug, 28 days Active Pataday 0.2 % Ophthalmic 2 times a day 1 drop to affected eyes 12h Mar, Active Victoza 18 MG/3ML Subcutaneous Once a day 1.2 mg 24h Aug, Active Invega 6 MG Orally Once a day 2 tablets 24h 30 days Active HydrOXYzine Pamoate 50 MG Orally once a day at bedtime 1 or 2 capsules as needed Jun, 30 day(s) Active Pantoprazole Sodium 40 MG Orally Once a day 1 tablet 24h 30 Active BusPIRone HCl 15 MG Orally as needed Twice a day 1 tablet 12h Mar, 30 days Active Klonopin 1 MG Orally as needed Twice a day 1 tablet 12h 30 days Active Pen Ary 31G X 6 MM as directed 24h May, Active Gabapentin 600 MG Orally 3 times a day 2 tablets 8h 30 days Active Metformin HCl 500 MG Orally Twice a day 1 tablet with meals 12h Active Cyclobenzaprine HCl 10 MG TAKE ONE TABLET BY MOUTH THREE TIMES DAILY NEEDED 10 Active Prozac 40 MG Orally Once a day 1 capsule in the morning 24h 30 days Active Insulin Syringe 31G X 5/16" 1 ML subcutaneously Once a day as directed 24h Aug, Active Prozac 10 MG Orally Once a day 1 capsule in the morning 24h Jun, 30 day(s) Active RESULTS Name Result Date Reference Range [employer] 2016-08-13 PROCEDURES Procedure Date Ordered Result Body Site No Charge August 13, 2016 [facility] VISIT ESTABLISHED PATIENT August 13, 2016 INSTRUCTIONS MEDICATIONS ADMINISTERED No Known Medications MEDICAL [...]
--- OUTSIDE RECORDS SUMMARY | 2018-10-04 06:52 | XMS REPORT ---
Author Author KATHY ESTHER [facility] Address [address] [place] [address] Care Team Providers Care Lead Technologist In Cytogenetics Name Role Phone KATHYBRIAN VILLEGASY Unavailable PROBLEMS Type Condition ICD9-CM Code XKA32-QT Code Onset Dates Condition Status SNOMED Code Problem Primary osteoarthritis of both knees M17.0 Active 313618417 Problem MITCHELL treated with BiPAP G47.33 Active 84698071 Problem Nocturnal hypoxia G47.34 Active 516748585 Problem Chronic prescription opiate use Z79.891 Active 886730597 Problem Chronic systolic (congestive) heart failure I50.22 Active 837320903 Problem Acute right-sided low back pain with right-sided sciatica M54.41 Active 68025051 Problem Posttraumatic stress disorder F43.10 Active 01607380 Problem Severe major depression with psychotic features F32.3 Active 80379678 Problem Mood disorder F39 Active 79953843 Problem Mild episode of recurrent major depressive disorder F33.0 Active 739250107 Problem Type 2 diabetes mellitus with diabetic polyneuropathy E11.42 Active 203042825 Problem Pure hypercholesterolemia E78.0 Active 741060325 Problem Chronic pain syndrome G89.4 Active 131395578 Problem Tobacco abuse Z72.0 Active 048087221 Problem Obesity, morbid, BMI 40.0-49.9 E66.01 Active 965301607 Problem BMI 45.0-49.9, adult Z68.42 Active 841058662 Problem Macrocytosis D75.89 Active 618128672 Problem Major depressive disorder, recurrent episode, unspecified severity F33.9 Active 02762780 Problem Gastroesophageal reflux disease, esophagitis presence not specified K21.9 Active 334481989 Problem History of DVT (deep vein thrombosis) Z86.718 Active 574453463 Problem Essential hypertension I10 Active 20762557 Problem History of weight loss surgery Z98.84 Active 346536760 Problem PTSD (post-traumatic stress disorder) F43.10 Active 49515683 Problem Non-ischemic cardiomyopathy I42.9 Active 66604895 Problem Chronic obstructive pulmonary disease, unspecified COPD type J44.9 Active 33650627 ALLERGIES No Information SOCIAL HISTORY Never Assessed PLAN OF CARE VITAL SIGNS MEDICATIONS Medication Instructions Dosage Frequency Start Date End Date Duration Status MS Contin 30 MG Orally every 12 hrs 1 tablet 12h 31 Mar, 2016 28 days Active RESULTS No Results PROCEDURES No Known procedures IMMUNIZATIONS No Known Immunizations MEDICAL (GENERAL) HISTORY Type Description Date Medical [...] History gastric sleeve ( [facility]) 03/2013 Hospitalization History ED then admitted to [facility]-cardiac stepdown-chest pain 02/2010 Hospitalization History Possible DVT-sono negative 06/2010 Hospitalization History cellulitis to bilat legs
--- OUTSIDE RECORDS SUMMARY | 2018-10-04 06:52 | XMS REPORT ---
Author Author GAIL TORRES Organization [employer] Address Unknown Phone Unavailable Care Team Providers Care Personal Consultant Name Role Phone GAIL TORRES CP Unavailable Allergies No Known Allergies Problems [...] Instructions Start Date End Date Status Dosage MS Contin [facility] [address]-69 30 MG Orally Once a day in the evening- appt needed before due for next refill Oct 22, 2014 1 tablet MS Contin [facility] [address]-91 15 MG Orally Once a day in the am- appt needed before due for next refill Oct 22, 2014 1 tablet Hydrocodone-Acetaminophen [facility] [address]-43 5-325 MG Orally every 6 hrs Jan 16, 2016 1 tablet as needed Results No Known Results Summary Purpose [employer] Submission
--- OUTSIDE RECORDS SUMMARY | 2018-10-04 06:53 | XMS REPORT ---
Author Author KATHY ESTHER [facility] Address [address] [place] [address] Care Team Providers Care Stone Driller Name Role Phone KATHYBRIAN VILLEGASY Unavailable PROBLEMS Type Condition ICD9-CM Code [id number] Code Onset Dates Condition Status SNOMED Code Problem Primary osteoarthritis of both knees M17.0 Active 730474972 Problem MITCHELL treated with BiPAP G47.33 Active 09698985 Problem Nocturnal hypoxia G47.34 Active 271908412 Problem Chronic prescription opiate use Z79.891 Active 739331848 Problem Chronic systolic (congestive) heart failure I50.22 Active 403921500 Problem Acute right-sided low back pain with right-sided sciatica M54.41 Active 75435301 Problem Posttraumatic stress disorder F43.10 Active 58776651 Problem Severe major depression with psychotic features F32.3 Active 49765617 Problem Mood disorder F39 Active 39484986 Problem Mild episode of recurrent major depressive disorder F33.0 Active 144785287 Problem Type 2 diabetes mellitus with diabetic polyneuropathy E11.42 Active 388289693 Problem Pure hypercholesterolemia E78.0 Active 233896256 Problem Chronic pain syndrome G89.4 Active 606044627 Problem Tobacco abuse Z72.0 Active 906550952 Problem Obesity, morbid, BMI 40.0-49.9 E66.01 Active 043301155 Problem BMI 45.0-49.9, adult Z68.42 Active 468513428 Problem Macrocytosis D75.89 Active 086685915 Problem Major depressive disorder, recurrent episode, unspecified severity F33.9 Active 20878468 Problem Gastroesophageal reflux disease, esophagitis presence not specified K21.9 Active 916962515 Problem History of DVT (deep vein thrombosis) Z86.718 Active 898089603 Problem Essential hypertension I10 Active 19013825 Problem History of weight loss surgery Z98.84 Active 701000494 Problem PTSD (post-traumatic stress disorder) F43.10 Active 36557929 Problem Non-ischemic cardiomyopathy I42.9 Active 57196869 Problem Chronic obstructive pulmonary disease, unspecified COPD type J44.9 Active 76866228 ALLERGIES No Information ENCOUNTERS Encounter Location Date Diagnosis [facility] [id number], [place] [address] Sep, [facility] [id number] [place] [address] July, [facility] [id number] [place] [address] July, Medicare annual wellness visit, initial Z00.00 [facility] [id number] [place] [address] 09 Jun, 2017 Infection of right ear H66.91 ; Wheezing on auscultation R06.2 and BMI 45.0-49.9, adult Z68.42 [facility] [id number] [place] [address] Jun, [facility] [id number] [place] [address] Jun, Primary osteoarthritis of both knees M17.0 and Chronic pain syndrome G89.4 [facility] [id number] [place] [address] May, [facility] [id number] [address] May, BMI 45.0-49.9, adult Z68.42 ; Mood disorder F39 and Posttraumatic stress disorder F43.10 [facility] [address], [place] [address] May, [facility] [id number] [place] [address] May, Primary osteoarthritis of both knees M17.0 and Chronic pain syndrome G89.4 [facility] [address], [place] [address] May, Mood disorder F39 [facility] [address], [place] [address] Apr, Type 2 diabetes mellitus with diabetic polyneuropathy E11.42 [facility] [address], [place] [address] Apr, [facility] [address], [place] [address] Apr, Primary osteoarthritis of both knees M17.0 and Chronic pain syndrome G89.4 [facility] [id number] [place] [address] Apr, Mood disorder F39 [facility] [id number] [place] [address] Mar, Mood disorder F39 and Posttraumatic stress disorder F43.10 [facility] [id number] [place] [address] Mar, Primary osteoarthritis of both knees M17.0 and Chronic pain syndrome G89.4 [facility] [address], [place] [address] Feb, Primary osteoarthritis of both knees M17.0 and Chronic pain syndrome G89.4 [facility] [address], [place] [address] Feb, Mood disorder F39 [facility] [address], [place] [address] Jan, Type 2 diabetes mellitus with diabetic polyneuropathy E11.42 ; Primary osteoarthritis of both knees M17.0 ; Mood disorder F39 ; Obesity, morbid, BMI 40.0-49.9 E66.01 ; Chronic prescription opiate use Z79.891 ; Acute suppurative otitis media of both ears without spontaneous rupture of tympanic membranes, recurrence not specified H66.003 and BMI 45.0-49.9, adult Z68.42 [facility] [address], [place] [address] Jan, Primary osteoarthritis of both knees M17.0 and Chronic pain syndrome G89.4 [facility] [address], [place] [address] Dec, Mood disorder F39 and Posttraumatic stress disorder F43.10 [facility] [id number] [place] [address] 13 Dec, 2016 Primary osteoarthritis of both knees M17.0 and Chronic pain syndrome G89.4 [facility] [id number] [place] [address] 18 Nov, 2016 Chronic pain syndrome G89.4 [facility] [id number] [place] [address] 15 Nov, 2016 Primary osteoarthritis of both knees M17.0 and Chronic pain syndrome G89.4 [facility] [id number] [place] [address] 13 Nov, 2016 Type 2 diabetes mellitus with diabetic polyneuropathy E11.42 and Chronic pain syndrome G89.4 [facility] [id number] [place] [address] 12 Nov, 2016 Posttraumatic stress disorder F43.10 and Mood disorder F39 [facility] [id number] [place] [address] Oct, Chronic pain syndrome G89.4 [facility] [address] [place] [address] Oct, Type 2 diabetes mellitus with diabetic polyneuropathy E11.42 ; BMI 45.0-49.9, adult Z68.42 ; Primary osteoarthritis of both knees M17.0 and Skin lesion L98.9 [facility] [id number] [place] [address] 09 Oct, 2016 Chronic pain syndrome G89.4 [facility] [id number] [place] [address] Sep, Chronic pain syndrome G89.4 [facility] [id number] [place] [address] Sep, [facility] [id number] [place] [address] Sep, Chronic pain syndrome G89.4 [facility] [id number] [place] [address] Aug, Chronic pain syndrome G89.4 [facility] [address] [address] Aug, [facility] [id number] [place] [address] Aug, Macrocytosis D75.89 and Pure hypercholesterolemia E78.0 [facility] [id number] [place] [address] Aug, Pure hypercholesterolemia E78.0 [facility] [id number] [place] [address] Aug, Macrocytosis D75.89 [facility] [id number] [place] [address] Aug, Pure hypercholesterolemia E78.0 ; Type 2 diabetes mellitus with diabetic polyneuropathy E11.42 ; MITCHELL treated with BiPAP G47.33 and Chronic pain syndrome G89.4 [facility] [id number] [place] [address] Aug, [facility] [id number] [place] [address] Aug, Hemorrhoids, unspecified hemorrhoid type K64.9 [facility] [id number] [place] [address] Aug, Chronic pain syndrome G89.4 ; Type 2 diabetes mellitus with diabetic polyneuropathy E11.42 ; Hemorrhoids, unspecified hemorrhoid type K64.9 ; Tobacco abuse Z72.0 and Primary osteoarthritis of both knees M17.0 [facility] [id number] [place] [address] July, Chronic pain syndrome G89.4 [facility] [id number] [place] [address] July, [facility] [id number] [place] [address] Jun, Chronic pain syndrome G89.4 [facility] [id number] [place] [address] Jun, Chronic pain syndrome G89.4 [facility] [id number] [place] [address] Jun, Severe major depression with psychotic features F32.3 and Posttraumatic stress disorder F43.10 [facility] [id number] [place] [address] Jun, Chronic pain syndrome G89.4 [facility] [id number] [place] [address] Jun, [facility] [id number] [place] [address] May, Chronic pain syndrome G89.4 [facility] [id number] [place] [address] May, Tobacco abuse Z72.0 [facility] [id number] [place] [address] May, [facility] [id number] [place] [address] Apr, Chronic pain syndrome G89.4 [facility] [id number] [place] [address] Apr, [facility] [id number] [place] [address] Apr, Right foot pain M79.671 [facility] [id number] [place] [address] Mar, Type 2 diabetes mellitus with diabetic polyneuropathy E11.42 ; MITCHELL treated with BiPAP G47.33 ; Pure hypercholesterolemia E78.0 ; Chronic pain syndrome G89.4 ; Tobacco abuse Z72.0 and Obesity, morbid, BMI 40.0-49.9 E66.01 [facility] [id number] [place] [address] Mar, [facility] [id number] [place] [address] Mar, [facility] [id number] [place] [address] Mar, [facility] [id number] [place] [address] Mar, [facility] [id number] [place] [address] Mar, [facility] [id number] [place] [address] Mar, Severe major depression with psychotic features F32.3 and Posttraumatic stress disorder F43.10 [facility] [id number] [place] [address] Mar, [facility] [id number] [place] [address] Feb, [facility] [id number] [place] [address] Feb, [facility] [id number] [place] [address] Jan, [facility] [id number] [place] [address] Jan, [facility] [id number] [place] [address] Dec, Posttraumatic stress disorder F43.10 and Severe major depression with psychotic features F32.3 [facility] [id number] [place] [address] Dec, Type 2 diabetes mellitus with diabetic polyneuropathy E11.42 ; Chronic pain syndrome G89.4 and Acute right-sided low back pain with right-sided sciatica M54.41 [facility] [id number] [place] [address] Dec, [facility] [id number] [place] [address] Dec, [facility] [id number] [place] [address] Nov, [facility] [id number] [place] [address] Nov, [facility] [id number] [place] [address] Nov, [facility] [id number] [place] [address] Oct, [facility] [id number] [place] [address] Oct, [facility] [id number] [place] [address] Sep, Dental examination Z01.20 [facility] [id number] [place] [address] Sep, [facility] [id number] [place] [address] Sep, Type 2 diabetes mellitus with diabetic polyneuropathy E11.42 ; Chronic pain syndrome G89.4 ; Chronic prescription opiate use Z79.891 ; Injury of right index finger, sequela S69.91XS and Anejaculation N50.8 [facility] [id number] [place] [address] Aug, [facility] [id number] [place] [address] Aug, [facility] [address], [place] [address] Aug, Cellulitis of finger of right hand L03.011 [facility] [address], [place] [address] July, [facility] [address], [place] [address] July, [facility] [id number] [place] [address] Jun, Onychomycosis B35.1 [facility] [id number] [place] [address] Jun, Severe major depression with psychotic features F32.3 and Posttraumatic stress disorder F43.10 [facility] [address], [place] [address] Jun, [facility] [id number] [place] [address] Jun, [facility] [address], [place] [address] Jun, [facility] [address], [place] [address] May, Type 2 diabetes mellitus with diabetic polyneuropathy E11.42 [facility] [address], [place] [address] May, Type 2 diabetes mellitus with diabetic polyneuropathy E11.42 and Urinary hesitancy R39.11 [facility] [address], [place] [address] May, Type 2 diabetes mellitus with diabetic polyneuropathy E11.42 ; Left hip pain M25.552 and Benign prostatic hyperplasia with lower urinary tract symptoms, unspecified morphology N40.1 [facility] [address], [place] [address] May, [facility] [id number] [place] [address] Apr, Severe major depression with psychotic features F32.3 and Posttraumatic stress disorder F43.10 [facility] [id number] [place] [address] 08 Apr, 2015 [facility] [id number] [place] [address] Mar, [facility] [id number] [place] [address] Mar, Dysuria R30.0 and Urinary hesitancy R39.11 [facility] [id number] [place] [address] Mar, Onychomycosis B35.1 [facility] [id number] [place] [address] Mar, [facility] [id number] [place] [address] Feb, [facility] [address] [place] [address] Jan, [facility] [id number] [place] [address] Jan, Posttraumatic stress disorder F43.10 and Severe major depression with psychotic features F32.3 [facility] [id number] [place] [address] Jan, [facility] [id number] [place] [address] Jan, Chronic pain syndrome G89.4 ; Type 2 diabetes mellitus with diabetic polyneuropathy E11.42 ; Decreased pedal pulses R09.89 and Paresthesia of both hands R20.2 [facility] [address], [place] [address] 28 Dec, 2014 Posttraumatic stress disorder F43.10 and Severe major depression with psychotic features F32.3 [facility] [address], [place] [address] Dec, [facility] [id number] [place] [address] Dec, [facility] [address], [place] [address] Dec, Onychomycosis B35.1 [facility] [id number] [place] [address] Dec, [facility] [id number] [place] [address] Dec, [facility] [id number] [place] [address] Nov, [facility] [id number] [place] [address] Oct, Depression, major, recurrent, moderate 296.32 and Posttraumatic stress disorder 309.81 [facility] [address], [place] [address] Oct, [facility] [id number] [place] [address] Oct, [facility] [address], [place] [address] Oct, [facility] [id number] [place] [address] Sep, Posttraumatic stress disorder 309.81 and Depression, major, recurrent, moderate 296.32 [facility] [address], [place] [address] Sep, [facility] [id number] [place] [address] Sep, Chronic airway obstruction, not elsewhere classified 496 [facility] [address], [place] [address] Sep, Onychomycosis 110.1 and DM neuro manif type II 250.60 [facility] [id number] [place] [address] Sep, Chronic pain 338.29 ; Chronic airway obstruction, not elsewhere classified 496 ; Osteoarthritis of knees, bilateral 715.96 and On potassium wasting diuretic therapy V58.69 [facility] [id number] [place] [address] Sep, Insect bites 919.4 ; Sinusitis 473.9 and GERD (gastroesophageal reflux disease) 530.81 [facility] [id number] [place] [address] Aug, Depression, major, recurrent, moderate 296.32 and Posttraumatic stress disorder 309.81 [facility] [id number] [place] [address] Aug, [facility] [address] [address] Aug, [facility] [id number] [place] [address] Aug, [facility] [id number] [place] [address] July, Major depressive disorder, recurrent episode, moderate 296.32 and Posttraumatic stress disorder 309.81 [facility] [id number] [place] [address] July, [facility] [id number] [place] [address] July, [facility] [id number] [place] [address] July, [facility] [id number] [place] [address] July, [facility] [id number] [place] [address] Jun, [facility] [id number] [place] [address] 13 Jun, 2014 [facility] [place] [facility] [address] [id number] [place] [address] 20 May, 2014 [facility] [place] [facility] [address] [id number] [place] [address] 20 May, 2014 [facility] [place] [facility] [address] [facility] [id number] [place] [address] 18 May, 2014 [facility] [place] [facility] [address] [id number] [place] [address] 18 May, 2014 [facility] [place] [facility] [address] [id number] [place] [address] 18 May, 2014 [facility] [place] [facility] [address] [facility] [id number] [place] [address] 18 May, 2014 [facility] [place] [facility] [address] [facility] [id number] [place] [address] May, [facility] [place] [facility] [address] [facility] [id number] [place] [address] 04 May, 2014 [facility] [place] [facility] [address] [facility] [id number] [place] [address] May, [facility] [place] [facility] [address] [facility] [id number] [place] [address] Apr, 2014 [facility] [place] [facility] [address] [facility] [id number] [place] [address] Apr, 2014 [facility] [place] [facility] [address] [facility] [id number] [place] [address] Apr, 2014 [facility] [place] [facility] [address] [id number] [place] [address] Apr, 2014 [facility] [place] [facility] [address] [facility] [id number] [place] [address] Apr, 2014 [facility] [place] [facility] [address] [facility] [id number], [place] [address] Apr, 2014 [facility] [place] [facility] [address] [id number] [place] [address] Apr, [facility] [place] [facility] [address] [id number] [place] [address] Apr, [facility] [place] [facility] [address] [id number] [place] [address] Apr, [facility] [place] [facility] [address] [id number] [place] [address] Mar, [facility] [place] [facility] [address] [id number] [place] [address] Mar, [facility] [place] [facility] [address] [id number] [place] [address] Mar, [facility] [place] [facility] [address] [id number] [place] [address] Mar, [facility] [place] [facility] [address] [id number], [place] [address] Mar, [facility] [place] [facility] [address] [id number] [place] [address] Mar, [facility] [place] [facility] [address] [id number], [place] [address] Mar, [facility] [place] [facility] [address] [id number], [place] [address] Mar, [facility] [place] [facility] [address] [id number], [place] [address] Mar, [facility] [place] [facility] [address] [id number] [place] [address] Mar, [facility] [place] [facility] [address] [id number], [place] [address] 14 Mar, 2014 [facility] [place] [facility] [address] [id number], [place] [address] 14 Mar, 2014 [facility] [place] [facility] [address] [id number], [place] [address] 14 Mar, 2014 [facility] [place] [facility] [address] [id number] [place] [address] 14 Mar, 2014 [facility] [place] [facility] [address] [id number] [place] [address] 14 Mar, 2014 [facility] [place] [facility] [address] [facility] [id number] [place] [address] Mar, [facility] [place] [facility] [address] [id number] [place] [address] 09 Mar, 2014 [facility] [place] [facility] [address] [id number] [place] [address] Mar, [facility] [place] [facility] [address] [id number] [place] [address] 16 Feb, 2014 [facility] [place] [facility] [address] [facility] [id number] [place] [address] 16 Feb, 2014 [facility] [place] [facility] [address] [id number] [place] [address] 15 Feb, 2014 [facility] [place] [facility] [address] [id number] [place] [address] 15 Feb, 2014 [facility] [place] [facility] [address] [facility] [id number] [place] [address] 15 Feb, 2014 [facility] [place] [facility] [address] [id number] [place] [address] 15 Feb, 2014 [facility] [place] [facility] [address] [id number], [place] [address] Jan, [facility] [place] [facility] [address] [id number] [place] [address] Jan, [facility] [place] [facility] [address] [facility] [id number] [place] [address] 17 Jan, 2014 [facility] [place] [facility] [address] [facility] [id number] [place] [address] 17 Jan, 2014 [facility] [place] [facility] [address] [id number] [place] [address] Jan, [facility] [place] [facility] [address] [id number] [place] [address] Jan, [facility] [place] [facility] [address] [id number] [place] [address] Jan, [facility] [place] [facility] [address] [id number] [place] [address] Jan, [facility] [place] [facility] [address] [id number] [place] [address] Jan, [facility] [place] [facility] [address] [id number] [place] [address] Jan, [facility] [place] [facility] [address] [id number] [place] [address] Dec, [facility] [place] [facility] [address] [id number] [place] [address] Dec, [facility] [place] [facility] [address] [id number] [place] [address] Dec, [facility] [place] [facility] [address] [id number] [place] [address] Dec, [facility] [place] [facility] [address] [id number] [place] [address] 16 Nov, 2013 [facility] [place] [facility] [address] [id number] [place] [address] 16 Nov, 2013 [facility] [place] [facility] [address] [id number] [place] [address] 03 Sep, 2013 [facility] [place] [facility] [address] [id number] [place] [address] 03 Sep, 2013 [facility] [place] [facility] [address] [id number] [place] [address] 03 Sep, 2013 [facility] [place] [facility] [address] [id number] [place] [address] Nov, [facility] [place] [facility] [address] [id number] [place] [address] Oct, [facility] [place] [facility] [address] [id number] [place] [address] Oct, [facility] [place] [facility] [address] [id number] [place] [address] Oct, [facility] [place] [facility] [address] [id number] [place] [address] Oct, [facility] [place] [facility] [address] [id number] [place] [address] Sep, [facility] [place] [facility] [address] [id number] [place] [address] Sep, [facility] [place] [facility] [address] [id number] [place] [address] Sep, [facility] [place] [facility] [address] [id number] [place] [address] Sep, [facility] [place] [facility] [address] [id number] [place] [address] Sep, [facility] [place] [facility] [address] [id number] [place] [address] Sep, [facility] [place] [facility] [address] [id number] [place] [address] July, [facility] [place] [facility] [address] [id number] [place] [address] July, [facility] [place] [facility] [address] [id number] [place] [address] July, [facility] [place] [facility] [address] [id number] [place] [address] July, [facility] [place] [facility] [address] [id number] [place] [address] Jun, [facility] [place] [facility] [address] [id number] [place] [address] Jun, [facility] [place] [facility] [address] [id number] [place] [address] Jun, [facility] [place] [facility] [address] [id number] [place] [address] Jun, [facility] [place] [facility] [address] [id number] [place] [address] Jun, [facility] [place] [facility] [address] [id number] [place] [address] Jun, [facility] [place] [facility] [address] [id number] [place] [address] May, [facility] [place] [facility] [address] [facility] [id number] [place] [address] May, [facility] [place] [facility] [address] [facility] [id number] [place] [address] Apr, [facility] [place] [facility] [address] [id number] [place] [address] Apr, [facility] [place] [facility] [address] [id number] [place] [address] Apr, [facility] [place] [facility] [address] [facility] [id number] [place] [address] Apr, [facility] [place] [facility] [address] [facility] [id number] [place] [address] Apr, [facility] [place] [facility] [address] [facility] [id number] [place] [address] Apr, [facility] [place] [facility] [address] [facility] [id number] [place] [address] Apr, [facility] [place] [facility] [address] [facility] [id number] [place] [address] Mar, [facility] [place] [facility] [address] [facility] [id number] [place] [address] Mar, [facility] [place] [facility] [address] [id number] [place] [address] Mar, [facility] [place] [facility] [address] [id number] [place] [address] Mar, [facility] [place] [facility] [address] [id number] [place] [address] Mar, [facility] [place] [facility] [address] [id number] [place] [address] Mar, [facility] [place] [facility] [address] [id number] [place] [address] Mar, [facility] [place] [facility] [address] [id number] [place] [address] Mar, [facility] [place] [facility] [address] [id number] [place] [address] Feb, [facility] [place] [facility] [address] [id number] [place] [address] Feb, [facility] [place] [facility] [address] [id number] [place] [address] Feb, [facility] [place] [facility] [address] [id number] [place] [address] Feb, [facility] [place] [facility] [address] [id number] [place] [address] Feb, [facility] [place] [facility] [address] [id number], [place] [address] Feb, [facility] [place] [facility] [address] [id number] [place] [address] Feb, [facility] [place] [facility] [address] [id number] [place] [address] Jan, [facility] [place] [facility] [address] [id number] [place] [address] Jan, [facility] [place] [facility] [address] [id number] [place] [address] Jan, [facility] [place] [facility] [address] [id number] [place] [address] Jan, [facility] [place] [facility] [address] [id number], [place] [address] Jan, [facility] [place] [facility] [address] [id number], [place] [address] Jan, [facility] [place] [facility] [address] [id number][place] [address] Jan, [facility] [place] [facility] [address] [id number] [place] [address] Jan, [facility] [place] [facility] [address] [id number], [place] [address] Dec, [facility] [place] [facility] [address] [id number], [place] [address] Dec, [facility] [place] [facility] [address] [id number], [place] [address] Dec, [facility] [place] [facility] [address] [id number], [place] [address] Dec, [facility] [place] [facility] [address] [id number], [place] [address] Dec, [facility] [place] [facility] [address] [id number], [place] [address] Dec, [facility] [place] [facility] [address] [id number], [place] [address] Dec, [facility] [place] [facility] [address] [id number], [place] [address] Dec, [facility] [place] [facility] [address] [id number], [place] [address] Dec, [facility] [place] [facility] [address] [id number], [place] [address] Dec, [facility] [place] [facility] [address] [id number] [place] [id number] 27 Nov, 2012 [facility] [address] [id number] [place] [address] Nov, 2012 [facility] [address] [id number] [place] [address] 24 Nov, 2012 [facility] [address] [id number] [place] [address] 20 Nov, 2012 [facility] [address] [id number] [place] [address] 19 Nov, 2012 [facility] [address] [id number] [place] [address] 13 Nov, 2012 [facility] [address] [id number] [place] [address] 10 Nov, 2012 [facility] [address] [id number] [place] [address] Nov, [facility] [address] [id number] [place] [address] Oct, [facility] [address] [id number] [place] [address] Oct, [facility] [address] [id number] [place] [address] Oct, [facility] [address] [id number] [place] [address] Sep, [facility] [address] [id number] [place] [address] Sep, [facility] [address] [id number] [place] [address] Sep, [facility] [address] [id number] [place] [address] Sep, [facility] [address] [id number] [place] [address] Sep, [facility] [address] [id number] [place] [address] Aug, [facility] [place] [facility] [address] [id number] [place] [address] Aug, [facility] [place] [facility] [address] [id number] [place] [address] Aug, [facility] [place] [facility] [address] [id number] [place] [address] Aug, [facility] [address] [id number] [place] [address] Aug, [facility] [place] [facility] [address] [id number] [place] [address] Aug, [facility] [place] [facility] [address] [id number] [place] [address] July, [facility] [place] [facility] [address] [id number] [place] [address] July, [facility] [place] [facility] [address] [id number] [place] [address] July, [facility] [place] [facility] [address] [id number] [place] [address] July, [facility] [place] [facility] [address] [id number] [place] [address] July, [facility] [place] [facility] [address] [id number], [place] [address] July, [facility] [place] [facility] [address] [id number] [place] [address] Jun, [facility] [place] [facility] [address] [id number] [place] [address] Jun, [facility] [place] [facility] [address] [id number] [place] [address] Jun, [facility] [place] [facility] [address] [id number], [place] [address] Jun, [facility] [address] [id number] [place] [address] May, [facility] [address] [id number] [place] [address] May, [facility] [address] [facility] [id number] [place] [address] May, [facility] [address] [id number] [place] [address] Apr, [facility] [address] [id number] [place] [address] Mar, [facility] [address] [id number] [place] [address] Mar, [facility] [address] [facility] [id number], [place] [address] Mar, [facility] [address] [id number] [place] [address] Mar, [facility] [address] [facility] [id number] [place] [address] Mar, [facility] [address] [facility] [id number] [place] [address] Feb, [facility] [address] [id number] [place] [address] Feb, [facility] [address] [id number], [place] [address] Feb, [facility] [address] [id number] [place] [address] 17 Feb, 2012 [facility] [address] [facility] [id number] [place] [address] Jan, [facility] [address] [facility] [id number] [place] [address] Jan, [facility] [address] [id number] [place] [address] Jan, [facility] [address] [id number] [place] [address] Jan, [facility] [place] [facility] [address] [id number] [place] [address] Dec, [facility] [place] [facility] [address] [id number] [place] [address] Dec, [facility] [place] [facility] [address] [id number] [place] [address] Nov, [facility] [place] [facility] [address] [id number] [place] [address] Oct, [facility] [address] [id number] [place] [address] Oct, [facility] [place] [facility] [address] [id number] [place] [address] Oct, [facility] [address] [id number] [place] [address] Oct, [facility] [address] [id number] [place] [address] Oct, [facility] [address] [id number] [place] [address] Sep, [facility] [place] [facility] [address] [id number] [place] [address] Sep, [facility] [address] [id number] [place] [address] Aug, [facility] [address] [place] [id number] Aug, [facility] [place] [facility] [address] [id number] [place] [address] Aug, [facility] [address] [id number] [place] [address] July, [facility] [address] [id number] [place] [address] July, [facility] [place] [facility] [address] [id number] [place] [address] Jun, [facility] [place] [facility] [address] [id number] [place] [address] Jun, [facility] [place] [facility] [address] [id number] [place] [address] Jun, [facility] [place] [facility] [address] [id number] [place] [address] Jun, [facility] [place] [facility] [address] [id number] [place] [address] Apr, [facility] [place] [facility] [address] [id number] [place] [address] Apr, [facility] [place] [facility] [address] [id number] [place] [address] Apr, [facility] [place] [facility] [address] [id number] [place] [address] Mar, [facility] [place] [facility] [address] [id number] [place] [address] Mar, [facility] [place] [facility] [address] [id number] [place] [address] Mar, [facility] [place] [facility] [address] [id number] [place] [address] Mar, [facility] [place] [facility] [address] [id number] [place] [address] Mar, [facility] [place] [facility] [address] [id number] [place] [address] Jan, [facility] [place] [facility] [address] [id number] [place] [address] Jan, [facility] [place] [facility] [address] [id number], [place] [address] Jan, [facility] [address] [id number] [place] [address] 17 Mar, 2010 [facility] [place] [facility] [address] [id number] [place] [address] 11 Mar, 2010 [facility] [address] [facility] [id number] [place] [address] 20 Feb, 2010 [facility] [place] [facility] [address] [id number] [place] [address] 16 Feb, 2010 [facility] [address] [id number] [place] [address] Feb, [facility] [place] [facility] [address] [id number] [place] [address] Jan, [facility] [address] [facility] [id number] [place] [address] Jan, [facility] [place] [facility] [address] [facility] [id number] [place] [address] Dec, [facility] [address] [facility] [id number] [place] [address] Dec, [facility] [place] [facility] [address] [facility] [id number] [place] [address] May, [facility] [place] [facility] [address] [facility] [id number], [place] [address] 10 Apr, 2009 [facility] [place] [facility] [address] [id number], [place] [address] Feb, [facility] [place] [facility] [address] [id number] [place] [address] Feb, [facility] [place] [facility] [address] [facility] [id number] [place] [address] 30 Jan, 2009 [facility] [place] [facility] [address] [facility] [id number], [place] [address] Jan, [facility] [place] [facility] [address] [facility] [id number] [place] [address] Jan, [facility] [address] [facility] [id number] [place] [address] Jan, [facility] [address] [facility] [id number] [place] [address] Jan, IMMUNIZATIONS No Known Immunizations SOCIAL HISTORY Never Assessed REASON FOR VISIT Refill Request PLAN OF CARE VITAL SIGNS MEDICATIONS Medication Instructions Dosage Frequency Start Date End Date Duration Status Gabapentin 600 MG Orally 3 times a day 2 tablets 8h 30 days Active RESULTS No Results PROCEDURES [...]
--- OUTSIDE RECORDS SUMMARY | 2018-10-04 06:53 | XMS REPORT ---
Author Author [facility] Address [address] [place] [address] Care Team Providers Care Mechanical Project Engineer Name Role Phone KATHYBRIAN VILLEGASY Unavailable PROBLEMS Type Condition ICD9-CM Code MFA39-HS Code Onset Dates Condition Status SNOMED Code Problem Primary osteoarthritis of both knees M17.0 Active 697258730 Problem MITCHELL treated with BiPAP G47.33 Active 98115302 Problem Nocturnal hypoxia G47.34 Active 773333801 Problem Chronic prescription opiate use Z79.891 Active 464824298 Problem Chronic systolic (congestive) heart failure I50.22 Active 139247350 Problem Acute right-sided low back pain with right-sided sciatica M54.41 Active 72972187 Problem Posttraumatic stress disorder F43.10 Active 99755921 Problem Severe major depression with psychotic features F32.3 Active 97328249 Problem Mood disorder F39 Active 02435068 Problem Mild episode of recurrent major depressive disorder F33.0 Active 869729291 Problem Type 2 diabetes mellitus with diabetic polyneuropathy E11.42 Active 524877172 Problem Pure hypercholesterolemia E78.0 Active 135582439 Problem Chronic pain syndrome G89.4 Active 967782201 Problem Tobacco abuse Z72.0 Active 601871502 Problem Obesity, morbid, BMI 40.0-49.9 E66.01 Active 645821814 Problem BMI 45.0-49.9, adult Z68.42 Active 261602876 Problem Macrocytosis D75.89 Active 523180751 Problem Major depressive disorder, recurrent episode, unspecified severity F33.9 Active 02401608 Problem Gastroesophageal reflux disease, esophagitis presence not specified K21.9 Active 462044881 Problem History of DVT (deep vein thrombosis) Z86.718 Active 928981302 Problem Essential hypertension I10 Active 25336297 Problem History of weight loss surgery Z98.84 Active 467903921 Problem PTSD (post-traumatic stress disorder) F43.10 Active 14539410 Problem Non-ischemic cardiomyopathy I42.9 Active 86304017 Problem Chronic obstructive pulmonary disease, unspecified COPD type J44.9 Active 13580239 ALLERGIES No Information SOCIAL HISTORY Never Assessed PLAN OF CARE VITAL SIGNS MEDICATIONS Unknown Medications RESULTS Name Result Date Reference Range CBC 2016-08-16 WBC 6.7 3.4-10.8 RBC 4.92 4.14-5.80 Hemoglobin 16.3 12.6-17.7 Hematocrit 48.2 37.5-51.0 MCV 98 79-97 MCH 33.1 26.6-33.0 MCHC 33.8 31.5-35.7 RDW 13.3 12.3-15.4 Platelets 233 150-379 Neutrophils 71 Lymphs 18 Monocytes 6 Eos 5 Basos 0 Neutrophils (Absolute) 4.7 1.4-7.0 Lymphs (Absolute) 1.2 0.7-3.1 Monocytes(Absolute) 0.4 0.1-0.9 Eos (Absolute) 0.3 0.0-0.4 Baso (Absolute) 0.0 0.0-0.2 Immature Granulocytes 0 Immature Grans (Abs) 0.0 0.0-0.1 LIPID PANEL 2016-08-16 Cholesterol, Total 176 100-199 Triglycerides 116 0-149 HDL Cholesterol 38 >39 VLDL Cholesterol Nicholas 23 5-40 LDL Cholesterol Calc 115 0-99 Comment: CMP 2016-08-16 Glucose, Serum 95 65-99 BUN 8 6-24 Creatinine, Serum 0.87 0.76-1.27 eGFR If NonAfricn Am 104 >59 eGFR If Africn Am 120 >59 BUN/Creatinine Ratio 9 9-20 Sodium, Serum 141 134-144 Potassium, Serum 4.1 3.5-5.2 Chloride, Serum 101 96-106 Carbon Dioxide, Total 23 18-29 Calcium, Serum 9.1 8.7-10.2 Protein, Total, Serum 6.9 6.0-8.5 Albumin, Serum 4.1 3.5-5.5 Globulin, Total 2.8 1.5-4.5 A/G Ratio 1.5 1.2-2.2 Bilirubin, Total 0.6 0.0-1.2 Alkaline Phosphatase, S 82 39-117 AST (SGOT) 19 0-40 ALT (SGPT) 22 0-44 PROCEDURES Procedure Date Ordered Result Body Site LAB NOT BILLED BY [facility] August 16, 2016 VENIPUNCT, ROUTINE* August 16, 2016 IMMUNIZATIONS No Known Immunizations MEDICAL (GENERAL) HISTORY [...] Hospitalization History ED then admitted to [facility]-cardiac stepdown-chest pain 02/2010 Hospitalization History Possible DVT-sono negative 06/2010 Hospitalization History cellulitis to bilat legs
--- OUTSIDE RECORDS SUMMARY | 2018-10-04 06:53 | XMS REPORT ---
Author Author PARI ORTEGA [facility] eClinicalWorks Address Unknown Phone Unavailable Care Team Providers Care Tar Distillation Supervisor Name Role Phone PARI ORTEGA CP Unavailable Allergies, Adverse Reactions, Alerts Substance Reaction Event Type Chantix nausea Drug Allergy Problems Problem Type Condition Code Onset Dates [...] Problem PTSD (post-traumatic stress disorder) F43.10 Active Assessment Severe major depression with psychotic features F32.3 Active Problem Pure hypercholesterolemia E78.0 Active Problem Essential hypertension I10 Active Assessment Posttraumatic stress disorder F43.10 Active Problem History of weight loss surgery Z98.84 Active Medications Medication Code System Code Instructions Start Date End Date Status Dosage Cyclobenzaprine HCl [facility] 09798404073 10 MG TAKE ONE TABLET BY MOUTH THREE TIMES DAILY NEEDED Mirtazapine [facility] [address]-27 30 MG Orally Once a day June 25, 2015 1 tablet before bedtime in the evening Liraglutide [facility] [address]-45 18 MG/3ML Subcutaneous Once a day for one week, then increase to 1.2 mg SQ daily June 04, 2015 0.6 mg MS Contin [facility] [address]-89 15 MG Orally Once a day in the am Oct 22, 2014 1 tablet Pataday [facility] [address]-98 0.2 % Ophthalmic 2 times a day Apr 10, 2015 1 drop to affected eyes Pen [place] [facility] [address]-32 31G X 6 MM Once a day June 10, 2015 as directed Klonopin [facility] 99024170990 1 MG TAKE ONE TABLET BY MOUTH TWICE DAILY HydrOXYzine Pamoate [facility] [address]-71 25 MG Orally every 6 hrs May 07, 2015 1 capsule as needed Metformin HCl [facility] [address]-92 500 MG Orally Twice a day 1 tablet with meals MS Contin [facility] [address]-58 30 MG Orally Once a day in the evening Oct 22, 2014 1 tablet Hydrocodone-Acetaminophen [facility] [address]-89 5-325 MG May 29, 2014 take 1 tablet by oral route every 6 hours as needed for pain Ventolin HFA [facility] [address]-15 108 (90 Base) MCG/ACT Inhalation every 4 hrs Apr 10, 2015 2 puffs as needed Pantoprazole Sodium [facility] [address]-93 40 MG Orally Once a day Apr 10, 2015 1 tablet Invega [facility] [address]-51 6 MG Orally Once a day Jan 08, 2015 2 tablets Flomax [facility] [address]-58 0.4 MG Orally Once a day 1 capsule 30 minutes after the same meal each day Gabapentin [facility] 37468069201 300 MG TAKE THREE CAPSULES BY MOUTH THREE TIMES DAILY Prozac [facility] [address]-81 40 MG Orally Once a day Jan 08, 2015 1 capsule in the morning Procedures Procedure Coding System Code Date Office Visit, Maude Pt., Level 3 CPT-4 64025 June 25, 2015 COUNTS INCLUDE 234 BEDS AT THE [facility] VISIT ESTABLISHED PATIENT CPT-4 G0467 June 25, 2015 Vital Signs Date/Time: June 25, 2015 Temperature 98.1 F Weight 275.3 lbs Height 66 in BMI 44.43 Index Blood Pressure Diastolic 60 mmHg Blood Pressure Systolic 122 mmHg Cardiac Monitoring Heart Rate 84 bpm Results No Known Results Summary Purpose eClinicalWorks Submission
--- OUTSIDE RECORDS SUMMARY | 2018-10-04 06:54 | XMS REPORT ---
Author Author PARI ORTEGA [facility] eClinicalWorks Address Unknown Phone Unavailable Care Team Providers Care Electric Engine Mechanic Name Role Phone PARI ORTEGA CP Unavailable [...] PTSD (post-traumatic stress disorder) F43.10 Active Assessment Posttraumatic stress disorder F43.10 Active Problem Pure hypercholesterolemia E78.0 Active Problem Essential hypertension I10 Active Assessment Severe major depression with psychotic features F32.3 Active Problem History of weight loss surgery Z98.84 Active Medications Medication Code System Code Instructions Start Date End Date Status Dosage Hydrocodone-Acetaminophen [facility] [address]-50 5-325 MG May 29, 2014 take 1 tablet by oral route every 6 hours as needed for pain Nexium [facility] 04484924821 40 MG Orally Once a day qHS 1 capsule HydrOXYzine Pamoate [facility] [address]-58 25 MG Orally every 8 hrs Jan 08, 2015 1 capsule as needed Prozac [facility] [address]-22 40 MG Orally Once a day Jan 08, 2015 1 [facility] [address]-13 8 % Externally Once a day Dec 20, 2014 1 drop to affected area MS Contin [facility] [address]-77 30 MG Orally Once a day in the evening Oct 22, 2014 1 tablet MS Contin [facility] [address]-53 15 MG Orally Once a day in the am Oct 22, 2014 1 tablet Invega [facility] [address]-30 6 MG Orally Once a day Jan 08, 2015 2 tablets Klonopin [facility] [address]-81 1 MG Orally Twice a day Jan 08, 2015 1 tablet Trazodone HCl [facility] [address]-66 100 MG Orally Once a day Feb 10, 2015 2 tablet at bedtime Procedures Procedure Coding System Code Date Office Visit, Est Pt., Level 3 CPT-4 98500 Feb 10, 2015 [facility] VISIT ESTABLISHED PATIENT CPT-4 G0467 Feb 10, 2015 Vital Signs Date/Time: Feb 10, 2015 Cardiac Monitoring Heart Rate 80 bpm Weight 255.4 lbs Height 66 in BMI 41.22 Index Blood Pressure Diastolic 68 mmHg Blood Pressure Systolic 128 mmHg Results No Known Results Summary Purpose eClinicalWorks Submission
--- OUTSIDE RECORDS SUMMARY | 2018-10-04 06:54 | XMS REPORT ---
Author Author GAIL TORRES Organization [facility] Address [address] [place] [address] Care Team Providers Care Board Design Engineer Name Role Phone TORRESGAIL Pérez Unavailable PROBLEMS Type Condition ICD9-CM Code JSY07-YH Code Onset Dates Condition Status SNOMED Code Problem Type 2 diabetes mellitus with diabetic polyneuropathy E11.42 Active 057943719 Problem Acute right-sided low back pain with right-sided sciatica M54.41 Active 69909173 Problem Chronic prescription opiate use Z79.891 Active 520552859 Problem BMI 45.0-49.9, adult Z68.42 Active 655069448 Problem Essential hypertension I10 Active 53071399 Problem Macrocytosis D75.89 Active 482924015 Problem Pure hypercholesterolemia E78.0 Active 529097824 Problem Nocturnal hypoxia G47.34 Active 458886567 Problem Posttraumatic stress disorder F43.10 Active 80887631 Problem Severe major depression with psychotic features F32.3 Active 24398473 Problem Tobacco abuse Z72.0 Active 686836126 Problem Obesity, morbid, BMI 40.0-49.9 E66.01 Active 096825681 Problem Chronic systolic (congestive) heart failure I50.22 Active 519067419 Problem Non-ischemic cardiomyopathy I42.9 Active 00210637 Problem History of weight loss surgery Z98.84 Active 918644494 Problem MITCHELL treated with BiPAP G47.33 Active 85856906 Problem PTSD (post-traumatic stress disorder) F43.10 Active 06948165 Problem Chronic pain syndrome G89.4 Active 022840722 Problem History of DVT (deep vein thrombosis) Z86.718 Active 598877405 Problem Chronic obstructive pulmonary disease, unspecified COPD type J44.9 Active 14268471 Problem Primary osteoarthritis of both knees M17.0 Active 705877735 Problem Gastroesophageal reflux disease, esophagitis presence not specified K21.9 Active 238353591 Problem Major depressive disorder, recurrent episode, unspecified severity F33.9 Active 97516303 ALLERGIES Unknown Allergies SOCIAL HISTORY No smoking Hx information available PLAN OF CARE VITAL SIGNS MEDICATIONS Medication Instructions Dosage Frequency Start Date End Date Duration Status Hydrocodone-Acetaminophen 5-325 MG Orally every 6 hrs 1 tablet as needed 6h Jan, 28 days Active MS Contin 30 MG Orally Once a day in the evening- appt needed before due for next refill 1 tablet Oct, 28 days Active MS Contin 15 MG Orally Once a day in the am- appt needed before due for next refill 1 tablet Oct, 28 days Active RESULTS No Results PROCEDURES No Known procedures IMMUNIZATIONS No Known Immunizations
--- OUTSIDE RECORDS SUMMARY | 2018-10-04 06:54 | XMS REPORT ---
Author Author [facility] Address [address] [place] [address] Care Team Providers Care Washcoat Wiper Name Role Phone KATHYBRIAN VILLEGASY Unavailable PROBLEMS Type Condition ICD9-CM Code [id number]-HE Code Onset Dates Condition Status SNOMED Code Problem Primary osteoarthritis of both knees M17.0 Active 435261031 Problem MITCHELL treated with BiPAP G47.33 Active 31301276 Problem Nocturnal hypoxia G47.34 Active 775708980 Problem Chronic prescription opiate use Z79.891 Active 793086441 Problem Chronic systolic (congestive) heart failure I50.22 Active 241358129 Problem Acute right-sided low back pain with right-sided sciatica M54.41 Active 61000141 Problem Posttraumatic stress disorder F43.10 Active 35395461 Problem Severe major depression with psychotic features F32.3 Active 13283588 Problem Mood disorder F39 Active 87112931 Problem Mild episode of recurrent major depressive disorder F33.0 Active 803277198 Problem Type 2 diabetes mellitus with diabetic polyneuropathy E11.42 Active 460835697 Problem Pure hypercholesterolemia E78.0 Active 044988109 Problem Chronic pain syndrome G89.4 Active 683626145 Problem Tobacco abuse Z72.0 Active 212866288 Problem Obesity, morbid, BMI 40.0-49.9 E66.01 Active 653509757 Problem BMI 45.0-49.9, adult Z68.42 Active 810470533 Problem Macrocytosis D75.89 Active 164048094 Problem Major depressive disorder, recurrent episode, unspecified severity F33.9 Active 01063861 Problem Gastroesophageal reflux disease, esophagitis presence not specified K21.9 Active 941241012 Problem History of DVT (deep vein thrombosis) Z86.718 Active 416289425 Problem Essential hypertension I10 Active 71809842 Problem History of weight loss surgery Z98.84 Active 991666108 Problem PTSD (post-traumatic stress disorder) F43.10 Active 66538212 Problem Non-ischemic cardiomyopathy I42.9 Active 58128897 Problem Chronic obstructive pulmonary disease, unspecified COPD type J44.9 Active 55695463 ALLERGIES No Information SOCIAL HISTORY Never Assessed PLAN OF CARE VITAL SIGNS MEDICATIONS Medication Instructions Dosage Frequency Start Date End Date Duration Status Hydrocodone-Acetaminophen 5-325 MG Orally every 6 hrs 1 tablet as needed 6h Jan, 28 days Active RESULTS No Results PROCEDURES [...]
--- OUTSIDE RECORDS SUMMARY | 2018-10-04 06:55 | XMS REPORT ---
Author Author ESTHER CHAVEZ Organization [facility] Address [address] [place] [address] Care Team Providers Care Heel Seater Name Role Phone KATHYCIARA VILLEGASHANY Unavailable PROBLEMS Type Condition ICD9-CM Code QTE76-GH Code Onset Dates Condition Status SNOMED Code Problem Non-ischemic cardiomyopathy I42.9 Active 93894437 Problem Gastroesophageal reflux disease, esophagitis presence not specified K21.9 Active 155016147 Problem History of DVT (deep vein thrombosis) Z86.718 Active 946623878 Problem Chronic prescription opiate use Z79.891 Active 857524972 Problem Type 2 diabetes mellitus with diabetic polyneuropathy E11.42 Active 294687101 Problem Chronic pain syndrome G89.4 Active 374309657 Problem PTSD (post-traumatic stress disorder) F43.10 Active 38910214 Problem Major depressive disorder, recurrent episode, unspecified severity F33.9 Active 83416923 Problem Chronic obstructive pulmonary disease, unspecified COPD type J44.9 Active 41046197 Problem Essential hypertension I10 Active 01498376 Problem History of weight loss surgery Z98.84 Active 571745686 Problem Nocturnal hypoxia G47.34 Active 004244060 Problem MITCHELL treated with BiPAP G47.33 Active 69078110 Problem Pure hypercholesterolemia E78.0 Active 466966065 Problem Chronic systolic (congestive) heart failure I50.22 Active 560698836 ALLERGIES Unknown Allergies SOCIAL HISTORY No smoking Hx information available PLAN OF CARE VITAL SIGNS MEDICATIONS Medication Instructions Dosage Frequency Start Date End Date Duration Status MS Contin 30 MG Orally Once a day in the evening- appt needed before due for next refill 1 tablet Oct, Dec, 28 days Active MS Contin 15 MG Orally Once a day in the am- appt needed before due for next refill 1 tablet Oct, Dec, 28 days Active Hydrocodone-Acetaminophen 5-325 MG take 1 tablet by oral route every 6 hours as needed for pain May, Dec, 28 days Active RESULTS No Results PROCEDURES No Known procedures IMMUNIZATIONS No Known Immunizations
--- OUTSIDE RECORDS SUMMARY | 2018-10-04 06:55 | XMS REPORT ---
Author Author PARI ORTEGA [facility] eClinicalWorks Address Unknown Phone Unavailable Care Team Providers Care Quality Assurance Specialist Name Role Phone PARI ORTEGA CP Unavailable Allergies, Adverse Reactions, Alerts Substance Reaction Event Type Chantix nausea Drug Allergy Problems Problem Type Condition ICD-9 Code Onset Dates Condition Status Problem Posttraumatic stress disorder 309.81 Active Problem Headache 784.0 Active Problem Chronic airway obstruction, not elsewhere classified 496 Active Problem Diabetes mellitus 250.00 Active Problem DM neuro manif type II 250.60 Active Problem Chronic pain 338.29 Active Problem Major depressive disorder, recurrent episode, moderate 296.32 Active Problem Brachial neuritis or radiculitis nos. 723.4 Active Problem External hemorrhoids without mention of complication 455.3 Active Problem Urinary hesitancy 788.64 Active Assessment Posttraumatic stress disorder 309.81 Active Assessment Depression, major, recurrent, moderate 296.32 Active Problem Unspecified peripheral vascular disease 443.9 Active Medications Medication Code System Code Instructions Start Date End Date Status Dosage Trazodone HCl [facility] [address]-21 150 MG Orally Once a day 1 tablet at bedtime as needed Invega [facility] [address]-38 9 MG Orally Once a day 1 tablet MS Contin [facility] [address]-42 15 MG Orally Once a day in the am Oct 22, [address] [facility] [address]-20 40 MG Orally Once a day qHS 1 capsule Albuterol Sulfate [facility] [address]-15 (2.5 MG/3ML) 0.083% Inhalation by nebulizer 4 times a day PRN wheezing 2.[address] [facility] [address]-94 10 MG Orally Once a day [address] [facility] [address]-24 1 MG Orally Twice a day PRN [address] [facility] [address]-41 3.125 MG Orally Twice a day 1 tablet with food HydrOXYzine HCl [facility] [address]-75 25 MG Orally every 8 hrs October 07, 2014 1 tablet as needed Cyclobenzaprine HCl [facility] [address]-31 10 MG Orally Three times a day PRN 1 tablet ProAir HFA [facility] [address]-79 108 (90 Base) MCG/ACT Inhalation every 4 hrs PRN shortness of breath/cough [address] [facility] [address]-51 20 MG Orally Once a day 0.5 tablet Metformin HCl [facility] [address]-89 500 MG Orally Twice a day 1 tablet with meals Hydrocodone-Acetaminophen [facility] [address]-81 5-325 MG May 29, 2014 take 1 tablet by oral route every 6 hours as needed for pain Penlac [facility] [address]-65 8 % Externally Once a day September 20, 2014 1 drop to affected area Furosemide [facility] [address]-94 40 MG Orally Once a day [address] [facility] [address]-83 10 MG Orally Once a day 1 tablet MS Contin [facility] [address]-95 30 MG Orally Once a day in the evening Oct 22, [address] [facility] [address]-12 40 MG Orally Once a day October 07, 2014 1 capsule in the morning Gabapentin [facility] [address]-45 300 MG Orally 2 times a day in morning and early afternoon 1 capsule Procedures Procedure Coding System Code Date Office Visit, Maude Pt., Level 2 CPT-4 63444 Nov 08, 2014 PENDING SALE TO [facility] VISIT ESTABLISHED PATIENT CPT-4 G0467 Nov 08, 2014 Vital Signs Date/Time: Nov 08, 2014 Temperature 98.6 F Weight 248.2 lbs Height 66 in BMI 40.06 Index Blood Pressure Diastolic 84 mmHg Blood Pressure Systolic 146 mmHg Cardiac Monitoring Heart Rate 72 bpm Results No Known Results Summary Purpose eClinicalWorks Submission
--- OUTSIDE RECORDS SUMMARY | 2018-10-04 06:55 | XMS REPORT ---
Author Author KATHY ESTHER [facility] Address [address] [place] [address] Care Team Providers Care Plastic Boat Buffer Name Role Phone KATHYBRIAN VILLEGASY Unavailable PROBLEMS Type Condition ICD9-CM Code CSU31-DB Code Onset Dates Condition Status SNOMED Code Problem Primary osteoarthritis of both knees M17.0 Active 832664694 Problem MITCHELL treated with BiPAP G47.33 Active 89272719 Problem Nocturnal hypoxia G47.34 Active 091335914 Problem Chronic prescription opiate use Z79.891 Active 186569398 Problem Chronic systolic (congestive) heart failure I50.22 Active 329055642 Problem Acute right-sided low back pain with right-sided sciatica M54.41 Active 25928920 Problem Posttraumatic stress disorder F43.10 Active 49248888 Problem Severe major depression with psychotic features F32.3 Active 55207739 Problem Mood disorder F39 Active 76428246 Problem Mild episode of recurrent major depressive disorder F33.0 Active 447899600 Problem Type 2 diabetes mellitus with diabetic polyneuropathy E11.42 Active 042545083 Problem Pure hypercholesterolemia E78.0 Active 033611079 Problem Chronic pain syndrome G89.4 Active 696860958 Problem Tobacco abuse Z72.0 Active 423459092 Problem Obesity, morbid, BMI 40.0-49.9 E66.01 Active 555390868 Problem BMI 45.0-49.9, adult Z68.42 Active 474087972 Problem Macrocytosis D75.89 Active 044983270 Problem Major depressive disorder, recurrent episode, unspecified severity F33.9 Active 15064783 Problem Gastroesophageal reflux disease, esophagitis presence not specified K21.9 Active 860125341 Problem History of DVT (deep vein thrombosis) Z86.718 Active 742450583 Problem Essential hypertension I10 Active 79531197 Problem History of weight loss surgery Z98.84 Active 060283060 Problem PTSD (post-traumatic stress disorder) F43.10 Active 51831686 Problem Non-ischemic cardiomyopathy I42.9 Active 37199270 Problem Chronic obstructive pulmonary disease, unspecified COPD type J44.9 Active 64320779 ALLERGIES No Information ENCOUNTERS Encounter Location Date Diagnosis [place] [id number] [place] [address] Sep, [facility] [id number] [place] [address] July, Medicare annual wellness visit, initial Z00.00 [facility] [id number] [place] [address] May, [place] [address] [address] May, BMI 45.0-49.9, adult Z68.42 ; Mood disorder F39 and Posttraumatic stress disorder F43.10 [place] [id number] [place] [address] May, [place] [id number] [place] [address] May, Primary osteoarthritis of both knees M17.0 and Chronic pain syndrome G89.4 [place] [id number] [place] [address] May, Mood disorder F39 [place] [id number] [place] [address] Apr, Type 2 diabetes mellitus with diabetic polyneuropathy E11.42 [facility] [id number] [place] [address] Apr, [facility] [id number] [place] [address] Apr, Primary osteoarthritis of both knees M17.0 and Chronic pain syndrome G89.4 [place] [id number] [place] [address] Apr, Mood disorder F39 [place] [id number] [place] [address] Mar, Mood disorder F39 and Posttraumatic stress disorder F43.10 [facility] [id number] [place] [address] Mar, Primary osteoarthritis of both knees M17.0 and Chronic pain syndrome G89.4 [facility] [id number] [place] [address] Feb, Primary osteoarthritis of both knees M17.0 and Chronic pain syndrome G89.4 [facility] [id number] [place] [address] Feb, Mood disorder F39 [facility] [id number] [place] [address] Jan, Type 2 diabetes mellitus with diabetic polyneuropathy E11.42 ; Primary osteoarthritis of both knees M17.0 ; Mood disorder F39 ; Obesity, morbid, BMI 40.0-49.9 E66.01 ; Chronic prescription opiate use Z79.891 ; Acute suppurative otitis media of both ears without spontaneous rupture of tympanic membranes, recurrence not specified H66.003 and BMI 45.0-49.9, adult Z68.42 [facility] [id number] [place] [address] Jan, Primary osteoarthritis of both knees M17.0 and Chronic pain syndrome G89.4 [facility] [id number] [place] [address] Dec, Mood disorder F39 and Posttraumatic stress disorder F43.10 [facility] [id number] [place] [address] Dec, Primary osteoarthritis of both knees M17.0 and Chronic pain syndrome G89.4 [facility] [id number] [place] [address] 18 Nov, 2016 Chronic pain syndrome G89.4 [facility] [id number] [place] [address] 15 Nov, 2016 Primary osteoarthritis of both knees M17.0 and Chronic pain syndrome G89.4 [facility] [id number] [place] [address] 13 Nov, 2016 Type 2 diabetes mellitus with diabetic polyneuropathy E11.42 and Chronic pain syndrome G89.4 [facility] [id number] [place] [address] 12 Nov, 2016 Posttraumatic stress disorder F43.10 and Mood disorder F39 [facility] [id number] [place] [address] Oct, Chronic pain syndrome G89.4 [facility] [id number] [place] [address] 16 Oct, 2016 Type 2 diabetes mellitus with diabetic polyneuropathy E11.42 ; BMI 45.0-49.9, adult Z68.42 ; Primary osteoarthritis of both knees M17.0 and Skin lesion L98.9 [facility] [id number] [place] [address] Oct, Chronic pain syndrome G89.4 [facility] [id number] [place] [address] Sep, Chronic pain syndrome G89.4 [facility] [id number] [place] [address] Sep, [facility] [id number] [place] [address] Sep, Chronic pain syndrome G89.4 [facility] [id number] [place] [address] Aug, Chronic pain syndrome G89.4 [facility] [id number] [place] [address] Aug, [facility] [id number] [place] [address] Aug, Macrocytosis D75.89 and Pure hypercholesterolemia E78.0 [facility] [id number] [place] [address] Aug, Pure hypercholesterolemia E78.0 [place] [address] [address] Aug, Macrocytosis D75.89 [place] [id number] [place] [address] Aug, Pure hypercholesterolemia E78.0 ; Type 2 diabetes mellitus with diabetic polyneuropathy E11.42 ; MITCHELL treated with BiPAP G47.33 and Chronic pain syndrome G89.4 [place] [id number] [place] [address] Aug, [place] [id number] [place] [address] Aug, Hemorrhoids, unspecified hemorrhoid type K64.9 [place] [id number] [place] [address] Aug, Chronic pain syndrome G89.4 ; Type 2 diabetes mellitus with diabetic polyneuropathy E11.42 ; Hemorrhoids, unspecified hemorrhoid type K64.9 ; Tobacco abuse Z72.0 and Primary osteoarthritis of both knees M17.0 [place] [id number] [place] [address] July, Chronic pain syndrome G89.4 [place] [id number] [place] [address] July, [place] [id number] [place] [address] Jun, Chronic pain syndrome G89.4 [place] [id number] [place] [address] Jun, Chronic pain syndrome G89.4 [place] [id number] [place] [address] Jun, Severe major depression with psychotic features F32.3 and Posttraumatic stress disorder F43.10 [place] [address] [address] Jun, Chronic pain syndrome G89.4 [facility] [id number] [place] [address] Jun, [facility] [id number] [place] [address] May, Chronic pain syndrome G89.4 [facility] [id number] [place] [address] May, Tobacco abuse Z72.0 [facility] [id number] [place] [address] May, [facility] [id number] [place] [address] Apr, Chronic pain syndrome G89.4 [facility] [id number] [place] [address] Apr, [facility] [id number] [place] [address] Apr, Right foot pain M79.671 [facility] [id number] [place] [address] Mar, Type 2 diabetes mellitus with diabetic polyneuropathy E11.42 ; MITCHELL treated with BiPAP G47.33 ; Pure hypercholesterolemia E78.0 ; Chronic pain syndrome G89.4 ; Tobacco abuse Z72.0 and Obesity, morbid, BMI 40.0-49.9 E66.01 [facility] [address] [address] Mar, [facility] [id number] [place] [address] Mar, [facility] [id number] [place] [address] Mar, [facility] [id number] [place] [address] Mar, [facility] [address], [place] [address] Mar, [facility] [id number] [place] [address] Mar, Severe major depression with psychotic features F32.3 and Posttraumatic stress disorder F43.10 [facility] [id number] [place] [address] Mar, [facility] [address] [facility] [id number] [place] [address] Feb, [facility] [id number] [place] [address] Feb, [facility] [id number] [place] [address] Jan, [facility] [id number] [place] [address] Jan, [facility] [id number] [place] [address] Dec, Posttraumatic stress disorder F43.10 and Severe major depression with psychotic features F32.3 [facility] [address], [place] [address] Dec, Type 2 diabetes mellitus with diabetic polyneuropathy E11.42 ; Chronic pain syndrome G89.4 and Acute right-sided low back pain with right-sided sciatica M54.41 [facility] [address], [place] [address] Dec, [facility] [id number] [place] [address] Dec, [facility] [id number] [address] Nov, [facility] [id number] [place] [address] Nov, [facility] [id number] [place] [address] Nov, [facility] [id number] [place] [address] Oct, [facility] [id number] [place] [address] Oct, [facility] [id number] [place] [address] Sep, Dental examination Z01.20 [facility] [id number] [place] [address] Sep, [facility] [id number] [place] [address] Sep, Type 2 diabetes mellitus with diabetic polyneuropathy E11.42 ; Chronic pain syndrome G89.4 ; Chronic prescription opiate use Z79.891 ; Injury of right index finger, sequela S69.91XS and Anejaculation N50.8 [facility] [id number] [place] [address] Aug, [facility] [id number] [place] [address] Aug, [facility] [id number] [place] [address] Aug, Cellulitis of finger of right hand L03.011 [facility] [id number] [place] [address] July, [facility] [id number] [place] [address] July, [facility] [id number] [place] [address] Jun, Onychomycosis B35.1 [facility] [id number] [place] [address] Jun, Severe major depression with psychotic features F32.3 and Posttraumatic stress disorder F43.10 [facility] [address], [place] [address] Jun, [facility] [id number] [place] [address] Jun, [facility] [id number] [place] [address] Jun, [facility] [id number] [place] [address] May, Type 2 diabetes mellitus with diabetic polyneuropathy E11.42 [place] [id number] [place] [address] May, Type 2 diabetes mellitus with diabetic polyneuropathy E11.42 and Urinary hesitancy R39.11 [place] [id number] [place] [address] May, Type 2 diabetes mellitus with diabetic polyneuropathy E11.42 ; Left hip pain M25.552 and Benign prostatic hyperplasia with lower urinary tract symptoms, unspecified morphology N40.1 [place] [id number] [place] [address] May, [facility] [id number] [place] [address] Apr, Severe major depression with psychotic features F32.3 and Posttraumatic stress disorder F43.10 [facility] [id number] [place] [address] Apr, [facility] [address], [place] [address] Mar, [facility] [id number] [place] [address] Mar, Dysuria R30.0 and Urinary hesitancy R39.11 [facility] [id number] [place] [address] Mar, Onychomycosis B35.1 [facility] [address], [place] [address] Mar, [facility] [id number] [place] [address] Feb, [facility] [id number] [place] [address] Jan, [facility] [id number] [place] [address] Jan, Posttraumatic stress disorder F43.10 and Severe major depression with psychotic features F32.3 [facility] [id number] [place] [address] Jan, [facility] [id number] [place] [address] Jan, Chronic pain syndrome G89.4 ; Type 2 diabetes mellitus with diabetic polyneuropathy E11.42 ; Decreased pedal pulses R09.89 and Paresthesia of both hands R20.2 [facility] [id number] [place] [address] Dec, Posttraumatic stress disorder F43.10 and Severe major depression with psychotic features F32.3 [facility] [address], [place] [address] Dec, [facility] [id number] [place] [address] Dec, [facility] [address], [place] [address] Dec, Onychomycosis B35.1 [facility] [id number] [place] [address] Dec, [facility] [id number] [place] [address] Dec, [facility] [id number] [place] [address] Nov, [place] [id number] [place] [address] Oct, Depression, major, recurrent, moderate 296.32 and Posttraumatic stress disorder 309.81 [place] [id number] [place] [address] Oct, [place] [id number] [place] [address] Oct, [place] [id number] [place] [address] Oct, [place] [id number] [place] [address] Sep, Posttraumatic stress disorder 309.81 and Depression, major, recurrent, moderate 296.32 [place] [id number] [place] [address] Sep, [place] [id number] [place] [address] Sep, Chronic airway obstruction, not elsewhere classified [id number] [place] [address] Sep, Onychomycosis 110.1 and DM neuro manif type II 250.60 [address] [id number] [place] [address] Sep, Chronic pain 338.29 ; Chronic airway obstruction, not elsewhere classified 496 ; Osteoarthritis of knees, bilateral 715.96 and On potassium wasting diuretic therapy V58.69 [place] [id number] [place] [address] Sep, Insect bites 919.4 ; Sinusitis 473.9 and GERD (gastroesophageal reflux disease) 530.81 [place] [id number] [place] [address] Aug, Depression, major, recurrent, moderate 296.32 and Posttraumatic stress disorder 309.81 [place] [address] [facility] [id number] [address] Aug, [facility] [address] [facility] [id number] [place] [address] Aug, [facility] [address] [facility] [id number] [address] Aug, [facility] [id number] [address] July, Major depressive disorder, recurrent episode, moderate 296.32 and Posttraumatic stress disorder 309.81 [facility] [address] [facility] [id number] [place] [address] July, [facility] [id number] [place] [address] July, [facility] [address], [place] [address] July, [facility] [address] [place] [address] July, [facility] [address] [place] [address] Jun, [facility] [address] [place] [address] Jun, [facility] [address], [place] [address] May, [facility] [address] [facility] [id number], [place] [address] May, [facility] [address] [facility] [id number] [place] [address] May, [facility] [address] [facility] [id number] [place] [address] May, [facility] [id number] [place] [address] May, [facility] [place] [facility] [address] [id number] [place] [address] May, [facility] [place] [facility] [address] [id number] [place] [address] May, [facility] [place] [facility] [address] [id number] [place] [address] May, [facility] [place] [facility] [address] [id number] [place] [address] May, [facility] [place] [facility] [address] [id number] [place] [address] Apr, 2014 [facility] [place] [facility] [address] [id number] [place] [address] Apr, 2014 [facility] [place] [facility] [address] [facility] [id number] [place] [address] Apr, 2014 [facility] [place] [facility] [address] [id number] [place] [address] Apr, 2014 [facility] [place] [facility] [address] [facility] [id number] [place] [address] Apr, [facility] [place] [facility] [address] [facility] [id number] [place] [address] Apr, [facility] [place] [facility] [address] [facility] [id number] [place] [address] Apr, [facility] [place] [facility] [address] [id number], [place] [address] Apr, 2014 [facility] [place] [facility] [address] [id number] [place] [address] Apr, [facility] [place] [facility] [address] [id number] [place] [address] Mar, [facility] [place] [facility] [address] [id number], [place] [address] Mar, [facility] [place] [facility] [address] [id number], [place] [address] Mar, [facility] [address] [id number] [place] [address] Mar, [facility] [place] [facility] [address] [id number] [place] [address] Mar, [facility] [place] [facility] [address] [id number] [place] [address] 15 Mar, 2014 [facility] [place] [facility] [address] [id number] [place] [address] 15 Mar, 2014 [facility] [place] [facility] [address] [id number] [place] [address] Mar, [facility] [place] [facility] [address] [id number] [place] [address] Mar, [facility] [place] [facility] [address] [id number], [place] [address] Mar, [facility] [place] [facility] [address] [id number] [place] [address] Mar, [facility] [place] [facility] [address] [id number] [place] [address] Mar, [facility] [place] [facility] [address] [id number] [place] [address] Mar, [facility] [place] [facility] [address] [id number], [place] [address] Mar, [facility] [place] [facility] [address] [id number], [place] [address] Mar, [facility] [place] [facility] [address] [id number], [place] [address] Mar, [facility] [place] [facility] [address] [id number], [place] [address] Mar, [facility] [place] [facility] [address] [id number], [place] [address] Mar, [facility] [place] [facility] [address] [id number] [place] [address] 16 Feb, 2014 [facility] [place] [facility] [address] [id number] [place] [address] 16 Feb, 2014 [facility] [place] [facility] [address] [id number] [place] [address] 15 Feb, 2014 [facility] [place] [facility] [address] [id number] [place] [address] 15 Feb, 2014 [facility] [place] [facility] [address] [id number] [place] [address] 15 Feb, 2014 [facility] [place] [facility] [address] [id number] [place] [address] Feb, [facility] [place] [facility] [address] [id number] [place] [address] Jan, [facility] [place] [facility] [address] [id number] [place] [address] Jan, [facility] [place] [facility] [address] [id number] [place] [address] Jan, [facility] [place] [facility] [address] [id number] [place] [address] Jan, [facility] [place] [facility] [address] [id number] [place] [address] Jan, [facility] [place] [facility] [address] [id number] [place] [address] Jan, [facility] [place] [facility] [address] [id number] [place] [address] Jan, [facility] [place] [facility] [address] [id number] [place] [address] Jan, [facility] [place] [facility] [address] [id number] [place] [address] Jan, [facility] [place] [facility] [address] [id number] [place] [address] Jan, [facility] [place] [facility] [address] [id number] [place] [address] Dec, [facility] [place] [facility] [address] [id number] [place] [address] Dec, [facility] [place] [facility] [address] [id number] [place] [address] Dec, [facility] [place] [facility] [address] [id number] [place] [address] Dec, [facility] [place] [facility] [address] [id number] [place] [address] Nov, [facility] [place] [facility] [address] [id number] [place] [address] Nov, [facility] [place] [facility] [address] [id number] [place] [address] Nov, [facility] [place] [facility] [address] [id number] [place] [address] Nov, [facility] [place] [facility] [address] [id number] [place] [address] Nov, [facility] [place] [facility] [address] [id number] [place] [address] Nov, [facility] [place] [facility] [address] [id number], [place] [address] Oct, [facility] [place] [facility] [address] [id number], [place] [address] Oct, [facility] [place] [facility] [address] [id number] [place] [address] Oct, [facility] [place] [facility] [address] [id number] [place] [address] Oct, [facility] [place] [facility] [address] [id number] [place] [address] Sep, [facility] [place] [facility] [address] [id number] [place] [address] Sep, [facility] [place] [facility] [address] [id number] [place] [address] Sep, [facility] [place] [facility] [address] [id number] [place] [address] Sep, [facility] [place] [facility] [address] [id number] [place] [address] Sep, [facility] [place] [facility] [address] [id number] [place] [address] Sep, [facility] [place] [facility] [address] [id number] [place] [address] July, [facility] [place] [facility] [address] [id number] [place] [address] July, [facility] [place] [facility] [address] [id number] [place] [address] July, [facility] [place] [facility] [address] [id number] [place] [address] July, [facility] [place] [facility] [address] [id number] [place] [address] Jun, [facility] [place] [facility] [address] [id number] [place] [address] Jun, [facility] [place] [facility] [address] [id number] [place] [address] Jun, [facility] [place] [facility] [address] [id number] [place] [address] Jun, [facility] [place] [facility] [address] [id number] [place] [address] Jun, [facility] [place] [facility] [address] [id number] [place] [address] Jun, [facility] [place] [facility] [address] [id number] [place] [address] May, [facility] [place] [facility] [address] [id number] [place] [address] May, [facility] [place] [facility] [address] [id number] [place] [address] Apr, [facility] [place] [facility] [address] [id number] [place] [address] Apr, [facility] [place] [facility] [address] [id number] [place] [address] Apr, [facility] [place] [facility] [address] [id number] [place] [address] Apr, [facility] [place] [facility] [address] [id number] [place] [address] Apr, [facility] [place] [facility] [address] [id number] [place] [address] Apr, [facility] [place] [facility] [address] [id number] [place] [address] Apr, [facility] [place] [facility] [address] [id number] [place] [address] Mar, [facility] [place] [facility] [address] [id number] [place] [address] Mar, [facility] [place] [facility] [address] [id number] [place] [address] Mar, [facility] [place] [facility] [address] [id number] [place] [address] Mar, [facility] [place] [facility] [address] [id number] [place] [address] Mar, [facility] [place] [facility] [address] [id number] [place] [address] Mar, [facility] [place] [facility] [address] [id number] [place] [address] Mar, [facility] [place] [facility] [address] [id number] [place] [address] 13 Mar, 2013 [facility] [address] [id number] [place] [address] Feb, [facility] [place] [facility] [address] [id number] [place] [address] Feb, [facility] [place] [facility] [address] [id number] [place] [address] Feb, [facility] [place] [facility] [address] [id number] [place] [address] Feb, [facility] [place] [facility] [address] [id number] [place] [address] Feb, [facility] [place] [facility] [address] [id number] [place] [address] Feb, [facility] [place] [facility] [address] [id number] [place] [address] Feb, [facility] [place] [facility] [address] [id number] [place] [address] Jan, [facility] [place] [facility] [address] [id number] [place] [address] Jan, [facility] [place] [facility] [address] [id number] [place] [address] Jan, [facility] [place] [facility] [address] [id number] [place] [address] Jan, [facility] [place] [facility] [address] [id number], [place] [address] Jan, [facility] [place] [facility] [address] [id number] [place] [address] Jan, [facility] [place] [facility] [address] [id number] [place] [address] Jan, [facility] [place] [facility] [address] [id number] [place] [address] Jan, [facility] [place] [facility] [address] [id number] [place] [address] Dec, 2012 [facility] [place] [facility] [address] [id number] [place] [address] Dec, 2012 [facility] [place] [facility] [address] [id number] [place] [address] Dec, 2012 [facility] [place] [facility] [address] [id number] [place] [address] Dec, 2012 [facility] [place] [facility] [address] [id number] [place] [address] Dec, 2012 [facility] [place] [facility] [address] [id number] [place] [address] Dec, 2012 [facility] [place] [facility] [address] [id number] [place] [address] Dec, [facility] [place] [facility] [address] [id number] [place] [address] Dec, [facility] [place] [facility] [address] [id number] [place] [address] 16 Dec, 2012 [facility] [place] [facility] [address] [id number] [place] [address] 04 Dec, 2012 [facility] [place] [facility] [address] [id number] [id number] 27 Nov, 2012 [facility] [place] [facility] [address] [facility] [id number] [id number] 27 Nov, 2012 [facility] [place] [facility] [address] [id number], [place] [address] 24 Nov, 2012 [facility] [place] [facility] [address] [id number] [place] [address] 20 Sep, 2012 [facility] [place] [facility] [address] [id number] [place] [address] 19 Nov, 2012 [facility] [place] [facility] [address] [id number] [place] [address] Nov, [facility] [place] [facility] [address] [id number] [place] [address] Nov, [facility] [place] [facility] [address] [id number] [place] [address] Nov, [facility] [place] [facility] [address] [id number] [place] [address] Oct, [facility] [place] [facility] [address] [id number] [place] [address] Oct, [facility] [place] [facility] [address] [id number] [place] [address] Oct, [facility] [place] [facility] [address] [id number] [place] [address] Sep, [facility] [place] [facility] [address] [id number] [place] [address] Sep, [facility] [place] [facility] [address] [id number] [place] [address] Sep, [facility] [place] [facility] [address] [id number] [place] [address] Sep, [facility] [place] [facility] [address] [id number] [place] [address] Sep, [facility] [place] [facility] [address] [id number] [place] [address] Aug, [facility] [place] [facility] [address] [id number], [place] [address] Aug, [facility] [place] [facility] [address] [id number] [place] [address] Aug, [facility] [place] [facility] [address] [id number] [place] [address] Aug, [facility] [place] [facility] [address] [id number], [place] [address] Aug, [facility] [place] [facility] [address] [id number], [place] [address] Aug, [facility] [address] [id number] [place] [address] July, [facility] [address] [id number] [place] [address] July, [facility] [address] [id number] [place] [address] July, [facility] [address] [id number] [place] [address] July, [facility] [address] [id number] [place] [address] July, [facility] [address] [id number] [place] [address] July, [facility] [address] [id number] [place] [address] Jun, [facility] [address] [id number] [place] [address] Jun, [facility] [address] [id number] [place] [address] Jun, [facility] [address] [id number] [place] [address] Jun, [facility] [address] [id number] [place] [address] May, [facility] [address] [id number] [place] [address] May, [facility] [address] [id number] [place] [address] May, [facility] [place] [facility] [address] [id number] [place] [address] Apr, [facility] [address] [id number] [place] [address] Mar, [facility] [place] [facility] [address] [id number] [place] [address] 18 Mar, 2012 [facility] [place] [facility] [address] [id number] [place] [address] 17 Mar, 2012 [facility] [place] [facility] [address] [id number] [place] [address] 16 Mar, 2012 [facility] [place] [facility] [address] [id number] [place] [address] 15 Mar, 2012 [facility] [place] [facility] [address] [id number] [place] [address] 31 Feb, 2012 [facility] [place] [facility] [address] [id number] [place] [address] Feb, [facility] [place] [facility] [address] [id number] [place] [address] 17 Feb, 2012 [facility] [place] [facility] [address] [id number] [place] [address] 17 Feb, 2012 [facility] [place] [facility] [address] [id number] [place] [address] Jan, [facility] [place] [facility] [address] [id number] [place] [address] Jan, [facility] [place] [facility] [address] [id number] [place] [address] Jan, [facility] [place] [facility] [address] [id number] [place] [address] Jan, [facility] [place] [facility] [address] [id number] [place] [address] Dec, [facility] [place] [facility] [address] [id number] [place] [address] Dec, [facility] [place] [facility] [address] [id number] [place] [address] Nov, [facility] [place] [facility] [address] [id number] [place] [address] Oct, [facility] [address] [id number] [place] [address] Oct, [facility] [address] [id number] [place] [address] Oct, [facility] [address] [id number] [place] [address] Oct, [facility] [address] [id number] [place] [address] Oct, [facility] [address] [id number] [place] [address] Sep, [facility] [address] [id number] [place] [address] Sep, [facility] [address] [id number] [place] [address] Aug, [facility] [address] [place] [id number] Aug, [facility] [address] [id number] [place] [address] Aug, [facility] [address] [id number] [place] [address] July, [facility] [address] [id number] [place] [address] July, [facility] [address] [id number] [place] [address] Jun, [facility] [address] [id number] [place] [address] Jun, [facility] [address] [id number] [place] [address] 16 Jun, 2011 [facility] [address] [id number] [place] [address] Jun, [facility] [address] [id number] [place] [address] 15 Apr, 2011 [facility] [address] [id number] [place] [address] 15 Apr, 2011 [facility] [place] [facility] [address] [id number] [place] [address] 10 Apr, 2011 [facility] [address] [id number] [place] [address] Mar, [facility] [place] [facility] [address] [id number] [place] [address] Mar, [facility] [address] [id number] [place] [address] Mar, [facility] [address] [id number] [place] [address] Mar, [facility] [address] [id number] [place] [address] Mar, [facility] [address] [id number] [place] [address] Jan, [facility] [address] [id number] [place] [address] Jan, [facility] [place] [facility] [address] [facility] [id number] [place] [address] Jan, [facility] [address] [id number] [place] [address] Mar, [facility] [place] [facility] [address] [id number] [place] [address] Mar, [facility] [place] [facility] [address] [id number] [place] [address] Feb, [facility] [place] [facility] [address] [id number] [place] [address] 16 Feb, 2010 [facility] [place] [facility] [address] [facility] [id number] [place] [address] 16 Feb, 2010 [facility] [place] [facility] [address]005[address], [place] [address] 17 Jan, 2010 [facility] [address], [place] [address] Jan, [facility] [address], [place] [address] Dec, [facility] [address], [place] [address] Dec, [facility] [address], [place] [address] May, [facility] [id number] [place] [address] Apr, [facility] [id number] [place] [address] Feb, [facility] [id number] [place] [address] Feb, [facility] [id number] [place] [address] Jan, [facility] [id number] [place] [address] Jan, [facility] [address], [place] [address] Jan, [facility] [address], [place] [address] Jan, [facility] [address], [place] [address] Jan, IMMUNIZATIONS No Known Immunizations SOCIAL HISTORY Never Assessed REASON FOR VISIT Controlled Medication Refill PLAN OF CARE VITAL SIGNS MEDICATIONS Medication Instructions Dosage Frequency Start Date End Date Duration Status MS Contin 30 MG Orally every 12 hrs 1 tablet 12h 23 Aug, 2016 28 days Active RESULTS No Results [...]
--- OUTSIDE RECORDS SUMMARY | 2018-10-04 06:56 | XMS REPORT ---
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 Name Role Phone KATHYBRIAN VILLEGASY Unavailable PROBLEMS Type Condition ICD9-CM Code ZOC52-BF Code Onset Dates Condition Status SNOMED Code Problem Primary osteoarthritis of both knees M17.0 Active 706493473 Problem Nocturnal hypoxia G47.34 Active 603609992 Problem Chronic prescription opiate use Z79.891 Active 676743924 Problem Pure hypercholesterolemia E78.0 Active 153082108 Problem Acute right-sided low back pain with right-sided sciatica M54.41 Active 10430936 Problem Type 2 diabetes mellitus with diabetic polyneuropathy E11.42 Active 144787447 Problem Severe major depression with psychotic features F32.3 Active 84005319 Problem Obesity, morbid, BMI 40.0-49.9 E66.01 Active 104194480 Problem Posttraumatic stress disorder F43.10 Active 07990921 Problem Primary insomnia F51.01 Active 5121268 Problem Mood disorder F39 Active 19766763 Problem History of DVT (deep vein thrombosis) Z86.718 Active 207823777 Problem Chronic pain syndrome G89.4 Active 418190600 Problem Chronic systolic (congestive) heart failure I50.22 Active 654228901 Problem Macrocytosis D75.89 Active 406683564 Problem Tobacco abuse Z72.0 Active 460137342 Problem Mild episode of recurrent major depressive disorder F33.0 Active 914729838 Problem BMI 45.0-49.9, adult Z68.42 Active 579772300 Problem Gastroesophageal reflux disease, esophagitis presence not specified K21.9 Active 382523798 Problem Non-ischemic cardiomyopathy I42.9 Active 33189493 Problem Essential hypertension I10 Active 31481702 Problem Major depressive disorder, recurrent episode, unspecified severity F33.9 Active 52628998 Problem PTSD (post-traumatic stress disorder) F43.10 Active 47819877 Problem MITCHELL treated with BiPAP G47.33 Active 71984783 Problem Chronic obstructive pulmonary disease, unspecified COPD type J44.9 Active 04361004 Problem History of weight loss surgery Z98.84 Active 734698546 ALLERGIES No Information ENCOUNTERS Encounter Location Date Diagnosis [place] [id number] [place] [address] Oct, [place] [address] [place] [id number] [place] [address] Sep, [place] [address] [place] [id number] [place] [address] Aug, Primary osteoarthritis of both knees M17.0 and Chronic pain syndrome G89.4 [place] [address] [address] July, Primary osteoarthritis of both knees M17.0 and Chronic pain syndrome G89.4 [place] [address] [place] [id number] [place] [address] July, Type 2 diabetes mellitus with diabetic polyneuropathy E11.42 ; Essential hypertension I10 ; Pure hypercholesterolemia E78.0 ; Chronic prescription opiate use Z79.891 ; Tobacco abuse Z72.0 ; Primary osteoarthritis of both knees M17.0 ; Primary insomnia F51.01 and BMI 45.0-49.9, adult Z68.42 [place] [address] [place] [address] July, Medicare annual wellness visit, initial Z00.00 [...] specified K21.9 and Encounter for immunization Z23 [place] [address] [place] [id number] [place] [address] July, Primary osteoarthritis of both knees M17.0 and Chronic pain syndrome G89.4 [facility] [address] [place] [address] Jun, Infection of right ear H66.91 ; Wheezing on auscultation R06.2 and BMI 45.0-49.9, adult Z68.42 [facility] [address] [place] [address] [id number] [place] [address] Jun, [facility] [address] [place] [id number] [place] [address] Jun, Primary osteoarthritis of both knees M17.0 and Chronic pain syndrome G89.4 [facility] [address] [place] [id number] [place] [address] May, [facility] [address] [place] [id number] [place] [address] May, BMI 45.0-49.9, adult Z68.42 ; Mood disorder F39 and Posttraumatic stress disorder F43.10 [facility] [address] [place] [place] [id number] [place] [address] May, [facility] [address] [place] [id number] [place] [address] May, Primary osteoarthritis of both knees M17.0 and Chronic pain syndrome G89.4 [facility] [address] [place] [id number] [place] [address] May, Mood disorder F39 [facility] [address] [id number] [place] [address] Apr, Type 2 diabetes mellitus with diabetic polyneuropathy E11.42 [facility] [address] [place] [id number] [place] [address] Apr, [facility] [address] [address] [id number] [place] [address] Apr, Primary osteoarthritis of both knees M17.0 and Chronic pain syndrome G89.4 [facility] [address] [address] Apr, Mood disorder F39 [facility] [address] [address] [id number] [place] [address] Mar, Mood disorder F39 and Posttraumatic stress disorder F43.10 [facility] [address] [place] [address] Mar, Primary osteoarthritis of both knees M17.0 and Chronic pain syndrome G89.4 [facility] [address] [place] [id number] [place] [address] Feb, Primary osteoarthritis of both knees M17.0 and Chronic pain syndrome G89.4 [facility] [address] [place] [address] Feb, Mood disorder F39 [place] [address] [place] [id number] [place] [address] Jan, Type 2 diabetes mellitus with diabetic polyneuropathy E11.42 ; Primary osteoarthritis of both knees M17.0 ; Mood disorder F39 ; Obesity, morbid, BMI 40.0-49.9 E66.01 ; Chronic prescription opiate use Z79.891 ; Acute suppurative otitis media of both ears without spontaneous rupture of tympanic membranes, recurrence not specified H66.003 and BMI 45.0-49.9, adult Z68.42 [facility] [address] [place] [address] Jan, Primary osteoarthritis of both knees M17.0 and Chronic pain syndrome G89.4 [facility] [address] [address] Dec, Mood disorder F39 and Posttraumatic stress disorder F43.10 [facility] [address] [place] [address] Dec, Primary osteoarthritis of both knees M17.0 and Chronic pain syndrome G89.4 [facility] [address] [place] [address] 18 Nov, 2016 Chronic pain syndrome G89.4 [facility] [address] [place] [address] 15 Nov, 2016 Primary osteoarthritis of both knees M17.0 and Chronic pain syndrome G89.4 [facility] [address] [place] [id number] [place] [address] 13 Nov, 2016 Type 2 diabetes mellitus with diabetic polyneuropathy E11.42 and Chronic pain syndrome G89.4 [facility] [address] [place] [id number] [place] [address] 12 Nov, 2016 Posttraumatic stress disorder F43.10 and Mood disorder F39 [facility] [address] [place] [id number] [place] [address] 18 Oct, 2016 Chronic pain syndrome G89.4 [facility] [address] [place] [id number] [place] [address] 16 Oct, 2016 Type 2 diabetes mellitus with diabetic polyneuropathy E11.42 ; BMI 45.0-49.9, adult Z68.42 ; Primary osteoarthritis of both knees M17.0 and Skin lesion L98.9 [facility] [address] [place] [id number] [place] [address] Oct, Chronic pain syndrome G89.4 [facility] [address] [place] [id number] [place] [address] Sep, Chronic pain syndrome G89.4 [facility] [address] [place] [id number] [place] [address] Sep, [facility] [address] [place] [address] Sep, Chronic pain syndrome G89.4 [facility] [address] [place] [id number] [place] [address] Aug, Chronic pain syndrome G89.4 [facility] [address] [place] [id number] [place] [address] Aug, [facility] [address] [address] Aug, Macrocytosis D75.89 and Pure hypercholesterolemia E78.0 [facility] [address] [place] [id number] [place] [address] Aug, Pure hypercholesterolemia E78.0 [facility] [address] [place] [id number] [place] [address] Aug, Macrocytosis D75.89 [facility] [address] [place] [id number] [place] [address] Aug, Pure hypercholesterolemia E78.0 ; Type 2 diabetes mellitus with diabetic polyneuropathy E11.42 ; MITCHELL treated with BiPAP G47.33 and Chronic pain syndrome G89.4 [place] [address] [place] [id number] [place] [address] Aug, [place] [address] [place] [id number] [place] [address] Aug, Hemorrhoids, unspecified hemorrhoid type K64.9 [place] [address] [place] [id number] [place] [address] Aug, Chronic pain syndrome G89.4 ; Type 2 diabetes mellitus with diabetic polyneuropathy E11.42 ; Hemorrhoids, unspecified hemorrhoid type K64.9 ; Tobacco abuse Z72.0 and Primary osteoarthritis of both knees M17.0 [place] [address] [place] [address] July, Chronic pain syndrome G89.4 [facility] [address] [address] July, [facility] [address] [place] [id number] [place] [address] Jun, Chronic pain syndrome G89.4 [facility] [address] [place] [address] Jun, Chronic pain syndrome G89.4 [facility] [address] [place] [id number] [place] [address] Jun, Severe major depression with psychotic features F32.3 and Posttraumatic stress disorder F43.10 [facility] [address] [place] [id number] [place] [address] Jun, Chronic pain syndrome G89.4 [facility] [address] [place] [id number] [place] [address] Jun, [facility] [address] [address] May, Chronic pain syndrome G89.4 [facility] [address] [address] May, Tobacco abuse Z72.0 [place] [address] [place] [id number] [place] [address] May, [facility] [address] [address] Apr, Chronic pain syndrome G89.4 [facility] [address] [place] [id number] [place] [address] Apr, [place] [address] [place] [id number] [place] [address] Apr, Right foot pain M79.671 [place] [address] [place] [id number] [place] [address] Mar, Type 2 diabetes mellitus with diabetic polyneuropathy E11.42 ; MITCHELL treated with BiPAP G47.33 ; Pure hypercholesterolemia E78.0 ; Chronic pain syndrome G89.4 ; Tobacco abuse Z72.0 and Obesity, morbid, BMI 40.0-49.9 E66.01 [facility] [address] [place] [id number] [place] [address] Mar, [facility] [address] [place] [id number] [place] [address] Mar, [facility] [address] [address] Mar, [facility] [address] [address] Mar, [facility] [address] [address] Mar, [facility] [address] [place] [address] Mar, Severe major depression with psychotic features F32.3 and Posttraumatic stress disorder F43.10 [facility] [address] [address] Mar, [facility] [address] [place] [address] Feb, [facility] [address] [place] [id number] [place] [address] Feb, [facility] [address] [place] [address] Jan, [facility] [address] [place] [address] Jan, [facility] [address] [place] [address] Dec, Posttraumatic stress disorder F43.10 and Severe major depression with psychotic features F32.3 [facility] [address] [address] Dec, Type 2 diabetes mellitus with diabetic polyneuropathy E11.42 ; Chronic pain syndrome G89.4 and Acute right-sided low back pain with right-sided sciatica M54.41 [facility] [address] [address] Dec, [facility] [address] [address] Dec, [facility] [address] [place] [address] Nov, [facility] [address] [place] [id number] [place] [address] Nov, [facility] [address] [place] [id number] [place] [address] Nov, [facility] [address] [place] [id number] [place] [address] Oct, [facility] [address] [address] Oct, [facility] [address] [address] Sep, Dental examination Z01.20 [facility] [address] [place] [id number] [place] [address] Sep, [facility] [address] [address] Sep, Type 2 diabetes mellitus with diabetic polyneuropathy E11.42 ; Chronic pain syndrome G89.4 ; Chronic prescription opiate use Z79.891 ; Injury of right index finger, sequela S69.91XS and Anejaculation N50.8 [facility] [address] [place] [id number] [place] [address] Aug, [facility] [address] [place] [id number] [place] [address] Aug, [facility] [address] [place] [id number] [place] [address] Aug, Cellulitis of finger of right hand L03.011 [facility] [address] [address] July, [facility] [address] [place] [id number] [place] [address] July, [facility] [address] [place] [id number] [place] [address] Jun, Onychomycosis B35.1 [facility] [address] [address] Jun, Severe major depression with psychotic features F32.3 and Posttraumatic stress disorder F43.10 [facility] [address], [place] [address] Jun, [facility] [address] [place] [id number] [place] [address] Jun, [facility] [address] [place] [address] Jun, [facility] [address] [place] [id number] [place] [address] May, Type 2 diabetes mellitus with diabetic polyneuropathy E11.42 [place] [address] [place] [id number] [place] [address] May, Type 2 diabetes mellitus with diabetic polyneuropathy E11.42 and Urinary hesitancy R39.11 [facility] [address] [place] [id number] [place] [address] May, Type 2 diabetes mellitus with diabetic polyneuropathy E11.42 ; Left hip pain M25.552 and Benign prostatic hyperplasia with lower urinary tract symptoms, unspecified morphology N40.1 [facility] [address] [address] May, [facility] [address] [place] [id number] [place] [address] Apr, Severe major depression with psychotic features F32.3 and Posttraumatic stress disorder F43.10 [facility] [address] [place] [id number] [place] [address] Apr, [facility] [address], [place] [address] Mar, [facility] [address] [place] [id number] [place] [address] Mar, Dysuria R30.0 and Urinary hesitancy R39.11 [facility] [address] [address] Mar, Onychomycosis B35.1 [facility] [address], [place] [address] 08 Mar, 2015 [facility] [address] [place] [id number] [place] [address] Feb, [facility] [address] [place] [id number] [place] [address] Jan, [facility] [address] [place] [id number] [place] [address] Jan, Posttraumatic stress disorder F43.10 and Severe major depression with psychotic features F32.3 [facility] [address] [place] [id number] [place] [address] Jan, [facility] [address] [place] [id number] [place] [address] Jan, Chronic pain syndrome G89.4 ; Type 2 diabetes mellitus with diabetic polyneuropathy E11.42 ; Decreased pedal pulses R09.89 and Paresthesia of both hands R20.2 [facility] [address] [address] Dec, Posttraumatic stress disorder F43.10 and Severe major depression with psychotic features F32.3 [facility] [address] [address] Dec, [facility] [address] [place] [address] Dec, [facility] [address] [place] [id number] [place] [address] Dec, Onychomycosis B35.1 [facility] [address], [place] [address] Dec, [facility] [address] [address] Dec, [facility] [address] [place] [id number] [place] [address] Nov, [facility] [address] [place] [id number] [place] [address] Oct, Depression, major, recurrent, moderate 296.32 and Posttraumatic stress disorder 309.81 [place] [address] [place] [id number] [place] [address] Oct, [facility] [address] [place] [id number] [place] [address] Oct, [place] [address] [place] [id number] [place] [address] Oct, [place] [address] [place] [id number] [place] [address] Sep, Posttraumatic stress disorder 309.81 and Depression, major, recurrent, moderate 296.32 [place] [address] [place] [id number] [place] [address] Sep, [place] [id number] [place] [address] Sep, Chronic airway obstruction, not elsewhere classified [address] [place] [id number] [place] [address] Sep, Onychomycosis 110.1 and DM neuro manif type II 250.60 [place] [id number] [place] [address] Sep, Chronic pain 338.29 ; Chronic airway obstruction, not elsewhere classified 496 ; Osteoarthritis of knees, bilateral 715.96 and On potassium wasting diuretic therapy V58.69 [address] [place] [address] Sep, Insect bites 919.4 ; Sinusitis 473.9 and GERD (gastroesophageal reflux disease) 530.81 [place] [address] [id number] [address] Aug, Depression, major, recurrent, moderate 296.32 and Posttraumatic stress disorder 309.81 [facility] [address] [place] [id number] [address] Aug, [facility] [address] [place] [id number] [address] Aug, [facility] [address] [facility] [id number] [place] [address] Aug, [facility] [address] [place] [id number] [address] July, Major depressive disorder, recurrent episode, moderate 296.32 and Posttraumatic stress disorder 309.81 [facility] [address], [place] [address] July, [facility] [id number] [address] July, [facility] [address], [place] [address] July, [facility] [address] [address] July, [facility] [address], [place] [address] Jun, [facility] [address], [place] [address] Jun, [facility] [id number] [address] May, [facility] [address], [place] [address] May, [facility] [id number] [address] May, [facility] [address], [place] [address] May, [facility] [place] [facility] [address] [id number] [place] [address] May, [facility] [place] [facility] [address] [id number] [place] [address] May, [facility] [place] [facility] [address] [facility] [id number] [place] [address] May, [facility] [place] [facility] [address] [id number] [place] [address] May, [facility] [place] [facility] [address] [id number] [place] [address] May, [facility] [place] [facility] [address] [id number] [place] [address] Apr, 2014 [facility] [place] [facility] [address] [facility] [id number] [place] [address] Apr, 2014 [facility] [place] [facility] [address] [id number] [place] [address] Apr, 2014 [facility] [place] [facility] [address] [id number] [place] [address] Apr, 2014 [facility] [place] [facility] [address] [facility] [id number] [place] [address] Apr, 2014 [facility] [place] [facility] [address] [facility] [id number] [place] [address] Apr, 2014 [facility] [place] [facility] [address] [facility] [id number] [address] Apr, 2014 [facility] [place] [facility] [address] [facility] [id number] [place] [address] Apr, 2014 [facility] [place] [facility] [address] [facility] [id number], [place] [address] Apr, 2014 [facility] [place] [facility] [address] [facility] [id number], [place] [address] Mar, [facility] [place] [facility] [address] [id number] [place] [address] 30 Mar, 2014 [facility] [place] [facility] [address] [id number] [place] [address] Mar, [facility] [place] [facility] [address] [id number] [place] [address] 23 Mar, 2014 [facility] [place] [facility] [address] [id number] [place] [address] 15 Mar, 2014 [facility] [place] [facility] [address] [id number] [place] [address] 15 Mar, 2014 [facility] [place] [facility] [address] [id number] [place] [address] 15 Mar, 2014 [facility] [place] [facility] [address] [id number] [place] [address] 15 Mar, 2014 [facility] [place] [facility] [address] [id number] [place] [address] 15 Mar, 2014 [facility] [place] [facility] [address] [id number] [place] [address] 15 Mar, 2014 [facility] [place] [facility] [address] [id number] [place] [address] 14 Mar, 2014 [facility] [place] [facility] [address] [id number] [place] [address] 14 Mar, 2014 [facility] [place] [facility] [address] [id number] [place] [address] 14 Mar, 2014 [facility] [place] [facility] [address] [id number] [place] [address] 14 Mar, 2014 [facility] [place] [facility] [address] [id number] [place] [address] 14 Mar, 2014 [facility] [place] [facility] [address] [id number] [place] [address] 14 Mar, 2014 [facility] [place] [facility] [address] [id number] [place] [address] Mar, [facility] [place] [facility] [address] [id number] [place] [address] Mar, [facility] [place] [facility] [address] [id number] [place] [address] Feb, [facility] [place] [facility] [address] [id number] [place] [address] Feb, [facility] [place] [facility] [address] [id number] [place] [address] Feb, [facility] [place] [facility] [address] [id number] [place] [address] Feb, [facility] [place] [facility] [address] [id number] [place] [address] Feb, [facility] [place] [facility] [address] [id number] [place] [address] Feb, [facility] [place] [facility] [address] [id number] [place] [address] Jan, [facility] [place] [facility] [address] [id number] [place] [address] Jan, [facility] [place] [facility] [address] [id number] [place] [address] Jan, [facility] [place] [facility] [address] [id number], [place] [address] Jan, [facility] [place] [facility] [address] [id number], [place] [address] Jan, [facility] [place] [facility] [address] [id number] [place] [address] Jan, [facility] [place] [facility] [address] [id number] [place] [address] Jan, [facility] [place] [facility] [address] [id number] [place] [address] Jan, [facility] [place] [facility] [address] [id number] [place] [address] Jan, [facility] [place] [facility] [address] [id number] [place] [address] Jan, [facility] [place] [facility] [address] [id number] [place] [address] Dec, [facility] [place] [facility] [address] [id number] [place] [address] Dec, [facility] [place] [facility] [address] [id number] [place] [address] Dec, [facility] [place] [facility] [address] [id number] [place] [address] Dec, [facility] [place] [facility] [address] [id number] [place] [address] 16 Nov, 2013 [facility] [place] [facility] [address] [id number] [place] [address] 16 Nov, 2013 [facility] [place] [facility] [address] [id number] [place] [address] Nov, 2013 [facility] [place] [facility] [address] [id number] [place] [address] Nov, 2013 [facility] [place] [facility] [address] [id number] [place] [address] Nov, 2013 [facility] [place] [facility] [address] [id number] [place] [address] Nov, 2013 [facility] [place] [facility] [address] [id number] [place] [address] Oct, [facility] [place] [facility] [address] [id number] [place] [address] Oct, [facility] [place] [facility] [address] [id number] [place] [address] Oct, [facility] [place] [facility] [address] [id number] [place] [address] Oct, [facility] [place] [facility] [address] [id number] [place] [address] Sep, [facility] [place] [facility] [address] [id number] [place] [address] Sep, [facility] [place] [facility] [address] [id number] [place] [address] Sep, [facility] [place] [facility] [address] [id number] [place] [address] Sep, [facility] [place] [facility] [address] [id number] [place] [address] Sep, [facility] [place] [facility] [address] [id number] [place] [address] Sep, [facility] [place] [facility] [address] [id number] [place] [address] July, [facility] [place] [facility] [address] [id number] [place] [address] July, [facility] [place] [facility] [address] [id number] [place] [address] July, [facility] [place] [facility] [address] [id number] [place] [address] July, [facility] [place] [facility] [address] [id number] [place] [address] Jun, [facility] [place] [facility] [address] [id number] [place] [address] Jun, [facility] [place] [facility] [address] [id number] [place] [address] Jun, [facility] [place] [facility] [address] [id number] [place] [address] Jun, [facility] [place] [facility] [address] [id number] [place] [address] Jun, [facility] [place] [facility] [address] [id number], [place] [address] Jun, [facility] [place] [facility] [address] [id number] [place] [address] May, [facility] [place] [facility] [address] [id number] [place] [address] May, [facility] [place] [facility] [address] [id number] [place] [address] Apr, [facility] [place] [facility] [address] [id number] [place] [address] Apr, [facility] [place] [facility] [address] [id number] [place] [address] Apr, [facility] [place] [facility] [address] [id number] [place] [address] Apr, [facility] [place] [facility] [address] [id number] [place] [address] Apr, [facility] [place] [facility] [address] [id number] [place] [address] Apr, [facility] [place] [facility] [address] [id number] [place] [address] Apr, [facility] [place] [facility] [address] [facility] [id number] [place] [address] Mar, [facility] [place] [facility] [address] [id number] [place] [address] Mar, [facility] [place] [facility] [address] [id number] [place] [address] Mar, [facility] [place] [facility] [address] [id number] [place] [address] Mar, [facility] [place] [facility] [address] [id number] [place] [address] Mar, [facility] [place] [facility] [address] [id number] [place] [address] Mar, [facility] [place] [facility] [address] [id number] [place] [address] Mar, [facility] [address] [id number] [place] [address] Mar, [facility] [address] [id number] [place] [address] Feb, [facility] [address] [id number] [place] [address] Feb, [facility] [address] [id number] [place] [address] Feb, [facility] [address] [id number] [place] [address] Feb, [facility] [address] [id number] [place] [address] Feb, [facility] [address] [id number] [place] [address] Feb, [facility] [address] [id number] [place] [address] Feb, [facility] [address] [id number] [place] [address] Jan, [facility] [address] [id number] [place] [address] Jan, [facility] [address] [id number], [place] [address] Jan, [facility] [address] [id number] [place] [address] Jan, [facility] [place] [facility] [address] [id number] [place] [address] Jan, [facility] [address] [id number] [place] [address] Jan, [facility] [address] [id number] [address] Jan, [facility] [place] [facility] [address] [id number] [address] Jan, [facility] [place] [facility] [address] [id number] [place] [address] Dec, [facility] [place] [facility] [address] [id number] [place] [address] Dec, [facility] [place] [facility] [address] [id number], [place] [address] Dec, [facility] [place] [facility] [address] [id number] [place] [address] Dec, [facility] [place] [facility] [address] [id number] [place] [address] Dec, [facility] [place] [facility] [address] [id number] [place] [address] Dec, [facility] [place] [facility] [address] [id number], [place] [address] Dec, [facility] [place] [facility] [address] [id number], [place] [address] Dec, [facility] [place] [facility] [address] [id number], [place] [address] Dec, [facility] [place] [facility] [address] [id number], [place] [address] Dec, [facility] [place] [facility] [address] [id number][place] [address] Nov, [facility] [place] [facility] [address] [id number][place] [address] Nov, [facility] [place] [facility] [address] [id number], [place] [address] 24 Nov, 2012 [facility] [place] [facility] [address] [id number], [place] [address] 20 Nov, 2012 [facility] [place] [facility] [address] [id number] [place] [address] Nov, [facility] [address] [id number] [place] [address] 13 Nov, 2012 [facility] [place] [facility] [address] [id number] [place] [address] 10 Nov, 2012 [facility] [place] [facility] [address] [id number] [place] [address] Nov, [facility] [place] [facility] [address] [id number] [place] [address] Oct, [facility] [place] [facility] [address] [id number] [place] [address] Oct, [facility] [place] [facility] [address] [id number] [place] [address] Oct, [facility] [address] [id number] [place] [address] Sep, [facility] [place] [facility] [address] [id number] [place] [address] Sep, [facility] [place] [facility] [address] [id number] [place] [address] Sep, [facility] [place] [facility] [address] [id number] [place] [address] Sep, [facility] [place] [facility] [address] [id number] [place] [address] Sep, [facility] [place] [facility] [address] [id number] [place] [address] Aug, [facility] [place] [facility] [address] [id number] [place] [address] Aug, [facility] [place] [facility] [address] [id number] [place] [address] Aug, [facility] [place] [facility] [address] [id number] [place] [address] Aug, [facility] [place] [facility] [address] [id number] [place] [address] Aug, [facility] [address] [id number] [place] [address] Aug, [facility] [address] [id number] [place] [address] July, [facility] [address] [id number] [place] [address] July, [facility] [address] [id number] [place] [address] July, [facility] [address] [id number] [place] [address] July, [facility] [address] [id number] [place] [address] July, [facility] [address] [id number] [place] [address] July, [facility] [address] [id number] [place] [address] Jun, [facility] [address] [id number] [place] [address] Jun, [facility] [address] [id number] [place] [address] Jun, [facility] [address] [id number] [place] [address] Jun, [facility] [address] [id number] [place] [address] May, [facility] [place] [facility] [address] [id number] [place] [address] May, [facility] [place] [facility] [address] [id number] [place] [address] May, [facility] [place] [facility] [address] [id number] [place] [address] Apr, [facility] [place] [facility] [address] [id number] [place] [address] Mar, [facility] [place] [facility] [address] [id number] [place] [address] 18 Mar, 2012 [facility] [place] [facility] [address] [facility] [id number] [place] [address] 17 Mar, 2012 [facility] [place] [facility] [address] [id number], [place] [address] 16 Mar, 2012 [facility] [place] [facility] [address] [id number] [place] [address] Mar, [facility] [place] [facility] [address] [facility] [id number] [place] [address] Feb, [facility] [place] [facility] [address] [id number] [place] [address] Feb, [facility] [place] [facility] [address] [id number], [place] [address] Feb, [facility] [place] [facility] [address] [id number], [place] [address] Feb, [facility] [place] [facility] [address] [facility] [id number], [place] [address] Jan, [facility] [place] [facility] [address] [id number], [place] [address] Jan, [facility] [place] [facility] [address] [id number], [place] [address] Jan, [facility] [place] [facility] [address] [id number], [place] [address] Jan, [facility] [place] [facility] [address] [facility] [id number], [place] [address] Dec, [facility] [place] [facility] [address] [facility] [id number], [place] [address] Dec, [facility] [place] [facility] [address] [id number] [place] [address] Nov, [facility] [address] [id number] [place] [address] Oct, [facility] [address] [id number] [place] [address] Oct, [facility] [address] [id number] [place] [address] Oct, [facility] [address] [id number] [place] [address] Oct, [facility] [address] [id number] [place] [address] Oct, [facility] [address] [id number] [place] [address] Sep, [facility] [address] [id number] [place] [address] Sep, [facility] [address] [id number] [place] [address] Aug, [facility] [address] [place] [id number] Aug, [facility] [address] [id number] [place] [address] Aug, [facility] [address] [id number] [place] [address] July, [facility] [address] [id number] [place] [address] July, [facility] [address] [id number] [place] [address] Jun, [facility] [address] [id number] [place] [address] Jun, [facility] [address] [id number] [place] [address] Jun, [facility] [address] [id number] [place] [address] 13 Jun, 2011 [facility] [address] [id number] [place] [address] 15 Apr, 2011 [facility] [place] [facility] [address] [id number] [place] [address] 15 Apr, 2011 [facility] [place] [facility] [address] [id number] [place] [address] 10 Apr, 2011 [facility] [place] [facility] [address] [id number] [place] [address] Mar, [facility] [place] [facility] [address] [id number] [place] [address] Mar, [facility] [address] [id number] [place] [address] Mar, [facility] [address] [id number] [place] [address] Mar, [facility] [address] [id number] [place] [address] Mar, [facility] [place] [facility] [address] [id number] [place] [address] Jan, [facility] [address] [id number] [place] [address] Jan, [facility] [place] [facility] [address] [id number] [place] [address] Jan, [facility] [place] [facility] [address] [id number] [place] [address] Mar, [facility] [place] [facility] [address] [id number] [place] [address] Mar, [facility] [place] [facility] [address] [id number] [place] [address] Feb, [facility] [place] [facility] [address] [id number] [place] [address] 16 Feb, 2010 [facility] [address] [id number], [place] [address] 16 Feb, 2010 [facility] [address] [facility] [id number], [place] [address] Jan, [facility] [id number], [place] [address] Jan, [facility] [id number], [place] [address] Dec, [facility] [id number], [place] [address] Dec, [facility] [id number] [place] [address] May, [facility] [id number], [place] [address] Apr, [facility] [id number], [place] [address] Feb, [facility] [id number], [place] [address] Feb, [facility] [id number], [place] [address] Jan, [facility] [id number], [place] [address] Jan, [facility] [id number], [place] [address] Jan, [facility] [id number], [place] [address] Jan, [facility] [id number], [place] [address] Jan, IMMUNIZATIONS No Known Immunizations SOCIAL HISTORY Never Assessed REASON FOR VISIT Lab (walk-in) PLAN OF CARE VITAL SIGNS MEDICATIONS Unknown Medications RESULTS No Results PROCEDURES Procedure Date Ordered Result Body Site LAB NOT BILLED BY [facility] Apr 20, 2017 VENIPUNCT, ROUTINE* Apr 20, 2017 INSTRUCTIONS MEDICATIONS ADMINISTERED No Known [...]
--- OUTSIDE RECORDS SUMMARY | 2018-10-04 06:57 | XMS REPORT ---
Author Author ESTHER CHAVEZ Organization 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 Name Role Phone KATHY ESTHER Unavailable PROBLEMS Type Condition ICD9-CM Code CAT11-QG Code Onset Dates Condition Status SNOMED Code Problem Non-ischemic cardiomyopathy I42.9 Active 95211004 Problem Gastroesophageal reflux disease, esophagitis presence not specified K21.9 Active 364485469 Problem History of DVT (deep vein thrombosis) Z86.718 Active 477732370 Problem Chronic prescription opiate use Z79.891 Active 473539016 Problem Type 2 diabetes mellitus with diabetic polyneuropathy E11.42 Active 599707171 Problem Chronic pain syndrome G89.4 Active 405586654 Problem PTSD (post-traumatic stress disorder) F43.10 Active 09730875 Problem Major depressive disorder, recurrent episode, unspecified severity F33.9 Active 37880252 Problem Chronic obstructive pulmonary disease, unspecified COPD type J44.9 Active 11082818 Problem Essential hypertension I10 Active 17717447 Problem History of weight loss surgery Z98.84 Active 329462065 Problem Nocturnal hypoxia G47.34 Active 275704547 Problem MITCHELL treated with BiPAP G47.33 Active 39693176 Problem Pure hypercholesterolemia E78.0 Active 991177035 Problem Chronic systolic (congestive) heart failure I50.22 Active 046686633 ALLERGIES Unknown Allergies SOCIAL HISTORY No smoking Hx information available PLAN OF CARE VITAL SIGNS MEDICATIONS Unknown Medications RESULTS No Results PROCEDURES No Known procedures IMMUNIZATIONS No Known Immunizations
--- OUTSIDE RECORDS SUMMARY | 2018-10-04 06:57 | XMS REPORT ---
Author Author KATHY ESTHER [facility] Address [address] [place] [address] Care Team Providers Care Ambulatory Technologist Name Role Phone KATHYBRIAN VILLEGASY Unavailable PROBLEMS Type Condition ICD9-CM Code GHN13-PA Code Onset Dates Condition Status SNOMED Code Problem Primary osteoarthritis of both knees M17.0 Active 743535482 Problem Nocturnal hypoxia G47.34 Active 048806921 Problem Chronic prescription opiate use Z79.891 Active 080593852 Problem Pure hypercholesterolemia E78.0 Active 767509437 Problem Acute right-sided low back pain with right-sided sciatica M54.41 Active 71606459 Problem Type 2 diabetes mellitus with diabetic polyneuropathy E11.42 Active 069206992 Problem Severe major depression with psychotic features F32.3 Active 49401280 Problem Obesity, morbid, BMI 40.0-49.9 E66.01 Active 112252228 Problem Posttraumatic stress disorder F43.10 Active 16073401 Problem Primary insomnia F51.01 Active 9584342 Problem Mood disorder F39 Active 92163583 Problem History of DVT (deep vein thrombosis) Z86.718 Active 512984264 Problem Chronic pain syndrome G89.4 Active 470182421 Problem Chronic systolic (congestive) heart failure I50.22 Active 314689260 Problem Macrocytosis D75.89 Active 409130625 Problem Tobacco abuse Z72.0 Active 834923177 Problem Mild episode of recurrent major depressive disorder F33.0 Active 202520318 Problem BMI 45.0-49.9, adult Z68.42 Active 981283967 Problem Gastroesophageal reflux disease, esophagitis presence not specified K21.9 Active 794079384 Problem Non-ischemic cardiomyopathy I42.9 Active 37609681 Problem Essential hypertension I10 Active 63508259 Problem Major depressive disorder, recurrent episode, unspecified severity F33.9 Active 39412672 Problem PTSD (post-traumatic stress disorder) F43.10 Active 91743033 Problem MITCHELL treated with BiPAP G47.33 Active 52765231 Problem Chronic obstructive pulmonary disease, unspecified COPD type J44.9 Active 24548458 Problem History of weight loss surgery Z98.84 Active 879393588 ALLERGIES No Information ENCOUNTERS Encounter Location Date Diagnosis [place] [id number] [place] [address] Oct, [place] [address] [place] [id number] [place] [address] Sep, [place] [address] [place] [id number] [place] [address] Aug, Primary osteoarthritis of both knees M17.0 and Chronic pain syndrome G89.4 [place] [address] [address] July, Primary osteoarthritis of both knees M17.0 and Chronic pain syndrome G89.4 [place] [address] [place] [id number] [place] [address] July, Type 2 diabetes mellitus with diabetic polyneuropathy E11.42 ; Essential hypertension I10 ; Pure hypercholesterolemia E78.0 ; Chronic prescription opiate use Z79.891 ; Tobacco abuse Z72.0 ; Primary osteoarthritis of both knees M17.0 ; Primary insomnia F51.01 and BMI 45.0-49.9, adult Z68.42 [place] [id number] [place] [address] July, Medicare annual wellness visit, initial Z00.00 [...] specified K21.9 and Encounter for immunization Z23 [place] [address] [place] [id number] [place] [address] July, Primary osteoarthritis of both knees M17.0 and Chronic pain syndrome G89.4 [facility] [id number] [place] [address] Jun, Infection of right ear H66.91 ; Wheezing on auscultation R06.2 and BMI 45.0-49.9, adult Z68.42 [facility] [address] [place] [id number] [place] [address] Jun, [facility] [address] [place] [id number] [place] [address] Jun, Primary osteoarthritis of both knees M17.0 and Chronic pain syndrome G89.4 [facility] [address] [place] [id number] [place] [address] May, [facility] [address] [place] [id number] [place] [address] May, BMI 45.0-49.9, adult Z68.42 ; Mood disorder F39 and Posttraumatic stress disorder F43.10 [facility] [address] [place] [id number] [place] [address] May, [facility] [address] [place] [id number] [place] [address] May, Primary osteoarthritis of both knees M17.0 and Chronic pain syndrome G89.4 [facility] [address] [place] [id number] [place] [address] May, Mood disorder F39 [facility] [address] [place] [id number] [place] [address] Apr, Type 2 diabetes mellitus with diabetic polyneuropathy E11.42 [facility] [address] [place] [id number] [place] [address] Apr, [facility] [address] [place] [id number] [place] [address] Apr, Primary osteoarthritis of both knees M17.0 and Chronic pain syndrome G89.4 [facility] [address] [address] Apr, Mood disorder F39 [facility] [address] [place] [id number] [place] [address] Mar, Mood disorder F39 and Posttraumatic stress disorder F43.10 [facility] [id number] [place] [address] Mar, Primary osteoarthritis of both knees M17.0 and Chronic pain syndrome G89.4 [facility] [address] [place] [id number] [place] [address] Feb, Primary osteoarthritis of both knees M17.0 and Chronic pain syndrome G89.4 [facility] [id number] [place] [address] Feb, Mood disorder F39 [place] [address] [place] [id number] [place] [address] Jan, Type 2 diabetes mellitus with diabetic polyneuropathy E11.42 ; Primary osteoarthritis of both knees M17.0 ; Mood disorder F39 ; Obesity, morbid, BMI 40.0-49.9 E66.01 ; Chronic prescription opiate use Z79.891 ; Acute suppurative otitis media of both ears without spontaneous rupture of tympanic membranes, recurrence not specified H66.003 and BMI 45.0-49.9, adult Z68.42 [facility] [id number] [place] [address] Jan, Primary osteoarthritis of both knees M17.0 and Chronic pain syndrome G89.4 [facility] [address], [place] [address] Dec, Mood disorder F39 and Posttraumatic stress disorder F43.10 [facility] [id number] [place] [address] Dec, Primary osteoarthritis of both knees M17.0 and Chronic pain syndrome G89.4 [facility] [id number] [place] [address] 18 Nov, 2016 Chronic pain syndrome G89.4 [facility] [id number] [place] [address] 15 Nov, 2016 Primary osteoarthritis of both knees M17.0 and Chronic pain syndrome G89.4 [facility] [address] [place] [id number] [place] [address] 13 Nov, 2016 Type 2 diabetes mellitus with diabetic polyneuropathy E11.42 and Chronic pain syndrome G89.4 [facility] [address] [place] [id number] [place] [address] 12 Nov, 2016 Posttraumatic stress disorder F43.10 and Mood disorder F39 [facility] [address] [place] [id number] [place] [address] 18 Oct, 2016 Chronic pain syndrome G89.4 [facility] [address] [place] [id number] [place] [address] 16 Oct, 2016 Type 2 diabetes mellitus with diabetic polyneuropathy E11.42 ; BMI 45.0-49.9, adult Z68.42 ; Primary osteoarthritis of both knees M17.0 and Skin lesion L98.9 [facility] [address] [place] [id number] [place] [address] Oct, Chronic pain syndrome G89.4 [facility] [address] [place] [id number] [place] [address] Sep, Chronic pain syndrome G89.4 [facility] [address] [place] [id number] [place] [address] Sep, [facility] [id number] [place] [address] Sep, Chronic pain syndrome G89.4 [facility] [address] [place] [id number] [place] [address] Aug, Chronic pain syndrome G89.4 [facility] [address] [place] [id number] [place] [address] Aug, [facility] [address], [place] [address] Aug, Macrocytosis D75.89 and Pure hypercholesterolemia E78.0 [facility] [address] [place] [id number] [place] [address] Aug, Pure hypercholesterolemia E78.0 [facility] [address] [place] [id number] [place] [address] Aug, Macrocytosis D75.89 [facility] [address] [place] [id number] [place] [address] Aug, Pure hypercholesterolemia E78.0 ; Type 2 diabetes mellitus with diabetic polyneuropathy E11.42 ; MITCHELL treated with BiPAP G47.33 and Chronic pain syndrome G89.4 [place] [address] [place] [id number] [place] [address] Aug, [place] [address] [place] [id number] [place] [address] Aug, Hemorrhoids, unspecified hemorrhoid type K64.9 [place] [address] [place] [id number] [place] [address] Aug, Chronic pain syndrome G89.4 ; Type 2 diabetes mellitus with diabetic polyneuropathy E11.42 ; Hemorrhoids, unspecified hemorrhoid type K64.9 ; Tobacco abuse Z72.0 and Primary osteoarthritis of both knees M17.0 [place] [id number] [place] [address] July, Chronic pain syndrome G89.4 [facility] [address], [place] [address] July, [facility] [address] [place] [id number] [place] [address] Jun, Chronic pain syndrome G89.4 [facility] [id number] [place] [address] Jun, Chronic pain syndrome G89.4 [facility] [address] [place] [id number] [place] [address] Jun, Severe major depression with psychotic features F32.3 and Posttraumatic stress disorder F43.10 [facility] [address] [place] [id number] [place] [address] Jun, Chronic pain syndrome G89.4 [facility] [address] [place] [id number] [place] [address] Jun, [facility] [address] [address] May, Chronic pain syndrome G89.4 [facility] [address] [address] May, Tobacco abuse Z72.0 [place] [address] [place] [id number] [place] [address] May, [facility] [address] [address] Apr, Chronic pain syndrome G89.4 [facility] [address] [place] [id number] [place] [address] Apr, [place] [address] [place] [id number] [place] [address] Apr, Right foot pain M79.671 [place] [address] [place] [id number] [place] [address] Mar, Type 2 diabetes mellitus with diabetic polyneuropathy E11.42 ; MITCHELL treated with BiPAP G47.33 ; Pure hypercholesterolemia E78.0 ; Chronic pain syndrome G89.4 ; Tobacco abuse Z72.0 and Obesity, morbid, BMI 40.0-49.9 E66.01 [facility] [address] [place] [id number] [place] [address] Mar, [facility] [address] [place] [id number] [place] [address] Mar, [facility] [address], [place] [address] Mar, [facility] [address], [place] [address] Mar, [facility] [address], [place] [address] Mar, [facility] [id number] [place] [address] Mar, Severe major depression with psychotic features F32.3 and Posttraumatic stress disorder F43.10 [facility] [address], [place] [address] Mar, [facility] [id number] [place] [address] Feb, [facility] [address] [place] [id number] [place] [address] Feb, [facility] [id number] [place] [address] Jan, [facility] [id number] [place] [address] Jan, [facility] [id number] [place] [address] Dec, Posttraumatic stress disorder F43.10 and Severe major depression with psychotic features F32.3 [facility] [address], [place] [address] Dec, Type 2 diabetes mellitus with diabetic polyneuropathy E11.42 ; Chronic pain syndrome G89.4 and Acute right-sided low back pain with right-sided sciatica M54.41 [facility] [address], [place] [address] Dec, [facility] [address], [place] [address] Dec, [facility] [id number] [place] [address] Nov, [facility] [address] [place] [id number] [place] [address] Nov, [facility] [address] [place] [id number] [place] [address] Nov, [facility] [address] [place] [id number] [place] [address] Oct, [facility] [address] [address] Oct, [facility] [address] [address] Sep, Dental examination Z01.20 [facility] [address] [place] [id number] [place] [address] Sep, [facility] [address] [address] Sep, Type 2 diabetes mellitus with diabetic polyneuropathy E11.42 ; Chronic pain syndrome G89.4 ; Chronic prescription opiate use Z79.891 ; Injury of right index finger, sequela S69.91XS and Anejaculation N50.8 [facility] [address] [place] [id number] [place] [address] Aug, [facility] [address] [place] [id number] [place] [address] Aug, [facility] [address] [place] [id number] [place] [address] Aug, Cellulitis of finger of right hand L03.011 [facility] [address] [address] July, [facility] [address] [place] [id number] [place] [address] July, [facility] [address] [place] [id number] [place] [address] Jun, Onychomycosis B35.1 [facility] [address], [place] [address] Jun, Severe major depression with psychotic features F32.3 and Posttraumatic stress disorder F43.10 [facility] [address], [place] [address] Jun, [facility] [address] [place] [id number] [place] [address] Jun, [facility] [id number] [place] [address] Jun, [facility] [address] [place] [id number] [place] [address] May, Type 2 diabetes mellitus with diabetic polyneuropathy E11.42 [place] [address] [place] [id number] [place] [address] May, Type 2 diabetes mellitus with diabetic polyneuropathy E11.42 and Urinary hesitancy R39.11 [facility] [address] [place] [id number] [place] [address] May, Type 2 diabetes mellitus with diabetic polyneuropathy E11.42 ; Left hip pain M25.552 and Benign prostatic hyperplasia with lower urinary tract symptoms, unspecified morphology N40.1 [facility] [address], [place] [address] May, [facility] [address] [place] [id number] [place] [address] Apr, Severe major depression with psychotic features F32.3 and Posttraumatic stress disorder F43.10 [facility] [address] [place] [id number] [place] [address] Apr, [facility] [address], [place] [address] Mar, [facility] [address] [place] [id number] [place] [address] Mar, Dysuria R30.0 and Urinary hesitancy R39.11 [facility] [address], [place] [address] Mar, Onychomycosis B35.1 [facility] [address], [place] [address] 08 Mar, 2015 [facility] [address] [place] [id number] [place] [address] Feb, [facility] [address] [place] [id number] [place] [address] Jan, [facility] [address] [place] [id number] [place] [address] Jan, Posttraumatic stress disorder F43.10 and Severe major depression with psychotic features F32.3 [facility] [address] [place] [id number] [place] [address] Jan, [facility] [address] [place] [id number] [place] [address] Jan, Chronic pain syndrome G89.4 ; Type 2 diabetes mellitus with diabetic polyneuropathy E11.42 ; Decreased pedal pulses R09.89 and Paresthesia of both hands R20.2 [facility] [address], [place] [address] Dec, Posttraumatic stress disorder F43.10 and Severe major depression with psychotic features F32.3 [facility] [address], [place] [address] Dec, [facility] [id number] [place] [address] Dec, [facility] [address] [place] [id number] [place] [address] Dec, Onychomycosis B35.1 [facility] [address], [place] [address] Dec, [facility] [address], [place] [address] Dec, [facility] [address] [place] [id number] [place] [address] Nov, [facility] [address] [place] [id number] [place] [address] Oct, Depression, major, recurrent, moderate 296.32 and Posttraumatic stress disorder 309.81 [place] [address] [place] [id number] [place] [address] Oct, [facility] [address] [place] [id number] [place] [address] Oct, [place] [address] [place] [id number] [place] [address] Oct, [place] [address] [place] [id number] [place] [address] Sep, Posttraumatic stress disorder 309.81 and Depression, major, recurrent, moderate 296.32 [place] [address] [place] [id number] [place] [address] Sep, [place] [id number] [place] [address] Sep, Chronic airway obstruction, not elsewhere classified [address] [place] [id number] [place] [address] Sep, Onychomycosis 110.1 and DM neuro manif type II 250.60 [place] [id number] [place] [address] Sep, Chronic pain 338.29 ; Chronic airway obstruction, not elsewhere classified 496 ; Osteoarthritis of knees, bilateral 715.96 and On potassium wasting diuretic therapy V58.69 [address] [place] [address] Sep, Insect bites 919.4 ; Sinusitis 473.9 and GERD (gastroesophageal reflux disease) 530.81 [place] [address] [id number], [place] [address] Aug, Depression, major, recurrent, moderate 296.32 and Posttraumatic stress disorder 309.81 [facility] [address] [place] [id number], [place] [address] Aug, [facility] [address] [place] [id number], [place] [address] Aug, [facility] [address] [facility] [id number] [place] [address] Aug, [facility] [address] [id number], [place] [address] July, Major depressive disorder, recurrent episode, moderate 296.32 and Posttraumatic stress disorder 309.81 [facility] [address], [place] [address] July, [facility] [id number] [place] [address] July, [facility] [address], [place] [address] July, [facility] [address], [place] [address] July, [facility] [address], [place] [address] Jun, [facility] [address], [place] [address] Jun, [facility] [id number], [place] [address] May, [facility] [address], [place] [address] May, [facility] [id number], [place] [address] May, [facility] [address], [place] [address] May, [facility] [place] [facility] [address] [id number] [place] [address] May, [facility] [place] [facility] [address] [id number] [place] [address] May, [facility] [place] [facility] [address] [facility] [id number] [place] [address] May, [facility] [place] [facility] [address] [id number] [place] [address] May, [facility] [place] [facility] [address] [id number] [place] [address] May, [facility] [place] [facility] [address] [id number] [place] [address] Apr, 2014 [facility] [place] [facility] [address] [facility] [id number] [place] [address] Apr, 2014 [facility] [place] [facility] [address] [id number] [place] [address] Apr, 2014 [facility] [place] [facility] [address] [id number] [place] [address] Apr, 2014 [facility] [place] [facility] [address] [facility] [id number] [place] [address] Apr, 2014 [facility] [place] [facility] [address] [facility] [id number] [place] [address] Apr, 2014 [facility] [place] [facility] [address] [facility] [id number], [place] [address] Apr, 2014 [facility] [place] [facility] [address] [facility] [id number] [place] [address] Apr, 2014 [facility] [place] [facility] [address] [facility] [id number], [place] [address] Apr, 2014 [facility] [place] [facility] [address] [facility] [id number], [place] [address] Mar, [facility] [place] [facility] [address] [id number] [place] [address] 30 Mar, 2014 [facility] [place] [facility] [address] [id number] [place] [address] Mar, [facility] [place] [facility] [address] [id number] [place] [address] 23 Mar, 2014 [facility] [place] [facility] [address] [id number] [place] [address] 15 Mar, 2014 [facility] [place] [facility] [address] [id number] [place] [address] 15 Mar, 2014 [facility] [place] [facility] [address] [address] [id number] [place] [address] 15 Mar, 2014 [facility] [place] [facility] [address] [id number] [place] [address] 15 Mar, 2014 [facility] [place] [facility] [address] [id number] [place] [address] 15 Mar, 2014 [facility] [place] [facility] [address] [id number] [place] [address] 15 Mar, 2014 [facility] [place] [facility] [address] [id number] [place] [address] 14 Mar, 2014 [facility] [place] [facility] [address] [id number] [place] [address] 14 Mar, 2014 [facility] [place] [facility] [address] [id number] [place] [address] 14 Mar, 2014 [facility] [place] [facility] [address] [id number] [place] [address] 14 Mar, 2014 [facility] [place] [facility] [address] [id number] [place] [address] 14 Mar, 2014 [facility] [place] [facility] [address] [id number] [place] [address] 14 Mar, 2014 [facility] [place] [facility] [address] [id number] [place] [address] Mar, [facility] [place] [facility] [address] [id number] [place] [address] Mar, [facility] [place] [facility] [address] [id number] [place] [address] Feb, [facility] [place] [facility] [address] [id number] [place] [address] Feb, [facility] [place] [facility] [address] [id number] [place] [address] Feb, [facility] [place] [facility] [address] [id number] [place] [address] Feb, [facility] [place] [facility] [address] [id number] [place] [address] Feb, [facility] [place] [facility] [address] [id number] [place] [address] Feb, [facility] [place] [facility] [address] [id number] [place] [address] Jan, [facility] [place] [facility] [address] [id number] [place] [address] Jan, [facility] [place] [facility] [address] [id number] [place] [address] Jan, [facility] [place] [facility] [address] [id number], [place] [address] Jan, [facility] [place] [facility] [address] [id number], [place] [address] Jan, [facility] [place] [facility] [address] [id number] [place] [address] Jan, [facility] [place] [facility] [address] [id number] [place] [address] Jan, [facility] [place] [facility] [address] [id number] [place] [address] Jan, [facility] [place] [facility] [address] [id number] [place] [address] Jan, [facility] [place] [facility] [address] [id number] [place] [address] Jan, [facility] [place] [facility] [address] [id number] [place] [address] Dec, [facility] [place] [facility] [address] [id number] [place] [address] Dec, [facility] [place] [facility] [address] [id number] [place] [address] Dec, [facility] [place] [facility] [address] [id number] [place] [address] Dec, [facility] [place] [facility] [address] [id number] [place] [address] 16 Nov, 2013 [facility] [place] [facility] [address] [id number] [place] [address] 16 Nov, 2013 [facility] [place] [facility] [address] [id number] [place] [address] Nov, 2013 [facility] [place] [facility] [address] [id number] [place] [address] Nov, 2013 [facility] [place] [facility] [address] [id number] [place] [address] Nov, 2013 [facility] [place] [facility] [address] [id number] [place] [address] Nov, 2013 [facility] [place] [facility] [address] [id number] [place] [address] Oct, [facility] [place] [facility] [address] [id number] [place] [address] Oct, [facility] [place] [facility] [address] [id number] [place] [address] Oct, [facility] [place] [facility] [address] [id number] [place] [address] Oct, [facility] [place] [facility] [address] [id number] [place] [address] Sep, [facility] [place] [facility] [address] [id number] [place] [address] Sep, [facility] [place] [facility] [address] [id number] [place] [address] Sep, [facility] [place] [facility] [address] [id number] [place] [address] Sep, [facility] [place] [facility] [address] [id number] [place] [address] Sep, [facility] [place] [facility] [address] [id number] [place] [address] Sep, [facility] [place] [facility] [address] [id number] [place] [address] July, [facility] [place] [facility] [address] [id number] [place] [address] July, [facility] [place] [facility] [address] [id number] [place] [address] July, [facility] [place] [facility] [address] [id number] [place] [address] July, [facility] [place] [facility] [address] [id number] [place] [address] Jun, [facility] [place] [facility] [address] [id number] [place] [address] Jun, [facility] [place] [facility] [address] [id number] [place] [address] Jun, [facility] [place] [facility] [address] [id number] [place] [address] Jun, [facility] [place] [facility] [address] [id number] [place] [address] Jun, [facility] [place] [facility] [address] [id number], [place] [address] Jun, [facility] [place] [facility] [address] [id number] [place] [address] May, [facility] [place] [facility] [address] [id number] [place] [address] May, [facility] [place] [facility] [address] [id number] [place] [address] Apr, [facility] [place] [facility] [address] [id number] [place] [address] Apr, [facility] [place] [facility] [address] [id number] [place] [address] Apr, [facility] [place] [facility] [address] [id number] [place] [address] Apr, [facility] [place] [facility] [address] [id number] [place] [address] Apr, [facility] [place] [facility] [address] [id number] [place] [address] Apr, [facility] [place] [facility] [address] [id number] [place] [address] Apr, [facility] [place] [facility] [address] [facility] [id number] [place] [address] Mar, [facility] [place] [facility] [address] [id number] [place] [address] Mar, [facility] [place] [facility] [address] [id number] [place] [address] Mar, [facility] [place] [facility] [address] [id number] [place] [address] Mar, [facility] [place] [facility] [address] [id number] [place] [address] Mar, [facility] [place] [facility] [address] [id number] [place] [address] Mar, [facility] [place] [facility] [address] [id number] [place] [address] Mar, [facility] [address] [id number] [place] [address] Mar, [facility] [address] [id number] [place] [address] Feb, [facility] [address] [id number] [place] [address] Feb, [facility] [address] [id number] [place] [address] Feb, [facility] [address] [id number] [place] [address] Feb, [facility] [address] [id number] [place] [address] Feb, [facility] [address] [id number] [place] [address] Feb, [facility] [address] [id number] [place] [address] Feb, [facility] [address] [id number] [place] [address] Jan, [facility] [address] [id number] [place] [address] Jan, [facility] [address] [id number], [place] [address] Jan, [facility] [address] [id number] [place] [address] Jan, [facility] [place] [facility] [address] [id number] [place] [address] Jan, [facility] [address] [id number] [place] [address] Jan, [facility] [address] [id number] [id number] Jan, [facility] [place] [facility] [address] [id number][place] [id number] Jan, [facility] [place] [facility] [address] [id number] [place] [address] Dec, [facility] [place] [facility] [address] [id number] [place] [address] Dec, [facility] [place] [facility] [address] [id number], [place] [address] Dec, [facility] [place] [facility] [address] [id number] [place] [address] Dec, [facility] [place] [facility] [address] [id number] [place] [address] Dec, [facility] [place] [facility] [address] [id number] [place] [address] Dec, [facility] [place] [facility] [address] [id number], [place] [address] Dec, [facility] [place] [facility] [address] [id number], [place] [address] Dec, [facility] [place] [facility] [address] [id number], [place] [address] Dec, [facility] [place] [facility] [address] [id number], [place] [address] Dec, [facility] [place] [facility] [address] [id number][place] [id number] Nov, [facility] [place] [facility] [address] [id number][place] [id number] Nov, [facility] [place] [facility] [address] [id number], [place] [address] 24 Nov, 2012 [facility] [place] [facility] [address] [id number], [place] [address] 20 Nov, 2012 [facility] [place] [facility] [address] [id number] [place] [address] Nov, [facility] [address] [id number] [place] [address] 13 Nov, 2012 [facility] [place] [facility] [address] [id number] [place] [address] 10 Nov, 2012 [facility] [place] [facility] [address] [id number] [place] [address] Nov, [facility] [place] [facility] [address] [id number] [place] [address] Oct, [facility] [place] [facility] [address] [id number] [place] [address] Oct, [facility] [place] [facility] [address] [id number] [place] [address] Oct, [facility] [address] [id number] [place] [address] Sep, [facility] [place] [facility] [address] [id number] [place] [address] Sep, [facility] [place] [facility] [address] [id number] [place] [address] Sep, [facility] [place] [facility] [address] [id number] [place] [address] Sep, [facility] [place] [facility] [address] [id number] [place] [address] Sep, [facility] [place] [facility] [address] [id number] [place] [address] Aug, [facility] [place] [facility] [address] [id number] [place] [address] Aug, [facility] [place] [facility] [address] [id number] [place] [address] Aug, [facility] [place] [facility] [address] [id number] [place] [address] Aug, [facility] [place] [facility] [address] [id number] [place] [address] Aug, [facility] [address] [id number] [place] [address] Aug, [facility] [address] [id number] [place] [address] July, [facility] [address] [id number] [place] [address] July, [facility] [address] [id number] [place] [address] July, [facility] [address] [id number] [place] [address] July, [facility] [address] [id number] [place] [address] July, [facility] [address] [id number] [place] [address] July, [facility] [address] [id number] [place] [address] Jun, [facility] [address] [id number] [place] [address] Jun, [facility] [address] [id number] [place] [address] Jun, [facility] [address] [id number] [place] [address] Jun, [facility] [address] [id number] [place] [address] May, [facility] [place] [facility] [address] [id number] [place] [address] May, [facility] [place] [facility] [address] [id number] [place] [address] May, [facility] [place] [facility] [address] [id number] [place] [address] Apr, [facility] [place] [facility] [address] [id number] [place] [address] Mar, [facility] [place] [facility] [address] [id number] [place] [address] 18 Mar, 2012 [facility] [place] [facility] [address] [facility] [id number] [place] [address] 17 Mar, 2012 [facility] [place] [facility] [address] [id number], [place] [address] 16 Mar, 2012 [facility] [place] [facility] [address] [id number] [place] [address] Mar, [facility] [place] [facility] [address] [facility] [id number] [place] [address] Feb, [facility] [place] [facility] [address] [id number] [place] [address] Feb, [facility] [place] [facility] [address] [id number], [place] [address] Feb, [facility] [place] [facility] [address] [id number], [place] [address] Feb, [facility] [place] [facility] [address] [facility] [id number], [place] [address] Jan, [facility] [place] [facility] [address] [id number], [place] [address] Jan, [facility] [place] [facility] [address] [id number], [place] [address] Jan, [facility] [place] [facility] [address] [id number], [place] [address] Jan, [facility] [place] [facility] [address] [facility] [id number], [place] [address] Dec, [facility] [place] [facility] [address] [facility] [id number], [place] [address] Dec, [facility] [place] [facility] [address] [id number] [place] [address] Nov, [facility] [address] [id number] [place] [address] Oct, [facility] [address] [id number] [place] [address] Oct, [facility] [address] [id number] [place] [address] Oct, [facility] [address] [id number] [place] [address] Oct, [facility] [address] [id number] [place] [address] Oct, [facility] [address] [id number] [place] [address] Sep, [facility] [address] [id number] [place] [address] Sep, [facility] [address] [id number] [place] [address] Aug, [facility] [address] [place] [id number] Aug, [facility] [address] [id number] [place] [address] Aug, [facility] [address] [id number] [place] [address] July, [facility] [address] [id number] [place] [address] July, [facility] [address] [id number] [place] [address] Jun, [facility] [address] [id number] [place] [address] Jun, [facility] [address] [id number] [place] [address] Jun, [facility] [address] [id number] [place] [address] 13 Jun, 2011 [facility] [address] [id number] [place] [address] 15 Apr, 2011 [facility] [place] [facility] [address] [id number] [place] [address] 15 Apr, 2011 [facility] [place] [facility] [address] [id number] [place] [address] 10 Apr, 2011 [facility] [place] [facility] [address] [id number] [place] [address] Mar, [facility] [place] [facility] [address] [id number] [place] [address] Mar, [facility] [address] [id number] [place] [address] Mar, [facility] [address] [id number] [place] [address] Mar, [facility] [address] [id number] [place] [address] Mar, [facility] [place] [facility] [address] [id number] [place] [address] Jan, [facility] [address] [id number] [place] [address] Jan, [facility] [place] [facility] [address] [id number] [place] [address] Jan, [facility] [place] [facility] [address] [id number] [place] [address] Mar, [facility] [place] [facility] [address] [id number] [place] [address] Mar, [facility] [place] [facility] [address] [id number] [place] [address] Feb, [facility] [place] [facility] [address] [id number] [place] [address] Feb, [facility] [id number] [address] 16 Feb, 2010 [facility] [id number] [address] Jan, [facility] [id number] [address] Jan, [facility] [id number] [place] [address] Dec, [facility] [id number] [address] Dec, [facility] [id number] [place] [address] May, [facility] [id number] [place] [address] Apr, [facility] [id number] [place] [address] Feb, [facility] [id number] [place] [address] Feb, [facility] [id number] [place] [address] Jan, [facility] [id number] [place] [address] Jan, [facility] [id number] [place] [address] Jan, [facility] [id number] [place] [address] Jan, [facility] [id number] [place] [address] Jan, IMMUNIZATIONS No Known Immunizations SOCIAL HISTORY [...]
--- OUTSIDE RECORDS SUMMARY | 2018-10-04 06:58 | XMS REPORT ---
Author Author PARI ORTEGA [facility] eClinical[employer] Address Unknown Phone Unavailable Care Team Providers Care Emt Paramedic Name Role Phone PARI ORTEGA CP Unavailable [...] Active Problem Urinary hesitancy 788.64 Active Assessment Severe major depression with psychotic features F32.3 Active Assessment Posttraumatic stress disorder F43.10 Active Problem Unspecified peripheral vascular disease 443.9 Active Medications Medication Code System Code Instructions Start Date End Date Status Dosage Hydrocodone-Acetaminophen [facility] [address]-86 5-325 MG May 29, 2014 take 1 tablet by oral route every 6 hours as needed for pain MS Contin [facility] [address]-76 15 MG Orally Once a day in the am Oct 22, 2014 [facility] [address]-71 8 % Externally Once a day Dec 20, 2014 1 drop to affected area Trazodone HCl [facility] [address]-11 150 MG Orally Once a day Jan 08, 2015 1 tablet at bedtime as needed Nexium [facility] 33504935303 40 MG Orally Once a day qHS [address] [facility] [address]-55 1 MG Orally Twice a day Jan 08, [address] [facility] [address]-04 40 MG Orally Once a day Jan 08, 2015 1 capsule in the morning HydrOXYzine Pamoate [facility] [address]-20 25 MG Orally every 8 hrs Jan 08, 2015 1 capsule as needed MS Contin [facility] [address]-31 30 MG Orally Once a day in the evening Oct 22, [address] [facility] [address]-89 6 MG Orally Once a day Jan 08, 2015 2 tablets Procedures Procedure Coding System Code Date Office Visit, Maude Pt., Level 3 CPT-4 11827 Jan 08, 2015 [facility] VISIT ESTABLISHED PATIENT CPT-4 G0467 Jan 08, 2015 Vital Signs Date/Time: Jan 08, 2015 Cardiac Monitoring Heart Rate 64 bpm Weight 248.8 lbs Height 66 in BMI 40.15 Index Blood Pressure Diastolic 86 mmHg Blood Pressure Systolic 138 mmHg Results No Known Results Summary Purpose eClinicalWorks Submission
--- OUTSIDE RECORDS SUMMARY | 2018-10-04 06:59 | XMS REPORT ---
Author NO Gunter [employer] Address Unknown Phone Unavailable Care Team Providers Care Electrocardiogram Technician Name Role Phone NO PAYTON CP Unavailable Allergies, Adverse Reactions, Alerts Substance Reaction Event Type Trazodone HCl nausea and vomiting Drug Allergy Chantix nausea Drug Allergy Problems Problem Type Condition Code Onset Dates Condition Status Problem Chronic systolic (congestive) heart failure I50.22 Active Problem History of DVT (deep vein thrombosis) Z86.718 Active Problem Non-ischemic cardiomyopathy I42.9 Active Problem Type 2 diabetes mellitus with diabetic polyneuropathy E11.42 Active Problem Major depressive disorder, recurrent episode, unspecified severity F33.9 Active Problem Chronic prescription opiate use Z79.891 Active Problem PTSD (post-traumatic stress disorder) F43.10 Active Problem Gastroesophageal reflux disease, esophagitis presence not specified K21.9 Active Problem Chronic obstructive pulmonary disease, unspecified COPD type J44.9 Active Problem Chronic pain syndrome G89.4 Active Problem Pure hypercholesterolemia E78.0 Active Problem Essential hypertension I10 Active Problem History of weight loss surgery Z98.84 Active Assessment Dental examination Z01.20 Active Problem MITCHELL treated with BiPAP G47.33 Active Medications Medication Code System Code Instructions Start Date End Date Status Dosage Hydrocodone-Acetaminophen [facility] [address]-04 5-325 MG May 29, 2014 take 1 tablet by oral route every 6 hours as needed for pain Pen Castaner [facility] [address]-33 31G X 6 MM Once a day June 10, 2015 as directed Ventolin HFA [facility] [address]-58 108 (90 Base) MCG/ACT Inhalation every 4 hrs Apr 10, 2015 2 puffs as needed Invega [facility] [address]-42 6 MG Orally Once a day Jan 08, 2015 2 tablets HydrOXYzine Pamoate [facility] [address]-71 25 MG Orally every 6 hrs May 07, 2015 1 capsule as needed MS Contin [facility] [address]-32 30 MG Orally Once a day in the evening Oct 22, 2014 1 tablet Liraglutide [facility] [address]-51 18 MG/3ML Subcutaneous Once a day for one week, then increase to 1.2 mg SQ daily June 04, 2015 0.6 mg Prozac [facility] 88437002806 40 MG Orally Once a day 1 capsule in the morning Klonopin [facility] 25982721213 1 MG TAKE ONE TABLET BY MOUTH TWICE DAILY Mirtazapine [facility] [address]-00 30 MG Orally Once a day June 25, 2015 1 tablet before bedtime in the evening Flomax [facility] [address]-10 0.4 MG Orally Once a day 1 capsule 30 minutes after the same meal each day MS Contin [facility] [address]-73 15 MG Orally Once a day in the am Oct 22, 2014 1 tablet Gabapentin [facility] 13875972316 300 MG TAKE THREE CAPSULES BY MOUTH THREE TIMES DAILY Nexium [facility] 46134183218 40 MG Orally Once a day qHS 1 capsule Metformin HCl [facility] 71237457871 500 MG TAKE ONE TABLET BY MOUTH TWICE DAILY WITH MORNING AND EVENING MEALS Cyclobenzaprine HCl [facility] 46178714962 10 MG TAKE ONE TABLET BY MOUTH THREE TIMES DAILY NEEDED Pataday [facility] [address]-20 0.2 % Ophthalmic 2 times a day Apr 10, 2015 1 drop to affected eyes Ibuprofen [facility] [address]-46 600 MG Orally Three times a day August 13, 2015 October 12, 2015 1 tablet Procedures Procedure Coding System Code Date PANORAMIC FILM SEE ALSO CODE 45020 CPT-4 D0330 October 01, 2015 COMP ORAL EVALUATION - NEW/EST PT CPT-4 D0150 October 01, 2015 Vital Signs Date/Time: October 01, 2015 Blood Pressure Diastolic 87 mmHg Blood Pressure Systolic 155 mmHg Height 66 in Results No Known Results Summary Purpose [employer]ClinicalWorks Submission
--- OUTSIDE RECORDS SUMMARY | 2018-10-04 06:59 | XMS REPORT ---
Author Author KATHY ESTHER [facility] Address [address] [place] [address] Care Team Providers Care Ep Tech Name Role Phone KATHYBRIAN VILLEGASY Unavailable PROBLEMS Type Condition ICD9-CM Code [id number] Code Onset Dates Condition Status SNOMED Code Problem Primary osteoarthritis of both knees M17.0 Active 330757725 Problem MITCHELL treated with BiPAP G47.33 Active 70501212 Problem Nocturnal hypoxia G47.34 Active 742966591 Problem Chronic prescription opiate use Z79.891 Active 798415162 Problem Chronic systolic (congestive) heart failure I50.22 Active 017287370 Problem Acute right-sided low back pain with right-sided sciatica M54.41 Active 59690705 Problem Posttraumatic stress disorder F43.10 Active 95221952 Problem Severe major depression with psychotic features F32.3 Active 90066483 Problem Mood disorder F39 Active 93437246 Problem Mild episode of recurrent major depressive disorder F33.0 Active 819685351 Problem Type 2 diabetes mellitus with diabetic polyneuropathy E11.42 Active 857675529 Problem Pure hypercholesterolemia E78.0 Active 242191007 Problem Chronic pain syndrome G89.4 Active 190617034 Problem Tobacco abuse Z72.0 Active 285424990 Problem Obesity, morbid, BMI 40.0-49.9 E66.01 Active 349661635 Problem BMI 45.0-49.9, adult Z68.42 Active 710959575 Problem Macrocytosis D75.89 Active 431033339 Problem Major depressive disorder, recurrent episode, unspecified severity F33.9 Active 62807170 Problem Gastroesophageal reflux disease, esophagitis presence not specified K21.9 Active 622570648 Problem History of DVT (deep vein thrombosis) Z86.718 Active 613889974 Problem Essential hypertension I10 Active 20357384 Problem History of weight loss surgery Z98.84 Active 303973523 Problem PTSD (post-traumatic stress disorder) F43.10 Active 86868585 Problem Non-ischemic cardiomyopathy I42.9 Active 47206347 Problem Chronic obstructive pulmonary disease, unspecified COPD type J44.9 Active 32603980 ALLERGIES Substance Reaction Event Type Date Status Trazodone HCl nausea and vomiting Drug Allergy Mar, Active Chantix nausea Drug Allergy Mar, Active SOCIAL HISTORY No smoking Hx information available PLAN OF CARE Activity Details Follow Up 3 Months Reason:Pain/DMII VITAL SIGNS Height 66 in 2016-04-13 Weight 295.0 lbs 2016-04-13 Temperature 97.0 degrees Fahrenheit 2016-04-13 Heart Rate 78 bpm 2016-04-13 Respiratory Rate 20 2016-04-13 BMI 47.61 kg/m2 2016-04-13 Blood pressure systolic 138 mmHg 2016-04-13 Blood pressure diastolic 90 mmHg 2016-04-13 MEDICATIONS Medication Instructions Dosage Frequency Start Date End Date Duration Status Pataday 0.2 % Ophthalmic 2 times a day 1 drop to affected eyes 12h Mar, Active Invega 6 MG Orally Once a day 2 tablets 24h 30 days Active Pantoprazole Sodium 40 MG Orally Once a day 1 tablet 24h 30 Active Metformin HCl 500 MG Orally Twice a day 1 tablet with meals 12h Active HydrOXYzine Pamoate 25 MG Orally at bedtime 1 capsule as needed Mar, 30 day(s) Active Chantix Starting Month Nagi 0.5 MG X 11 & 1 MG X 42 as directed Mar, Active Ventolin HFA 108 (90 Base) MCG/ACT Inhalation every 4 hrs 2 puffs as needed 4h Mar, Active MS Contin 30 MG Orally Once a day in the evening- appt needed before due for next refill 1 tablet Mar, 28 days Active Cyclobenzaprine HCl 10 MG TAKE ONE TABLET BY MOUTH THREE TIMES DAILY NEEDED 10 Active Prozac 40 MG Orally Once a day 1 capsule in the morning 24h 30 days Active Klonopin 1 MG Orally as needed Twice a day 1 tablet 12h 30 days Active Gabapentin 600 MG Orally 3 times a day 2 tablets 8h 90 days Active Hydrocodone-Acetaminophen 5-325 MG Orally every 6 hrs 1 tablet as needed 6h Jan, 28 days Active Ibuprofen 800 MG Orally Three times a day 1 tablet as needed 8h 30 Active Liraglutide 18 MG/3ML Subcutaneous Once a day for one week, then increase to 1.2 mg SQ daily 0.6 mg May, Active BusPIRone HCl 15 MG Orally as needed Twice a day 1 tablet 12h 18 Mar, 2016 30 days Active Pen [place] 31G X 6 MM as directed 24h May, Active MS Contin 30 MG Orally every 12 hrs 1 tablet 12h Mar, 14 days Active RESULTS Name Result Date Reference Range A1C (IN HOUSE) 2016-04-13 A1C IN HOUSE 5.0 4.3 - 5.6 % Previous A1c 4.9 Lot [id number] Exp date 01/2018 MICROALBUMIN, URINE (IN HOUSE) 2016-04-13 MICROALBUMIN normal Lot # [id number] Exp date 03/2017 Clarity clear Color yellow ALB 10 CRE 100 A:C (IN HOUSE) <30 Control + Control Lot # Exp date PROCEDURES Procedure Date Ordered Related Diagnosis Body Site OXIMETRY-OVERNIGHT 2016-04-13 8 seconds below 88%. AMBREEN 4.681. Fell more than 5% below baseline 95.6 for total of 3 min 44 sec. GLYCATED HEMOGLOBIN TEST Apr 13, 2016 [facility] VISIT ESTABLISHED PATIENT Apr 13, 2016 MICROALBUMIN, SEMIQUANT Apr 13, 2016 Office Visit, Est Pt., Level 3 Apr 13, 2016 IMMUNIZATIONS No Known Immunizations
--- OUTSIDE RECORDS SUMMARY | 2018-10-04 06:59 | XMS REPORT ---
Author Author KATHY ESTHER [facility] Address [address] [place] [address] Care Team Providers Care Banking Paralegal Name Role Phone KATHYBRIAN VILLEGASY Unavailable PROBLEMS Type Condition ICD9-CM Code [id number] Code Onset Dates Condition Status SNOMED Code Problem Primary osteoarthritis of both knees M17.0 Active 425059510 Problem MITCHELL treated with BiPAP G47.33 Active 04819924 Problem Nocturnal hypoxia G47.34 Active 703144524 Problem Chronic prescription opiate use Z79.891 Active 858975120 Problem Chronic systolic (congestive) heart failure I50.22 Active 394831748 Problem Acute right-sided low back pain with right-sided sciatica M54.41 Active 33144166 Problem Posttraumatic stress disorder F43.10 Active 64089294 Problem Severe major depression with psychotic features F32.3 Active 72699546 Problem Mood disorder F39 Active 45219369 Problem Mild episode of recurrent major depressive disorder F33.0 Active 202121435 Problem Type 2 diabetes mellitus with diabetic polyneuropathy E11.42 Active 399019212 Problem Pure hypercholesterolemia E78.0 Active 132141258 Problem Chronic pain syndrome G89.4 Active 180732698 Problem Tobacco abuse Z72.0 Active 966837747 Problem Obesity, morbid, BMI 40.0-49.9 E66.01 Active 483274726 Problem BMI 45.0-49.9, adult Z68.42 Active 971464616 Problem Macrocytosis D75.89 Active 373978845 Problem Major depressive disorder, recurrent episode, unspecified severity F33.9 Active 50971665 Problem Gastroesophageal reflux disease, esophagitis presence not specified K21.9 Active 654148363 Problem History of DVT (deep vein thrombosis) Z86.718 Active 589003076 Problem Essential hypertension I10 Active 35839761 Problem History of weight loss surgery Z98.84 Active 031271725 Problem PTSD (post-traumatic stress disorder) F43.10 Active 44383174 Problem Non-ischemic cardiomyopathy I42.9 Active 87470826 Problem Chronic obstructive pulmonary disease, unspecified COPD type J44.9 Active 32470789 ALLERGIES No Information SOCIAL HISTORY Never Assessed PLAN OF CARE VITAL SIGNS MEDICATIONS Medication Instructions Dosage Frequency Start Date End Date Duration Status Hydrocortisone 1 % Externally Twice a day for up to 2 weeks 1 application to affected area Aug, Aug, 14 days Active Lidocaine HCl 3 % Externally Twice a day for up to 2 weeks 1 application to affected area as needed Aug, 14 days Active RESULTS No Results [...] ED then admitted to [facility]-cardiac stepdown-chest pain 02/2010 Hospitalization History Possible DVT-sono negative 06/2010 Hospitalization History cellulitis to bilat legs
--- OUTSIDE RECORDS SUMMARY | 2018-10-04 06:59 | XMS REPORT ---
Author Author PARI Garcia Organization [facility] Address Unknown Care Team Providers Care Mold Forms Builder Name Role Phone PARI Garcia Unavailable PROBLEMS Type Condition ICD9-CM Code TIP92-XC Code Onset Dates Condition Status SNOMED Code Problem Primary osteoarthritis of both knees M17.0 Active 241338548 Problem MITCHELL treated with BiPAP G47.33 Active 91022359 Problem Nocturnal hypoxia G47.34 Active 849895324 Problem Chronic prescription opiate use Z79.891 Active 203610591 Problem Chronic systolic (congestive) heart failure I50.22 Active 045203666 Problem Acute right-sided low back pain with right-sided sciatica M54.41 Active 52598119 Problem Posttraumatic stress disorder F43.10 Active 65838268 Problem Severe major depression with psychotic features F32.3 Active 36052447 Problem Mood disorder F39 Active 92664572 Problem Mild episode of recurrent major depressive disorder F33.0 Active 297389748 Problem Type 2 diabetes mellitus with diabetic polyneuropathy E11.42 Active 446088093 Problem Pure hypercholesterolemia E78.0 Active 900446844 Problem Chronic pain syndrome G89.4 Active 685032453 Problem Tobacco abuse Z72.0 Active 451921992 Problem Obesity, morbid, BMI 40.0-49.9 E66.01 Active 514453052 Problem BMI 45.0-49.9, adult Z68.42 Active 493468651 Problem Macrocytosis D75.89 Active 389125628 Problem Major depressive disorder, recurrent episode, unspecified severity F33.9 Active 27355966 Problem Gastroesophageal reflux disease, esophagitis presence not specified K21.9 Active 587814561 Problem History of DVT (deep vein thrombosis) Z86.718 Active 996477520 Problem Essential hypertension I10 Active 66034482 Problem History of weight loss surgery Z98.84 Active 141850857 Problem PTSD (post-traumatic stress disorder) F43.10 Active 11250224 Problem Non-ischemic cardiomyopathy I42.9 Active 19725193 Problem Chronic obstructive pulmonary disease, unspecified COPD type J44.9 Active 16867780 ALLERGIES Substance Reaction Event Type Date Status Trazodone HCl nausea and vomiting Drug Allergy Jun, Active Chantix nausea Drug Allergy Jun, Active SOCIAL HISTORY Never Assessed PLAN OF CARE Activity Details Follow Up 2 Months Reason: VITAL SIGNS Height 66 in 2016-06-28 Weight 300.4 lbs 2016-06-28 Heart Rate 80 bpm 2016-06-28 Respiratory Rate 20 2016-06-28 BMI 48.48 kg/m2 2016-06-28 Blood pressure systolic 160 mmHg 2016-06-28 Blood pressure diastolic 100 mmHg 2016-06-28 MEDICATIONS Medication Instructions Dosage Frequency Start Date End Date Duration Status Ibuprofen 800 MG Orally Three times a day 1 tablet as needed 8h 30 Active Invega 6 MG Orally Once a day 2 tablets 24h 30 days Active Pantoprazole Sodium 40 MG Orally Once a day 1 tablet 24h 30 Active Cyclobenzaprine HCl 10 MG TAKE ONE TABLET BY MOUTH THREE TIMES DAILY NEEDED 10 Active BusPIRone HCl 15 MG Orally as needed Twice a day 1 tablet 12h Mar, 30 days Active Hydrocodone-Acetaminophen 5-325 MG Orally every 6 hrs 1 tablet as needed 6h Jun, 28 days Active HydrOXYzine Pamoate 50 MG Orally once a day at bedtime 1 or 2 capsules as needed Jun, 30 day(s) Active Pataday 0.2 % Ophthalmic 2 times a day 1 drop to affected eyes 12h Mar, Active Ventolin HFA 108 (90 Base) MCG/ACT Inhalation every 4 hrs 2 puffs as needed 4h Mar, Active MS Contin 30 MG Orally every 12 hrs 1 tablet 12h Mar, 28 days Active Liraglutide 18 MG/3ML Subcutaneous Once a day for one week, then increase to 1.2 mg SQ daily 0.6 mg May, Active Gabapentin 600 MG Orally 3 times a day 2 tablets 8h 90 days Active Klonopin 1 MG Orally as needed Twice a day 1 tablet 12h 30 days Active Pen [place] 31G X 6 MM as directed 24h May, Active Prozac 40 MG Orally Once a day 1 capsule in the morning 24h 30 days Active Metformin HCl 500 MG Orally Twice a day 1 tablet with meals 12h Active Prozac 10 MG Orally Once a day 1 capsule in the morning 24h Jun, 30 day(s) Active RESULTS No Results PROCEDURES Procedure Date Ordered Result Body Site [facility] VISIT ESTABLISHED PATIENT June 28, 2016 IMMUNIZATIONS No Known Immunizations MEDICAL (GENERAL) [...]
--- OUTSIDE RECORDS SUMMARY | 2018-10-04 06:59 | XMS REPORT ---
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
--- OUTSIDE RECORDS SUMMARY | 2018-10-04 06:59 | XMS REPORT ---
Author Author MARII TIJERINA Organization [employer] Address Unknown Phone Unavailable Care Team Providers Care Kiln Hand Name Role Phone MARII TIJERINA CP Unavailable Allergies No Known Allergies Problems Problem Type Condition Code Onset Dates Condition Status Problem Posttraumatic stress disorder 309.81 Active Problem Headache 784.0 Active Problem Chronic airway obstruction, not elsewhere classified 496 Active Assessment Onychomycosis B35.1 Active Problem Unspecified peripheral vascular disease 443.9 [...] Instructions Start Date End Date [facility] D[facility] [address]-19 8 % Externally Once a day Dec 20, 2014 1 drop to affected area Procedures Procedure Coding System Code Date [facility] VISIT ESTABLISHED PATIENT CPT-4 G0467 Dec 20, 2014 Office Visit, Est Pt., Level 3 CPT-4 75462 Dec 20, 2014 DEBRIDE NAIL, 1-5 CPT-4 33062 Dec 20, 2014 Vital Signs Date/Time: Dec 20, 2014 Blood Pressure Diastolic 80 mmHg Blood Pressure Systolic 126 mmHg Height 66 in Results Name Result Date Reference Range Unit Abnormality Flag DEBRIDE NAIL 1-5 Summary Purpose eClinicalWorks Submission
--- OUTSIDE RECORDS SUMMARY | 2018-10-04 06:59 | XMS REPORT ---
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 Name Role Phone KATHYBRIAN VILLEGASY Unavailable PROBLEMS Type Condition ICD9-CM Code [id number] Code Onset Dates Condition Status SNOMED Code Problem Primary osteoarthritis of both knees M17.0 Active 056474419 Problem Nocturnal hypoxia G47.34 Active 202868369 Problem Chronic prescription opiate use Z79.891 Active 925335074 Problem Pure hypercholesterolemia E78.0 Active 947977999 Problem Acute right-sided low back pain with right-sided sciatica M54.41 Active 39643822 Problem Type 2 diabetes mellitus with diabetic polyneuropathy E11.42 Active 526200478 Problem Severe major depression with psychotic features F32.3 Active 46399189 Problem Obesity, morbid, BMI 40.0-49.9 E66.01 Active 792770508 Problem Posttraumatic stress disorder F43.10 Active 85799732 Problem Primary insomnia F51.01 Active 9460953 Problem Mood disorder F39 Active 79484766 Problem History of DVT (deep vein thrombosis) Z86.718 Active 600671537 Problem Chronic pain syndrome G89.4 Active 060947959 Problem Chronic systolic (congestive) heart failure I50.22 Active 256725249 Problem Macrocytosis D75.89 Active 040743152 Problem Tobacco abuse Z72.0 Active 178673921 Problem Mild episode of recurrent major depressive disorder F33.0 Active 437374354 Problem BMI 45.0-49.9, adult Z68.42 Active 009009007 Problem Gastroesophageal reflux disease, esophagitis presence not specified K21.9 Active 671738648 Problem Non-ischemic cardiomyopathy I42.9 Active 90813614 Problem Essential hypertension I10 Active 25450268 Problem Major depressive disorder, recurrent episode, unspecified severity F33.9 Active 45738506 Problem PTSD (post-traumatic stress disorder) F43.10 Active 06320898 Problem MITCHELL treated with BiPAP G47.33 Active 00786390 Problem Chronic obstructive pulmonary disease, unspecified COPD type J44.9 Active 87192756 Problem History of weight loss surgery Z98.84 Active 268627584 ALLERGIES No Information ENCOUNTERS Encounter Location Date Diagnosis [place] [id number] [place] [address] Oct, [place] [address] [place] [id number] [place] [address] Sep, [place] [address] [place] [id number] [place] [address] Aug, Primary osteoarthritis of both knees M17.0 and Chronic pain syndrome G89.4 [place] [address] [address] July, Primary osteoarthritis of both knees M17.0 and Chronic pain syndrome G89.4 [place] [address] [place] [id number] [place] [address] July, Type 2 diabetes mellitus with diabetic polyneuropathy E11.42 ; Essential hypertension I10 ; Pure hypercholesterolemia E78.0 ; Chronic prescription opiate use Z79.891 ; Tobacco abuse Z72.0 ; Primary osteoarthritis of both knees M17.0 ; Primary insomnia F51.01 and BMI 45.0-49.9, adult Z68.42 [place] [id number] [place] [address] July, Medicare annual wellness visit, initial Z00.00 [...] specified K21.9 and Encounter for immunization Z23 [place] [address] [place] [id number] [place] [address] July, Primary osteoarthritis of both knees M17.0 and Chronic pain syndrome G89.4 [facility] [id number] [place] [address] Jun, Infection of right ear H66.91 ; Wheezing on auscultation R06.2 and BMI 45.0-49.9, adult Z68.42 [facility] [address] [place] [id number] [place] [address] Jun, [facility] [address] [place] [id number] [place] [address] Jun, Primary osteoarthritis of both knees M17.0 and Chronic pain syndrome G89.4 [facility] [address] [place] [id number] [place] [address] May, [facility] [address] [place] [id number] [place] [address] May, BMI 45.0-49.9, adult Z68.42 ; Mood disorder F39 and Posttraumatic stress disorder F43.10 [facility] [address] [place] [id number] [place] [address] May, [facility] [address] [place] [id number] [place] [address] May, Primary osteoarthritis of both knees M17.0 and Chronic pain syndrome G89.4 [facility] [address] [place] [id number] [place] [address] May, Mood disorder F39 [facility] [address] [place] [id number] [place] [address] Apr, Type 2 diabetes mellitus with diabetic polyneuropathy E11.42 [facility] [address] [place] [id number] [place] [address] Apr, [facility] [address] [place] [id number] [place] [address] Apr, Primary osteoarthritis of both knees M17.0 and Chronic pain syndrome G89.4 [facility] [address] [address] Apr, Mood disorder F39 [facility] [address] [place] [id number] [place] [address] Mar, Mood disorder F39 and Posttraumatic stress disorder F43.10 [facility] [id number] [place] [address] Mar, Primary osteoarthritis of both knees M17.0 and Chronic pain syndrome G89.4 [facility] [address] [place] [id number] [place] [address] Feb, Primary osteoarthritis of both knees M17.0 and Chronic pain syndrome G89.4 [facility] [id number] [place] [address] Feb, Mood disorder F39 [place] [address] [place] [id number] [place] [address] Jan, Type 2 diabetes mellitus with diabetic polyneuropathy E11.42 ; Primary osteoarthritis of both knees M17.0 ; Mood disorder F39 ; Obesity, morbid, BMI 40.0-49.9 E66.01 ; Chronic prescription opiate use Z79.891 ; Acute suppurative otitis media of both ears without spontaneous rupture of tympanic membranes, recurrence not specified H66.003 and BMI 45.0-49.9, adult Z68.42 [facility] [address] [place] [address] Jan, Primary osteoarthritis of both knees M17.0 and Chronic pain syndrome G89.4 [facility] [address] [address] Dec, Mood disorder F39 and Posttraumatic stress disorder F43.10 [facility] [id number] [place] [address] Dec, Primary osteoarthritis of both knees M17.0 and Chronic pain syndrome G89.4 [facility] [id number] [place] [address] 18 Nov, 2016 Chronic pain syndrome G89.4 [facility] [id number] [place] [address] 15 Nov, 2016 Primary osteoarthritis of both knees M17.0 and Chronic pain syndrome G89.4 [facility] [address] [place] [id number] [place] [address] 13 Nov, 2016 Type 2 diabetes mellitus with diabetic polyneuropathy E11.42 and Chronic pain syndrome G89.4 [facility] [address] [place] [id number] [place] [address] 12 Nov, 2016 Posttraumatic stress disorder F43.10 and Mood disorder F39 [facility] [address] [place] [id number] [place] [address] 18 Oct, 2016 Chronic pain syndrome G89.4 [facility] [address] [place] [id number] [place] [address] 16 Oct, 2016 Type 2 diabetes mellitus with diabetic polyneuropathy E11.42 ; BMI 45.0-49.9, adult Z68.42 ; Primary osteoarthritis of both knees M17.0 and Skin lesion L98.9 [facility] [address] [place] [id number] [place] [address] Oct, Chronic pain syndrome G89.4 [facility] [address] [place] [id number] [place] [address] Sep, Chronic pain syndrome G89.4 [facility] [address] [place] [id number] [place] [address] Sep, [facility] [id number] [place] [address] Sep, Chronic pain syndrome G89.4 [facility] [address] [place] [id number] [place] [address] Aug, Chronic pain syndrome G89.4 [facility] [address] [place] [id number] [place] [address] Aug, [facility] [address] [address] Aug, Macrocytosis D75.89 and Pure hypercholesterolemia E78.0 [facility] [address] [place] [id number] [place] [address] Aug, Pure hypercholesterolemia E78.0 [facility] [address] [place] [id number] [place] [address] Aug, Macrocytosis D75.89 [facility] [address] [place] [id number] [place] [address] Aug, Pure hypercholesterolemia E78.0 ; Type 2 diabetes mellitus with diabetic polyneuropathy E11.42 ; MITCHELL treated with BiPAP G47.33 and Chronic pain syndrome G89.4 [place] [address] [place] [id number] [place] [address] Aug, [place] [address] [place] [id number] [place] [address] Aug, Hemorrhoids, unspecified hemorrhoid type K64.9 [place] [address] [place] [id number] [place] [address] Aug, Chronic pain syndrome G89.4 ; Type 2 diabetes mellitus with diabetic polyneuropathy E11.42 ; Hemorrhoids, unspecified hemorrhoid type K64.9 ; Tobacco abuse Z72.0 and Primary osteoarthritis of both knees M17.0 [place] [id number] [place] [address] July, Chronic pain syndrome G89.4 [facility] [address] [address] July, [facility] [address] [place] [id number] [place] [address] Jun, Chronic pain syndrome G89.4 [facility] [id number] [place] [address] Jun, Chronic pain syndrome G89.4 [facility] [address] [place] [id number] [place] [address] Jun, Severe major depression with psychotic features F32.3 and Posttraumatic stress disorder F43.10 [facility] [address] [place] [id number] [place] [address] Jun, Chronic pain syndrome G89.4 [facility] [address] [place] [id number] [place] [address] Jun, [facility] [address] [address] May, Chronic pain syndrome G89.4 [facility] [address] [address] May, Tobacco abuse Z72.0 [place] [address] [place] [id number] [place] [address] May, [facility] [address] [address] Apr, Chronic pain syndrome G89.4 [facility] [address] [place] [id number] [place] [address] Apr, [place] [address] [place] [id number] [place] [address] Apr, Right foot pain M79.671 [place] [address] [place] [id number] [place] [address] Mar, Type 2 diabetes mellitus with diabetic polyneuropathy E11.42 ; MITCHELL treated with BiPAP G47.33 ; Pure hypercholesterolemia E78.0 ; Chronic pain syndrome G89.4 ; Tobacco abuse Z72.0 and Obesity, morbid, BMI 40.0-49.9 E66.01 [facility] [address] [place] [id number] [place] [address] Mar, [facility] [address] [place] [id number] [place] [address] Mar, [facility] [address] [address] Mar, [facility] [address] [address] Mar, [facility] [address] [address] Mar, [facility] [id number] [place] [address] Mar, Severe major depression with psychotic features F32.3 and Posttraumatic stress disorder F43.10 [facility] [address] [address] Mar, [facility] [id number] [place] [address] Feb, [facility] [address] [place] [id number] [place] [address] Feb, [facility] [id number] [place] [address] Jan, [facility] [id number] [place] [address] Jan, [facility] [id number] [place] [address] Dec, Posttraumatic stress disorder F43.10 and Severe major depression with psychotic features F32.3 [facility] [address] [address] Dec, Type 2 diabetes mellitus with diabetic polyneuropathy E11.42 ; Chronic pain syndrome G89.4 and Acute right-sided low back pain with right-sided sciatica M54.41 [facility] [address] [address] Dec, [facility] [address] [address] Dec, [facility] [id number] [place] [address] Nov, [facility] [address] [place] [id number] [place] [address] Nov, [facility] [address] [place] [id number] [place] [address] Nov, [facility] [address] [place] [id number] [place] [address] Oct, [facility] [address] [address] Oct, [facility] [address] [address] Sep, Dental examination Z01.20 [facility] [address] [place] [id number] [place] [address] Sep, [facility] [address] [address] Sep, Type 2 diabetes mellitus with diabetic polyneuropathy E11.42 ; Chronic pain syndrome G89.4 ; Chronic prescription opiate use Z79.891 ; Injury of right index finger, sequela S69.91XS and Anejaculation N50.8 [facility] [address] [place] [id number] [place] [address] Aug, [facility] [address] [place] [id number] [place] [address] Aug, [facility] [address] [place] [id number] [place] [address] Aug, Cellulitis of finger of right hand L03.011 [facility] [address] [address] July, [facility] [address] [place] [id number] [place] [address] July, [facility] [address] [place] [id number] [place] [address] Jun, Onychomycosis B35.1 [facility] [address] [address] Jun, Severe major depression with psychotic features F32.3 and Posttraumatic stress disorder F43.10 [facility] [address] [address] Jun, [facility] [address] [place] [id number] [place] [address] Jun, [facility] [id number] [place] [address] Jun, [facility] [address] [place] [id number] [place] [address] May, Type 2 diabetes mellitus with diabetic polyneuropathy E11.42 [place] [address] [place] [id number] [place] [address] May, Type 2 diabetes mellitus with diabetic polyneuropathy E11.42 and Urinary hesitancy R39.11 [facility] [address] [place] [id number] [place] [address] May, Type 2 diabetes mellitus with diabetic polyneuropathy E11.42 ; Left hip pain M25.552 and Benign prostatic hyperplasia with lower urinary tract symptoms, unspecified morphology N40.1 [facility] [address] [address] May, [facility] [address] [place] [id number] [place] [address] Apr, Severe major depression with psychotic features F32.3 and Posttraumatic stress disorder F43.10 [facility] [address] [place] [id number] [place] [address] Apr, [facility] [address] [address] Mar, [facility] [address] [place] [id number] [place] [address] Mar, Dysuria R30.0 and Urinary hesitancy R39.11 [facility] [address] [address] Mar, Onychomycosis B35.1 [facility] [address] [address] 08 Mar, 2015 [facility] [address] [place] [id number] [place] [address] Feb, [facility] [address] [place] [id number] [place] [address] Jan, [facility] [address] [place] [id number] [place] [address] Jan, Posttraumatic stress disorder F43.10 and Severe major depression with psychotic features F32.3 [facility] [address] [place] [id number] [place] [address] Jan, [facility] [address] [place] [id number] [place] [address] Jan, Chronic pain syndrome G89.4 ; Type 2 diabetes mellitus with diabetic polyneuropathy E11.42 ; Decreased pedal pulses R09.89 and Paresthesia of both hands R20.2 [facility] [address] [address] Dec, Posttraumatic stress disorder F43.10 and Severe major depression with psychotic features F32.3 [facility] [address] [address] Dec, [facility] [id number] [place] [address] Dec, [facility] [address] [place] [id number] [place] [address] Dec, Onychomycosis B35.1 [facility] [address] [address] Dec, [facility] [address] [address] Dec, [facility] [address] [place] [id number] [place] [address] Nov, [facility] [address] [place] [id number] [place] [address] Oct, Depression, major, recurrent, moderate 296.32 and Posttraumatic stress disorder 309.81 [place] [address] [id number] [place] [address] Oct, [facility] [address] [place] [id number] [place] [address] Oct, [place] [address] [place] [id number] [place] [address] Oct, [place] [address] [place] [id number] [place] [address] Sep, Posttraumatic stress disorder 309.81 and Depression, major, recurrent, moderate 296.32 [place] [address] [place] [id number] [place] [address] Sep, [place] [id number] [place] [address] Sep, Chronic airway obstruction, not elsewhere classified [id number] [place] [address] Sep, Onychomycosis 110.1 and DM neuro manif type II 250.60 [place] [id number] [place] [address] Sep, Chronic pain 338.29 ; Chronic airway obstruction, not elsewhere classified 496 ; Osteoarthritis of knees, bilateral 715.96 and On potassium wasting diuretic therapy V58.[address] [place] [address] Sep, Insect bites 919.4 ; Sinusitis 473.9 and GERD (gastroesophageal reflux disease) 530.81 [place] [id number] [address] Aug, Depression, major, recurrent, moderate 296.32 and Posttraumatic stress disorder 309.81 [facility] [id number] [address] Aug, [facility] [id number] [address] Aug, [facility] [address] [facility] [id number] [place] [address] Aug, [facility] [id number] [address] July, Major depressive disorder, recurrent episode, moderate 296.32 and Posttraumatic stress disorder 309.81 [facility] [id number] [address] July, [facility] [id number] [address] July, [facility] [id number] [address] July, [facility] [id number] [address] July, [facility] [id number] [address] Jun, [facility] [id number] [address] Jun, [facility] [address] [id number] [address] May, [facility] [id number] [address] May, [facility] [address] [id number] [address] May, [facility] [id number] [address] May, [facility] [place] [facility] [address] [id number] [place] [address] May, [facility] [place] [facility] [address] [id number] [place] [address] May, [facility] [place] [facility] [address] [facility] [id number] [place] [address] May, [facility] [place] [facility] [address] [id number] [place] [address] May, [facility] [place] [facility] [address] [id number] [place] [address] May, [facility] [place] [facility] [address] [id number] [place] [address] Apr, 2014 [facility] [place] [facility] [address] [facility] [id number] [place] [address] Apr, 2014 [facility] [place] [facility] [address] [id number] [place] [address] Apr, 2014 [facility] [place] [facility] [address] [address] [id number] [place] [address] Apr, 2014 [facility] [place] [facility] [address] [facility] [id number] [place] [address] Apr, 2014 [facility] [place] [facility] [address] [facility] [id number] [place] [address] Apr, 2014 [facility] [place] [facility] [address] [facility] [id number] [address] Apr, 2014 [facility] [place] [facility] [address] [facility] [id number] [place] [address] Apr, 2014 [facility] [place] [facility] [address] [facility] [id number] [address] Apr, 2014 [facility] [place] [facility] [address] [facility] [id number] [address] Mar, [facility] [place] [facility] [address] [id number] [place] [address] 30 Mar, 2014 [facility] [place] [facility] [address] [id number] [place] [address] Mar, [facility] [place] [facility] [address] [id number] [place] [address] 23 Mar, 2014 [facility] [place] [facility] [address] [id number] [place] [address] 15 Mar, 2014 [facility] [place] [facility] [address] [id number] [place] [address] 15 Mar, 2014 [facility] [place] [facility] [address] [id number] [place] [address] 15 Mar, 2014 [facility] [place] [facility] [address] [id number] [place] [address] 15 Mar, 2014 [facility] [place] [facility] [address] [id number] [place] [address] 15 Mar, 2014 [facility] [place] [facility] [address] [id number] [place] [address] 15 Mar, 2014 [facility] [place] [facility] [address] [id number] [place] [address] 14 Mar, 2014 [facility] [place] [facility] [address] [id number] [place] [address] 14 Mar, 2014 [facility] [place] [facility] [address] [id number] [place] [address] 14 Mar, 2014 [facility] [place] [facility] [address] [id number] [place] [address] 14 Mar, 2014 [facility] [place] [facility] [address] [id number] [place] [address] 14 Mar, 2014 [facility] [place] [facility] [address] [id number] [place] [address] 14 Mar, 2014 [facility] [place] [facility] [address] [id number] [place] [address] Mar, [facility] [place] [facility] [address] [id number] [place] [address] Mar, [facility] [place] [facility] [address] [id number] [place] [address] Feb, [facility] [place] [facility] [address] [id number] [place] [address] Feb, [facility] [place] [facility] [address] [id number] [place] [address] Feb, [facility] [place] [facility] [address] [id number] [place] [address] Feb, [facility] [place] [facility] [address] [id number] [place] [address] Feb, [facility] [place] [facility] [address] [id number] [place] [address] Feb, [facility] [place] [facility] [address] [id number] [place] [address] Jan, [facility] [place] [facility] [address] [id number] [place] [address] Jan, [facility] [place] [facility] [address] [id number] [place] [address] Jan, [facility] [place] [facility] [address] [id number] [address] Jan, [facility] [place] [facility] [address] [id number] [address] Jan, [facility] [place] [facility] [address] [id number] [place] [address] Jan, [facility] [place] [facility] [address] [id number] [place] [address] Jan, [facility] [place] [facility] [address] [id number] [place] [address] Jan, [facility] [place] [facility] [address] [id number] [place] [address] Jan, [facility] [place] [facility] [address] [id number] [place] [address] Jan, [facility] [place] [facility] [address] [id number] [place] [address] Dec, [facility] [place] [facility] [address] [id number] [place] [address] Dec, [facility] [place] [facility] [address] [id number] [place] [address] Dec, [facility] [place] [facility] [address] [id number] [place] [address] Dec, [facility] [place] [facility] [address] [id number] [place] [address] 16 Nov, 2013 [facility] [place] [facility] [address] [id number] [place] [address] 16 Nov, 2013 [facility] [place] [facility] [address] [id number] [place] [address] Nov, 2013 [facility] [place] [facility] [address] [id number] [place] [address] Nov, 2013 [facility] [place] [facility] [address] [id number] [place] [address] Nov, 2013 [facility] [place] [facility] [address] [id number] [place] [address] Nov, 2013 [facility] [place] [facility] [address] [id number] [place] [address] Oct, [facility] [place] [facility] [address] [id number] [place] [address] Oct, [facility] [place] [facility] [address] [id number] [place] [address] Oct, [facility] [place] [facility] [address] [id number] [place] [address] Oct, [facility] [place] [facility] [address] [id number] [place] [address] Sep, [facility] [place] [facility] [address] [id number] [place] [address] Sep, [facility] [place] [facility] [address] [id number] [place] [address] Sep, [facility] [place] [facility] [address] [id number] [place] [address] Sep, [facility] [place] [facility] [address] [id number] [place] [address] Sep, [facility] [place] [facility] [address] [id number] [place] [address] Sep, [facility] [place] [facility] [address] [id number] [place] [address] July, [facility] [place] [facility] [address] [id number] [place] [address] July, [facility] [place] [facility] [address] [id number] [place] [address] July, [facility] [place] [facility] [address] [id number] [place] [address] July, [facility] [place] [facility] [address] [id number] [place] [address] Jun, [facility] [place] [facility] [address] [id number] [place] [address] Jun, [facility] [place] [facility] [address] [id number] [place] [address] Jun, [facility] [place] [facility] [address] [id number] [place] [address] Jun, [facility] [place] [facility] [address] [id number] [place] [address] Jun, [facility] [place] [facility] [address] [id number] [address] Jun, [facility] [place] [facility] [address] [id number] [place] [address] May, [facility] [place] [facility] [address] [id number] [place] [address] May, [facility] [place] [facility] [address] [id number] [place] [address] Apr, [facility] [place] [facility] [address] [id number] [place] [address] Apr, [facility] [place] [facility] [address] [id number] [place] [address] Apr, [facility] [place] [facility] [address] [id number] [place] [address] Apr, [facility] [place] [facility] [address] [id number] [place] [address] Apr, [facility] [place] [facility] [address] [id number] [place] [address] Apr, [facility] [place] [facility] [address] [id number] [place] [address] Apr, [facility] [place] [facility] [address] [facility] [id number] [place] [address] Mar, [facility] [place] [facility] [address] [id number] [place] [address] Mar, [facility] [place] [facility] [address] [id number] [place] [address] Mar, [facility] [place] [facility] [address] [id number] [place] [address] Mar, [facility] [place] [facility] [address] [id number] [place] [address] Mar, [facility] [place] [facility] [address] [id number] [place] [address] Mar, [facility] [place] [facility] [address] [id number] [place] [address] Mar, [facility] [address] [id number] [place] [address] Mar, [facility] [address] [id number] [place] [address] Feb, [facility] [address] [id number] [place] [address] Feb, [facility] [address] [id number] [place] [address] Feb, [facility] [address] [id number] [place] [address] Feb, [facility] [address] [id number] [place] [address] Feb, [facility] [address] [id number] [place] [address] Feb, [facility] [address] [id number] [place] [address] Feb, [facility] [address] [id number] [place] [address] Jan, [facility] [address] [id number] [place] [address] Jan, [facility] [address] [id number] [address] Jan, [facility] [address] [id number] [place] [address] Jan, [facility] [place] [facility] [address] [id number] [place] [address] Jan, [facility] [address] [id number] [place] [address] Jan, [facility] [address] [id number] [id number] Jan, [facility] [place] [facility] [address] [id number] [place] [id number] Jan, [facility] [place] [facility] [address] [id number] [place] [address] Dec, [facility] [place] [facility] [address] [id number] [place] [address] Dec, [facility] [place] [facility] [address] [id number] [address] Dec, [facility] [place] [facility] [address] [id number] [place] [address] Dec, [facility] [place] [facility] [address] [id number] [place] [address] Dec, [facility] [place] [facility] [address] [id number] [place] [address] Dec, [facility] [place] [facility] [address] [id number] [address] Dec, [facility] [place] [facility] [address] [id number] [place] [address] Dec, [facility] [place] [facility] [address] [id number] [place] [address] Dec, [facility] [place] [facility] [address] [id number] [address] Dec, [facility] [place] [facility] [address] [id number] [id number] Nov, [facility] [place] [facility] [address] [id number] [place] [id number] Nov, [facility] [place] [facility] [address] [id number] [place] [address] 24 Nov, 2012 [facility] [place] [facility] [address] [id number] [place] [address] 20 Nov, 2012 [facility] [place] [facility] [address] [id number] [place] [address] Nov, [facility] [address] [id number] [place] [address] 13 Nov, 2012 [facility] [place] [facility] [address] [id number] [place] [address] 10 Nov, 2012 [facility] [place] [facility] [address] [id number] [place] [address] Nov, [facility] [place] [facility] [address] [id number] [place] [address] Oct, [facility] [place] [facility] [address] [id number] [place] [address] Oct, [facility] [place] [facility] [address] [id number] [place] [address] Oct, [facility] [address] [id number] [place] [address] Sep, [facility] [place] [facility] [address] [id number] [place] [address] Sep, [facility] [place] [facility] [address] [id number] [place] [address] Sep, [facility] [place] [facility] [address] [id number] [place] [address] Sep, [facility] [place] [facility] [address] [id number] [place] [address] Sep, [facility] [place] [facility] [address] [id number] [place] [address] Aug, [facility] [place] [facility] [address] [id number] [place] [address] Aug, [facility] [place] [facility] [address] [id number] [place] [address] Aug, [facility] [place] [facility] [address] [id number] [place] [address] Aug, [facility] [place] [facility] [address] [id number] [place] [address] Aug, [facility] [address] [id number] [place] [address] Aug, [facility] [address] [id number] [place] [address] July, [facility] [address] [id number] [place] [address] July, [facility] [address] [id number] [place] [address] July, [facility] [address] [id number] [place] [address] July, [facility] [address] [id number] [place] [address] July, [facility] [address] [id number] [place] [address] July, [facility] [address] [id number] [place] [address] Jun, [facility] [address] [id number] [place] [address] Jun, [facility] [address] [id number] [place] [address] Jun, [facility] [address] [id number] [place] [address] Jun, [facility] [address] [id number] [place] [address] May, [facility] [place] [facility] [address] [id number] [place] [address] May, [facility] [place] [facility] [address] [id number] [place] [address] May, [facility] [place] [facility] [address] [id number] [place] [address] Apr, [facility] [place] [facility] [address] [id number] [place] [address] Mar, [facility] [place] [facility] [address] [id number] [place] [address] 18 Mar, 2012 [facility] [place] [facility] [address] [facility] [id number] [place] [address] 17 Mar, 2012 [facility] [place] [facility] [address] [id number] [address] 16 Mar, 2012 [facility] [place] [facility] [address] [id number] [place] [address] Mar, [facility] [place] [facility] [address] [facility] [id number] [place] [address] Feb, [facility] [place] [facility] [address] [id number] [place] [address] Feb, [facility] [place] [facility] [address] [id number] [address] Feb, [facility] [place] [facility] [address] [id number] [place] [address] Feb, [facility] [place] [facility] [address] [facility] [id number] [address] Jan, [facility] [place] [facility] [address] [id number] [place] [address] Jan, [facility] [place] [facility] [address] [id number] [place] [address] Jan, [facility] [place] [facility] [address] [id number] [place] [address] Jan, [facility] [place] [facility] [address] [facility] [id number] [place] [address] Dec, [facility] [place] [facility] [address] [facility] [id number] [address] Dec, [facility] [place] [facility] [address] [id number] [place] [address] Nov, [facility] [address] [id number] [place] [address] Oct, [facility] [address] [id number] [place] [address] Oct, [facility] [address] [id number] [place] [address] Oct, [facility] [address] [id number] [place] [address] Oct, [facility] [address] [id number] [place] [address] Oct, [facility] [address] [id number] [place] [address] Sep, [facility] [address] [id number] [place] [address] Sep, [facility] [address] [id number] [place] [address] Aug, [facility] [address] [place] [id number] Aug, [facility] [address] [id number] [place] [address] Aug, [facility] [address] [id number] [place] [address] July, [facility] [address] [id number] [place] [address] July, [facility] [address] [id number] [place] [address] Jun, [facility] [address] [id number] [place] [address] Jun, [facility] [address] [id number] [place] [address] Jun, [facility] [address] [id number] [place] [address] 13 Jun, 2011 [facility] [address] [id number] [place] [address] 15 Apr, 2011 [facility] [place] [facility] [address] [id number] [place] [address] 15 Apr, 2011 [facility] [place] [facility] [address] [id number] [place] [address] 10 Apr, 2011 [facility] [place] [facility] [address] [id number] [place] [address] Mar, [facility] [place] [facility] [address] [id number] [place] [address] Mar, [facility] [address] [id number] [place] [address] Mar, [facility] [address] [id number] [place] [address] Mar, [facility] [address] [id number] [place] [address] Mar, [facility] [place] [facility] [address] [id number] [place] [address] Jan, [facility] [address] [id number] [place] [address] Jan, [facility] [place] [facility] [address] [id number] [place] [address] Jan, [facility] [place] [facility] [address] [id number] [place] [address] Mar, [facility] [place] [facility] [address] [id number] [place] [address] Mar, [facility] [place] [facility] [address] [id number] [place] [address] Feb, [facility] [place] [facility] [address] [id number] [place] [address] Feb, [facility] [address] [id number] [address] 16 Feb, 2010 [facility] [address] [facility] [id number] [address] Jan, [facility] [id number] [address] Jan, [facility] [address] [address] Dec, [facility] [id number] [address] Dec, [facility] [id number] [place] [address] May, [facility] [id number] [address] Apr, [facility] [id number] [address] Feb, [facility] [id number] [address] Feb, [facility] [id number] [address] Jan, [facility] [id number] [address] Jan, [facility] [id number] [address] Jan, [facility] [address] [address] Jan, [facility] [id number] [address] Jan, IMMUNIZATIONS No Known Immunizations SOCIAL HISTORY Never Assessed REASON FOR VISIT Controlled Medication Refill PLAN OF CARE VITAL SIGNS MEDICATIONS Medication Instructions Dosage Frequency Start Date End Date Duration Status Hydrocodone-Acetaminophen 5-325 MG Orally every 6 hrs 1 tablet as needed 6h Apr, 28 days Active MS Contin 30 MG Orally every 12 hrs 1 tablet 12h Apr, 28 days Active RESULTS No Results PROCEDURES [...] Hospitalization History ED then admitted to [facility]-cardiac stepdown-chest pain 02/2010 Hospitalization History Possible DVT-sono negative 06/2010 Hospitalization History cellulitis to bilat legs
--- OUTSIDE RECORDS SUMMARY | 2018-10-04 06:59 | XMS REPORT ---
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 Name Role Phone PARI ORTEGA Unavailable PROBLEMS Type Condition ICD9-CM Code FFQ54-DT Code Onset Dates Condition Status SNOMED Code Problem Non-ischemic cardiomyopathy I42.9 Active 79856205 Problem Gastroesophageal reflux disease, esophagitis presence not specified K21.9 Active 466939721 Problem History of DVT (deep vein thrombosis) Z86.718 Active 882611297 Problem Chronic prescription opiate use Z79.891 Active 979440065 Problem Type 2 diabetes mellitus with diabetic polyneuropathy E11.42 Active 076731017 Problem Chronic pain syndrome G89.4 Active 743560652 Problem PTSD (post-traumatic stress disorder) F43.10 Active 22315369 Problem Major depressive disorder, recurrent episode, unspecified severity F33.9 Active 03230946 Problem Chronic obstructive pulmonary disease, unspecified COPD type J44.9 Active 39105125 Problem Essential hypertension I10 Active 32093170 Problem History of weight loss surgery Z98.84 Active 249111988 Problem Nocturnal hypoxia G47.34 Active 413098484 Problem MITCHELL treated with BiPAP G47.33 Active 68750960 Problem Pure hypercholesterolemia E78.0 Active 924230985 Problem Chronic systolic (congestive) heart failure I50.22 Active 412753636 ALLERGIES Unknown Allergies SOCIAL HISTORY No smoking Hx information available PLAN OF CARE VITAL SIGNS MEDICATIONS Medication Instructions Dosage Frequency Start Date End Date Duration Status Klonopin 1 MG TAKE ONE TABLET BY MOUTH TWICE DAILY 28 Active RESULTS No Results PROCEDURES No Known procedures IMMUNIZATIONS No Known Immunizations
--- OUTSIDE RECORDS SUMMARY | 2018-10-04 07:00 | XMS REPORT ---
Author Author DELILAH FEDERICO Organization [facility] Address [address] [place] [address] Care Team Providers Care Molecular Spectroscopist Name Role Phone AGUILARPAWAN ADHIKARIA Unavailable PROBLEMS Type Condition ICD9-CM Code HRQ01-YD Code Onset Dates Condition Status SNOMED Code Problem Primary osteoarthritis of both knees M17.0 Active 033208534 Problem MITCHELL treated with BiPAP G47.33 Active 99238698 Problem Nocturnal hypoxia G47.34 Active 283361742 Problem Chronic prescription opiate use Z79.891 Active 377698393 Problem Chronic systolic (congestive) heart failure I50.22 Active 356457459 Problem Acute right-sided low back pain with right-sided sciatica M54.41 Active 00610793 Problem Posttraumatic stress disorder F43.10 Active 52940595 Problem Severe major depression with psychotic features F32.3 Active 98922689 Problem Mood disorder F39 Active 62463954 Problem Mild episode of recurrent major depressive disorder F33.0 Active 338340322 Problem Type 2 diabetes mellitus with diabetic polyneuropathy E11.42 Active 290200233 Problem Pure hypercholesterolemia E78.0 Active 401525636 Problem Chronic pain syndrome G89.4 Active 364597074 Problem Tobacco abuse Z72.0 Active 003317785 Problem Obesity, morbid, BMI 40.0-49.9 E66.01 Active 076983951 Problem BMI 45.0-49.9, adult Z68.42 Active 882748715 Problem Macrocytosis D75.89 Active 877475466 Problem Major depressive disorder, recurrent episode, unspecified severity F33.9 Active 87394941 Problem Gastroesophageal reflux disease, esophagitis presence not specified K21.9 Active 195999569 Problem History of DVT (deep vein thrombosis) Z86.718 Active 930144542 Problem Essential hypertension I10 Active 33690983 Problem History of weight loss surgery Z98.84 Active 758590547 Problem PTSD (post-traumatic stress disorder) F43.10 Active 88379011 Problem Non-ischemic cardiomyopathy I42.9 Active 44057484 Problem Chronic obstructive pulmonary disease, unspecified COPD type J44.9 Active 49370466 ALLERGIES Substance Reaction Event Type Date Status Trazodone HCl nausea and vomiting Drug Allergy Nov, Active Chantix nausea Drug Allergy Nov, Active ENCOUNTERS Encounter Location Date Diagnosis [facility] [address] [address] Sep, [facility] [id number] [place] [address] July, [facility] [id number] [place] [address] July, Medicare annual wellness visit, initial Z00.00 [facility] WALK IN [facility] [id number] [place] [address] 09 Jun, 2017 Infection of right ear H66.91 ; Wheezing on auscultation R06.2 and BMI 45.0-49.9, adult Z68.42 [facility] [id number] [place] [address] Jun, [facility] [id number] [place] [address] Jun, Primary osteoarthritis of both knees M17.0 and Chronic pain syndrome G89.4 [facility] [id number] [place] [address] May, [facility] [id number] [place] [address] May, BMI 45.0-49.9, adult Z68.42 ; Mood disorder F39 and Posttraumatic stress disorder F43.10 [facility] [id number] [place] [address] May, [facility] [id number] [place] [address] May, Primary osteoarthritis of both knees M17.0 and Chronic pain syndrome G89.4 [facility] [id number] [place] [address] May, Mood disorder F39 [facility] [id number] [place] [address] Apr, Type 2 diabetes mellitus with diabetic polyneuropathy E11.42 [facility] [id number] [place] [address] Apr, [facility] [id number] [place] [address] Apr, Primary osteoarthritis of both knees M17.0 and Chronic pain syndrome G89.4 [facility] [id number] [place] [address] Apr, Mood disorder F39 [facility] [id number] [place] [address] Mar, Mood disorder F39 and Posttraumatic stress disorder F43.10 [facility] [id number] [place] [address] Mar, Primary osteoarthritis of both knees M17.0 and Chronic pain syndrome G89.4 [facility] [id number] [place] [address] Feb, Primary osteoarthritis of both knees M17.0 and Chronic pain syndrome G89.4 [facility] [id number] [place] [address] Feb, Mood disorder F39 [facility] [id number] [place] [address] Jan, Type 2 diabetes mellitus with diabetic polyneuropathy E11.42 ; Primary osteoarthritis of both knees M17.0 ; Mood disorder F39 ; Obesity, morbid, BMI 40.0-49.9 E66.01 ; Chronic prescription opiate use Z79.891 ; Acute suppurative otitis media of both ears without spontaneous rupture of tympanic membranes, recurrence not specified H66.003 and BMI 45.0-49.9, adult Z68.42 [facility] [address], [place] [address] Jan, Primary osteoarthritis of both knees M17.0 and Chronic pain syndrome G89.4 [facility] [id number] [place] [address] Dec, Mood disorder F39 and Posttraumatic stress disorder F43.10 [facility] [id number] [place] [address] Dec, Primary osteoarthritis of both knees M17.0 and Chronic pain syndrome G89.4 [facility] [id number] [place] [address] 18 Nov, 2016 Chronic pain syndrome G89.4 [facility] [id number] [place] [address] 15 Nov, 2016 Primary osteoarthritis of both knees M17.0 and Chronic pain syndrome G89.4 [facility] [id number] [place] [address] 13 Nov, 2016 Type 2 diabetes mellitus with diabetic polyneuropathy E11.42 and Chronic pain syndrome G89.4 [facility] [id number] [place] [address] 12 Nov, 2016 Posttraumatic stress disorder F43.10 and Mood disorder F39 [facility] [id number] [place] [address] Oct, Chronic pain syndrome G89.4 [facility] [id number] [place] [address] 16 Oct, 2016 Type 2 diabetes mellitus with diabetic polyneuropathy E11.42 ; BMI 45.0-49.9, adult Z68.42 ; Primary osteoarthritis of both knees M17.0 and Skin lesion L98.9 [facility] [address] [place] [address] 09 Oct, 2016 Chronic pain syndrome G89.4 [facility] [id number] [place] [address] Sep, Chronic pain syndrome G89.4 [facility] [address] [place] [address] Sep, [facility] [id number] [place] [address] Sep, Chronic pain syndrome G89.4 [facility] [id number] [place] [address] Aug, Chronic pain syndrome G89.4 [facility] [id number] [place] [address] Aug, [facility] [id number] [place] [address] Aug, Macrocytosis D75.89 and Pure hypercholesterolemia E78.0 [facility] [id number] [place] [address] Aug, Pure hypercholesterolemia E78.0 [facility] [id number] [place] [address] Aug, Macrocytosis D75.89 [facility] [id number] [place] [address] Aug, Pure hypercholesterolemia E78.0 ; Type 2 diabetes mellitus with diabetic polyneuropathy E11.42 ; MITCHELL treated with BiPAP G47.33 and Chronic pain syndrome G89.4 [facility] [address] [place] [address] Aug, [facility] [facility] [address] [place] [address] Aug, Hemorrhoids, unspecified hemorrhoid type K64.9 [facility] [id number] [place] [address] Aug, Chronic pain syndrome G89.4 ; Type 2 diabetes mellitus with diabetic polyneuropathy E11.42 ; Hemorrhoids, unspecified hemorrhoid type K64.9 ; Tobacco abuse Z72.0 and Primary osteoarthritis of both knees M17.0 [facility] [address], [place] [address] July, Chronic pain syndrome G89.4 [facility] [address] [place] [address] July, [facility] [id number] [place] [address] Jun, Chronic pain syndrome G89.4 [facility] [address] [place] [address] Jun, Chronic pain syndrome G89.4 [facility] [id number] [place] [address] Jun, Severe major depression with psychotic features F32.3 and Posttraumatic stress disorder F43.10 [facility] [id number] [place] [address] Jun, Chronic pain syndrome G89.4 [facility] [id number] [place] [address] Jun, [facility] [id number] [place] [address] May, Chronic pain syndrome G89.4 [facility] [id number] [place] [address] May, Tobacco abuse Z72.0 [facility] [id number] [place] [address] May, [facility] [id number] [place] [address] Apr, Chronic pain syndrome G89.4 [facility] [address], [place] [address] Apr, [facility] [address], [place] [address] Apr, Right foot pain M79.671 [facility] [id number] [place] [address] Mar, Type 2 diabetes mellitus with diabetic polyneuropathy E11.42 ; MITCHELL treated with BiPAP G47.33 ; Pure hypercholesterolemia E78.0 ; Chronic pain syndrome G89.4 ; Tobacco abuse Z72.0 and Obesity, morbid, BMI 40.0-49.9 E66.01 [facility] [id number] [place] [address] Mar, [facility] [id number] [place] [address] Mar, [facility] [id number] [place] [address] Mar, [facility] [id number] [place] [address] Mar, [facility] [id number] [place] [address] Mar, [facility] [id number] [place] [address] Mar, Severe major depression with psychotic features F32.3 and Posttraumatic stress disorder F43.10 [facility] [id number] [place] [address] Mar, [facility] [id number] [place] [address] Feb, [facility] [id number] [place] [address] Feb, [facility] [id number] [place] [address] Jan, [facility] [id number] [place] [address] Jan, [facility] [id number] [place] [address] Dec, Posttraumatic stress disorder F43.10 and Severe major depression with psychotic features F32.3 [facility] [id number] [place] [address] Dec, Type 2 diabetes mellitus with diabetic polyneuropathy E11.42 ; Chronic pain syndrome G89.4 and Acute right-sided low back pain with right-sided sciatica M54.41 [facility] [id number] [place] [address] Dec, [facility] [id number] [place] [address] Dec, [facility] [id number] [place] [address] Nov, [facility] [id number] [place] [address] Nov, [facility] [id number] [place] [address] Nov, [facility] [id number] [place] [address] Oct, [facility] [id number] [place] [address] Oct, [facility] [id number] [place] [address] Sep, Dental examination Z01.20 [facility] [id number] [place] [address] Sep, [facility] [id number] [place] [address] Sep, Type 2 diabetes mellitus with diabetic polyneuropathy E11.42 ; Chronic pain syndrome G89.4 ; Chronic prescription opiate use Z79.891 ; Injury of right index finger, sequela S69.91XS and Anejaculation N50.8 [facility] [id number] [place] [address] Aug, [facility] [address], [place] [address] Aug, [facility] WALK IN [facility] [id number] [place] [address] Aug, Cellulitis of finger of right hand L03.011 [facility] [id number] [place] [address] July, [facility] [id number] [place] [address] July, [facility] [id number] [place] [address] Jun, Onychomycosis B35.1 [facility] [id number] [place] [address] Jun, Severe major depression with psychotic features F32.3 and Posttraumatic stress disorder F43.10 [place] [id number] [place] [address] Jun, [facility] [id number] [place] [address] Jun, [facility] [id number] [place] [address] Jun, [facility] [id number] [place] [address] May, Type 2 diabetes mellitus with diabetic polyneuropathy E11.42 [facility] [address] [place] [address] May, Type 2 diabetes mellitus with diabetic polyneuropathy E11.42 and Urinary hesitancy R39.11 [place] [id number] [place] [address] May, Type 2 diabetes mellitus with diabetic polyneuropathy E11.42 ; Left hip pain M25.552 and Benign prostatic hyperplasia with lower urinary tract symptoms, unspecified morphology N40.1 [place] [id number] [address] 07 May, 2015 [facility] [id number] [place] [address] Apr, Severe major depression with psychotic features F32.3 and Posttraumatic stress disorder F43.10 [facility] [id number] [place] [address] 08 Apr, 2015 [facility] [id number] [place] [address] Mar, [facility] [id number] [place] [address] Mar, Dysuria R30.0 and Urinary hesitancy R39.11 [facility] [id number] [place] [address] Mar, Onychomycosis B35.1 [facility] [id number] [place] [address] Mar, [facility] [id number] [place] [address] Feb, [facility] [id number] [place] [address] Jan, [facility] [id number] [place] [address] Jan, Posttraumatic stress disorder F43.10 and Severe major depression with psychotic features F32.3 [facility] [address] [place] [address] Jan, [facility] [id number] [place] [address] Jan, Chronic pain syndrome G89.4 ; Type 2 diabetes mellitus with diabetic polyneuropathy E11.42 ; Decreased pedal pulses R09.89 and Paresthesia of both hands R20.2 [facility] [id number] [place] [address] Dec, Posttraumatic stress disorder F43.10 and Severe major depression with psychotic features F32.3 [facility] [address], [place] [address] Dec, [facility] [id number] [place] [address] Dec, [facility] [id number] [place] [address] Dec, Onychomycosis B35.1 [facility] [id number] [place] [address] Dec, [facility] [id number] [place] [address] Dec, [facility] [id number] [place] [address] Nov, [facility] [id number] [place] [address] Oct, Depression, major, recurrent, moderate 296.32 and Posttraumatic stress disorder 309.81 [facility] [id number] [place] [address] Oct, [facility] [id number] [place] [address] Oct, [facility] [address] [place] [address] Oct, [facility] [id number] [place] [address] Sep, Posttraumatic stress disorder 309.81 and Depression, major, recurrent, moderate 296.32 [facility] [id number] [place] [address] 14 Sep, 2014 [facility] [id number] [place] [address] Sep, Chronic airway obstruction, not elsewhere classified 496 [facility] [id number] [place] [address] Sep, Onychomycosis 110.1 and DM neuro manif type II 250.60 [facility] [address] [address] Sep, Chronic pain 338.29 ; Chronic airway obstruction, not elsewhere classified 496 ; Osteoarthritis of knees, bilateral 715.96 and On potassium wasting diuretic therapy V58.69 [place] [address] [address] Sep, Insect bites 919.4 ; Sinusitis 473.9 and GERD (gastroesophageal reflux disease) 530.81 [place] [address] [address] Aug, Depression, major, recurrent, moderate 296.32 and Posttraumatic stress disorder 309.81 [place] [address] [address] Aug, [facility] [address] [address] Aug, [facility] [address] [address] Aug, [facility] [id number] [place] [address] July, Major depressive disorder, recurrent episode, moderate 296.32 and Posttraumatic stress disorder 309.81 [facility] [id number] [place] [address] July, [facility] [id number] [place] [address] July, [facility] [address] [address] July, [facility] [id number] [place] [address] July, [facility] [address] [address] 14 Jun, 2014 [facility] [place] [facility] [address] [id number] [place] [address] 13 Jun, 2014 [facility] [place] [facility] [address] [id number] [place] [address] 20 May, 2014 [facility] [place] [facility] [address] [id number] [place] [address] May, [facility] [place] [facility] [address] [id number] [place] [address] 18 May, 2014 [facility] [place] [facility] [address] [id number] [place] [address] May, [facility] [place] [facility] [address] [id number] [place] [address] May, [facility] [place] [facility] [address] [facility] [id number] [place] [address] May, [facility] [place] [facility] [address] [id number] [place] [address] May, [facility] [place] [facility] [address] [id number] [place] [address] May, [facility] [place] [facility] [address] [facility] [id number] [place] [address] May, [facility] [place] [facility] [address] [id number], [place] [address] Apr, 2014 [facility] [place] [facility] [address] [id number] [place] [address] Apr, [facility] [place] [facility] [address] [id number] [place] [address] Apr, [facility] [place] [facility] [address] [id number], [place] [address] Apr, [facility] [place] [facility] [address] [facility] [id number], [place] [address] Apr, [facility] [place] [facility] [address] [id number] [place] [address] Apr, [facility] [place] [facility] [address] [id number] [place] [address] Apr, [facility] [place] [facility] [address] [id number] [place] [address] Apr, [facility] [place] [facility] [address] [id number] [place] [address] Apr, [facility] [place] [facility] [address] [id number] [place] [address] Mar, [facility] [place] [facility] [address] [id number] [place] [address] Mar, [facility] [place] [facility] [address] [id number] [place] [address] Mar, [facility] [place] [facility] [address] [id number] [place] [address] Mar, [facility] [place] [facility] [address] [id number] [place] [address] Mar, [facility] [place] [facility] [address] [id number] [place] [address] Mar, [facility] [place] [facility] [address] [id number] [place] [address] Mar, [facility] [place] [facility] [address] [id number] [place] [address] Mar, [facility] [place] [facility] [address] [id number] [place] [address] Mar, [facility] [place] [facility] [address] [id number] [place] [address] Mar, [facility] [place] [facility] [address] [id number] [place] [address] 14 Mar, 2014 [facility] [place] [facility] [address] [id number] [place] [address] 14 Mar, 2014 [facility] [place] [facility] [address] [id number] [place] [address] 14 Mar, 2014 [facility] [place] [facility] [address] [id number] [place] [address] 14 Mar, 2014 [facility] [place] [facility] [address] [id number] [place] [address] 14 Mar, 2014 [facility] [place] [facility] [address] [id number] [place] [address] Mar, [facility] [place] [facility] [address] [id number] [place] [address] Mar, [facility] [place] [facility] [address] [id number] [place] [address] Mar, [facility] [place] [facility] [address] [id number] [place] [address] 16 Feb, 2014 [facility] [place] [facility] [address] [id number] [place] [address] 16 Feb, 2014 [facility] [place] [facility] [address] [id number] [place] [address] 15 Feb, 2014 [facility] [place] [facility] [address] [id number] [place] [address] 15 Feb, 2014 [facility] [place] [facility] [address] [id number] [place] [address] 15 Feb, 2014 [facility] [place] [facility] [address] [id number] [place] [address] 15 Feb, 2014 [facility] [place] [facility] [address] [id number] [place] [address] Jan, [facility] [place] [facility] [address] [id number] [place] [address] Jan, [facility] [place] [facility] [address] [id number] [place] [address] 17 Jan, 2014 [facility] [place] [facility] [address] [id number] [place] [address] Jan, [facility] [place] [facility] [address] [id number] [place] [address] Jan, [facility] [place] [facility] [address] [id number] [place] [address] Jan, [facility] [place] [facility] [address] [id number] [place] [address] Jan, [facility] [place] [facility] [address] [id number] [place] [address] Jan, [facility] [place] [facility] [address] [id number] [place] [address] Jan, [facility] [place] [facility] [address] [id number] [place] [address] Jan, [facility] [place] [facility] [address] [id number] [place] [address] Dec, [facility] [place] [facility] [address] [id number] [place] [address] Dec, [facility] [place] [facility] [address] [id number] [place] [address] Dec, [facility] [place] [facility] [address] [id number] [place] [address] Dec, [facility] [place] [facility] [address] [id number] [place] [address] 16 Nov, 2013 [facility] [place] [facility] [address] [id number] [place] [address] 16 Nov, 2013 [facility] [place] [facility] [address] [id number] [place] [address] 03 Nov, 2013 [facility] [place] [facility] [address] [id number] [place] [address] Nov, 2013 [facility] [place] [facility] [address] [id number] [place] [address] Nov, [facility] [place] [facility] [address] [id number] [place] [address] Nov, [facility] [place] [facility] [address] [id number] [place] [address] Oct, [facility] [place] [facility] [address] [id number] [place] [address] Oct, [facility] [place] [facility] [address] [id number] [place] [address] Oct, [facility] [place] [facility] [address] [id number] [place] [address] Oct, [facility] [place] [facility] [address] [id number] [place] [address] Sep, [facility] [place] [facility] [address] [id number] [place] [address] Sep, [facility] [place] [facility] [address] [id number] [place] [address] Sep, [facility] [place] [facility] [address] [id number] [place] [address] Sep, [facility] [place] [facility] [address] [id number] [place] [address] Sep, [facility] [place] [facility] [address] [id number] [place] [address] Sep, [facility] [place] [facility] [address] [id number] [place] [address] July, [facility] [place] [facility] [address] [id number] [place] [address] July, [facility] [place] [facility] [address] [id number] [place] [address] July, [facility] [place] [facility] [address] [id number] [place] [address] July, [facility] [place] [facility] [address] [id number] [place] [address] Jun, [facility] [place] [facility] [address] [id number] [place] [address] Jun, [facility] [place] [facility] [address] [facility] [id number] [place] [address] Jun, [facility] [place] [facility] [address] [facility] [id number] [place] [address] Jun, [facility] [place] [facility] [address] [facility] [id number] [place] [address] Jun, [facility] [place] [facility] [address] [id number] [place] [address] Jun, [facility] [place] [facility] [address] [facility] [id number] [place] [address] May, [facility] [place] [facility] [address] [facility] [id number] [place] [address] May, [facility] [place] [facility] [address] [facility] [id number] [place] [address] Apr, [facility] [place] [facility] [address] [facility] [id number] [place] [address] Apr, [facility] [place] [facility] [address] [facility] [id number] [place] [address] Apr, [facility] [place] [facility] [address] [facility] [id number] [place] [address] Apr, [facility] [place] [facility] [address] [facility] [id number] [place] [address] Apr, [facility] [place] [facility] [address] [facility] [id number] [place] [address] Apr, [facility] [place] [facility] [address] [facility] [id number] [place] [address] Apr, [facility] [place] [facility] [address] [id number] [address] Mar, [facility] [place] [facility] [address] [id number] [place] [address] Mar, [facility] [place] [facility] [address] [id number] [place] [address] Mar, [facility] [place] [facility] [address] [id number] [place] [address] Mar, [facility] [place] [facility] [address] [id number] [place] [address] Mar, [facility] [place] [facility] [address] [id number] [place] [address] Mar, [facility] [place] [facility] [address] [id number] [place] [address] Mar, [facility] [place] [facility] [address] [id number] [place] [address] Mar, [facility] [place] [facility] [address] [id number] [place] [address] Feb, [facility] [place] [facility] [address] [id number] [place] [address] Feb, [facility] [place] [facility] [address] [id number] [place] [address] Feb, [facility] [place] [facility] [address] [id number] [place] [address] Feb, [facility] [place] [facility] [address] [id number] [place] [address] Feb, [facility] [place] [facility] [address] [id number] [place] [address] Feb, [facility] [place] [facility] [address] [id number] [place] [address] 06 Feb, 2013 [facility] [place] [facility] [address] [id number] [place] [address] 29 Jan, 2013 [facility] [place] [facility] [address] [id number], [place] [address] Jan, [facility] [place] [facility] [address] [id number] [place] [address] Jan, [facility] [place] [facility] [address] [id number], [place] [address] Jan, [facility] [place] [facility] [address] [id number], [place] [address] Jan, [facility] [place] [facility] [address] [id number], [place] [address] Jan, [facility] [place] [facility] [address] [id number][place] [address] Jan, [facility] [place] [facility] [address] [id number][place] [id number] Jan, [facility] [place] [facility] [address] [id number], [place] [address] Dec, [facility] [place] [facility] [address] [id number], [place] [address] Dec, [facility] [place] [facility] [address] [id number], [place] [address] Dec, [facility] [place] [facility] [address] [id number], [place] [address] Dec, [facility] [place] [facility] [address] [id number], [place] [address] Dec, [facility] [place] [facility] [address] [id number], [place] [address] Dec, [facility] [place] [facility] [address] [id number], [place] [address] Dec, [facility] [place] [facility] [address] [id number], [place] [address] Dec, [facility] [place] [facility] [address] [id number], [place] [address] Dec, [facility] [place] [facility] [address] [id number] [place] [address] Dec, [facility] [address] [id number] [place] [address] Nov, [facility] [address] [id number] [place] [address] Nov, [facility] [address] [id number] [place] [address] 24 Nov, 2012 [facility] [address] [id number] [place] [address] 20 Nov, 2012 [facility] [address] [id number] [place] [address] Nov, [facility] [address] [id number] [place] [address] Nov, [facility] [address] [id number] [place] [address] Nov, [facility] [address] [id number] [place] [address] Nov, [facility] [address] [id number] [place] [address] Oct, [facility] [address] [id number] [place] [address] Oct, [facility] [address] [id number] [place] [address] Oct, [facility] [address] [id number] [place] [address] Sep, [facility] [place] [facility] [address] [id number] [place] [address] Sep, [facility] [place] [facility] [address] [id number] [place] [address] Sep, [facility] [address] [id number] [place] [address] Sep, [facility] [place] [facility] [address] [id number] [place] [address] Sep, [facility] [address] [id number] [place] [address] Aug, [facility] [address] [id number] [place] [address] Aug, [facility] [address] [id number] [place] [address] Aug, [facility] [address] [id number] [place] [address] Aug, [facility] [address] [id number] [place] [address] Aug, [facility] [address] [id number] [place] [address] Aug, [facility] [address] [id number] [place] [address] July, [facility] [address] [id number] [place] [address] July, [facility] [address] [id number] [place] [address] July, [facility] [address] [id number] [place] [address] July, [facility] [address] [id number] [place] [address] July, [facility] [place] [facility] [address] [id number] [place] [address] July, [facility] [place] [facility] [address] [id number] [place] [address] Jun, [facility] [place] [facility] [address] [id number] [place] [address] Jun, [facility] [place] [facility] [address] [id number], [place] [address] Jun, [facility] [address] [id number] [place] [address] Jun, [facility] [address] [id number] [place] [address] May, [facility] [address] [id number] [place] [address] May, [facility] [address] [id number] [place] [address] May, [facility] [address] [id number] [place] [address] Apr, [facility] [address] [id number] [place] [address] Mar, [facility] [address] [id number] [place] [address] Mar, [facility] [address] [id number] [place] [address] 17 Mar, 2012 [facility] [address] [id number] [place] [address] 16 Mar, 2012 [facility] [address] [id number] [place] [address] 15 Mar, 2012 [facility] [address] [id number] [place] [address] 31 Feb, 2012 [facility] [place] [facility] [address] [id number] [place] [address] 31 Feb, 2012 [facility] [place] [facility] [address] [id number] [place] [address] 17 Feb, 2012 [facility] [place] [facility] [address] [id number] [place] [address] 17 Feb, 2012 [facility] [place] [facility] [address] [id number] [place] [address] Jan, [facility] [place] [facility] [address] [id number] [place] [address] Jan, [facility] [address] [id number] [place] [address] Jan, [facility] [address] [id number] [place] [address] Jan, [facility] [address] [id number] [place] [address] Dec, [facility] [address] [id number] [place] [address] Dec, [facility] [address] [id number] [place] [address] Nov, [facility] [address] [id number] [place] [address] Oct, [facility] [address] [id number] [place] [address] Oct, [facility] [address] [id number] [place] [address] Oct, [facility] [address] [id number] [place] [address] Oct, [facility] [address] [id number] [place] [address] Oct, [facility] [address] [id number] [place] [address] Sep, [facility] [address] [id number] [place] [address] Sep, [facility] [address] [id number] [place] [address] Aug, [facility] [address] [place] [id number] Aug, [facility] [address] [id number] [place] [address] Aug, [facility] [address] [id number] [place] [address] July, [facility] [address] [id number] [place] [address] July, [facility] [place] [facility] [address] [id number] [place] [address] Jun, [facility] [place] [facility] [address] [id number] [place] [address] Jun, [facility] [address] [id number] [place] [address] Jun, [facility] [address] [id number] [place] [address] Jun, [facility] [address] [id number] [place] [address] Apr, [facility] [address] [id number] [place] [address] Apr, [facility] [address] [id number] [place] [address] Apr, [facility] [address] [id number] [place] [address] Mar, [facility] [address] [id number] [place] [address] Mar, [facility] [address] [id number] [place] [address] Mar, [facility] [place] [facility] [address] [id number] [place] [address] Mar, [facility] [place] [facility] [address] [id number] [place] [address] Mar, [facility] [place] [facility] [address] [id number] [place] [address] Jan, [facility] [place] [facility] [address] [id number], [place] [address] 07 Jan, 2011 [facility] [place] [facility] [address] [id number] [place] [address] Jan, [facility] [place] [facility] [address] [id number] [place] [address] 17 Mar, 2010 [facility] [place] [facility] [address] [id number] [place] [address] 11 Mar, 2010 [facility] [place] [facility] [address] [id number] [place] [address] Feb, [facility] [place] [facility] [address] [id number] [place] [address] Feb, [facility] [place] [facility] [address] [id number] [place] [address] Feb, [facility] [place] [facility] [address] [id number] [place] [address] Jan, [facility] [place] [facility] [address] [id number] [place] [address] Jan, [facility] [place] [facility] [address] [id number] [place] [address] Dec, [facility] [place] [facility] [address] [id number] [place] [address] Dec, [facility] [place] [facility] [address] [id number], [place] [address] May, [facility] [place] [facility] [address] [id number] [place] [address] 10 Apr, 2009 [facility] [place] [facility] [address] [id number] [place] [address] Feb, [facility] [place] [facility] [address] [id number] [place] [address] Feb, [facility] [place] [facility] [address] [id number] [place] [address] Jan, [facility] [place] [facility] [address] [facility] [id number] [place] [address] Jan, [facility] [address] [facility] [id number], [place] [address] Jan, [facility] [address] [facility] [id number], [place] [address] Jan, [facility] [address] [facility] [id number], [place] [address] Jan, IMMUNIZATIONS No Known Immunizations SOCIAL HISTORY Never Assessed REASON FOR VISIT intake--Eli Haas MA PLAN OF CARE Activity Details Follow Up 6 Weeks Reason: VITAL SIGNS Height 66 in 2016-11-23 Weight 295.7 lbs 2016-11-23 Heart Rate 80 bpm 2016-11-23 Respiratory Rate 20 2016-11-23 BMI 47.72 kg/m2 2016-11-23 Blood pressure systolic 126 mmHg 2016-11-23 Blood pressure diastolic 88 mmHg 2016-11-23 MEDICATIONS Medication Instructions Dosage Frequency Start Date End Date Duration Status Victoza 18 MG/3ML Subcutaneous Once a day 1.2 mg 24h Aug, Active Klonopin 1 MG Orally as needed Twice a day 1 tablet 12h 30 days Active Hydrocodone-Acetaminophen 5-325 MG Orally every 6 hrs 1 tablet as needed 6h Oct, 28 days Active MS Contin 30 MG Orally every 12 hrs 1 tablet 12h Oct, 28 days Active Prozac 40 MG Orally Once a day 1 capsule in the morning 24h 30 days Active Atorvastatin Calcium 40 mg Orally Once a day 1 tablet 24h Aug, 30 day(s) Active Invega 6 MG Orally Once a day TAKE TWO TABLETS BY MOUTH ONCE DAILY 24h 30 days Active Pantoprazole Sodium 40 MG Orally Once a day 1 tablet 24h 30 Active Gabapentin 600 MG Orally 3 times a day 2 tablets 8h 30 days Active Prozac 10 MG Orally Once a day 1 capsule in the morning 24h Jun, 30 days Active Insulin Syringe 31G X 5/16 subcutaneously Once a day as directed 24h Aug, Active HydrOXYzine Pamoate 50 MG Orally once a day at bedtime 1 or 2 capsules as needed Jun, 30 days Active Metformin HCl 500 MG Orally Twice a day 1 tablet with meals 12h Active Pen [place] 31G X 6 MM as directed 24h May, Active Clickfine Pen [place] 31 gauge ONE - DAILY E11.42 100 Active RESULTS No Results PROCEDURES Procedure Date Ordered Result Body Site [facility] VISIT ESTABLISHED PATIENT Nov 23, 2016 INSTRUCTIONS MEDICATIONS ADMINISTERED No Known Medications [...]
--- OUTSIDE RECORDS SUMMARY | 2018-10-04 07:01 | XMS REPORT ---
Author Author ALLA GAR Organization [employer] Address Unknown Phone Unavailable Care Team Providers Care Layer Off Name Role Phone ALLA GAR CP Unavailable Allergies No Known Allergies Problems [...] Date End Date Status Dosage MS Contin [facility] [address]-98 30 MG Orally Once a day in the evening Oct 22, 2014 1 tablet MS Contin [facility] [address]-82 15 MG Orally Once a day in the am Oct 22, 2014 1 tablet Hydrocodone-Acetaminophen [facility] [address]-89 5-325 MG May 29, 2014 take 1 tablet by oral route every 6 hours as needed for pain Results No Known Results Summary Purpose [employer] Submission
--- OUTSIDE RECORDS SUMMARY | 2018-10-04 07:02 | XMS REPORT ---
Author Author KISHA CHAVIS [facility] Address [address] [place] [address] Care Team Providers Care Antenna Rigger Name Role Phone PALMIRA KISHA Unavailable PROBLEMS Type Condition ICD9-CM Code XOA01-TY Code Onset Dates Condition Status SNOMED Code Problem MITCHELL treated with BiPAP G47.33 Active 67502145 Problem Acute right-sided low back pain with right-sided sciatica M54.41 Active 49428272 Problem Chronic prescription opiate use Z79.891 Active 356887113 Problem BMI 45.0-49.9, adult Z68.42 Active 623341022 Problem Gastroesophageal reflux disease, esophagitis presence not specified K21.9 Active 693836274 Problem Macrocytosis D75.89 Active 762441901 Problem Major depressive disorder, recurrent episode, unspecified severity F33.9 Active 02471002 Problem Primary osteoarthritis of both knees M17.0 Active 502355395 Problem Severe major depression with psychotic features F32.3 Active 98642565 Problem Posttraumatic stress disorder F43.10 Active 62519109 Problem Tobacco abuse Z72.0 Active 940920277 Problem Obesity, morbid, BMI 40.0-49.9 E66.01 Active 925386474 Problem History of weight loss surgery Z98.84 Active 732091023 Problem PTSD (post-traumatic stress disorder) F43.10 Active 97858232 Problem Non-ischemic cardiomyopathy I42.9 Active 58119500 Problem Chronic obstructive pulmonary disease, unspecified COPD type J44.9 Active 19938424 Problem Pure hypercholesterolemia E78.0 Active 656705009 Problem Type 2 diabetes mellitus with diabetic polyneuropathy E11.42 Active 385629011 Problem Chronic systolic (congestive) heart failure I50.22 Active 396240936 Problem History of DVT (deep vein thrombosis) Z86.718 Active 206807302 Problem Nocturnal hypoxia G47.34 Active 738610138 Problem Chronic pain syndrome G89.4 Active 849913633 Problem Essential hypertension I10 Active 33455355 ALLERGIES Unknown Allergies SOCIAL HISTORY No smoking Hx information available PLAN OF CARE VITAL SIGNS MEDICATIONS Medication Instructions Dosage Frequency Start Date End Date Duration Status Hydrocodone-Acetaminophen 5-325 MG Orally every 6 hrs 1 tablet as needed 6h Jan, 28 days Active MS Contin 15 MG Orally Once a day in the am- appt needed before due for next refill 1 tablet Oct, 28 days Active MS Contin 30 MG Orally Once a day in the evening- appt needed before due for next refill 1 tablet Oct, 28 days Active RESULTS No Results PROCEDURES No Known procedures IMMUNIZATIONS No Known Immunizations
--- OUTSIDE RECORDS SUMMARY | 2018-10-04 07:02 | XMS REPORT ---
Author Author KATHY ESTHER [facility] Address [address] [place] [address] Care Team Providers Care Homicide Squad Captain Name Role Phone KATHYBRIAN VILLEGASY Unavailable PROBLEMS Type Condition ICD9-CM Code [id number] Code Onset Dates Condition Status SNOMED Code Problem Primary osteoarthritis of both knees M17.0 Active 663477320 Problem Nocturnal hypoxia G47.34 Active 665496543 Problem Chronic prescription opiate use Z79.891 Active 957397456 Problem Pure hypercholesterolemia E78.0 Active 685685594 Problem Acute right-sided low back pain with right-sided sciatica M54.41 Active 41243658 Problem Type 2 diabetes mellitus with diabetic polyneuropathy E11.42 Active 627974166 Problem Severe major depression with psychotic features F32.3 Active 86384169 Problem Obesity, morbid, BMI 40.0-49.9 E66.01 Active 167296924 Problem Posttraumatic stress disorder F43.10 Active 01680745 Problem Primary insomnia F51.01 Active 3371353 Problem Mood disorder F39 Active 72910829 Problem History of DVT (deep vein thrombosis) Z86.718 Active 406181674 Problem Chronic pain syndrome G89.4 Active 083849079 Problem Chronic systolic (congestive) heart failure I50.22 Active 885826510 Problem Macrocytosis D75.89 Active 400299870 Problem Tobacco abuse Z72.0 Active 812100964 Problem Mild episode of recurrent major depressive disorder F33.0 Active 290601145 Problem BMI 45.0-49.9, adult Z68.42 Active 252629654 Problem Gastroesophageal reflux disease, esophagitis presence not specified K21.9 Active 944163257 Problem Non-ischemic cardiomyopathy I42.9 Active 55881112 Problem Essential hypertension I10 Active 36679120 Problem Major depressive disorder, recurrent episode, unspecified severity F33.9 Active 21019772 Problem PTSD (post-traumatic stress disorder) F43.10 Active 80943401 Problem MITCHELL treated with BiPAP G47.33 Active 20562303 Problem Chronic obstructive pulmonary disease, unspecified COPD type J44.9 Active 38948660 Problem History of weight loss surgery Z98.84 Active 111240265 ALLERGIES Substance Reaction Event Type Date Status Trazodone HCl nausea and vomiting Drug Allergy Jan, Active Chantix nausea Drug Allergy Jan, Active ENCOUNTERS Encounter Location Date Diagnosis [place] [id number] [place] [address] Sep, [place] [address] [place] [id number] [place] [address] July, Primary osteoarthritis of both knees M17.0 and Chronic pain syndrome G89.[address] [address] July, Type 2 diabetes mellitus with diabetic polyneuropathy E11.42 ; Essential hypertension I10 ; Pure hypercholesterolemia E78.0 ; Chronic prescription opiate use Z79.891 ; Tobacco abuse Z72.0 ; Primary osteoarthritis of both knees M17.0 ; Primary insomnia F51.01 and BMI 45.0-49.9, adult Z68.42 [place] [id number] [place] [address] 08 Jul, 2017 Medicare annual wellness visit, [...] specified K21.9 and Encounter for immunization Z23 [place] [address] [place] [id number] [place] [address] July, Primary osteoarthritis of both knees M17.0 and Chronic pain syndrome G89.4 [facility] [id number] [place] [address] Jun, Infection of right ear H66.91 ; Wheezing on auscultation R06.2 and BMI 45.0-49.9, adult Z68.42 [facility] [address] [place] [id number] [place] [address] Jun, [facility] [address] [place] [id number] [place] [address] Jun, Primary osteoarthritis of both knees M17.0 and Chronic pain syndrome G89.4 [facility] [address] [place] [address] [id number] [place] [address] May, [facility] [address] [place] [address] [id number] [place] [address] May, BMI 45.0-49.9, adult Z68.42 ; Mood disorder F39 and Posttraumatic stress disorder F43.10 [facility] [address] [place] [id number] [place] [address] May, [facility] [address] [place] [id number] [place] [address] May, Primary osteoarthritis of both knees M17.0 and Chronic pain syndrome G89.4 [facility] [address] [id number] [place] [address] May, Mood disorder F39 [facility] [address] [place] [id number] [place] [address] Apr, Type 2 diabetes mellitus with diabetic polyneuropathy E11.42 [facility] [address] [place] [id number] [place] [address] Apr, [facility] [address] [place] [id number] [place] [address] Apr, Primary osteoarthritis of both knees M17.0 and Chronic pain syndrome G89.4 [facility] [address] [place] [id number] [place] [address] Apr, Mood disorder F39 [facility] [address] [place] [id number] [place] [address] Mar, Mood disorder F39 and Posttraumatic stress disorder F43.10 [facility] [id number] [place] [address] Mar, Primary osteoarthritis of both knees M17.0 and Chronic pain syndrome G89.4 [facility] [address] [place] [id number] [place] [address] Feb, Primary osteoarthritis of both knees M17.0 and Chronic pain syndrome G89.4 [facility] [address] [place] [id number] [place] [address] Feb, Mood disorder F39 [place] [address] [place] [id number] [place] [address] Jan, Type 2 diabetes mellitus with diabetic polyneuropathy E11.42 ; Primary osteoarthritis of both knees M17.0 ; Mood disorder F39 ; Obesity, morbid, BMI 40.0-49.9 E66.01 ; Chronic prescription opiate use Z79.891 ; Acute suppurative otitis media of both ears without spontaneous rupture of tympanic membranes, recurrence not specified H66.003 and BMI 45.0-49.9, adult Z68.42 [place] [address] [place] [id number] [place] [address] Jan, Primary osteoarthritis of both knees M17.0 and Chronic pain syndrome G89.4 [facility] [address] [place] [id number] [place] [address] Dec, Mood disorder F39 and Posttraumatic stress disorder F43.10 [facility] [address] [place] [id number] [place] [address] Dec, Primary osteoarthritis of both knees M17.0 and Chronic pain syndrome G89.4 [facility] [address] [place] [id number] [place] [address] 18 Nov, 2016 Chronic pain syndrome G89.4 [facility] [address] [place] [id number] [place] [address] 15 Nov, 2016 Primary osteoarthritis of both knees M17.0 and Chronic pain syndrome G89.4 [facility] [address] [address] 13 Nov, 2016 Type 2 diabetes mellitus with diabetic polyneuropathy E11.42 and Chronic pain syndrome G89.4 [facility] [address] [place] [id number] [place] [address] 12 Nov, 2016 Posttraumatic stress disorder F43.10 and Mood disorder F39 [facility] [address] [place] [id number] [place] [address] Oct, Chronic pain syndrome G89.4 [facility] [address] [place] [id number] [place] [address] Oct, Type 2 diabetes mellitus with diabetic polyneuropathy E11.42 ; BMI 45.0-49.9, adult Z68.42 ; Primary osteoarthritis of both knees M17.0 and Skin lesion L98.9 [facility] [address] [place] [id number] [place] [address] Oct, Chronic pain syndrome G89.4 [facility] [address] [place] [id number] [place] [address] Sep, Chronic pain syndrome G89.4 [facility] [address] [place] [id number] [place] [address] Sep, [facility] [id number] [place] [address] Sep, Chronic pain syndrome G89.4 [facility] [id number] [place] [address] Aug, Chronic pain syndrome G89.4 [facility] [address] [place] [id number] [place] [address] Aug, [facility] [id number] [place] [address] Aug, Macrocytosis D75.89 and Pure hypercholesterolemia E78.0 [facility] [address] [place] [id number] [place] [address] Aug, Pure hypercholesterolemia E78.0 [facility] [address] [place] [id number] [place] [address] Aug, Macrocytosis D75.89 [facility] [address] [place] [id number] [place] [address] Aug, Pure hypercholesterolemia E78.0 ; Type 2 diabetes mellitus with diabetic polyneuropathy E11.42 ; MITCHELL treated with BiPAP G47.33 and Chronic pain syndrome G89.4 [facility] [address] [place] [id number] [place] [address] Aug, [place] [address] [place] [id number] [place] [address] Aug, Hemorrhoids, unspecified hemorrhoid type K64.9 [place] [address] [place] [id number] [place] [address] Aug, Chronic pain syndrome G89.4 ; Type 2 diabetes mellitus with diabetic polyneuropathy E11.42 ; Hemorrhoids, unspecified hemorrhoid type K64.9 ; Tobacco abuse Z72.0 and Primary osteoarthritis of both knees M17.0 [facility] [address] [place] [id number] [place] [address] July, Chronic pain syndrome G89.4 [facility] [address] [place] [id number] [place] [address] July, [facility] [address] [place] [id number] [place] [address] Jun, Chronic pain syndrome G89.4 [facility] [address] [place] [id number] [place] [address] Jun, Chronic pain syndrome G89.4 [facility] [address] [place] [id number] [place] [address] Jun, Severe major depression with psychotic features F32.3 and Posttraumatic stress disorder F43.10 [facility] [address] [address] Jun, Chronic pain syndrome G89.4 [facility] [address] [place] [id number] [place] [address] Jun, [facility] [address] [place] [id number] [place] [address] May, Chronic pain syndrome G89.4 [facility] [address] [place] [id number] [place] [address] May, Tobacco abuse Z72.0 [facility] [address] [place] [id number] [place] [address] May, [facility] [address] [place] [id number] [place] [address] Apr, Chronic pain syndrome G89.4 [facility] [address] [place] [id number] [place] [address] Apr, [facility] [address] [place] [id number] [place] [address] Apr, Right foot pain M79.671 [facility] [address] [place] [id number] [place] [address] Mar, Type 2 diabetes mellitus with diabetic polyneuropathy E11.42 ; MITCHELL treated with BiPAP G47.33 ; Pure hypercholesterolemia E78.0 ; Chronic pain syndrome G89.4 ; Tobacco abuse Z72.0 and Obesity, morbid, BMI 40.0-49.9 E66.01 [facility] [address] [address] Mar, [facility] [address] [place] [id number] [place] [address] Mar, [facility] [address], [place] [address] Mar, [facility] [address] [place] [id number] [place] [address] Mar, [facility] [address], [place] [address] Mar, [facility] [address] [address] Mar, Severe major depression with psychotic features F32.3 and Posttraumatic stress disorder F43.10 [facility] [address] [address] Mar, [facility] [address] [facility] [id number], [place] [address] Feb, [facility] [address] [place] [id number] [place] [address] Feb, [facility] [address] [address] Jan, [facility] [address] [place] [id number] [place] [address] Jan, [facility] [address], [place] [address] Dec, Posttraumatic stress disorder F43.10 and Severe major depression with psychotic features F32.3 [facility] [address], [place] [address] Dec, Type 2 diabetes mellitus with diabetic polyneuropathy E11.42 ; Chronic pain syndrome G89.4 and Acute right-sided low back pain with right-sided sciatica M54.41 [facility] [address], [place] [address] Dec, [facility] [address], [place] [address] Dec, [facility] [address], [place] [address] Nov, [facility] [address], [place] [address] Nov, [facility] [address], [place] [address] Nov, [facility] [address] [place] [address] Oct, [facility] [address], [place] [address] Oct, [facility] [address] [place] [id number] [place] [address] Sep, Dental examination Z01.20 [facility] [address] [place] [address] Sep, [facility] [address] [place] [id number] [place] [address] Sep, Type 2 diabetes mellitus with diabetic polyneuropathy E11.42 ; Chronic pain syndrome G89.4 ; Chronic prescription opiate use Z79.891 ; Injury of right index finger, sequela S69.91XS and Anejaculation N50.8 [facility] [address], [place] [address] Aug, [facility] [address] [place] [id number] [place] [address] Aug, [facility] [address], [place] [address] Aug, Cellulitis of finger of right hand L03.011 [facility] [address], [place] [address] July, [facility] [address], [place] [address] July, [facility] [address] [place] [address] Jun, Onychomycosis B35.1 [facility] [address], [place] [address] Jun, Severe major depression with psychotic features F32.3 and Posttraumatic stress disorder F43.10 [facility] [address], [place] [address] Jun, [facility] [address] [place] [id number] [place] [address] Jun, [facility] [address] [place] [address] Jun, [facility] [address] [place] [id number] [place] [address] May, Type 2 diabetes mellitus with diabetic polyneuropathy E11.42 [facility] [address] [place] [id number] [place] [address] May, Type 2 diabetes mellitus with diabetic polyneuropathy E11.42 and Urinary hesitancy R39.11 [facility] [address] [place] [id number] [place] [address] May, Type 2 diabetes mellitus with diabetic polyneuropathy E11.42 ; Left hip pain M25.552 and Benign prostatic hyperplasia with lower urinary tract symptoms, unspecified morphology N40.1 [facility] [address] [place] [address] May, [facility] [address] [place] [address] Apr, Severe major depression with psychotic features F32.3 and Posttraumatic stress disorder F43.10 [facility] [address], [place] [address] Apr, [facility] [id number] [place] [address] Mar, [facility] [address] [place] [id number] [place] [address] Mar, Dysuria R30.0 and Urinary hesitancy R39.11 [facility] [address] [place] [address] Mar, Onychomycosis B35.1 [facility] [address], [place] [address] Mar, [facility] [address], [place] [address] Feb, [facility] [address], [place] [address] Jan, [facility] [address] [place] [id number] [place] [address] Jan, Posttraumatic stress disorder F43.10 and Severe major depression with psychotic features F32.3 [facility] [address] [place] [id number] [place] [address] Jan, [facility] [address], [place] [address] Jan, Chronic pain syndrome G89.4 ; Type 2 diabetes mellitus with diabetic polyneuropathy E11.42 ; Decreased pedal pulses R09.89 and Paresthesia of both hands R20.2 [facility] [address], [place] [address] Dec, Posttraumatic stress disorder F43.10 and Severe major depression with psychotic features F32.3 [facility] [address], [place] [address] Dec, [facility] [address], [place] [address] Dec, [facility] [address], [place] [address] Dec, Onychomycosis B35.1 [facility] [address], [place] [address] Dec, [facility] [address], [place] [address] Dec, [facility] [address], [place] [address] Nov, [facility] [address], [place] [address] Oct, Depression, major, recurrent, moderate 296.32 and Posttraumatic stress disorder 309.81 [facility] [address] [place] [id number] [place] [address] Oct, [facility] [address] [place] [id number] [place] [address] Oct, [facility] [address] [place] [id number] [place] [address] Oct, [place] [address] [place] [id number] [place] [address] Sep, Posttraumatic stress disorder 309.81 and Depression, major, recurrent, moderate 296.32 [place] [address] [place] [id number] [place] [address] Sep, [place] [address] [place] [id number] [place] [address] Sep, Chronic airway obstruction, not elsewhere classified [address] [id number] [place] [address] Sep, Onychomycosis 110.1 and DM neuro manif type II 250.60 [place] [id number] [place] [address] Sep, Chronic pain 338.29 ; Chronic airway obstruction, not elsewhere classified 496 ; Osteoarthritis of knees, bilateral 715.96 and On potassium wasting diuretic therapy V58.69 [place] [address] [place] [id number] [place] [address] Sep, Insect bites 919.4 ; Sinusitis 473.9 and GERD (gastroesophageal reflux disease) 530.81 [place] [address] [place] [address] Aug, Depression, major, recurrent, moderate 296.32 and Posttraumatic stress disorder 309.81 [place] [address], [place] [address] Aug, [facility] [address] [id number], [place] [address] Aug, [facility] [address] [facility] [id number], [place] [address] Aug, [facility] [address] [facility] [id number], [place] [address] July, Major depressive disorder, recurrent episode, moderate 296.32 and Posttraumatic stress disorder 309.81 [facility] [address] [facility] [id number] [place] [address], [facility] [address] [facility] [id number], [place] [address] July, [facility] [id number], [place] [address] July, [facility] [address] [facility] [id number], [place] [address] July, [facility] [address] [facility] [id number], [place] [address] Jun, [facility] [address] [facility] [id number], [place] [address] Jun, [facility] [id number], [place] [address] May, [facility] [place] [facility] [address] [facility] [id number], [place] [address] May, [facility] [place] [facility] [address] [id number] [place] [address] May, [facility] [place] [facility] [address] [facility] [id number], [place] [address] May, [facility] [place] [facility] [address] [facility] [id number], [place] [address] May, [facility] [place] [facility] [address] [facility] [id number] [place] [address] May, [facility] [place] [facility] [address] [id number] [place] [address] May, [facility] [place] [facility] [address] [id number] [place] [address] May, [facility] [place] [facility] [address] [id number] [place] [address] May, [facility] [place] [facility] [address] [id number] [place] [address] Apr, 2014 [facility] [place] [facility] [address] [id number] [place] [address] Apr, 2014 [facility] [place] [facility] [address] [facility] [id number] [place] [address] Apr, [facility] [place] [facility] [address] [facility] [id number] [place] [address] Apr, 2014 [facility] [place] [facility] [address] [id number] [place] [address] Apr, [facility] [place] [facility] [address] [facility] [id number] [place] [address] Apr, [facility] [place] [facility] [address] [facility] [id number] [place] [address] Apr, [facility] [place] [facility] [address] [facility] [id number] [place] [address] Apr, [facility] [place] [facility] [address] [facility] [id number] [place] [address] Apr, [facility] [place] [facility] [address] [facility] [id number] [place] [address] Mar, [facility] [place] [facility] [address] [facility] [id number] [place] [address] Mar, [facility] [place] [facility] [address] [facility] [id number] [place] [address] Mar, [facility] [place] [facility] [address] [id number] [place] [address] Mar, [facility] [place] [facility] [address] [id number] [place] [address] 15 Mar, 2014 [facility] [place] [facility] [address] [id number] [place] [address] 15 Mar, 2014 [facility] [place] [facility] [address] [id number] [place] [address] 15 Mar, 2014 [facility] [place] [facility] [address] [id number] [place] [address] 15 Mar, 2014 [facility] [place] [facility] [address] [id number] [place] [address] 15 Mar, 2014 [facility] [place] [facility] [address] [id number] [place] [address] Mar, [facility] [place] [facility] [address] [id number] [place] [address] 14 Mar, 2014 [facility] [place] [facility] [address] [id number] [place] [address] Mar, [facility] [place] [facility] [address] [id number] [place] [address] Mar, [facility] [place] [facility] [address] [id number], [place] [address] Mar, [facility] [place] [facility] [address] [id number], [place] [address] 14 Mar, 2014 [facility] [place] [facility] [address] [id number] [place] [address] Mar, [facility] [place] [facility] [address] [id number], [place] [address] Mar, [facility] [place] [facility] [address] [id number] [place] [address] Mar, [facility] [place] [facility] [address] [id number] [place] [address] 16 Feb, 2014 [facility] [address] [id number] [place] [address] 16 Feb, 2014 [facility] [place] [facility] [address] [id number] [place] [address] 15 Feb, 2014 [facility] [place] [facility] [address] [id number] [place] [address] 15 Feb, 2014 [facility] [place] [facility] [address] [id number] [place] [address] 15 Feb, 2014 [facility] [place] [facility] [address] [id number] [place] [address] 15 Feb, 2014 [facility] [place] [facility] [address] [id number] [place] [address] Jan, [facility] [place] [facility] [address] [id number] [place] [address] Jan, [facility] [place] [facility] [address] [id number] [place] [address] Jan, [facility] [place] [facility] [address] [id number] [place] [address] Jan, [facility] [place] [facility] [address] [id number] [place] [address] Jan, [facility] [place] [facility] [address] [id number] [place] [address] Jan, [facility] [place] [facility] [address] [id number] [place] [address] Jan, [facility] [place] [facility] [address] [id number] [place] [address] Jan, [facility] [place] [facility] [address] [id number] [place] [address] Jan, [facility] [place] [facility] [address] [id number] [place] [address] Jan, [facility] [place] [facility] [address] [id number] [place] [address] Dec, [facility] [place] [facility] [address] [id number] [place] [address] Dec, [facility] [place] [facility] [address] [id number] [place] [address] Dec, [facility] [place] [facility] [address] [id number] [place] [address] Dec, [facility] [place] [facility] [address] [id number] [place] [address] Nov, [facility] [place] [facility] [address] [id number] [place] [address] Nov, 2013 [facility] [place] [facility] [address] [id number] [place] [address] Nov, [facility] [place] [facility] [address] [id number] [place] [address] Nov, [facility] [place] [facility] [address] [id number] [place] [address] Nov, [facility] [place] [facility] [address] [id number] [place] [address] Nov, [facility] [place] [facility] [address] [id number] [place] [address] Oct, [facility] [place] [facility] [address] [id number], [place] [address] Oct, [facility] [place] [facility] [address] [id number] [place] [address] Oct, [facility] [place] [facility] [address] [id number] [place] [address] Oct, [facility] [place] [facility] [address] [id number], [place] [address] Sep, [facility] [place] [facility] [address] [id number], [place] [address] Sep, [facility] [place] [facility] [address] [id number] [place] [address] Sep, [facility] [place] [facility] [address] [id number] [place] [address] Sep, [facility] [place] [facility] [address] [id number] [place] [address] Sep, [facility] [place] [facility] [address] [id number] [place] [address] Sep, [facility] [place] [facility] [address] [id number] [place] [address] July, [facility] [place] [facility] [address] [id number] [place] [address] July, [facility] [place] [facility] [address] [id number] [place] [address] July, [facility] [place] [facility] [address] [id number] [place] [address] July, [facility] [place] [facility] [address] [id number] [place] [address] Jun, [facility] [place] [facility] [address] [id number] [place] [address] Jun, [facility] [place] [facility] [address] [id number] [place] [address] Jun, [facility] [place] [facility] [address] [id number] [place] [address] Jun, [facility] [place] [facility] [address] [id number] [place] [address] Jun, [facility] [place] [facility] [address] [id number] [place] [address] Jun, [facility] [place] [facility] [address] [id number] [place] [address] May, [facility] [place] [facility] [address] [id number] [place] [address] May, [facility] [place] [facility] [address] [id number] [place] [address] Apr, [facility] [place] [facility] [address] [id number] [place] [address] Apr, [facility] [place] [facility] [address] [id number] [place] [address] Apr, [facility] [place] [facility] [address] [id number] [place] [address] Apr, [facility] [place] [facility] [address] [id number] [place] [address] Apr, [facility] [place] [facility] [address] [id number] [place] [address] Apr, [facility] [place] [facility] [address] [id number] [place] [address] Apr, [facility] [place] [facility] [address] [id number] [place] [address] Mar, [facility] [place] [facility] [address] [id number] [place] [address] Mar, [facility] [place] [facility] [address] [id number] [place] [address] Mar, [facility] [place] [facility] [address] [id number] [place] [address] Mar, [facility] [place] [facility] [address] [id number] [place] [address] Mar, [facility] [place] [facility] [address] [id number] [place] [address] Mar, [facility] [place] [facility] [address] [id number] [place] [address] Mar, [facility] [place] [facility] [address] [id number], [place] [address] Mar, [facility] [address] [id number], [place] [address] Feb, [facility] [place] [facility] [address] [id number], [place] [address] Feb, [facility] [place] [facility] [address] [id number], [place] [address] Feb, [facility] [place] [facility] [address] [id number], [place] [address] Feb, [facility] [place] [facility] [address] [id number] [place] [address] Feb, [facility] [place] [facility] [address] [id number], [place] [address] Feb, [facility] [address] [id number], [place] [address] Feb, [facility] [place] [facility] [address] [id number], [place] [address] Jan, [facility] [place] [facility] [address] [id number], [place] [address] Jan, [facility] [place] [facility] [address] [id number], [place] [address] Jan, [facility] [place] [facility] [address] [id number], [place] [address] Jan, [facility] [place] [facility] [address] [id number], [place] [address] Jan, [facility] [place] [facility] [address] [id number], [place] [address] Jan, [facility] [place] [facility] [address] [id number] [address] Jan, [facility] [place] [facility] [address] [id number] [id number] Jan, [facility] [place] [facility] [address] [id number] [place] [address] 31 Dec, 2012 [facility] [place] [facility] [address] [id number] [place] [address] Dec, 2012 [facility] [place] [facility] [address] [id number] [place] [address] Dec, 2012 [facility] [place] [facility] [address] [id number] [place] [address] Dec, 2012 [facility] [place] [facility] [address] [id number] [place] [address] Dec, 2012 [facility] [place] [facility] [address] [id number] [place] [address] Dec, 2012 [facility] [place] [facility] [address] [id number] [place] [address] Dec, [facility] [place] [facility] [address] [id number] [place] [address] Dec, 2012 [facility] [place] [facility] [address] [id number], [place] [address] 16 Dec, 2012 [facility] [place] [facility] [address] [id number] [place] [address] 04 Dec, 2012 [facility] [place] [facility] [address] [id number][place] [id number] 27 Nov, 2012 [facility] [place] [facility] [address] [id number][place] [id number] 27 Nov, 2012 [facility] [place] [facility] [address] [id number], [place] [address] 24 Sep, 2012 [facility] [place] [facility] [address] [id number], [place] [address] 20 Sep, 2012 [facility] [place] [facility] [address] [id number], [place] [address] 19 Sep, 2012 [facility] [place] [facility] [address] [id number], [place] [address] 13 Nov2012 [facility] [place] [facility] [address] [id number] [place] [address] Nov, [facility] [place] [facility] [address] [id number] [place] [address] Nov, [facility] [place] [facility] [address] [id number] [place] [address] Oct, [facility] [place] [facility] [address] [id number] [place] [address] Oct, [facility] [place] [facility] [address] [id number] [place] [address] Oct, [facility] [place] [facility] [address] [id number] [place] [address] Sep, [facility] [place] [facility] [address] [id number] [place] [address] Sep, [facility] [place] [facility] [address] [id number] [place] [address] Sep, [facility] [place] [facility] [address] [id number] [place] [address] Sep, [facility] [place] [facility] [address] [id number] [place] [address] Sep, [facility] [place] [facility] [address] [id number] [place] [address] Aug, [facility] [place] [facility] [address] [id number] [place] [address] Aug, [facility] [place] [facility] [address] [id number] [place] [address] Aug, [facility] [place] [facility] [address] [id number] [place] [address] Aug, [facility] [place] [facility] [address] [id number] [place] [address] Aug, [facility] [place] [facility] [address] [id number] [place] [address] Aug, [facility] [address] [id number] [place] [address] July, [facility] [address] [id number] [place] [address] July, [facility] [address] [id number] [place] [address] July, [facility] [address] [id number] [place] [address] July, [facility] [address] [id number] [place] [address] July, [facility] [address] [id number] [place] [address] July, [facility] [address] [id number] [place] [address] Jun, [facility] [address] [id number] [place] [address] Jun, [facility] [address] [id number] [place] [address] Jun, [facility] [place] [facility] [address] [id number] [place] [address] Jun, [facility] [address] [id number] [place] [address] May, [facility] [place] [facility] [address] [id number], [place] [address] May, [facility] [place] [facility] [address] [id number] [place] [address] May, [facility] [place] [facility] [address] [id number] [place] [address] Apr, [facility] [place] [facility] [address] [id number] [place] [address] Mar, [facility] [place] [facility] [address] [id number] [place] [address] 18 Mar, 2012 [facility] [address] [id number] [place] [address] 17 Mar, 2012 [facility] [address] [id number] [place] [address] 16 Mar, 2012 [facility] [address] [id number] [place] [address] 15 Mar, 2012 [facility] [address] [id number] [place] [address] 31 Feb, 2012 [facility] [id number] [place] [address], [place] [address] 31 Feb, 2012 [facility] [address] [id number] [place] [address] 17 Feb, 2012 [facility] [address] [facility] [id number] [place] [address] Feb, [facility] [address] [id number] [place] [address] Jan, [facility] [address] [facility] [id number] [place] [address] Jan, [facility] [address] [facility] [id number] [place] [address] Jan, [facility] [address] [id number] [place] [address] Jan, [facility] [address] [id number] [place] [address] Dec, [facility] [address] [id number] [place] [address] Dec, [facility] [address] [facility] [id number] [place] [address] Nov, [facility] [address] [facility] [id number] [place] [address] Oct, [facility] [address] [id number] [place] [address] Oct, [facility] [address] [id number] [place] [address] Oct, [facility] [address] [id number] [place] [address] Oct, [facility] [address] [id number] [place] [address] Oct, [facility] [address] [id number] [place] [address] Sep, [facility] [address] [id number] [place] [address] Sep, [facility] [address] [facility] [id number] [place] [address] Aug, [address] [id number] Aug, [facility] [address] [id number] [place] [address] Aug, [facility] [address] [id number] [place] [address] July, [facility] [address] [facility] [id number] [place] [address] July, [facility] [address] [id number] [place] [address] Jun, [facility] [address] [id number] [place] [address] Jun, [facility] [address] [id number] [place] [address] Jun, [facility] [address] [id number] [place] [address] Jun, [facility] [address] [id number] [place] [address] 15 Apr, 2011 [facility] [place] [facility] [address] [id number] [place] [address] 15 Apr, 2011 [facility] [place] [facility] [address] [id number] [place] [address] 10 Apr, 2011 [facility] [place] [facility] [address] [id number] [place] [address] Mar, [facility] [place] [facility] [address] [id number] [place] [address] Mar, [facility] [place] [facility] [address] [id number] [place] [address] Mar, [facility] [place] [facility] [address] [id number] [place] [address] Mar, [facility] [place] [facility] [address] [id number] [place] [address] Mar, [facility] [place] [facility] [address] [id number] [place] [address] Jan, [facility] [place] [facility] [address] [id number] [place] [address] Jan, [facility] [place] [facility] [address] [id number] [place] [address] Jan, [facility] [place] [facility] [address] [id number] [place] [address] Mar, [facility] [place] [facility] [address] [id number] [place] [address] Mar, [facility] [place] [facility] [address] [id number] [place] [address] Feb, [facility] [place] [facility] [address] [id number] [place] [address] Feb, [facility] [place] [facility] [address] [id number] [place] [address] Feb, [facility] [place] [facility] [id number], [place] [address] Jan, [facility] [id number] [place] [address] Jan, [facility] [id number], [place] [address] Dec, [facility] [id number] [place] [address] Dec, [facility] [id number] [place] [address] May, [facility] [id number] [place] [address] Apr, [facility] [id number] [place] [address] Feb, [facility] [id number] [place] [address] Feb, [facility] [id number], [place] [address] Jan, [facility] [id number] [place] [address] Jan, [facility] [id number], [place] [address] Jan, [facility] [id number], [place] [address] Jan, [facility] [id number], [place] [address] Jan, IMMUNIZATIONS No Known Immunizations SOCIAL HISTORY Never Assessed REASON FOR VISIT Pain management (chronic), Possible rt ear infection., States would like hi m treated for anger issues. -CAMELIA Fitzpatrick PLAN OF CARE Activity Details Follow Up 3 Months Reason:DMII VITAL SIGNS Height 66 in 2017-02-10 Weight 296 lbs 2017-02-10 Temperature 98.4 degrees Fahrenheit 2017-02-10 Heart Rate 90 bpm 2017-02-10 Respiratory Rate 22 2017-02-10 BMI 47.77 kg/m2 2017-02-10 Blood pressure systolic 110 mmHg 2017-02-10 Blood pressure diastolic 60 mmHg 2017-02-10 MEDICATIONS Medication Instructions Dosage Frequency Start Date End Date Duration Status Ventolin HFA 108 (90 Base) MCG/ACT Inhalation every 4 hrs 2 puffs as needed 4h 28 Mar, 2015 Not-Taking MS Contin 30 MG Orally every 12 hrs 1 tablet 12h Dec, 28 days Active Victoza 18 MG/3ML Subcutaneous Once a day 1.2 mg 24h Aug, Active Pen [place] 31G X 6 MM as directed 24h May, Active Invega 6 MG Orally Once a day TAKE TWO TABLETS BY MOUTH ONCE DAILY 24h Active Lidocaine HCl 2 % Externally Three times a day 1 application to affected area as needed 8h Aug, 14 days Not-Taking Clickfine Pen [place] 31 gauge ONE - DAILY E11.42 100 Active Penlac 8 % Externally Once a day 1 drop to affected area 24h Dec, Active HydrOXYzine Pamoate 50 mg TAKE 1 TO 2 CAPSULES ONCE DAILY AT BEDTIME NEEDED Active Paliperidone ER 6 MG TAKE TWO TABLETS BY MOUTH ONCE DAILY 30 Not-Taking Prozac 10 MG Orally Once a day 1 capsule in the morning 24h Jun, Active Atorvastatin Calcium 40 mg Orally Once a day 1 tablet 24h 30 Active Insulin Syringe 31G X 5/16 subcutaneously Once a day as directed 24h Aug, Active Ibuprofen 800 MG Orally Three times a day 1 tablet as needed 8h 90 days Active Metformin HCl 500 mg Orally Twice a day 1 tablet with meals 12h 90 days Active Klonopin 1 mg TAKE ONE TABLET BY MOUTH TWICE DAILY NEEDED Not-Taking Fluoxetine HCl 10 MG TAKE ONE CAPSULE BY MOUTH ONCE DAILY IN THE MORNING 30 Not-Taking Cyclobenzaprine HCl 10 MG TAKE ONE TABLET BY MOUTH THREE TIMES DAILY NEEDED 10 Not-Taking Pataday 0.2 % Ophthalmic 2 times a day 1 drop to affected eyes 12h Mar, Not-Taking Pantoprazole Sodium 40 MG Orally Once a day 1 tablet 24h 30 Active Hydrocodone-Acetaminophen 5-325 MG Orally every 6 hrs 1 tablet as needed 6h Dec, 28 days Active Amoxicillin 500 mg Orally every 12 hrs 1 tablet 12h 30 Jan, 2017 Feb, 10 day(s) Active Prozac 40 MG TAKE ONE CAPSULE BY MOUTH ONCE DAILY IN THE MORNING Active Gabapentin 600 MG Orally 3 times a day 2 tablets 8h 30 days Active RESULTS Name Result Date Reference Range A1C (IN HOUSE) 2017-02-10 A1C IN HOUSE 5.2 4.3 - 5.6 % Previous A1c 4.9 Lot [id number] Exp date 10/2018 [employer] 2017-02-10 PROCEDURES Procedure Date Ordered Result Body Site GLYCATED HEMOGLOBIN TEST Feb 10, 2017 No Charge Feb 10, 2017 [facility] VISIT ESTABLISHED PATIENT Feb 10, 2017 INSTRUCTIONS MEDICATIONS ADMINISTERED No Known Medications [...]
--- OUTSIDE RECORDS SUMMARY | 2018-10-04 07:02 | XMS REPORT ---
Author Author KATHY ESTHER [facility] Address [address] [place] [address] Care Team Providers Care Patient Registrar Name Role Phone KATHYBRIAN VILLEGASY Unavailable PROBLEMS Type Condition ICD9-CM Code [id number] Code Onset Dates Condition Status SNOMED Code Problem Primary osteoarthritis of both knees M17.0 Active 603483791 Problem MITCHELL treated with BiPAP G47.33 Active 71355707 Problem Nocturnal hypoxia G47.34 Active 880815163 Problem Chronic prescription opiate use Z79.891 Active 364293930 Problem Chronic systolic (congestive) heart failure I50.22 Active 345708903 Problem Acute right-sided low back pain with right-sided sciatica M54.41 Active 60671449 Problem Posttraumatic stress disorder F43.10 Active 19158023 Problem Severe major depression with psychotic features F32.3 Active 65702026 Problem Mood disorder F39 Active 08785653 Problem Mild episode of recurrent major depressive disorder F33.0 Active 424907139 Problem Type 2 diabetes mellitus with diabetic polyneuropathy E11.42 Active 879279981 Problem Pure hypercholesterolemia E78.0 Active 500785101 Problem Chronic pain syndrome G89.4 Active 466585049 Problem Tobacco abuse Z72.0 Active 599317217 Problem Obesity, morbid, BMI 40.0-49.9 E66.01 Active 610801713 Problem BMI 45.0-49.9, adult Z68.42 Active 865915815 Problem Macrocytosis D75.89 Active 203373027 Problem Major depressive disorder, recurrent episode, unspecified severity F33.9 Active 14597439 Problem Gastroesophageal reflux disease, esophagitis presence not specified K21.9 Active 976884732 Problem History of DVT (deep vein thrombosis) Z86.718 Active 649876380 Problem Essential hypertension I10 Active 01453058 Problem History of weight loss surgery Z98.84 Active 691415110 Problem PTSD (post-traumatic stress disorder) F43.10 Active 97136095 Problem Non-ischemic cardiomyopathy I42.9 Active 64876344 Problem Chronic obstructive pulmonary disease, unspecified COPD type J44.9 Active 17421060 ALLERGIES No Information SOCIAL HISTORY Never Assessed [...]
--- OUTSIDE RECORDS SUMMARY | 2018-10-04 07:03 | XMS REPORT ---
Author Author PARI ORTEGA [facility] eClinicalWorks Address Unknown Phone Unavailable Care Team Providers Care Reduction Furnace Operator Helper Name Role Phone PARI ORTEGA CP Unavailable [...] Instructions Start Date End Date Status Dosage [place] [facility] [id number] 1 MG TAKE ONE TABLET BY MOUTH TWICE DAILY Results No Known Results Summary Purpose eClinicalWorks Submission
--- OUTSIDE RECORDS SUMMARY | 2018-10-04 07:03 | XMS REPORT ---
Author Author ESTHER CHAVEZ [employer] Address Unknown Phone Unavailable Care Team Providers Care Urgent Care Physician Assistant Name Role Phone ESTHER CHAVEZ CP Unavailable Allergies, Adverse Reactions, Alerts Substance [...] PTSD (post-traumatic stress disorder) F43.10 Active Assessment Paresthesia of both hands R20.2 Active Assessment Chronic pain syndrome G89.4 Active Problem Pure hypercholesterolemia E78.0 Active Assessment Decreased pedal pulses R09.89 Active Problem Essential hypertension I10 Active Assessment Type 2 diabetes mellitus with diabetic polyneuropathy E11.42 Active Problem History of weight loss surgery Z98.84 Active Medications Medication Code System Code Instructions Start Date End Date Status Dosage MS Contin [facility] [place] [address]-16 30 MG Orally Once a day in the evening Oct 22, 2014 1 tablet MS Contin [facility] [place]] [address]-76 15 MG Orally Once a day in the am Oct 22, 2014 1 tablet Trazodone HCl [facility] [place] [facility]] [address]-21 150 MG Orally Once a day Jan 08, 2015 1 tablet at bedtime as needed HydrOXYzine Pamoate [facility] [place] 2] [address]-04 25 MG Orally every 8 hrs Jan 08, 2015 1 capsule as needed Hydrocodone-Acetaminophen [facility] [place] 2] [address]-50 5-325 MG May 29, 2014 take 1 tablet by oral route every 6 hours as needed for pain Penlac [facility] [place] [facility]] [address]-36 8 % Externally Once a day Dec 20, 2014 1 drop to affected area Klonopin [facility] [place] [facility]] [address]-45 1 MG Orally Twice a day Jan 08, 2015 1 tablet Nexium [facility] [place] 2] 08889013734 40 MG Orally Once a day qHS 1 capsule Prozac [facility] [place] 2] [address]-42 40 MG Orally Once a day Jan 08, 2015 1 capsule in the morning Invega [facility] [place] 2[place] [address]-41 6 MG Orally Once a day Jan 08, 2015 2 tablets Procedures Procedure Coding System Code Date No Charge CPT-4 86336 Jan 21, 2015 [facility] VISIT ESTABLISHED PATIENT CPT-4 G0467 Jan 21, 2015 GLYCATED HEMOGLOBIN TEST CPT-4 12909 Jan 21, 2015 Office Visit, Est Pt., Level 4 CPT-4 41399 Jan 21, 2015 Vital Signs Date/Time: Jan 21, 2015 Temperature 98.0 F Weight 254.5 lbs Height 66 in BMI 41.07 Index Blood Pressure Diastolic 82 mmHg Blood Pressure Systolic 120 mmHg Results Name Result Date Reference Range Unit Abnormality Flag A1C (IN HOUSE) Summary Purpose [employer]ClinicalWorks Submission
--- OUTSIDE RECORDS SUMMARY | 2018-10-04 07:03 | XMS REPORT ---
Author Author ESTHER CHAVEZ [employer] Address Unknown Phone Unavailable Care Team Providers Care Investigation Clerk Name Role Phone ESTHER CHAVEZ CP Unavailable [...] Date End Date Status Dosage MS Contin [facility] [address]-74 30 MG Orally Once a day in the evening Oct 22, 2014 1 tablet MS Contin [facility] [address]-21 15 MG Orally Once a day in the am Oct 22, 2014 1 tablet Hydrocodone-Acetaminophen [facility] [address]-66 5-325 MG May 29, 2014 take 1 tablet by oral route every 6 hours as needed for pain Results No Known Results Summary Purpose [employer]ClinicalWorks Submission
--- OUTSIDE RECORDS SUMMARY | 2018-10-04 07:03 | XMS REPORT ---
Author Author KATHY ESTHER [facility] Address [address] [place] [address] Care Team Providers Care Patient Registration Representative Name Role Phone KATHYBRIAN VILLEGASY Unavailable PROBLEMS Type Condition ICD9-CM Code OIV28-VC Code Onset Dates Condition Status SNOMED Code Problem Primary osteoarthritis of both knees M17.0 Active 433392275 Problem Nocturnal hypoxia G47.34 Active 389413372 Problem Chronic prescription opiate use Z79.891 Active 892801859 Problem Pure hypercholesterolemia E78.0 Active 314144788 Problem Acute right-sided low back pain with right-sided sciatica M54.41 Active 59895794 Problem Type 2 diabetes mellitus with diabetic polyneuropathy E11.42 Active 246298789 Problem Severe major depression with psychotic features F32.3 Active 90796145 Problem Obesity, morbid, BMI 40.0-49.9 E66.01 Active 772534757 Problem Posttraumatic stress disorder F43.10 Active 37380865 Problem Primary insomnia F51.01 Active 4819438 Problem Mood disorder F39 Active 12346980 Problem History of DVT (deep vein thrombosis) Z86.718 Active 362930961 Problem Chronic pain syndrome G89.4 Active 048021778 Problem Chronic systolic (congestive) heart failure I50.22 Active 232923085 Problem Macrocytosis D75.89 Active 020178675 Problem Tobacco abuse Z72.0 Active 238028306 Problem Mild episode of recurrent major depressive disorder F33.0 Active 615604253 Problem BMI 45.0-49.9, adult Z68.42 Active 092704427 Problem Gastroesophageal reflux disease, esophagitis presence not specified K21.9 Active 030234007 Problem Non-ischemic cardiomyopathy I42.9 Active 91087837 Problem Essential hypertension I10 Active 44998736 Problem Major depressive disorder, recurrent episode, unspecified severity F33.9 Active 40779316 Problem PTSD (post-traumatic stress disorder) F43.10 Active 39581164 Problem MITCHELL treated with BiPAP G47.33 Active 07132970 Problem Chronic obstructive pulmonary disease, unspecified COPD type J44.9 Active 06246573 Problem History of weight loss surgery Z98.84 Active 833916988 ALLERGIES No Information ENCOUNTERS Encounter Location Date Diagnosis [place] [id number] [place] [address] Sep, [place] [address] [place] [id number] [place] [address] July, Primary osteoarthritis of both knees M17.0 and Chronic pain syndrome G89.4 [place] [address] [place] [id number] [place] [address] July, Type 2 diabetes mellitus with diabetic polyneuropathy E11.42 ; Essential hypertension I10 ; Pure hypercholesterolemia E78.0 ; Chronic prescription opiate use Z79.891 ; Tobacco abuse Z72.0 ; Primary osteoarthritis of both knees M17.0 ; Primary insomnia F51.01 and BMI 45.0-49.9, adult Z68.42 [place] [id number] [place] [address] 08 Jul, 2017 Medicare annual wellness visit, [...] specified K21.9 and Encounter for immunization Z23 [place] [id number] [place] [address] July, Primary osteoarthritis of both knees M17.0 and Chronic pain syndrome G89.4 [facility] [id number] [place] [address] Jun, Infection of right ear H66.91 ; Wheezing on auscultation R06.2 and BMI 45.0-49.9, adult Z68.42 [facility] [address] [address] Jun, [facility] [address] [place] [id number] [place] [address] Jun, Primary osteoarthritis of both knees M17.0 and Chronic pain syndrome G89.4 [facility] [id number] [place] [address] May, [facility] [address] [place] [id number] [place] [address] May, BMI 45.0-49.9, adult Z68.42 ; Mood disorder F39 and Posttraumatic stress disorder F43.10 [facility] [address] [place] [id number] [place] [address] May, [facility] [address] [place] [id number] [place] [address] May, Primary osteoarthritis of both knees M17.0 and Chronic pain syndrome G89.4 [facility] [address] [place] [id number] [place] [address] May, Mood disorder F39 [facility] [address] [place] [id number] [place] [address] Apr, Type 2 diabetes mellitus with diabetic polyneuropathy E11.42 [facility] [id number] [place] [address] Apr, [facility] [address] [place] [id number] [place] [address] Apr, Primary osteoarthritis of both knees M17.0 and Chronic pain syndrome G89.4 [facility] [id number] [place] [address] Apr, Mood disorder F39 [facility] [id number] [place] [address] Mar, Mood disorder F39 and Posttraumatic stress disorder F43.10 [facility] [address] [place] [id number] [place] [address] Mar, Primary osteoarthritis of both knees M17.0 and Chronic pain syndrome G89.4 [facility] [address] [place] [id number] [place] [address] Feb, Primary osteoarthritis of both knees M17.0 and Chronic pain syndrome G89.4 [facility] [address] [place] [id number] [place] [address] Feb, Mood disorder F39 [place] [address] [place] [id number] [place] [address] Jan, Type 2 diabetes mellitus with diabetic polyneuropathy E11.42 ; Primary osteoarthritis of both knees M17.0 ; Mood disorder F39 ; Obesity, morbid, BMI 40.0-49.9 E66.01 ; Chronic prescription opiate use Z79.891 ; Acute suppurative otitis media of both ears without spontaneous rupture of tympanic membranes, recurrence not specified H66.003 and BMI 45.0-49.9, adult Z68.42 [place] [address] [place] [id number] [place] [address] Jan, Primary osteoarthritis of both knees M17.0 and Chronic pain syndrome G89.4 [place] [address] [place] [id number] [place] [address] Dec, Mood disorder F39 and Posttraumatic stress disorder F43.10 [place] [address] [place] [id number] [place] [address] Dec, Primary osteoarthritis of both knees M17.0 and Chronic pain syndrome G89.4 [facility] [address] [place] [id number] [place] [address] 18 Nov, 2016 Chronic pain syndrome G89.4 [facility] [address] [place] [id number] [place] [address] 15 Nov, 2016 Primary osteoarthritis of both knees M17.0 and Chronic pain syndrome G89.4 [place] [address] [place] [id number] [place] [address] 13 Nov, 2016 Type 2 diabetes mellitus with diabetic polyneuropathy E11.42 and Chronic pain syndrome G89.4 [facility] [address] [place] [id number] [place] [address] 12 Nov, 2016 Posttraumatic stress disorder F43.10 and Mood disorder F39 [facility] [address] [place] [id number] [place] [address] Oct, Chronic pain syndrome G89.4 [facility] [address] [place] [id number] [place] [address] Oct, Type 2 diabetes mellitus with diabetic polyneuropathy E11.42 ; BMI 45.0-49.9, adult Z68.42 ; Primary osteoarthritis of both knees M17.0 and Skin lesion L98.9 [facility] [address] [place] [id number] [place] [address] Oct, Chronic pain syndrome G89.4 [facility] [address] [place] [id number] [place] [address] Sep, Chronic pain syndrome G89.4 [facility] [address] [place] [id number] [place] [address] Sep, [facility] [address] [place] [id number] [place] [address] Sep, Chronic pain syndrome G89.4 [facility] [address] [place] [id number] [place] [address] Aug, Chronic pain syndrome G89.4 [facility] [address] [place] [id number] [place] [address] Aug, [facility] [address] [place] [id number] [place] [address] Aug, Macrocytosis D75.89 and Pure hypercholesterolemia E78.0 [facility] [address] [place] [id number] [place] [address] Aug, Pure hypercholesterolemia E78.0 [place] [address], [place] [address] 08 Aug, 2016 Macrocytosis D75.89 [place] [address] [place] [id number] [place] [address] Aug, Pure hypercholesterolemia E78.0 ; Type 2 diabetes mellitus with diabetic polyneuropathy E11.42 ; MITCHELL treated with BiPAP G47.33 and Chronic pain syndrome G89.4 [place] [address] [place] [id number] [place] [address] Aug, [place] [address] [place] [id number] [place] [address] Aug, Hemorrhoids, unspecified hemorrhoid type K64.9 [place] [address] [place] [id number] [place] [address] Aug, Chronic pain syndrome G89.4 ; Type 2 diabetes mellitus with diabetic polyneuropathy E11.42 ; Hemorrhoids, unspecified hemorrhoid type K64.9 ; Tobacco abuse Z72.0 and Primary osteoarthritis of both knees M17.0 [place] [address] [place] [id number] [place] [address] July, Chronic pain syndrome G89.4 [place] [address] [place] [id number] [place] [address] July, [place] [id number] [place] [address] Jun, Chronic pain syndrome G89.4 [place] [id number] [place] [address] Jun, Chronic pain syndrome G89.4 [place] [address] [place] [id number] [place] [address] Jun, Severe major depression with psychotic features F32.3 and Posttraumatic stress disorder F43.10 [place] [address] [place] [id number] [place] [address] Jun, Chronic pain syndrome G89.4 [facility] [id number] [place] [address] Jun, [facility] [address] [place] [id number] [place] [address] May, Chronic pain syndrome G89.4 [facility] [address] [place] [id number] [place] [address] May, Tobacco abuse Z72.0 [facility] [address] [place] [id number] [place] [address] May, [facility] [address] [place] [id number] [place] [address] Apr, Chronic pain syndrome G89.4 [facility] [address] [place] [id number] [place] [address] Apr, [facility] [address] [place] [id number] [place] [address] Apr, Right foot pain M79.671 [facility] [address] [place] [id number] [place] [address] Mar, Type 2 diabetes mellitus with diabetic polyneuropathy E11.42 ; MITCHELL treated with BiPAP G47.33 ; Pure hypercholesterolemia E78.0 ; Chronic pain syndrome G89.4 ; Tobacco abuse Z72.0 and Obesity, morbid, BMI 40.0-49.9 E66.01 [facility] [address] [address] Mar, [facility] [address] [place] [id number] [place] [address] Mar, [facility] [address] [place] [id number] [place] [address] Mar, [facility] [id number] [place] [address] Mar, [facility] [address] [place] [id number] [place] [address] Mar, [facility] [address], [place] [address] Mar, Severe major depression with psychotic features F32.3 and Posttraumatic stress disorder F43.10 [facility] [address] [address] Mar, [facility] [id number] [place] [address] Feb, [facility] [address] [address] Feb, [facility] [address] [place] [id number] [place] [address] Jan, [facility] [id number] [place] [address] Jan, [facility] [address] [place] [id number] [place] [address] Dec, Posttraumatic stress disorder F43.10 and Severe major depression with psychotic features F32.3 [facility] [id number] [place] [address] Dec, Type 2 diabetes mellitus with diabetic polyneuropathy E11.42 ; Chronic pain syndrome G89.4 and Acute right-sided low back pain with right-sided sciatica M54.41 [facility] [address], [place] [address] Dec, [facility] [address], [place] [address] Dec, [facility] [address], [place] [address] Nov, [facility] [address], [place] [address] Nov, [facility] [address], [place] [address] Nov, [facility] [address], [place] [address] Oct, [facility] [address] [place] [id number] [place] [address] Oct, [facility] [address] [place] [id number] [place] [address] Sep, Dental examination Z01.20 [facility] [address] [place] [id number] [place] [address] Sep, [facility] [address] [place] [id number] [place] [address] Sep, Type 2 diabetes mellitus with diabetic polyneuropathy E11.42 ; Chronic pain syndrome G89.4 ; Chronic prescription opiate use Z79.891 ; Injury of right index finger, sequela S69.91XS and Anejaculation N50.8 [facility] [address] [place] [id number] [place] [address] Aug, [facility] [address] [place] [id number] [place] [address] Aug, [facility] [address] [place] [id number] [place] [address] Aug, Cellulitis of finger of right hand L03.011 [facility] [id number] [place] [address] July, [facility] [address] [place] [id number] [place] [address] July, [facility] [id number] [place] [address] Jun, Onychomycosis B35.1 [facility] [address] [place] [id number] [place] [address] Jun, Severe major depression with psychotic features F32.3 and Posttraumatic stress disorder F43.10 [facility] [address] [place] [id number] [place] [address] Jun, [facility] [address], [place] [address] Jun, [facility] [id number] [place] [address] Jun, [facility] [id number] [place] [address] May, Type 2 diabetes mellitus with diabetic polyneuropathy E11.42 [place] [address] [place] [id number] [place] [address] May, Type 2 diabetes mellitus with diabetic polyneuropathy E11.42 and Urinary hesitancy R39.11 [place] [address] [place] [id number] [place] [address] May, Type 2 diabetes mellitus with diabetic polyneuropathy E11.42 ; Left hip pain M25.552 and Benign prostatic hyperplasia with lower urinary tract symptoms, unspecified morphology N40.1 [place] [address], [place] [address] May, [place] [address] [place] [id number] [place] [address] Apr, Severe major depression with psychotic features F32.3 and Posttraumatic stress disorder F43.10 [place] [address], [place] [address] Apr, [place] [address], [place] [address] Mar, [facility] [id number] [place] [address] Mar, Dysuria R30.0 and Urinary hesitancy R39.11 [place] [address], [place] [address] Mar, Onychomycosis B35.1 [place] [address] [place] [id number] [place] [address] Mar, [facility] [address], [place] [address] Feb, [facility] [id number] [place] [address] Jan, [facility] [address], [place] [address] Jan, Posttraumatic stress disorder F43.10 and Severe major depression with psychotic features F32.3 [facility] [address], [place] [address] Jan, [facility] [address] [place] [id number] [place] [address] Jan, Chronic pain syndrome G89.4 ; Type 2 diabetes mellitus with diabetic polyneuropathy E11.42 ; Decreased pedal pulses R09.89 and Paresthesia of both hands R20.2 [facility] [address] [place] [address] Dec, Posttraumatic stress disorder F43.10 and Severe major depression with psychotic features F32.3 [facility] [id number] [place] [address] Dec, [facility] [address], [place] [address] Dec, [facility] [address], [place] [address] Dec, Onychomycosis B35.1 [facility] [address], [place] [address] Dec, [facility] [address] [place] [id number] [place] [address] Dec, [facility] [address], [place] [address] Nov, [facility] [id number] [place] [address] Oct, Depression, major, recurrent, moderate 296.32 and Posttraumatic stress disorder 309.81 [place] [id number] [place] [address] Oct, [facility] [address] [place] [id number] [place] [address] Oct, [place] [address] [place] [id number] [place] [address] Oct, [place] [address] [place] [id number] [place] [address] Sep, Posttraumatic stress disorder 309.81 and Depression, major, recurrent, moderate 296.32 [place] [id number] [place] [address] Sep, [address] [address] Sep, Chronic airway obstruction, not elsewhere classified [address] [place] [id number] [place] [address] Sep, Onychomycosis 110.1 and DM neuro manif type II 250.60 [place] [id number] [place] [address] Sep, Chronic pain 338.29 ; Chronic airway obstruction, not elsewhere classified 496 ; Osteoarthritis of knees, bilateral 715.96 and On potassium wasting diuretic therapy V58.69 [place] [address] [place] [id number] [place] [address] Sep, Insect bites 919.4 ; Sinusitis 473.9 and GERD (gastroesophageal reflux disease) 530.81 [place] [id number] [place] [address] Aug, Depression, major, recurrent, moderate 296.32 and Posttraumatic stress disorder 309.81 [place] [id number] [place] [address] Aug, [address] [id number] [place] [address] Aug, [facility] [address] [id number] [place] [address] Aug, [facility] [address] [facility] [id number] [place] [address] July, Major depressive disorder, recurrent episode, moderate 296.32 and Posttraumatic stress disorder 309.81 [facility] [address] [id number] [place] [address] July, [facility] [address] [id number] [place] [address] July, [facility] [address] [facility] [id number] [place] [address] July, [facility] [address] [facility] [id number] [place] [address] July, [facility] [address] [facility] [id number] [place] [address] Jun, [facility] [address] [id number] [place] [address] Jun, [facility] [address] [facility] [id number] [place] [address] May, [facility] [address] [id number] [address] May, [facility] [place] [facility] [address] [id number], [place] [address] May, [facility] [place] [facility] [address] [id number] [place] [address] May, [facility] [place] [facility] [address] [id number] [place] [address] May, [facility] [place] [facility] [address] [id number] [place] [address] May, [facility] [address] [id number] [place] [address] May, [facility] [place] [facility] [address] [id number] [place] [address] May, [facility] [place] [facility] [address] [id number] [place] [address] May, [facility] [place] [facility] [address] [id number] [place] [address] Apr, 2014 [facility] [place] [facility] [address] [id number] [place] [address] Apr, 2014 [facility] [place] [facility] [address] [id number] [place] [address] Apr, [facility] [place] [facility] [address] [facility] [id number] [place] [address] Apr, 2014 [facility] [place] [facility] [address] [id number] [place] [address] Apr, [facility] [place] [facility] [address] [id number] [place] [address] Apr, [facility] [place] [facility] [address] [facility] [id number] [place] [address] Apr, [facility] [place] [facility] [address] [facility] [id number] [place] [address] Apr, [facility] [place] [facility] [address] [facility] [id number], [place] [address] Apr, [facility] [place] [facility] [address] [id number] [place] [address] Mar, [facility] [place] [facility] [address] [id number] [place] [address] Mar, [facility] [place] [facility] [address] [id number] [place] [address] Mar, [facility] [place] [facility] [address] [facility] [id number], [place] [address] Mar, [facility] [place] [facility] [address] [id number] [place] [address] 15 Mar, 2014 [facility] [place] [facility] [address] [id number] [place] [address] 15 Mar, 2014 [facility] [place] [facility] [address] [id number] [place] [address] 15 Mar, 2014 [facility] [place] [facility] [address] [id number] [place] [address] 15 Mar, 2014 [facility] [place] [facility] [address] [id number] [place] [address] 15 Mar, 2014 [facility] [place] [facility] [address] [id number] [place] [address] 15 Mar, 2014 [facility] [place] [facility] [address] [id number] [place] [address] 14 Mar, 2014 [facility] [place] [facility] [address] [id number] [place] [address] 14 Mar, 2014 [facility] [place] [facility] [address] [id number] [place] [address] 14 Mar, 2014 [facility] [place] [facility] [address] [id number] [place] [address] 14 Mar, 2014 [facility] [place] [facility] [address] [id number], [place] [address] Mar, [facility] [place] [facility] [address] [id number], [place] [address] 14 Mar, 2014 [facility] [place] [facility] [address] [id number] [place] [address] Mar, [facility] [place] [facility] [address] [id number] [place] [address] 09 Mar, 2014 [facility] [place] [facility] [address] [id number] [place] [address] 16 Feb, 2014 [facility] [place] [facility] [address] [id number] [place] [address] 16 Feb, 2014 [facility] [place] [facility] [address] [id number] [place] [address] 15 Feb, 2014 [facility] [place] [facility] [address] [id number] [place] [address] 15 Feb, 2014 [facility] [place] [facility] [address] [id number] [place] [address] 15 Feb, 2014 [facility] [place] [facility] [address] [id number] [place] [address] 15 Feb, 2014 [facility] [place] [facility] [address] [id number] [place] [address] Jan, [facility] [place] [facility] [address] [id number] [place] [address] Jan, [facility] [place] [facility] [address] [id number] [place] [address] Jan, [facility] [place] [facility] [address] [id number] [place] [address] Jan, [facility] [place] [facility] [address] [id number] [place] [address] Jan, [facility] [place] [facility] [address] [id number] [place] [address] Jan, [facility] [place] [facility] [address] [id number] [place] [address] Jan, [facility] [place] [facility] [address] [id number] [place] [address] Jan, [facility] [place] [facility] [address] [id number] [place] [address] Jan, [facility] [place] [facility] [address] [id number] [place] [address] Jan, [facility] [place] [facility] [address] [id number] [place] [address] Dec, [facility] [place] [facility] [address] [id number] [place] [address] Dec, [facility] [place] [facility] [address] [id number] [place] [address] Dec, [facility] [place] [facility] [address] [id number] [place] [address] Dec, [facility] [place] [facility] [address] [id number] [place] [address] Nov, 2013 [facility] [place] [facility] [address] [id number] [place] [address] Nov, [facility] [place] [facility] [address] [id number] [place] [address] Nov, [facility] [place] [facility] [address] [id number] [place] [address] Nov, [facility] [place] [facility] [address] [id number] [place] [address] Nov, [facility] [place] [facility] [address] [id number] [place] [address] Nov, [facility] [place] [facility] [address] [id number] [place] [address] Oct, [facility] [place] [facility] [address] [id number] [place] [address] Oct, [facility] [place] [facility] [address] [id number] [place] [address] Oct, [facility] [place] [facility] [address] [id number] [place] [address] Oct, [facility] [place] [facility] [address] [id number] [place] [address] Sep, [facility] [place] [facility] [address] [id number] [place] [address] Sep, [facility] [place] [facility] [address] [id number] [place] [address] Sep, [facility] [place] [facility] [address] [id number] [place] [address] Sep, [facility] [place] [facility] [address] [id number] [place] [address] Sep, [facility] [place] [facility] [address] [id number] [place] [address] Sep, [facility] [place] [facility] [address] [id number] [place] [address] July, [facility] [place] [facility] [address] [id number] [place] [address] July, [facility] [place] [facility] [address] [id number] [place] [address] July, [facility] [place] [facility] [address] [id number] [place] [address] July, [facility] [place] [facility] [address] [id number] [place] [address] Jun, [facility] [place] [facility] [address] [id number] [place] [address] Jun, [facility] [place] [facility] [address] [id number] [place] [address] Jun, [facility] [place] [facility] [address] [id number] [place] [address] Jun, [facility] [place] [facility] [address] [id number] [place] [address] Jun, [facility] [place] [facility] [address] [id number] [place] [address] Jun, [facility] [place] [facility] [address] [id number] [place] [address] May, [facility] [place] [facility] [address] [id number] [place] [address] May, [facility] [place] [facility] [address] [id number] [place] [address] Apr, [facility] [place] [facility] [address] [id number] [place] [address] Apr, [facility] [place] [facility] [address] [id number] [place] [address] Apr, [facility] [place] [facility] [address] [id number] [place] [address] Apr, [facility] [place] [facility] [address] [id number] [place] [address] Apr, [facility] [place] [facility] [address] [id number] [place] [address] Apr, [facility] [place] [facility] [address] [id number] [place] [address] Apr, [facility] [place] [facility] [address] [id number] [place] [address] Mar, [facility] [place] [facility] [address] [id number] [place] [address] Mar, [facility] [place] [facility] [address] [id number] [place] [address] Mar, [facility] [place] [facility] [address] [id number], [place] [address] Mar, [facility] [place] [facility] [address] [id number], [place] [address] Mar, [facility] [place] [facility] [address] [id number] [place] [address] Mar, [facility] [place] [facility] [address] [id number], [place] [address] Mar, [facility] [place] [facility] [address] [id number], [place] [address] Mar, [facility] [place] [facility] [address] [id number], [place] [address] Feb, [facility] [address] [id number], [place] [address] Feb, [facility] [place] [facility] [address] [id number], [place] [address] Feb, [facility] [address] [id number], [place] [address] Feb, [facility] [place] [facility] [address] [id number], [place] [address] Feb, [facility] [address] [id number], [place] [address] Feb, [facility] [place] [facility] [address] [id number], [place] [address] Feb, [facility] [address] [id number], [place] [address] Jan, [facility] [place] [facility] [address] [id number], [place] [address] Jan, [facility] [address] [id number], [place] [address] Jan, [facility] [place] [facility] [address] [id number], [place] [address] Jan, [facility] [place] [facility] [address] [id number], [place] [address] Jan, [facility] [place] [facility] [address] [id number], [place] [address] Jan, [facility] [place] [facility] [address] [id number] [id number] Jan, [facility] [place] [facility] [address] [id number][place] [id number] Jan, [facility] [place] [facility] [address] [id number], [place] [address] Dec, [facility] [place] [facility] [address] [id number] [place] [address] Dec, 2012 [facility] [place] [facility] [address] [id number] [place] [address] Dec, 2012 [facility] [place] [facility] [address] [id number] [place] [address] Dec, 2012 [facility] [place] [facility] [address] [id number] [place] [address] Dec, 2012 [facility] [place] [facility] [address] [id number] [place] [address] Dec, 2012 [facility] [place] [facility] [address] [id number] [place] [address] Dec, 2012 [facility] [place] [facility] [address] [id number] [place] [address] 16 Dec, 2012 [facility] [place] [facility] [address] [id number] [place] [address] 16 Dec, 2012 [facility] [place] [facility] [address] [id number] [place] [address] 04 Dec, 2012 [facility] [place] [facility] [address] [id number] [id number] 27 Nov, 2012 [facility] [place] [facility] [address] [id number] [id number] 27 Nov, 2012 [facility] [place] [facility] [address] [id number] [place] [address] 24 Sep, 2012 [facility] [place] [facility] [address] [id number], [place] [address] 20 Sep, 2012 [facility] [place] [facility] [address] [id number] [place] [address] 19 Sep, 2012 [facility] [place] [facility] [address] [id number] [place] [address] 13 Nov, 2012 [facility] [place] [facility] [address] [id number], [place] [address] 10 Nov, 2012 [facility] [place] [facility] [address] [id number] [place] [address] Nov, [facility] [place] [facility] [address] [id number] [place] [address] Oct, [facility] [place] [facility] [address] [id number] [place] [address] Oct, [facility] [place] [facility] [address] [id number] [place] [address] Oct, [facility] [address] [id number] [place] [address] Sep, [facility] [place] [facility] [address] [id number] [place] [address] Sep, [facility] [address] [id number] [place] [address] Sep, [facility] [place] [facility] [address] [id number] [place] [address] Sep, [facility] [place] [facility] [address] [id number] [place] [address] Sep, [facility] [place] [facility] [address] [id number] [place] [address] Aug, [facility] [place] [facility] [address] [id number] [place] [address] Aug, [facility] [place] [facility] [address] [id number] [place] [address] Aug, [facility] [place] [facility] [address] [id number] [place] [address] Aug, [facility] [place] [facility] [address] [id number] [place] [address] Aug, [facility] [place] [facility] [address] [id number] [place] [address] Aug, [facility] [place] [facility] [address] [id number] [place] [address] July, [facility] [address] [id number] [place] [address] July, [facility] [address] [id number] [place] [address] July, [facility] [address] [id number] [place] [address] July, [facility] [address] [id number] [place] [address] July, [facility] [address] [id number] [place] [address] July, [facility] [address] [id number] [place] [address] Jun, [facility] [address] [id number] [place] [address] Jun, [facility] [address] [id number] [place] [address] Jun, [facility] [address] [id number] [place] [address] Jun, [facility] [address] [id number] [place] [address] May, [facility] [address] [id number] [place] [address] May, [facility] [place] [facility] [address] [id number] [place] [address] May, [facility] [place] [facility] [address] [id number] [place] [address] Apr, [facility] [place] [facility] [address] [id number] [place] [address] Mar, [facility] [place] [facility] [address] [id number] [place] [address] Mar, [facility] [place] [facility] [address] [id number] [place] [address] 17 Mar, 2012 [facility] [address] [id number] [place] [address] 16 Mar, 2012 [facility] [place] [facility] [address] [id number] [place] [address] 15 Mar, 2012 [facility] [address] [id number] [place] [address] 31 Feb, 2012 [facility] [address] [id number] [place] [address] Feb, [facility] [address] [id number] [place] [address] Feb, [facility] [address] [id number] [place] [address] 17 Feb, 2012 [facility] [address] [id number] [place] [address] Jan, [facility] [address] [id number] [place] [address] Jan, [facility] [address] [id number] [place] [address] Jan, [facility] [address] [id number] [place] [address] Jan, [facility] [place] [facility] [address] [id number] [place] [address] Dec, [facility] [address] [id number] [place] [address] Dec, [facility] [place] [facility] [address] [id number] [place] [address] Nov, [facility] [place] [facility] [address] [id number] [place] [address] Oct, [facility] [place] [facility] [address] [id number] [place] [address] Oct, [facility] [address] [id number] [place] [address] Oct, [facility] [address] [id number] [place] [address] Oct, [facility] [address] [id number] [place] [address] Oct, [facility] [address] [id number] [place] [address] Sep, [facility] [address] [id number] [place] [address] Sep, [facility] [address] [id number] [place] [address] Aug, [address] [id number] Aug, [facility] [address] [id number] [place] [address] Aug, [facility] [address] [id number] [place] [address] July, [facility] [address] [id number] [place] [address] July, [facility] [address] [id number] [place] [address] Jun, [facility] [address] [id number] [place] [address] Jun, [facility] [address] [id number] [place] [address] Jun, [facility] [place] [facility] [address] [id number] [place] [address] Jun, [facility] [address] [id number] [place] [address] Apr, [facility] [address] [id number] [place] [address] 15 Apr, 2011 [facility] [place] [facility] [address] [id number] [place] [address] Apr, [facility] [place] [facility] [address] [id number] [place] [address] Mar, [facility] [place] [facility] [address] [id number] [place] [address] Mar, [facility] [place] [facility] [address] [id number] [place] [address] Mar, [facility] [place] [facility] [address] [id number] [place] [address] Mar, [facility] [place] [facility] [address] [id number] [place] [address] Mar, [facility] [address] [id number] [place] [address] Jan, [facility] [place] [facility] [address] [id number] [place] [address] Jan, [facility] [place] [facility] [address] [id number] [place] [address] Jan, [facility] [place] [facility] [address] [id number] [place] [address] Mar, [facility] [place] [facility] [address] [id number] [place] [address] Mar, [facility] [place] [facility] [address] [id number] [place] [address] Feb, [facility] [place] [facility] [address] [id number] [place] [address] Feb, [facility] [place] [facility] [address] [id number] [place] [address] Feb, [facility] [place] [facility] [address] [id number] [place] [address] Jan, [facility] [place] [facility] [id number], [place] [address] 17 Jan, 2010 [facility] [id number], [place] [address] Dec, [facility] [id number], [place] [address] Dec, [facility] [id number] [place] [address] May, [facility] [id number] [place] [address] Apr, [facility] [id number] [place] [address] Feb, [facility] [id number] [place] [address] Feb, [facility] [id number] [place] [address] Jan, [facility] [id number] [place] [address] Jan, [facility] [id number] [place] [address] Jan, [facility] [id number], [place] [address] Jan, [facility] [id number], [place] [address] Jan, IMMUNIZATIONS No Known Immunizations SOCIAL HISTORY Never Assessed REASON FOR VISIT Controlled Medication Refill PLAN OF CARE VITAL SIGNS MEDICATIONS Medication Instructions Dosage Frequency Start Date End Date Duration Status MS Contin 30 MG Orally every 12 hrs 1 tablet 12h Feb, 28 days Active Hydrocodone-Acetaminophen 5-325 MG Orally every 6 hrs 1 tablet as needed 6h Feb, 28 days Active RESULTS No Results PROCEDURES [...]
--- OUTSIDE RECORDS SUMMARY | 2018-10-04 07:03 | XMS REPORT ---
Author Author ESTHER CHAVEZ [employer] Address Unknown Phone Unavailable Care Team Providers Care Airport Engineer Name Role Phone ESTHER CHAVEZ CP Unavailable Allergies, Adverse Reactions, Alerts Substance Reaction Event Type Trazodone HCl nausea and vomiting Drug Allergy Chantix nausea Drug Allergy Problems Problem Type Condition Code Onset Dates Condition Status Problem Non-ischemic cardiomyopathy I42.9 Active Problem Gastroesophageal reflux disease, esophagitis presence not specified K21.9 Active Problem History of DVT (deep vein thrombosis) Z86.718 Active Problem Chronic prescription opiate use Z79.891 Active Problem Type 2 diabetes mellitus with diabetic polyneuropathy E11.42 Active Problem Acute right-sided low back pain with right-sided sciatica M54.41 Active Problem Chronic pain syndrome G89.4 Active Problem PTSD (post-traumatic stress disorder) F43.10 Active Problem Major depressive disorder, recurrent episode, unspecified severity F33.9 Active Problem Chronic obstructive pulmonary disease, unspecified COPD type J44.9 Active Assessment Chronic pain syndrome G89.4 Active Assessment Type 2 diabetes mellitus with diabetic polyneuropathy E11.42 Active Assessment Acute right-sided low back pain with right-sided sciatica M54.41 Active Problem Essential hypertension I10 Active Problem History of weight loss surgery Z98.84 Active Problem Nocturnal hypoxia G47.34 Active Problem [place] treated with BiPAP G47.33 Active Problem Pure hypercholesterolemia E78.0 Active Problem Chronic systolic (congestive) heart failure I50.22 Active Medications Medication Code System Code Instructions Start Date End Date Status Dosage Metformin HCl [facility] [address]-56 500 MG Orally Twice a day 1 tablet with meals Pen Chappells [facility] [address]-71 31G X 6 MM Once a day June 10, 2015 as directed Pataday [facility] [address]-94 0.2 % Ophthalmic 2 times a day Apr 10, 2015 1 drop to affected eyes Hydrocodone-Acetaminophen [facility] 92196729368 5-325 MG TAKE ONE TABLET BY MOUTH EVERY 6 HOURS NEEDED FOR PAIN (MUST HAVE APPOINTMENT BEFORE NEXT REFILL DUE!!!) HydrOXYzine Pamoate [facility] [address]-26 25 MG Orally every 6 hrs May 07, 2015 1 capsule as needed Prozac [facility] 89354712836 40 MG Orally Once a day 1 capsule in the morning MS Contin [facility] [address]-98 15 MG Orally Once a day in the am- appt needed before due for next refill Oct 22, 2014 1 tablet Mirtazapine [facility] [address]-47 30 MG Orally Once a day June 25, 2015 1 tablet before bedtime in the evening Ibuprofen [facility] [address]-87 800 MG Orally Three times a day Dec 23, 2015 Feb 21, 2016 1 tablet as needed Klonopin [facility] 32997520261 1 MG TAKE ONE TABLET BY MOUTH TWICE DAILY Nexium [facility] 44441882554 40 MG Orally Once a day qHS 1 capsule Pantoprazole Sodium [facility] 81299986837 40 MG Orally Once a day 1 tablet Gabapentin [facility] [address]-80 600 MG Orally 3 times a day 2 tablets Cyclobenzaprine HCl [facility] 74324200189 10 MG TAKE ONE TABLET BY MOUTH THREE TIMES DAILY NEEDED Liraglutide [facility] [address]-54 18 MG/3ML Subcutaneous Once a day for one week, then increase to 1.2 mg SQ daily June 04, 2015 0.6 mg Ventolin HFA [facility] [address]-04 108 (90 Base) MCG/ACT Inhalation every 4 hrs Apr 10, 2015 2 puffs as needed MS Contin [facility] [address]-75 30 MG Orally Once a day in the evening- appt needed before due for next refill Oct 22, 2014 1 tablet Invega [facility] 70395806611 6 MG Orally Once a day 2 tablets Procedures Procedure Coding System Code Date [facility] VISIT ESTABLISHED PATIENT CPT-4 G0467 Dec 23, 2015 Office Visit, Est Pt., Level 3 CPT-4 36148 Dec 23, 2015 GLYCATED HEMOGLOBIN TEST CPT-4 70866 Dec 23, 2015 Vital Signs Date/Time: Dec 23, 2015 Cardiac Monitoring Heart Rate 72 bpm Weight 289.8 lbs Height 66 in BMI 46.77 Index Blood Pressure Diastolic 82 mmHg Blood Pressure Systolic 136 mmHg Results No Known Results Summary Purpose eClinicalWorks Submission
--- OUTSIDE RECORDS SUMMARY | 2018-10-04 07:04 | XMS REPORT ---
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 Role Phone KATHYBRIAN VILLEGASY Unavailable PROBLEMS Type Condition ICD9-CM Code ECQ30-OF Code Onset Dates Condition Status SNOMED Code Problem Primary osteoarthritis of both knees M17.0 Active 945935969 Problem MITCHELL treated with BiPAP G47.33 Active 51144641 Problem Nocturnal hypoxia G47.34 Active 293248298 Problem Chronic prescription opiate use Z79.891 Active 162316567 Problem Chronic systolic (congestive) heart failure I50.22 Active 729051837 Problem Acute right-sided low back pain with right-sided sciatica M54.41 Active 36597696 Problem Posttraumatic stress disorder F43.10 Active 96054518 Problem Severe major depression with psychotic features F32.3 Active 95652034 Problem Mood disorder F39 Active 76870466 Problem Mild episode of recurrent major depressive disorder F33.0 Active 699935748 Problem Type 2 diabetes mellitus with diabetic polyneuropathy E11.42 Active 007604397 Problem Pure hypercholesterolemia E78.0 Active 224760358 Problem Chronic pain syndrome G89.4 Active 752301397 Problem Tobacco abuse Z72.0 Active 848488468 Problem Obesity, morbid, BMI 40.0-49.9 E66.01 Active 565132884 Problem BMI 45.0-49.9, adult Z68.42 Active 984998863 Problem Macrocytosis D75.89 Active 628428274 Problem Major depressive disorder, recurrent episode, unspecified severity F33.9 Active 34545431 Problem Gastroesophageal reflux disease, esophagitis presence not specified K21.9 Active 668514846 Problem History of DVT (deep vein thrombosis) Z86.718 Active 098850875 Problem Essential hypertension I10 Active 79341890 Problem History of weight loss surgery Z98.84 Active 859040991 Problem PTSD (post-traumatic stress disorder) F43.10 Active 15719195 Problem Non-ischemic cardiomyopathy I42.9 Active 62491132 Problem Chronic obstructive pulmonary disease, unspecified COPD type J44.9 Active 00984324 ALLERGIES No Information ENCOUNTERS Encounter Location Date Diagnosis [facility], [place] [id number] [address] Sep, [facility], [place] [id number] [address] July, [facility], [place] [id number] [place] [address] July, Medicare annual wellness visit, initial Z00.00 [facility] [id number] [place] [address] 09 Jun, 2017 Infection of right ear H66.91 ; Wheezing on auscultation R06.2 and BMI 45.0-49.9, adult Z68.42 [facility] [id number] [place] [address] Jun, [facility], [place] [id number] [place] [address] Jun, Primary osteoarthritis of both knees M17.0 and Chronic pain syndrome G89.4 [facility] [id number] [place] [address] May, [facility], [place] [address] [address] May, BMI 45.0-49.9, adult Z68.42 ; Mood disorder F39 and Posttraumatic stress disorder F43.10 [facility], [place] [address] [address] May, [facility] [id number] [place] [address] May, Primary osteoarthritis of both knees M17.0 and Chronic pain syndrome G89.4 [facility], [place] [address] [address] May, Mood disorder F39 [address] [address] Apr, Type 2 diabetes mellitus with diabetic polyneuropathy E11.42 [facility], [place] [address] [address] Apr, [facility], [place] [address] [address] Apr, Primary osteoarthritis of both knees M17.0 and Chronic pain syndrome G89.4 [facility], [place] [address] [place] [address] Apr, Mood disorder F39 [facility], [place] [address] [place] [address] Mar, Mood disorder F39 and Posttraumatic stress disorder F43.10 [facility], [place] [id number] [place] [address] Mar, Primary osteoarthritis of both knees M17.0 and Chronic pain syndrome G89.4 [facility], [place] [address] [address] Feb, Primary osteoarthritis of both knees M17.0 and Chronic pain syndrome G89.4 [facility], [place] [address] [address] Feb, Mood disorder F39 [facility], [place] [address] [address] Jan, Type 2 diabetes mellitus with diabetic polyneuropathy E11.42 ; Primary osteoarthritis of both knees M17.0 ; Mood disorder F39 ; Obesity, morbid, BMI 40.0-49.9 E66.01 ; Chronic prescription opiate use Z79.891 ; Acute suppurative otitis media of both ears without spontaneous rupture of tympanic membranes, recurrence not specified H66.003 and BMI 45.0-49.9, adult Z68.42 [facility], [place] [address] [address] Jan, Primary osteoarthritis of both knees M17.0 and Chronic pain syndrome G89.4 [facility], [place] [address] [address] Dec, Mood disorder F39 and Posttraumatic stress disorder F43.10 [facility], [place] [address] [address] 13 Dec, 2016 Primary osteoarthritis of both knees M17.0 and Chronic pain syndrome G89.4 [facility], [place] [id number] [place] [address] 18 Nov, 2016 Chronic pain syndrome G89.4 [facility], [place] [id number] [place] [address] 15 Nov, 2016 Primary osteoarthritis of both knees M17.0 and Chronic pain syndrome G89.4 [facility], [place] [id number] [place] [address] 13 Nov, 2016 Type 2 diabetes mellitus with diabetic polyneuropathy E11.42 and Chronic pain syndrome G89.4 [facility], [place] [id number] [place] [address] 12 Nov, 2016 Posttraumatic stress disorder F43.10 and Mood disorder F39 [facility], [place] [id number] [place] [address] Oct, Chronic pain syndrome G89.4 [facility], [place] [address] [place] [address] Oct, Type 2 diabetes mellitus with diabetic polyneuropathy E11.42 ; BMI 45.0-49.9, adult Z68.42 ; Primary osteoarthritis of both knees M17.0 and Skin lesion L98.9 [facility], [place] [id number] [place] [address] 09 Oct, 2016 Chronic pain syndrome G89.4 [facility], [place] [id number] [place] [address] Sep, Chronic pain syndrome G89.4 [facility], [place] [id number] [place] [address] Sep, [facility], [place] [id number] [place] [address] Sep, Chronic pain syndrome G89.4 [facility], [place] [id number] [place] [address] Aug, Chronic pain syndrome G89.4 [facility], [place] [address] [address] Aug, [facility] [id number] [place] [address] Aug, Macrocytosis D75.89 and Pure hypercholesterolemia E78.0 [facility] [id number] [place] [address] Aug, Pure hypercholesterolemia E78.0 [facility] [id number] [place] [address] Aug, Macrocytosis D75.89 [facility] [id number] [place] [address] Aug, Pure hypercholesterolemia E78.0 ; Type 2 diabetes mellitus with diabetic polyneuropathy E11.42 ; MITCHELL treated with BiPAP G47.33 and Chronic pain syndrome G89.4 [facility] [id number] [place] [address] Aug, [facility], [place] [id number] [place] [address] Aug, Hemorrhoids, unspecified hemorrhoid type K64.9 [facility], [place] [id number] [place] [address] Aug, Chronic pain syndrome G89.4 ; Type 2 diabetes mellitus with diabetic polyneuropathy E11.42 ; Hemorrhoids, unspecified hemorrhoid type K64.9 ; Tobacco abuse Z72.0 and Primary osteoarthritis of both knees M17.0 [facility], [place] [id number] [place] [address] July, Chronic pain syndrome G89.4 [facility], [place] [address] [place] [address] July, [facility], [place] [id number] [place] [address] Jun, Chronic pain syndrome G89.4 [facility], [place] [id number] [place] [address] Jun, Chronic pain syndrome G89.4 [facility], [place] [id number] [place] [address] Jun, Severe major depression with psychotic features F32.3 and Posttraumatic stress disorder F43.10 [facility], [place] [id number] [place] [address] Jun, Chronic pain syndrome G89.4 [facility], [place] [id number] [place] [address] Jun, [facility], [place] [id number] [place] [address] May, Chronic pain syndrome G89.4 [facility], [place] [id number] [place] [address] May, Tobacco abuse Z72.0 [facility], [place] [id number] [place] [address] May, [facility], [place] [id number] [place] [address] Apr, Chronic pain syndrome G89.4 [facility], [place] [id number] [place] [address] Apr, [facility], [place] [id number] [place] [address] Apr, Right foot pain M79.671 [facility], [place] [id number] [place] [address] Mar, Type 2 diabetes mellitus with diabetic polyneuropathy E11.42 ; MITCHELL treated with BiPAP G47.33 ; Pure hypercholesterolemia E78.0 ; Chronic pain syndrome G89.4 ; Tobacco abuse Z72.0 and Obesity, morbid, BMI 40.0-49.9 E66.01 [facility], [place] [id number] [place] [address] Mar, [facility], [place] [id number] [place] [address] Mar, [facility], [place] [id number] [place] [address] Mar, [facility], [place] [id number] [place] [address] Mar, [facility], [place] [id number] [place] [address] Mar, [facility], [place] [id number] [place] [address] Mar, Severe major depression with psychotic features F32.3 and Posttraumatic stress disorder F43.10 [facility], [place] [id number] [place] [address] Mar, [facility], [place] [id number] [place] [address] Feb, [facility], [place] [id number] [place] [address] Feb, [facility], [place] [id number] [place] [address] Jan, [facility], [place] [id number] [place] [address] Jan, [facility], [place] [id number] [place] [address] Dec, Posttraumatic stress disorder F43.10 and Severe major depression with psychotic features F32.3 [facility], [place] [id number] [place] [address] Dec, Type 2 diabetes mellitus with diabetic polyneuropathy E11.42 ; Chronic pain syndrome G89.4 and Acute right-sided low back pain with right-sided sciatica M54.41 [facility], [place] [address] [place] [address] Dec, [facility], [place] [id number] [place] [address] Dec, [facility], [place] [id number] [place] [address] Nov, [facility], [place] [id number] [place] [address] Nov, [facility], [place] [id number] [place] [address] Nov, [facility], [place] [id number] [place] [address] Oct, [facility], [place] [id number] [place] [address] Oct, [facility], [place] [id number] [place] [address] Sep, Dental examination Z01.20 [facility], [place] [id number] [place] [address] Sep, [facility], [place] [id number] [place] [address] Sep, Type 2 diabetes mellitus with diabetic polyneuropathy E11.42 ; Chronic pain syndrome G89.4 ; Chronic prescription opiate use Z79.891 ; Injury of right index finger, sequela S69.91XS and Anejaculation N50.8 [facility], [place] [id number] [place] [address] Aug, [facility], [place] [id number] [place] [address] Aug, [facility] [address] [address] Aug, Cellulitis of finger of right hand L03.011 [facility], [place] [address] [address] July, [facility], [place] [address] [address] July, [facility], [place] [id number] [place] [address] Jun, Onychomycosis B35.1 [facility], [place] [id number] [place] [address] Jun, Severe major depression with psychotic features F32.3 and Posttraumatic stress disorder F43.10 [facility], [place] [address] [address] Jun, [facility], [place] [id number] [place] [address] Jun, [facility], [place] [address] [address] Jun, [facility], [place] [address] [address] May, Type 2 diabetes mellitus with diabetic polyneuropathy E11.42 [facility], [place] [address] [address] May, Type 2 diabetes mellitus with diabetic polyneuropathy E11.42 and Urinary hesitancy R39.11 [facility], [place] [address] [address] May, Type 2 diabetes mellitus with diabetic polyneuropathy E11.42 ; Left hip pain M25.552 and Benign prostatic hyperplasia with lower urinary tract symptoms, unspecified morphology N40.1 [facility], [place] [address] [address] May, [facility], [place] [address] [address] Apr, Severe major depression with psychotic features F32.3 and Posttraumatic stress disorder F43.10 [facility], [place] [address] [place] [address] 08 Apr, 2015 [facility], [place] [address] [place] [address] Mar, [facility], [place] [id number] [place] [address] Mar, Dysuria R30.0 and Urinary hesitancy R39.11 [facility], [place] [id number] [place] [address] Mar, Onychomycosis B35.1 [facility], [place] [id number] [place] [address] Mar, [facility], [place] [id number] [place] [address] Feb, [facility], [place] [address] [place] [address] Jan, [facility], [place] [id number] [place] [address] Jan, Posttraumatic stress disorder F43.10 and Severe major depression with psychotic features F32.3 [facility], [place] [address] [place] [address] Jan, [facility], [place] [address] [place] [address] Jan, Chronic pain syndrome G89.4 ; Type 2 diabetes mellitus with diabetic polyneuropathy E11.42 ; Decreased pedal pulses R09.89 and Paresthesia of both hands R20.2 [facility], [place] [address] [address] 28 Dec, 2014 Posttraumatic stress disorder F43.10 and Severe major depression with psychotic features F32.3 [facility], [place] [address] [address] Dec, [facility], [place] [address] [place] [address] Dec, [facility], [place] [address] [address] Dec, Onychomycosis B35.1 [facility], [place] [id number] [place] [address] Dec, [facility], [place] [id number] [place] [address] Dec, [facility], [place] [id number] [place] [address] Nov, [facility], [place] [address] [place] [address] Oct, Depression, major, recurrent, moderate 296.32 and Posttraumatic stress disorder 309.81 [facility], [place] [address] [address] Oct, [facility], [place] [id number] [place] [address] Oct, [facility], [place] [address] [address] Oct, [facility], [place] [address] [place] [address] Sep, Posttraumatic stress disorder 309.81 and Depression, major, recurrent, moderate 296.32 [facility], [place] [address] [address] Sep, [facility], [place] [id number] [place] [address] Sep, Chronic airway obstruction, not elsewhere classified 496 [facility], [place] [address] [address] Sep, Onychomycosis 110.1 and DM neuro manif type II 250.60 [facility], [place] [id number] [place] [address] Sep, Chronic pain 338.29 ; Chronic airway obstruction, not elsewhere classified 496 ; Osteoarthritis of knees, bilateral 715.96 and On potassium wasting diuretic therapy V58.69 [facility], [place] [id number] [place] [address] Sep, Insect bites 919.4 ; Sinusitis 473.9 and GERD (gastroesophageal reflux disease) 530.81 [facility], [place] [id number] [place] [address] Aug, Depression, major, recurrent, moderate 296.32 and Posttraumatic stress disorder 309.81 [facility], [place] [id number] [place] [address] Aug, [facility], [place] [address] [address] Aug, [facility], [place] [id number] [place] [address] Aug, [facility], [place] [id number] [place] [address] July, Major depressive disorder, recurrent episode, moderate 296.32 and Posttraumatic stress disorder 309.81 [facility], [place] [id number] [place] [address] July, [facility], [place] [id number] [place] [address] July, [facility], [place] [id number] [place] [address] July, [facility], [place] [id number] [place] [address] July, [facility], [place] [id number] [place] [address] Jun, [facility], [place] [id number] [place] [address] 13 Jun, 2014 [facility] [place] [facility] [address] [id number] [place] [address] 20 May, 2014 [facility] [place] [facility] [address] [id number] [place] [address] 20 May, 2014 [facility] [place] [facility] [address] [facility] [id number] [place] [address] 18 May, 2014 [facility] [place] [facility] [address] [id number] [place] [address] 18 May, 2014 [facility] [place] [facility] [address] [id number] [place] [address] 18 May, 2014 [facility] [place] [facility] [address] [facility] [id number] [place] [address] 18 May, 2014 [facility] [place] [facility] [address] [facility] [id number] [place] [address] May, [facility] [place] [facility] [address] [facility] [id number] [place] [address] 04 May, 2014 [facility] [place] [facility] [address] [facility] [id number] [place] [address] May, [facility] [place] [facility] [address] [facility] [id number] [place] [address] Apr, 2014 [facility] [place] [facility] [address] [facility] [id number] [place] [address] Apr, 2014 [facility] [place] [facility] [address] [facility] [id number] [place] [address] Apr, 2014 [facility] [place] [facility] [address] [id number] [place] [address] Apr, 2014 [facility] [place] [facility] [address] [facility] [id number] [place] [address] Apr, 2014 [facility] [place] [facility] [address] [facility] [id number] [address] Apr, 2014 [facility] [place] [facility] [address] [id number] [place] [address] Apr, [facility] [place] [facility] [address] [id number] [place] [address] Apr, [facility] [place] [facility] [address] [id number] [place] [address] Apr, [facility] [place] [facility] [address] [id number] [place] [address] Mar, [facility] [place] [facility] [address] [id number] [place] [address] Mar, [facility] [place] [facility] [address] [id number] [place] [address] Mar, [facility] [place] [facility] [address] [id number] [place] [address] Mar, [facility] [place] [facility] [address] [id number] [place] [address] Mar, [facility] [place] [facility] [address] [id number] [place] [address] Mar, [facility] [facility] [address] [id number] [place] [address] Mar, [facility] [place] [facility] [address] [id number] [place] [address] Mar, [facility] [place] [facility] [address] [id number] [place] [address] Mar, [facility] [place] [facility] [address] [id number] [place] [address] Mar, [facility] [place] [facility] [address] [id number] [place] [address] 14 Mar, 2014 [facility] [place] [facility] [address] [id number] [place] [address] 14 Mar, 2014 [facility] [place] [facility] [address] [id number] [place] [address] 14 Mar, 2014 [facility] [place] [facility] [address] [id number] [place] [address] 14 Mar, 2014 [facility] [place] [facility] [address] [id number] [place] [address] 14 Mar, 2014 [facility] [place] [facility] [address] [facility] [id number] [place] [address] Mar, [facility] [place] [facility] [address] [id number] [place] [address] 09 Mar, 2014 [facility] [place] [facility] [address] [id number] [place] [address] Mar, [facility] [place] [facility] [address] [id number] [place] [address] 16 Feb, 2014 [facility] [place] [facility] [address] [facility] [id number] [place] [address] 16 Feb, 2014 [facility] [place] [facility] [address] [id number] [place] [address] 15 Feb, 2014 [facility] [place] [facility] [address] [id number] [place] [address] 15 Feb, 2014 [facility] [place] [facility] [address] [facility] [id number] [place] [address] 15 Feb, 2014 [facility] [place] [facility] [address] [id number] [place] [address] 15 Feb, 2014 [facility] [place] [facility] [address] [id number] [place] [address] Jan, [facility] [place] [facility] [address] [id number] [place] [address] Jan, [facility] [place] [facility] [address] [facility] [id number] [place] [address] 17 Jan, 2014 [facility] [place] [facility] [address] [facility] [id number] [place] [address] 17 Jan, 2014 [facility] [place] [facility] [address] [id number] [place] [address] Jan, [facility] [place] [facility] [address] [id number] [place] [address] Jan, [facility] [place] [facility] [address] [id number] [place] [address] Jan, [facility] [place] [facility] [address] [id number] [place] [address] Jan, [facility] [place] [facility] [address] [id number] [place] [address] Jan, [facility] [place] [facility] [address] [id number] [place] [address] Jan, [facility] [place] [facility] [address] [id number] [place] [address] Dec, [facility] [place] [facility] [address] [id number] [place] [address] Dec, [facility] [place] [facility] [address] [id number] [place] [address] Dec, [facility] [place] [facility] [address] [id number] [place] [address] Dec, [facility] [place] [facility] [address] [id number] [place] [address] 16 Nov, 2013 [facility] [place] [facility] [address] [id number] [place] [address] 16 Nov, 2013 [facility] [place] [facility] [address] [id number] [place] [address] 03 Sep, 2013 [facility] [place] [facility] [address] [id number] [place] [address] 03 Sep, 2013 [facility] [place] [facility] [address] [id number] [place] [address] 03 Sep, 2013 [facility] [place] [facility] [address] [id number] [place] [address] Nov, [facility] [place] [address] [id number] [place] [address] Oct, [facility] [place] [facility] [address] [id number] [place] [address] Oct, [facility] [place] [facility] [address] [id number] [place] [address] Oct, [facility] [place] [facility] [address] [id number] [place] [address] Oct, [facility] [place] [facility] [address] [id number] [place] [address] Sep, [facility] [place] [facility] [address] [id number] [place] [address] Sep, [facility] [place] [facility] [address] [id number] [place] [address] Sep, [facility] [place] [facility] [address] [id number] [place] [address] Sep, [facility] [place] [facility] [address] [id number] [place] [address] Sep, [facility] [place] [facility] [address] [id number] [place] [address] Sep, [facility] [place] [facility] [address] [id number] [place] [address] July, [facility] [place] [facility] [address] [id number] [place] [address] July, [facility] [place] [address] [id number] [place] [address] July, [facility] [place] [facility] [address] [id number] [place] [address] July, [facility] [address] [id number] [place] [address] Jun, [facility] [place] [facility] [address] [id number] [place] [address] Jun, [facility] [place] [facility] [address] [id number] [place] [address] Jun, [facility] [place] [address] [id number] [place] [address] Jun, [facility] [address] [id number] [place] [address] Jun, [facility] [address] [id number] [place] [address] Jun, [facility] [address] [id number] [place] [address] May, [facility] [address] [facility] [id number] [place] [address] May, [facility] [address] [facility] [id number] [place] [address] Apr, [facility] [address] [id number] [place] [address] Apr, [facility] [address] [id number] [place] [address] Apr, [facility] [address] [facility] [id number] [place] [address] Apr, [facility] [address] [facility] [id number] [place] [address] Apr, [facility] [address] [facility] [id number] [place] [address] Apr, [facility] [address] [facility] [id number] [place] [address] Apr, [facility] [address] [facility] [id number] [place] [address] Mar, [facility] [address] [facility] [id number] [place] [address] Mar, [facility] [address] [id number] [place] [address] Mar, [facility] [address] [id number] [place] [address] Mar, [facility] [address] [id number] [place] [address] Mar, [facility] [address] [id number] [place] [address] Mar, [facility] [place] [facility] [address] [id number] [place] [address] Mar, [facility] [place] [facility] [address] [id number] [place] [address] Mar, [facility] [address] [id number] [place] [address] Feb, [facility] [address] [id number] [place] [address] Feb, [facility] [place] [address] [id number] [place] [address] Feb, [facility] [address] [id number] [place] [address] Feb, [facility] [place] [address] [id number] [place] [address] Feb, [facility] [address] [id number] [place] [address] Feb, [facility] [address] [id number] [place] [address] Feb, [facility] [address] [id number] [place] [address] Jan, [facility] [address] [id number] [place] [address] Jan, [facility] [address] [id number] [place] [address] Jan, [facility] [address] [id number] [place] [address] Jan, [facility] [address] [id number] [place] [address] Jan, [facility] [address] [id number] [place] [address] Jan, [facility] [address] [id number] [place] [id number] Jan, [facility] [address] [id number] [place] [id number] Jan, [facility] [address] [id number] [place] [address] Dec, [facility] [address] [id number] [place] [address] Dec, [facility] [address] [id number] [place] [address] Dec, [facility] [address] [id number] [place] [address] Dec, [facility] [address] [id number] [place] [address] Dec, [facility] [address] [id number] [place] [address] Dec, [facility] [address] [id number] [place] [address] Dec, [facility] [address] [id number] [place] [address] Dec, [facility] [address] [id number] [place] [address] Dec, [facility] [address] [id number] [place] [address] Dec, [facility] [address] [id number] [place] [id number] 27 Nov, 2012 [facility] [address] [id number] [place] [id number] Nov, 2012 [facility] [address] [id number] [place] [address] 24 Nov, 2012 [facility] [address] [id number] [place] [address] 20 Nov, 2012 [facility] [address] [id number] [place] [address] 19 Nov, 2012 [facility] [address] [id number] [place] [address] 13 Nov, 2012 [facility] [address] [id number] [place] [address] 10 Nov, 2012 [facility] [address] [id number] [place] [address] Nov, [facility] [address] [id number] [place] [address] Oct, [facility] [address] [id number] [place] [address] Oct, [facility] [address] [id number] [place] [address] Oct, [facility] [address] [id number] [place] [address] Sep, [facility] [address] [id number] [place] [address] Sep, [facility] [address] [id number] [place] [address] Sep, [facility] [address] [id number] [place] [address] Sep, [facility] [address] [id number] [place] [address] Sep, [facility] [address] [id number] [place] [address] Aug, [facility] [place] [facility] [address] [id number] [place] [address] Aug, [facility] [facility] [address] [id number] [place] [address] Aug, [facility] [place] [facility] [address] [id number] [place] [address] Aug, [facility] [address] [id number] [place] [address] Aug, [facility] [facility] [address] [id number] [place] [address] Aug, [facility] [place] [facility] [address] [id number] [place] [address] July, [facility] [place] [facility] [address] [id number] [place] [address] July, [facility] [place] [facility] [address] [id number] [place] [address] July, [facility] [place] [facility] [address] [id number] [place] [address] July, [facility] [address] [id number] [place] [address] July, [facility] [place] [facility] [address] [id number] [place] [address] July, [facility] [place] [facility] [address] [id number] [place] [address] Jun, [facility] [place] [facility] [address] [id number] [place] [address] Jun, [facility] [place] [facility] [address] [id number] [place] [address] Jun, [facility] [place] [facility] [address] [id number] [place] [address] Jun, [facility] [address] [id number] [place] [address] May, [facility] [address] [id number] [place] [address] May, [facility] [address] [facility] [id number] [place] [address] May, [facility] [address] [id number] [place] [address] Apr, [facility] [address] [id number] [place] [address] Mar, [facility] [address] [id number] [place] [address] Mar, [facility] [address] [facility] [id number] [place] [address] Mar, [facility] [address] [id number] [place] [address] Mar, [facility] [address] [facility] [id number] [place] [address] Mar, [facility] [address] [facility] [id number] [place] [address] Feb, [facility] [address] [id number] [place] [address] Feb, [facility] [address] [id number] [place] [address] Feb, [facility] [address] [id number] [place] [address] 17 Feb, 2012 [facility] [address] [facility] [id number] [place] [address] Jan, [facility] [address] [facility] [id number] [place] [address] Jan, [facility] [address] [id number] [place] [address] Jan, [facility] [address] [id number] [place] [address] Jan, [facility] [place] [facility] [address] [id number] [place] [address] Dec, [facility] [place] [facility] [address] [id number] [place] [address] Dec, [facility] [place] [facility] [address] [id number] [place] [address] Nov, [facility] [place] [facility] [address] [id number] [place] [address] Oct, [facility] [address] [id number] [place] [address] Oct, [facility] [place] [facility] [address] [id number] [place] [address] Oct, [facility] [address] [id number] [place] [address] Oct, [facility] [address] [id number] [place] [address] Oct, [facility] [address] [id number] [place] [address] Sep, [facility] [place] [facility] [address] [id number] [place] [address] Sep, [facility] [address] [id number] [place] [address] Aug, [facility] [address] [place] [id number] Aug, [facility] [place] [facility] [address] [id number] [place] [address] Aug, [facility] [address] [id number] [place] [address] July, [facility] [address] [id number] [place] [address] July, [facility] [place] [facility] [address] [id number] [place] [address] Jun, [facility] [place] [facility] [address] [id number] [place] [address] Jun, [facility] [place] [facility] [address] [id number] [place] [address] Jun, [facility] [place] [facility] [address] [id number] [place] [address] Jun, [facility] [place] [facility] [address] [id number] [place] [address] Apr, [facility] [place] [facility] [address] [id number] [place] [address] Apr, [facility] [place] [facility] [address] [id number] [place] [address] Apr, [facility] [place] [facility] [address] [id number] [place] [address] Mar, [facility] [place] [facility] [address] [id number] [place] [address] Mar, [facility] [place] [facility] [address] [id number] [place] [address] Mar, [facility] [place] [facility] [address] [id number] [place] [address] Mar, [facility] [place] [facility] [address] [id number] [place] [address] Mar, [facility] [place] [facility] [address] [id number] [place] [address] Jan, [facility] [place] [facility] [address] [id number] [place] [address] Jan, [facility] [place] [facility] [address] [id number] [place] [address] Jan, [facility] [address] [id number] [place] [address] 17 Mar, 2010 [facility] [place] [facility] [address] [id number] [place] [address] 11 Mar, 2010 [facility] [address] [facility] [id number] [place] [address] 20 Feb, 2010 [facility] [place] [facility] [address] [id number] [place] [address] 16 Feb, 2010 [facility] [address] [id number] [place] [address] Feb, [facility] [place] [facility] [address] [id number] [place] [address] Jan, [facility] [address] [facility] [id number] [place] [address] Jan, [facility] [place] [facility] [address] [facility] [id number] [place] [address] Dec, [facility] [address] [facility] [id number] [place] [address] Dec, [facility] [place] [facility] [address] [facility] [id number] [place] [address] May, [facility] [place] [facility] [address] [facility] [id number] [place] [address] 10 Apr, 2009 [facility] [place] [facility] [address] [id number] [place] [address] Feb, [facility] [place] [facility] [address] [id number] [place] [address] Feb, [facility] [place] [facility] [address] [facility] [id number] [place] [address] 30 Jan, 2009 [facility] [place] [facility] [address] [facility] [id number] [place] [address] Jan, [facility] [place] [facility] [address] [facility] [id number] [place] [address] Jan, [facility] [place] [address] [facility] [id number] [place] [address] Jan, [facility] [place] [address] [facility] [id number] [place] [address] Jan, IMMUNIZATIONS No Known Immunizations SOCIAL HISTORY Never Assessed REASON FOR VISIT Controlled Medication Refill PLAN OF CARE VITAL SIGNS MEDICATIONS Medication Instructions Dosage Frequency Start Date End Date Duration Status Hydrocodone-Acetaminophen 5-325 MG Orally every 6 hrs 1 tablet as needed 6h 15 Nov, 2016 28 days Active MS Contin 30 MG Orally every 12 hrs 1 tablet 12h 15 Nov, 2016 28 days Active RESULTS No Results [...]
--- OUTSIDE RECORDS SUMMARY | 2018-10-04 07:05 | XMS REPORT ---
Author Author KATHY ESTHER [facility] Address [address] [place] [address] Care Team Providers Care Marketing Assistant Name Role Phone KATHYESTHER VILLEGAS Unavailable PROBLEMS Type Condition ICD9-CM Code JDN42-LP Code Onset Dates Condition Status SNOMED Code Problem Primary osteoarthritis of both knees M17.0 Active 210326046 Problem MITCHELL treated with BiPAP G47.33 Active 88820481 Problem Nocturnal hypoxia G47.34 Active 368726621 Problem Chronic prescription opiate use Z79.891 Active 785675454 Problem Chronic systolic (congestive) heart failure I50.22 Active 590452347 Problem Acute right-sided low back pain with right-sided sciatica M54.41 Active 48817110 Problem Posttraumatic stress disorder F43.10 Active 55221423 Problem Severe major depression with psychotic features F32.3 Active 35326260 Problem Mood disorder F39 Active 61670174 Problem Mild episode of recurrent major depressive disorder F33.0 Active 704703286 Problem Type 2 diabetes mellitus with diabetic polyneuropathy E11.42 Active 497961457 Problem Pure hypercholesterolemia E78.0 Active 011058856 Problem Chronic pain syndrome G89.4 Active 125533292 Problem Tobacco abuse Z72.0 Active 422038656 Problem Obesity, morbid, BMI 40.0-49.9 E66.01 Active 034693305 Problem BMI 45.0-49.9, adult Z68.42 Active 597630609 Problem Macrocytosis D75.89 Active 774208553 Problem Major depressive disorder, recurrent episode, unspecified severity F33.9 Active 46586046 Problem Gastroesophageal reflux disease, esophagitis presence not specified K21.9 Active 702502709 Problem History of DVT (deep vein thrombosis) Z86.718 Active 386015035 Problem Essential hypertension I10 Active 92417577 Problem History of weight loss surgery Z98.84 Active 339703955 Problem PTSD (post-traumatic stress disorder) F43.10 Active 70720243 Problem Non-ischemic cardiomyopathy I42.9 Active 12988190 Problem Chronic obstructive pulmonary disease, unspecified COPD type J44.9 Active 79517084 ALLERGIES No Information ENCOUNTERS Encounter Location Date Diagnosis [facility] [id number] [place] [address] Sep, [facility] [id number] [place] [address] July, Medicare annual wellness visit, initial Z00.00 [facility] [id number] [place] [address] May, [facility] [address] [address] May, BMI 45.0-49.9, adult Z68.42 ; Mood disorder F39 and Posttraumatic stress disorder F43.10 [facility] [id number] [place] [address] May, [facility] [id number] [place] [address] May, Primary osteoarthritis of both knees M17.0 and Chronic pain syndrome G89.4 [facility] [facility] [id number] [place] [address] May, Mood disorder F39 [facility] [facility] [id number] [place] [address] Apr, Type 2 diabetes mellitus with diabetic polyneuropathy E11.42 [facility] [id number] [place] [address] Apr, [facility] [id number] [place] [address] Apr, Primary osteoarthritis of both knees M17.0 and Chronic pain syndrome G89.4 [facility] [id number] [place] [address] Apr, Mood disorder F39 [facility] [id number] [place] [address] Mar, Mood disorder F39 and Posttraumatic stress disorder F43.10 [facility] [id number] [place] [address] Mar, Primary osteoarthritis of both knees M17.0 and Chronic pain syndrome G89.4 [facility] [address] [place] [address] Feb, Primary osteoarthritis of both knees M17.0 and Chronic pain syndrome G89.4 [facility] [address] [place] [address] Feb, Mood disorder F39 [facility] [id number] [place] [address] Jan, Type 2 diabetes mellitus with diabetic polyneuropathy E11.42 ; Primary osteoarthritis of both knees M17.0 ; Mood disorder F39 ; Obesity, morbid, BMI 40.0-49.9 E66.01 ; Chronic prescription opiate use Z79.891 ; Acute suppurative otitis media of both ears without spontaneous rupture of tympanic membranes, recurrence not specified H66.003 and BMI 45.0-49.9, adult Z68.42 [facility] [id number] [place] [address] Jan, Primary osteoarthritis of both knees M17.0 and Chronic pain syndrome G89.4 [facility] [id number] [place] [address] Dec, Mood disorder F39 and Posttraumatic stress disorder F43.10 [facility] [id number] [place] [address] Dec, Primary osteoarthritis of both knees M17.0 and Chronic pain syndrome G89.4 [facility] [id number] [place] [address] 18 Nov, 2016 Chronic pain syndrome G89.4 [facility] [id number] [place] [address] 15 Nov, 2016 Primary osteoarthritis of both knees M17.0 and Chronic pain syndrome G89.4 [facility] [address] [place] [address] 13 Nov, 2016 Type 2 diabetes mellitus with diabetic polyneuropathy E11.42 and Chronic pain syndrome G89.4 [facility] [id number] [place] [address] 12 Nov, 2016 Posttraumatic stress disorder F43.10 and Mood disorder F39 [facility] [id number] [place] [address] Oct, Chronic pain syndrome G89.4 [facility] [id number] [place] [address] 16 Oct, 2016 Type 2 diabetes mellitus with diabetic polyneuropathy E11.42 ; BMI 45.0-49.9, adult Z68.42 ; Primary osteoarthritis of both knees M17.0 and Skin lesion L98.9 [facility] [id number] [place] [address] Oct, Chronic pain syndrome G89.4 [facility] [id number] [place] [address] Sep, Chronic pain syndrome G89.4 [facility] [id number] [place] [address] Sep, [facility] [id number] [place] [address] Sep, Chronic pain syndrome G89.4 [facility] [address] [place] [address] Aug, Chronic pain syndrome G89.4 [facility] [id number] [place] [address] Aug, [facility] [id number] [place] [address] Aug, Macrocytosis D75.89 and Pure hypercholesterolemia E78.0 [facility] [id number] [place] [address] Aug, Pure hypercholesterolemia E78.0 [facility] [address] [address] Aug, Macrocytosis D75.89 [facility] [facility] [id number] [place] [address] Aug, Pure hypercholesterolemia E78.0 ; Type 2 diabetes mellitus with diabetic polyneuropathy E11.42 ; MITCHELL treated with BiPAP G47.33 and Chronic pain syndrome G89.4 [facility] [id number] [place] [address] Aug, [facility] [facility] [id number] [place] [address] Aug, Hemorrhoids, unspecified hemorrhoid type K64.9 [facility] [facility] [id number] [place] [address] Aug, Chronic pain syndrome G89.4 ; Type 2 diabetes mellitus with diabetic polyneuropathy E11.42 ; Hemorrhoids, unspecified hemorrhoid type K64.9 ; Tobacco abuse Z72.0 and Primary osteoarthritis of both knees M17.0 [facility] [facility] [id number] [place] [address] July, Chronic pain syndrome G89.4 [facility] [id number] [place] [address] July, [facility] [id number] [place] [address] Jun, Chronic pain syndrome G89.4 [facility] [id number] [place] [address] Jun, Chronic pain syndrome G89.4 [facility] [id number] [place] [address] Jun, Severe major depression with psychotic features F32.3 and Posttraumatic stress disorder F43.10 [facility] [address] [address] Jun, Chronic pain syndrome G89.4 [facility] [id number] [place] [address] Jun, [facility] [address] [place] [address] May, Chronic pain syndrome G89.4 [facility] [id number] [place] [address] May, Tobacco abuse Z72.0 [facility] [id number] [place] [address] May, [facility] [id number] [place] [address] Apr, Chronic pain syndrome G89.4 [facility] [id number] [place] [address] Apr, [facility] [id number] [place] [address] Apr, Right foot pain M79.671 [facility] [address] [place] [address] Mar, Type 2 diabetes mellitus with diabetic polyneuropathy E11.42 ; MITCHELL treated with BiPAP G47.33 ; Pure hypercholesterolemia E78.0 ; Chronic pain syndrome G89.4 ; Tobacco abuse Z72.0 and Obesity, morbid, BMI 40.0-49.9 E66.01 [facility] [address] [address] Mar, [facility] [id number] [place] [address] Mar, [facility] [id number] [place] [address] Mar, [facility] [id number] [place] [address] Mar, [facility] [address] [address] Mar, [facility] [id number] [place] [address] Mar, Severe major depression with psychotic features F32.3 and Posttraumatic stress disorder F43.10 [facility] [address] [place] [address] Mar, [facility] [address] [facility] [id number] [place] [address] Feb, [facility] [id number] [place] [address] Feb, [facility] [id number] [place] [address] Jan, [facility] [id number] [place] [address] Jan, [facility] [id number] [place] [address] Dec, Posttraumatic stress disorder F43.10 and Severe major depression with psychotic features F32.3 [facility] [address] [address] Dec, Type 2 diabetes mellitus with diabetic polyneuropathy E11.42 ; Chronic pain syndrome G89.4 and Acute right-sided low back pain with right-sided sciatica M54.41 [facility] [address] [address] Dec, [facility] [id number] [place] [address] Dec, [facility] [id number] [address] Nov, [facility] [address] [place] [address] Nov, [facility] [id number] [place] [address] Nov, [facility] [id number] [place] [address] Oct, [facility] [id number] [place] [address] Oct, [facility] [id number] [place] [address] Sep, Dental examination Z01.20 [facility] [id number] [place] [address] Sep, [facility] [id number] [place] [address] Sep, Type 2 diabetes mellitus with diabetic polyneuropathy E11.42 ; Chronic pain syndrome G89.4 ; Chronic prescription opiate use Z79.891 ; Injury of right index finger, sequela S69.91XS and Anejaculation N50.8 [facility] [id number] [place] [address] Aug, [facility] [id number] [place] [address] Aug, [facility] [address] [place] [address] Aug, Cellulitis of finger of right hand L03.011 [facility] [id number] [place] [address] July, [facility] [id number] [place] [address] July, [facility] [id number] [place] [address] Jun, Onychomycosis B35.1 [facility] [address] [place] [address] Jun, Severe major depression with psychotic features F32.3 and Posttraumatic stress disorder F43.10 [facility] [address] [address] Jun, [facility] [id number] [place] [address] Jun, [facility] [id number] [place] [address] Jun, [facility] [id number] [place] [address] May, Type 2 diabetes mellitus with diabetic polyneuropathy E11.42 [facility] [id number] [place] [address] May, Type 2 diabetes mellitus with diabetic polyneuropathy E11.42 and Urinary hesitancy R39.11 [facility] [id number] [place] [address] May, Type 2 diabetes mellitus with diabetic polyneuropathy E11.42 ; Left hip pain M25.552 and Benign prostatic hyperplasia with lower urinary tract symptoms, unspecified morphology N40.1 [facility] [id number] [place] [address] May, [facility] [address] [place] [address] Apr, Severe major depression with psychotic features F32.3 and Posttraumatic stress disorder F43.10 [facility] [address] [place] [address] Apr, [facility] [address], [place] [address] Mar, [facility] [id number] [place] [address] Mar, Dysuria R30.0 and Urinary hesitancy R39.11 [facility] [address] [place] [address] Mar, Onychomycosis B35.1 [facility] [address], [place] [address] Mar, [facility] [id number] [place] [address] Feb, [facility] [id number] [place] [address] Jan, [facility] [id number] [place] [address] Jan, Posttraumatic stress disorder F43.10 and Severe major depression with psychotic features F32.3 [facility] [id number] [place] [address] Jan, [facility] [id number] [place] [address] Jan, Chronic pain syndrome G89.4 ; Type 2 diabetes mellitus with diabetic polyneuropathy E11.42 ; Decreased pedal pulses R09.89 and Paresthesia of both hands R20.2 [facility] [address] [place] [address] Dec, Posttraumatic stress disorder F43.10 and Severe major depression with psychotic features F32.3 [facility] [address], [place] [address] Dec, [facility] [id number] [place] [address] Dec, [facility] [address], [place] [address] Dec, Onychomycosis B35.1 [facility] [id number] [place] [address] Dec, [facility] [id number] [place] [address] Dec, [facility] [id number] [place] [address] Nov, [place] [id number] [place] [address] Oct, Depression, major, recurrent, moderate 296.32 and Posttraumatic stress disorder 309.81 [place] [id number] [place] [address] Oct, [place] [id number] [place] [address] Oct, [place] [id number] [place] [address] Oct, [place] [facility] [id number] [place] [address] Sep, Posttraumatic stress disorder 309.81 and Depression, major, recurrent, moderate 296.32 [place] [id number] [place] [address] Sep, [place] [id number] [place] [address] Sep, Chronic airway obstruction, not elsewhere classified [id number] [place] [address] Sep, Onychomycosis 110.1 and DM neuro manif type II 250.60 [place] [id number] [place] [address] Sep, Chronic pain 338.29 ; Chronic airway obstruction, not elsewhere classified 496 ; Osteoarthritis of knees, bilateral 715.96 and On potassium wasting diuretic therapy V58.69 [place] [address] [place] [address] Sep, Insect bites 919.4 ; Sinusitis 473.9 and GERD (gastroesophageal reflux disease) 530.81 [place] [id number] [place] [address] Aug, Depression, major, recurrent, moderate 296.32 and Posttraumatic stress disorder 309.81 [place] [address] [facility] [id number] [address] Aug, [facility] [address] [facility] [id number] [place] [address] Aug, [facility] [address] [facility] [id number], [place] [address] Aug, [facility] [id number], [place] [address] July, Major depressive disorder, recurrent episode, moderate 296.32 and Posttraumatic stress disorder 309.81 [facility] [address] [facility] [id number] [place] [address] July, [facility] [id number] [place] [address] July, [facility] [address], [place] [address] July, [facility] [address] [place] [address] July, [facility] [address] [place] [address] Jun, [facility] [address] [place] [address] Jun, [facility] [address], [place] [address] May, [facility] [address] [facility] [id number], [place] [address] May, [facility] [address] [facility] [id number] [place] [address] May, [facility] [address] [facility] [id number] [place] [address] May, [facility] [id number] [place] [address] May, [facility] [place] [facility] [address] [id number] [place] [address] May, [facility] [place] [facility] [address] [id number] [place] [address] May, [facility] [place] [facility] [address] [id number] [place] [address] May, [facility] [place] [facility] [address] [id number] [place] [address] May, [facility] [place] [facility] [address] [id number] [place] [address] Apr, 2014 [facility] [place] [facility] [address] [id number] [place] [address] Apr, 2014 [facility] [place] [facility] [address] [facility] [id number] [place] [address] Apr, 2014 [facility] [place] [facility] [address] [id number] [place] [address] Apr, 2014 [facility] [place] [facility] [address] [facility] [id number] [place] [address] Apr, [facility] [place] [facility] [address] [facility] [id number] [place] [address] Apr, [facility] [place] [facility] [address] [facility] [id number] [place] [address] Apr, [facility] [place] [facility] [address] [id number], [place] [address] Apr, 2014 [facility] [place] [facility] [address] [id number] [place] [address] Apr, [facility] [place] [facility] [address] [id number] [place] [address] Mar, [facility] [place] [facility] [address] [id number], [place] [address] Mar, [facility] [place] [facility] [address] [id number], [place] [address] Mar, [facility] [address] [id number] [place] [address] Mar, [facility] [place] [facility] [address] [id number] [place] [address] Mar, [facility] [place] [facility] [address] [id number] [place] [address] 15 Mar, 2014 [facility] [place] [facility] [address] [id number] [place] [address] 15 Mar, 2014 [facility] [place] [facility] [address] [id number] [place] [address] Mar, [facility] [place] [facility] [address] [id number] [place] [address] Mar, [facility] [place] [facility] [address] [id number], [place] [address] Mar, [facility] [place] [facility] [address] [id number] [place] [address] Mar, [facility] [place] [facility] [address] [id number] [place] [address] Mar, [facility] [place] [facility] [address] [id number] [place] [address] Mar, [facility] [place] [facility] [address] [id number], [place] [address] Mar, [facility] [place] [facility] [address] [address] [id number], [place] [address] Mar, [facility] [place] [facility] [address] [id number], [place] [address] Mar, [facility] [place] [facility] [address] [id number], [place] [address] Mar, [facility] [place] [facility] [address] [id number], [place] [address] Mar, [facility] [place] [facility] [address] [id number] [place] [address] 16 Feb, 2014 [facility] [place] [facility] [address] [id number] [place] [address] 16 Feb, 2014 [facility] [place] [facility] [address] [id number] [place] [address] 15 Feb, 2014 [facility] [place] [facility] [address] [id number] [place] [address] 15 Feb, 2014 [facility] [place] [facility] [address] [id number] [place] [address] 15 Feb, 2014 [facility] [place] [facility] [address] [id number] [place] [address] Feb, [facility] [place] [facility] [address] [id number] [place] [address] Jan, [facility] [place] [facility] [address] [id number] [place] [address] Jan, [facility] [place] [facility] [address] [id number] [place] [address] Jan, [facility] [place] [facility] [address] [id number] [place] [address] Jan, [facility] [place] [facility] [address] [id number] [place] [address] Jan, [facility] [place] [facility] [address] [id number] [place] [address] Jan, [facility] [place] [facility] [address] [id number] [place] [address] Jan, [facility] [place] [facility] [address] [id number] [place] [address] Jan, [facility] [place] [facility] [address] [id number] [place] [address] Jan, [facility] [place] [facility] [address] [id number] [place] [address] Jan, [facility] [place] [facility] [address] [id number] [place] [address] Dec, [facility] [place] [facility] [address] [id number] [place] [address] Dec, [facility] [place] [facility] [address] [id number] [place] [address] Dec, [facility] [place] [facility] [address] [id number] [place] [address] Dec, [facility] [place] [facility] [address] [id number] [place] [address] Nov, [facility] [place] [facility] [address] [id number] [place] [address] Nov, [facility] [place] [facility] [address] [id number] [place] [address] Nov, [facility] [place] [facility] [address] [id number] [place] [address] Nov, [facility] [place] [facility] [address] [id number] [place] [address] Nov, [facility] [place] [facility] [address] [id number] [place] [address] Nov, [facility] [place] [facility] [address] [id number], [place] [address] Oct, [facility] [place] [facility] [address] [id number], [place] [address] Oct, [facility] [place] [facility] [address] [id number] [place] [address] Oct, [facility] [place] [facility] [address] [id number] [place] [address] Oct, [facility] [place] [facility] [address] [id number] [place] [address] Sep, [facility] [place] [facility] [address] [id number] [place] [address] Sep, [facility] [place] [facility] [address] [id number] [place] [address] Sep, [facility] [place] [facility] [address] [id number] [place] [address] Sep, [facility] [place] [facility] [address] [id number] [place] [address] Sep, [facility] [place] [facility] [address] [id number] [place] [address] Sep, [facility] [place] [facility] [address] [id number] [place] [address] July, [facility] [place] [facility] [address] [id number] [place] [address] July, [facility] [place] [facility] [address] [id number] [place] [address] July, [facility] [place] [facility] [address] [id number] [place] [address] July, [facility] [place] [facility] [address] [id number] [place] [address] Jun, [facility] [place] [facility] [address] [id number] [place] [address] Jun, [facility] [place] [facility] [address] [id number] [place] [address] Jun, [facility] [place] [facility] [address] [id number] [place] [address] Jun, [facility] [place] [facility] [address] [id number] [place] [address] Jun, [facility] [place] [facility] [address] [id number] [place] [address] Jun, [facility] [place] [facility] [address] [id number] [place] [address] May, [facility] [place] [facility] [address] [id number] [place] [address] May, [facility] [place] [facility] [address] [id number] [place] [address] Apr, [facility] [place] [facility] [address] [id number] [place] [address] Apr, [facility] [place] [facility] [address] [id number] [place] [address] Apr, [facility] [place] [facility] [address] [id number] [place] [address] Apr, [facility] [place] [facility] [address] [id number] [place] [address] Apr, [facility] [place] [facility] [address] [id number] [place] [address] Apr, [facility] [place] [facility] [address] [id number] [place] [address] Apr, [facility] [place] [facility] [address] [id number] [place] [address] Mar, [facility] [place] [facility] [address] [id number] [place] [address] Mar, [facility] [place] [facility] [address] [id number] [place] [address] Mar, [facility] [place] [facility] [address] [id number] [place] [address] Mar, [facility] [place] [facility] [address] [id number] [place] [address] Mar, [facility] [place] [facility] [address] [id number] [place] [address] Mar, [facility] [place] [facility] [address] [id number] [place] [address] Mar, [facility] [place] [facility] [address] [id number] [place] [address] 13 Mar, 2013 [facility] [address] [id number] [place] [address] Feb, [facility] [place] [facility] [address] [id number] [place] [address] Feb, [facility] [place] [facility] [address] [id number] [place] [address] Feb, [facility] [place] [facility] [address] [id number] [place] [address] Feb, [facility] [place] [facility] [address] [id number] [place] [address] Feb, [facility] [place] [facility] [address] [id number] [place] [address] Feb, [facility] [place] [facility] [address] [id number] [place] [address] Feb, [facility] [place] [facility] [address] [id number] [place] [address] Jan, [facility] [place] [facility] [address] [id number] [place] [address] Jan, [facility] [place] [facility] [address] [id number] [place] [address] Jan, [facility] [place] [facility] [address] [id number] [place] [address] Jan, [facility] [place] [facility] [address] [id number], [place] [address] Jan, [facility] [place] [facility] [address] [id number] [place] [address] Jan, [facility] [place] [facility] [address] [id number] [place] [id number] Jan, [facility] [place] [facility] [address] [id number] [place] [id number] Jan, [facility] [place] [facility] [address] [id number] [place] [address] Dec, 2012 [facility] [place] [facility] [address] [id number] [place] [address] Dec, 2012 [facility] [place] [facility] [address] [id number] [place] [address] Dec, 2012 [facility] [place] [facility] [address] [id number] [place] [address] Dec, 2012 [facility] [place] [facility] [address] [id number] [place] [address] Dec, 2012 [facility] [place] [facility] [address] [id number] [place] [address] Dec, 2012 [facility] [place] [facility] [address] [id number] [place] [address] Dec, [facility] [place] [facility] [address] [id number] [place] [address] Dec, [facility] [place] [facility] [address] [id number] [place] [address] 16 Dec, 2012 [facility] [place] [facility] [address] [id number] [place] [address] 04 Dec, 2012 [facility] [place] [facility] [address] [id number][place] [id number] 27 Nov, 2012 [facility] [place] [facility] [address] [facility] [id number] [id number] 27 Nov, 2012 [facility] [place] [facility] [address] [id number], [place] [address] 24 Nov, 2012 [facility] [place] [facility] [address] [id number] [place] [address] 20 Sep, 2012 [facility] [place] [facility] [address] [id number] [place] [address] 19 Nov, 2012 [facility] [place] [facility] [address] [id number] [place] [address] Nov, [facility] [place] [facility] [address] [id number] [place] [address] Nov, [facility] [place] [facility] [address] [id number] [place] [address] Nov, [facility] [place] [facility] [address] [id number] [place] [address] Oct, [facility] [place] [facility] [address] [id number] [place] [address] Oct, [facility] [place] [facility] [address] [id number] [place] [address] Oct, [facility] [place] [facility] [address] [id number] [place] [address] Sep, [facility] [place] [facility] [address] [id number] [place] [address] Sep, [facility] [place] [facility] [address] [id number] [place] [address] Sep, [facility] [place] [facility] [address] [id number] [place] [address] Sep, [facility] [place] [facility] [address] [id number] [place] [address] Sep, [facility] [place] [facility] [address] [id number] [place] [address] Aug, [facility] [place] [facility] [address] [id number], [place] [address] Aug, [facility] [place] [facility] [address] [id number] [place] [address] Aug, [facility] [place] [facility] [address] [id number] [place] [address] Aug, [facility] [place] [facility] [address] [id number], [place] [address] Aug, [facility] [place] [facility] [address] [id number], [place] [address] Aug, [facility] [address] [id number] [place] [address] July, [facility] [address] [id number] [place] [address] July, [facility] [address] [id number] [place] [address] July, [facility] [address] [id number] [place] [address] July, [facility] [address] [id number] [place] [address] July, [facility] [address] [id number] [place] [address] July, [facility] [address] [id number] [place] [address] Jun, [facility] [address] [id number] [place] [address] Jun, [facility] [address] [id number] [place] [address] Jun, [facility] [address] [id number] [place] [address] Jun, [facility] [address] [id number] [place] [address] May, [facility] [address] [id number] [place] [address] May, [facility] [address] [id number] [place] [address] May, [facility] [place] [facility] [address] [id number] [place] [address] Apr, [facility] [address] [id number] [place] [address] Mar, [facility] [place] [facility] [address] [id number] [place] [address] 18 Mar, 2012 [facility] [place] [facility] [address] [id number] [place] [address] 17 Mar, 2012 [facility] [place] [facility] [address] [id number] [place] [address] 16 Mar, 2012 [facility] [place] [facility] [address] [id number] [place] [address] 15 Mar, 2012 [facility] [place] [facility] [address] [id number] [place] [address] 31 Feb, 2012 [facility] [place] [facility] [address] [id number] [place] [address] Feb, [facility] [place] [facility] [address] [id number] [place] [address] 17 Feb, 2012 [facility] [place] [facility] [address] [id number] [place] [address] 17 Feb, 2012 [facility] [place] [facility] [address] [id number] [place] [address] Jan, [facility] [place] [facility] [address] [id number] [place] [address] Jan, [facility] [place] [facility] [address] [id number] [place] [address] Jan, [facility] [place] [facility] [address] [id number] [place] [address] Jan, [facility] [place] [facility] [address] [id number] [place] [address] Dec, [facility] [place] [facility] [address] [id number] [place] [address] Dec, [facility] [place] [facility] [address] [id number] [place] [address] Nov, [facility] [place] [facility] [address] [id number] [place] [address] Oct, [facility] [address] [id number] [place] [address] Oct, [facility] [address] [id number] [place] [address] Oct, [facility] [address] [id number] [place] [address] Oct, [facility] [address] [id number] [place] [address] Oct, [facility] [address] [id number] [place] [address] Sep, [facility] [address] [id number] [place] [address] Sep, [facility] [address] [id number] [place] [address] Aug, [facility] [address] [place] [id number] Aug, [facility] [address] [id number] [place] [address] Aug, [facility] [address] [id number] [place] [address] July, [facility] [address] [id number] [place] [address] July, [facility] [address] [id number] [place] [address] Jun, [facility] [address] [id number] [place] [address] Jun, [facility] [address] [id number] [place] [address] 16 Jun, 2011 [facility] [address] [id number] [place] [address] Jun, [facility] [address] [id number] [place] [address] 15 Apr, 2011 [facility] [address] [id number] [place] [address] 15 Apr, 2011 [facility] [place] [facility] [address] [id number] [place] [address] 10 Apr, 2011 [facility] [address] [id number] [place] [address] Mar, [facility] [place] [facility] [address] [id number] [place] [address] Mar, [facility] [address] [id number] [place] [address] Mar, [facility] [address] [id number] [place] [address] Mar, [facility] [address] [id number] [place] [address] Mar, [facility] [address] [id number] [place] [address] Jan, [facility] [address] [id number] [place] [address] Jan, [facility] [place] [facility] [address] [facility] [id number] [place] [address] Jan, [facility] [address] [id number] [place] [address] Mar, [facility] [place] [facility] [address] [id number] [place] [address] Mar, [facility] [place] [facility] [address] [id number] [place] [address] Feb, [facility] [place] [facility] [address] [id number] [place] [address] 16 Feb, 2010 [facility] [place] [facility] [address] [facility] [id number] [place] [address] 16 Feb, 2010 [facility] [place] [facility] [id number], [place] [address] Jan, [facility] [id number] [place] [address] Jan, [facility] [id number], [place] [address] Dec, [facility] [id number] [place] [address] Dec, [facility] [id number] [place] [address] May, [facility] [id number] [place] [address] Apr, [facility] [id number] [place] [address] Feb, [facility] [id number] [place] [address] Feb, [facility] [id number] [place] [address] Jan, [facility] [id number] [place] [address] Jan, [facility] [id number], [place] [address] Jan, [facility] [id number], [place] [address] Jan, [facility] [id number], [place] [address] Jan, IMMUNIZATIONS No Known Immunizations SOCIAL HISTORY Never Assessed REASON FOR VISIT Lidocaine 3% cream (not covered) PLAN OF CARE VITAL SIGNS MEDICATIONS Medication [...]
--- OUTSIDE RECORDS SUMMARY | 2018-10-04 07:05 | XMS REPORT ---
Author Author KATHY ETSHER Organization [facility] Address [address] [place] [address] Care Team Providers Care Service Attendant Name Role Phone ESTHER CHAVEZ Unavailable PROBLEMS Type Condition ICD9-CM Code [id number] Code Onset Dates Condition Status SNOMED Code Problem MITCHELL treated with BiPAP G47.33 Active 96801388 Problem Acute right-sided low back pain with right-sided sciatica M54.41 Active 03749439 Problem Chronic prescription opiate use Z79.891 Active 952583286 Problem BMI 45.0-49.9, adult Z68.42 Active 545002607 Problem Gastroesophageal reflux disease, esophagitis presence not specified K21.9 Active 340014262 Problem Macrocytosis D75.89 Active 001177996 Problem Major depressive disorder, recurrent episode, unspecified severity F33.9 Active 21214604 Problem Primary osteoarthritis of both knees M17.0 Active 473082351 Problem Severe major depression with psychotic features F32.3 Active 43083490 Problem Posttraumatic stress disorder F43.10 Active 29984780 Problem Tobacco abuse Z72.0 Active 774901924 Problem Obesity, morbid, BMI 40.0-49.9 E66.01 Active 339018183 Problem History of weight loss surgery Z98.84 Active 406524780 Problem PTSD (post-traumatic stress disorder) F43.10 Active 29524382 Problem Non-ischemic cardiomyopathy I42.9 Active 32192662 Problem Chronic obstructive pulmonary disease, unspecified COPD type J44.9 Active 41906828 Problem Pure hypercholesterolemia E78.0 Active 861894159 Problem Type 2 diabetes mellitus with diabetic polyneuropathy E11.42 Active 697888081 Problem Chronic systolic (congestive) heart failure I50.22 Active 983519428 Problem History of DVT (deep vein thrombosis) Z86.718 Active 057423463 Problem Nocturnal hypoxia G47.34 Active 230836340 Problem Chronic pain syndrome G89.4 Active 948351005 Problem Essential hypertension I10 Active 58474971 ALLERGIES Unknown Allergies SOCIAL HISTORY No smoking Hx information available PLAN OF CARE VITAL SIGNS MEDICATIONS Medication Instructions Dosage Frequency Start Date End Date Duration Status Ventolin HFA 108 (90 Base) MCG/ACT Inhalation every 4 hrs 2 puffs as needed 4h Mar, Active RESULTS No Results PROCEDURES No Known procedures IMMUNIZATIONS No Known Immunizations
--- OUTSIDE RECORDS SUMMARY | 2018-10-04 07:06 | XMS REPORT ---
Author Author PARI Garcia Organization [facility] Address Unknown Care Team Providers Care Lead Tank Mechanic Name Role Phone PARI Garcia Unavailable PROBLEMS Type Condition ICD9-CM Code [id number] Code Onset Dates Condition Status SNOMED Code Problem MITCHELL treated with BiPAP G47.33 Active 12314437 Problem Acute right-sided low back pain with right-sided sciatica M54.41 Active 38254574 Problem Chronic prescription opiate use Z79.891 Active 241406149 Problem BMI 45.0-49.9, adult Z68.42 Active 548943336 Problem Gastroesophageal reflux disease, esophagitis presence not specified K21.9 Active 279667670 Problem Macrocytosis D75.89 Active 579520451 Problem Major depressive disorder, recurrent episode, unspecified severity F33.9 Active 18795263 Problem Primary osteoarthritis of both knees M17.0 Active 854908222 Problem Severe major depression with psychotic features F32.3 Active 01546154 Problem Posttraumatic stress disorder F43.10 Active 09767452 Problem Tobacco abuse Z72.0 Active 667746716 Problem Obesity, morbid, BMI 40.0-49.9 E66.01 Active 435062812 Problem History of weight loss surgery Z98.84 Active 280875422 Problem PTSD (post-traumatic stress disorder) F43.10 Active 50913520 Problem Non-ischemic cardiomyopathy I42.9 Active 60711732 Problem Chronic obstructive pulmonary disease, unspecified COPD type J44.9 Active 88911132 Problem Pure hypercholesterolemia E78.0 Active 823857569 Problem Type 2 diabetes mellitus with diabetic polyneuropathy E11.42 Active 295395211 Problem Chronic systolic (congestive) heart failure I50.22 Active 095548034 Problem History of DVT (deep vein thrombosis) Z86.718 Active 092972503 Problem Nocturnal hypoxia G47.34 Active 834425987 Problem Chronic pain syndrome G89.4 Active 215061491 Problem Essential hypertension I10 Active 42137202 ALLERGIES Unknown Allergies SOCIAL HISTORY No smoking Hx information available PLAN OF CARE Activity Details Follow Up 3 Months Reason: VITAL SIGNS Height 66 in 2016-03-31 Weight 292 lbs 2016-03-31 Heart Rate 80 bpm 2016-03-31 Respiratory Rate 22 2016-03-31 BMI 47.12 kg/m2 2016-03-31 Blood pressure systolic 128 mmHg 2016-03-31 Blood pressure diastolic 80 mmHg 2016-03-31 MEDICATIONS Medication Instructions Dosage Frequency Start Date End Date Duration Status Pen [place] 31G X 6 MM as directed 24h May, Active Hydrocodone-Acetaminophen 5-325 MG Orally every 6 hrs 1 tablet as needed 6h Jan, 28 days Active MS Contin 15 MG Orally Once a day in the am- appt needed before due for next refill 1 tablet Oct, 28 days Active Pataday 0.2 % Ophthalmic 2 times a day 1 drop to affected eyes 12h Mar, Active Cyclobenzaprine HCl 10 MG TAKE ONE TABLET BY MOUTH THREE TIMES DAILY NEEDED 10 Active Prozac 40 MG Orally Once a day 1 capsule in the morning 24h 30 days Active Invega 6 MG Orally Once a day 2 tablets 24h 30 days Active Nexium 40 MG Orally Once a day qHS 1 capsule 30 Active Ibuprofen 800 MG Orally Three times a day 1 tablet as needed 8h 30 Active MS Contin 30 MG Orally Once a day in the evening- appt needed before due for next refill 1 tablet Oct, 28 days Active Liraglutide 18 MG/3ML Subcutaneous Once a day for one week, then increase to 1.2 mg SQ daily 0.6 mg May, Active BusPIRone HCl 15 MG Orally as needed Twice a day 1 tablet 12h Mar, 30 days Active Pantoprazole Sodium 40 MG Orally Once a day 1 tablet 24h 30 Active Metformin HCl 500 MG Orally Twice a day 1 tablet with meals 12h 90 days Active HydrOXYzine Pamoate 25 MG Orally at bedtime 1 capsule as needed Mar, 30 day(s) Active Gabapentin 600 MG Orally 3 times a day 2 tablets 8h 90 days Active Klonopin 1 MG Orally as needed Twice a day 1 tablet 12h 30 days Active RESULTS No Results PROCEDURES Procedure Date Ordered Related Diagnosis Body Site [facility] VISIT ESTABLISHED PATIENT Mar 31, 2016 Office Visit, Est Pt., Level 3 Mar 31, 2016 IMMUNIZATIONS No Known Immunizations
--- OUTSIDE RECORDS SUMMARY | 2018-10-04 07:06 | XMS REPORT ---
Author Author KATHY ESTHER [facility] Address [address] [place] [address] Care Team Providers Care Spike Driver Name Role Phone KATHYBRIAN VILLEGASY Unavailable PROBLEMS Type Condition ICD9-CM Code ALI51-VE Code Onset Dates Condition Status SNOMED Code Problem Primary osteoarthritis of both knees M17.0 Active 494692729 Problem MITCHELL treated with BiPAP G47.33 Active 91138401 Problem Nocturnal hypoxia G47.34 Active 124493757 Problem Chronic prescription opiate use Z79.891 Active 478092597 Problem Chronic systolic (congestive) heart failure I50.22 Active 692792082 Problem Acute right-sided low back pain with right-sided sciatica M54.41 Active 26075467 Problem Posttraumatic stress disorder F43.10 Active 35137019 Problem Severe major depression with psychotic features F32.3 Active 90095977 Problem Mood disorder F39 Active 66541132 Problem Mild episode of recurrent major depressive disorder F33.0 Active 833717773 Problem Type 2 diabetes mellitus with diabetic polyneuropathy E11.42 Active 215634075 Problem Pure hypercholesterolemia E78.0 Active 182177679 Problem Chronic pain syndrome G89.4 Active 198348029 Problem Tobacco abuse Z72.0 Active 533200271 Problem Obesity, morbid, BMI 40.0-49.9 E66.01 Active 358867945 Problem BMI 45.0-49.9, adult Z68.42 Active 914163719 Problem Macrocytosis D75.89 Active 153004193 Problem Major depressive disorder, recurrent episode, unspecified severity F33.9 Active 74752550 Problem Gastroesophageal reflux disease, esophagitis presence not specified K21.9 Active 242170595 Problem History of DVT (deep vein thrombosis) Z86.718 Active 748214535 Problem Essential hypertension I10 Active 23176772 Problem History of weight loss surgery Z98.84 Active 837646861 Problem PTSD (post-traumatic stress disorder) F43.10 Active 76895129 Problem Non-ischemic cardiomyopathy I42.9 Active 67555627 Problem Chronic obstructive pulmonary disease, unspecified COPD type J44.9 Active 36172220 ALLERGIES No Information SOCIAL HISTORY Never Assessed PLAN OF CARE VITAL SIGNS MEDICATIONS Unknown Medications RESULTS Name Result Date Reference Range CT Scan : Foot 2016-05-04 PROCEDURES No Known procedures IMMUNIZATIONS No Known [...]
--- OUTSIDE RECORDS SUMMARY | 2018-10-04 07:06 | XMS REPORT ---
Author Author KATHY ESTHER [facility] Address [address] [place] [address] Care Team Providers Care Hvac Service Technician Name Role Phone KATHYBRIAN VILLEGASY Unavailable PROBLEMS Type Condition ICD9-CM Code QTQ51-AC Code Onset Dates Condition Status SNOMED Code Problem Primary osteoarthritis of both knees M17.0 Active 176422402 Problem MITCHELL treated with BiPAP G47.33 Active 43708318 Problem Nocturnal hypoxia G47.34 Active 021600115 Problem Chronic prescription opiate use Z79.891 Active 384947038 Problem Chronic systolic (congestive) heart failure I50.22 Active 710534126 Problem Acute right-sided low back pain with right-sided sciatica M54.41 Active 95995658 Problem Posttraumatic stress disorder F43.10 Active 91449987 Problem Severe major depression with psychotic features F32.3 Active 18184681 Problem Mood disorder F39 Active 60064771 Problem Mild episode of recurrent major depressive disorder F33.0 Active 822914797 Problem Type 2 diabetes mellitus with diabetic polyneuropathy E11.42 Active 822600428 Problem Pure hypercholesterolemia E78.0 Active 812554981 Problem Chronic pain syndrome G89.4 Active 864668777 Problem Tobacco abuse Z72.0 Active 981811901 Problem Obesity, morbid, BMI 40.0-49.9 E66.01 Active 040201549 Problem BMI 45.0-49.9, adult Z68.42 Active 416013915 Problem Macrocytosis D75.89 Active 494218267 Problem Major depressive disorder, recurrent episode, unspecified severity F33.9 Active 44453923 Problem Gastroesophageal reflux disease, esophagitis presence not specified K21.9 Active 762654662 Problem History of DVT (deep vein thrombosis) Z86.718 Active 604855834 Problem Essential hypertension I10 Active 76260047 Problem History of weight loss surgery Z98.84 Active 707586120 Problem PTSD (post-traumatic stress disorder) F43.10 Active 32421253 Problem Non-ischemic cardiomyopathy I42.9 Active 36889175 Problem Chronic obstructive pulmonary disease, unspecified COPD type J44.9 Active 45438766 ALLERGIES No Information SOCIAL HISTORY Never Assessed PLAN OF CARE VITAL SIGNS MEDICATIONS Medication Instructions Dosage Frequency Start Date End Date Duration Status Pataday 0.2 % Ophthalmic 2 times a day 1 drop to affected eyes 12h Mar, Active Chantix Continuing Month Nagi 1 MG Orally Twice a day 1 tablet 12h 17 May, 2016 Jun, 30 day(s) Active Ventolin HFA 108 (90 [...]
--- OUTSIDE RECORDS SUMMARY | 2018-10-04 07:07 | XMS REPORT ---
Author Author ESTHER CHAVEZ [facility] Address [address] [place] [address] Care Team Providers Care Director Of Quality Control Name Role Phone KATHYCIARAESTHER Unavailable PROBLEMS Type Condition ICD9-CM Code IPE86-NG Code Onset Dates Condition Status SNOMED Code Problem MITCHELL treated with BiPAP G47.33 Active 00268175 Problem Type 2 diabetes mellitus with diabetic polyneuropathy E11.42 Active 409801633 Problem History of DVT (deep vein thrombosis) Z86.718 Active 000333491 Problem History of weight loss surgery Z98.84 Active 744879291 Problem Chronic systolic (congestive) heart failure I50.22 Active 781095057 Problem Essential hypertension I10 Active 33218669 Problem Chronic prescription opiate use Z79.891 Active 828044820 Problem Primary osteoarthritis of both knees M17.0 Active 377338906 Problem Chronic pain syndrome G89.4 Active 931097271 Problem Nocturnal hypoxia G47.34 Active 951476517 Problem Obesity, morbid, BMI 40.0-49.9 E66.01 Active 450175442 Problem Tobacco abuse Z72.0 Active 465633348 Problem Macrocytosis D75.89 Active 655864145 Problem Pure hypercholesterolemia E78.00 Active 815827538 Problem Posttraumatic stress disorder F43.10 Active 47913554 Problem Non-ischemic cardiomyopathy I42.9 Active 25142084 Problem Obstructive sleep apnea syndrome G47.33 Active 55212388 Problem Acute right-sided low back pain with right-sided sciatica M54.41 Active 15551074 Problem Gastroesophageal reflux disease, esophagitis presence not specified K21.9 Active 905801172 Problem Chronic obstructive pulmonary disease, unspecified COPD type J44.9 Active 10273324 Problem BMI 45.0-49.9, adult Z68.42 Active 981339270 Problem Mild episode of recurrent major depressive disorder F33.0 Active 573914917 Problem Mood disorder F39 Active 48107444 Problem Primary insomnia F51.01 Active 0676379 ALLERGIES No Information ENCOUNTERS Encounter Location Date Diagnosis [facility] [address] [address] Oct, [facility] [address] [address] Sep, Type 2 diabetes mellitus with diabetic polyneuropathy E11.42 [facility] [address] [address] Aug, Chronic pain syndrome G89.4 [facility] [address] [address] Aug, [facility] [address] [place] [address] Aug, Type 2 diabetes mellitus with diabetic polyneuropathy E11.[address] [address] July, Chronic pain syndrome G89.4 [facility] [address] [address] July, [facility] [id number] [address] July, Encounter for Medicare annual wellness exam [...] and Chronic systolic congestive heart failure I50.22 [facility] [address], [place] [address] July, Type 2 diabetes mellitus with diabetic polyneuropathy E11.42 [facility] [id number] [address] July, [facility] [address], [place] [address] July, Urinary hesitancy R39.11 [facility] [address], [place] [address] July, Chronic pain syndrome G89.4 [facility] [address] [address] Jun, Mass of shoulder region R22.30 [place] [id number] [place] [address] Jun, Mass of shoulder region R22.30 [facility] [address] [place] [address] Jun, Chronic pain syndrome G89.4 [place] [address] [place] [address] May, Type 2 diabetes mellitus with diabetic polyneuropathy E11.42 ; Mass of shoulder region R22.30 and Morbid obesity E66.01 [place] [address], [place] [address] 07 May, 2018 Chronic pain syndrome G89.4 [facility] [id number] [place] [address] 04 May, 2018 Mood disorder F39 ; Posttraumatic stress disorder F43.10 and Morbid obesity E66.01 [facility] [facility] [address] [address] 14 Apr, 2018 Major depressive disorder, recurrent episode, unspecified severity F33.9 [facility] [address] [address] 13 Apr, 2018 Major depressive disorder, recurrent episode, unspecified severity F33.9 [place] [address] [place] [address] 07 Apr, 2018 Chronic pain syndrome G89.4 [facility] [address], [place] [address] 14 Mar, 2018 Pain in right foot M79.671 ; Type 2 diabetes mellitus with diabetic polyneuropathy E11.42 ; Chronic pain syndrome G89.4 and BMI 50.0-59.9, adult Z68.43 [facility] [id number] [place] [address] Mar, [facility] [id number] [place] [address] Mar, [facility] [address] [address] Mar, Chronic pain syndrome G89.4 [place] [address] [address] Feb, Chronic pain syndrome G89.4 [facility] [facility] [id number] [place] [address] Jan, Obstructive sleep apnea syndrome G47.33 [facility] [id number] [place] [address] Jan, Type 2 diabetes mellitus with diabetic polyneuropathy E11.42 ; Chronic pain syndrome G89.4 ; Gastroesophageal reflux disease, esophagitis presence not specified K21.9 ; Essential hypertension I10 ; Pure hypercholesterolemia E78.00 ; Chronic prescription opiate use Z79.891 ; Obstructive sleep apnea syndrome G47.33 and BMI 50.0-59.9, adult Z68.43 [place] [id number] [place] [address] 20 Jan, 2018 History of weight loss surgery Z98.84 [place] [id number] [place] [address] Jan, [place] [address] [address] Jan, Chronic pain syndrome G89.4 [facility] [id number] [place] [address] Jan, [facility] [address] [address] Jan, [facility] [address] [place] [address] Dec, [facility] [id number] [place] [address] Dec, Chronic pain syndrome G89.4 [facility] [id number] [place] [address] Dec, Injury of left knee, subsequent encounter S89.92XD and Acute pain of left knee M25.562 [place] [facility] [id number] [place] [address] Dec, [facility] [id number] [place] [address] Dec, Injury of left knee, initial encounter S89.92XA and BMI 45.0-49.9, adult Z68.42 [facility] [id number] [place] [address] Nov, Chest discomfort R07.89 ; Shortness of breath R06.02 ; Chronic systolic congestive heart failure I50.22 and Type 2 diabetes mellitus with diabetic polyneuropathy E11.42 [facility] [id number] [place] [address] Nov, Chronic pain syndrome G89.4 [facility] [id number] [place] [address] Oct, BMI 45.0-49.9, adult Z68.42 ; Type 2 diabetes mellitus with diabetic polyneuropathy E11.42 ; Chronic pain syndrome G89.4 ; Gastroesophageal reflux disease, esophagitis presence not specified K21.9 ; Decreased pedal pulses R09.89 and Precordial pain R07.2 [place] [address] [place] [address] Oct, [facility] [id number] [place] [address] Oct, Mood disorder F39 [address], [place] [address] Oct, Mood disorder F39 ; Posttraumatic stress disorder F43.10 and BMI 45.0-49.9, adult Z68.42 [place] [address], [place] [address] Sep, Primary osteoarthritis of both knees M17.0 and Chronic pain syndrome G89.4 [facility] [address], [place] [address] Sep, Mood disorder F39 and Posttraumatic stress disorder F43.10 [facility] [id number] [place] [address] Aug, Primary osteoarthritis of both knees M17.0 and Chronic pain syndrome G89.4 [facility] [id number] [place] [address] July, Primary osteoarthritis of both knees M17.0 and Chronic pain syndrome G89.4 [facility] [facility] [address] [place] [address] July, Type 2 diabetes mellitus with diabetic polyneuropathy E11.42 ; Essential hypertension I10 ; Pure hypercholesterolemia E78.0 ; Chronic prescription opiate use Z79.891 ; Tobacco abuse Z72.0 ; Primary osteoarthritis of both knees M17.0 ; Primary insomnia F51.01 and BMI 45.0-49.9, adult Z68.42 [place] [address] [place] [address] July, Medicare annual wellness visit, initial Z00.00 [...] specified K21.9 and Encounter for immunization Z23 [facility] [place] [facility] [id number] [place] [address] July, Primary osteoarthritis of both knees M17.0 and Chronic pain syndrome G89.4 [facility] [id number] [place] [address] Jun, Infection of right ear H66.91 ; Wheezing on auscultation R06.2 and BMI 45.0-49.9, adult Z68.42 [facility] [id number] [place] [address] Jun, [place] [address] [address] Jun, Primary osteoarthritis of both knees M17.0 and Chronic pain syndrome G89.4 [facility] [id number] [place] [address] May, [facility] [id number] [place] [address] May, BMI 45.0-49.9, adult Z68.42 ; Mood disorder F39 and Posttraumatic stress disorder F43.10 [place] [id number] [place] [address] May, [facility] [id number] [place] [address] May, Primary osteoarthritis of both knees M17.0 and Chronic pain syndrome G89.4 [facility] [id number] [place] [address] May, Mood disorder F39 [facility] [id number] [place] [address] Apr, Type 2 diabetes mellitus with diabetic polyneuropathy E11.42 [facility] [id number] [place] [address] Apr, [facility] [address] [place] [address] Apr, Primary osteoarthritis of both knees M17.0 and Chronic pain syndrome G89.4 [facility] [id number] [place] [address] Apr, Mood disorder F39 [facility] [address] [place] [address] Mar, Mood disorder F39 and Posttraumatic stress disorder F43.10 [facility] [id number] [place] [address] Mar, Primary osteoarthritis of both knees M17.0 and Chronic pain syndrome G89.4 [facility] [id number] [place] [address] Feb, Primary osteoarthritis of both knees M17.0 and Chronic pain syndrome G89.4 [facility] [id number] [place] [address] Feb, Mood disorder F39 [facility] [id number] [place] [address] Jan, Type 2 diabetes mellitus with diabetic polyneuropathy E11.42 ; Primary osteoarthritis of both knees M17.0 ; Mood disorder F39 ; Obesity, morbid, BMI 40.0-49.9 E66.01 ; Chronic prescription opiate use Z79.891 ; Acute suppurative otitis media of both ears without spontaneous rupture of tympanic membranes, recurrence not specified H66.003 and BMI 45.0-49.9, adult Z68.42 [facility] [address] [place] [address] Jan, Primary osteoarthritis of both knees M17.0 and Chronic pain syndrome G89.4 [facility] [address] [place] [address] Dec, Mood disorder F39 and Posttraumatic stress disorder F43.10 [facility] [id number] [place] [address] Dec, Primary osteoarthritis of both knees M17.0 and Chronic pain syndrome G89.4 [facility] [address] [place] [address] 18 Nov, 2016 Chronic pain syndrome G89.4 [facility] [id number] [place] [address] 15 Nov, 2016 Primary osteoarthritis of both knees M17.0 and Chronic pain syndrome G89.4 [facility] [id number] [place] [address] 13 Nov, 2016 Type 2 diabetes mellitus with diabetic polyneuropathy E11.42 and Chronic pain syndrome G89.4 [facility] [id number] [place] [address] 12 Nov, 2016 Posttraumatic stress disorder F43.10 and Mood disorder F39 [facility] [id number] [place] [address] Oct, Chronic pain syndrome G89.4 [facility] [id number] [place] [address] Oct, Type 2 diabetes mellitus with diabetic polyneuropathy E11.42 ; BMI 45.0-49.9, adult Z68.42 ; Primary osteoarthritis of both knees M17.0 and Skin lesion L98.9 [facility] [address] [place] [address] Oct, Chronic pain syndrome G89.4 [facility] [address] [place] [address] Sep, Chronic pain syndrome G89.4 [facility] [address] [place] [address] Sep, [facility] [id number] [place] [address] Sep, Chronic pain syndrome G89.4 [facility] [address] [place] [address] Aug, Chronic pain syndrome G89.4 [facility] [address], [place] [address] Aug, [facility] [id number] [place] [address] Aug, Macrocytosis D75.89 and Pure hypercholesterolemia E78.0 [facility] [id number] [place] [address] Aug, Pure hypercholesterolemia E78.0 [facility] [address] [place] [address] Aug, Macrocytosis D75.89 [facility] [id number] [place] [address] Aug, Pure hypercholesterolemia E78.0 ; Type 2 diabetes mellitus with diabetic polyneuropathy E11.42 ; MITCHELL treated with BiPAP G47.33 and Chronic pain syndrome G89.4 [facility] [id number] [place] [address] Aug, [facility] [id number] [place] [address] Aug, Hemorrhoids, unspecified hemorrhoid type K64.9 [facility] [address], [place] [address] Aug, Chronic pain syndrome G89.4 ; Type 2 diabetes mellitus with diabetic polyneuropathy E11.42 ; Hemorrhoids, unspecified hemorrhoid type K64.9 ; Tobacco abuse Z72.0 and Primary osteoarthritis of both knees M17.0 [facility] [address], [place] [address] July, Chronic pain syndrome G89.4 [facility] [address] [place] [address] July, [facility] [address], [place] [address] Jun, Chronic pain syndrome G89.4 [facility] [address] [place] [address] Jun, Chronic pain syndrome G89.4 [facility] [id number] [place] [address] Jun, Severe major depression with psychotic features F32.3 and Posttraumatic stress disorder F43.10 [facility] [id number] [place] [address] Jun, Chronic pain syndrome G89.4 [facility] [id number] [place] [address] Jun, [facility] [id number] [place] [address] May, Chronic pain syndrome G89.4 [facility] [id number] [place] [address] May, Tobacco abuse Z72.0 [facility] [id number] [place] [address] May, [facility] [id number] [place] [address] Apr, Chronic pain syndrome G89.4 [facility] [address] [place] [address] Apr, [facility] [id number] [place] [address] Apr, Right foot pain M79.671 [facility] [address] [place] [address] Mar, Type 2 diabetes mellitus with diabetic polyneuropathy E11.42 ; MITCHELL treated with BiPAP G47.33 ; Pure hypercholesterolemia E78.0 ; Chronic pain syndrome G89.4 ; Tobacco abuse Z72.0 and Obesity, morbid, BMI 40.0-49.9 E66.01 [facility] [id number] [place] [address] Mar, [facility] [address], [place] [address] Mar, [facility] [address], [place] [address] Mar, [facility] [address], [place] [address] Mar, [facility] [id number] [place] [address] Mar, [facility] [address], [place] [address] Mar, Severe major depression with psychotic features F32.3 and Posttraumatic stress disorder F43.10 [facility] [address], [place] [address] Mar, [facility] [id number] [place] [address] Feb, [facility] [address], [place] [address] Feb, [facility] [address], [place] [address] Jan, [facility] [address], [place] [address] Jan, [facility] [address], [place] [address] Dec, Posttraumatic stress disorder F43.10 and Severe major depression with psychotic features F32.3 [facility] [address], [place] [address] Dec, Type 2 diabetes mellitus with diabetic polyneuropathy E11.42 ; Chronic pain syndrome G89.4 and Acute right-sided low back pain with right-sided sciatica M54.41 [facility] [address], [place] [address] Dec, [facility] [address], [place] [address] Dec, [facility] [id number] [place] [address] Nov, [facility] [id number] [place] [address] Nov, [facility] [id number] [place] [address] Nov, [facility] [id number] [place] [address] Oct, [facility] [id number] [place] [address] Oct, [facility] [id number] [place] [address] Sep, Dental examination Z01.20 [facility] [id number] [place] [address] Sep, [facility] [id number] [place] [address] Sep, Type 2 diabetes mellitus with diabetic polyneuropathy E11.42 ; Chronic pain syndrome G89.4 ; Chronic prescription opiate use Z79.891 ; Injury of right index finger, sequela S69.91XS and Anejaculation N50.8 [facility] [id number] [place] [address] Aug, [facility] [id number] [place] [address] Aug, [facility] [id number] [place] [address] Aug, Cellulitis of finger of right hand L03.011 [facility] [address] [place] [address] July, [facility] [address] [address] July, [facility] [address], [place] [address] Jun, Onychomycosis B35.1 [facility] [address] [address] Jun, Severe major depression with psychotic features F32.3 and Posttraumatic stress disorder F43.10 [facility] [id number] [place] [address] Jun, [facility] [address] [place] [address] Jun, [facility] [address] [place] [address] Jun, [facility] [id number] [place] [address] May, Type 2 diabetes mellitus with diabetic polyneuropathy E11.42 [facility] [address], [place] [address] May, Type 2 diabetes mellitus with diabetic polyneuropathy E11.42 and Urinary hesitancy R39.11 [facility] [address] [address] May, Type 2 diabetes mellitus with diabetic polyneuropathy E11.42 ; Left hip pain M25.552 and Benign prostatic hyperplasia with lower urinary tract symptoms, unspecified morphology N40.1 [facility] [address] [address] May, [facility] [id number] [place] [phone] Apr, Severe major depression with psychotic features F32.3 and Posttraumatic stress disorder F43.10 [facility] [address] [address] Apr, [facility] [id number] [address] Mar, [facility] [id number] [place] [phone] Mar, Dysuria R30.0 and Urinary hesitancy R39.11 [facility] [id number] [place] [phone] Mar, Onychomycosis B35.1 [facility] [id number] [place] [id number] Mar, [facility] [id number] [place] [phone] Feb, [facility] [id number] [place] [phone] Jan, [facility] [id number] [place] [phone] Jan, Posttraumatic stress disorder F43.10 and Severe major depression with psychotic features F32.3 [facility] [id number] [place] [phone] Jan, [facility] [id number] [place] [id number] Jan, Chronic pain syndrome G89.4 ; Type 2 diabetes mellitus with diabetic polyneuropathy E11.42 ; Decreased pedal pulses R09.89 and Paresthesia of both hands R20.2 [facility] [id number] [place] [address] Dec, Posttraumatic stress disorder F43.10 and Severe major depression with psychotic features F32.3 [facility] [id number] [place] [address] Dec, [facility] [id number] [place] [address] Dec, [facility] [id number] [place] [address] Dec, Onychomycosis B35.1 [facility] [id number] [place] [address] Dec, [facility] [id number] [place] [address] Dec, [facility] [id number] [place] [address] Nov, [facility] [id number] [place] [address] Oct, Depression, major, recurrent, moderate 296.32 and Posttraumatic stress disorder 309.81 [place] [id number] [place] [address] Oct, [facility] [id number] [place] [address] Oct, [place] [id number] [place] [address] Oct, [facility] [id number] [place] [address] Sep, Posttraumatic stress disorder 309.81 and Depression, major, recurrent, moderate 296.32 [place] [id number] [place] [address] Sep, [place] [id number] [place] [address] Sep, Chronic airway obstruction, not elsewhere classified [id number] [place] [address] Sep, Onychomycosis 110.1 and DM neuro manif type II 250.60 [place] [id number] [place] [address] Sep, Chronic pain 338.29 ; Chronic airway obstruction, not elsewhere classified 496 ; Osteoarthritis of knees, bilateral 715.96 and On potassium wasting diuretic therapy V58.[address] [place] [address] Sep, Insect bites 919.4 ; Sinusitis 473.9 and GERD (gastroesophageal reflux disease) 530.81 [facility] [id number] [address] Aug, Depression, major, recurrent, moderate 296.32 and Posttraumatic stress disorder 309.81 [facility] [id number] [place] [address] Aug, [facility] [id number] [place] [address] Aug, [facility] [id number] [place] [address] Aug, [facility] [id number] [place] [address] July, Major depressive disorder, recurrent episode, moderate 296.32 and Posttraumatic stress disorder 309.81 [facility] [address] [address] July, [facility] [id number] [place] [address] July, [facility] [id number] [address] July, [facility] [address] [address] July, [facility] [id number] [address] Jun, [facility] [address] [address] Jun, [facility] [address] [address] May, [facility] [address] [address] May, [facility] [id number] [place] [address] 18 May, 2014 [facility] [place] [facility] [address] [id number] [place] [address] May, 2014 [facility] [place] [facility] [address] [id number] [place] [address] May, 2014 [facility] [place] [facility] [address] [id number] [place] [address] May, 2014 [facility] [place] [facility] [address] [id number] [place] [address] May, 2014 [facility] [place] [facility] [address] [id number] [place] [address] May, [facility] [place] [facility] [address] [facility] [id number] [place] [address] May, [facility] [place] [facility] [address] [facility] [id number] [place] [address] Apr, 2014 [facility] [place] [facility] [address] [facility] [id number] [place] [address] Apr, 2014 [facility] [place] [facility] [address] [facility] [id number] [place] [address] Apr, 2014 [facility] [place] [facility] [address] [facility] [id number] [place] [address] Apr, 2014 [facility] [place] [facility] [address] [facility] [id number] [place] [address] Apr, 2014 [facility] [place] [facility] [address] [facility] [id number] [place] [address] Apr, 2014 [facility] [place] [facility] [address] [facility] [id number] [place] [address] Apr, 2014 [facility] [place] [facility] [address] [facility] [id number] [place] [address] Apr, 2014 [facility] [place] [facility] [address] [facility] [id number] [place] [address] 04 Apr, 2014 [facility] [place] [facility] [address] [id number] [place] [address] 30 Mar, 2014 [facility] [place] [facility] [address] [id number] [place] [address] 30 Mar, 2014 [facility] [place] [facility] [address] [id number] [place] [address] Mar, [facility] [place] [facility] [address] [id number] [place] [address] Mar, [facility] [place] [facility] [address] [id number] [place] [address] Mar, [facility] [place] [facility] [address] [id number] [place] [address] 15 Mar, 2014 [facility] [place] [facility] [address] [id number] [place] [address] Mar, [facility] [place] [facility] [address] [id number] [place] [address] 15 Mar, 2014 [facility] [place] [facility] [address] [id number] [place] [address] Mar, [facility] [place] [facility] [address] [id number] [place] [address] 15 Mar, 2014 [facility] [place] [facility] [address] [id number], [place] [address] 14 Mar, 2014 [facility] [place] [facility] [address] [id number], [place] [address] 14 Mar, 2014 [facility] [place] [facility] [address] [id number] [place] [address] Mar, [facility] [place] [facility] [address] [id number] [place] [address] 14 Mar, 2014 [facility] [place] [facility] [address] [id number] [place] [address] 14 Mar, 2014 [facility] [place] [facility] [address] [id number] [place] [address] 14 Mar, 2014 [facility] [address] [id number] [place] [address] 09 Mar, 2014 [facility] [place] [facility] [address] [id number] [place] [address] 09 Mar, 2014 [facility] [address] [id number] [place] [address] 16 Feb, 2014 [facility] [place] [facility] [address] [id number] [place] [address] 16 Feb, 2014 [facility] [address] [id number] [place] [address] 15 Feb, 2014 [facility] [place] [facility] [address] [id number] [place] [address] 15 Feb, 2014 [facility] [place] [facility] [address] [id number] [place] [address] 15 Feb, 2014 [facility] [address] [id number] [place] [address] 15 Feb, 2014 [facility] [place] [facility] [address] [id number] [place] [address] Jan, [facility] [address] [id number] [place] [address] Jan, [facility] [place] [facility] [address] [id number] [place] [address] Jan, [facility] [place] [facility] [address] [id number] [place] [address] Jan, [facility] [place] [facility] [address] [id number] [place] [address] Jan, [facility] [place] [facility] [address] [id number] [place] [address] Jan, [facility] [place] [facility] [address] [id number] [place] [address] Jan, [facility] [place] [facility] [address] [id number] [place] [address] Jan, [facility] [place] [facility] [address] [id number] [place] [address] Jan, [facility] [place] [facility] [address] [id number] [place] [address] Jan, [facility] [place] [facility] [address] [id number] [place] [address] Dec, [facility] [place] [facility] [address] [id number] [place] [address] Dec, [facility] [place] [facility] [address] [id number] [place] [address] Dec, [facility] [place] [facility] [address] [id number] [place] [address] Dec, [facility] [place] [facility] [address] [id number] [place] [address] 16 Nov, 2013 [facility] [place] [facility] [address] [id number] [place] [address] 16 Nov, 2013 [facility] [place] [facility] [address] [id number], [place] [address] Nov, [facility] [place] [facility] [address] [id number], [place] [address] Nov, [facility] [place] [facility] [address] [id number], [place] [address] Nov, 2013 [facility] [place] [facility] [address] [id number] [place] [address] Nov, [facility] [place] [facility] [address] [id number] [place] [address] Oct, [facility] [place] [facility] [address] [id number], [place] [address] Oct, [facility] [place] [facility] [address] [id number], [place] [address] Oct, [facility] [place] [facility] [address] [id number] [place] [address] Oct, [facility] [place] [facility] [address] [id number] [place] [address] Sep, [facility] [place] [facility] [address] [id number] [place] [address] Sep, [facility] [place] [facility] [address] [id number] [place] [address] Sep, [facility] [place] [facility] [address] [id number] [place] [address] Sep, [facility] [place] [facility] [address] [id number] [place] [address] Sep, [facility] [place] [facility] [address] [id number] [place] [address] Sep, [facility] [place] [facility] [address] [id number] [place] [address] July, [facility] [place] [facility] [address] [id number] [place] [address] July, [facility] [place] [facility] [address] [id number] [place] [address] July, [facility] [place] [facility] [address] [id number] [place] [address] July, [facility] [place] [facility] [address] [id number] [place] [address] Jun, [facility] [place] [facility] [address] [id number] [place] [address] Jun, [facility] [place] [facility] [address] [id number] [place] [address] Jun, [facility] [place] [facility] [address] [id number] [place] [address] Jun, [facility] [place] [facility] [address] [id number] [place] [address] Jun, [facility] [place] [facility] [address] [id number] [place] [address] Jun, [facility] [place] [facility] [address] [id number] [place] [address] May, [facility] [place] [facility] [address] [id number] [place] [address] May, [facility] [place] [facility] [address] [id number] [place] [address] Apr, [facility] [place] [facility] [address] [id number] [place] [address] Apr, [facility] [place] [facility] [address] [facility] [id number] [place] [address] Apr, [facility] [place] [facility] [address] [facility] [id number] [place] [address] Apr, [facility] [place] [facility] [address] [facility] [id number] [place] [address] Apr, [facility] [place] [facility] [address] [facility] [id number] [place] [address] Apr, [facility] [place] [facility] [address] [facility] [id number] [place] [address] Apr, [facility] [place] [facility] [address] [id number], [place] [address] Mar, [facility] [place] [facility] [address] [id number] [place] [address] Mar, [facility] [place] [facility] [address] [id number] [place] [address] Mar, [facility] [place] [facility] [address] [facility] [id number], [place] [address] Mar, [facility] [place] [facility] [address] [facility] [id number], [place] [address] Mar, [facility] [address] [id number] [place] [address] Mar, [facility] [place] [facility] [address] [id number] [place] [address] Mar, [facility] [place] [facility] [address] [facility] [id number] [place] [address] Mar, [facility] [place] [facility] [address] [id number] [place] [address] Feb, [facility] [place] [facility] [address] [id number] [place] [address] Feb, [facility] [place] [facility] [address] [id number] [place] [address] Feb, [facility] [place] [facility] [address] [facility] [id number] [place] [address] Feb, [facility] [place] [facility] [address] [id number] [place] [address] Feb, [facility] [place] [facility] [address] [facility] [id number] [place] [address] Feb, [facility] [place] [facility] [address] [facility] [id number] [place] [address] Feb, [facility] [place] [facility] [address] [id number] [place] [address] Jan, [facility] [place] [facility] [address] [id number] [place] [address] Jan, [facility] [place] [facility] [address] [id number] [place] [address] Jan, [facility] [place] [facility] [address] [id number] [place] [address] Jan, [facility] [place] [facility] [address] [facility] [id number] [place] [address] Jan, [facility] [place] [facility] [address] [id number] [place] [address] Jan, [facility] [place] [facility] [address] [id number] [place] [id number] Jan, [facility] [place] [facility] [address] [id number] [place] [address] Jan, [facility] [address] [id number] [place] [address] Dec, [facility] [place] [facility] [address] [id number] [place] [address] Dec, [facility] [address] [id number] [place] [address] Dec, [facility] [address] [id number] [place] [address] Dec, [facility] [address] [id number] [place] [address] Dec, [facility] [address] [id number], [place] [address] Dec, [facility] [address] [id number] [place] [address] Dec, [facility] [address] [id number], [place] [address] Dec, [facility] [place] [facility] [address] [id number], [place] [address] Dec, [facility] [place] [facility] [address] [id number], [place] [address] Dec, [facility] [place] [facility] [address] [id number] [place] [address] Nov, [facility] [place] [facility] [address] [id number][place] [address] Nov, [facility] [place] [facility] [address] [id number], [place] [address] 24 Nov, 2012 [facility] [place] [facility] [address] [id number] [place] [address] 20 Nov, 2012 [facility] [place] [facility] [address] [id number] [place] [address] Nov, [facility] [place] [facility] [address] [id number] [place] [address] Nov, [facility] [place] [facility] [address] [id number] [place] [address] 10 Nov, 2012 [facility] [place] [facility] [address] [id number] [place] [address] Nov, [facility] [place] [facility] [address] [id number] [place] [address] Oct, [facility] [place] [facility] [address] [id number] [place] [address] Oct, [facility] [place] [facility] [address] [id number] [place] [address] Oct, [facility] [place] [facility] [address] [id number] [place] [address] Sep, [facility] [place] [facility] [address] [id number] [place] [address] Sep, [facility] [place] [facility] [address] [id number] [place] [address] Sep, [facility] [place] [facility] [address] [id number] [place] [address] Sep, [facility] [place] [facility] [address] [id number] [place] [address] Sep, [facility] [place] [facility] [address] [id number] [place] [address] Aug, [facility] [place] [facility] [address] [id number] [place] [address] Aug, [facility] [place] [facility] [address] [id number] [place] [address] Aug, [facility] [address] [id number] [place] [address] Aug, [facility] [place] [facility] [address] [id number] [place] [address] Aug, [facility] [address] [id number] [place] [address] Aug, [facility] [place] [facility] [address] [id number] [place] [address] July, [facility] [address] [id number] [place] [address] July, [facility] [address] [id number] [place] [address] July, [facility] [address] [id number] [place] [address] July, [facility] [place] [facility] [address] [id number] [place] [address] July, [facility] [address] [id number] [place] [address] July, [facility] [place] [facility] [address] [id number] [place] [address] Jun, [facility] [place] [facility] [address] [id number] [place] [address] Jun, [facility] [place] [facility] [address] [id number] [place] [address] Jun, [facility] [place] [facility] [address] [id number] [place] [address] Jun, [facility] [place] [facility] [address] [id number] [place] [address] May, [facility] [place] [facility] [address] [id number] [place] [address] May, [facility] [place] [facility] [address] [id number] [place] [address] 06 May, 2012 [facility] [address] [id number] [place] [address] Apr, [facility] [address] [id number] [place] [address] Mar, [facility] [address] [id number] [place] [address] 18 Mar, 2012 [facility] [address] [id number] [place] [address] 17 Mar, 2012 [facility] [address] [id number] [place] [address] 16 Mar, 2012 [facility] [address] [id number] [place] [address] 15 Mar, 2012 [facility] [address] [id number] [place] [address] Feb, [facility] [address] [id number] [place] [address] 31 Feb, 2012 [facility] [address] [id number] [place] [address] Feb, [facility] [address] [facility] [id number] [place] [address] 17 Feb, 2012 [facility] [address] [id number] [place] [address] Jan, [facility] [address] [id number] [place] [address] Jan, [facility] [address] [id number] [place] [address] Jan, [facility] [address] [id number] [place] [address] Jan, [facility] [address] [id number] [place] [address] Dec, [facility] [address] [id number] [place] [address] Dec, [facility] [address] [id number] [place] [address] Nov, [facility] [address] [id number] [place] [address] Oct, [facility] [address] [id number] [place] [address] Oct, [facility] [address] [id number] [place] [address] Oct, [facility] [address] [id number] [place] [address] Oct, [facility] [address] [id number] [place] [address] Oct, [facility] [address] [id number] [place] [address] Sep, [facility] [address] [id number] [place] [address] Sep, [facility] [address] [id number] [place] [address] Aug, [address] [id number] Aug, [facility] [address] [id number] [place] [address] Aug, [facility] [address] [id number] [place] [address] July, [facility] [place] [facility] [address] [id number] [place] [address] July, [facility] [address] [id number] [place] [address] Jun, [facility] [address] [id number] [place] [address] 23 Jun, 2011 [facility] [place] [facility] [address] [id number] [place] [address] 16 Jun, 2011 [facility] [place] [facility] [address] [id number] [place] [address] Jun, [facility] [place] [facility] [address] [id number] [place] [address] 15 Apr, 2011 [facility] [place] [facility] [address] [id number] [place] [address] 15 Apr, 2011 [facility] [place] [facility] [address] [id number] [place] [address] Apr, [facility] [place] [facility] [address] [id number] [place] [address] Mar, [facility] [place] [facility] [address] [id number] [place] [address] Mar, [facility] [place] [facility] [address] [id number] [place] [address] Mar, [facility] [place] [facility] [address] [id number] [place] [address] Mar, [facility] [place] [facility] [address] [id number] [place] [address] Mar, [facility] [place] [facility] [address] [id number] [place] [address] Jan, [facility] [place] [facility] [address] [id number] [place] [address] Jan, [facility] [place] [facility] [address] [id number] [place] [address] Jan, [facility] [place] [facility] [address] [id number] [place] [address] Mar, [facility] [place] [facility] [address] [id number] [place] [address] Mar, [facility] [place] [facility] [address] [id number] [place] [address] 20 Feb, 2010 [facility] [address] [id number] [place] [address] 16 Feb, 2010 [facility] [address] [id number] [place] [address] 16 Feb, 2010 [facility] [address] [facility] [id number] [place] [address] 17 Jan, 2010 [facility] [address] [id number] [place] [address] 17 Jan, 2010 [facility] [address] [facility] [id number] [place] [address], [place] [address] 19 Dec, 2009 [facility] [address] [facility] [id number] [place] [address] 19 Dec, 2009 [facility] [address] [facility] [id number] [place] [address] 10 May, 2009 [facility] [address] [facility] [id number] [place] [address] 10 Apr, 2009 [facility] [address] [facility] [id number] [place] [address] 07 Feb, 2009 [facility] [address] [facility] [id number] [address] 03 Feb, 2009 [facility] [address] [facility] [facility] [id number] [place] [address] 30 Jan[facility] 2009 [facility] [address] [facility] [id number], [place] [address] Jan[facility] [address] [facility] [id number] [place] [address] Jan, [facility] [address] [facility] [id number] [place] [address] Jan[facility] [address] [facility] [id number], [place] [address] Jan, IMMUNIZATIONS No Known Immunizations SOCIAL HISTORY Never Assessed REASON FOR VISIT PLAN OF CARE VITAL SIGNS MEDICATIONS Unknown Medications RESULTS No Results PROCEDURES Procedure Date Ordered Result Body Site SLEEP STUDY, UNATTENDED Mar 28, 2014 INSTRUCTIONS MEDICATIONS ADMINISTERED No Known Medications [...]
--- OUTSIDE RECORDS SUMMARY | 2018-10-04 07:08 | XMS REPORT ---
Author Author ESTHER CHAVEZ [facility] Address [address] [place] [address] Care Team Providers Care Sex Therapist Name Role Phone KATHYCIARA VILLEGASHANY Unavailable PROBLEMS Type Condition ICD9-CM Code NCT79-NP Code Onset Dates Condition Status SNOMED Code Problem MITCHELL treated with BiPAP G47.33 Active 05592603 Problem Type 2 diabetes mellitus with diabetic polyneuropathy E11.42 Active 263020659 Problem History of DVT (deep vein thrombosis) Z86.718 Active 618277562 Problem History of weight loss surgery Z98.84 Active 882856121 Problem Chronic systolic (congestive) heart failure I50.22 Active 082861398 Problem Essential hypertension I10 Active 46134975 Problem Chronic prescription opiate use Z79.891 Active 736404815 Problem Primary osteoarthritis of both knees M17.0 Active 758672800 Problem Chronic pain syndrome G89.4 Active 284900185 Problem Nocturnal hypoxia G47.34 Active 881939579 Problem Obesity, morbid, BMI 40.0-49.9 E66.01 Active 114079688 Problem Tobacco abuse Z72.0 Active 541300737 Problem Macrocytosis D75.89 Active 296442782 Problem Pure hypercholesterolemia E78.00 Active 865633953 Problem Posttraumatic stress disorder F43.10 Active 21149046 Problem Non-ischemic cardiomyopathy I42.9 Active 90214897 Problem Obstructive sleep apnea syndrome G47.33 Active 66615811 Problem Acute right-sided low back pain with right-sided sciatica M54.41 Active 47098613 Problem Gastroesophageal reflux disease, esophagitis presence not specified K21.9 Active 137356559 Problem Chronic obstructive pulmonary disease, unspecified COPD type J44.9 Active 62109833 Problem BMI 45.0-49.9, adult Z68.42 Active 531417924 Problem Mild episode of recurrent major depressive disorder F33.0 Active 473910469 Problem Mood disorder F39 Active 82690872 Problem Primary insomnia F51.01 Active 2968005 ALLERGIES No Information ENCOUNTERS Encounter Location Date Diagnosis [facility] [address] [address] Oct, [facility] [address] [address] Sep, Type 2 diabetes mellitus with diabetic polyneuropathy E11.42 [facility] [address] [address] Aug, Chronic pain syndrome G89.4 [facility] [address] [address] Aug, [facility] [address] [place] [address] Aug, Type 2 diabetes mellitus with diabetic polyneuropathy E11.[address] [address] July, Chronic pain syndrome G89.4 [facility] [address] [address] July, [facility] [id number] [address] July, Encounter for Medicare annual wellness exam [...] and Chronic systolic congestive heart failure I50.22 [facility] [address], [place] [address] July, Type 2 diabetes mellitus with diabetic polyneuropathy E11.42 [facility] [id number] [address] July, [facility] [address], [place] [address] July, Urinary hesitancy R39.11 [facility] [address], [place] [address] July, Chronic pain syndrome G89.4 [facility] [address], [place] [address] Jun, Mass of shoulder region R22.30 [facility] [id number] [place] [address] Jun, Mass of shoulder region R22.30 [facility] [address] [place] [address] Jun, Chronic pain syndrome G89.4 [facility] [address] [place] [address] May, Type 2 diabetes mellitus with diabetic polyneuropathy E11.42 ; Mass of shoulder region R22.30 and Morbid obesity E66.01 [facility] [address] [address] 07 May, 2018 Chronic pain syndrome G89.4 [facility] [id number] [place] [address] 04 May, 2018 Mood disorder F39 ; Posttraumatic stress disorder F43.10 and Morbid obesity E66.01 [facility] [address], [place] [address] 14 Apr, 2018 Major depressive disorder, recurrent episode, unspecified severity F33.9 [facility] [address], [place] [address] 13 Apr, 2018 Major depressive disorder, recurrent episode, unspecified severity F33.9 [facility] [address] [place] [address] 07 Apr, 2018 Chronic pain syndrome G89.4 [facility] [address] [address] 14 Mar, 2018 Pain in right foot M79.671 ; Type 2 diabetes mellitus with diabetic polyneuropathy E11.42 ; Chronic pain syndrome G89.4 and BMI 50.0-59.9, adult Z68.43 [facility] [id number] [place] [address] Mar, [facility] [id number] [place] [address] Mar, [facility] [address] [address] Mar, Chronic pain syndrome G89.4 [facility] [address] [address] Feb, Chronic pain syndrome G89.4 [facility] [id number] [place] [address] Jan, Obstructive sleep apnea syndrome G47.33 [facility] [id number] [place] [address] Jan, Type 2 diabetes mellitus with diabetic polyneuropathy E11.42 ; Chronic pain syndrome G89.4 ; Gastroesophageal reflux disease, esophagitis presence not specified K21.9 ; Essential hypertension I10 ; Pure hypercholesterolemia E78.00 ; Chronic prescription opiate use Z79.891 ; Obstructive sleep apnea syndrome G47.33 and BMI 50.0-59.9, adult Z68.43 [facility] [id number] [place] [address] 20 Jan, 2018 History of weight loss surgery Z98.84 [facility] [id number] [place] [address] Jan, [facility] [address] [address] Jan, Chronic pain syndrome G89.4 [facility] [id number] [place] [address] Jan, [facility] [address] [address] Jan, [facility] [address] [place] [address] Dec, [facility] [id number] [place] [address] Dec, Chronic pain syndrome G89.4 [facility] [id number] [place] [address] Dec, Injury of left knee, subsequent encounter S89.92XD and Acute pain of left knee M25.562 [facility] [id number] [place] [address] Dec, [facility] [id number] [place] [address] Dec, Injury of left knee, initial encounter S89.92XA and BMI 45.0-49.9, adult Z68.42 [facility] [id number] [place] [address] Nov, Chest discomfort R07.89 ; Shortness of breath R06.02 ; Chronic systolic congestive heart failure I50.22 and Type 2 diabetes mellitus with diabetic polyneuropathy E11.42 [facility] [id number] [place] [address] Nov, Chronic pain syndrome G89.4 [facility] [id number] [place] [address] Oct, BMI 45.0-49.9, adult Z68.42 ; Type 2 diabetes mellitus with diabetic polyneuropathy E11.42 ; Chronic pain syndrome G89.4 ; Gastroesophageal reflux disease, esophagitis presence not specified K21.9 ; Decreased pedal pulses R09.89 and Precordial pain R07.2 [facility] [address] [place] [address] Oct, [facility] [id number] [place] [address] Oct, Mood disorder F39 [address], [place] [address] Oct, Mood disorder F39 ; Posttraumatic stress disorder F43.10 and BMI 45.0-49.9, adult Z68.42 [facility] [address], [place] [address] Sep, Primary osteoarthritis of both knees M17.0 and Chronic pain syndrome G89.4 [facility] [address] [address] Sep, Mood disorder F39 and Posttraumatic stress disorder F43.10 [facility] [id number] [place] [address] Aug, Primary osteoarthritis of both knees M17.0 and Chronic pain syndrome G89.4 [facility] [id number] [place] [address] July, Primary osteoarthritis of both knees M17.0 and Chronic pain syndrome G89.4 [facility] [address] [place] [address] July, Type 2 diabetes mellitus with diabetic polyneuropathy E11.42 ; Essential hypertension I10 ; Pure hypercholesterolemia E78.0 ; Chronic prescription opiate use Z79.891 ; Tobacco abuse Z72.0 ; Primary osteoarthritis of both knees M17.0 ; Primary insomnia F51.01 and BMI 45.0-49.9, adult Z68.42 [facility] [address] [place] [address] July, Medicare annual wellness visit, initial Z00.00 [...] immunization Z23 [facility] [place] [facility] [id number] [place] [address] July, Primary osteoarthritis of both knees M17.0 and Chronic pain syndrome G89.4 [facility] [id number] [place] [address] Jun, Infection of right ear H66.91 ; Wheezing on auscultation R06.2 and BMI 45.0-49.9, adult Z68.42 [facility] [id number] [place] [address] Jun, [place] [place] [address] [address] Jun, Primary osteoarthritis of both knees M17.0 and Chronic pain syndrome G89.4 [facility] [id number] [place] [address] May, [facility] [id number] [place] [address] May, BMI 45.0-49.9, adult Z68.42 ; Mood disorder F39 and Posttraumatic stress disorder F43.10 [facility] [id number] [place] [address] May, [facility] [id number] [place] [address] May, Primary osteoarthritis of both knees M17.0 and Chronic pain syndrome G89.4 [facility] [id number] [place] [address] May, Mood disorder F39 [facility] [id number] [place] [address] Apr, Type 2 diabetes mellitus with diabetic polyneuropathy E11.42 [facility] [id number] [place] [address] Apr, [facility] [address] [place] [address] Apr, Primary osteoarthritis of both knees M17.0 and Chronic pain syndrome G89.4 [facility] [id number] [place] [address] Apr, Mood disorder F39 [facility] [address] [place] [address] Mar, Mood disorder F39 and Posttraumatic stress disorder F43.10 [facility] [id number] [place] [address] Mar, Primary osteoarthritis of both knees M17.0 and Chronic pain syndrome G89.4 [facility] [id number] [place] [address] Feb, Primary osteoarthritis of both knees M17.0 and Chronic pain syndrome G89.4 [facility] [id number] [place] [address] Feb, Mood disorder F39 [facility] [id number] [place] [address] Jan, Type 2 diabetes mellitus with diabetic polyneuropathy E11.42 ; Primary osteoarthritis of both knees M17.0 ; Mood disorder F39 ; Obesity, morbid, BMI 40.0-49.9 E66.01 ; Chronic prescription opiate use Z79.891 ; Acute suppurative otitis media of both ears without spontaneous rupture of tympanic membranes, recurrence not specified H66.003 and BMI 45.0-49.9, adult Z68.42 [facility] [address] [place] [address] Jan, Primary osteoarthritis of both knees M17.0 and Chronic pain syndrome G89.4 [facility] [address] [place] [address] Dec, Mood disorder F39 and Posttraumatic stress disorder F43.10 [facility] [id number] [place] [address] Dec, Primary osteoarthritis of both knees M17.0 and Chronic pain syndrome G89.4 [facility] [address] [place] [address] 18 Nov, 2016 Chronic pain syndrome G89.4 [facility] [id number] [place] [address] 15 Nov, 2016 Primary osteoarthritis of both knees M17.0 and Chronic pain syndrome G89.4 [facility] [id number] [place] [address] 13 Nov, 2016 Type 2 diabetes mellitus with diabetic polyneuropathy E11.42 and Chronic pain syndrome G89.4 [facility] [id number] [place] [address] 12 Nov, 2016 Posttraumatic stress disorder F43.10 and Mood disorder F39 [facility] [id number] [place] [address] Oct, Chronic pain syndrome G89.4 [facility] [id number] [place] [address] Oct, Type 2 diabetes mellitus with diabetic polyneuropathy E11.42 ; BMI 45.0-49.9, adult Z68.42 ; Primary osteoarthritis of both knees M17.0 and Skin lesion L98.9 [facility] [address] [place] [address] Oct, Chronic pain syndrome G89.4 [facility] [id number] [place] [address] Sep, Chronic pain syndrome G89.4 [facility] [id number] [place] [address] Sep, [facility] [id number] [place] [address] Sep, Chronic pain syndrome G89.4 [facility] [id number] [place] [address] Aug, Chronic pain syndrome G89.4 [facility] [address], [place] [address] Aug, [facility] [id number] [place] [address] Aug, Macrocytosis D75.89 and Pure hypercholesterolemia E78.0 [facility] [id number] [place] [address] Aug, Pure hypercholesterolemia E78.0 [facility] [address] [place] [address] Aug, Macrocytosis D75.89 [facility] [id number] [place] [address] Aug, Pure hypercholesterolemia E78.0 ; Type 2 diabetes mellitus with diabetic polyneuropathy E11.42 ; MITCHELL treated with BiPAP G47.33 and Chronic pain syndrome G89.4 [facility] [id number] [place] [address] Aug, [facility] [id number] [place] [address] Aug, Hemorrhoids, unspecified hemorrhoid type K64.9 [facility] [address], [place] [address] Aug, Chronic pain syndrome G89.4 ; Type 2 diabetes mellitus with diabetic polyneuropathy E11.42 ; Hemorrhoids, unspecified hemorrhoid type K64.9 ; Tobacco abuse Z72.0 and Primary osteoarthritis of both knees M17.0 [facility] [address], [place] [address] July, Chronic pain syndrome G89.4 [facility] [address] [place] [address] July, [facility] [address], [place] [address] Jun, Chronic pain syndrome G89.4 [facility] [address] [place] [address] Jun, Chronic pain syndrome G89.4 [facility] [id number] [place] [address] Jun, Severe major depression with psychotic features F32.3 and Posttraumatic stress disorder F43.10 [facility] [id number] [place] [address] Jun, Chronic pain syndrome G89.4 [facility] [id number] [place] [address] Jun, [facility] [id number] [place] [address] May, Chronic pain syndrome G89.4 [facility] [id number] [place] [address] May, Tobacco abuse Z72.0 [facility] [id number] [place] [address] May, [facility] [id number] [place] [address] Apr, Chronic pain syndrome G89.4 [facility] [address] [place] [address] Apr, [facility] [id number] [place] [address] Apr, Right foot pain M79.671 [facility] [address] [place] [address] Mar, Type 2 diabetes mellitus with diabetic polyneuropathy E11.42 ; MITCHELL treated with BiPAP G47.33 ; Pure hypercholesterolemia E78.0 ; Chronic pain syndrome G89.4 ; Tobacco abuse Z72.0 and Obesity, morbid, BMI 40.0-49.9 E66.01 [facility] [id number] [place] [address] Mar, [facility] [address], [place] [address] Mar, [facility] [address], [place] [address] Mar, [facility] [address], [place] [address] Mar, [facility] [id number] [place] [address] Mar, [facility] [address], [place] [address] Mar, Severe major depression with psychotic features F32.3 and Posttraumatic stress disorder F43.10 [facility] [address], [place] [address] Mar, [facility] [id number] [place] [address] Feb, [facility] [address], [place] [address] Feb, [facility] [address], [place] [address] Jan, [facility] [address] [address] Jan, [facility] [address], [place] [address] Dec, Posttraumatic stress disorder F43.10 and Severe major depression with psychotic features F32.3 [facility] [address], [place] [address] Dec, Type 2 diabetes mellitus with diabetic polyneuropathy E11.42 ; Chronic pain syndrome G89.4 and Acute right-sided low back pain with right-sided sciatica M54.41 [facility] [address] [address] Dec, [facility] [address], [place] [address] Dec, [facility] [id number] [place] [address] Nov, [facility] [id number] [place] [address] Nov, [facility] [id number] [place] [address] Nov, [facility] [id number] [place] [address] Oct, [facility] [id number] [place] [address] Oct, [facility] [id number] [place] [address] Sep, Dental examination Z01.20 [facility] [id number] [place] [address] Sep, [facility] [id number] [place] [address] Sep, Type 2 diabetes mellitus with diabetic polyneuropathy E11.42 ; Chronic pain syndrome G89.4 ; Chronic prescription opiate use Z79.891 ; Injury of right index finger, sequela S69.91XS and Anejaculation N50.8 [facility] [id number] [place] [address] Aug, [facility] [id number] [place] [address] Aug, [facility] [id number] [place] [address] Aug, Cellulitis of finger of right hand L03.011 [facility] [id number] [place] [address] July, [facility] [id number] [address] July, [facility] [address], [place] [address] Jun, Onychomycosis B35.1 [facility] [id number] [address] Jun, Severe major depression with psychotic features F32.3 and Posttraumatic stress disorder F43.10 [facility] [id number] [place] [address] Jun, [facility] [id number] [place] [address] Jun, [facility] [id number] [place] [phone] Jun, [facility] [id number] [place] [phone] May, Type 2 diabetes mellitus with diabetic polyneuropathy E11.42 [facility] [id number] [address] May, Type 2 diabetes mellitus with diabetic polyneuropathy E11.42 and Urinary hesitancy R39.11 [facility] [id number] [address] May, Type 2 diabetes mellitus with diabetic polyneuropathy E11.42 ; Left hip pain M25.552 and Benign prostatic hyperplasia with lower urinary tract symptoms, unspecified morphology N40.1 [facility] [id number] [address] May, [facility] [id number] [place] [phone] Apr, Severe major depression with psychotic features F32.3 and Posttraumatic stress disorder F43.10 [facility] [id number] [address] Apr, [facility] [id number] [address] Mar, [facility] [id number] [place] [phone] Mar, Dysuria R30.0 and Urinary hesitancy R39.11 [facility] [id number] [place] [id number] Mar, Onychomycosis B35.1 [facility] [id number] [place] [phone] Mar, [facility] [id number] [place] [phone] Feb, [facility] [id number] [place] [phone] Jan, [facility] [id number] [place] [phone] Jan, Posttraumatic stress disorder F43.10 and Severe major depression with psychotic features F32.3 [facility] [id number] [place] [phone] Jan, [facility] [id number] [place] [phone] Jan, Chronic pain syndrome G89.4 ; Type 2 diabetes mellitus with diabetic polyneuropathy E11.42 ; Decreased pedal pulses R09.89 and Paresthesia of both hands R20.2 [facility] [id number] [place] [phone] Dec, Posttraumatic stress disorder F43.10 and Severe major depression with psychotic features F32.3 [facility] [id number] [place] [address] Dec, [facility] [id number] [place] [address] Dec, [facility] [id number] [place] [address] Dec, Onychomycosis B35.1 [facility] [id number] [place] [address] Dec, [facility] [id number] [place] [address] Dec, [facility] [id number] [place] [address] Nov, [facility] [id number] [place] [address] Oct, Depression, major, recurrent, moderate 296.32 and Posttraumatic stress disorder 309.81 [facility] [id number] [place] [address] Oct, [facility] [id number] [place] [address] Oct, [facility] [id number] [place] [address] Oct, [facility] [id number] [place] [address] Sep, Posttraumatic stress disorder 309.81 and Depression, major, recurrent, moderate 296.32 [facility] [id number] [place] [address] Sep, [facility] [id number] [place] [address] Sep, Chronic airway obstruction, not elsewhere classified [address] [place] [id number] [place] [address] Sep, Onychomycosis 110.1 and DM neuro manif type II 250.60 [facility] [id number] [place] [address] Sep, Chronic pain 338.29 ; Chronic airway obstruction, not elsewhere classified 496 ; Osteoarthritis of knees, bilateral 715.96 and On potassium wasting diuretic therapy V58.[address] [place] [address] Sep, Insect bites 919.4 ; Sinusitis 473.9 and GERD (gastroesophageal reflux disease) 530.81 [facility] [id number] [address] Aug, Depression, major, recurrent, moderate 296.32 and Posttraumatic stress disorder 309.81 [facility] [id number] [place] [address] Aug, [facility] [id number] [place] [address] Aug, [facility] [id number] [place] [address] Aug, [facility] [id number] [place] [address] July, Major depressive disorder, recurrent episode, moderate 296.32 and Posttraumatic stress disorder 309.81 [facility] [address] [address] July, [facility] [id number] [place] [address] July, [facility] [id number] [address] July, [facility] [id number] [address] July, [facility] [id number] [address] Jun, [facility] [address] [address] Jun, [facility] [id number] [address] May, [facility] [id number] [address] May, [facility] [id number] [place] [address] 18 May, 2014 [facility] [place] [facility] [address] [id number] [place] [address] May, 2014 [facility] [place] [facility] [address] [id number] [place] [address] May, 2014 [facility] [place] [facility] [address] [id number] [place] [address] May, 2014 [facility] [place] [facility] [address] [id number] [place] [address] May, 2014 [facility] [place] [facility] [address] [id number] [place] [address] May, [facility] [place] [facility] [address] [facility] [id number] [place] [address] May, [facility] [place] [facility] [address] [facility] [id number] [place] [address] Apr, 2014 [facility] [place] [facility] [address] [facility] [id number] [place] [address] Apr, 2014 [facility] [place] [facility] [address] [facility] [id number] [place] [address] Apr, 2014 [facility] [place] [facility] [address] [facility] [id number] [place] [address] Apr, 2014 [facility] [place] [facility] [address] [facility] [id number] [place] [address] Apr, 2014 [facility] [place] [facility] [address] [facility] [id number] [place] [address] Apr, 2014 [facility] [place] [facility] [address] [facility] [id number] [place] [address] Apr, 2014 [facility] [place] [facility] [address] [facility] [id number] [place] [address] Apr, 2014 [facility] [place] [facility] [address] [facility] [id number] [place] [address] 04 Apr, 2014 [facility] [place] [facility] [address] [id number] [place] [address] 30 Mar, 2014 [facility] [place] [facility] [address] [id number] [place] [address] 30 Mar, 2014 [facility] [place] [facility] [address] [id number] [place] [address] Mar, [facility] [place] [facility] [address] [id number] [place] [address] Mar, [facility] [place] [facility] [address] [id number] [place] [address] Mar, [facility] [place] [facility] [address] [id number] [place] [address] 15 Mar, 2014 [facility] [place] [facility] [address] [id number] [place] [address] Mar, [facility] [place] [facility] [address] [id number] [place] [address] 15 Mar, 2014 [facility] [place] [facility] [address] [id number] [place] [address] Mar, [facility] [place] [facility] [address] [id number] [place] [address] 15 Mar, 2014 [facility] [place] [facility] [address] [id number] [address] 14 Mar, 2014 [facility] [place] [facility] [address] [id number] [address] 14 Mar, 2014 [facility] [place] [facility] [address] [id number] [place] [address] Mar, [facility] [place] [facility] [address] [id number] [place] [address] 14 Mar, 2014 [facility] [place] [facility] [address] [id number] [place] [address] 14 Mar, 2014 [facility] [place] [facility] [address] [id number] [place] [address] 14 Mar, 2014 [facility] [address] [id number] [place] [address] 09 Mar, 2014 [facility] [place] [facility] [address] [id number] [place] [address] 09 Mar, 2014 [facility] [address] [id number] [place] [address] 16 Feb, 2014 [facility] [place] [facility] [address] [id number] [place] [address] 16 Feb, 2014 [facility] [address] [id number] [place] [address] 15 Feb, 2014 [facility] [place] [facility] [address] [id number] [place] [address] 15 Feb, 2014 [facility] [place] [facility] [address] [id number] [place] [address] 15 Feb, 2014 [facility] [address] [id number] [place] [address] 15 Feb, 2014 [facility] [place] [facility] [address] [id number] [place] [address] Jan, [facility] [address] [id number] [place] [address] Jan, [facility] [place] [facility] [address] [id number] [place] [address] Jan, [facility] [place] [facility] [address] [id number] [place] [address] Jan, [facility] [place] [facility] [address] [id number] [place] [address] Jan, [facility] [place] [facility] [address] [id number] [place] [address] Jan, [facility] [place] [facility] [address] [id number] [place] [address] Jan, [facility] [place] [facility] [address] [id number] [place] [address] Jan, [facility] [place] [facility] [address] [id number] [place] [address] Jan, [facility] [place] [facility] [address] [id number] [place] [address] Jan, [facility] [place] [facility] [address] [id number] [place] [address] Dec, [facility] [place] [facility] [address] [id number] [place] [address] Dec, [facility] [place] [facility] [address] [id number] [place] [address] Dec, [facility] [place] [facility] [address] [id number] [place] [address] Dec, [facility] [place] [facility] [address] [id number] [place] [address] 16 Nov, 2013 [facility] [place] [facility] [address] [id number] [place] [address] 16 Nov, 2013 [facility] [place] [facility] [address] [id number], [place] [address] Nov, [facility] [place] [facility] [address] [id number], [place] [address] Nov, [facility] [place] [facility] [address] [id number], [place] [address] Nov, 2013 [facility] [place] [facility] [address] [id number] [place] [address] Nov, [facility] [place] [facility] [address] [id number] [place] [address] Oct, [facility] [place] [facility] [address] [id number], [place] [address] Oct, [facility] [place] [facility] [address] [id number], [place] [address] Oct, [facility] [place] [facility] [address] [id number] [place] [address] Oct, [facility] [place] [facility] [address] [id number] [place] [address] Sep, [facility] [place] [facility] [address] [id number] [place] [address] Sep, [facility] [place] [facility] [address] [id number] [place] [address] Sep, [facility] [place] [facility] [address] [id number] [place] [address] Sep, [facility] [place] [facility] [address] [id number] [place] [address] Sep, [facility] [place] [facility] [address] [id number] [place] [address] Sep, [facility] [place] [facility] [address] [id number] [place] [address] July, [facility] [place] [facility] [address] [id number] [place] [address] July, [facility] [place] [facility] [address] [id number] [place] [address] July, [facility] [place] [facility] [address] [id number] [place] [address] July, [facility] [place] [facility] [address] [id number] [place] [address] Jun, [facility] [place] [facility] [address] [id number] [place] [address] Jun, [facility] [place] [facility] [address] [id number] [place] [address] Jun, [facility] [place] [facility] [address] [id number] [place] [address] Jun, [facility] [place] [facility] [address] [id number] [place] [address] Jun, [facility] [place] [facility] [address] [id number] [place] [address] Jun, [facility] [place] [facility] [address] [id number] [place] [address] May, [facility] [place] [facility] [address] [id number] [place] [address] May, [facility] [place] [facility] [address] [id number] [place] [address] Apr, [facility] [place] [facility] [address] [id number] [place] [address] Apr, [facility] [place] [facility] [address] [facility] [id number] [place] [address] Apr, [facility] [place] [facility] [address] [facility] [id number] [place] [address] Apr, [facility] [place] [facility] [address] [facility] [id number] [place] [address] Apr, [facility] [place] [facility] [address] [facility] [id number] [place] [address] Apr, [facility] [place] [facility] [address] [facility] [id number] [place] [address] Apr, [facility] [place] [facility] [address] [id number], [place] [address] Mar, [facility] [place] [facility] [address] [id number] [place] [address] Mar, [facility] [place] [facility] [address] [id number] [place] [address] Mar, [facility] [place] [facility] [address] [facility] [id number], [place] [address] Mar, [facility] [place] [facility] [address] [facility] [id number], [place] [address] Mar, [facility] [address] [id number] [place] [address] Mar, [facility] [place] [facility] [address] [id number] [place] [address] Mar, [facility] [place] [facility] [address] [facility] [id number] [place] [address] Mar, [facility] [place] [facility] [address] [id number] [place] [address] Feb, [facility] [place] [facility] [address] [id number] [place] [address] Feb, [facility] [place] [facility] [address] [id number] [place] [address] Feb, [facility] [place] [facility] [address] [facility] [id number] [place] [address] Feb, [facility] [place] [facility] [address] [id number] [place] [address] Feb, [facility] [place] [facility] [address] [facility] [id number] [place] [address] Feb, [facility] [place] [facility] [address] [facility] [id number] [place] [address] Feb, [facility] [place] [facility] [address] [id number] [place] [address] Jan, [facility] [place] [facility] [address] [id number] [place] [address] Jan, [facility] [place] [facility] [address] [id number] [place] [address] Jan, [facility] [place] [facility] [address] [id number] [place] [address] Jan, [facility] [place] [facility] [address] [facility] [id number] [place] [address] Jan, [facility] [place] [facility] [address] [id number] [place] [address] Jan, [facility] [place] [facility] [address] [id number] [place] [id number] Jan, [facility] [place] [facility] [address] [id number] [place] [id number] Jan, [facility] [address] [id number] [place] [address] Dec, [facility] [place] [facility] [address] [id number] [place] [address] Dec, [facility] [address] [id number] [place] [address] Dec, [facility] [address] [id number] [place] [address] Dec, [facility] [address] [id number] [place] [address] Dec, [facility] [address] [id number], [place] [address] Dec, [facility] [address] [id number] [place] [address] Dec, [facility] [address] [id number], [place] [address] Dec, [facility] [place] [facility] [address] [id number], [place] [address] Dec, [facility] [place] [facility] [address] [id number], [place] [address] Dec, [facility] [place] [facility] [address] [id number] [place] [address] Nov, [facility] [place] [facility] [address] [id number] [address] Nov, [facility] [place] [facility] [address] [id number], [place] [address] 24 Nov, 2012 [facility] [place] [facility] [address] [id number] [place] [address] 20 Nov, 2012 [facility] [place] [facility] [address] [id number] [place] [address] Nov, [facility] [place] [facility] [address] [id number] [place] [address] Nov, [facility] [place] [facility] [address] [id number] [place] [address] 10 Nov, 2012 [facility] [place] [facility] [address] [id number] [place] [address] Nov, [facility] [place] [facility] [address] [id number] [place] [address] Oct, [facility] [place] [facility] [address] [id number] [place] [address] Oct, [facility] [place] [facility] [address] [id number] [place] [address] Oct, [facility] [place] [facility] [address] [id number] [place] [address] Sep, [facility] [place] [facility] [address] [id number] [place] [address] Sep, [facility] [place] [facility] [address] [id number] [place] [address] Sep, [facility] [place] [facility] [address] [id number] [place] [address] Sep, [facility] [place] [facility] [address] [id number] [place] [address] Sep, [facility] [place] [facility] [address] [id number] [place] [address] Aug, [facility] [place] [facility] [address] [id number] [place] [address] Aug, [facility] [place] [facility] [address] [id number] [place] [address] Aug, [facility] [address] [id number] [place] [address] Aug, [facility] [place] [facility] [address] [id number] [place] [address] Aug, [facility] [address] [id number] [place] [address] Aug, [facility] [place] [facility] [address] [id number] [place] [address] July, [facility] [address] [id number] [place] [address] July, [facility] [address] [id number] [place] [address] July, [facility] [address] [id number] [place] [address] July, [facility] [place] [facility] [address] [id number] [place] [address] July, [facility] [address] [id number] [place] [address] July, [facility] [place] [facility] [address] [id number] [place] [address] Jun, [facility] [place] [facility] [address] [id number] [place] [address] Jun, [facility] [place] [facility] [address] [id number] [place] [address] Jun, [facility] [place] [facility] [address] [id number] [place] [address] Jun, [facility] [place] [facility] [address] [id number] [place] [address] May, [facility] [place] [facility] [address] [id number] [place] [address] May, [facility] [place] [facility] [address] [id number] [place] [address] 06 May, 2012 [facility] [address] [id number] [place] [address] Apr, [facility] [address] [id number] [place] [address] Mar, [facility] [address] [id number] [place] [address] 18 Mar, 2012 [facility] [address] [id number] [place] [address] 17 Mar, 2012 [facility] [address] [id number] [place] [address] 16 Mar, 2012 [facility] [address] [id number] [place] [address] 15 Mar, 2012 [facility] [address] [id number] [place] [address] Feb, [facility] [address] [id number] [place] [address] 31 Feb, 2012 [facility] [address] [id number] [place] [address] Feb, [facility] [address] [facility] [id number] [place] [address] 17 Feb, 2012 [facility] [address] [id number] [place] [address] Jan, [facility] [address] [id number] [place] [address] Jan, [facility] [address] [id number] [place] [address] Jan, [facility] [address] [id number] [place] [address] Jan, [facility] [address] [id number] [place] [address] Dec, [facility] [address] [id number] [place] [address] Dec, [facility] [address] [id number] [place] [address] Nov, [facility] [address] [id number] [place] [address] Oct, [facility] [address] [id number] [place] [address] Oct, [facility] [address] [id number] [place] [address] Oct, [facility] [address] [id number] [place] [address] Oct, [facility] [address] [id number] [place] [address] Oct, [facility] [address] [id number] [place] [address] Sep, [facility] [address] [id number] [place] [address] Sep, [facility] [address] [id number] [place] [address] Aug, [address] [id number] Aug, [facility] [address] [id number] [place] [address] Aug, [facility] [address] [id number] [place] [address] July, [facility] [place] [facility] [address] [id number] [place] [address] July, [facility] [address] [id number] [place] [address] Jun, [facility] [address] [id number] [place] [address] 23 Jun, 2011 [facility] [place] [facility] [address] [id number] [place] [address] 16 Jun, 2011 [facility] [place] [facility] [address] [id number] [place] [address] Jun, [facility] [place] [facility] [address] [id number] [place] [address] 15 Apr, 2011 [facility] [place] [facility] [address] [id number] [place] [address] 15 Apr, 2011 [facility] [place] [facility] [address] [id number] [place] [address] Apr, [facility] [place] [facility] [address] [id number] [place] [address] Mar, [facility] [place] [facility] [address] [id number] [place] [address] Mar, [facility] [place] [facility] [address] [id number] [place] [address] Mar, [facility] [place] [facility] [address] [id number] [place] [address] Mar, [facility] [place] [facility] [address] [id number] [place] [address] Mar, [facility] [place] [facility] [address] [id number] [place] [address] Jan, [facility] [place] [facility] [address] [id number] [place] [address] Jan, [facility] [place] [facility] [address] [id number] [place] [address] Jan, [facility] [place] [facility] [address] [id number] [place] [address] Mar, [facility] [place] [facility] [address] [id number] [place] [address] Mar, [facility] [place] [facility] [address] [id number] [place] [address] 20 Feb, 2010 [facility] [address] [id number] [place] [address] 16 Feb, 2010 [facility] [address] [id number] [place] [address] 16 Feb, 2010 [facility] [address] [facility] [id number] [place] [address] 17 Jan, 2010 [facility] [address] [id number] [place] [address] 17 Jan, 2010 [facility] [address] [facility] [id number] [place] [address], [place] [address] 19 Dec, 2009 [facility] [address] [facility] [id number] [place] [address] 19 Dec, 2009 [facility] [address] [facility] [id number] [place] [address] 10 May, 2009 [facility] [address] [facility] [id number] [place] [address] 10 Apr, 2009 [facility] [address] [facility] [id number] [place] [address] 07 Feb, 2009 [facility] [address] [facility] [id number] [address] 03 Feb, 2009 [facility] [address] [facility] [id number] [place] [address] 30 Jan, 2009 [facility] [facility] [address] [facility] [id number] [address] Jan, [facility] [address] [facility] [id number] [place] [address] Jan, [facility] [address] [facility] [id number] [place] [address] Jan, [facility] [address] [facility] [id number] [address] Jan, IMMUNIZATIONS No Known Immunizations SOCIAL HISTORY Never Assessed REASON FOR VISIT PLAN OF CARE VITAL SIGNS Height 66 in 2014-05-29 Weight 271.6 lbs 2014-05-29 Temperature 96.7 degrees Fahrenheit 2014-05-29 Heart Rate 80 bpm 2014-05-29 Respiratory Rate 20 2014-05-29 Blood pressure systolic 136 mmHg 2014-05-29 Blood pressure diastolic 84 mmHg 2014-05-29 MEDICATIONS Unknown Medications RESULTS No Results PROCEDURES [...]
--- OUTSIDE RECORDS SUMMARY | 2018-10-04 07:09 | XMS REPORT ---
Author Author ESTHER CHAVEZ [facility] Address [address] [place] [address] Care Team Providers Care Corporate Tax Manager Name Role Phone KATHYCIARA VILLEGASHANY Unavailable PROBLEMS Type Condition ICD9-CM Code XMF51-TG Code Onset Dates Condition Status SNOMED Code Problem MITCHELL treated with BiPAP G47.33 Active 05914677 Problem Type 2 diabetes mellitus with diabetic polyneuropathy E11.42 Active 020223744 Problem History of DVT (deep vein thrombosis) Z86.718 Active 694134826 Problem History of weight loss surgery Z98.84 Active 913543238 Problem Chronic systolic (congestive) heart failure I50.22 Active 014904361 Problem Essential hypertension I10 Active 48851623 Problem Chronic prescription opiate use Z79.891 Active 769744724 Problem Primary osteoarthritis of both knees M17.0 Active 909935843 Problem Chronic pain syndrome G89.4 Active 457506840 Problem Nocturnal hypoxia G47.34 Active 679687031 Problem Obesity, morbid, BMI 40.0-49.9 E66.01 Active 186343048 Problem Tobacco abuse Z72.0 Active 344212300 Problem Macrocytosis D75.89 Active 605411683 Problem Pure hypercholesterolemia E78.00 Active 121692013 Problem Posttraumatic stress disorder F43.10 Active 05886277 Problem Non-ischemic cardiomyopathy I42.9 Active 69912332 Problem Obstructive sleep apnea syndrome G47.33 Active 93555201 Problem Acute right-sided low back pain with right-sided sciatica M54.41 Active 45466631 Problem Gastroesophageal reflux disease, esophagitis presence not specified K21.9 Active 130989365 Problem Chronic obstructive pulmonary disease, unspecified COPD type J44.9 Active 49824547 Problem BMI 45.0-49.9, adult Z68.42 Active 162436667 Problem Mild episode of recurrent major depressive disorder F33.0 Active 446506191 Problem Mood disorder F39 Active 97301444 Problem Primary insomnia F51.01 Active 2645132 ALLERGIES No Information ENCOUNTERS Encounter Location Date Diagnosis [facility] [address], [place] [address] Oct, [facility] [address], [place] [address] Sep, Type 2 diabetes mellitus with diabetic polyneuropathy E11.42 [facility] [address], [place] [address] Aug, Chronic pain syndrome G89.4 [facility] [address] [address] Aug, [facility] [id number] [place] [address] Aug, Type 2 diabetes mellitus with diabetic polyneuropathy E11.[address] [address] July, Chronic pain syndrome G89.4 [facility] [address] [address] July, [facility] [id number] [address] July, Encounter for Medicare annual wellness exam [...] and Chronic systolic congestive heart failure I50.22 [facility] [address], [place] [address] July, Type 2 diabetes mellitus with diabetic polyneuropathy E11.42 [facility] [id number] [address] July, [facility] [address], [place] [address] July, Urinary hesitancy R39.11 [facility] [address], [place] [address] July, Chronic pain syndrome G89.4 [facility] [address], [place] [address] Jun, Mass of shoulder region R22.30 [address] [place] [id number] [place] [address] Jun, Mass of shoulder region R22.30 [facility] [address] [place] [address] Jun, Chronic pain syndrome G89.4 [facility] [address] [place] [address] May, Type 2 diabetes mellitus with diabetic polyneuropathy E11.42 ; Mass of shoulder region R22.30 and Morbid obesity E66.01 [facility] [address] [address] 07 May, 2018 Chronic pain syndrome G89.4 [facility] [id number] [place] [address] 04 May, 2018 Mood disorder F39 ; Posttraumatic stress disorder F43.10 and Morbid obesity E66.01 [facility] [address], [place] [address] 14 Apr, 2018 Major depressive disorder, recurrent episode, unspecified severity F33.9 [facility] [address], [place] [address] 13 Apr, 2018 Major depressive disorder, recurrent episode, unspecified severity F33.9 [facility] [address] [place] [address] 07 Apr, 2018 Chronic pain syndrome G89.4 [facility] [address], [place] [address] 14 Mar, 2018 Pain in right foot M79.671 ; Type 2 diabetes mellitus with diabetic polyneuropathy E11.42 ; Chronic pain syndrome G89.4 and BMI 50.0-59.9, adult Z68.43 [facility] [id number] [place] [address] Mar, [facility] [id number] [place] [address] Mar, [facility] [address] [address] Mar, Chronic pain syndrome G89.4 [place] [facility] [address] [address] Feb, Chronic pain syndrome G89.4 [facility] [id number] [place] [address] Jan, Obstructive sleep apnea syndrome G47.33 [facility] [id number] [place] [address] Jan, Type 2 diabetes mellitus with diabetic polyneuropathy E11.42 ; Chronic pain syndrome G89.4 ; Gastroesophageal reflux disease, esophagitis presence not specified K21.9 ; Essential hypertension I10 ; Pure hypercholesterolemia E78.00 ; Chronic prescription opiate use Z79.891 ; Obstructive sleep apnea syndrome G47.33 and BMI 50.0-59.9, adult Z68.43 [facility] [id number] [place] [address] 20 Jan, 2018 History of weight loss surgery Z98.84 [facility] [id number] [place] [address] Jan, [address] [address] [address] Jan, Chronic pain syndrome G89.4 [place] [facility] [id number] [place] [address] Jan, [facility] [address] [address] Jan, [facility] [address] [place] [address] Dec, [facility] [id number] [place] [address] Dec, Chronic pain syndrome G89.4 [facility] [id number] [place] [address] Dec, Injury of left knee, subsequent encounter S89.92XD and Acute pain of left knee M25.562 [facility] [id number] [place] [address] Dec, [facility] [id number] [place] [address] Dec, Injury of left knee, initial encounter S89.92XA and BMI 45.0-49.9, adult Z68.42 [facility] [id number] [place] [address] Nov, Chest discomfort R07.89 ; Shortness of breath R06.02 ; Chronic systolic congestive heart failure I50.22 and Type 2 diabetes mellitus with diabetic polyneuropathy E11.42 [facility] [id number] [place] [address] Nov, Chronic pain syndrome G89.4 [facility] [id number] [place] [address] Oct, BMI 45.0-49.9, adult Z68.42 ; Type 2 diabetes mellitus with diabetic polyneuropathy E11.42 ; Chronic pain syndrome G89.4 ; Gastroesophageal reflux disease, esophagitis presence not specified K21.9 ; Decreased pedal pulses R09.89 and Precordial pain R07.2 [facility] [address] [place] [address] Oct, [facility] [id number] [place] [address] Oct, Mood disorder F39 [address], [place] [address] Oct, Mood disorder F39 ; Posttraumatic stress disorder F43.10 and BMI 45.0-49.9, adult Z68.42 [facility] [address], [place] [address] Sep, Primary osteoarthritis of both knees M17.0 and Chronic pain syndrome G89.4 [facility] [id number] [address] Sep, Mood disorder F39 and Posttraumatic stress disorder F43.10 [facility] [id number] [place] [address] Aug, Primary osteoarthritis of both knees M17.0 and Chronic pain syndrome G89.4 [facility] [id number] [place] [address] July, Primary osteoarthritis of both knees M17.0 and Chronic pain syndrome G89.4 [facility] [address] [place] [address] July, Type 2 diabetes mellitus with diabetic polyneuropathy E11.42 ; Essential hypertension I10 ; Pure hypercholesterolemia E78.0 ; Chronic prescription opiate use Z79.891 ; Tobacco abuse Z72.0 ; Primary osteoarthritis of both knees M17.0 ; Primary insomnia F51.01 and BMI 45.0-49.9, adult Z68.42 [facility] [address] [place] [address] July, Medicare annual wellness visit, initial Z00.00 [...] immunization Z23 [facility] [place] [facility] [id number] [place] [address] July, Primary osteoarthritis of both knees M17.0 and Chronic pain syndrome G89.4 [facility] [id number] [place] [address] Jun, Infection of right ear H66.91 ; Wheezing on auscultation R06.2 and BMI 45.0-49.9, adult Z68.42 [facility] [id number] [place] [address] Jun, [place] [address] [address] Jun, Primary osteoarthritis of both knees M17.0 and Chronic pain syndrome G89.4 [facility] [id number] [place] [address] May, [facility] [id number] [place] [address] May, BMI 45.0-49.9, adult Z68.42 ; Mood disorder F39 and Posttraumatic stress disorder F43.10 [place] [id number] [place] [address] May, [facility] [id number] [place] [address] May, Primary osteoarthritis of both knees M17.0 and Chronic pain syndrome G89.4 [facility] [id number] [place] [address] May, Mood disorder F39 [facility] [id number] [place] [address] Apr, Type 2 diabetes mellitus with diabetic polyneuropathy E11.42 [facility] [id number] [place] [address] Apr, [facility] [address] [place] [address] Apr, Primary osteoarthritis of both knees M17.0 and Chronic pain syndrome G89.4 [facility] [id number] [place] [address] Apr, Mood disorder F39 [facility] [address] [place] [address] Mar, Mood disorder F39 and Posttraumatic stress disorder F43.10 [facility] [id number] [place] [address] Mar, Primary osteoarthritis of both knees M17.0 and Chronic pain syndrome G89.4 [facility] [id number] [place] [address] Feb, Primary osteoarthritis of both knees M17.0 and Chronic pain syndrome G89.4 [facility] [id number] [place] [address] Feb, Mood disorder F39 [facility] [id number] [place] [address] Jan, Type 2 diabetes mellitus with diabetic polyneuropathy E11.42 ; Primary osteoarthritis of both knees M17.0 ; Mood disorder F39 ; Obesity, morbid, BMI 40.0-49.9 E66.01 ; Chronic prescription opiate use Z79.891 ; Acute suppurative otitis media of both ears without spontaneous rupture of tympanic membranes, recurrence not specified H66.003 and BMI 45.0-49.9, adult Z68.42 [facility] [id number] [place] [address] Jan, Primary osteoarthritis of both knees M17.0 and Chronic pain syndrome G89.4 [facility] [id number] [place] [address] Dec, Mood disorder F39 and Posttraumatic stress disorder F43.10 [facility] [id number] [place] [address] Dec, Primary osteoarthritis of both knees M17.0 and Chronic pain syndrome G89.4 [facility] [id number] [place] [address] 18 Nov, 2016 Chronic pain syndrome G89.4 [facility] [id number] [place] [address] 15 Nov, 2016 Primary osteoarthritis of both knees M17.0 and Chronic pain syndrome G89.4 [facility] [id number] [place] [address] 13 Nov, 2016 Type 2 diabetes mellitus with diabetic polyneuropathy E11.42 and Chronic pain syndrome G89.4 [facility] [id number] [place] [address] 12 Nov, 2016 Posttraumatic stress disorder F43.10 and Mood disorder F39 [facility] [id number] [place] [address] Oct, Chronic pain syndrome G89.4 [facility] [id number] [place] [address] Oct, Type 2 diabetes mellitus with diabetic polyneuropathy E11.42 ; BMI 45.0-49.9, adult Z68.42 ; Primary osteoarthritis of both knees M17.0 and Skin lesion L98.9 [facility] [address] [place] [address] Oct, Chronic pain syndrome G89.4 [facility] [id number] [place] [address] Sep, Chronic pain syndrome G89.4 [facility] [id number] [place] [address] Sep, [facility] [id number] [place] [address] Sep, Chronic pain syndrome G89.4 [facility] [id number] [place] [address] Aug, Chronic pain syndrome G89.4 [facility] [address], [place] [address] Aug, [facility] [id number] [place] [address] Aug, Macrocytosis D75.89 and Pure hypercholesterolemia E78.0 [facility] [id number] [place] [address] Aug, Pure hypercholesterolemia E78.0 [facility] [address] [place] [address] Aug, Macrocytosis D75.89 [facility] [id number] [place] [address] Aug, Pure hypercholesterolemia E78.0 ; Type 2 diabetes mellitus with diabetic polyneuropathy E11.42 ; MITCHELL treated with BiPAP G47.33 and Chronic pain syndrome G89.4 [facility] [id number] [place] [address] Aug, [facility] [id number] [place] [address] Aug, Hemorrhoids, unspecified hemorrhoid type K64.9 [facility] [address], [place] [address] Aug, Chronic pain syndrome G89.4 ; Type 2 diabetes mellitus with diabetic polyneuropathy E11.42 ; Hemorrhoids, unspecified hemorrhoid type K64.9 ; Tobacco abuse Z72.0 and Primary osteoarthritis of both knees M17.0 [facility] [address], [place] [address] July, Chronic pain syndrome G89.4 [facility] [address] [place] [address] July, [facility] [address], [place] [address] Jun, Chronic pain syndrome G89.4 [facility] [address] [place] [address] Jun, Chronic pain syndrome G89.4 [facility] [id number] [place] [address] Jun, Severe major depression with psychotic features F32.3 and Posttraumatic stress disorder F43.10 [facility] [id number] [place] [address] Jun, Chronic pain syndrome G89.4 [facility] [id number] [place] [address] Jun, [facility] [id number] [place] [address] May, Chronic pain syndrome G89.4 [facility] [id number] [place] [address] May, Tobacco abuse Z72.0 [facility] [id number] [place] [address] May, [facility] [id number] [place] [address] Apr, Chronic pain syndrome G89.4 [facility] [address] [place] [address] Apr, [facility] [id number] [place] [address] Apr, Right foot pain M79.671 [facility] [address] [place] [address] Mar, Type 2 diabetes mellitus with diabetic polyneuropathy E11.42 ; MITCHELL treated with BiPAP G47.33 ; Pure hypercholesterolemia E78.0 ; Chronic pain syndrome G89.4 ; Tobacco abuse Z72.0 and Obesity, morbid, BMI 40.0-49.9 E66.01 [facility] [id number] [place] [address] Mar, [facility] [address], [place] [address] Mar, [facility] [address], [place] [address] Mar, [facility] [address], [place] [address] Mar, [facility] [id number] [place] [address] Mar, [facility] [address], [place] [address] Mar, Severe major depression with psychotic features F32.3 and Posttraumatic stress disorder F43.10 [facility] [address], [place] [address] Mar, [facility] [id number] [place] [address] Feb, [facility] [address], [place] [address] Feb, [facility] [address], [place] [address] Jan, [facility] [address], [place] [address] Jan, [facility] [address], [place] [address] Dec, Posttraumatic stress disorder F43.10 and Severe major depression with psychotic features F32.3 [facility] [address], [place] [address] Dec, Type 2 diabetes mellitus with diabetic polyneuropathy E11.42 ; Chronic pain syndrome G89.4 and Acute right-sided low back pain with right-sided sciatica M54.41 [facility] [address], [place] [address] Dec, [facility] [address], [place] [address] Dec, [facility] [id number] [place] [address] Nov, [facility] [id number] [place] [address] Nov, [facility] [id number] [place] [address] Nov, [facility] [id number] [place] [address] Oct, [facility] [id number] [place] [address] Oct, [facility] [id number] [place] [address] Sep, Dental examination Z01.20 [facility] [id number] [place] [address] Sep, [facility] [id number] [place] [address] Sep, Type 2 diabetes mellitus with diabetic polyneuropathy E11.42 ; Chronic pain syndrome G89.4 ; Chronic prescription opiate use Z79.891 ; Injury of right index finger, sequela S69.91XS and Anejaculation N50.8 [facility] [id number] [place] [address] Aug, [facility] [id number] [place] [address] Aug, [facility] [id number] [place] [address] Aug, Cellulitis of finger of right hand L03.011 [facility] [address] [place] [address] July, [facility] [id number] [address] July, [facility] [address], [place] [address] Jun, Onychomycosis B35.1 [facility] [id number] [address] Jun, Severe major depression with psychotic features F32.3 and Posttraumatic stress disorder F43.10 [facility] [id number] [place] [address] Jun, [facility] [id number] [place] [address] Jun, [facility] [id number] [place] [address] Jun, [facility] [id number] [place] [address] May, Type 2 diabetes mellitus with diabetic polyneuropathy E11.42 [facility] [address], [place] [address] May, Type 2 diabetes mellitus with diabetic polyneuropathy E11.42 and Urinary hesitancy R39.11 [facility] [address] [address] May, Type 2 diabetes mellitus with diabetic polyneuropathy E11.42 ; Left hip pain M25.552 and Benign prostatic hyperplasia with lower urinary tract symptoms, unspecified morphology N40.1 [facility] [address], [place] [address] May, [facility] [address] [place] [address] Apr, Severe major depression with psychotic features F32.3 and Posttraumatic stress disorder F43.10 [facility] [address] [address] Apr, [facility] [id number] [address] Mar, [facility] [id number] [place] [address] Mar, Dysuria R30.0 and Urinary hesitancy R39.11 [facility] [id number] [place] [address] Mar, Onychomycosis B35.1 [facility] [id number] [place] [phone] Mar, [facility] [id number] [place] [phone] Feb, [facility] [id number] [place] [phone] Jan, [facility] [id number] [place] [phone] Jan, Posttraumatic stress disorder F43.10 and Severe major depression with psychotic features F32.3 [facility] [id number] [place] [phone] Jan, [facility] [id number] [place] [phone] Jan, Chronic pain syndrome G89.4 ; Type 2 diabetes mellitus with diabetic polyneuropathy E11.42 ; Decreased pedal pulses R09.89 and Paresthesia of both hands R20.2 [facility] [id number] [place] [address] Dec, Posttraumatic stress disorder F43.10 and Severe major depression with psychotic features F32.3 [facility] [id number] [place] [address] Dec, [facility] [id number] [place] [address] Dec, [facility] [id number] [place] [address] Dec, Onychomycosis B35.1 [facility] [id number] [place] [address] Dec, [facility] [id number] [place] [address] Dec, [facility] [id number] [place] [address] Nov, [facility] [id number] [place] [address] Oct, Depression, major, recurrent, moderate 296.32 and Posttraumatic stress disorder 309.81 [place] [id number] [place] [address] Oct, [facility] [id number] [place] [address] Oct, [place] [id number] [place] [address] Oct, [facility] [id number] [place] [address] Sep, Posttraumatic stress disorder 309.81 and Depression, major, recurrent, moderate 296.32 [place] [place] [id number] [place] [address] Sep, [facility] [id number] [place] [address] Sep, Chronic airway obstruction, not elsewhere classified [address] [id number] [place] [address] Sep, Onychomycosis 110.1 and DM neuro manif type II 250.60 [place] [id number] [place] [address] Sep, Chronic pain 338.29 ; Chronic airway obstruction, not elsewhere classified 496 ; Osteoarthritis of knees, bilateral 715.96 and On potassium wasting diuretic therapy V58.[address] [place] [address] Sep, Insect bites 919.4 ; Sinusitis 473.9 and GERD (gastroesophageal reflux disease) 530.81 [facility] [address] [id number] [address] Aug, Depression, major, recurrent, moderate 296.32 and Posttraumatic stress disorder 309.81 [facility] [id number] [place] [address] Aug, [facility] [id number] [place] [address] Aug, [facility] [id number] [place] [address] Aug, [facility] [id number] [place] [address] July, Major depressive disorder, recurrent episode, moderate 296.32 and Posttraumatic stress disorder 309.81 [facility] [id number] [address] July, [facility] [id number] [place] [address] July, [facility] [id number] [address] July, [facility] [id number] [address] July, [facility] [id number] [address] Jun, [facility] [id number] [address] Jun, [facility] [id number] [address] May, [facility] [id number] [address] May, [facility] [id number] [place] [address] 18 May, 2014 [facility] [place] [facility] [address] [id number] [place] [address] May, 2014 [facility] [place] [facility] [address] [id number] [place] [address] May, 2014 [facility] [place] [facility] [address] [id number] [place] [address] May, 2014 [facility] [place] [facility] [address] [id number] [place] [address] May, 2014 [facility] [place] [facility] [address] [id number] [place] [address] May, [facility] [place] [facility] [address] [facility] [id number] [place] [address] May, [facility] [place] [facility] [address] [facility] [id number] [place] [address] Apr, 2014 [facility] [place] [facility] [address] [facility] [id number] [place] [address] Apr, 2014 [facility] [place] [facility] [address] [facility] [id number] [place] [address] Apr, 2014 [facility] [place] [facility] [address] [facility] [id number] [place] [address] Apr, 2014 [facility] [place] [facility] [address] [facility] [id number] [place] [address] Apr, 2014 [facility] [place] [facility] [address] [facility] [id number] [place] [address] Apr, 2014 [facility] [place] [facility] [address] [facility] [id number] [place] [address] Apr, 2014 [facility] [place] [facility] [address] [facility] [id number] [place] [address] Apr, 2014 [facility] [place] [facility] [address] [facility] [id number] [place] [address] 04 Apr, 2014 [facility] [place] [facility] [address] [id number] [place] [address] 30 Mar, 2014 [facility] [place] [facility] [address] [id number] [place] [address] 30 Mar, 2014 [facility] [place] [facility] [address] [id number] [place] [address] Mar, [facility] [place] [facility] [address] [id number] [place] [address] Mar, [facility] [place] [facility] [address] [id number] [place] [address] Mar, [facility] [place] [facility] [address] [id number] [place] [address] 15 Mar, 2014 [facility] [place] [facility] [address] [id number] [place] [address] Mar, [facility] [place] [facility] [address] [id number] [place] [address] 15 Mar, 2014 [facility] [place] [facility] [address] [id number] [place] [address] Mar, [facility] [place] [facility] [address] [id number] [place] [address] 15 Mar, 2014 [facility] [place] [facility] [address] [id number] [address] 14 Mar, 2014 [facility] [place] [facility] [address] [id number], [place] [address] 14 Mar, 2014 [facility] [place] [facility] [address] [id number] [place] [address] Mar, [facility] [place] [facility] [address] [id number] [place] [address] 14 Mar, 2014 [facility] [place] [facility] [address] [id number] [place] [address] 14 Mar, 2014 [facility] [place] [facility] [address] [id number] [place] [address] 14 Mar, 2014 [facility] [address] [id number] [place] [address] 09 Mar, 2014 [facility] [place] [facility] [address] [id number] [place] [address] 09 Mar, 2014 [facility] [address] [id number] [place] [address] 16 Feb, 2014 [facility] [place] [facility] [address] [id number] [place] [address] 16 Feb, 2014 [facility] [address] [id number] [place] [address] 15 Feb, 2014 [facility] [place] [facility] [address] [id number] [place] [address] 15 Feb, 2014 [facility] [place] [facility] [address] [id number] [place] [address] 15 Feb, 2014 [facility] [address] [id number] [place] [address] 15 Feb, 2014 [facility] [place] [facility] [address] [id number] [place] [address] Jan, [facility] [address] [id number] [place] [address] Jan, [facility] [place] [facility] [address] [id number] [place] [address] Jan, [facility] [place] [facility] [address] [id number] [place] [address] Jan, [facility] [place] [facility] [address] [id number] [place] [address] Jan, [facility] [place] [facility] [address] [id number] [place] [address] Jan, [facility] [place] [facility] [address] [id number] [place] [address] Jan, [facility] [place] [facility] [address] [id number] [place] [address] Jan, [facility] [place] [facility] [address] [id number] [place] [address] Jan, [facility] [place] [facility] [address] [id number] [place] [address] Jan, [facility] [place] [facility] [address] [id number] [place] [address] Dec, [facility] [place] [facility] [address] [id number] [place] [address] Dec, [facility] [place] [facility] [address] [id number] [place] [address] Dec, [facility] [place] [facility] [address] [id number] [place] [address] Dec, [facility] [place] [facility] [address] [id number] [place] [address] 16 Nov, 2013 [facility] [place] [facility] [address] [id number] [place] [address] 16 Nov, 2013 [facility] [place] [facility] [address] [id number], [place] [address] Nov, [facility] [place] [facility] [address] [id number], [place] [address] Nov, [facility] [place] [facility] [address] [id number] [address] Nov, 2013 [facility] [place] [facility] [address] [id number] [place] [address] Nov, [facility] [place] [facility] [address] [id number] [place] [address] Oct, [facility] [place] [facility] [address] [id number], [place] [address] Oct, [facility] [place] [facility] [address] [id number], [place] [address] Oct, [facility] [place] [facility] [address] [id number] [place] [address] Oct, [facility] [place] [facility] [address] [id number] [place] [address] Sep, [facility] [place] [facility] [address] [id number] [place] [address] Sep, [facility] [place] [facility] [address] [id number] [place] [address] Sep, [facility] [place] [facility] [address] [id number] [place] [address] Sep, [facility] [place] [facility] [address] [id number] [place] [address] Sep, [facility] [place] [facility] [address] [id number] [place] [address] Sep, [facility] [place] [facility] [address] [id number] [place] [address] July, [facility] [place] [facility] [address] [id number] [place] [address] July, [facility] [place] [facility] [address] [id number] [place] [address] July, [facility] [place] [facility] [address] [id number] [place] [address] July, [facility] [place] [facility] [address] [id number] [place] [address] Jun, [facility] [place] [facility] [address] [id number] [place] [address] Jun, [facility] [place] [facility] [address] [id number] [place] [address] Jun, [facility] [place] [facility] [address] [id number] [place] [address] Jun, [facility] [place] [facility] [address] [id number] [place] [address] Jun, [facility] [place] [facility] [address] [id number] [place] [address] Jun, [facility] [place] [facility] [address] [id number] [place] [address] May, [facility] [place] [facility] [address] [id number] [place] [address] May, [facility] [place] [facility] [address] [id number] [place] [address] Apr, [facility] [place] [facility] [address] [id number] [place] [address] Apr, [facility] [place] [facility] [address] [facility] [id number] [place] [address] Apr, [facility] [place] [facility] [address] [facility] [id number] [place] [address] Apr, [facility] [place] [facility] [address] [facility] [id number] [place] [address] Apr, [facility] [place] [facility] [address] [facility] [id number] [place] [address] Apr, [facility] [place] [facility] [address] [facility] [id number] [place] [address] Apr, [facility] [place] [facility] [address] [id number], [place] [address] Mar, [facility] [place] [facility] [address] [id number] [place] [address] Mar, [facility] [place] [facility] [address] [id number] [place] [address] Mar, [facility] [place] [facility] [address] [facility] [id number], [place] [address] Mar, [facility] [place] [facility] [address] [facility] [id number], [place] [address] Mar, [facility] [address] [id number] [place] [address] Mar, [facility] [place] [facility] [address] [id number] [place] [address] Mar, [facility] [place] [facility] [address] [facility] [id number] [place] [address] Mar, [facility] [place] [facility] [address] [id number] [place] [address] Feb, [facility] [place] [facility] [address] [id number] [place] [address] Feb, [facility] [place] [facility] [address] [id number] [place] [address] Feb, [facility] [place] [facility] [address] [facility] [id number] [place] [address] Feb, [facility] [place] [facility] [address] [id number] [place] [address] Feb, [facility] [place] [facility] [address] [facility] [id number] [place] [address] Feb, [facility] [place] [facility] [address] [facility] [id number] [place] [address] Feb, [facility] [place] [facility] [address] [id number] [place] [address] Jan, [facility] [place] [facility] [address] [id number] [place] [address] Jan, [facility] [place] [facility] [address] [id number] [place] [address] Jan, [facility] [place] [facility] [address] [id number] [place] [address] Jan, [facility] [place] [facility] [address] [facility] [id number] [place] [address] Jan, [facility] [place] [facility] [address] [id number] [place] [address] Jan, [facility] [place] [facility] [address] [id number] [place] [id number] Jan, [facility] [place] [facility] [address] [id number] [place] [id number] Jan, [facility] [address] [id number] [place] [address] Dec, [facility] [place] [facility] [address] [id number] [place] [address] Dec, [facility] [address] [id number] [place] [address] Dec, [facility] [address] [id number] [place] [address] Dec, [facility] [address] [id number] [place] [address] Dec, [facility] [address] [id number], [place] [address] Dec, [facility] [address] [id number] [place] [address] Dec, [facility] [address] [id number], [place] [address] Dec, [facility] [place] [facility] [address] [id number], [place] [address] Dec, [facility] [place] [facility] [address] [id number], [place] [address] Dec, [facility] [place] [facility] [address] [id number] [place] [id number] Nov, [facility] [place] [facility] [address] [id number] [id number] Nov, [facility] [place] [facility] [address] [id number], [place] [address] 24 Nov, 2012 [facility] [place] [facility] [address] [id number] [place] [address] 20 Nov, 2012 [facility] [place] [facility] [address] [id number] [place] [address] Nov, [facility] [place] [facility] [address] [id number] [place] [address] Nov, [facility] [place] [facility] [address] [id number] [place] [address] 10 Nov, 2012 [facility] [place] [facility] [address] [id number] [place] [address] Nov, [facility] [place] [facility] [address] [id number] [place] [address] Oct, [facility] [place] [facility] [address] [id number] [place] [address] Oct, [facility] [place] [facility] [address] [id number] [place] [address] Oct, [facility] [place] [facility] [address] [id number] [place] [address] Sep, [facility] [place] [facility] [address] [id number] [place] [address] Sep, [facility] [place] [facility] [address] [id number] [place] [address] Sep, [facility] [place] [facility] [address] [id number] [place] [address] Sep, [facility] [place] [facility] [address] [id number] [place] [address] Sep, [facility] [place] [facility] [address] [id number] [place] [address] Aug, [facility] [place] [facility] [address] [id number] [place] [address] Aug, [facility] [place] [facility] [address] [id number] [place] [address] Aug, [facility] [address] [id number] [place] [address] Aug, [facility] [place] [facility] [address] [id number] [place] [address] Aug, [facility] [address] [id number] [place] [address] Aug, [facility] [place] [facility] [address] [id number] [place] [address] July, [facility] [address] [id number] [place] [address] July, [facility] [address] [id number] [place] [address] July, [facility] [address] [id number] [place] [address] July, [facility] [place] [facility] [address] [id number] [place] [address] July, [facility] [address] [id number] [place] [address] July, [facility] [place] [facility] [address] [id number] [place] [address] Jun, [facility] [place] [facility] [address] [id number] [place] [address] Jun, [facility] [place] [facility] [address] [id number] [place] [address] Jun, [facility] [place] [facility] [address] [id number] [place] [address] Jun, [facility] [place] [facility] [address] [id number] [place] [address] May, [facility] [place] [facility] [address] [id number] [place] [address] May, [facility] [place] [facility] [address] [id number] [place] [address] 06 May, 2012 [facility] [address] [id number] [place] [address] Apr, [facility] [address] [id number] [place] [address] Mar, [facility] [address] [id number] [place] [address] 18 Mar, 2012 [facility] [address] [id number] [place] [address] 17 Mar, 2012 [facility] [address] [id number] [place] [address] 16 Mar, 2012 [facility] [address] [id number] [place] [address] 15 Mar, 2012 [facility] [address] [id number] [place] [address] Feb, [facility] [address] [id number] [place] [address] 31 Feb, 2012 [facility] [address] [id number] [place] [address] Feb, [facility] [address] [facility] [id number] [place] [address] 17 Feb, 2012 [facility] [address] [id number] [place] [address] Jan, [facility] [address] [id number] [place] [address] Jan, [facility] [address] [id number] [place] [address] Jan, [facility] [address] [id number] [place] [address] Jan, [facility] [address] [id number] [place] [address] Dec, [facility] [address] [id number] [place] [address] Dec, [facility] [address] [id number] [place] [address] Nov, [facility] [address] [id number] [place] [address] Oct, [facility] [address] [id number] [place] [address] Oct, [facility] [address] [id number] [place] [address] Oct, [facility] [address] [id number] [place] [address] Oct, [facility] [address] [id number] [place] [address] Oct, [facility] [address] [id number] [place] [address] Sep, [facility] [address] [id number] [place] [address] Sep, [facility] [address] [id number] [place] [address] Aug, [address] [id number] Aug, [facility] [address] [id number] [place] [address] Aug, [facility] [address] [id number] [place] [address] July, [facility] [place] [facility] [address] [id number] [place] [address] July, [facility] [address] [id number] [place] [address] Jun, [facility] [address] [id number] [place] [address] 23 Jun, 2011 [facility] [place] [facility] [address] [id number] [place] [address] 16 Jun, 2011 [facility] [place] [facility] [address] [id number] [place] [address] Jun, [facility] [place] [facility] [address] [id number] [place] [address] 15 Apr, 2011 [facility] [place] [facility] [address] [id number] [place] [address] 15 Apr, 2011 [facility] [place] [facility] [address] [id number] [place] [address] Apr, [facility] [place] [facility] [address] [id number] [place] [address] Mar, [facility] [place] [facility] [address] [id number] [place] [address] Mar, [facility] [place] [facility] [address] [id number] [place] [address] Mar, [facility] [place] [facility] [address] [id number] [place] [address] Mar, [facility] [place] [facility] [address] [id number] [place] [address] Mar, [facility] [place] [facility] [address] [id number] [place] [address] Jan, [facility] [place] [facility] [address] [id number] [place] [address] Jan, [facility] [place] [facility] [address] [id number] [place] [address] Jan, [facility] [place] [facility] [address] [id number] [place] [address] Mar, [facility] [place] [facility] [address] [id number] [place] [address] Mar, [facility] [place] [facility] [address] [id number] [place] [address] 20 Feb, 2010 [facility] [address] [id number] [place] [address] 16 Feb, 2010 [facility] [address] [id number] [place] [address] 16 Feb, 2010 [facility] [address] [facility] [id number] [place] [address] 17 Jan, 2010 [facility] [address] [id number] [place] [address] 17 Jan, 2010 [facility] [address] [facility] [id number] [place] [address], [place] [address] 19 Dec, 2009 [facility] [address] [facility] [id number] [place] [address] 19 Dec, 2009 [facility] [address] [facility] [id number] [place] [address] 10 May, 2009 [facility] [address] [facility] [id number] [place] [address] 10 Apr, 2009 [facility] [address] [facility] [id number] [place] [address] 07 Feb, 2009 [facility] [address] [facility] [id number] [address] 03 Feb, 2009 [facility] [address] [facility] [id number] [place] [address] 30 Jan, 2009 [facility] [address] [facility] [id number], [place] [address] Jan, [facility] [address] [facility] [id number] [place] [address] Jan, [facility] [address] [facility] [facility] [id number] [place] [id number] Jan, [facility] [address] [facility] [id number] [address] Jan, IMMUNIZATIONS No Known Immunizations SOCIAL HISTORY [...]
--- OUTSIDE RECORDS SUMMARY | 2018-10-04 07:11 | XMS REPORT ---
Author Author ESTHER CHAVEZ [facility] Address [address] [place] [address] Care Team Providers Care Research And Development Technician Name Role Phone KATHYCIARA VILLEGASHANY Unavailable PROBLEMS Type Condition ICD9-CM Code [id number] Code Onset Dates Condition Status SNOMED Code Problem MITCHELL treated with BiPAP G47.33 Active 57183023 Problem Type 2 diabetes mellitus with diabetic polyneuropathy E11.42 Active 496750399 Problem History of DVT (deep vein thrombosis) Z86.718 Active 684433468 Problem History of weight loss surgery Z98.84 Active 613176124 Problem Chronic systolic (congestive) heart failure I50.22 Active 039487461 Problem Essential hypertension I10 Active 08721789 Problem Chronic prescription opiate use Z79.891 Active 440027618 Problem Primary osteoarthritis of both knees M17.0 Active 844306365 Problem Chronic pain syndrome G89.4 Active 695997970 Problem Nocturnal hypoxia G47.34 Active 706404742 Problem Obesity, morbid, BMI 40.0-49.9 E66.01 Active 116433508 Problem Tobacco abuse Z72.0 Active 477454936 Problem Macrocytosis D75.89 Active 877662869 Problem Pure hypercholesterolemia E78.00 Active 946188029 Problem Posttraumatic stress disorder F43.10 Active 42973094 Problem Non-ischemic cardiomyopathy I42.9 Active 00470136 Problem Obstructive sleep apnea syndrome G47.33 Active 38238299 Problem Acute right-sided low back pain with right-sided sciatica M54.41 Active 28029992 Problem Gastroesophageal reflux disease, esophagitis presence not specified K21.9 Active 868863955 Problem Chronic obstructive pulmonary disease, unspecified COPD type J44.9 Active 80048596 Problem BMI 45.0-49.9, adult Z68.42 Active 953228228 Problem Mild episode of recurrent major depressive disorder F33.0 Active 820893920 Problem Mood disorder F39 Active 71053032 Problem Primary insomnia F51.01 Active 6783363 ALLERGIES No Information ENCOUNTERS Encounter Location Date Diagnosis [facility] [address], [place] [address] Oct, [facility] [address], [place] [address] Sep, Type 2 diabetes mellitus with diabetic polyneuropathy E11.42 [facility] [address], [place] [address] Aug, Chronic pain syndrome G89.4 [facility] [address], [place] [address] Aug, [facility] [id number] [place] [address] Aug, Type 2 diabetes mellitus with diabetic polyneuropathy E11.[address] [address] July, Chronic pain syndrome G89.4 [facility] [address], [place] [address] July, [facility] [id number], [place] [address] July, Encounter for Medicare annual wellness exam [...] and Chronic systolic congestive heart failure I50.22 [facility] [address], [place] [address] July, Type 2 diabetes mellitus with diabetic polyneuropathy E11.42 [facility] [id number], [place] [address] July, [facility] [address], [place] [address] July, Urinary hesitancy R39.11 [facility] [address], [place] [address] July, Chronic pain syndrome G89.4 [facility] [address], [place] [address] Jun, Mass of shoulder region R22.30 [place] [facility] [id number] [place] [address] Jun, Mass of shoulder region R22.30 [facility] [address] [place] [address] Jun, Chronic pain syndrome G89.4 [facility] [id number] [place] [address] May, Type 2 diabetes mellitus with diabetic polyneuropathy E11.42 ; Mass of shoulder region R22.30 and Morbid obesity E66.01 [facility] [address], [place] [address] 07 May, 2018 Chronic pain syndrome G89.4 [facility] [id number] [place] [address] 04 May, 2018 Mood disorder F39 ; Posttraumatic stress disorder F43.10 and Morbid obesity E66.01 [facility] [address], [place] [address] 14 Apr, 2018 Major depressive disorder, recurrent episode, unspecified severity F33.9 [facility] [address], [place] [address] 13 Apr, 2018 Major depressive disorder, recurrent episode, unspecified severity F33.9 [facility] [id number] [place] [address] 07 Apr, 2018 Chronic pain syndrome G89.4 [facility] [address], [place] [address] 14 Mar, 2018 Pain in right foot M79.671 ; Type 2 diabetes mellitus with diabetic polyneuropathy E11.42 ; Chronic pain syndrome G89.4 and BMI 50.0-59.9, adult Z68.43 [facility] [id number] [place] [address] Mar, [facility] [id number] [place] [address] Mar, [facility] [address] [address] Mar, Chronic pain syndrome G89.4 [facility] [address] [address] Feb, Chronic pain syndrome G89.4 [facility] [id number] [place] [address] Jan, Obstructive sleep apnea syndrome G47.33 [facility] [id number] [place] [address] Jan, Type 2 diabetes mellitus with diabetic polyneuropathy E11.42 ; Chronic pain syndrome G89.4 ; Gastroesophageal reflux disease, esophagitis presence not specified K21.9 ; Essential hypertension I10 ; Pure hypercholesterolemia E78.00 ; Chronic prescription opiate use Z79.891 ; Obstructive sleep apnea syndrome G47.33 and BMI 50.0-59.9, adult Z68.43 [facility] [id number] [place] [address] 20 Jan, 2018 History of weight loss surgery Z98.84 [facility] [id number] [place] [address] Jan, [place] [address] [address] Jan, Chronic pain syndrome G89.4 [facility] [id number] [place] [address] Jan, [facility] [address] [address] Jan, [facility] [id number] [place] [address] Dec, [facility] [id number] [place] [address] Dec, Chronic pain syndrome G89.4 [facility] [id number] [place] [address] Dec, Injury of left knee, subsequent encounter S89.92XD and Acute pain of left knee M25.562 [facility] [id number] [place] [address] Dec, [facility] [id number] [place] [address] Dec, Injury of left knee, initial encounter S89.92XA and BMI 45.0-49.9, adult Z68.42 [facility] [id number] [place] [address] Nov, Chest discomfort R07.89 ; Shortness of breath R06.02 ; Chronic systolic congestive heart failure I50.22 and Type 2 diabetes mellitus with diabetic polyneuropathy E11.42 [facility] [id number] [place] [address] Nov, Chronic pain syndrome G89.4 [facility] [id number] [place] [address] Oct, BMI 45.0-49.9, adult Z68.42 ; Type 2 diabetes mellitus with diabetic polyneuropathy E11.42 ; Chronic pain syndrome G89.4 ; Gastroesophageal reflux disease, esophagitis presence not specified K21.9 ; Decreased pedal pulses R09.89 and Precordial pain R07.2 [facility] [address] [place] [address] Oct, [facility] [id number] [place] [address] Oct, Mood disorder F39 [address], [place] [address] Oct, Mood disorder F39 ; Posttraumatic stress disorder F43.10 and BMI 45.0-49.9, adult Z68.42 [facility] [address], [place] [address] Sep, Primary osteoarthritis of both knees M17.0 and Chronic pain syndrome G89.4 [facility] [id number], [place] [address] Sep, Mood disorder F39 and Posttraumatic stress disorder F43.10 [facility] [id number] [place] [address] Aug, Primary osteoarthritis of both knees M17.0 and Chronic pain syndrome G89.4 [facility] [id number] [place] [address] July, Primary osteoarthritis of both knees M17.0 and Chronic pain syndrome G89.4 [facility] [address] [place] [address] July, Type 2 diabetes mellitus with diabetic polyneuropathy E11.42 ; Essential hypertension I10 ; Pure hypercholesterolemia E78.0 ; Chronic prescription opiate use Z79.891 ; Tobacco abuse Z72.0 ; Primary osteoarthritis of both knees M17.0 ; Primary insomnia F51.01 and BMI 45.0-49.9, adult Z68.42 [facility] [address] [place] [address] July, Medicare annual wellness visit, initial Z00.00 [...] immunization Z23 [facility] [place] [facility] [id number] [place] [address] July, Primary osteoarthritis of both knees M17.0 and Chronic pain syndrome G89.4 [facility] [id number] [place] [address] Jun, Infection of right ear H66.91 ; Wheezing on auscultation R06.2 and BMI 45.0-49.9, adult Z68.42 [facility] [id number] [place] [address] Jun, [place] [address] [address] Jun, Primary osteoarthritis of both knees M17.0 and Chronic pain syndrome G89.4 [facility] [id number] [place] [address] May, [facility] [id number] [place] [address] May, BMI 45.0-49.9, adult Z68.42 ; Mood disorder F39 and Posttraumatic stress disorder F43.10 [place] [id number] [place] [address] May, [facility] [id number] [place] [address] May, Primary osteoarthritis of both knees M17.0 and Chronic pain syndrome G89.4 [facility] [id number] [place] [address] May, Mood disorder F39 [facility] [id number] [place] [address] Apr, Type 2 diabetes mellitus with diabetic polyneuropathy E11.42 [facility] [id number] [place] [address] Apr, [facility] [address] [place] [address] Apr, Primary osteoarthritis of both knees M17.0 and Chronic pain syndrome G89.4 [facility] [id number] [place] [address] Apr, Mood disorder F39 [facility] [id number] [place] [address] Mar, Mood disorder F39 and Posttraumatic stress disorder F43.10 [facility] [id number] [place] [address] Mar, Primary osteoarthritis of both knees M17.0 and Chronic pain syndrome G89.4 [facility] [id number] [place] [address] Feb, Primary osteoarthritis of both knees M17.0 and Chronic pain syndrome G89.4 [facility] [id number] [place] [address] Feb, Mood disorder F39 [facility] [id number] [place] [address] Jan, Type 2 diabetes mellitus with diabetic polyneuropathy E11.42 ; Primary osteoarthritis of both knees M17.0 ; Mood disorder F39 ; Obesity, morbid, BMI 40.0-49.9 E66.01 ; Chronic prescription opiate use Z79.891 ; Acute suppurative otitis media of both ears without spontaneous rupture of tympanic membranes, recurrence not specified H66.003 and BMI 45.0-49.9, adult Z68.42 [facility] [address] [place] [address] Jan, Primary osteoarthritis of both knees M17.0 and Chronic pain syndrome G89.4 [facility] [address] [place] [address] Dec, Mood disorder F39 and Posttraumatic stress disorder F43.10 [facility] [id number] [place] [address] Dec, Primary osteoarthritis of both knees M17.0 and Chronic pain syndrome G89.4 [facility] [address] [place] [address] 18 Nov, 2016 Chronic pain syndrome G89.4 [facility] [id number] [place] [address] 15 Nov, 2016 Primary osteoarthritis of both knees M17.0 and Chronic pain syndrome G89.4 [facility] [id number] [place] [address] 13 Nov, 2016 Type 2 diabetes mellitus with diabetic polyneuropathy E11.42 and Chronic pain syndrome G89.4 [facility] [id number] [place] [address] 12 Nov, 2016 Posttraumatic stress disorder F43.10 and Mood disorder F39 [facility] [id number] [place] [address] Oct, Chronic pain syndrome G89.4 [facility] [id number] [place] [address] Oct, Type 2 diabetes mellitus with diabetic polyneuropathy E11.42 ; BMI 45.0-49.9, adult Z68.42 ; Primary osteoarthritis of both knees M17.0 and Skin lesion L98.9 [facility] [address] [place] [address] Oct, Chronic pain syndrome G89.4 [facility] [id number] [place] [address] Sep, Chronic pain syndrome G89.4 [facility] [id number] [place] [address] Sep, [facility] [id number] [place] [address] Sep, Chronic pain syndrome G89.4 [facility] [address] [place] [address] Aug, Chronic pain syndrome G89.4 [facility] [address], [place] [address] Aug, [facility] [id number] [place] [address] Aug, Macrocytosis D75.89 and Pure hypercholesterolemia E78.0 [facility] [id number] [place] [address] Aug, Pure hypercholesterolemia E78.0 [facility] [address] [place] [address] Aug, Macrocytosis D75.89 [facility] [id number] [place] [address] Aug, Pure hypercholesterolemia E78.0 ; Type 2 diabetes mellitus with diabetic polyneuropathy E11.42 ; MITCHELL treated with BiPAP G47.33 and Chronic pain syndrome G89.4 [facility] [id number] [place] [address] Aug, [facility] [id number] [place] [address] Aug, Hemorrhoids, unspecified hemorrhoid type K64.9 [facility] [address], [place] [address] Aug, Chronic pain syndrome G89.4 ; Type 2 diabetes mellitus with diabetic polyneuropathy E11.42 ; Hemorrhoids, unspecified hemorrhoid type K64.9 ; Tobacco abuse Z72.0 and Primary osteoarthritis of both knees M17.0 [facility] [address], [place] [address] July, Chronic pain syndrome G89.4 [facility] [address] [place] [address] July, [facility] [address], [place] [address] Jun, Chronic pain syndrome G89.4 [facility] [address] [place] [address] Jun, Chronic pain syndrome G89.4 [facility] [id number] [place] [address] Jun, Severe major depression with psychotic features F32.3 and Posttraumatic stress disorder F43.10 [facility] [id number] [place] [address] Jun, Chronic pain syndrome G89.4 [facility] [id number] [place] [address] Jun, [facility] [id number] [place] [address] May, Chronic pain syndrome G89.4 [facility] [id number] [place] [address] May, Tobacco abuse Z72.0 [facility] [id number] [place] [address] May, [facility] [id number] [place] [address] Apr, Chronic pain syndrome G89.4 [facility] [address] [place] [address] Apr, [facility] [id number] [place] [address] Apr, Right foot pain M79.671 [facility] [address] [place] [address] Mar, Type 2 diabetes mellitus with diabetic polyneuropathy E11.42 ; MITCHELL treated with BiPAP G47.33 ; Pure hypercholesterolemia E78.0 ; Chronic pain syndrome G89.4 ; Tobacco abuse Z72.0 and Obesity, morbid, BMI 40.0-49.9 E66.01 [facility] [id number] [place] [address] Mar, [facility] [address], [place] [address] Mar, [facility] [address], [place] [address] Mar, [facility] [address], [place] [address] Mar, [facility] [id number] [place] [address] Mar, [facility] [address], [place] [address] Mar, Severe major depression with psychotic features F32.3 and Posttraumatic stress disorder F43.10 [facility] [address], [place] [address] Mar, [facility] [id number] [place] [address] Feb, [facility] [address], [place] [address] Feb, [facility] [address], [place] [address] Jan, [facility] [address], [place] [address] Jan, [facility] [address], [place] [address] Dec, Posttraumatic stress disorder F43.10 and Severe major depression with psychotic features F32.3 [facility] [address], [place] [address] Dec, Type 2 diabetes mellitus with diabetic polyneuropathy E11.42 ; Chronic pain syndrome G89.4 and Acute right-sided low back pain with right-sided sciatica M54.41 [facility] [address], [place] [address] Dec, [facility] [address], [place] [address] Dec, [facility] [id number] [place] [address] Nov, [facility] [id number] [place] [address] Nov, [facility] [id number] [place] [address] Nov, [facility] [id number] [place] [address] Oct, [facility] [id number] [place] [address] Oct, [facility] [id number] [place] [address] Sep, Dental examination Z01.20 [facility] [id number] [place] [address] Sep, [facility] [id number] [place] [address] Sep, Type 2 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 ; Chronic pain syndrome G89.4 ; Chronic prescription opiate use Z79.891 ; Injury of right index finger, sequela S69.91XS and Anejaculation N50.8 [facility] [id number] [place] [address] Aug, [facility] [id number] [place] [address] Aug, [facility] [id number] [place] [address] Aug, Cellulitis of finger of right hand L03.011 [facility] [address] [place] [address] July, [facility] [id number] [address] July, [facility] [address], [place] [address] Jun, Onychomycosis B35.1 [facility] [id number] [address] Jun, Severe major depression with psychotic features F32.3 and Posttraumatic stress disorder F43.10 [facility] [id number] [place] [address] Jun, [facility] [address] [place] [address] Jun, [facility] [id number] [place] [address] Jun, [facility] [id number] [place] [address] May, Type 2 diabetes mellitus with diabetic polyneuropathy E11.42 [facility] [id number] [address] May, Type 2 diabetes mellitus with diabetic polyneuropathy E11.42 and Urinary hesitancy R39.11 [facility] [id number] [address] May, Type 2 diabetes mellitus with diabetic polyneuropathy E11.42 ; Left hip pain M25.552 and Benign prostatic hyperplasia with lower urinary tract symptoms, unspecified morphology N40.1 [facility] [id number] [address] May, [facility] [id number] [place] [id number] Apr, Severe major depression with psychotic features F32.3 and Posttraumatic stress disorder F43.10 [facility] [address] [address] Apr, [facility] [id number], [place] [address] Mar, [facility] [id number] [place] [address] Mar, Dysuria R30.0 and Urinary hesitancy R39.11 [facility] [id number] [place] [address] Mar, Onychomycosis B35.1 [facility] [id number] [place] [address] Mar, [facility] [id number] [place] [address] Feb, [facility] [id number] [place] [address] Jan, [facility] [id number] [place] [address] Jan, Posttraumatic stress disorder F43.10 and Severe major depression with psychotic features F32.3 [facility] [id number] [place] [address] Jan, [facility] [id number] [place] [address] Jan, Chronic pain syndrome G89.4 ; Type 2 diabetes mellitus with diabetic polyneuropathy E11.42 ; Decreased pedal pulses R09.89 and Paresthesia of both hands R20.2 [facility] [id number] [place] [address] Dec, Posttraumatic stress disorder F43.10 and Severe major depression with psychotic features F32.3 [facility] [id number] [place] [address] Dec, [facility] [id number] [place] [address] Dec, [facility] [id number] [place] [address] Dec, Onychomycosis B35.1 [facility] [id number] [place] [address] Dec, [facility] [id number] [place] [address] Dec, [facility] [id number] [place] [address] Nov, [facility] [id number] [place] [address] Oct, Depression, major, recurrent, moderate 296.32 and Posttraumatic stress disorder 309.81 [place] [id number] [place] [address] Oct, [facility] [id number] [place] [address] Oct, [place] [id number] [place] [address] Oct, [facility] [id number] [place] [address] Sep, Posttraumatic stress disorder 309.81 and Depression, major, recurrent, moderate 296.32 [place] [id number] [place] [address] Sep, [place] [id number] [place] [address] Sep, Chronic airway obstruction, not elsewhere classified [id number] [place] [address] Sep, Onychomycosis 110.1 and DM neuro manif type II 250.60 [place] [id number] [place] [address] Sep, Chronic pain 338.29 ; Chronic airway obstruction, not elsewhere classified 496 ; Osteoarthritis of knees, bilateral 715.96 and On potassium wasting diuretic therapy V58.[address] [place] [address] Sep, Insect bites 919.4 ; Sinusitis 473.9 and GERD (gastroesophageal reflux disease) 530.81 [facility] [id number] [address] Aug, Depression, major, recurrent, moderate 296.32 and Posttraumatic stress disorder 309.81 [facility] [id number] [place] [address] Aug, [facility] [id number] [place] [address] Aug, [facility] [id number] [place] [address] Aug, [facility] [id number] [place] [address] July, Major depressive disorder, recurrent episode, moderate 296.32 and Posttraumatic stress disorder 309.81 [facility] [address], [place] [address] July, [facility] [id number] [place] [address] July, [facility] [address], [place] [address] July, [facility] [address], [place] [address] July, [facility] [id number], [place] [address] Jun, [facility] [address], [place] [address] Jun, [facility] [address], [place] [address] May, [facility] [address], [place] [address] May, [facility] [id number] [address] 18 May, 2014 [facility] [place] [facility] [address] [id number] [place] [address] May, 2014 [facility] [place] [facility] [address] [id number] [place] [address] May, 2014 [facility] [place] [facility] [address] [id number] [place] [address] May, 2014 [facility] [place] [facility] [address] [id number] [place] [address] May, 2014 [facility] [place] [facility] [address] [id number] [place] [address] May, [facility] [place] [facility] [address] [facility] [id number] [place] [address] May, [facility] [place] [facility] [address] [facility] [id number] [place] [address] Apr, 2014 [facility] [place] [facility] [address] [facility] [id number] [place] [address] Apr, 2014 [facility] [place] [facility] [address] [facility] [id number] [place] [address] Apr, 2014 [facility] [place] [facility] [address] [facility] [id number] [place] [address] Apr, 2014 [facility] [place] [facility] [address] [facility] [id number] [place] [address] Apr, 2014 [facility] [place] [facility] [address] [facility] [id number] [place] [address] Apr, 2014 [facility] [place] [facility] [address] [facility] [id number] [place] [address] Apr, 2014 [facility] [place] [facility] [address] [facility] [id number] [place] [address] Apr, 2014 [facility] [place] [facility] [address] [facility] [id number] [place] [address] 04 Apr, 2014 [facility] [place] [facility] [address] [id number] [place] [address] 30 Mar, 2014 [facility] [place] [facility] [address] [id number] [place] [address] 30 Mar, 2014 [facility] [place] [facility] [address] [id number] [place] [address] Mar, [facility] [place] [facility] [address] [id number] [place] [address] Mar, [facility] [place] [facility] [address] [id number] [place] [address] Mar, [facility] [place] [facility] [address] [id number] [place] [address] 15 Mar, 2014 [facility] [place] [facility] [address] [id number] [place] [address] Mar, [facility] [place] [facility] [address] [id number] [place] [address] 15 Mar, 2014 [facility] [place] [facility] [address] [id number] [place] [address] Mar, [facility] [place] [facility] [address] [id number] [place] [address] 15 Mar, 2014 [facility] [place] [facility] [address] [id number], [place] [address] 14 Mar, 2014 [facility] [place] [facility] [address] [id number], [place] [address] 14 Mar, 2014 [facility] [place] [facility] [address] [id number] [place] [address] Mar, [facility] [place] [facility] [address] [id number] [place] [address] 14 Mar, 2014 [facility] [place] [facility] [address] [id number] [place] [address] 14 Mar, 2014 [facility] [place] [facility] [address] [id number] [place] [address] 14 Mar, 2014 [facility] [address] [id number] [place] [address] 09 Mar, 2014 [facility] [place] [facility] [address] [id number] [place] [address] 09 Mar, 2014 [facility] [address] [id number] [place] [address] 16 Feb, 2014 [facility] [place] [facility] [address] [id number] [place] [address] 16 Feb, 2014 [facility] [address] [id number] [place] [address] 15 Feb, 2014 [facility] [place] [facility] [address] [id number] [place] [address] 15 Feb, 2014 [facility] [place] [facility] [address] [id number] [place] [address] 15 Feb, 2014 [facility] [address] [id number] [place] [address] 15 Feb, 2014 [facility] [place] [facility] [address] [id number] [place] [address] Jan, [facility] [address] [id number] [place] [address] Jan, [facility] [place] [facility] [address] [id number] [place] [address] Jan, [facility] [place] [facility] [address] [id number] [place] [address] Jan, [facility] [place] [facility] [address] [id number] [place] [address] Jan, [facility] [place] [facility] [address] [id number] [place] [address] Jan, [facility] [place] [facility] [address] [id number] [place] [address] Jan, [facility] [place] [facility] [address] [id number] [place] [address] Jan, [facility] [place] [facility] [address] [id number] [place] [address] Jan, [facility] [place] [facility] [address] [id number] [place] [address] Jan, [facility] [place] [facility] [address] [id number] [place] [address] Dec, [facility] [place] [facility] [address] [id number] [place] [address] Dec, [facility] [place] [facility] [address] [id number] [place] [address] Dec, [facility] [place] [facility] [address] [id number] [place] [address] Dec, [facility] [place] [facility] [address] [id number] [place] [address] 16 Nov, 2013 [facility] [place] [facility] [address] [id number] [place] [address] 16 Nov, 2013 [facility] [place] [facility] [address] [id number], [place] [address] Nov, [facility] [place] [facility] [address] [id number], [place] [address] Nov, [facility] [place] [facility] [address] [id number], [place] [address] Nov, 2013 [facility] [place] [facility] [address] [id number] [place] [address] Nov, [facility] [place] [facility] [address] [id number] [place] [address] Oct, [facility] [place] [facility] [address] [id number], [place] [address] Oct, [facility] [place] [facility] [address] [id number], [place] [address] Oct, [facility] [place] [facility] [address] [id number] [place] [address] Oct, [facility] [place] [facility] [address] [id number] [place] [address] Sep, [facility] [place] [facility] [address] [id number] [place] [address] Sep, [facility] [place] [facility] [address] [id number] [place] [address] Sep, [facility] [place] [facility] [address] [id number] [place] [address] Sep, [facility] [place] [facility] [address] [id number] [place] [address] Sep, [facility] [place] [facility] [address] [id number] [place] [address] Sep, [facility] [place] [facility] [address] [id number] [place] [address] July, [facility] [place] [facility] [address] [id number] [place] [address] July, [facility] [place] [facility] [address] [id number] [place] [address] July, [facility] [place] [facility] [address] [id number] [place] [address] July, [facility] [place] [facility] [address] [id number] [place] [address] Jun, [facility] [place] [facility] [address] [id number] [place] [address] Jun, [facility] [place] [facility] [address] [id number] [place] [address] Jun, [facility] [place] [facility] [address] [id number] [place] [address] Jun, [facility] [place] [facility] [address] [id number] [place] [address] Jun, [facility] [place] [facility] [address] [id number] [place] [address] Jun, [facility] [place] [facility] [address] [id number] [place] [address] May, [facility] [place] [facility] [address] [id number] [place] [address] May, [facility] [place] [facility] [address] [id number] [place] [address] Apr, [facility] [place] [facility] [address] [id number] [place] [address] Apr, [facility] [place] [facility] [address] [facility] [id number] [place] [address] Apr, [facility] [place] [facility] [address] [facility] [id number] [place] [address] Apr, [facility] [place] [facility] [address] [facility] [id number] [place] [address] Apr, [facility] [place] [facility] [address] [facility] [id number] [place] [address] Apr, [facility] [place] [facility] [address] [facility] [id number] [place] [address] Apr, [facility] [place] [facility] [address] [id number], [place] [address] Mar, [facility] [place] [facility] [address] [id number] [place] [address] Mar, [facility] [place] [facility] [address] [id number] [place] [address] Mar, [facility] [place] [facility] [address] [facility] [id number], [place] [address] Mar, [facility] [place] [facility] [address] [facility] [id number], [place] [address] Mar, [facility] [address] [id number] [place] [address] Mar, [facility] [place] [facility] [address] [id number] [place] [address] Mar, [facility] [place] [facility] [address] [facility] [id number] [place] [address] Mar, [facility] [place] [facility] [address] [id number] [place] [address] Feb, [facility] [place] [facility] [address] [id number] [place] [address] Feb, [facility] [place] [facility] [address] [id number] [place] [address] Feb, [facility] [place] [facility] [address] [facility] [id number] [place] [address] Feb, [facility] [place] [facility] [address] [id number] [place] [address] Feb, [facility] [place] [facility] [address] [facility] [id number] [place] [address] Feb, [facility] [place] [facility] [address] [facility] [id number] [place] [address] Feb, [facility] [place] [facility] [address] [id number] [place] [address] Jan, [facility] [place] [facility] [address] [id number] [place] [address] Jan, [facility] [place] [facility] [address] [id number] [place] [address] Jan, [facility] [place] [facility] [address] [id number] [place] [address] Jan, [facility] [place] [facility] [address] [facility] [id number] [place] [address] Jan, [facility] [place] [facility] [address] [id number] [place] [address] Jan, [facility] [place] [facility] [address] [id number] [place] [id number] Jan, [facility] [place] [facility] [address] [id number] [place] [id number] Jan, [facility] [address] [id number] [place] [address] Dec, [facility] [place] [facility] [address] [id number] [place] [address] Dec, [facility] [address] [id number] [place] [address] Dec, [facility] [address] [id number] [place] [address] Dec, [facility] [address] [id number] [place] [address] Dec, [facility] [address] [id number], [place] [address] Dec, [facility] [address] [id number] [place] [address] Dec, [facility] [address] [id number], [place] [address] Dec, [facility] [place] [facility] [address] [id number], [place] [address] Dec, [facility] [place] [facility] [address] [id number], [place] [address] Dec, [facility] [place] [facility] [address] [id number] [place] [id number] Nov, [facility] [place] [facility] [address] [id number][place] [id number] Nov, [facility] [place] [facility] [address] [id number], [place] [address] 24 Nov, 2012 [facility] [place] [facility] [address] [id number] [place] [address] 20 Nov, 2012 [facility] [place] [facility] [address] [id number] [place] [address] Nov, [facility] [place] [facility] [address] [id number] [place] [address] Nov, [facility] [place] [facility] [address] [id number] [place] [address] 10 Nov, 2012 [facility] [place] [facility] [address] [id number] [place] [address] Nov, [facility] [place] [facility] [address] [id number] [place] [address] Oct, [facility] [place] [facility] [address] [id number] [place] [address] Oct, [facility] [place] [facility] [address] [id number] [place] [address] Oct, [facility] [place] [facility] [address] [id number] [place] [address] Sep, [facility] [place] [facility] [address] [id number] [place] [address] Sep, [facility] [place] [facility] [address] [id number] [place] [address] Sep, [facility] [place] [facility] [address] [id number] [place] [address] Sep, [facility] [place] [facility] [address] [id number] [place] [address] Sep, [facility] [place] [facility] [address] [id number] [place] [address] Aug, [facility] [place] [facility] [address] [id number] [place] [address] Aug, [facility] [place] [facility] [address] [id number] [place] [address] Aug, [facility] [address] [id number] [place] [address] Aug, [facility] [place] [facility] [address] [id number] [place] [address] Aug, [facility] [address] [id number] [place] [address] Aug, [facility] [place] [facility] [address] [id number] [place] [address] July, [facility] [address] [id number] [place] [address] July, [facility] [address] [id number] [place] [address] July, [facility] [address] [id number] [place] [address] July, [facility] [place] [facility] [address] [id number] [place] [address] July, [facility] [address] [id number] [place] [address] July, [facility] [place] [facility] [address] [id number] [place] [address] Jun, [facility] [address] [id number] [place] [address] Jun, [facility] [place] [facility] [address] [id number] [place] [address] Jun, [facility] [place] [facility] [address] [id number] [place] [address] Jun, [facility] [place] [facility] [address] [id number] [place] [address] May, [facility] [facility] [address] [id number] [place] [address] May, [facility] [place] [facility] [address] [id number] [place] [address] 06 May, 2012 [facility] [address] [id number] [place] [address] Apr, [facility] [address] [id number] [place] [address] Mar, [facility] [address] [id number] [place] [address] 18 Mar, 2012 [facility] [address] [id number] [place] [address] 17 Mar, 2012 [facility] [address] [id number] [place] [address] 16 Mar, 2012 [facility] [address] [id number] [place] [address] 15 Mar, 2012 [facility] [address] [id number] [place] [address] Feb, [facility] [address] [id number] [place] [address] 31 Feb, 2012 [facility] [address] [id number] [place] [address] Feb, [facility] [address] [facility] [id number] [place] [address] 17 Feb, 2012 [facility] [address] [id number] [place] [address] Jan, [facility] [address] [id number] [place] [address] Jan, [facility] [address] [id number] [place] [address] Jan, [facility] [address] [id number] [place] [address] Jan, [facility] [address] [id number] [place] [address] Dec, [facility] [address] [id number] [place] [address] Dec, [facility] [address] [id number] [place] [address] Nov, [facility] [address] [id number] [place] [address] Oct, [facility] [address] [id number] [place] [address] Oct, [facility] [address] [id number] [place] [address] Oct, [facility] [address] [id number] [place] [address] Oct, [facility] [address] [id number] [place] [address] Oct, [facility] [address] [id number] [place] [address] Sep, [facility] [address] [id number] [place] [address] Sep, [facility] [address] [id number] [place] [address] Aug, [address] [id number] Aug, [facility] [address] [id number] [place] [address] Aug, [facility] [address] [id number] [place] [address] July, [facility] [address] [id number] [place] [address] July, [facility] [address] [id number] [place] [address] Jun, [facility] [address] [id number] [place] [address] 23 Jun, 2011 [facility] [address] [id number] [place] [address] 16 Jun, 2011 [facility] [address] [id number] [place] [id number] Jun, [facility] [place] [facility] [address] [id number] [place] [address] 15 Apr, 2011 [facility] [place] [facility] [address] [id number] [place] [address] 15 Apr, 2011 [facility] [place] [facility] [address] [id number] [place] [address] Apr, [facility] [place] [facility] [address] [id number] [place] [address] Mar, [facility] [place] [facility] [address] [id number] [place] [address] Mar, [facility] [place] [facility] [address] [id number] [place] [address] Mar, [facility] [place] [facility] [address] [id number] [place] [address] Mar, [facility] [place] [facility] [address] [id number] [place] [address] Mar, [facility] [place] [facility] [address] [id number] [place] [address] Jan, [facility] [place] [facility] [address] [id number] [place] [address] Jan, [facility] [place] [facility] [address] [id number] [place] [address] Jan, [facility] [place] [facility] [address] [id number] [place] [address] Mar, [facility] [place] [facility] [address] [id number] [place] [address] Mar, [facility] [place] [facility] [address] [id number] [place] [address] 20 Feb, 2010 [facility] [address] [id number] [place] [address] 16 Feb, 2010 [facility] [address] [id number] [place] [address] 16 Feb, 2010 [facility] [address] [facility] [id number] [place] [address] 17 Jan, 2010 [facility] [address] [id number] [place] [address] 17 Jan, 2010 [facility] [address] [facility] [id number] [place] [id number], [place] [address] 19 Dec, 2009 [facility] [address] [facility] [id number] [place] [address] 19 Dec, 2009 [facility] [address] [facility] [id number] [place] [address] 10 May, 2009 [facility] [address] [facility] [id number] [place] [address] 10 Apr, 2009 [facility] [address] [facility] [id number] [place] [address] 07 Feb, 2009 [facility] [address] [facility] [id number], [place] [address] 03 Feb, 2009 [facility] [address] [facility] [id number] [place] [address] 30 Jan, 2009 [facility] [address] [facility] [id number], [place] [address] Jan, [facility] [address] [facility] [id number] [place] [address] Jan, [facility] [address] [facility] [id number] [place] [address] Jan, [facility] [address] [facility] [id number], [place] [address] Jan, IMMUNIZATIONS No Known Immunizations SOCIAL HISTORY Never Assessed REASON FOR VISIT PLAN OF CARE VITAL SIGNS Height 66 in 2014-03-22 Weight 280 lbs 2014-03-22 Temperature 98.6 degrees Fahrenheit 2014-03-22 Heart Rate 86 bpm 2014-03-22 Respiratory Rate 22 2014-03-22 Blood pressure systolic 138 mmHg 2014-03-22 Blood pressure diastolic 86 mmHg 2014-03-22 MEDICATIONS Unknown Medications RESULTS No Results PROCEDURES Procedure Date Ordered Result Body Site X-RAY EXAM OF NECK SPINE Mar 22, 2014 INSTRUCTIONS MEDICATIONS ADMINISTERED No Known Medications [...]
--- OUTSIDE RECORDS SUMMARY | 2018-10-04 07:12 | XMS REPORT ---
Author Author ESTHER CHAVEZ [facility] Address [address] [place] [address] Care Team Providers Care Design Teacher Name Role Phone KATHYCIARA VILLEGASHANY Unavailable PROBLEMS Type Condition ICD9-CM Code [id number] Code Onset Dates Condition Status SNOMED Code Problem MITCHELL treated with BiPAP G47.33 Active 22818207 Problem Type 2 diabetes mellitus with diabetic polyneuropathy E11.42 Active 663778158 Problem History of DVT (deep vein thrombosis) Z86.718 Active 636867350 Problem History of weight loss surgery Z98.84 Active 402183325 Problem Chronic systolic (congestive) heart failure I50.22 Active 904555434 Problem Essential hypertension I10 Active 47632739 Problem Chronic prescription opiate use Z79.891 Active 905964102 Problem Primary osteoarthritis of both knees M17.0 Active 652044241 Problem Chronic pain syndrome G89.4 Active 417328803 Problem Nocturnal hypoxia G47.34 Active 989312695 Problem Obesity, morbid, BMI 40.0-49.9 E66.01 Active 936801814 Problem Tobacco abuse Z72.0 Active 979684818 Problem Macrocytosis D75.89 Active 359932808 Problem Pure hypercholesterolemia E78.00 Active 414743724 Problem Posttraumatic stress disorder F43.10 Active 85118094 Problem Non-ischemic cardiomyopathy I42.9 Active 21124182 Problem Obstructive sleep apnea syndrome G47.33 Active 46570702 Problem Acute right-sided low back pain with right-sided sciatica M54.41 Active 55378270 Problem Gastroesophageal reflux disease, esophagitis presence not specified K21.9 Active 808797022 Problem Chronic obstructive pulmonary disease, unspecified COPD type J44.9 Active 59646037 Problem BMI 45.0-49.9, adult Z68.42 Active 150849669 Problem Mild episode of recurrent major depressive disorder F33.0 Active 600945159 Problem Mood disorder F39 Active 69895021 Problem Primary insomnia F51.01 Active 8832663 ALLERGIES No Information ENCOUNTERS Encounter Location Date Diagnosis [facility] [address] [place] [address] Oct, [facility] [address], [place] [address] Sep, Type 2 diabetes mellitus with diabetic polyneuropathy E11.42 [facility] [address], [place] [address] Aug, Chronic pain syndrome G89.4 [facility] [address], [place] [address] Aug, [facility] [id number] [place] [address] Aug, Type 2 diabetes mellitus with diabetic polyneuropathy E11.[address] [address] July, Chronic pain syndrome G89.4 [facility] [address], [place] [address] July, [facility] [id number], [place] [address] July, Encounter for Medicare annual wellness exam [...] and Chronic systolic congestive heart failure I50.22 [facility] [address], [place] [address] July, Type 2 diabetes mellitus with diabetic polyneuropathy E11.42 [facility] [id number], [place] [address] July, [facility] [address], [place] [address] July, Urinary hesitancy R39.11 [facility] [address], [place] [address] July, Chronic pain syndrome G89.4 [facility] [address], [place] [address] Jun, Mass of shoulder region R22.30 [place] [id number] [place] [address] Jun, Mass of shoulder region R22.30 [facility] [address] [place] [address] Jun, Chronic pain syndrome G89.4 [place] [address] [place] [address] May, Type 2 diabetes mellitus with diabetic polyneuropathy E11.42 ; Mass of shoulder region R22.30 and Morbid obesity E66.01 [place] [address], [place] [address] 07 May, 2018 Chronic pain syndrome G89.4 [place] [facility] [id number] [place] [address] 04 May, 2018 Mood disorder F39 ; Posttraumatic stress disorder F43.10 and Morbid obesity E66.01 [place] [address], [place] [address] 14 Apr, 2018 Major depressive disorder, recurrent episode, unspecified severity F33.9 [place] [address], [place] [address] 13 Apr, 2018 Major depressive disorder, recurrent episode, unspecified severity F33.9 [place] [id number] [place] [address] 07 Apr, 2018 Chronic pain syndrome G89.4 [facility] [address], [place] [address] 14 Mar, 2018 Pain in right foot M79.671 ; Type 2 diabetes mellitus with diabetic polyneuropathy E11.42 ; Chronic pain syndrome G89.4 and BMI 50.0-59.9, adult Z68.43 [facility] [id number] [place] [address] Mar, [facility] [id number] [place] [address] Mar, [facility] [address] [address] Mar, Chronic pain syndrome G89.4 [place] [address] [address] Feb, Chronic pain syndrome G89.4 [place] [id number] [place] [address] Jan, Obstructive sleep apnea syndrome G47.33 [place] [facility] [id number] [place] [address] Jan, Type 2 diabetes mellitus with diabetic polyneuropathy E11.42 ; Chronic pain syndrome G89.4 ; Gastroesophageal reflux disease, esophagitis presence not specified K21.9 ; Essential hypertension I10 ; Pure hypercholesterolemia E78.00 ; Chronic prescription opiate use Z79.891 ; Obstructive sleep apnea syndrome G47.33 and BMI 50.0-59.9, adult Z68.43 [place] [id number] [place] [address] 20 Jan, 2018 History of weight loss surgery Z98.84 [place] [id number] [place] [address] Jan, [place] [address] [address] Jan, Chronic pain syndrome G89.4 [place] [id number] [place] [address] Jan, [facility] [address] [address] Jan, [facility] [id number] [place] [address] Dec, [facility] [id number] [place] [address] Dec, Chronic pain syndrome G89.4 [facility] [id number] [place] [address] Dec, Injury of left knee, subsequent encounter S89.92XD and Acute pain of left knee M25.562 [place] [id number] [place] [address] Dec, [place] [facility] [id number] [place] [address] Dec, Injury of left knee, initial encounter S89.92XA and BMI 45.0-49.9, adult Z68.42 [place] [id number] [place] [address] Nov, Chest discomfort R07.89 ; Shortness of breath R06.02 ; Chronic systolic congestive heart failure I50.22 and Type 2 diabetes mellitus with diabetic polyneuropathy E11.42 [place] [id number] [place] [address] Nov, Chronic pain syndrome G89.4 [place] [id number] [place] [address] Oct, BMI 45.0-49.9, adult Z68.42 ; Type 2 diabetes mellitus with diabetic polyneuropathy E11.42 ; Chronic pain syndrome G89.4 ; Gastroesophageal reflux disease, esophagitis presence not specified K21.9 ; Decreased pedal pulses R09.89 and Precordial pain R07.2 [place] [id number] [place] [address] Oct, [place] [id number] [place] [address] Oct, Mood disorder F39 [address], [place] [address] Oct, Mood disorder F39 ; Posttraumatic stress disorder F43.10 and BMI 45.0-49.9, adult Z68.42 [place] [address], [place] [address] Sep, Primary osteoarthritis of both knees M17.0 and Chronic pain syndrome G89.4 [place] [id number] [address] Sep, Mood disorder F39 and Posttraumatic stress disorder F43.10 [place] [id number] [place] [address] Aug, Primary osteoarthritis of both knees M17.0 and Chronic pain syndrome G89.4 [place] [id number] [place] [address] July, Primary osteoarthritis of both knees M17.0 and Chronic pain syndrome G89.4 [place] [address] [place] [address] July, Type 2 diabetes mellitus with diabetic polyneuropathy E11.42 ; Essential hypertension I10 ; Pure hypercholesterolemia E78.0 ; Chronic prescription opiate use Z79.891 ; Tobacco abuse Z72.0 ; Primary osteoarthritis of both knees M17.0 ; Primary insomnia F51.01 and BMI 45.0-49.9, adult Z68.42 [place] [address] [place] [address] July, Medicare annual wellness visit, initial Z00.00 [...] immunization Z23 [facility] [place] [facility] [id number] [place] [address] July, Primary osteoarthritis of both knees M17.0 and Chronic pain syndrome G89.4 [facility] [id number] [place] [address] Jun, Infection of right ear H66.91 ; Wheezing on auscultation R06.2 and BMI 45.0-49.9, adult Z68.42 [facility] [id number] [place] [address] Jun, [place] [address] [address] Jun, Primary osteoarthritis of both knees M17.0 and Chronic pain syndrome G89.4 [facility] [id number] [place] [address] May, [facility] [id number] [place] [address] May, BMI 45.0-49.9, adult Z68.42 ; Mood disorder F39 and Posttraumatic stress disorder F43.10 [place] [id number] [place] [address] May, [facility] [id number] [place] [address] May, Primary osteoarthritis of both knees M17.0 and Chronic pain syndrome G89.4 [facility] [id number] [place] [address] May, Mood disorder F39 [facility] [id number] [place] [address] Apr, Type 2 diabetes mellitus with diabetic polyneuropathy E11.42 [facility] [id number] [place] [address] Apr, [facility] [address] [place] [address] Apr, Primary osteoarthritis of both knees M17.0 and Chronic pain syndrome G89.4 [facility] [id number] [place] [address] Apr, Mood disorder F39 [facility] [id number] [place] [address] Mar, Mood disorder F39 and Posttraumatic stress disorder F43.10 [facility] [id number] [place] [address] Mar, Primary osteoarthritis of both knees M17.0 and Chronic pain syndrome G89.4 [facility] [id number] [place] [address] Feb, Primary osteoarthritis of both knees M17.0 and Chronic pain syndrome G89.4 [facility] [id number] [place] [address] Feb, Mood disorder F39 [facility] [id number] [place] [address] Jan, Type 2 diabetes mellitus with diabetic polyneuropathy E11.42 ; Primary osteoarthritis of both knees M17.0 ; Mood disorder F39 ; Obesity, morbid, BMI 40.0-49.9 E66.01 ; Chronic prescription opiate use Z79.891 ; Acute suppurative otitis media of both ears without spontaneous rupture of tympanic membranes, recurrence not specified H66.003 and BMI 45.0-49.9, adult Z68.42 [facility] [id number] [place] [address] Jan, Primary osteoarthritis of both knees M17.0 and Chronic pain syndrome G89.4 [facility] [id number] [place] [address] Dec, Mood disorder F39 and Posttraumatic stress disorder F43.10 [facility] [id number] [place] [address] Dec, Primary osteoarthritis of both knees M17.0 and Chronic pain syndrome G89.4 [facility] [id number] [place] [address] 18 Nov, 2016 Chronic pain syndrome G89.4 [facility] [id number] [place] [address] 15 Nov, 2016 Primary osteoarthritis of both knees M17.0 and Chronic pain syndrome G89.4 [facility] [id number] [place] [address] 13 Nov, 2016 Type 2 diabetes mellitus with diabetic polyneuropathy E11.42 and Chronic pain syndrome G89.4 [facility] [id number] [place] [address] 12 Nov, 2016 Posttraumatic stress disorder F43.10 and Mood disorder F39 [facility] [id number] [place] [address] Oct, Chronic pain syndrome G89.4 [facility] [id number] [place] [address] Oct, Type 2 diabetes mellitus with diabetic polyneuropathy E11.42 ; BMI 45.0-49.9, adult Z68.42 ; Primary osteoarthritis of both knees M17.0 and Skin lesion L98.9 [facility] [id number] [place] [address] Oct, Chronic pain syndrome G89.4 [facility] [id number] [place] [address] Sep, Chronic pain syndrome G89.4 [facility] [id number] [place] [address] Sep, [facility] [id number] [place] [address] Sep, Chronic pain syndrome G89.4 [facility] [id number] [place] [address] Aug, Chronic pain syndrome G89.4 [facility] [address], [place] [address] Aug, [facility] [id number] [place] [address] Aug, Macrocytosis D75.89 and Pure hypercholesterolemia E78.0 [facility] [id number] [place] [address] Aug, Pure hypercholesterolemia E78.0 [facility] [id number] [place] [address] Aug, Macrocytosis D75.89 [facility] [id number] [place] [address] Aug, Pure hypercholesterolemia E78.0 ; Type 2 diabetes mellitus with diabetic polyneuropathy E11.42 ; MITCHELL treated with BiPAP G47.33 and Chronic pain syndrome G89.4 [facility] [id number] [place] [address] Aug, [facility] [id number] [place] [address] Aug, Hemorrhoids, unspecified hemorrhoid type K64.9 [facility] [address], [place] [address] Aug, Chronic pain syndrome G89.4 ; Type 2 diabetes mellitus with diabetic polyneuropathy E11.42 ; Hemorrhoids, unspecified hemorrhoid type K64.9 ; Tobacco abuse Z72.0 and Primary osteoarthritis of both knees M17.0 [facility] [address], [place] [address] July, Chronic pain syndrome G89.4 [facility] [id number] [place] [address] July, [facility] [address], [place] [address] Jun, Chronic pain syndrome G89.4 [facility] [id number] [place] [address] Jun, Chronic pain syndrome G89.4 [facility] [id number] [place] [address] Jun, Severe major depression with psychotic features F32.3 and Posttraumatic stress disorder F43.10 [facility] [id number] [place] [address] Jun, Chronic pain syndrome G89.4 [facility] [id number] [place] [address] Jun, [facility] [id number] [place] [address] May, Chronic pain syndrome G89.4 [facility] [id number] [place] [address] May, Tobacco abuse Z72.0 [facility] [id number] [place] [address] May, [facility] [id number] [place] [address] Apr, Chronic pain syndrome G89.4 [facility] [id number] [place] [address] Apr, [facility] [id number] [place] [address] Apr, Right foot pain M79.671 [facility] [id number] [place] [address] Mar, Type 2 diabetes mellitus with diabetic polyneuropathy E11.42 ; MITCHELL treated with BiPAP G47.33 ; Pure hypercholesterolemia E78.0 ; Chronic pain syndrome G89.4 ; Tobacco abuse Z72.0 and Obesity, morbid, BMI 40.0-49.9 E66.01 [facility] [id number] [place] [address] Mar, [facility] [address], [place] [address] Mar, [facility] [address], [place] [address] Mar, [facility] [address], [place] [address] Mar, [facility] [id number] [place] [address] Mar, [facility] [address], [place] [address] Mar, Severe major depression with psychotic features F32.3 and Posttraumatic stress disorder F43.10 [facility] [address], [place] [address] Mar, [facility] [id number] [place] [address] Feb, [facility] [address], [place] [address] Feb, [facility] [address], [place] [address] Jan, [facility] [address], [place] [address] Jan, [facility] [address], [place] [address] Dec, Posttraumatic stress disorder F43.10 and Severe major depression with psychotic features F32.3 [facility] [address], [place] [address] Dec, Type 2 diabetes mellitus with diabetic polyneuropathy E11.42 ; Chronic pain syndrome G89.4 and Acute right-sided low back pain with right-sided sciatica M54.41 [facility] [address], [place] [address] Dec, [facility] [address], [place] [address] Dec, [facility] [id number] [place] [address] Nov, [facility] [id number] [place] [address] Nov, [facility] [id number] [place] [address] Nov, [facility] [id number] [place] [address] Oct, [facility] [id number] [place] [address] Oct, [facility] [id number] [place] [address] Sep, Dental examination Z01.20 [facility] [id number] [place] [address] Sep, [facility] [id number] [place] [address] Sep, Type 2 diabetes mellitus with diabetic polyneuropathy E11.42 ; Chronic pain syndrome G89.4 ; Chronic prescription opiate use Z79.891 ; Injury of right index finger, sequela S69.91XS and Anejaculation N50.8 [facility] [id number] [place] [address] Aug, [facility] [id number] [place] [address] Aug, [facility] [id number] [place] [address] Aug, Cellulitis of finger of right hand L03.011 [facility] [id number] [place] [address] July, [facility] [id number] [address] July, [facility] [address], [place] [address] Jun, Onychomycosis B35.1 [facility] [id number] [place] [address] Jun, Severe major depression with psychotic features F32.3 and Posttraumatic stress disorder F43.10 [facility] [id number] [place] [address] Jun, [facility] [id number] [place] [address] Jun, [facility] [id number] [place] [address] Jun, [facility] [id number] [place] [address] May, Type 2 diabetes mellitus with diabetic polyneuropathy E11.42 [facility] [address], [place] [address] May, Type 2 diabetes mellitus with diabetic polyneuropathy E11.42 and Urinary hesitancy R39.11 [facility] [id number] [place] [address] May, Type 2 diabetes mellitus with diabetic polyneuropathy E11.42 ; Left hip pain M25.552 and Benign prostatic hyperplasia with lower urinary tract symptoms, unspecified morphology N40.1 [facility] [id number], [place] [address] May, [facility] [id number] [place] [id number] Apr, Severe major depression with psychotic features F32.3 and Posttraumatic stress disorder F43.10 [facility] [id number], [place] [address] Apr, [facility] [id number], [place] [address] Mar, [facility] [id number] [place] [id number] Mar, Dysuria R30.0 and Urinary hesitancy R39.11 [facility] [address] [id number] [place] [place] [address] Mar, Onychomycosis B35.1 [facility] [id number] [place] [address] Mar, [facility] [id number] [place] [address] Feb, [facility] [id number] [place] [address] Jan, [facility] [id number] [place] [address] Jan, Posttraumatic stress disorder F43.10 and Severe major depression with psychotic features F32.3 [facility] [id number] [place] [address] Jan, [facility] [id number] [place] [address] Jan, Chronic pain syndrome G89.4 ; Type 2 diabetes mellitus with diabetic polyneuropathy E11.42 ; Decreased pedal pulses R09.89 and Paresthesia of both hands R20.2 [facility] [id number] [place] [address] Dec, Posttraumatic stress disorder F43.10 and Severe major depression with psychotic features F32.3 [facility] [id number] [place] [address] Dec, [facility] [id number] [place] [address] Dec, [facility] [id number] [place] [address] Dec, Onychomycosis B35.1 [facility] [id number] [place] [address] Dec, [facility] [id number] [place] [address] Dec, [facility] [id number] [place] [address] Nov, [facility] [id number] [place] [address] Oct, Depression, major, recurrent, moderate 296.32 and Posttraumatic stress disorder 309.81 [address] [id number] [place] [address] Oct, [facility] [id number] [place] [address] Oct, [place] [id number] [place] [address] Oct, [facility] [id number] [place] [address] Sep, Posttraumatic stress disorder 309.81 and Depression, major, recurrent, moderate 296.32 [place] [facility] [id number] [place] [address] Sep, [facility] [facility] [id number] [place] [address] Sep, Chronic airway obstruction, not elsewhere classified [id number] [place] [address] Sep, Onychomycosis 110.1 and DM neuro manif type II 250.60 [place] [id number] [place] [address] Sep, Chronic pain 338.29 ; Chronic airway obstruction, not elsewhere classified 496 ; Osteoarthritis of knees, bilateral 715.96 and On potassium wasting diuretic therapy V58.[address] [place] [address] Sep, Insect bites 919.4 ; Sinusitis 473.9 and GERD (gastroesophageal reflux disease) 530.81 [facility] [id number] [address] Aug, Depression, major, recurrent, moderate 296.32 and Posttraumatic stress disorder 309.81 [facility] [id number] [place] [address] Aug, [facility] [id number] [place] [address] Aug, [facility] [id number] [place] [address] Aug, [facility] [id number] [place] [address] July, Major depressive disorder, recurrent episode, moderate 296.32 and Posttraumatic stress disorder 309.81 [facility] [address] [address] July, [facility] [id number] [place] [address] July, [facility] [address] [address] July, [facility] [address] [address] July, [facility] [id number] [address] Jun, [facility] [address] [address] Jun, [facility] [address], [place] [address] May, [facility] [address] [address] May, [facility] [id number] [address] 18 May, 2014 [facility] [place] [facility] [address] [id number] [place] [address] May, 2014 [facility] [place] [facility] [address] [id number] [place] [address] May, 2014 [facility] [place] [facility] [address] [id number] [place] [address] May, 2014 [facility] [place] [facility] [address] [id number] [place] [address] May, 2014 [facility] [place] [facility] [address] [id number] [place] [address] May, [facility] [place] [facility] [address] [facility] [id number] [place] [address] May, [facility] [place] [facility] [address] [facility] [id number] [place] [address] Apr, 2014 [facility] [place] [facility] [address] [facility] [id number] [place] [address] Apr, 2014 [facility] [place] [facility] [address] [facility] [id number] [place] [address] Apr, 2014 [facility] [place] [facility] [address] [facility] [id number] [place] [address] Apr, 2014 [facility] [place] [facility] [address] [facility] [id number] [place] [address] Apr, 2014 [facility] [place] [facility] [address] [facility] [id number] [place] [address] Apr, 2014 [facility] [place] [facility] [address] [facility] [id number] [place] [address] Apr, 2014 [facility] [place] [facility] [address] [facility] [id number] [place] [address] Apr, 2014 [facility] [place] [facility] [address] [facility] [id number] [place] [address] 04 Apr, 2014 [facility] [place] [facility] [address] [id number] [place] [address] 30 Mar, 2014 [facility] [place] [facility] [address] [id number] [place] [address] 30 Mar, 2014 [facility] [place] [facility] [address] [id number] [place] [address] Mar, [facility] [place] [facility] [address] [id number] [place] [address] Mar, [facility] [place] [facility] [address] [id number] [place] [address] Mar, [facility] [place] [facility] [address] [id number] [place] [address] 15 Mar, 2014 [facility] [place] [facility] [address] [id number] [place] [address] Mar, [facility] [place] [facility] [address] [id number] [place] [address] 15 Mar, 2014 [facility] [place] [facility] [address] [id number] [place] [address] Mar, [facility] [place] [facility] [address] [id number] [place] [address] 15 Mar, 2014 [facility] [place] [facility] [address] [id number], [place] [address] 14 Mar, 2014 [facility] [place] [facility] [address] [id number], [place] [address] 14 Mar, 2014 [facility] [place] [facility] [address] [id number] [place] [address] Mar, [facility] [place] [facility] [address] [id number] [place] [address] 14 Mar, 2014 [facility] [place] [facility] [address] [id number] [place] [address] 14 Mar, 2014 [facility] [place] [facility] [address] [id number] [place] [address] 14 Mar, 2014 [facility] [address] [id number] [place] [address] 09 Mar, 2014 [facility] [place] [facility] [address] [id number] [place] [address] 09 Mar, 2014 [facility] [address] [id number] [place] [address] 16 Feb, 2014 [facility] [place] [facility] [address] [id number] [place] [address] 16 Feb, 2014 [facility] [address] [id number] [place] [address] 15 Feb, 2014 [facility] [place] [facility] [address] [id number] [place] [address] 15 Feb, 2014 [facility] [place] [facility] [address] [id number] [place] [address] 15 Feb, 2014 [facility] [address] [id number] [place] [address] 15 Feb, 2014 [facility] [place] [facility] [address] [id number] [place] [address] Jan, [facility] [address] [id number] [place] [address] Jan, [facility] [place] [facility] [address] [id number] [place] [address] Jan, [facility] [place] [facility] [address] [id number] [place] [address] Jan, [facility] [place] [facility] [address] [id number] [place] [address] Jan, [facility] [place] [facility] [address] [id number] [place] [address] Jan, [facility] [place] [facility] [address] [id number] [place] [address] Jan, [facility] [place] [facility] [address] [id number] [place] [address] Jan, [facility] [place] [facility] [address] [id number] [place] [address] Jan, [facility] [place] [facility] [address] [id number] [place] [address] Jan, [facility] [place] [facility] [address] [id number] [place] [address] Dec, [facility] [place] [facility] [address] [id number] [place] [address] Dec, [facility] [place] [facility] [address] [id number] [place] [address] Dec, [facility] [place] [facility] [address] [id number] [place] [address] Dec, [facility] [place] [facility] [address] [id number] [place] [address] 16 Nov, 2013 [facility] [place] [facility] [address] [id number] [place] [address] 16 Nov, 2013 [facility] [place] [facility] [address] [id number], [place] [address] Nov, [facility] [place] [facility] [address] [id number], [place] [address] Nov, [facility] [place] [facility] [address] [id number], [place] [address] Nov, 2013 [facility] [place] [facility] [address] [id number] [place] [address] Nov, [facility] [place] [facility] [address] [id number] [place] [address] Oct, [facility] [place] [facility] [address] [id number], [place] [address] Oct, [facility] [place] [facility] [address] [id number], [place] [address] Oct, [facility] [place] [facility] [address] [id number] [place] [address] Oct, [facility] [place] [facility] [address] [id number] [place] [address] Sep, [facility] [place] [facility] [address] [id number] [place] [address] Sep, [facility] [place] [facility] [address] [id number] [place] [address] Sep, [facility] [place] [facility] [address] [id number] [place] [address] Sep, [facility] [place] [facility] [address] [id number] [place] [address] Sep, [facility] [place] [facility] [address] [id number] [place] [address] Sep, [facility] [place] [facility] [address] [id number] [place] [address] July, [facility] [place] [facility] [address] [id number] [place] [address] July, [facility] [place] [facility] [address] [id number] [place] [address] July, [facility] [place] [facility] [address] [id number] [place] [address] July, [facility] [place] [facility] [address] [id number] [place] [address] Jun, [facility] [place] [facility] [address] [id number] [place] [address] Jun, [facility] [place] [facility] [address] [id number] [place] [address] Jun, [facility] [place] [facility] [address] [id number] [place] [address] Jun, [facility] [place] [facility] [address] [id number] [place] [address] Jun, [facility] [place] [facility] [address] [id number] [place] [address] Jun, [facility] [place] [facility] [address] [id number] [place] [address] May, [facility] [place] [facility] [address] [id number] [place] [address] May, [facility] [place] [facility] [address] [id number] [place] [address] Apr, [facility] [place] [facility] [address] [id number] [place] [address] Apr, [facility] [place] [facility] [address] [facility] [id number] [place] [address] Apr, [facility] [place] [facility] [address] [facility] [id number] [place] [address] Apr, [facility] [place] [facility] [address] [facility] [id number] [place] [address] Apr, [facility] [place] [facility] [address] [facility] [id number] [place] [address] Apr, [facility] [place] [facility] [address] [facility] [id number] [place] [address] Apr, [facility] [place] [facility] [address] [id number], [place] [address] Mar, [facility] [place] [facility] [address] [id number] [place] [address] Mar, [facility] [place] [facility] [address] [id number] [place] [address] Mar, [facility] [place] [facility] [address] [facility] [id number], [place] [address] Mar, [facility] [place] [facility] [address] [facility] [id number], [place] [address] Mar, [facility] [address] [id number] [place] [address] Mar, [facility] [place] [facility] [address] [id number] [place] [address] Mar, [facility] [place] [facility] [address] [facility] [id number] [place] [address] Mar, [facility] [place] [facility] [address] [id number] [place] [address] Feb, [facility] [place] [facility] [address] [id number] [place] [address] Feb, [facility] [place] [facility] [address] [id number] [place] [address] Feb, [facility] [place] [facility] [address] [facility] [id number] [place] [address] Feb, [facility] [place] [facility] [address] [id number] [place] [address] Feb, [facility] [place] [facility] [address] [facility] [id number] [place] [address] Feb, [facility] [place] [facility] [address] [facility] [id number] [place] [address] Feb, [facility] [place] [facility] [address] [id number] [place] [address] Jan, [facility] [place] [facility] [address] [id number] [place] [address] Jan, [facility] [place] [facility] [address] [id number] [place] [address] Jan, [facility] [place] [facility] [address] [id number] [place] [address] Jan, [facility] [place] [facility] [address] [facility] [id number] [place] [address] Jan, [facility] [place] [facility] [address] [id number] [place] [address] Jan, [facility] [place] [facility] [address] [id number] [place] [address] Jan, [facility] [place] [facility] [address] [id number] [place] [address] Jan, [facility] [address] [id number] [place] [address] Dec, [facility] [place] [facility] [address] [id number] [place] [address] Dec, [facility] [address] [id number] [place] [address] Dec, [facility] [address] [id number] [place] [address] Dec, [facility] [address] [id number] [place] [address] Dec, [facility] [address] [id number], [place] [address] Dec, [facility] [address] [id number] [place] [address] Dec, [facility] [address] [id number], [place] [address] Dec, [facility] [place] [facility] [address] [id number], [place] [address] Dec, [facility] [place] [facility] [address] [id number], [place] [address] Dec, [facility] [place] [facility] [address] [id number] [place] [address] Nov, [facility] [place] [facility] [address] [id number][place] [address] Nov, [facility] [place] [facility] [address] [id number], [place] [address] 24 Nov, 2012 [facility] [place] [facility] [address] [id number] [place] [address] 20 Nov, 2012 [facility] [place] [facility] [address] [id number] [place] [address] Nov, [facility] [place] [facility] [address] [id number] [place] [address] Nov, [facility] [place] [facility] [address] [id number] [place] [address] 10 Nov, 2012 [facility] [place] [facility] [address] [id number] [place] [address] Nov, [facility] [place] [facility] [address] [id number] [place] [address] Oct, [facility] [place] [facility] [address] [id number] [place] [address] Oct, [facility] [place] [facility] [address] [id number] [place] [address] Oct, [facility] [place] [facility] [address] [id number] [place] [address] Sep, [facility] [place] [facility] [address] [id number] [place] [address] Sep, [facility] [place] [facility] [address] [id number] [place] [address] Sep, [facility] [place] [facility] [address] [id number] [place] [address] Sep, [facility] [place] [facility] [address] [id number] [place] [address] Sep, [facility] [place] [facility] [address] [id number] [place] [address] Aug, [facility] [place] [facility] [address] [id number] [place] [address] Aug, [facility] [place] [facility] [address] [id number] [place] [address] Aug, [facility] [address] [id number] [place] [address] Aug, [facility] [place] [facility] [address] [id number] [place] [address] Aug, [facility] [address] [id number] [place] [address] Aug, [facility] [place] [facility] [address] [id number] [place] [address] July, [facility] [address] [id number] [place] [address] July, [facility] [address] [id number] [place] [address] July, [facility] [address] [id number] [place] [address] July, [facility] [place] [facility] [address] [id number] [place] [address] July, [facility] [address] [id number] [place] [address] July, [facility] [place] [facility] [address] [id number] [place] [address] Jun, [facility] [place] [facility] [address] [id number] [place] [address] Jun, [facility] [place] [facility] [address] [id number] [place] [address] Jun, [facility] [place] [facility] [address] [id number] [place] [address] Jun, [facility] [place] [facility] [address] [id number] [place] [address] May, [facility] [place] [facility] [address] [id number] [place] [address] May, [facility] [place] [facility] [address] [id number] [place] [address] 06 May, 2012 [facility] [address] [id number] [place] [address] Apr, [facility] [address] [id number] [place] [address] Mar, [facility] [address] [id number] [place] [address] 18 Mar, 2012 [facility] [address] [id number] [place] [address] 17 Mar, 2012 [facility] [address] [id number] [place] [address] 16 Mar, 2012 [facility] [address] [id number] [place] [address] 15 Mar, 2012 [facility] [address] [id number] [place] [address] Feb, [facility] [address] [id number] [place] [address] 31 Feb, 2012 [facility] [address] [id number] [place] [address] Feb, [facility] [address] [facility] [id number] [place] [address] 17 Feb, 2012 [facility] [address] [id number] [place] [address] Jan, [facility] [address] [id number] [place] [address] Jan, [facility] [address] [id number] [place] [address] Jan, [facility] [address] [id number] [place] [address] Jan, [facility] [address] [id number] [place] [address] Dec, [facility] [address] [id number] [place] [address] Dec, [facility] [address] [id number] [place] [address] Nov, [facility] [address] [id number] [place] [address] Oct, [facility] [address] [id number] [place] [address] Oct, [facility] [address] [id number] [place] [address] Oct, [facility] [address] [id number] [place] [address] Oct, [facility] [address] [id number] [place] [address] Oct, [facility] [address] [id number] [place] [address] Sep, [facility] [address] [id number] [place] [address] Sep, [facility] [address] [id number] [place] [address] Aug, [address] [id number] Aug, [facility] [address] [id number] [place] [address] Aug, [facility] [address] [id number] [place] [address] July, [facility] [place] [facility] [address] [id number] [place] [address] July, [facility] [address] [id number] [place] [address] Jun, [facility] [address] [id number] [place] [address] 23 Jun, 2011 [facility] [place] [facility] [address] [id number] [place] [address] 16 Jun, 2011 [facility] [place] [facility] [address] [id number] [place] [address] Jun, [facility] [place] [facility] [address] [id number] [place] [address] 15 Apr, 2011 [facility] [place] [facility] [address] [id number] [place] [address] 15 Apr, 2011 [facility] [place] [facility] [address] [id number] [place] [address] Apr, [facility] [place] [facility] [address] [id number] [place] [address] Mar, [facility] [place] [facility] [address] [id number] [place] [address] Mar, [facility] [place] [facility] [address] [id number] [place] [address] Mar, [facility] [place] [facility] [address] [id number] [place] [address] Mar, [facility] [place] [facility] [address] [id number] [place] [address] Mar, [facility] [place] [facility] [address] [id number] [place] [address] Jan, [facility] [place] [facility] [address] [id number] [place] [address] Jan, [facility] [place] [facility] [address] [id number] [place] [address] Jan, [facility] [place] [facility] [address] [id number] [place] [address] Mar, [facility] [place] [facility] [address] [id number] [place] [address] Mar, [facility] [place] [facility] [address] [id number] [place] [address] 20 Feb, 2010 [facility] [address] [id number] [place] [address] 16 Feb, 2010 [facility] [address] [id number] [place] [address] 16 Feb, 2010 [facility] [address] [facility] [id number] [place] [address] 17 Jan, 2010 [facility] [address] [id number] [place] [address] 17 Jan, 2010 [facility] [address] [facility] [id number] [place] [address], [place] [address] 19 Dec, 2009 [facility] [address] [facility] [id number] [place] [address] 19 Dec, 2009 [facility] [address] [facility] [id number] [place] [address] 10 May, 2009 [facility] [address] [facility] [id number] [place] [address] 10 Apr, 2009 [facility] [address] [facility] [id number] [place] [address] 07 Feb, 2009 [facility] [address] [facility] [id number], [place] [address] 03 Feb, 2009 [facility] [address] [facility] [id number] [place] [address] 30 Jan, 2009 [facility] [address] [facility] [id number], [place] [address] Jan, [facility] [address] [facility] [id number] [place] [address] Jan, [facility] [address] [facility] [id number] [place] [address] Jan, [facility] [address] [facility] [id number], [place] [address] Jan, IMMUNIZATIONS No Known Immunizations SOCIAL HISTORY [...]
--- OUTSIDE RECORDS SUMMARY | 2018-10-04 07:13 | XMS REPORT ---
Author Author ESTHER CHAVEZ [facility] Address [address] [place] [address] Care Team Providers Care Career Technical Education Instructor Name Role Phone KATHYCIARA VILLEGASHANY Unavailable PROBLEMS Type Condition ICD9-CM Code IQZ10-AK Code Onset Dates Condition Status SNOMED Code Problem MITCHELL treated with BiPAP G47.33 Active 90929233 Problem Type 2 diabetes mellitus with diabetic polyneuropathy E11.42 Active 146987857 Problem History of DVT (deep vein thrombosis) Z86.718 Active 786782672 Problem History of weight loss surgery Z98.84 Active 029139901 Problem Chronic systolic (congestive) heart failure I50.22 Active 024216604 Problem Essential hypertension I10 Active 25720621 Problem Chronic prescription opiate use Z79.891 Active 914869524 Problem Primary osteoarthritis of both knees M17.0 Active 827005276 Problem Chronic pain syndrome G89.4 Active 643583186 Problem Nocturnal hypoxia G47.34 Active 687912659 Problem Obesity, morbid, BMI 40.0-49.9 E66.01 Active 848506125 Problem Tobacco abuse Z72.0 Active 911999270 Problem Macrocytosis D75.89 Active 059048486 Problem Pure hypercholesterolemia E78.00 Active 277440017 Problem Posttraumatic stress disorder F43.10 Active 94322635 Problem Non-ischemic cardiomyopathy I42.9 Active 25113256 Problem Obstructive sleep apnea syndrome G47.33 Active 22602181 Problem Acute right-sided low back pain with right-sided sciatica M54.41 Active 83828138 Problem Gastroesophageal reflux disease, esophagitis presence not specified K21.9 Active 422922683 Problem Chronic obstructive pulmonary disease, unspecified COPD type J44.9 Active 06007893 Problem BMI 45.0-49.9, adult Z68.42 Active 350681992 Problem Mild episode of recurrent major depressive disorder F33.0 Active 401352552 Problem Mood disorder F39 Active 09098948 Problem Primary insomnia F51.01 Active 2072225 ALLERGIES No Information ENCOUNTERS Encounter Location Date Diagnosis [facility] [address] [address] Aug, Chronic pain syndrome G89.4 [facility] [address] [address] Aug, [facility] [address] [address] Aug, Type 2 diabetes mellitus with diabetic polyneuropathy E11.[address] [address] July, Chronic pain syndrome G89.4 [facility] [address] [address] July, [facility] [address] [address] July, Encounter for Medicare annual wellness exam [...] and Chronic systolic congestive heart failure I50.22 [facility] [address] [address] July, Type 2 diabetes mellitus with diabetic polyneuropathy E11.42 [facility] [address] [address] July, [facility] [id number] [place] [address] July, Urinary hesitancy R39.11 [facility] [address] [address] July, Chronic pain syndrome G89.4 [facility] [id number] [address] Jun, Mass of shoulder region R22.30 [facility] [address] [place] [address] Jun, Mass of shoulder region R22.30 [facility] [address] [place] [address] 05 Jun, 2018 Chronic pain syndrome G89.4 [facility] [id number] [place] [address] May, Type 2 diabetes mellitus with diabetic polyneuropathy E11.42 ; Mass of shoulder region R22.30 and Morbid obesity E66.01 [facility] [id number] [place] [address] 07 May, 2018 Chronic pain syndrome G89.4 [facility] [id number] [place] [address] 04 May, 2018 Mood disorder F39 ; Posttraumatic stress disorder F43.10 and Morbid obesity E66.01 [facility] [address] [place] [address] 14 Apr, 2018 Major depressive disorder, recurrent episode, unspecified severity F33.9 [facility] [address] [place] [address] 13 Apr, 2018 Major depressive disorder, recurrent episode, unspecified severity F33.9 [facility] [address] [address] 07 Apr, 2018 Chronic pain syndrome G89.4 [facility] [address] [place] [address] 14 Mar, 2018 Pain in right foot M79.671 ; Type 2 diabetes mellitus with diabetic polyneuropathy E11.42 ; Chronic pain syndrome G89.4 and BMI 50.0-59.9, adult Z68.43 [facility] [address] [address] Mar, [facility] [id number] [address] Mar, [facility] [id number] [place] [address] Mar, Chronic pain syndrome G89.4 [facility] [id number] [place] [address] Feb, Chronic pain syndrome G89.4 [facility] [id number] [place] [address] Jan, Obstructive sleep apnea syndrome G47.33 [facility] [id number] [place] [address] Jan, Type 2 diabetes mellitus with diabetic polyneuropathy E11.42 ; Chronic pain syndrome G89.4 ; Gastroesophageal reflux disease, esophagitis presence not specified K21.9 ; Essential hypertension I10 ; Pure hypercholesterolemia E78.00 ; Chronic prescription opiate use Z79.891 ; Obstructive sleep apnea syndrome G47.33 and BMI 50.0-59.9, adult Z68.43 [facility] [id number] [place] [address] Jan, History of weight loss surgery Z98.84 [facility] [id number] [place] [address] 16 Jan, 2018 [facility] [id number] [place] [address] Jan, Chronic pain syndrome G89.4 [facility] [id number] [place] [address] Jan, [facility] [id number] [place] [address] Jan, [facility] [id number] [place] [address] Dec, [facility] [id number] [place] [address] Dec, Chronic pain syndrome G89.4 [facility] [address] [place] [address] 18 Dec, 2017 Injury of left knee, subsequent encounter S89.92XD and Acute pain of left knee M25.562 [facility] [id number] [place] [address] 12 Dec, 2017 [facility] [address] [address] Dec, Injury of left knee, initial encounter S89.92XA and BMI 45.0-49.9, adult Z68.42 [facility] [address] [address] Nov, Chest discomfort R07.89 ; Shortness of breath R06.02 ; Chronic systolic congestive heart failure I50.22 and Type 2 diabetes mellitus with diabetic polyneuropathy E11.42 [facility] [id number] [place] [address] 20 Nov, 2017 Chronic pain syndrome G89.4 [facility] [id number] [place] [address] Oct, BMI 45.0-49.9, adult Z68.42 ; Type 2 diabetes mellitus with diabetic polyneuropathy E11.42 ; Chronic pain syndrome G89.4 ; Gastroesophageal reflux disease, esophagitis presence not specified K21.9 ; Decreased pedal pulses R09.89 and Precordial pain R07.2 [facility] [id number] [place] [address] Oct, [facility] [id number] [place] [address] Oct, Mood disorder F39 [facility] [id number] [place] [address] Oct, Mood disorder F39 ; Posttraumatic stress disorder F43.10 and BMI 45.0-49.9, adult Z68.42 [facility] [address] [place] [address] Sep, Primary osteoarthritis of both knees M17.0 and Chronic pain syndrome G89.4 [facility] [id number] [place] [address] Sep, Mood disorder F39 and Posttraumatic stress disorder F43.10 [facility] [id number] [place] [address] Aug, Primary osteoarthritis of both knees M17.0 and Chronic pain syndrome G89.4 [facility] [id number] [place] [address] July, Primary osteoarthritis of both knees M17.0 and Chronic pain syndrome G89.4 [facility] [address] [place] [address] July, Type 2 diabetes mellitus with diabetic polyneuropathy E11.42 ; Essential hypertension I10 ; Pure hypercholesterolemia E78.0 ; Chronic prescription opiate use Z79.891 ; Tobacco abuse Z72.0 ; Primary osteoarthritis of both knees M17.0 ; Primary insomnia F51.01 and BMI 45.0-49.9, adult Z68.42 [facility] [address] [place] [address] July, Medicare annual wellness visit, initial Z00.00 [...] specified K21.9 and Encounter for immunization Z23 [facility] [address] [place] [address] July, Primary osteoarthritis of both knees M17.0 and Chronic pain syndrome G89.4 [facility] [address] [place] [address] Jun, Infection of right ear H66.91 ; Wheezing on auscultation R06.2 and BMI 45.0-49.9, adult Z68.42 [facility] [id number] [place] [address] Jun, [facility] [id number] [place] [address] Jun, Primary osteoarthritis of both knees M17.0 and Chronic pain syndrome G89.4 [facility] [id number] [place] [address] May, [facility] [id number] [place] [address] May, BMI 45.0-49.9, adult Z68.42 ; Mood disorder F39 and Posttraumatic stress disorder F43.10 [facility] [id number] [place] [address] May, [facility] [id number] [place] [address] May, Primary osteoarthritis of both knees M17.0 and Chronic pain syndrome G89.4 [facility] [id number] [place] [address] May, Mood disorder F39 [facility] [address] [place] [address] Apr, Type 2 diabetes mellitus with diabetic polyneuropathy E11.42 [facility] [address] [place] [address] Apr, [facility] [id number] [place] [address] Apr, Primary osteoarthritis of both knees M17.0 and Chronic pain syndrome G89.4 [facility] [address] [place] [address] Apr, Mood disorder F39 [facility] [address] [place] [address] Mar, Mood disorder F39 and Posttraumatic stress disorder F43.10 [facility] [id number] [place] [address] Mar, Primary osteoarthritis of both knees M17.0 and Chronic pain syndrome G89.4 [facility] [id number] [place] [address] Feb, Primary osteoarthritis of both knees M17.0 and Chronic pain syndrome G89.4 [facility] [id number] [place] [address] Feb, Mood disorder F39 [facility] [id number] [place] [address] Jan, Type 2 diabetes mellitus with diabetic polyneuropathy E11.42 ; Primary osteoarthritis of both knees M17.0 ; Mood disorder F39 ; Obesity, morbid, BMI 40.0-49.9 E66.01 ; Chronic prescription opiate use Z79.891 ; Acute suppurative otitis media of both ears without spontaneous rupture of tympanic membranes, recurrence not specified H66.003 and BMI 45.0-49.9, adult Z68.42 [facility] [id number] [place] [address] Jan, Primary osteoarthritis of both knees M17.0 and Chronic pain syndrome G89.4 [facility] [id number] [place] [address] Dec, Mood disorder F39 and Posttraumatic stress disorder F43.10 [facility] [id number] [place] [address] Dec, Primary osteoarthritis of both knees M17.0 and Chronic pain syndrome G89.4 [facility] [address] [place] [address] Nov, Chronic pain syndrome G89.4 [facility] [id number] [place] [address] 15 Nov, 2016 Primary osteoarthritis of both knees M17.0 and Chronic pain syndrome G89.4 [facility] [id number] [place] [address] 13 Nov, 2016 Type 2 diabetes mellitus with diabetic polyneuropathy E11.42 and Chronic pain syndrome G89.4 [facility] [id number] [place] [address] 12 Nov, 2016 Posttraumatic stress disorder F43.10 and Mood disorder F39 [facility] [id number] [place] [address] 18 Oct, 2016 Chronic pain syndrome G89.4 [facility] [id number] [place] [address] 16 Oct, 2016 Type 2 diabetes mellitus with diabetic polyneuropathy E11.42 ; BMI 45.0-49.9, adult Z68.42 ; Primary osteoarthritis of both knees M17.0 and Skin lesion L98.9 [facility] [id number] [place] [address] Oct, Chronic pain syndrome G89.4 [facility] [id number] [place] [address] Sep, Chronic pain syndrome G89.4 [facility] [id number] [place] [address] Sep, [facility] [id number] [place] [address] Sep, Chronic pain syndrome G89.4 [facility] [address] [place] [address] Aug, Chronic pain syndrome G89.4 [facility] [id number] [place] [address] Aug, [facility] [id number] [place] [address] Aug, Macrocytosis D75.89 and Pure hypercholesterolemia E78.0 [facility] [id number] [place] [address] Aug, Pure hypercholesterolemia E78.0 [facility] [id number] [place] [address] Aug, Macrocytosis D75.89 [facility] [id number] [place] [address] Aug, Pure hypercholesterolemia E78.0 ; Type 2 diabetes mellitus with diabetic polyneuropathy E11.42 ; MITCHELL treated with BiPAP G47.33 and Chronic pain syndrome G89.4 [facility] [id number] [place] [address] Aug, [facility] [id number] [place] [address] Aug, Hemorrhoids, unspecified hemorrhoid type K64.9 [facility] [id number] [place] [address] Aug, Chronic pain syndrome G89.4 ; Type 2 diabetes mellitus with diabetic polyneuropathy E11.42 ; Hemorrhoids, unspecified hemorrhoid type K64.9 ; Tobacco abuse Z72.0 and Primary osteoarthritis of both knees M17.0 [facility] [id number] [place] [address] July, Chronic pain syndrome G89.4 [facility] [id number] [place] [address] July, [facility] [id number] [place] [address] Jun, Chronic pain syndrome G89.4 [facility] [id number] [place] [address] Jun, Chronic pain syndrome G89.4 [facility] [id number] [place] [address] Jun, Severe major depression with psychotic features F32.3 and Posttraumatic stress disorder F43.10 [facility] [address] [address] Jun, Chronic pain syndrome G89.4 [facility] [id number] [place] [address] Jun, [facility] [id number] [place] [address] May, Chronic pain syndrome G89.4 [facility] [id number] [place] [address] May, Tobacco abuse Z72.0 [facility] [id number] [place] [address] May, [facility] [id number] [place] [address] Apr, Chronic pain syndrome G89.4 [facility] [id number] [place] [address] Apr, [facility] [id number] [place] [address] Apr, Right foot pain M79.671 [facility] [address] [place] [address] Mar, Type 2 diabetes mellitus with diabetic polyneuropathy E11.42 ; MITCHELL treated with BiPAP G47.33 ; Pure hypercholesterolemia E78.0 ; Chronic pain syndrome G89.4 ; Tobacco abuse Z72.0 and Obesity, morbid, BMI 40.0-49.9 E66.01 [facility] [id number] [place] [address] Mar, [facility] [id number] [place] [address] Mar, [facility] [id number] [place] [address] Mar, [facility] [address] [address] Mar, [facility] [address] [address] Mar, [facility] [address] [address] Mar, Severe major depression with psychotic features F32.3 and Posttraumatic stress disorder F43.10 [facility] [address] [place] [address] Mar, [facility] [id number] [place] [address] Feb, [facility] [id number] [place] [address] Feb, [facility] [id number] [place] [address] Jan, [facility] [id number] [address] Jan, [facility] [address] [place] [address] Dec, Posttraumatic stress disorder F43.10 and Severe major depression with psychotic features F32.3 [facility] [address] [address] Dec, Type 2 diabetes mellitus with diabetic polyneuropathy E11.42 ; Chronic pain syndrome G89.4 and Acute right-sided low back pain with right-sided sciatica M54.41 [facility] [address] [address] Dec, [facility] [id number] [place] [address] Dec, [facility] [address] [address] Nov, [facility] [id number] [place] [address] Nov, [facility] [id number] [place] [address] Nov, [facility] [id number] [place] [address] Oct, [facility] [id number] [place] [address] Oct, [facility] [id number] [place] [address] Sep, Dental examination Z01.20 [facility] [id number] [place] [address] Sep, [facility] [id number] [place] [address] Sep, Type 2 diabetes mellitus with diabetic polyneuropathy E11.42 ; Chronic pain syndrome G89.4 ; Chronic prescription opiate use Z79.891 ; Injury of right index finger, sequela S69.91XS and Anejaculation N50.8 [facility] [id number] [place] [address] Aug, [facility] [id number] [place] [address] Aug, [facility] [address] [place] [address] Aug, Cellulitis of finger of right hand L03.011 [facility] [address] [place] [address] July, [facility] [id number] [place] [address] July, [facility] [id number] [place] [address] Jun, Onychomycosis B35.1 [facility] [id number] [place] [address] Jun, Severe major depression with psychotic features F32.3 and Posttraumatic stress disorder F43.10 [facility] [address] [address] Jun, [facility] [address] [address] Jun, [facility] [id number] [place] [address] Jun, [facility] [id number] [place] [address] May, Type 2 diabetes mellitus with diabetic polyneuropathy E11.42 [facility] [id number] [place] [address] May, Type 2 diabetes mellitus with diabetic polyneuropathy E11.42 and Urinary hesitancy R39.11 [facility] [address] [place] [address] May, Type 2 diabetes mellitus with diabetic polyneuropathy E11.42 ; Left hip pain M25.552 and Benign prostatic hyperplasia with lower urinary tract symptoms, unspecified morphology N40.1 [facility] [id number] [place] [address] May, [facility] [id number] [place] [address] Apr, Severe major depression with psychotic features F32.3 and Posttraumatic stress disorder F43.10 [facility] [id number] [address] Apr, [facility] [id number] [place] [address] Mar, [facility] [id number] [address] Mar, Dysuria R30.0 and Urinary hesitancy R39.11 [facility] [id number] [address] Mar, Onychomycosis B35.1 [facility] [id number] [place] [address] Mar, [facility] [id number] [address] Feb, [facility] [id number] [place] [address] Jan, [facility] [id number] [place] [address] Jan, Posttraumatic stress disorder F43.10 and Severe major depression with psychotic features F32.3 [facility] [id number] [place] [address] Jan, [facility] [id number] [place] [address] Jan, Chronic pain syndrome G89.4 ; Type 2 diabetes mellitus with diabetic polyneuropathy E11.42 ; Decreased pedal pulses R09.89 and Paresthesia of both hands R20.2 [facility] [id number] [place] [address] Dec, Posttraumatic stress disorder F43.10 and Severe major depression with psychotic features F32.3 [facility] [id number] [address] Dec, [facility] [id number] [address] Dec, [facility] [id number] [address] Dec, Onychomycosis B35.1 [facility] [id number] [address] Dec, [facility] [id number] [address] Dec, [place] [id number] [place] [address] Nov, [place] [id number] [place] [address] Oct, Depression, major, recurrent, moderate 296.32 and Posttraumatic stress disorder 309.81 [place] [id number] [place] [address] Oct, [place] [id number] [place] [address] Oct, [place] [id number] [place] [address] Oct, [place] [id number] [place] [address] Sep, Posttraumatic stress disorder 309.81 and Depression, major, recurrent, moderate 296.32 [place] [id number] [place] [address] Sep, [place] [id number] [place] [address] Sep, Chronic airway obstruction, not elsewhere classified [id number] [place] [address] Sep, Onychomycosis 110.1 and DM neuro manif type II 250.60 [id number] [place] [address] Sep, Chronic pain 338.29 ; Chronic airway obstruction, not elsewhere classified 496 ; Osteoarthritis of knees, bilateral 715.96 and On potassium wasting diuretic therapy V58.69 [id number] [place] [address] Sep, Insect bites 919.4 ; Sinusitis 473.9 and GERD (gastroesophageal reflux disease) 530.81 [id number] [place] [address] Aug, Depression, major, recurrent, moderate 296.32 and Posttraumatic stress disorder 309.81 [facility] [id number] [address] Aug, [facility] [id number] [address] Aug, [facility] [id number] [address] Aug, [facility] [id number] [place] [address] July, Major depressive disorder, recurrent episode, moderate 296.32 and Posttraumatic stress disorder 309.81 [facility] [id number] [place] [address] July, [facility] [id number] [address] July, [facility] [id number] [place] [address] July, [facility] [id number] [address] July, [facility] [id number] [address] Jun, [facility] [id number] [address] Jun, [facility] [id number] [address] May, [facility] [id number] [address] May, [facility] [id number] [address] May, [facility] [id number] [address] May, [facility] [id number] [address] May, [facility] [place] [facility] [address] [id number] [place] [address] May, [facility] [place] [facility] [address] [id number] [place] [address] May, [facility] [place] [facility] [address] [facility] [id number] [place] [address] May, [facility] [place] [facility] [address] [id number] [place] [address] May, [facility] [place] [facility] [address] [id number] [place] [address] Apr, 2014 [facility] [place] [facility] [address] [facility] [id number] [place] [address] Apr, 2014 [facility] [place] [facility] [address] [facility] [id number] [place] [address] Apr, 2014 [facility] [place] [facility] [address] [facility] [id number] [place] [address] Apr, 2014 [facility] [place] [facility] [address] [facility] [id number] [place] [address] Apr, 2014 [facility] [place] [facility] [address] [facility] [id number] [place] [address] Apr, [facility] [place] [facility] [address] [facility] [id number] [place] [address] Apr, 2014 [facility] [place] [facility] [address] [facility] [id number] [address] Apr, 2014 [facility] [place] [facility] [address] [id number] [place] [address] Apr, [facility] [place] [facility] [address] [facility] [id number] [address] Mar, [facility] [place] [facility] [address] [facility] [id number] [address] Mar, [facility] [place] [facility] [address] [id number] [place] [address] Mar, [facility] [place] [facility] [address] [id number] [place] [address] Mar, [facility] [place] [facility] [address] [id number] [place] [address] Mar, [facility] [place] [facility] [address] [id number] [place] [address] Mar, [facility] [place] [facility] [address] [id number] [place] [address] Mar, [facility] [place] [facility] [address] [id number] [place] [address] Mar, [facility] [place] [facility] [address] [id number] [place] [address] Mar, [facility] [place] [facility] [address] [id number] [place] [address] Mar, [facility] [place] [facility] [address] [id number] [place] [address] Mar, [facility] [place] [facility] [address] [id number] [place] [address] Mar, [facility] [place] [facility] [address] [id number] [place] [address] Mar, [facility] [place] [facility] [address] [id number] [place] [address] Mar, [facility] [place] [facility] [address] [id number] [place] [address] Mar, [facility] [place] [facility] [address] [id number] [place] [address] Mar, [facility] [place] [facility] [address] [id number] [place] [address] 09 Mar, 2014 [facility] [place] [facility] [address] [id number] [place] [address] Mar, [facility] [place] [facility] [address] [id number] [place] [address] 16 Feb, 2014 [facility] [place] [facility] [address] [id number] [place] [address] 16 Feb, 2014 [facility] [place] [facility] [address] [id number] [place] [address] 15 Feb, 2014 [facility] [place] [facility] [address] [id number] [place] [address] 15 Feb, 2014 [facility] [place] [facility] [address] [id number] [place] [address] Feb, [facility] [place] [facility] [address] [id number] [place] [address] Feb, [facility] [place] [facility] [address] [id number] [place] [address] Jan, [facility] [place] [facility] [address] [id number] [place] [address] Jan, [facility] [place] [facility] [address] [id number] [place] [address] Jan, [facility] [place] [facility] [address] [id number] [place] [address] Jan, [facility] [place] [facility] [address] [id number] [place] [address] Jan, [facility] [place] [facility] [address] [id number] [place] [address] Jan, [facility] [place] [facility] [address] [id number] [place] [address] Jan, [facility] [place] [facility] [address] [id number] [place] [address] Jan, [facility] [place] [facility] [address] [id number] [place] [address] Jan, [facility] [place] [facility] [address] [id number] [place] [address] Jan, [facility] [place] [facility] [address] [id number] [place] [address] Dec, [facility] [place] [facility] [address] [id number] [place] [address] Dec, [facility] [place] [facility] [address] [id number] [place] [address] Dec, [facility] [place] [facility] [address] [id number] [place] [address] Dec, [facility] [place] [facility] [address] [id number] [place] [address] Nov, 2013 [facility] [place] [facility] [address] [id number] [place] [address] Nov, 2013 [facility] [place] [facility] [address] [id number] [place] [address] Nov, 2013 [facility] [place] [facility] [address] [id number] [place] [address] Nov, 2013 [facility] [place] [facility] [address] [id number] [place] [address] Nov, [facility] [place] [facility] [address] [id number] [place] [address] Nov, [facility] [place] [facility] [address] [id number] [place] [address] Oct, [facility] [place] [facility] [address] [id number] [place] [address] Oct, [facility] [place] [facility] [address] [id number] [place] [address] Oct, [facility] [place] [facility] [address] [id number] [place] [address] Oct, [facility] [place] [facility] [address] [id number] [place] [address] Sep, [facility] [place] [facility] [address] [id number] [place] [address] Sep, [facility] [place] [facility] [address] [id number] [place] [address] Sep, [facility] [place] [facility] [address] [id number] [place] [address] Sep, [facility] [place] [facility] [address] [id number] [place] [address] Sep, [facility] [place] [facility] [address] [id number] [place] [address] Sep, [facility] [place] [facility] [address] [id number] [place] [address] July, [facility] [place] [facility] [address] [id number] [place] [address] July, [facility] [place] [facility] [address] [id number] [place] [address] July, [facility] [place] [facility] [address] [id number] [place] [address] July, [facility] [place] [facility] [address] [id number] [place] [address] Jun, [facility] [place] [facility] [address] [id number] [place] [address] Jun, [facility] [place] [facility] [address] [id number] [place] [address] Jun, [facility] [place] [facility] [address] [id number] [place] [address] Jun, [facility] [place] [facility] [address] [id number] [place] [address] Jun, [facility] [place] [facility] [address] [id number] [place] [address] Jun, [facility] [place] [facility] [address] [id number] [place] [address] May, [facility] [place] [facility] [address] [id number] [place] [address] May, [facility] [place] [facility] [address] [id number] [place] [address] Apr, [facility] [place] [facility] [address] [facility] [id number] [place] [address] Apr, [facility] [place] [facility] [address] [id number] [place] [address] Apr, [facility] [place] [facility] [address] [id number] [place] [address] Apr, [facility] [place] [facility] [address] [facility] [id number] [place] [address] Apr, [facility] [place] [facility] [address] [facility] [id number] [place] [address] Apr, [facility] [place] [facility] [address] [facility] [id number] [place] [address] Apr, [facility] [place] [facility] [id number] [place] [address] Mar, [facility] [place] [facility] [address] [facility] [id number] [place] [address] Mar, [facility] [place] [facility] [address] [facility] [id number] [place] [address] Mar, [facility] [place] [facility] [address] [id number] [place] [address] Mar, [facility] [place] [facility] [address] [id number] [place] [address] Mar, [facility] [place] [facility] [address] [facility] [id number] [place] [address] Mar, [facility] [place] [facility] [address] [facility] [id number] [place] [address] Mar, [facility] [place] [facility] [address] [id number] [place] [address] 13 Mar, 2013 [facility] [place] [facility] [address] [id number] [place] [address] Feb, [facility] [place] [facility] [address] [id number] [place] [address] Feb, [facility] [place] [facility] [address] [id number] [place] [address] Feb, [facility] [place] [facility] [address] [id number] [place] [address] Feb, [facility] [place] [facility] [address] [id number] [place] [address] Feb, [facility] [place] [facility] [address] [id number] [place] [address] Feb, [facility] [place] [facility] [address] [id number] [place] [address] Feb, [facility] [place] [facility] [address] [id number] [place] [address] Jan, [facility] [place] [facility] [address] [id number] [address] Jan, [facility] [place] [facility] [address] [id number] [place] [address] Jan, [facility] [place] [facility] [address] [id number] [place] [address] Jan, [facility] [place] [facility] [address] [id number] [place] [address] Jan, [facility] [place] [facility] [address] [id number] [place] [address] Jan, [facility] [place] [facility] [address] [id number] [id number] Jan, [facility] [place] [facility] [address] [id number] [id number] Jan, [facility] [place] [facility] [address] [id number] [place] [address] Dec, [facility] [place] [facility] [address] [id number] [place] [address] Dec, [facility] [place] [facility] [address] [id number] [place] [address] Dec, [facility] [place] [facility] [address] [id number] [place] [address] Dec, [facility] [place] [facility] [address] [id number] [place] [address] Dec, [facility] [place] [facility] [address] [id number] [place] [address] Dec, [facility] [place] [facility] [address] [id number] [place] [address] Dec, [facility] [place] [facility] [address] [id number] [place] [address] Dec, [facility] [place] [facility] [address] [id number] [place] [address] Dec, [facility] [place] [facility] [address] [id number] [place] [address] Dec, [facility] [place] [facility] [address] [id number] [place] [id number] 27 Nov, 2012 [facility] [place] [facility] [address] [id number] [place] [id number] 27 Nov, 2012 [facility] [place] [facility] [address] [id number] [place] [address] 24 Nov, 2012 [facility] [place] [facility] [address] [id number] [place] [address] 20 Nov, 2012 [facility] [place] [facility] [address] [id number] [place] [address] 19 Nov, 2012 [facility] [place] [facility] [address] [id number] [place] [address] 13 Nov, 2012 [facility] [address] [id number] [place] [address] 10 Nov, 2012 [facility] [place] [facility] [address] [id number] [place] [address] Nov, [facility] [place] [facility] [address] [id number] [place] [address] Oct, [facility] [place] [facility] [address] [id number] [place] [address] Oct, [facility] [place] [facility] [address] [id number] [place] [address] Oct, [facility] [place] [facility] [address] [id number] [place] [address] Sep, [facility] [address] [id number] [place] [address] Sep, [facility] [place] [facility] [address] [id number] [place] [address] Sep, [facility] [place] [facility] [address] [id number] [place] [address] Sep, [facility] [place] [facility] [address] [id number] [place] [address] Sep, [facility] [place] [facility] [address] [id number] [place] [address] Aug, [facility] [place] [facility] [address] [id number] [place] [address] Aug, [facility] [place] [facility] [address] [id number] [place] [address] Aug, [facility] [place] [facility] [address] [id number] [place] [address] Aug, [facility] [place] [facility] [address] [id number] [place] [address] Aug, [facility] [place] [facility] [address] [id number] [place] [address] Aug, [facility] [address] [id number] [place] [address] July, [facility] [address] [id number] [place] [address] July, [facility] [address] [id number] [place] [address] July, [facility] [address] [id number] [place] [address] July, [facility] [address] [id number] [place] [address] July, [facility] [address] [id number] [place] [address] July, [facility] [address] [id number] [place] [address] Jun, [facility] [address] [id number] [place] [address] Jun, [facility] [address] [id number] [place] [address] Jun, [facility] [address] [id number] [place] [address] Jun, [facility] [address] [id number] [place] [address] May, [facility] [address] [id number] [place] [address] May, [facility] [place] [facility] [address] [id number] [place] [address] May, [facility] [address] [id number] [place] [address] Apr, [facility] [address] [id number] [place] [address] 21 Mar, 2012 [facility] [place] [facility] [address] [id number] [place] [address] 18 Mar, 2012 [facility] [place] [facility] [address] [id number] [place] [address] 17 Mar, 2012 [facility] [place] [facility] [address] [id number] [place] [address] 16 Mar, 2012 [facility] [place] [facility] [address] [id number] [place] [address] 15 Mar, 2012 [facility] [place] [facility] [address] [id number] [place] [address] Feb, [facility] [place] [facility] [address] [id number] [place] [address] Feb, [facility] [place] [facility] [address] [id number] [place] [address] Feb, [facility] [place] [facility] [address] [id number] [place] [address] Feb, [facility] [place] [facility] [address] [id number] [place] [address] Jan, [facility] [place] [facility] [address] [id number] [place] [address] Jan, [facility] [place] [facility] [address] [id number] [address] Jan, [facility] [place] [facility] [address] [id number] [place] [address] Jan, [facility] [place] [facility] [address] [id number] [place] [address] Dec, [facility] [place] [facility] [address] [id number] [place] [address] Dec, [facility] [place] [facility] [address] [id number] [place] [address] Nov, [facility] [place] [facility] [address] [id number] [place] [address] Oct, [facility] [address] [id number] [place] [address] Oct, [facility] [address] [id number] [place] [address] Oct, [facility] [address] [id number] [place] [address] Oct, [facility] [address] [id number] [place] [address] Oct, [facility] [address] [id number] [place] [address] Sep, [facility] [address] [id number] [place] [address] Sep, [facility] [address] [facility] [id number] [place] [address] Aug, [facility] [address] [place] [id number] Aug, [facility] [address] [id number] [place] [address] Aug, [facility] [address] [facility] [id number] [place] [address] July, [facility] [address] [id number] [place] [address] July, [facility] [address] [id number] [place] [address] Jun, [facility] [address] [id number] [place] [address] Jun, [facility] [address] [id number] [place] [address] 16 Jun, 2011 [facility] [address] [id number] [place] [address] Jun, [facility] [place] [facility] [address] [id number] [place] [address] 15 Apr, 2011 [facility] [place] [facility] [address] [id number] [place] [address] 15 Apr, 2011 [facility] [place] [facility] [address] [id number] [place] [address] 10 Apr, 2011 [facility] [place] [facility] [address] [id number] [place] [address] Mar, [facility] [place] [facility] [address] [id number] [place] [address] Mar, [facility] [place] [facility] [address] [id number] [place] [address] Mar, [facility] [address] [id number] [place] [address] Mar, [facility] [address] [id number] [place] [address] Mar, [facility] [place] [facility] [address] [id number] [place] [address] Jan, [facility] [address] [id number] [place] [address] Jan, [facility] [facility] [place] [facility] [address] [id number] [place] [address] Jan, [facility] [place] [facility] [address] [id number] [place] [address] Mar, [facility] [place] [facility] [address] [id number] [place] [address] Mar, [facility] [place] [facility] [address] [id number] [place] [address] Feb, [facility] [place] [facility] [address] [id number] [place] [address] 16 Feb, 2010 [facility] [place] [facility] [address] [id number] [address] 16 Feb, 2010 [facility] [id number] [address] Jan, [facility] [id number] [address] Jan, [facility] [id number] [address] Dec, [facility] [id number] [address] Dec, [facility] [id number] [address] May, [facility] [id number] [place] [id number] Apr, [facility] [id number] [place] [id number] Feb, [facility] [id number] [address] Feb, [facility] [id number] [place] [id number] Jan, [facility] [id number] [address] Jan, [facility] [id number] [address] Jan, [facility] [id number] [address] Jan, [facility] [id number] [address] Jan, IMMUNIZATIONS No Known Immunizations SOCIAL HISTORY [...]
--- OUTSIDE RECORDS SUMMARY | 2018-10-04 07:14 | XMS REPORT ---
Author Author ESTHER CHAVEZ [facility] Address [address] [place] [address] Care Team Providers Care Orthopaedic Physician Assistant Name Role Phone KATHYCIARA VILLEGASHANY Unavailable PROBLEMS Type Condition ICD9-CM Code [id number] Code Onset Dates Condition Status SNOMED Code Problem MITCHELL treated with BiPAP G47.33 Active 71794893 Problem Type 2 diabetes mellitus with diabetic polyneuropathy E11.42 Active 454651007 Problem History of DVT (deep vein thrombosis) Z86.718 Active 273115547 Problem History of weight loss surgery Z98.84 Active 580593617 Problem Chronic systolic (congestive) heart failure I50.22 Active 440529048 Problem Essential hypertension I10 Active 75964221 Problem Chronic prescription opiate use Z79.891 Active 129805061 Problem Primary osteoarthritis of both knees M17.0 Active 420555239 Problem Chronic pain syndrome G89.4 Active 894086460 Problem Nocturnal hypoxia G47.34 Active 459259112 Problem Obesity, morbid, BMI 40.0-49.9 E66.01 Active 458166151 Problem Tobacco abuse Z72.0 Active 283601354 Problem Macrocytosis D75.89 Active 804495120 Problem Pure hypercholesterolemia E78.00 Active 560001850 Problem Posttraumatic stress disorder F43.10 Active 65739592 Problem Non-ischemic cardiomyopathy I42.9 Active 30960779 Problem Obstructive sleep apnea syndrome G47.33 Active 48559465 Problem Acute right-sided low back pain with right-sided sciatica M54.41 Active 15542631 Problem Gastroesophageal reflux disease, esophagitis presence not specified K21.9 Active 983631813 Problem Chronic obstructive pulmonary disease, unspecified COPD type J44.9 Active 81216081 Problem BMI 45.0-49.9, adult Z68.42 Active 472744102 Problem Mild episode of recurrent major depressive disorder F33.0 Active 208064716 Problem Mood disorder F39 Active 13465479 Problem Primary insomnia F51.01 Active 8060334 ALLERGIES No Information ENCOUNTERS Encounter Location Date Diagnosis [facility] [address] [address] Aug, Chronic pain syndrome G89.4 [facility] [address] [address] Aug, [facility] [address], [place] [address] Aug, Type 2 diabetes mellitus with diabetic polyneuropathy E11.[address] [address] July, Chronic pain syndrome G89.4 [facility] [address], [place] [address] July, [facility] [address], [place] [address] July, Encounter for Medicare annual wellness exam [...] and Chronic systolic congestive heart failure I50.22 [facility] [address], [place] [address] July, Type 2 diabetes mellitus with diabetic polyneuropathy E11.42 [facility] [address] [address] July, [facility] [id number] [place] [address] July, Urinary hesitancy R39.11 [facility] [address], [place] [address] July, Chronic pain syndrome G89.4 [facility] [id number], [place] [address] Jun, Mass of shoulder region R22.30 [facility] [address] [place] [address] Jun, Mass of shoulder region R22.30 [facility] [address] [place] [address] 05 Jun, 2018 Chronic pain syndrome G89.4 [facility] [id number] [place] [address] May, Type 2 diabetes mellitus with diabetic polyneuropathy E11.42 ; Mass of shoulder region R22.30 and Morbid obesity E66.01 [facility] [id number] [place] [address] 07 May, 2018 Chronic pain syndrome G89.4 [facility] [id number] [place] [address] 04 May, 2018 Mood disorder F39 ; Posttraumatic stress disorder F43.10 and Morbid obesity E66.01 [facility] [address] [place] [address] 14 Apr, 2018 Major depressive disorder, recurrent episode, unspecified severity F33.9 [facility] [address] [place] [address] 13 Apr, 2018 Major depressive disorder, recurrent episode, unspecified severity F33.9 [facility] [address], [place] [address] 07 Apr, 2018 Chronic pain syndrome G89.4 [facility] [address] [place] [address] 14 Mar, 2018 Pain in right foot M79.671 ; Type 2 diabetes mellitus with diabetic polyneuropathy E11.42 ; Chronic pain syndrome G89.4 and BMI 50.0-59.9, adult Z68.43 [facility] [address], [place] [address] Mar, [facility] [id number] [address] Mar, [facility] [id number] [place] [address] Mar, Chronic pain syndrome G89.4 [facility] [id number] [place] [address] Feb, Chronic pain syndrome G89.4 [facility] [id number] [place] [address] Jan, Obstructive sleep apnea syndrome G47.33 [facility] [id number] [place] [address] Jan, Type 2 diabetes mellitus with diabetic polyneuropathy E11.42 ; Chronic pain syndrome G89.4 ; Gastroesophageal reflux disease, esophagitis presence not specified K21.9 ; Essential hypertension I10 ; Pure hypercholesterolemia E78.00 ; Chronic prescription opiate use Z79.891 ; Obstructive sleep apnea syndrome G47.33 and BMI 50.0-59.9, adult Z68.43 [facility] [id number] [place] [address] Jan, History of weight loss surgery Z98.84 [facility] [id number] [place] [address] 16 Jan, 2018 [facility] [id number] [place] [address] Jan, Chronic pain syndrome G89.4 [facility] [id number] [place] [address] Jan, [facility] [id number] [place] [address] Jan, [facility] [id number] [place] [address] Dec, [facility] [id number] [place] [address] Dec, Chronic pain syndrome G89.4 [facility] [address] [place] [address] 18 Dec, 2017 Injury of left knee, subsequent encounter S89.92XD and Acute pain of left knee M25.562 [facility] [id number] [place] [address] 12 Dec, 2017 [place] [address] [address] Dec, Injury of left knee, initial encounter S89.92XA and BMI 45.0-49.9, adult Z68.42 [facility] [address] [address] Nov, Chest discomfort R07.89 ; Shortness of breath R06.02 ; Chronic systolic congestive heart failure I50.22 and Type 2 diabetes mellitus with diabetic polyneuropathy E11.42 [facility] [id number] [place] [address] 20 Nov, 2017 Chronic pain syndrome G89.4 [facility] [id number] [place] [address] Oct, BMI 45.0-49.9, adult Z68.42 ; Type 2 diabetes mellitus with diabetic polyneuropathy E11.42 ; Chronic pain syndrome G89.4 ; Gastroesophageal reflux disease, esophagitis presence not specified K21.9 ; Decreased pedal pulses R09.89 and Precordial pain R07.2 [facility] [id number] [place] [address] Oct, [facility] [id number] [place] [address] Oct, Mood disorder F39 [facility] [id number] [place] [address] Oct, Mood disorder F39 ; Posttraumatic stress disorder F43.10 and BMI 45.0-49.9, adult Z68.42 [facility] [address] [place] [address] Sep, Primary osteoarthritis of both knees M17.0 and Chronic pain syndrome G89.4 [facility] [id number] [place] [address] Sep, Mood disorder F39 and Posttraumatic stress disorder F43.10 [facility] [id number] [place] [address] Aug, Primary osteoarthritis of both knees M17.0 and Chronic pain syndrome G89.4 [facility] [id number] [place] [address] July, Primary osteoarthritis of both knees M17.0 and Chronic pain syndrome G89.4 [facility] [address] [place] [address] July, Type 2 diabetes mellitus with diabetic polyneuropathy E11.42 ; Essential hypertension I10 ; Pure hypercholesterolemia E78.0 ; Chronic prescription opiate use Z79.891 ; Tobacco abuse Z72.0 ; Primary osteoarthritis of both knees M17.0 ; Primary insomnia F51.01 and BMI 45.0-49.9, adult Z68.42 [facility] [address] [place] [address] July, Medicare annual wellness visit, initial Z00.00 [...] specified K21.9 and Encounter for immunization Z23 [facility] [address] [place] [address] July, Primary osteoarthritis of both knees M17.0 and Chronic pain syndrome G89.4 [facility] [address] [place] [address] Jun, Infection of right ear H66.91 ; Wheezing on auscultation R06.2 and BMI 45.0-49.9, adult Z68.42 [facility] [id number] [place] [address] Jun, [facility] [id number] [place] [address] Jun, Primary osteoarthritis of both knees M17.0 and Chronic pain syndrome G89.4 [facility] [id number] [place] [address] May, [facility] [id number] [place] [address] May, BMI 45.0-49.9, adult Z68.42 ; Mood disorder F39 and Posttraumatic stress disorder F43.10 [facility] [id number] [place] [address] May, [facility] [id number] [place] [address] May, Primary osteoarthritis of both knees M17.0 and Chronic pain syndrome G89.4 [facility] [id number] [place] [address] May, Mood disorder F39 [facility] [address] [place] [address] Apr, Type 2 diabetes mellitus with diabetic polyneuropathy E11.42 [facility] [address] [place] [address] Apr, [facility] [id number] [place] [address] Apr, Primary osteoarthritis of both knees M17.0 and Chronic pain syndrome G89.4 [facility] [address] [place] [address] Apr, Mood disorder F39 [facility] [address] [place] [address] Mar, Mood disorder F39 and Posttraumatic stress disorder F43.10 [facility] [id number] [place] [address] Mar, Primary osteoarthritis of both knees M17.0 and Chronic pain syndrome G89.4 [facility] [id number] [place] [address] Feb, Primary osteoarthritis of both knees M17.0 and Chronic pain syndrome G89.4 [facility] [id number] [place] [address] Feb, Mood disorder F39 [facility] [id number] [place] [address] Jan, Type 2 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 ; Primary osteoarthritis of both knees M17.0 ; Mood disorder F39 ; Obesity, morbid, BMI 40.0-49.9 E66.01 ; Chronic prescription opiate use Z79.891 ; Acute suppurative otitis media of both ears without spontaneous rupture of tympanic membranes, recurrence not specified H66.003 and BMI 45.0-49.9, adult Z68.42 [facility] [id number] [place] [address] Jan, Primary osteoarthritis of both knees M17.0 and Chronic pain syndrome G89.4 [facility] [id number] [place] [address] Dec, Mood disorder F39 and Posttraumatic stress disorder F43.10 [facility] [id number] [place] [address] Dec, Primary osteoarthritis of both knees M17.0 and Chronic pain syndrome G89.4 [facility] [address] [place] [address] Nov, Chronic pain syndrome G89.4 [facility] [id number] [place] [address] 15 Nov, 2016 Primary osteoarthritis of both knees M17.0 and Chronic pain syndrome G89.4 [facility] [id number] [place] [address] 13 Nov, 2016 Type 2 diabetes mellitus with diabetic polyneuropathy E11.42 and Chronic pain syndrome G89.4 [facility] [id number] [place] [address] 12 Nov, 2016 Posttraumatic stress disorder F43.10 and Mood disorder F39 [facility] [id number] [place] [address] 18 Oct, 2016 Chronic pain syndrome G89.4 [facility] [id number] [place] [address] 16 Oct, 2016 Type 2 diabetes mellitus with diabetic polyneuropathy E11.42 ; BMI 45.0-49.9, adult Z68.42 ; Primary osteoarthritis of both knees M17.0 and Skin lesion L98.9 [facility] [id number] [place] [address] Oct, Chronic pain syndrome G89.4 [facility] [id number] [place] [address] Sep, Chronic pain syndrome G89.4 [facility] [id number] [place] [address] Sep, [facility] [id number] [place] [address] Sep, Chronic pain syndrome G89.4 [facility] [address] [place] [address] Aug, Chronic pain syndrome G89.4 [facility] [id number] [place] [address] Aug, [facility] [id number] [place] [address] Aug, Macrocytosis D75.89 and Pure hypercholesterolemia E78.0 [facility] [id number] [place] [address] Aug, Pure hypercholesterolemia E78.0 [facility] [id number] [place] [address] Aug, Macrocytosis D75.89 [facility] [id number] [place] [address] Aug, Pure hypercholesterolemia E78.0 ; Type 2 diabetes mellitus with diabetic polyneuropathy E11.42 ; MITCHELL treated with BiPAP G47.33 and Chronic pain syndrome G89.4 [facility] [id number] [place] [address] Aug, [facility] [id number] [place] [address] Aug, Hemorrhoids, unspecified hemorrhoid type K64.9 [facility] [id number] [place] [address] Aug, Chronic pain syndrome G89.4 ; Type 2 diabetes mellitus with diabetic polyneuropathy E11.42 ; Hemorrhoids, unspecified hemorrhoid type K64.9 ; Tobacco abuse Z72.0 and Primary osteoarthritis of both knees M17.0 [facility] [id number] [place] [address] July, Chronic pain syndrome G89.4 [facility] [id number] [place] [address] July, [facility] [id number] [place] [address] Jun, Chronic pain syndrome G89.4 [facility] [id number] [place] [address] Jun, Chronic pain syndrome G89.4 [facility] [id number] [place] [address] Jun, Severe major depression with psychotic features F32.3 and Posttraumatic stress disorder F43.10 [facility] [address], [place] [address] Jun, Chronic pain syndrome G89.4 [facility] [id number] [place] [address] Jun, [facility] [id number] [place] [address] May, Chronic pain syndrome G89.4 [facility] [id number] [place] [address] May, Tobacco abuse Z72.0 [facility] [id number] [place] [address] May, [facility] [id number] [place] [address] Apr, Chronic pain syndrome G89.4 [facility] [id number] [place] [address] Apr, [facility] [id number] [place] [address] Apr, Right foot pain M79.671 [facility] [address] [place] [address] Mar, Type 2 diabetes mellitus with diabetic polyneuropathy E11.42 ; MITCHELL treated with BiPAP G47.33 ; Pure hypercholesterolemia E78.0 ; Chronic pain syndrome G89.4 ; Tobacco abuse Z72.0 and Obesity, morbid, BMI 40.0-49.9 E66.01 [facility] [id number] [place] [address] Mar, [facility] [id number] [place] [address] Mar, [facility] [id number] [place] [address] Mar, [facility] [address] [place] [address] Mar, [facility] [address] [place] [address] Mar, [facility] [address] [place] [address] Mar, Severe major depression with psychotic features F32.3 and Posttraumatic stress disorder F43.10 [facility] [address] [place] [address] Mar, [facility] [id number] [place] [address] Feb, [facility] [id number] [place] [address] Feb, [facility] [id number] [place] [address] Jan, [facility] [id number] [address] Jan, [facility] [address] [place] [address] Dec, Posttraumatic stress disorder F43.10 and Severe major depression with psychotic features F32.3 [facility] [address], [place] [address] Dec, Type 2 diabetes mellitus with diabetic polyneuropathy E11.42 ; Chronic pain syndrome G89.4 and Acute right-sided low back pain with right-sided sciatica M54.41 [facility] [address] [place] [address] Dec, [facility] [id number] [place] [address] Dec, [facility] [address] [place] [address] Nov, [facility] [id number] [place] [address] Nov, [facility] [id number] [place] [address] Nov, [facility] [id number] [place] [address] Oct, [facility] [id number] [place] [address] Oct, [facility] [id number] [place] [address] Sep, Dental examination Z01.20 [facility] [id number] [place] [address] Sep, [facility] [id number] [place] [address] Sep, Type 2 diabetes mellitus with diabetic polyneuropathy E11.42 ; Chronic pain syndrome G89.4 ; Chronic prescription opiate use Z79.891 ; Injury of right index finger, sequela S69.91XS and Anejaculation N50.8 [facility] [id number] [place] [address] Aug, [facility] [id number] [place] [address] Aug, [facility] [address] [place] [address] Aug, Cellulitis of finger of right hand L03.011 [facility] [address] [place] [address] July, [facility] [id number] [place] [address] July, [facility] [id number] [place] [address] Jun, Onychomycosis B35.1 [facility] [id number] [place] [address] Jun, Severe major depression with psychotic features F32.3 and Posttraumatic stress disorder F43.10 [facility] [address] [place] [address] Jun, [facility] [address] [place] [address] Jun, [facility] [id number] [place] [address] Jun, [facility] [id number] [place] [address] May, Type 2 diabetes mellitus with diabetic polyneuropathy E11.42 [facility] [id number] [place] [address] May, Type 2 diabetes mellitus with diabetic polyneuropathy E11.42 and Urinary hesitancy R39.11 [facility] [address] [place] [address] May, Type 2 diabetes mellitus with diabetic polyneuropathy E11.42 ; Left hip pain M25.552 and Benign prostatic hyperplasia with lower urinary tract symptoms, unspecified morphology N40.1 [facility] [address] [place] [address] May, [facility] [address] [place] [address] Apr, Severe major depression with psychotic features F32.3 and Posttraumatic stress disorder F43.10 [facility] [id number] [address] Apr, [facility] [id number] [place] [address] Mar, [facility] [address] [address] Mar, Dysuria R30.0 and Urinary hesitancy R39.11 [facility] [id number] [address] Mar, Onychomycosis B35.1 [facility] [id number] [place] [id number] Mar, [facility] [id number] [address] Feb, [facility] [id number] [place] [address] Jan, [facility] [id number] [place] [address] Jan, Posttraumatic stress disorder F43.10 and Severe major depression with psychotic features F32.3 [facility] [id number] [place] [id number] Jan, [facility] [id number] [place] [address] Jan, Chronic pain syndrome G89.4 ; Type 2 diabetes mellitus with diabetic polyneuropathy E11.42 ; Decreased pedal pulses R09.89 and Paresthesia of both hands R20.2 [facility] [id number] [place] [address] Dec, Posttraumatic stress disorder F43.10 and Severe major depression with psychotic features F32.3 [facility] [address] [address] Dec, [facility] [address] [address] Dec, [facility] [address], [place] [address] Dec, Onychomycosis B35.1 [facility] [address], [place] [address] Dec, [facility] [address] [address] Dec, [place] [id number] [place] [address] Nov, [place] [id number] [place] [address] Oct, Depression, major, recurrent, moderate 296.32 and Posttraumatic stress disorder 309.81 [place] [id number] [place] [address] Oct, [place] [id number] [place] [address] Oct, [place] [id number] [place] [address] Oct, [place] [id number] [place] [address] Sep, Posttraumatic stress disorder 309.81 and Depression, major, recurrent, moderate 296.32 [place] [id number] [place] [address] Sep, [place] [id number] [place] [address] Sep, Chronic airway obstruction, not elsewhere classified [address] [id number] [place] [address] Sep, Onychomycosis 110.1 and DM neuro manif type II 250.60 [place] [id number] [place] [address] Sep, Chronic pain 338.29 ; Chronic airway obstruction, not elsewhere classified 496 ; Osteoarthritis of knees, bilateral 715.96 and On potassium wasting diuretic therapy V58.69 [place] [id number] [place] [address] Sep, Insect bites 919.4 ; Sinusitis 473.9 and GERD (gastroesophageal reflux disease) 530.81 [place] [id number] [place] [address] Aug, Depression, major, recurrent, moderate 296.32 and Posttraumatic stress disorder 309.81 [facility] [id number] [address] Aug, [facility] [address] [id number] [address] Aug, [facility] [address] [address] Aug, [facility] [id number] [place] [address] July, Major depressive disorder, recurrent episode, moderate 296.32 and Posttraumatic stress disorder 309.81 [facility] [id number] [place] [address] July, [facility] [address], [place] [address] July, [facility] [id number] [place] [address] July, [facility] [address], [place] [address] July, [facility] [address], [place] [address] Jun, [facility] [address], [place] [address] Jun, [facility] [address] [address] May, [facility] [address], [place] [address] May, [facility] [address], [place] [address] May, [facility] [address], [place] [address] May, [facility] [address], [place] [address] May, [facility] [place] [facility] [address] [id number] [place] [address] May, [facility] [place] [facility] [address] [id number] [place] [address] May, [facility] [place] [facility] [address] [facility] [id number] [place] [address] May, [facility] [place] [facility] [address] [id number] [place] [address] May, [facility] [place] [facility] [address] [id number] [place] [address] Apr, 2014 [facility] [place] [facility] [address] [facility] [id number] [place] [address] Apr, 2014 [facility] [place] [facility] [address] [facility] [id number] [place] [address] Apr, 2014 [facility] [place] [facility] [address] [facility] [id number] [place] [address] Apr, 2014 [facility] [place] [facility] [address] [facility] [id number] [place] [address] Apr, 2014 [facility] [place] [facility] [address] [facility] [id number] [place] [address] Apr, [facility] [place] [facility] [address] [facility] [id number] [place] [address] Apr, 2014 [facility] [place] [facility] [address] [facility] [id number], [place] [address] Apr, 2014 [facility] [place] [facility] [address] [id number] [place] [address] Apr, [facility] [place] [facility] [address] [facility] [id number], [place] [address] Mar, [facility] [place] [facility] [address] [facility] [id number], [place] [address] Mar, [facility] [place] [facility] [address] [id number] [place] [address] Mar, [facility] [place] [facility] [address] [id number] [place] [address] Mar, [facility] [place] [facility] [address] [id number] [place] [address] Mar, [facility] [place] [facility] [address] [id number] [place] [address] Mar, [facility] [place] [facility] [address] [id number] [place] [address] Mar, [facility] [place] [facility] [address] [id number] [place] [address] Mar, [facility] [place] [facility] [address] [id number] [place] [address] Mar, [facility] [place] [facility] [address] [id number] [place] [address] Mar, [facility] [place] [facility] [address] [id number] [place] [address] Mar, [facility] [place] [facility] [address] [id number] [place] [address] Mar, [facility] [place] [facility] [address] [id number] [place] [address] Mar, [facility] [place] [facility] [address] [id number] [place] [address] Mar, [facility] [place] [facility] [address] [id number] [place] [address] Mar, [facility] [place] [facility] [address] [id number] [place] [address] Mar, [facility] [place] [facility] [address] [id number] [place] [address] 09 Mar, 2014 [facility] [place] [facility] [address] [id number] [place] [address] Mar, [facility] [place] [facility] [address] [id number] [place] [address] 16 Feb, 2014 [facility] [place] [facility] [address] [id number] [place] [address] 16 Feb, 2014 [facility] [place] [facility] [address] [id number] [place] [address] 15 Feb, 2014 [facility] [place] [facility] [address] [id number] [place] [address] 15 Feb, 2014 [facility] [place] [facility] [address] [id number] [place] [address] Feb, [facility] [place] [facility] [address] [id number] [place] [address] Feb, [facility] [place] [facility] [address] [id number] [place] [address] Jan, [facility] [place] [facility] [address] [id number] [place] [address] Jan, [facility] [place] [facility] [address] [id number] [place] [address] Jan, [facility] [place] [facility] [address] [id number] [place] [address] Jan, [facility] [place] [facility] [address] [id number] [place] [address] Jan, [facility] [place] [facility] [address] [id number] [place] [address] Jan, [facility] [place] [facility] [address] [id number] [place] [address] Jan, [facility] [place] [facility] [address] [id number] [place] [address] Jan, [facility] [place] [facility] [address] [id number] [place] [address] Jan, [facility] [place] [facility] [address] [id number] [place] [address] Jan, [facility] [place] [facility] [address] [id number] [place] [address] Dec, [facility] [place] [facility] [address] [id number] [place] [address] Dec, [facility] [place] [facility] [address] [id number] [place] [address] Dec, [facility] [place] [facility] [address] [id number] [place] [address] Dec, [facility] [place] [facility] [address] [id number] [place] [address] Nov, 2013 [facility] [place] [facility] [address] [id number] [place] [address] Nov, 2013 [facility] [place] [facility] [address] [id number] [place] [address] Nov, 2013 [facility] [place] [facility] [address] [id number] [place] [address] Nov, 2013 [facility] [place] [facility] [address] [id number] [place] [address] Nov, [facility] [place] [facility] [address] [id number] [place] [address] Nov, [facility] [place] [facility] [address] [id number] [place] [address] Oct, [facility] [place] [facility] [address] [id number] [place] [address] Oct, [facility] [place] [facility] [address] [id number] [place] [address] Oct, [facility] [place] [facility] [address] [id number] [place] [address] Oct, [facility] [place] [facility] [address] [id number] [place] [address] Sep, [facility] [place] [facility] [address] [id number] [place] [address] Sep, [facility] [place] [facility] [address] [id number] [place] [address] Sep, [facility] [place] [facility] [address] [id number] [place] [address] Sep, [facility] [place] [facility] [address] [id number] [place] [address] Sep, [facility] [place] [facility] [address] [id number] [place] [address] Sep, [facility] [place] [facility] [address] [id number] [place] [address] July, [facility] [place] [facility] [address] [id number] [place] [address] July, [facility] [place] [facility] [address] [id number] [place] [address] July, [facility] [place] [facility] [address] [id number] [place] [address] July, [facility] [place] [facility] [address] [id number] [place] [address] Jun, [facility] [place] [facility] [address] [id number] [place] [address] Jun, [facility] [place] [facility] [address] [id number] [place] [address] Jun, [facility] [place] [facility] [address] [id number] [place] [address] Jun, [facility] [place] [facility] [address] [id number] [place] [address] Jun, [facility] [place] [facility] [address] [id number] [place] [address] Jun, [facility] [place] [facility] [address] [id number] [place] [address] May, [facility] [place] [facility] [address] [id number] [place] [address] May, [facility] [place] [facility] [address] [id number] [place] [address] Apr, [facility] [place] [facility] [address] [facility] [id number] [place] [address] Apr, [facility] [place] [facility] [address] [id number] [place] [address] Apr, [facility] [place] [facility] [address] [id number] [place] [address] Apr, [facility] [place] [facility] [address] [facility] [id number] [place] [address] Apr, [facility] [place] [facility] [address] [facility] [id number] [place] [address] Apr, [facility] [place] [facility] [address] [facility] [id number] [place] [address] Apr, [facility] [place] [facility] [id number] [place] [place] [address] Mar, [facility] [place] [facility] [address] [facility] [id number] [place] [address] Mar, [facility] [place] [facility] [address] [facility] [id number] [place] [address] Mar, [facility] [place] [facility] [address] [id number] [place] [address] Mar, [facility] [place] [facility] [address] [id number] [place] [address] Mar, [facility] [place] [facility] [address] [facility] [id number] [place] [address] Mar, [facility] [place] [facility] [address] [facility] [id number] [place] [address] Mar, [facility] [place] [facility] [address] [id number] [place] [address] 13 Mar, 2013 [facility] [place] [facility] [address] [id number] [place] [address] Feb, [facility] [place] [facility] [address] [id number] [place] [address] Feb, [facility] [place] [facility] [address] [id number] [place] [address] Feb, [facility] [place] [facility] [address] [id number] [place] [address] Feb, [facility] [place] [facility] [address] [id number] [place] [address] Feb, [facility] [place] [facility] [address] [id number] [place] [address] Feb, [facility] [place] [facility] [address] [id number] [place] [address] Feb, [facility] [place] [facility] [address] [id number] [place] [address] Jan, [facility] [place] [facility] [address] [id number], [place] [address] Jan, [facility] [place] [facility] [address] [id number], [place] [address] Jan, [facility] [place] [facility] [address] [id number], [place] [address] Jan, [facility] [place] [facility] [address] [id number], [place] [address] Jan, [facility] [place] [facility] [address] [id number], [place] [address] Jan, [facility] [place] [facility] [address] [id number] [id number] Jan, [facility] [place] [facility] [address] [id number] [address] Jan, [facility] [place] [facility] [address] [id number] [place] [address] Dec, [facility] [place] [facility] [address] [id number], [place] [address] Dec, [facility] [place] [facility] [address] [id number], [place] [address] Dec, [facility] [place] [facility] [address] [id number], [place] [address] Dec, [facility] [place] [facility] [address] [id number] [place] [address] Dec, [facility] [place] [facility] [address] [id number], [place] [address] Dec, [facility] [place] [facility] [address] [id number], [place] [address] Dec, [facility] [place] [facility] [address] [id number], [place] [address] Dec, [facility] [place] [facility] [address] [id number], [place] [address] Dec, [facility] [place] [facility] [address] [id number], [place] [address] Dec, [facility] [place] [facility] [address] [id number] [id number] 27 Nov, 2012 [facility] [place] [facility] [address] [id number][place] [id number] 27 Nov, 2012 [facility] [place] [facility] [address] [id number], [place] [address] 24 Nov, 2012 [facility] [place] [facility] [address] [id number], [place] [address] 20 Nov, 2012 [facility] [place] [facility] [address] [id number], [place] [address] 19 Nov, 2012 [facility] [place] [facility] [address] [id number] [place] [address] 13 Nov, 2012 [facility] [address] [id number] [place] [address] 10 Nov, 2012 [facility] [place] [facility] [address] [id number] [place] [address] Nov, [facility] [place] [facility] [address] [id number] [place] [address] Oct, [facility] [place] [facility] [address] [id number] [place] [address] Oct, [facility] [place] [facility] [address] [id number] [place] [address] Oct, [facility] [place] [facility] [address] [id number] [place] [address] Sep, [facility] [address] [id number] [place] [address] Sep, [facility] [place] [facility] [address] [id number] [place] [address] Sep, [facility] [place] [facility] [address] [id number] [place] [address] Sep, [facility] [place] [facility] [address] [id number] [place] [address] Sep, [facility] [place] [facility] [address] [id number] [place] [address] Aug, [facility] [place] [facility] [address] [id number] [place] [address] Aug, [facility] [place] [facility] [address] [id number] [place] [address] Aug, [facility] [place] [facility] [address] [id number] [place] [address] Aug, [facility] [place] [facility] [address] [id number] [place] [address] Aug, [facility] [place] [facility] [address] [id number] [place] [address] Aug, [facility] [address] [id number] [place] [address] July, [facility] [address] [id number] [place] [address] July, [facility] [address] [id number] [place] [address] July, [facility] [address] [id number] [place] [address] July, [facility] [address] [id number] [place] [address] July, [facility] [address] [id number] [place] [address] July, [facility] [address] [id number] [place] [address] Jun, [facility] [address] [id number] [place] [address] Jun, [facility] [address] [id number] [place] [address] Jun, [facility] [address] [id number] [place] [address] Jun, [facility] [address] [id number] [place] [address] May, [facility] [address] [id number] [place] [address] May, [facility] [place] [facility] [address] [id number] [place] [address] May, [facility] [address] [id number] [place] [address] Apr, [facility] [address] [id number] [place] [address] 21 Mar, 2012 [facility] [place] [facility] [address] [id number] [place] [address] 18 Mar, 2012 [facility] [place] [facility] [address] [id number] [place] [address] 17 Mar, 2012 [facility] [place] [facility] [address] [id number] [place] [address] 16 Mar, 2012 [facility] [place] [facility] [address] [id number] [place] [address] 15 Mar, 2012 [facility] [place] [facility] [address] [id number] [place] [address] Feb, [facility] [place] [facility] [address] [id number] [place] [address] Feb, [facility] [place] [facility] [address] [id number] [place] [address] Feb, [facility] [place] [facility] [address] [id number] [place] [address] Feb, [facility] [place] [facility] [address] [id number] [place] [address] Jan, [facility] [place] [facility] [address] [id number] [place] [address] Jan, [facility] [place] [facility] [address] [id number], [place] [address] Jan, [facility] [place] [facility] [address] [id number], [place] [address] Jan, [facility] [place] [facility] [address] [id number] [place] [address] Dec, [facility] [place] [facility] [address] [id number], [place] [address] Dec, [facility] [place] [facility] [address] [id number] [place] [address] Nov, [facility] [place] [facility] [address] [id number] [place] [address] Oct, [facility] [address] [id number] [place] [address] Oct, [facility] [address] [id number] [place] [address] Oct, [facility] [address] [id number] [place] [address] Oct, [facility] [address] [id number] [place] [address] Oct, [facility] [address] [id number] [place] [address] Sep, [facility] [address] [id number] [place] [address] Sep, [facility] [address] [facility] [id number] [place] [address] Aug, [facility] [address] [place] [id number] Aug, [facility] [address] [id number] [place] [address] Aug, [facility] [address] [facility] [id number] [place] [address] July, [facility] [address] [id number] [place] [address] July, [facility] [address] [id number], [place] [address] Jun, [facility] [address] [id number] [place] [address] Jun, [facility] [address] [id number] [place] [address] 16 Jun, 2011 [facility] [address] [id number] [place] [address] Jun, [facility] [place] [facility] [address] [id number] [place] [address] 15 Apr, 2011 [facility] [place] [facility] [address] [id number] [place] [address] 15 Apr, 2011 [facility] [place] [facility] [address] [id number] [place] [address] 10 Apr, 2011 [facility] [place] [facility] [address] [id number] [place] [address] Mar, [facility] [place] [facility] [address] [id number] [place] [address] Mar, [facility] [place] [facility] [address] [id number] [place] [address] Mar, [facility] [address] [id number] [place] [address] Mar, [facility] [address] [id number] [place] [address] Mar, [facility] [place] [facility] [address] [id number] [place] [address] Jan, [facility] [address] [id number] [place] [address] Jan, [facility] [place] [facility] [address] [id number] [place] [address] Jan, [facility] [place] [facility] [address] [id number] [place] [address] Mar, [facility] [place] [facility] [address] [id number] [place] [address] Mar, [facility] [place] [facility] [address] [id number] [place] [address] Feb, [facility] [place] [facility] [address] [id number] [place] [address] 16 Feb, 2010 [facility] [place] [facility] [address] [id number], [place] [address] 16 Feb, 2010 [facility] [id number], [place] [address] Jan, [facility] [id number], [place] [address] Jan, [facility] [id number], [place] [address] Dec, [facility] [id number], [place] [address] Dec, [facility] [id number], [place] [address] May, [facility] [id number] [place] [address] Apr, [facility] [id number] [place] [address] Feb, [facility] [id number], [place] [address] Feb, [facility] [id number] [place] [address] Jan, [facility] [id number], [place] [address] Jan, [facility] [id number], [place] [address] Jan, [facility] [id number] [address] Jan, [facility] [address] [id number] [address] Jan, IMMUNIZATIONS No Known Immunizations SOCIAL HISTORY [...]
--- OUTSIDE RECORDS SUMMARY | 2018-10-04 07:15 | XMS REPORT ---
Author Author GEOVANNI DHILLON 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 Name Role Phone GEOVANNI DHILLON Unavailable PROBLEMS Type Condition ICD9-CM Code OIF91-MA Code Onset Dates Condition Status SNOMED Code Problem Primary osteoarthritis of both knees M17.0 Active 111803147 Problem Nocturnal hypoxia G47.34 Active 060286577 Problem Pure hypercholesterolemia E78.0 Active 742099586 Problem Type 2 diabetes mellitus with diabetic polyneuropathy E11.42 Active 374347982 Problem Chronic systolic (congestive) heart failure I50.22 Active 141843652 Problem Severe major depression with psychotic features F32.3 Active 61682230 Problem Chronic pain syndrome G89.4 Active 764971939 Problem Tobacco abuse Z72.0 Active 145487157 Problem History of DVT (deep vein thrombosis) Z86.718 Active 404414265 Problem Obesity, morbid, BMI 40.0-49.9 E66.01 Active 127287844 Problem BMI 45.0-49.9, adult Z68.42 Active 575961503 Problem Macrocytosis D75.89 Active 681174480 Problem Obstructive sleep apnea syndrome G47.33 Active 49785139 Problem Pure hypercholesterolemia E78.00 Active 072884140 Problem Gastroesophageal reflux disease, esophagitis presence not specified K21.9 Active 276155640 Problem Major depressive disorder, recurrent episode, unspecified severity F33.9 Active 93751987 Problem Essential hypertension I10 Active 00326491 Problem Mood disorder F39 Active 42248789 Problem Mild episode of recurrent major depressive disorder F33.0 Active 199460426 Problem Chronic systolic congestive heart failure I50.22 Active 851581519 Problem Primary insomnia F51.01 Active 4805834 Problem PTSD (post-traumatic stress disorder) F43.10 Active 75828089 Problem History of weight loss surgery Z98.84 Active 574928255 Problem Non-ischemic cardiomyopathy I42.9 Active 29362194 Problem Chronic obstructive pulmonary disease, unspecified COPD type J44.9 Active 26085447 Problem Acute right-sided low back pain with right-sided sciatica M54.41 Active 61582053 Problem Posttraumatic stress disorder F43.10 Active 53285603 Problem MITCHELL treated with BiPAP G47.33 Active 66852557 Problem Chronic prescription opiate use Z79.891 Active 495068340 ALLERGIES No Information ENCOUNTERS Encounter Location Date Diagnosis [place] [address] [address] Feb, Chronic pain syndrome G89.4 [facility] [address] [place] [id number] [place] [address] 30 Jan, 2018 Obstructive sleep apnea syndrome G47.33 [place] [address] [address] 26 Jan, 2018 Type 2 diabetes mellitus with diabetic polyneuropathy E11.42 ; Chronic pain syndrome G89.4 ; Gastroesophageal reflux disease, esophagitis presence not specified K21.9 ; Essential hypertension I10 ; Pure hypercholesterolemia E78.00 ; Chronic prescription opiate use Z79.891 ; Obstructive sleep apnea syndrome G47.33 and BMI 50.0-59.9, adult Z68.43 [place] [address] [address] 20 Jan, 2018 History of weight loss surgery Z98.84 [place] [address] [place] [id number] [place] [address] 16 Jan, 2018 [facility] [address] [place] [id number] [place] [address] Jan, Chronic pain syndrome G89.4 [facility] [address] [id number] [place] [address] Jan, [facility] [address] [place] [id number] [place] [address] Jan, [facility] [address] [place] [id number] [place] [address] Dec, [facility] [address] [place] [address] Dec, Chronic pain syndrome G89.4 [place] [address] [address] Dec, Injury of left knee, subsequent encounter S89.92XD and Acute pain of left knee M25.562 [place] [address] [address] Dec, [place] [address] [address] Dec, Injury of left knee, initial encounter S89.92XA and BMI 45.0-49.9, adult Z68.42 [place] [address] [address] Nov, Chest discomfort R07.89 ; Shortness of breath R06.02 ; Chronic systolic congestive heart failure I50.22 and Type 2 diabetes mellitus with diabetic polyneuropathy E11.42 [place] [address] [place] [id number] [place] [address] Nov, Chronic pain syndrome G89.4 [place] [address] [address] Oct, BMI 45.0-49.9, adult Z68.42 ; Type 2 diabetes mellitus with diabetic polyneuropathy E11.42 ; Chronic pain syndrome G89.4 ; Gastroesophageal reflux disease, esophagitis presence not specified K21.9 ; Decreased pedal pulses R09.89 and Precordial pain R07.2 [place] [address] [place] [id number] [place] [address] Oct, [place] [address] [address] Oct, Mood disorder F39 [place] [address] [address] Oct, Mood disorder F39 ; Posttraumatic stress disorder F43.10 and BMI 45.0-49.9, adult Z68.42 [place] [address], [place] [address] Sep, Primary osteoarthritis of both knees M17.0 and Chronic pain syndrome G89.4 [place] [address], [place] [address] Sep, Mood disorder F39 and Posttraumatic stress disorder F43.10 [place] [address] [place] [id number] [place] [address] Aug, Primary osteoarthritis of both knees M17.0 and Chronic pain syndrome G89.4 [place] [address] [place] [id number] [place] [address] July, Primary osteoarthritis of both knees M17.0 and Chronic pain syndrome G89.4 [place] [address], [place] [address] July, Type 2 diabetes mellitus with diabetic polyneuropathy E11.42 ; Essential hypertension I10 ; Pure hypercholesterolemia E78.0 ; Chronic prescription opiate use Z79.891 ; Tobacco abuse Z72.0 ; Primary osteoarthritis of both knees M17.0 ; Primary insomnia F51.01 and BMI 45.0-49.9, adult Z68.42 [place] [address], [place] [address] July, Medicare annual wellness visit, initial Z00.00 [...] specified K21.9 and Encounter for immunization Z23 [place] [address], [place] [address] July, Primary osteoarthritis of both knees M17.0 and Chronic pain syndrome G89.4 [facility] [address], [place] [address] Jun, Infection of right ear H66.91 ; Wheezing on auscultation R06.2 and BMI 45.0-49.9, adult Z68.42 [facility] [address] [place] [id number] [place] [address] Jun, [facility] [address] [address] Jun, Primary osteoarthritis of both knees M17.0 and Chronic pain syndrome G89.4 [facility] [address] [place] [id number] [place] [address] May, [facility] [address] [place] [id number] [place] [address] May, BMI 45.0-49.9, adult Z68.42 ; Mood disorder F39 and Posttraumatic stress disorder F43.10 [facility] [address] [place] [id number] [place] [address] May, [facility] [address] [place] [id number] [place] [address] May, Primary osteoarthritis of both knees M17.0 and Chronic pain syndrome G89.4 [facility] [address] [place] [id number] [place] [address] May, Mood disorder F39 [facility] [address] [place] [id number] [place] [address] Apr, Type 2 diabetes mellitus with diabetic polyneuropathy E11.42 [facility] [address] [place] [id number] [place] [address] Apr, [facility] [address] [place] [id number] [place] [address] Apr, Primary osteoarthritis of both knees M17.0 and Chronic pain syndrome G89.4 [facility] [address] [place] [id number] [place] [address] Apr, Mood disorder F39 [facility] [id number] [place] [address] Mar, Mood disorder F39 and Posttraumatic stress disorder F43.10 [facility] [address] [place] [id number] [place] [address] Mar, Primary osteoarthritis of both knees M17.0 and Chronic pain syndrome G89.4 [facility] [address] [place] [id number] [place] [address] Feb, Primary osteoarthritis of both knees M17.0 and Chronic pain syndrome G89.4 [place] [address] [place] [id number] [place] [address] Feb, Mood disorder F39 [place] [address] [place] [id number] [place] [address] Jan, Type 2 diabetes mellitus with diabetic polyneuropathy E11.42 ; Primary osteoarthritis of both knees M17.0 ; Mood disorder F39 ; Obesity, morbid, BMI 40.0-49.9 E66.01 ; Chronic prescription opiate use Z79.891 ; Acute suppurative otitis media of both ears without spontaneous rupture of tympanic membranes, recurrence not specified H66.003 and BMI 45.0-49.9, adult Z68.42 [place] [address] [place] [id number] [place] [address] Jan, Primary osteoarthritis of both knees M17.0 and Chronic pain syndrome G89.4 [facility] [id number] [place] [address] Dec, Mood disorder F39 and Posttraumatic stress disorder F43.10 [facility] [address] [place] [id number] [place] [address] Dec, Primary osteoarthritis of both knees M17.0 and Chronic pain syndrome G89.4 [facility] [id number] [place] [address] Nov, Chronic pain syndrome G89.4 [facility] [address], [place] [address] 15 Nov, 2016 Primary osteoarthritis of both knees M17.0 and Chronic pain syndrome G89.4 [facility] [address], [place] [address] 13 Nov, 2016 Type 2 diabetes mellitus with diabetic polyneuropathy E11.42 and Chronic pain syndrome G89.4 [facility] [address] [place] [id number] [place] [address] 12 Nov, 2016 Posttraumatic stress disorder F43.10 and Mood disorder F39 [facility] [address] [place] [id number] [place] [address] 18 Oct, 2016 Chronic pain syndrome G89.4 [facility] [id number] [place] [address] 16 Oct, 2016 Type 2 diabetes mellitus with diabetic polyneuropathy E11.42 ; BMI 45.0-49.9, adult Z68.42 ; Primary osteoarthritis of both knees M17.0 and Skin lesion L98.9 [facility] [id number] [place] [address] Oct, Chronic pain syndrome G89.4 [facility] [id number] [place] [address] Sep, Chronic pain syndrome G89.4 [facility] [address], [place] [address] Sep, [facility] [id number] [place] [address] Sep, Chronic pain syndrome G89.4 [facility] [id number] [place] [address] Aug, Chronic pain syndrome G89.4 [facility] [id number] [place] [address] Aug, [facility] [address] [place] [id number] [place] [address] Aug, Macrocytosis D75.89 and Pure hypercholesterolemia E78.0 [facility] [address] [place] [id number] [place] [address] Aug, Pure hypercholesterolemia E78.0 [facility] [id number] [place] [address] Aug, Macrocytosis D75.89 [facility] [address] [place] [id number] [place] [address] Aug, Pure hypercholesterolemia E78.0 ; Type 2 diabetes mellitus with diabetic polyneuropathy E11.42 ; MITCHELL treated with BiPAP G47.33 and Chronic pain syndrome G89.4 [facility] [address] [place] [id number] [place] [address] Aug, [place] [address] [place] [id number] [place] [address] Aug, Hemorrhoids, unspecified hemorrhoid type K64.9 [facility] [address] [place] [id number] [place] [address] Aug, Chronic pain syndrome G89.4 ; Type 2 diabetes mellitus with diabetic polyneuropathy E11.42 ; Hemorrhoids, unspecified hemorrhoid type K64.9 ; Tobacco abuse Z72.0 and Primary osteoarthritis of both knees M17.0 [place] [id number] [place] [address] July, Chronic pain syndrome G89.4 [facility] [id number] [place] [address] July, [facility] [address] [place] [id number] [place] [address] Jun, Chronic pain syndrome G89.4 [facility] [id number] [place] [address] Jun, Chronic pain syndrome G89.4 [facility] [address] [place] [id number] [place] [address] Jun, Severe major depression with psychotic features F32.3 and Posttraumatic stress disorder F43.10 [facility] [address] [place] [id number] [place] [address] Jun, Chronic pain syndrome G89.4 [facility] [address] [place] [id number] [place] [address] Jun, [facility] [address] [place] [id number] [place] [address] May, Chronic pain syndrome G89.4 [facility] [address] [place] [id number] [place] [address] May, Tobacco abuse Z72.0 [facility] [address] [place] [id number] [place] [address] May, [facility] [address] [place] [id number] [place] [address] Apr, Chronic pain syndrome G89.4 [facility] [address] [id number] [place] [address] Apr, [facility] [address] [place] [id number] [place] [address] Apr, Right foot pain M79.671 [facility] [address] [id number] [place] [address] Mar, Type 2 diabetes mellitus with diabetic polyneuropathy E11.42 ; MITCHELL treated with BiPAP G47.33 ; Pure hypercholesterolemia E78.0 ; Chronic pain syndrome G89.4 ; Tobacco abuse Z72.0 and Obesity, morbid, BMI 40.0-49.9 E66.01 [facility] [address] [id number] [place] [address] Mar, [facility] [address] [place] [id number] [place] [address] Mar, [facility] [address] [place] [id number] [place] [address] Mar, [facility] [address], [place] [address] Mar, [facility] [id number] [place] [address] Mar, [facility] [address], [place] [address] Mar, Severe major depression with psychotic features F32.3 and Posttraumatic stress disorder F43.10 [facility] [address], [place] [address] Mar, [facility] [address] [id number] [place] [address] Feb, [facility] [address], [place] [address] Feb, [facility] [address] [id number] [place] [address] Jan, [facility] [address], [place] [address] Jan, [facility] [address] [id number] [place] [address] Dec, Posttraumatic stress disorder F43.10 and Severe major depression with psychotic features F32.3 [facility] [address], [place] [address] Dec, Type 2 diabetes mellitus with diabetic polyneuropathy E11.42 ; Chronic pain syndrome G89.4 and Acute right-sided low back pain with right-sided sciatica M54.41 [facility] [address], [place] [address] Dec, [facility] [address], [place] [address] Dec, [facility] [address], [place] [address] Nov, [facility] [id number] [place] [address] Nov, [facility] [address] [id number] [place] [address] Nov, [facility] [id number] [place] [address] Oct, [facility] [address] [id number] [place] [address] Oct, [facility] [address] [id number] [place] [address] Sep, Dental examination Z01.20 [facility] [address] [place] [id number] [place] [address] Sep, [facility] [address] [id number] [place] [address] Sep, Type 2 diabetes mellitus with diabetic polyneuropathy E11.42 ; Chronic pain syndrome G89.4 ; Chronic prescription opiate use Z79.891 ; Injury of right index finger, sequela S69.91XS and Anejaculation N50.8 [facility] [address] [id number] [place] [address] Aug, [facility] [id number] [place] [address] Aug, [facility] [id number] [place] [address] Aug, Cellulitis of finger of right hand L03.011 [facility] [id number] [place] [address] July, [facility] [address] [place] [id number] [place] [address] July, [facility] [id number] [place] [address] Jun, Onychomycosis B35.1 [place] [id number] [place] [address] 13 Jun, 2015 Severe major depression with psychotic features F32.3 and Posttraumatic stress disorder F43.10 [place] [address] [id number] [place] [address] Jun, [place] [address] [place] [id number] [place] [address] Jun, [place] [address] [place] [id number] [place] [address] Jun, [place] [address] [place] [id number] [place] [address] May, Type 2 diabetes mellitus with diabetic polyneuropathy E11.42 [place] [address] [place] [id number] [place] [address] May, Type 2 diabetes mellitus with diabetic polyneuropathy E11.42 and Urinary hesitancy R39.11 [place] [address] [place] [id number] [place] [address] May, Type 2 diabetes mellitus with diabetic polyneuropathy E11.42 ; Left hip pain M25.552 and Benign prostatic hyperplasia with lower urinary tract symptoms, unspecified morphology N40.1 [place] [address] [place] [id number] [place] [address] May, [place] [address] [id number] [place] [address] Apr, Severe major depression with psychotic features F32.3 and Posttraumatic stress disorder F43.10 [place] [id number] [place] [address] Apr, [place] [address] [id number] [place] [address] Mar, [place] [id number] [place] [address] Mar, Dysuria R30.0 and Urinary hesitancy R39.11 [facility] [address], [place] [address] Mar, Onychomycosis B35.1 [facility] [id number] [place] [address] Mar, [facility] [id number] [place] [address] Feb, [facility] [address] [id number] [place] [address] Jan, [facility] [id number] [place] [address] Jan, Posttraumatic stress disorder F43.10 and Severe major depression with psychotic features F32.3 [facility] [address] [id number] [place] [address] Jan, [facility] [address] [id number] [place] [address] Jan, Chronic pain syndrome G89.4 ; Type 2 diabetes mellitus with diabetic polyneuropathy E11.42 ; Decreased pedal pulses R09.89 and Paresthesia of both hands R20.2 [facility] [id number] [place] [address] Dec, Posttraumatic stress disorder F43.10 and Severe major depression with psychotic features F32.3 [facility] [id number] [place] [address] Dec, [facility] [id number] [place] [address] Dec, [facility] [id number] [place] [address] Dec, Onychomycosis B35.1 [facility] [id number] [place] [address] Dec, [facility] [id number] [place] [address] Dec, [facility] [id number] [place] [address] Nov, [place] [address] [id number] [place] [address] Oct, Depression, major, recurrent, moderate 296.32 and Posttraumatic stress disorder 309.81 [place] [address] [address] Oct, [place] [id number] [place] [address] Oct, [place] [address] [address] Oct, [place] [address] [address] Sep, Posttraumatic stress disorder 309.81 and Depression, major, recurrent, moderate 296.32 [place] [id number] [place] [address] Sep, [address] [address] Sep, Chronic airway obstruction, not elsewhere classified [address] [address] Sep, Onychomycosis 110.1 and DM neuro manif type II 250.[address] [place] [id number] [place] [address] Sep, Chronic pain 338.29 ; Chronic airway obstruction, not elsewhere classified 496 ; Osteoarthritis of knees, bilateral 715.96 and On potassium wasting diuretic therapy V58.69 [place] [id number] [place] [address] Sep, Insect bites 919.4 ; Sinusitis 473.9 and GERD (gastroesophageal reflux disease) 530.81 [place] [id number] [place] [address] Aug, Depression, major, recurrent, moderate 296.32 and Posttraumatic stress disorder 309.81 [facility] [id number] [place] [address] Aug, [facility] [id number], [place] [address] Aug, [facility] [id number] [place] [address] Aug, [facility] [id number], [place] [address] July, Major depressive disorder, recurrent episode, moderate 296.32 and Posttraumatic stress disorder 309.81 [facility] [id number] [address] July, [facility] [id number] [place] [address] July, [facility] [id number] [place] [address] July, [facility] [id number] [place] [address] July, [facility] [id number], [place] [address] Jun, [facility] [id number], [place] [address] Jun, [facility] [id number], [place] [address] May, [facility] [id number], [place] [address] May, [facility] [id number], [place] [address] May, [facility] [id number], [place] [address] May, [facility] [place] [facility] [address] [id number] [place] [address] May, 2014 [facility] [place] [facility] [address] [id number] [place] [address] May, 2014 [facility] [place] [facility] [address] [id number] [place] [address] May, 2014 [facility] [place] [facility] [address] [id number] [place] [address] May, 2014 [facility] [place] [facility] [address] [id number] [place] [address] May, [facility] [place] [facility] [address] [id number] [place] [address] Apr, 2014 [facility] [place] [facility] [address] [id number] [place] [address] Apr, 2014 [facility] [place] [facility] [address] [id number] [place] [address] Apr, 2014 [facility] [place] [facility] [address] [id number] [place] [address] Apr, [facility] [place] [facility] [address] [id number] [place] [address] Apr, 2014 [facility] [place] [facility] [address] [facility] [id number] [place] [address] Apr, 2014 [facility] [place] [facility] [address] [id number] [place] [address] Apr, 2014 [facility] [place] [facility] [address] [id number] [place] [address] Apr, [facility] [place] [facility] [address] [id number] [place] [address] Apr, [facility] [place] [facility] [address] [id number] [place] [address] Mar, [facility] [place] [facility] [address] [id number] [place] [address] 30 Mar, 2014 [facility] [place] [facility] [address] [id number] [place] [address] Mar, [facility] [place] [facility] [address] [id number] [place] [address] 23 Mar, 2014 [facility] [place] [facility] [address] [id number] [place] [address] 15 Mar, 2014 [facility] [place] [facility] [address] [id number] [place] [address] 15 Mar, 2014 [facility] [place] [facility] [address] [id number] [place] [address] 15 Mar, 2014 [facility] [place] [facility] [address] [id number] [place] [address] 15 Mar, 2014 [facility] [place] [facility] [address] [id number] [place] [address] Mar, [facility] [place] [facility] [address] [id number] [place] [address] 15 Mar, 2014 [facility] [place] [facility] [address] [id number] [place] [address] 14 Mar, 2014 [facility] [place] [facility] [address] [id number] [place] [address] 14 Mar, 2014 [facility] [place] [facility] [address] [id number] [place] [address] 14 Mar, 2014 [facility] [place] [facility] [address] [id number] [place] [address] 14 Mar, 2014 [facility] [place] [facility] [address] [id number] [place] [address] Mar, [facility] [place] [facility] [address] [id number] [place] [address] 14 Mar, 2014 [facility] [place] [facility] [address] [id number] [place] [address] 09 Mar, 2014 [facility] [place] [facility] [address] [id number] [place] [address] Mar, [facility] [place] [facility] [address] [id number] [place] [address] Feb, [facility] [place] [facility] [address] [id number] [place] [address] 16 Feb, 2014 [facility] [place] [facility] [address] [id number] [place] [address] Feb, [facility] [place] [facility] [address] [id number] [place] [address] 15 Feb, 2014 [facility] [place] [facility] [address] [id number] [place] [address] Feb, [facility] [place] [facility] [address] [id number] [place] [address] Feb, [facility] [place] [facility] [address] [id number] [place] [address] Jan, [facility] [place] [facility] [address] [id number] [place] [address] Jan, [facility] [place] [facility] [address] [id number] [place] [address] Jan, [facility] [place] [facility] [address] [id number] [place] [address] Jan, [facility] [place] [facility] [address] [id number] [place] [address] Jan, [facility] [place] [facility] [address] [id number] [place] [address] Jan, [facility] [place] [facility] [address] [id number] [place] [address] Jan, [facility] [place] [facility] [address] [id number] [place] [address] Jan, [facility] [place] [facility] [address] [id number] [place] [address] Jan, [facility] [place] [facility] [address] [id number] [place] [address] Jan, [facility] [place] [facility] [address] [id number] [place] [address] Dec, [facility] [place] [facility] [address] [id number] [place] [address] Dec, [facility] [place] [facility] [address] [id number] [place] [address] Dec, [facility] [place] [facility] [address] [id number] [place] [address] Dec, [facility] [place] [facility] [address] [id number] [place] [address] 16 Nov, 2013 [facility] [place] [facility] [address] [id number] [place] [address] 16 Nov, 2013 [facility] [place] [facility] [address] [id number] [place] [address] Nov, [facility] [place] [facility] [address] [id number] [place] [address] Nov, [facility] [place] [facility] [address] [id number] [place] [address] Nov, [facility] [place] [facility] [address] [id number] [place] [address] Nov, [facility] [place] [facility] [address] [id number], [place] [address] Oct, [facility] [place] [facility] [address] [id number] [place] [address] Oct, [facility] [place] [facility] [address] [id number] [place] [address] Oct, [facility] [place] [facility] [address] [id number] [place] [address] Oct, [facility] [place] [facility] [address] [id number] [place] [address] Sep, [facility] [address] [id number] [place] [address] Sep, [facility] [place] [facility] [address] [id number] [place] [address] Sep, [facility] [address] [id number] [place] [address] Sep, [facility] [place] [facility] [address] [id number] [place] [address] Sep, [facility] [place] [facility] [address] [id number] [place] [address] Sep, [facility] [address] [id number] [place] [address] July, [facility] [address] [id number] [place] [address] July, [facility] [address] [id number] [place] [address] July, [facility] [place] [facility] [address] [id number] [place] [address] July, [facility] [address] [id number] [place] [address] Jun, [facility] [place] [facility] [address] [id number] [place] [address] Jun, [facility] [place] [facility] [address] [id number] [place] [address] Jun, [facility] [place] [facility] [address] [id number] [place] [address] Jun, [facility] [place] [facility] [address] [id number] [place] [address] Jun, [facility] [place] [facility] [address] [id number] [place] [address] Jun, [facility] [place] [facility] [address] [id number] [place] [address] May, [facility] [place] [facility] [address] [id number] [place] [address] May, [facility] [place] [facility] [address] [id number] [place] [address] Apr, [facility] [place] [facility] [address] [id number] [place] [address] Apr, [facility] [place] [facility] [address] [id number] [place] [address] Apr, [facility] [place] [facility] [address] [id number] [place] [address] Apr, [facility] [place] [facility] [address] [id number] [place] [address] Apr, [facility] [place] [facility] [address] [id number] [place] [address] Apr, [facility] [place] [facility] [address] [id number] [place] [address] Apr, [facility] [place] [facility] [address] [id number] [place] [address] Mar, [facility] [place] [facility] [address] [id number] [address] Mar, [facility] [place] [facility] [address] [id number], [place] [address] Mar, [facility] [place] [facility] [address] [id number] [place] [address] Mar, [facility] [place] [facility] [address] [id number] [place] [address] Mar, [facility] [place] [facility] [address] [id number] [place] [address] Mar, [facility] [place] [facility] [address] [id number] [place] [address] 13 Mar, 2013 [facility] [address] [id number] [place] [address] 13 Mar, 2013 [facility] [place] [facility] [address] [id number] [place] [address] Feb, [facility] [address] [id number] [place] [address] Feb, [facility] [place] [facility] [address] [id number] [place] [address] Feb, [facility] [address] [id number] [place] [address] Feb, [facility] [address] [id number] [place] [address] Feb, [facility] [address] [id number] [place] [address] Feb, [facility] [address] [id number] [place] [address] Feb, [facility] [place] [facility] [address] [id number] [place] [address] Jan, [facility] [address] [id number] [place] [address] Jan, [facility] [address] [id number] [place] [address] Jan, [facility] [address] [id number] [address] Jan, [facility] [place] [facility] [address] [id number] [place] [address] Jan, [facility] [place] [facility] [address] [id number] [place] [address] Jan, [facility] [address] [id number] [place] [address] Jan, [facility] [place] [facility] [address] [id number] [address] Jan, [facility] [place] [facility] [address] [id number] [place] [address] Dec, 2012 [facility] [place] [facility] [address] [id number] [place] [address] Dec, 2012 [facility] [place] [facility] [address] [id number] [place] [address] Dec, 2012 [facility] [place] [facility] [address] [id number] [place] [address] Dec, 2012 [facility] [place] [facility] [address] [id number] [place] [address] Dec, [facility] [place] [facility] [address] [id number] [place] [address] Dec, [facility] [place] [facility] [address] [id number] [place] [address] Dec, [facility] [place] [facility] [address] [id number] [place] [address] Dec, [facility] [place] [facility] [address] [id number] [place] [address] Dec, [facility] [place] [facility] [address] [id number] [place] [address] Dec, [facility] [place] [facility] [address] [id number] [id number] 27 Nov, 2012 [facility] [place] [facility] [address] [id number] [id number] 27 Nov, 2012 [facility] [place] [facility] [address] [id number] [place] [address] 24 Nov, 2012 [facility] [place] [facility] [address] [id number] [place] [address] 20 Nov, 2012 [facility] [place] [facility] [address] [id number] [place] [address] Nov, [facility] [place] [facility] [address] [id number] [place] [address] Nov, [facility] [place] [facility] [address] [id number] [place] [address] Nov, [facility] [place] [facility] [address] [id number] [place] [address] Nov, [facility] [place] [facility] [address] [id number] [place] [address] Oct, [facility] [place] [facility] [address] [id number] [place] [address] Oct, [facility] [place] [facility] [address] [id number] [place] [address] Oct, [facility] [place] [facility] [address] [id number] [place] [address] Sep, [facility] [place] [facility] [address] [id number] [place] [address] Sep, [facility] [place] [facility] [address] [id number] [place] [address] Sep, [facility] [place] [facility] [address] [id number] [place] [address] Sep, [facility] [place] [facility] [address] [id number] [place] [address] Sep, [facility] [place] [facility] [address] [id number] [place] [address] Aug, [facility] [place] [facility] [address] [id number] [place] [address] Aug, [facility] [place] [facility] [address] [id number] [place] [address] Aug, [facility] [place] [facility] [address] [id number] [place] [address] Aug, [facility] [place] [facility] [address] [id number] [place] [address] Aug, [facility] [address] [id number] [place] [address] Aug, [facility] [address] [id number] [place] [address] July, [facility] [address] [id number] [place] [address] July, [facility] [address] [id number] [place] [address] July, [facility] [address] [id number] [place] [address] July, [facility] [address] [id number] [place] [address] July, [facility] [address] [id number] [place] [address] July, [facility] [address] [id number] [place] [address] Jun, [facility] [address] [id number] [place] [address] Jun, [facility] [address] [id number] [place] [address] Jun, [facility] [address] [id number] [place] [address] Jun, [facility] [address] [id number] [place] [address] May, [facility] [address] [id number] [place] [address] May, [facility] [address] [id number] [place] [address] May, [facility] [address] [id number] [place] [address] Apr, [facility] [address] [id number] [place] [address] Mar, [facility] [place] [facility] [address] [id number] [place] [address] 18 Mar, 2012 [facility] [place] [facility] [address] [id number] [place] [address] 17 Mar, 2012 [facility] [place] [facility] [address] [id number] [place] [address] 16 Mar, 2012 [facility] [place] [facility] [address] [id number] [place] [address] 15 Mar, 2012 [facility] [place] [facility] [address] [id number] [place] [address] Feb, [facility] [place] [facility] [address] [id number] [place] [address] Feb, [facility] [place] [facility] [address] [id number] [place] [address] Feb, [facility] [place] [facility] [address] [id number] [place] [address] Feb, [facility] [place] [facility] [address] [id number] [place] [address] Jan, [facility] [place] [facility] [address] [id number] [place] [address] Jan, [facility] [place] [facility] [address] [id number] [place] [address] Jan, [facility] [place] [facility] [address] [id number] [place] [address] Jan, [facility] [place] [facility] [address] [id number] [place] [address] Dec, [facility] [place] [facility] [address] [id number] [place] [address] Dec, [facility] [place] [facility] [address] [id number] [place] [address] Nov, [facility] [address] [id number] [place] [address] Oct, [facility] [address] [id number] [place] [address] Oct, [facility] [address] [id number] [place] [address] Oct, [facility] [address] [id number] [place] [address] Oct, [facility] [address] [id number] [place] [address] Oct, [facility] [address] [id number] [place] [address] Sep, [facility] [address] [id number] [place] [address] Sep, [facility] [address] [facility] [id number], [place] [address] Aug, [facility] [address] [place] [id number] Aug, [facility] [address] [id number], [place] [address] Aug, [facility] [address] [facility] [id number], [place] [address] July, [facility] [address] [id number], [place] [address] July, [facility] [address] [id number] [place] [address] Jun, [facility] [address] [id number] [place] [address] Jun, [facility] [address] [id number], [place] [address] Jun, [facility] [address] [id number], [place] [address] Jun, [facility] [address] [id number] [place] [address] 15 Apr, 2011 [facility] [address] [id number] [place] [address] 15 Apr, 2011 [facility] [address] [id number] [place] [address] Apr, [facility] [address] [id number] [place] [address] Mar, [facility] [address] [id number] [place] [address] Mar, [facility] [address] [id number] [place] [address] Mar, [facility] [address] [id number] [place] [address] Mar, [facility] [address] [id number] [place] [address] Mar, [facility] [address] [id number] [place] [address] Jan, [facility] [address] [facility] [id number] [place] [address] Jan, [facility] [address] [id number] [place] [address] Jan, [facility] [place] [facility] [address] [id number] [place] [address] Mar, [facility] [address] [id number] [place] [address] Mar, [facility] [address] [id number] [place] [address] Feb, [facility] [address] [id number] [place] [address] 16 Feb, 2010 [facility] [place] [facility] [address] [facility] [id number], [place] [address] 16 Feb, 2010 [facility] [id number] [address] Jan, [facility] [address] [facility] [id number], [place] [address] Jan, [facility] [id number] [place] [address] Dec, [facility] [address] [facility] [id number], [place] [address] Dec, [facility] [id number] [place] [address] May, [facility] [id number] [place] [address] Apr, [facility] [id number] [place] [address] Feb, [facility] [id number] [address] Feb, [facility] [id number] [place] [address] Jan, [facility] [id number], [place] [address] Jan, [facility] [id number], [place] [address] Jan, [facility] [address] [id number] [address] Jan, [facility] [id number] [address] Jan, IMMUNIZATIONS No Known Immunizations SOCIAL HISTORY Never Assessed REASON FOR VISIT Controlled Medication Refill- Due 02/24 PLAN OF CARE VITAL SIGNS MEDICATIONS Medication Instructions Dosage Frequency Start Date End Date Duration Status MS Contin 30 MG Orally every 12 hrs 1 tablet 12h 14 Feb, 2018 28 days Active Hydrocodone-Acetaminophen 5-325 MG [...]
--- OUTSIDE RECORDS SUMMARY | 2018-10-04 07:16 | XMS REPORT ---
Author Author KATHY ESTHER [facility] Address [address] [place] [address] Care Team Providers Care Account Strategist Name Role Phone KATHYCIARA VILLEGASHANY Unavailable PROBLEMS Type Condition ICD9-CM Code RFJ16-CD Code Onset Dates Condition Status SNOMED Code Problem Primary osteoarthritis of both knees M17.0 Active 266510156 Problem Nocturnal hypoxia G47.34 Active 567253166 Problem Pure hypercholesterolemia E78.0 Active 569894423 Problem Type 2 diabetes mellitus with diabetic polyneuropathy E11.42 Active 610084664 Problem Chronic systolic (congestive) heart failure I50.22 Active 228840020 Problem Severe major depression with psychotic features F32.3 Active 99232336 Problem Chronic pain syndrome G89.4 Active 504929807 Problem Tobacco abuse Z72.0 Active 120973776 Problem History of DVT (deep vein thrombosis) Z86.718 Active 983476939 Problem Obesity, morbid, BMI 40.0-49.9 E66.01 Active 092232011 Problem BMI 45.0-49.9, adult Z68.42 Active 449212288 Problem Macrocytosis D75.89 Active 463364815 Problem Obstructive sleep apnea syndrome G47.33 Active 12367183 Problem Pure hypercholesterolemia E78.00 Active 619332804 Problem Gastroesophageal reflux disease, esophagitis presence not specified K21.9 Active 350348535 Problem Major depressive disorder, recurrent episode, unspecified severity F33.9 Active 23634040 Problem Essential hypertension I10 Active 48976659 Problem Mood disorder F39 Active 90367144 Problem Mild episode of recurrent major depressive disorder F33.0 Active 723304468 Problem Chronic systolic congestive heart failure I50.22 Active 714042816 Problem Primary insomnia F51.01 Active 9562179 Problem PTSD (post-traumatic stress disorder) F43.10 Active 11280068 Problem History of weight loss surgery Z98.84 Active 698194518 Problem Non-ischemic cardiomyopathy I42.9 Active 68575197 Problem Chronic obstructive pulmonary disease, unspecified COPD type J44.9 Active 92311972 Problem Acute right-sided low back pain with right-sided sciatica M54.41 Active 46168324 Problem Posttraumatic stress disorder F43.10 Active 59040221 Problem MITCHELL treated with BiPAP G47.33 Active 06302142 Problem Chronic prescription opiate use Z79.891 Active 862877720 ALLERGIES No Information ENCOUNTERS Encounter Location Date Diagnosis [place] [address] [address] 30 Jan, 2018 Obstructive sleep apnea syndrome G47.33 [place] [address] [address] 26 Jan, 2018 Type 2 diabetes mellitus with diabetic polyneuropathy E11.42 ; Chronic pain syndrome G89.4 ; Gastroesophageal reflux disease, esophagitis presence not specified K21.9 ; Essential hypertension I10 ; Pure hypercholesterolemia E78.00 ; Chronic prescription opiate use Z79.891 ; Obstructive sleep apnea syndrome G47.33 and BMI 50.0-59.9, adult Z68.43 [place] [address] [address] 20 Jan, 2018 History of weight loss surgery Z98.84 [place] [address] [address] 16 Jan, 2018 [place] [address] [address] 16 Jan, 2018 Chronic pain syndrome G89.4 [place] [address] [address] Jan, [place] [address] [place] [id number] [place] [address] Jan, [place] [address] [address] Dec, [place] [address] [address] Dec, Chronic pain syndrome G89.4 [place] [address] [place] [address] Dec, Injury of left knee, subsequent encounter S89.92XD and Acute pain of left knee M25.562 [place] [address] [place] [id number] [place] [address] Dec, [place] [address] [place] [id number] [place] [address] Dec, Injury of left knee, initial encounter S89.92XA and BMI 45.0-49.9, adult Z68.42 [place] [address] [address] Nov, Chest discomfort R07.89 ; Shortness of breath R06.02 ; Chronic systolic congestive heart failure I50.22 and Type 2 diabetes mellitus with diabetic polyneuropathy E11.42 [place] [address] [place] [id number] [place] [address] Nov, Chronic pain syndrome G89.4 [place] [address] [place] [id number] [place] [address] Oct, BMI 45.0-49.9, adult Z68.42 ; Type 2 diabetes mellitus with diabetic polyneuropathy E11.42 ; Chronic pain syndrome G89.4 ; Gastroesophageal reflux disease, esophagitis presence not specified K21.9 ; Decreased pedal pulses R09.89 and Precordial pain R07.2 [place] [address] [place] [id number] [place] [address] Oct, [place] [address] [place] [id number] [place] [address] Oct, Mood disorder F39 [place] [address] [place] [id number] [place] [address] Oct, Mood disorder F39 ; Posttraumatic stress disorder F43.10 and BMI 45.0-49.9, adult Z68.42 [place] [address] [place] [id number] [place] [address] Sep, Primary osteoarthritis of both knees M17.0 and Chronic pain syndrome G89.4 [facility] [id number] [place] [address] Sep, Mood disorder F39 and Posttraumatic stress disorder F43.10 [place] [address] [place] [id number] [place] [address] Aug, Primary osteoarthritis of both knees M17.0 and Chronic pain syndrome G89.4 [place] [address] [place] [id number] [place] [address] July, Primary osteoarthritis of both knees M17.0 and Chronic pain syndrome G89.4 [place] [address] [place] [id number] [place] [address] July, Type 2 diabetes mellitus with diabetic polyneuropathy E11.42 ; Essential hypertension I10 ; Pure hypercholesterolemia E78.0 ; Chronic prescription opiate use Z79.891 ; Tobacco abuse Z72.0 ; Primary osteoarthritis of both knees M17.0 ; Primary insomnia F51.01 and BMI 45.0-49.9, adult Z68.42 [place] [address] [place] [id number] [place] [address] July, Medicare annual wellness visit, initial Z00.00 [...] specified K21.9 and Encounter for immunization Z23 [place] [address] [place] [id number] [place] [address] July, Primary osteoarthritis of both knees M17.0 and Chronic pain syndrome G89.4 [facility] [address] [place] [address] Jun, Infection of right ear H66.91 ; Wheezing on auscultation R06.2 and BMI 45.0-49.9, adult Z68.42 [facility] [address] [place] [id number] [place] [address] Jun, [facility] [address] [place] [id number] [place] [address] Jun, Primary osteoarthritis of both knees M17.0 and Chronic pain syndrome G89.4 [facility] [address] [place] [id number] [place] [address] May, [facility] [address] [place] [id number] [place] [address] May, BMI 45.0-49.9, adult Z68.42 ; Mood disorder F39 and Posttraumatic stress disorder F43.10 [facility] [address] [place] [id number] [place] [address] May, [facility] [address] [place] [id number] [place] [address] May, Primary osteoarthritis of both knees M17.0 and Chronic pain syndrome G89.4 [facility] [address] [place] [id number] [place] [address] May, Mood disorder F39 [facility] [address] [place] [id number] [place] [address] Apr, Type 2 diabetes mellitus with diabetic polyneuropathy E11.42 [facility] [address] [place] [id number] [place] [address] Apr, [facility] [address] [place] [id number] [place] [address] Apr, Primary osteoarthritis of both knees M17.0 and Chronic pain syndrome G89.4 [facility] [address] [place] [address] Apr, Mood disorder F39 [facility] [address] [place] [id number] [place] [address] Mar, Mood disorder F39 and Posttraumatic stress disorder F43.10 [facility] [address] [place] [address] Mar, Primary osteoarthritis of both knees M17.0 and Chronic pain syndrome G89.4 [facility] [address] [place] [id number] [place] [address] Feb, Primary osteoarthritis of both knees M17.0 and Chronic pain syndrome G89.4 [facility] [address] [place] [id number] [place] [address] Feb, Mood disorder F39 [facility] [address] [place] [id number] [place] [address] Jan, Type 2 diabetes mellitus with diabetic polyneuropathy E11.42 ; Primary osteoarthritis of both knees M17.0 ; Mood disorder F39 ; Obesity, morbid, BMI 40.0-49.9 E66.01 ; Chronic prescription opiate use Z79.891 ; Acute suppurative otitis media of both ears without spontaneous rupture of tympanic membranes, recurrence not specified H66.003 and BMI 45.0-49.9, adult Z68.42 [facility] [address] [place] [id number] [place] [address] Jan, Primary osteoarthritis of both knees M17.0 and Chronic pain syndrome G89.4 [facility] [address] [place] [address] Dec, Mood disorder F39 and Posttraumatic stress disorder F43.10 [facility] [address] [place] [address] Dec, Primary osteoarthritis of both knees M17.0 and Chronic pain syndrome G89.4 [facility] [address] [place] [id number] [place] [address] 18 Nov, 2016 Chronic pain syndrome G89.4 [facility] [address] [place] [id number] [place] [address] 15 Nov, 2016 Primary osteoarthritis of both knees M17.0 and Chronic pain syndrome G89.4 [facility] [address] [address] 13 Nov, 2016 Type 2 diabetes mellitus with diabetic polyneuropathy E11.42 and Chronic pain syndrome G89.4 [facility] [address] [address] 12 Nov, 2016 Posttraumatic stress disorder F43.10 and Mood disorder F39 [facility] [address] [place] [id number] [place] [address] Oct, Chronic pain syndrome G89.4 [facility] [address] [place] [address] Oct, Type 2 diabetes mellitus with diabetic polyneuropathy E11.42 ; BMI 45.0-49.9, adult Z68.42 ; Primary osteoarthritis of both knees M17.0 and Skin lesion L98.9 [facility] [address] [place] [address] Oct, Chronic pain syndrome G89.4 [facility] [id number] [place] [address] Sep, Chronic pain syndrome G89.4 [facility] [id number] [place] [address] Sep, [facility] [address] [place] [address] Sep, Chronic pain syndrome G89.4 [facility] [address] [address] Aug, Chronic pain syndrome G89.4 [facility] [id number] [place] [address] Aug, [facility] [id number] [place] [address] Aug, Macrocytosis D75.89 and Pure hypercholesterolemia E78.0 [facility] [address] [place] [id number] [place] [address] Aug, Pure hypercholesterolemia E78.0 [place] [address] [place] [id number] [place] [address] Aug, Macrocytosis D75.89 [place] [address] [place] [id number] [place] [address] Aug, Pure hypercholesterolemia E78.0 ; Type 2 diabetes mellitus with diabetic polyneuropathy E11.42 ; MITCHELL treated with BiPAP G47.33 and Chronic pain syndrome G89.4 [place] [address] [place] [id number] [place] [address] Aug, [place] [address] [place] [id number] [place] [address] Aug, Hemorrhoids, unspecified hemorrhoid type K64.9 [place] [address] [place] [id number] [place] [address] Aug, Chronic pain syndrome G89.4 ; Type 2 diabetes mellitus with diabetic polyneuropathy E11.42 ; Hemorrhoids, unspecified hemorrhoid type K64.9 ; Tobacco abuse Z72.0 and Primary osteoarthritis of both knees M17.0 [place] [address] [place] [id number] [place] [address] July, Chronic pain syndrome G89.4 [place] [address] [place] [id number] [place] [address] July, [place] [address] [place] [id number] [place] [address] Jun, Chronic pain syndrome G89.4 [place] [address] [place] [id number] [place] [address] Jun, Chronic pain syndrome G89.4 [place] [address] [place] [id number] [place] [address] Jun, Severe major depression with psychotic features F32.3 and Posttraumatic stress disorder F43.10 [place] [address] [place] [id number] [place] [address] Jun, Chronic pain syndrome G89.4 [facility] [address] [place] [id number] [place] [address] Jun, [facility] [address] [place] [id number] [place] [address] May, Chronic pain syndrome G89.4 [facility] [address] [place] [id number] [place] [address] May, Tobacco abuse Z72.0 [facility] [address] [place] [id number] [place] [address] May, [facility] [address] [place] [id number] [place] [address] Apr, Chronic pain syndrome G89.4 [facility] [address] [place] [id number] [place] [address] Apr, [facility] [address] [place] [id number] [place] [address] Apr, Right foot pain M79.671 [facility] [address] [place] [id number] [place] [address] Mar, Type 2 diabetes mellitus with diabetic polyneuropathy E11.42 ; MITCHELL treated with BiPAP G47.33 ; Pure hypercholesterolemia E78.0 ; Chronic pain syndrome G89.4 ; Tobacco abuse Z72.0 and Obesity, morbid, BMI 40.0-49.9 E66.01 [facility] [address] [place] [id number] [place] [address] Mar, [facility] [address] [place] [id number] [place] [address] Mar, [facility] [address] [place] [id number] [place] [address] Mar, [facility] [address] [place] [id number] [place] [address] Mar, [facility] [address] [address] Mar, [facility] [address] [place] [address] Mar, Severe major depression with psychotic features F32.3 and Posttraumatic stress disorder F43.10 [facility] [address] [address] Mar, [facility] [address] [facility] [id number] [address] Feb, [facility] [address] [place] [id number] [place] [address] Feb, [facility] [address] [place] [id number] [place] [address] Jan, [facility] [address] [place] [id number] [place] [address] Jan, [facility] [address] [place] [address] Dec, Posttraumatic stress disorder F43.10 and Severe major depression with psychotic features F32.3 [facility] [address] [address] Dec, Type 2 diabetes mellitus with diabetic polyneuropathy E11.42 ; Chronic pain syndrome G89.4 and Acute right-sided low back pain with right-sided sciatica M54.41 [facility] [address] [address] Dec, [facility] [address] [place] [address] [address] Dec, [facility] [address] [address] Nov, [facility] [address] [address] Nov, [facility] [address], [place] [address] Nov, [facility] [address] [place] [id number] [place] [address] Oct, [facility] [address] [place] [id number] [place] [address] Oct, [facility] [address] [place] [id number] [place] [address] Sep, Dental examination Z01.20 [facility] [address] [place] [id number] [place] [address] Sep, [facility] [address] [place] [id number] [place] [address] Sep, Type 2 diabetes mellitus with diabetic polyneuropathy E11.42 ; Chronic pain syndrome G89.4 ; Chronic prescription opiate use Z79.891 ; Injury of right index finger, sequela S69.91XS and Anejaculation N50.8 [facility] [address] [place] [id number] [place] [address] Aug, [facility] [address] [place] [id number] [place] [address] Aug, [facility] [address], [place] [address] Aug, Cellulitis of finger of right hand L03.011 [facility] [address], [place] [address] July, [facility] [address] [place] [address] July, [facility] [address] [place] [id number] [place] [address] Jun, Onychomycosis B35.1 [facility] [address] [place] [address] Jun, Severe major depression with psychotic features F32.3 and Posttraumatic stress disorder F43.10 [facility] [address], [place] [address] Jun, [facility] [address] [place] [address] Jun, [facility] [address] [address] Jun, [facility] [address] [place] [id number] [place] [address] May, Type 2 diabetes mellitus with diabetic polyneuropathy E11.42 [facility] [address] [place] [id number] [place] [address] May, Type 2 diabetes mellitus with diabetic polyneuropathy E11.42 and Urinary hesitancy R39.11 [facility] [address] [place] [address] May, Type 2 diabetes mellitus with diabetic polyneuropathy E11.42 ; Left hip pain M25.552 and Benign prostatic hyperplasia with lower urinary tract symptoms, unspecified morphology N40.1 [facility] [address] [place] [address] May, [facility] [address] [address] Apr, Severe major depression with psychotic features F32.3 and Posttraumatic stress disorder F43.10 [facility] [address], [place] [address] Apr, [facility] [address], [place] [address] Mar, [facility] [address] [place] [id number] [place] [address] Mar, Dysuria R30.0 and Urinary hesitancy R39.11 [facility] [address] [place] [address] Mar, Onychomycosis B35.1 [facility] [address], [place] [address] Mar, [facility] [address] [address] Feb, [facility] [address] [address] Jan, [facility] [address] [place] [id number] [place] [address] Jan, Posttraumatic stress disorder F43.10 and Severe major depression with psychotic features F32.3 [facility] [address] [place] [address] Jan, [facility] [address] [address] Jan, Chronic pain syndrome G89.4 ; Type 2 diabetes mellitus with diabetic polyneuropathy E11.42 ; Decreased pedal pulses R09.89 and Paresthesia of both hands R20.2 [facility] [address] [address] Dec, Posttraumatic stress disorder F43.10 and Severe major depression with psychotic features F32.3 [facility] [address], [place] [address] Dec, [facility] [address] [address] Dec, [facility] [address] [address] Dec, Onychomycosis B35.1 [facility] [address], [place] [address] Dec, [facility] [address], [place] [address] Dec, [facility] [address], [place] [address] Nov, [place] [address] [address] Oct, Depression, major, recurrent, moderate 296.32 and Posttraumatic stress disorder 309.81 [facility] [address] [place] [id number] [place] [address] Oct, [place] [address] [place] [id number] [place] [address] Oct, [facility] [address] [place] [id number] [place] [address] Oct, [place] [address] [place] [id number] [place] [address] Sep, Posttraumatic stress disorder 309.81 and Depression, major, recurrent, moderate 296.32 [place] [id number] [place] [address] Sep, [place] [address] [place] [id number] [place] [address] Sep, Chronic airway obstruction, not elsewhere classified [address] [place] [id number] [place] [address] Sep, Onychomycosis 110.1 and DM neuro manif type II 250.60 [place] [id number] [place] [address] Sep, Chronic pain 338.29 ; Chronic airway obstruction, not elsewhere classified 496 ; Osteoarthritis of knees, bilateral 715.96 and On potassium wasting diuretic therapy V58.69 [place] [address] [place] [id number] [place] [address] Sep, Insect bites 919.4 ; Sinusitis 473.9 and GERD (gastroesophageal reflux disease) 530.81 [place] [address] [place] [address] Aug, Depression, major, recurrent, moderate 296.32 and Posttraumatic stress disorder 309.81 [place] [address] [facility] [id number] [address] Aug, [facility] [address] [id number] [place] [address] Aug, [facility] [address] [id number] [place] [address] Aug, [facility] [address] [facility] [id number] [address] July, Major depressive disorder, recurrent episode, moderate 296.32 and Posttraumatic stress disorder 309.81 [facility] [address] [id number] [place] [address] July, [facility] [address] [facility] [id number] [address] July, [facility] [address] [id number] [address] July, [facility] [address] [id number], [place] [address] July, [facility] [address] [id number] [place] [address] Jun, [facility] [address] [id number], [place] [address] Jun, [facility] [address] [id number], [place] [address] May, [facility] [address] [id number], [place] [address] May, [facility] [place] [facility] [address] [id number] [place] [address] May, [facility] [place] [facility] [address] [id number], [place] [address] May, [facility] [address] [id number] [place] [address] May, [facility] [address] [id number] [place] [address] May, [facility] [place] [facility] [address] [id number] [place] [address] May, [facility] [place] [facility] [address] [id number] [place] [address] May, [facility] [place] [facility] [address] [id number] [place] [address] May, [facility] [place] [facility] [address] [id number] [place] [address] Apr, 2014 [facility] [place] [facility] [address] [id number] [place] [address] Apr, 2014 [facility] [place] [facility] [address] [id number] [place] [address] Apr, 2014 [facility] [place] [facility] [address] [id number] [place] [address] Apr, 2014 [facility] [place] [facility] [address] [id number] [place] [address] Apr, [facility] [place] [facility] [address] [id number] [place] [address] Apr, [facility] [place] [facility] [address] [id number] [place] [address] Apr, [facility] [place] [facility] [address] [id number], [place] [address] Apr, [facility] [place] [facility] [address] [id number] [place] [address] Apr, [facility] [place] [facility] [address] [id number] [place] [address] Mar, [facility] [place] [facility] [address] [id number] [place] [address] Mar, [facility] [place] [facility] [address] [id number], [place] [address] Mar, [facility] [place] [facility] [address] [id number] [place] [address] Mar, [facility] [place] [facility] [address] [id number] [place] [address] Mar, [facility] [place] [facility] [address] [id number] [place] [address] 15 Mar, 2014 [facility] [place] [facility] [address] [id number] [place] [address] 15 Mar, 2014 [facility] [place] [facility] [address] [id number] [place] [address] Mar, [facility] [place] [facility] [address] [id number] [place] [address] Mar, [facility] [place] [facility] [address] [id number] [place] [address] Mar, [facility] [place] [facility] [address] [id number] [place] [address] 14 Mar, 2014 [facility] [place] [facility] [address] [id number] [place] [address] Mar, [facility] [place] [facility] [address] [id number] [place] [address] Mar, [facility] [place] [facility] [address] [id number], [place] [address] Mar, [facility] [place] [facility] [address] [id number], [place] [address] Mar, [facility] [place] [facility] [address] [id number] [place] [address] Mar, [facility] [place] [facility] [address] [id number], [place] [address] Mar, [facility] [place] [facility] [address] [id number] [place] [address] Mar, [facility] [place] [facility] [address] [id number] [place] [address] 16 Feb, 2014 [facility] [place] [facility] [address] [id number] [place] [address] 16 Feb, 2014 [facility] [place] [facility] [address] [id number] [place] [address] 15 Feb, 2014 [facility] [place] [facility] [address] [id number] [place] [address] 15 Feb, 2014 [facility] [place] [facility] [address] [id number] [place] [address] 15 Feb, 2014 [facility] [place] [facility] [address] [id number] [place] [address] Feb, [facility] [place] [facility] [address] [id number] [place] [address] Jan, [facility] [place] [facility] [address] [id number] [place] [address] Jan, [facility] [place] [facility] [address] [id number] [place] [address] Jan, [facility] [place] [facility] [address] [id number] [place] [address] Jan, [facility] [place] [facility] [address] [id number] [place] [address] Jan, [facility] [place] [facility] [address] [id number] [place] [address] Jan, [facility] [place] [facility] [address] [id number] [place] [address] Jan, [facility] [place] [facility] [address] [id number] [place] [address] Jan, [facility] [place] [facility] [address] [id number] [place] [address] Jan, [facility] [place] [facility] [address] [id number] [place] [address] Jan, [facility] [place] [facility] [address] [id number] [place] [address] Dec, [facility] [place] [facility] [address] [id number] [place] [address] Dec, [facility] [place] [facility] [address] [id number] [place] [address] Dec, [facility] [place] [facility] [address] [id number] [place] [address] Dec, [facility] [place] [facility] [address] [id number] [place] [address] Nov, [facility] [place] [facility] [address] [id number] [place] [address] Nov, [facility] [place] [facility] [address] [id number] [place] [address] Nov, [facility] [place] [facility] [address] [id number] [place] [address] Nov, [facility] [place] [facility] [address] [id number] [place] [address] Nov, [facility] [place] [facility] [address] [id number] [place] [address] Nov, [facility] [place] [facility] [address] [id number] [place] [address] Oct, [facility] [place] [facility] [address] [id number] [place] [address] Oct, [facility] [place] [facility] [address] [id number] [place] [address] Oct, [facility] [place] [facility] [address] [id number] [place] [address] Oct, [facility] [place] [facility] [address] [id number] [place] [address] Sep, [facility] [place] [facility] [address] [id number] [place] [address] Sep, [facility] [place] [facility] [address] [id number] [place] [address] Sep, [facility] [place] [facility] [address] [id number] [place] [address] Sep, [facility] [place] [facility] [address] [id number] [place] [address] Sep, [facility] [place] [facility] [address] [id number] [place] [address] Sep, [facility] [place] [facility] [address] [id number] [place] [address] July, [facility] [place] [facility] [address] [id number] [place] [address] July, [facility] [place] [facility] [address] [id number] [place] [address] July, [facility] [place] [facility] [address] [id number] [place] [address] July, [facility] [place] [facility] [address] [id number] [place] [address] Jun, [facility] [place] [facility] [address] [id number] [place] [address] Jun, [facility] [place] [facility] [address] [id number] [place] [address] Jun, [facility] [place] [facility] [address] [id number] [place] [address] Jun, [facility] [place] [facility] [address] [id number] [place] [address] Jun, [facility] [place] [facility] [address] [id number] [place] [address] Jun, [facility] [place] [facility] [address] [id number] [place] [address] May, [facility] [place] [facility] [address] [id number] [place] [address] May, [facility] [place] [facility] [address] [id number] [place] [address] Apr, [facility] [place] [facility] [address] [id number] [place] [address] Apr, [facility] [place] [facility] [address] [id number] [place] [address] Apr, [facility] [place] [facility] [address] [id number] [place] [address] Apr, [facility] [place] [facility] [address] [id number] [place] [address] Apr, [facility] [place] [facility] [address] [id number] [place] [address] Apr, [facility] [place] [facility] [address] [id number] [place] [address] Apr, [facility] [place] [facility] [address] [id number] [place] [address] Mar, [facility] [place] [facility] [address] [id number], [place] [address] Mar, [facility] [place] [facility] [address] [id number], [place] [address] Mar, [facility] [place] [facility] [address] [id number], [place] [address] Mar, [facility] [place] [facility] [address] [id number] [place] [address] Mar, [facility] [place] [facility] [address] [id number] [place] [address] Mar, [facility] [place] [facility] [address] [id number], [place] [address] Mar, [facility] [place] [facility] [address] [id number], [place] [address] Mar, [facility] [address] [id number] [place] [address] Feb, [facility] [place] [facility] [address] [id number], [place] [address] Feb, [facility] [address] [id number] [place] [address] Feb, [facility] [place] [facility] [address] [id number], [place] [address] Feb, [facility] [address] [id number] [place] [address] Feb, [facility] [place] [facility] [address] [id number] [place] [address] Feb, [facility] [address] [id number], [place] [address] Feb, [facility] [address] [id number], [place] [address] Jan, [facility] [address] [id number], [place] [address] Jan, [facility] [place] [facility] [address] [id number], [place] [address] Jan, [facility] [place] [facility] [address] [id number], [place] [address] Jan, [facility] [place] [facility] [address] [id number], [place] [address] Jan, [facility] [place] [facility] [address] [id number], [place] [address] Jan, [facility] [place] [facility] [address] [id number] [id number] Jan, [facility] [place] [facility] [address] [id number] [id number] Jan, [facility] [place] [facility] [address] [id number] [place] [address] Dec, 2012 [facility] [place] [facility] [address] [id number] [place] [address] Dec, 2012 [facility] [place] [facility] [address] [id number] [place] [address] Dec, 2012 [facility] [place] [facility] [address] [id number] [place] [address] Dec, 2012 [facility] [place] [facility] [address] [id number] [place] [address] Dec, 2012 [facility] [place] [facility] [address] [id number] [place] [address] Dec, 2012 [facility] [place] [facility] [address] [id number] [place] [address] Dec, [facility] [place] [facility] [address] [id number] [place] [address] Dec, [facility] [place] [facility] [address] [id number] [place] [address] 16 Dec, 2012 [facility] [place] [facility] [address] [id number] [place] [address] 04 Dec, 2012 [facility] [place] [facility] [address] [id number] [id number] 27 Nov, 2012 [facility] [place] [facility] [address] [id number] [id number] 27 Nov, 2012 [facility] [place] [facility] [address] [id number], [place] [address] 24 Sep, 2012 [facility] [place] [facility] [address] [id number] [place] [address] 20 Sep, 2012 [facility] [place] [facility] [address] [id number], [place] [address] 19 Sep, 2012 [facility] [place] [facility] [address] [id number], [place] [address] 13 Nov, 2012 [facility] [place] [facility] [address] [id number] [place] [address] Nov, [facility] [place] [facility] [address] [id number] [place] [address] Nov, [facility] [place] [facility] [address] [id number] [place] [address] Oct, [facility] [place] [facility] [address] [id number] [place] [address] Oct, [facility] [address] [id number] [place] [address] Oct, [facility] [place] [facility] [address] [id number] [place] [address] Sep, [facility] [address] [id number] [place] [address] Sep, [facility] [place] [facility] [address] [id number] [place] [address] Sep, [facility] [place] [facility] [address] [id number] [place] [address] Sep, [facility] [place] [facility] [address] [id number] [place] [address] Sep, [facility] [place] [facility] [address] [id number] [place] [address] Aug, [facility] [place] [facility] [address] [id number] [place] [address] Aug, [facility] [place] [facility] [address] [id number] [place] [address] Aug, [facility] [place] [facility] [address] [id number] [place] [address] Aug, [facility] [place] [facility] [address] [id number] [place] [address] Aug, [facility] [place] [facility] [address] [id number] [place] [address] Aug, [facility] [address] [id number] [place] [address] July, [facility] [address] [id number] [place] [address] July, [facility] [address] [id number] [place] [address] July, [facility] [address] [id number] [place] [address] July, [facility] [address] [id number] [place] [address] July, [facility] [address] [id number] [place] [address] July, [facility] [address] [id number] [place] [address] Jun, [facility] [address] [id number] [place] [address] Jun, [facility] [address] [id number] [place] [address] Jun, [facility] [address] [id number] [place] [address] Jun, [facility] [address] [id number] [place] [address] May, [facility] [place] [facility] [address] [id number] [place] [address] May, [facility] [place] [facility] [address] [id number] [place] [address] May, [facility] [place] [facility] [address] [id number] [place] [address] Apr, [facility] [place] [facility] [address] [id number] [place] [address] Mar, [facility] [place] [facility] [address] [id number] [place] [address] 18 Mar, 2012 [facility] [address] [id number] [place] [address] 17 Mar, 2012 [facility] [address] [id number] [place] [address] 16 Mar, 2012 [facility] [address] [id number] [place] [address] 15 Mar, 2012 [facility] [address] [id number] [place] [address] 31 Feb, 2012 [facility] [address] [id number] [place] [address] Feb, [facility] [address] [id number] [place] [address] Feb, [facility] [address] [id number] [place] [address] Feb, [facility] [address] [id number] [place] [address] Jan, [facility] [address] [id number] [place] [address] Jan, [facility] [address] [id number] [place] [address] Jan, [facility] [address] [id number] [place] [address] Jan, [facility] [address] [id number] [place] [address] Dec, [facility] [place] [facility] [address] [id number] [place] [address] Dec, [facility] [address] [id number] [place] [address] Nov, [facility] [address] [id number] [place] [address] Oct, [facility] [address] [id number] [place] [address] Oct, [facility] [address] [id number] [place] [address] Oct, [facility] [address] [id number] [place] [address] Oct, [facility] [address] [id number] [place] [address] Oct, [facility] [address] [id number] [place] [address] Sep, [facility] [address] [id number] [place] [address] Sep, [facility] [address] [id number] [place] [address] Aug, [facility] [address] [place] [id number] Aug, [facility] [address] [id number] [place] [address] Aug, [facility] [address] [id number] [place] [address] July, [facility] [address] [id number] [place] [address] July, [facility] [address] [id number] [place] [address] Jun, [facility] [address] [id number] [place] [address] Jun, [facility] [address] [id number] [place] [address] 16 Jun, 2011 [facility] [address] [id number] [place] [address] 13 Jun, 2011 [facility] [address] [id number] [place] [address] 15 Apr, 2011 [facility] [place] [facility] [address] [id number] [place] [address] Apr, [facility] [place] [facility] [address] [id number] [place] [address] Apr, [facility] [place] [facility] [address] [id number] [place] [address] Mar, [facility] [place] [facility] [address] [id number] [place] [address] Mar, [facility] [place] [facility] [address] [id number] [place] [address] Mar, [facility] [place] [facility] [address] [id number] [place] [address] Mar, [facility] [place] [facility] [address] [id number] [place] [address] Mar, [facility] [place] [facility] [address] [id number] [place] [address] Jan, [facility] [place] [facility] [address] [id number] [place] [address] Jan, [facility] [place] [facility] [address] [id number] [place] [address] Jan, [facility] [place] [facility] [address] [id number] [place] [address] Mar, [facility] [place] [facility] [address] [id number] [place] [address] Mar, [facility] [place] [facility] [address] [id number] [place] [address] Feb, [facility] [place] [facility] [address] [id number] [place] [address] Feb, [facility] [place] [facility] [address] [id number] [place] [address] Feb, [facility] [place] [facility] [id number] [address] 17 Jan, 2010 [facility] [id number] [place] [address] Jan, [facility] [id number] [place] [address] Dec, [facility] [id number] [address] Dec, [facility] [id number] [address] May, [facility] [id number] [place] [address] Apr, [facility] [id number] [address] Feb, [facility] [id number] [place] [address] Feb, [facility] [id number] [address] Jan, [facility] [id number] [address] Jan, [facility] [id number] [address] Jan, [facility] [id number] [place] [address] Jan, [facility] [id number] [address] Jan, IMMUNIZATIONS No Known Immunizations SOCIAL HISTORY Never Assessed REASON FOR VISIT Sleep study order PLAN OF CARE Activity Details Future/Pending Procedure SLEEP STUDY (HOSPITAL) VITAL SIGNS MEDICATIONS Unknown Medications RESULTS No [...]
[2018-10-04] MEDS ORDERED: morphine PF (DURAMORPH) 10 MG/10 ML AMP ONE (07:17)
[2018-10-04] MEDS ORDERED: BUPIVACAINE 0.25% 30 ML (SENSORCAINE) VIAL ONE (07:17)
--- OUTSIDE RECORDS SUMMARY | 2018-10-04 07:17 | XMS REPORT ---
Author Author KATHY ESTHER [facility] Address [address] [place] [address] Care Team Providers Care Branch Controller Name Role Phone KATHYCIARA VILLEGASHANY Unavailable PROBLEMS Type Condition ICD9-CM Code GVE89-XV Code Onset Dates Condition Status SNOMED Code Problem Primary osteoarthritis of both knees M17.0 Active 228307284 Problem Nocturnal hypoxia G47.34 Active 517098405 Problem Pure hypercholesterolemia E78.0 Active 253502903 Problem Type 2 diabetes mellitus with diabetic polyneuropathy E11.42 Active 629530524 Problem Chronic systolic (congestive) heart failure I50.22 Active 244461460 Problem Severe major depression with psychotic features F32.3 Active 18193426 Problem Chronic pain syndrome G89.4 Active 168128333 Problem Tobacco abuse Z72.0 Active 821718866 Problem History of DVT (deep vein thrombosis) Z86.718 Active 926997075 Problem Obesity, morbid, BMI 40.0-49.9 E66.01 Active 408449456 Problem BMI 45.0-49.9, adult Z68.42 Active 460008431 Problem Macrocytosis D75.89 Active 939659491 Problem Obstructive sleep apnea syndrome G47.33 Active 20628683 Problem Pure hypercholesterolemia E78.00 Active 596090901 Problem Gastroesophageal reflux disease, esophagitis presence not specified K21.9 Active 981313928 Problem Major depressive disorder, recurrent episode, unspecified severity F33.9 Active 21006823 Problem Essential hypertension I10 Active 42564596 Problem Mood disorder F39 Active 18118914 Problem Mild episode of recurrent major depressive disorder F33.0 Active 325685321 Problem Chronic systolic congestive heart failure I50.22 Active 865504816 Problem Primary insomnia F51.01 Active 2706357 Problem PTSD (post-traumatic stress disorder) F43.10 Active 32642688 Problem History of weight loss surgery Z98.84 Active 312195398 Problem Non-ischemic cardiomyopathy I42.9 Active 76335669 Problem Chronic obstructive pulmonary disease, unspecified COPD type J44.9 Active 62851499 Problem Acute right-sided low back pain with right-sided sciatica M54.41 Active 31803760 Problem Posttraumatic stress disorder F43.10 Active 36246718 Problem MITCHELL treated with BiPAP G47.33 Active 04957379 Problem Chronic prescription opiate use Z79.891 Active 691909986 ALLERGIES Substance Reaction Event Type Date Status Trintellix nausea vomiting, diarrhea Drug Allergy Jan, Active Chantix nausea Drug Allergy Jan, Active ENCOUNTERS Encounter Location Date Diagnosis [place] [id number] [address] 30 Jan, 2018 Obstructive sleep apnea syndrome G47.33 [place] [address] [address] Jan, Type 2 diabetes mellitus with diabetic polyneuropathy E11.42 ; Chronic pain syndrome G89.4 ; Gastroesophageal reflux disease, esophagitis presence not specified K21.9 ; Essential hypertension I10 ; Pure hypercholesterolemia E78.00 ; Chronic prescription opiate use Z79.891 ; Obstructive sleep apnea syndrome G47.33 and BMI 50.0-59.9, adult Z68.43 [place] [address] [address] 20 Jan, 2018 History of weight loss surgery Z98.84 [place] [address] [address] 16 Jan, 2018 [place] [address] [address] Jan, Chronic pain syndrome G89.4 [place] [address] [address] Jan, [place] [address] [address] Jan, [place] [address] [address] Dec, [place] [address] [address] Dec, Chronic pain syndrome G89.4 [place] [address] [place] [id number] [place] [address] Dec, Injury of left knee, subsequent encounter S89.92XD and Acute pain of left knee M25.562 [place] [address] [place] [id number] [place] [address] Dec, [place] [address] [address] Dec, Injury of left knee, initial encounter S89.92XA and BMI 45.0-49.9, adult Z68.42 [place] [address] [address] Nov, Chest discomfort R07.89 ; Shortness of breath R06.02 ; Chronic systolic congestive heart failure I50.22 and Type 2 diabetes mellitus with diabetic polyneuropathy E11.42 [place] [address] [place] [id number] [place] [address] Nov, Chronic pain syndrome G89.4 [place] [address] [place] [id number] [place] [address] Oct, BMI 45.0-49.9, adult Z68.42 ; Type 2 diabetes mellitus with diabetic polyneuropathy E11.42 ; Chronic pain syndrome G89.4 ; Gastroesophageal reflux disease, esophagitis presence not specified K21.9 ; Decreased pedal pulses R09.89 and Precordial pain R07.2 [place] [address] [place] [id number] [place] [address] Oct, [place] [address] [place] [id number] [place] [address] Oct, Mood disorder F39 [place] [address] [place] [id number] [place] [address] Oct, Mood disorder F39 ; Posttraumatic stress disorder F43.10 and BMI 45.0-49.9, adult Z68.42 [place] [address] [address] Sep, Primary osteoarthritis of both knees M17.0 and Chronic pain syndrome G89.4 [place] [address], [place] [address] Sep, Mood disorder F39 and Posttraumatic stress disorder F43.10 [place] [address] [place] [id number] [place] [address] Aug, Primary osteoarthritis of both knees M17.0 and Chronic pain syndrome G89.4 [place] [address] [place] [id number] [place] [address] July, Primary osteoarthritis of both knees M17.0 and Chronic pain syndrome G89.4 [place] [address] [place] [id number] [place] [address] July, Type 2 diabetes mellitus with diabetic polyneuropathy E11.42 ; Essential hypertension I10 ; Pure hypercholesterolemia E78.0 ; Chronic prescription opiate use Z79.891 ; Tobacco abuse Z72.0 ; Primary osteoarthritis of both knees M17.0 ; Primary insomnia F51.01 and BMI 45.0-49.9, adult Z68.42 [place] [address] [place] [address] July, Medicare annual wellness visit, initial Z00.00 [...] specified K21.9 and Encounter for immunization Z23 [place] [address] [address] July, Primary osteoarthritis of both knees M17.0 and Chronic pain syndrome G89.4 [facility] [address] [place] [id number] [place] [address] Jun, Infection of right ear H66.91 ; Wheezing on auscultation R06.2 and BMI 45.0-49.9, adult Z68.42 [facility] [address] [place] [id number] [place] [address] Jun, [facility] [address] [address] Jun, Primary osteoarthritis of both knees M17.0 and Chronic pain syndrome G89.4 [facility] [address] [place] [id number] [place] [address] May, [facility] [address] [place] [id number] [place] [address] May, BMI 45.0-49.9, adult Z68.42 ; Mood disorder F39 and Posttraumatic stress disorder F43.10 [facility] [address] [place] [id number] [place] [address] May, [facility] [address] [place] [id number] [place] [address] May, Primary osteoarthritis of both knees M17.0 and Chronic pain syndrome G89.4 [facility] [address] [place] [id number] [place] [address] May, Mood disorder F39 [facility] [address] [place] [id number] [place] [address] Apr, Type 2 diabetes mellitus with diabetic polyneuropathy E11.42 [facility] [address] [place] [id number] [place] [address] Apr, [facility] [address] [place] [id number] [place] [address] Apr, Primary osteoarthritis of both knees M17.0 and Chronic pain syndrome G89.4 [facility] [address] [place] [id number] [place] [address] Apr, Mood disorder F39 [facility] [address] [place] [id number] [place] [address] Mar, Mood disorder F39 and Posttraumatic stress disorder F43.10 [facility] [address] [place] [id number] [place] [address] Mar, Primary osteoarthritis of both knees M17.0 and Chronic pain syndrome G89.4 [facility] [address] [place] [id number] [place] [address] Feb, Primary osteoarthritis of both knees M17.0 and Chronic pain syndrome G89.4 [facility] [address] [address] Feb, Mood disorder F39 [facility] [address] [place] [id number] [place] [address] Jan, Type 2 diabetes mellitus with diabetic polyneuropathy E11.42 ; Primary osteoarthritis of both knees M17.0 ; Mood disorder F39 ; Obesity, morbid, BMI 40.0-49.9 E66.01 ; Chronic prescription opiate use Z79.891 ; Acute suppurative otitis media of both ears without spontaneous rupture of tympanic membranes, recurrence not specified H66.003 and BMI 45.0-49.9, adult Z68.42 [facility] [address] [place] [id number] [place] [address] Jan, Primary osteoarthritis of both knees M17.0 and Chronic pain syndrome G89.4 [facility] [address] [place] [id number] [place] [address] Dec, Mood disorder F39 and Posttraumatic stress disorder F43.10 [facility] [address] [place] [id number] [place] [address] Dec, Primary osteoarthritis of both knees M17.0 and Chronic pain syndrome G89.4 [facility] [address] [place] [id number] [place] [address] Nov, Chronic pain syndrome G89.4 [facility] [address], [place] [address] 15 Nov, 2016 Primary osteoarthritis of both knees M17.0 and Chronic pain syndrome G89.4 [facility] [address], [place] [address] 13 Nov, 2016 Type 2 diabetes mellitus with diabetic polyneuropathy E11.42 and Chronic pain syndrome G89.4 [facility] [address] [place] [id number] [place] [address] 12 Nov, 2016 Posttraumatic stress disorder F43.10 and Mood disorder F39 [facility] [address] [place] [address] Oct, Chronic pain syndrome G89.4 [facility] [address], [place] [address] 16 Oct, 2016 Type 2 diabetes mellitus with diabetic polyneuropathy E11.42 ; BMI 45.0-49.9, adult Z68.42 ; Primary osteoarthritis of both knees M17.0 and Skin lesion L98.9 [facility] [address], [place] [address] Oct, Chronic pain syndrome G89.4 [facility] [address] [place] [address] Sep, Chronic pain syndrome G89.4 [facility] [address], [place] [address] Sep, [facility] [address], [place] [address] Sep, Chronic pain syndrome G89.4 [facility] [address], [place] [address] Aug, Chronic pain syndrome G89.4 [facility] [address], [place] [address] Aug, [facility] [address] [place] [address] Aug, Macrocytosis D75.89 and Pure hypercholesterolemia E78.0 [facility] [address] [place] [address] Aug, Pure hypercholesterolemia E78.0 [facility] [address] [place] [address] Aug, Macrocytosis D75.89 [facility] [address] [place] [id number] [place] [address] Aug, Pure hypercholesterolemia E78.0 ; Type 2 diabetes mellitus with diabetic polyneuropathy E11.42 ; MITCHELL treated with BiPAP G47.33 and Chronic pain syndrome G89.4 [place] [address] [place] [id number] [place] [address] Aug, [place] [address] [place] [id number] [place] [address] Aug, Hemorrhoids, unspecified hemorrhoid type K64.9 [facility] [address] [place] [id number] [place] [address] Aug, Chronic pain syndrome G89.4 ; Type 2 diabetes mellitus with diabetic polyneuropathy E11.42 ; Hemorrhoids, unspecified hemorrhoid type K64.9 ; Tobacco abuse Z72.0 and Primary osteoarthritis of both knees M17.0 [place] [address], [place] [address] July, Chronic pain syndrome G89.4 [facility] [address] [place] [id number] [address] July, [facility] [address] [place] [address] Jun, Chronic pain syndrome G89.4 [facility] [address] [place] [address] Jun, Chronic pain syndrome G89.4 [facility] [address] [place] [id number] [place] [address] Jun, Severe major depression with psychotic features F32.3 and Posttraumatic stress disorder F43.10 [facility] [address] [place] [id number] [place] [address] Jun, Chronic pain syndrome G89.4 [facility] [address] [place] [id number] [place] [address] Jun, [facility] [address] [address] May, Chronic pain syndrome G89.4 [facility] [address] [place] [id number] [place] [address] May, Tobacco abuse Z72.0 [facility] [address] [place] [id number] [place] [address] May, [facility] [address] [place] [id number] [place] [address] Apr, Chronic pain syndrome G89.4 [facility] [address] [place] [id number] [place] [address] Apr, [facility] [address] [place] [id number] [place] [address] Apr, Right foot pain M79.671 [facility] [address] [place] [id number] [place] [address] Mar, Type 2 diabetes mellitus with diabetic polyneuropathy E11.42 ; MITCHELL treated with BiPAP G47.33 ; Pure hypercholesterolemia E78.0 ; Chronic pain syndrome G89.4 ; Tobacco abuse Z72.0 and Obesity, morbid, BMI 40.0-49.9 E66.01 [facility] [address] [place] [id number] [place] [address] Mar, [facility] [address] [place] [id number] [place] [address] Mar, [facility] [address] [place] [id number] [place] [address] Mar, [facility] [address] [facility] [id number] [address] Mar, [facility] [address] [facility] [id number] [address] Mar, [facility] [address] [place] [id number], [place] [address] Mar, Severe major depression with psychotic features F32.3 and Posttraumatic stress disorder F43.10 [facility] [address] [facility] [place] [id number] [address] Mar, [facility] [address] [place] [id number] [place] [address] Feb, [facility] [address] [place] [id number], [place] [address] Feb, [facility] [address] [place] [address] Jan, [facility] [address] [place] [id number], [place] [address] Jan, [facility] [address], [place] [address] Dec, Posttraumatic stress disorder F43.10 and Severe major depression with psychotic features F32.3 [facility] [address], [place] [address] Dec, Type 2 diabetes mellitus with diabetic polyneuropathy E11.42 ; Chronic pain syndrome G89.4 and Acute right-sided low back pain with right-sided sciatica M54.41 [facility] [address], [place] [address] Dec, [facility] [address] [place] [id number], [place] [address] Dec, [facility] [address], [place] [address] Nov, [facility] [address], [place] [address] Nov, [facility] [address] [place] [id number] [place] [address] Nov, [facility] [address] [place] [address] Oct, [facility] [address] [place] [id number] [place] [address] Oct, [facility] [address] [place] [address] Sep, Dental examination Z01.20 [facility] [address] [place] [id number] [place] [address] Sep, [facility] [address] [place] [id number] [place] [address] Sep, Type 2 diabetes mellitus with diabetic polyneuropathy E11.42 ; Chronic pain syndrome G89.4 ; Chronic prescription opiate use Z79.891 ; Injury of right index finger, sequela S69.91XS and Anejaculation N50.8 [facility] [address] [place] [id number] [place] [address] Aug, [facility] [address] [place] [id number] [place] [address] Aug, [facility] [address] [place] [address] Aug, Cellulitis of finger of right hand L03.011 [facility] [address], [place] [address] July, [facility] [address] [place] [address] July, [facility] [address], [place] [address] Jun, Onychomycosis B35.1 [facility] [address], [place] [address] Jun, Severe major depression with psychotic features F32.3 and Posttraumatic stress disorder F43.10 [facility] [address], [place] [address] Jun, [facility] [address], [place] [address] Jun, [facility] [address] [place] [id number] [place] [address] Jun, [facility] [address] [place] [address] May, Type 2 diabetes mellitus with diabetic polyneuropathy E11.42 [facility] [address] [place] [id number] [place] [address] May, Type 2 diabetes mellitus with diabetic polyneuropathy E11.42 and Urinary hesitancy R39.11 [facility] [address] [place] [id number] [place] [address] May, Type 2 diabetes mellitus with diabetic polyneuropathy E11.42 ; Left hip pain M25.552 and Benign prostatic hyperplasia with lower urinary tract symptoms, unspecified morphology N40.1 [facility] [address], [place] [address] May, [facility] [address] [place] [address] Apr, Severe major depression with psychotic features F32.3 and Posttraumatic stress disorder F43.10 [facility] [address], [place] [address] Apr, [facility] [address] [place] [address] Mar, [facility] [address], [place] [address] Mar, Dysuria R30.0 and Urinary hesitancy R39.11 [facility] [address], [place] [address] Mar, Onychomycosis B35.1 [facility] [address] [place] [address] Mar, [facility] [address], [place] [address] Feb, [facility] [address] [place] [id number] [place] [address] Jan, [facility] [address] [place] [id number] [place] [address] Jan, Posttraumatic stress disorder F43.10 and Severe major depression with psychotic features F32.3 [facility] [address] [place] [address] Jan, [facility] [address] [place] [id number] [place] [address] Jan, Chronic pain syndrome G89.4 ; Type 2 diabetes mellitus with diabetic polyneuropathy E11.42 ; Decreased pedal pulses R09.89 and Paresthesia of both hands R20.2 [facility] [address] [place] [address] Dec, Posttraumatic stress disorder F43.10 and Severe major depression with psychotic features F32.3 [facility] [address], [place] [address] Dec, [facility] [address], [place] [address] Dec, [facility] [address] [place] [address] Dec, Onychomycosis B35.1 [facility] [address], [place] [address] Dec, [facility] [id number] [place] [address] Dec, [facility] [id number] [place] [address] Nov, [facility] [address] [id number] [place] [phone] Oct, Depression, major, recurrent, moderate 296.32 and Posttraumatic stress disorder 309.[address] [id number] Oct, [facility] [id number] [place] [id number] Oct, [place] [id number] [place] [phone] Oct, [place] [id number] [place] [phone] Sep, Posttraumatic stress disorder 309.81 and Depression, major, recurrent, moderate 296.[address] [place] [id number] [place] [id number] Sep, [place] [id number] [place] [id number] Sep, Chronic airway obstruction, not elsewhere classified [id number] [place] [phone] Sep, Onychomycosis 110.1 and DM neuro manif type II 250.60 [id number] [place] [address] Sep, Chronic pain 338.29 ; Chronic airway obstruction, not elsewhere classified 496 ; Osteoarthritis of knees, bilateral 715.96 and On potassium wasting diuretic therapy V58.69 [address] [address] [id number] [place] [address] Sep, Insect bites 919.4 ; Sinusitis 473.9 and GERD (gastroesophageal reflux disease) 530.81 [place] [id number] [place] [address] Aug, Depression, major, recurrent, moderate 296.32 and Posttraumatic stress disorder 309.81 [facility] [address] [facility] [id number] [address] Aug, [facility] [address] [facility] [place] [id number], [place] [address] Aug, [facility] [id number], [place] [address] Aug, [facility] [address] [id number], [place] [address] July, Major depressive disorder, recurrent episode, moderate 296.32 and Posttraumatic stress disorder 309.81 [facility] [id number], [place] [address] July, [facility] [id number], [place] [address] July, [facility] [id number], [place] [address] July, [facility] [id number], [place] [address] July, [facility] [id number], [place] [address] Jun, [facility] [id number], [place] [address] Jun, [facility] [id number], [place] [address] May, [facility] [id number], [place] [address] May, [facility] [id number], [place] [address] May, [facility] [address] [id number], [place] [address] May, [facility] [id number] [place] [address] May, [facility] [place] [facility] [address] [id number] [place] [address] May, [facility] [place] [facility] [address] [id number] [place] [address] May, 2014 [facility] [place] [facility] [address] [id number] [place] [address] May, [facility] [place] [facility] [address] [id number] [place] [address] May, [facility] [place] [facility] [address] [id number] [place] [address] Apr, 2014 [facility] [place] [facility] [address] [facility] [place] [id number] [place] [address] Apr, 2014 [facility] [place] [facility] [address] [facility] [place] [id number] [place] [address] Apr, 2014 [facility] [place] [facility] [address] [facility] [place] [id number] [place] [address] Apr, 2014 [facility] [place] [facility] [address] [facility] [place] [id number] [place] [address] Apr, [facility] [place] [facility] [address] [facility] [place] [id number] [place] [address] Apr, 2014 [facility] [place] [facility] [address] [facility] [place] [id number] [place] [address] Apr, 2014 [facility] [place] [facility] [address] [facility] [place] [id number] [place] [address] Apr, [facility] [place] [facility] [address] [facility] [place] [id number] [place] [address] Apr, 2014 [facility] [place] [facility] [address] [facility] [place] [id number] [place] [address] Mar, [facility] [place] [facility] [address] [facility] [place] [id number] [place] [address] 30 Mar, 2014 [facility] [place] [facility] [address] [id number] [place] [address] Mar, [facility] [place] [facility] [address] [id number] [place] [address] Mar, [facility] [place] [facility] [address] [id number] [place] [address] 15 Mar, 2014 [facility] [place] [facility] [address] [id number] [place] [address] 15 Mar, 2014 [facility] [place] [facility] [address] [id number] [place] [address] 15 Mar, 2014 [facility] [place] [facility] [address] [id number] [place] [address] 15 Mar, 2014 [facility] [place] [facility] [address] [id number] [place] [address] Mar, [facility] [place] [facility] [address] [id number] [place] [address] 15 Mar, 2014 [facility] [place] [facility] [address] [id number] [place] [address] 14 Mar, 2014 [facility] [place] [facility] [address] [id number] [place] [address] Mar, [facility] [place] [facility] [address] [id number], [place] [address] 14 Mar, 2014 [facility] [place] [facility] [address] [id number], [place] [address] 14 Mar, 2014 [facility] [place] [facility] [address] [id number] [place] [address] Mar, [facility] [place] [facility] [address] [id number] [place] [address] 14 Mar, 2014 [facility] [place] [facility] [address] [id number] [place] [address] 09 Mar, 2014 [facility] [place] [facility] [address] [id number] [place] [address] 09 Mar, 2014 [facility] [address] [id number] [place] [address] 16 Feb, 2014 [facility] [place] [facility] [address] [id number] [place] [address] 16 Feb, 2014 [facility] [address] [id number] [place] [address] 15 Feb, 2014 [facility] [place] [facility] [address] [id number] [place] [address] 15 Feb, 2014 [facility] [place] [facility] [address] [id number] [place] [address] Feb, [facility] [place] [facility] [address] [id number] [place] [address] Feb, [facility] [place] [facility] [address] [id number] [place] [address] Jan, [facility] [place] [facility] [address] [id number] [place] [address] Jan, [facility] [place] [facility] [address] [id number] [place] [address] Jan, [facility] [place] [facility] [address] [id number] [place] [address] Jan, [facility] [place] [facility] [address] [id number] [place] [address] Jan, [facility] [place] [facility] [address] [id number] [place] [address] Jan, [facility] [place] [facility] [address] [id number] [place] [address] Jan, [facility] [place] [facility] [address] [id number] [place] [address] Jan, [facility] [place] [facility] [address] [id number] [place] [address] Jan, [facility] [place] [facility] [address] [id number] [place] [address] Jan, [facility] [place] [facility] [address] [id number] [place] [address] Dec, [facility] [place] [facility] [address] [id number] [place] [address] Dec, [facility] [place] [facility] [address] [id number] [place] [address] Dec, [facility] [place] [facility] [address] [id number] [place] [address] Dec, [facility] [place] [facility] [address] [id number] [place] [address] 16 Nov, 2013 [facility] [place] [facility] [address] [id number] [place] [address] Nov, 2013 [facility] [place] [facility] [address] [id number] [place] [address] Nov, [facility] [place] [facility] [address] [id number] [place] [address] Nov, [facility] [place] [facility] [address] [id number] [place] [address] Nov, [facility] [place] [facility] [address] [id number] [place] [address] Nov, [facility] [place] [facility] [address] [id number], [place] [address] Oct, [facility] [place] [facility] [address] [id number] [place] [address] Oct, [facility] [place] [facility] [address] [id number] [place] [address] Oct, [facility] [place] [facility] [address] [id number], [place] [address] Oct, [facility] [place] [facility] [address] [id number], [place] [address] Sep, [facility] [place] [facility] [address] [id number] [place] [address] Sep, [facility] [place] [facility] [address] [id number] [place] [address] Sep, [facility] [place] [facility] [address] [id number] [place] [address] Sep, [facility] [place] [facility] [address] [id number] [place] [address] Sep, [facility] [place] [facility] [address] [id number] [place] [address] Sep, [facility] [place] [facility] [address] [id number] [place] [address] July, [facility] [place] [facility] [address] [id number] [place] [address] July, [facility] [place] [facility] [address] [id number] [place] [address] July, [facility] [place] [facility] [address] [id number] [place] [address] July, [facility] [place] [facility] [address] [id number] [place] [address] Jun, [facility] [place] [facility] [address] [id number] [place] [address] Jun, [facility] [place] [facility] [address] [id number] [place] [address] Jun, [facility] [place] [facility] [address] [id number] [place] [address] Jun, [facility] [place] [facility] [address] [id number] [place] [address] Jun, [facility] [place] [facility] [address] [id number] [place] [address] Jun, [facility] [place] [facility] [address] [id number] [place] [address] May, [facility] [place] [facility] [address] [id number] [place] [address] May, [facility] [place] [facility] [address] [id number] [place] [address] Apr, [facility] [place] [facility] [address] [id number] [place] [address] Apr, [facility] [place] [facility] [address] [id number] [place] [address] Apr, [facility] [place] [facility] [address] [id number] [place] [address] Apr, [facility] [place] [facility] [address] [facility] [place] [id number] [place] [address] Apr, [facility] [place] [facility] [address] [id number] [place] [address] Apr, [facility] [place] [facility] [address] [id number] [place] [address] Apr, [facility] [place] [facility] [address] [facility] [place] [place] [id number] [place] [address] Mar, [facility] [place] [facility] [address] [facility] [place] [id number] [place] [address] Mar, [facility] [place] [facility] [address] [id number], [place] [address] Mar, [facility] [place] [facility] [address] [id number] [place] [address] Mar, [facility] [place] [facility] [address] [id number] [place] [address] Mar, [facility] [place] [facility] [address] [id number] [place] [address] Mar, [facility] [place] [facility] [address] [id number], [place] [address] Mar, [facility] [address] [id number], [place] [address] Mar, [facility] [address] [id number], [place] [address] Feb, [facility] [address] [id number] [place] [address] Feb, [facility] [place] [facility] [address] [id number], [place] [address] Feb, [facility] [address] [id number] [place] [address] Feb, [facility] [address] [id number] [place] [address] Feb, [facility] [address] [id number], [place] [address] Feb, [facility] [address] [id number], [place] [address] Feb, [facility] [address] [id number], [place] [address] Jan, [facility] [address] [id number], [place] [address] Jan, [facility] [address] [id number], [place] [address] Jan, [facility] [place] [facility] [address] [id number], [place] [address] Jan, [facility] [place] [facility] [address] [id number], [place] [address] Jan, [facility] [place] [facility] [address] [id number], [place] [address] Jan, [facility] [address] [id number] [id number] Jan, [facility] [address] [id number] [place] [id number] 04 Jan, 2013 [facility] [address] [id number] [place] [address] Dec, 2012 [facility] [place] [facility] [address] [id number] [place] [address] Dec, 2012 [facility] [address] [id number] [place] [address] Dec, 2012 [facility] [place] [facility] [address] [id number] [place] [address] Dec, 2012 [facility] [place] [facility] [address] [id number] [place] [address] Dec, [facility] [place] [facility] [address] [id number] [place] [address] Dec, [facility] [place] [facility] [address] [id number] [place] [address] Dec, [facility] [address] [id number], [place] [address] Dec, [facility] [place] [facility] [address] [id number] [place] [address] Dec, [facility] [place] [facility] [address] [id number], [place] [address] Dec, [facility] [place] [facility] [address] [id number] [place] [id number] 27 Nov, 2012 [facility] [place] [facility] [address] [id number][place] [id number] 27 Nov, 2012 [facility] [place] [facility] [address] [id number] [place] [address] 24 Nov, 2012 [facility] [place] [facility] [address] [id number] [place] [address] 20 Nov, 2012 [facility] [place] [facility] [address] [id number], [place] [address] 19 Nov2012 [facility] [place] [facility] [address] [id number] [place] [address] Nov, [facility] [place] [facility] [address] [id number] [place] [address] Nov, [facility] [place] [facility] [address] [id number] [place] [address] Nov, [facility] [place] [facility] [address] [id number] [place] [address] Oct, [facility] [place] [facility] [address] [id number] [place] [address] Oct, [facility] [place] [facility] [address] [id number] [place] [address] Oct, [facility] [place] [facility] [address] [id number] [place] [address] Sep, [facility] [place] [facility] [address] [id number] [place] [address] Sep, [facility] [place] [facility] [address] [id number] [place] [address] Sep, [facility] [place] [facility] [address] [id number] [place] [address] Sep, [facility] [place] [facility] [address] [id number] [place] [address] Sep, [facility] [place] [facility] [address] [id number] [place] [address] Aug, [facility] [place] [facility] [address] [id number] [place] [address] Aug, [facility] [place] [facility] [address] [id number] [place] [address] Aug, [facility] [place] [facility] [address] [id number] [place] [address] Aug, [facility] [place] [facility] [address] [id number] [place] [address] Aug, [facility] [address] [id number] [place] [address] Aug, [facility] [address] [id number] [place] [address] July, [facility] [address] [id number] [place] [address] July, [facility] [address] [id number] [place] [address] July, [facility] [address] [id number] [place] [address] July, [facility] [address] [id number] [place] [address] July, [facility] [address] [id number] [place] [address] July, [facility] [address] [id number] [place] [address] Jun, [facility] [address] [id number] [place] [address] Jun, [facility] [place] [facility] [address] [id number] [place] [address] Jun, [facility] [address] [id number], [place] [address] Jun, [facility] [place] [facility] [address] [id number], [place] [address] May, [facility] [place] [facility] [address] [id number] [place] [address] May, [facility] [place] [facility] [address] [id number] [place] [address] May, [facility] [place] [facility] [address] [id number] [place] [address] Apr, [facility] [place] [facility] [address] [id number] [place] [address] 21 Mar, 2012 [facility] [address] [id number] [place] [address] 18 Mar, 2012 [facility] [address] [id number] [place] [address] 17 Mar, 2012 [facility] [address] [id number] [place] [address] 16 Mar, 2012 [facility] [address] [id number] [place] [address] 15 Mar, 2012 [facility] [address] [id number] [place] [address], [place] [address] 31 Feb, 2012 [facility] [address] [id number] [place] [address] Feb, [facility] [address] [facility] [place] [id number] [place] [address] Feb, [facility] [address] [id number] [place] [address] 17 Feb, 2012 [facility] [address] [facility] [place] [id number] [place] [address] Jan, [facility] [address] [facility] [place] [id number] [place] [address] Jan, [facility] [address] [id number] [place] [address] Jan, [facility] [address] [id number], [place] [address] Jan, [facility] [address] [id number] [place] [address] 19 Dec, 2011 [facility] [address] [id number] [place] [address] 19 Dec, 2011 [facility] [address] [id number] [place] [address] Nov, [facility] [address] [id number] [place] [address] Oct, [facility] [address] [id number] [place] [address] Oct, [facility] [address] [id number] [place] [address] Oct, [facility] [address] [id number] [place] [address] Oct, [facility] [address] [id number] [place] [address] Oct, [facility] [address] [id number] [place] [address] Sep, [facility] [address] [id number] [place] [address] Sep, [facility] [address] [id number] [place] [address] Aug, [facility] [address] [place] [id number] Aug, [facility] [address] [id number] [place] [address] Aug, [facility] [address] [id number] [place] [address] July, [facility] [address] [id number] [place] [address] July, [facility] [address] [id number] [place] [address] Jun, [facility] [address] [id number] [place] [address] Jun, [facility] [address] [id number] [place] [address] 16 Jun, 2011 [facility] [address] [id number] [place] [address] Jun, [facility] [address] [id number] [place] [address] 15 Apr, 2011 [facility] [place] [facility] [address] [id number] [place] [address] 15 Apr, 2011 [facility] [place] [facility] [address] [id number] [place] [address] Apr, [facility] [place] [facility] [address] [id number] [place] [address] Mar, [facility] [place] [facility] [address] [id number] [place] [address] Mar, [facility] [place] [facility] [address] [id number] [place] [address] Mar, [facility] [place] [facility] [address] [id number] [place] [address] Mar, [facility] [place] [facility] [address] [id number] [place] [address] Mar, [facility] [place] [facility] [address] [id number] [place] [address] Jan, [facility] [place] [facility] [address] [id number] [place] [address] Jan, [facility] [place] [facility] [address] [id number] [place] [address] Jan, [facility] [place] [facility] [address] [id number], [place] [address] Mar, [facility] [place] [facility] [address] [id number] [place] [address] Mar, [facility] [place] [facility] [address] [id number] [place] [address] Feb, [facility] [place] [facility] [address] [id number] [place] [address] Feb, [facility] [place] [facility] [id number], [place] [address] 16 Feb, 2010 [facility] [id number] [place] [address] Jan, [facility] [id number], [place] [address] Jan, [facility] [id number] [place] [address] Dec, [facility] [id number] [place] [address] Dec, [facility] [id number] [place] [address] May, [facility] [id number] [place] [address] Apr, [facility] [id number] [place] [address] Feb, [facility] [id number], [place] [address] Feb, [facility] [id number] [place] [address] Jan, [facility] [id number], [place] [address] Jan, [facility] [id number], [place] [address] Jan, [facility] [id number], [place] [address] Jan, [facility] [id number] [place] [address] Jan, IMMUNIZATIONS No Known Immunizations SOCIAL HISTORY Never Assessed REASON FOR VISIT pain managment--tcuppettRFred, Pt is having issues with snoring , Stopped taking vi ctoza a few months ago due to forgetting to take it PLAN OF CARE Activity Details Follow Up 3 Months Reason:DMII VITAL SIGNS Height 66 in 2018-02-06 Weight 318.9 lbs 2018-02-06 Temperature 98. degrees Fahrenheit 2018-02-06 Heart Rate 92 bpm 2018-02-06 Respiratory Rate 20 2018-02-06 BMI 51.47 kg/m2 2018-02-06 Blood pressure systolic 144 mmHg 2018-02-06 Blood pressure diastolic 96 mmHg 2018-02-06 MEDICATIONS Medication Instructions Dosage Frequency Start Date End Date Duration Status Atorvastatin Calcium 40 mg Orally Once a day 1 tablet 24h Active Pataday 0.2 % Ophthalmic 2 times a day 1 drop to affected eyes 12h Mar, Active [place] 31G X 6 MM as directed 24h May, Not-Taking Ventolin HFA 108 (90 Base) MCG/ACT Inhalation every 4 hrs 2 puffs as needed 4h Mar, Active Gabapentin 600 MG Orally 3 times a day 2 tablets 8h 90 days Active HydrOXYzine Pamoate 50 MG TAKE ONE TO TWO CAPSULES BY MOUTH THREE TIMES DAILY NEEDED FOR ANXIETY AND SLEEP 15 Active Pantoprazole Sodium 40 MG TAKE ONE TABLET BY MOUTH ONCE DAILY Active Victoza 18 MG/3ML Subcutaneous Once a day 1.2 mg 24h Aug, 30 days Active Insulin Syringe 31G X 5/16 subcutaneously Once a day as directed 24h Aug, Not-Taking Clickfine [place] 31 gauge ONE - DAILY E11.42 100 Not-Taking Trazodone HCl 150 MG Orally Once a day 1 tablet at bedtime 24h 90 Active Aspirin 81 MG Orally Once a day 1 tablet 24h 30 day(s) Active Lexapro 10 MG Orally Once a day 0.5 tablet daily for one week then take full tab daily 24h 30 Active Carafate 1 GM Orally 4 times a day 1 tablet 6h Jan, 30 day(s) Active Lisinopril 10 mg Orally Once a day 1 tablet 24h Jan, 30 day(s) Active Invega 6 MG Orally Once a day 2 tablets 24h 30 Active Ibuprofen 800 MG Orally every 8 hours, PRN TAKE ONE TABLET BY MOUTH THREE TIMES DAILY NEEDED Mar, 90 days Active MS Contin 30 MG Orally every 12 hrs 1 tablet 12h Jan, Active Cyclobenzaprine HCl 10 MG TAKE ONE TABLET BY MOUTH THREE TIMES DAILY NEEDED 10 Active Metformin HCl 500 MG TAKE ONE TABLET BY MOUTH TWICE DAILY WITH MEALS 90 Active Hydrocodone-Acetaminophen 5-325 MG Orally every 6 hrs 1 tablet as needed 6h Jan, Active RESULTS No Results PROCEDURES Procedure Date Ordered Result Body Site GLYCATED HEMOGLOBIN TEST Feb 06, 2018 [facility] Feb 06, 2018 [facility] VISIT ESTABLISHED PATIENT Feb 06, 2018 INSTRUCTIONS MEDICATIONS ADMINISTERED No Known Medications [...]
--- OUTSIDE RECORDS SUMMARY | 2018-10-04 07:18 | XMS REPORT ---
Author Author ESTHER CHAVEZ [facility] Address [address] [place] [address] Care Team Providers Care Certified Medical Transcriptionist Name Role Phone KATHYCIARAESTHER Unavailable PROBLEMS Type Condition ICD9-CM Code PCY26-VF Code Onset Dates Condition Status SNOMED Code Problem Primary osteoarthritis of both knees M17.0 Active 159841741 Problem Nocturnal hypoxia G47.34 Active 265958755 Problem Pure hypercholesterolemia E78.0 Active 286047715 Problem Acute right-sided low back pain with right-sided sciatica M54.41 Active 24323417 Problem Type 2 diabetes mellitus with diabetic polyneuropathy E11.42 Active 493697245 Problem Posttraumatic stress disorder F43.10 Active 75946660 Problem Chronic systolic (congestive) heart failure I50.22 Active 086092073 Problem Severe major depression with psychotic features F32.3 Active 18038783 Problem Obesity, morbid, BMI 40.0-49.9 E66.01 Active 522473525 Problem Tobacco abuse Z72.0 Active 996621357 Problem Chronic systolic congestive heart failure I50.22 Active 522043676 Problem Primary insomnia F51.01 Active 7275217 Problem Essential hypertension I10 Active 00670230 Problem History of DVT (deep vein thrombosis) Z86.718 Active 972437174 Problem Chronic pain syndrome G89.4 Active 130185703 Problem BMI 45.0-49.9, adult Z68.42 Active 486578384 Problem Macrocytosis D75.89 Active 166756473 Problem Mood disorder F39 Active 80900078 Problem Mild episode of recurrent major depressive disorder F33.0 Active 876427716 Problem Non-ischemic cardiomyopathy I42.9 Active 48593641 Problem Chronic obstructive pulmonary disease, unspecified COPD type J44.9 Active 29765611 Problem Major depressive disorder, recurrent episode, unspecified severity F33.9 Active 27421632 Problem Gastroesophageal reflux disease, esophagitis presence not specified K21.9 Active 368620025 Problem MITCHELL treated with BiPAP G47.33 Active 35040182 Problem Chronic prescription opiate use Z79.891 Active 033880212 Problem PTSD (post-traumatic stress disorder) F43.10 Active 48674387 Problem History of weight loss surgery Z98.84 Active 778278284 ALLERGIES No Information ENCOUNTERS Encounter Location Date Diagnosis [facility], [place] [id number] [place] [address] Jan, [facility], [place] [address] [address] Jan, History of weight loss surgery Z98.84 [facility], [place] [address] [address] Jan, [place] [address] [address] Jan, Chronic pain syndrome G89.4 [place] [address] [address] Jan, [facility], [place] [address] [address] Jan, [facility], [place] [address] [address] Dec, [place] [address] [address] Dec, Chronic pain syndrome G89.4 [facility], [place] [address] [address] Dec, Injury of left knee, subsequent encounter S89.92XD and Acute pain of left knee M25.562 [place] [address] [address] Dec, [place] [address] [address] Dec, Injury of left knee, initial encounter S89.92XA and BMI 45.0-49.9, adult Z68.42 [place] [address] [place] [address] Nov, Chest discomfort R07.89 ; Shortness of breath R06.02 ; Chronic systolic congestive heart failure I50.22 and Type 2 diabetes mellitus with diabetic polyneuropathy E11.42 [facility], [place] [id number] [place] [address] 20 Nov, 2017 Chronic pain syndrome G89.4 [facility], [place] [id number] [place] [address] Oct, BMI 45.0-49.9, adult Z68.42 ; Type 2 diabetes mellitus with diabetic polyneuropathy E11.42 ; Chronic pain syndrome G89.4 ; Gastroesophageal reflux disease, esophagitis presence not specified K21.9 ; Decreased pedal pulses R09.89 and Precordial pain R07.2 [facility], [place] [id number] [place] [address] Oct, [facility], [place] [id number] [place] [address] Oct, Mood disorder F39 [facility], [place] [id number] [place] [address] Oct, Mood disorder F39 ; Posttraumatic stress disorder F43.10 and BMI 45.0-49.9, adult Z68.42 [facility], [place] [id number] [address] Sep, Primary osteoarthritis of both knees M17.0 and Chronic pain syndrome G89.4 [facility], [place] [id number] [place] [address] Sep, Mood disorder F39 and Posttraumatic stress disorder F43.10 [facility], [place] [id number] [place] [address] Aug, Primary osteoarthritis of both knees M17.0 and Chronic pain syndrome G89.4 [facility], [place] [id number] [place] [address] July, Primary osteoarthritis of both knees M17.0 and Chronic pain syndrome G89.4 [facility], [place] [address] [address] July, Type 2 diabetes mellitus with diabetic polyneuropathy E11.42 ; Essential hypertension I10 ; Pure hypercholesterolemia E78.0 ; Chronic prescription opiate use Z79.891 ; Tobacco abuse Z72.0 ; Primary osteoarthritis of both knees M17.0 ; Primary insomnia F51.01 and BMI 45.0-49.9, adult Z68.42 [facility], [place] [id number] [place] [address] 08 Jul, 2017 Medicare annual wellness visit, [...] and Encounter for immunization Z23 [place] [id number] [place] [address] July, Primary osteoarthritis of both knees M17.0 and Chronic pain syndrome G89.4 [facility] [address] [address] Jun, Infection of right ear H66.91 ; Wheezing on auscultation R06.2 and BMI 45.0-49.9, adult Z68.42 [facility], [place] [address] [address] Jun, [facility], [place] [id number] [place] [address] Jun, Primary osteoarthritis of both knees M17.0 and Chronic pain syndrome G89.4 [facility], [place] [id number] [place] [address] May, [facility], [place] [address] [address] May, BMI 45.0-49.9, adult Z68.42 ; Mood disorder F39 and Posttraumatic stress disorder F43.10 [facility], [place] [address] [address] May, [facility], [place] [id number] [place] [address] May, Primary osteoarthritis of both knees M17.0 and Chronic pain syndrome G89.4 [facility], [place] [address] [place] [address] May, Mood disorder F39 [facility], [place] [id number] [place] [address] Apr, Type 2 diabetes mellitus with diabetic polyneuropathy E11.42 [facility], [place] [id number] [place] [address] Apr, [facility], [place] [address] [place] [address] Apr, Primary osteoarthritis of both knees M17.0 and Chronic pain syndrome G89.4 [facility], [place] [address] [address] Apr, Mood disorder F39 [facility], [place] [address] [address] Mar, Mood disorder F39 and Posttraumatic stress disorder F43.10 [facility], [place] [address] [address] Mar, Primary osteoarthritis of both knees M17.0 and Chronic pain syndrome G89.4 [facility], [place] [address] [address] Feb, Primary osteoarthritis of both knees M17.0 and Chronic pain syndrome G89.4 [facility], [place] [address] [place] [address] Feb, Mood disorder F39 [facility], [place] [id number] [place] [address] Jan, Type 2 diabetes mellitus with diabetic polyneuropathy E11.42 ; Primary osteoarthritis of both knees M17.0 ; Mood disorder F39 ; Obesity, morbid, BMI 40.0-49.9 E66.01 ; Chronic prescription opiate use Z79.891 ; Acute suppurative otitis media of both ears without spontaneous rupture of tympanic membranes, recurrence not specified H66.003 and BMI 45.0-49.9, adult Z68.42 [facility], [place] [id number] [place] [address] Jan, Primary osteoarthritis of both knees M17.0 and Chronic pain syndrome G89.4 [facility], [place] [id number] [place] [address] Dec, Mood disorder F39 and Posttraumatic stress disorder F43.10 [facility], [place] [id number] [place] [address] Dec, Primary osteoarthritis of both knees M17.0 and Chronic pain syndrome G89.4 [facility], [place] [id number] [place] [address] 18 Nov, 2016 Chronic pain syndrome G89.4 [facility] [place] [id number] [place] [address] 15 Nov, 2016 Primary osteoarthritis of both knees M17.0 and Chronic pain syndrome G89.4 [facility], [place] [id number] [place] [address] 13 Nov, 2016 Type 2 diabetes mellitus with diabetic polyneuropathy E11.42 and Chronic pain syndrome G89.4 [facility], [place] [id number] [place] [address] 12 Nov, 2016 Posttraumatic stress disorder F43.10 and Mood disorder F39 [facility], [place] [id number] [place] [address] Oct, Chronic pain syndrome G89.4 [facility], [place] [address] [address] Oct, Type 2 diabetes mellitus with diabetic polyneuropathy E11.42 ; BMI 45.0-49.9, adult Z68.42 ; Primary osteoarthritis of both knees M17.0 and Skin lesion L98.9 [facility], [place] [address] [place] [address] Oct, Chronic pain syndrome G89.4 [facility], [place] [id number] [place] [address] Sep, Chronic pain syndrome G89.4 [facility], [place] [id number] [place] [address] Sep, [facility], [place] [id number] [place] [address] Sep, Chronic pain syndrome G89.4 [facility], [place] [id number] [place] [address] Aug, Chronic pain syndrome G89.4 [facility], [place] [id number] [place] [address] Aug, [facility], [place] [address] [place] [address] Aug, Macrocytosis D75.89 and Pure hypercholesterolemia E78.0 [facility], [place] [address] [place] [address] Aug, Pure hypercholesterolemia E78.0 [facility], [place] [address] [place] [address] Aug, Macrocytosis D75.89 [facility], [place] [address] [place] [address] Aug, Pure hypercholesterolemia E78.0 ; Type 2 diabetes mellitus with diabetic polyneuropathy E11.42 ; MITCHELL treated with BiPAP G47.33 and Chronic pain syndrome G89.4 [facility], [place] [id number] [address] Aug, [facility], [place] [id number] [place] [address] Aug, Hemorrhoids, unspecified hemorrhoid type K64.9 [facility], [place] [address] [address] Aug, Chronic pain syndrome G89.4 ; Type 2 diabetes mellitus with diabetic polyneuropathy E11.42 ; Hemorrhoids, unspecified hemorrhoid type K64.9 ; Tobacco abuse Z72.0 and Primary osteoarthritis of both knees M17.0 [facility] [place] [id number] [place] [address] July, Chronic pain syndrome G89.4 [place] [id number] [place] [address] July, [facility] [place] [id number] [place] [address] Jun, Chronic pain syndrome G89.4 [facility], [place] [address] [address] Jun, Chronic pain syndrome G89.4 [facility], [place] [address] [place] [address] Jun, Severe major depression with psychotic features F32.3 and Posttraumatic stress disorder F43.10 [facility], [place] [address] [address] Jun, Chronic pain syndrome G89.4 [facility], [place] [address] [address] Jun, [facility], [place] [id number] [place] [address] May, Chronic pain syndrome G89.4 [facility], [place] [address] [address] May, Tobacco abuse Z72.0 [facility], [place] [id number] [address] May, [facility], [place] [id number] [place] [address] Apr, Chronic pain syndrome G89.4 [facility], [place] [id number] [place] [address] Apr, [facility], [place] [id number] [place] [address] Apr, Right foot pain M79.671 [facility], [place] [id number] [place] [address] Mar, Type 2 diabetes mellitus with diabetic polyneuropathy E11.42 ; MITCHELL treated with BiPAP G47.33 ; Pure hypercholesterolemia E78.0 ; Chronic pain syndrome G89.4 ; Tobacco abuse Z72.0 and Obesity, morbid, BMI 40.0-49.9 E66.01 [facility], [place] [id number] [place] [address] Mar, [facility], [place] [id number] [place] [address] Mar, [facility], [place] [id number] [place] [address] Mar, [facility], [place] [id number] [place] [address] Mar, [facility], [place] [id number] [place] [address] Mar, [facility], [place] [address] [place] [address] Mar, Severe major depression with psychotic features F32.3 and Posttraumatic stress disorder F43.10 [facility], [place] [address] [place] [address] Mar, [facility], [place] [id number] [place] [address] Feb, [facility], [place] [address] [place] [address] Feb, [facility], [place] [id number] [place] [address] Jan, [facility], [place] [id number] [place] [address] Jan, [facility], [place] [id number] [place] [address] Dec, Posttraumatic stress disorder F43.10 and Severe major depression with psychotic features F32.3 [facility], [place] [id number] [place] [address] Dec, Type 2 diabetes mellitus with diabetic polyneuropathy E11.42 ; Chronic pain syndrome G89.4 and Acute right-sided low back pain with right-sided sciatica M54.41 [facility] [place] [id number] [place] [address] Dec, [facility] [place] [id number] [place] [address] Dec, [facility] [place] [id number] [place] [address] Nov, [facility] [place] [id number] [place] [address] Nov, [facility] [place] [id number] [place] [address] Nov, [facility], [place] [id number] [place] [address] Oct, [facility], [place] [id number] [place] [address] Oct, [facility], [place] [id number] [place] [address] Sep, Dental examination Z01.20 [facility], [place] [id number] [place] [address] Sep, [facility] [place] [id number] [place] [address] Sep, Type 2 diabetes mellitus with diabetic polyneuropathy E11.42 ; Chronic pain syndrome G89.4 ; Chronic prescription opiate use Z79.891 ; Injury of right index finger, sequela S69.91XS and Anejaculation N50.8 [facility] [place] [id number] [place] [address] Aug, [facility], [place] [id number] [place] [address] Aug, [facility] [id number] [place] [address] Aug, Cellulitis of finger of right hand L03.011 [facility] [place] [id number] [place] [address] July, [facility] [place] [id number] [place] [address] July, [facility] [place] [id number] [place] [address] Jun, Onychomycosis B35.1 [facility] [place] [id number] [place] [address] Jun, Severe major depression with psychotic features F32.3 and Posttraumatic stress disorder F43.10 [facility] [place] [id number] [place] [address] Jun, [facility] [place] [id number] [place] [address] Jun, [facility] [place] [id number] [place] [address] Jun, [facility] [place] [id number] [place] [address] May, Type 2 diabetes mellitus with diabetic polyneuropathy E11.42 [facility] [place] [address] [address] May, Type 2 diabetes mellitus with diabetic polyneuropathy E11.42 and Urinary hesitancy R39.11 [facility], [place] [address] [address] May, Type 2 diabetes mellitus with diabetic polyneuropathy E11.42 ; Left hip pain M25.552 and Benign prostatic hyperplasia with lower urinary tract symptoms, unspecified morphology N40.1 [place] [id number] [place] [address] May, [facility] [place] [id number] [place] [address] Apr, Severe major depression with psychotic features F32.3 and Posttraumatic stress disorder F43.10 [place] [id number] [place] [address] Apr, [facility] [place] [id number] [place] [address] Mar, [place] [id number] [place] [address] Mar, Dysuria R30.0 and Urinary hesitancy R39.11 [facility] [place] [id number] [place] [address] Mar, Onychomycosis B35.1 [facility] [place] [id number] [place] [address] Mar, [facility] [place] [id number] [place] [address] Feb, [facility] [place] [id number] [place] [address] Jan, [facility] [place] [id number] [place] [address] Jan, Posttraumatic stress disorder F43.10 and Severe major depression with psychotic features F32.3 [facility] [place] [id number] [place] [address] Jan, [facility] [place] [id number] [place] [address] Jan, Chronic pain syndrome G89.4 ; Type 2 diabetes mellitus with diabetic polyneuropathy E11.42 ; Decreased pedal pulses R09.89 and Paresthesia of both hands R20.2 [facility] [place] [id number] [place] [address] Dec, Posttraumatic stress disorder F43.10 and Severe major depression with psychotic features F32.3 [facility] [place] [id number] [place] [phone] Dec, [facility], [place] [id number] [place] [phone] Dec, [facility], [place] [id number] [place] [phone] Dec, Onychomycosis B35.1 [facility], [place] [id number] [place] [phone] Dec, [facility], [place] [id number] [place] [phone] Dec, [facility], [place] [id number] [place] [phone] Nov, [facility], [place] [id number] [place] [phone] Oct, Depression, major, recurrent, moderate 296.32 and Posttraumatic stress disorder 309.81 [facility], [place] [id number] [place] [phone] Oct, [facility], [place] [id number] [place] [phone] Oct, [facility], [place] [id number] [place] [phone] Oct, [address] [id number] [place] [phone] Sep, Posttraumatic stress disorder 309.81 and Depression, major, recurrent, moderate 296.32 [place] [id number] [place] [phone] Sep, [id number] [place] [phone] Sep, Chronic airway obstruction, not elsewhere classified [id number] [place] [phone] Sep, Onychomycosis 110.1 and DM neuro manif type II 250.60 [place] [id number] [place] [phone] Sep, Chronic pain 338.29 ; Chronic airway obstruction, not elsewhere classified 496 ; Osteoarthritis of knees, bilateral 715.96 and On potassium wasting diuretic therapy V58.69 [place] [id number] [place] [address] [address] Sep, Insect bites 919.4 ; Sinusitis 473.9 and GERD (gastroesophageal reflux disease) 530.81 [place] [id number] [place] [address] Aug, Depression, major, recurrent, moderate 296.32 and Posttraumatic stress disorder 309.81 [place] [id number] [place] [address] Aug, [place] [id number] [place] [address] Aug, [place] [id number] [place] [address] Aug, [place] [id number] [place] [address] July, Major depressive disorder, recurrent episode, moderate 296.32 and Posttraumatic stress disorder 309.[address] [id number] [place] [address] July, [facility] [place] [facility] [address] [id number] [place] [address] July, [facility] [place] [facility] [address] [id number] [place] [address] July, [facility] [place] [facility] [address] [id number] [place] [address] July, [facility] [place] [facility] [address] [id number] [place] [address] Jun, [facility] [place] [facility] [address] [id number] [place] [address] Jun, [facility] [place] [facility] [address] [id number] [place] [address] May, [facility] [place] [facility] [address] [id number] [place] [address] May, [facility] [place] [facility] [address] [id number] [place] [address] May, [facility] [place] [facility] [address] [id number] [place] [address] May, [facility] [place] [facility] [address] [id number] [place] [address] May, [facility] [place] [facility] [address] [id number] [place] [address] May, [facility] [place] [facility] [address] [id number] [place] [address] May, [facility] [place] [facility] [address] [id number] [place] [address] May, [facility] [place] [facility] [address] [id number] [place] [address] May, [facility] [place] [facility] [address] [id number] [place] [address] Apr, [facility] [place] [facility] [address] [id number] [place] [address] Apr, [facility] [place] [facility] [address] [id number] [place] [address] Apr, 2014 [facility] [place] [facility] [address] [facility] [id number] [place] [address] Apr, [facility] [place] [facility] [address] [id number] [place] [address] Apr, 2014 [facility] [place] [facility] [address] [id number] [place] [address] Apr, [facility] [place] [facility] [address] [facility] [id number] [place] [address] Apr, [facility] [place] [facility] [address] [facility] [id number] [place] [address] Apr, [facility] [place] [facility] [address] [facility] [id number] [place] [address] Apr, [facility] [place] [facility] [address] [facility] [id number] [place] [address] Mar, [facility] [place] [facility] [address] [facility] [id number] [place] [address] Mar, [facility] [place] [facility] [address] [facility] [id number] [place] [address] Mar, [facility] [place] [facility] [address] [facility] [id number] [place] [address] Mar, [facility] [place] [facility] [address] [id number] [place] [address] Mar, [facility] [place] [facility] [address] [facility] [id number] [place] [address] Mar, [facility] [place] [facility] [address] [facility] [id number] [place] [address] Mar, [facility] [place] [facility] [address] [id number] [place] [address] 15 Mar, 2014 [facility] [place] [facility] [address] [id number] [place] [address] 15 Mar, 2014 [facility] [place] [facility] [address] [id number] [place] [address] 15 Mar, 2014 [facility] [place] [facility] [address] [id number] [place] [address] 14 Mar, 2014 [facility] [place] [facility] [address] [id number] [place] [address] 14 Mar, 2014 [facility] [place] [facility] [address] [id number] [place] [address] 14 Mar, 2014 [facility] [place] [facility] [address] [id number] [place] [address] 14 Mar, 2014 [facility] [place] [facility] [address] [id number] [place] [address] 14 Mar, 2014 [facility] [place] [facility] [address] [id number] [place] [address] 14 Mar, 2014 [facility] [place] [facility] [address] [id number] [place] [address] 09 Mar, 2014 [facility] [place] [facility] [address] [id number] [place] [address] 09 Mar, 2014 [facility] [place] [facility] [address] [id number] [place] [address] 16 Feb, 2014 [facility] [place] [facility] [address] [id number] [place] [address] 16 Feb, 2014 [facility] [place] [facility] [address] [id number] [place] [address] 15 Feb, 2014 [facility] [place] [facility] [address] [id number] [place] [address] 15 Feb, 2014 [facility] [place] [facility] [address] [id number] [place] [address] Feb, [facility] [place] [facility] [address] [id number] [place] [address] Feb, [facility] [place] [facility] [address] [id number] [place] [address] Jan, [facility] [place] [facility] [address] [id number] [place] [address] Jan, [facility] [place] [facility] [address] [id number] [place] [address] Jan, [facility] [place] [facility] [address] [id number] [place] [address] Jan, [facility] [place] [facility] [address] [id number] [place] [address] Jan, [facility] [place] [facility] [address] [id number] [place] [address] Jan, [facility] [place] [facility] [address] [id number] [place] [address] Jan, [facility] [place] [facility] [address] [id number] [place] [address] Jan, [facility] [place] [facility] [address] [id number] [place] [address] Jan, [facility] [place] [facility] [address] [id number] [place] [address] Jan, [facility] [place] [facility] [address] [id number] [place] [address] Dec, [facility] [place] [facility] [address] [id number] [place] [address] Dec, [facility] [place] [facility] [address] [id number] [place] [address] Dec, [facility] [place] [facility] [address] [id number] [place] [address] Dec, [facility] [place] [facility] [address] [id number] [place] [address] 16 Nov, 2013 [facility] [place] [facility] [address] [id number] [place] [address] 16 Nov, 2013 [facility] [place] [facility] [address] [id number] [place] [address] Nov, 2013 [facility] [place] [facility] [address] [id number] [place] [address] Nov, 2013 [facility] [place] [facility] [address] [id number] [place] [address] Nov, 2013 [facility] [place] [facility] [address] [id number] [place] [address] Nov, [facility] [place] [facility] [address] [id number] [place] [address] Oct, [facility] [place] [facility] [address] [id number] [place] [address] Oct, [facility] [place] [facility] [address] [id number] [place] [address] Oct, [facility] [place] [facility] [address] [id number] [place] [address] Oct, [facility] [place] [facility] [address] [id number] [place] [address] Sep, [facility] [place] [facility] [address] [id number] [place] [address] Sep, [facility] [place] [facility] [address] [id number] [place] [address] Sep, [facility] [place] [facility] [address] [id number] [place] [address] Sep, [facility] [place] [facility] [address] [id number] [place] [address] Sep, [facility] [place] [facility] [address] [id number] [place] [address] Sep, [facility] [place] [facility] [address] [id number] [place] [address] July, [facility] [place] [facility] [address] [id number] [place] [address] July, [facility] [place] [facility] [address] [id number] [place] [address] July, [facility] [place] [facility] [address] [id number] [place] [address] July, [facility] [place] [facility] [address] [id number] [place] [address] Jun, [facility] [place] [facility] [address] [id number] [place] [address] Jun, [facility] [place] [facility] [address] [id number] [place] [address] Jun, [facility] [place] [facility] [address] [id number] [place] [address] Jun, [facility] [place] [facility] [address] [id number] [place] [address] Jun, [facility] [place] [facility] [address] [id number] [place] [address] Jun, [facility] [place] [facility] [address] [id number] [place] [address] May, [facility] [place] [facility] [address] [id number] [place] [address] May, [facility] [place] [facility] [address] [id number] [place] [address] Apr, [facility] [place] [facility] [address] [id number] [place] [address] Apr, [facility] [place] [facility] [address] [id number] [place] [address] Apr, [facility] [place] [facility] [address] [id number] [place] [address] Apr, [facility] [address] [id number] [place] [address] Apr, [facility] [place] [facility] [address] [id number] [place] [address] Apr, [facility] [place] [facility] [address] [id number] [place] [address] Apr, [facility] [place] [facility] [address] [id number] [place] [address] Mar, [facility] [place] [facility] [address] [id number] [place] [address] Mar, [facility] [place] [facility] [address] [id number] [place] [address] Mar, [facility] [place] [facility] [address] [id number] [place] [address] Mar, [facility] [place] [facility] [address] [id number] [place] [address] Mar, [facility] [place] [facility] [address] [id number] [place] [address] Mar, [facility] [place] [facility] [address] [facility] [id number] [place] [address] Mar, [facility] [place] [facility] [address] [id number] [place] [address] Mar, [facility] [place] [facility] [address] [id number] [place] [address] Feb, [facility] [place] [facility] [address] [id number] [place] [address] Feb, [facility] [place] [facility] [address] [id number] [place] [address] Feb, [facility] [place] [facility] [address] [id number] [place] [address] Feb, [facility] [place] [facility] [address] [id number] [place] [address] Feb, [facility] [place] [facility] [address] [id number] [place] [address] Feb, [facility] [place] [facility] [address] [id number] [place] [address] Feb, [facility] [place] [facility] [address] [id number] [place] [address] Jan, [facility] [place] [facility] [address] [id number] [place] [address] Jan, [facility] [place] [facility] [address] [id number] [place] [address] Jan, [facility] [place] [facility] [address] [id number] [place] [address] Jan, [facility] [place] [facility] [address] [id number] [place] [address] Jan, [facility] [place] [facility] [address] [id number] [place] [address] Jan, [facility] [place] [facility] [address] [id number] [place] [id number] Jan, [facility] [place] [facility] [address] [id number] [place] [id number] Jan, [facility] [place] [facility] [address] [id number] [place] [address] Dec, [facility] [place] [facility] [address] [id number] [place] [address] Dec, [facility] [place] [facility] [address] [id number] [place] [address] Dec, [facility] [place] [facility] [address] [id number] [place] [address] Dec, [facility] [place] [facility] [address] [id number] [place] [address] Dec, [facility] [place] [facility] [address] [id number] [place] [address] Dec, [facility] [place] [facility] [address] [id number] [place] [address] Dec, [facility] [place] [facility] [address] [id number] [place] [address] Dec, [facility] [place] [facility] [address] [id number] [place] [address] Dec, [facility] [place] [facility] [address] [id number] [place] [address] Dec, [facility] [place] [facility] [address] [id number] [place] [id number] 27 Nov, 2012 [facility] [place] [facility] [address] [id number] [place] [id number] Nov, [facility] [place] [facility] [address] [id number] [place] [address] 24 Nov, 2012 [facility] [place] [facility] [address] [id number] [place] [address] 20 Nov, 2012 [facility] [place] [facility] [address] [id number] [place] [address] 19 Nov, 2012 [facility] [place] [facility] [address] [id number] [place] [address] 13 Nov, 2012 [facility] [place] [facility] [address] [id number] [place] [address] 10 Nov, 2012 [facility] [place] [facility] [address] [id number] [place] [address] 06 Nov, 2012 [facility] [place] [facility] [address] [id number] [place] [address] Oct, [facility] [place] [facility] [address] [id number] [place] [address] Oct, [facility] [place] [facility] [address] [id number] [place] [address] Oct, [facility] [address] [id number] [place] [address] Sep, [facility] [place] [facility] [address] [id number] [place] [address] Sep, [facility] [place] [facility] [address] [id number] [place] [address] Sep, [facility] [place] [facility] [address] [id number] [place] [address] Sep, [facility] [place] [facility] [address] [id number] [place] [address] Sep, [facility] [place] [facility] [address] [id number] [place] [address] Aug, [facility] [address] [id number] [place] [address] Aug, [facility] [place] [facility] [address] [id number] [place] [address] Aug, [facility] [place] [facility] [address] [id number] [place] [address] Aug, [facility] [place] [facility] [address] [id number] [place] [address] Aug, [facility] [place] [facility] [address] [id number] [place] [address] Aug, [facility] [place] [facility] [address] [id number] [place] [address] July, [facility] [place] [facility] [address] [id number] [place] [address] July, [facility] [place] [facility] [address] [id number] [place] [address] July, [facility] [place] [facility] [address] [id number] [place] [address] July, [facility] [place] [facility] [address] [id number] [place] [address] July, [facility] [address] [id number] [place] [address] July, [facility] [address] [id number] [place] [address] Jun, [facility] [address] [id number] [place] [address] Jun, [facility] [address] [id number] [place] [address] Jun, [facility] [address] [id number] [place] [address] Jun, [facility] [address] [id number] [place] [address] May, [facility] [address] [id number] [place] [address] May, [facility] [address] [id number] [place] [address] May, [facility] [address] [id number] [place] [address] Apr, [facility] [address] [id number] [place] [address] Mar, [facility] [address] [id number] [place] [address] Mar, [facility] [address] [id number] [place] [address] 17 Mar, 2012 [facility] [place] [facility] [address] [id number] [place] [address] 16 Mar, 2012 [facility] [address] [id number] [place] [address] 15 Mar, 2012 [facility] [address] [id number] [place] [address] Feb, [facility] [place] [facility] [address] [id number] [place] [address] Feb, [facility] [place] [facility] [address] [id number] [place] [address] Feb, [facility] [place] [facility] [address] [id number] [place] [address] Feb, [facility] [place] [facility] [address] [id number] [place] [address] Jan, [facility] [place] [facility] [address] [id number] [place] [address] Jan, [facility] [place] [facility] [address] [id number] [place] [address] Jan, [facility] [place] [facility] [address] [id number] [place] [address] Jan, [facility] [place] [facility] [address] [id number] [place] [address] Dec, [facility] [place] [facility] [address] [id number] [place] [address] Dec, [facility] [place] [facility] [address] [id number] [place] [address] Nov, [facility] [place] [facility] [address] [id number] [place] [address] Oct, [facility] [place] [facility] [address] [id number] [place] [address] Oct, [facility] [place] [facility] [address] [id number] [place] [address] Oct, [facility] [place] [facility] [address] [id number] [place] [address] Oct, [facility] [place] [facility] [address] [id number] [place] [address] Oct, [facility] [place] [facility] [address] [id number] [place] [address] Sep, [facility] [address] [id number] [place] [address] Sep, [facility] [address] [facility] [id number] [place] [address] Aug, [facility] [address] [place] [id number] Aug, [facility] [address] [id number] [place] [address] Aug, [facility] [address] [id number] [place] [address] July, [facility] [address] [id number] [place] [address] July, [facility] [address] [id number] [place] [address] Jun, [facility] [address] [id number] [place] [address] Jun, [facility] [address] [id number] [place] [address] Jun, [facility] [address] [id number] [place] [address] Jun, [facility] [address] [id number] [place] [address] Apr, [facility] [place] [facility] [address] [id number] [place] [address] Apr, [facility] [place] [facility] [address] [id number] [place] [address] Apr, [facility] [place] [facility] [address] [id number] [place] [address] Mar, [facility] [place] [facility] [address] [id number] [place] [address] Mar, [facility] [place] [facility] [address] [id number] [place] [address] Mar, [facility] [address] [id number] [place] [address] Mar, [facility] [place] [facility] [address] [id number] [place] [address] Mar, [facility] [address] [id number] [place] [address] Jan, [facility] [place] [facility] [address] [id number] [place] [address] Jan, [facility] [address] [id number] [place] [address] Jan, [facility] [address] [id number] [place] [address] Mar, [facility] [address] [id number] [place] [address] Mar, [facility] [address] [id number] [place] [address] Feb, [facility] [address] [id number] [place] [address] Feb, [facility] [address] [id number] [place] [address] Feb, [facility] [place] [facility] [address] [id number] [place] [address] Jan, [facility] [place] [facility] [address] [id number] [place] [address] Jan, [facility] [place] [facility] [address] [id number] [place] [address] Dec, [facility] [place] [facility] [address] [id number] [place] [address] Dec, [facility] [place] [facility] [address] [id number] [place] [address] May, [facility] [place] [address] [id number] [address] 10 Apr, 2009 [facility] [place] [id number] [place] [address] Feb, [facility] [place] [address] [id number] [address] Feb, [facility] [place] [id number] [place] [address] Jan, [facility] [place] [id number] [place] [address] Jan, [facility] [place] [id number] [place] [address] Jan, [facility] [place] [id number] [place] [address] Jan, [facility] [place] [id number] [address] Jan, IMMUNIZATIONS No Known Immunizations SOCIAL HISTORY [...]
--- OUTSIDE RECORDS SUMMARY | 2018-10-04 07:19 | XMS REPORT ---
Author Author DELILAH FEDERICO Organization [facility] Address [address] [place] [address] Care Team Providers Care Seating Captain Name Role Phone AGUILARPAWAN ADHIKARIA Unavailable PROBLEMS Type Condition ICD9-CM Code BLR73-MM Code Onset Dates Condition Status SNOMED Code Problem Primary osteoarthritis of both knees M17.0 Active 616367398 Problem Nocturnal hypoxia G47.34 Active 365424717 Problem Chronic prescription opiate use Z79.891 Active 465466220 Problem Pure hypercholesterolemia E78.0 Active 316928130 Problem Acute right-sided low back pain with right-sided sciatica M54.41 Active 29423789 Problem Type 2 diabetes mellitus with diabetic polyneuropathy E11.42 Active 384794368 Problem Severe major depression with psychotic features F32.3 Active 24167219 Problem Obesity, morbid, BMI 40.0-49.9 E66.01 Active 860575747 Problem Posttraumatic stress disorder F43.10 Active 28877617 Problem Primary insomnia F51.01 Active 0008955 Problem Mood disorder F39 Active 24860348 Problem History of DVT (deep vein thrombosis) Z86.718 Active 471825159 Problem Chronic pain syndrome G89.4 Active 237166774 Problem Chronic systolic (congestive) heart failure I50.22 Active 178362159 Problem Macrocytosis D75.89 Active 792749790 Problem Tobacco abuse Z72.0 Active 507269353 Problem Mild episode of recurrent major depressive disorder F33.0 Active 633707371 Problem BMI 45.0-49.9, adult Z68.42 Active 487585086 Problem Gastroesophageal reflux disease, esophagitis presence not specified K21.9 Active 939286246 Problem Non-ischemic cardiomyopathy I42.9 Active 89767277 Problem Essential hypertension I10 Active 99485931 Problem Major depressive disorder, recurrent episode, unspecified severity F33.9 Active 89697952 Problem PTSD (post-traumatic stress disorder) F43.10 Active 10674669 Problem MITCHELL treated with BiPAP G47.33 Active 20144625 Problem Chronic obstructive pulmonary disease, unspecified COPD type J44.9 Active 93687549 Problem History of weight loss surgery Z98.84 Active 379628143 ALLERGIES No Information ENCOUNTERS Encounter Location Date Diagnosis [place] [id number] [place] [address] Sep, [place] [address] [place] [id number] [place] [address] July, Primary osteoarthritis of both knees M17.0 and Chronic pain syndrome G89.4 [place] [address] [place] [id number] [place] [address] July, Type 2 diabetes mellitus with diabetic polyneuropathy E11.42 ; Essential hypertension I10 ; Pure hypercholesterolemia E78.0 ; Chronic prescription opiate use Z79.891 ; Tobacco abuse Z72.0 ; Primary osteoarthritis of both knees M17.0 ; Primary insomnia F51.01 and BMI 45.0-49.9, adult Z68.42 [place] [id number] [place] [address] 08 Jul, 2017 Medicare annual wellness visit, [...] specified K21.9 and Encounter for immunization Z23 [place] [id number] [place] [address] July, Primary osteoarthritis of both knees M17.0 and Chronic pain syndrome G89.4 [facility] [id number] [place] [address] Jun, Infection of right ear H66.91 ; Wheezing on auscultation R06.2 and BMI 45.0-49.9, adult Z68.42 [facility] [address] [address] Jun, [facility] [address] [place] [address] [id number] [place] [address] Jun, Primary osteoarthritis of both knees M17.0 and Chronic pain syndrome G89.4 [facility] [id number] [place] [address] May, [facility] [address] [place] [id number] [place] [address] May, BMI 45.0-49.9, adult Z68.42 ; Mood disorder F39 and Posttraumatic stress disorder F43.10 [facility] [address] [id number] [place] [address] May, [facility] [address] [id number] [place] [address] May, Primary osteoarthritis of both knees M17.0 and Chronic pain syndrome G89.4 [facility] [address] [id number] [place] [address] May, Mood disorder F39 [facility] [address] [id number] [place] [address] Apr, Type 2 diabetes mellitus with diabetic polyneuropathy E11.42 [facility] [id number] [place] [address] Apr, [facility] [address] [id number] [place] [address] Apr, Primary osteoarthritis of both knees M17.0 and Chronic pain syndrome G89.4 [facility] [id number] [place] [address] Apr, Mood disorder F39 [facility] [id number] [place] [address] Mar, Mood disorder F39 and Posttraumatic stress disorder F43.10 [facility] [address] [id number] [place] [address] Mar, Primary osteoarthritis of both knees M17.0 and Chronic pain syndrome G89.4 [facility] [address] [place] [id number] [place] [address] Feb, Primary osteoarthritis of both knees M17.0 and Chronic pain syndrome G89.4 [facility] [address] [id number] [place] [address] Feb, Mood disorder F39 [place] [address] [place] [id number] [place] [address] Jan, Type 2 diabetes mellitus with diabetic polyneuropathy E11.42 ; Primary osteoarthritis of both knees M17.0 ; Mood disorder F39 ; Obesity, morbid, BMI 40.0-49.9 E66.01 ; Chronic prescription opiate use Z79.891 ; Acute suppurative otitis media of both ears without spontaneous rupture of tympanic membranes, recurrence not specified H66.003 and BMI 45.0-49.9, adult Z68.42 [place] [address] [place] [id number] [place] [address] Jan, Primary osteoarthritis of both knees M17.0 and Chronic pain syndrome G89.4 [place] [address] [place] [id number] [place] [address] Dec, Mood disorder F39 and Posttraumatic stress disorder F43.10 [place] [address] [place] [id number] [place] [address] Dec, Primary osteoarthritis of both knees M17.0 and Chronic pain syndrome G89.4 [facility] [address] [place] [id number] [place] [address] 18 Nov, 2016 Chronic pain syndrome G89.4 [facility] [address] [place] [id number] [place] [address] 15 Nov, 2016 Primary osteoarthritis of both knees M17.0 and Chronic pain syndrome G89.4 [place] [address] [place] [id number] [place] [address] 13 Nov, 2016 Type 2 diabetes mellitus with diabetic polyneuropathy E11.42 and Chronic pain syndrome G89.4 [facility] [address] [place] [id number] [place] [address] 12 Nov, 2016 Posttraumatic stress disorder F43.10 and Mood disorder F39 [facility] [address] [place] [address] [id number] [place] [address] Oct, Chronic pain syndrome G89.4 [facility] [address] [place] [id number] [place] [address] Oct, Type 2 diabetes mellitus with diabetic polyneuropathy E11.42 ; BMI 45.0-49.9, adult Z68.42 ; Primary osteoarthritis of both knees M17.0 and Skin lesion L98.9 [facility] [address] [place] [id number] [place] [address] Oct, Chronic pain syndrome G89.4 [facility] [address] [place] [id number] [place] [address] Sep, Chronic pain syndrome G89.4 [facility] [address] [place] [id number] [place] [address] Sep, [facility] [address] [place] [id number] [place] [address] Sep, Chronic pain syndrome G89.4 [facility] [address] [place] [id number] [place] [address] Aug, Chronic pain syndrome G89.4 [facility] [address] [place] [id number] [place] [address] Aug, [facility] [address] [place] [address] [id number] [place] [address] Aug, Macrocytosis D75.89 and Pure hypercholesterolemia E78.0 [facility] [address] [place] [id number] [place] [address] Aug, Pure hypercholesterolemia E78.0 [place] [address] [address] 08 Aug, 2016 Macrocytosis D75.89 [place] [address] [place] [id number] [place] [address] Aug, Pure hypercholesterolemia E78.0 ; Type 2 diabetes mellitus with diabetic polyneuropathy E11.42 ; MITCHELL treated with BiPAP G47.33 and Chronic pain syndrome G89.4 [place] [address] [place] [id number] [place] [address] Aug, [place] [address] [place] [id number] [place] [address] Aug, Hemorrhoids, unspecified hemorrhoid type K64.9 [place] [address] [place] [id number] [place] [address] Aug, Chronic pain syndrome G89.4 ; Type 2 diabetes mellitus with diabetic polyneuropathy E11.42 ; Hemorrhoids, unspecified hemorrhoid type K64.9 ; Tobacco abuse Z72.0 and Primary osteoarthritis of both knees M17.0 [place] [address] [place] [id number] [place] [address] July, Chronic pain syndrome G89.4 [place] [address] [place] [id number] [place] [address] July, [place] [id number] [place] [address] Jun, Chronic pain syndrome G89.4 [place] [id number] [place] [address] Jun, Chronic pain syndrome G89.4 [place] [address] [place] [id number] [place] [address] Jun, Severe major depression with psychotic features F32.3 and Posttraumatic stress disorder F43.10 [place] [address] [place] [id number] [place] [address] Jun, Chronic pain syndrome G89.4 [facility] [id number] [place] [address] Jun, [facility] [address] [place] [id number] [place] [address] May, Chronic pain syndrome G89.4 [facility] [address] [place] [id number] [place] [address] May, Tobacco abuse Z72.0 [facility] [address] [place] [id number] [place] [address] May, [facility] [address] [place] [id number] [place] [address] Apr, Chronic pain syndrome G89.4 [facility] [address] [place] [id number] [place] [address] Apr, [facility] [address] [place] [id number] [place] [address] Apr, Right foot pain M79.671 [facility] [address] [place] [id number] [place] [address] Mar, Type 2 diabetes mellitus with diabetic polyneuropathy E11.42 ; MITCHELL treated with BiPAP G47.33 ; Pure hypercholesterolemia E78.0 ; Chronic pain syndrome G89.4 ; Tobacco abuse Z72.0 and Obesity, morbid, BMI 40.0-49.9 E66.01 [facility] [address] [address] Mar, [facility] [address] [place] [id number] [place] [address] Mar, [facility] [address] [place] [id number] [place] [address] Mar, [facility] [id number] [place] [address] Mar, [facility] [address] [place] [id number] [place] [address] Mar, [facility] [address], [place] [address] Mar, Severe major depression with psychotic features F32.3 and Posttraumatic stress disorder F43.10 [facility] [address] [address] Mar, [facility] [id number] [place] [address] Feb, [facility] [address], [place] [address] Feb, [facility] [address] [place] [id number] [place] [address] Jan, [facility] [id number] [place] [address] Jan, [facility] [address] [place] [id number] [place] [address] Dec, Posttraumatic stress disorder F43.10 and Severe major depression with psychotic features F32.3 [facility] [id number] [place] [address] Dec, Type 2 diabetes mellitus with diabetic polyneuropathy E11.42 ; Chronic pain syndrome G89.4 and Acute right-sided low back pain with right-sided sciatica M54.41 [facility] [address], [place] [address] Dec, [facility] [address], [place] [address] Dec, [facility] [address], [place] [address] Nov, [facility] [address], [place] [address] Nov, [facility] [address], [place] [address] Nov, [facility] [address], [place] [address] Oct, [facility] [address] [place] [id number] [place] [address] Oct, [facility] [address] [place] [id number] [place] [address] Sep, Dental examination Z01.20 [facility] [address] [place] [id number] [place] [address] Sep, [facility] [address] [place] [id number] [place] [address] Sep, Type 2 diabetes mellitus with diabetic polyneuropathy E11.42 ; Chronic pain syndrome G89.4 ; Chronic prescription opiate use Z79.891 ; Injury of right index finger, sequela S69.91XS and Anejaculation N50.8 [facility] [address] [place] [id number] [place] [address] Aug, [facility] [address] [place] [id number] [place] [address] Aug, [facility] [address] [place] [id number] [place] [address] Aug, Cellulitis of finger of right hand L03.011 [facility] [id number] [place] [address] July, [facility] [address] [place] [id number] [place] [address] July, [facility] [id number] [place] [address] Jun, Onychomycosis B35.1 [facility] [address] [place] [id number] [place] [address] Jun, Severe major depression with psychotic features F32.3 and Posttraumatic stress disorder F43.10 [facility] [address] [place] [id number] [place] [address] Jun, [facility] [address], [place] [address] Jun, [facility] [id number] [place] [address] Jun, [facility] [id number] [place] [address] May, Type 2 diabetes mellitus with diabetic polyneuropathy E11.42 [place] [address] [place] [id number] [place] [address] May, Type 2 diabetes mellitus with diabetic polyneuropathy E11.42 and Urinary hesitancy R39.11 [place] [address] [place] [id number] [place] [address] May, Type 2 diabetes mellitus with diabetic polyneuropathy E11.42 ; Left hip pain M25.552 and Benign prostatic hyperplasia with lower urinary tract symptoms, unspecified morphology N40.1 [place] [address], [place] [address] May, [place] [address] [place] [id number] [place] [address] Apr, Severe major depression with psychotic features F32.3 and Posttraumatic stress disorder F43.10 [place] [address], [place] [address] Apr, [place] [address], [place] [address] Mar, [facility] [address] [place] [address] Mar, Dysuria R30.0 and Urinary hesitancy R39.11 [place] [address], [place] [address] Mar, Onychomycosis B35.1 [place] [address] [place] [id number] [place] [address] Mar, [facility] [address], [place] [address] Feb, [facility] [id number] [place] [address] Jan, [facility] [address], [place] [address] Jan, Posttraumatic stress disorder F43.10 and Severe major depression with psychotic features F32.3 [facility] [address], [place] [address] Jan, [facility] [address] [place] [id number] [place] [address] Jan, Chronic pain syndrome G89.4 ; Type 2 diabetes mellitus with diabetic polyneuropathy E11.42 ; Decreased pedal pulses R09.89 and Paresthesia of both hands R20.2 [facility] [address] [place] [address] Dec, Posttraumatic stress disorder F43.10 and Severe major depression with psychotic features F32.3 [facility] [id number] [place] [address] Dec, [facility] [address], [place] [address] Dec, [facility] [address], [place] [address] Dec, Onychomycosis B35.1 [facility] [address], [place] [address] Dec, [facility] [address] [place] [id number] [place] [address] Dec, [facility] [address], [place] [address] Nov, [facility] [id number] [place] [address] Oct, Depression, major, recurrent, moderate 296.32 and Posttraumatic stress disorder 309.81 [place] [id number] [place] [address] Oct, [facility] [address] [place] [id number] [place] [address] Oct, [place] [address] [place] [id number] [place] [address] Oct, [place] [address] [place] [id number] [place] [address] Sep, Posttraumatic stress disorder 309.81 and Depression, major, recurrent, moderate 296.32 [place] [id number] [place] [address] Sep, [address] [address] Sep, Chronic airway obstruction, not elsewhere classified [address] [id number] [place] [address] Sep, Onychomycosis 110.1 and DM neuro manif type II 250.60 [place] [id number] [place] [address] Sep, Chronic pain 338.29 ; Chronic airway obstruction, not elsewhere classified 496 ; Osteoarthritis of knees, bilateral 715.96 and On potassium wasting diuretic therapy V58.69 [place] [address] [place] [id number] [place] [address] Sep, Insect bites 919.4 ; Sinusitis 473.9 and GERD (gastroesophageal reflux disease) 530.81 [place] [id number] [place] [address] Aug, Depression, major, recurrent, moderate 296.32 and Posttraumatic stress disorder 309.81 [place] [id number] [place] [address] Aug, [address] [id number] [place] [address] Aug, [facility] [address] [id number] [place] [address] Aug, [facility] [address] [facility] [id number] [place] [address] July, Major depressive disorder, recurrent episode, moderate 296.32 and Posttraumatic stress disorder 309.81 [facility] [address] [id number] [place] [address] July, [facility] [address] [id number] [place] [address] July, [facility] [address] [facility] [id number] [place] [address] July, [facility] [address] [facility] [id number] [place] [address] July, [facility] [address] [facility] [id number] [place] [address] Jun, [facility] [address] [id number] [place] [address] Jun, [facility] [address] [facility] [id number] [place] [address] May, [facility] [address] [id number], [place] [address] May, [facility] [place] [facility] [address] [id number], [place] [address] May, [facility] [place] [facility] [address] [id number] [place] [address] May, [facility] [place] [facility] [address] [id number] [place] [address] May, [facility] [place] [facility] [address] [id number] [place] [address] May, [facility] [address] [id number] [place] [address] May, [facility] [place] [facility] [address] [id number] [place] [address] May, [facility] [place] [facility] [address] [id number] [place] [address] May, [facility] [place] [facility] [address] [id number] [place] [address] Apr, 2014 [facility] [place] [facility] [address] [id number] [place] [address] Apr, 2014 [facility] [place] [facility] [address] [id number] [place] [address] Apr, [facility] [place] [facility] [address] [facility] [id number] [place] [address] Apr, 2014 [facility] [place] [facility] [address] [id number] [place] [address] Apr, [facility] [place] [facility] [address] [id number] [place] [address] Apr, [facility] [place] [facility] [address] [facility] [id number] [place] [address] Apr, [facility] [place] [facility] [address] [facility] [id number] [place] [address] Apr, [facility] [place] [facility] [address] [facility] [id number], [place] [address] Apr, [facility] [place] [facility] [address] [id number] [place] [address] Mar, [facility] [place] [facility] [address] [id number] [place] [address] Mar, [facility] [place] [facility] [address] [id number] [place] [address] Mar, [facility] [place] [facility] [address] [facility] [id number], [place] [address] Mar, [facility] [place] [facility] [address] [id number] [place] [address] 15 Mar, 2014 [facility] [place] [facility] [address] [id number] [place] [address] 15 Mar, 2014 [facility] [place] [facility] [address] [id number] [place] [address] 15 Mar, 2014 [facility] [place] [facility] [address] [id number] [place] [address] 15 Mar, 2014 [facility] [place] [facility] [address] [id number] [place] [address] 15 Mar, 2014 [facility] [place] [facility] [address] [id number] [place] [address] 15 Mar, 2014 [facility] [place] [facility] [address] [id number] [place] [address] 14 Mar, 2014 [facility] [place] [facility] [address] [id number] [place] [address] 14 Mar, 2014 [facility] [place] [facility] [address] [id number] [place] [address] 14 Mar, 2014 [facility] [place] [facility] [address] [id number] [place] [address] 14 Mar, 2014 [facility] [place] [facility] [address] [id number], [place] [address] Mar, [facility] [place] [facility] [address] [id number], [place] [address] 14 Mar, 2014 [facility] [place] [facility] [address] [address] [id number] [place] [address] Mar, [facility] [place] [facility] [address] [id number] [place] [address] 09 Mar, 2014 [facility] [place] [facility] [address] [id number] [place] [address] 16 Feb, 2014 [facility] [place] [facility] [address] [id number] [place] [address] 16 Feb, 2014 [facility] [place] [facility] [address] [id number] [place] [address] 15 Feb, 2014 [facility] [place] [facility] [address] [id number] [place] [address] 15 Feb, 2014 [facility] [place] [facility] [address] [id number] [place] [address] 15 Feb, 2014 [facility] [place] [facility] [address] [id number] [place] [address] 15 Feb, 2014 [facility] [place] [facility] [address] [id number] [place] [address] Jan, [facility] [place] [facility] [address] [id number] [place] [address] Jan, [facility] [place] [facility] [address] [id number] [place] [address] Jan, [facility] [place] [facility] [address] [id number] [place] [address] Jan, [facility] [place] [facility] [address] [id number] [place] [address] Jan, [facility] [place] [facility] [address] [id number] [place] [address] Jan, [facility] [place] [facility] [address] [id number] [place] [address] Jan, [facility] [place] [facility] [address] [id number] [place] [address] Jan, [facility] [place] [facility] [address] [id number] [place] [address] Jan, [facility] [place] [facility] [address] [id number] [place] [address] Jan, [facility] [place] [facility] [address] [id number] [place] [address] Dec, [facility] [place] [facility] [address] [id number] [place] [address] Dec, [facility] [place] [facility] [address] [id number] [place] [address] Dec, [facility] [place] [facility] [address] [id number] [place] [address] Dec, [facility] [place] [facility] [address] [id number] [place] [address] Nov, 2013 [facility] [place] [facility] [address] [id number] [place] [address] Nov, [facility] [place] [facility] [address] [id number] [place] [address] Nov, [facility] [place] [facility] [address] [id number] [place] [address] Nov, [facility] [place] [facility] [address] [id number] [place] [address] Nov, [facility] [place] [facility] [address] [id number] [place] [address] Nov, [facility] [place] [facility] [address] [id number] [place] [address] Oct, [facility] [place] [facility] [address] [id number] [place] [address] Oct, [facility] [place] [facility] [address] [id number] [place] [address] Oct, [facility] [place] [facility] [address] [id number] [place] [address] Oct, [facility] [place] [facility] [address] [id number] [place] [address] Sep, [facility] [place] [facility] [address] [id number] [place] [address] Sep, [facility] [place] [facility] [address] [id number] [place] [address] Sep, [facility] [place] [facility] [address] [id number] [place] [address] Sep, [facility] [place] [facility] [address] [id number] [place] [address] Sep, [facility] [place] [facility] [address] [id number] [place] [address] Sep, [facility] [place] [facility] [address] [id number] [place] [address] July, [facility] [place] [facility] [address] [id number] [place] [address] July, [facility] [place] [facility] [address] [id number] [place] [address] July, [facility] [place] [facility] [address] [id number] [place] [address] July, [facility] [place] [facility] [address] [id number] [place] [address] Jun, [facility] [place] [facility] [address] [id number] [place] [address] Jun, [facility] [place] [facility] [address] [id number] [place] [address] Jun, [facility] [place] [facility] [address] [id number] [place] [address] Jun, [facility] [place] [facility] [address] [id number] [place] [address] Jun, [facility] [place] [facility] [address] [id number] [place] [address] Jun, [facility] [place] [facility] [address] [id number] [place] [address] May, [facility] [place] [facility] [address] [id number] [place] [address] May, [facility] [place] [facility] [address] [id number] [place] [address] Apr, [facility] [place] [facility] [address] [id number] [place] [address] Apr, [facility] [place] [facility] [address] [id number] [place] [address] Apr, [facility] [place] [facility] [address] [id number] [place] [address] Apr, [facility] [place] [facility] [address] [id number] [place] [address] Apr, [facility] [place] [facility] [address] [id number] [place] [address] Apr, [facility] [place] [facility] [address] [id number] [place] [address] Apr, [facility] [place] [facility] [address] [id number] [place] [address] Mar, [facility] [place] [facility] [address] [id number] [place] [address] Mar, [facility] [place] [facility] [address] [id number] [place] [address] Mar, [facility] [place] [facility] [address] [id number], [place] [address] Mar, [facility] [place] [facility] [address] [id number], [place] [address] Mar, [facility] [place] [facility] [address] [id number] [place] [address] Mar, [facility] [place] [facility] [address] [id number], [place] [address] Mar, [facility] [place] [facility] [address] [id number], [place] [address] Mar, [facility] [place] [facility] [address] [id number], [place] [address] Feb, [facility] [address] [id number], [place] [address] Feb, [facility] [place] [facility] [address] [id number], [place] [address] Feb, [facility] [address] [id number], [place] [address] Feb, [facility] [place] [facility] [address] [id number], [place] [address] Feb, [facility] [address] [id number], [place] [address] Feb, [facility] [place] [facility] [address] [id number], [place] [address] Feb, [facility] [address] [id number], [place] [address] Jan, [facility] [place] [facility] [address] [id number], [place] [address] Jan, [facility] [address] [id number], [place] [address] Jan, [facility] [place] [facility] [address] [id number], [place] [address] Jan, [facility] [place] [facility] [address] [id number], [place] [address] Jan, [facility] [place] [facility] [address] [id number], [place] [address] Jan, [facility] [place] [facility] [address] [id number][place] [address] Jan, [facility] [place] [facility] [address] [id number][place] [address] Jan, [facility] [place] [facility] [address] [id number], [place] [address] Dec, [facility] [place] [facility] [address] [id number] [place] [address] Dec, 2012 [facility] [place] [facility] [address] [id number] [place] [address] Dec, 2012 [facility] [place] [facility] [address] [id number] [place] [address] Dec, 2012 [facility] [place] [facility] [address] [id number] [place] [address] Dec, 2012 [facility] [place] [facility] [address] [id number] [place] [address] Dec, 2012 [facility] [place] [facility] [address] [id number] [place] [address] Dec, 2012 [facility] [place] [facility] [address] [id number] [place] [address] 16 Dec, 2012 [facility] [place] [facility] [address] [id number] [place] [address] 16 Dec, 2012 [facility] [place] [facility] [address] [id number] [place] [address] 04 Dec, 2012 [facility] [place] [facility] [address] [id number][place] [id number] 27 Nov, 2012 [facility] [place] [facility] [address] [id number][place] [id number] 27 Nov, 2012 [facility] [place] [facility] [address] [id number] [place] [address] 24 Sep, 2012 [facility] [place] [facility] [address] [id number], [place] [address] 20 Sep, 2012 [facility] [place] [facility] [address] [id number] [place] [address] 19 Sep, 2012 [facility] [place] [facility] [address] [id number] [place] [address] 13 Nov, 2012 [facility] [place] [facility] [address] [id number], [place] [address] 10 Nov, 2012 [facility] [place] [facility] [address] [id number] [place] [address] Nov, [facility] [place] [facility] [address] [id number] [place] [address] Oct, [facility] [place] [facility] [address] [id number] [place] [address] Oct, [facility] [place] [facility] [address] [id number] [place] [address] Oct, [facility] [address] [id number] [place] [address] Sep, [facility] [place] [facility] [address] [id number] [place] [address] Sep, [facility] [address] [id number] [place] [address] Sep, [facility] [place] [facility] [address] [id number] [place] [address] Sep, [facility] [place] [facility] [address] [id number] [place] [address] Sep, [facility] [place] [facility] [address] [id number] [place] [address] Aug, [facility] [place] [facility] [address] [id number] [place] [address] Aug, [facility] [place] [facility] [address] [id number] [place] [address] Aug, [facility] [place] [facility] [address] [id number] [place] [address] Aug, [facility] [place] [facility] [address] [id number] [place] [address] Aug, [facility] [place] [facility] [address] [id number] [place] [address] Aug, [facility] [place] [facility] [address] [id number] [place] [address] July, [facility] [address] [id number] [place] [address] July, [facility] [address] [id number] [place] [address] July, [facility] [address] [id number] [place] [address] July, [facility] [address] [id number] [place] [address] July, [facility] [address] [id number] [place] [address] July, [facility] [address] [id number] [place] [address] Jun, [facility] [address] [id number] [place] [address] Jun, [facility] [address] [id number] [place] [address] Jun, [facility] [address] [id number] [place] [address] Jun, [facility] [address] [id number] [place] [address] May, [facility] [address] [id number] [place] [address] May, [facility] [place] [facility] [address] [id number] [place] [address] May, [facility] [place] [facility] [address] [id number] [place] [address] Apr, [facility] [place] [facility] [address] [id number] [place] [address] Mar, [facility] [place] [facility] [address] [id number] [place] [address] Mar, [facility] [place] [facility] [address] [id number] [place] [address] 17 Mar, 2012 [facility] [address] [id number] [place] [address] 16 Mar, 2012 [facility] [place] [facility] [address] [id number] [place] [address] 15 Mar, 2012 [facility] [address] [id number] [place] [address] 31 Feb, 2012 [facility] [address] [id number] [place] [address] Feb, [facility] [address] [id number] [place] [address] Feb, [facility] [address] [id number] [place] [address] 17 Feb, 2012 [facility] [address] [id number] [place] [address] Jan, [facility] [address] [id number] [place] [address] Jan, [facility] [address] [id number] [place] [address] Jan, [facility] [address] [id number] [place] [address] Jan, [facility] [place] [facility] [address] [id number] [place] [address] Dec, [facility] [address] [id number] [place] [address] Dec, [facility] [place] [facility] [address] [id number] [place] [address] Nov, [facility] [place] [facility] [address] [id number] [place] [address] Oct, [facility] [place] [facility] [address] [id number] [place] [address] Oct, [facility] [address] [id number] [place] [address] Oct, [facility] [address] [id number] [place] [address] Oct, [facility] [address] [id number] [place] [address] Oct, [facility] [address] [id number] [place] [address] Sep, [facility] [address] [id number] [place] [address] Sep, [facility] [address] [id number] [place] [address] Aug, [address] [id number] Aug, [facility] [address] [id number] [place] [address] Aug, [facility] [address] [id number] [place] [address] July, [facility] [address] [id number] [place] [address] July, [facility] [address] [id number] [place] [address] Jun, [facility] [address] [id number] [place] [address] Jun, [facility] [address] [id number] [place] [address] Jun, [facility] [place] [facility] [address] [id number] [place] [address] Jun, [facility] [address] [id number] [place] [address] Apr, [facility] [address] [id number] [place] [address] 15 Apr, 2011 [facility] [place] [facility] [address] [id number] [place] [address] Apr, [facility] [place] [facility] [address] [id number] [place] [address] Mar, [facility] [place] [facility] [address] [id number] [place] [address] Mar, [facility] [place] [facility] [address] [id number] [place] [address] Mar, [facility] [place] [facility] [address] [id number] [place] [address] Mar, [facility] [place] [facility] [address] [id number] [place] [address] Mar, [facility] [address] [id number] [place] [address] Jan, [facility] [place] [facility] [address] [id number] [place] [address] Jan, [facility] [place] [facility] [address] [id number] [place] [address] Jan, [facility] [place] [facility] [address] [id number] [place] [address] Mar, [facility] [place] [facility] [address] [id number] [place] [address] Mar, [facility] [place] [facility] [address] [id number] [place] [address] Feb, [facility] [place] [facility] [address] [id number] [place] [address] Feb, [facility] [place] [facility] [address] [id number] [place] [address] Feb, [facility] [place] [facility] [address] [id number] [place] [address] Jan, [facility] [place] [facility] [id number], [place] [address] Jan, [facility] [id number], [place] [address] Dec, [facility] [id number], [place] [address] Dec, [facility] [id number], [place] [address] May, [facility] [id number], [place] [address] Apr, [facility] [id number] [place] [address] Feb, [facility] [id number] [place] [address] Feb, [facility] [id number] [place] [address] Jan, [facility] [id number], [place] [address] Jan, [facility] [id number], [place] [address] Jan, [facility] [id number], [place] [address] Jan, [facility] [id number], [place] [address] Jan, IMMUNIZATIONS No Known Immunizations SOCIAL HISTORY Never Assessed REASON FOR VISIT med refill PLAN OF CARE VITAL SIGNS MEDICATIONS Medication Instructions Dosage Frequency Start Date End Date Duration Status Prozac 10 mg Orally Once a day 1 capsule in the morning 24h Jun, 30 days Active HydrOXYzine Pamoate 50 MG Orally three times a day as needed for anxiety and sleep 1-2 capsules 30 days Active Klonopin 1 mg Orally twice a day as needed for anxiety 1 tablet 30 days Active Invega 6 MG Orally Once a day TAKE TWO TABLETS BY MOUTH ONCE DAILY 24h 30 days Active Prozac 40 MG Orally Once a day 1 capsule 24h 30 days Active RESULTS No Results PROCEDURES [...]
--- OUTSIDE RECORDS SUMMARY | 2018-10-04 07:20 | XMS REPORT ---
Author Author KATHY ESTHER [facility] Address [address] [place] [address] Care Team Providers Care Medical Data Analyst Name Role Phone KATHYESTHER VILLEGAS Unavailable PROBLEMS Type Condition ICD9-CM Code SQR18-DC Code Onset Dates Condition Status SNOMED Code Problem Primary osteoarthritis of both knees M17.0 Active 979909181 Problem MITCHELL treated with BiPAP G47.33 Active 15479233 Problem Nocturnal hypoxia G47.34 Active 141682143 Problem Chronic prescription opiate use Z79.891 Active 055838752 Problem Chronic systolic (congestive) heart failure I50.22 Active 918813724 Problem Acute right-sided low back pain with right-sided sciatica M54.41 Active 88052063 Problem Posttraumatic stress disorder F43.10 Active 22648552 Problem Severe major depression with psychotic features F32.3 Active 48224464 Problem Mood disorder F39 Active 35086304 Problem Mild episode of recurrent major depressive disorder F33.0 Active 285502313 Problem Type 2 diabetes mellitus with diabetic polyneuropathy E11.42 Active 209053825 Problem Pure hypercholesterolemia E78.0 Active 540927892 Problem Chronic pain syndrome G89.4 Active 992432379 Problem Tobacco abuse Z72.0 Active 058959654 Problem Obesity, morbid, BMI 40.0-49.9 E66.01 Active 844563283 Problem BMI 45.0-49.9, adult Z68.42 Active 203075157 Problem Macrocytosis D75.89 Active 443201380 Problem Major depressive disorder, recurrent episode, unspecified severity F33.9 Active 87135840 Problem Gastroesophageal reflux disease, esophagitis presence not specified K21.9 Active 756934008 Problem History of DVT (deep vein thrombosis) Z86.718 Active 759362007 Problem Essential hypertension I10 Active 61211374 Problem History of weight loss surgery Z98.84 Active 043604889 Problem PTSD (post-traumatic stress disorder) F43.10 Active 98574696 Problem Non-ischemic cardiomyopathy I42.9 Active 30165917 Problem Chronic obstructive pulmonary disease, unspecified COPD type J44.9 Active 18356019 ALLERGIES No Information ENCOUNTERS Encounter Location Date Diagnosis [facility] [facility] [id number] [place] [address] Sep, [facility] [place] [id number] [place] [address] July, Medicare annual wellness visit, initial Z00.00 [facility] [place] [id number] [place] [address] May, [place] [address] [address] May, BMI 45.0-49.9, adult Z68.42 ; Mood disorder F39 and Posttraumatic stress disorder F43.10 [place] [id number] [place] [address] May, [place] [id number] [place] [address] May, Primary osteoarthritis of both knees M17.0 and Chronic pain syndrome G89.4 [place] [id number] [place] [address] May, Mood disorder F39 [place] [id number] [place] [address] Apr, Type 2 diabetes mellitus with diabetic polyneuropathy E11.42 [facility] [place] [id number] [place] [address] Apr, [facility] [place] [id number] [place] [address] Apr, Primary osteoarthritis of both knees M17.0 and Chronic pain syndrome G89.4 [place] [id number] [place] [address] Apr, Mood disorder F39 [place] [id number] [place] [address] Mar, Mood disorder F39 and Posttraumatic stress disorder F43.10 [facility] [place] [id number] [place] [address] Mar, Primary osteoarthritis of both knees M17.0 and Chronic pain syndrome G89.4 [facility] [place] [id number] [place] [address] Feb, Primary osteoarthritis of both knees M17.0 and Chronic pain syndrome G89.4 [facility] [place] [id number] [place] [address] Feb, Mood disorder F39 [facility] [place] [id number] [place] [address] Jan, Type 2 diabetes mellitus with diabetic polyneuropathy E11.42 ; Primary osteoarthritis of both knees M17.0 ; Mood disorder F39 ; Obesity, morbid, BMI 40.0-49.9 E66.01 ; Chronic prescription opiate use Z79.891 ; Acute suppurative otitis media of both ears without spontaneous rupture of tympanic membranes, recurrence not specified H66.003 and BMI 45.0-49.9, adult Z68.42 [facility] [place] [id number] [place] [address] Jan, Primary osteoarthritis of both knees M17.0 and Chronic pain syndrome G89.4 [facility] [place] [address] [place] [address] Dec, Mood disorder F39 and Posttraumatic stress disorder F43.10 [facility] [place] [id number] [place] [address] Dec, Primary osteoarthritis of both knees M17.0 and Chronic pain syndrome G89.4 [facility] [place] [id number] [place] [address] 18 Nov, 2016 Chronic pain syndrome G89.4 [facility] [place] [id number] [place] [address] 15 Nov, 2016 Primary osteoarthritis of both knees M17.0 and Chronic pain syndrome G89.4 [facility] [place] [id number] [place] [address] 13 Nov, 2016 Type 2 diabetes mellitus with diabetic polyneuropathy E11.42 and Chronic pain syndrome G89.4 [facility] [place] [id number] [place] [address] 12 Nov, 2016 Posttraumatic stress disorder F43.10 and Mood disorder F39 [facility] [place] [id number] [place] [address] Oct, Chronic pain syndrome G89.4 [facility] [place] [id number] [place] [address] 16 Oct, 2016 Type 2 diabetes mellitus with diabetic polyneuropathy E11.42 ; BMI 45.0-49.9, adult Z68.42 ; Primary osteoarthritis of both knees M17.0 and Skin lesion L98.9 [facility] [place] [id number] [place] [address] Oct, Chronic pain syndrome G89.4 [facility] [place] [id number] [place] [address] Sep, Chronic pain syndrome G89.4 [facility] [place] [id number] [place] [address] Sep, [facility] [place] [id number] [place] [address] Sep, Chronic pain syndrome G89.4 [facility] [place] [id number] [place] [address] Aug, Chronic pain syndrome G89.4 [facility] [place] [id number] [place] [address] Aug, [facility] [place] [id number] [place] [address] Aug, Macrocytosis D75.89 and Pure hypercholesterolemia E78.0 [facility] [place] [id number] [place] [address] Aug, Pure hypercholesterolemia E78.0 [facility] [address] [address] Aug, Macrocytosis D75.89 [facility] [id number] [place] [address] Aug, Pure hypercholesterolemia E78.0 ; Type 2 diabetes mellitus with diabetic polyneuropathy E11.42 ; MITCHELL treated with BiPAP G47.33 and Chronic pain syndrome G89.4 [place] [id number] [place] [address] Aug, [place] [id number] [place] [address] Aug, Hemorrhoids, unspecified hemorrhoid type K64.9 [place] [id number] [place] [address] Aug, Chronic pain syndrome G89.4 ; Type 2 diabetes mellitus with diabetic polyneuropathy E11.42 ; Hemorrhoids, unspecified hemorrhoid type K64.9 ; Tobacco abuse Z72.0 and Primary osteoarthritis of both knees M17.0 [place] [id number] [place] [address] July, Chronic pain syndrome G89.4 [place] [id number] [place] [address] July, [place] [id number] [place] [address] Jun, Chronic pain syndrome G89.4 [place] [id number] [place] [address] Jun, Chronic pain syndrome G89.4 [place] [id number] [place] [address] Jun, Severe major depression with psychotic features F32.3 and Posttraumatic stress disorder F43.10 [place] [address] [address] Jun, Chronic pain syndrome G89.4 [facility] [place] [id number] [place] [address] Jun, [facility] [place] [id number] [place] [address] May, Chronic pain syndrome G89.4 [facility] [place] [id number] [place] [address] May, Tobacco abuse Z72.0 [facility] [place] [id number] [place] [address] May, [facility] [place] [id number] [place] [address] Apr, Chronic pain syndrome G89.4 [facility] [place] [id number] [place] [address] Apr, [facility] [place] [id number] [place] [address] Apr, Right foot pain M79.671 [facility] [place] [id number] [place] [address] Mar, Type 2 diabetes mellitus with diabetic polyneuropathy E11.42 ; MITCHELL treated with BiPAP G47.33 ; Pure hypercholesterolemia E78.0 ; Chronic pain syndrome G89.4 ; Tobacco abuse Z72.0 and Obesity, morbid, BMI 40.0-49.9 E66.01 [facility] [place] [address] [address] Mar, [facility] [place] [id number] [place] [address] Mar, [facility] [place] [id number] [place] [address] Mar, [facility] [place] [id number] [place] [address] Mar, [facility] [place] [address] [place] [address] Mar, [facility] [place] [id number] [place] [address] Mar, Severe major depression with psychotic features F32.3 and Posttraumatic stress disorder F43.10 [facility] [place] [id number] [place] [address] Mar, [facility] [place] [address] [facility] [id number] [place] [address] Feb, [facility] [place] [id number] [place] [address] Feb, [facility] [place] [id number] [place] [address] Jan, [facility] [place] [id number] [place] [address] Jan, [facility] [place] [id number] [place] [address] Dec, Posttraumatic stress disorder F43.10 and Severe major depression with psychotic features F32.3 [facility] [place] [address] [place] [address] Dec, Type 2 diabetes mellitus with diabetic polyneuropathy E11.42 ; Chronic pain syndrome G89.4 and Acute right-sided low back pain with right-sided sciatica M54.41 [facility] [place] [address] [place] [address] Dec, [facility] [place] [id number] [place] [address] Dec, [facility] [place] [id number] [address] Nov, [facility] [place] [id number] [place] [address] Nov, [facility] [place] [id number] [place] [address] Nov, [facility] [place] [id number] [place] [address] Oct, [facility] [place] [id number] [place] [address] Oct, [facility] [place] [id number] [place] [address] Sep, Dental examination Z01.20 [facility] [place] [id number] [place] [address] Sep, [facility] [place] [id number] [place] [address] Sep, Type 2 diabetes mellitus with diabetic polyneuropathy E11.42 ; Chronic pain syndrome G89.4 ; Chronic prescription opiate use Z79.891 ; Injury of right index finger, sequela S69.91XS and Anejaculation N50.8 [facility] [place] [id number] [place] [address] Aug, [facility] [place] [id number] [place] [address] Aug, [facility] [id number] [place] [address] Aug, Cellulitis of finger of right hand L03.011 [facility] [place] [id number] [place] [address] July, [facility] [place] [id number] [place] [address] July, [facility] [place] [id number] [place] [address] Jun, Onychomycosis B35.1 [facility] [place] [id number] [place] [address] Jun, Severe major depression with psychotic features F32.3 and Posttraumatic stress disorder F43.10 [facility] [place] [address] [place] [address] Jun, [facility] [place] [id number] [place] [address] Jun, [facility] [place] [id number] [place] [address] Jun, [facility] [place] [id number] [place] [address] May, Type 2 diabetes mellitus with diabetic polyneuropathy E11.42 [place] [id number] [place] [address] May, Type 2 diabetes mellitus with diabetic polyneuropathy E11.42 and Urinary hesitancy R39.11 [place] [id number] [place] [address] May, Type 2 diabetes mellitus with diabetic polyneuropathy E11.42 ; Left hip pain M25.552 and Benign prostatic hyperplasia with lower urinary tract symptoms, unspecified morphology N40.1 [place] [id number] [place] [address] May, [facility] [place] [id number] [place] [address] Apr, Severe major depression with psychotic features F32.3 and Posttraumatic stress disorder F43.10 [facility] [place] [id number] [place] [address] Apr, [facility] [place] [address], [place] [address] Mar, [facility] [place] [id number] [place] [address] Mar, Dysuria R30.0 and Urinary hesitancy R39.11 [facility] [place] [id number] [place] [address] Mar, Onychomycosis B35.1 [facility] [place] [address], [place] [address] Mar, [facility] [place] [id number] [place] [address] Feb, [facility] [place] [id number] [place] [address] Jan, [facility] [place] [id number] [place] [address] Jan, Posttraumatic stress disorder F43.10 and Severe major depression with psychotic features F32.3 [facility] [place] [id number] [place] [address] Jan, [facility] [place] [id number] [place] [address] Jan, Chronic pain syndrome G89.4 ; Type 2 diabetes mellitus with diabetic polyneuropathy E11.42 ; Decreased pedal pulses R09.89 and Paresthesia of both hands R20.2 [facility] [place] [id number] [place] [address] Dec, Posttraumatic stress disorder F43.10 and Severe major depression with psychotic features F32.3 [facility] [place] [address] [place] [address] Dec, [facility] [place] [id number] [place] [address] Dec, [facility] [place] [address], [place] [address] Dec, Onychomycosis B35.1 [facility] [place] [id number] [place] [address] Dec, [facility] [place] [id number] [place] [address] Dec, [facility] [place] [id number] [place] [address] Nov, [place] [id number] [place] [address] Oct, Depression, major, recurrent, moderate 296.32 and Posttraumatic stress disorder 309.81 [place] [id number] [place] [address] Oct, [place] [id number] [place] [address] Oct, [place] [id number] [place] [address] Oct, [place] [id number] [place] [address] Sep, Posttraumatic stress disorder 309.81 and Depression, major, recurrent, moderate 296.32 [place] [id number] [place] [address] Sep, [place] [address] [id number] [place] [id number] Sep, Chronic airway obstruction, not elsewhere classified [id number] [place] [address] Sep, Onychomycosis 110.1 and DM neuro manif type II 250.60 [place] [id number] [place] [address] Sep, Chronic pain 338.29 ; Chronic airway obstruction, not elsewhere classified 496 ; Osteoarthritis of knees, bilateral 715.96 and On potassium wasting diuretic therapy V58.69 [place] [id number] [place] [address] Sep, Insect bites 919.4 ; Sinusitis 473.9 and GERD (gastroesophageal reflux disease) 530.81 [place] [address] [place] [id number] [place] [address] Aug, Depression, major, recurrent, moderate 296.32 and Posttraumatic stress disorder 309.81 [place] [address] [facility] [id number] [address] Aug, [facility] [address] [facility] [id number] [place] [address] Aug, [facility] [address] [facility] [id number], [place] [address] Aug, [facility] [address] [id number] [address] July, Major depressive disorder, recurrent episode, moderate 296.32 and Posttraumatic stress disorder 309.81 [facility] [address] [facility] [id number] [place] [address] July, [facility] [address] [place] [address] [id number] [place] [address] July, [facility] [id number] [address] July, [facility] [id number] [place] [address] July, [facility] [id number] [place] [address] Jun, [facility] [id number] [place] [address] Jun, [facility] [id number], [place] [address] May, [facility] [address] [facility] [id number], [place] [address] May, [facility] [address] [facility] [id number] [place] [address] May, [facility] [address] [facility] [id number] [place] [address] May, [facility] [address] [id number] [address] May, [facility] [place] [facility] [address] [id number] [place] [address] May, [facility] [place] [facility] [address] [id number] [place] [address] May, [facility] [place] [facility] [address] [id number] [place] [address] May, [facility] [place] [facility] [address] [id number] [place] [address] May, [facility] [place] [facility] [address] [id number] [place] [address] Apr, 2014 [facility] [place] [facility] [address] [id number] [place] [address] Apr, 2014 [facility] [place] [facility] [address] [facility] [id number] [place] [address] Apr, 2014 [facility] [place] [facility] [address] [id number] [place] [address] Apr, 2014 [facility] [place] [facility] [address] [facility] [id number] [place] [address] Apr, [facility] [place] [facility] [address] [facility] [id number] [place] [address] Apr, [facility] [place] [facility] [address] [facility] [id number] [place] [address] Apr, [facility] [place] [facility] [address] [id number], [place] [address] Apr, 2014 [facility] [place] [facility] [address] [id number] [place] [address] Apr, [facility] [place] [facility] [address] [id number] [place] [address] Mar, [facility] [place] [facility] [address] [id number], [place] [address] Mar, [facility] [place] [facility] [address] [id number], [place] [address] Mar, [facility] [address] [id number] [place] [address] Mar, [facility] [place] [facility] [address] [id number] [place] [address] Mar, [facility] [place] [facility] [address] [id number] [place] [address] 15 Mar, 2014 [facility] [place] [facility] [address] [id number] [place] [address] 15 Mar, 2014 [facility] [place] [facility] [address] [id number] [place] [address] Mar, [facility] [place] [facility] [address] [id number] [place] [address] Mar, [facility] [place] [facility] [address] [id number], [place] [address] Mar, [facility] [place] [facility] [address] [id number] [place] [address] Mar, [facility] [place] [facility] [address] [id number] [place] [address] Mar, [facility] [place] [facility] [address] [id number] [place] [address] Mar, [facility] [place] [facility] [address] [id number], [place] [address] Mar, [facility] [place] [facility] [address] [id number], [place] [address] Mar, [facility] [place] [facility] [address] [id number], [place] [address] Mar, [facility] [place] [facility] [address] [id number], [place] [address] Mar, [facility] [place] [facility] [address] [id number], [place] [address] Mar, [facility] [place] [facility] [address] [id number] [place] [address] 16 Feb, 2014 [facility] [place] [facility] [address] [id number] [place] [address] 16 Feb, 2014 [facility] [place] [facility] [address] [id number] [place] [address] 15 Feb, 2014 [facility] [place] [facility] [address] [id number] [place] [address] 15 Feb, 2014 [facility] [place] [facility] [address] [id number] [place] [address] 15 Feb, 2014 [facility] [place] [facility] [address] [id number] [place] [address] Feb, [facility] [place] [facility] [address] [id number] [place] [address] Jan, [facility] [place] [facility] [address] [id number] [place] [address] Jan, [facility] [place] [facility] [address] [id number] [place] [address] Jan, [facility] [place] [facility] [address] [id number] [place] [address] Jan, [facility] [place] [facility] [address] [id number] [place] [address] Jan, [facility] [place] [facility] [address] [id number] [place] [address] Jan, [facility] [place] [facility] [address] [id number] [place] [address] Jan, [facility] [place] [facility] [address] [id number] [place] [address] Jan, [facility] [place] [facility] [address] [id number] [place] [address] Jan, [facility] [place] [facility] [address] [id number] [place] [address] Jan, [facility] [place] [facility] [address] [id number] [place] [address] Dec, [facility] [place] [facility] [address] [id number] [place] [address] Dec, [facility] [place] [facility] [address] [id number] [place] [address] Dec, [facility] [place] [facility] [address] [id number] [place] [address] Dec, [facility] [place] [facility] [address] [id number] [place] [address] Nov, [facility] [place] [facility] [address] [id number] [place] [address] Nov, [facility] [place] [facility] [address] [id number] [place] [address] Nov, [facility] [place] [facility] [address] [id number] [place] [address] Nov, [facility] [place] [facility] [address] [id number] [place] [address] Nov, [facility] [place] [facility] [address] [id number] [place] [address] Nov, [facility] [place] [facility] [address] [id number], [place] [address] Oct, [facility] [place] [facility] [address] [id number], [place] [address] Oct, [facility] [place] [facility] [address] [id number] [place] [address] Oct, [facility] [place] [facility] [address] [id number] [place] [address] Oct, [facility] [place] [facility] [address] [id number] [place] [address] Sep, [facility] [place] [facility] [address] [id number] [place] [address] Sep, [facility] [place] [facility] [address] [id number] [place] [address] Sep, [facility] [place] [facility] [address] [id number] [place] [address] Sep, [facility] [place] [facility] [address] [id number] [place] [address] Sep, [facility] [place] [facility] [address] [id number] [place] [address] Sep, [facility] [place] [facility] [address] [id number] [place] [address] July, [facility] [place] [facility] [address] [id number] [place] [address] July, [facility] [place] [facility] [address] [id number] [place] [address] July, [facility] [place] [facility] [address] [id number] [place] [address] July, [facility] [place] [facility] [address] [id number] [place] [address] Jun, [facility] [place] [facility] [address] [id number] [place] [address] Jun, [facility] [place] [facility] [address] [id number] [place] [address] Jun, [facility] [place] [facility] [address] [id number] [place] [address] Jun, [facility] [place] [facility] [address] [id number] [place] [address] Jun, [facility] [place] [facility] [address] [id number] [place] [address] Jun, [facility] [place] [facility] [address] [id number] [place] [address] May, [facility] [place] [facility] [address] [id number] [place] [address] May, [facility] [place] [facility] [address] [id number] [place] [address] Apr, [facility] [place] [facility] [address] [id number] [place] [address] Apr, [facility] [place] [facility] [address] [id number] [place] [address] Apr, [facility] [place] [facility] [address] [id number] [place] [address] Apr, [facility] [place] [facility] [address] [id number] [place] [address] Apr, [facility] [place] [facility] [address] [id number] [place] [address] Apr, [facility] [place] [facility] [address] [id number] [place] [address] Apr, [facility] [place] [facility] [address] [id number] [place] [address] Mar, [facility] [place] [facility] [address] [id number] [place] [address] Mar, [facility] [place] [facility] [address] [id number] [place] [address] Mar, [facility] [place] [facility] [address] [id number] [place] [address] Mar, [facility] [place] [facility] [address] [id number] [place] [address] Mar, [facility] [place] [facility] [address] [id number] [place] [address] Mar, [facility] [place] [facility] [address] [id number] [place] [address] Mar, [facility] [place] [facility] [address] [id number] [place] [address] 13 Mar, 2013 [facility] [address] [id number] [place] [address] Feb, [facility] [place] [facility] [address] [id number] [place] [address] Feb, [facility] [place] [facility] [address] [id number] [place] [address] Feb, [facility] [place] [facility] [address] [id number] [place] [address] Feb, [facility] [place] [facility] [address] [id number] [place] [address] Feb, [facility] [place] [facility] [address] [id number] [place] [address] Feb, [facility] [place] [facility] [address] [id number] [place] [address] Feb, [facility] [place] [facility] [address] [id number] [place] [address] Jan, [facility] [place] [facility] [address] [id number] [place] [address] Jan, [facility] [place] [facility] [address] [id number] [place] [address] Jan, [facility] [place] [facility] [address] [id number] [place] [address] Jan, [facility] [place] [facility] [address] [id number], [place] [address] Jan, [facility] [place] [facility] [address] [id number] [place] [address] Jan, [facility] [place] [facility] [address] [id number] [place] [id number] Jan, [facility] [place] [facility] [address] [id number] [place] [id number] Jan, [facility] [place] [facility] [address] [id number] [place] [address] Dec, 2012 [facility] [place] [facility] [address] [id number] [place] [address] Dec, 2012 [facility] [place] [facility] [address] [id number] [place] [address] Dec, 2012 [facility] [place] [facility] [address] [id number] [place] [address] Dec, 2012 [facility] [place] [facility] [address] [id number] [place] [address] Dec, 2012 [facility] [place] [facility] [address] [id number] [place] [address] Dec, 2012 [facility] [place] [facility] [address] [id number] [place] [address] Dec, [facility] [place] [facility] [address] [id number] [place] [address] Dec, [facility] [place] [facility] [address] [id number] [place] [address] 16 Dec, 2012 [facility] [place] [facility] [address] [id number] [place] [address] 04 Dec, 2012 [facility] [place] [facility] [address] [id number] [id number] 27 Nov, 2012 [facility] [place] [facility] [address] [facility] [id number] [id number] 27 Nov, 2012 [facility] [place] [facility] [address] [id number], [place] [address] 24 Nov, 2012 [facility] [place] [facility] [address] [id number] [place] [address] 20 Sep, 2012 [facility] [place] [facility] [address] [id number] [place] [address] 19 Nov, 2012 [facility] [place] [facility] [address] [id number] [place] [address] Nov, [facility] [place] [facility] [address] [id number] [place] [address] Nov, [facility] [place] [facility] [address] [id number] [place] [address] Nov, [facility] [place] [facility] [address] [id number] [place] [address] Oct, [facility] [place] [facility] [address] [id number] [place] [address] Oct, [facility] [place] [facility] [address] [id number] [place] [address] Oct, [facility] [place] [facility] [address] [id number] [place] [address] Sep, [facility] [place] [facility] [address] [id number] [place] [address] Sep, [facility] [place] [facility] [address] [id number] [place] [address] Sep, [facility] [place] [facility] [address] [id number] [place] [address] Sep, [facility] [place] [facility] [address] [id number] [place] [address] Sep, [facility] [place] [facility] [address] [id number] [place] [address] Aug, [facility] [place] [facility] [address] [id number], [place] [address] Aug, [facility] [place] [facility] [address] [id number] [place] [address] Aug, [facility] [place] [facility] [address] [id number] [place] [address] Aug, [facility] [place] [facility] [address] [id number], [place] [address] Aug, [facility] [place] [facility] [address] [id number], [place] [address] Aug, [facility] [address] [id number] [place] [address] July, [facility] [address] [id number] [place] [address] July, [facility] [address] [id number] [place] [address] July, [facility] [address] [id number] [place] [address] July, [facility] [address] [id number] [place] [address] July, [facility] [address] [id number] [place] [address] July, [facility] [address] [id number] [place] [address] Jun, [facility] [address] [id number] [place] [address] Jun, [facility] [address] [id number] [place] [address] Jun, [facility] [address] [id number] [place] [address] Jun, [facility] [address] [id number] [place] [address] May, [facility] [address] [id number] [place] [address] May, [facility] [address] [id number] [place] [address] May, [facility] [place] [facility] [address] [id number] [place] [address] Apr, [facility] [address] [id number] [place] [address] Mar, [facility] [place] [facility] [address] [id number] [place] [address] 18 Mar, 2012 [facility] [place] [facility] [address] [id number] [place] [address] 17 Mar, 2012 [facility] [place] [facility] [address] [id number] [place] [address] 16 Mar, 2012 [facility] [place] [facility] [address] [id number] [place] [address] 15 Mar, 2012 [facility] [place] [facility] [address] [id number] [place] [address] 31 Feb, 2012 [facility] [place] [facility] [address] [id number] [place] [address] Feb, [facility] [place] [facility] [address] [id number] [place] [address] 17 Feb, 2012 [facility] [place] [facility] [address] [id number] [place] [address] 17 Feb, 2012 [facility] [place] [facility] [address] [id number] [place] [address] Jan, [facility] [place] [facility] [address] [id number] [place] [address] Jan, [facility] [place] [facility] [address] [id number] [place] [address] Jan, [facility] [place] [facility] [address] [id number] [place] [address] Jan, [facility] [place] [facility] [address] [id number] [place] [address] Dec, [facility] [place] [facility] [address] [id number] [place] [address] Dec, [facility] [place] [facility] [address] [id number] [place] [address] Nov, [facility] [place] [facility] [address] [id number] [place] [address] Oct, [facility] [address] [id number] [place] [address] Oct, [facility] [address] [id number] [place] [address] Oct, [facility] [address] [id number] [place] [address] Oct, [facility] [address] [id number] [place] [address] Oct, [facility] [address] [id number] [place] [address] Sep, [facility] [address] [id number] [place] [address] Sep, [facility] [address] [id number] [place] [address] Aug, [facility] [address] [place] [id number] Aug, [facility] [address] [id number] [place] [address] Aug, [facility] [address] [id number] [place] [address] July, [facility] [address] [id number] [place] [address] July, [facility] [address] [id number] [place] [address] Jun, [facility] [address] [id number] [place] [address] Jun, [facility] [address] [id number] [place] [address] 16 Jun, 2011 [facility] [address] [id number] [place] [address] Jun, [facility] [address] [id number] [place] [address] 15 Apr, 2011 [facility] [address] [id number] [place] [address] 15 Apr, 2011 [facility] [place] [facility] [address] [id number] [place] [address] 10 Apr, 2011 [facility] [address] [id number] [place] [address] Mar, [facility] [place] [facility] [address] [id number] [place] [address] Mar, [facility] [address] [id number] [place] [address] Mar, [facility] [address] [id number] [place] [address] Mar, [facility] [address] [id number] [place] [address] Mar, [facility] [address] [id number] [place] [address] Jan, [facility] [address] [id number] [place] [address] Jan, [facility] [place] [facility] [address] [facility] [id number] [place] [address] Jan, [facility] [address] [id number] [place] [address] Mar, [facility] [place] [facility] [address] [id number] [place] [address] Mar, [facility] [place] [facility] [address] [id number] [place] [address] Feb, [facility] [place] [facility] [address] [id number] [place] [address] 16 Feb, 2010 [facility] [place] [facility] [address] [facility] [id number] [place] [address] 16 Feb, 2010 [facility] [place] [facility] [id number] [address] 17 Jan, 2010 [facility] [place] [id number] [place] [address] Jan, [facility] [place] [id number] [place] [address] Dec, [facility] [place] [id number] [place] [address] Dec, [facility] [place] [id number] [place] [address] May, [facility] [place] [id number] [place] [address] Apr, [facility] [place] [id number] [place] [address] Feb, [facility] [place] [id number] [place] [address] Feb, [facility] [place] [id number] [place] [address] Jan, [facility] [place] [id number] [place] [address] Jan, [facility] [place] [id number] [place] [address] Jan, [facility] [place] [id number] [place] [address] Jan, [facility] [place] [id number] [address] Jan, IMMUNIZATIONS No Known Immunizations SOCIAL HISTORY Never Assessed REASON FOR VISIT Lab (walk-in) [facility] PLAN OF CARE VITAL SIGNS MEDICATIONS Unknown Medications RESULTS Name Result Date Reference Range VITAMIN B12 2016-08-20 Vitamin B12 312 [id number] FOLATE (FOLIC ACID) 2016-08-20 Folate (Folic Acid), Serum 4.8 >3.0 LIPID PANEL 2016-08-20 Cholesterol, Total 167 100-199 Triglycerides 138 0-149 HDL Cholesterol 34 >39 VLDL Cholesterol Nicholas 28 5-40 LDL Cholesterol Calc 105 0-99 CMP 2016-08-20 Glucose, Serum 104 65-99 BUN 11 6-24 Creatinine, Serum 0.86 0.76-1.27 eGFR If NonAfricn Am 105 >59 eGFR If Africn Am 121 >59 BUN/Creatinine Ratio 13 9-20 Sodium, Serum 137 134-144 Potassium, Serum 4.5 3.5-5.2 Chloride, Serum 98 96-106 Carbon Dioxide, Total 22 18-29 Calcium, Serum 8.9 8.7-10.2 Protein, Total, Serum 6.7 6.0-8.5 Albumin, Serum 3.8 3.5-5.5 Globulin, Total 2.9 1.5-4.5 A/G Ratio 1.3 1.2-2.2 Bilirubin, Total 0.5 0.0-1.2 Alkaline Phosphatase, S 78 39-117 AST (SGOT) 21 0-40 ALT (SGPT) 21 0-44 PROCEDURES Procedure Date Ordered Result Body Site LAB [facility] B[email or web address] August 20, 2016 VENIPUNCT, ROUTINE* August 20, 2016 INSTRUCTIONS MEDICATIONS ADMINISTERED No Known Medications [...]
--- OUTSIDE RECORDS SUMMARY | 2018-10-04 07:21 | XMS REPORT ---
Author Author KTAHY ESTHER [facility] Address [address] [place] [address] Care Team Providers Care Security Coordinator Name Role Phone KATHYESTHER VILLEGAS Unavailable PROBLEMS Type Condition ICD9-CM Code RSN29-CB Code Onset Dates Condition Status SNOMED Code Problem Primary osteoarthritis of both knees M17.0 Active 500794679 Problem MITCHELL treated with BiPAP G47.33 Active 13062587 Problem Nocturnal hypoxia G47.34 Active 029582429 Problem Chronic prescription opiate use Z79.891 Active 471732228 Problem Chronic systolic (congestive) heart failure I50.22 Active 507448171 Problem Acute right-sided low back pain with right-sided sciatica M54.41 Active 07204531 Problem Posttraumatic stress disorder F43.10 Active 27521863 Problem Severe major depression with psychotic features F32.3 Active 59068055 Problem Mood disorder F39 Active 78660846 Problem Mild episode of recurrent major depressive disorder F33.0 Active 451580399 Problem Type 2 diabetes mellitus with diabetic polyneuropathy E11.42 Active 492438775 Problem Pure hypercholesterolemia E78.0 Active 934123206 Problem Chronic pain syndrome G89.4 Active 680792492 Problem Tobacco abuse Z72.0 Active 838790547 Problem Obesity, morbid, BMI 40.0-49.9 E66.01 Active 465500847 Problem BMI 45.0-49.9, adult Z68.42 Active 541373153 Problem Macrocytosis D75.89 Active 711226606 Problem Major depressive disorder, recurrent episode, unspecified severity F33.9 Active 59736350 Problem Gastroesophageal reflux disease, esophagitis presence not specified K21.9 Active 634465896 Problem History of DVT (deep vein thrombosis) Z86.718 Active 552601001 Problem Essential hypertension I10 Active 05480023 Problem History of weight loss surgery Z98.84 Active 276517956 Problem PTSD (post-traumatic stress disorder) F43.10 Active 37376919 Problem Non-ischemic cardiomyopathy I42.9 Active 88483869 Problem Chronic obstructive pulmonary disease, unspecified COPD type J44.9 Active 80777171 ALLERGIES No Information ENCOUNTERS Encounter Location Date Diagnosis [place] [id number] [place] [address] Sep, [facility] [id number] [place] [address] July, Medicare annual wellness visit, initial Z00.00 [facility] [id number] [place] [address] May, [place] [address] [address] May, BMI 45.0-49.9, adult Z68.42 ; Mood disorder F39 and Posttraumatic stress disorder F43.10 [place] [id number] [place] [address] May, [place] [id number] [place] [address] May, Primary osteoarthritis of both knees M17.0 and Chronic pain syndrome G89.4 [place] [id number] [place] [address] May, Mood disorder F39 [place] [id number] [place] [address] Apr, Type 2 diabetes mellitus with diabetic polyneuropathy E11.42 [facility] [id number] [place] [address] Apr, [facility] [id number] [place] [address] Apr, Primary osteoarthritis of both knees M17.0 and Chronic pain syndrome G89.4 [place] [id number] [place] [address] Apr, Mood disorder F39 [place] [id number] [place] [address] Mar, Mood disorder F39 and Posttraumatic stress disorder F43.10 [facility] [id number] [place] [address] Mar, Primary osteoarthritis of both knees M17.0 and Chronic pain syndrome G89.4 [facility] [address] [place] [address] Feb, Primary osteoarthritis of both knees M17.0 and Chronic pain syndrome G89.4 [facility] [address] [place] [address] Feb, Mood disorder F39 [facility] [id number] [place] [address] Jan, Type 2 diabetes mellitus with diabetic polyneuropathy E11.42 ; Primary osteoarthritis of both knees M17.0 ; Mood disorder F39 ; Obesity, morbid, BMI 40.0-49.9 E66.01 ; Chronic prescription opiate use Z79.891 ; Acute suppurative otitis media of both ears without spontaneous rupture of tympanic membranes, recurrence not specified H66.003 and BMI 45.0-49.9, adult Z68.42 [facility] [id number] [place] [address] Jan, Primary osteoarthritis of both knees M17.0 and Chronic pain syndrome G89.4 [facility] [address] [place] [address] Dec, Mood disorder F39 and Posttraumatic stress disorder F43.10 [facility] [address] [place] [address] Dec, Primary osteoarthritis of both knees M17.0 and Chronic pain syndrome G89.4 [facility] [address] [place] [address] 18 Nov, 2016 Chronic pain syndrome G89.4 [facility] [id number] [place] [address] 15 Nov, 2016 Primary osteoarthritis of both knees M17.0 and Chronic pain syndrome G89.4 [facility] [id number] [place] [address] 13 Nov, 2016 Type 2 diabetes mellitus with diabetic polyneuropathy E11.42 and Chronic pain syndrome G89.4 [facility] [id number] [place] [address] 12 Nov, 2016 Posttraumatic stress disorder F43.10 and Mood disorder F39 [facility] [id number] [place] [address] Oct, Chronic pain syndrome G89.4 [facility] [id number] [place] [address] 16 Oct, 2016 Type 2 diabetes mellitus with diabetic polyneuropathy E11.42 ; BMI 45.0-49.9, adult Z68.42 ; Primary osteoarthritis of both knees M17.0 and Skin lesion L98.9 [facility] [id number] [place] [address] Oct, Chronic pain syndrome G89.4 [facility] [id number] [place] [address] Sep, Chronic pain syndrome G89.4 [facility] [id number] [place] [address] Sep, [facility] [id number] [place] [address] Sep, Chronic pain syndrome G89.4 [facility] [address] [place] [address] Aug, Chronic pain syndrome G89.4 [facility] [id number] [place] [address] Aug, [facility] [id number] [place] [address] Aug, Macrocytosis D75.89 and Pure hypercholesterolemia E78.0 [facility] [id number] [place] [address] Aug, Pure hypercholesterolemia E78.0 [place] [address] [address] Aug, Macrocytosis D75.89 [place] [id number] [place] [address] Aug, Pure hypercholesterolemia E78.0 ; Type 2 diabetes mellitus with diabetic polyneuropathy E11.42 ; MITCHELL treated with BiPAP G47.33 and Chronic pain syndrome G89.4 [place] [id number] [place] [address] Aug, [place] [id number] [place] [address] Aug, Hemorrhoids, unspecified hemorrhoid type K64.9 [place] [id number] [place] [address] Aug, Chronic pain syndrome G89.4 ; Type 2 diabetes mellitus with diabetic polyneuropathy E11.42 ; Hemorrhoids, unspecified hemorrhoid type K64.9 ; Tobacco abuse Z72.0 and Primary osteoarthritis of both knees M17.0 [place] [id number] [place] [address] July, Chronic pain syndrome G89.4 [place] [id number] [place] [address] July, [place] [id number] [place] [address] Jun, Chronic pain syndrome G89.4 [place] [id number] [place] [address] Jun, Chronic pain syndrome G89.4 [place] [id number] [place] [address] Jun, Severe major depression with psychotic features F32.3 and Posttraumatic stress disorder F43.10 [place] [address] [address] Jun, Chronic pain syndrome G89.4 [facility] [id number] [place] [address] Jun, [facility] [address] [place] [address] May, Chronic pain syndrome G89.4 [facility] [id number] [place] [address] May, Tobacco abuse Z72.0 [facility] [id number] [place] [address] May, [facility] [id number] [place] [address] Apr, Chronic pain syndrome G89.4 [facility] [id number] [place] [address] Apr, [facility] [id number] [place] [address] Apr, Right foot pain M79.671 [facility] [address] [place] [address] Mar, Type 2 diabetes mellitus with diabetic polyneuropathy E11.42 ; MITCHELL treated with BiPAP G47.33 ; Pure hypercholesterolemia E78.0 ; Chronic pain syndrome G89.4 ; Tobacco abuse Z72.0 and Obesity, morbid, BMI 40.0-49.9 E66.01 [facility] [address] [address] Mar, [facility] [id number] [place] [address] Mar, [facility] [id number] [place] [address] Mar, [facility] [id number] [place] [address] Mar, [facility] [address] [address] Mar, [facility] [address] [place] [address] Mar, Severe major depression with psychotic features F32.3 and Posttraumatic stress disorder F43.10 [facility] [address] [place] [address] Mar, [facility] [address] [facility] [id number] [place] [address] Feb, [facility] [id number] [place] [address] Feb, [facility] [id number] [place] [address] Jan, [facility] [id number] [place] [address] Jan, [facility] [address] [place] [address] Dec, Posttraumatic stress disorder F43.10 and Severe major depression with psychotic features F32.3 [facility] [address] [address] Dec, Type 2 diabetes mellitus with diabetic polyneuropathy E11.42 ; Chronic pain syndrome G89.4 and Acute right-sided low back pain with right-sided sciatica M54.41 [facility] [address] [address] Dec, [facility] [id number] [place] [address] Dec, [facility] [id number] [address] Nov, [facility] [address] [place] [address] Nov, [facility] [address] [place] [address] Nov, [facility] [id number] [place] [address] Oct, [facility] [id number] [place] [address] Oct, [facility] [id number] [place] [address] Sep, Dental examination Z01.20 [facility] [id number] [place] [address] Sep, [facility] [id number] [place] [address] Sep, Type 2 diabetes mellitus with diabetic polyneuropathy E11.42 ; Chronic pain syndrome G89.4 ; Chronic prescription opiate use Z79.891 ; Injury of right index finger, sequela S69.91XS and Anejaculation N50.8 [facility] [id number] [place] [address] Aug, [facility] [id number] [place] [address] Aug, [facility] [address] [place] [address] Aug, Cellulitis of finger of right hand L03.011 [facility] [address] [place] [address] July, [facility] [address] [place] [address] July, [facility] [id number] [place] [address] Jun, Onychomycosis B35.1 [facility] [address] [place] [address] Jun, Severe major depression with psychotic features F32.3 and Posttraumatic stress disorder F43.10 [facility] [address], [place] [address] Jun, [facility] [id number] [place] [address] Jun, [facility] [address] [place] [address] Jun, [facility] [id number] [place] [address] May, Type 2 diabetes mellitus with diabetic polyneuropathy E11.42 [place] [id number] [place] [address] May, Type 2 diabetes mellitus with diabetic polyneuropathy E11.42 and Urinary hesitancy R39.11 [place] [id number] [place] [address] May, Type 2 diabetes mellitus with diabetic polyneuropathy E11.42 ; Left hip pain M25.552 and Benign prostatic hyperplasia with lower urinary tract symptoms, unspecified morphology N40.1 [place] [id number] [place] [address] May, [facility] [address] [place] [address] Apr, Severe major depression with psychotic features F32.3 and Posttraumatic stress disorder F43.10 [facility] [address] [place] [address] Apr, [facility] [address], [place] [address] Mar, [facility] [id number] [place] [address] Mar, Dysuria R30.0 and Urinary hesitancy R39.11 [facility] [address] [place] [address] Mar, Onychomycosis B35.1 [facility] [address], [place] [address] Mar, [facility] [address] [place] [address] Feb, [facility] [id number] [place] [address] Jan, [facility] [id number] [place] [address] Jan, Posttraumatic stress disorder F43.10 and Severe major depression with psychotic features F32.3 [facility] [id number] [place] [address] Jan, [facility] [id number] [place] [address] Jan, Chronic pain syndrome G89.4 ; Type 2 diabetes mellitus with diabetic polyneuropathy E11.42 ; Decreased pedal pulses R09.89 and Paresthesia of both hands R20.2 [facility] [address] [place] [address] Dec, Posttraumatic stress disorder F43.10 and Severe major depression with psychotic features F32.3 [facility] [address], [place] [address] Dec, [facility] [id number] [place] [address] Dec, [facility] [address], [place] [address] Dec, Onychomycosis B35.1 [facility] [id number] [place] [address] Dec, [facility] [address] [place] [address] Dec, [facility] [id number] [place] [address] Nov, [place] [address] [place] [address] Oct, Depression, major, recurrent, moderate 296.32 and Posttraumatic stress disorder 309.81 [place] [id number] [place] [address] Oct, [place] [id number] [place] [address] Oct, [place] [id number] [place] [address] Oct, [place] [id number] [place] [address] Sep, Posttraumatic stress disorder 309.81 and Depression, major, recurrent, moderate 296.32 [place] [id number] [place] [address] Sep, [place] [id number] [place] [address] Sep, Chronic airway obstruction, not elsewhere classified [id number] [place] [address] Sep, Onychomycosis 110.1 and DM neuro manif type II 250.[address] [place] [id number] [place] [address] Sep, Chronic pain 338.29 ; Chronic airway obstruction, not elsewhere classified 496 ; Osteoarthritis of knees, bilateral 715.96 and On potassium wasting diuretic therapy V58.69 [place] [address] [place] [address] Sep, Insect bites 919.4 ; Sinusitis 473.9 and GERD (gastroesophageal reflux disease) 530.81 [place] [id number] [place] [address] Aug, Depression, major, recurrent, moderate 296.32 and Posttraumatic stress disorder 309.81 [place] [address] [facility] [id number], [place] [address] Aug, [facility] [address] [facility] [id number] [place] [address] Aug, [facility] [address] [facility] [id number], [place] [address] Aug, [facility] [id number], [place] [address] July, Major depressive disorder, recurrent episode, moderate 296.32 and Posttraumatic stress disorder 309.81 [facility] [address] [facility] [id number] [place] [address] July, [facility] [id number] [place] [address] July, [facility] [address], [place] [address] July, [facility] [address] [place] [address] July, [facility] [address] [place] [address] Jun, [facility] [address] [place] [address] Jun, [facility] [address], [place] [address] May, [facility] [address] [facility] [id number] [address] May, [facility] [address] [facility] [id number] [place] [address] May, [facility] [address] [facility] [id number] [place] [address] May, [facility] [id number] [place] [address] May, [facility] [place] [facility] [address] [id number] [place] [address] May, [facility] [place] [facility] [address] [id number] [place] [address] May, [facility] [place] [facility] [address] [id number] [place] [address] May, [facility] [place] [facility] [address] [id number] [place] [address] May, [facility] [place] [facility] [address] [id number] [place] [address] Apr, 2014 [facility] [place] [facility] [address] [id number] [place] [address] Apr, 2014 [facility] [place] [facility] [address] [facility] [id number] [place] [address] Apr, 2014 [facility] [place] [facility] [address] [id number] [place] [address] Apr, 2014 [facility] [place] [facility] [address] [facility] [id number] [place] [address] Apr, [facility] [place] [facility] [address] [facility] [id number] [place] [address] Apr, [facility] [place] [facility] [address] [facility] [id number] [place] [address] Apr, [facility] [place] [facility] [address] [id number], [place] [address] Apr, 2014 [facility] [place] [facility] [address] [id number] [place] [address] Apr, [facility] [place] [facility] [address] [id number] [place] [address] Mar, [facility] [place] [facility] [address] [id number], [place] [address] Mar, [facility] [place] [facility] [address] [id number], [place] [address] Mar, [facility] [address] [id number] [place] [address] Mar, [facility] [place] [facility] [address] [id number] [place] [address] Mar, [facility] [place] [facility] [address] [id number] [place] [address] 15 Mar, 2014 [facility] [place] [facility] [address] [id number] [place] [address] 15 Mar, 2014 [facility] [place] [facility] [address] [id number] [place] [address] Mar, [facility] [place] [facility] [address] [id number] [place] [address] Mar, [facility] [place] [facility] [address] [id number], [place] [address] Mar, [facility] [place] [facility] [address] [id number] [place] [address] Mar, [facility] [place] [facility] [address] [id number] [place] [address] Mar, [facility] [place] [facility] [address] [id number] [place] [address] Mar, [facility] [place] [facility] [address] [id number], [place] [address] Mar, [facility] [place] [facility] [address] [id number], [place] [address] Mar, [facility] [place] [facility] [address] [id number], [place] [address] Mar, [facility] [place] [facility] [address] [id number], [place] [address] Mar, [facility] [place] [facility] [address] [id number], [place] [address] Mar, [facility] [place] [facility] [address] [id number] [place] [address] 16 Feb, 2014 [facility] [place] [facility] [address] [id number] [place] [address] 16 Feb, 2014 [facility] [place] [facility] [address] [id number] [place] [address] 15 Feb, 2014 [facility] [place] [facility] [address] [id number] [place] [address] 15 Feb, 2014 [facility] [place] [facility] [address] [id number] [place] [address] 15 Feb, 2014 [facility] [place] [facility] [address] [id number] [place] [address] Feb, [facility] [place] [facility] [address] [id number] [place] [address] Jan, [facility] [place] [facility] [address] [id number] [place] [address] Jan, [facility] [place] [facility] [address] [id number] [place] [address] Jan, [facility] [place] [facility] [address] [address] [id number] [place] [address] Jan, [facility] [place] [facility] [address] [id number] [place] [address] Jan, [facility] [place] [facility] [address] [id number] [place] [address] Jan, [facility] [place] [facility] [address] [id number] [place] [address] Jan, [facility] [place] [facility] [address] [id number] [place] [address] Jan, [facility] [place] [facility] [address] [id number] [place] [address] Jan, [facility] [place] [facility] [address] [id number] [place] [address] Jan, [facility] [place] [facility] [address] [id number] [place] [address] Dec, [facility] [place] [facility] [address] [id number] [place] [address] Dec, [facility] [place] [facility] [address] [id number] [place] [address] Dec, [facility] [place] [facility] [address] [id number] [place] [address] Dec, [facility] [place] [facility] [address] [id number] [place] [address] Nov, [facility] [place] [facility] [address] [id number] [place] [address] Nov, [facility] [place] [facility] [address] [id number] [place] [address] Nov, [facility] [place] [facility] [address] [id number] [place] [address] Nov, [facility] [place] [facility] [address] [id number] [place] [address] Nov, [facility] [place] [facility] [address] [id number] [place] [address] Nov, [facility] [place] [facility] [address] [id number], [place] [address] Oct, [facility] [place] [facility] [address] [id number], [place] [address] Oct, [facility] [place] [facility] [address] [id number] [place] [address] Oct, [facility] [place] [facility] [address] [id number] [place] [address] Oct, [facility] [place] [facility] [address] [id number] [place] [address] Sep, [facility] [place] [facility] [address] [id number] [place] [address] Sep, [facility] [place] [facility] [address] [id number] [place] [address] Sep, [facility] [place] [facility] [address] [id number] [place] [address] Sep, [facility] [place] [facility] [address] [id number] [place] [address] Sep, [facility] [place] [facility] [address] [id number] [place] [address] Sep, [facility] [place] [facility] [address] [id number] [place] [address] July, [facility] [place] [facility] [address] [id number] [place] [address] July, [facility] [place] [facility] [address] [id number] [place] [address] July, [facility] [place] [facility] [address] [id number] [place] [address] July, [facility] [place] [facility] [address] [id number] [place] [address] Jun, [facility] [place] [facility] [address] [id number] [place] [address] Jun, [facility] [place] [facility] [address] [id number] [place] [address] Jun, [facility] [place] [facility] [address] [id number] [place] [address] Jun, [facility] [place] [facility] [address] [id number] [place] [address] Jun, [facility] [place] [facility] [address] [id number] [place] [address] Jun, [facility] [place] [facility] [address] [id number] [place] [address] May, [facility] [place] [facility] [address] [id number] [place] [address] May, [facility] [place] [facility] [address] [id number] [place] [address] Apr, [facility] [place] [facility] [address] [id number] [place] [address] Apr, [facility] [place] [facility] [address] [id number] [place] [address] Apr, [facility] [place] [facility] [address] [id number] [place] [address] Apr, [facility] [place] [facility] [address] [id number] [place] [address] Apr, [facility] [place] [facility] [address] [id number] [place] [address] Apr, [facility] [place] [facility] [address] [id number] [place] [address] Apr, [facility] [place] [facility] [address] [id number] [place] [address] Mar, [facility] [place] [facility] [address] [id number] [place] [address] Mar, [facility] [place] [facility] [address] [id number] [place] [address] Mar, [facility] [place] [facility] [address] [id number] [place] [address] Mar, [facility] [place] [facility] [address] [id number] [place] [address] Mar, [facility] [place] [facility] [address] [id number] [place] [address] Mar, [facility] [place] [facility] [address] [id number] [place] [address] Mar, [facility] [place] [facility] [address] [id number] [place] [address] 13 Mar, 2013 [facility] [address] [id number] [place] [address] Feb, [facility] [place] [facility] [address] [id number] [place] [address] Feb, [facility] [place] [facility] [address] [id number] [place] [address] Feb, [facility] [place] [facility] [address] [id number] [place] [address] Feb, [facility] [place] [facility] [address] [id number] [place] [address] Feb, [facility] [place] [facility] [address] [id number] [place] [address] Feb, [facility] [place] [facility] [address] [id number] [place] [address] Feb, [facility] [place] [facility] [address] [id number] [place] [address] Jan, [facility] [place] [facility] [address] [id number] [place] [address] Jan, [facility] [place] [facility] [address] [id number] [place] [address] Jan, [facility] [place] [facility] [address] [id number] [place] [address] Jan, [facility] [place] [facility] [address] [id number], [place] [address] Jan, [facility] [place] [facility] [address] [id number] [place] [address] Jan, [facility] [place] [facility] [address] [id number] [place] [id number] Jan, [facility] [place] [facility] [address] [id number] [place] [id number] Jan, [facility] [place] [facility] [address] [id number] [place] [address] Dec, 2012 [facility] [place] [facility] [address] [id number] [place] [address] Dec, 2012 [facility] [place] [facility] [address] [id number] [place] [address] Dec, 2012 [facility] [place] [facility] [address] [id number] [place] [address] Dec, 2012 [facility] [place] [facility] [address] [id number] [place] [address] Dec, 2012 [facility] [place] [facility] [address] [id number] [place] [address] Dec, 2012 [facility] [place] [facility] [address] [id number] [place] [address] Dec, [facility] [place] [facility] [address] [id number] [place] [address] Dec, [facility] [place] [facility] [address] [id number] [place] [address] 16 Dec, 2012 [facility] [place] [facility] [address] [id number] [place] [address] 04 Dec, 2012 [facility] [place] [facility] [address] [id number] [id number] 27 Nov, 2012 [facility] [place] [facility] [address] [facility] [id number] [id number] 27 Nov, 2012 [facility] [place] [facility] [address] [id number], [place] [address] 24 Nov, 2012 [facility] [place] [facility] [address] [id number] [place] [address] 20 Sep, 2012 [facility] [place] [facility] [address] [id number] [place] [address] 19 Nov, 2012 [facility] [place] [facility] [address] [id number] [place] [address] Nov, [facility] [place] [facility] [address] [id number] [place] [address] Nov, [facility] [place] [facility] [address] [id number] [place] [address] Nov, [facility] [place] [facility] [address] [id number] [place] [address] Oct, [facility] [place] [facility] [address] [id number] [place] [address] Oct, [facility] [place] [facility] [address] [id number] [place] [address] Oct, [facility] [place] [facility] [address] [id number] [place] [address] Sep, [facility] [place] [facility] [address] [id number] [place] [address] Sep, [facility] [place] [facility] [address] [id number] [place] [address] Sep, [facility] [place] [facility] [address] [id number] [place] [address] Sep, [facility] [place] [facility] [address] [id number] [place] [address] Sep, [facility] [place] [facility] [address] [id number] [place] [address] Aug, [facility] [place] [facility] [address] [id number], [place] [address] Aug, [facility] [place] [facility] [address] [id number] [place] [address] Aug, [facility] [place] [facility] [address] [id number] [place] [address] Aug, [facility] [place] [facility] [address] [id number], [place] [address] Aug, [facility] [place] [facility] [address] [id number], [place] [address] Aug, [facility] [address] [id number] [place] [address] July, [facility] [address] [id number] [place] [address] July, [facility] [address] [id number] [place] [address] July, [facility] [address] [id number] [place] [address] July, [facility] [address] [id number] [place] [address] July, [facility] [address] [id number] [place] [address] July, [facility] [address] [id number] [place] [address] Jun, [facility] [address] [id number] [place] [address] Jun, [facility] [address] [id number] [place] [address] Jun, [facility] [address] [id number] [place] [address] Jun, [facility] [address] [id number] [place] [address] May, [facility] [address] [id number] [place] [address] May, [facility] [address] [id number] [place] [address] May, [facility] [place] [facility] [address] [id number] [place] [address] Apr, [facility] [address] [id number] [place] [address] Mar, [facility] [place] [facility] [address] [id number] [place] [address] 18 Mar, 2012 [facility] [place] [facility] [address] [id number] [place] [address] 17 Mar, 2012 [facility] [place] [facility] [address] [id number] [place] [address] 16 Mar, 2012 [facility] [place] [facility] [address] [id number] [place] [address] 15 Mar, 2012 [facility] [place] [facility] [address] [id number] [place] [address] 31 Feb, 2012 [facility] [place] [facility] [address] [id number] [place] [address] Feb, [facility] [place] [facility] [address] [id number] [place] [address] 17 Feb, 2012 [facility] [place] [facility] [address] [id number] [place] [address] 17 Feb, 2012 [facility] [place] [facility] [address] [id number] [place] [address] Jan, [facility] [place] [facility] [address] [id number] [place] [address] Jan, [facility] [place] [facility] [address] [id number] [place] [address] Jan, [facility] [place] [facility] [address] [id number] [place] [address] Jan, [facility] [place] [facility] [address] [id number] [place] [address] Dec, [facility] [place] [facility] [address] [id number] [place] [address] Dec, [facility] [place] [facility] [address] [id number] [place] [address] Nov, [facility] [place] [facility] [address] [id number] [place] [address] Oct, [facility] [address] [id number] [place] [address] Oct, [facility] [address] [id number] [place] [address] Oct, [facility] [address] [id number] [place] [address] Oct, [facility] [address] [id number] [place] [address] Oct, [facility] [address] [id number] [place] [address] Sep, [facility] [address] [id number] [place] [address] Sep, [facility] [address] [id number] [place] [address] Aug, [facility] [address] [place] [id number] Aug, [facility] [address] [id number] [place] [address] Aug, [facility] [address] [id number] [place] [address] July, [facility] [address] [id number] [place] [address] July, [facility] [address] [id number] [place] [address] Jun, [facility] [address] [id number] [place] [address] Jun, [facility] [address] [id number] [place] [address] 16 Jun, 2011 [facility] [address] [id number] [place] [address] Jun, [facility] [address] [id number] [place] [address] 15 Apr, 2011 [facility] [address] [id number] [place] [address] 15 Apr, 2011 [facility] [place] [facility] [address] [id number] [place] [address] 10 Apr, 2011 [facility] [address] [id number] [place] [address] Mar, [facility] [place] [facility] [address] [id number] [place] [address] Mar, [facility] [address] [id number] [place] [address] Mar, [facility] [address] [id number] [place] [address] Mar, [facility] [address] [id number] [place] [address] Mar, [facility] [address] [id number] [place] [address] Jan, [facility] [address] [id number] [place] [address] Jan, [facility] [place] [facility] [address] [facility] [id number] [place] [address] Jan, [facility] [address] [id number] [place] [address] Mar, [facility] [place] [facility] [address] [id number] [place] [address] Mar, [facility] [place] [facility] [address] [id number] [place] [address] Feb, [facility] [place] [facility] [address] [id number] [place] [address] 16 Feb, 2010 [facility] [place] [facility] [address] [facility] [id number] [place] [address] 16 Feb, 2010 [facility] [place] [facility] [id number], [place] [address] 17 Jan, 2010 [facility] [id number], [place] [address] Jan, [facility] [id number], [place] [address] Dec, [facility] [id number], [place] [address] Dec, [facility] [id number], [place] [address] May, [facility] [id number] [place] [address] Apr, [facility] [id number], [place] [address] Feb, [facility] [id number], [place] [address] Feb, [facility] [id number], [place] [address] Jan, [facility] [id number], [place] [address] Jan, [facility] [id number], [place] [address] Jan, [facility] [address] [id number], [place] [address] Jan, [facility] [address] [id number], [place] [address] Jan, IMMUNIZATIONS No Known Immunizations SOCIAL HISTORY Never Assessed REASON FOR VISIT Future lab orders/Ortho Referral PLAN OF CARE VITAL SIGNS MEDICATIONS [...]
--- OUTSIDE RECORDS SUMMARY | 2018-10-04 07:22 | XMS REPORT ---
Author KISHA Brown [employer] Address Unknown Phone Unavailable Care Team Providers Care Tube Tester Name Role Phone KISHA CHAVIS CP Unavailable Allergies No Known Allergies Problems [...] Start Date End Date Status Dosage Hydrocodone-Acetaminophen [facility] [address]-34 5-325 MG May 29, 2014 take 1 tablet by oral route every 6 hours as needed for pain [facility] Contin [facility] [address]-59 30 MG Orally Once a day in the evening Oct 22, 2014 1 tablet [facility] Contin [facility] [address]-37 15 MG Orally Once a day in the am Oct 22, 2014 1 tablet Results No Known Results Summary Purpose [employer] Submission
--- OUTSIDE RECORDS SUMMARY | 2018-10-04 07:22 | XMS REPORT ---
Author Author KATHY ESTHER [facility] Address [address] [place] [address] Care Team Providers Care Field [employer]er Name Role Phone KATHYESTHER VILLEGAS Unavailable PROBLEMS Type Condition ICD9-CM Code QVL82-VO Code Onset Dates Condition Status SNOMED Code Problem Primary osteoarthritis of both knees M17.0 Active 686962432 Problem MITCHELL treated with BiPAP G47.33 Active 23228346 Problem Nocturnal hypoxia G47.34 Active 061749737 Problem Chronic prescription opiate use Z79.891 Active 974021519 Problem Chronic systolic (congestive) heart failure I50.22 Active 876203367 Problem Acute right-sided low back pain with right-sided sciatica M54.41 Active 51082737 Problem Posttraumatic stress disorder F43.10 Active 61796664 Problem Severe major depression with psychotic features F32.3 Active 17958873 Problem Mood disorder F39 Active 08394060 Problem Mild episode of recurrent major depressive disorder F33.0 Active 714478065 Problem Type 2 diabetes mellitus with diabetic polyneuropathy E11.42 Active 707044074 Problem Pure hypercholesterolemia E78.0 Active 406651637 Problem Chronic pain syndrome G89.4 Active 389849746 Problem Tobacco abuse Z72.0 Active 524534407 Problem Obesity, morbid, BMI 40.0-49.9 E66.01 Active 328547967 Problem BMI 45.0-49.9, adult Z68.42 Active 625530470 Problem Macrocytosis D75.89 Active 524784710 Problem Major depressive disorder, recurrent episode, unspecified severity F33.9 Active 20642667 Problem Gastroesophageal reflux disease, esophagitis presence not specified K21.9 Active 254565690 Problem History of DVT (deep vein thrombosis) Z86.718 Active 605999188 Problem Essential hypertension I10 Active 57458563 Problem History of weight loss surgery Z98.84 Active 411683890 Problem PTSD (post-traumatic stress disorder) F43.10 Active 57038667 Problem Non-ischemic cardiomyopathy I42.9 Active 12749484 Problem Chronic obstructive pulmonary disease, unspecified COPD type J44.9 Active 07856336 ALLERGIES No Information ENCOUNTERS Encounter Location Date Diagnosis [place] [id number] [place] [phone] Sep, [facility] [id number] [place] [address] July, Medicare annual wellness visit, initial Z00.00 [facility] [id number] [place] [address] May, [place] [address] [address] May, BMI 45.0-49.9, adult Z68.42 ; Mood disorder F39 and Posttraumatic stress disorder F43.10 [place] [id number] [place] [address] May, [facility] [id number] [place] [address] May, Primary osteoarthritis of both knees M17.0 and Chronic pain syndrome G89.4 [place] [id number] [place] [address] May, Mood disorder F39 [place] [id number] [place] [address] Apr, Type 2 diabetes mellitus with diabetic polyneuropathy E11.42 [facility] [id number] [place] [address] Apr, [facility] [id number] [place] [address] Apr, Primary osteoarthritis of both knees M17.0 and Chronic pain syndrome G89.4 [place] [id number] [place] [address] Apr, Mood disorder F39 [place] [id number] [place] [address] Mar, Mood disorder F39 and Posttraumatic stress disorder F43.10 [facility] [id number] [place] [address] Mar, Primary osteoarthritis of both knees M17.0 and Chronic pain syndrome G89.4 [facility] [id number] [place] [address] Feb, Primary osteoarthritis of both knees M17.0 and Chronic pain syndrome G89.4 [facility] [id number] [place] [address] Feb, Mood disorder F39 [facility] [id number] [place] [address] Jan, Type 2 diabetes mellitus with diabetic polyneuropathy E11.42 ; Primary osteoarthritis of both knees M17.0 ; Mood disorder F39 ; Obesity, morbid, BMI 40.0-49.9 E66.01 ; Chronic prescription opiate use Z79.891 ; Acute suppurative otitis media of both ears without spontaneous rupture of tympanic membranes, recurrence not specified H66.003 and BMI 45.0-49.9, adult Z68.42 [facility] [id number] [place] [address] Jan, Primary osteoarthritis of both knees M17.0 and Chronic pain syndrome G89.4 [facility] [id number] [place] [address] Dec, Mood disorder F39 and Posttraumatic stress disorder F43.10 [facility] [id number] [place] [address] Dec, Primary osteoarthritis of both knees M17.0 and Chronic pain syndrome G89.4 [facility] [id number] [place] [address] 18 Nov, 2016 Chronic pain syndrome G89.4 [facility] [id number] [place] [phone] 15 Nov, 2016 Primary osteoarthritis of both knees M17.0 and Chronic pain syndrome G89.4 [facility] [id number] [place] [address] 13 Nov, 2016 Type 2 diabetes mellitus with diabetic polyneuropathy E11.42 and Chronic pain syndrome G89.4 [facility] [id number] [place] [address] 12 Nov, 2016 Posttraumatic stress disorder F43.10 and Mood disorder F39 [facility] [id number] [place] [address] Oct, Chronic pain syndrome G89.4 [facility] [id number] [place] [address] 16 Oct, 2016 Type 2 diabetes mellitus with diabetic polyneuropathy E11.42 ; BMI 45.0-49.9, adult Z68.42 ; Primary osteoarthritis of both knees M17.0 and Skin lesion L98.9 [facility] [id number] [place] [address] Oct, Chronic pain syndrome G89.4 [facility] [id number] [place] [address] Sep, Chronic pain syndrome G89.4 [facility] [id number] [place] [phone] Sep, [facility] [id number] [place] [address] Sep, Chronic pain syndrome G89.4 [facility] [id number] [place] [address] Aug, Chronic pain syndrome G89.4 [facility] [id number] [place] [address] Aug, [facility] [id number] [place] [address] Aug, Macrocytosis D75.89 and Pure hypercholesterolemia E78.0 [facility] [id number] [place] [phone] Aug, Pure hypercholesterolemia E78.0 [place] [address] [address] Aug, Macrocytosis D75.89 [place] [id number] [place] [phone] Aug, Pure hypercholesterolemia E78.0 ; Type 2 diabetes mellitus with diabetic polyneuropathy E11.42 ; MITCHELL treated with BiPAP G47.33 and Chronic pain syndrome G89.4 [place] [id number] [place] [address] Aug, [place] [id number] [place] [phone] Aug, Hemorrhoids, unspecified hemorrhoid type K64.9 [place] [id number] [place] [address] Aug, Chronic pain syndrome G89.4 ; Type 2 diabetes mellitus with diabetic polyneuropathy E11.42 ; Hemorrhoids, unspecified hemorrhoid type K64.9 ; Tobacco abuse Z72.0 and Primary osteoarthritis of both knees M17.0 [place] [id number] [place] [address] July, Chronic pain syndrome G89.4 [place] [id number] [place] [address] July, [place] [id number] [place] [address] Jun, Chronic pain syndrome G89.4 [place] [id number] [place] [address] Jun, Chronic pain syndrome G89.4 [place] [id number] [place] [address] Jun, Severe major depression with psychotic features F32.3 and Posttraumatic stress disorder F43.10 [place] [address] [address] Jun, Chronic pain syndrome G89.4 [facility] [id number] [place] [phone] Jun, [facility] [id number] [place] [address] May, Chronic pain syndrome G89.4 [facility] [id number] [place] [address] May, Tobacco abuse Z72.0 [facility] [id number] [place] [phone] May, [facility] [id number] [place] [address] Apr, Chronic pain syndrome G89.4 [facility] [id number] [place] [address] Apr, [facility] [id number] [place] [address] Apr, Right foot pain M79.671 [facility] [id number] [place] [address] Mar, Type 2 diabetes mellitus with diabetic polyneuropathy E11.42 ; MITCHELL treated with BiPAP G47.33 ; Pure hypercholesterolemia E78.0 ; Chronic pain syndrome G89.4 ; Tobacco abuse Z72.0 and Obesity, morbid, BMI 40.0-49.9 E66.01 [facility] [address] [address] Mar, [facility] [id number] [place] [address] Mar, [facility] [id number] [place] [phone] Mar, [facility] [id number] [place] [id number] Mar, [facility] [address] [address] Mar, [facility] [id number] [place] [address] Mar, Severe major depression with psychotic features F32.3 and Posttraumatic stress disorder F43.10 [facility] [id number] [place] [address] Mar, [facility] [address] [facility] [id number] [place] [phone] Feb, [facility] [id number] [place] [phone] Feb, [facility] [id number] [place] [phone] Jan, [facility] [id number] [place] [address] Jan, [facility] [id number] [place] [address] Dec, Posttraumatic stress disorder F43.10 and Severe major depression with psychotic features F32.3 [facility] [address] [address] Dec, Type 2 diabetes mellitus with diabetic polyneuropathy E11.42 ; Chronic pain syndrome G89.4 and Acute right-sided low back pain with right-sided sciatica M54.41 [facility] [address] [address] Dec, [facility] [id number] [place] [address] Dec, [facility] [id number] [address] Nov, [facility] [id number] [place] [address] Nov, [facility] [id number] [place] [address] Nov, [facility] [id number] [place] [address] Oct, [facility] [id number] [place] [address] Oct, [facility] [id number] [place] [address] Sep, Dental examination Z01.20 [facility] [id number] [place] [address] Sep, [facility] [id number] [place] [address] Sep, Type 2 diabetes mellitus with diabetic polyneuropathy E11.42 ; Chronic pain syndrome G89.4 ; Chronic prescription opiate use Z79.891 ; Injury of right index finger, sequela S69.91XS and Anejaculation N50.8 [facility] [id number] [place] [address] Aug, [facility] [id number] [place] [address] Aug, [facility] [id number] [place] [address] Aug, Cellulitis of finger of right hand L03.011 [facility] [id number] [place] [address] July, [facility] [id number] [place] [address] July, [facility] [id number] [place] [address] Jun, Onychomycosis B35.1 [facility] [id number] [place] [address] Jun, Severe major depression with psychotic features F32.3 and Posttraumatic stress disorder F43.10 [facility] [address] [address] Jun, [facility] [id number] [place] [address] Jun, [facility] [id number] [place] [address] Jun, [facility] [id number] [place] [address] May, Type 2 diabetes mellitus with diabetic polyneuropathy E11.42 [place] [id number] [place] [address] May, Type 2 diabetes mellitus with diabetic polyneuropathy E11.42 and Urinary hesitancy R39.11 [facility] [id number] [place] [address] May, Type 2 diabetes mellitus with diabetic polyneuropathy E11.42 ; Left hip pain M25.552 and Benign prostatic hyperplasia with lower urinary tract symptoms, unspecified morphology N40.1 [facility] [id number] [place] [address] May, [facility] [id number] [place] [address] Apr, Severe major depression with psychotic features F32.3 and Posttraumatic stress disorder F43.10 [facility] [id number] [place] [address] Apr, [facility] [address], [place] [address] Mar, [facility] [id number] [place] [address] Mar, Dysuria R30.0 and Urinary hesitancy R39.11 [facility] [id number] [place] [address] Mar, Onychomycosis B35.1 [facility] [address] [address] Mar, [facility] [id number] [place] [address] Feb, [facility] [id number] [place] [address] Jan, [facility] [id number] [place] [address] Jan, Posttraumatic stress disorder F43.10 and Severe major depression with psychotic features F32.3 [facility] [id number] [place] [address] Jan, [facility] [id number] [place] [address] Jan, Chronic pain syndrome G89.4 ; Type 2 diabetes mellitus with diabetic polyneuropathy E11.42 ; Decreased pedal pulses R09.89 and Paresthesia of both hands R20.2 [facility] [id number] [place] [address] Dec, Posttraumatic stress disorder F43.10 and Severe major depression with psychotic features F32.3 [facility] [address], [place] [address] Dec, [facility] [id number] [place] [address] Dec, [facility] [address], [place] [address] Dec, Onychomycosis B35.1 [facility] [id number] [place] [address] Dec, [facility] [id number] [place] [address] Dec, [facility] [id number] [place] [address] Nov, [place] [id number] [place] [address] Oct, Depression, major, recurrent, moderate 296.32 and Posttraumatic stress disorder 309.81 [facility] [id number] [place] [address] Oct, [facility] [id number] [place] [address] Oct, [place] [id number] [place] [address] Oct, [facility] [id number] [place] [address] Sep, Posttraumatic stress disorder 309.81 and Depression, major, recurrent, moderate 296.32 [place] [id number] [place] [address] Sep, [facility] [id number] [place] [address] Sep, Chronic airway obstruction, not elsewhere classified [id number] [place] [address] Sep, Onychomycosis 110.1 and DM neuro manif type II 250.60 [place] [id number] [place] [address] Sep, Chronic pain 338.29 ; Chronic airway obstruction, not elsewhere classified 496 ; Osteoarthritis of knees, bilateral 715.96 and On potassium wasting diuretic therapy V58.69 [facility] [id number] [place] [address] Sep, Insect bites 919.4 ; Sinusitis 473.9 and GERD (gastroesophageal reflux disease) 530.81 [facility] [id number] [place] [address] Aug, Depression, major, recurrent, moderate 296.32 and Posttraumatic stress disorder 309.81 [place] [address] [facility] [id number] [address] Aug, [facility] [address] [facility] [id number] [place] [address] Aug, [facility] [address] [facility] [id number] [address] Aug, [facility] [id number] [address] July, Major depressive disorder, recurrent episode, moderate 296.32 and Posttraumatic stress disorder 309.81 [facility] [address] [facility] [id number] [place] [address] July, [facility] [id number] [address] July, [facility] [address] [address] July, [facility] [id number] [address] July, [facility] [id number] [address] Jun, [facility] [id number] [address] Jun, [facility] [address], [place] [address] May, [facility] [address] [facility] [id number], [place] [address] May, [facility] [address] [facility] [id number] [place] [address] May, [facility] [address] [facility] [id number] [place] [address] May, [facility] [id number] [address] May, [facility] [place] [facility] [address] [id number] [place] [address] May, [facility] [place] [facility] [address] [id number] [place] [address] May, [facility] [place] [facility] [address] [id number] [place] [address] May, [facility] [place] [facility] [address] [id number] [place] [address] May, [facility] [place] [facility] [address] [id number] [place] [address] Apr, 2014 [facility] [place] [facility] [address] [id number] [place] [address] Apr, 2014 [facility] [place] [facility] [address] [facility] [id number] [place] [address] Apr, 2014 [facility] [place] [facility] [address] [id number] [place] [address] Apr, 2014 [facility] [place] [facility] [address] [facility] [id number] [place] [address] Apr, [facility] [place] [facility] [address] [facility] [id number] [place] [address] Apr, [facility] [place] [facility] [address] [facility] [id number] [place] [address] Apr, [facility] [place] [facility] [address] [id number], [place] [address] Apr, 2014 [facility] [place] [facility] [address] [id number] [place] [address] Apr, [facility] [place] [facility] [address] [id number] [place] [address] Mar, [facility] [place] [facility] [address] [id number], [place] [address] Mar, [facility] [place] [facility] [address] [id number], [place] [address] Mar, [facility] [address] [id number] [place] [address] Mar, [facility] [place] [facility] [address] [id number] [place] [address] Mar, [facility] [place] [facility] [address] [id number] [place] [address] 15 Mar, 2014 [facility] [place] [facility] [address] [id number] [place] [address] 15 Mar, 2014 [facility] [place] [facility] [address] [id number] [place] [address] Mar, [facility] [place] [facility] [address] [id number] [place] [address] Mar, [facility] [place] [facility] [address] [id number], [place] [address] Mar, [facility] [place] [facility] [address] [id number] [place] [address] Mar, [facility] [place] [facility] [address] [id number] [place] [address] Mar, [facility] [place] [facility] [address] [id number] [place] [address] Mar, [facility] [place] [facility] [address] [id number], [place] [address] Mar, [facility] [place] [facility] [address] [id number], [place] [address] Mar, [facility] [place] [facility] [address] [id number][place] [address] Mar, [facility] [place] [facility] [address] [id number], [place] [address] Mar, [facility] [place] [facility] [address] [id number], [place] [address] Mar, [facility] [place] [facility] [address] [id number] [place] [address] 16 Feb, 2014 [facility] [place] [facility] [address] [id number] [place] [address] 16 Feb, 2014 [facility] [place] [facility] [address] [id number] [place] [address] 15 Feb, 2014 [facility] [place] [facility] [address] [id number] [place] [address] 15 Feb, 2014 [facility] [place] [facility] [address] [id number] [place] [address] 15 Feb, 2014 [facility] [place] [facility] [address] [id number] [place] [address] Feb, [facility] [place] [facility] [address] [id number] [place] [address] Jan, [facility] [place] [facility] [address] [id number] [place] [address] Jan, [facility] [place] [facility] [address] [id number] [place] [address] Jan, [facility] [place] [facility] [address] [id number] [place] [address] Jan, [facility] [place] [facility] [address] [id number] [place] [address] Jan, [facility] [place] [facility] [address] [id number] [place] [address] Jan, [facility] [place] [facility] [address] [id number] [place] [address] Jan, [facility] [place] [facility] [address] [id number] [place] [address] Jan, [facility] [place] [facility] [address] [id number] [place] [address] Jan, [facility] [place] [facility] [address] [id number] [place] [address] Jan, [facility] [place] [facility] [address] [id number] [place] [address] Dec, [facility] [place] [facility] [address] [id number] [place] [address] Dec, [facility] [place] [facility] [address] [id number] [place] [address] Dec, [facility] [place] [facility] [address] [id number] [place] [address] Dec, [facility] [place] [facility] [address] [id number] [place] [address] Nov, [facility] [place] [facility] [address] [id number] [place] [address] Nov, [facility] [place] [facility] [address] [id number] [place] [address] Nov, [facility] [place] [facility] [address] [id number] [place] [address] Nov, [facility] [place] [facility] [address] [id number] [place] [address] Nov, [facility] [place] [facility] [address] [id number] [place] [address] Nov, [facility] [place] [facility] [address] [id number], [place] [address] Oct, [facility] [place] [facility] [address] [id number], [place] [address] Oct, [facility] [place] [facility] [address] [id number] [place] [address] Oct, [facility] [place] [facility] [address] [id number] [place] [address] Oct, [facility] [place] [facility] [address] [id number] [place] [address] Sep, [facility] [place] [facility] [address] [id number] [place] [address] Sep, [facility] [place] [facility] [address] [id number] [place] [address] Sep, [facility] [place] [facility] [address] [id number] [place] [address] Sep, [facility] [place] [facility] [address] [id number] [place] [address] Sep, [facility] [place] [facility] [address] [id number] [place] [address] Sep, [facility] [place] [facility] [address] [id number] [place] [address] July, [facility] [place] [facility] [address] [id number] [place] [address] July, [facility] [place] [facility] [address] [id number] [place] [address] July, [facility] [place] [facility] [address] [id number] [place] [address] July, [facility] [place] [facility] [address] [id number] [place] [address] Jun, [facility] [place] [facility] [address] [id number] [place] [address] Jun, [facility] [place] [facility] [address] [id number] [place] [address] Jun, [facility] [place] [facility] [address] [id number] [place] [address] Jun, [facility] [place] [facility] [address] [id number] [place] [address] Jun, [facility] [place] [facility] [address] [id number] [place] [address] Jun, [facility] [place] [facility] [address] [id number] [place] [address] May, [facility] [place] [facility] [address] [id number] [place] [address] May, [facility] [place] [facility] [address] [id number] [place] [address] Apr, [facility] [place] [facility] [address] [id number] [place] [address] Apr, [facility] [place] [facility] [address] [id number] [place] [address] Apr, [facility] [place] [facility] [address] [id number] [place] [address] Apr, [facility] [place] [facility] [address] [id number] [place] [address] Apr, [facility] [place] [facility] [address] [id number] [place] [address] Apr, [facility] [place] [facility] [address] [id number] [place] [address] Apr, [facility] [place] [facility] [address] [id number] [place] [address] Mar, [facility] [place] [facility] [address] [id number] [place] [address] Mar, [facility] [place] [facility] [address] [id number] [place] [address] Mar, [facility] [place] [facility] [address] [id number] [place] [address] Mar, [facility] [place] [facility] [address] [id number] [place] [address] Mar, [facility] [place] [facility] [address] [id number] [place] [address] Mar, [facility] [place] [facility] [address] [id number] [place] [address] Mar, [facility] [place] [facility] [address] [id number] [place] [address] 13 Mar, 2013 [facility] [address] [id number] [place] [address] Feb, [facility] [place] [facility] [address] [id number] [place] [address] Feb, [facility] [place] [facility] [address] [id number] [place] [address] Feb, [facility] [place] [facility] [address] [id number] [place] [address] Feb, [facility] [place] [facility] [address] [id number] [place] [address] Feb, [facility] [place] [facility] [address] [id number] [place] [address] Feb, [facility] [place] [facility] [address] [id number] [place] [address] Feb, [facility] [place] [facility] [address] [id number] [place] [address] Jan, [facility] [place] [facility] [address] [id number] [place] [address] Jan, [facility] [place] [facility] [address] [id number] [place] [address] Jan, [facility] [place] [facility] [address] [id number] [place] [address] Jan, [facility] [place] [facility] [address] [id number], [place] [address] Jan, [facility] [place] [facility] [address] [id number] [place] [address] Jan, [facility] [place] [facility] [address] [id number] [place] [id number] Jan, [facility] [place] [facility] [address] [id number] [place] [id number] Jan, [facility] [place] [facility] [address] [id number] [place] [address] Dec, 2012 [facility] [place] [facility] [address] [id number] [place] [address] Dec, 2012 [facility] [place] [facility] [address] [id number] [place] [address] Dec, 2012 [facility] [place] [facility] [address] [id number] [place] [address] Dec, 2012 [facility] [place] [facility] [address] [id number] [place] [address] Dec, 2012 [facility] [place] [facility] [address] [id number] [place] [address] Dec, 2012 [facility] [place] [facility] [address] [id number] [place] [address] Dec, [facility] [place] [facility] [address] [id number] [place] [address] Dec, [facility] [place] [facility] [address] [id number] [place] [address] 16 Dec, 2012 [facility] [place] [facility] [address] [id number] [place] [address] 04 Dec, 2012 [facility] [place] [facility] [address] [id number] [id number] 27 Nov, 2012 [facility] [place] [facility] [address] [facility] [id number] [id number] 27 Nov, 2012 [facility] [place] [facility] [address] [id number], [place] [address] 24 Nov, 2012 [facility] [place] [facility] [address] [id number] [place] [address] 20 Sep, 2012 [facility] [place] [facility] [address] [id number] [place] [address] 19 Nov, 2012 [facility] [place] [facility] [address] [id number] [place] [address] Nov, [facility] [place] [facility] [address] [id number] [place] [address] Nov, [facility] [place] [facility] [address] [id number] [place] [address] Nov, [facility] [place] [facility] [address] [id number] [place] [address] Oct, [facility] [place] [facility] [address] [id number] [place] [address] Oct, [facility] [place] [facility] [address] [id number] [place] [address] Oct, [facility] [place] [facility] [address] [id number] [place] [address] Sep, [facility] [place] [facility] [address] [id number] [place] [address] Sep, [facility] [place] [facility] [address] [id number] [place] [address] Sep, [facility] [place] [facility] [address] [id number] [place] [address] Sep, [facility] [place] [facility] [address] [id number] [place] [address] Sep, [facility] [place] [facility] [address] [id number] [place] [address] Aug, [facility] [place] [facility] [address] [id number], [place] [address] Aug, [facility] [place] [facility] [address] [id number] [place] [address] Aug, [facility] [place] [facility] [address] [id number] [place] [address] Aug, [facility] [place] [facility] [address] [id number], [place] [address] Aug, [facility] [place] [facility] [address] [id number], [place] [address] Aug, [facility] [address] [id number] [place] [address] July, [facility] [address] [id number] [place] [address] July, [facility] [address] [id number] [place] [address] July, [facility] [address] [id number] [place] [address] July, [facility] [address] [id number] [place] [address] July, [facility] [address] [id number] [place] [address] July, [facility] [address] [id number] [place] [address] Jun, [facility] [address] [id number] [place] [address] Jun, [facility] [address] [id number] [place] [address] Jun, [facility] [address] [id number] [place] [address] Jun, [facility] [address] [id number] [place] [address] May, [facility] [address] [id number] [place] [address] May, [facility] [address] [id number] [place] [address] May, [facility] [place] [facility] [address] [id number] [place] [address] Apr, [facility] [address] [id number] [place] [address] Mar, [facility] [place] [facility] [address] [id number] [place] [address] 18 Mar, 2012 [facility] [place] [facility] [address] [id number] [place] [address] 17 Mar, 2012 [facility] [place] [facility] [address] [id number] [place] [address] 16 Mar, 2012 [facility] [place] [facility] [address] [id number] [place] [address] 15 Mar, 2012 [facility] [place] [facility] [address] [id number] [place] [address] 31 Feb, 2012 [facility] [place] [facility] [address] [id number] [place] [address] Feb, [facility] [place] [facility] [address] [id number] [place] [address] 17 Feb, 2012 [facility] [place] [facility] [address] [id number] [place] [address] 17 Feb, 2012 [facility] [place] [facility] [address] [id number] [place] [address] Jan, [facility] [place] [facility] [address] [id number] [place] [address] Jan, [facility] [place] [facility] [address] [id number] [place] [address] Jan, [facility] [place] [facility] [address] [id number] [place] [address] Jan, [facility] [place] [facility] [address] [id number] [place] [address] Dec, [facility] [place] [facility] [address] [id number] [place] [address] Dec, [facility] [place] [facility] [address] [id number] [place] [address] Nov, [facility] [place] [facility] [address] [id number] [place] [address] Oct, [facility] [address] [id number] [place] [address] Oct, [facility] [address] [id number] [place] [address] Oct, [facility] [address] [id number] [place] [address] Oct, [facility] [address] [id number] [place] [address] Oct, [facility] [address] [id number] [place] [address] Sep, [facility] [address] [id number] [place] [address] Sep, [facility] [address] [id number] [place] [address] Aug, [facility] [address] [place] [id number] Aug, [facility] [address] [id number] [place] [address] Aug, [facility] [address] [id number] [place] [address] July, [facility] [address] [id number] [place] [address] July, [facility] [address] [id number] [place] [address] Jun, [facility] [address] [id number] [place] [address] Jun, [facility] [address] [id number] [place] [address] 16 Jun, 2011 [facility] [address] [id number] [place] [address] Jun, [facility] [address] [id number] [place] [address] 15 Apr, 2011 [facility] [address] [id number] [place] [address] 15 Apr, 2011 [facility] [place] [facility] [address] [id number] [place] [address] 10 Apr, 2011 [facility] [address] [id number] [place] [address] Mar, [facility] [place] [facility] [address] [id number] [place] [address] Mar, [facility] [address] [id number] [place] [address] Mar, [facility] [address] [id number] [place] [address] Mar, [facility] [address] [id number] [place] [address] Mar, [facility] [address] [id number] [place] [address] Jan, [facility] [address] [id number] [place] [address] Jan, [facility] [place] [facility] [address] [facility] [id number] [place] [address] Jan, [facility] [address] [id number] [place] [address] Mar, [facility] [place] [facility] [address] [id number] [place] [address] Mar, [facility] [place] [facility] [address] [id number] [place] [address] Feb, [facility] [place] [facility] [address] [id number] [place] [address] 16 Feb, 2010 [facility] [place] [facility] [address] [facility] [id number] [place] [address] 16 Feb, 2010 [facility] [place] [facility] [address], [place] [address] 17 Jan, 2010 [facility] [address], [place] [address] Jan, [facility] [id number], [place] [address] Dec, [facility] [id number], [place] [address] Dec, [facility] [id number], [place] [address] May, [facility] [id number] [place] [address] Apr, [facility] [id number] [place] [address] Feb, [facility] [id number] [place] [address] Feb, [facility] [address], [place] [address] Jan, [facility] [address], [place] [address] Jan, [facility] [address], [place] [address] Jan, [facility] [address], [place] [address] Jan, [facility] [address], [place] [address] Jan, IMMUNIZATIONS No Known Immunizations SOCIAL HISTORY Never Assessed REASON FOR VISIT Med per Lab Result/Deferred Lab Order PLAN OF CARE VITAL SIGNS MEDICATIONS Medication Instructions Dosage Frequency Start Date End Date Duration Status Atorvastatin Calcium 40 mg Orally Once a day 1 tablet 24h Aug, 30 day(s) Active RESULTS No Results PROCEDURES [...]
--- OUTSIDE RECORDS SUMMARY | 2018-10-04 07:23 | XMS REPORT ---
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 Active Assessment Posttraumatic stress disorder F43.10 Active Problem MITCHELL treated with BiPAP G47.33 Active Problem Chronic systolic (congestive) heart failure I50.22 Active Problem Essential hypertension I10 Active Problem Non-ischemic cardiomyopathy I42.9 Active Problem History of weight loss surgery Z98.84 Active Problem History of DVT (deep vein thrombosis) Z86.718 Active Medications Medication Code System Code Instructions Start Date End Date Status Dosage MS Contin [facility] [address]-02 15 MG Orally Once a day in the am- appt needed before due for next refill Oct 22, 2014 1 tablet Gabapentin [facility] [address]-55 600 MG Orally 3 times a day 2 tablets Prozac [facility] 59792431905 40 MG Orally Once a day 1 capsule in the morning Patada [facility] [address]-14 0.2 % Ophthalmic 2 times a day Apr 10, 2015 1 drop to affected eyes HydrOXYzine Pamoate [facility] [address]-21 25 MG Orally every 6 hrs May 07, 2015 1 capsule as needed Klonopin [facility] 24354798278 1 MG TAKE ONE TABLET BY MOUTH TWICE DAILY Pen [place] [facility] [address]-46 31G X 6 MM Once a day June 10, 2015 as directed Hydrocodone-Acetaminophen [facility] 71291068578 5-325 MG TAKE ONE TABLET BY MOUTH EVERY 6 HOURS NEEDED FOR PAIN (MUST HAVE APPOINTMENT BEFORE NEXT REFILL DUE!!!) Pantoprazole Sodium [facility] 09876829498 40 MG Orally Once a day 1 tablet Cyclobenzaprine HCl [facility] 10926937993 10 MG TAKE ONE TABLET BY MOUTH THREE TIMES DAILY NEEDED Nexium [facility] 80947737347 40 MG Orally Once a day qHS 1 capsule Ibuprofen [facility] [address]-19 800 MG Orally Three times a day Dec 23, 2015 Feb 21, 2016 1 tablet as needed Liraglutide [facility] [address]-35 18 MG/3ML Subcutaneous Once a day for one week, then increase to 1.2 mg SQ daily June 04, 2015 0.6 mg Ventolin HFA [facility] [address]-31 108 (90 Base) MCG/ACT Inhalation every 4 hrs Apr 10, 2015 2 puffs as needed MS Contin [facility] [address]-51 30 MG Orally Once a day in the evening- appt needed before due for next refill Oct 22, 2014 1 tablet Metformin HCl [facility] [address]-89 500 MG Orally Twice a day 1 tablet with meals Invega [facility] 45661023707 6 MG Orally Once a day 2 tablets Procedures Procedure Coding System Code Date Office Visit, Est Pt., Level 3 CPT-4 10072 Dec 29, 2015 CRITICAL ACCESS H[facility]PITAL VISIT ESTABLISHED PATIENT CPT-4 G0467 Dec 29, 2015 Vital Signs Date/Time: Dec 29, 2015 Cardiac Monitoring Heart Rate 74 bpm Weight 280.9 lbs Height 66 in BMI 45.33 Index Blood Pressure Diastolic 77 mmHg Blood Pressure Systolic 136 mmHg Results No Known Results Summary Purpose eClinicalWorks Submission
--- OUTSIDE RECORDS SUMMARY | 2018-10-04 07:24 | XMS REPORT ---
Author Author PARI Garcia Organization [facility] Address Unknown Care Team Providers Care Supply Chain Engineer Name Role Phone PARI Garcia Unavailable PROBLEMS Type Condition ICD9-CM Code [id number] Code Onset Dates Condition Status SNOMED Code Problem Primary osteoarthritis of both knees M17.0 Active 002692208 Problem MITCHELL treated with BiPAP G47.33 Active 65372673 Problem Nocturnal hypoxia G47.34 Active 057783495 Problem Chronic prescription opiate use Z79.891 Active 104430650 Problem Chronic systolic (congestive) heart failure I50.22 Active 760720398 Problem Acute right-sided low back pain with right-sided sciatica M54.41 Active 00811655 Problem Posttraumatic stress disorder F43.10 Active 71033213 Problem Severe major depression with psychotic features F32.3 Active 73176194 Problem Mood disorder F39 Active 05884903 Problem Mild episode of recurrent major depressive disorder F33.0 Active 288217970 Problem Type 2 diabetes mellitus with diabetic polyneuropathy E11.42 Active 080841877 Problem Pure hypercholesterolemia E78.0 Active 365049539 Problem Chronic pain syndrome G89.4 Active 688491231 Problem Tobacco abuse Z72.0 Active 734426393 Problem Obesity, morbid, BMI 40.0-49.9 E66.01 Active 174570169 Problem BMI 45.0-49.9, adult Z68.42 Active 042566015 Problem Macrocytosis D75.89 Active 215923556 Problem Major depressive disorder, recurrent episode, unspecified severity F33.9 Active 36057387 Problem Gastroesophageal reflux disease, esophagitis presence not specified K21.9 Active 340589067 Problem History of DVT (deep vein thrombosis) Z86.718 Active 919628465 Problem Essential hypertension I10 Active 92482729 Problem History of weight loss surgery Z98.84 Active 818701614 Problem PTSD (post-traumatic stress disorder) F43.10 Active 94399580 Problem Non-ischemic cardiomyopathy I42.9 Active 02971213 Problem Chronic obstructive pulmonary disease, unspecified COPD type J44.9 Active 46169329 ALLERGIES No Information ENCOUNTERS Encounter Location Date Diagnosis [place] [id number] [place] [address] Sep, [facility] [id number] [place] [address] July, Medicare annual wellness visit, initial Z00.00 [facility] [address] [address] May, [place] [address] [address] May, BMI 45.0-49.9, adult Z68.42 ; Mood disorder F39 and Posttraumatic stress disorder F43.10 [place] [id number] [place] [address] May, [place] [address] [address] May, Primary osteoarthritis of both knees M17.0 and Chronic pain syndrome G89.4 [place] [id number] [place] [address] May, Mood disorder F39 [place] [id number] [place] [address] Apr, Type 2 diabetes mellitus with diabetic polyneuropathy E11.42 [facility] [id number] [place] [address] Apr, [facility] [id number] [place] [address] Apr, Primary osteoarthritis of both knees M17.0 and Chronic pain syndrome G89.4 [facility] [id number] [place] [address] Apr, Mood disorder F39 [facility] [id number] [place] [address] Mar, Mood disorder F39 and Posttraumatic stress disorder F43.10 [facility] [id number] [place] [address] Mar, Primary osteoarthritis of both knees M17.0 and Chronic pain syndrome G89.4 [facility] [id number] [place] [address] Feb, Primary osteoarthritis of both knees M17.0 and Chronic pain syndrome G89.4 [facility] [id number] [place] [address] Feb, Mood disorder F39 [place] [id number] [place] [address] Jan, Type 2 diabetes mellitus with diabetic polyneuropathy E11.42 ; Primary osteoarthritis of both knees M17.0 ; Mood disorder F39 ; Obesity, morbid, BMI 40.0-49.9 E66.01 ; Chronic prescription opiate use Z79.891 ; Acute suppurative otitis media of both ears without spontaneous rupture of tympanic membranes, recurrence not specified H66.003 and BMI 45.0-49.9, adult Z68.42 [place] [id number] [place] [address] Jan, Primary osteoarthritis of both knees M17.0 and Chronic pain syndrome G89.4 [facility] [id number] [place] [address] Dec, Mood disorder F39 and Posttraumatic stress disorder F43.10 [facility] [id number] [place] [address] Dec, Primary osteoarthritis of both knees M17.0 and Chronic pain syndrome G89.4 [facility] [id number] [place] [address] 18 Nov, 2016 Chronic pain syndrome G89.4 [facility] [id number] [place] [address] 15 Nov, 2016 Primary osteoarthritis of both knees M17.0 and Chronic pain syndrome G89.4 [facility] [address] [address] 13 Nov, 2016 Type 2 diabetes mellitus with diabetic polyneuropathy E11.42 and Chronic pain syndrome G89.4 [facility] [id number] [place] [address] 12 Nov, 2016 Posttraumatic stress disorder F43.10 and Mood disorder F39 [facility] [id number] [place] [address] Oct, Chronic pain syndrome G89.4 [facility] [id number] [place] [address] Oct, Type 2 diabetes mellitus with diabetic polyneuropathy E11.42 ; BMI 45.0-49.9, adult Z68.42 ; Primary osteoarthritis of both knees M17.0 and Skin lesion L98.9 [facility] [id number] [place] [address] Oct, Chronic pain syndrome G89.4 [facility] [id number] [place] [address] Sep, Chronic pain syndrome G89.4 [facility] [id number] [place] [address] Sep, [facility] [id number] [place] [address] Sep, Chronic pain syndrome G89.4 [facility] [id number] [place] [address] Aug, Chronic pain syndrome G89.4 [facility] [id number] [place] [address] Aug, [facility] [id number] [place] [address] Aug, Macrocytosis D75.89 and Pure hypercholesterolemia E78.0 [facility] [id number] [place] [address] Aug, Pure hypercholesterolemia E78.0 [facility] [id number] [place] [address] Aug, Macrocytosis D75.89 [facility] [id number] [place] [address] Aug, Pure hypercholesterolemia E78.0 ; Type 2 diabetes mellitus with diabetic polyneuropathy E11.42 ; MITCHELL treated with BiPAP G47.33 and Chronic pain syndrome G89.4 [facility] [id number] [place] [address] Aug, [place] [id number] [place] [address] Aug, Hemorrhoids, unspecified hemorrhoid type K64.9 [place] [id number] [place] [address] Aug, Chronic pain syndrome G89.4 ; Type 2 diabetes mellitus with diabetic polyneuropathy E11.42 ; Hemorrhoids, unspecified hemorrhoid type K64.9 ; Tobacco abuse Z72.0 and Primary osteoarthritis of both knees M17.0 [facility] [id number] [place] [address] July, Chronic pain syndrome G89.4 [facility] [id number] [place] [address] July, [facility] [id number] [place] [address] Jun, Chronic pain syndrome G89.4 [facility] [id number] [place] [address] Jun, Chronic pain syndrome G89.4 [facility] [id number] [place] [address] Jun, Severe major depression with psychotic features F32.3 and Posttraumatic stress disorder F43.10 [facility] [id number], [place] [address] Jun, Chronic pain syndrome G89.4 [facility] [id number] [place] [address] Jun, [facility] [id number] [place] [address] May, Chronic pain syndrome G89.4 [facility] [id number] [place] [address] May, Tobacco abuse Z72.0 [facility] [id number] [place] [address] May, [facility] [id number] [place] [address] Apr, Chronic pain syndrome G89.4 [facility] [id number] [place] [address] Apr, [facility] [address] [place] [address] Apr, Right foot pain M79.671 [facility] [id number] [place] [address] Mar, Type 2 diabetes mellitus with diabetic polyneuropathy E11.42 ; MITCHELL treated with BiPAP G47.33 ; Pure hypercholesterolemia E78.0 ; Chronic pain syndrome G89.4 ; Tobacco abuse Z72.0 and Obesity, morbid, BMI 40.0-49.9 E66.01 [facility] [address], [place] [address] Mar, [facility] [id number] [place] [address] Mar, [facility] [address], [place] [address] Mar, [facility] [id number] [place] [address] Mar, [facility] [address], [place] [address] Mar, [facility] [id number] [place] [address] Mar, Severe major depression with psychotic features F32.3 and Posttraumatic stress disorder F43.10 [facility] [id number] [address] Mar, [facility] [address], [place] [address] Feb, [facility] [id number] [place] [address] Feb, [facility] [id number] [place] [address] Jan, [facility] [id number] [place] [address] Jan, [facility] [address], [place] [address] Dec, Posttraumatic stress disorder F43.10 and Severe major depression with psychotic features F32.3 [facility] [address], [place] [address] Dec, Type 2 diabetes mellitus with diabetic polyneuropathy E11.42 ; Chronic pain syndrome G89.4 and Acute right-sided low back pain with right-sided sciatica M54.41 [facility] [address], [place] [address] Dec, [facility] [id number], [place] [address] Dec, [facility] [address], [place] [address] Nov, [facility] [address], [place] [address] Nov, [facility] [address], [place] [address] Nov, [facility] [id number] [place] [address] Oct, [facility] [id number] [place] [address] Oct, [facility] [id number] [place] [address] Sep, Dental examination Z01.20 [facility] [id number] [place] [address] Sep, [facility] [id number] [place] [address] Sep, Type 2 diabetes mellitus with diabetic polyneuropathy E11.42 ; Chronic pain syndrome G89.4 ; Chronic prescription opiate use Z79.891 ; Injury of right index finger, sequela S69.91XS and Anejaculation N50.8 [facility] [id number] [place] [address] Aug, [facility] [id number] [place] [address] Aug, [facility] [address], [place] [address] Aug, Cellulitis of finger of right hand L03.011 [facility] [address], [place] [address] July, [facility] [id number] [place] [address] July, [facility] [id number] [place] [address] Jun, Onychomycosis B35.1 [facility] [address], [place] [address] Jun, Severe major depression with psychotic features F32.3 and Posttraumatic stress disorder F43.10 [facility] [address] [place] [address] Jun, [facility] [id number] [place] [address] Jun, [facility] [id number] [place] [address] Jun, [facility] [id number] [place] [address] May, Type 2 diabetes mellitus with diabetic polyneuropathy E11.42 [facility] [id number] [place] [address] May, Type 2 diabetes mellitus with diabetic polyneuropathy E11.42 and Urinary hesitancy R39.11 [facility] [id number] [place] [address] May, Type 2 diabetes mellitus with diabetic polyneuropathy E11.42 ; Left hip pain M25.552 and Benign prostatic hyperplasia with lower urinary tract symptoms, unspecified morphology N40.1 [facility] [id number] [place] [address] May, [facility] [id number] [place] [address] Apr, Severe major depression with psychotic features F32.3 and Posttraumatic stress disorder F43.10 [facility] [address] [place] [address] Apr, [facility] [id number] [place] [address] Mar, [facility] [id number] [place] [address] Mar, Dysuria R30.0 and Urinary hesitancy R39.11 [facility] [id number] [place] [address] Mar, Onychomycosis B35.1 [facility] [address], [place] [address] 08 Mar, 2015 [facility] [address], [place] [address] Feb, [facility] [address], [place] [address] Jan, [facility] [id number] [place] [address] Jan, Posttraumatic stress disorder F43.10 and Severe major depression with psychotic features F32.3 [facility] [id number] [place] [address] Jan, [facility] [address], [place] [address] Jan, Chronic pain syndrome G89.4 ; Type 2 diabetes mellitus with diabetic polyneuropathy E11.42 ; Decreased pedal pulses R09.89 and Paresthesia of both hands R20.2 [facility] [address], [place] [address] Dec, Posttraumatic stress disorder F43.10 and Severe major depression with psychotic features F32.3 [facility] [address], [place] [address] Dec, [facility] [address], [place] [address] Dec, [facility] [address], [place] [address] Dec, Onychomycosis B35.1 [facility] [address], [place] [address] Dec, [facility] [address], [place] [address] Dec, [facility] [address], [place] [address] Nov, [facility] [address], [place] [address] Oct, Depression, major, recurrent, moderate 296.32 and Posttraumatic stress disorder 309.81 [facility] [address] [place] [address] Oct, [facility] [id number] [place] [address] Oct, [facility] [id number] [place] [address] Oct, [place] [id number] [place] [address] Sep, Posttraumatic stress disorder 309.81 and Depression, major, recurrent, moderate 296.32 [place] [id number] [place] [address] Sep, [place] [id number] [place] [address] Sep, Chronic airway obstruction, not elsewhere classified [id number] [place] [address] Sep, Onychomycosis 110.1 and DM neuro manif type II 250.60 [place] [id number] [place] [address] Sep, Chronic pain 338.29 ; Chronic airway obstruction, not elsewhere classified 496 ; Osteoarthritis of knees, bilateral 715.96 and On potassium wasting diuretic therapy V58.69 [place] [id number] [place] [address] Sep, Insect bites 919.4 ; Sinusitis 473.9 and GERD (gastroesophageal reflux disease) 530.81 [place] [address] [place] [address] Aug, Depression, major, recurrent, moderate 296.32 and Posttraumatic stress disorder 309.81 [place] [id number], [place] [address] Aug, [facility] [address] [facility] [id number] [address] Aug, [facility] [address] [facility] [id number] [address] Aug, [facility] [address], [place] [address] July, Major depressive disorder, recurrent episode, moderate 296.32 and Posttraumatic stress disorder 309.81 [facility] [address] [facility] [id number] [place] [address] July, [facility] [address] [facility] [id number], [place] [address] July, [facility] [address], [place] [address] July, [facility] [address] [facility] [id number], [place] [address] July, [facility] [id number], [place] [address] Jun, [facility] [id number], [place] [address] Jun, [facility] [id number], [place] [address] May, [facility] [place] [facility] [address] [facility] [id number], [place] [address] May, [facility] [place] [facility] [address] [facility] [id number], [place] [address] May, [facility] [place] [facility] [address] [facility] [id number], [place] [address] May, [facility] [place] [facility] [address] [facility] [id number], [place] [address] May, [facility] [address] [facility] [id number] [place] [address] May, [facility] [place] [facility] [address] [id number] [place] [address] May, [facility] [place] [facility] [address] [id number] [place] [address] May, [facility] [place] [facility] [address] [facility] [id number] [place] [address] May, [facility] [place] [facility] [address] [id number] [place] [address] Apr, 2014 [facility] [place] [facility] [address] [id number] [place] [address] Apr, 2014 [facility] [place] [facility] [address] [facility] [id number] [place] [address] Apr, 2014 [facility] [place] [facility] [address] [facility] [id number] [place] [address] Apr, 2014 [facility] [place] [facility] [address] [facility] [id number] [place] [address] Apr, [facility] [place] [facility] [address] [facility] [id number] [place] [address] Apr, [facility] [place] [facility] [address] [facility] [id number] [place] [address] Apr, [facility] [place] [facility] [address] [facility] [id number] [place] [address] Apr, [facility] [place] [facility] [address] [facility] [id number] [place] [address] Apr, [facility] [place] [facility] [address] [facility] [id number] [place] [address] Mar, [facility] [place] [facility] [address] [facility] [id number] [place] [address] Mar, [facility] [place] [facility] [address] [facility] [id number] [place] [address] Mar, [facility] [place] [facility] [address] [id number] [place] [address] Mar, [facility] [place] [facility] [address] [id number] [place] [address] 15 Mar, 2014 [facility] [place] [facility] [address] [id number] [place] [address] 15 Mar, 2014 [facility] [place] [facility] [address] [id number] [place] [address] 15 Mar, 2014 [facility] [place] [facility] [address] [id number] [place] [address] 15 Mar, 2014 [facility] [place] [facility] [address] [id number] [place] [address] 15 Mar, 2014 [facility] [place] [facility] [address] [id number] [place] [address] Mar, [facility] [place] [facility] [address] [id number] [place] [address] 14 Mar, 2014 [facility] [place] [facility] [address] [id number] [place] [address] Mar, [facility] [place] [facility] [address] [id number] [place] [address] Mar, [facility] [place] [facility] [address] [id number] [address] Mar, [facility] [place] [facility] [address] [id number], [place] [address] 14 Mar, 2014 [facility] [place] [facility] [address] [id number] [place] [address] Mar, [facility] [place] [facility] [address] [id number] [address] Mar, [facility] [place] [facility] [address] [id number] [place] [address] Mar, [facility] [place] [facility] [address] [id number] [place] [id number] 16 Feb, 2014 [facility] [address] [id number] [place] [address] 16 Feb, 2014 [facility] [place] [facility] [address] [id number] [place] [address] 15 Feb, 2014 [facility] [place] [facility] [address] [id number] [place] [address] 15 Feb, 2014 [facility] [place] [facility] [address] [id number] [place] [address] 15 Feb, 2014 [facility] [place] [facility] [address] [id number] [place] [address] Feb, [facility] [place] [facility] [address] [id number] [place] [address] Jan, [facility] [place] [facility] [address] [id number] [place] [address] Jan, [facility] [place] [facility] [address] [id number] [place] [address] Jan, [facility] [place] [facility] [address] [id number] [place] [address] Jan, [facility] [place] [facility] [address] [id number] [place] [address] Jan, [facility] [place] [facility] [address] [id number] [place] [address] Jan, [facility] [place] [facility] [address] [id number] [place] [address] Jan, [facility] [place] [facility] [address] [id number] [place] [address] Jan, [facility] [place] [facility] [address] [id number] [place] [address] Jan, [facility] [place] [facility] [address] [id number] [place] [address] Jan, [facility] [place] [facility] [address] [id number] [place] [address] Dec, [facility] [place] [facility] [address] [id number] [place] [address] Dec, [facility] [place] [facility] [address] [id number] [place] [address] Dec, [facility] [place] [facility] [address] [id number] [place] [address] Dec, [facility] [place] [facility] [address] [id number] [place] [address] Nov, [facility] [place] [facility] [address] [id number] [place] [address] Nov, 2013 [facility] [place] [facility] [address] [id number] [place] [address] Nov, 2013 [facility] [place] [facility] [address] [id number] [place] [address] Nov, 2013 [facility] [place] [facility] [address] [id number] [place] [address] Nov, [facility] [place] [facility] [address] [id number] [place] [address] Nov, [facility] [place] [facility] [address] [id number] [place] [address] Oct, [facility] [place] [facility] [address] [id number] [place] [address] Oct, [facility] [place] [facility] [address] [id number] [place] [address] Oct, [facility] [place] [facility] [address] [id number] [place] [address] Oct, [facility] [place] [facility] [address] [id number] [place] [address] Sep, [facility] [place] [facility] [address] [id number] [place] [address] Sep, [facility] [place] [facility] [address] [id number] [place] [address] Sep, [facility] [place] [facility] [address] [id number] [place] [address] Sep, [facility] [place] [facility] [address] [id number] [place] [address] Sep, [facility] [place] [facility] [address] [id number] [place] [address] Sep, [facility] [place] [facility] [address] [id number] [place] [address] July, [facility] [place] [facility] [address] [id number] [place] [address] July, [facility] [place] [facility] [address] [id number] [place] [address] July, [facility] [place] [facility] [address] [id number] [place] [address] July, [facility] [place] [facility] [address] [id number] [place] [address] Jun, [facility] [place] [facility] [address] [id number] [place] [address] Jun, [facility] [place] [facility] [address] [id number] [place] [address] Jun, [facility] [place] [facility] [address] [id number] [place] [address] Jun, [facility] [place] [facility] [address] [id number] [place] [address] Jun, [facility] [place] [facility] [address] [id number] [place] [address] Jun, [facility] [place] [facility] [address] [id number] [place] [address] May, [facility] [place] [facility] [address] [id number] [place] [address] May, [facility] [place] [facility] [address] [id number] [place] [address] Apr, [facility] [place] [facility] [address] [id number] [place] [address] Apr, [facility] [place] [facility] [address] [id number] [place] [address] Apr, [facility] [place] [facility] [address] [id number] [place] [address] Apr, [facility] [place] [facility] [address] [id number] [place] [address] Apr, [facility] [place] [facility] [address] [id number] [place] [address] Apr, [facility] [place] [facility] [address] [id number] [place] [address] Apr, [facility] [place] [facility] [address] [id number] [place] [address] Mar, [facility] [place] [facility] [address] [id number] [place] [address] Mar, [facility] [place] [facility] [address] [id number] [place] [address] Mar, [facility] [place] [facility] [address] [id number] [place] [address] Mar, [facility] [place] [facility] [address] [id number] [place] [address] Mar, [facility] [place] [facility] [address] [id number] [place] [address] Mar, [facility] [place] [facility] [address] [id number] [place] [address] Mar, [facility] [place] [facility] [address] [id number], [place] [address] Mar, [facility] [address] [id number] [place] [address] Feb, [facility] [place] [facility] [address] [id number], [place] [address] Feb, [facility] [place] [facility] [address] [id number], [place] [address] Feb, [facility] [place] [facility] [address] [id number], [place] [address] Feb, [facility] [place] [facility] [address] [id number] [place] [address] Feb, [facility] [place] [facility] [address] [id number], [place] [address] Feb, [facility] [address] [id number], [place] [address] Feb, [facility] [place] [facility] [address] [id number], [place] [address] Jan, [facility] [place] [facility] [address] [id number], [place] [address] Jan, [facility] [place] [facility] [address] [id number], [place] [address] Jan, [facility] [place] [facility] [address] [id number], [place] [address] Jan, [facility] [place] [facility] [address] [id number], [place] [address] Jan, [facility] [place] [facility] [address] [id number], [place] [address] Jan, [facility] [place] [facility] [address] [id number] [id number] Jan, [facility] [place] [facility] [address] [id number] [id number] Jan, [facility] [place] [facility] [address] [id number] [place] [address] 31 Dec, 2012 [facility] [place] [facility] [address] [id number] [place] [address] Dec, 2012 [facility] [place] [facility] [address] [id number] [place] [address] Dec, 2012 [facility] [place] [facility] [address] [id number] [place] [address] Dec, 2012 [facility] [place] [facility] [address] [id number] [place] [address] Dec, 2012 [facility] [place] [facility] [address] [id number] [place] [address] Dec, 2012 [facility] [place] [facility] [address] [id number] [place] [address] Dec, 2012 [facility] [place] [facility] [address] [id number] [place] [address] Dec, 2012 [facility] [place] [facility] [address] [id number], [place] [address] 16 Dec, 2012 [facility] [place] [facility] [address] [id number] [place] [address] 04 Dec, 2012 [facility] [place] [facility] [address] [id number][place] [id number] 27 Nov, 2012 [facility] [place] [facility] [address] [id number][place] [id number] 27 Nov, 2012 [facility] [place] [facility] [address] [id number], [place] [address] 24 Sep, 2012 [facility] [place] [facility] [address] [id number] [place] [address] 20 Sep, 2012 [facility] [place] [facility] [address] [id number], [place] [address] 19 Sep, 2012 [facility] [place] [facility] [address] [id number], [place] [address] 13 Nov, 2012 [facility] [place] [facility] [address] [id number] [place] [address] Nov, [facility] [place] [facility] [address] [id number] [place] [address] Nov, [facility] [place] [facility] [address] [id number] [place] [address] Oct, [facility] [place] [facility] [address] [id number] [place] [address] Oct, [facility] [place] [facility] [address] [id number] [place] [address] Oct, [facility] [place] [facility] [address] [id number] [place] [address] Sep, [facility] [place] [facility] [address] [id number] [place] [address] Sep, [facility] [place] [facility] [address] [id number] [place] [address] Sep, [facility] [place] [facility] [address] [id number] [place] [address] Sep, [facility] [place] [facility] [address] [id number] [place] [address] Sep, [facility] [place] [facility] [address] [id number] [place] [address] Aug, [facility] [place] [facility] [address] [id number] [place] [address] Aug, [facility] [place] [facility] [address] [id number] [place] [address] Aug, [facility] [place] [facility] [address] [id number] [place] [address] Aug, [facility] [place] [facility] [address] [id number] [place] [address] Aug, [facility] [place] [facility] [address] [id number] [place] [address] Aug, [facility] [address] [id number] [place] [address] July, [facility] [address] [id number] [place] [address] July, [facility] [address] [id number] [place] [address] July, [facility] [address] [id number] [place] [address] July, [facility] [address] [id number] [place] [address] July, [facility] [address] [id number] [place] [address] July, [facility] [address] [id number] [place] [address] Jun, [facility] [address] [id number], [place] [address] Jun, [facility] [address] [id number] [place] [address] Jun, [facility] [address] [id number] [place] [address] Jun, [facility] [address] [id number], [place] [address] May, [facility] [place] [facility] [address] [id number], [place] [address] May, [facility] [place] [facility] [address] [id number] [place] [address] May, [facility] [place] [facility] [address] [id number], [place] [address] Apr, [facility] [place] [facility] [address] [id number] [place] [address] Mar, [facility] [place] [facility] [address] [id number] [place] [address] 18 Mar, 2012 [facility] [address] [id number] [place] [address] 17 Mar, 2012 [facility] [address] [id number] [place] [address] 16 Mar, 2012 [facility] [address] [id number] [place] [address] 15 Mar, 2012 [facility] [address] [id number] [place] [address] 31 Feb, 2012 [facility] [address] [id number] [place] [address] 31 Feb, 2012 [facility] [address] [id number] [place] [address] 17 Feb, 2012 [facility] [address] [id number] [place] [address] 17 Feb, 2012 [facility] [address] [id number] [place] [address] Jan, [facility] [address] [id number] [place] [address] Jan, [facility] [address] [id number] [place] [address] Jan, [facility] [address] [id number] [place] [address] Jan, [facility] [address] [id number] [place] [address] Dec, [facility] [place] [facility] [address] [id number] [place] [address] Dec, [facility] [place] [facility] [address] [id number] [place] [address] Nov, [facility] [address] [id number] [place] [address] Oct, [facility] [address] [id number] [place] [address] Oct, [facility] [address] [id number] [place] [address] Oct, [facility] [address] [id number] [place] [address] Oct, [facility] [address] [id number] [place] [address] Oct, [facility] [address] [id number] [place] [address] Sep, [facility] [address] [id number] [place] [address] Sep, [facility] [address] [facility] [id number] [place] [address] Aug, [facility] [place] [id number] Aug, [facility] [address] [id number] [place] [address] Aug, [facility] [address] [id number] [place] [address] July, [facility] [address] [facility] [id number] [place] [address] July, [facility] [address] [id number] [place] [address] Jun, [facility] [address] [id number] [place] [address] Jun, [facility] [address] [id number] [place] [address] Jun, [facility] [address] [id number] [place] [address] Jun, [facility] [address] [id number] [place] [address] 15 Apr, 2011 [facility] [place] [facility] [address] [id number] [place] [address] 15 Apr, 2011 [facility] [place] [facility] [address] [id number] [place] [address] 10 Apr, 2011 [facility] [place] [facility] [address] [id number] [place] [address] Mar, [facility] [place] [facility] [address] [id number] [place] [address] Mar, [facility] [place] [facility] [address] [id number] [place] [address] Mar, [facility] [place] [facility] [address] [id number] [place] [address] Mar, [facility] [place] [facility] [address] [id number] [place] [address] Mar, [facility] [place] [facility] [address] [id number] [place] [address] Jan, [facility] [place] [facility] [address] [id number] [place] [address] Jan, [facility] [place] [facility] [address] [id number] [place] [address] Jan, [facility] [place] [facility] [address] [id number] [place] [address] Mar, [facility] [place] [facility] [address] [id number], [place] [address] Mar, [facility] [place] [facility] [address] [id number] [place] [address] Feb, [facility] [place] [facility] [address] [id number] [place] [address] Feb, [facility] [place] [facility] [address] [id number] [place] [address] Feb, [facility] [place] [facility] [id number], [place] [address] 17 Jan, 2010 [facility] [id number], [place] [address] Jan, [facility] [address] [facility] [id number], [place] [address] Dec, [facility] [id number], [place] [address] Dec, [facility] [id number], [place] [address] May, [facility] [id number] [place] [address] Apr, [facility] [id number], [place] [address] Feb, [facility] [address]65[address], [place] [address] Feb, [facility] [address]65100[place], [place] [address] Jan, [facility] [address]65100[place], [place] [address] Jan, [facility] [address]00565100[place], [place] [address] Jan, [facility] [id number], [place] [address] Jan, [facility] [address] [id number], [place] [address] Jan, IMMUNIZATIONS No Known Immunizations SOCIAL HISTORY Never Assessed REASON FOR VISIT klonopin refill PLAN OF CARE VITAL SIGNS MEDICATIONS Medication Instructions Dosage Frequency Start Date End Date Duration Status Klonopin 1 MG Orally as needed Twice [...]
--- OUTSIDE RECORDS SUMMARY | 2018-10-04 07:24 | XMS REPORT ---
Author ESTHER Viramontes [employer] Address Unknown Phone Unavailable Care Team Providers Care Global Logistics Manager Name Role Phone ESTHER CHAVEZ CP Unavailable [...] PTSD (post-traumatic stress disorder) F43.10 Active Assessment Dysuria R30.0 Active Problem Pure hypercholesterolemia E78.0 Active Problem Essential hypertension I10 Active Assessment Urinary hesitancy R39.11 Active Problem History of weight loss surgery Z98.84 Active Medications Medication Code System Code Instructions Start Date End Date Status Dosage Trazodone HCl [facility] [address]-40 100 MG Orally Once a day Feb 10, 2015 2 tablet at bedtime Nexium [facility] 73936820015 40 MG Orally Once a day qHS 1 capsule MS Contin [facility] [address]-13 30 MG Orally Once a day in the evening Oct 22, 2014 1 tablet Hydrocodone-Acetaminophen [facility] [address]-84 5-325 MG May 29, 2014 take 1 tablet by oral route every 6 hours as needed for pain Prozac [facility] [address]-70 40 MG Orally Once a day Jan 08, 2015 1 capsule in the morning Klonopin [facility] [address]-08 1 MG Orally Twice a day Jan 08, 2015 1 tablet MS Contin [facility] [address]-38 15 MG Orally Once a day in the am Oct 22, 2014 1 tablet Tarah [facility] [address]-28 6 MG Orally Once a day Jan 08, 2015 2 tablets Procedures Procedure Coding System Code Date [facility] VISIT ESTABLISHED PATIENT CPT-4 G0467 Mar 25, 2015 Office Visit, Est Pt., Level 3 CPT-4 30770 Mar 25, 2015 URINALYSIS, AUTO, W/O SCOPE CPT-4 39989 Mar 25, 2015 Vital Signs Date/Time: Mar 25, 2015 Temperature 99.3 F Weight 265.2 lbs Height 66 in BMI 42.80 Index Blood Pressure Diastolic 94 mmHg Blood Pressure Systolic 126 mmHg Cardiac Monitoring Heart Rate 72 bpm Results Name Result Date Reference Range Unit Abnormality Flag UA LONG DIP (IN HOUSE) ----JEFF negative 20150325 ----NIT negative 20150325 ----SG 1.015 20150325 ----KET negative 20150325 ----[place] negative 20150325 ----GLU negative 20150325 ----Odor yes 20150325 ----pH 7.0 20150325 ----BLO negative 20150325 ----URO 0.2 20150325 ----Protein negative 20150325 ----Lot # [id number] ----Exp date 20150325 ----Clarity clear 20150325 ----Color dark yellow 20150325 Summary Purpose eClinicalWorks Submission
--- OUTSIDE RECORDS SUMMARY | 2018-10-04 07:24 | XMS REPORT ---
Author Author ESTHER CHAVEZ eClinicalWorks Address Unknown Phone Unavailable Care Team Providers Care Incident Response Engineer Name Role Phone ESTHER CHAVEZ CP [...] Start Date End Date Status Dosage Hydrocodone-Acetaminophen [facility] [address]-78 5-325 MG May 29, 2014 take 1 tablet by oral route every 6 hours as needed for pain MS Contin [facility] [address]-80 15 MG Orally Once a day in the am Oct 22, 2014 1 tablet MS Contin [facility] [address]-74 30 MG Orally Once a day in the evening Oct 22, 2014 1 tablet Results No Known Results Summary Purpose eClinicalWorks Submission
[2018-10-04] MEDS ORDERED: SUCCINYLCHOLINE INJ 100 MG/5 ML SYR ONE (07:30)
[2018-10-04] MEDS ORDERED: oxyCODONE/APAP 5/325MG (PERCOCET 5) TABLET PO PRN (07:30)
--- OUTSIDE RECORDS SUMMARY | 2018-10-04 07:32 | XMS REPORT | Continuity of Care Document ---
Author Organization Unknown Address Unknown Allergies Active Description Code Type Severity Reaction Onset Reported/Identified Relationship to Patient Clinical Status Yes NKANo Known Allergies NKA Miscellaneous Allergy Mild N/A 01/25/2009 Yes Chantix Drug Allergy 12/02/2009 Yes Chantix Drug Allergy N/A N/A 12/02/2009 Yes Phenteramine Drug Allergy 01/14/2011 Yes varenicline [id number] Drug Allergy Mild N/V 01/24/2018 Yes vortioxetine [id number] Drug Allergy Unknown Vomiting 09/22/2018 Medications There is no data. Problems Date Dx Coded Attending Type Code Diagnosis Diagnosed By 01/22/2009 278.00 OBESITY 01/22/2009 327.23 SLEEP APNEA OBSTRUCTIVE 01/22/2009 453.40 Venous Thrombosis Deep Vessels Of Lower Extremity 01/22/2009 782.3 Edema 01/22/2009 JOHNY GARNER MD 278.00 OBESITY 01/22/2009 JOHNY GARNER MD 327.23 SLEEP APNEA OBSTRUCTIVE 01/22/2009 JOHNY GARNER MD 453.40 Venous Thrombosis Deep Vessels Of Lower Extremity 01/22/2009 JOHNY GARNER MD 782.3 Edema 01/22/2009 278.00 OBESITY 01/22/2009 327.23 SLEEP APNEA OBSTRUCTIVE 01/22/2009 453.40 Venous Thrombosis Deep Vessels Of Lower Extremity 01/22/2009 782.3 Edema 01/22/2009 278.00 OBESITY 01/22/2009 327.23 SLEEP APNEA OBSTRUCTIVE 01/22/2009 453.40 Venous Thrombosis Deep Vessels Of Lower Extremity 01/22/2009 782.3 Edema 01/22/2009 JOHNY GARNER MD 278.00 OBESITY 01/22/2009 JOHNY GARNER MD 327.23 SLEEP APNEA OBSTRUCTIVE 01/22/2009 JOHNY GARNER MD 453.40 Venous Thrombosis Deep Vessels Of Lower Extremity 01/22/2009 JOHNY GARNER MD 782.3 Edema 01/22/2009 JENN DONALD LCPC 278.00 OBESITY 01/22/2009 JENN DONALD LCPC 327.23 SLEEP APNEA OBSTRUCTIVE 01/22/2009 JENN DONALD LCPC B 453.40 Venous Thrombosis Deep Vessels Of Lower Extremity 01/22/2009 JENN DONALD LCPC B 782.3 Edema 01/22/2009 278.00 OBESITY 01/22/2009 327.23 SLEEP APNEA OBSTRUCTIVE 01/22/2009 453.40 Venous Thrombosis Deep Vessels Of Lower Extremity 01/22/2009 782.3 Edema 01/22/2009 278.00 OBESITY 01/22/2009 327.23 SLEEP APNEA OBSTRUCTIVE 01/22/2009 453.40 Venous Thrombosis Deep Vessels Of Lower Extremity 01/22/2009 782.3 Edema 01/22/2009 278.00 OBESITY 01/22/2009 327.23 SLEEP APNEA OBSTRUCTIVE 01/22/2009 453.40 Venous Thrombosis Deep Vessels Of Lower Extremity 01/22/2009 782.3 Edema 01/22/2009 278.00 OBESITY 01/22/2009 327.23 SLEEP APNEA OBSTRUCTIVE 01/22/2009 453.40 Venous Thrombosis Deep Vessels Of Lower Extremity 01/22/2009 782.3 EDEMA 01/22/2009 278.00 OBESITY 01/22/2009 327.23 SLEEP APNEA OBSTRUCTIVE 01/22/2009 453.40 Venous Thrombosis Deep Vessels Of Lower Extremity 01/22/2009 782.3 EDEMA 01/22/2009 278.00 OBESITY 01/22/2009 327.23 SLEEP APNEA OBSTRUCTIVE 01/22/2009 453.40 Venous Thrombosis Deep Vessels Of Lower Extremity 01/22/2009 782.3 EDEMA 01/22/2009 278.00 OBESITY 01/22/2009 327.23 SLEEP APNEA OBSTRUCTIVE 01/22/2009 453.40 Venous Thrombosis Deep Vessels Of Lower Extremity 01/22/2009 782.3 EDEMA 01/22/2009 KAT AGUILAR MD 278.00 OBESITY 01/22/2009 KAT AGUILAR MD 327.23 SLEEP APNEA OBSTRUCTIVE 01/22/2009 KAT AGUILAR MD 453.40 Venous Thrombosis Deep Vessels Of Lower Extremity 01/22/2009 KAT AGUILAR MD 782.3 Edema 01/22/2009 278.00 OBESITY 01/22/2009 327.23 SLEEP APNEA OBSTRUCTIVE 01/22/2009 453.40 Venous Thrombosis Deep Vessels Of Lower Extremity 01/22/2009 782.3 EDEMA 01/22/2009 [facility], [place] R 278.00 OBESITY 01/22/2009 [facility], [place] R 327.23 SLEEP APNEA OBSTRUCTIVE 01/22/2009 [facility], [place] R 453.40 Venous Thrombosis Deep Vessels Of Lower Extremity 01/22/2009 [facility], [place] R 782.3 EDEMA 01/22/2009 JOHNY GARNER MD 278.00 OBESITY 01/22/2009 JOHNY GARNER MD 327.23 SLEEP APNEA OBSTRUCTIVE 01/22/2009 JOHNY GARNER MD 453.40 Venous Thrombosis Deep Vessels Of Lower Extremity 01/22/2009 JOHNY GARNER MD 782.3 EDEMA 01/22/2009 [facility] DDS, RAFAELA D 278.00 OBESITY 01/22/2009 WHITE DDS, RAFAELA D 327.23 SLEEP APNEA OBSTRUCTIVE 01/22/2009 WHITE DDS, RAFAELA D 453.40 Venous Thrombosis Deep Vessels Of Lower Extremity 01/22/2009 WHITE DDS, RAFAELA D 782.3 EDEMA 01/22/2009 [facility], [place] R 278.00 OBESITY 01/22/2009 [facility], [place] R 327.23 SLEEP APNEA OBSTRUCTIVE 01/22/2009 [facility], [place] R 453.40 Venous Thrombosis Deep Vessels Of Lower Extremity 01/22/2009 [facility], [place] R 782.3 EDEMA 01/22/2009 JOHNY GARNER MD 278.00 OBESITY 01/22/2009 JOHNY GARNER MD 327.23 SLEEP APNEA OBSTRUCTIVE 01/22/2009 JOHNY GARNER MD 453.40 Venous Thrombosis Deep Vessels Of Lower Extremity 01/22/2009 JOHNY GARNER MD 782.3 EDEMA 01/22/2009 CHAVIS DO, KISHA K 278.00 OBESITY 01/22/2009 CHAVIS DO, KISHA K 327.23 SLEEP APNEA OBSTRUCTIVE 01/22/2009 CHAVIS DO, KISHA K 453.40 Venous Thrombosis Deep Vessels Of Lower Extremity 01/22/2009 CHAVIS DO, KISHA K 782.3 EDEMA 01/22/2009 [facility], [place] R 278.00 OBESITY 01/22/2009 [facility], [place] R 327.23 SLEEP APNEA OBSTRUCTIVE 01/22/2009 [facility], [place] R 453.40 Venous Thrombosis Deep Vessels Of Lower Extremity 01/22/2009 [facility], [place] R 782.3 EDEMA 01/22/2009 WHITE DDS, RAFAELA D 278.00 OBESITY 01/22/2009 WHITE DDS, RAFAELA D 327.23 SLEEP APNEA OBSTRUCTIVE 01/22/2009 WHITE DDS, RAFAELA D 453.40 Venous Thrombosis Deep Vessels Of Lower Extremity 01/22/2009 WHITE DDS, RAFAELA D 782.3 EDEMA 01/22/2009 JOHNY GARNER MD 278.00 OBESITY 01/22/2009 JOHNY GARNER MD 327.23 SLEEP APNEA OBSTRUCTIVE 01/22/2009 JOHNY GARNER MD 453.40 Venous Thrombosis Deep Vessels Of Lower Extremity 01/22/2009 JOHNY GARNER MD 782.3 EDEMA 01/22/2009 PASCUAL CHING, JOHNY 278.00 OBESITY 01/22/2009 JOHNY GARNER MD 327.23 SLEEP APNEA OBSTRUCTIVE 01/22/2009 JOHNY GARNER MD 453.40 Venous Thrombosis Deep Vessels Of Lower Extremity 01/22/2009 JOHNY GARNER MD 782.3 EDEMA 01/22/2009 WHITE DDS, RAFAELA D 278.00 OBESITY 01/22/2009 WHITE DDS, RAFAELA D 327.23 SLEEP APNEA OBSTRUCTIVE 01/22/2009 WHITE DDS, RAFAELA D 453.40 Venous Thrombosis Deep Vessels Of Lower Extremity 01/22/2009 CAT DDS, RAFAELA D 782.3 EDEMA 01/22/2009 JOHNY GARNER MD 278.00 OBESITY 01/22/2009 JOHNY GARNER MD 327.23 SLEEP APNEA OBSTRUCTIVE 01/22/2009 JOHNY GARNER MD 453.40 Venous Thrombosis Deep Vessels Of Lower Extremity 01/22/2009 JOHNY GARNER MD 782.3 EDEMA 01/22/2009 JOHNY GARNER MD 278.00 OBESITY 01/22/2009 JOHNY GARNER MD 327.23 SLEEP APNEA OBSTRUCTIVE 01/22/2009 JOHNY GARNER MD 453.40 Venous Thrombosis Deep Vessels Of Lower Extremity 01/22/2009 JOHNY GARNER MD 782.3 EDEMA 01/22/2009 [facility], [place] R 278.00 OBESITY 01/22/2009 [facility], [place] R 327.23 SLEEP APNEA OBSTRUCTIVE 01/22/2009 [facility], [place] R 453.40 Venous Thrombosis Deep Vessels Of Lower Extremity 01/22/2009 [facility], [place] R 782.3 EDEMA 01/22/2009 JOHNY GARNER MD 278.00 OBESITY 01/22/2009 JOHNY GARNER MD 327.23 SLEEP APNEA OBSTRUCTIVE 01/22/2009 JOHNY GARNER MD 453.40 Venous Thrombosis Deep Vessels Of Lower Extremity 01/22/2009 JOHNY GARNER MD 782.3 EDEMA 01/22/2009 [facility] [place] R 278.00 OBESITY 01/22/2009 [facility] [place] R 327.23 SLEEP APNEA OBSTRUCTIVE 01/22/2009 [facility] [place] R 453.40 Venous Thrombosis Deep Vessels Of Lower Extremity 01/22/2009 [facility] [place] R 782.3 EDEMA 01/22/2009 [facility], [place] R 278.00 OBESITY 01/22/2009 [facility], ADIILA R 327.23 SLEEP APNEA OBSTRUCTIVE 01/22/2009 [facility] [place] R 453.40 Venous Thrombosis Deep Vessels Of Lower Extremity 01/22/2009 [facility] [place] R 782.3 EDEMA 01/22/2009 [facility] [place] R 278.00 OBESITY 01/22/2009 [facility] [place] R 327.23 SLEEP APNEA OBSTRUCTIVE 01/22/2009 [facility], [place] R 453.40 Venous Thrombosis Deep Vessels Of Lower Extremity 01/22/2009 [facility], [place] R 782.3 EDEMA 01/22/2009 JOHNY GARNER MD 278.00 OBESITY 01/22/2009 JOHNY GARNER MD 327.23 SLEEP APNEA OBSTRUCTIVE 01/22/2009 JOHNY GARNER MD 453.40 Venous Thrombosis Deep Vessels Of Lower Extremity 01/22/2009 JOHNY GARNER MD 782.3 EDEMA 01/22/2009 ESTHER CHAVEZ MD N 278.00 OBESITY 01/22/2009 ESTHER CHAVEZ MD N 327.23 SLEEP APNEA OBSTRUCTIVE 01/22/2009 ESTHER CHAVEZ MD N 453.40 Venous Thrombosis Deep Vessels Of Lower Extremity 01/22/2009 ESTHER CHAVEZ MD N 782.3 EDEMA 01/22/2009 [facility] [place] R 278.00 OBESITY 01/22/2009 [facility] [place] R 327.23 SLEEP APNEA OBSTRUCTIVE 01/22/2009 [facility], [place] R 453.40 Venous Thrombosis Deep Vessels Of Lower Extremity 01/22/2009 [facility], [place] R 782.3 EDEMA 01/22/2009 ESTHER CHAVEZ MD N 278.00 OBESITY 01/22/2009 ESTHER CHAVEZ MD N 327.23 SLEEP APNEA OBSTRUCTIVE 01/22/2009 ESTHER CHAVEZ MD N 453.40 Venous Thrombosis Deep Vessels Of Lower Extremity 01/22/2009 ESTHER CHAVEZ MD N 782.3 EDEMA 01/22/2009 [facility], [place] 278.00 OBESITY 01/22/2009 [facility], [place] 327.23 SLEEP APNEA OBSTRUCTIVE 01/22/2009 [facility], [place] 453.40 Venous Thrombosis Deep Vessels Of Lower Extremity 01/22/2009 [facility], [place] 782.3 EDEMA 01/22/2009 ESTHER CHAVEZ MD N 278.00 OBESITY 01/22/2009 ESTHER CHAVEZ MD N 327.23 SLEEP APNEA OBSTRUCTIVE 01/22/2009 ESTHER CHAVEZ MD N 453.40 Venous Thrombosis Deep Vessels Of Lower Extremity 01/22/2009 ESTHER CHAVEZ MD N 782.3 EDEMA 01/22/2009 [facility], [place] 278.00 OBESITY 01/22/2009 [facility], [place] 327.23 SLEEP APNEA OBSTRUCTIVE 01/22/2009 [facility], [place] R 453.40 Venous Thrombosis Deep Vessels Of Lower Extremity 01/22/2009 [facility], [place] R 782.3 EDEMA 01/22/2009 ESTHER CHAVEZ MD N 278.00 OBESITY 01/22/2009 ESTHER CHAVEZ MD N 327.23 SLEEP APNEA OBSTRUCTIVE 01/22/2009 ESTHER CHAVEZ MD N 453.40 Venous Thrombosis Deep Vessels Of Lower Extremity 01/22/2009 ESTHER CHAVEZ MD N 782.3 EDEMA 01/22/2009 ESTHER CHAVEZ MD N 278.00 OBESITY 01/22/2009 ESTHER CHAVEZ MD N 327.23 SLEEP APNEA OBSTRUCTIVE 01/22/2009 ESTHER CHAVEZ MD N 453.40 Venous Thrombosis Deep Vessels Of Lower Extremity 01/22/2009 ESTHER CHAVEZ MD N 782.3 EDEMA 01/22/2009 ESTHER CHAVEZ MD N 278.00 OBESITY 01/22/2009 ESTHER CHAVEZ MD N 327.23 SLEEP APNEA OBSTRUCTIVE 01/22/2009 ESTHER CHAVEZ MD N 453.40 Venous Thrombosis Deep Vessels Of Lower Extremity 01/22/2009 BRIAN CHAVEZ MDY N 782.3 EDEMA 01/22/2009 KATHY CHING, ESTHER N 278.00 OBESITY 01/22/2009 KATHY CHING ESTHER N 327.23 SLEEP APNEA OBSTRUCTIVE 01/22/2009 BRIAN CHAVEZ MDY N 453.40 Venous Thrombosis Deep Vessels Of Lower Extremity 01/22/2009 ESTHER CHAVEZ MD N 782.3 EDEMA 01/22/2009 [employer], PARI M 278.00 OBESITY 01/22/2009 [employer], PARI M 327.23 SLEEP APNEA OBSTRUCTIVE 01/22/2009 [employer], PARI M 453.40 Venous Thrombosis Deep Vessels Of Lower Extremity 01/22/2009 [employer]PER[employer], PARI M 782.3 EDEMA 01/22/2009 KATHY CHING ESTHER N 278.00 OBESITY 01/22/2009 BRIAN CHAVEZ MDY N 327.23 SLEEP APNEA OBSTRUCTIVE 01/22/2009 BRIAN CHAVEZ MDY N 453.40 Venous Thrombosis Deep Vessels Of Lower Extremity 01/22/2009 BRIAN CHAVEZ MDY N 782.3 EDEMA 01/22/2009 KATHY CHING ESTHER N 278.00 OBESITY 01/22/2009 ESTHER CHAVEZ MD N 327.23 SLEEP APNEA OBSTRUCTIVE 01/22/2009 BRIAN CHAVEZ MDY N 453.40 Venous Thrombosis Deep Vessels Of Lower Extremity 01/22/2009 ESTHER CHAVEZ MD N 782.3 EDEMA 01/30/2009 401.9 UNSPECIFIED ESSENTIAL HYPERTENSION 01/30/2009 459.81 VENOUS (PERIPHERAL) INSUFFICIENCY, UNSPECIFIED 01/30/2009 V15.82 OTHER SPECIFIED PERSONAL HISTORY PRESENTING HAZARDS TO HEALTH, HISTORY OF TOBACCO USE 01/30/2009 JOHNY GARNER MD 401.9 UNSPECIFIED ESSENTIAL HYPERTENSION 01/30/2009 JOHNY GARNER MD 459.81 VENOUS (PERIPHERAL) INSUFFICIENCY, UNSPECIFIED 01/30/2009 JOHNY GARNER MD V15.82 Other Specified Personal History Presenting Hazards To Health, History Of Tobacco Use 01/30/2009 401.9 UNSPECIFIED ESSENTIAL HYPERTENSION 01/30/2009 459.81 VENOUS (PERIPHERAL) INSUFFICIENCY, UNSPECIFIED 01/30/2009 V15.82 Other Specified Personal History Presenting Hazards To Health, History Of Tobacco Use 01/30/2009 401.9 UNSPECIFIED ESSENTIAL HYPERTENSION 01/30/2009 459.81 VENOUS (PERIPHERAL) INSUFFICIENCY, UNSPECIFIED 01/30/2009 V15.82 Other Specified Personal History Presenting Hazards To Health, History Of Tobacco Use 01/30/2009 JOHNY GARNER MD 401.9 UNSPECIFIED ESSENTIAL HYPERTENSION 01/30/2009 JOHNY GARNER MD 459.81 VENOUS (PERIPHERAL) INSUFFICIENCY, UNSPECIFIED 01/30/2009 JOHNY GARNER MD V15.82 Other Specified Personal History Presenting Hazards To Health, History Of Tobacco Use 01/30/2009 JENN DONALD LCPC B 401.9 UNSPECIFIED ESSENTIAL HYPERTENSION 01/30/2009 SHABANA TICKET WRITERJENN CONRAD B 459.81 VENOUS (PERIPHERAL) INSUFFICIENCY, UNSPECIFIED 01/30/2009 SHABANA MENDOZA JENN B V15.82 Other Specified Personal History Presenting Hazards To Health, History Of Tobacco Use 01/30/2009 401.9 UNSPECIFIED ESSENTIAL HYPERTENSION 01/30/2009 459.81 VENOUS (PERIPHERAL) INSUFFICIENCY, UNSPECIFIED 01/30/2009 V15.82 Other Specified Personal History Presenting Hazards To Health, History Of Tobacco Use 01/30/2009 401.9 UNSPECIFIED ESSENTIAL HYPERTENSION 01/30/2009 459.81 VENOUS (PERIPHERAL) INSUFFICIENCY, UNSPECIFIED 01/30/2009 V15.82 Other Specified Personal History Presenting Hazards To Health, History Of Tobacco Use 01/30/2009 401.9 UNSPECIFIED ESSENTIAL HYPERTENSION 01/30/2009 459.81 VENOUS (PERIPHERAL) INSUFFICIENCY, UNSPECIFIED 01/30/2009 V15.82 Other Specified Personal History Presenting Hazards To Health, History Of Tobacco Use 01/30/2009 401.9 UNSPECIFIED ESSENTIAL HYPERTENSION 01/30/2009 459.81 VENOUS (PERIPHERAL) INSUFFICIENCY, UNSPECIFIED 01/30/2009 V15.82 Other Specified Personal History Presenting Hazards To Health, History Of Tobacco Use 01/30/2009 401.9 UNSPECIFIED ESSENTIAL HYPERTENSION 01/30/2009 459.81 VENOUS (PERIPHERAL) INSUFFICIENCY, UNSPECIFIED 01/30/2009 V15.82 Other Specified Personal History Presenting Hazards To Health, History Of Tobacco Use 01/30/2009 401.9 UNSPECIFIED ESSENTIAL HYPERTENSION 01/30/2009 459.81 VENOUS (PERIPHERAL) INSUFFICIENCY, UNSPECIFIED 01/30/2009 V15.82 Other Specified Personal History Presenting Hazards To Health, History Of Tobacco Use 01/30/2009 401.9 UNSPECIFIED ESSENTIAL HYPERTENSION 01/30/2009 459.81 VENOUS (PERIPHERAL) INSUFFICIENCY, UNSPECIFIED 01/30/2009 V15.82 Other Specified Personal History Presenting Hazards To Health, History Of Tobacco Use 01/30/2009 KAT AGUILAR MD 401.9 UNSPECIFIED ESSENTIAL HYPERTENSION 01/30/2009 KAT AGUILAR MD 459.81 VENOUS (PERIPHERAL) INSUFFICIENCY, UNSPECIFIED 01/30/2009 KAT AGUILAR MD V15.82 OTHER SPECIFIED PERSONAL HISTORY PRESENTING HAZARDS TO HEALTH, HISTORY OF TOBACCO USE 01/30/2009 401.9 UNSPECIFIED ESSENTIAL HYPERTENSION 01/30/2009 459.81 VENOUS (PERIPHERAL) INSUFFICIENCY, UNSPECIFIED 01/30/2009 V15.82 Other Specified Personal History Presenting Hazards To Health, History Of Tobacco Use 01/30/2009 [facility], [place] R 401.9 UNSPECIFIED ESSENTIAL HYPERTENSION 01/30/2009 [facility], [place] R 459.81 VENOUS (PERIPHERAL) INSUFFICIENCY, UNSPECIFIED 01/30/2009 [facility], [place] V15.82 Other Specified Personal History Presenting Hazards To Health, History Of Tobacco Use 01/30/2009 JOHNY GARNER MD 401.9 UNSPECIFIED ESSENTIAL HYPERTENSION 01/30/2009 JOHNY GARNER MD 459.81 VENOUS (PERIPHERAL) INSUFFICIENCY, UNSPECIFIED 01/30/2009 JOHNY GARNER MD V15.82 Other Specified Personal History Presenting Hazards To Health, History Of Tobacco Use 01/30/2009 WHITE DDS, RAFAELA D 401.9 UNSPECIFIED ESSENTIAL HYPERTENSION 01/30/2009 WHITE DDS, RAFAELA D 459.81 VENOUS (PERIPHERAL) INSUFFICIENCY, UNSPECIFIED 01/30/2009 WHITE DDS, RAFAELA D V15.82 Other Specified Personal History Presenting Hazards To Health, History Of Tobacco Use 01/30/2009 [facility], [place] 401.9 UNSPECIFIED ESSENTIAL HYPERTENSION 01/30/2009 [facility], [place] R 459.81 VENOUS (PERIPHERAL) INSUFFICIENCY, UNSPECIFIED 01/30/2009 [facility], [place] V15.82 Other Specified Personal History Presenting Hazards To Health, History Of Tobacco Use 01/30/2009 JOHNY GARNER MD 401.9 UNSPECIFIED ESSENTIAL HYPERTENSION 01/30/2009 JOHNY GARNER MD 459.81 VENOUS (PERIPHERAL) INSUFFICIENCY, UNSPECIFIED 01/30/2009 JOHNY GARNER MD V15.82 Other Specified Personal History Presenting Hazards To Health, History Of Tobacco Use 01/30/2009 [place] DOKISHA K 401.9 UNSPECIFIED ESSENTIAL HYPERTENSION 01/30/2009 CHAVIS DO, KISHA K 459.81 VENOUS (PERIPHERAL) INSUFFICIENCY, UNSPECIFIED 01/30/2009 KISHA CHAVIS DO K V15.82 Other Specified Personal History Presenting Hazards To Health, History Of Tobacco Use 01/30/2009 [facility], [place] 401.9 UNSPECIFIED ESSENTIAL HYPERTENSION 01/30/2009 [facility], [place] R 459.81 VENOUS (PERIPHERAL) INSUFFICIENCY, UNSPECIFIED 01/30/2009 [facility], [place] V15.82 Other Specified Personal History Presenting Hazards To Health, History Of Tobacco Use 01/30/2009 CAT KIDDSRAFAELA 401.9 UNSPECIFIED ESSENTIAL HYPERTENSION 01/30/2009 CAT KIDDSRAFAELA 459.81 VENOUS (PERIPHERAL) INSUFFICIENCY, UNSPECIFIED 01/30/2009 RAFAELA SHELTON DDS V15.82 Other Specified Personal History Presenting Hazards To Health, History Of Tobacco Use 01/30/2009 JOHNY GARNER MD 401.9 UNSPECIFIED ESSENTIAL HYPERTENSION 01/30/2009 JOHNY GARNER MD 459.81 VENOUS (PERIPHERAL) INSUFFICIENCY, UNSPECIFIED 01/30/2009 JOHNY GARNER MD V15.82 Other Specified Personal History Presenting Hazards To Health, History Of Tobacco Use 01/30/2009 JOHNY GARNER MD 401.9 UNSPECIFIED ESSENTIAL HYPERTENSION 01/30/2009 JOHNY GARNER MD 459.81 VENOUS (PERIPHERAL) INSUFFICIENCY, UNSPECIFIED 01/30/2009 JOHNY GARNER MD V15.82 Other Specified Personal History Presenting Hazards To Health, History Of Tobacco Use 01/30/2009 CAT KIDDSRAFAELA D 401.9 UNSPECIFIED ESSENTIAL HYPERTENSION 01/30/2009 RAFAELA SHELTON DDS 459.81 VENOUS (PERIPHERAL) INSUFFICIENCY, UNSPECIFIED 01/30/2009 RAFAELA SHELTON DDS V15.82 Other Specified Personal History Presenting Hazards To Health, History Of Tobacco Use 01/30/2009 JOHNY GARNER MD 401.9 UNSPECIFIED ESSENTIAL HYPERTENSION 01/30/2009 JOHNY GARNER MD 459.81 VENOUS (PERIPHERAL) INSUFFICIENCY, UNSPECIFIED 01/30/2009 JOHNY GARNER MD V15.82 Other Specified Personal History Presenting Hazards To Health, History Of Tobacco Use 01/30/2009 JOHNY GARNER MD 401.9 UNSPECIFIED ESSENTIAL HYPERTENSION 01/30/2009 JOHNY GARNER MD 459.81 VENOUS (PERIPHERAL) INSUFFICIENCY, UNSPECIFIED 01/30/2009 JOHNY GARNER MD V15.82 Other Specified Personal History Presenting Hazards To Health, History Of Tobacco Use 01/30/2009 [facility], [place] 401.9 UNSPECIFIED ESSENTIAL HYPERTENSION 01/30/2009 [facility], [place] R 459.81 VENOUS (PERIPHERAL) INSUFFICIENCY, UNSPECIFIED 01/30/2009 [facility], [place] V15.82 Other Specified Personal History Presenting Hazards To Health, History Of Tobacco Use 01/30/2009 JOHNY GARNER MD 401.9 UNSPECIFIED ESSENTIAL HYPERTENSION 01/30/2009 JOHNY GARNER MD 459.81 VENOUS (PERIPHERAL) INSUFFICIENCY, UNSPECIFIED 01/30/2009 JOHNY GARNER MD V15.82 Other Specified Personal History Presenting Hazards To Health, History Of Tobacco Use 01/30/2009 [facility], [place] 401.9 UNSPECIFIED ESSENTIAL HYPERTENSION 01/30/2009 [facility], [place] R 459.81 VENOUS (PERIPHERAL) INSUFFICIENCY, UNSPECIFIED 01/30/2009 [facility], [place] V15.82 Other Specified Personal History Presenting Hazards To Health, History Of Tobacco Use 01/30/2009 [facility], [place] 401.9 UNSPECIFIED ESSENTIAL HYPERTENSION 01/30/2009 [facility], [place] R 459.81 VENOUS (PERIPHERAL) INSUFFICIENCY, UNSPECIFIED 01/30/2009 [facility], [place] V15.82 Other Specified Personal History Presenting Hazards To Health, History Of Tobacco Use 01/30/2009 [facility], [place] 401.9 UNSPECIFIED ESSENTIAL HYPERTENSION 01/30/2009 [facility], [place] 459.81 VENOUS (PERIPHERAL) INSUFFICIENCY, UNSPECIFIED 01/30/2009 [facility], [place] V15.82 Other Specified Personal History Presenting Hazards To Health, History Of Tobacco Use 01/30/2009 JOHNY GARNER MD 401.9 UNSPECIFIED ESSENTIAL HYPERTENSION 01/30/2009 JOHNY GARNER MD 459.81 VENOUS (PERIPHERAL) INSUFFICIENCY, UNSPECIFIED 01/30/2009 JOHNY GARNER MD V15.82 Other Specified Personal History Presenting Hazards To Health, History Of Tobacco Use 01/30/2009 ESTHER CHAVEZ MD 401.9 UNSPECIFIED ESSENTIAL HYPERTENSION 01/30/2009 ESTHER CHAVEZ MD 459.81 VENOUS (PERIPHERAL) INSUFFICIENCY, UNSPECIFIED 01/30/2009 ESTHER CHAVEZ MD V15.82 Other Specified Personal History Presenting Hazards To Health, History Of Tobacco Use 01/30/2009 [facility], [place] [facility] 401.9 UNSPECIFIED ESSENTIAL HYPERTENSION 01/30/2009 [facility], [place] R 459.81 VENOUS (PERIPHERAL) INSUFFICIENCY, UNSPECIFIED 01/30/2009 [facility], [place] [facility] V15.82 Other Specified Personal History Presenting Hazards To Health, History Of Tobacco Use 01/30/2009 ESTHER CHAVEZ MD 401.9 UNSPECIFIED ESSENTIAL HYPERTENSION 01/30/2009 ESTHER CHAVEZ MD 459.81 VENOUS (PERIPHERAL) INSUFFICIENCY, UNSPECIFIED 01/30/2009 ESTHER CHAVEZ MD V15.82 Other Specified Personal History Presenting Hazards To Health, History Of Tobacco Use 01/30/2009 [facility] DDSBYRON 401.9 UNSPECIFIED ESSENTIAL HYPERTENSION 01/30/2009 [facility] DDSBY[facility] 459.81 VENOUS (PERIPHERAL) INSUFFICIENCY, UNSPECIFIED 01/30/2009 [facility]O [place] SINGH V15.82 Other Specified Personal History Presenting Hazards To Health, History Of Tobacco Use 01/30/2009 ESTHER CHAVEZ MD 401.9 UNSPECIFIED ESSENTIAL HYPERTENSION 01/30/2009 ESTHER CHAVEZ MD 459.81 VENOUS (PERIPHERAL) INSUFFICIENCY, UNSPECIFIED 01/30/2009 ESTHER CHAVEZ MD V15.82 Other Specified Personal History Presenting Hazards To Health, History Of Tobacco Use 01/30/2009 [facility], ADILIA R 401.9 UNSPECIFIED ESSENTIAL HYPERTENSION 01/30/2009 [facility], [place] R 459.81 VENOUS (PERIPHERAL) INSUFFICIENCY, UNSPECIFIED 01/30/2009 [facility], [place] R V15.82 Other Specified Personal History Presenting Hazards To Health, History Of Tobacco Use 01/30/2009 ESTHER CHAVEZ MD N 401.9 UNSPECIFIED ESSENTIAL HYPERTENSION 01/30/2009 ESTHER CHAVEZ MD 459.81 VENOUS (PERIPHERAL) INSUFFICIENCY, UNSPECIFIED 01/30/2009 ESTHER CHAVEZ MD N V15.82 Other Specified Personal History Presenting Hazards To Health, History Of Tobacco Use 01/30/2009 ESTHER CHAVEZ MD 401.9 UNSPECIFIED ESSENTIAL HYPERTENSION 01/30/2009 ESTHER CHAVEZ MD 459.81 VENOUS (PERIPHERAL) INSUFFICIENCY, UNSPECIFIED 01/30/2009 ESTHER CHAVEZ MD V15.82 Other Specified Personal History Presenting Hazards To Health, History Of Tobacco Use 01/30/2009 ESTHER CHAVEZ MD N 401.9 UNSPECIFIED ESSENTIAL HYPERTENSION 01/30/2009 ESTHER CHAVEZ MD 459.81 VENOUS (PERIPHERAL) INSUFFICIENCY, UNSPECIFIED 01/30/2009 ESTHER CHAVEZ MD N V15.82 Other Specified Personal History Presenting Hazards To Health, History Of Tobacco Use 01/30/2009 ESTHER CHAVEZ MD 401.9 UNSPECIFIED ESSENTIAL HYPERTENSION 01/30/2009 ESTHER CHAVEZ MD 459.81 VENOUS (PERIPHERAL) INSUFFICIENCY, UNSPECIFIED 01/30/2009 ESTHER CHAVEZ MD N V15.82 Other Specified Personal History Presenting Hazards To Health, History Of Tobacco Use 01/30/2009 PARI VILLAGRAN M 401.9 UNSPECIFIED ESSENTIAL HYPERTENSION 01/30/2009 SHANNON SALINAS, PARI M 459.81 VENOUS (PERIPHERAL) INSUFFICIENCY, UNSPECIFIED 01/30/2009 SHANNON SALINAS, PARI M V15.82 Other Specified Personal History Presenting Hazards To Health, History Of Tobacco Use 01/30/2009 ESTHER CHAVEZ MD 401.9 UNSPECIFIED ESSENTIAL HYPERTENSION 01/30/2009 ESTHER CHAVEZ MD 459.81 VENOUS (PERIPHERAL) INSUFFICIENCY, UNSPECIFIED 01/30/2009 ESTHER CHAVEZ MD N V15.82 Other Specified Personal History Presenting Hazards To Health, History Of Tobacco Use 01/30/2009 ESTHER CHAVEZ MD N 401.9 UNSPECIFIED ESSENTIAL HYPERTENSION 01/30/2009 ESTHER CHAVEZ MD N 459.81 VENOUS (PERIPHERAL) INSUFFICIENCY, UNSPECIFIED 01/30/2009 ESTHER CHAVEZ MD N V15.82 Other Specified Personal History Presenting Hazards To Health, History Of Tobacco Use 02/13/2009 729.5 PAIN IN LIMB 02/13/2009 JOHNY GARNER MD 729.5 Pain In Limb 02/13/2009 729.5 Pain In Limb 02/13/2009 729.5 Pain In Limb 02/13/2009 JOHNY GARNER MD 729.5 Pain In Limb 02/13/2009 JENN DONALD LCPC 729.5 Pain In Limb 02/13/2009 729.5 Pain In Limb 02/13/2009 729.5 Pain In Limb 02/13/2009 729.5 Pain In Limb 02/13/2009 729.5 Pain In Limb 02/13/2009 729.5 Pain In Limb 02/13/2009 729.5 Pain In Limb 02/13/2009 729.5 Pain In Limb 02/13/2009 KAT AGUILAR MD 729.5 PAIN IN LIMB 02/13/2009 729.5 Pain In Limb 02/13/2009 [facility], ADILIA R 729.5 Pain In Limb 02/13/2009 JOHNY GARNER MD 729.5 Pain In Limb 02/13/2009 CAT SINGH, RAFAELA D 729.5 Pain In Limb 02/13/2009 [facility], ADILIA R 729.5 Pain In Limb 02/13/2009 JOHNY GARNER MD 729.5 Pain In Limb 02/13/2009 KISHA CHAVIS DO 729.5 Pain In Limb 02/13/2009 [facility], ADILIA R 729.5 Pain In Limb 02/13/2009 CAT SINGH, RAFAELA D 729.5 Pain In Limb 02/13/2009 JOHNY GARNER MD 729.5 Pain In Limb 02/13/2009 JOHNY GARNER MD 729.5 Pain In Limb 02/13/2009 CAT SINGH, RAFAELA D 729.5 Pain In Limb 02/13/2009 JOHNY GARNER MD 729.5 Pain In Limb 02/13/2009 JOHNY GARNER MD 729.5 Pain In Limb 02/13/2009 [facility], ADILIA R 729.5 Pain In Limb 02/13/2009 JOHNY GARNER MD 729.5 Pain In Limb 02/13/2009 [facility], ADILIA R 729.5 Pain In Limb 02/13/2009 [facility], ADILIA R 729.5 Pain In Limb 02/13/2009 [facility], ADILIA R 729.5 Pain In Limb 02/13/2009 JOHNY GARNER MD 729.5 Pain In Limb 02/13/2009 ESTHER CHAVEZ MD N 729.5 Pain In Limb 02/13/2009 [facility], ADILIA R 729.5 Pain In Limb 02/13/2009 ESTHER CHAVEZ MD N 729.5 Pain In Limb 02/13/2009 CHIDI KIDDS, BYRON 729.5 Pain In Limb 02/13/2009 ESTHER CHAVEZ MD N 729.5 Pain In Limb 02/13/2009 [facility], ADILIA R 729.5 Pain In Limb 02/13/2009 ESTHER CHAVEZ MD N 729.5 Pain In Limb 02/13/2009 ESTHER CHAVEZ MD N 729.5 Pain In Limb 02/13/2009 ESTHER CHAVEZ MD N 729.5 Pain In Limb 02/13/2009 ESTHER CHAVEZ MD N 729.5 Pain In Limb 02/13/2009 PARI VILLAGRAN 729.5 Pain In Limb 02/13/2009 ESTHER CHAVEZ MD N 729.5 Pain In Limb 02/13/2009 ESTHER CHAVEZ MD N 729.5 Pain In Limb 02/17/2009 719.43 Pain In Joint, Forearm 02/17/2009 728.85 Spasm Of Muscle 02/17/2009 JOHNY GARNER MD 719.43 Pain In Joint, Forearm 02/17/2009 JOHNY GARNER MD 728.85 Spasm Of Muscle 02/17/2009 719.43 Pain In Joint, Forearm 02/17/2009 728.85 Spasm Of Muscle 02/17/2009 719.43 Pain In Joint, Forearm 02/17/2009 728.85 Spasm Of Muscle 02/17/2009 JOHNY GARNER MD 719.43 Pain In Joint, Forearm 02/17/2009 JOHNY GARNER MD 728.85 Spasm Of Muscle 02/17/2009 JENN DONALD LCPC 719.43 Pain In Joint, Forearm 02/17/2009 JENN DONALD LCPC 728.85 Spasm Of Muscle 02/17/2009 719.43 Pain In Joint, Forearm 02/17/2009 728.85 Spasm Of Muscle 02/17/2009 719.43 Pain In Joint, Forearm 02/17/2009 728.85 Spasm Of Muscle 02/17/2009 719.43 Pain In Joint, Forearm 02/17/2009 728.85 Spasm Of Muscle 02/17/2009 719.43 Pain In Joint, Forearm 02/17/2009 728.85 Spasm Of Muscle 02/17/2009 719.43 Pain In Joint, Forearm 02/17/2009 728.85 Spasm Of Muscle 02/17/2009 719.43 Pain In Joint, Forearm 02/17/2009 728.85 Spasm Of Muscle 02/17/2009 719.43 Pain In Joint, Forearm 02/17/2009 728.85 Spasm Of Muscle 02/17/2009 KAT AGUILAR MD 719.43 Pain In Joint, Forearm 02/17/2009 KAT AGUILAR MD 728.85 Spasm Of Muscle 02/17/2009 719.43 Pain In Joint, Forearm 02/17/2009 728.85 Spasm Of Muscle 02/17/2009 SCOTT [place], ADILIA R 719.43 Pain In Joint, Forearm 02/17/2009 SCOTT [facility], ADILIA R 728.85 Spasm Of Muscle 02/17/2009 JOHNY GARNER MD 719.43 Pain In Joint, Forearm 02/17/2009 JOHNY GARNER MD 728.85 Spasm Of Muscle 02/17/2009 RAFAELA SHELTON DDS 719.43 Pain In Joint, Forearm 02/17/2009 RAFAELA SHELTON DDS D 728.85 Spasm Of Muscle 02/17/2009 [facility] 719.43 Pain In Joint, Forearm 02/17/2009 SCOTT [place], ADILIA R 728.85 Spasm Of Muscle 02/17/2009 JOHNY GARNER MD 719.43 Pain In Joint, Forearm 02/17/2009 JOHNY GARNER MD 728.85 Spasm Of Muscle 02/17/2009 KISHA CHAVIS DO 719.43 Pain In Joint, Forearm 02/17/2009 KISHA CHAVIS DO 728.85 Spasm Of Muscle 02/17/2009 SCOTT [place] ADILIA R 719.43 Pain In Joint, Forearm 02/17/2009 SCOTT LSCS, ADILIA R 728.85 Spasm Of Muscle 02/17/2009 WHITE DDS, RAFAELA D 719.43 Pain In Joint, Forearm 02/17/2009 WHITE DDS, RAFAELA D 728.85 Spasm Of Muscle 02/17/2009 JOHNY GARNER MD 719.43 Pain In Joint, Forearm 02/17/2009 JOHNY GARNER MD 728.85 Spasm Of Muscle 02/17/2009 JOHNY GARNER MD 719.43 Pain In Joint, Forearm 02/17/2009 JOHNY GARNER MD 728.85 Spasm Of Muscle 02/17/2009 WHITE DDS, RAFAELA D 719.43 Pain In Joint, Forearm 02/17/2009 WHITE DDS, RAFAELA D 728.85 Spasm Of Muscle 02/17/2009 JOHNY GARNER MD 719.43 Pain In Joint, Forearm 02/17/2009 JOHNY GARNER MD 728.85 Spasm Of Muscle 02/17/2009 JOHNY GARNER MD 719.43 Pain In Joint, Forearm 02/17/2009 JOHNY GARNER MD 728.85 Spasm Of Muscle 02/17/2009 SCOTT [facility], ADILIA R 719.43 Pain In Joint, Forearm 02/17/2009 [facility], ADILIA R 728.85 Spasm Of Muscle 02/17/2009 JOHNY GARNER MD 719.43 Pain In Joint, Forearm 02/17/2009 JOHNY GARNER MD 728.85 Spasm Of Muscle 02/17/2009 SCOTT [facility], ADILIA R 719.43 Pain In Joint, Forearm 02/17/2009 [facility], ADILIA R 728.85 Spasm Of Muscle 02/17/2009 [facility], ADILIA R 719.43 Pain In Joint, Forearm 02/17/2009 SC[facility], ADILIA R 728.85 Spasm Of Muscle 02/17/2009 SCOTT [facility], ADILIA R 719.43 Pain In Joint, Forearm 02/17/2009 [facility], ADILIA R 728.85 Spasm Of Muscle 02/17/2009 JOHNY GARNER MD 719.43 Pain In Joint, Forearm 02/17/2009 JOHNY GARNER MD 728.85 Spasm Of Muscle 02/17/2009 KATHY MD, ESTHER N 719.43 Pain In Joint, Forearm 02/17/2009 ESTHER CHAVEZ MD N 728.85 Spasm Of Muscle 02/17/2009 [facility], ADILIA R 719.43 Pain In Joint, Forearm 02/17/2009 [facility], ADILIA R 728.85 Spasm Of Muscle 02/17/2009 ESTHER CHAVEZ MD N 719.43 Pain In Joint, Forearm 02/17/2009 ESTHER CHAVEZ MD N 728.85 Spasm Of Muscle 02/17/2009 CHIDI KIDDSBYRON 719.43 Pain In Joint, Forearm 02/17/2009 MURILLO DDS, BYRON 728.85 Spasm Of Muscle 02/17/2009 ESTHER CHAVEZ MD N 719.43 Pain In Joint, Forearm 02/17/2009 ESTHER CHAVEZ MD N 728.85 Spasm Of Muscle 02/17/2009 [facility], ADILIA R 719.43 Pain In Joint, Forearm 02/17/2009 [facility], ADILIA R 728.85 Spasm Of Muscle 02/17/2009 ESTHER CHAVEZ MD N 719.43 Pain In Joint, Forearm 02/17/2009 ESTHER CHAVEZ MD N 728.85 Spasm Of Muscle 02/17/2009 ESTHER CHAVEZ MD N 719.43 Pain In Joint, Forearm 02/17/2009 ESTHER CHAVEZ MD N 728.85 Spasm Of Muscle 02/17/2009 ESTHER CHAVEZ MD N 719.43 Pain In Joint, Forearm 02/17/2009 ESTHER CHAVEZ MD N 728.85 Spasm Of Muscle 02/17/2009 ESTHER CHAVEZ MD N 719.43 Pain In Joint, Forearm 02/17/2009 BRIAN CHAVEZ MDY N 728.85 Spasm Of Muscle 02/17/2009 PARI VILLAGRAN 719.43 Pain In Joint, Forearm 02/17/2009 PARI VILLAGRAN 728.85 Spasm Of Muscle 02/17/2009 ESTHER CHAVEZ MD N 719.43 Pain In Joint, Forearm 02/17/2009 ESTHER CHAVEZ MD N 728.85 Spasm Of Muscle 02/17/2009 ESTHER CHAVEZ MD N 719.43 Pain In Joint, Forearm 02/17/2009 ESTHER CHAVEZ MD N 728.85 Spasm Of Muscle 03/19/2009 701.9 UNSPECIFIED HYPERTROPHIC AND ATROPHIC CONDITIONS OF SKIN 03/19/2009 V58.69 Long-term (current) Use Of Other Medications 03/19/2009 JOHNY GARNER MD 701.9 UNSPECIFIED HYPERTROPHIC AND ATROPHIC CONDITIONS OF SKIN 03/19/2009 JOHNY GARNER MD V58.69 Long-term (current) Use Of Other Medications 03/19/2009 701.9 UNSPECIFIED HYPERTROPHIC AND ATROPHIC CONDITIONS OF SKIN 03/19/2009 V58.69 Long-term (current) Use Of Other Medications 03/19/2009 701.9 UNSPECIFIED HYPERTROPHIC AND ATROPHIC CONDITIONS OF SKIN 03/19/2009 V58.69 Long-term (current) Use Of Other Medications 03/19/2009 JOHNY GARNER MD 701.9 UNSPECIFIED HYPERTROPHIC AND ATROPHIC CONDITIONS OF SKIN 03/19/2009 JOHNY GARNER MD V58.69 Long-term (current) Use Of Other Medications 03/19/2009 JENN DONALD LCPC 701.9 UNSPECIFIED HYPERTROPHIC AND ATROPHIC CONDITIONS OF SKIN 03/19/2009 JENN DONALD LCPC V58.69 Long-term (current) Use Of Other Medications 03/19/2009 701.9 UNSPECIFIED HYPERTROPHIC AND ATROPHIC CONDITIONS OF SKIN 03/19/2009 V58.69 Long-term (current) Use Of Other Medications 03/19/2009 701.9 UNSPECIFIED HYPERTROPHIC AND ATROPHIC CONDITIONS OF SKIN 03/19/2009 V58.69 Long-term (current) Use Of Other Medications 03/19/2009 701.9 UNSPECIFIED HYPERTROPHIC AND ATROPHIC CONDITIONS OF SKIN 03/19/2009 V58.69 Long-term (current) Use Of Other Medications 03/19/2009 701.9 UNSPECIFIED HYPERTROPHIC AND ATROPHIC CONDITIONS OF SKIN 03/19/2009 V58.69 Long-term (current) Use Of Other Medications 03/19/2009 701.9 UNSPECIFIED HYPERTROPHIC AND ATROPHIC CONDITIONS OF SKIN 03/19/2009 V58.69 Long-term (current) Use Of Other Medications 03/19/2009 701.9 UNSPECIFIED HYPERTROPHIC AND ATROPHIC CONDITIONS OF SKIN 03/19/2009 V58.69 Long-term (current) Use Of Other Medications 03/19/2009 701.9 UNSPECIFIED HYPERTROPHIC AND ATROPHIC CONDITIONS OF SKIN 03/19/2009 V58.69 Long-term (current) Use Of Other Medications 03/19/2009 KAT AGUILAR MD 701.9 UNSPECIFIED HYPERTROPHIC AND ATROPHIC CONDITIONS OF SKIN 03/19/2009 KAT AGUILAR MD V58.69 Long-term (current) Use Of Other Medications 03/19/2009 701.9 UNSPECIFIED HYPERTROPHIC AND ATROPHIC CONDITIONS OF SKIN 03/19/2009 V58.69 Long-term (current) Use Of Other Medications 03/19/2009 [facility], ADILIA R 701.9 UNSPECIFIED HYPERTROPHIC AND ATROPHIC CONDITIONS OF SKIN 03/19/2009 [facility], ADILIA R V58.69 Long-term (current) Use Of Other Medications 03/19/2009 JOHNY GARNER MD 701.9 UNSPECIFIED HYPERTROPHIC AND ATROPHIC CONDITIONS OF SKIN 03/19/2009 JOHNY GARNER MD V58.69 Long-term (current) Use Of Other Medications 03/19/2009 RAFAELA SHELTON DDS 701.9 UNSPECIFIED HYPERTROPHIC AND ATROPHIC CONDITIONS OF SKIN 03/19/2009 RAFAELA SHELTON DDS V58.69 Long-term (current) Use Of Other Medications 03/19/2009 [facility], ADILIA R 701.9 UNSPECIFIED HYPERTROPHIC AND ATROPHIC CONDITIONS OF SKIN 03/19/[facility] (current) Use Of Other Medications 03/19/2009 JOHNY GARNER MD 701.9 UNSPECIFIED HYPERTROPHIC AND ATROPHIC CONDITIONS OF SKIN 03/19/2009 JOHNY GARNER MD V58.69 Long-term (current) Use Of Other Medications 03/19/2009 CHAVIS DO, KISHA K 701.9 UNSPECIFIED HYPERTROPHIC AND ATROPHIC CONDITIONS OF SKIN 03/19/2009 CHAVIS DO, KISHA K V58.69 Long-term (current) Use Of Other Medications 03/19/2009 [facility] ADILIA R 701.9 UNSPECIFIED HYPERTROPHIC AND ATROPHIC CONDITIONS OF SKIN 03/19/[facility] Long-term (current) Use Of Other Medications 03/19/2009 RAFAELA SHELTON DDS 701.9 UNSPECIFIED HYPERTROPHIC AND ATROPHIC CONDITIONS OF SKIN 03/19/2009 RAFAELA SHELTON DDS V58.69 Long-term (current) Use Of Other Medications 03/19/2009 JOHNY GARNER MD 701.9 UNSPECIFIED HYPERTROPHIC AND ATROPHIC CONDITIONS OF SKIN 03/19/2009 JOHNY GARNER MD V58.69 Long-term (current) Use Of Other Medications 03/19/2009 JOHNY GARNER MD1.9 UNSPECIFIED HYPERTROPHIC AND ATROPHIC CONDITIONS OF SKIN 03/19/2009 JOHNY GARNER MD V58.69 Long-term (current) Use Of Other Medications 03/19/2009 RAFAELA SHELTON DDS 701.9 UNSPECIFIED HYPERTROPHIC AND ATROPHIC CONDITIONS OF SKIN 03/19/2009 RAFAELA SHELTON DDS V58.69 Long-term (current) Use Of Other Medications 03/19/2009 JOHNY GARNER MD.9 UNSPECIFIED HYPERTROPHIC AND ATROPHIC CONDITIONS OF SKIN 03/19/2009 JOHNY GARNER MD V58.69 Long-term (current) Use Of Other Medications 03/19/2009 JOHNY GARNER MD1.9 UNSPECIFIED HYPERTROPHIC AND ATROPHIC CONDITIONS OF SKIN 03/19/2009 JOHNY GARNER MD V58.69 Long-term (current) Use Of Other Medications 03/19/2009 [facility], ADILIA R 701.9 UNSPECIFIED HYPERTROPHIC AND ATROPHIC CONDITIONS OF SKIN 03/19/2009 [facility], ADILIA R V58.69 Long-term (current) Use Of Other Medications 03/19/2009 JOHNY GARNER MD1.9 UNSPECIFIED HYPERTROPHIC AND ATROPHIC CONDITIONS OF SKIN 03/19/2009 JOHNY GARNER MD V58.69 Long-term (current) Use Of Other Medications 03/19/2009 [facility], ADILIA R 701.9 UNSPECIFIED HYPERTROPHIC AND ATROPHIC CONDITIONS OF SKIN 03/19/2009 [facility], ADILIA R V58.69 Long-term (current) Use Of Other Medications 03/19/2009 [facility], ADILIA R 701.9 UNSPECIFIED HYPERTROPHIC AND ATROPHIC CONDITIONS OF SKIN 03/19/2009 [facility], ADILIA R V58.69 Long-term (current) Use Of Other Medications 03/19/2009 [facility], ADILIA R 701.9 UNSPECIFIED HYPERTROPHIC AND ATROPHIC CONDITIONS OF SKIN 03/19/2009 [facility], ADILIA R V58.69 Long-term (current) Use Of Other Medications 03/19/2009 JOHNY GARNER MD 701.9 UNSPECIFIED HYPERTROPHIC AND ATROPHIC CONDITIONS OF SKIN 03/19/2009 JOHNY GARNER MD V58.69 Long-term (current) Use Of Other Medications 03/19/2009 ESTHER CHAVEZ MD 701.9 UNSPECIFIED HYPERTROPHIC AND ATROPHIC CONDITIONS OF SKIN 03/19/2009 ESTHER CHAVEZ MD V58.69 Long-term (current) Use Of Other Medications 03/19/2009 [facility], ADILIA R 701.9 UNSPECIFIED HYPERTROPHIC AND ATROPHIC CONDITIONS OF SKIN 03/19/2009 [facility], ADILIA R V58.69 Long-term (current) Use Of Other Medications 03/19/2009 ESTHER CHAVEZ MD 701.9 UNSPECIFIED HYPERTROPHIC AND ATROPHIC CONDITIONS OF SKIN 03/19/2009 ESTHER CHAVEZ MD V58.69 Long-term (current) Use Of Other Medications 03/19/2009 BYRON MURILLO DDS 701.9 UNSPECIFIED HYPERTROPHIC AND ATROPHIC CONDITIONS OF SKIN 03/19/2009 BYRON MURILLO DDS V58.69 Long-term (current) Use Of Other Medications 03/19/2009 ESTHER CHAVEZ MD 701.9 UNSPECIFIED HYPERTROPHIC AND ATROPHIC CONDITIONS OF SKIN 03/19/2009 ESTHER CHAVEZ MD V58.69 Long-term (current) Use Of Other Medications 03/19/2009 [facility], ADILIA R 701.9 UNSPECIFIED HYPERTROPHIC AND ATROPHIC CONDITIONS OF SKIN 03/19/2009 [facility], ADILIA R V58.69 Long-term (current) Use Of Other Medications 03/19/2009 ESTHER CHAVEZ MD 701.9 UNSPECIFIED HYPERTROPHIC AND ATROPHIC CONDITIONS OF SKIN 03/19/2009 ESTHER CHAVEZ MD V58.69 Long-term (current) Use Of Other Medications 03/19/2009 ESTHER CHAVEZ MD 701.9 UNSPECIFIED HYPERTROPHIC AND ATROPHIC CONDITIONS OF SKIN 03/19/2009 ESTHER CHAVEZ MD V58.69 Long-term (current) Use Of Other Medications 03/19/2009 ESTHER CHAVEZ MD 701.9 UNSPECIFIED HYPERTROPHIC AND ATROPHIC CONDITIONS OF SKIN 03/19/2009 ESTHER CHAVEZ MD V58.69 Long-term (current) Use Of Other Medications 03/19/2009 ESTHER CHAVEZ MD N 701.9 UNSPECIFIED HYPERTROPHIC AND ATROPHIC CONDITIONS OF SKIN 03/19/2009 ESTHER CHAVEZ MD V58.69 Long-term (current) Use Of Other Medications 03/19/2009 PARI VILLAGRAN 701.9 UNSPECIFIED HYPERTROPHIC AND ATROPHIC CONDITIONS OF SKIN 03/19/2009 PARI VILLAGRAN V58.69 Long-term (current) Use Of Other Medications 03/19/2009 ESTHER CHAVEZ MD 701.9 UNSPECIFIED HYPERTROPHIC AND ATROPHIC CONDITIONS OF SKIN 03/19/2009 ESTHER CHAVEZ MD V58.69 Long-term (current) Use Of Other Medications 03/19/2009 ESTHER CHAVEZ MD 701.9 UNSPECIFIED HYPERTROPHIC AND ATROPHIC CONDITIONS OF SKIN 03/19/2009 ESTHER CHAVEZ MD V58.69 Long-term (current) Use Of Other Medications 04/23/2009 416.8 OTHER CHRONIC PULMONARY HEART DISEASES 04/23/2009 428.0 CONGESTIVE HEART FAILURE, UNSPECIFIED 04/23/2009 JOHNY GARNER MD 416.8 OTHER CHRONIC PULMONARY HEART DISEASES 04/23/2009 JOHNY GARNER MD 428.0 CONGESTIVE HEART FAILURE, UNSPECIFIED 04/23/2009 416.8 OTHER CHRONIC PULMONARY HEART DISEASES 04/23/2009 428.0 CONGESTIVE HEART FAILURE, UNSPECIFIED 04/23/2009 416.8 OTHER CHRONIC PULMONARY HEART DISEASES 04/23/2009 428.0 CONGESTIVE HEART FAILURE, UNSPECIFIED 04/23/2009 JOHNY GARNER MD 416.8 OTHER CHRONIC PULMONARY HEART DISEASES 04/23/2009 JOHNY GARNER MD 428.0 CONGESTIVE HEART FAILURE, UNSPECIFIED 04/23/2009 JENN DONALD LCPC 416.8 OTHER CHRONIC PULMONARY HEART DISEASES 04/23/2009 JENN DONALD LCPC 428.0 CONGESTIVE HEART FAILURE, UNSPECIFIED 04/23/2009 416.8 OTHER CHRONIC PULMONARY HEART DISEASES 04/23/2009 428.0 CONGESTIVE HEART FAILURE, UNSPECIFIED 04/23/2009 416.8 OTHER CHRONIC PULMONARY HEART DISEASES 04/23/2009 428.0 CONGESTIVE HEART FAILURE, UNSPECIFIED 04/23/2009 416.8 OTHER CHRONIC PULMONARY HEART DISEASES 04/23/2009 428.0 CONGESTIVE HEART FAILURE, UNSPECIFIED 04/23/2009 416.8 OTHER CHRONIC PULMONARY HEART DISEASES 04/23/2009 428.0 CONGESTIVE HEART FAILURE, UNSPECIFIED 04/23/2009 416.8 OTHER CHRONIC PULMONARY HEART DISEASES 04/23/2009 428.0 CONGESTIVE HEART FAILURE, UNSPECIFIED 04/23/2009 416.8 OTHER CHRONIC PULMONARY HEART DISEASES 04/23/2009 428.0 CONGESTIVE HEART FAILURE, UNSPECIFIED 04/23/2009 416.8 OTHER CHRONIC PULMONARY HEART DISEASES 04/23/2009 428.0 CONGESTIVE HEART FAILURE, UNSPECIFIED 04/23/2009 KAT AGUILAR MD 416.8 OTHER CHRONIC PULMONARY HEART DISEASES 04/23/2009 KAT AGUILAR MD 428.0 CONGESTIVE HEART FAILURE, UNSPECIFIED 04/23/2009 416.8 OTHER CHRONIC PULMONARY HEART DISEASES 04/23/2009 428.0 CONGESTIVE HEART FAILURE, UNSPECIFIED 04/23/2009 [facility], ADILIA R 416.8 OTHER CHRONIC PULMONARY HEART DISEASES 04/23/2009 [facility], [facility]ILIA R 428.0 CONGESTIVE HEART FAILURE, UNSPECIFIED 04/23/2009 JOHNY GARNER MD 416.8 OTHER CHRONIC PULMONARY HEART DISEASES 04/23/2009 JOHNY GARNER MD 428.0 CONGESTIVE HEART FAILURE, UNSPECIFIED 04/23/2009 WHITE DDS, RAFAELA D 416.8 OTHER CHRONIC PULMONARY HEART DISEASES 04/23/2009 WHITE DDS, RAFAELA D 428.0 CONGESTIVE HEART FAILURE, UNSPECIFIED 04/23/2009 [facility], ADILIA R 416.8 OTHER CHRONIC PULMONARY HEART DISEASES 04/23/2009 [facility], [facility]IL[facility] R 428.0 CONGESTIVE HEART FAILURE, UNSPECIFIED 04/23/2009 JOHNY GARNER MD 416.8 OTHER CHRONIC PULMONARY HEART DISEASES 04/23/2009 JOHNY GARNER MD 428.0 CONGESTIVE HEART FAILURE, UNSPECIFIED 04/23/2009 CHAVIS DO, KISHA K 416.8 OTHER CHRONIC PULMONARY HEART DISEASES 04/23/2009 CHAVIS DO, KISHA K 428.0 CONGESTIVE HEART FAILURE, UNSPECIFIED 04/23/2009 [facility], ADILIA R 416.8 OTHER CHRONIC PULMONARY HEART DISEASES 04/23/2009 [facility], [facility] R 428.0 CONGESTIVE HEART FAILURE, UNSPECIFIED 04/23/2009 WHITE DDS, RAFAELA D 416.8 OTHER CHRONIC PULMONARY HEART DISEASES 04/23/2009 WHITE DDS, RAFAELA D 428.0 CONGESTIVE HEART FAILURE, UNSPECIFIED 04/23/2009 PASCUAL CHING, JOHNY 416.8 OTHER CHRONIC PULMONARY HEART DISEASES 04/23/2009 PASCUAL CHING, JOHNY 428.0 CONGESTIVE HEART FAILURE, UNSPECIFIED 04/23/2009 PASCUAL CHING, JOHNY 416.8 OTHER CHRONIC PULMONARY HEART DISEASES 04/23/2009 PASCUAL CHING, JOHNY 428.0 CONGESTIVE HEART FAILURE, UNSPECIFIED 04/23/2009 WHITE DDS, RAFAELA D 416.8 OTHER CHRONIC PULMONARY HEART DISEASES 04/23/2009 WHITE DDS, RAFAELA D 428.0 CONGESTIVE HEART FAILURE, UNSPECIFIED 04/23/2009 PASCUAL CHING, JOHNY 416.8 OTHER CHRONIC PULMONARY HEART DISEASES 04/23/2009 PASCUAL CHING, JOHNY 428.0 CONGESTIVE HEART FAILURE, UNSPECIFIED 04/23/2009 PASCUAL CHING, JOHNY 416.8 OTHER CHRONIC PULMONARY HEART DISEASES 04/23/2009 PASCUAL CHING, JOHNY 428.0 CONGESTIVE HEART FAILURE, UNSPECIFIED 04/23/2009 [facility], ADILIA R 416.8 OTHER CHRONIC PULMONARY HEART DISEASES 04/23/2009 [facility], [facility]ILIA R 428.0 CONGESTIVE HEART FAILURE, UNSPECIFIED 04/23/2009 JOHNY GARNER MD 416.8 OTHER CHRONIC PULMONARY HEART DISEASES 04/23/2009 JOHNY GARNER MD 428.0 CONGESTIVE HEART FAILURE, UNSPECIFIED 04/23/2009 [facility], [facility]ILIA R 416.8 OTHER CHRONIC PULMONARY HEART DISEASES 04/23/2009 [facility], [facility]IL[facility] R 428.0 CONGESTIVE HEART FAILURE, UNSPECIFIED 04/23/2009 [facility], [facility]IL[facility] R 416.8 OTHER CHRONIC PULMONARY HEART DISEASES 04/23/2009 [facility], [facility]IL[facility] R 428.0 CONGESTIVE HEART FAILURE, UNSPECIFIED 04/23/2009 [facility], [facility] R 416.8 OTHER CHRONIC PULMONARY HEART DISEASES 04/23/2009 [facility], [facility] R 428.0 CONGESTIVE HEART FAILURE, UNSPECIFIED 04/23/2009 JOHNY GARNER MD 416.8 OTHER CHRONIC PULMONARY HEART DISEASES 04/23/2009 JOHNY GARNER MD 428.0 CONGESTIVE HEART FAILURE, UNSPECIFIED 04/23/2009 ESTHER CHAVEZ MD 416.8 OTHER CHRONIC PULMONARY HEART DISEASES 04/23/2009 ESTHER CHAVEZ MD 428.0 CONGESTIVE HEART FAILURE, UNSPECIFIED 04/23/2009 [facility], [facility]IL[facility] R 416.8 OTHER CHRONIC PULMONARY HEART DISEASES 04/23/2009 [facility], [facility] R 428.0 CONGESTIVE HEART FAILURE, UNSPECIFIED 04/23/2009 ESTHER CHAVEZ MD N 416.8 OTHER CHRONIC PULMONARY HEART DISEASES 04/23/2009 ESTHER CHAVEZ MD N 428.0 CONGESTIVE HEART FAILURE, UNSPECIFIED 04/23/2009 MURILLO DDS, BYRON 416.8 OTHER CHRONIC PULMONARY HEART DISEASES 04/23/2009 MURILLO DDS, BYRON 428.0 CONGESTIVE HEART FAILURE, UNSPECIFIED 04/23/2009 ESTHER CHAVEZ MD N 416.8 OTHER CHRONIC PULMONARY HEART DISEASES 04/23/2009 ESTHER CHAVEZ MD N 428.0 CONGESTIVE HEART FAILURE, UNSPECIFIED 04/23/2009 [facility], ADILIA R 416.8 OTHER CHRONIC PULMONARY HEART DISEASES 04/23/2009 [facility], [facility] R 428.0 CONGESTIVE HEART FAILURE, UNSPECIFIED 04/23/2009 ESTHER CHAVEZ MD N 416.8 OTHER CHRONIC PULMONARY HEART DISEASES 04/23/2009 ESTHER CHAVEZ MD N 428.0 CONGESTIVE HEART FAILURE, UNSPECIFIED 04/23/2009 ESTHER CHAVEZ MD N 416.8 OTHER CHRONIC PULMONARY HEART DISEASES 04/23/2009 ESTHER CHAVEZ MD N 428.0 CONGESTIVE HEART FAILURE, UNSPECIFIED 04/23/2009 ESTHER CHAVEZ MD N 416.8 OTHER CHRONIC PULMONARY HEART DISEASES 04/23/2009 ESTHER CHAVEZ MD N 428.0 CONGESTIVE HEART FAILURE, UNSPECIFIED 04/23/2009 ESTHER CHAVEZ MD N 416.8 OTHER CHRONIC PULMONARY HEART DISEASES 04/23/2009 ESTHER CHAVEZ MD N 428.0 CONGESTIVE HEART FAILURE, UNSPECIFIED 04/23/2009 PARI VILLAGRAN 416.8 OTHER CHRONIC PULMONARY HEART DISEASES 04/23/2009 PARI VILLAGRAN M 428.0 CONGESTIVE HEART FAILURE, UNSPECIFIED 04/23/2009 ESTHER CHAVEZ MD N 416.8 OTHER CHRONIC PULMONARY HEART DISEASES 04/23/2009 ESTHER CHAVEZ MD N 428.0 CONGESTIVE HEART FAILURE, UNSPECIFIED 04/23/2009 ESTHER CHAVEZ MD N 416.8 OTHER CHRONIC PULMONARY HEART DISEASES 04/23/2009 ESTHER CHAVEZ MD N 428.0 CONGESTIVE HEART FAILURE, UNSPECIFIED 04/25/2009 272.4 OTHER AND UNSPECIFIED HYPERLIPIDEMIA 04/25/2009 JOHNY GARNER MD 272.4 OTHER AND UNSPECIFIED HYPERLIPIDEMIA 04/25/2009 272.4 OTHER AND UNSPECIFIED HYPERLIPIDEMIA 04/25/2009 272.4 OTHER AND UNSPECIFIED HYPERLIPIDEMIA 04/25/2009 JOHNY GARNER MD 272.4 OTHER AND UNSPECIFIED HYPERLIPIDEMIA 04/25/2009 [employer], JENN B 272.4 OTHER AND UNSPECIFIED HYPERLIPIDEMIA 04/25/2009 272.4 OTHER AND UNSPECIFIED HYPERLIPIDEMIA 04/25/2009 272.4 OTHER AND UNSPECIFIED HYPERLIPIDEMIA 04/25/2009 272.4 OTHER AND UNSPECIFIED HYPERLIPIDEMIA 04/25/2009 272.4 OTHER AND UNSPECIFIED HYPERLIPIDEMIA 04/25/2009 272.4 OTHER AND UNSPECIFIED HYPERLIPIDEMIA 04/25/2009 272.4 OTHER AND UNSPECIFIED HYPERLIPIDEMIA 04/25/2009 272.4 OTHER AND UNSPECIFIED HYPERLIPIDEMIA 04/25/2009 KAT AGUILAR MD 272.4 OTHER AND UNSPECIFIED HYPERLIPIDEMIA 04/25/2009 272.4 OTHER AND UNSPECIFIED HYPERLIPIDEMIA 04/25/2009 [facility], ADILIA R 272.4 OTHER AND UNSPECIFIED HYPERLIPIDEMIA 04/25/2009 JOHNY GARNER MD 272.4 OTHER AND UNSPECIFIED HYPERLIPIDEMIA 04/25/2009 [facility] D[facility], RAFAELA Yanez 272.4 OTHER AND UNSPECIFIED HYPERLIPIDEMIA 04/25/2009 [facility], ADILIA R 272.4 OTHER AND UNSPECIFIED HYPERLIPIDEMIA 04/25/2009 JOHNY GARNER MD 272.4 OTHER AND UNSPECIFIED HYPERLIPIDEMIA 04/25/2009 CHAVIS DO, KISHA K 272.4 OTHER AND UNSPECIFIED HYPERLIPIDEMIA 04/25/2009 [facility], ADILIA R 272.4 OTHER AND UNSPECIFIED HYPERLIPIDEMIA 04/25/2009 WHITE DDS, RAFAELA Yanez 272.4 OTHER AND UNSPECIFIED HYPERLIPIDEMIA 04/25/2009 JOHNY GARNER MD 272.4 OTHER AND UNSPECIFIED HYPERLIPIDEMIA 04/25/2009 JOHNY GARNER MD 272.4 OTHER AND UNSPECIFIED HYPERLIPIDEMIA 04/25/2009 [facility], RAFAELA Yanez 272.4 OTHER AND UNSPECIFIED HYPERLIPIDEMIA 04/25/2009 JOHNY GARNER MD 272.4 OTHER AND UNSPECIFIED HYPERLIPIDEMIA 04/25/2009 JOHNY GARNER MD 272.4 OTHER AND UNSPECIFIED HYPERLIPIDEMIA 04/25/2009 [facility], ADILIA R 272.4 OTHER AND UNSPECIFIED HYPERLIPIDEMIA 04/25/2009 JOHNY GARNER MD 272.4 OTHER AND UNSPECIFIED HYPERLIPIDEMIA 04/25/2009 [facility], ADILIA R 272.4 OTHER AND UNSPECIFIED HYPERLIPIDEMIA 04/25/2009 [facility], ADILIA R 272.4 OTHER AND UNSPECIFIED HYPERLIPIDEMIA 04/25/2009 [facility], ADILIA R 272.4 OTHER AND UNSPECIFIED HYPERLIPIDEMIA 04/25/2009 JOHNY GARNER MD 272.4 OTHER AND UNSPECIFIED HYPERLIPIDEMIA 04/25/2009 KATHY CHING, ESTHER N 272.4 OTHER AND UNSPECIFIED HYPERLIPIDEMIA 04/25/2009 [facility], ADILIA R 272.4 OTHER AND UNSPECIFIED HYPERLIPIDEMIA 04/25/2009 KATHY CHING, ESTHER N 272.4 OTHER AND UNSPECIFIED HYPERLIPIDEMIA 04/25/2009 BYRON MURILLO DDS 272.4 OTHER AND UNSPECIFIED HYPERLIPIDEMIA 04/25/2009 KATHY CHING, ESTHER N 272.4 OTHER AND UNSPECIFIED HYPERLIPIDEMIA 04/25/2009 [facility], ADILIA R 272.4 OTHER AND UNSPECIFIED HYPERLIPIDEMIA 04/25/2009 KATHY CHING, ESTHER N 272.4 OTHER AND UNSPECIFIED HYPERLIPIDEMIA 04/25/2009 KATHY CHING, ESTHER N 272.4 OTHER AND UNSPECIFIED HYPERLIPIDEMIA 04/25/2009 KATHY CHING, ESTHER N 272.4 OTHER AND UNSPECIFIED HYPERLIPIDEMIA 04/25/2009 KATHY CHING, ESTHER N 272.4 OTHER AND UNSPECIFIED HYPERLIPIDEMIA 04/25/2009 PARI VILLAGRAN M 272.4 OTHER AND UNSPECIFIED HYPERLIPIDEMIA 04/25/2009 KATHY CHING, ESTHER N 272.4 OTHER AND UNSPECIFIED HYPERLIPIDEMIA 04/25/2009 KATHY CHING, ESTHER N 272.4 OTHER AND UNSPECIFIED HYPERLIPIDEMIA 08/06/2009 786.50 CHEST PAIN, UNSPECIFIED 08/06/2009 JOHNY GARNER MD 786.50 Chest Pain, Unspecified 08/06/2009 786.50 Chest Pain, Unspecified 08/06/2009 786.50 Chest Pain, Unspecified 08/06/2009 JOHNY GARNER MD 786.50 Chest Pain, Unspecified 08/06/2009 SHABANA TICKET WRITERJENN CONRAD 786.50 Chest Pain, Unspecified 08/06/2009 786.50 Chest Pain, Unspecified 08/06/2009 786.50 Chest Pain, Unspecified 08/06/2009 786.50 Chest Pain, Unspecified 08/06/2009 786.50 Chest Pain, Unspecified 08/06/2009 786.50 Chest Pain, Unspecified 08/06/2009 786.50 Chest Pain, Unspecified 08/06/2009 786.50 Chest Pain, Unspecified 08/06/2009 JEFF CHING, KAT 786.50 CHEST PAIN, UNSPECIFIED 08/06/2009 786.50 Chest Pain, Unspecified 08/06/2009 [facility], ADILIA Montiel 786.50 Chest Pain, Unspecified 08/06/2009 PASCUAL CHING, JOHNY 786.50 Chest Pain, Unspecified 08/06/2009 WHITE DDS, RAFAELA D 786.50 Chest Pain, Unspecified 08/06/2009 [facility], ADILIA Montiel 786.50 Chest Pain, Unspecified 08/06/2009 PASCUAL CHING, JOHNY 786.50 Chest Pain, Unspecified 08/06/2009 KISHA CHAVIS DO 786.50 Chest Pain, Unspecified 08/06/2009 [facility], ADILIA R 786.50 Chest Pain, Unspecified 08/06/2009 CAT KIDDS, RAFAELA Yanez 786.50 Chest Pain, Unspecified 08/06/2009 PASCUAL CHING, JOHNY 786.50 Chest Pain, Unspecified 08/06/2009 PASCUAL CHING, JOHNY 786.50 Chest Pain, Unspecified 08/06/2009 CAT KIDDS, RAFAELA Yanez 786.50 Chest Pain, Unspecified 08/06/2009 PASCUAL CHING, JOHNY 786.50 Chest Pain, Unspecified 08/06/2009 PASCUAL CHING, JOHNY 786.50 Chest Pain, Unspecified 08/06/2009 [facility], ADILIA Montiel 786.50 Chest Pain, Unspecified 08/06/2009 PASCUAL CHING, OJHNY 786.50 Chest Pain, Unspecified 08/06/2009 [facility], ADILIA R 786.50 Chest Pain, Unspecified 08/06/2009 [facility], ADILIA R 786.50 Chest Pain, Unspecified 08/06/2009 [facility], ADILIA R 786.50 Chest Pain, Unspecified 08/06/2009 PASCUAL CHING, JOHNY 786.50 Chest Pain, Unspecified 08/06/2009 ESTHER CHAVEZ MD 786.50 Chest Pain, Unspecified 08/06/2009 [facility], ADILIA Montiel 786.50 Chest Pain, Unspecified 08/06/2009 ESTHER CHAVEZ MD 786.50 Chest Pain, Unspecified 08/06/2009 CHIDI DDS, BYRON 786.50 Chest Pain, Unspecified 08/06/2009 ESTHER CHAVEZ MD 786.50 Chest Pain, Unspecified 08/06/2009 [facility], ADILIA Montiel 786.50 Chest Pain, Unspecified 08/06/2009 ESTHER CHAVEZ MD 786.50 Chest Pain, Unspecified 08/06/2009 ESTHER CHAVEZ MD 786.50 Chest Pain, Unspecified 08/06/2009 ESTHER CHAVEZ MD 786.50 Chest Pain, Unspecified 08/06/2009 ESTHER CHAVEZ MD 786.50 Chest Pain, Unspecified 08/06/2009 SHANNON SALINAS, PARI Vu 786.50 Chest Pain, Unspecified 08/06/2009 ESTHER CHAVEZ MD 786.50 Chest Pain, Unspecified 08/06/2009 ESTHER CHAVEZ MD 786.50 Chest Pain, Unspecified 08/25/2009 305.1 TOBACCO ABUSE 08/25/2009 311 MO DEPRESS NOS 08/25/2009 338.4 PAIN CHRONIC SYNDROME 08/25/2009 JOHNY GARNER MD 305.1 TOBACCO ABUSE 08/25/2009 JOHNY GARNER MD 311 MO DEPRESS NOS 08/25/2009 JOHNY GARNER MD 338.4 PAIN CHRONIC SYNDROME 08/25/2009 305.1 TOBACCO ABUSE 08/25/2009 311 MO DEPRESS NOS 08/25/2009 338.4 PAIN CHRONIC SYNDROME 08/25/2009 305.1 TOBACCO ABUSE 08/25/2009 311 MO DEPRESS NOS 08/25/2009 338.4 PAIN CHRONIC SYNDROME 08/25/2009 JOHNY GARNER MD 305.1 TOBACCO ABUSE 08/25/2009 JOHNY GARNER MD 311 MO DEPRESS NOS 08/25/2009 JOHNY GARNER MD 338.4 PAIN CHRONIC SYNDROME 08/25/2009 JENN DONALD LCPC B 305.1 TOBACCO ABUSE 08/25/2009 SHABANA BROWNPC, JENN B 311 MO DEPRESS NOS 08/25/2009 JENN DONALD LCPC B 338.4 PAIN CHRONIC SYNDROME 08/25/2009 305.1 TOBACCO ABUSE 08/25/2009 311 MO DEPRESS NOS 08/25/2009 338.4 PAIN CHRONIC SYNDROME 08/25/2009 305.1 TOBACCO ABUSE 08/25/2009 311 MO DEPRESS NOS 08/25/2009 338.4 PAIN CHRONIC SYNDROME 08/25/2009 305.1 TOBACCO ABUSE 08/25/2009 311 MO DEPRESS NOS 08/25/2009 338.4 PAIN CHRONIC SYNDROME 08/25/2009 305.1 TOBACCO ABUSE 08/25/2009 311 MO DEPRESS NOS 08/25/2009 338.4 PAIN CHRONIC SYNDROME 08/25/2009 305.1 TOBACCO ABUSE 08/25/2009 311 MO DEPRESS NOS 08/25/2009 338.4 PAIN CHRONIC SYNDROME 08/25/2009 305.1 TOBACCO ABUSE 08/25/2009 311 MO DEPRESS NOS 08/25/2009 338.4 PAIN CHRONIC SYNDROME 08/25/2009 305.1 TOBACCO ABUSE 08/25/2009 311 MO DEPRESS NOS 08/25/2009 338.4 PAIN CHRONIC SYNDROME 08/25/2009 KAT AGUILAR MD 305.1 TOBACCO ABUSE 08/25/2009 KAT AGUILAR MD 311 MO DEPRESS NOS 08/25/2009 KAT AGUILAR MD 338.4 PAIN CHRONIC SYNDROME 08/25/2009 305.1 TOBACCO ABUSE 08/25/2009 311 MO DEPRESS NOS 08/25/2009 338.4 PAIN CHRONIC SYNDROME 08/25/2009 [facility], ADILIA R 305.1 TOBACCO ABUSE 08/25/2009 [facility], ADILIA R 311 MO DEPRESS NOS 08/25/2009 [facility], ADILIA R 338.4 PAIN CHRONIC SYNDROME 08/25/2009 JOHNY GARNER MD 305.1 TOBACCO ABUSE 08/25/2009 JOHNY GARNER MD 311 MO DEPRESS NOS 08/25/2009 JOHNY GARNER MD 338.4 PAIN CHRONIC SYNDROME 08/25/2009 WHITE DDS, RAFAELA D 305.1 TOBACCO ABUSE 08/25/2009 WHITE DDS, RAFAELA D 311 MO DEPRESS NOS 08/25/2009 WHITE DDS, RAFAELA D 338.4 PAIN CHRONIC SYNDROME 08/25/2009 [facility], ADILIA R 305.1 TOBACCO ABUSE 08/25/2009 [facility], ADILIA R 311 MO DEPRESS NOS 08/25/2009 [facility], ADILIA R 338.4 PAIN CHRONIC SYNDROME 08/25/2009 JOHNY GARNER MD 305.1 TOBACCO ABUSE 08/25/2009 JOHNY GARNER MD 311 MO DEPRESS NOS 08/25/2009 JOHNY GARNER MD 338.4 PAIN CHRONIC SYNDROME 08/25/2009 CHAVIS DO, KISHA K 305.1 TOBACCO ABUSE 08/25/2009 CHAVIS DO, KISHA K 311 MO DEPRESS NOS 08/25/2009 CHAVIS DO, KISHA K 338.4 PAIN CHRONIC SYNDROME 08/25/2009 [facility], ADILIA R 305.1 TOBACCO ABUSE 08/25/2009 [facility], ADILIA R 311 MO DEPRESS NOS 08/25/2009 [facility], ADILIA R 338.4 PAIN CHRONIC SYNDROME 08/25/2009 WHITE DDS, RAFAELA D 305.1 TOBACCO ABUSE 08/25/2009 WHITE DDS, RAFAELA D 311 MO DEPRESS NOS 08/25/2009 WHITE DDS, RAFAELA D 338.4 PAIN CHRONIC SYNDROME 08/25/2009 PASCUAL CHING, JOHNY 305.1 TOBACCO ABUSE 08/25/2009 PASCUAL CHING, JOHNY 311 MO DEPRESS NOS 08/25/2009 PASCUAL CHING, JOHNY 338.4 PAIN CHRONIC SYNDROME 08/25/2009 JOHNY GARNER MD 305.1 TOBACCO ABUSE 08/25/2009 JOHNY GARNER MD 311 MO DEPRESS NOS 08/25/2009 PASCUAL CHING, JOHNY 338.4 PAIN CHRONIC SYNDROME 08/25/2009 WHITE DDS, RAFAELA D 305.1 TOBACCO ABUSE 08/25/2009 WHITE DDS, RAFAELA D 311 MO DEPRESS NOS 08/25/2009 WHITE DDS, RAFAELA D 338.4 PAIN CHRONIC SYNDROME 08/25/2009 JOHNY GARNER MD 305.1 TOBACCO ABUSE 08/25/2009 JOHNY GARNER MD 311 MO DEPRESS NOS 08/25/2009 JOHNY GARNER MD 338.4 PAIN CHRONIC SYNDROME 08/25/2009 JOHNY GARNER MD 305.1 TOBACCO ABUSE 08/25/2009 JOHNY GARNER MD 311 MO DEPRESS NOS 08/25/2009 JOHNY GARNER MD 338.4 PAIN CHRONIC SYNDROME 08/25/2009 [facility], ADILIA R 305.1 TOBACCO ABUSE 08/25/2009 [facility], ADILIA R 311 MO DEPRESS NOS 08/25/2009 [facility], ADILIA R 338.4 PAIN CHRONIC SYNDROME 08/25/2009 JOHNY GARNER MD 305.1 TOBACCO ABUSE 08/25/2009 JOHNY GARNER MD 311 MO DEPRESS NOS 08/25/2009 JOHNY GARNER MD 338.4 PAIN CHRONIC SYNDROME 08/25/2009 [facility], ADILIA R 305.1 [facility]BACCO [facility]SE 08/25/[facility] 311 MO DEPRESS NOS 08/25/2009 [facility], ADILIA R 338.4 PAIN CHRONIC SYNDROME 08/25/2009 [facility], ADILIA R 305.1 TOBACCO ABUSE 08/25/2009 [facility] 311 MO DEPRESS NOS 08/25/2009 [facility], ADILIA R 338.4 PAIN CHRONIC SYNDROME 08/25/2009 [facility], ADILIA R 305.1 TOBACCO ABUSE 08/25/2009 [facility], ADILIA R 311 MO DEPRESS NOS 08/25/2009 [facility], ADILIA R 338.4 PAIN CHRONIC SYNDROME 08/25/2009 JOHNY GARNER MD 305.1 TOBACCO ABUSE 08/25/2009 JOHNY GARNER MD 311 MO DEPRESS NOS 08/25/2009 JOHNY GARNER MD 338.4 PAIN CHRONIC SYNDROME 08/25/2009 ESTHER CHAVEZ MD N 305.1 TOBACCO ABUSE 08/25/2009 KATHY CHING, ESTHER N 311 MO DEPRESS NOS 08/25/2009 ESTHER CHAVEZ MD 338.4 PAIN CHRONIC SYNDROME 08/25/2009 [facility], ADILIA R 305.1 TOBACCO ABUSE 08/25/2009 [facility], ADILIA R 311 MO DEPRESS NOS 08/25/2009 [facility], ADILIA R 338.4 PAIN CHRONIC SYNDROME 08/25/2009 ESTHER CHAVEZ MD N 305.1 TOBACCO ABUSE 08/25/2009 ESTHER CHAVEZ MD N 311 MO DEPRESS NOS 08/25/2009 ESTHER CHAVEZ MD N 338.4 PAIN CHRONIC SYNDROME 08/25/2009 MURILLO DDS, BYRON 305.1 TOBACCO ABUSE 08/25/2009 MURILLO DDS, BYRON 311 MO DEPRESS NOS 08/25/2009 MURILLO DDS, BYRON 338.4 PAIN CHRONIC SYNDROME 08/25/2009 ESTHER CHAVEZ MD N 305.1 TOBACCO ABUSE 08/25/2009 KATHY CHING ESTHER N 311 MO DEPRESS NOS 08/25/2009 ESTHER CHAVEZ MD N 338.4 PAIN CHRONIC SYNDROME 08/25/2009 [facility], ADILIA R 305.1 TOBACCO ABUSE 08/25/2009 [facility], ADILIA R 311 MO DEPRESS NOS 08/25/2009 [facility], ADILIA R 338.4 PAIN CHRONIC SYNDROME 08/25/2009 ESTHER CHAVEZ MD N 305.1 TOBACCO ABUSE 08/25/2009 KATHY CHING ESTHER N 311 MO DEPRESS NOS 08/25/2009 BRIAN CHAVEZ MDY N 338.4 PAIN CHRONIC SYNDROME 08/25/2009 ESTHER CHAVEZ MD N 305.1 TOBACCO ABUSE 08/25/2009 ESTHER CHAVEZ MD N 311 MO DEPRESS NOS 08/25/2009 BRIAN CHAVEZ MDY N 338.4 PAIN CHRONIC SYNDROME 08/25/2009 ESTHER CHAVEZ MD N 305.1 TOBACCO ABUSE 08/25/2009 ESTHER CHAVEZ MD N 311 MO DEPRESS NOS 08/25/2009 ESTHER CHAVEZ MD N 338.4 PAIN CHRONIC SYNDROME 08/25/2009 BRIAN CHAVEZ MDY N 305.1 TOBACCO ABUSE 08/25/2009 KATHY CHING ESTHER N 311 MO DEPRESS NOS 08/25/2009 ESTHER CHAVEZ MD N 338.4 PAIN CHRONIC SYNDROME 08/25/2009 SHANNON HISTORIC SITES SUPERVISOR, PARI M 305.1 TOBACCO ABUSE 08/25/2009 SHANNON HISTORIC SITES SUPERVISOR, PARI M 311 MO DEPRESS NOS 08/25/2009 SHANNON HISTORIC SITES SUPERVISOR, PARI M 338.4 PAIN CHRONIC SYNDROME 08/25/2009 ESTHER CHAVEZ MD N 305.1 TOBACCO ABUSE 08/25/2009 KATHY CHING ESTHER N 311 MO DEPRESS NOS 08/25/2009 ESTHER CHAVEZ MD N 338.4 PAIN CHRONIC SYNDROME 08/25/2009 ESTHER CHAVEZ MD N 305.1 TOBACCO ABUSE 08/25/2009 KATHY CHING ESTHER N 311 MO DEPRESS NOS 08/25/2009 ESTHER CHAVEZ MD N 338.4 PAIN CHRONIC SYNDROME 12/30/2009 788.64 URINARY HESITANCY 12/30/2009 JOHNY GARNER MD 788.64 Urinary Hesitancy 12/30/2009 788.64 Urinary Hesitancy 12/30/2009 788.64 Urinary Hesitancy 12/30/2009 JOHNY GARNER MD 788.64 Urinary Hesitancy 12/30/2009 JENN DONALD LCPC 788.64 Urinary Hesitancy 12/30/2009 788.64 Urinary Hesitancy 12/30/2009 788.64 Urinary Hesitancy 12/30/2009 788.64 Urinary Hesitancy 12/30/2009 788.64 Urinary Hesitancy 12/30/2009 788.64 Urinary Hesitancy 12/30/2009 788.64 Urinary Hesitancy 12/30/2009 788.64 Urinary Hesitancy 12/30/2009 JEFF CHING, KAT 788.64 URINARY HESITANCY 12/30/2009 788.64 Urinary Hesitancy 12/30/2009 [facility], ADILIA R 788.64 Urinary Hesitancy 12/30/2009 JOHNY GARNER MD 788.64 Urinary Hesitancy 12/30/2009 WHITE DDS, RAFAELA D 788.64 Urinary Hesitancy 12/30/2009 [facility], ADILIA R 788.64 Urinary Hesitancy 12/30/2009 JOHNY GARNER MD 788.64 Urinary Hesitancy 12/30/2009 KISHA CHAVIS DO 788.64 Urinary Hesitancy 12/30/2009 [facility], ADILIA R 788.64 Urinary Hesitancy 12/30/2009 WHITE DDS, RAFAELA D 788.64 Urinary Hesitancy 12/30/2009 JOHNY GARNER MD 788.64 Urinary Hesitancy 12/30/2009 JOHNY GARNER MD 788.64 Urinary Hesitancy 12/30/2009 WHITE DDS, RAFAELA D 788.64 Urinary Hesitancy 12/30/2009 JOHNY GARNER MD 788.64 Urinary Hesitancy 12/30/2009 JOHNY GARNER MD 788.64 Urinary Hesitancy 12/30/2009 [facility], ADILIA R 788.64 Urinary Hesitancy 12/30/2009 JOHNY GARNER MD 788.64 Urinary Hesitancy 12/30/2009 [facility], ADILIA R 788.64 Urinary Hesitancy 12/30/2009 [facility], AD[place] R 788.64 Urinary Hesitancy 12/30/2009 [facility], ADILIA R 788.64 Urinary Hesitancy 12/30/2009 JOHNY GARNER MD 788.64 Urinary Hesitancy 12/30/2009 ESTHER CHAVEZ MD 788.64 Urinary Hesitancy 12/30/2009 [facility], ADILIA R 788.64 Urinary Hesitancy 12/30/2009 KATHY CHING, ESTHER N 788.64 Urinary Hesitancy 12/30/2009 CHIDI KIDDS, BYRON 788.64 Urinary Hesitancy 12/30/2009 KATHY CHING, ESTHER N 788.64 Urinary Hesitancy 12/30/2009 [facility], ADILIA R 788.64 Urinary Hesitancy 12/30/2009 KATHY CHING, ESTHER N 788.64 Urinary Hesitancy 12/30/2009 KATHY CHING, ESTHER N 788.64 Urinary Hesitancy 12/30/2009 KATHY CHING, ESTHER N 788.64 Urinary Hesitancy 12/30/2009 KATHY CHING, ESTHER N 788.64 Urinary Hesitancy 12/30/2009 SHANNON SALINAS, PARI M 788.64 Urinary Hesitancy 12/30/2009 KATHY CHING, ESTHER N 788.64 Urinary Hesitancy 12/30/2009 KATHY CHING, ESTHER N 788.64 Urinary Hesitancy 03/24/2010 706.2 SEBACEOUS CYST 03/24/2010 719.46 PAIN IN JOINT INVOLVING LOWER LEG 03/24/2010 JOHNY GARNER MD 706.2 SEBACEOUS CYST 03/24/2010 JOHNY GARNER MD 719.46 PAIN IN JOINT INVOLVING LOWER LEG 03/24/2010 706.2 SEBACEOUS CYST 03/24/2010 719.46 PAIN IN JOINT INVOLVING LOWER LEG 03/24/2010 706.2 SEBACEOUS CYST 03/24/2010 719.46 PAIN IN JOINT INVOLVING LOWER LEG 03/24/2010 JOHNY GARNER MD 706.2 SEBACEOUS CYST 03/24/2010 JOHNY GARNER MD 719.46 PAIN IN JOINT INVOLVING LOWER LEG 03/24/2010 JENN DONALD LCPC 706.2 SEBACEOUS CYST 03/24/2010 JENN DONALD LCPC 719.46 PAIN IN JOINT INVOLVING LOWER LEG 03/24/2010 706.2 SEBACEOUS CYST 03/24/2010 719.46 PAIN IN JOINT INVOLVING LOWER LEG 03/24/2010 706.2 SEBACEOUS CYST 03/24/2010 719.46 PAIN IN JOINT INVOLVING LOWER LEG 03/24/2010 706.2 SEBACEOUS CYST 03/24/2010 719.46 PAIN IN JOINT INVOLVING LOWER LEG 03/24/2010 706.2 SEBACEOUS CYST 03/24/2010 719.46 PAIN IN JOINT INVOLVING LOWER LEG 03/24/2010 706.2 SEBACEOUS CYST 03/24/2010 719.46 PAIN IN JOINT INVOLVING LOWER LEG 03/24/2010 706.2 SEBACEOUS CYST 03/24/2010 719.46 PAIN IN JOINT INVOLVING LOWER LEG 03/24/2010 706.2 SEBACEOUS CYST 03/24/2010 719.46 PAIN IN JOINT INVOLVING LOWER LEG 03/24/2010 KAT AGUILAR MD 706.2 SEBACEOUS CYST 03/24/2010 KAT AGUILAR MD 719.46 PAIN IN JOINT INVOLVING LOWER LEG 03/24/2010 706.2 SEBACEOUS CYST 03/24/2010 719.46 PAIN IN JOINT INVOLVING LOWER LEG 03/24/2010 [facility]/24/2010 [facility]19.[facility] PAIN IN JOINT INVOLVING LOWER LEG 03/24/2010 JOHNY GARNER MD 706.2 SEBACEOUS CYST 03/24/2010 JOHNY GARNER MD 719.46 PAIN IN JOINT INVOLVING LOWER LEG 03/24/2010 RAFAELA SHELTON DDS 706.2 SEBACEOUS CYST 03/24/2010 RAFAELA SHELTON DDS 719.46 PAIN IN JOINT INVOLVING LOWER LEG 03/24/2010 [facility] 706.2 SEBACEOUS CYST 03/24/2010 [facility] 719.46 PAIN IN JOINT INVOLVING LOWER LEG 03/24/2010 JOHNY GARNER MD 706.2 SEBACEOUS CYST 03/24/2010 JOHNY GARNER MD 719.46 PAIN IN JOINT INVOLVING LOWER LEG 03/24/2010 KISHA CHAVIS DO 706.2 SEBACEOUS CYST 03/24/2010 KISHA CHAVIS DO 719.46 PAIN IN JOINT INVOLVING LOWER LEG 03/24/2010 SCOTT [place] CHOWDHURY R 706.2 SEBACEOUS CYST 03/24/2010 [facility] 719.46 PAIN IN JOINT INVOLVING LOWER LEG 03/24/2010 WHITE DDS, RAFAELA D 706.2 SEBACEOUS CYST 03/24/2010 WHITE DDS, RAFAELA D 719.46 PAIN IN JOINT INVOLVING LOWER LEG 03/24/2010 JOHNY GARNER MD 706.2 SEBACEOUS CYST 03/24/2010 PASCUAL CHING, JOHNY 719.46 PAIN IN JOINT INVOLVING LOWER LEG 03/24/2010 JOHNY GARNER MD 706.2 SEBACEOUS CYST 03/24/2010 JOHNY GARNER MD 719.46 PAIN IN JOINT INVOLVING LOWER LEG 03/24/2010 WHITE DDS, RAFAELA D 706.2 SEBACEOUS CYST 03/24/2010 WHITE DDS, RAFAELA D 719.46 PAIN IN JOINT INVOLVING LOWER LEG 03/24/2010 JOHNY GARNER MD 706.2 SEBACEOUS CYST 03/24/2010 JOHNY GARNER MD 719.46 PAIN IN JOINT INVOLVING LOWER LEG 03/24/2010 JOHNY GARNER MD 706.2 SEBACEOUS CYST 03/24/2010 JOHNY GARNER MD 719.46 PAIN IN JOINT INVOLVING LOWER LEG 03/24/2010 [facility] 706.2 SEBACEOUS CYST 03/24/2010 [facility] 719.46 PAIN IN JOINT INVOLVING LOWER LEG 03/24/2010 JOHNY GARNER MD 706.2 SEBACEOUS CYST 03/24/2010 JOHNY GARNER MD 719.46 PAIN IN JOINT INVOLVING LOWER LEG 03/24/2010 [facility] 706.2 SEBACEOUS CYST 03/24/2010 [facility] 719.[facility] PAIN IN JOINT INVOLVING LOWER LEG 03/24/2010 [facility] 706.2 SEBACEOUS CYST 03/24/2010 [facility] 719.46 PAIN IN JOINT INVOLVING LOWER LEG 03/24/2010 [facility] 706.2 SEBACEOUS CYST 03/24/2010 [facility] R 719.46 PAIN IN JOINT INVOLVING LOWER LEG 03/24/2010 JOHNY GARNER MD 706.2 SEBACEOUS CYST 03/24/2010 JOHNY GARNER MD 719.46 PAIN IN JOINT INVOLVING LOWER LEG 03/24/2010 ESTHER CHAVEZ MD 706.2 SEBACEOUS CYST 03/24/2010 KATHY MD, ESTHER N 719.46 PAIN IN JOINT INVOLVING LOWER LEG 03/24/2010 [facility], [place] R 706.2 SEBACEOUS CYST 03/24/2010 [facility], [place] R 719.46 PAIN IN JOINT INVOLVING LOWER LEG 03/24/2010 ESTHER CHAVEZ MD N 706.2 SEBACEOUS CYST 03/24/2010 ESTHER CHAVEZ MD N 719.46 PAIN IN JOINT INVOLVING LOWER LEG 03/24/2010 MURILLO DDSBYRON 706.2 SEBACEOUS CYST 03/24/2010 MURILLO DDS, BYRON 719.46 PAIN IN JOINT INVOLVING LOWER LEG 03/24/2010 ESTHER CHAVEZ MD N 706.2 SEBACEOUS CYST 03/24/2010 ESTHER CHAVEZ MD N 719.46 PAIN IN JOINT INVOLVING LOWER LEG 03/24/2010 [facility], [place] R 706.2 SEBACEOUS CYST 03/24/2010 [facility], [place] R 719.46 PAIN IN JOINT INVOLVING LOWER LEG 03/24/2010 ESTHER CHAVEZ MD N 706.2 SEBACEOUS CYST 03/24/2010 ESTHER CHAVEZ MD N 719.46 PAIN IN JOINT INVOLVING LOWER LEG 03/24/2010 ESTHER CHAVEZ MD N 706.2 SEBACEOUS CYST 03/24/2010 ESTHER CHAVEZ MD N 719.46 PAIN IN JOINT INVOLVING LOWER LEG 03/24/2010 ESTHER CHAVEZ MD N 706.2 SEBACEOUS CYST 03/24/2010 ESTHER CHAVEZ MD N 719.46 PAIN IN JOINT INVOLVING LOWER LEG 03/24/2010 ESTHER CHAVEZ MD N 706.2 SEBACEOUS CYST 03/24/2010 ESTHER CHAVEZ MD N 719.46 PAIN IN JOINT INVOLVING LOWER LEG 03/24/2010 PARI VILLAGRAN 706.2 SEBACEOUS CYST 03/24/2010 PARI VILLAGRAN 719.46 PAIN IN JOINT INVOLVING LOWER LEG 03/24/2010 ESTHER CHAVEZ MD N 706.2 SEBACEOUS CYST 03/24/2010 ESTHER CHAVEZ MD N 719.46 PAIN IN JOINT INVOLVING LOWER LEG 03/24/2010 ESTHER CHAVEZ MD N 706.2 SEBACEOUS CYST 03/24/2010 KATHY CHING, ESTHER N 719.46 PAIN IN JOINT INVOLVING LOWER LEG 03/30/2010 425.4 OTHER PRIMARY CARDIOMYOPATHIES 03/30/2010 780.52 INSOMNIA UNSPECIFIED 03/30/2010 JOHNY GARNER MD 425.4 OTHER PRIMARY CARDIOMYOPATHIES 03/30/2010 JOHNY GARNER MD 780.52 Insomnia Unspecified 03/30/2010 425.4 OTHER PRIMARY CARDIOMYOPATHIES 03/30/2010 780.52 Insomnia Unspecified 03/30/2010 425.4 OTHER PRIMARY CARDIOMYOPATHIES 03/30/2010 780.52 Insomnia Unspecified 03/30/2010 JOHNY GARNER MD 425.4 OTHER PRIMARY CARDIOMYOPATHIES 03/30/2010 JOHNY GARNER MD 780.52 Insomnia Unspecified 03/30/2010 JENN DONALD LCPC 425.4 OTHER PRIMARY CARDIOMYOPATHIES 03/30/2010 JENN DONALD LCPC 780.52 Insomnia Unspecified 03/30/2010 425.4 OTHER PRIMARY CARDIOMYOPATHIES 03/30/2010 780.52 Insomnia Unspecified 03/30/2010 425.4 OTHER PRIMARY CARDIOMYOPATHIES 03/30/2010 780.52 Insomnia Unspecified 03/30/2010 425.4 OTHER PRIMARY CARDIOMYOPATHIES 03/30/2010 780.52 Insomnia Unspecified 03/30/2010 425.4 OTHER PRIMARY CARDIOMYOPATHIES 03/30/2010 780.52 Insomnia Unspecified 03/30/2010 425.4 OTHER PRIMARY CARDIOMYOPATHIES 03/30/2010 780.52 Insomnia Unspecified 03/30/2010 425.4 OTHER PRIMARY CARDIOMYOPATHIES 03/30/2010 780.52 Insomnia Unspecified 03/30/2010 425.4 OTHER PRIMARY CARDIOMYOPATHIES 03/30/2010 780.52 Insomnia Unspecified 03/30/2010 KAT AGUILAR MD 425.4 OTHER PRIMARY CARDIOMYOPATHIES 03/30/2010 KAT AGUILAR MD 780.52 INSOMNIA UNSPECIFIED 03/30/2010 425.4 OTHER PRIMARY CARDIOMYOPATHIES 03/30/2010 780.52 Insomnia Unspecified 03/30/2010 [facility], ADILIA Montiel 425.4 OTHER PRIMARY CARDIOMYOPATHIES 03/30/2010 [facility], ADILIA Montiel 780.52 Insomnia Unspecified 03/30/2010 JOHNY GARNER MD 425.4 OTHER PRIMARY CARDIOMYOPATHIES 03/30/2010 JOHNY GARNER MD 780.52 Insomnia Unspecified 03/30/2010 [facility], RAFAELA D 425.4 OTHER PRIMARY CARDIOMYOPATHIES 03/30/2010 [facility], RAFAELA D 780.52 Insomnia Unspecified 03/30/2010 [facility], ADILIA R 425.4 OTHER PRIMARY CARDIOMYOPATHIES 03/30/2010 [facility], ADILIA R 780.52 Insomnia Unspecified 03/30/2010 JOHNY GARNER MD 425.4 OTHER PRIMARY CARDIOMYOPATHIES 03/30/2010 JOHNY GARNER MD 780.52 Insomnia Unspecified 03/30/2010 CHAVIS DO, KISHA K 425.4 OTHER PRIMARY CARDIOMYOPATHIES 03/30/2010 CHAVIS DO, KISHA K 780.52 Insomnia Unspecified 03/30/2010 [facility], ADILIA R 425.4 OTHER PRIMARY CARDIOMYOPATHIES 03/30/2010 [facility], ADILIA R 780.52 Insomnia Unspecified 03/30/2010 [facility], RAFAELA D 425.4 OTHER PRIMARY CARDIOMYOPATHIES 03/30/2010 [facility], RAFAELA D 780.52 Insomnia Unspecified 03/30/2010 JOHNY GARNER MD 425.4 OTHER PRIMARY CARDIOMYOPATHIES 03/30/2010 JOHNY GARNER MD 780.52 Insomnia Unspecified 03/30/2010 JOHNY GARNER MD 425.4 OTHER PRIMARY CARDIOMYOPATHIES 03/30/2010 JOHNY GARNER MD 780.52 Insomnia Unspecified 03/30/2010 [facility], RAFAELA D 425.4 OTHER PRIMARY CARDIOMYOPATHIES 03/30/2010 [facility], RAFAELA D 780.52 Insomnia Unspecified 03/30/2010 JOHNY GARNER MD 425.4 OTHER PRIMARY CARDIOMYOPATHIES 03/30/2010 JOHNY GARNER MD 780.52 Insomnia Unspecified 03/30/2010 JOHNY GARNER MD 425.4 OTHER PRIMARY CARDIOMYOPATHIES 03/30/2010 JOHNY GARNER MD 780.52 Insomnia Unspecified 03/30/2010 [facility], ADILIA R 425.4 OTHER PRIMARY CARDIOMYOPATHIES 03/30/2010 [facility], ADILIA R 780.52 Insomnia Unspecified 03/30/2010 JOHNY GARNER MD 425.4 OTHER PRIMARY CARDIOMYOPATHIES 03/30/2010 JOHNY GARNER MD 780.52 Insomnia Unspecified 03/30/2010 [facility], ADILIA R 425.4 OTHER PRIMARY CARDIOMYOPATHIES 03/30/2010 [facility], ADILIA R 780.52 Insomnia Unspecified 03/30/2010 [facility], ADILIA R 425.4 OTHER PRIMARY CARDIOMYOPATHIES 03/30/2010 [facility], ADILIA R 780.52 Insomnia Unspecified 03/30/2010 [facility], ADILIA R 425.4 OTHER PRIMARY CARDIOMYOPATHIES 03/30/2010 [facility], ADILIA R 780.52 Insomnia Unspecified 03/30/2010 JOHNY GARNER MD 425.4 OTHER PRIMARY CARDIOMYOPATHIES 03/30/2010 JOHNY GARNER MD 780.52 Insomnia Unspecified 03/30/2010 ESTHER CHAVEZ MD N 425.4 OTHER PRIMARY CARDIOMYOPATHIES 03/30/2010 ESTHER CHAVEZ MD 780.52 Insomnia Unspecified 03/30/2010 [facility], ADILIA R 425.4 OTHER PRIMARY CARDIOMYOPATHIES 03/30/2010 [facility], ADILIA R 780.52 Insomnia Unspecified 03/30/2010 ESTHER CHAVEZ MD N 425.4 OTHER PRIMARY CARDIOMYOPATHIES 03/30/2010 ESTHER CHAVEZ MD N 780.52 Insomnia Unspecified 03/30/2010 [facility], BYRON 425.4 OTHER PRIMARY CARDIOMYOPATHIES 03/30/2010 [facility], BYRON 780.52 Insomnia Unspecified 03/30/2010 ESTHER CHAVEZ MD N 425.4 OTHER PRIMARY CARDIOMYOPATHIES 03/30/2010 ESTHER CHAVEZ MD N 780.52 Insomnia Unspecified 03/30/2010 [facility], ADILIA R 425.4 OTHER PRIMARY CARDIOMYOPATHIES 03/30/2010 [facility], ADILIA R 780.52 Insomnia Unspecified 03/30/2010 ESTHER CHAVEZ MD N 425.4 OTHER PRIMARY CARDIOMYOPATHIES 03/30/2010 ESTHER CHAVEZ MD N 780.52 Insomnia Unspecified 03/30/2010 ESTHER CHAVEZ MD N 425.4 OTHER PRIMARY CARDIOMYOPATHIES 03/30/2010 ESTHER CHAVEZ MD N 780.52 Insomnia Unspecified 03/30/2010 ESTHER CHAVEZ MD N 425.4 OTHER PRIMARY CARDIOMYOPATHIES 03/30/2010 ESTHER CHAVEZ MD N 780.52 Insomnia Unspecified 03/30/2010 ESTHER CHAVEZ MD N 425.4 OTHER PRIMARY CARDIOMYOPATHIES 03/30/2010 ESTHER CHAVEZ MD N 780.52 Insomnia Unspecified 03/30/2010 PARI VILLAGRAN 425.4 OTHER PRIMARY CARDIOMYOPATHIES 03/30/2010 PARI VILLAGRAN M 780.52 Insomnia Unspecified 03/30/2010 ESTHER CHAVEZ MD 425.4 OTHER PRIMARY CARDIOMYOPATHIES 03/30/2010 ESTHER CHAVEZ MD 780.52 Insomnia Unspecified 03/30/2010 ESTHER CHAVEZ MD 425.4 OTHER PRIMARY CARDIOMYOPATHIES 03/30/2010 ESTHER CHAVEZ MD 780.52 Insomnia Unspecified 04/29/2010 401.1 HYPERTENSION, BENIGN ESSENTIAL 04/29/2010 414.8 OTHER SPECIFIED FORMS OF CHRONIC ISCHEMIC HEART DISEASE 04/29/2010 JOHNY GARNER MD 401.1 Hypertension, Benign Essential 04/29/2010 JOHNY GARNER MD 414.8 Other Specified Forms Of Chronic Ischemic Heart Disease 04/29/2010 401.1 Hypertension, Benign Essential 04/29/2010 414.8 Other Specified Forms Of Chronic Ischemic Heart Disease 04/29/2010 401.1 Hypertension, Benign Essential 04/29/2010 414.8 Other Specified Forms Of Chronic Ischemic Heart Disease 04/29/2010 JOHNY GARNER MD 401.1 Hypertension, Benign Essential 04/29/2010 JOHNY GARNER MD 414.8 Other Specified Forms Of Chronic Ischemic Heart Disease 04/29/2010 JENN DONALD LCPC 401.1 Hypertension, Benign Essential 04/29/2010 JENN DONALD LCPC 414.8 Other Specified Forms Of Chronic Ischemic Heart Disease 04/29/2010 401.1 Hypertension, Benign Essential 04/29/2010 414.8 Other Specified Forms Of Chronic Ischemic Heart Disease 04/29/2010 401.1 Hypertension, Benign Essential 04/29/2010 414.8 Other Specified Forms Of Chronic Ischemic Heart Disease 04/29/2010 401.1 Hypertension, Benign Essential 04/29/2010 414.8 Other Specified Forms Of Chronic Ischemic Heart Disease 04/29/2010 401.1 Hypertension, Benign Essential 04/29/2010 414.8 Other Specified Forms Of Chronic Ischemic Heart Disease 04/29/2010 401.1 Hypertension, Benign Essential 04/29/2010 414.8 Other Specified Forms Of Chronic Ischemic Heart Disease 04/29/2010 401.1 Hypertension, Benign Essential 04/29/2010 414.8 Other Specified Forms Of Chronic Ischemic Heart Disease 04/29/2010 401.1 Hypertension, Benign Essential 04/29/2010 414.8 Other Specified Forms Of Chronic Ischemic Heart Disease 04/29/2010 KAT AGUILAR MD 401.1 HYPERTENSION, BENIGN ESSENTIAL 04/29/2010 AKT AGUILAR MD 414.8 OTHER SPECIFIED FORMS OF CHRONIC ISCHEMIC HEART DISEASE 04/29/2010 401.1 Hypertension, Benign Essential 04/29/2010 414.8 Other Specified Forms Of Chronic Ischemic Heart Disease 04/29/2010 [facility], [place] 401.1 Hypertension, Benign Essential 04/29/2010 [facility], [place] [facility] 414.8 Other Specified Forms Of Chronic Ischemic Heart Disease 04/29/2010 JOHNY GARNER MD 401.1 Hypertension, Benign Essential 04/29/2010 JOHNY GARNER MD 414.8 Other Specified Forms Of Chronic Ischemic Heart Disease 04/29/2010 WHITE DDS, RAFAELA D 401.1 Hypertension, Benign Essential 04/29/2010 WHITE DDS, RAFAELA D 414.8 Other Specified Forms Of Chronic Ischemic Heart Disease 04/29/2010 [facility], [place] 401.1 Hypertension, Benign Essential 04/29/2010 [facility], [place] [facility] 414.8 Other Specified Forms Of Chronic Ischemic Heart Disease 04/29/2010 JOHNY GARNER MD 401.1 Hypertension, Benign Essential 04/29/2010 JOHNY GARNER MD 414.8 Other Specified Forms Of Chronic Ischemic Heart Disease 04/29/2010 CHAVIS DO, KISHA K 401.1 Hypertension, Benign Essential 04/29/2010 CHAVIS DO, KISHA K 414.8 Other Specified Forms Of Chronic Ischemic Heart Disease 04/29/2010 [facility], [place] [facility] 401.1 Hypertension, Benign Essential 04/29/2010 [facility], [place] [facility] 414.8 Other Specified Forms Of Chronic Ischemic Heart Disease 04/29/2010 WHITE DDS, RAFAELA D 401.1 Hypertension, Benign Essential 04/29/2010 WHITE DDS, RAFAELA D 414.8 Other Specified Forms Of Chronic Ischemic Heart Disease 04/29/2010 JOHNY GARNER MD 401.1 Hypertension, Benign Essential 04/29/2010 JOHNY GARNER MD 414.8 Other Specified Forms Of Chronic Ischemic Heart Disease 04/29/2010 JOHNY GARNER MD 401.1 Hypertension, Benign Essential 04/29/2010 JOHNY GARNER MD 414.8 Other Specified Forms Of Chronic Ischemic Heart Disease 04/29/2010 WHITE DDS, RAFAELA Yanez 401.1 Hypertension, Benign Essential 04/29/2010 WHITE DDS, RAFAELA D 414.8 Other Specified Forms Of Chronic Ischemic Heart Disease 04/29/2010 JOHNY GARNER MD 401.1 Hypertension, Benign Essential 04/29/2010 JOHNY GARNER MD 414.8 Other Specified Forms Of Chronic Ischemic Heart Disease 04/29/2010 JOHNY GARNER MD 401.1 Hypertension, Benign Essential 04/29/2010 JOHNY GARNER MD 414.8 Other Specified Forms Of Chronic Ischemic [facility] 04/29/[facility] 401.1 Hypertension, Benign Essential 04/29/2010 [facility], [place] [facility] 414.8 Other Specified Forms Of Chronic Ischemic Heart Disease 04/29/2010 JOHNY GARNER MD 401.1 Hypertension, Benign Essential 04/29/2010 JOHNY GARNER MD 414.8 Other Specified Forms Of Chronic Ischemic Heart Disease 04/29/2010 [facility], [place] [facility] 401.1 Hypertension, Benign Essential 04/29/2010 [facility], [place] [facility] 414.8 Other Specified Forms Of Chronic Ischemic Heart Disease 04/29/2010 [facility], [place] [facility] 401.1 Hypertension, Benign Essential 04/29/2010 [facility], [place] [facility] 414.8 Other Specified Forms Of Chronic Ischemic Heart Disease 04/29/2010 [facility], [place] 401.1 Hypertension, Benign Essential 04/29/2010 [facility] [place] [facility] 414.8 Other Specified Forms Of Chronic Ischemic Heart Disease 04/29/2010 JOHNY GARNER MD 401.1 Hypertension, Benign Essential 04/29/2010 JOHNY GARNER MD 414.8 Other Specified Forms Of Chronic Ischemic Heart Disease 04/29/2010 ESTHER CHAVEZ MD N 401.1 Hypertension, Benign Essential 04/29/2010 ESTHER CHAVEZ MD N 414.8 Other Specified Forms Of Chronic Ischemic Heart Disease 04/29/2010 [facility] 401.1 Hypertension, Benign Essential 04/29/2010 [facility], [place] [facility] 414.8 Other Specified Forms Of Chronic Ischemic Heart Disease 04/29/2010 ESTHER CHAVEZ MD N 401.1 Hypertension, Benign Essential 04/29/2010 ESTHER CHAVEZ MD N 414.8 Other Specified Forms Of Chronic Ischemic Heart Disease 04/29/2010 CHIDI KIDDS, BYRON 401.1 Hypertension, Benign Essential 04/29/2010 MURILLO DDS, [place]RON 414.8 Other Specified Forms Of Chronic Ischemic Heart Disease 04/29/2010 ESTHER CHAVEZ MD N 401.1 Hypertension, Benign Essential 04/29/2010 ESTHER CHAVEZ MD N 414.8 Other Specified Forms Of Chronic Ischemic Heart Disease 04/29/2010 [facility], [place] 401.1 Hypertension, Benign Essential 04/29/2010 [facility] [place] [facility] 414.8 Other Specified Forms Of Chronic Ischemic Heart Disease 04/29/2010 ESTHER CHAVEZ MD N 401.1 Hypertension, Benign Essential 04/29/2010 ESTHER CHAVEZ MD N 414.8 Other Specified Forms Of Chronic Ischemic Heart Disease 04/29/2010 ESTHER CHAVEZ MD N 401.1 Hypertension, Benign Essential 04/29/2010 ESTHER CHAVEZ MD N 414.8 Other Specified Forms Of Chronic Ischemic Heart Disease 04/29/2010 ESTHER CHAVEZ MD N 401.1 Hypertension, Benign Essential 04/29/2010 ESTHER CHAVEZ MD N 414.8 Other Specified Forms Of Chronic Ischemic Heart Disease 04/29/2010 ESTHER CHAVEZ MD N 401.1 Hypertension, Benign Essential 04/29/2010 ESTHER CHAVEZ MD N 414.8 Other Specified Forms Of Chronic Ischemic Heart Disease 04/29/2010 PARI VILLAGRAN 401.1 Hypertension, Benign Essential 04/29/2010 PARI VILLAGRAN 414.8 Other Specified Forms Of Chronic Ischemic Heart Disease 04/29/2010 ESTHER CHAVEZ MD N 401.1 Hypertension, Benign Essential 04/29/2010 ESTHER CHAVEZ MD N 414.8 Other Specified Forms Of Chronic Ischemic Heart Disease 04/29/2010 ESTHER CHAVEZ MD N 401.1 Hypertension, Benign Essential 04/29/2010 ESTHER CHAVEZ MD N 414.8 Other Specified Forms Of Chronic Ischemic Heart Disease 06/29/2010 Ot 454.1 LEG VARICOSITY W INFLAM 06/29/2010 Ot 729.5 PAIN IN LIMB 06/29/2010 Ot 959.7 LOWER LEG INJURY NOS 06/29/2010 Ot E000.8 OTHER EXTERNAL CAUSE STATUS 06/29/2010 Ot E849.0 ACCIDENT IN HOME 06/29/2010 Ot E888.9 FALL NOS 07/02/2010 715.90 OSTEOARTHROSIS UNSPECIFIED WHETHER GENERALIZED OR LOCALIZED INVOLVING UNSPECIFIED SITE 07/02/2010 JOHNY GARNER MD 715. Osteoarthrosis Unspecified Whether Generalized Or Localized Involving Unspecified Site 07/02/2010 715.90 Osteoarthrosis Unspecified Whether Generalized Or Localized Involving Unspecified Site 07/02/2010 715.90 Osteoarthrosis Unspecified Whether Generalized Or Localized Involving Unspecified Site 07/02/2010 JOHNY GARNER MD 715.90 Osteoarthrosis Unspecified Whether Generalized Or Localized Involving Unspecified Site 07/02/2010 JENN DONALD [facility] 715.90 Osteoarthrosis Unspecified Whether Generalized Or Localized Involving Unspecified Site 07/02/2010 715.90 Osteoarthrosis Unspecified Whether Generalized Or Localized Involving Unspecified Site 07/02/2010 715.90 Osteoarthrosis Unspecified Whether Generalized Or Localized Involving Unspecified Site 07/02/2010 715.90 Osteoarthrosis Unspecified Whether Generalized Or Localized Involving Unspecified Site 07/02/2010 715.90 Osteoarthrosis Unspecified Whether Generalized Or Localized Involving Unspecified Site 07/02/2010 715.90 Osteoarthrosis Unspecified Whether Generalized Or Localized Involving Unspecified Site 07/02/2010 715.90 Osteoarthrosis Unspecified Whether Generalized Or Localized Involving Unspecified Site 07/02/2010 715.90 Osteoarthrosis Unspecified Whether Generalized Or Localized Involving Unspecified Site 07/02/2010 KAT AGUILAR MD 715.90 OSTEOARTHROSIS UNSPECIFIED WHETHER GENERALIZED OR LOCALIZED INVOLVING UNSPECIFIED SITE 07/02/2010 715.90 Osteoarthrosis Unspecified Whether Generalized Or Localized Involving Unspecified Site 07/02/2010 [facility], [place] 715.90 Osteoarthrosis Unspecified Whether Generalized Or Localized Involving Unspecified Site 07/02/2010 JOHNY GARNER MD 715. Osteoarthrosis Unspecified Whether Generalized Or Localized Involving Unspecified Site 07/02/2010 RAFAELA SHELTON DDS 715.90 Osteoarthrosis Unspecified Whether Generalized Or Localized Involving Unspecified Site 07/02/2010 [facility], [place] 715.90 Osteoarthrosis Unspecified Whether Generalized Or Localized Involving Unspecified Site 07/02/2010 JOHNY GARNER MD 715.Tiffanie Osteoarthrosis Unspecified Whether Generalized Or Localized Involving Unspecified Site 07/02/2010 KISHA CHAVIS DO 715.90 Osteoarthrosis Unspecified Whether Generalized Or Localized Involving Unspecified Site 07/02/2010 [facility], [place] 715.90 Osteoarthrosis Unspecified Whether Generalized Or Localized Involving Unspecified Site 07/02/2010 WHITE MARTISRAFAELA 715.90 Osteoarthrosis Unspecified Whether Generalized Or Localized Involving Unspecified Site 07/02/2010 JOHNY GARNER MD5.Tiffanie Osteoarthrosis Unspecified Whether Generalized Or Localized Involving Unspecified Site 07/02/2010 JHONY GARNER MD5.Tiffanie Osteoarthrosis Unspecified Whether Generalized Or Localized Involving Unspecified Site 07/02/2010 WHITE MARTISRAFAELA 715.90 Osteoarthrosis Unspecified Whether Generalized Or Localized Involving Unspecified Site 07/02/2010 JOHNY GARNER MD5.Tiffanie Osteoarthrosis Unspecified Whether Generalized Or Localized Involving Unspecified Site 07/02/2010 JOHNY GARNER MD 715.Tiffanie Osteoarthrosis Unspecified Whether Generalized Or Localized Involving Unspecified Site 07/02/2010 [facility], [place] 715.90 Osteoarthrosis Unspecified Whether Generalized Or Localized Involving Unspecified Site 07/02/2010 JOHNY GARNER MD 715.Tiffanie Osteoarthrosis Unspecified Whether Generalized Or Localized Involving Unspecified Site 07/02/2010 [facility], [place] 715.90 Osteoarthrosis Unspecified Whether Generalized Or Localized Involving Unspecified Site 07/02/2010 [facility], [place] 715.90 Osteoarthrosis Unspecified Whether Generalized Or Localized Involving Unspecified Site 07/02/2010 [facility], [place] 715.90 Osteoarthrosis Unspecified Whether Generalized Or Localized Involving Unspecified Site 07/02/2010 JOHNY GARNER MD 715.Tiffanie Osteoarthrosis Unspecified Whether Generalized Or Localized Involving Unspecified Site 07/02/2010 ESTHER CHAVEZ MD 715.Tiffanie Osteoarthrosis Unspecified Whether Generalized Or Localized Involving Unspecified Site 07/02/2010 [facility], [place] 715.90 Osteoarthrosis Unspecified Whether Generalized Or Localized Involving Unspecified Site 07/02/2010 ESTHER CHAVEZ MD 715.90 Osteoarthrosis Unspecified Whether Generalized Or Localized Involving Unspecified Site 07/02/2010 CHIDI S, [place] 715.90 Osteoarthrosis Unspecified Whether Generalized Or Localized Involving Unspecified Site 07/02/2010 ESTHER CHAVEZ MD 715.90 Osteoarthrosis Unspecified Whether Generalized Or Localized Involving Unspecified Site 07/02/2010 [facility], [place] Montiel 715.90 Osteoarthrosis Unspecified Whether Generalized Or Localized Involving Unspecified Site 07/02/2010 ESTHER CHAVEZ MD N 715.90 Osteoarthrosis Unspecified Whether Generalized Or Localized Involving Unspecified Site 07/02/2010 ESTHER CHAVEZ MD N 715.90 Osteoarthrosis Unspecified Whether Generalized Or Localized Involving Unspecified Site 07/02/2010 ESTHER CHAVEZ MD N 715.90 Osteoarthrosis Unspecified Whether Generalized Or Localized Involving Unspecified Site 07/02/2010 ESTHER CHAVEZ MD N 715.90 Osteoarthrosis Unspecified Whether Generalized Or Localized Involving Unspecified Site 07/02/2010 PARI VILLAGRAN 715.90 Osteoarthrosis Unspecified Whether Generalized Or Localized Involving Unspecified Site 07/02/2010 ESTHER CHAVEZ MD N 715.90 Osteoarthrosis Unspecified Whether Generalized Or Localized Involving Unspecified Site 07/02/2010 ESTHER CHAVEZ MD N 715.90 Osteoarthrosis Unspecified Whether Generalized Or Localized Involving Unspecified Site 07/30/2010 Ot 824.8 FX ANKLE NOS-CLOSED 07/30/2010 Ot 959.7 LOWER LEG INJURY NOS 07/30/2010 Ot E000.8 OTHER EXTERNAL CAUSE STATUS 07/30/2010 Ot E849.0 ACCIDENT IN HOME 07/30/2010 Ot E927.0 OVEREXERTION FROM SUDDEN STRENUOUS MOVEM 08/05/2010 250.00 DIABETES II CONTROLLED (UNCOMPLICATED) 08/05/2010 JOHNY GARNER MD 250.00 DIABETES II CONTROLLED (UNCOMPLICATED) 08/05/2010 250.00 DIABETES II CONTROLLED (UNCOMPLICATED) 08/05/2010 250.00 DIABETES II CONTROLLED (UNCOMPLICATED) 08/05/2010 JOHNY GARNER MD 250.00 DIABETES II CONTROLLED (UNCOMPLICATED) 08/05/2010 JENN DONALD [facility] 250.00 DIABETES II CONTROLLED (UNCOMPLICATED) 08/05/2010 250.00 DIABETES II CONTROLLED (UNCOMPLICATED) 08/05/2010 250.00 DIABETES II CONTROLLED (UNCOMPLICATED) 08/05/2010 250.00 DIABETES II CONTROLLED (UNCOMPLICATED) 08/05/2010 250.00 DIABETES II CONTROLLED (UNCOMPLICATED) 08/05/2010 250.00 DIABETES II CONTROLLED (UNCOMPLICATED) 08/05/2010 250.00 DIABETES II CONTROLLED (UNCOMPLICATED) 08/05/2010 250.00 DIABETES II CONTROLLED (UNCOMPLICATED) 08/05/2010 KAT AGUILAR MD 250.00 DIABETES II CONTROLLED (UNCOMPLICATED) 08/05/2010 250.00 DIABETES II CONTROLLED (UNCOMPLICATED) 08/05/2010 [facility], [place] 250.00 DIABETES II CONTROLLED (UNCOMPLICATED) 08/05/2010 JOHNY GARNER MD 250.00 DIABETES II CONTROLLED (UNCOMPLICATED) 08/05/2010 WHITE DDS, RAFAELA D 250.00 DIABETES II CONTROLLED (UNCOMPLICATED) 08/05/2010 [facility], [place] [facility] 250.00 DIABETES II CONTROLLED (UNCOMPLICATED) 08/05/2010 JOHNY GARNER MD 250.00 DIABETES II CONTROLLED (UNCOMPLICATED) 08/05/2010 PALMIRA MEDINA KISHA Zaid 250.00 DIABETES II CONTROLLED (UNCOMPLICATED) 08/05/2010 [facility], [place] 250.00 DIABETES II CONTROLLED (UNCOMPLICATED) 08/05/2010 WHITE DDS, RAFAELA D 250.00 DIABETES II CONTROLLED (UNCOMPLICATED) 08/05/2010 JOHNY GARNER MD 250.00 DIABETES II CONTROLLED (UNCOMPLICATED) 08/05/2010 JOHNY GARNER MD 250.00 DIABETES II CONTROLLED (UNCOMPLICATED) 08/05/2010 WHITE DDS, RAFAELA D 250.00 DIABETES II CONTROLLED (UNCOMPLICATED) 08/05/2010 JOHNY GARNER MD 250.00 DIABETES II CONTROLLED (UNCOMPLICATED) 08/05/2010 JOHNY GARNER MD 250.00 DIABETES II CONTROLLED (UNCOMPLICATED) 08/05/2010 [facility], [place] 250.00 DIABETES II CONTROLLED (UNCOMPLICATED) 08/05/2010 JOHNY GARNER MD 250.00 DIABETES II CONTROLLED (UNCOMPLICATED) 08/05/2010 [facility], [place] 250.00 DIABETES II CONTROLLED (UNCOMPLICATED) 08/05/2010 [facility], [place] 250.00 DIABETES II CONTROLLED (UNCOMPLICATED) 08/05/2010 [facility], [place] 250.00 DIABETES II CONTROLLED (UNCOMPLICATED) 08/05/2010 JOHNY GARNER MD 250.00 DIABETES II CONTROLLED (UNCOMPLICATED) 08/05/2010 ESTHER CHAVEZ MD N 250.00 DIABETES II CONTROLLED (UNCOMPLICATED) 08/05/2010 [facility], [place] 250.00 DIABETES II CONTROLLED (UNCOMPLICATED) 08/05/2010 KATHY CHING, ESTHER N 250.00 DIABETES II CONTROLLED (UNCOMPLICATED) 08/05/2010 CHIDI SINGHBYRON 250.00 DIABETES II CONTROLLED (UNCOMPLICATED) 08/05/2010 ESTHER CHAVEZ MD N 250.00 DIABETES II CONTROLLED (UNCOMPLICATED) 08/05/2010 [facility], [place] 250.00 DIABETES II CONTROLLED (UNCOMPLICATED) 08/05/2010 KATHY CHING, ESTHER N 250.00 DIABETES II CONTROLLED (UNCOMPLICATED) 08/05/2010 KATHY CHING, ESTHER N 250.00 DIABETES II CONTROLLED (UNCOMPLICATED) 08/05/2010 KATHY CHING, ESTHER N 250.00 DIABETES II CONTROLLED (UNCOMPLICATED) 08/05/2010 KATHY CHING, ESTHER N 250.00 DIABETES II CONTROLLED (UNCOMPLICATED) 08/05/2010 PARI VILLAGRAN 250.00 DIABETES II CONTROLLED (UNCOMPLICATED) 08/05/2010 KTAHY CHING, ESTHER N 250.00 DIABETES II CONTROLLED (UNCOMPLICATED) 08/05/2010 KATHY CHING, ESTHER N 250.00 DIABETES II CONTROLLED (UNCOMPLICATED) 10/19/2010 372.14 OTHER CHRONIC ALLERGIC CONJUNCTIVITIS 10/19/2010 692.9 CONTACT DERMATITIS AND OTHER ECZEMA UNSPECIFIED CAUSE 10/19/2010 JOHNY GARNER MD 372.14 OTHER CHRONIC ALLERGIC CONJUNCTIVITIS 10/19/2010 JOHNY GARNER MD 692.9 Contact Dermatitis And Other Eczema Unspecified Cause 10/19/2010 372.14 OTHER CHRONIC ALLERGIC CONJUNCTIVITIS 10/19/2010 692.9 Contact Dermatitis And Other Eczema Unspecified Cause 10/19/2010 372.14 OTHER CHRONIC ALLERGIC CONJUNCTIVITIS 10/19/2010 692.9 Contact Dermatitis And Other Eczema Unspecified Cause 10/19/2010 JOHNY GARNER MD 372.14 OTHER CHRONIC ALLERGIC CONJUNCTIVITIS 10/19/2010 JOHNY GARNER MD 692.9 Contact Dermatitis And Other Eczema Unspecified Cause 10/19/2010 JENN DONALD [facility] 372.14 OTHER CHRONIC ALLERGIC CONJUNCTIVITIS 10/19/2010 JENN DONALD [facility] 692.9 Contact Dermatitis And Other Eczema Unspecified Cause 10/19/2010 372.14 OTHER CHRONIC ALLERGIC CONJUNCTIVITIS 10/19/2010 692.9 Contact Dermatitis And Other Eczema Unspecified Cause 10/19/2010 372.14 OTHER CHRONIC ALLERGIC CONJUNCTIVITIS 10/19/2010 692.9 Contact Dermatitis And Other Eczema Unspecified Cause 10/19/2010 372.14 OTHER CHRONIC ALLERGIC CONJUNCTIVITIS 10/19/2010 692.9 Contact Dermatitis And Other Eczema Unspecified Cause 10/19/2010 372.14 OTHER CHRONIC ALLERGIC CONJUNCTIVITIS 10/19/2010 692.9 Contact Dermatitis And Other Eczema Unspecified Cause 10/19/2010 372.14 OTHER CHRONIC ALLERGIC CONJUNCTIVITIS 10/19/2010 692.9 Contact Dermatitis And Other Eczema Unspecified Cause 10/19/2010 372.14 OTHER CHRONIC ALLERGIC CONJUNCTIVITIS 10/19/2010 692.9 Contact Dermatitis And Other Eczema Unspecified Cause 10/19/2010 372.14 OTHER CHRONIC ALLERGIC CONJUNCTIVITIS 10/19/2010 692.9 Contact Dermatitis And Other Eczema Unspecified Cause 10/19/2010 KAT AGUILAR MD 372.14 OTHER CHRONIC ALLERGIC CONJUNCTIVITIS 10/19/2010 KAT AGUILAR MD 692.9 CONTACT DERMATITIS AND OTHER ECZEMA UNSPECIFIED CAUSE 10/19/2010 372.14 OTHER CHRONIC ALLERGIC CONJUNCTIVITIS 10/19/2010 692.9 Contact Dermatitis And Other Eczema Unspecified Cause 10/19/2010 [facility] [place] 372.14 OTHER CHRONIC ALLERGIC CONJUNCTIVITIS 10/19/2010 [facility] [place] [facility] 692.9 Contact Dermatitis And Other Eczema Unspecified Cause 10/19/2010 JOHNY GARNER MD 372.14 OTHER CHRONIC ALLERGIC CONJUNCTIVITIS 10/19/2010 JOHNY GARNER MD 692.9 Contact Dermatitis And Other Eczema Unspecified Cause 10/19/2010 WHITE DDS, RAFAELA D 372.14 OTHER CHRONIC ALLERGIC CONJUNCTIVITIS 10/19/2010 WHITE DDS, RAFAELA D 692.9 Contact Dermatitis And Other Eczema Unspecified Cause 10/19/2010 [facility] [place] 372.14 OTHER CHRONIC ALLERGIC CONJUNCTIVITIS 10/19/2010 [facility] [place] 692.9 Contact Dermatitis And Other Eczema Unspecified Cause 10/19/2010 JOHNY GARNER MD 372.14 OTHER CHRONIC ALLERGIC CONJUNCTIVITIS 10/19/2010 JOHNY GARNER MD 692.9 Contact Dermatitis And Other Eczema Unspecified Cause 10/19/2010 CHAVIS DO, KISHA K 372.14 OTHER CHRONIC ALLERGIC CONJUNCTIVITIS 10/19/2010 CHAVIS DO, KISHA K 692.9 Contact Dermatitis And Other Eczema Unspecified Cause 10/19/2010 [facility], [place] [facility] 372.14 OTHER CHRONIC ALLERGIC CONJUNCTIVITIS 10/19/2010 [facility], [place] 692.9 Contact Dermatitis And Other Eczema Unspecified Cause 10/19/2010 WHITE DDS, RAFAELA D 372.14 OTHER CHRONIC ALLERGIC CONJUNCTIVITIS 10/19/2010 WHITE DDS, RAFAELA D 692.9 Contact Dermatitis And Other Eczema Unspecified Cause 10/19/2010 JOHNY GARNER MD 372.14 OTHER CHRONIC ALLERGIC CONJUNCTIVITIS 10/19/2010 JOHNY GARNER MD2.9 Contact Dermatitis And Other Eczema Unspecified Cause 10/19/2010 JOHNY GARNER MD 372.14 OTHER CHRONIC ALLERGIC CONJUNCTIVITIS 10/19/2010 JOHNY GARNER MD2.9 Contact Dermatitis And Other Eczema Unspecified Cause 10/19/2010 WHITE DDS, RAFAELA D 372.14 OTHER CHRONIC ALLERGIC CONJUNCTIVITIS 10/19/2010 WHITE DDS, RAFAELA D 692.9 Contact Dermatitis And Other Eczema Unspecified Cause 10/19/2010 JOHNY GARNER MD 372.14 OTHER CHRONIC ALLERGIC CONJUNCTIVITIS 10/19/2010 JOHNY GARNER MD2.9 Contact Dermatitis And Other Eczema Unspecified Cause 10/19/2010 JOHNY GARNER MD 372.14 OTHER CHRONIC ALLERGIC CONJUNCTIVITIS 10/19/2010 JOHNY GARNER MD2.9 Contact Dermatitis And Other Eczema Unspecified Cause 10/19/2010 [facility], [place] 372.14 OTHER CHRONIC ALLERGIC CONJUNCTIVITIS 10/19/2010 [facility] [place] [facility] 692.9 Contact Dermatitis And Other Eczema Unspecified Cause 10/19/2010 JOHNY GARNER MD 372.14 OTHER CHRONIC ALLERGIC CONJUNCTIVITIS 10/19/2010 JOHNY GARNER MD2.9 Contact Dermatitis And Other Eczema Unspecified Cause 10/19/2010 [facility] [place] [facility] 372.14 OTHER CHRONIC ALLERGIC CONJUNCTIVITIS 10/19/2010 [facility] [place] [facility] 692.9 Contact Dermatitis And Other Eczema Unspecified Cause 10/19/2010 [facility], [place] [facility] 372.14 OTHER CHRONIC ALLERGIC CONJUNCTIVITIS 10/19/2010 [facility] [place] 692.9 Contact Dermatitis And Other Eczema Unspecified Cause 10/19/2010 [facility], [place] [facility] 372.14 OTHER CHRONIC ALLERGIC CONJUNCTIVITIS 10/19/2010 [facility] [place] [facility] 692.9 Contact Dermatitis And Other Eczema Unspecified Cause 10/19/2010 JOHNY GARNER MD 372.14 OTHER CHRONIC ALLERGIC CONJUNCTIVITIS 10/19/2010 JOHNY GARNER MD 692.9 Contact Dermatitis And Other Eczema Unspecified Cause 10/19/2010 ESTHER CHAVEZ MD N 372.14 OTHER CHRONIC ALLERGIC CONJUNCTIVITIS 10/19/2010 ESTHER CHAVEZ MD 692.9 Contact Dermatitis And Other Eczema Unspecified Cause 10/19/2010 [facility] [place] [facility] 372.14 OTHER CHRONIC ALLERGIC CONJUNCTIVITIS 10/19/2010 [facility] [place] [facility] 692.9 Contact Dermatitis And Other Eczema Unspecified Cause 10/19/2010 ESTHER CHAVEZ MD N 372.14 OTHER CHRONIC ALLERGIC CONJUNCTIVITIS 10/19/2010 ESTHER CHAVEZ MD N 692.9 Contact Dermatitis And Other Eczema Unspecified Cause 10/19/2010 MURILLO DDS, BYRON 372.14 OTHER CHRONIC ALLERGIC CONJUNCTIVITIS 10/19/2010 MURILLO DDS, [place]RON 692.9 Contact Dermatitis And Other Eczema Unspecified Cause 10/19/2010 ESHTER CHAVEZ MD N 372.14 OTHER CHRONIC ALLERGIC CONJUNCTIVITIS 10/19/2010 ESTHER CHAVEZ MD N 692.9 Contact Dermatitis And Other Eczema Unspecified Cause 10/19/2010 [facility] [place] R 372.14 OTHER CHRONIC ALLERGIC CONJUNCTIVITIS 10/19/2010 [facility] [place] R 692.9 Contact Dermatitis And Other Eczema Unspecified Cause 10/19/2010 ESTHER CHAVEZ MD N 372.14 OTHER CHRONIC ALLERGIC CONJUNCTIVITIS 10/19/2010 ESTHER CHAVEZ MD N 692.9 Contact Dermatitis And Other Eczema Unspecified Cause 10/19/2010 ESTHER CHAVEZ MD N 372.14 OTHER CHRONIC ALLERGIC CONJUNCTIVITIS 10/19/2010 ESTHER CHAVEZ MD N 692.9 Contact Dermatitis And Other Eczema Unspecified Cause 10/19/2010 ESTHER CHAVEZ MD N 372.14 OTHER CHRONIC ALLERGIC CONJUNCTIVITIS 10/19/2010 ESTHER CHAVEZ MD N 692.9 Contact Dermatitis And Other Eczema Unspecified Cause 10/19/2010 ESTHER CHAVEZ MD N 372.14 OTHER CHRONIC ALLERGIC CONJUNCTIVITIS 10/19/2010 ESTHER CHAVEZ MD N 692.9 Contact Dermatitis And Other Eczema Unspecified Cause 10/19/2010 PARI VILLAGRAN 372.14 OTHER CHRONIC ALLERGIC CONJUNCTIVITIS 10/19/2010 PARI VILLAGRAN M 692.9 Contact Dermatitis And Other Eczema Unspecified Cause 10/19/2010 ESTHER CHAVEZ MD N 372.14 OTHER CHRONIC ALLERGIC CONJUNCTIVITIS 10/19/2010 ESTHER CHAVEZ MD N 692.9 Contact Dermatitis And Other Eczema Unspecified Cause 10/19/2010 ESTHER CHAVEZ MD N 372.14 OTHER CHRONIC ALLERGIC CONJUNCTIVITIS 10/19/2010 ESTHER CHAVEZ MD N 692.9 Contact Dermatitis And Other Eczema Unspecified Cause 12/09/2010 Ot 278.01 MORBID OBESITY 12/09/2010 Ot 327.23 OBSTRUCTIVE SLEEP APNEA (ADULT) (PEDIATR 12/09/2010 Ot 327.51 PERIODIC LIMB MOVEMENT DISORDER 12/09/2010 Ot V85.43 BODY MASS INDEX 50.0-59.9, ADULT 01/14/2011 782.0 Disturbance Of Skin Sensation 01/14/2011 JOHNY GARNER MD 782.0 Disturbance Of Skin Sensation 01/14/2011 782.0 Disturbance Of Skin Sensation 01/14/2011 782.0 Disturbance Of Skin Sensation 01/14/2011 JOHNY GARNER MD 782.0 Disturbance Of Skin Sensation 01/14/2011 JENN DONALD LCPC 782.0 Disturbance Of Skin Sensation 01/14/2011 782.0 Disturbance Of Skin Sensation 01/14/2011 782.0 Disturbance Of Skin Sensation 01/14/2011 782.0 Disturbance Of Skin Sensation 01/14/2011 782.0 Disturbance Of Skin Sensation 01/14/2011 782.0 Disturbance Of Skin Sensation 01/14/2011 782.0 Disturbance Of Skin Sensation 01/14/2011 782.0 Disturbance Of Skin Sensation 01/14/2011 KAT AGUILAR MD 782.0 Disturbance Of Skin Sensation 01/14/2011 782.0 Disturbance Of Skin Sensation 01/14/2011 SCOTT [facility]SCS, ADILIA R 782.0 Disturbance Of Skin Sensation 01/14/2011 JOHNY GARNER MD 782.0 Disturbance Of Skin Sensation 01/14/2011 WHITE DDS, RAFAELA D 782.0 Disturbance Of Skin Sensation 01/14/2011 SCOTT [facility]SC[facility], ADILIA R 782.0 Disturbance Of Skin Sensation 01/14/2011 JOHNY GARNER MD 782.0 Disturbance Of Skin Sensation 01/14/2011 KISHA CHAVIS DO 782.0 Disturbance Of Skin Sensation 01/14/2011 SCOTT [facility], ADILIA R 782.0 Disturbance Of Skin Sensation 01/14/2011 WHITE DDS, RAFAELA D 782.0 Disturbance Of Skin Sensation 01/14/2011 JOHNY GARNER MD 782.0 Disturbance Of Skin Sensation 01/14/2011 JOHNY GARNER MD 782.0 Disturbance Of Skin Sensation 01/14/2011 WHITE DDS, RAFAELA D 782.0 Disturbance Of Skin Sensation 01/14/2011 JOHNY GARNER MD 782.0 Disturbance Of Skin Sensation 01/14/2011 JOHNY GARNER MD 782.0 Disturbance Of Skin Sensation 01/14/2011 SCOTT CS, ADILIA R 782.0 Disturbance Of Skin Sensation 01/14/2011 JOHNY GARNER MD 782.0 Disturbance Of Skin Sensation 01/14/2011 SCOTT [facility], ADILIA R 782.0 Disturbance Of Skin Sensation 01/14/2011 SCOTT [facility], ADILIA R 782.0 Disturbance Of Skin Sensation 01/14/2011 SC[facility], ADILIA R 782.0 Disturbance Of Skin Sensation 01/14/2011 JOHNY GARNER MD 782.0 Disturbance Of Skin Sensation 01/14/2011 ESTHER CHAVEZ MD N 782.0 Disturbance Of Skin Sensation 01/14/2011 SCOTT MERCEDEZ, ADILIA R 782.0 Disturbance Of Skin Sensation 01/14/2011 ESTHER CHAVEZ MD N 782.0 Disturbance Of Skin Sensation 01/14/2011 BYRON MURILLO DDS 782.0 Disturbance Of Skin Sensation 01/14/2011 ESTHER CHAVEZ MD N 782.0 Disturbance Of Skin Sensation 01/14/2011 SCOTT [facility], ADILIA R 782.0 Disturbance Of Skin Sensation 01/14/2011 ESTHER CHAVEZ MD N 782.0 Disturbance Of Skin Sensation 01/14/2011 ESTHER CHAVEZ MD N 782.0 Disturbance Of Skin Sensation 01/14/2011 ESTHER CHAVEZ MD N 782.0 Disturbance Of Skin Sensation 01/14/2011 ESTHER CHAVEZ MD N 782.0 Disturbance Of Skin Sensation 01/14/2011 SHANNON SALINAS PARI Vu 782.0 Disturbance Of Skin Sensation 01/14/2011 ESTHER CHAVEZ MD N 782.0 Disturbance Of Skin Sensation 01/14/2011 ESTHER CHAVEZ MD N 782.0 Disturbance Of Skin Sensation 02/10/2011 250.02 DIABETES II UNCONTROLLED (UNCOMPLICATED) 02/10/2011 JOHNY GARNER MD 250.02 Diabetes Ii Uncontrolled (uncomplicated) 02/10/2011 250.02 Diabetes Ii Uncontrolled (uncomplicated) 02/10/2011 250.02 Diabetes Ii Uncontrolled (uncomplicated) 02/10/2011 JOHNY GARNER MD 250.02 Diabetes Ii Uncontrolled (uncomplicated) 02/10/2011 JENN DONALD LCPC 250.02 Diabetes Ii Uncontrolled (uncomplicated) 02/10/2011 250.02 Diabetes Ii Uncontrolled (uncomplicated) 02/10/2011 250.02 Diabetes Ii Uncontrolled (uncomplicated) 02/10/2011 250.02 Diabetes Ii Uncontrolled (uncomplicated) 02/10/2011 250.02 Diabetes Ii Uncontrolled (uncomplicated) 02/10/2011 250.02 Diabetes Ii Uncontrolled (uncomplicated) 02/10/2011 250.02 Diabetes Ii Uncontrolled (uncomplicated) 02/10/2011 250.02 Diabetes Ii Uncontrolled (uncomplicated) 02/10/2011 KAT AGUILAR MD 250.02 DIABETES II UNCONTROLLED (UNCOMPLICATED) 02/10/2011 250.02 Diabetes Ii Uncontrolled (uncomplicated) [facility]i [facility] ([facility]com[facility]) 02/10/2011 JOHNY GARNER MD 250.02 Diabetes Ii Uncontrolled (uncomplicated) 02/10/2011 RAFAELA SHELTON DDS 250.02 Diabetes Ii Uncontrolled (uncomplicated) 02/10/2011 [facility], ADILIA R 250.02 Diabetes Ii Uncontrolled (uncomplicated) 02/10/2011 JOHNY GARNER MD 250.02 Diabetes Ii Uncontrolled (uncomplicated) 02/10/2011 KISHA CHAVIS DO 250.02 Diabetes Ii Uncontrolled (uncomplicated) 02/10/2011 [facility], ADILIA R 250.02 Diabetes Ii Uncontrolled (uncomplicated) 02/10/2011 CAT DDS, RAFAELA Yanez 250.02 Diabetes Ii Uncontrolled (uncomplicated) 02/10/2011 JOHNY GARNER MD 250.02 Diabetes Ii Uncontrolled (uncomplicated) 02/10/2011 JOHNY GARNER MD 250.02 Diabetes Ii Uncontrolled (uncomplicated) 02/10/2011 CAT DDS, RAFAELA Yanez 250.02 Diabetes Ii Uncontrolled (uncomplicated) 02/10/2011 JOHNY GARNER MD 250.02 Diabetes Ii Uncontrolled (uncomplicated) 02/10/2011 JOHNY GARNER MD 250.02 Diabetes Ii Uncontrolled (uncomplicated) 02/10/2011 [facility], ADILIA R 250.02 Diabetes Ii Uncontrolled (uncomplicated) 02/10/2011 JOHNY GARNER MD 250.02 Diabetes Ii Uncontrolled (uncomplicated) 02/10/2011 [facility], ADILIA R 250.02 Diabetes Ii Uncontrolled (uncomplicated) 02/10/2011 [facility], ADILIA R 250.02 Diabetes Ii Uncontrolled (uncomplicated) 02/10/2011 [facility], ADILIA R 250.02 Diabetes Ii Uncontrolled (uncomplicated) 02/10/2011 JOHNY GARNER MD 250.02 Diabetes Ii Uncontrolled (uncomplicated) 02/10/2011 ESTHER CHAVEZ MD 250.02 Diabetes Ii Uncontrolled (uncomplicated) 02/10/2011 [facility], ADILIA R 250.02 Diabetes Ii Uncontrolled (uncomplicated) 02/10/2011 ESTHER CHAVEZ MD 250.02 Diabetes Ii Uncontrolled (uncomplicated) 02/10/2011 CHIDI SINGH, BYRON 250.02 Diabetes Ii Uncontrolled (uncomplicated) 02/10/2011 ESTHER CHAVEZ MD 250.02 Diabetes Ii Uncontrolled (uncomplicated) 02/10/2011 [facility], ADILIA R 250.02 Diabetes Ii Uncontrolled (uncomplicated) 02/10/2011 ESTHER CHAVEZ MD N 250.02 Diabetes Ii Uncontrolled (uncomplicated) 02/10/2011 ESTHER CHAVEZ MD N 250.02 Diabetes Ii Uncontrolled (uncomplicated) 02/10/2011 ESTHER CHAVEZ MD N 250.02 Diabetes Ii Uncontrolled (uncomplicated) 02/10/2011 ESTHER CHAVEZ MD N 250.02 Diabetes Ii Uncontrolled (uncomplicated) 02/10/2011 PARI VILLAGRAN 250.02 Diabetes Ii Uncontrolled (uncomplicated) 02/10/2011 KATHY MD, ESTHER N 250.02 Diabetes Ii Uncontrolled (uncomplicated) 02/10/2011 ESTHER CHAVEZ MD N 250.02 Diabetes Ii Uncontrolled (uncomplicated) 03/11/2011 Ot 305.1 TOBACCO USE DISORDER 03/11/2011 Ot 466.0 ACUTE BRONCHITIS 03/11/2011 Ot 493.90 ASTHMA, UNSPECIFIED 03/11/2011 Ot 786.05 SHORTNESS OF BREATH 03/11/2011 Ot 786.50 CHEST PAIN NOS 03/15/2011 Ot 250.00 DIAB ERIKA WO COMPL, TYPE II OR UNSPEC TY 03/15/2011 Ot 305.1 TOBACCO USE DISORDER 03/15/2011 Ot 401.9 HYPERTENSION NOS 03/15/2011 Ot 490 BRONCHITIS NOS 03/15/2011 Ot 786.05 SHORTNESS OF BREATH 03/15/2011 Ot 786.50 CHEST PAIN NOS 03/15/2011 Ot 786.52 PAINFUL RESPIRATION 03/15/2011 Ot V15.81 HX OF PAST NONCOMPLIANCE 03/15/2011 Ot V58.65 LONG-TERM(CURRENT)USE OF STEROIDS 03/15/2011 Ot V58.69 OTH MED,LT,CURRENT USE 03/16/2011 382.00 Acute Suppurative Otitis Media Without Spontaneous Rupture Of Eardrum 03/16/2011 466.0 Acute Bronchitis 03/16/2011 JOHNY GARNER MD 382.00 Acute Suppurative Otitis Media Without Spontaneous Rupture Of Eardrum 03/16/2011 JOHNY GARNER MD 466.0 Acute Bronchitis 03/16/2011 382.00 Acute Suppurative Otitis Media Without Spontaneous Rupture Of Eardrum 03/16/2011 466.0 Acute Bronchitis 03/16/2011 382.00 Acute Suppurative Otitis Media Without Spontaneous Rupture Of Eardrum 03/16/2011 466.0 Acute Bronchitis 03/16/2011 JOHNY GARNER MD 382.00 Acute Suppurative Otitis Media Without Spontaneous Rupture Of Eardrum 03/16/2011 JOHNY GARNER MD 466.0 Acute Bronchitis 03/16/2011 JENN DONALD LCPC 382.00 Acute Suppurative Otitis Media Without Spontaneous Rupture Of Eardrum 03/16/2011 JENN DONALD LCPC 466.0 Acute Bronchitis 03/16/2011 382.00 Acute Suppurative Otitis Media Without Spontaneous Rupture Of Eardrum 03/16/2011 466.0 Acute Bronchitis 03/16/2011 382.00 Acute Suppurative Otitis Media Without Spontaneous Rupture Of Eardrum 03/16/2011 466.0 Acute Bronchitis 03/16/2011 382.00 Acute Suppurative Otitis Media Without Spontaneous Rupture Of Eardrum 03/16/2011 466.0 Acute Bronchitis 03/16/2011 382.00 Acute Suppurative Otitis Media Without Spontaneous Rupture Of Eardrum 03/16/2011 466.0 Acute Bronchitis 03/16/2011 382.00 Acute Suppurative Otitis Media Without Spontaneous Rupture Of Eardrum 03/16/2011 466.0 Acute Bronchitis 03/16/2011 382.00 Acute Suppurative Otitis Media Without Spontaneous Rupture Of Eardrum 03/16/2011 466.0 Acute Bronchitis 03/16/2011 382.00 Acute Suppurative Otitis Media Without Spontaneous Rupture Of Eardrum 03/16/2011 466.0 Acute Bronchitis 03/16/2011 KAT AGUILAR MD 382.00 Acute Suppurative Otitis Media Without Spontaneous Rupture Of Eardrum 03/16/2011 KAT AGUILAR MD 466.0 Acute Bronchitis 03/16/2011 382.00 Acute Suppurative Otitis Media Without Spontaneous Rupture Of Eardrum 03/16/2011 466.0 Acute Bronchitis 03/16/2011 SCOTT NANCY CHOWDHURYELA R 382.00 Acute Suppurative Otitis Media Without Spontaneous Rupture Of Eardrum 03/16/2011 SCOTT NEWSOME ADILIA R 466.0 Acute Bronchitis 03/16/2011 JOHNY GARNER MD 382.00 Acute Suppurative Otitis Media Without Spontaneous Rupture Of Eardrum 03/16/2011 JOHNY GARNER MD 466.0 Acute Bronchitis 03/16/2011 CAT DDS, RAFAELA D 382.00 Acute Suppurative Otitis Media Without Spontaneous Rupture Of Eardrum 03/16/2011 WHITE DDS, RAFAELA D 466.0 Acute Bronchitis 03/16/2011 SCOTT [place] ADILIA R 382.00 Acute Suppurative Otitis Media Without Spontaneous Rupture Of Eardrum 03/16/2011 SCOTT NEWSOME ADILIA R 466.0 Acute Bronchitis 03/16/2011 JOHNY GARNER MD 382.00 Acute Suppurative Otitis Media Without Spontaneous Rupture Of Eardrum 03/16/2011 JOHNY GARNER MD 466.0 Acute Bronchitis 03/16/2011 KISHA CHAVIS DO 382.00 Acute Suppurative Otitis Media Without Spontaneous Rupture Of Eardrum 03/16/2011 KISHA CHAVIS DO 466.0 Acute Bronchitis 03/16/2011 [facility], ADILIA R 382.00 Acute Suppurative Otitis Media Without Spontaneous Rupture Of Eardrum 03/16/2011 [facility], ADILIA R 466.0 Acute Bronchitis 03/16/2011 WHITE DDS, RAFAELA D 382.00 Acute Suppurative Otitis Media Without Spontaneous Rupture Of Eardrum 03/16/2011 WHITE DDS, RAFAELA D 466.0 Acute Bronchitis 03/16/2011 JOHNY GARNER MD 382.00 Acute Suppurative Otitis Media Without Spontaneous Rupture Of Eardrum 03/16/2011 JOHNY GARNER MD 466.0 Acute Bronchitis 03/16/2011 JOHNY GARNER MD 382.00 Acute Suppurative Otitis Media Without Spontaneous Rupture Of Eardrum 03/16/2011 JOHNY GARNER MD 466.0 Acute Bronchitis 03/16/2011 WHITE DDS, RAFAELA D 382.00 Acute Suppurative Otitis Media Without Spontaneous Rupture Of Eardrum 03/16/2011 WHITE DDS, RAFAELA D 466.0 Acute Bronchitis 03/16/2011 JOHNY GARNER MD 382.00 Acute Suppurative Otitis Media Without Spontaneous Rupture Of Eardrum 03/16/2011 JOHNY GARNER MD 466.0 Acute Bronchitis 03/16/2011 JOHNY GARNER MD 382.00 Acute Suppurative Otitis Media Without Spontaneous Rupture Of Eardrum 03/16/2011 JOHNY GARNER MD 466.0 Acute Bronchitis 03/16/2011 [facility], ADILIA R 382.00 Acute Suppurative Otitis Media Without Spontaneous Rupture Of Eardrum 03/16/2011 [facility], ADILIA R 466.0 Acute Bronchitis 03/16/2011 JOHNY GARNER MD 382.00 Acute Suppurative Otitis Media Without Spontaneous Rupture Of Eardrum 03/16/2011 JONHY GARNER MD 466.0 Acute Bronchitis 03/16/2011 [facility], ADILIA R 382.00 Acute Suppurative Otitis Media Without Spontaneous Rupture Of Eardrum 03/16/2011 [facility], ADILIA R 466.0 Acute Bronchitis 03/16/2011 [facility], ADILIA R 382.00 Acute Suppurative Otitis Media Without Spontaneous Rupture Of Eardrum 03/16/2011 [facility], ADILIA R 466.0 Acute Bronchitis 03/16/2011 [facility], ADILIA R 382.00 Acute Suppurative Otitis Media Without Spontaneous Rupture Of Eardrum 03/16/2011 [facility], ADILIA R 466.0 Acute Bronchitis 03/16/2011 JOHNY GARNER MD 382.00 Acute Suppurative Otitis Media Without Spontaneous Rupture Of Eardrum 03/16/2011 JOHNY GARNER MD 466.0 Acute Bronchitis 03/16/2011 ESTHER CHAVEZ MD 382.00 Acute Suppurative Otitis Media Without Spontaneous Rupture Of Eardrum 03/16/2011 ESTHER CHAVEZ MD 466.0 Acute Bronchitis 03/16/2011 [facility], ADILIA R 382.00 Acute Suppurative Otitis Media Without Spontaneous Rupture Of Eardrum 03/16/2011 [facility], ADILIA R 466.0 Acute Bronchitis 03/16/2011 ESTHER CHAVEZ MD 382.00 Acute Suppurative Otitis Media Without Spontaneous Rupture Of Eardrum 03/16/2011 ESTHER CHAVEZ MD 466.0 Acute Bronchitis 03/16/2011 MURILLO DDS, BYRON 382.00 Acute Suppurative Otitis Media Without Spontaneous Rupture Of Eardrum 03/16/2011 MURILLO DDS, BYRON 466.0 Acute Bronchitis 03/16/2011 ESTHER CHAVEZ MD N 382.00 Acute Suppurative Otitis Media Without Spontaneous Rupture Of Eardrum 03/16/2011 ESTHER CHAVEZ MD 466.0 Acute Bronchitis 03/16/2011 [facility], ADILIA R 382.00 Acute Suppurative Otitis Media Without Spontaneous Rupture Of Eardrum 03/16/2011 [facility], ADILIA R 466.0 Acute Bronchitis 03/16/2011 ESTHER CHAVEZ MD N 382.00 Acute Suppurative Otitis Media Without Spontaneous Rupture Of Eardrum 03/16/2011 ESTHER CHAVEZ MD 466.0 Acute Bronchitis 03/16/2011 ESTHER CHAVEZ MD N 382.00 Acute Suppurative Otitis Media Without Spontaneous Rupture Of Eardrum 03/16/2011 ESTHER CHAVEZ MD 466.0 Acute Bronchitis 03/16/2011 ESTHER CHAVEZ MD N 382.00 Acute Suppurative Otitis Media Without Spontaneous Rupture Of Eardrum 03/16/2011 KATHY MD, ESTHER N 466.0 Acute Bronchitis 03/16/2011 ESTHER CHAVEZ MD N 382.00 Acute Suppurative Otitis Media Without Spontaneous Rupture Of Eardrum 03/16/2011 ESTHER CHAVEZ MD N 466.0 Acute Bronchitis 03/16/2011 PARI VILLAGRAN 382.00 Acute Suppurative Otitis Media Without Spontaneous Rupture Of Eardrum 03/16/2011 PARI VILLAGRAN 466.0 Acute Bronchitis 03/16/2011 ESTHER CHAVEZ MD N 382.00 Acute Suppurative Otitis Media Without Spontaneous Rupture Of Eardrum 03/16/2011 ESTHER CHAVEZ MD N 466.0 Acute Bronchitis 03/16/2011 ESTHER CHAVEZ MD N 382.00 Acute Suppurative Otitis Media Without Spontaneous Rupture Of Eardrum 03/16/2011 ESTHER CHAVEZ MD N 466.0 Acute Bronchitis 06/27/2011 Ot 455.3 EXT HEMORRHOID W/O COMPL 06/27/2011 Ot 569.3 RECTAL ANAL HEMORRHAGE 07/05/2011 569.42 Anal Or Rectal Pain 07/05/2011 JOHNY GARNER MD 569.42 Anal Or Rectal Pain 07/05/2011 569.42 Anal Or Rectal Pain 07/05/2011 569.42 Anal Or Rectal Pain 07/05/2011 JOHNY GARNER MD 569.42 Anal Or Rectal Pain 07/05/2011 JENN DONALD LCPC 569.42 Anal Or Rectal Pain 07/05/2011 569.42 Anal Or Rectal Pain 07/05/2011 569.42 Anal Or Rectal Pain 07/05/2011 569.42 Anal Or Rectal Pain 07/05/2011 569.42 Anal Or Rectal Pain 07/05/2011 569.42 Anal Or Rectal Pain 07/05/2011 569.42 Anal Or Rectal Pain 07/05/2011 569.42 Anal Or Rectal Pain 07/05/2011 KAT AGUILAR MD 569.42 Anal Or Rectal Pain 07/05/2011 569.42 Anal Or Rectal Pain 07/05/2011 SCOTT [facility], ADILIA Montiel 569.42 Anal Or Rectal Pain 07/05/2011 JOHNY GARNER MD 569.42 Anal Or Rectal Pain 07/05/2011 CAT SINGH, RAFAELA Yanez 569.42 Anal Or Rectal Pain 07/05/2011 [facility], ADILIA R 569.42 Anal Or Rectal Pain 07/05/2011 JOHNY GARNER MD 569.42 Anal Or Rectal Pain 07/05/2011 KISHA CHAVIS DO 569.42 Anal Or Rectal Pain 07/05/2011 [facility], ADILIA R 569.42 Anal Or Rectal Pain 07/05/2011 WHITE DDS, RAFAELA Yanez 569.42 Anal Or Rectal Pain 07/05/2011 JOHNY GARNER MD 569.42 Anal Or Rectal Pain 07/05/2011 JOHNY GARNER MD 569.42 Anal Or Rectal Pain 07/05/2011 WHITE DDS, RAFAELA Yanez 569.42 Anal Or Rectal Pain 07/05/2011 JOHNY GARNER MD 569.42 Anal Or Rectal Pain 07/05/2011 JOHNY GARNER MD 569.42 Anal Or Rectal Pain 07/05/2011 [facility], ADILIA R 569.42 Anal Or Rectal Pain 07/05/2011 JOHNY GARNER MD 569.42 Anal Or Rectal Pain 07/05/2011 [facility], ADILIA R 569.42 Anal Or Rectal Pain 07/05/2011 [facility], ADILIA R 569.42 Anal Or Rectal Pain 07/05/2011 [facility], ADILIA R 569.42 Anal Or Rectal Pain 07/05/2011 JOHNY GARNER MD 569.42 Anal Or Rectal Pain 07/05/2011 ESTHER CHAVEZ MD 569.42 Anal Or Rectal Pain 07/05/2011 [facility], ADILIA R 569.42 Anal Or Rectal Pain 07/05/2011 ESTHER CHAVEZ MD N 569.42 Anal Or Rectal Pain 07/05/2011 BYRON MURILLO DDS 569.42 Anal Or Rectal Pain 07/05/2011 ESTHER CHAVEZ MD N 569.42 Anal Or Rectal Pain 07/05/2011 [facility], ADILIA R 569.42 Anal Or Rectal Pain 07/05/2011 ESTHER CHAVEZ MD N 569.42 Anal Or Rectal Pain 07/05/2011 ESTHER CHAVEZ MD N 569.42 Anal Or Rectal Pain 07/05/2011 ESTHER CHAVEZ MD N 569.42 Anal Or Rectal Pain 07/05/2011 KATHY CHING, ESTHER N 569.42 Anal Or Rectal Pain 07/05/2011 SHANNON SALINASPARI M 569.42 Anal Or Rectal Pain 07/05/2011 KATHY CHING, ESTHER N 569.42 Anal Or Rectal Pain 07/05/2011 ESTHER CHAVEZ MD 569.42 Anal Or Rectal Pain 08/04/2011 Ot 717.9 INT DERANGEMENT KNEE NOS 08/04/2011 Ot 719.46 JOINT PAIN-L/LEG 10/04/2011 455.6 HEMORRHOIDS NOS 10/04/2011 569.42 ANAL OR RECTAL PAIN 10/04/2011 578.1 HEMATOCHEZIA 10/04/2011 V16.0 FAMILY HISTORY OF MALIGNANT NEOPLASM OF GASTROINTESTINAL TRACT 10/04/2011 JOHNY GARNER MD 455.6 Hemorrhoids Nos 10/04/2011 JOHNY GARNER MD 569.42 Anal Or Rectal Pain 10/04/2011 JOHNY GARNER MD 578.1 Hematochezia 10/04/2011 JOHNY GARNER MD V16.0 Family History Of Malignant Neoplasm Of Gastrointestinal Tract 10/04/2011 455.6 Hemorrhoids Nos 10/04/2011 569.42 Anal Or Rectal Pain 10/04/2011 578.1 Hematochezia 10/04/2011 V16.0 Family History Of Malignant Neoplasm Of Gastrointestinal Tract 10/04/2011 455.6 Hemorrhoids Nos 10/04/2011 569.42 Anal Or Rectal Pain 10/04/2011 578.1 Hematochezia 10/04/2011 V16.0 Family History Of Malignant Neoplasm Of Gastrointestinal Tract 10/04/2011 JOHNY GARNER MD 455.6 Hemorrhoids Nos 10/04/2011 JOHNY GARNER MD 569.42 Anal Or Rectal Pain 10/04/2011 JOHNY GARNER MD 578.1 Hematochezia 10/04/2011 JOHNY GARNER MD V16.0 Family History Of Malignant Neoplasm Of Gastrointestinal Tract 10/04/2011 JENN DONALD LCPC 455.6 Hemorrhoids Nos 10/04/2011 JENN DONALD LCPC B 569.42 Anal Or Rectal Pain 10/04/2011 JENN DONALD LCPC B 578.1 Hematochezia 10/04/2011 SHABANA MENDOZA, JENN B V16.0 Family History Of Malignant Neoplasm Of Gastrointestinal Tract 10/04/2011 455.6 Hemorrhoids Nos 10/04/2011 569.42 Anal Or Rectal Pain 10/04/2011 578.1 Hematochezia 10/04/2011 V16.0 Family History Of Malignant Neoplasm Of Gastrointestinal Tract 10/04/2011 455.6 Hemorrhoids Nos 10/04/2011 569.42 Anal Or Rectal Pain 10/04/2011 578.1 Hematochezia 10/04/2011 V16.0 Family History Of Malignant Neoplasm Of Gastrointestinal Tract 10/04/2011 455.6 Hemorrhoids Nos 10/04/2011 569.42 Anal Or Rectal Pain 10/04/2011 578.1 Hematochezia 10/04/2011 V16.0 Family History Of Malignant Neoplasm Of Gastrointestinal Tract 10/04/2011 455.6 Hemorrhoids Nos 10/04/2011 569.42 Anal Or Rectal Pain 10/04/2011 578.1 Hematochezia 10/04/2011 V16.0 Family History Of Malignant Neoplasm Of Gastrointestinal Tract 10/04/2011 455.6 Hemorrhoids Nos 10/04/2011 569.42 Anal Or Rectal Pain 10/04/2011 578.1 Hematochezia 10/04/2011 V16.0 Family History Of Malignant Neoplasm Of Gastrointestinal Tract 10/04/2011 455.6 Hemorrhoids Nos 10/04/2011 569.42 Anal Or Rectal Pain 10/04/2011 578.1 Hematochezia 10/04/2011 V16.0 Family History Of Malignant Neoplasm Of Gastrointestinal Tract 10/04/2011 455.6 Hemorrhoids Nos 10/04/2011 569.42 Anal Or Rectal Pain 10/04/2011 578.1 Hematochezia 10/04/2011 V16.0 Family History Of Malignant Neoplasm Of Gastrointestinal Tract 10/04/2011 JEFF CHING, KAT 455.6 HEMORRHOIDS NOS 10/04/2011 JEFF CHING, KAT 569.42 ANAL OR RECTAL PAIN 10/04/2011 JEFF CHING, KAT 578.1 HEMATOCHEZIA 10/04/2011 KAT AGUILAR MD V16.0 FAMILY HISTORY OF MALIGNANT NEOPLASM OF GASTROINTESTINAL TRACT 10/04/2011 455.6 Hemorrhoids Nos 10/04/2011 569.42 Anal Or Rectal Pain 10/04/2011 578.1 Hematochezia 10/04/2011 V16.0 Family History Of Malignant Neoplasm Of Gastrointestinal Tract 10/04/2011 [facility], ADILIA R 455.6 Hemorrhoids Nos 10/04/2011 [facility], ADILIA R 569.42 [facility] V16.0 Family History Of Malignant Neoplasm Of Gastrointestinal Tract 10/04/2011 JOHNY GARNER MD 455.6 Hemorrhoids Nos 10/04/2011 JOHNY GARNER MD 569.42 Anal Or Rectal Pain 10/04/2011 JOHNY GARNER MD 578.1 Hematochezia 10/04/2011 JOHNY GARNER MD V16.0 Family History Of Malignant Neoplasm Of Gastrointestinal Tract 10/04/2011 WHITE DDS, RAFAELA D 455.6 Hemorrhoids Nos 10/04/2011 WHITE DDS, RAFAELA D 569.42 Anal Or Rectal Pain 10/04/2011 WHITE DDS, RAFAELA D 578.1 Hematochezia 10/04/2011 WHITE DDS, RAFAELA D V16.0 Family History Of Malignant Neoplasm Of Gastrointestinal Tract [facility]04[facility] 455.6 [facility] Nos [facility]/04[facility] 569.42 Anal Or Rectal Pain 10/04/2011 [facility], ADILIA R 578.1 Hematochezia 10/04/2011 [facility], ADILIA R V16.0 Family History Of Malignant Neoplasm Of Gastrointestinal Tract 10/04/2011 JOHNY GARNER MD 455.6 Hemorrhoids Nos 10/04/2011 JOHNY GARNER MD 569.42 Anal Or Rectal Pain 10/04/2011 JOHNY GARNER MD 578.1 Hematochezia 10/04/2011 JOHNY GARNER MD V16.0 Family History Of Malignant Neoplasm Of Gastrointestinal Tract 10/04/2011 KISHA CHAVIS DO 455.6 Hemorrhoids Nos 10/04/2011 KISHA CHAVIS DO K 569.42 Anal Or Rectal Pain 10/04/2011 KISHA CHAVIS DO K 578.1 Hematochezia 10/04/2011 KISHA CHAVIS DO V16.0 Family History Of Malignant Neoplasm Of Gastrointestinal Tract 10/04/2011 [facility], ADILIA R 455.6 Hemorrhoids Nos 10/04/2011 [facility], ADILIA R 569.42 Anal Or Rectal Pain 10/04/2011 [facility], ADILIA R 578.1 Hematochezia 10/04/2011 [facility], ADILIA R V16.0 Family History Of Malignant Neoplasm Of Gastrointestinal Tract 10/04/2011 WHITE DDS, RAFAELA D 455.6 Hemorrhoids Nos 10/04/2011 WHITE DDS, RAFAELA D 569.42 Anal Or Rectal Pain 10/04/2011 WHITE DDS, RAFAELA D 578.1 Hematochezia 10/04/2011 WHITE DDS, RAFAELA D V16.0 Family History Of Malignant Neoplasm Of Gastrointestinal Tract 10/04/2011 JOHNY GARNER MD 455.6 Hemorrhoids Nos 10/04/2011 JOHNY GARNER MD 569.42 Anal Or Rectal Pain 10/04/2011 JOHNY GARNER MD 578.1 Hematochezia 10/04/2011 JOHNY GARNER MD V16.0 Family History Of Malignant Neoplasm Of Gastrointestinal Tract 10/04/2011 JOHNY GARNER MD 455.6 Hemorrhoids Nos 10/04/2011 JOHNY GARNER MD 569.42 Anal Or Rectal Pain 10/04/2011 JOHNY GARNER MD 578.1 Hematochezia 10/04/2011 JOHNY GARNER MD V16.0 Family History Of Malignant Neoplasm Of Gastrointestinal Tract 10/04/2011 WHITE DDS, RAFAELA D 455.6 Hemorrhoids Nos 10/04/2011 WHITE DDS, RAFAELA D 569.42 Anal Or Rectal Pain 10/04/2011 WHITE DDS, RAFAELA D 578.1 Hematochezia 10/04/2011 WHITE DDS, RAFAELA D V16.0 Family History Of Malignant Neoplasm Of Gastrointestinal Tract 10/04/2011 JOHNY GARNER MD 455.6 Hemorrhoids Nos 10/04/2011 JOHNY GARNER MD 569.42 Anal Or Rectal Pain 10/04/2011 JOHNY GARNER MD 578.1 Hematochezia 10/04/2011 JOHNY GARNER MD V16.0 Family History Of Malignant Neoplasm Of Gastrointestinal Tract 10/04/2011 JOHNY GARNER MD.6 Hemorrhoids Nos 10/04/2011 JOHNY GARNER MD 569.42 Anal Or Rectal Pain 10/04/2011 JOHNY GARNER MD 578.1 Hematochezia 10/04/2011 JOHNY GARNER MD V16.0 Family History Of Malignant Neoplasm Of Gastrointestinal Tract 10/04/2011 SCOTT LSCS, ADILIA R 455.6 Hemorrhoids Nos 10/04/2011 SCOTT LSCS, ADILIA R 569.42 Anal Or Rectal Pain 10/04/2011 SCOTT LSCS, ADILIA R 578.1 Hematochezia 10/04/2011 SCOTT LSCS, ADILIA R V16.0 Family History Of Malignant Neoplasm Of Gastrointestinal Tract 10/04/2011 JOHNY GARNER MD.6 Hemorrhoids Nos 10/04/2011 JOHNY GARNER MD 569.42 Anal Or Rectal Pain 10/04/2011 JOHNY GARNER MD 578.1 Hematochezia 10/04/2011 JOHNY GARNER MD V16.0 Family History Of Malignant Neoplasm Of Gastrointestinal Tract 10/04/2011 SCOTT LSCS, ADILIA R 455.6 Hemorrhoids Nos 10/04/2011 SCOTT LSCS, ADILIA R 569.42 Anal Or Rectal Pain 10/04/2011 SCOTT LSCS, ADILIA R 578.1 Hematochezia 10/04/2011 SCOTT LSCS, ADILIA R V16.0 Family History Of Malignant Neoplasm Of Gastrointestinal Tract 10/04/2011 SCOTT LSCS, ADILIA R 455.6 Hemorrhoids Nos 10/04/2011 SCOTT LSCS, ADILIA R 569.42 Anal Or Rectal Pain 10/04/2011 [facility], ADILIA R 578.1 Hematochezia 10/04/2011 [facility], [facility] R V16.0 Family History Of Malignant Neoplasm Of Gastrointestinal Tract 10/04/2011 [facility], ADILIA R 455.6 Hemorrhoids Nos 10/04/2011 [facility], AD[facility]IA R 569.42 Anal Or Rectal Pain 10/04/2011 [facility], ADILIA R 578.1 Hematochezia 10/04/2011 [facility], [facility] R V16.0 Family History Of Malignant Neoplasm Of Gastrointestinal Tract 10/04/2011 JOHNY GARNER MD 455.6 Hemorrhoids Nos 10/04/2011 JOHNY GARNER MD 569.42 Anal Or Rectal Pain 10/04/2011 JOHNY GARNER MD 578.1 Hematochezia 10/04/2011 JOHNY GARNER MD V16.0 Family History Of Malignant Neoplasm Of Gastrointestinal Tract 10/04/2011 ESTHER CHAVEZ MD 455.6 Hemorrhoids Nos 10/04/2011 ESTHER CHAVEZ MD 569.42 Anal Or Rectal Pain 10/04/2011 ESTHER CHAVEZ MD 578.1 Hematochezia 10/04/2011 ESTHER CHAVEZ MD V16.0 Family History Of Malignant Neoplasm Of Gastrointestinal Tract 10/04/2011 [facility], [facility] R 455.6 Hemorrhoids Nos 10/04/2011 [facility], [facility]ILIA R 569.42 Anal Or Rectal Pain 10/04/2011 [facility], [facility] R 578.1 Hematochezia 10/04/2011 [facility], [facility] R V16.0 Family History Of Malignant Neoplasm Of Gastrointestinal Tract 10/04/2011 ESTHER CHAVEZ MD 455.6 Hemorrhoids Nos 10/04/2011 ESTHER CHAVEZ MD N 569.42 Anal Or Rectal Pain 10/04/2011 ESTHER CHAVEZ MD N 578.1 Hematochezia 10/04/2011 ESTHER CHAVEZ MD N V16.0 Family History Of Malignant Neoplasm Of Gastrointestinal Tract 10/04/2011 [facility] DDSBYRON 455.6 Hemorrhoids Nos 10/04/2011 [facility] D[facility], BYRON 569.42 Anal Or Rectal Pain 10/04/2011 [facility], [place]RON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 09/25/2015 ESTHER CHAVEZ MD Ot 327.23 OBSTRUCTIVE SLEEP APNEA (ADULT) (PEDIATR 09/25/2015 ESTHER CHAVEZ MD, Ot I73.9 PERIPHERAL VASCULAR DISEASE, UNSPECIFIED 09/25/2015 ESTHER CHAVEZ MD, Ot R09.89 OTH SYMPTOMS AND SIGNS INVOLVING THE CIR 09/25/2015 ESTHER CHAVEZ MD, Ot R20.2 PARESTHESIA OF SKIN 10/06/2015 ESTHER CHAVEZ MD, Ot S61.210A LACERATION W/O FB OF R IDX FNGR W/O LEXX 10/06/2015 ESTHER CHAVEZ MD, Ot W26.0XXA CONTACT WITH KNIFE, INITIAL ENCOUNTER 10/06/2015 ESTHER CHAVEZ MD Ot Y92.[address] IN SINGLE-FAMILY (PRIVATE) HO 10/06/2015 ESTHER CHAVEZ MD Ot Y99.8 OTHER EXTERNAL CAUSE STATUS 10/31/2015 ESTHER CHAVEZ MD Ot S61.210A LACERATION W/O FB OF R IDX FNGR W/O LEXX 10/31/2015 ESTHER CHAVEZ MD, Ot W26.0XXA CONTACT WITH KNIFE, INITIAL ENCOUNTER 10/31/2015 ESTHER CHAVEZ MD Ot Y92.[address] IN SINGLE-FAMILY (PRIVATE) HO 10/31/2015 ESTHER CHAVEZ MD Ot Y99.8 OTHER EXTERNAL CAUSE STATUS 04/08/2016 MARY TIM MD Ot E11.9 TYPE 2 DIABETES MELLITUS WITHOUT COMPLIC 04/08/2016 MARY TIM MD Ot E66.9 OBESITY, UNSPECIFIED 04/08/2016 MARY TIM MD Ot F17.210 NICOTINE DEPENDENCE, CIGARETTES, UNCOMPL 04/08/2016 MARY TIM MD Ot S93.401A SPRAIN OF UNSPECIFIED LIGAMENT OF RIGHT 04/08/2016 MARY TIM MD, Ot S99.911A UNSPECIFIED INJURY OF RIGHT ANKLE, INITI 04/08/2016 MARY TIM MD Ot X58.XXXA EXPOSURE TO OTHER SPECIFIED FACTORS, INI 04/08/2016 MARY TIM MD Ot Y92.[address] IN [facility] NON-INSTITUT (PRIVATE 04/08/2016 MARY TIM MD Ot Y99.8 OTHER EXTERNAL CAUSE STATUS 04/08/2016 MARY TIM MD Ot Z79.84 ALF (CURRENT) USE OF ORAL HYPOGLYC 04/08/2016 MARY TIM MD Ot Z79.899 OTHER FINANCIAL PROCESSING CLERK (CURRENT) DRUG THERAPY 04/08/2016 MARY TIM MD Ot Z98.84 BARIATRIC SURGERY STATUS 04/09/2016 MARY TIM MD Ot E11.9 TYPE 2 DIABETES MELLITUS WITHOUT COMPLIC 04/09/2016 MARY TIM MD Ot E66.9 OBESITY, UNSPECIFIED 04/09/2016 MARY TIM MD Ot F17.210 NICOTINE DEPENDENCE, CIGARETTES, UNCOMPL 04/09/2016 MARY TIM MD Ot S93.401A SPRAIN OF UNSPECIFIED LIGAMENT OF RIGHT 04/09/2016 MARY TIM MD Ot S99.911A UNSPECIFIED INJURY OF RIGHT ANKLE, INITI 04/09/2016 MARY TIM MD Ot X58.XXXA EXPOSURE TO OTHER SPECIFIED FACTORS, INI 04/09/2016 MARY TIM MD Ot Y92.[address] IN [facility] NON-INSTITUT (PRIVATE 04/09/2016 MARY TIM MD Ot Y99.8 OTHER EXTERNAL CAUSE STATUS 04/09/2016 MARY TIM MD Ot Z79.84 FINANCIAL PROCESSING CLERK (CURRENT) USE OF ORAL HYPOGLYC 04/09/2016 MARY TIM MD Ot Z79.899 OTHER ALF (CURRENT) DRUG THERAPY 04/09/2016 MARY TIM MD Ot Z98.84 BARIATRIC SURGERY STATUS 05/05/2016 ESTHER CHAVEZ MD Ot M79.671 PAIN IN RIGHT FOOT 05/06/2016 ESTHER CHAVEZ MD Ot M79.671 PAIN IN RIGHT FOOT 05/25/2016 ESTHER CHAVEZ MD Ot M79.671 PAIN IN RIGHT FOOT 06/01/2016 ESTHER CHAVEZ MD Ot M79.671 PAIN IN RIGHT FOOT 11/10/2017 SAL KRUSE MD Ot 278.01 MORBID OBESITY 11/10/2017 SAL KRUSE MD Ot V72.83 EXAM PRE-OPERATIVE NEC 11/10/2017 ARPAN TORRES MD Ot 272.4 HYPERLIPIDEMIA NEC/NOS 11/10/2017 ARPAN TORRES MD Ot 305.1 TOBACCO USE DISORDER 11/10/2017 ARPAN TORRES MD Ot 327.23 OBSTRUCTIVE SLEEP APNEA (ADULT) (PEDIATR 11/10/2017 ARPAN TORRES MD Ot 397.0 TRICUSPID VALVE DISEASE 11/10/2017 ARPAN TORRES MD Ot 401.9 HYPERTENSION NOS 11/10/2017 ARPAN TORRES MD Ot 424.0 MITRAL VALVE DISORDER 11/10/2017 ARPAN TORRES MD Ot 786.50 CHEST PAIN NOS 11/10/2017 CADY WORKMAN MD Ot V72.84 EXAM PRE-OPERATIVE NOS 11/10/2017 ESTHER CHAVEZ MD Ot 327.23 OBSTRUCTIVE SLEEP APNEA (ADULT) (PEDIATR 11/10/2017 ESTHER CHAVEZ MD Ot I73.9 PERIPHERAL VASCULAR DISEASE, UNSPECIFIED 11/10/2017 ESTHER CHAVEZ MD Ot R09.89 OTH SYMPTOMS AND SIGNS INVOLVING THE CIR 11/10/2017 ESTHER CHAVEZ MD Ot R20.2 PARESTHESIA OF SKIN 11/10/2017 ESTHER CHAVEZ MD Ot M79.671 PAIN IN RIGHT FOOT 11/10/2017 ESTHER CHAVEZ MD Ot R09.89 OTH SYMPTOMS AND SIGNS INVOLVING THE CIR 11/11/2017 ESTHER CHAVEZ MD Ot R09.89 OTH SYMPTOMS AND SIGNS INVOLVING THE CIR 11/30/2017 ESTHER CHAVEZ MD Ot R09.89 OTH SYMPTOMS AND SIGNS INVOLVING THE CIR 12/05/2017 ESTHER CHAVEZ MD Ot R09.89 OTH SYMPTOMS AND SIGNS INVOLVING THE CIR 12/07/2017 SAL KRUSE MD Ot 278.01 MORBID OBESITY 12/07/2017 SAL KRUSE MD Ot V72.83 EXAM PRE-OPERATIVE NEC 12/07/2017 ARPAN TORRES MD Ot 272.4 HYPERLIPIDEMIA NEC/NOS 12/07/2017 ARPAN TORRES MD Ot 305.1 TOBACCO USE DISORDER 12/07/2017 ARPAN TORRES MD Ot 327.23 OBSTRUCTIVE SLEEP APNEA (ADULT) (PEDIATR 12/07/2017 ARPAN TORRES MD Ot 397.0 TRICUSPID VALVE DISEASE 12/07/2017 ARPAN TORRES MD Ot 401.9 HYPERTENSION NOS 12/07/2017 ARPAN TORRES MD Ot 424.0 MITRAL VALVE DISORDER 12/07/2017 ARPAN TORRES MD Ot 786.50 CHEST PAIN NOS 12/07/2017 JACINTA CHING, CADY Vu Ot V72.84 EXAM PRE-OPERATIVE NOS 12/07/2017 ESTHER CHAVEZ MD Ot 327.23 OBSTRUCTIVE SLEEP APNEA (ADULT) (PEDIATR 12/07/2017 ESTHER CHAVEZ MD Ot I73.9 PERIPHERAL VASCULAR DISEASE, UNSPECIFIED 12/07/2017 ESTHER CHAVEZ MD Ot R09.89 OTH SYMPTOMS AND SIGNS INVOLVING THE CIR 12/07/2017 ESTHER CHAVEZ MD Ot R20.2 PARESTHESIA OF SKIN 12/07/2017 ESTHER CHAVEZ MD Ot M79.671 PAIN IN RIGHT FOOT 12/07/2017 ESTHER CHAVEZ MD Ot R09.89 OTH SYMPTOMS AND SIGNS INVOLVING THE CIR 12/09/2017 ARPAN TORRES MD Ot R07.89 OTHER CHEST PAIN 12/13/2017 ARPAN TORRES MD Ot R07.89 OTHER CHEST PAIN 12/22/2017 SAL KRUSE MD Ot 278.01 MORBID OBESITY 12/22/2017 SAL KRUSE MD Ot V72.83 EXAM PRE-OPERATIVE NEC 12/22/2017 ARPAN TORRES MD Ot 272.4 HYPERLIPIDEMIA NEC/NOS 12/22/2017 ARPAN TORRES MD Ot 305.1 TOBACCO USE DISORDER 12/22/2017 ARPAN TORRES MD Ot 327.23 OBSTRUCTIVE SLEEP APNEA (ADULT) (PEDIATR 12/22/2017 ARPAN TORRES MD Ot 397.0 TRICUSPID VALVE DISEASE 12/22/2017 ARPAN TORRES MD Ot 401.9 HYPERTENSION NOS 12/22/2017 ARPAN TORRES MD Ot 424.0 MITRAL VALVE DISORDER 12/22/2017 ARPAN TORRES MD Ot 786.50 CHEST PAIN NOS 12/22/2017 JACINTA CHING, CADY Vu Ot V72.84 EXAM PRE-OPERATIVE NOS 12/22/2017 ESTHER CHAVEZ MD Ot 327.23 OBSTRUCTIVE SLEEP APNEA (ADULT) (PEDIATR 12/22/2017 ESTHER CHAVEZ MD Ot I73.9 PERIPHERAL VASCULAR DISEASE, UNSPECIFIED 12/22/2017 ESTHER CHAVEZ MD Ot R09.89 OTH SYMPTOMS AND SIGNS INVOLVING THE CIR 12/22/2017 ESTHER CHAVEZ MD Ot R20.2 PARESTHESIA OF SKIN 12/22/2017 ESTHER CHAVEZ MD Ot M79.671 PAIN IN RIGHT FOOT 12/22/2017 ESTHER CHAVEZ MD Ot R09.89 OTH SYMPTOMS AND SIGNS INVOLVING THE CIR 12/22/2017 ARPAN TORRES MD Ot R07.89 OTHER CHEST PAIN 12/23/2017 BUCK DENTON Ot M17.12 UNILATERAL PRIMARY OSTEOARTHRITIS, LEFT 12/23/2017 BUCK DENTON Ot S89.92XA UNSPECIFIED INJURY OF LEFT LOWER LEG, IN 12/27/2017 ARPAN TORRES MD Ot R07.89 OTHER CHEST PAIN 12/28/2017 SAL KRUSE MD Ot 278.01 MORBID OBESITY 12/28/2017 SAL KRUSE MD Ot V72.83 EXAM PRE-OPERATIVE NEC 12/28/2017 ARPAN TORRES MD Ot 272.4 HYPERLIPIDEMIA NEC/NOS 12/28/2017 ARPAN TORRES MD Ot 305.1 TOBACCO USE DISORDER 12/28/2017 ARPAN TORRES MD Ot 327.23 OBSTRUCTIVE SLEEP APNEA (ADULT) (PEDIATR 12/28/2017 ARPAN TORRES MD Ot 397.0 TRICUSPID VALVE DISEASE 12/28/2017 ARPAN TORRES MD Ot 401.9 HYPERTENSION NOS 12/28/2017 ARPAN TORRES MD Ot 424.0 MITRAL VALVE DISORDER 12/28/2017 ARPAN TORRES MD Ot 786.50 CHEST PAIN NOS 12/28/2017 JACINTA CHING, CADY M Ot V72.84 EXAM PRE-OPERATIVE NOS 12/28/2017 ESTHER CHAVEZ MD Ot 327.23 OBSTRUCTIVE SLEEP APNEA (ADULT) (PEDIATR 12/28/2017 ESTHER CHAVEZ MD Ot I73.9 PERIPHERAL VASCULAR DISEASE, UNSPECIFIED 12/28/2017 ESTHER CHAVEZ MD Ot R09.89 OTH SYMPTOMS AND SIGNS INVOLVING THE CIR 12/28/2017 ESTHER CHAVEZ MD Ot R20.2 PARESTHESIA OF SKIN 12/28/2017 ESTHER CHAVEZ MD Ot M79.671 PAIN IN RIGHT FOOT 12/28/2017 ESTHER CHAVEZ MD Ot R09.89 OTH SYMPTOMS AND SIGNS INVOLVING THE CIR 12/28/2017 ARPAN TORRES MD Ot R07.89 OTHER CHEST PAIN 12/28/2017 BUCK DENTON Ot M17.12 UNILATERAL PRIMARY OSTEOARTHRITIS, LEFT 12/28/2017 BUCK DENTON Ot S89.92XA UNSPECIFIED INJURY OF LEFT LOWER LEG, IN 12/30/2017 SAL KRUSE MD Ot 278.01 MORBID OBESITY 12/30/2017 SAL KRUSE MD Ot V72.83 EXAM PRE-OPERATIVE NEC 12/30/2017 ARPAN TORRES MD Ot 272.4 HYPERLIPIDEMIA NEC/NOS 12/30/2017 ARPAN TORRES MD Ot 305.1 TOBACCO USE DISORDER 12/30/2017 ARPAN TORRES MD Ot 327.23 OBSTRUCTIVE SLEEP APNEA (ADULT) (PEDIATR 12/30/2017 ARPAN TORRES MD Ot 397.0 TRICUSPID VALVE DISEASE 12/30/2017 ARPAN TORRES MD Ot 401.9 HYPERTENSION NOS 12/30/2017 ARPAN TORRES MD Ot 424.0 MITRAL VALVE DISORDER 12/30/2017 ARPAN TORRES MD Ot 786.50 CHEST PAIN NOS 12/30/2017 CADY WORKMAN MD Ot V72.84 EXAM PRE-OPERATIVE NOS 12/30/2017 ESTHER CHAVEZ MD Ot 327.23 OBSTRUCTIVE SLEEP APNEA (ADULT) (PEDIATR 12/30/2017 ESTHER CHAVEZ MD Ot I73.9 PERIPHERAL VASCULAR DISEASE, UNSPECIFIED 12/30/2017 ESTHER CHAVEZ MD Ot R09.89 OTH SYMPTOMS AND SIGNS INVOLVING THE CIR 12/30/2017 ESTHER CHAVEZ MD Ot R20.2 PARESTHESIA OF SKIN 12/30/2017 ESTHER CHAVEZ MD Ot M79.671 PAIN IN RIGHT FOOT 12/30/2017 ESTHER CHAVEZ MD Ot R09.89 OTH SYMPTOMS AND SIGNS INVOLVING THE CIR 12/30/2017 ARPAN TORRES MD Ot R07.89 OTHER CHEST PAIN 12/30/2017 BUCK DENTON Ot M17.12 UNILATERAL PRIMARY OSTEOARTHRITIS, LEFT 12/30/2017 BUCK DENTON Ot S89.92XA UNSPECIFIED INJURY OF LEFT LOWER LEG, IN 01/02/2018 ARPAN TORRES MD Ot I07.1 RHEUMATIC TRICUSPID INSUFFICIENCY 01/02/2018 ARPAN TORRES MD Ot R07.89 OTHER CHEST PAIN 01/02/2018 ARPAN TORRES MD Ot R07.89 OTHER CHEST PAIN 01/03/2018 SAL KRUSE MD Ot 278.01 MORBID OBESITY 01/03/2018 SAL KRUSE MD Ot V72.83 EXAM PRE-OPERATIVE NEC 01/03/2018 ARPAN TORRES MD Ot 272.4 HYPERLIPIDEMIA NEC/NOS 01/03/2018 ARPAN TORRES MD Ot 305.1 TOBACCO USE DISORDER 01/03/2018 ARPAN TORRES MD Ot 327.23 OBSTRUCTIVE SLEEP APNEA (ADULT) (PEDIATR 01/03/2018 ARPAN TORRES MD Ot 397.0 TRICUSPID VALVE DISEASE 01/03/2018 ARPAN TORRES MD Ot 401.9 HYPERTENSION NOS 01/03/2018 ARPAN TORRES MD Ot 424.0 MITRAL VALVE DISORDER 01/03/2018 ARPAN TORRES MD Ot 786.50 CHEST PAIN NOS 01/03/2018 JACINTA CHING, CADY Vu Ot V72.84 EXAM PRE-OPERATIVE NOS 01/03/2018 ESTHER CHAVEZ MD Ot 327.23 OBSTRUCTIVE SLEEP APNEA (ADULT) (PEDIATR 01/03/2018 ESTHER CHAVEZ MD Ot I73.9 PERIPHERAL VASCULAR DISEASE, UNSPECIFIED 01/03/2018 ESTHER CHAVEZ MD Ot R09.89 OTH SYMPTOMS AND SIGNS INVOLVING THE CIR 01/03/2018 ESTHER CHAVEZ MD Ot R20.2 PARESTHESIA OF SKIN 01/03/2018 ESTHER CHAVEZ MD Ot M79.671 PAIN IN RIGHT FOOT 01/03/2018 ESTHER CHAVEZ MD Ot R09.89 OTH SYMPTOMS AND SIGNS INVOLVING THE CIR 01/03/2018 ARPAN TORRES MD Ot I07.1 RHEUMATIC TRICUSPID INSUFFICIENCY 01/03/2018 ARPAN TORRES MD Ot R07.89 OTHER CHEST PAIN 01/03/2018 ARPAN TORRES MD Ot R07.89 OTHER CHEST PAIN 01/03/2018 BUCK DENTON Ot M17.12 UNILATERAL PRIMARY OSTEOARTHRITIS, LEFT 01/03/2018 BUCK DENTON Ot S89.92XA UNSPECIFIED INJURY OF LEFT LOWER LEG, IN 01/09/2018 ESTHER CHAVEZ MD, Ot M17.12 UNILATERAL PRIMARY OSTEOARTHRITIS, LEFT 01/09/2018 ESTHER CHAVEZ MD, Ot 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] 01/09/2018 ESTHER CHAVEZ MD, Ot S83.232A COMPLEX TEAR OF MEDIAL MENSC, CURRENT IN 01/09/2018 ESTHER CHAVEZ MD Ot X50.1XXA OVEREXERTION FROM PROLONGED STATIC OR AW 01/11/2018 BUCK DENTON Ot M17.12 UNILATERAL PRIMARY OSTEOARTHRITIS, LEFT 01/11/2018 BUCK DENTON Ot S89.92XA UNSPECIFIED INJURY OF LEFT LOWER LEG, IN 01/16/2018 BUCK DENTON Ot M17.12 UNILATERAL PRIMARY OSTEOARTHRITIS, LEFT 01/16/2018 BUCK DENTON Ot S89.92XA UNSPECIFIED INJURY OF LEFT LOWER LEG, IN 01/19/2018 ARPAN TORRES MD Ot I07.1 RHEUMATIC TRICUSPID INSUFFICIENCY 01/19/2018 ARPAN TORRES MD Ot R07.89 OTHER CHEST PAIN 01/24/2018 ARPAN TORRES MD Ot I07.1 RHEUMATIC TRICUSPID INSUFFICIENCY 01/24/2018 ARPAN TORRES MD Ot R07.89 OTHER CHEST PAIN 01/26/2018 PATEL QUIROGA DO Ot Z01.818 ENCOUNTER FOR OTHER PREPROCEDURAL EXAMIN 01/31/2018 PATEL QUIROGA DO Ot E11.43 TYPE 2 DIABETES W DIABETIC AUTONOMIC (PO 01/31/2018 PATEL QUIROGA DO Ot E66.01 MORBID (SEVERE) OBESITY DUE TO EXCESS CA 01/31/2018 PATEL QUIROGA DO Ot F17.210 NICOTINE DEPENDENCE, CIGARETTES, UNCOMPL 01/31/2018 PATEL QUIROGA DO Ot G47.33 OBSTRUCTIVE SLEEP APNEA (ADULT) (PEDIATR 01/31/2018 PATEL QUIROGA DO Ot I11.0 HYPERTENSIVE HEART DISEASE WITH HEART FA 01/31/2018 PATEL QUIROGA DO Ot I20.9 ANGINA PECTORIS, UNSPECIFIED 01/31/2018 PATEL QUIROGA DO Ot I50.9 HEART FAILURE, UNSPECIFIED 01/31/2018 PATEL QUIROGA DO Ot J45.909 UNSPECIFIED ASTHMA, UNCOMPLICATED 01/31/2018 PATEL QUIROGA DO Ot K21.9 GASTRO-ESOPHAGEAL REFLUX DISEASE WITHOUT 01/31/2018 PATEL QUIROGA DO Ot K29.70 GASTRITIS, UNSPECIFIED, WITHOUT BLEEDING 01/31/2018 PATEL QUIROGA DO Ot K44.9 DIAPHRAGMATIC HERNIA WITHOUT OBSTRUCTION 01/31/2018 PATEL QUIROGA DO Ot Z68.43 BODY MASS INDEX (BMI) 50-59.9, ADULT 01/31/2018 PATEL QUIROGA DO Ot Z79.84 FINANCIAL PROCESSING CLERK (CURRENT) USE OF ORAL HYPOGLYC 01/31/2018 PATEL QUIROGA DO Ot Z79.899 OTHER ALF (CURRENT) DRUG THERAPY 01/31/2018 PATEL QUIROGA DO Ot Z86.718 PERSONAL HISTORY OF OTHER VENOUS THROMBO 01/31/2018 PATEL QUIROGA DO Ot Z98.84 BARIATRIC SURGERY STATUS 01/31/2018 ESTHER CHAVEZ MD Ot M17.12 UNILATERAL PRIMARY OSTEOARTHRITIS, LEFT 01/31/2018 ESTHER CHAVEZ MD Ot 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] 01/31/2018 ESTHER CHAVEZ MD Ot S83.232A COMPLEX TEAR OF MEDIAL MENSC, CURRENT IN 01/31/2018 ESTHER CHAVEZ MD Ot X50.1XXA OVEREXERTION FROM PROLONGED STATIC OR AW 02/01/2018 PATEL QUIROGA DO Ot E11.43 TYPE 2 DIABETES W DIABETIC AUTONOMIC (PO 02/01/2018 PATEL QUIROGA DO Ot E66.01 MORBID (SEVERE) OBESITY DUE TO EXCESS CA 02/01/2018 PATEL QUIROGA DO Ot F17.210 NICOTINE DEPENDENCE, CIGARETTES, UNCOMPL 02/01/2018 PATEL QUIROGA DO Ot G47.33 OBSTRUCTIVE SLEEP APNEA (ADULT) (PEDIATR 02/01/2018 PATEL QUIROGA DO Ot I11.0 HYPERTENSIVE HEART DISEASE WITH HEART FA 02/01/2018 PATEL QUIROGA DO Ot I20.9 ANGINA PECTORIS, UNSPECIFIED 02/01/2018 PATEL QUIROGA DO Ot I50.9 HEART FAILURE, UNSPECIFIED 02/01/2018 PATEL QUIROGA DO Ot J45.909 UNSPECIFIED ASTHMA, UNCOMPLICATED 02/01/2018 PATEL QUIROGA DO Ot K21.9 GASTRO-ESOPHAGEAL REFLUX DISEASE WITHOUT 02/01/2018 PATEL QUIROGA DO Ot K29.70 GASTRITIS, UNSPECIFIED, WITHOUT BLEEDING 02/01/2018 PATEL QUIROGA DO Ot K44.9 DIAPHRAGMATIC HERNIA WITHOUT OBSTRUCTION 02/01/2018 PATEL QUIROGA DO Ot Z68.43 BODY MASS INDEX (BMI) 50-59.9, ADULT 02/01/2018 PATEL QUIROGA DO Ot Z79.84 ALF (CURRENT) USE OF ORAL HYPOGLYC 02/01/2018 PATEL QUIROGA DO Ot Z79.899 OTHER ALF (CURRENT) DRUG THERAPY 02/01/2018 PATEL QUIROGA DO Ot Z86.718 PERSONAL HISTORY OF OTHER VENOUS THROMBO 02/01/2018 PATEL QUIROGA DO Ot Z98.84 BARIATRIC SURGERY STATUS 02/07/2018 PATEL QUIROGA DO Ot E11.43 TYPE 2 DIABETES W DIABETIC AUTONOMIC (PO 02/07/2018 PATEL QUIROGA DO Ot E66.01 MORBID (SEVERE) OBESITY DUE TO EXCESS CA 02/07/2018 PATEL QUIROGA DO Ot F17.210 NICOTINE DEPENDENCE, CIGARETTES, UNCOMPL 02/07/2018 PATEL QUIROGA DO Ot G47.33 OBSTRUCTIVE SLEEP APNEA (ADULT) (PEDIATR 02/07/2018 PATEL QUIROGA DO Ot I11.0 HYPERTENSIVE HEART DISEASE WITH HEART FA 02/07/2018 PATEL QUIROGA DO Ot I20.9 ANGINA PECTORIS, UNSPECIFIED 02/07/2018 PATEL QUIROGA DO Ot I50.9 HEART FAILURE, UNSPECIFIED 02/07/2018 PATEL QUIROGA DO Ot J45.909 UNSPECIFIED ASTHMA, UNCOMPLICATED 02/07/2018 PATEL QUIROGA DO Ot K21.9 GASTRO-ESOPHAGEAL REFLUX DISEASE WITHOUT 02/07/2018 PATEL QUIROGA DO Ot K29.70 GASTRITIS, UNSPECIFIED, WITHOUT BLEEDING 02/07/2018 PATEL QUIROGA DO Ot K44.9 DIAPHRAGMATIC HERNIA WITHOUT OBSTRUCTION 02/07/2018 PATEL QUIROGA DO Ot Z68.43 BODY MASS INDEX (BMI) 50-59.9, ADULT 02/07/2018 PATEL QUIROGA DO Ot Z79.84 ALF (CURRENT) USE OF ORAL HYPOGLYC 02/07/2018 PATEL QUIROGA DO Ot Z79.899 OTHER FINANCIAL PROCESSING CLERK (CURRENT) DRUG THERAPY 02/07/2018 PATEL QUIROGA DO Ot Z86.718 PERSONAL HISTORY OF OTHER VENOUS THROMBO 02/07/2018 PATEL QUIROGA DO Ot Z98.84 BARIATRIC SURGERY STATUS 06/03/2018 ESTHER CHAVEZ MD Ot M25.711 OSTEOPHYTE, RIGHT SHOULDER 06/21/2018 ESTHER CHAVEZ MD Ot M25.711 OSTEOPHYTE, RIGHT SHOULDER 07/18/2018 ESTHER CHAVEZ MD Ot R22.31 LOCALIZED SWELLING, MASS AND LUMP, RIGHT 07/19/2018 ESTHER CHAVEZ MD Ot M25.811 OTHER SPECIFIED JOINT DISORDERS, RIGHT S 07/19/2018 ESTHER CHAVEZ MD Ot M62.89 OTHER SPECIFIED DISORDERS OF MUSCLE 07/19/2018 ESTHER CHAVEZ MD Ot M89.311 HYPERTROPHY OF BONE, RIGHT SHOULDER 08/04/2018 ESTHER CHAVEZ MD Ot M25.811 OTHER SPECIFIED JOINT DISORDERS, RIGHT S 08/04/2018 ESTHER CHAVEZ MD Ot M62.89 OTHER SPECIFIED DISORDERS OF MUSCLE 08/04/2018 ESTHER CHAVEZ MD Ot M89.311 HYPERTROPHY OF BONE, RIGHT SHOULDER 09/26/2018 SIERRA CHING, BUCK Roberson Ot Z01.818 ENCOUNTER FOR OTHER PREPROCEDURAL EXAMIN Procedures Code Description [place] [id number] MICRO ALBUMIN-IN HOUSE 03/30/2012 17900 A1C (IN-HOUSE) 03/30/2012 44550 CMP 03/30/2012 17376 LIPID PANEL 03/30/2012 [id number] GFR CALC (RESULT ONLY) 03/30/2012 44992 ROUTINE VENIPUNCTURE 04/03/2012 13281 PSYCH DIAGNOSTIC EVALUATION 06/15/2012 07298 PSYTX PT&/FAMILY 45 MINUTES 07/26/2012 19488 PSYTX PT&/FAMILY 45 MINUTES 08/18/2012 06929 A1C (IN-HOUSE) 08/22/2012 91828 PSYTX PT&/FAMILY 45 MINUTES 08/25/2012 11719 PSYTX PT&/FAMILY 45 MINUTES 11/01/2012 97426 ROUTINE VENIPUNCTURE 11/21/2012 38435 EKG, TRACING (IN-HOUSE) 11/21/2012 01340 CBC 11/21/2012 22386 CMP 11/21/2012 69817 MAGNESIUM 11/21/2012 [id number] GFR CALC (RESULT ONLY) 11/21/2012 Cardiolog Arpan Torres 11/21/2012 26385 TSH 11/21/2012 50336 PSYTX PT&/FAMILY 45 MINUTES 11/30/2012 53023 EKG, TRACING (IN-HOUSE) 12/15/2012 60118 PSYTX PT&/FAMILY 45 MINUTES 12/27/2012 73572 PSYTX PT&/FAMILY 30 MINUTES 01/12/2013 25521 URINE OPIATES 02/02/2013 61883 URINE DRUG SCREEN (IN-HOUSE) 02/02/2013 47967 URINE DRUG SCREEN (IN-HOUSE) 05/03/2013 58444 ROUTINE VENIPUNCTURE 05/03/2013 31321 CMP 05/03/2013 30175 URINE OPIATES GC/MS 05/03/2013 64263 PSYTX PT&/FAMILY 45 MINUTES 06/05/2013 18843 ROUTINE VENIPUNCTURE 07/05/2013 47918 A1C (IN-HOUSE) 07/05/2013 [id number] GFR CALC (RESULT ONLY) 07/06/2013 72287 CMP 07/06/2013 35030 PSYTX PT&/FAMILY 45 MINUTES 07/19/2013 01452 PSYTX PT&/FAMILY 45 MINUTES 08/09/2013 28373 PSYTX PT&/FAMILY 45 MINUTES 09/26/2013 2001F WEIGHT CHECK 10/10/2013 07978 PSYTX PT&/FAMILY 45 MINUTES 11/27/2013 58539 ROUTINE VENIPUNCTURE 12/14/2013 CADY BROWNING 12/14/2013 98655 A1C (IN-HOUSE) 12/14/2013 16635 UA LONG DIP 12/14/2013 24048 MICRO ALBUMIN-IN HOUSE 12/14/2013 83987 PSA TOTAL 12/14/2013 General S Patel Quiroga 01/23/2014 93010 PSYTX PT&/FAMILY 45 MINUTES 02/26/2014 78458 XRAY CERVICAL SPINE, 2 OR 3 VIEWS 03/22/2014 98043 SLEEP STUDY (HOME) 03/28/2014 90683 EXCISION BENIGN LESION 0.6-1 CM (SPCIFY LOCATION IN [facility] DESCRIPTION) 06/14/2014 77964 ROUTINE VENIPUNCTURE 07/05/2014 43487 A1C (IN-HOUSE) 07/05/2014 35664 CBC 07/05/2014 [id number] GFR CALC (RESULT ONLY) 07/05/2014 37886 CMP 07/05/2014 37278 LIPID PANEL 07/05/2014 46241 UA W/ CULTURE IF INDICATED 07/08/2014 Results Test Result Range CBC - 04/20/17 08:57 WHITE BLOOD CELL COUNT 6.1 Thousand/uL 3.8-10.8 RED BLOOD CELL COUNT 5.08 Million/uL 4.20-5.80 HEMOGLOBIN 16.5 g/dL 13.2-17.1 HEMATOCRIT 48.0 % 38.5-50.0 MCV 94.5 fL 80.0-100.0 MCH 32.5 pg 27.0-33.0 MCHC 34.4 g/dL 32.0-36.0 RDW 12.9 % 11.0-15.0 PLATELET COUNT 230 Thousand/uL 140-400 MPV 10.4 fL 7.5-12.5 ABSOLUTE NEUTROPHILS 3861 cells/uL 7305-5730 ABSOLUTE LYMPHOCYTES 1592 cells/uL 850-3900 ABSOLUTE MONOCYTES 427 cells/uL 200-950 ABSOLUTE EOSINOPHILS 201 cells/uL 15-500 ABSOLUTE BASOPHILS 18 cells/uL 0-200 NEUTROPHILS 63.3 % NRG LYMPHOCYTES 26.1 % NRG MONOCYTES 7.0 % NRG EOSINOPHILS 3.3 % NRG BASOPHILS 0.3 % NRG PDM - PAIN MGMT (PROFILE 3 WITH CONFIRMATION) - 07/27/17 10:34 Prescribed Drug 1 MS Contin(TM) NRG Creatinine 114.9 mg/dL > or=20.0 pH 7.10 4.5 - 9.0 Oxidant NEGATIVE mcg/mL <200 Amphetamines NEGATIVE ng/mL <500 medMATCH Amphetamines CONSISTENT NRG Benzodiazepines NEGATIVE ng/mL <100 medMATCH Benzodiazepines CONSISTENT NRG Marijuana Metabolite NEGATIVE ng/mL <20 medMATCH Marijuana Metab CONSISTENT NRG Cocaine Metabolite NEGATIVE ng/mL <150 medMATCH Cocaine Metab CONSISTENT NRG Opiates POSITIVE ng/mL <100 Oxycodone NEGATIVE ng/mL <100 medMATCH Oxycodone CONSISTENT NRG COMMENT NRG Codeine NEGATIVE ng/mL <50 medMATCH Codeine CONSISTENT NRG Hydrocodone 799 ng/mL <50 medMATCH Hydrocodone CONSISTENT NRG Hydromorphone 82 ng/mL <50 medMATCH Hydromorphone CONSISTENT NRG Morphine 06042 ng/mL <50 medMATCH Morphine CONSISTENT NRG Norhydrocodone 1202 ng/mL <50 medMATCH Norhydrocodone CONSISTENT NRG Prescribed Drug 2 Hydrocodone NRG PDM - PAIN MGMT (PROFILE 3 WITH CONFIRMATION) - 02/06/18 10:33 Prescribed Drug 1 Morphine NRG Creatinine 199.1 mg/dL > or=20.0 pH 6.48 4.5 - 9.0 Oxidant NEGATIVE mcg/mL <200 Amphetamines NEGATIVE ng/mL <500 medMATCH Amphetamines CONSISTENT NRG Benzodiazepines NEGATIVE CONFIRMED ng/mL <100 Marijuana Metabolite NEGATIVE ng/mL <20 medMATCH Marijuana Metab CONSISTENT NRG Cocaine Metabolite NEGATIVE ng/mL <150 medMATCH Cocaine Metab CONSISTENT NRG Opiates POSITIVE ng/mL <100 Oxycodone NEGATIVE ng/mL <100 medMATCH Oxycodone CONSISTENT NRG COMMENT NRG Alphahydroxyalprazolam NEGATIVE ng/mL <25 medMATCH aOH alprazolam CONSISTENT NRG Alphahydroxymidazolam NEGATIVE ng/mL <50 medMATCH aOH midazolam CONSISTENT NRG Alphahydroxytriazolam NEGATIVE ng/mL <50 medMATCH aOH triazolam CONSISTENT NRG Aminoclonazepam NEGATIVE ng/mL <25 medMATCH Aminoclonazepam CONSISTENT NRG Hydroxyethylflurazepam NEGATIVE ng/mL <50 medMATCH OH,Et flurazepam CONSISTENT NRG Lorazepam NEGATIVE ng/mL <50 medMATCH Lorazepam CONSISTENT NRG Nordiazepam NEGATIVE ng/mL <50 medMATCH Nordiazepam CONSISTENT NRG Oxazepam NEGATIVE ng/mL <50 medMATCH Oxazepam CONSISTENT NRG Temazepam NEGATIVE ng/mL <50 medMATCH Temazepam CONSISTENT NRG Codeine NEGATIVE ng/mL <50 medMATCH Codeine CONSISTENT NRG Hydrocodone 773 ng/mL <50 medMATCH Hydrocodone CONSISTENT NRG Hydromorphone NEGATIVE ng/mL <50 medMATCH Hydromorphone CONSISTENT NRG Morphine 2893 ng/mL <50 medMATCH Morphine CONSISTENT NRG Norhydrocodone 835 ng/mL <50 medMATCH Norhydrocodone CONSISTENT NRG Prescribed Drug 2 Hydrocodone NRG TSH - 02/06/18 10:33 TSH 1.12 mIU/L 0.40-4.50 Methicillin resistant Staphylococcus aureus (MRSA) screening culture - 09/22/18 12:18 Methicillin resistant Staphylococcus aureus (MRSA) screening culture NEG NRG Capillary blood glucose measurement by glucometer (mass/volume) - 10/04/18 06:22 Capillary blood glucose measurement by glucometer (mass/volume) 87 mg/dL 70-110 Encounters ACCT No. Visit Date/Time Discharge Status Pt. Type Provider Facility Loc./Unit Complaint [id number] 07/25/2018 10:00:00 07/25/2018 23:59:59 CLS Outpatient ESTHER CHAVEZ MD [facility] [id number] 07/21/2018 08:00:00 Document Registration [id number] 02/06/2018 10:00:00 Document Registration [id number] 07/27/2017 09:40:00 Document Registration [id number] 04/20/2017 09:00:00 Document Registration [id number] 09/22/2018 11:56:00 09/22/2018 12:25:00 DIS Outpatient BUCK ESQUIVEL MD Via [facility] PREOP RIGHT SHOULDER IMPINGEMENT SYNDROME [id number] 07/14/2018 07:49:00 07/14/2018 23:59:59 CLS Outpatient ESTHER CHAVEZ MD [facility] RAD MASS OF RIGHT SHOULDER REGION [id number] 06/28/2018 10:48:00 06/28/2018 23:59:59 CLS Outpatient ESTHER CHAVEZ MD [facility] RAD MASS OF SHOULDER REGION [id number] 06/01/2018 16:35:00 06/01/2018 23:59:59 CLS Outpatient ESTHER CHVAEZ MD [facility] RAD MASS OF SHOULDER [id number] 01/31/2018 07:03:00 01/31/2018 10:10:00 DIS Outpatient PATEL QUIROGA DO [facility] ENDO REFLUX/GERD [id number] 01/24/2018 06:22:00 01/24/2018 23:59:59 CLS Outpatient PATEL QUIROGA DO [facility] PREOP EGD [id number] 01/04/2018 09:46:00 01/04/2018 23:59:59 CLS Outpatient ESTHER CHAVEZ MD [facility] RAD INJURY OF LEFT KNEE [id number] 12/28/2017 13:06:00 12/28/2017 23:59:59 CLS Outpatient ARPAN TORRES MD [facility] CARD R07.89 CHEST DISCOMFORT [id number] 12/22/2017 09:09:00 12/22/2017 23:59:59 CLS Outpatient BUCK DENTON [facility] RAD INJURY OF LEFT KNEE [id number] 12/07/2017 07:58:00 12/07/2017 23:59:59 CLS Outpatient ARPAN TORRES MD [facility] CARD CHEST DISCOMFORT [id number] 11/10/2017 10:52:00 11/10/2017 23:59:59 CLS Outpatient ESTHER CHAVEZ MD [facility] RAD R09.89 DECR [id number] 05/04/2016 13:34:00 05/04/2016 23:59:59 CLS Outpatient ESTHER CHAVEZ MD [facility] RAD RIGHT FOOT PAIN [id number] 04/08/2016 07:58:00 04/08/2016 09:30:00 DIS Emergency MARY TIM MD [facility] ER FALL/RIGHT FOOT INJURY [id number] 10/23/2015 13:09:00 10/31/2015 15:23:00 DIS Outpatient ESTHER CHAVEZ MD [facility] REHAB FINGER PAIN [id number] 01/28/2015 13:48:00 01/28/2015 23:59:59 CLS Outpatient ESTHER CHAVEZ MD [facility] RAD PARESTHESIA OF BOTH HANDS, DECREASED PEDAL PULSES [id number] 03/29/2014 13:43:00 03/29/2014 23:59:59 CLS Outpatient ESTHER CHAVEZ MD [facility] SLEEP SNORING, EDS [id number] 03/21/2014 20:48:00 03/21/2014 23:21:00 DIS Emergency GONSALO NOVAK MD [facility] ER L SIDE NECK PAIN, L ARM PAIN [id number] 01/14/2014 07:49:00 01/14/2014 09:20:00 DIS Outpatient CADY WORKMAN MD [facility] SDC RECTAL BLEEDING [id number] 01/09/2014 07:53:00 01/09/2014 23:59:59 CLS Outpatient CADY WORKMAN MD [facility] PREOP RECTAL BLEEDING [id number] 11/15/2013 12:40:00 11/15/2013 23:59:59 CLS Outpatient HANNAH CHING, ARPAN Hall [facility] CARD CP,HTN,HLP [id number] 10/30/2013 14:31:00 10/30/2013 16:25:00 DIS Emergency MARY TIM MD [facility] ER CHEST PAIN [id number] 09/09/2013 15:46:00 09/09/2013 16:07:00 DIS Emergency DIAMOND BOWER APRN [facility] ER INSECT BITE [id number] 03/17/2013 17:26:00 03/17/2013 23:59:59 CLS Outpatient SAL KRUSE MD [facility] LAB MORBID OBESITY [id number] 11/10/2012 12:59:00 01/09/2013 00:01:00 DIS Outpatient JOHNY GARNER MD [facility] REHAB LEG WEAKNESS [id number] 08/08/2012 00:19:00 08/08/2012 19:45:00 DIS Inpatient JOHNY GARNER MD [facility] CSD CHEST PAIN,ELEVATED D-DIMER,LUE WEAKNESS [id number] 10/04/2018 07:30:00 LÓPEZ ESQUIVEL MD, BUCK [facility] RIGHT SHOULDER IMPINGEMENT SYNDROME [id number] 05/16/2014 19:45:00 Document Registration [id number] 04/14/2012 15:35:00 Document Registration [id number] 01/19/2012 13:38:00 Document Registration [id number] 12/13/2011 05:53:00 Document Registration [id number] 12/10/2011 08:39:00 Document Registration [id number] 12/08/2011 09:11:00 Document Registration [id number] 08/04/2011 17:53:00 Document Registration [id number] 06/27/2011 16:05:00 Document Registration [id number] 03/14/2011 22:04:00 Document Registration [id number] 03/11/2011 12:45:00 Document Registration [id number] 12/08/2010 19:38:00 Document Registration [id number] 07/30/2010 11:37:00 Document Registration [id number] 07/13/2010 12:20:00 Document Registration [id number] 06/29/2010 18:34:00 Document Registration [id number] 07/08/2014 12:00:00 07/08/2014 23:59:59 CLS Outpatient ESTHER CHAVEZ MD [id number] 07/05/2014 09:00:00 07/05/2014 23:59:59 CLS Outpatient ESTHER CHAVEZ MD [id number] 06/28/2014 10:55:00 06/28/2014 23:59:59 CLS Outpatient PARI VILLAGRAN [id number] 06/14/2014 13:09:00 06/14/2014 23:59:59 CLS Outpatient ESTHER CHAVEZ MD [id number] 05/29/2014 10:09:00 05/29/2014 23:59:59 CLS Outpatient ESTHER CHAVEZ MD [id number] 03/22/2014 14:32:00 03/22/2014 23:59:59 CLS Outpatient ESTHER CHAVEZ MD [id number] 03/22/2014 14:32:00 03/22/2014 23:59:59 CLS Outpatient ESTHER CHAVEZ MD [id number] 02/26/2014 11:51:00 02/26/2014 23:59:59 CLS Outpatient SCOTT LSCS, ADILIA Montiel [id number] 01/23/2014 10:21:00 01/23/2014 23:59:59 CLS Outpatient ESTHER CHAVEZ MD [id number] 01/08/2014 14:04:00 01/08/2014 23:59:59 CLS Outpatient BYRON MURILLO DDS [id number] 12/14/2013 14:43:00 12/14/2013 23:59:59 CLS Outpatient ESTHER CHAVEZ MD [id number] 11/27/2013 12:45:00 11/27/2013 23:59:59 CLS Outpatient SCOTT LSCS, ADILIA Montiel [id number] 11/14/2013 08:32:00 11/14/2013 23:59:59 CLS Outpatient ESTHER CHAVEZ MD [id number] 10/10/2013 13:20:00 10/10/2013 23:59:59 CLS Outpatient JOHNY GARNER MD [id number] 09/26/2013 13:45:00 09/26/2013 23:59:59 CLS Outpatient SCOTT LSCS, ADILIA Montiel [id number] 08/09/2013 08:49:00 08/09/2013 23:59:59 CLS Outpatient SCOTT LSCS, ADILIA Montiel [id number] 07/19/2013 08:33:00 07/19/2013 23:59:59 CLS Outpatient SCOTT LSCS, ADILIA Montiel [id number] 07/05/2013 15:12:00 07/05/2013 23:59:59 CLS Outpatient JOHNY GARNER MD [id number] 06/05/2013 14:48:00 06/05/2013 23:59:59 CLS Outpatient SCOTT LSCS, ADILIA Montiel [id number] 05/03/2013 15:56:00 05/03/2013 23:59:59 CLS Outpatient JOHNY GARNER MD [id number] 05/03/2013 15:56:00 05/03/2013 23:59:59 CLS Outpatient JOHNY GARNER MD [id number] 03/13/2013 13:05:00 03/13/2013 23:59:59 CLS Outpatient RAFAELA SHELTON DDS [id number] 02/28/2013 13:10:00 02/28/2013 23:59:59 CLS Outpatient JOHNY GARNER MD [id number] 02/02/2013 10:39:00 02/02/2013 23:59:59 CLS Outpatient JOHNY GARNER MD [id number] 01/15/2013 08:46:00 01/15/2013 23:59:59 CLS Outpatient CAT SINGH RAFAELA Yanez [id number] 01/11/2013 15:57:00 01/11/2013 23:59:59 CLS Outpatient ADILIA ELWIS [id number] 01/01/2013 11:03:00 01/01/2013 23:59:59 CLS Outpatient JOHNY GARNER MD [id number] 12/27/2012 12:28:00 12/27/2012 23:59:59 CLS Outpatient ADILIA LEWIS [id number] 12/15/2012 09:19:00 12/15/2012 23:59:59 CLS Outpatient KISHA CHAVIS DO [id number] 12/08/2012 12:34:00 12/08/2012 23:59:59 CLS Outpatient CAT FRANCISCORAFAELA [id number] 12/01/2012 13:53:00 12/01/2012 23:59:59 CLS Outpatient JOHNY GARNER MD [id number] 11/30/2012 13:12:00 11/30/2012 23:59:59 CLS Outpatient ADILIA LEWIS [id number] 06/12/2012 12:49:00 06/12/2012 23:59:59 CLS Outpatient JENN DONALD LCPC [id number] 05/02/2012 13:14:00 05/02/2012 23:59:59 CLS Outpatient JOHNY GARNER MD [id number] 04/03/2012 15:29:00 04/03/2012 23:59:59 CLS Outpatient [id number] 03/30/2012 09:26:00 03/30/2012 23:59:59 CLS Outpatient [id number] 03/13/2012 10:51:00 03/13/2012 23:59:59 CLS Outpatient JOHNY GARNER MD [id number] 07/02/2010 13:45:00 07/02/2010 23:59:59 CLS Outpatient [id number] 07/02/2010 13:45:00 07/02/2010 23:59:59 CLS Outpatient KAT AGUILAR MD [id number] 11/21/2012 12:09:00 Document Registration [id number] 11/01/2012 09:40:00 Document Registration [id number] 09/11/2012 17:30:00 Document Registration [id number] 08/22/2012 09:48:00 Document Registration [id number] 08/22/2012 09:48:00 Document Registration [id number] 08/15/2012 13:09:00 Document Registration [id number] 07/20/2012 09:04:00 Document Registration [id number] 07/14/2012 12:07:00 Document Registration
--- NOTE | 2018-10-04 07:36 | Progress Note-Pre Operative ---
Pre-Operative Progress Note H&P Reviewed The H&P was reviewed, patient examined and no changes noted. Date Seen by Provider: Oct 04, 2018 Time Seen by Provider: 07:20 Date H&P Reviewed: Oct 04, 2018 Time H&P Reviewed: 07:11 Pre-Operative Diagnosis: right acromioclavicular primary arthritis and cyst and SLAP tear BUCK ESQUIVEL MD Oct 04, 2018 07:36
--- NOTE | 2018-10-04 07:38 | Progress Note-Post Operative ---
Post-Operative Progess Note Surgeon (s)/Field Coil Winder (s) Surgeon BUCK ESQUIVEL MD Field Coil Winder: Chandrakant Bill Pre-Operative Diagnosis right acromioclavicular primary arthritis and cyst and SLAP tear Post-Operative Diagnosis right acromioclavicular primary arthritis and ganglion cyst, SLAP and labral tears and shoulder impingement Procedure & Operative Findings Date of Procedure 10/04/18 Procedure Performed/Findings right shoulder arthroscopic biceps tenotomy, labral debridement, acromioplasty and open distal clavicle excision and cyst excision Anesthesia Type GETA Estimated Blood Loss Estimated blood loss (mL): minimal Specimens/Packing Specimens Removed ganglion cyst Packing: none BUCK ESQUIVEL MD Oct 04, 2018 07:38
[2018-10-04] MEDS ORDERED: EPINEPHrine INJECTION 1 MG/ML AMP ONE (08:20)
[2018-10-04] MEDS ORDERED: PHENYLEPHRINE 100 MCG/ML 10 ML (ANESTHESIA) SYR ONE (08:49)
[2018-10-04] MEDS ORDERED: PHENYLEPHRINE INJ 10 MG/ML (FOR DRIP KITS ONLY) ONE (08:49)
[2018-10-04] MEDS ORDERED: MEPERIDINE (DEMEROL) INJ 50 MG/ML IVP ONE (09:00)
[2018-10-04] MEDS ORDERED: morphine INJ 10 MG/ML 1ML (SYR OR VIAL) IVP ONE (09:00)
[2018-10-04] MEDS ORDERED: ONDANSETRON 4 MG/2 ML (SDV) Z0FRAN IVP PRN (09:00)
[2018-10-04] MEDS ORDERED: morphine INJ 10 MG/ML 1ML (SYR OR VIAL) ONE (09:09)
[2018-10-04] MEDS ORDERED: OXYC-471 PO (09:30)
--- NOTE | 2018-10-04 11:09 | OPERATIVE REPORT ---
DATE OF SERVICE: 10/04/2018 PREOPERATIVE DIAGNOSES: 1. Right shoulder acromioclavicular primary osteoarthritis. 2. Right shoulder acromioclavicular ganglion cyst. 3. Right shoulder SLAP tear. 4. Right shoulder labral tear. 5. Right shoulder impingement. POSTOPERATIVE DIAGNOSES: 1. Right shoulder acromioclavicular primary osteoarthritis. 2. Right shoulder acromioclavicular ganglion cyst. 3. Right shoulder SLAP tear. 4. Right shoulder labral tear. 5. Right shoulder impingement. PROCEDURES: 1. Right shoulder open distal clavicle excision. 2. Right shoulder open acromioclavicular ganglion cyst excision. 3. Right shoulder arthroscopic biceps tenotomy. 4. Right shoulder arthroscopic labral debridement. 5. Right shoulder arthroscopic acromioplasty. SURGEON: Issac Esquivel MD PUNCH HAND: Chandrakant Ramos, who assisted throughout the procedure and closed the incisions. ANESTHESIA: General endotracheal by Chandrakant Rockwell CRNA ESTIMATED BLOOD LOSS: Minimal. DRAINS: None. COMPLICATIONS: None. POSTOPERATIVE PLAN: Sling wear for 2 to 4 weeks with passive range of motion for 2 weeks. The patient was transferred to the recovery room awake and in stable condition. STATEMENT OF MEDICAL NECESSITY: The patient is a 48-year-old gentleman with complaints of right anterior superior shoulder pain with associated mass. Findings were consistent with a ganglion cyst of his acromioclavicular joint, which was evident on MRI as well. In addition, he had a SLAP tear and degenerative tearing of his labrum. The patient had a positive Neer's and positive Hawkin sign consistent with impingement as well. Due to functional impairment and failure to improve with conservative measures, the patient elected to proceed with surgical intervention. DESCRIPTION OF PROCEDURE: After risks and benefits of the procedure were discussed and questions were answered, an informed consent was signed and placed on the chart. The operative site was confirmed in the preoperative holding area initialed by the surgeon. The patient was then transferred to the operating room and after adequate levels of general endotracheal anesthetic were obtained, a timeout was called, confirming the operative site. The right shoulder and upper extremity were prepped and draped in the usual sterile fashion. Shoulder joint was injected with 20 mL of fluid as was the subacromial space. Standard posterior portal was placed. Diagnostic arthroscopy was carried out, which revealed a type 2 SLAP tear. In addition, there was an anterior labral flap at the 3 o'clock position. The glenoid demonstrated grade I chondral softening with no unstable chondral flaps. Humeral head demonstrated no unstable chondral flaps. The rotator cuff was intact throughout. Subacromial space demonstrated moderate bursitis with slope in the anterolateral acromion. An anterior portal was then created and the biceps anchor was released and the stump was debrided with a shaver. The anterior labral flap was debrided with a shaver as well. The scope was redirected in the subacromial space. Lateral portal was created. A bursectomy was performed and the acromion was planed to a flat type 1 acromion. The shoulder joint was copiously irrigated. The portal sites were closed with 3-0 nylon in simple interrupted fashion. Incision was then made over the acromioclavicular joint. The cyst was carefully dissected and excised in total. This was sent for pathologic examination. The deltotrapezial fascia was then incised exposing the distal clavicle, which was then excised using a rongeur as a portion of it had been resected in a previous procedure. After adequate resection was performed, this was copiously irrigated and the deltotrapezial fascia was closed with 0 Vicryl in [id number] interrupted fashion with an excellent closure obtained. The wound was further irrigated, 2-0 Vicryl was used to reapproximate subcutaneous tissue and skin was closed with 4-0 nylon running alternating horizontal mattress fashion. Shoulder joint was injected with Duramorph. Portal sites and incisions were infiltrated with plain Marcaine. A soft dressing and sling were applied and the patient was transferred to the recovery room awake and in stable condition. Job ID: [id number] DocumentID: [id number] Dictated Date: 10/04/2018 08:54:16 Scale Assembly Set Up Worker Date: 10/04/2018 11:08:24 Dictated By: ISSAC ESQUIVEL MD
--- NOTE | 2018-10-04 12:19 | Anesthesia-General Post-Op ---
General Patient Condition Mental Status/LOC: Same as Preop Cardiovascular: Satisfactory Nausea/Vomiting: Absent Respiratory: Satisfactory Pain: Controlled Complications: Absent Post Op Complications Complications None Follow Up Care/Instructions Patient Instructions None needed. Anesthesia/Patient Condition Patient Condition Patient is doing well, no complaints, stable vital signs, no apparent adverse anesthesia problems. No complications reported per nursing. ROSA DA SILVA CRNA Oct 04, 2018 12:19
== END 2018-10-04 11:10 | disposition home or self-care (01) ==
LOC: SDC 06:03
PROVIDERS: ATTEND Orthopaedic Surgery
DX: S43.401A Unspecified sprain of right shoulder joint, initial encounter (principal); S43.51XA Sprain of right acromioclavicular joint, initial encounter; M67.411 Ganglion, right shoulder; M75.41 Impingement syndrome of right shoulder; M19.011 Primary osteoarthritis, right shoulder; I11.0 Hypertensive heart disease with heart failure; I50.9 Heart failure, unspecified; F17.210 Nicotine dependence, cigarettes, uncomplicated; J44.9 Chronic obstructive pulmonary disease, unspecified; E11.9 Type 2 diabetes mellitus without complications; K21.9 Gastro-esophageal reflux disease without esophagitis; F32.9 Major depressive disorder, single episode, unspecified; G89.29 Other chronic pain; M79.606 Pain in leg, unspecified; E66.01 Morbid (severe) obesity due to excess calories; Z68.42 Body mass index [BMI] 45.0-49.9, adult; Z88.8 Allergy status to other drugs, medicaments and biological substances; Z79.84 Long term (current) use of oral hypoglycemic drugs; Z79.891 Long term (current) use of opiate analgesic; Z79.899 Other long term (current) drug therapy; Z86.718 Personal history of other venous thrombosis and embolism; F43.10 Post-traumatic stress disorder, unspecified; F17.200 Nicotine dependence, unspecified, uncomplicated; Z79.82 Long term (current) use of aspirin; Z79.1 Long term (current) use of non-steroidal anti-inflammatories (NSAID)
CPT/HCPCS: 82962

== ENCOUNTER 2018-11-09 12:55 | Outpatient (RCR) | payer MEDICARE, MEDICAID ==
[~2018-11-09 12:55] MED LIST changes: +OXYC-471 PO
== END 2018-11-09 15:02 | disposition home or self-care (01) ==
PROVIDERS: ATTEND Orthopaedic Surgery
DX: M25.511 Pain in right shoulder (principal); Z98.890 Other specified postprocedural states

== ENCOUNTER 2019-01-22 09:30 | Outpatient (CLI) | payer MEDICARE, MEDICAID ==
[~2019-01-22] VITALS: Ht 167 cm; Wt 133.0 kg
[~2019-01-22 09:30] MED LIST changes: +ATOR80TA76 PO; +ESCI10TA55 PO; +HYDR-700 PO; +SUCR1TAB PO
== END 2019-01-22 14:40 | disposition home or self-care (01) ==
LOC: PREOP 09:30
PROVIDERS: ATTEND Surgery
DX: Z01.818 Encounter for other preprocedural examination (principal)

== ENCOUNTER → 2019-11-23 | Outpatient (CLI) | payer MEDICARE, MEDICAID ==
[~2019-11-23] MED LIST changes: -ALFU10TA11 PO; +ALFU10TA12 PO; -OLOP2.5D OP; +OLOP2.5D12 OP
== END ==
LOC: LABNPT 05:51
PROVIDERS: ATTEND Family Medicine
DX: Z01.812 Encounter for preprocedural laboratory examination (principal); Z20.828 Contact with and (suspected) exposure to other viral communicable diseases
CPT/HCPCS: 87635

== ENCOUNTER 2019-11-26 20:21 | Outpatient (CLI) | payer MEDICARE, MEDICAID | END 2019-11-27 06:05 | disposition home or self-care (01) | LOC: SLEEP 20:21 | PROVIDERS: ATTEND Family Medicine | DX: G47.33 Obstructive sleep apnea (adult) (pediatric) (principal); I10 Essential (primary) hypertension; Z20.828 Contact with and (suspected) exposure to other viral communicable diseases | CPT/HCPCS: 95810 ==

== ENCOUNTER → 2020-01-08 | Outpatient (CLI) | payer MEDICARE, MEDICAID ==
[~2020-01-08] MED LIST changes: -PANT40TA3 PO; +PANT40TA52 PO
== END ==
LOC: LABNPT 08:20
PROVIDERS: ATTEND Family Medicine
DX: Z20.828 Contact with and (suspected) exposure to other viral communicable diseases (principal); G47.33 Obstructive sleep apnea (adult) (pediatric)
CPT/HCPCS: 87635

== ENCOUNTER 2020-01-10 19:47 | Outpatient (CLI) | payer MEDICARE, MEDICAID | END 2020-01-11 05:49 | disposition home or self-care (01) | LOC: SLEEP 19:47 | PROVIDERS: ATTEND Family Medicine | DX: G47.33 Obstructive sleep apnea (adult) (pediatric) (principal) | CPT/HCPCS: 95811 ==

== ENCOUNTER 2020-03-06 05:38 | Outpatient (RCR) | payer MEDICARE, MEDICAID ==
[~2020-03-06] VITALS: Ht 167.7 cm; Wt 158.6 kg
[~2020-03-06 05:38] MED LIST changes: +LISI-552 PO
== END 2020-03-06 09:14 | disposition home or self-care (01) ==
LOC: PREOP 05:38
PROVIDERS: ATTEND Surgery
DX: Z01.812 Encounter for preprocedural laboratory examination (principal); Z12.11 Encounter for screening for malignant neoplasm of colon; Z20.828 Contact with and (suspected) exposure to other viral communicable diseases; Z86.010 Personal history of colon polyps; Z80.0 Family history of malignant neoplasm of digestive organs
CPT/HCPCS: 87635

== ENCOUNTER 2020-03-11 06:49 | Day surgery (SDC) | payer MEDICARE, MEDICAID ==
[~2020-03-11] VITALS: Ht 168 cm; Wt 158.6 kg
[2020-03-11] MEDS ORDERED: LACTATED RINGERS 1,000 ML IV STA ×2 (07:06→07:44)
[2020-03-11] MEDS ORDERED: LACTATED RINGERS 1,000 ML IV ONE (07:07)
[2020-03-11 07:43] VITALS: BP 165/107
[2020-03-11] MEDS ORDERED: RT-ALBUTEROL SULF 2.5 MG/3 ML PRE-MIX VIAL INH ONE (07:45)
[2020-03-11] MEDS ORDERED: RT-ALBUTEROL SULF 2.5 MG/3 ML PRE-MIX VIAL ONE (07:46)
[2020-03-11] MEDS ORDERED: KETAMINE/NaCl 50 MG/5 ML SYRINGE (ED ONLY) ONE (07:55)
[2020-03-11] MEDS ORDERED: MIDAZOLAM 2 MG/2 ML (VERSED) VIAL ONE (07:55)
[2020-03-11] MEDS ORDERED: proPOfol 200 MG/20 ML (DIPRIVAN) VIAL IV ONE (07:55)
--- NOTE | 2020-03-11 08:33 | Progress Note-Pre Operative ---
Pre-Operative Progress Note H&P Reviewed The H&P was reviewed, patient examined and no changes noted. Date Seen by Provider: Mar 11, 2020 Time Seen by Provider: 08:33 Date H&P Reviewed: Mar 11, 2020 Time H&P Reviewed: 08:33 Pre-Operative Diagnosis: history of polyps, family hx colon ca PATEL QUIROGA DO Mar 11, 2020 08:33
[2020-03-11 09:10] VITALS: BP 145/87
[2020-03-11 09:15] VITALS: BP 139/85
--- NOTE | 2020-03-11 09:15 | Progress Note-Post Operative ---
Post-Operative Progess Note Surgeon (s)/Project Safety Manager (s) Surgeon PATEL QUIROGA DO Project Safety Manager: na Pre-Operative Diagnosis history of polyps, family hx colon ca Post-Operative Diagnosis colon polyps Procedure & Operative Findings Date of Procedure 03/11/20 Procedure Performed/Findings colonoscopy with hot bx polypectomy x 5 Anesthesia Type per dinkey engine mechanic Estimated Blood Loss Estimated blood loss (mL): none Specimens/Packing Specimens Removed colon polyps PATEL QUIROGA DO Mar 11, 2020 09:15
--- NOTE | 2020-03-11 09:17 | Discharge Inst-Simple/Standard ---
Discharge Inst-Standard Patient Instructions/Follow Up Plan of Care/Instructions/FU: 2-3 weeks sandy Activity as Tolerated: Yes Discharge Diet: Regular Diet (high fiber) PATEL QUIROGA DO Mar 11, 2020 09:17
[2020-03-11 09:20] VITALS: BP 139/85
[2020-03-11 09:41] VITALS: BP 140/80
--- NOTE | 2020-03-11 14:03 | OPERATIVE REPORT ---
DATE OF SERVICE: 03/11/2020 PREOPERATIVE DIAGNOSES: History of colon polyps, family history of colon cancer. POSTOPERATIVE DIAGNOSIS: Colon polyps. PROCEDURE: Colonoscopy with hot biopsy polypectomy x5. SURGEON: Patel Cardozo DO ANESTHESIA: Per LOAN SERVICES PROFESSIONAL. ESTIMATED BLOOD LOSS: None. COMPLICATIONS: None. INDICATIONS: The patient is a 49-year-old male with history of polyps and family history of colon cancer. He understands risks and benefits of procedure and wished to proceed with procedure. Consent was signed in the chart. DESCRIPTION OF PROCEDURE: The patient was taken to the endoscopy suite, placed in left lateral recumbent position. Timeout was performed. Digital rectal exam was performed. No palpable polyps, masses or ulcerations. Scope was inserted in the rectum and advanced all the way to cecum with minimal difficulty. Prep was adequate with irrigation and suction. Scope was then slowly retracted back. No polyps, masses or ulcerations within the cecum, ascending colon and transverse colon, there were 2 small polyps, which hot biopsy polypectomies were performed. Scope was then continuously retracted back into the sigmoid, descending without any other pathology. In sigmoid colon, another small polyp was present, which hot biopsy polypectomy was performed. Scope was then continuously retracted back and two small polyps were present in the rectum, which hot biopsy polypectomies were performed. Scope was retroflexed noting no other pathology. Scope was returned to its normal position, slowly withdrawn until completely removed. The patient tolerated procedure well without any complications. He was taken to recovery room in stable condition. RECOMMENDATIONS: The patient will need repeat colonoscopy in 3 to 5 years. Any issues before that be seen at that time. The patient will follow up on pathology in 2 to 3 weeks. Job ID: [id number] DocumentID: [id number] Dictated Date: 03/11/2020 09:19:45 Supervisor Mapping Date: 03/11/2020 14:02:24 Dictated By: PATEL CARDOZO DO
== END 2020-03-11 09:45 | disposition home or self-care (01) ==
LOC: ENDO 06:49
PROVIDERS: ATTEND Surgery
DX: D12.3 Benign neoplasm of transverse colon (principal); K63.5 Polyp of colon; I11.0 Hypertensive heart disease with heart failure; I50.9 Heart failure, unspecified; I20.9 Angina pectoris, unspecified; J44.9 Chronic obstructive pulmonary disease, unspecified; G47.33 Obstructive sleep apnea (adult) (pediatric); F41.9 Anxiety disorder, unspecified; F32.9 Major depressive disorder, single episode, unspecified; K21.9 Gastro-esophageal reflux disease without esophagitis; E11.40 Type 2 diabetes mellitus with diabetic neuropathy, unspecified; E78.2 Mixed hyperlipidemia; F17.210 Nicotine dependence, cigarettes, uncomplicated; E66.01 Morbid (severe) obesity due to excess calories; Z68.43 Body mass index [BMI] 50.0-59.9, adult; Z79.51 Long term (current) use of inhaled steroids; Z79.899 Other long term (current) drug therapy; Z79.84 Long term (current) use of oral hypoglycemic drugs; Z88.8 Allergy status to other drugs, medicaments and biological substances; Z86.010 Personal history of colon polyps; Z80.0 Family history of malignant neoplasm of digestive organs
CPT/HCPCS: 82962; 88305; 94640

== ENCOUNTER → 2020-08-20 | Outpatient (CLI) | payer MEDICARE, MEDICAID ==
[~2020-08-20] VITALS: Ht 167 cm; Wt 146.0 kg
[~2020-08-20] MED LIST changes: +ESCI-2 PO; -ESCI10TA55 PO; -LISI-552 PO; -LISI10TA2 PO; +LISI10TA25 PO; +LISI20TA26 PO; -OXYC-471 PO; +OXYC1TAB11 PO; +REGADENOSON 0.4 MG/5 ML SYR (LEXISCAN) IV ONE
[2020-08-20] MEDS: CATHETER FLUSH 10 ML SYR IV PRN ×2 (13:09→13:52)
[2020-08-20 13:48] VITALS: BP 168/82
--- NOTE | 2020-08-20 15:57 | Cardiology Stress Test Report ---
Stress Test Report Date of Procedure/Referring: Date of Procedure: Aug 20, 2020 PCP Arpan Torres MD Admitting Physician Eli Cheema MD Indications: CP Baseline Heart Rate: 67 Baseline Blood Pressure: Blood Pressure Systolic: 168 Blood Pressure Diastolic: 82 Baseline Vitals Vital Signs Date Time Temp Pulse Resp B/P (MAP) Pulse Ox O2 Delivery O2 Flow Rate FiO2 08/20/20 13:48 79 14 168/82 (110) 94 Room Air Baseline EKG: Baseline EKG: NSR Summary After explaining the procedure to the patient, he signed a consent and then brought to the stress nuclear laboratory. Patient received 0.4 mg Lexiscan for stress test, ECG, heart rate and blood pressure were monitored continuously. Resting and stress dose of radio tracer were injected, imaging was acquired and reviewed in short axis, horizontal long axis and vertical long axis views. TID: 1.15 SSS: 2 SDS: 0 EF: 52 1. Patient tolerated Lexiscan well 2. Diaphragmatic attenuation with no significant ischemia or infarction on SPECT images 3. Normal left ventricular size, EF 52% ARPAN TORRES MD Aug 20, 2020 15:57
== END ==
LOC: CARD 12:00
PROVIDERS: ATTEND Internal Medicine Cardiovascular Disease
DX: R07.9 Chest pain, unspecified (principal); I10 Essential (primary) hypertension
CPT/HCPCS: 78452; 93017; 93306; A9502

== ENCOUNTER → 2020-11-25 | Outpatient (CLI) | payer MEDICARE, MEDICAID ==
[~2020-11-25] MED LIST changes: -REGADENOSON 0.4 MG/5 ML SYR (LEXISCAN) IV ONE
== END ==
LOC: ORTHO 09:08
PROVIDERS: ATTEND Orthopaedic Surgery
DX: M65.4 Radial styloid tenosynovitis [de Quervain] (principal)
CPT/HCPCS: 99202

== ENCOUNTER → 2021-07-01 | Outpatient (CLI) | payer MEDICARE, MEDICAID ==
[~2021-07-01] MED LIST changes: +CYCL10TA25 PO
--- NOTE | 2021-07-01 14:46 | Diagnostic Imaging Report ---
History: Pain in the right leg COMPARISON: None FINDINGS: Ankle-brachial indices were obtained of the bilateral lower extremities. The right ankle-brachial index measures 1.25. The left ankle-brachial index measures 1.39. The right toe brachial index is 0.38. The left toe brachial index is 0.89. IMPRESSION:. Ankle-brachial indices are within normal limits bilaterally. The right toe brachial index is low, concerning for peripheral arterial disease. Dictated by: Dictated on workstation # [id number]
== END ==
LOC: RAD 11:54
PROVIDERS: ATTEND Family Medicine
DX: M79.604 Pain in right leg (principal); M79.605 Pain in left leg
CPT/HCPCS: 93923

== ENCOUNTER 2021-10-04 22:05 | Inpatient (IN) | payer MEDICARE, MEDICAID ==
[~2021-10-04] VITALS: Ht 167.7 cm; Wt 144.0 kg
[2021-10-04] MEDS ORDERED: NALOXONE 2 MG/2 ML (NARCAN) SYR ONE (22:26)
[2021-10-04] MEDS ORDERED: NS IV 1000 ML 2,000 ML ONE (22:28)
[2021-10-04 22:40] LABS: BASOPHILS % (AUTO) 0 % (0-10); EOSINOPHILS # (AUTO) 0.2 10^3/uL (0.0-0.3); EOSINOPHILS % (AUTO) 2 % (0-10); HEMATOCRIT 42 % (40-54); HEMOGLOBIN 13.9 g/dL (13.3-17.7); LYMPHOCYTES # (AUTO) 1.2 10^3/uL (1.0-4.0); LYMPHOCYTES % (AUTO) 11 % (12-44); MEAN CORPUSCULAR HEMOGLOBIN 32 pg (25-34); MEAN CORPUSCULAR HGB CONC 33 g/dL (32-36); MEAN CORPUSCULAR VOLUME 98 fL (80-99); MEAN PLATELET VOLUME 10.2 fL (9.0-12.2); MONOCYTES # (AUTO) 0.5 10^3/uL (0.0-1.0); MONOCYTES % (AUTO) 5 % (0-12); NEUTROPHILS # (AUTO) 8.9 10^3/uL (1.8-7.8); NEUTROPHILS % (AUTO) 82 % (42-75); PLATELET COUNT 251 10^3/uL (130-400); WHITE BLOOD COUNT 10.8 10^3/uL (4.3-11.0)
[2021-10-04] MEDS ORDERED: NALOXONE 2 MG/2 ML (NARCAN) SYR IV ONE (22:45)
[2021-10-04] MEDS ORDERED: RT-ALBUTEROL SULF 2.5 MG/3 ML PRE-MIX VIAL ONE (22:50)
[2021-10-04 22:54] LABS: ALBUMIN 3.7 GM/DL (3.2-4.5); CHLORIDE 104 MMOL/L (98-107); POTASSIUM 4.3 MMOL/L (3.6-5.0); SODIUM 140 MMOL/L (135-145)
[2021-10-04 22:55] LABS: CALCIUM 9.1 MG/DL (8.5-10.1); PROTHROMBIN TIME PATIENT 13.1 SEC (12.2-14.7)
--- NOTE | 2021-10-04 22:55 | ED General ---
General Stated Complaint: CONFUSION, TROUBLES HEARING Source of Information: Family (girlfriend/) Exam Limitations: Intoxication, Physical Impairments History of Present Illness Date Seen by Provider: Oct 04, 2021 Time Seen by Provider: 22:25 Initial Comments Patient is a 51-year-old male who presents to the emergency department with his significant other chief complaint altered mental status. Significant other states that he was out in the heat quite a lot today, driving around in a non air-conditioned car. He had several 32 ounce sodas they got home approximately an hour prior to arrival and she states that he was becoming more and more somnolent. She states just prior to arrival he was almost unarousable. He has a history of diabetes, hypertension. He has quite prominent exophthalmos bilaterally, I inquired about thyroid disease and she states he is being evaluated for that. She states he recently got over COVID about 2 to 3 weeks ago. They tested negative last . He has had no reported fevers or productive cough. No nausea, vomiting or diarrhea. No problems with urination. He does take chronic narcotics for pain. Once he was more alert after the Narcan which took about 90 seconds to 2 minutes to start having an effect he did state to me that he took only one of his morphine and 1 hydrocodone early this morning. Shortly after the Narcan he started coughing profusely. He vomited several times. I did have him in Trendelenburg when his blood pressure was in the 60s. He was quickly elevated, suction was provided. As of 2332 he is awake, alert, talking in no distress. He has had albuterol breathing treatments x2 and his lungs are much improved. Timing/Duration: 1-3 Hours Severity: Severe Associated Systoms: Malaise ("tired" per girlfriend) Allergies and Home Medications Allergies Coded Allergies: varenicline (Verified Allergy, Mild, N/V, 01/22/19) vortioxetine (Verified Allergy, Mild, Vomiting, 01/22/19) Patient Home Medication List Home Medication List Reviewed: Yes Albuterol Sulfate (Ventolin Hfa) 1 Puff Puff, 2 PUFF INH Q4H PRN for SHORTNESS OF BREATH, (Reported) Entered as Reported by: PRISCA DARBY on 10/05/21 5046 Last Action: Reviewed Alfuzosin HCl (Alfuzosin HCl ER) 10 Mg Tab.er.24h, 10 MG PO HS, (Reported) Entered as Reported by: JUAN RAMON BARTLETT on 09/22/18 1331 Last Action: Reviewed Atorvastatin Calcium (Atorvastatin Calcium) 40 Mg Tablet, 40 MG PO HS, (Reported) Entered as Reported by: PRISCA DARBY on 10/05/211355 Last Action: Continued Bupropion HCl (Bupropion Xl) 150 Mg Tab.er.24h, 150 MG PO DAILY, (Reported) Entered as Reported by: PRISCA DARBY on 10/05/211355 Last Action: Reviewed Dulaglutide (Trulicity) 0.75 Mg/0.5 Ml Pen.injctr, 0.75 MG IJ WED, (Reported) Entered as Reported by: PRISCA DARBY on 10/05/211355 Last Action: Reviewed Escitalopram Oxalate (Escitalopram Oxalate) 10 Mg Tablet, 10 MG PO DAILY, (Reported) Entered as Reported by: ESTELITA MAI on 01/22/19928 Last Action: Reviewed Famotidine (Famotidine) 20 Mg Tablet, 20 MG PO BID, (Reported) Entered as Reported by: PRISCA DARBY on 10/05/211355 Last Action: Reviewed Hydrochlorothiazide (Hydrochlorothiazide) 25 Mg Tablet, 25 MG PO DAILY, (Reported) Entered as Reported by: PRISCA DARBY on 10/05/211355 Last Action: Reviewed Hydrocodone/Acetaminophen (Hydrocodone-Acetamin 5-325 mg) 5 Mg-325 Mg Tablet, 1 EACH PO Q6H PRN for PAIN-MODERATE (5-7), (Reported) Entered as Reported by: JUAN RAMON BARTLETT on 03/05/20 1315 Last Action: Reviewed Hydroxyzine HCl (Hydroxyzine HCl) 50 Mg Tablet, 50 MG PO HS, (Reported) Entered as Reported by: PRISCA DARBY on 10/05/211355 Last Action: Reviewed Ibuprofen (Ibuprofen) 800 Mg Tablet, 800 MG PO Q8H PRN for PAIN-MILD, (Reported) Entered as Reported by: ESTELITA MAI on 01/22/19928 Last Action: Reviewed Lisinopril (Lisinopril) 40 Mg Tablet, 40 MG PO DAILY, (Reported) Entered as Reported by: PRISCA DARBY on 10/05/211355 Last Action: Reviewed Metformin HCl (Metformin HCl) 500 Mg Tablet, 500 MG PO BID, (Reported) Entered as Reported by: ESTELITA MAI on 01/24/18 1210 Last Action: Reviewed Morphine Sulfate (Morphine Sulfate ER) 30 Mg Tablet.er, 30 MG PO Q12H, (Reported) Entered as Reported by: PRISCA DARBY on 10/05/211355 Last Action: Reviewed Paliperidone (Paliperidone ER) 6 Mg Tab.er.24, 12 MG PO DAILY, (Reported) Entered as Reported by: PRISCA DARBY on 10/05/211355 Last Action: Reviewed Pantoprazole Sodium (Pantoprazole Sodium) 40 Mg Tablet.dr, 40 MG PO DAILY, (Reported) Entered as Reported by: ESTELITA MAI on 01/22/19928 Last Action: Continued Pregabalin (Pregabalin) 50 Mg Capsule, 50 MG PO BID, (Reported) Entered as Reported by: PRISCA DARBY on 10/05/211355 Last Action: Reviewed Sennosides/Docusate Sodium (Stimulant Laxative Plus Tablet) 8.6 Mg-50 Mg Tablet, 1 EA PO BID, (Reported) Entered as Reported by: PRISCA DARBY on 10/05/211355 Last Action: Reviewed Discontinued Medications Atorvastatin Calcium (Atorvastatin Calcium) 80 Mg Tablet, 80 MG PO DAILY, (Reported) Discontinued Reason: Duplicate Order Entered as Reported by: ESTELITA MAI on 01/22/19928 Last Action: Discontinued Hydroxyzine HCl (Hydroxyzine HCl) 25 Mg Tablet, 25 MG PO BID, (Reported) Discontinued Reason: Duplicate Order Entered as Reported by: ESTELITA MAI on 01/22/19928 Last Action: Discontinued Liraglutide (Victoza 2-Nagi) 0.6 Mg/0.1 Ml Pen.injctr, 1.2 MG SQ DAILY, (Reported) Discontinued Reason: No Longer Taking Entered as Reported by: ESTELITA MAI on 01/22/19928 Last Action: Discontinued Lisinopril (Lisinopril) 20 Mg Tablet, 20 MG PO DAILY, (Reported) Discontinued Reason: Duplicate Order Entered as Reported by: JUAN RAMON BARTLETT on 03/05/20 1315 Last Action: Discontinued Morphine Sulfate (Ms Contin) 30 Mg Tablet.er, 30 MG PO BID, (Reported) Discontinued Reason: Duplicate Order Entered as Reported by: BANDAR FLOWER on 04/08/16 0822 Last Action: Discontinued Paliperidone (Invega) 6 Mg Tab.er.24, 12 MG PO DAILY, (Reported) Discontinued Reason: Duplicate Order Entered as Reported by: ESTELITA MAI on 01/22/19928 Last Action: Discontinued Pregabalin (Lyrica) 50 Mg Capsule, 50 MG PO TID, (Reported) Discontinued Reason: Duplicate Order Entered as Reported by: JUAN RAMON BARTLETT on 09/22/18 1331 Last Action: Discontinued Sucralfate (Sucralfate) 1 Gm Tablet, 1 GM PO QID, (Reported) Discontinued Reason: No Longer Taking Entered as Reported by: ESTELITA MAI on 01/22/19928 Last Action: Discontinued Trazodone HCl (Trazodone HCl) 150 Mg Tablet, 150 MG PO HS, (Reported) Discontinued Reason: No Longer Taking Entered as Reported by: ESTELITA MAI on 01/22/19928 Last Action: Discontinued Review of Systems Review of Systems Constitutional: see HPI unable to obtain from patient at presentation secondary to altered mental status Past Dhblttu-Cnbdkv-Fvyvyk Hx Immunizations Up To Date Tetanus Booster (TDap): Less than 5yrs Seasonal Allergies Seasonal Allergies: Yes Past Medical History Surgeries: Yes (RIGHT SHOULDER REPAIR x2, GASTRIC SLEEVE) Respiratory: Yes Asthma, Sleep Apnea, COPD Currently Using CPAP: Yes Currently Using BIPAP: No Cardiac: Yes (CHF) Angina, Deep Vein Thrombosis, High Cholesterol, Hypertension Neurological: Yes Neuropathy Reproductive Disorders: No Sexually Transmitted Disease: No HIV/AIDS: No Genitourinary: No Gastrointestinal: Yes (BLOOD IN STOOLS) Gastroesophageal Reflux, Polyps Musculoskeletal: Yes (CHRONIC LEG PAINS) Arthritis Endocrine: Yes Diabetes, Non-Insulin dep HEENT: No (dentures, GLASSES) Loss of Vision: Denies Hearing Impairment: Denies Cancer: No Psychosocial: Yes Anxiety, Depression Integumentary: No Blood Disorders: No Adverse Reaction/Blood Tranf: No (N/A) Family Medical History Colon cancer Cancer, Diabetes Physical Exam Vital Signs Vital Signs - First Documented 10/04/21 22:13 Temp 36.2 Pulse 72 Resp 13 B/P (MAP) 70/46 (54) Pulse Ox 90 O2 Delivery OxyMask O2 Flow Rate 10.00 Capillary Refill : Height, Weight, BMI Height: 5'6.00" Weight: 293lbs. 0.0oz. 132.013035ww; 52.35 BMI Method:Stated General Appearance: Other (somnolent and poorly responsive) Eyes: Bilateral Eye Other (prominent exopthalmos biolaterally; pinpoint pupils) HEENT: Other (Dry mucous membranes) Respiratory: Respiratory Distress, Wheezing (Diffuse expiratory wheezes) Cardiovascular: Regular Rate, Rhythm (80s) Gastrointestinal: Soft Extremity: Normal Inspection, Pedal Edema (Trace pedal edema bilateral) Neurologic/Psychiatric: Disoriented, Other (Altered mental status, responsive to voice, will briefly open his eyes, slurs his words, does follow command) Skin: Warm/Dry, Pallor Focused Exam Lactate Level 10/04/21 22:26: Lactic Acid Level 2.84*H Lactic Acid Level Laboratory Tests Test 10/04/21 22:26 Lactic Acid Level 2.84 MMOL/L (0.50-2.00) *H Procedures/Interventions Lumen: triple Central Line Procedure: betadine prep, sterile drapes applied, sterile dressing applied Position: internal jugular (R) Anesthesia: local Complications: none Post Position: sutured, good blood return, position confirmed w/ CXR I hit the vessel twice but was unable to thread the wire. Third attempt successful. good blood return and position confirmed on CXR. no ptx Progress/Results/Core Measures Suspected Sepsis SIRS Temperature: Pulse: Respiratory Rate: Blood Pressure / Mean: 10/04/21 22:26: Lactic Acid Level 2.84*H Laboratory Tests 10/04/21 22:26: INR Comment 1.0 Results/Orders Lab Results Laboratory Tests Test 10/04/21 22:24 10/04/21 22:26 Range/Units Glucometer 138 H 70-110 MG/DL White Blood Count 10.8 4.3-11.0 10^3/uL Red Blood Count 4.29 L 4.30-5.52 10^6/uL Hemoglobin 13.9 13.3-17.7 g/dL Hematocrit 42 40-54 % Mean Corpuscular Volume 98 80-99 fL Mean Corpuscular Hemoglobin 32 25-34 pg Mean Corpuscular Hemoglobin Concent 33 32-36 g/dL Red Cell Distribution Width 14.2 10.0-14.5 % Platelet Count 251 130-400 10^3/uL Mean Platelet Volume 10.2 9.0-12.2 fL Immature Granulocyte % (Auto) 0 % Neutrophils (%) (Auto) 82 H 42-75 % Lymphocytes (%) (Auto) 11 L 12-44 % Monocytes (%) (Auto) 5 0-12 % Eosinophils (%) (Auto) 2 0-10 % Basophils (%) (Auto) 0 0-10 % Neutrophils # (Auto) 8.9 H 1.8-7.8 10^3/uL Lymphocytes # (Auto) 1.2 1.0-4.0 10^3/uL Monocytes # (Auto) 0.5 0.0-1.0 10^3/uL Eosinophils # (Auto) 0.2 0.0-0.3 10^3/uL Basophils # (Auto) 0.0 0.0-0.1 10^3/uL Immature Granulocyte # (Auto) 0.0 0.0-0.1 10^3/uL Prothrombin Time 13.1 12.2-14.7 SEC INR Comment 1.0 0.8-1.4 Activated Partial Thromboplast Time 27 24-35 SEC D-Dimer 1.65 H 0.00-0.49 UG/ML Sodium Level 140 135-145 MMOL/L Potassium Level 4.3 3.6-5.0 MMOL/L Chloride Level 104 98-107 MMOL/L Carbon Dioxide Level 19 L 21-32 MMOL/L Anion Gap 17 H 5-14 MMOL/L Blood Urea Nitrogen 33 H 7-18 MG/DL Creatinine 5.78 H 0.60-1.30 MG/DL Estimat Glomerular Filtration Rate 11 BUN/Creatinine Ratio 6 Glucose Level 128 H 70-105 MG/DL Lactic Acid Level 2.84 *H 0.50-2.00 MMOL/L Calcium Level 9.1 8.5-10.1 MG/DL Corrected Calcium 9.3 8.5-10.1 MG/DL Magnesium Level 2.4 1.6-2.4 MG/DL Total Bilirubin 0.5 0.1-1.0 MG/DL Aspartate Amino Transf (AST/SGOT) 15 5-34 U/L Alanine Aminotransferase (ALT/SGPT) 11 0-55 U/L Alkaline Phosphatase 71 40-136 U/L Total Protein 7.4 6.4-8.2 GM/DL Albumin 3.7 3.2-4.5 GM/DL Thyroid Stimulating Hormone (TSH) 1.63 0.35-4.94 UIU/ML Free Thyroxine 0.99 0.70-1.48 NG/DL Free Triiodothyronine 2.49 1.71-3.71 pg/mL Salicylates Level < 5.0 L 5.0-20.0 MG/DL Acetaminophen Level < 10 L 10-30 UG/ML Serum Alcohol < 10 <10 MG/DL Micro Results Microbiology 10/04/21 Blood Culture - Preliminary, Resulted No growth 10/04/21 Blood Culture - Preliminary, Resulted No growth My Orders Orders - LATANYA BILLINGSLEY MD Naloxone Injection (Narcan Injection) (10/04/21 22:26) Ns Iv 1000 Ml (Sodium Chloride 0.9%) (10/04/21 22:28) Cbc With Automated Diff (10/04/21 22:31) Comprehensive Metabolic Panel (10/04/21 22:31) Blood Culture (10/04/21 22:31) Sputum Culture (10/04/21 22:31) Urinalysis (10/04/21 22:31) Urine Culture (10/04/21 22:31) Protime With Inr (10/04/21 22:31) Partial Thromboplastin Time (10/04/21 22:31) Chest 1 View, Ap/Pa Only (10/04/21 22:31) Ed Iv/Invasive Line Start (10/04/21 22:31) Ed Iv/Invasive Line Start (10/04/21 22:31) Vital Signs Adult Sepsis Patie Q15M (10/04/21 22:31) O2 (10/04/21 22:31) Remove Rings In Anticipation O (10/04/21 22:31) Lactic Acid Analyzer (10/04/21 22:31) Alcohol (10/04/21 22:31) Salicylate (10/04/21 22:31) Acetaminophen (10/04/21 22:31) Drug Screen Stat (Urine) (10/04/21 22:31) Ekg Tracing (10/04/21 22:31) Accucheck Stat ONCE (10/04/21 22:31) Ns Iv 1000 Ml (Sodium Chloride 0.9%) (10/04/21 22:45) Naloxone Injection (Narcan Injection) (10/04/21 22:45) Albuterol Pre-Mix Nebs (Rt) (Proventil (10/04/21 22:50) Ns Iv 1000 Ml (Sodium Chloride 0.9%) (10/04/21 23:30) Ondansetron Injection (Zofran Injectio (10/04/21 23:45) Catheter(Urinary) Insert & Ass 03,15 (10/05/21 00:17) Lidocaine 2% (Urojet) (Xylocaine Urojet) (10/05/21 00:30) Triiodothryonine T3 Free (10/05/21 00:17) Naloxone Injection (Narcan Injection) (10/05/21 00:30) Fibrin Degradation Products (10/04/21 22:26) Magnesium (10/04/21 22:26) Free T4 (Free Thyroxine) (10/04/21 22:26) Thyroid Stimulating Hormone (10/04/21 22:26) Medications Given in ED Vital Signs/I&O 10/04/21 10/04/21 10/04/21 22:13 22:14 23:55 Temp 36.2 Pulse 72 Resp 13 B/P (MAP) 70/46 (54) Pulse Ox 90 94 94 O2 Delivery OxyMask OxyMask Nasal Cannula O2 Flow Rate 10.00 10.00 4.00 Capillary Refill : Progress Note #1: Time: 01:04 Progress Note pressure 119 systolic now - HR 100. rothman in place. urine very concentrated with trace protein. He is alert and talking. [id number] on 4L PNC. ABG pending. Ddimer is a little over 1. he cant have a CTA however, due to his his renal failure. No right heart strain on EKG. Will hold off at this time on central line - I did ask if needed, could we place one - he was agreeable. He has 2 good 18g peripherals now. fluids at 200/hr. Progress Note #2: Time: 05:48 Progress Note I was called to the ICU for central line placement after patient was admitted. Please see procedure note. Diagnostic Imaging Diagonstic Imaging: Xray Plain Films/CT/US/NM/MRI: chest Comments Chest x-rayinterpreted by mepositive fluid balance/increased pulmonary vascular congestion, no infiltrates or effusions noted Critical Care Note Critical Care Start Time: 22:25 Stop Time: 01:00 Total Time (minutes) 40 minutes critical care time in the evaluation and management of this patient with hypoxia, altered mental status and hypotension. Time includes initial evaluation with management of hypotension with aggressive fluid bolusing, supplemental oxygen. Narcan administration. time at the bedside initially a solid 30 minutes. Time also includes review of the medical record, review and interpretation of labs and imaging studies. discussion with admitting provider. Departure Impression Primary Impression: Acute kidney injury Additional Impression: Dehydration Disposition: ADMITTED INPATIENT Condition: Stable Admissions Decision to Admit Reason: Admit from ER (General) Decision to Admit/Date: Oct 04, 2021 Time/Decision to Admit Time: 23:42 Departure-Patient Inst. Referrals: ESTHER CHAVEZ MD (PCP/Family) Primary Care Physician LATANYA BILLINGSLEY MD Oct 04, 2021 22:55
[2021-10-04 22:57] LABS: GLUCOSE 128 MG/DL (70-105); TOTAL PROTEIN 7.4 GM/DL (6.4-8.2)
[2021-10-04 22:58] LABS: CARBON DIOXIDE 19 MMOL/L (21-32)
[2021-10-04 22:59] LABS: BILIRUBIN,TOTAL 0.5 MG/DL (0.1-1.0)
[2021-10-04 23:01] LABS: ALKALINE PHOSPHATASE 71 U/L (40-136); CREATININE SERUM 5.78 MG/DL (0.60-1.30); GFR ESTIMATED 11
[2021-10-04 23:02] LABS: ACETAMINOPHEN < 10 UG/ML (10-30); BUN/CREATININE RATIO 6
[2021-10-04 23:03] LABS: SALICYLATE < 5.0 MG/DL (5.0-20.0)
[2021-10-04 23:04] LABS: ALANINE AMINOTRANSFERASE 11 U/L (0-55)
[2021-10-04] MEDS ORDERED: NS IV 1000 ML 1,000 ML IV SCH (23:30)
[2021-10-04] MEDS ORDERED: ONDANSETRON 4 MG/2 ML (SDV) Z0FRAN IVP ONE (23:45)
[2021-10-04] MEDS: NS IV 1000 ML 1,000 ML IV SCH ×2 (23:51→23:53)
[2021-10-05] MEDS ORDERED: NALOXONE 2 MG/2 ML (NARCAN) SYR IV ONE (00:30)
[2021-10-05] MEDS ORDERED: LIDOCAINE UROJET 2% GEL 10 ML PKG TOP ONE (00:30)
[2021-10-05 00:37] LABS: FIBRIN DEGRADATION PRODUCTS 1.65 UG/ML (0.00-0.49)
[2021-10-05 00:44] LABS: MAGNESIUM 2.4 MG/DL (1.6-2.4)
[2021-10-05 00:46] LABS: CLARITY,URINE CLEAR; COLOR,URINE YELLOW; GLUCOSE, URINE (UA) NEGATIVE (NEGATIVE); KETONES,URINE NEGATIVE (NEGATIVE); LEUKOCYTE ESTERASE ,URINE NEGATIVE (NEGATIVE); NITRITE,URINE NEGATIVE (NEGATIVE); PROTEIN,URINE TRACE (NEGATIVE)
[2021-10-05 00:54] LABS: AMPHETAMINE SCREEN, URINE NEGATIVE (NEGATIVE); BARBITURATE SCREEN URINE NEGATIVE (NEGATIVE); BENZODIAZEPINES SCREEN URINE NEGATIVE (NEGATIVE); CANNABINOID SCREEN, URINE NEGATIVE (NEGATIVE); COCAINE SCREEN URINE NEGATIVE (NEGATIVE); METHADONE STAT NEGATIVE (NEGATIVE); OPIATE SCREEN URINE POSITIVE (NEGATIVE); OXYCODONE STAT NEGATIVE (NEGATIVE); PROPOXYPHENE STAT NEGATIVE (NEGATIVE); TRICYCLIC ANTIDEPRESSANTS SCRE NEGATIVE (NEGATIVE)
[2021-10-05 00:55] LABS: BACTERIA,URINE TRACE /HPF; BILIRUBIN,URINE 1+ (NEGATIVE); RBC,URINE 0-2 /HPF; SQUAMOUS EPITHELIAL CELL,UR 0-2 /HPF
[2021-10-05 01:06] LABS: FREE T4 (FREE THYROXINE) 0.99 NG/DL (0.70-1.48)
[2021-10-05] MEDS ORDERED: ONDANSETRON 4 MG/2 ML (SDV) Z0FRAN IV PRN (02:15)
[2021-10-05] MEDS ORDERED: NALOXONE 0.4 MG/ML 1 ML (NARCAN) VIAL IV PRN (02:15)
[2021-10-05 02:58] LABS: ABG BASE EXCESS -6.5 MMOL/L (-2.5-2.5); ABG OXYGEN SATURATION 93 % (94-100); ABG PCO2 62 MMHG (35-45); ABG PO2 78 MMHG (79-93); ABG TCO2 22.8 MMOL/L (21.0-31.0)
[2021-10-05 02:59] LABS: ABG PH 7.16 (7.37-7.43)
[2021-10-05 03:00] LABS: ALLENS TEST YES-POS; INSPIRED O2 4L; PATIENT TEMP 37.2; VENTILATOR NO
[2021-10-05 03:18] VITALS: BP 89/49
[2021-10-05] MEDS ORDERED: RT-ALBUTEROL SULF 2.5 MG/3 ML PRE-MIX VIAL INH PRN (04:15)
[2021-10-05 04:19] LABS: BASOPHILS % (AUTO) 0 % (0-10); EOSINOPHILS % (AUTO) 0 % (0-10); HEMATOCRIT 38 % (40-54); HEMOGLOBIN 12.1 g/dL (13.3-17.7); LYMPHOCYTES # (AUTO) 0.6 10^3/uL (1.0-4.0); LYMPHOCYTES % (AUTO) 4 % (12-44); MEAN CORPUSCULAR HEMOGLOBIN 32 pg (25-34); MEAN CORPUSCULAR HGB CONC 32 g/dL (32-36); MEAN CORPUSCULAR VOLUME 100 fL (80-99); MEAN PLATELET VOLUME 9.9 fL (9.0-12.2); MONOCYTES # (AUTO) 0.6 10^3/uL (0.0-1.0); MONOCYTES % (AUTO) 4 % (0-12); NEUTROPHILS # (AUTO) 12.9 10^3/uL (1.8-7.8); NEUTROPHILS % (AUTO) 91 % (42-75); PLATELET COUNT 217 10^3/uL (130-400); WHITE BLOOD COUNT 14.2 10^3/uL (4.3-11.0)
[2021-10-05 04:37] LABS: POTASSIUM 4.4 MMOL/L (3.6-5.0)
[2021-10-05 04:38] LABS: CALCIUM 7.9 MG/DL (8.5-10.1); LYMPHOCYTES % (MANUAL) 5 %; MONOCYTES % (MANUAL) 3 %; NEUTROPHILS % (MANUAL) 92 %; RBC MORPH NORMAL
[2021-10-05 04:41] LABS: BILIRUBIN,TOTAL 0.5 MG/DL (0.1-1.0)
[2021-10-05 04:43] LABS: CREATININE SERUM 4.92 MG/DL (0.60-1.30); PHOSPHORUS 6.9 MG/DL (2.3-4.7)
[2021-10-05 04:45] LABS: MAGNESIUM 2.1 MG/DL (1.6-2.4)
[2021-10-05] MEDS ORDERED: CEFEPIME INJECTION 1,000 MG in NS (IVPB) 50 ML IV ONE (05:15)
[2021-10-05 05:27] LABS: ABG BASE EXCESS -6.1 MMOL/L (-2.5-2.5); ABG OXYGEN SATURATION 96 % (94-100); ABG PCO2 60 MMHG (35-45); ABG PO2 85 MMHG (79-93); ABG TCO2 22.9 MMOL/L (21.0-31.0)
[2021-10-05 05:28] LABS: ABG PH 7.18 (7.37-7.43); ALLENS TEST YES-POS
[2021-10-05 05:29] LABS: INSPIRED O2 35%; VENTILATOR NO
--- NOTE | 2021-10-05 05:33 | Diagnostic Imaging Report ---
Indication: Central line placement Portable chest 5:07 AM Right IJ central line tip projects over the SVC. Heart size and pulmonary vascularity are normal. Lungs are clear. IMPRESSION: Central line tip projects over the SVC Dictated by: Dictated on workstation # [id number]
--- NOTE | 2021-10-05 05:51 | Diagnostic Imaging Report ---
Indication: Altered mental status Portable chest 11:23 PM Heart size and pulmonary vascularity are normal. There are no effusions or pneumothoraces. There are no areas of alveolar consolidation in the lungs. IMPRESSION: No acute abnormalities in the chest Dictated by: Dictated on workstation # [id number]
[2021-10-05] MEDS: POTASSIUM CL 10MEQ/50ML IVPB 50 ML IV SCH (06:01)
[2021-10-05] MEDS: NS IV 1000 ML 1,000 ML IV SCH ×5 (06:01→21:32)
[2021-10-05] MEDS: MAGNESIUM 1 GM/100 ML IVPB 100 ML IV SCH (06:08)
[2021-10-05] MEDS: KCL 20 MEQ TAB (K-DUR) PO SCH (06:08)
[2021-10-05 07:31] VITALS: BP 83/61
[2021-10-05] MEDS: RT-ALBUTEROL SULF 2.5 MG/3 ML PRE-MIX VIAL INH SCH ×5 (07:49→21:43)
[2021-10-05] MEDS: NOREPINEPHRINE 8 MG/250 ML 250 ML IV SCH ×3 (08:56→20:41)
[2021-10-05 09:20] LABS: ABG OXYGEN SATURATION 81 % (94-100); ABG PCO2 57 MMHG (35-45); ABG PO2 83 MMHG (79-93); ABG TCO2 22.8 MMOL/L (21.0-31.0)
[2021-10-05 09:24] LABS: ABG PH 7.19 (7.37-7.43)
[2021-10-05 09:25] LABS: INSPIRED O2 35%; VENTILATOR NO
--- NOTE | 2021-10-05 09:25 | Tele-ICU Consult ---
History of Present Illness History of Present Illness Date Seen by Provider: Oct 05, 2021 Time Seen by Provider: 09:24 Date of Admission (Tele-ICU Physician , consultation) Available chart/ vitals / labs / Images reviewed H&P is from ER notes Patient's information available about PMH, Shx, Fhx allergy reviewed inEMR. ROS as per chart and RN report Now in ICU, hemodynamically stable Video assessment done using teleICU camera, rest of exam as per RN Discussed with RN. Consultants: Hospital course: (10/05) Admitted with AMS, YUDI and dehydration. BP remains low despite fluid resuscitation. CVC placed, no pressors , Placed on PIPAP A/P Acute resp falure - on BIPAPA 02/03 35% rr 18 TCV 500 MV 11L - resp acidosis - will follow ABX , adjusr settings - h/o chronic opioids for pain - Narcan given in ER , now is AAO as per RN YUDI ( reportedly was in exposed to heat - received IVF , minimal UO ( with rothman ) - check cpk, repeat labs - check US renal - no NSAIDs Shock - not on tressors , but borderline hypotensive -check trop, bnp, pct - check CVP - check ECHO ( stress test in 2020 - report EF 25 % Recent COvid 3 weeks ago , reportedly negative swab recent outpt - if PCT and BNP negative , will add steoids - follow WIll await ECHO - with elevated ddimer and recent cofis PE is on differential , bit can not do CT with YUDI - will see RV pressire - might need to place on AC empirically Lines : rIJ , (Central Line Necessity Reviewed) Rothman: + OG: Nutrition: Analgesia: Anxiety/ delirium VTE Prophylaxis: hep proph Stress Ulcer Prophylaxis: na Glycemic Control: Plans in collaboration with bedside consultants and IM MDs. Discussed with RN to reach out if any questions or concerns A total of 50 minutes of critical care time was devoted to this patient today, required to treat and/or prevent further deterioration of critical care condition ( as above ) . Allergies and Home Medications Allergies Coded Allergies: varenicline (Verified Allergy, Mild, N/V, 01/22/19) vortioxetine (Verified Allergy, Mild, Vomiting, 01/22/19) Home Medications Alfuzosin HCl 10 Mg Tab.er.24h, 10 MG PO DAILY, (Reported) Atorvastatin Calcium 80 Mg Tablet, 80 MG PO DAILY, (Reported) Escitalopram Oxalate 10 Mg Tablet, 10 MG PO DAILY, (Reported) Hydrocodone/Acetaminophen 1 Each Tablet, 1 EACH PO BID PRN for PAIN-MILD (1-4), (Reported) Hydroxyzine HCl 25 Mg Tablet, 25 MG PO BID, (Reported) Ibuprofen 800 Mg Tablet, 800 MG PO Q8H PRN for PAIN-MILD, (Reported) Liraglutide 0.6 Mg/0.1 Ml Pen.injctr, 1.2 MG SQ DAILY, (Reported) Lisinopril 20 Mg Tablet, 20 MG PO DAILY, (Reported) Metformin HCl 500 Mg Tablet, 500 MG PO BID, (Reported) Morphine Sulfate 30 Mg Tablet.er, 30 MG PO BID, (Reported) Paliperidone 6 Mg Tab.er.24, 12 MG PO DAILY, (Reported) Pantoprazole Sodium 40 Mg Tablet.dr, 40 MG PO DAILY, (Reported) Pregabalin 50 Mg Capsule, 50 MG PO TID, (Reported) Sucralfate 1 Gm Tablet, 1 GM PO QID, (Reported) Trazodone HCl 150 Mg Tablet, 150 MG PO HS, (Reported) Past Medical/Social/Family Hx Patient Social History Tobacco Use?: Yes Tobacco type used: Cigarettes Smoking Status: Current Everyday Smoker Use of E-Cig and/or Vaping dev: No Substance use?: No Alcohol Use?: No Pt stated abuse/neglect: No Immunizations Up To Date Influenza Vaccine Up-to-Date: No; Not Current First/Initial COVID19 Vaccinat: 2020 Second COVID19 Vaccination Phil: 2020 Current Status Advance Directives: No Communicates: Verbally Primary Language: Romanian Preferred Spoken Language: Romanian Is interpretation needed?: No Implanted or Applied Medical D: None Review of Systems Constitutional: see HPI Focused Exam Lactate Level 10/04/21 22:26: Lactic Acid Level 2.84*H 10/05/21 00:50: Lactic Acid Level 1.37 Height, Weight, BMI Height: 5'6.00" Weight: 293lbs. 0.0oz. 132.627808jt; 48.14 BMI Method:Stated Exam Exam Patient acknowledged, consented, and participated in this virtual visit which was conducted using real time audio/video Vital Signs Date Time Temp Pulse Resp B/P (MAP) Pulse Ox O2 Delivery O2 Flow Rate FiO2 10/05/21 09:00 70 13 88/50 97 NIV Bilevel 35.00 10/05/21 08:56 71 80/42 10/05/21 08:02 95 NIV Bilevel 35 10/05/21 08:00 36.1 10/05/21 08:00 75 13 104/68 96 NIV Bilevel 35.00 10/05/21 07:31 68 22 95 35.00 10/05/21 07:03 73 10/05/21 07:00 72 12 83/61 95 NIV Bilevel 35.00 10/05/21 06:00 89 19 103/70 95 NIV Bilevel 35.00 10/05/21 05:00 74 15 87/55 96 NIV Bilevel 35.00 10/05/21 04:00 36.6 10/05/21 04:00 95 NIV Bilevel 35 10/05/21 04:00 84 16 72/45 95 NIV Bilevel 35.00 10/05/21 03:18 84 17 94 35.00 10/05/21 03:00 82 15 95/61 93 NIV Bilevel 35.00 10/05/21 02:31 89 33 112/97 95 Nasal Cannula 6.00 10/05/21 02:00 86 13 109/73 95 NIV Bilevel 35.00 10/05/21 02:00 Nasal Cannula 4.00 10/05/21 01:45 120/67 10/05/21 01:00 88 10/04/21 23:55 94 Nasal Cannula 4.00 10/04/21 22:14 94 OxyMask 10.00 10/04/21 22:13 36.2 72 13 70/46 (54) 90 OxyMask 10.00 I & O 10/05/21 07:00 Output Total 200 ml Balance -200 ml Height & Weight Height: 5'6.00" Weight: 293lbs. 0.0oz. 132.700684jt; 48.14 BMI Method:Stated General Appearance: No Apparent Distress, Other (somnolent and poorly responsive) HEENT: Other (Dry mucous membranes) Respiratory: Respiratory Distress, Wheezing (Diffuse expiratory wheezes) Cardiovascular: Regular Rate, Rhythm (80s) Capillary Refill: Less Than 3 Seconds Extremity: Normal Inspection, Pedal Edema (Trace pedal edema bilateral) Neurologic/Psychiatric: Disoriented, Other (Altered mental status, responsive to voice, will briefly open his eyes, slurs his words, does follow command) Skin: Warm/Dry, Pallor Results Lab Laboratory Tests 10/04/21 22:26 10/05/21 04:06 Assessment/Plan Assessment/Plan 1 JEWELL TIMMONS MD Oct 05, 2021 09:25
[2021-10-05 09:26] LABS: PATIENT TEMP 36.7
[2021-10-05 10:20] VITALS: BP 123/66
[2021-10-05 10:27] LABS: BUN/CREATININE RATIO 8; CALCIUM 7.9 MG/DL (8.5-10.1); CARBON DIOXIDE 19 MMOL/L (21-32); CHLORIDE 110 MMOL/L (98-107); CREATINE KINASE 117 U/L (30-200); CREATININE SERUM 4.31 MG/DL (0.60-1.30); GFR ESTIMATED 16; GLUCOSE 129 MG/DL (70-105); POTASSIUM 4.4 MMOL/L (3.6-5.0); SODIUM 140 MMOL/L (135-145)
--- NOTE | 2021-10-05 10:35 | Diagnostic Imaging Report ---
PROCEDURE: US Renal Bilateral. TECHNIQUE: Multiple real-time grayscale images were obtained over the kidneys in various projections bilaterally. INDICATION: Acute renal failure. FINDINGS: Right kidney is 12.6 cm, left 10.3 cm. Both are unremarkable in size, cortical thickness, and echotexture. There is no hydroureteronephrosis. Bladder was decompressed by Coffman and could not be evaluated. No perinephric or subcapsular collection. IMPRESSION: 1. Unremarkable sonographic appearance of the unobstructed kidneys showing normal volume and normal thickness. 2. Bladder was empty, decompressed by Coffman and therefore could not be evaluated sonographically. Dictated by: Dictated on workstation # [id number]
--- NOTE | 2021-10-05 10:50 | Consultation ---
History of Present Illness History of Present Illness Patient Consulted On(phil/time) 10/05/21 10:49 History of Present Illness Mrs. Shelton is a very pleasant 51 y/o WM with h/o untreated MITCHELL, HTN, DM complicated by neuropathy, CHF, and DVT admitted with AMS found to have hypotension on presentation and YUDI. Pt received volume expansion as supportive care for hypotension and currently on one pressor. Coffman in place and pt is making urine. renal u/s unrevealing. BUCKLE STRINGER meds included lisinopril which has been held. Pt reports using ibuprofen 800mg TID prn for pain for months. Allergies and Home Medications Allergies Coded Allergies: varenicline (Verified Allergy, Mild, N/V, 01/22/19) vortioxetine (Verified Allergy, Mild, Vomiting, 01/22/19) Patient Home Medication List Alfuzosin HCl (Alfuzosin HCl ER) 10 Mg Tab.er.24h, 10 MG PO DAILY, (Reported) Entered as Reported by: JUAN RAMON BARTLETT on 09/22/18 1331 Atorvastatin Calcium (Atorvastatin Calcium) 80 Mg Tablet, 80 MG PO DAILY, (Reported) Entered as Reported by: ESTELITA MAI on 01/22/19 09 Escitalopram Oxalate (Escitalopram Oxalate) 10 Mg Tablet, 10 MG PO DAILY, (Reported) Entered as Reported by: ESTELITA MAI on 01/22/19 09 Hydrocodone/Acetaminophen (Hydrocodone-Acetamin 5-325 mg) 1 Each Tablet, 1 EACH PO BID PRN for PAIN-MILD (1-4), (Reported) Entered as Reported by: JUAN RAMON BARTLETT on 03/05/20 1315 Hydroxyzine HCl (Hydroxyzine HCl) 25 Mg Tablet, 25 MG PO BID, (Reported) Entered as Reported by: ESTELITA MAI on 01/22/19 09 Ibuprofen (Ibuprofen) 800 Mg Tablet, 800 MG PO Q8H PRN for PAIN-MILD, (Reported) Entered as Reported by: ESTELITA MAI on 01/22/19 09 Liraglutide (Victoza 2-Nagi) 0.6 Mg/0.1 Ml Pen.injctr, 1.2 MG SQ DAILY, (Reported) Entered as Reported by: ESTELITA MAI on 01/22/19 09 Lisinopril (Lisinopril) 20 Mg Tablet, 20 MG PO DAILY, (Reported) Entered as Reported by: JUAN RAMON BARTLETT on 03/05/20 1315 Metformin HCl (Metformin HCl) 500 Mg Tablet, 500 MG PO BID, (Reported) Entered as Reported by: ESTELITA MAI on 01/24/18 1210 Morphine Sulfate (Ms Contin) 30 Mg Tablet.er, 30 MG PO BID, (Reported) Entered as Reported by: BANDAR FLOWER on 04/08/16 0822 Paliperidone (Invega) 6 Mg Tab.er.24, 12 MG PO DAILY, (Reported) Entered as Reported by: ESTELITA MAI on 01/22/19 09 Pantoprazole Sodium (Pantoprazole Sodium) 40 Mg Tablet.dr, 40 MG PO DAILY, (Reported) Entered as Reported by: ESTELITA MAI on 01/22/19 09 Pregabalin (Lyrica) 50 Mg Capsule, 50 MG PO TID, (Reported) Entered as Reported by: JUAN RAMON BARTLETT on 09/22/18 1331 Sucralfate (Sucralfate) 1 Gm Tablet, 1 GM PO QID, (Reported) Entered as Reported by: ESTELITA MAI on 01/22/19928 Trazodone HCl (Trazodone HCl) 150 Mg Tablet, 150 MG PO HS, (Reported) Entered as Reported by: ESTELITA MAI on 01/22/19 09 Past Tvvivan-Utfdso-Mfeoyy Hx Patient Social History Tobacco Use?: Yes Tobacco type used: Cigarettes Smoking Status: Current Everyday Smoker Use of E-Cig and/or Vaping dev: No Substance use?: No Alcohol Use?: No Pt feels they are or have been: No Immunizations Up To Date Tetanus Booster (TDap): Less than 5yrs Influenza Vaccine Up-to-Date: No; Not Current First/Initial COVID19 Vaccinat: 2020 Second COVID19 Vaccination Phil: 2020 Third COVID19 Vaccination Date: 2020 COVID Vaccine Corsage Maker: [email or web address] Seasonal Allergies Seasonal Allergies: Yes Past Medical History Surgery/Hospitalization HX: COPD, CHF Surgeries: Yes (RIGHT SHOULDER REPAIR x2, GASTRIC SLEEVE) Respiratory: Yes Asthma, Sleep Apnea, COPD Currently Using CPAP: Yes Currently Using BIPAP: No Cardiac: Yes (CHF) Angina, Deep Vein Thrombosis, High Cholesterol, Hypertension Neurological: Yes Neuropathy Reproductive Disorders: No Sexually Transmitted Disease: No HIV/AIDS: No Genitourinary: No Gastrointestinal: Yes (BLOOD IN STOOLS) Gastroesophageal Reflux, Polyps Musculoskeletal: Yes (CHRONIC LEG PAINS) Arthritis Endocrine: Yes Diabetes, Non-Insulin dep HEENT: No (dentures, GLASSES) Loss of Vision: Denies Hearing Impairment: Denies Cancer: No Psychosocial: Yes Anxiety, Depression Integumentary: No Blood Disorders: No Adverse Reaction/Blood Tranf: No (N/A) Family Medical History Colon cancer Cancer, Diabetes Review of Systems-General Constitutional: see HPI Physical Exam-General Problems Physical Exam Vital Signs Vital Signs - First Documented 10/04/21 10/05/21 22:13 04:00 Temp 36.2 Pulse 72 Resp 13 B/P (MAP) 70/46 (54) Pulse Ox 90 O2 Delivery OxyMask O2 Flow Rate 10.00 FiO2 35 Capillary Refill : Less Than 3 Seconds General Appearance: no apparent distress, obese Respiratory: no respiratory distress, decreased breath sounds Cardiovascular: no edema, no JVD Gastrointestinal: No distended Neurologic/Psychiatric: alert Skin: normal color, warm/dry Assessment/Plan Assessment/Plan Admission Diagnosis/Plan Acute renal failure baseline - unknown, normal in 2014 renal u/s unrevealing YUDI likely due to hypotension/hypovolemia agree with supportive care avoid nephrotoxins including nsaids and contrast Cr improving since admission No indication for dialysis monitor urine outpt closely continue to monitor labs during admission then will need to follow up in our office in [place] in 4 weeks with repeat labs; please ask SW to fax facesheet to my office to obtain clinic appointment Hypotension agree with volume expansion r/o sepsis holding home lisinopril/bp meds monitor orthostatics met acidosis will monitor improving as cr slowly improving may need to start po na bicarb Hypocalemia-actually corrects to normal of 8.7 given hypoalbuminemia Acute on chronic respiratory failure has underlying untreated MITCHELL in addition to suspected OHS (obesity hypoventilation syndrome) agree with bipap for hypercapnea reviewed abg- resp acidosis due to hypercapnea due to above defer to pulm/cc/primary MITCHELL untreated encouraged compliance doesn't currently have a functioning machine at home Thank you for allowing me to participate in the care of this very pleasant. JUSTIN BIRD MD Oct 05, 2021 10:50
--- NOTE | 2021-10-05 11:43 | History & Physical-Hospitalist ---
ANDERSONNIKKYAMASOWMYA DUNLAP 10/05/21 1143: History of Present Illness HPI/Chief Complaint Issac Shelton is a 51-year-old male with past medical history of DM, HTN, chronic opioid use, and COPD who presented to the emergency department with his significant other for chief complaint of altered mental status. Significant other states that he was out in the heat quite a lot prior to symptom onset, driving around in a non air-conditioned car. He had several 32 ounce sodas they got home approximately an hour prior to arrival and she states that he was becoming more and more somnolent. She states just prior to arrival he was almost unarousable. She states he recently got over COVID about 2 to 3 weeks ago. They tested negative last . He has had no reported fevers or productive cough. No nausea, vomiting or diarrhea. No problems with urination. He does take chronic narcotics for pain. In the ED he recieved Narcan which improved his mental status. He reports taking one morphine and one hydrocodone early yesterday morning. This morning he is lying in bed on Bipap. He denies any pain, or confusion, but continues to report shortness of breath. Source: patient, family Exam Limitations: no limitations Date Seen 10/05/21 Time Seen by a Provider: 10:30 Attending Physician Eli Cheema MD PCP Admitting Physician: Katlyn Agee DO Attending Physician: Katlyn Agee DO Referring Physician Date of Admission Oct 05, 2021 at 00:21 Home Medications & Allergies Home Medications Reviewed patient Home Medication Reconciliation performed by pharmacy medication reconciliations bench technician and/or nursing. Patients Allergies have been reviewed. Allergies Allergies Coded Allergies varenicline (Verified Allergy, Mild, N/V, 01/22/19) vortioxetine (Verified Allergy, Mild, Vomiting, 01/22/19) Past Ixbcloe-Pgnsgw-Gmhuar Hx Patient Social History Tobacco Use?: Yes Tobacco type used: Cigarettes Smoking Status: Current Everyday Smoker Use of E-Cig and/or Vaping dev: No Substance use?: No Alcohol Use?: No Pt feels they are or have been: No Immunizations Up To Date Date of Influenza Vaccine: Nov 29, 2011 First/Initial COVID19 Vaccinat: 2020 Second COVID19 Vaccination Phil: 2020 Seasonal Allergies Seasonal Allergies: Yes Current Status Advance Directives: No Communicates: Verbally Primary Language: Azeri Preferred Spoken Language: Azeri Is interpretation needed?: No Implanted or Applied Medical D: None Past Medical History Asthma, Sleep Apnea, COPD Currently Using CPAP: Yes Currently Using BIPAP: No Angina, Deep Vein Thrombosis, High Cholesterol, Hypertension Neuropathy Sexually Transmitted Disease: No HIV/AIDS: No Gastroesophageal Reflux, Polyps Arthritis Diabetes, Non-Insulin dep Loss of Vision: Denies Hearing Impairment: Denies Anxiety, Depression Blood Disorders: No Adverse Reaction/Blood Tranf: No (N/A) Family Medical History Colon cancer Cancer, Diabetes Review of Systems Constitutional: No chills, No diaphoresis EENTM: No hearing loss, No blurred vision Respiratory: No cough Cardiovascular: No edema, No palpitations Gastrointestinal: No abdominal pain Genitourinary: No dysuria, No frequency Skin: No rash Physical Exam Physical Exam Vital Signs Vital Signs - First Documented 10/04/21 10/05/21 22:13 04:00 Temp 36.2 Pulse 72 Resp 13 B/P (MAP) 70/46 (54) Pulse Ox 90 O2 Delivery OxyMask O2 Flow Rate 10.00 FiO2 35 Capillary Refill : Less Than 3 Seconds Height, Weight, BMI Height: 5'6.00" Weight: 293lbs. 0.0oz. [id number]; 48.14 BMI Method:Stated General Appearance: Chronically ill, Obese HEENT: PERRL/EOMI, Other (significant exophthalmos ) Neck: Full Range of Motion, Normal Inspection, Supple Respiratory: Chest Non Tender, Other (Coarse breath sounds bilaterally on Bipap machiene) Cardiovascular: Regular Rate, Rhythm, No JVD Gastrointestinal: Non Tender, Soft Extremity: Normal Capillary Refill Neurologic/Psychiatric: Alert, Other (difficult to assess orientation on bipap machiene) Skin: Normal Color, Warm/Dry Results Results/Procedures Labs Laboratory Tests 10/04/21 22:26 10/05/21 04:06 10/05/21 09:59 Patient resulted labs reviewed. Assessment/Plan Admission Diagnosis Acute respiratory failure Assessment and Plan 1) Acute resp failure - on BIPAP 02/03 35% rr 18 TCV 500 MV 11L - resp acidosis - will follow ABX , adjust settings - h/o chronic opioids for pain - Narcan given in ER , now is AAO as per RN - albuterol prn - BNP, Echo, Troponin, and Procal ordered and pending - Consider starting steroids 2) YUDI - Cr 5.78 on admit, today 4.92 - Nephrology consulted, appreciate recs - Ordered A1C, Urine P/C ratio, urine na, urine eosinophils, UA, and serum uric acid - received IVF , minimal UO (with rothman) - check US renal - no NSAIDs 3) Shock - not on pressors , but borderline hypotensive - check trop, bnp, pct - check CVP - check ECHO ( stress test in 2020 - report EF 25 % ) - Elevated ddimer, awaiting results of echo. PE on differential, consider starting AC Dispo: Continue care in ICU KATLYN AGEE 10/06/21 0535: History of Present Illness HPI/Chief Complaint Pt remains on BiPAP IV fluids initiated Abdominal ultrasound ordered ABG is 7. Nephrology will be consulted Central line will be placed White count is 14.2 Creatinine is 4.9 Chronic opioid use Source: patient, family Exam Limitations: clinical condition Past Rdxlgqv-Covfwz-[place] Hx Patient Social History Marrital Status: Employed/Student: unemployed Smoking Status: Current Everyday Smoker Past Medical History Sleep Apnea High Cholesterol, Hypertension Family Medical History Colon cancer Review of Systems ROS-Unable to Obtain: bipap Constitutional: see HPI Physical Exam Physical Exam General Appearance: Chronically ill, Mild Distress, Obese Eyes: Right Eye Normal Inspection, Right Eye PERRL HEENT: PERRL/EOMI, Normal ENT Inspection, Pharynx Normal, Moist Mucous Membranes Neck: Full Range of Motion, Normal Inspection, Non Tender Respiratory: Chest Non Tender, Lungs Clear, No Accessory Muscle Use, No Respiratory Distress, Decreased Breath Sounds, Other (Coarse breath sounds bilaterally on Bipap machiene) Cardiovascular: Regular Rate, Rhythm, No Edema, No Gallop, No JVD, No Murmur, Normal Peripheral Pulses Gastrointestinal: Normal Bowel Sounds, No Organomegaly, No Pulsatile Mass, Non Tender, Soft Back: Normal Inspection, No CVA Tenderness, No Vertebral Tenderness Extremity: Normal Capillary Refill, Normal Inspection, Normal Range of Motion, Non Tender, No Calf Tenderness, No Pedal Edema Neurologic/Psychiatric: No Motor/Sensory Deficits, Normal Mood/Affect, Disoriented, Other (difficult to assess orientation on bipap machiene) Skin: Normal Color, Warm/Dry Lymphatic: No Adenopathy Assessment/Plan Admission Diagnosis Assessment: Acute respiratory failure requiring biPAP YUDI likely due to ATN Hypotension Obesity Plan: Appreciate Nephrology and eicu Admission Status: Inpatient Order (span 2 midnights) Reason for Inpatient Admission: resp failure Diagnosis/Problems Diagnosis/Problems (1) BiPAP (biphasic positive airway pressure) dependence (2) Metabolic acidosis (3) Respiratory acidosis (4) ATN (acute tubular necrosis) (5) YUDI (acute kidney injury) (6) Dehydration Status: Acute Supervisory-Addendum Brief Verification & Attestation Participated in pt care: history, MDM, physical Personally performed: exam, history, MDM, supervision of care Care discussed with: Medical Student Procedures: n/a Results interpretation: Verified all documentation Verification and Attestation of Medical Student E/M Service A medical student performed and documented this service in my presence. I reviewed and verified all information documented by the medical student and made modifications to such information, when appropriate. I personally performed the physical exam and medical decision making. Katlyn Agee Oct 06, 2021,05:35 SOWMYA GIBSON Oct 05, 2021 11:43 KATLYN AGEE DO Oct 06, 2021 05:35
[2021-10-05 11:44] LABS: CLARITY,URINE CLOUDY; COLOR,URINE ORANGE; GLUCOSE, URINE (UA) NEGATIVE (NEGATIVE); KETONES,URINE NEGATIVE (NEGATIVE); LEUKOCYTE ESTERASE ,URINE TRACE (NEGATIVE); NITRITE,URINE NEGATIVE (NEGATIVE); PH,URINE 5.5 (5-9); PROTEIN,URINE 2+ (NEGATIVE)
[2021-10-05 11:57] LABS: AMORPHOUS SEDIMENT,UR RARE AMOR URATES /LPF; BACTERIA,URINE FEW /HPF; RBC,URINE TNTC /HPF; SQUAMOUS EPITHELIAL CELL,UR RARE /HPF
[2021-10-05 11:58] LABS: BILIRUBIN,URINE 1+ (NEGATIVE)
[2021-10-05 12:00] LABS: HYALINE CASTS, URINE 0-2 /LPF
--- NOTE | 2021-10-05 13:06 | Tele-ICU Progress Note ---
Progress Note 1. labs reviewed - stable Cr and lytes, US renal neg - CPM 2. received a phone call from blood bank technologist - very poor window for ECHO - can not obtain any meaningful images ECHO test will be cancelled - as per blood bank technologist - technically impossible In this view will repeat ddimer and order US LE as proxy for r/o PE ( not stable for VQ now Focused Exam Lactate Level 10/04/21 22:26: Lactic Acid Level 2.84*H 10/05/21 00:50: Lactic Acid Level 1.37 10/05/21 09:59: Lactic Acid Level 0.58 Height, Weight, BMI Height: 5'6.00" Weight: 293lbs. 0.0oz. 132.164362rs; 48.14 BMI Method:Stated Lactic Acid Level Laboratory Tests Test 10/05/21 09:59 Lactic Acid Level 0.58 MMOL/L (0.50-2.00) JEWELL TIMMONS MD Oct 05, 2021 13:06
[2021-10-05] MEDS ORDERED: RT-ALBUINH INH (13:56)
[2021-10-05] MEDS ORDERED: BUPR150T24 PO (13:56)
[2021-10-05] MEDS ORDERED: HYDR25TA4 PO (13:56)
[2021-10-05] MEDS ORDERED: FAMO20TA5 PO (13:56)
[2021-10-05] MEDS ORDERED: PALI6TAB6 PO (13:56)
[2021-10-05] MEDS ORDERED: SENN-117 PO (13:56)
[2021-10-05] MEDS ORDERED: LISI40TA9 PO (13:56)
[2021-10-05] MEDS ORDERED: HYDR50TA76 PO (13:56)
[2021-10-05] MEDS ORDERED: DULA0.75 IJ (13:56)
[2021-10-05] MEDS ORDERED: MORP-69 PO (13:56)
[2021-10-05] MEDS ORDERED: ATOR40TA70 PO (13:56)
[2021-10-05] MEDS ORDERED: PREG50CA65 PO (13:56)
--- NOTE | 2021-10-05 14:20 | Diagnostic Imaging Report ---
INDICATION: Bilateral lower extremity edema COMPARISON: None TECHNIQUE: Duplex, arceo-scale and color-flow imaging of the bilateral lower extremity venous system was performed. FINDINGS: The common femoral vein, superficial femoral vein, profunda femoris, and popliteal veins are normal. These vessels show normal compressibility, color flow, and doppler augmentation. The deep calf veins, although not very well seen, demonstrate no distinct intraluminal thrombus. IMPRESSION: Negative venous Doppler of the bilateral lower extremities. Dictated by: Dictated on workstation # [id number]
[2021-10-05 15:02] VITALS: BP 137/62
[2021-10-05 15:53] LABS: POTASSIUM 4.1 MMOL/L (3.6-5.0)
[2021-10-05 15:54] LABS: CALCIUM 7.9 MG/DL (8.5-10.1)
[2021-10-05 15:59] LABS: CREATININE SERUM 3.48 MG/DL (0.60-1.30)
[2021-10-05 18:53] VITALS: BP 128/84
[2021-10-05] MEDS: CEFEPIME INJECTION 1,000 MG in NS (IVPB) 50 ML IV SCH (21:32)
[2021-10-05 21:43] VITALS: BP 112/72
[2021-10-06 02:19] VITALS: BP 116/72
[2021-10-06] MEDS: RT-ALBUTEROL SULF 2.5 MG/3 ML PRE-MIX VIAL INH SCH ×6 (02:19→21:47)
[2021-10-06 05:32] LABS: BASOPHILS % (AUTO) 0 % (0-10); EOSINOPHILS # (AUTO) 0.1 10^3/uL (0.0-0.3); EOSINOPHILS % (AUTO) 1 % (0-10); HEMATOCRIT 34 % (40-54); HEMOGLOBIN 11.2 g/dL (13.3-17.7); LYMPHOCYTES # (AUTO) 0.8 10^3/uL (1.0-4.0); LYMPHOCYTES % (AUTO) 11 % (12-44); MEAN CORPUSCULAR HEMOGLOBIN 33 pg (25-34); MEAN CORPUSCULAR HGB CONC 33 g/dL (32-36); MEAN CORPUSCULAR VOLUME 99 fL (80-99); MEAN PLATELET VOLUME 10.1 fL (9.0-12.2); MONOCYTES # (AUTO) 0.7 10^3/uL (0.0-1.0); MONOCYTES % (AUTO) 8 % (0-12); NEUTROPHILS # (AUTO) 6.2 10^3/uL (1.8-7.8); NEUTROPHILS % (AUTO) 79 % (42-75); PLATELET COUNT 205 10^3/uL (130-400); WHITE BLOOD COUNT 7.9 10^3/uL (4.3-11.0)
[2021-10-06 05:49] LABS: POTASSIUM 4.2 MMOL/L (3.6-5.0)
[2021-10-06 05:50] LABS: CALCIUM 8.1 MG/DL (8.5-10.1)
[2021-10-06 05:52] LABS: TOTAL PROTEIN 5.9 GM/DL (6.4-8.2)
[2021-10-06 05:53] LABS: BILIRUBIN,TOTAL 0.6 MG/DL (0.1-1.0)
[2021-10-06 05:55] LABS: CREATININE SERUM 2.17 MG/DL (0.60-1.30); PHOSPHORUS 3.5 MG/DL (2.3-4.7)
--- NOTE | 2021-10-06 06:00 | Diagnostic Imaging Report ---
CLINICAL INDICATION: Patient hypoxia. EXAM: Portable chest x-ray upright view. COMPARISON: Chest x-ray dated 10/05/2021. FINDINGS: There is a right IJ central line seen with tip overlying the mid superior vena cava region. Lungs/pleura: Slight low lung volumes are seen with mild curvilinear opacities within both lungs which may be related to atelectasis. There is no definite lung infiltrate. There is no pneumothorax. There is no pleural effusion. Mediastinum: Unremarkable. Pulmonary vasculature: Unremarkable. Heart: Unremarkable. Bones/extrathoracic soft tissue: Unremarkable. IMPRESSION: Suspected mild bibasilar atelectasis. There is no radiographic evidence of acute cardiopulmonary process. Dictated by: Dictated on workstation # [id number]
[2021-10-06] MEDS: MAGNESIUM 1 GM/100 ML IVPB 100 ML IV SCH (07:00)
[2021-10-06] MEDS: KCL 20 MEQ TAB (K-DUR) PO SCH (07:00)
[2021-10-06] MEDS: POTASSIUM CL 10MEQ/50ML IVPB 50 ML IV SCH (07:00)
[2021-10-06 08:10] VITALS: BP 121/74
[2021-10-06] MEDS: CEFEPIME INJECTION 1,000 MG in NS (IVPB) 50 ML IV SCH ×3 (08:23→21:28)
[2021-10-06] MEDS: NS IV 1000 ML 1,000 ML IV SCH ×5 (08:29→19:36)
[2021-10-06] MEDS ORDERED: DexMEDEtomidine 250 ML DRIP 250 ML IV SCH (09:00)
[2021-10-06] MEDS: methylPREDNISolone 125 MG (Solu-MEDROL) VIAL IVP SCH ×3 (09:20→21:29)
--- NOTE | 2021-10-06 09:39 | Consultation-Cardiology ---
HPI-Cardiology Cardiology Consultation: Date of Consultation 10/06/21 Date of Admission 10/04/21 Attending Physician Eli Cheema MD Admitting Physician Admitting Physician: Katlyn Barrera DO Attending Physician: Katlyn Barrera DO Consulting Physician JOHNY MALDONADO JR, MD HPI: Time Seen by a Provider: 09:38 Chief Complaint: REASON FOR CONSULTATION: Acute respiratory failure in the setting of known history of coronary artery disease and cardiomyopathy. I had the pleasure of seeing Issac in the intensive care unit at [facility] in [place], [place] today. He normally follows with one of my partners, Dr. Torres. He has a history of cardiomyopathy that improved and now with chronic heart failure with preserved ejection fraction and mild coronary artery disease. He was brought to the hospital due to altered mental status. Due to his cardiac history, a cardiology consultation was requested. He has been intermittently on BiPAP due to acute on chronic respiratory failure. When I spoke to the patient, he was sitting up in bed and conversant. He felt as though his breathing was back to normal. He denied chest discomfort, paroxysmal nocturnal dyspnea, orthopnea, palpitations, lightheadedness, syncope, or lower extremity edema. Certain portions of this document may have been dictated utilizing voice recognition technology. Inherent to this technology, typographical and grammatical errors may exist. As much as I am diligent to identify and correct these mistakes, some errors may remain in the document. Review of Systems-Cardiology Review of Systems Other comments Review of 10 organ systems is as per the history of present illness, otherwise negative. RXS-[id number]-Nherog Hx Patient Social History Marrital Status: Employed/Student: unemployed Smoking Status: Current Everyday Smoker 2nd Hand Smoke Exposure: Yes Have you traveled recently?: No Alcohol Use?: No Pt feels they are or have been: No Tobacco type used: Cigarettes Immunizations Up To Date Tetanus Booster (TDap): Less than 5yrs Date of Influenza Vaccine: Nov 29, 2011 Past Medical History PMH As described under Assessment. Family Medical History Family History: Colon cancer Allergies and Home Medications Allergies Coded Allergies: varenicline (Verified Allergy, Mild, N/V, 01/22/19) vortioxetine (Verified Allergy, Mild, Vomiting, 01/22/19) Patient Home Medication List Home Medication List Reviewed: Yes Albuterol Sulfate (Ventolin Hfa) 1 Puff Puff, 2 PUFF INH Q4H PRN for SHORTNESS OF BREATH, (Reported) Entered as Reported by: PRISCA DARBY on 10/05/211355 Last Action: Reviewed Alfuzosin HCl (Alfuzosin HCl ER) 10 Mg Tab.er.24h, 10 MG PO HS, (Reported) Entered as Reported by: JUAN RAMON BARTLETT on 09/22/18 1331 Last Action: Reviewed Atorvastatin Calcium (Atorvastatin Calcium) 40 Mg Tablet, 40 MG PO HS, (Reported) Entered as Reported by: PRISCA DARBY on 10/05/211355 Last Action: Reviewed Bupropion HCl (Bupropion Xl) 150 Mg Tab.er.24h, 150 MG PO DAILY, (Reported) Entered as Reported by: PRISCA DARBY on 10/05/211355 Last Action: Reviewed Dulaglutide (Trulicity) 0.75 Mg/0.5 Ml Pen.injctr, 0.75 MG IJ WED, (Reported) Entered as Reported by: PRISCA DARBY on 10/05/211355 Last Action: Reviewed Escitalopram Oxalate (Escitalopram Oxalate) 10 Mg Tablet, 10 MG PO DAILY, (Reported) Entered as Reported by: ESTELITA MAI on 01/22/19 0931 Last Action: Reviewed Famotidine (Famotidine) 20 Mg Tablet, 20 MG PO BID, (Reported) Entered as Reported by: PRISCA DARBY on 10/05/211355 Last Action: Reviewed Hydrochlorothiazide (Hydrochlorothiazide) 25 Mg Tablet, 25 MG PO DAILY, (Reported) Entered as Reported by: PRISCA DARBY on 10/05/211355 Last Action: Reviewed Hydrocodone/Acetaminophen (Hydrocodone-Acetamin 5-325 mg) 5 Mg-325 Mg Tablet, 1 EACH PO Q6H PRN for PAIN-MODERATE (5-7), (Reported) Entered as Reported by: JUAN RAMON BARTLETT on 03/05/20 1315 Last Action: Reviewed Hydroxyzine HCl (Hydroxyzine HCl) 50 Mg Tablet, 50 MG PO HS, (Reported) Entered as Reported by: PRISCA DARBY on 10/05/211355 Last Action: Reviewed Ibuprofen (Ibuprofen) 800 Mg Tablet, 800 MG PO Q8H PRN for PAIN-MILD, (Reported) Entered as Reported by: ESTELITA MAI on 01/22/19928 Last Action: Reviewed Lisinopril (Lisinopril) 40 Mg Tablet, 40 MG PO DAILY, (Reported) Entered as Reported by: PRISCA DARBY on 10/05/211355 Last Action: Reviewed Metformin HCl (Metformin HCl) 500 Mg Tablet, 500 MG PO BID, (Reported) Entered as Reported by: ESTELITA MAI on 01/24/18 1210 Last Action: Reviewed Morphine Sulfate (Morphine Sulfate ER) 30 Mg Tablet.er, 30 MG PO Q12H, (Reported) Entered as Reported by: PRISCA DARBY on 10/05/211355 Last Action: Reviewed Paliperidone (Paliperidone ER) 6 Mg Tab.er.24, 12 MG PO DAILY, (Reported) Entered as Reported by: PRISCA DARBY on 10/05/211355 Last Action: Reviewed Pantoprazole Sodium (Pantoprazole Sodium) 40 Mg Tablet.dr, 40 MG PO DAILY, (Reported) Entered as Reported by: ESTELITA MAI on 01/22/19928 Last Action: Reviewed Pregabalin (Pregabalin) 50 Mg Capsule, 50 MG PO BID, (Reported) Entered as Reported by: PRISCA DARBY on 10/05/211355 Last Action: Reviewed Sennosides/Docusate Sodium (Stimulant Laxative Plus Tablet) 8.6 Mg-50 Mg Tablet, 1 EA PO BID, (Reported) Entered as Reported by: PRISCA DARBY on 10/05/211355 Last Action: Reviewed Discontinued Medications Atorvastatin Calcium (Atorvastatin Calcium) 80 Mg Tablet, 80 MG PO DAILY, (Reported) Discontinued Reason: Duplicate Order Entered as Reported by: ESTELITA MAI on 01/22/19928 Last Action: Discontinued Hydroxyzine HCl (Hydroxyzine HCl) 25 Mg Tablet, 25 MG PO BID, (Reported) Discontinued Reason: Duplicate Order Entered as Reported by: ESTELITA MAI on 01/22/19928 Last Action: Discontinued Liraglutide (Victoza 2-Nagi) 0.6 Mg/0.1 Ml Pen.injctr, 1.2 MG SQ DAILY, (Reported) Discontinued Reason: No Longer Taking Entered as Reported by: ESTELITA MAI on 01/22/19928 Last Action: Discontinued Lisinopril (Lisinopril) 20 Mg Tablet, 20 MG PO DAILY, (Reported) Discontinued Reason: Duplicate Order Entered as Reported by: JUAN RAMON BARTLETT on 03/05/20 1315 Last Action: Discontinued Morphine Sulfate (Ms Contin) 30 Mg Tablet.er, 30 MG PO BID, (Reported) Discontinued Reason: Duplicate Order Entered as Reported by: BANDAR FLOWER on 04/08/16 0822 Last Action: Discontinued Paliperidone (Invega) 6 Mg Tab.er.24, 12 MG PO DAILY, (Reported) Discontinued Reason: Duplicate Order Entered as Reported by: ESTELITA MAI on 01/22/19928 Last Action: Discontinued Pregabalin (Lyrica) 50 Mg Capsule, 50 MG PO TID, (Reported) Discontinued Reason: Duplicate Order Entered as Reported by: JUAN RAMON BARTLETT on 09/22/18 1331 Last Action: Discontinued Sucralfate (Sucralfate) 1 Gm Tablet, 1 GM PO QID, (Reported) Discontinued Reason: No Longer Taking Entered as Reported by: ESTELITA MAI on 01/22/19928 Last Action: Discontinued Trazodone HCl (Trazodone HCl) 150 Mg Tablet, 150 MG PO HS, (Reported) Discontinued Reason: No Longer Taking Entered as Reported by: ESTELITA MAI on 01/22/19928 Last Action: Discontinued Exam Vital Signs Vital Signs Date Time Temp Pulse Resp B/P (MAP) Pulse Ox O2 Delivery O2 Flow Rate FiO2 10/06/21 17:00 65 153/98 99 NIV Bilevel 35.00 10/06/21 16:00 35.8 10/06/21 16:00 35 10/06/21 15:22 26 Physical Exam General: Alert. No acute distress. Well nourished and appears stated age. He is morbidly obese. Eye: Extraocular movements are intact. Conjunctivae are clear. There are no xanthelasma. HENT: Normocephalic. Atraumatic. Carotid pulsations 2/2 without bruits. Neck: Jugular venous pressure does not appear elevated. No thyromegaly appreciated. Respiratory: Lungs have diffuse wheezes. Respirations are non-labored. Breath sounds are equal. Symmetrical chest wall expansion. Cardiovascular: Normal rate. Regular rhythm. Distant S1/S2. No murmur. No gallop. Point of maximal impulse is not appear displaced. Good pulses equal in all extremities. Trace bilateral pretibial edema. Gastrointestinal: Soft. Normal bowel sounds. Skin: Skin turgor is normal. There is no pallor. Musculoskeletal: No kyphosis or scoliosis appreciated. Neurologic: Alert and oriented to person, place, time. Cranial nerves 3-12 appear grossly intact. The patient has good motor tone strength in the upper and lower extremities bilaterally. Psychiatric: Cooperative. Appropriate mood & affect. Labs Laboratory Tests Test 10/05/21 20:51 10/05/21 21:38 10/06/21 05:15 10/06/21 05:29 Range/Units Bedside Blood Gas pH (LAB) 7.159 *L 7.205 *L 7.310-7.410 Bedside Blood Gas pCO2 (LAB) 58.5 H 54.0 H 41.0-51.0 mmHg Bedside Blood Gas pO2 (LAB) 76 L 125 H 80-105 mmHg Bedside Blood Gas HCO3 (LAB) 20.8 L 21.3 L 23.0-28.0 mmol/L POC Blood Gas Total CO2 Calc 23 L 23 L 24-29 mmol/L Bedside Bl Gas O2 Saturation (Calc) 90 L 98 95-98 % Bedside Arterial Blood Base Excess -8 L -7 L -2-3 mmol/L Glucometer 123 H 70-110 MG/DL White Blood Count 7.9 4.3-11.0 10^3/uL Red Blood Count 3.43 L 4.30-5.52 10^6/uL Hemoglobin 11.2 L 13.3-17.7 g/dL Hematocrit 34 L 40-54 % Mean Corpuscular Volume 99 80-99 fL Mean Corpuscular Hemoglobin 33 25-34 pg Mean Corpuscular Hemoglobin Concent 33 32-36 g/dL Red Cell Distribution Width 14.4 10.0-14.5 % Platelet Count 205 130-400 10^3/uL Mean Platelet Volume 10.1 9.0-12.2 fL Immature Granulocyte % (Auto) 1 % Neutrophils (%) (Auto) 79 H 42-75 % Lymphocytes (%) (Auto) 11 L 12-44 % Monocytes (%) (Auto) 8 0-12 % Eosinophils (%) (Auto) 1 0-10 % Basophils (%) (Auto) 0 0-10 % Neutrophils # (Auto) 6.2 1.8-7.8 10^3/uL Lymphocytes # (Auto) 0.8 L 1.0-4.0 10^3/uL Monocytes # (Auto) 0.7 0.0-1.0 10^3/uL Eosinophils # (Auto) 0.1 0.0-0.3 10^3/uL Basophils # (Auto) 0.0 0.0-0.1 10^3/uL Immature Granulocyte # (Auto) 0.0 0.0-0.1 10^3/uL Sodium Level 142 135-145 MMOL/L Potassium Level 4.2 3.6-5.0 MMOL/L Chloride Level 114 H 98-107 MMOL/L Carbon Dioxide Level 20 L 21-32 MMOL/L Anion Gap 8 5-14 MMOL/L Blood Urea Nitrogen 33 H 7-18 MG/DL Creatinine 2.17 H 0.60-1.30 MG/DL Estimat Glomerular Filtration Rate 36 BUN/Creatinine Ratio 15 Glucose Level 93 70-105 MG/DL Calcium Level 8.1 L 8.5-10.1 MG/DL Corrected Calcium 8.9 8.5-10.1 MG/DL Phosphorus Level 3.5 2.3-4.7 MG/DL Magnesium Level 2.0 1.6-2.4 MG/DL Total Bilirubin 0.6 0.1-1.0 MG/DL Aspartate Amino Transf (AST/SGOT) 15 5-34 U/L Alanine Aminotransferase (ALT/SGPT) 8 0-55 U/L Alkaline Phosphatase 63 40-136 U/L Total Protein 5.9 L 6.4-8.2 GM/DL Albumin 3.0 L 3.2-4.5 GM/DL Test 10/06/21 10:57 10/06/21 15:26 10/06/21 15:51 Range/Units Bedside Blood Gas pH (LAB) 7.182 *L 7.203 *L 7.310-7.410 Bedside Blood Gas pCO2 (LAB) 51.3 H 47.2 41.0-51.0 mmHg Bedside Blood Gas pO2 (LAB) 165 H 96 80-105 mmHg Bedside Blood Gas HCO3 (LAB) 19.2 L 18.6 L 23.0-28.0 mmol/L POC Blood Gas Total CO2 Calc 21 L 20 L 24-29 mmol/L Bedside Bl Gas O2 Saturation (Calc) 99 H 96 95-98 % Bedside Arterial Blood Base Excess -9 L -9 L -2-3 mmol/L Glucometer 138 H 70-110 MG/DL Radiology ECHOCARDIOGRAM (10/06/2021): 1. This is a technically difficult study due to poor image quality secondary to patient's body habitus. Intravenous contrast was administered to enhance image quality. 2. Left ventricle: The cavity size is normal. There is severe concentric hypertrophy. Systolic function is normal. The estimated ejection fraction is 60- 65%. Regional wall motion abnormalities cannot be excluded due to poor endocardial definition. Left ventricular diastolic function parameters are normal. 3. Right atrium: The right atrium is mildly dilated with an area of 20 cm. 4. Inferior vena cava: The vessel is dilated. The respirophasic diameter changes are blunted (less than 50%). These findings are consistent with markedly elevated right atrial pressure (15 mmHg). 5. Pulmonary arteries: The estimated pulmonary artery systolic pressure is 59 mmHg assuming a right atrial pressure of 15 mmHg. ECG Impression ECG Comment Electrocardiogram from 10/05 shows sinus rhythm with low voltage in the precordial leads. Diagnosis/Problems Diagnosis/Problems (1) Chronic heart failure with preserved ejection fraction Assessment & Plan: His BNP level is marginally elevated and his chest x-ray does not show any overt pulmonary edema. I suspect the majority of his shortness of breath is related to his underlying lung disease with ongoing cigarette smoking. (2) Cardiomyopathy Assessment & Plan: He had a previous cardiomyopathy that improved. He has been taking lisinopril at home but due to acute kidney injury, this is on hold. I will start him on hydralazine and nitrates. I am not sure he would tolerate beta-kwan due to his severe underlying pulmonary disease. (3) Coronary artery disease without angina pectoris Assessment & Plan: He is not having any angina. For unclear reasons he has not been taking aspirin at home. As above, I am not convinced he would tolerate beta-kwan due to his pulmonary disease. I have ordered his atorvastatin. There are no strong indications for an ischemic evaluation at this time. (4) Primary hypertension Assessment & Plan: As above, hydrochlorothiazide and lisinopril are on hold due to the acute kidney injury. I have started him on hydralazine and nitrates. (5) Mixed hyperlipidemia Assessment & Plan: Continue atorvastatin. (6) Acute on chronic respiratory failure with hypoxia and hypercapnia Assessment & Plan: As above, suspect this is primarily pulmonary in etiology. (7) Morbid obesity Assessment & Plan: He needs to work on weight loss. (8) Cigarette smoker Assessment & Plan: He needs to quit smoking. He has been counseled in this regard on multiple occasions. JOHNY MALDONADO JR, MD Oct 06, 2021 09:39
--- NOTE | 2021-10-06 10:01 | Tele-ICU Progress Note ---
Subjective Date Seen by a Provider: Oct 06, 2021 Time Seen by a Provider: 10:01 Subjective/Events-last exam (Tele-ICU Physician , Progress Note ) Available chart/ vitals / labs / Images reviewed Video assessment done using teleICU camera, rest of exam as per RN Discussed with RN Events overnight : Afebrile hemodynamically stable Respiratory - I/O = Drips: Pressors- no Consultants: Hospital course: (10/05) Admitted with AMS, YUDI and dehydration. BP remains low despite fluid resuscitation. CVC placed, no pressors , Placed on PIPAP 10/06 OFF LEVO A/P Acute resp falure - on BIPAPA 04/03 35% MV 16 - 18 L , but still has elevated CO2 . Patienty is AAO . WIll get him up in a chair and place on O2 NC for 1 h and repeat abg - he might do better in upright position with spontaneous ventilation - resp acidosis - will follow ABX , adjusr settings -steroids IV - h/o chronic opioids for pain - minitor closely YUDI ( reportedly was in exposed to heat - received IVF , Cr improving - US renal - WNL - no NSAIDs Shock - OFF pressors , but borderline hypotensive - PCT borderline - empiric abx started 10/05 - can not get ECHO - poor window as per medical delivery technician -( stress test in 2020 - report EF 25 % Recent COvid 3 weeks ago , reportedly negative swab recent outpt - PCT BNP negative , will add steoids - follow Lines : rIJ , (Central Line Necessity Reviewed) Coffman: + OG: Nutrition: Analgesia: Anxiety/ delirium VTE Prophylaxis: hep proph Stress Ulcer Prophylaxis: na Glycemic Control: Plans in collaboration with bedside consultants and IM MDs. Discussed with RN to reach out if any questions or concerns A total of 50 minutes of critical care time was devoted to this patient today, required to treat and/or prevent further deterioration of critical care condition ( as above ) . Sepsis Event Evaluation Height, Weight, BMI Height: 5'6.00" Weight: 293lbs. 0.0oz. 132.481032gu; 48.14 BMI Method:Stated Focused Exam Lactate Level 10/04/21 22:26: Lactic Acid Level 2.84*H 10/05/21 00:50: Lactic Acid Level 1.37 10/05/21 09:59: Lactic Acid Level 0.58 Exam Exam Patient acknowledged, consented, and participated in this virtual visit which was conducted using real time audio/video Vital Signs Date Time Temp Pulse Resp B/P (MAP) Pulse Ox O2 Delivery O2 Flow Rate FiO2 10/06/21 09:31 100 High Flow N/C 10.00 10/06/21 09:20 89 129/87 10/06/21 09:00 89 129/87 100 NIV Bilevel 35.00 10/06/21 08:10 67 28 97 30.00 10/06/21 08:00 36.1 10/06/21 08:00 66 121/74 97 NIV Bilevel 35.00 10/06/21 07:48 96 NIV Bilevel 35 10/06/21 07:00 77 111/71 100 NIV Bilevel 35.00 10/06/21 06:48 77 10/06/21 06:00 84 17 102/71 99 NIV Bilevel 35.00 10/06/21 05:00 102 123/78 90 NIV Bilevel 35.00 10/06/21 04:00 97 NIV Bilevel 35 10/06/21 04:00 36.3 76 122/67 100 NIV Bilevel 35.00 10/06/21 03:00 79 129/81 99 NIV Bilevel 35.00 10/06/21 02:19 70 27 98 35.00 10/06/21 02:00 76 122/67 100 NIV Bilevel 35.00 10/06/21 01:00 92 140/82 97 NIV Bilevel 35.00 10/06/21 01:00 92 10/06/21 00:00 97 NIV Bilevel 35 10/06/21 00:00 78 27 120/72 100 NIV Bilevel 35.00 10/05/21 23:47 36.9 10/05/21 23:00 81 22 109/78 100 NIV Bilevel 35.00 10/05/21 22:00 83 30 137/70 95 NIV Bilevel 35.00 10/05/21 21:43 89 25 93 35.00 10/05/21 21:00 82 20 112/85 99 NIV Bilevel 35.00 10/05/21 20:41 81 88/79 10/05/21 20:00 96 50 132/70 96 NIV Bilevel 35.00 10/05/21 20:00 97 NIV Bilevel 35 10/05/21 19:00 80 14 141/81 99 NIV Bilevel 35.00 10/05/21 19:00 80 10/05/21 18:53 84 22 98 35.00 10/05/21 18:00 79 12 147/89 98 NIV Bilevel 35.00 10/05/21 17:00 80 25 149/79 98 NIV Bilevel 35.00 10/05/21 16:00 73 11 125/75 98 NIV Bilevel 35.00 10/05/21 16:00 97 NIV Bilevel 35 10/05/21 15:02 67 23 98 35.00 10/05/21 15:00 67 17 146/79 98 NIV Bilevel 35.00 10/05/21 14:00 64 14 120/66 97 NIV Bilevel 35.00 10/05/21 13:00 71 12 115/54 98 NIV Bilevel 35.00 10/05/21 12:24 77 10/05/21 12:00 74 25 97 NIV Bilevel 35.00 10/05/21 11:53 97 NIV Bilevel 35 10/05/21 11:00 72 14 124/70 97 NIV Bilevel 35.00 10/05/21 10:20 67 23 97 35.00 I & O 10/06/21 07:00 Intake Total 2700 ml Output Total 1620 ml Balance 1080 ml Height & Weight Height: 5'6.00" Weight: 293lbs. 0.0oz. 132.901181bb; 48.14 BMI Method:Stated General Appearance: Chronically ill, Mild Distress, Obese HEENT: PERRL/EOMI, Normal ENT Inspection, Pharynx Normal, Moist Mucous Membranes Neck: Full Range of Motion, Normal Inspection, Non Tender Respiratory: Chest Non Tender, Lungs Clear, No Accessory Muscle Use, No Respiratory Distress, Decreased Breath Sounds, Other (Coarse breath sounds bilaterally on Bipap machiene) Cardiovascular: Regular Rate, Rhythm, No Edema, No Gallop, No JVD, No Murmur, Normal Peripheral Pulses Capillary Refill: Less Than 3 Seconds Gastrointestinal: No distended Extremity: Normal Capillary Refill, Normal Inspection, Normal Range of Motion, Non Tender, No Calf Tenderness, No Pedal Edema Neurologic/Psychiatric: No Motor/Sensory Deficits, Normal Mood/Affect, Disoriented, Other (difficult to assess orientation on bipap machiene) Skin: Normal Color, Warm/Dry Lymphatic: No Adenopathy Results Lab Laboratory Tests 10/04/21 22:26 10/05/21 04:06 10/05/21 09:59 10/05/21 15:35 10/06/21 05:15 Assessment/Plan Assessment/Plan 1 JEWELL TIMMONS MD Oct 06, 2021 10:01
--- NOTE | 2021-10-06 10:24 | Progress Note - Hospitalist ---
ANDERSONBjSOWMYA SERRATO 10/06/21 1024: Subjective HPI/CC On Admission Date Seen by Provider: Oct 06, 2021 Time Seen by Provider: 09:30 Pt remains on BiPAP IV fluids initiated Abdominal ultrasound ordered ABG is 7. Nephrology will be consulted Central line will be placed White count is 14.2 Creatinine is 4.9 Chronic opioid use Subjective/Events-last exam Patient reports no acute events overnight. He does not like the BiPap machine. Family reports patient has been angry overnight and this morning. Focused Exam Lactate Level 10/04/21 22:26: Lactic Acid Level 2.84*H 10/05/21 00:50: Lactic Acid Level 1.37 10/05/21 09:59: Lactic Acid Level 0.58 Objective Exam Vital Signs Vital Signs Date Time Temp Pulse Resp B/P (MAP) Pulse Ox O2 Delivery O2 Flow Rate FiO2 10/06/21 09:31 100 High Flow N/C 10.00 10/06/21 09:20 89 129/87 10/06/21 08:10 28 10/06/21 08:00 36.1 10/06/21 07:48 35 Capillary Refill : Less Than 3 Seconds General Appearance: No Apparent Distress, Chronically ill HEENT: Moist Mucous Membranes Neck: Non Tender, Supple Respiratory: Chest Non Tender, Other (Decreased breath sounds, On bipap ) Cardiovascular: Regular Rate, Rhythm, No JVD Gastrointestinal: Normal Bowel Sounds, Non Tender, Soft Extremity: Normal Capillary Refill, Non Tender, No Calf Tenderness Neurologic/Psychiatric: Alert, Other (difficult to assess orientation on Bipap [facility]) Skin: Normal Color, Warm/Dry Lymphatic: No Adenopathy Results/Procedures Lab Laboratory Tests 10/05/21 15:35 10/06/21 05:15 Patient resulted labs reviewed. Assessment/Plan Assessment and Plan Assess & Plan/Chief Complaint 1) Acute resp failure Possible PE - Ddimer elevated, lower extremity US unremarkable - Not stable enough for V/Q scan - Heparin ggt - on BIPAP 02/03 35% rr 18 TCV 500 MV 11L - resp acidosis - will follow ABG, adjust settings - ABG today: 7.205, 54, 125 - Cefepime - Start methylprednisolone - albuterol prn - BNP, Troponin, and Procal unremarkable - Echo unable to be performed - Started Precedex 2) YUDI - Cr 5.78 on admit, today 2.17 - Nephrology consulted, appreciate recs - received IVF , UO of 0.31 mL/kg/hr (with rothman) - US renal unremarkable - no NSAIDs 3) Shock - not on pressors , but borderline hypotensive, improving - trop, bnp, pct unremarkable Dispo: Continue care in ICU KATLYN AGEE DO 10/07/21 0605: Subjective Subjective/Events-last exam Precedex will be added so he can tolerate biPAP Supervisory-Addendum Brief Verification & Attestation Participated in pt care: history, MDM, physical Personally performed: exam, history, MDM, supervision of care Care discussed with: Medical Student Procedures: n/a Results interpretation: Verified all documentation Verification and Attestation of Medical Student E/M Service A medical student performed and documented this service in my presence. I reviewed and verified all information documented by the medical student and made modifications to such information, when appropriate. I personally performed the physical exam and medical decision making. Katlyn Agee Oct 07, 2021,06:04 SOWMYA GIBSON Oct 06, 2021 10:24 KATLYN AGEE DO Oct 07, 2021 06:05
[2021-10-06] MEDS: NOREPINEPHRINE 8 MG/250 ML 250 ML IV SCH ×2 (11:21→21:38)
[2021-10-06 11:53] VITALS: BP 127/78
[2021-10-06 15:22] VITALS: BP 150/103
[2021-10-06] MEDS ORDERED: ISOSORBIDE MONONITRATE 30 MG (IMDUR) TAB PO NR (18:00)
[2021-10-06 18:22] VITALS: BP 159/89
[2021-10-06] MEDS: hydrALAZINE (APRESOLINE) 25 MG TAB PO SCH (21:29)
[2021-10-06 21:47] VITALS: BP 181/106
--- NOTE | 2021-10-06 22:24 | Progress Note ---
Progress Note Assessment/Plan Events since last exam pt is off bipap. able to open eyes to voice and respond appropriately to simple questions. rothman in place with good urine outpt Assessment/Plan Acute renal failure-improving baseline - unknown, normal in 2014 renal u/s unrevealing YUDI likely due to hypotension/hypovolemia agree with supportive care avoid nephrotoxins including nsaids and contrast Cr improving since admission No indication for dialysis monitor urine outpt closely continue to monitor labs during admission then will need to follow up in our office in [place] in 4 weeks with repeat labs; please ask SW to fax facesheet to my office to obtain clinic appointment Hypotension agree with volume expansion r/o sepsis holding home lisinopril/bp meds monitor orthostatics met acidosis will monitor improving as cr slowly improving may need to start po na bicarb Hypocalemia-actually corrects to normal of 8.7 given hypoalbuminemia on 10/06 Acute on chronic respiratory failure has underlying untreated MITCHELL in addition to suspected OHS (obesity hypoventilation syndrome) agree with bipap for hypercapnea reviewed abg- resp acidosis due to hypercapnea due to above defer to pulm/cc/primary MITCHELL untreated encouraged compliance doesn't currently have a functioning machine at home Thank you for allowing me to participate in the care of this very pleasant. Vitals Last set of Vitals Signs Vital Signs Date Time Temp Pulse Resp B/P (MAP) Pulse Ox O2 Delivery O2 Flow Rate FiO2 10/06/21 22:00 73 178/124 98 NIV Bilevel 35.00 10/06/21 21:47 29 10/06/21 20:00 35 10/06/21 19:50 36.3 I&O I&O Intake and Output 10/06/21 00:00 Intake Total 2200 ml Output Total 1020 ml Balance 1180 ml Intake Oral 150 ml IV Total 2050 ml Output Urine Total 1020 ml Daily Weight Change No Labs Laboratory Tests 10/06/21 05:15: White Blood Count 7.9, Red Blood Count 3.43L, Hemoglobin 11.2L, Hematocrit 34L, Mean Corpuscular Volume 99, Mean Corpuscular Hemoglobin 33, Mean Corpuscular Hem oglobin Concent 33, Red Cell Distribution Width 14.4, Platelet Count 205, Mean Platelet Volume 10.1, Immature Granulocyte % (Auto) 1, Neutrophils (%) (Auto) 79H, Lymphocytes (%) (Auto) 11L, Monocytes (%) (Auto) 8, Eosinophils (%) (Auto) 1, Basophils (%) (Auto) 0, Neutrophils # (Auto) 6.2, Lymphocytes # (Auto) 0.8L, Monocytes # (Auto) 0.7, Eosinophils # (Auto) 0.1, Basophils # (Auto) 0.0, Immature Granulocyte # (Auto) 0.0, Sodium Level 142, Potassium Level 4.2, Chloride Level 114H, Carbon Dioxide Level 20L, Anion Gap 8, Blood Urea Nitrogen 33H, Creatinine 2.17H, Estimat Glomerular Filtration Rate 36, BUN/Creatinine Ratio 15, Glucose Level 93, Calcium Level 8.1L, Corrected Calcium 8.9, Phosphorus Level 3.5, Magnesium Level 2.0, Total Bilirubin 0.6, Aspartate Amino Transf (AST/SGOT) 15, Alanine Aminotransferase (ALT/SGPT) 8, Alkaline Phosphatase 63, Total Protein 5.9L, Albumin 3.0L 10/06/21 05:29: Bedside Blood Gas pH (LAB) 7.205*L, Bedside Blood Gas pCO2 (LAB) 54.0H, Bedside Blood Gas pO2 (LAB) 125H, Bedside Blood Gas HCO3 (LAB) 21.3L, POC Blood Gas Total CO2 Calc 23L, Bedside Bl Gas O2 Saturation (Calc) 98, Bedside Arterial Blood Base Excess -7L 10/06/21 10:57: Bedside Blood Gas pH (LAB) 7.182*L, Bedside Blood Gas pCO2 (LAB) 51.3H, Bedside Blood Gas pO2 (LAB) 165H, Bedside Blood Gas HCO3 (LAB) 19.2L, POC Blood Gas Total CO2 Calc 21L, Bedside Bl Gas O2 Saturation (Calc) 99H, Bedside Arterial Blood Base Excess -9L 10/06/21 15:26: Bedside Blood Gas pH (LAB) 7.203*L, Bedside Blood Gas pCO2 (LAB) 47.2, Bedside Blood Gas pO2 (LAB) 96, Bedside Blood Gas HCO3 (LAB) 18.6L, POC Blood Gas Total CO2 Calc 20L, Bedside Bl Gas O2 Saturation (Calc) 96, Bedside Arterial Blood Base Excess -9L 10/06/21 15:51: Glucometer 138H 10/06/21 20:29: Glucometer 139H Microbiology 10/05/21 Urine Culture - Final, Complete NO GROWTH 10/04/21 Blood Culture - Preliminary, Resulted No growth Focused Exam Lactate Level 10/04/21 22:26: Lactic Acid Level 2.84*H 10/05/21 00:50: Lactic Acid Level 1.37 10/05/21 09:59: Lactic Acid Level 0.58 JUSTIN BIRD MD Oct 06, 2021 22:24
[2021-10-06] MEDS: LABETALOL HCL 20 MG/4 ML VIAL IV PRN (23:18)
[2021-10-07] MEDS: NS IV 1000 ML 1,000 ML IV SCH ×3 (01:46→14:23)
[2021-10-07] MEDS: RT-ALBUTEROL SULF 2.5 MG/3 ML PRE-MIX VIAL INH SCH ×6 (01:49→22:25)
[2021-10-07 01:50] VITALS: BP 159/89
[2021-10-07] MEDS: methylPREDNISolone 125 MG (Solu-MEDROL) VIAL IVP SCH ×4 (03:33→21:00)
[2021-10-07 04:51] LABS: BASOPHILS % (AUTO) 0 % (0-10); EOSINOPHILS % (AUTO) 0 % (0-10); HEMATOCRIT 35 % (40-54); HEMOGLOBIN 11.5 g/dL (13.3-17.7); LYMPHOCYTES # (AUTO) 0.5 10^3/uL (1.0-4.0); LYMPHOCYTES % (AUTO) 7 % (12-44); MEAN CORPUSCULAR HEMOGLOBIN 32 pg (25-34); MEAN CORPUSCULAR HGB CONC 33 g/dL (32-36); MEAN CORPUSCULAR VOLUME 98 fL (80-99); MEAN PLATELET VOLUME 10.4 fL (9.0-12.2); MONOCYTES # (AUTO) 0.1 10^3/uL (0.0-1.0); MONOCYTES % (AUTO) 2 % (0-12); NEUTROPHILS # (AUTO) 5.9 10^3/uL (1.8-7.8); NEUTROPHILS % (AUTO) 91 % (42-75); PLATELET COUNT 218 10^3/uL (130-400); WHITE BLOOD COUNT 6.6 10^3/uL (4.3-11.0)
[2021-10-07 05:02] LABS: POTASSIUM 3.9 MMOL/L (3.6-5.0)
[2021-10-07 05:03] LABS: CALCIUM 8.3 MG/DL (8.5-10.1)
[2021-10-07 05:05] LABS: TOTAL PROTEIN 6.1 GM/DL (6.4-8.2)
[2021-10-07 05:07] LABS: BILIRUBIN,TOTAL 0.7 MG/DL (0.1-1.0)
[2021-10-07 05:08] LABS: CREATININE SERUM 1.34 MG/DL (0.60-1.30); PHOSPHORUS 1.8 MG/DL (2.3-4.7)
[2021-10-07] MEDS: MAGNESIUM 1 GM/100 ML IVPB 100 ML IV SCH (05:43)
[2021-10-07] MEDS: POTASSIUM CL 10MEQ/50ML IVPB 50 ML IV SCH (05:43)
[2021-10-07] MEDS: NOREPINEPHRINE 8 MG/250 ML 250 ML IV SCH ×2 (05:44→16:16)
[2021-10-07] MEDS: KCL 20 MEQ TAB (K-DUR) PO SCH (05:44)
[2021-10-07] MEDS: CEFEPIME INJECTION 1,000 MG in NS (IVPB) 50 ML IV SCH ×3 (05:55→21:00)
[2021-10-07] MEDS: hydrALAZINE (APRESOLINE) 25 MG TAB PO SCH ×3 (06:31→21:00)
[2021-10-07 07:23] VITALS: BP 155/103
[2021-10-07] MEDS: NICOTINE 14 MG (NICODERM) PATCH TD SCH (08:28)
[2021-10-07] MEDS: NICOTINE 21 MG (NICODERM) PATCH TD SCH (08:29)
[2021-10-07] MEDS: ISOSORBIDE MONONITRATE 30 MG (IMDUR) TAB PO SCH (09:39)
[2021-10-07] MEDS: PANTOPRAZOLE 40 MG (PROTONIX) TAB PO SCH (09:40)
[2021-10-07] MEDS ORDERED: NON-FORMULARY MEDICATION 1 EA EA (Dulaglutide (Trulicity) 0.75 MG) IJ SCH (10:30)
[2021-10-07] MEDS: morphine ER 30 MG (MS CONTIN) TAB PO SCH ×2 (11:01→21:00)
[2021-10-07] MEDS: PREGABALIN 50 MG (LYRICA) CAP PO SCH ×2 (11:01→21:00)
--- NOTE | 2021-10-07 11:06 | Cardiology Progress Note ---
Subjective Date Seen by Provider: Oct 07, 2021 Time Seen by Provider: 10:00 Subjective/Events-last exam Patient sitting up in bed, on BIPAP. Denies any chest pain Focused Exam Lactate Level 10/04/21 22:26: Lactic Acid Level 2.84*H 10/05/21 00:50: Lactic Acid Level 1.37 10/05/21 09:59: Lactic Acid Level 0.58 Objective-Cardiology Exam Last Set of Vital Signs Vital Signs 10/07/21 10/07/21 10/07/21 10/07/21 10/07/21 10/07/21 08:00 08:08 09:59 12:00 12:47 14:44 Temp 36.7 Pulse 82 Resp 17 B/P (MAP) 144/84 Pulse Ox 100 O2 Delivery Nasal Cannula O2 Flow Rate 5.00 FiO2 30 I&O Intake and Output 10/07/21 00:00 Intake Total 2720 ml Output Total 2000 ml Balance 720 ml Intake Oral 620 ml IV Total 2100 ml Output Urine Total 2000 ml General: Alert, Oriented X3 Lungs: Other (rhonchi) Heart: Regular Rate Abdomen: Normal Bowel Sounds, Soft Skin: No Rashes, No Significant Lesion Neuro: Normal Speech Psych/Mental Status: Mental Status NL, Mood NL Results Lab Laboratory Tests 10/07/21 04:20 A/P-Cardiology Admission Diagnosis Acute on chronic respiratory failure ARF Dehydration Cardiomyopathy Assessment/Plan Acute on chronic respiratory failure, has underlying untreated MITCHELL in addition to suspected obesity hypoventilation syndrome, currently on BiPAP Patient is still having some shortness of breath, reporting improvement. Had a long discussion about possibility of requiring dialysis in the near future. MITCHELL, untreated, currently doesn't have a functioning machine at home. Discussed compliance Acute renal failure, improving. Dr. Taylor following. Renal function are back to baseline, had a long discussion with the patient regarding his long-term plan and the possibility of needing the permanent dialysis. Currently he is back to his baseline. Continue to monitor closely Dehydration, received IVF's, improved. History of recent COVID-19 illness approx 2-3 weeks ago per patient History of cardiomyopathy, noted to have elevated BNP on admission. 2D Echo done 10/06/21 showing severe concentric hypertrophy. Systolic function is normal. The estimated ejection fraction is 60-65%. Regional wall motion abnormalities cannot be excluded due to poor endocardial definition. Left ventricular diastolic function parameters are normal. Right atrium: The right atrium is mildly dilated with an area of 20 cm. Inferior vena cava: The vessel is dilated. The respirophasic diameter changes are blunted (less than 50%). These findings are consistent with markedly elevated right atrial pressure (15 mmHg). Pulmonary arteries: The estimated pulmonary artery systolic pressure is 59 mmHg assuming a right atrial pressure of 15 mmHg. Lexiscan stress test was done on August 20, 2020 showing diaphragmatic attenuation with no significant ischemia or infarction, stress score 2, SDS 0, ejection fraction 52%. Continue to monitor Coronary artery disease, mild disease per cardiac catheterization in 2010, continue to monitor Hypertension, hypotensive on admission. Blood pressure improved, mildly elevated. Started on hydralazine, Isosorbide, labetolol PRN. Will continue to monitor. Hyperlipidemia, lipid profile was done in October 2020 showing total cholesterol 96, HDL 28, triglyceride 94, LDL 50. Continue to monitor Diabetes mellitus, followed and managed by primary care physician. Peripheral neuropathy-maintained on gabapentin as outpatient. ABIs done June 2021 WNL. Morbid obesity, status post gastric sleeve surgery. Gastroesophageal reflux disease, history of gastric sleeve surgery Tobaccoism, patient was educated and instructed on smoking cessation. JORGE ALBERTO HUGGINS Oct 07, 2021 11:06 ARPAN YOUNG MD Oct 07, 2021 15:52
--- NOTE | 2021-10-07 11:42 | Tele-ICU Progress Note ---
Subjective Date Seen by a Provider: Oct 07, 2021 Time Seen by a Provider: 11:42 Subjective/Events-last exam (Tele-ICU Physician , Progress Note ) Available chart/ vitals / labs / Images reviewed Video assessment done using teleICU camera, rest of exam as per RN Discussed with RN Events overnight : Afebrile hemodynamically stable Respiratory - was on bipap I/O = even Drips: Pressors- no Consultants: Hospital course: (10/05) Admitted with AMS, YUDI and dehydration. BP remains low despite fluid resuscitation. CVC placed, no pressors , Placed on PIPAP 10/06 OFF LEVO 10.07 - off BIPAP , on 0.2 10 L prevedex A/P Acute resp falure - Co2 normalaized , will follow on NC , will recheck abg prn - suggest to cont AVAPS or bipap at night -steroids IV - h/o chronic opioids for pain - minitor closely YUDI ( reportedly was in exposed to heat - received IVF , Cr improving - OFF IVF on 10/07 - US renal - WNL - no NSAIDs Shock - OFF pressors - PCT borderline - empiric abx started 10/05 - can not get ECHO - poor window as per controls technician -( stress test in 2020 - report EF 25 % Recent COvid 3 weeks ago , reportedly negative swab recent outpt - PCT BNP negative , will add steoids - follow Lines : Niall , (Central Line Necessity Reviewed) Coffman: + OG: Nutrition: Analgesia: Anxiety/ delirium VTE Prophylaxis: hep proph Stress Ulcer Prophylaxis: na Glycemic Control: Plans in collaboration with bedside consultants and IM MDs. Discussed with RN to reach out if any questions or concerns A total of 31 minutes of critical care time was devoted to this patient today, required to treat and/or prevent further deterioration of critical care condition ( as above ) . Sepsis Event Evaluation Height, Weight, BMI Height: 5'6.00" Weight: 293lbs. 0.0oz. 132.783357gd; 51.55 BMI Method:Stated Focused Exam Lactate Level 10/04/21 22:26: Lactic Acid Level 2.84*H 10/05/21 00:50: Lactic Acid Level 1.37 10/05/21 09:59: Lactic Acid Level 0.58 Exam Exam Patient acknowledged, consented, and participated in this virtual visit which was conducted using real time audio/video Vital Signs Date Time Temp Pulse Resp B/P (MAP) Pulse Ox O2 Delivery O2 Flow Rate FiO2 10/07/21 10:25 High Flow N/C 10.00 10/07/21 09:59 144/84 10/07/21 08:08 97 NIV Bilevel 30 10/07/21 08:00 81 17 167/100 99 NIV Bilevel 30.00 10/07/21 07:23 69 28 99 30.00 10/07/21 07:22 77 10/07/21 07:00 60 187/94 99 NIV Bilevel 30.00 10/07/21 06:00 52 176/103 98 NIV Bilevel 30.00 10/07/21 05:00 58 36 168/98 98 NIV Bilevel 30.00 10/07/21 04:00 98 NIV Bilevel 30 10/07/21 04:00 68 11 178/101 99 NIV Bilevel 30.00 10/07/21 03:00 61 157/98 99 NIV Bilevel 30.00 10/07/21 02:00 58 147/103 97 NIV Bilevel 30.00 10/07/21 01:50 60 28 96 30.00 10/07/21 01:00 70 125/81 99 NIV Bilevel 30.00 10/07/21 01:00 70 10/07/21 00:05 98 NIV Bilevel 35 10/07/21 00:00 62 145/119 99 NIV Bilevel 30.00 10/06/21 23:50 36.4 10/06/21 23:00 76 181/82 99 NIV Bilevel 30.00 10/06/21 22:00 73 178/124 98 NIV Bilevel 30.00 10/06/21 21:47 68 29 100 30.00 10/06/21 21:00 74 132/97 99 NIV Bilevel 30.00 10/06/21 20:00 97 NIV Bilevel 35 10/06/21 20:00 78 172/87 99 NIV Bilevel 30.00 10/06/21 19:50 36.3 10/06/21 19:00 87 10/06/21 19:00 87 154/84 98 NIV Bilevel 30.00 10/06/21 18:22 51 25 97 30.00 10/06/21 18:00 64 156/94 97 NIV Bilevel 35.00 10/06/21 17:00 65 153/98 99 NIV Bilevel 35.00 10/06/21 16:00 35.8 10/06/21 16:00 76 158/96 98 NIV Bilevel 35.00 10/06/21 16:00 96 NIV Bilevel 35 10/06/21 15:22 69 26 96 30.00 10/06/21 15:00 76 150/103 98 NIV Bilevel 35.00 10/06/21 14:04 59 146/88 10/06/21 14:00 60 148/92 97 NIV Bilevel 35.00 10/06/21 13:00 61 143/87 96 NIV Bilevel 35.00 10/06/21 12:56 57 10/06/21 12:00 137/88 97 NIV Bilevel 35.00 10/06/21 12:00 36.5 10/06/21 11:53 67 24 98 30.00 10/06/21 11:50 94 NIV Bilevel 35 I & O 10/07/21 07:00 Intake Total 3470 ml Output Total 1600 ml Balance 1870 ml Height & Weight Height: 5'6.00" Weight: 293lbs. 0.0oz. 132.935240sl; 51.55 BMI Method:Stated General Appearance: Other (somnolent and poorly responsive) HEENT: Other (Dry mucous membranes) Neck: Non Tender, Supple Respiratory: Respiratory Distress, Wheezing (Diffuse expiratory wheezes) Cardiovascular: Regular Rate, Rhythm (80s) Capillary Refill: Less Than 3 Seconds Gastrointestinal: No distended Extremity: Normal Inspection, Pedal Edema (Trace pedal edema bilateral) Neurologic/Psychiatric: Disoriented, Other (Altered mental status, responsive to voice, will briefly open his eyes, slurs his words, does follow command) Skin: Warm/Dry, Pallor Lymphatic: No Adenopathy Results Lab Laboratory Tests 10/05/21 15:35 10/06/21 05:15 10/07/21 04:20 Assessment/Plan Assessment/Plan 1 JEWELL TIMMONS MD Oct 07, 2021 11:42
--- NOTE | 2021-10-07 11:46 | Tele-ICU Progress Note ---
Subjective Date Seen by a Provider: Oct 07, 2021 Time Seen by a Provider: 11:46 Subjective/Events-last exam OMITT PLEASE mistake entry Sepsis Event Evaluation Height, Weight, BMI Height: 5'6.00" Weight: 293lbs. 0.0oz. 132.614299hb; 51.55 BMI Method:Stated Focused Exam Lactate Level 10/04/21 22:26: Lactic Acid Level 2.84*H 10/05/21 00:50: Lactic Acid Level 1.37 10/05/21 09:59: Lactic Acid Level 0.58 Exam Exam Patient acknowledged, consented, and participated in this virtual visit which was conducted using real time audio/video Vital Signs Date Time Temp Pulse Resp B/P (MAP) Pulse Ox O2 Delivery O2 Flow Rate FiO2 10/07/21 10:25 High Flow N/C 10.00 10/07/21 09:59 144/84 10/07/21 08:08 97 NIV Bilevel 30 10/07/21 08:00 81 17 167/100 99 NIV Bilevel 30.00 10/07/21 07:23 69 28 99 30.00 10/07/21 07:22 77 10/07/21 07:00 60 187/94 99 NIV Bilevel 30.00 10/07/21 06:00 52 176/103 98 NIV Bilevel 30.00 10/07/21 05:00 58 36 168/98 98 NIV Bilevel 30.00 10/07/21 04:00 98 NIV Bilevel 30 10/07/21 04:00 68 11 178/101 99 NIV Bilevel 30.00 10/07/21 03:00 61 157/98 99 NIV Bilevel 30.00 10/07/21 02:00 58 147/103 97 NIV Bilevel 30.00 10/07/21 01:50 60 28 96 30.00 10/07/21 01:00 70 125/81 99 NIV Bilevel 30.00 10/07/21 01:00 70 10/07/21 00:05 98 NIV Bilevel 35 10/07/21 00:00 62 145/119 99 NIV Bilevel 30.00 10/06/21 23:50 36.4 10/06/21 23:00 76 181/82 99 NIV Bilevel 30.00 10/06/21 22:00 73 178/124 98 NIV Bilevel 30.00 10/06/21 21:47 68 29 100 30.00 10/06/21 21:00 74 132/97 99 NIV Bilevel 30.00 10/06/21 20:00 97 NIV Bilevel 35 10/06/21 20:00 78 172/87 99 NIV Bilevel 30.00 10/06/21 19:50 36.3 10/06/21 19:00 87 10/06/21 19:00 87 154/84 98 NIV Bilevel 30.00 10/06/21 18:22 51 25 97 30.00 10/06/21 18:00 64 156/94 97 NIV Bilevel 35.00 10/06/21 17:00 65 153/98 99 NIV Bilevel 35.00 10/06/21 16:00 35.8 10/06/21 16:00 76 158/96 98 NIV Bilevel 35.00 10/06/21 16:00 96 NIV Bilevel 35 10/06/21 15:22 69 26 96 30.00 10/06/21 15:00 76 150/103 98 NIV Bilevel 35.00 10/06/21 14:04 59 146/88 10/06/21 14:00 60 148/92 97 NIV Bilevel 35.00 10/06/21 13:00 61 143/87 96 NIV Bilevel 35.00 10/06/21 12:56 57 10/06/21 12:00 137/88 97 NIV Bilevel 35.00 10/06/21 12:00 36.5 10/06/21 11:53 67 24 98 30.00 10/06/21 11:50 94 NIV Bilevel 35 I & O 10/07/21 07:00 Intake Total 3470 ml Output Total 1600 ml Balance 1870 ml Height & Weight Height: 5'6.00" Weight: 293lbs. 0.0oz. 132.590416dd; 51.55 BMI Method:Stated General Appearance: Other (somnolent and poorly responsive) HEENT: Other (Dry mucous membranes) Neck: Non Tender, Supple Respiratory: Respiratory Distress, Wheezing (Diffuse expiratory wheezes) Cardiovascular: Regular Rate, Rhythm (80s) Capillary Refill: Less Than 3 Seconds Gastrointestinal: No distended Extremity: Normal Inspection, Pedal Edema (Trace pedal edema bilateral) Neurologic/Psychiatric: Disoriented, Other (Altered mental status, responsive to voice, will briefly open his eyes, slurs his words, does follow command) Skin: Warm/Dry, Pallor Lymphatic: No Adenopathy Results Lab Laboratory Tests 10/05/21 15:35 10/06/21 05:15 10/07/21 04:20 Assessment/Plan Assessment/Plan ` JEWELL TIMMONS MD Oct 07, 2021 11:46
--- NOTE | 2021-10-07 11:54 | Progress Note - Hospitalist ---
SOWMYA GIBSON 10/07/21 1154: Subjective HPI/CC On Admission Date Seen by Provider: Oct 07, 2021 Time Seen by Provider: 11:00 Pt remains on BiPAP IV fluids initiated Abdominal ultrasound ordered ABG is 7. Nephrology will be consulted Central line will be placed White count is 14.2 Creatinine is 4.9 Chronic opioid use Subjective/Events-last exam Patient reports no acute events overnight. He is agitated this morning and would like the BiPAP removed. He is hungry but denies any pain. Review of Systems General: No Chills, No Night Sweats, No Fatigue HEENT: No Head Aches, No Visual Changes Pulmonary: Dyspnea, Cough Cardiovascular: No: Chest Pain, Palpitations Gastrointestinal: No: Nausea, Vomiting, Abdominal Pain Genitourinary: No Dysuria, No Frequency Neurological: No: Confusion Focused Exam Lactate Level 10/04/21 22:26: Lactic Acid Level 2.84*H 10/05/21 00:50: Lactic Acid Level 1.37 10/05/21 09:59: Lactic Acid Level 0.58 Objective Exam Vital Signs Vital Signs Date Time Temp Pulse Resp B/P (MAP) Pulse Ox O2 Delivery O2 Flow Rate FiO2 10/07/21 12:47 82 10/07/21 12:13 98 High Flow N/C 10.00 10/07/21 12:00 36.7 10/07/21 10:25 10/07/21 08:08 30 10/07/21 08:00 17 Capillary Refill : Less Than 3 Seconds General Appearance: No Apparent Distress HEENT: PERRL/EOMI Neck: Normal Inspection, Supple Respiratory: Chest Non Tender, No Accessory Muscle Use, Other (Coarse breath sounds bilaterally. On BiPAP) Cardiovascular: Regular Rate, Rhythm, No JVD Gastrointestinal: Normal Bowel Sounds, Non Tender, Soft Back: Normal Inspection Extremity: Normal Capillary Refill, Non Tender, No Calf Tenderness Neurologic/Psychiatric: Alert, Oriented x3 Skin: Normal Color, Warm/Dry Results/Procedures Lab Laboratory Tests 10/07/21 04:20 Patient resulted labs reviewed. Assessment/Plan Assessment and Plan Assess & Plan/Chief Complaint 1) Acute resp failure Possible PE - Ddimer elevated, lower extremity US unremarkable - Not stable enough for V/Q scan - Heparin - on BIPAP 02/03 35% rr 18 TCV 500 MV 11L, transition to Vapotherm - resp acidosis - will follow ABG, adjust settings - ABG today: 7.26, 39.3, 95 - Cefepime - methylprednisolone - albuterol prn - BNP, Troponin, and Procal unremarkable - Echo revealed severe concentric hypertrophy with EF 60-65% - Precedex 2) YUDI - Cr 5.78 on admit, today 1.34 - Nephrology consulted, appreciate recs - received IVF , UO of 0.62 mL/kg/hr (with rothman) - remove rothman today - US renal unremarkable - no NSAIDs 3) Shock (resolved) - not on pressors - hypertensive today - trop, bnp, pct unremarkable - Cardiology following, appreciate recs - Started on Hydralazine and Nitrates Dispo: Continue care in ICU KATLYN AGEE DO 10/08/21 0538: Subjective Subjective/Events-last exam DC biPAP DC catheter Improved status Review of Systems General: Fatigue, Malaise Objective Exam General Appearance: No Apparent Distress, WD/WN, Chronically ill Respiratory: Lungs Clear, Decreased Breath Sounds, Other (Coarse breath sounds bilaterally. On BiPAP) Cardiovascular: Regular Rate, Rhythm Supervisory-Addendum Brief Verification & Attestation Participated in pt care: history, MDM, physical Personally performed: exam, history, MDM, supervision of care Care discussed with: Medical Student Procedures: n/a Results interpretation: Verified all documentation Verification and Attestation of Medical Student E/M Service A medical student performed and documented this service in my presence. I reviewed and verified all information documented by the medical student and made modifications to such information, when appropriate. I personally performed the physical exam and medical decision making. Katlyn Agee Oct 08, 2021,05:38 SOWMYA GIBSON Oct 07, 2021 11:54 KATLYN AGEE DO Oct 08, 2021 05:38
[2021-10-07] MEDS ORDERED: NS (IVPB) 50 ML ONE ×2 (13:57→20:53)
[2021-10-07] MEDS: HYDROcodone/APAP 5 MG/325 MG (LORTAB) TAB PO PRN ×2 (15:02→21:05)
[2021-10-07] MEDS: LABETALOL HCL 20 MG/4 ML VIAL IV PRN (16:46)
[2021-10-07] MEDS: TAMSULOSIN 0.4 MG (FLOMAX) CAP PO SCH (17:31)
[2021-10-07] MEDS: hydrOXYzine (VISTARIL/ATARAX) 25 MG capsule/tablet PO SCH (20:59)
[2021-10-07] MEDS: FAMOTIDINE 20 MG (PEPCID) TABLET PO SCH (21:00)
[2021-10-07] MEDS: SENNA W/DOCUSATE (SENOKOT S) TABLET PO SCH (21:00)
[2021-10-07 22:27] VITALS: BP 144/93
[2021-10-08 00:47] VITALS: BP 112/64
[2021-10-08] MEDS: NOREPINEPHRINE 8 MG/250 ML 250 ML IV SCH ×2 (02:50→10:17)
[2021-10-08 03:05] VITALS: BP 120/75
[2021-10-08] MEDS: RT-ALBUTEROL SULF 2.5 MG/3 ML PRE-MIX VIAL INH SCH ×6 (03:05→23:23)
[2021-10-08] MEDS: methylPREDNISolone 125 MG (Solu-MEDROL) VIAL IVP SCH ×2 (03:15→08:27)
[2021-10-08 03:28] LABS: BASOPHILS % (AUTO) 0 % (0-10); EOSINOPHILS % (AUTO) 0 % (0-10); HEMATOCRIT 32 % (40-54); HEMOGLOBIN 10.9 g/dL (13.3-17.7); LYMPHOCYTES # (AUTO) 0.5 10^3/uL (1.0-4.0); LYMPHOCYTES % (AUTO) 5 % (12-44); MEAN CORPUSCULAR HEMOGLOBIN 33 pg (25-34); MEAN CORPUSCULAR HGB CONC 34 g/dL (32-36); MEAN CORPUSCULAR VOLUME 96 fL (80-99); MEAN PLATELET VOLUME 10.1 fL (9.0-12.2); MONOCYTES # (AUTO) 0.5 10^3/uL (0.0-1.0); MONOCYTES % (AUTO) 5 % (0-12); NEUTROPHILS % (AUTO) 90 % (42-75); PLATELET COUNT 203 10^3/uL (130-400); WHITE BLOOD COUNT 11.2 10^3/uL (4.3-11.0)
[2021-10-08 03:51] LABS: ALBUMIN 2.9 GM/DL (3.2-4.5)
[2021-10-08 03:52] LABS: POTASSIUM 3.5 MMOL/L (3.6-5.0)
[2021-10-08 03:53] LABS: CALCIUM 8.2 MG/DL (8.5-10.1)
[2021-10-08 03:54] LABS: TOTAL PROTEIN 5.7 GM/DL (6.4-8.2)
[2021-10-08 03:56] LABS: BILIRUBIN,TOTAL 0.5 MG/DL (0.1-1.0)
[2021-10-08 03:57] LABS: PHOSPHORUS 1.6 MG/DL (2.3-4.7)
[2021-10-08 03:58] LABS: CREATININE SERUM 1.15 MG/DL (0.60-1.30)
[2021-10-08 04:01] LABS: MAGNESIUM 1.9 MG/DL (1.6-2.4)
[2021-10-08] MEDS: hydrALAZINE (APRESOLINE) 25 MG TAB PO SCH ×3 (06:01→22:06)
[2021-10-08] MEDS: CEFEPIME INJECTION 1,000 MG in NS (IVPB) 50 ML IV SCH ×3 (06:01→17:57)
[2021-10-08] MEDS: HYDROcodone/APAP 5 MG/325 MG (LORTAB) TAB PO PRN ×2 (06:16→19:42)
[2021-10-08] MEDS: KCL 20 MEQ TAB (K-DUR) PO SCH (06:32)
[2021-10-08] MEDS: POTASSIUM CL 10MEQ/50ML IVPB 50 ML IV SCH (06:32)
[2021-10-08] MEDS: MAGNESIUM 1 GM/100 ML IVPB 100 ML IV SCH (06:32)
[2021-10-08] MEDS: NICOTINE 21 MG (NICODERM) PATCH TD SCH (08:26)
[2021-10-08] MEDS: NICOTINE 14 MG (NICODERM) PATCH TD SCH (08:26)
[2021-10-08] MEDS: morphine ER 30 MG (MS CONTIN) TAB PO SCH ×2 (08:26→19:22)
[2021-10-08] MEDS: PREGABALIN 50 MG (LYRICA) CAP PO SCH ×2 (08:26→19:42)
[2021-10-08] MEDS: FAMOTIDINE 20 MG (PEPCID) TABLET PO SCH ×2 (08:26→19:23)
[2021-10-08] MEDS: PANTOPRAZOLE 40 MG (PROTONIX) TAB PO SCH (08:26)
[2021-10-08] MEDS: buPROPion SR 150 MG (WELLBUTRIN SR) TAB PO SCH (08:27)
--- NOTE | 2021-10-08 08:31 | Cardiology Progress Note ---
Subjective Date Seen by Provider: Oct 08, 2021 Time Seen by Provider: 08:29 Subjective/Events-last exam Patient is sitting up in bed, c/o productive cough, however, reports dyspnea is slowly improving. Denies any chest pain. Focused Exam Lactate Level Objective-Cardiology Exam Last Set of Vital Signs Vital Signs 10/08/21 10/08/21 10/08/21 04:00 10:00 10:17 Pulse 71 Resp 23 B/P (MAP) 157/79 Pulse Ox 96 O2 Delivery NIV Bilevel O2 Flow Rate 30.00 I&O Intake and Output 10/07/21 23:59 Intake Total 3600 ml Output Total 1550 ml Balance 2050 ml Intake Oral 2600 ml IV Total 1000 ml Output Urine Total 1550 ml General: Alert, Oriented X3 Lungs: Other (rhonchi and wheezing bilaterally) Heart: Regular Rate Abdomen: Normal Bowel Sounds, Soft Skin: No Rashes, No Significant Lesion Neuro: Normal Speech Psych/Mental Status: Mental Status NL, Mood NL Results Lab Laboratory Tests 10/08/21 03:20 A/P-Cardiology Admission Diagnosis Acute on chronic respiratory failure ARF Dehydration Cardiomyopathy Assessment/Plan Acute on chronic respiratory failure, has underlying untreated MITCHELL in addition to suspected obesity hypoventilation syndrome, currently on BiPAP Patient is still having some shortness of breath, reporting improvement. Bibasilar infiltrates noted on most recent CXR, started on ABX. MITCHELL, untreated, currently doesn't have a functioning machine at home. Discussed compliance Acute renal failure, improving. Dr. Taylor following. Renal function are back to baseline, had a long discussion with the patient regarding his long-term plan and the possibility of needing the permanent dialysis. Currently he is back to his baseline. Continue to monitor closely Dehydration, received IVF's, improved. History of recent COVID-19 illness approx 2-3 weeks ago per patient History of cardiomyopathy, noted to have elevated BNP on admission. 2D Echo done 10/06/21 showing severe concentric hypertrophy. Systolic function is normal. The estimated ejection fraction is 60-65%. Regional wall motion abnormalities cannot be excluded due to poor endocardial definition. Left ventricular diastolic function parameters are normal. Right atrium: The right atrium is mildly dilated with an area of 20 cm. Inferior vena cava: The vessel is dilated. The respirophasic diameter changes are blunted (less than 50%). These findings are consistent with markedly elevated right atrial pressure (15 mmHg). Pulmonary arteries: The estimated pulmonary artery systolic pressure is 59 mmHg assuming a right atrial pressure of 15 mmHg. Coronary artery disease, mild disease per cardiac catheterization in 2010, continue to monitor. Lexiscan stress test was done on August 20, 2020 showing diaphragmatic attenuation with no significant ischemia or infarction, stress score 2, SDS 0, ejection fraction 52%. Continue to monitor Hypertension, hypotensive on admission. Blood pressure improved, mildly elevated. Started on hydralazine, Isosorbide, labetolol PRN. Will continue to monitor. Hyperlipidemia, lipid profile was done in October 2020 showing total cholesterol 96, HDL 28, triglyceride 94, LDL 50. Continue to monitor Hypokalemia, replace, continue to monitor. Diabetes mellitus, followed and managed by primary care physician. Peripheral neuropathy-maintained on gabapentin as outpatient. ABIs done June 2021 WNL. Morbid obesity, status post gastric sleeve surgery. Gastroesophageal reflux disease, history of gastric sleeve surgery Tobaccoism, patient was educated and instructed on smoking cessation Supervisory-Addendum Brief Supervisory Addendum Participated in pt care: history, MDM, physical Personally performed: exam, history, MDM Care discussed with: FREDERICK Results interpretation: Verified all documentation Notes: Patient was seen and evaluated with Nicole, examination performed, management plan was discussed, agree with the current scribed note, I made few changes to the note using Italic font Patient was seen at bedside, laying down comfortably Reporting improvement in his breathing Denied any chest pain. No palpitation. Heart rate and blood pressure are better controlled. Continue current medication, okay to transfer to medical floor Monitor renal function closely. NICOLE HUGGINS Oct 08, 2021 08:31 ARPAN YOUNG MD Oct 08, 2021 11:47
[2021-10-08] MEDS: ISOSORBIDE MONONITRATE 30 MG (IMDUR) TAB PO SCH (08:37)
[2021-10-08] MEDS: SENNA W/DOCUSATE (SENOKOT S) TABLET PO SCH ×2 (08:37→19:22)
--- NOTE | 2021-10-08 08:41 | Tele-ICU Progress Note ---
Subjective Date Seen by a Provider: Oct 08, 2021 Time Seen by a Provider: 08:41 Subjective/Events-last exam Available chart/vitals/labs/images reviewed. Video assessment done using telemetry ICU camera, rest of exam as per RN. Discussion with the RN, exam as per RN. Hospital course Patient today has a mild wheezing. BUN/creatinine improving. No chest pain or any significant shortness of breath present. He is in no acute distress. Today's ABG still showed mild metabolic acidosis as well as respiratory acidosis. I have ordered sodium bicarbonate 1 ampoule IV push as well as started on IV fluids with normal saline Sepsis Event Evaluation Height, Weight, BMI Height: 5'6.00" Weight: 293lbs. 0.0oz. [id number]; 51.55 BMI Method:Stated Focused Exam Lactate Level 10/05/21 09:59: Lactic Acid Level 0.58 Exam Exam Patient acknowledged, consented, and participated in this virtual visit which was conducted using real time audio/video Vital Signs Date Time Temp Pulse Resp B/P (MAP) Pulse Ox O2 Delivery O2 Flow Rate FiO2 10/08/21 07:41 98 Nasal Cannula 4.00 10/08/21 07:00 82 10/08/21 07:00 36.6 10/08/21 06:13 Nasal Cannula 5.00 10/08/21 06:00 58 140/78 98 NIV Bilevel 30.00 10/08/21 05:00 52 147/93 97 NIV Bilevel 30.00 10/08/21 04:00 98 NIV Bilevel 30 10/08/21 04:00 36.3 10/08/21 04:00 54 23 155/102 97 NIV Bilevel 30.00 10/08/21 03:05 56 29 96 30.00 10/08/21 03:00 73 122/74 97 NIV Bilevel 30.00 10/08/21 02:00 109/71 97 NIV Bilevel 30.00 10/08/21 01:00 70 10/08/21 01:00 70 131/89 100 NIV Bilevel 30.00 10/08/21 00:47 36.8 85 99 30 10/08/21 00:00 74 130/80 98 NIV Bilevel 30.00 10/08/21 00:00 36.8 10/07/21 23:59 98 NIV Bilevel 30 10/07/21 23:00 80 26 112/70 98 NIV Bilevel 30.00 10/07/21 22:48 NIV Bilevel 30.00 10/07/21 22:27 80 30 98 30.00 10/07/21 22:25 98 Nasal Cannula 4.00 10/07/21 22:00 85 19 112/64 99 High Flow N/C 10.00 10/07/21 21:00 71 24 138/78 98 High Flow N/C 10.00 10/07/21 20:00 98 High Flow N/C 5.00 10/07/21 20:00 36.3 10/07/21 20:00 89 20 123/85 99 High Flow N/C 10.00 10/07/21 19:00 84 10/07/21 19:00 85 21 134/82 98 High Flow N/C 10.00 10/07/21 18:32 98 Nasal Cannula 5.00 10/07/21 18:00 73 8 149/95 97 High Flow N/C 10.00 10/07/21 17:00 77 10 123/65 98 High Flow N/C 10.00 10/07/21 16:14 98 High Flow N/C 5.00 10/07/21 16:00 73 14 165/71 98 High Flow N/C 10.00 10/07/21 15:00 71 145/96 99 High Flow N/C 10.00 10/07/21 14:44 100 Nasal Cannula 5.00 10/07/21 14:00 70 147/97 99 High Flow N/C 10.00 10/07/21 13:00 75 169/100 100 High Flow N/C 10.00 10/07/21 12:47 82 10/07/21 12:13 98 High Flow N/C 10.00 10/07/21 12:00 85 160/89 99 High Flow N/C 10.00 10/07/21 12:00 36.7 10/07/21 11:00 70 165/97 98 High Flow N/C 10.00 10/07/21 10:25 High Flow N/C 10.00 10/07/21 09:59 144/84 I & O 10/08/21 07:00 Intake Total 2900 ml Output Total 1875 ml Balance 1025 ml Height & Weight Height: 5'6.00" Weight: 293lbs. 0.0oz. 132.037000fz; 51.55 BMI Method:Stated General Appearance: No Apparent Distress, WD/WN, Chronically ill HEENT: PERRL/EOMI Neck: Normal Inspection, Supple Respiratory: Lungs Clear, Decreased Breath Sounds, Other (Coarse breath sounds bilaterally. On BiPAP) Cardiovascular: Regular Rate, Rhythm Capillary Refill: Less Than 3 Seconds Gastrointestinal: No distended Extremity: Normal Capillary Refill, Non Tender, No Calf Tenderness Neurologic/Psychiatric: Alert, Oriented x3 Skin: Normal Color, Warm/Dry Lymphatic: No Adenopathy Results Lab Laboratory Tests 10/07/21 04:20 10/08/21 03:20 Assessment/Plan Assessment/Plan 1. Acute kidney injury improving but still has mild metabolic acidosis and res piratory acidosis. 2. Wheezing probably due to underlying COPD 3. Bibasilar atelectasis causing hypoxia but patient on heparin for possible PE. He will undergo VQ scan when stable. 4. Morbid obesity. Recommendations 1. Restart on IV fluids with normal saline at 100 cc/h 2. Sodium bicarbonate 50 mEq IV push ordered 3. Continue bronchodilator therapy 4. Wean oxygen as tolerated 5. DVT prophylaxis. 6. Physical therapy and Occupational Therapy Critical Care: Critically Ill Patient Time spent with patient (mins): 25 MARLIN BARBER MD Oct 08, 2021 08:41
[2021-10-08] MEDS: NICOTINE PATCH REMOVAL TP SCH ×2 (08:43→08:44)
[2021-10-08] MEDS ORDERED: PALIPERIDONE 12 MG PO SCH (09:00)
[2021-10-08] MEDS ORDERED: KCL 20 MEQ TAB (K-DUR) PO ONE (09:00)
--- NOTE | 2021-10-08 09:07 | Diagnostic Imaging Report ---
INDICATION: Chest congestion. Frontal chest obtained at 8:06 a.m. compared to 10/06/2021. FINDINGS: Heart is normal in size. There is mild central vascular congestion. There is no focal infiltrate or pneumothorax or pleural fluid. Right IJ central catheter tip overlies upper SVC. IMPRESSION: Central vascular congestion again noted without new infiltrate or pneumothorax or pleural fluid. Dictated by: Dictated on workstation # [id number]
[2021-10-08] MEDS ORDERED: NS IV 1000 ML 1,000 ML IV SCH (10:00)
[2021-10-08] MEDS ORDERED: SODIUM BICARB 8.4% 50 MEQ/50 ML (ABBOTT) SYR IV NR (10:00)
[2021-10-08] MEDS ORDERED: NS (IVPB) 0 ML ONE (10:52)
[2021-10-08] MEDS ORDERED: PATIENT MAY USE OWN MED,SINGLE MED PO SCH (11:00)
--- NOTE | 2021-10-08 11:31 | Physical Therapy Evaluation ---
PT Evaluation-General Medical Diagnosis Admission Date Oct 05, 2021 at 00:21 Medical Diagnosis: acute resp failure Onset Date: Oct 05, 2021 Therapy Diagnosis Therapy Diagnosis: impaired mobility, strength Height/Weight Height (Feet): 5 Height (Inches): 6.00 Weight (Pounds): 293 Weight (Ounces): 0.0 Precautions Precautions/Isolations: Standard Precautions Referral Physician: Katlyn Barrera DO Reason for Referral: Evaluation/Treatment Medical History Additional Medical History Past Medical History Asthma, Sleep Apnea, COPD Currently Using CPAP: Yes Currently Using BIPAP: No Angina, Deep Vein Thrombosis, High Cholesterol, Hypertension Neuropathy Sexually Transmitted Disease: No HIV/AIDS: No Gastroesophageal Reflux, Polyps Arthritis Diabetes, Non-Insulin dep Loss of Vision: Denies Hearing Impairment: Denies Anxiety, Depression Blood Disorders: No Adverse Reaction/Blood Tranf: No (N/A) Reviewed History: Yes Social History Current Living Status: Spouse Entry Into Home: Ramp Prior Prior Level of Function SCALE: Activities may be completed with or without assistive devices. 9-Hifldevbyx-qzwmkcw completes the activity by him/herself with no assistance from a helper. 5-Set-up or Clean-up Assistance-helper sets up or cleans up; patient completes activity. [place] assists only prior to or following the activity. 4-Supervision or Touching Assistance-helper provides verbal cues and/or touching/steadying and/or contact guard assistance as patient completes activity. Assistance may be provided throughout the activity or intermittently. 3-Partial/Moderate Assistance-helper does LESS THAN HALF the effort. [place] lifts, holds or supports trunk or limbs, but provides less than half the effort. 2-Substantial/Maximal Assistance-helper does MORE THAN HALF the effort. [place] lifts or holds trunk or limbs and provides more than half the effort. 9-Vmvergfok-nubcew does ALL the effort. Patient does none of the effort to complete the activity. Or, the assistance of 2 or more helpers is required for the patient to complete the activity. If activity was not attempted, code reason: 7-Patient Refused. 9-Not Applicable-not attempted and the patient did not perform the activity before the current illness, exacerbation or injury. 10-Not Attempted due to Environmental Limitations-(lack of equipment, weather restraints, etc.). 88-Not Attempted due to Medical Conditions or Safety Concerns. Bed Mobility: 6 Transfers (B,C,W/C): 6 Gait: 6 Stairs: 6 Indoor Mobility (Ambulation): Independent Stairs: Independent PT Evaluation-Current Subjective Patient in bed pre tx, agrees to PT, has no complaints of pain. Pt/Family Goals to be independent at home Objective Patient Orientation: Person, Place, Situation Attachments: Oxygen, IV ROM/Strength ROM Lower Extremities WNL Strength Lower Extremities LLE (hip flexion 3/5, knee flexion 4/5, knee extension 3+/5, dorsiflexion 3+/5), RLE (hip flexion 3/5, knee flexion 4/5, knee extension 3+/5, dorsiflexion 3+/5) Sensory Vision: Functional Hearing: Functional Sensation Right Lower Extremit: Impaired Sensation Left Lower Extremity: Impaired Transfers Roll Left to Right (QC): 6 Lying to Sitting/Side of Bed(Q: 6 Sit to Stand (QC): 4 Chair/Gwe-un-Zlfqp Xfer(QC): 4 Gait Does the Patient Walk?: Yes Mode of Locomotion: Walk Anticipated Mode of Locomotion: Walk Distance: 5' Gait Assistive Device: None Comments/Gait Description slightly unsteady but no LOB, CGA, impulsive Balance Sitting Static: Normal Sitting Dynamic: Normal Standing Static: Fair Standing Dynamic: Poor Treatment BLE seated exercises x20 (AP, LAQ) Assessment/Needs Patient in recliner post tx with nurse call, phone, tray, all needs met. Ed delgado has impaired mobility and strength but was able to get to recliner with only CGA. Rehab Potential: Fair PT Restaurant Line Cook Goals Skilled Nursing Goals PT Restaurant Line Cook Goals Time Frame: Oct 15, 2021 Roll Left & Right (QC): 6 Sit to Lying (QC): 6 Lying-Sitting on Side/Bed(QC): 6 Sit to Stand (QC): 6 Chair/Bey-je-Mjtff Xfer(QC): 6 Walk 10 feet (QC): 6 Walk 50ft with 2 Turns (QC): 6 PT Plan Problem List Problem List: Activity Tolerance, Functional Strength, Safety, Balance, Gait, Transfer, Bed Mobility, ROM Treatment/Plan Treatment Plan: Continue Plan of Care Treatment Plan: Bed Mobility, Education, Functional Activity Phan, Functional Strength, Gait, Safety, Therapeutic Exercise, Transfers Treatment Duration: Oct 15, 2021 Frequency: 6 times per week Estimated Hrs Per Day: .25 hour per day Patient and/or Family Agrees t: Yes Safety Risks/Education Patient Education: Gait Training, Transfer Techniques, Correct Positioning, Safety Issues Teaching Recipient: Patient Teaching Methods: Demonstration, Discussion Response to Teaching: Reinforcement Needed Discharge Recommendations Plan Patient will perform bed mobility and transfer training, balance and endurance training,functional strengthening, stair training, gait training, and education, to improve functional mobility and independence at home. Therapy Discharge Recommendati: Home & Family, Post Acute PT Time/GCodes Time In: 1108 Time Out: 1120 Total Billed Treatment Time: 12 Total Billed Treatment 1 visit EBENEZER 12' DERECK BARROSO PT Oct 08, 2021 11:31
--- NOTE | 2021-10-08 11:33 | Occupational Therapy Eval ---
OT Evaluation-General/PLF Medical Diagnosis Admission Date Oct 05, 2021 at 00:21 Medical Diagnosis: Acute respiratory failure Onset Date: Oct 05, 2021 Therapy Diagnosis Therapy Diagnosis: reduced adl status Height/Weight Height (Feet): 5 Height (Inches): 6.00 Weight (Pounds): 293 Weight (Ounces): 0.0 Precautions Precautions/Isolations: Fall Prevention, Standard Precautions Referral Referral Reason: Evaluation/Treatment Medical History Pertinent Medical History: COPD, DM, HTN Additional Medical History chronic opiod use Current History Pt presented to hospital with AMS. Per patient, he lives with his and roommate in a trailer home, ramp entrance. He verbalizes that he was indep with adls and that his performs all iadls. Pt denies using any AD or supplemental oxygen at baseline. Reviewed History: Yes Social History Home: Single Level (trailer) Current Living Status: Spouse ADL-Prior Level of Function SCALE: Activities may be completed with or without assistive devices. 8-Xtikivhchi-pdqashv completes the activity by him/herself with no assistance from a helper. 5-Set-up or Clean-up Assistance-helper sets up or cleans up; patient completes activity. [place] assists only prior to or following the activity. 4-Supervision or Touching Assistance-helper provides verbal cues and/or touchi ng/steadying and/or contact guard assistance as patient completes activity. Assistance may be provided throughout the activity or intermittently. 3-Partial/Moderate Assistance-helper does LESS THAN HALF the effort. [place] lifts, holds or supports trunk or limbs, but provides less than half the effort. 2-Substantial/Maximal Assistance-helper does MORE THAN HALF the effort. [place] lifts or holds trunk or limbs and provides more than half the effort. 6-Xmeobbkmo-fwvlxo does ALL the effort. Patient does none of the effort to complete the activity. Or, the assistance of 2 or more helpers is required for the patient to complete the activity. If activity was not attempted, code reason: 7-Patient Refused. 9-Not Applicable-not attempted and the patient did not perform the activity before the current illness, exacerbation or injury. 10-Not Attempted due to Environmental Limitations-(lack of equipment, weather restraints, etc.). 88-Not Attempted due to Medical Conditions or Safety Concerns. Self Care: Independent Functional Cognition: Needed Some Help DME/Equipment: Bath Chair, Tub/Shower Drive Self: Yes OT Current Status Subjective Pt denies pain, agreeable to evaluation. Appearance Pt left sitting in recliner, all needs within reach at therapist departure. Mental Status/Objective Patient Orientation: Person, Place Attachments: IV, Oxygen, Telemetry Current Dentures/Partials: No Hand Dominance: Left Upper Extremity ROM WNL Upper Extremity Strength 3+/5 grossly ADL-Treatment Lower Body Dressing (QC): 2 (per clinical judgment) On/Off Footwear (QC): 1 Pt supine in bed at therapy arrival. Min a to safely transfer to EOB secondary to impulsive behavior and patient almost sliding off edge of bed. When given socks to don, pt attempts to bring LE onto side of bed. Mild unsteadiness observed, again needing min a for safety. After 3 failed attempts to lift leg onto bed, OT donned socks for patient. He stood impulsively without assist. Mild unsteadiness. CGA for safety as he ambulated short distance to chair. Prior to sitting, boxers noted to be below patient's hips. Max a to pull up completely in the back. Education OT Patient Education: Correct positioning, Energy conservation, Modified ADL techniques, Progress toward Goal/Update tx plan, Purpose of tx/functional ac tivities, Reviewed precautions, Safety issues, Transfer techniques Teaching Recipient: Patient Teaching Methods: Discussion Response to Teaching: Verbalize Understanding, Reinforcement Needed OT Healthcare Administrator Goals Healthcare Administrator Goals Time Frame: Oct 22, 2021 Eating (QC): 5 Oral Hygiene (QC): 5 Toileting Hygiene (QC): 4 Shower/Bathe Self (QC): 4 Upper Body Dressing (QC): 4 Lower Body Dressing (QC): 4 On/Off Footwear (QC): 4 1=Demonstrate adherence to instructed precautions during ADL tasks. 2=Patient will verbalize/demonstrate understanding of assistive devices/modifications for ADL. 3=Patient will improve strength/tolerance for activity to enable patient to perform ADL's. OT Education/Plan Problem List/Assessment Assessment: Decreased Activ Tolerance, Decreased Safety Aware, Decreased UE Strength, Edema, Impaired Bed Mobility, Impaired Cognition, Impaired Funct Balance, Impaired Self-Care Skills Discharge Recommendations Plan/Recommendations: Continue POC Therapy Discharge Recommendati: Post Acute OT Treatment Plan/Plan of Care Treatment,Training & Education: Yes Patient would benefit from OT for education, treatment and training to promote independence in ADL's, mobility, safety and/or upper extremity function for ADL's. Plan of Care: ADL Retraining, Cognitive Retraining, Functional Mobility, Group Exercise/Act as Ind, UE Funct Exercise/Act Treatment Duration: Oct 22, 2021 Frequency: 3 times per week (3-5x/week) Estimated Hrs Per Day: .25 hour per day Agreement: Yes Rehab Potential: Fair Time/GCodes Start Time: 11:08 Stop Time: 11:20 Total Time Billed (hr/min): 12 Billed Treatment Time 1 visit Katy Barajas OT Oct 08, 2021 11:33
[2021-10-08 13:34] VITALS: BP 125/82
--- NOTE | 2021-10-08 13:36 | Progress Note - Hospitalist ---
ANDERSONBjSOWMYA SERRATO 10/08/21 1336: Subjective HPI/CC On Admission Date Seen by Provider: Oct 08, 2021 Time Seen by Provider: 11:00 Pt remains on BiPAP IV fluids initiated Abdominal ultrasound ordered ABG is 7./85 Nephrology will be consulted Central line will be placed White count is 14.2 Creatinine is 4.9 Chronic opioid use Subjective/Events-last exam Patient reports feeling much better this morning and would like to get out of the ICU. He is breathing comfortably on 5L Nasal Cannula. He denies any chest pain but reports continued cough. He would like to be able to take his home dose of Trulicity. Review of Systems General: No Chills, No Night Sweats HEENT: No Head Aches, No Visual Changes Pulmonary: Dyspnea, Cough Cardiovascular: No: Chest Pain, Palpitations Gastrointestinal: No: Nausea, Vomiting, Abdominal Pain Genitourinary: No Dysuria, No Frequency Neurological: No: Confusion Objective Exam Vital Signs Vital Signs Date Time Temp Pulse Resp B/P (MAP) Pulse Ox O2 Delivery O2 Flow Rate FiO2 10/08/21 10:17 71 157/79 10/08/21 10:00 96 NIV Bilevel 30.00 10/08/21 07:00 36.6 10/08/21 04:00 30 10/08/21 04:00 23 Capillary Refill : Less Than 3 Seconds General Appearance: No Apparent Distress, Obese HEENT: PERRL/EOMI, Moist Mucous Membranes Neck: Non Tender, Supple Respiratory: Chest Non Tender, No Accessory Muscle Use, Rhonci, Wheezing Cardiovascular: Regular Rate, Rhythm, No JVD Gastrointestinal: Normal Bowel Sounds, Non Tender, Soft Back: Normal Inspection Extremity: Normal Capillary Refill, No Calf Tenderness Neurologic/Psychiatric: Alert, Oriented x3 Skin: Normal Color, Warm/Dry Lymphatic: No Adenopathy Results/Procedures Lab Laboratory Tests 10/08/21 03:20 Patient resulted labs reviewed. Assessment/Plan Assessment and Plan Assess & Plan/Chief Complaint 1) Acute resp failure Possible PE - Ddimer elevated, lower extremity US unremarkable - Not stable enough for V/Q scan - Heparin - Tolerating 5L O2 via nasal cannula during day and BiPap at night - resp acidosis - will follow ABG, adjust settings - ABG today: 7.27, 40, 106 - Cefepime - methylprednisolone - albuterol prn - BNP, Troponin, and Procal unremarkable - Echo revealed severe concentric hypertrophy with EF 60-65% 2) YUDI - Cr 5.78 on admit, today 1.15 - Nephrology consulted, appreciate recs - received IVF , UO of 0.45 mL/kg/hr (with rothman) - Discontinue IVF - US renal unremarkable - no NSAIDs 3) Shock (resolved) - not on pressors - hypertensive today - trop, bnp, pct unremarkable - Cardiology following, appreciate recs - Started on Hydralazine and Nitrates 4) Low Potassium - Supplement Dispo: Transition care to fourth floor for further medical management and work with PT/OT KATLYN AGEE DO 10/08/212053: Assessment/Plan Assessment and Plan Assess & Plan/Chief Complaint Moved to fourth floor Supportive care Supervisory-Addendum Brief Verification & Attestation Participated in pt care: history, MDM, physical Personally performed: exam, history, MDM, supervision of care Care discussed with: Medical Student Procedures: n/a Results interpretation: Verified all documentation Verification and Attestation of Medical Student E/M Service A medical student performed and documented this service in my presence. I reviewed and verified all information documented by the medical student and made modifications to such information, when appropriate. I personally performed the physical exam and medical decision making. Katlyn Agee, Oct 08, 2021,20:54 SOWMYA GIBSON Oct 08, 2021 13:36 KATLYN AGEE DO Oct 08, 2021 20:54
[2021-10-08 13:40] VITALS: BP 141/78
[2021-10-08 15:54] VITALS: BP 119/64
[2021-10-08] MEDS: TAMSULOSIN 0.4 MG (FLOMAX) CAP PO SCH (17:57)
[2021-10-08] MEDS: hydrOXYzine (VISTARIL/ATARAX) 25 MG capsule/tablet PO SCH (19:22)
[2021-10-08] MEDS: methylPREDNISolone 40 MG/ML (Solu-MEDROL) VIAL IV SCH (19:22)
[2021-10-08 19:28] VITALS: BP 144/84
[2021-10-09 00:19] VITALS: BP 112/61
[2021-10-09] MEDS: RT-ALBUTEROL SULF 2.5 MG/3 ML PRE-MIX VIAL INH SCH ×3 (02:23→10:16)
[2021-10-09 04:17] VITALS: BP 132/70
[2021-10-09] MEDS: CEFEPIME INJECTION 1,000 MG in NS (IVPB) 50 ML IV SCH ×3 (05:20)
[2021-10-09] MEDS: hydrALAZINE (APRESOLINE) 25 MG TAB PO SCH (05:20)
[2021-10-09 05:41] LABS: BASOPHILS % (AUTO) 0 % (0-10); EOSINOPHILS % (AUTO) 0 % (0-10); HEMATOCRIT 33 % (40-54); LYMPHOCYTES # (AUTO) 0.6 10^3/uL (1.0-4.0); LYMPHOCYTES % (AUTO) 6 % (12-44); MEAN CORPUSCULAR HEMOGLOBIN 32 pg (25-34); MEAN CORPUSCULAR HGB CONC 34 g/dL (32-36); MEAN CORPUSCULAR VOLUME 96 fL (80-99); MEAN PLATELET VOLUME 10.3 fL (9.0-12.2); MONOCYTES # (AUTO) 0.8 10^3/uL (0.0-1.0); MONOCYTES % (AUTO) 7 % (0-12); NEUTROPHILS # (AUTO) 9.8 10^3/uL (1.8-7.8); NEUTROPHILS % (AUTO) 87 % (42-75); PLATELET COUNT 197 10^3/uL (130-400); WHITE BLOOD COUNT 11.3 10^3/uL (4.3-11.0)
[2021-10-09 06:07] LABS: ALBUMIN 2.9 GM/DL (3.2-4.5); BILIRUBIN,TOTAL 0.4 MG/DL (0.1-1.0); CALCIUM 8.4 MG/DL (8.5-10.1); CREATININE SERUM 1.08 MG/DL (0.60-1.30); MAGNESIUM 1.8 MG/DL (1.6-2.4); POTASSIUM 3.7 MMOL/L (3.6-5.0); TOTAL PROTEIN 5.6 GM/DL (6.4-8.2)
[2021-10-09 08:39] VITALS: BP 163/75
--- NOTE | 2021-10-09 08:41 | Occupational Ther Daily Note ---
OT Current Status-Daily Note Subjective Pt alert, sitting EOB. present in room. Pt agrees to therapy. Pt states that he is going home today. Mental Status/Objective Patient Orientation: Person, Place, Time, Situation Attachments: IV ADL-Treatment Pt is completing toilet independent. Pt up ad mitch in room without AD. Pt up ad mitch in room carrying tray around room without AD. Independent with eating. Pt states that he is having difficulty with donning socks, for doffing he places heel of opposite foot on toe of sock and pulls socked foot back until sock comes off. Pt educated on using sock aide to don sock. Pt demonstrated understanding of equipment. [place] gave verbal info of where to purchase if that is what he wants and also how to make own sock aide at home. Pt is at baseline for ADLs per pt and and does not need OT services at this time. OT services discontinued. Therapy Code Descriptions/Definitions Functional [place] Measure: 0=Not Assessed/NA 4=Minimal Assistance 1=Total Assistance 5=Supervision or Setup 2=Maximal Assistance 6=Modified [place] 3=Moderate Assistance 7=Complete IndependenceSCALE: Activities may be completed with or without assistive devices. 5-Ubpwnwmazo-vsgqjgx completes the activity by him/herself with no assistance from a helper. 5-Set-up or Clean-up Assistance-helper sets up or cleans up; patient completes activity. [place] assists only prior to or following the activity. 4-Supervision or Touching Assistance-helper provides verbal cues and/or touching/steadying and/or contact guard assistance as patient completes activity. Assistance may be provided throughout the activity or intermittently. 3-Partial/Moderate Assistance-helper does LESS THAN HALF the effort. [place] lifts, holds or supports trunk or limbs, but provides less than half the effort. 2-Substantial/Maximal Assistance-helper does MORE THAN HALF the effort. [place] lifts or holds trunk or limbs and provides more than half the effort. 9-Dxzpvdxam-eswcqv does ALL the effort. Patient does none of the effort to complete the activity. Or, the assistance of 2 or more helpers is required for the patient to complete the activity. If activity was not attempted, code reason: 7-Patient Refused. 9-Not Applicable-not attempted and the patient did not perform the activity before the current illness, exacerbation or injury. 10-Not Attempted due to Environmental Limitations-(lack of equipment, weather restraints, etc.). 88-Not Attempted due to Medical Conditions or Safety Concerns. Eating (QC): 6 Oral Hygiene (QC): 6 (per clinical judment. ) Upper Body Dressing (QC): 6 (Per clinical judgment) On/Off Footwear: 5 (Set up) Toileting Hygiene (QC): 6 (per pt) Toilet Transfer (QC): 6 (per pt) Other Treatment Pt educated on completing B UE exercises with and without resistance while working on breathing techniques to increase strength and activity tolerance for daily functional tasks. Pt completed only a few B UE movements and declined to complete any more at this time. Pt did demonstrate understanding during this time. After session, pt sitting EOB with call light/phone in reach. present in room. All needs met. OT [facility] Runner Goals Care Home Goals Time Frame: Oct 22, 2021 Eating (QC): 5 Oral Hygiene (QC): 5 Toileting Hygiene (QC): 4 Shower/Bathe Self (QC): 4 Upper Body Dressing (QC): 4 Lower Body Dressing (QC): 4 On/Off Footwear (QC): 4 1=Demonstrate adherence to instructed precautions during ADL tasks. 2=Patient will verbalize/demonstrate understanding of assistive devices/modifications for ADL. 3=Patient will improve strength/tolerance for activity to enable patient to perform ADL's. OT Education/Plan Problem List/Assessment Assessment: Decreased Activ Tolerance, Impaired Self-Care Skills Discharge Recommendations Plan/Recommendations: Discharge/Goals Met Treatment Plan/Plan of Care Patient would benefit from OT for education, treatment and training to promote independence in ADL's, mobility, safety and/or upper extremity function for ADL's. Plan of Care: ADL Retraining, Cognitive Retraining, Functional Mobility, Group Exercise/Act as Ind, UE Funct Exercise/Act Treatment Duration: Oct 22, 2021 Frequency: 3 times per week (3-5x/week) Estimated Hrs Per Day: .25 hour per day Agreement: Yes Rehab Potential: Fair Time/GCodes Start Time: 07:33 Stop Time: 07:56 Total Time Billed (hr/min): 23 Billed Treatment Time 1 visit-FA 1 (18 min) EX 1 (8 min) DEVAUGHN VAN Oct 09, 2021 08:41
[2021-10-09] MEDS: ISOSORBIDE MONONITRATE 30 MG (IMDUR) TAB PO SCH (08:59)
[2021-10-09] MEDS: SENNA W/DOCUSATE (SENOKOT S) TABLET PO SCH (08:59)
[2021-10-09] MEDS: morphine ER 30 MG (MS CONTIN) TAB PO SCH (08:59)
[2021-10-09] MEDS: buPROPion SR 150 MG (WELLBUTRIN SR) TAB PO SCH (09:00)
[2021-10-09] MEDS: FAMOTIDINE 20 MG (PEPCID) TABLET PO SCH (09:01)
[2021-10-09] MEDS: PANTOPRAZOLE 40 MG (PROTONIX) TAB PO SCH (09:01)
[2021-10-09] MEDS: NICOTINE PATCH REMOVAL TP SCH (09:01)
[2021-10-09] MEDS: NICOTINE 21 MG (NICODERM) PATCH TD SCH (09:01)
[2021-10-09] MEDS: NICOTINE 14 MG (NICODERM) PATCH TD SCH (09:01)
--- NOTE | 2021-10-09 09:11 | Progress Note - Hospitalist ---
SOWMYA GIBSON 10/09/21 0911: Subjective HPI/CC On Admission Date Seen by Provider: Oct 09, 2021 Time Seen by Provider: 08:30 Pt remains on BiPAP IV fluids initiated Abdominal ultrasound ordered ABG is 7./ Nephrology will be consulted Central line will be placed White count is 14.2 Creatinine is 4.9 Chronic opioid use Subjective/Events-last exam Brief Hospital Course: Issac Shelton is a 51-year-old male with past medical history of DM, HTN, chronic opioid use, and COPD who was admitted for altered mental status and acute respiratory distress. He was also found to have a severe YUDI on admission. A central line was placed due to hypotension. He was started on BiPap. A CXR revealed bibasilar atelectasis and infiltrates but no acute cardiopulmonary process. A d-dimer was elevated however patient was not stable enough to undergo a V/Q scan. Bilateral lower extremity ultrasound revealed no evidence of DVT, and subcutaneous heparin was administered daily. He was started on Cefepime and methylprednisolone. His ABG was monitored closely. An echo revealed severe concentric hypertrophy with EF 60-65%. A renal ultrasound was performed and unremarkable. He was started on IV fluids and YUDI resolved. His oxygen was able to be titrated to room air during the day and BiPAP at night. Cardiology followed patient and started him on hydralazine, nitrates, and labetolol for blood pressure control. He is being discharged home in stable condition with instructions to follow up with his PCP. Today: Patient is sitting in the room comfortably on room air. He reports his breathing is significantly better and denies any pain. He is eager to go home. Review of Systems General: No Chills, No Night Sweats HEENT: No Head Aches, No Visual Changes Pulmonary: No Dyspnea; Cough Cardiovascular: No: Chest Pain, Palpitations Gastrointestinal: No: Nausea, Vomiting, Abdominal Pain Genitourinary: No Dysuria, No Frequency Neurological: No: Confusion Objective Exam Vital Signs Vital Signs Date Time Temp Pulse Resp B/P (MAP) Pulse Ox O2 Delivery O2 Flow Rate FiO2 10/09/21 08:39 36.2 97 20 163/75 (104) 94 Room Air 10/09/21 07:29 4.00 10/08/21 04:00 30 Capillary Refill : Less Than 3 Seconds General Appearance: No Apparent Distress, Obese HEENT: PERRL/EOMI, Moist Mucous Membranes Neck: Normal Inspection, Supple Respiratory: Chest Non Tender, No Accessory Muscle Use, Rhonci (improving), Wheezing Cardiovascular: Regular Rate, Rhythm, No JVD Gastrointestinal: Normal Bowel Sounds, Non Tender, Soft Back: Normal Inspection Extremity: Normal Capillary Refill, Non Tender Neurologic/Psychiatric: Alert, Oriented x3 Skin: Normal Color, Warm/Dry Lymphatic: No Adenopathy Results/Procedures Lab Laboratory Tests 10/09/21 05:30 Patient resulted labs reviewed. Assessment/Plan Assessment and Plan Assess & Plan/Chief Complaint 1) Acute resp failure Possible PE - Ddimer elevated, lower extremity US unremarkable - Not stable enough for V/Q scan - Heparin - Tolerating room air during day and BiPap at night - resp acidosis - will follow ABG, adjust settings - ABG today: 7.287, 46.4, 89 - Cefepime, transition to Cefdiner 300 BID - methylprednisolone, transition to oral prednisone - albuterol prn - BNP, Troponin, and Procal unremarkable - Echo revealed severe concentric hypertrophy with EF 60-65% 2) YUDI (resolved) - Cr 5.78 on admit, today 1.08 - Nephrology consulted, appreciate recs - US renal unremarkable - no NSAIDs 3) Shock (resolved) - not on pressors - hypertensive today - trop, bnp, pct unremarkable - Cardiology following, appreciate recs - Started on Hydralazine and Nitrates 4) Low Potassium - Supplement Dispo: Discharge home in stable condition. KATLYN AGEE DO 10/09/212041: Supervisory-Addendum Brief Verification & Attestation Participated in pt care: history, MDM, physical Personally performed: exam, history, MDM, supervision of care Care discussed with: Medical Student Procedures: n/a Results interpretation: Verified all documentation Verification and Attestation of Medical Student E/M Service A medical student performed and documented this service in my presence. I reviewed and verified all information documented by the medical student and made modifications to such information, when appropriate. I personally performed the physical exam and medical decision making. Katlyn Agee Oct 09, 2021,20:42 SOWMYA GIBSON Oct 09, 2021 09:11 KALTYN AGEE DO Oct 09, 2021 20:42
[2021-10-09] MEDS: PREGABALIN 50 MG (LYRICA) CAP PO SCH (09:15)
[2021-10-09] MEDS: methylPREDNISolone 40 MG/ML (Solu-MEDROL) VIAL IV SCH (09:16)
--- NOTE | 2021-10-09 09:50 | Physical Therapy Progress Note ---
Therapy Progress Note Patient is up independently in room without difficulty and declined further need for skilled PT. PT to dismiss patient from services at this time. GEOVANNI FRASER PT Oct 09, 2021 09:50
[2021-10-09] MEDS ORDERED: ISOS30TA82 PO (10:42)
[2021-10-09] MEDS ORDERED: HYDR-3923 PO (10:42)
[2021-10-09] MEDS ORDERED: CEFD300C3 PO (10:42)
--- NOTE | 2021-10-09 10:43 | Discharge Summary ---
Discharge Summary Hospital Course Was the Problem List Reviewed?: Yes Problems/Dx: (1) Chronic heart failure with preserved ejection fraction (2) Cardiomyopathy (3) Coronary artery disease without angina pectoris (4) Primary hypertension (5) Mixed hyperlipidemia (6) Acute on chronic respiratory failure with hypoxia and hypercapnia (7) Morbid obesity (8) Cigarette smoker Hospital Course Date of Admission: Oct 05, 2021 at 00:21 Admission Diagnosis : Family Physician/Provider: Eli Cheema MD Date of Discharge: 10/09/21 Discharge Diagnosis: [ ] Hospital Course: Brief Hospital Course: Issac Shelton is a 51-year-old male with past medical history of DM, HTN, chronic opioid use, and COPD who was admitted for altered mental status and acute respiratory distress. He was also found to have a severe YUDI on admission. A central line was placed due to hypotension. He was started on BiPap. A CXR revealed bibasilar atelectasis and infiltrates but no acute cardiopulmonary process. A d-dimer was elevated however patient was not stable enough to undergo a V/Q scan. Bilateral lower extremity ultrasound revealed no evidence of DVT, and subcutaneous heparin was administered daily. He was started on Cefepime and methylprednisolone. His ABG was monitored closely. An echo revealed severe concentric hypertrophy with EF 60-65%. A renal ultrasound was performed and unremarkable. He was started on IV fluids and YUDI resolved. His oxygen was able to be titrated to room air during the day and BiPAP at night. Cardiology followed patient and started him on hydralazine, nitrates, and labetolol for blood pressure control. He is being discharged home in stable condition with instructions to follow up with his PCP. Labs and Pending Lab Test: Laboratory Tests 10/08/21 11:03: Glucometer 154H 10/08/21 15:20: Glucometer 173H 10/08/21 20:06: Glucometer 168H 10/09/21 05:30: White Blood Count 11.3H, Red Blood Count 3.40L, Hemoglobin 11.0L, Hematocrit 33L , Mean Corpuscular Volume 96, Mean Corpuscular Hemoglobin 32, Mean Corpuscular Hemoglobin Concent 34, Red Cell Distribution Width 14.1, Platelet Count 197, Mean Platelet Volume 10.3, Immature Granulocyte % (Auto) 1, Neutrophils (%) (Auto) 87H, Lymphocytes (%) (Auto) 6L, Monocytes (%) (Auto) 7, Eosinophils (%) (Auto) 0, Basophils (%) (Auto) 0, Neutrophils # (Auto) 9.8H, Lymphocytes # (Auto) 0.6L, Monocytes # (Auto) 0.8, Eosinophils # (Auto) 0.0, Basophils # (Auto) 0.0, Immature Granulocyte # (Auto) 0.1, Sodium Level 138, Potassium Level 3.7, Chloride Level 109H, Carbon Dioxide Level 21, Anion Gap 8, Blood Urea Nitrogen 29H, Creatinine 1.08, Estimat Glomerular Filtration Rate 83, BUN/Creatinine Ratio 27, Glucose Level 109H, Calcium Level 8.4L, Corrected Calcium 9.3, Magnesium Level 1.8, Total Bilirubin 0.4, Aspartate Amino Transf (AST/SGOT) 13, Alanine Aminotransferase (ALT/SGPT) 12, Alkaline Phosphatase 44, Total Protein 5.6L, Albumin 2.9L 10/09/21 05:50: Glucometer 144H 10/09/21 07:27: Bedside Blood Gas pH (LAB) 7.297*L, Bedside Blood Gas pCO2 (LAB) 46.4, Bedside Blood Gas pO2 (LAB) 89, Bedside Blood Gas HCO3 (LAB) 22.7L, POC Blood Gas Total CO2 Calc 24, Bedside Bl Gas O2 Saturation (Calc) 96, Bedside Arterial Blood Base Excess -4L Microbiology 10/05/21 Urine Culture - Final, Complete NO GROWTH 10/04/21 Blood Culture - Preliminary, Resulted No growth Home Meds Active Hydralazine HCl 25 Mg Tablet 25 Mg PO TID Isosorbide Mononitrate ER (Isosorbide Mononitrate) 30 Mg Tab.er.24h 30 Mg PO DAILY Reported Ventolin Hfa (Albuterol Sulfate) 1 Puff Puff 2 Puff INH Q4H PRN Famotidine 20 Mg Tablet 20 Mg PO BID Hydrochlorothiazide 25 Mg Tablet 25 Mg PO DAILY Atorvastatin Calcium 40 Mg Tablet 40 Mg PO HS Pregabalin 50 Mg Capsule 50 Mg PO BID Hydroxyzine HCl 50 Mg Tablet 50 Mg PO HS Paliperidone ER (Paliperidone) 6 Mg Tab.er.24 12 Mg PO DAILY TAKES 2 (6MG) TABS Lisinopril 40 Mg Tablet 40 Mg PO DAILY Trulicity (Dulaglutide) 0.75 Mg/0.5 Ml Pen.injctr 0.75 Mg IJ WED Morphine Sulfate ER (Morphine Sulfate) 30 Mg Tablet.er 30 Mg PO Q12H Bupropion Xl (Bupropion HCl) 150 Mg Tab.er.24h 150 Mg PO DAILY Stimulant Laxative Plus Tablet (Sennosides/Docusate Sodium) 8.6 Mg-50 Mg Tablet 1 Ea PO BID Hydrocodone-Acetamin 5-325 mg (Hydrocodone/Acetaminophen) 5 Mg-325 Mg Tablet 1 Each PO Q6H PRN Ibuprofen 800 Mg Tablet 800 Mg PO Q8H PRN Escitalopram Oxalate 10 Mg Tablet 10 Mg PO DAILY Pantoprazole Sodium 40 Mg Tablet.dr 40 Mg PO DAILY Alfuzosin HCl ER (Alfuzosin HCl) 10 Mg Tab.er.24h 10 Mg PO HS Metformin HCl 500 Mg Tablet 500 Mg PO BID Assessment/Pt Instructions PCP in 1 week Discharge Planning: <30 minutes discharge planning Discharge Instructions Discharge Diet: No Restrictions Discharge Physical Examination Vital Signs Vital Signs Date Time Temp Pulse Resp B/P (MAP) Pulse Ox O2 Delivery O2 Flow Rate FiO2 10/09/21 10:17 92 Room Air 10/09/21 08:39 36.2 97 20 163/75 (104) 10/09/21 07:29 4.00 10/08/21 04:00 30 General Appearance: No Apparent Distress, WD/WN, Chronically ill Allergies: Coded Allergies: varenicline (Verified Allergy, Mild, N/V, 01/22/19) vortioxetine (Verified Allergy, Mild, Vomiting, 01/22/19) Discharge Summary Date of Admission Oct 05, 2021 at 00:21 Date of Discharge Discharge Date: Oct 09, 2021 Admission Diagnosis Assessment: Acute respiratory failure requiring biPAP YUDI likely due to ATN Hypotension Obesity Plan: Appreciate Nephrology and eicu Discharge Diagnosis Moved to fourth floor Supportive care (1) Chronic heart failure with preserved ejection fraction Assessment & Plan: His BNP level is marginally elevated and his chest x-ray d oes not show any overt pulmonary edema. I suspect the majority of his shortness of breath is related to his underlying lung disease with ongoing cigarette smoking. (2) Cardiomyopathy Assessment & Plan: He had a previous cardiomyopathy that improved. He has been taking lisinopril at home but due to acute kidney injury, this is on hold. I will start him on hydralazine and nitrates. I am not sure he would tolerate beta-kwan due to his severe underlying pulmonary disease. (3) Coronary artery disease without angina pectoris Assessment & Plan: He is not having any angina. For unclear reasons he has not been taking aspirin at home. As above, I am not convinced he would tolerate beta-kwan due to his pulmonary disease. I have ordered his atorvastatin. There are no strong indications for an ischemic evaluation at this time. (4) Primary hypertension Assessment & Plan: As above, hydrochlorothiazide and lisinopril are on hold due to the acute kidney injury. I have started him on hydralazine and nitrates. (5) Mixed hyperlipidemia Assessment & Plan: Continue atorvastatin. (6) Acute on chronic respiratory failure with hypoxia and hypercapnia Assessment & Plan: As above, suspect this is primarily pulmonary in etiology. (7) Morbid obesity Assessment & Plan: He needs to work on weight loss. (8) Cigarette smoker Assessment & Plan: He needs to quit smoking. He has been counseled in this regard on multiple occasions. CHANDRIKA AGEE DO Oct 09, 2021 10:43
[2021-10-09 11:20] VITALS: BP 163/75
--- NOTE | 2021-10-09 12:39 | Cardiology Progress Note ---
Subjective Date Seen by Provider: Oct 09, 2021 Time Seen by Provider: 10:00 Subjective/Events-last exam Patient was seen at bedside, he was feeling better and asking to go home Denied any chest pain or shortness of breath. Review of Systems General: No Chills, No Night Sweats, No Fatigue, No Malaise, No Appetite, No Other HEENT: No Head Aches, No Visual Changes, No Eye Pain, No Ear Pain, No Dysphasia, No Sinus Congestion, No Post Nasal Drip, No Sore Throat, No Other Pulmonary: No Dyspnea, No Cough, No Pleuritic Chest Pain, No Other Cardiovascular: No: Chest Pain, Palpitations, Orthopnea, Paroxysmal Noc. Dyspnea, Edema, Lt Headedness, Other Objective-Cardiology Exam Last Set of Vital Signs Vital Signs 10/08/21 10/09/21 04:00 11:20 Temp 36.2 Pulse 97 Resp 20 B/P (MAP) 163/75 Pulse Ox 92 O2 Delivery Room Air O2 Flow Rate 0.00 FiO2 30 I&O Intake and Output 10/09/21 00:00 Intake Total 2990 ml Output Total 1575 ml Balance 1415 ml Intake Oral 2990 ml Output Urine Total 1575 ml General: Alert, Oriented X3 Lungs: Other (rhonchi and wheezing bilaterally) Heart: Regular Rate Abdomen: Normal Bowel Sounds, Soft Skin: No Rashes, No Significant Lesion Neuro: Normal Speech Psych/Mental Status: Mental Status NL, Mood NL Results Lab Laboratory Tests 10/09/21 05:30 A/P-Cardiology Admission Diagnosis Acute on chronic respiratory failure ARF Dehydration Cardiomyopathy Assessment/Plan Status post acute on chronic respiratory failure, has underlying untreated MITCHELL in addition to suspected obesity hypoventilation syndrome, currently on BiPAP Patient is still having some shortness of breath, reporting improvement. Bibasilar infiltrates noted on most recent CXR, clinically better today Patient is being discharged today. MITCHELL, untreated, currently doesn't have a functioning machine at home. Discussed compliance Acute renal failure, improving. Dr. Taylor following. Renal function are back to baseline, had a long discussion with the patient regarding his long-term plan and the possibility of needing the permanent dialysis. Currently he is back to his baseline. Continue to monitor closely Dehydration, received IVF's, improved. History of recent COVID-19 illness approx 2-3 weeks ago per patient History of cardiomyopathy, noted to have elevated BNP on admission. 2D Echo done 10/06/21 showing severe concentric hypertrophy. Systolic function is normal. The estimated ejection fraction is 60-65%. Regional wall motion abnormalities cannot be excluded due to poor endocardial definition. Left ventricular diastolic function parameters are normal. Right atrium: The right atrium is mildly dilated with an area of 20 cm. Inferior vena cava: The vessel is dilated. The respirophasic diameter changes are blunted (less than 50%). These findings are consistent with markedly elevated right atrial pressure (15 mmHg). Pulmonary arteries: The estimated pulmonary artery systolic pressure is 59 mmHg assuming a right atrial pressure of 15 mmHg. Coronary artery disease, mild disease per cardiac catheterization in 2010, continue to monitor. Lexiscan stress test was done on August 20, 2020 showing diaphragmatic attenuation with no significant ischemia or infarction, stress score 2, SDS 0, ejection fraction 52%. Continue to monitor Hypertension, hypotensive on admission. Blood pressure improved, mildly elevated. Started on hydralazine, Isosorbide, labetolol PRN. Will continue to monitor. Hyperlipidemia, lipid profile was done in October 2020 showing total cholesterol 96, HDL 28, triglyceride 94, LDL 50. Continue to monitor Hypokalemia, replace, continue to monitor. Diabetes mellitus, followed and managed by primary care physician. Peripheral neuropathy-maintained on gabapentin as outpatient. ABIs done June 2021 WNL. Morbid obesity, status post gastric sleeve surgery. Gastroesophageal reflux disease, history of gastric sleeve surgery Tobaccoism, patient was educated and instructed on smoking cessation ARPAN YOUNG MD Oct 09, 2021 12:39
== END 2021-10-09 11:20 | disposition home or self-care (01) | DRG 682 ==
LOC: EDUNIT# 22:05 → ER 22:06 → ICU 10-05 00:21 → 4TH 10-08 12:14
PROVIDERS: ADMIT Internal Medicine; ATTEND Internal Medicine
PROC: 02HV33Z Insertion of Infusion Device into Superior Vena Cava, Percutaneous Approach (ICD-10-PCS; principal; 2021-10-05)
PROC: 5A09457 Assistance with Respiratory Ventilation, 24-96 Consecutive Hours, Continuous Positive Airway Pressure (ICD-10-PCS; 2021-10-05)
PROC: 5A0935A Assistance with Respiratory Ventilation, Less than 24 Consecutive Hours, High Flow/Velocity Cannula (ICD-10-PCS; 2021-10-07)
DX: N17.0 Acute kidney failure with tubular necrosis (principal); J96.21 Acute and chronic respiratory failure with hypoxia; J96.22 Acute and chronic respiratory failure with hypercapnia; R57.9 Shock, unspecified; E87.2 Acidosis; Z68.43 Body mass index [BMI] 50.0-59.9, adult; I50.32 Chronic diastolic (congestive) heart failure; I42.9 Cardiomyopathy, unspecified; E66.2 Morbid (severe) obesity with alveolar hypoventilation; R65.10 Systemic inflammatory response syndrome (SIRS) of non-infectious origin without acute organ dysfunction; Z79.84 Long term (current) use of oral hypoglycemic drugs; Z79.899 Other long term (current) drug therapy; J44.9 Chronic obstructive pulmonary disease, unspecified; Z86.718 Personal history of other venous thrombosis and embolism; E11.40 Type 2 diabetes mellitus with diabetic neuropathy, unspecified; K21.9 Gastro-esophageal reflux disease without esophagitis; M19.90 Unspecified osteoarthritis, unspecified site; F41.9 Anxiety disorder, unspecified; F32.A Depression, unspecified; E86.0 Dehydration; F17.210 Nicotine dependence, cigarettes, uncomplicated; E86.1 Hypovolemia; E83.51 Hypocalcemia; Z86.16 Personal history of COVID-19; E87.6 Hypokalemia; I11.0 Hypertensive heart disease with heart failure; I25.10 Atherosclerotic heart disease of native coronary artery without angina pectoris; E78.2 Mixed hyperlipidemia; F11.90 Opioid use, unspecified, uncomplicated
CPT/HCPCS: 36415; 36600; 51702; 71045; 76770; 80048; 80053; 80306; 80320; 80329; 81000; 82550; 82570; 82805; 82947; 83036; 83605; 83735; 83880; 84100; 84145; 84156; 84300; 84439; 84443; 84481; 84484; 84550; 85007; 85025; 85027; 85379; 85610; 85730; 87040; 87088; 93005; 93306; 93970; 94640; 94660; 94664; 94760; 94761

== ENCOUNTER 2021-12-21 06:31 | Outpatient (CLI) | payer MEDICARE, MEDICAID ==
[~2021-12-21] VITALS: Ht 167.6 cm; Wt 134.1 kg
[~2021-12-21 06:31] MED LIST changes: +ATOR40TA70 PO; +BUPR150T24 PO; +CEFD300C3 PO; +DULA0.75 IJ; +FAMO20TA5 PO; +HYDR-3923 PO; +HYDR25TA4 PO; +ISOS30TA82 PO; +LISI40TA9 PO; +MORP-69 PO; +PALI6TAB6 PO; +PREG50CA65 PO; +RT-ALBUINH INH; +SENN-117 PO
[2021-12-21] MEDS ORDERED: MTP25TSR PO (13:44)
[2021-12-21] MEDS ORDERED: LIDOCAINE (13:44)
[2021-12-21] MEDS ORDERED: UMEC62.5 IH (13:44)
[2021-12-21] MEDS ORDERED: LOPE2TAB34 PO (13:44)
[2021-12-21] MEDS ORDERED: SUCR1TAB36 PO (13:44)
[2021-12-21] MEDS ORDERED: NICO-685 TD (13:44)
[2021-12-21] MEDS ORDERED: NALO4SPR NS (13:44)
== END 2021-12-21 13:55 | disposition home or self-care (01) ==
LOC: PREOP 06:31
PROVIDERS: ATTEND Surgery
DX: Z01.818 Encounter for other preprocedural examination (principal)

== ENCOUNTER 2021-12-24 06:41 | Day surgery (SDC) | payer MEDICARE, MEDICAID ==
[~2021-12-24] VITALS: Ht 167.6 cm; Wt 134.1 kg
[2021-12-24] VITALS (13 sets, daily range): BP systolic 93–123; BP diastolic 67–90
[~2021-12-24 06:41] MED LIST changes: +LIDOCAINE; +LOPE2TAB34 PO; +MTP25TSR PO; +NALO4SPR NS; +NICO-685 TD; +UMEC62.5 IH
[2021-12-24] MEDS ORDERED: ceFAZolin INJECTION 2,000 MG in NS (IVPB) 50 ML IV ONE (07:00)
[2021-12-24] MEDS ORDERED: LACTATED RINGERS 1,000 ML IV PRN (07:00)
[2021-12-24] MEDS ORDERED: fentaNYL INJ 100 MCG/2 ML AMP ONE (07:24)
[2021-12-24] MEDS ORDERED: MIDAZOLAM 2 MG/2 ML (VERSED) VIAL ONE (07:24)
[2021-12-24] MEDS ORDERED: ONDANSETRON 4 MG/2 ML (SDV) Z0FRAN ONE (08:29)
[2021-12-24] MEDS ORDERED: proPOfol 200 MG/20 ML (DIPRIVAN) VIAL IV ONE (08:29)
[2021-12-24] MEDS ORDERED: LIDOCAINE PF 2% 5 ML (XYLOCAINE) VIAL ONE (08:29)
[2021-12-24] MEDS ORDERED: SEVOFLURANE (ULTANE) 15 ML INHAL SOLN ONE (08:37)
[2021-12-24] MEDS ORDERED: LIDOCAINE/EPI 2% 1:200,00 (XYLOCAINE) 10 ML VIAL ONE (08:51)
--- NOTE | 2021-12-24 09:19 | Anesthesia-General Post-Op ---
General Patient Condition Mental Status/LOC: Same as Preop Cardiovascular: Satisfactory Nausea/Vomiting: Absent Respiratory: Satisfactory Pain: Controlled Complications: Absent Post Op Complications Complications None Follow Up Care/Instructions Patient Instructions None needed. Anesthesia/Patient Condition Patient Condition Patient is doing well, no complaints, stable vital signs, no apparent adverse anesthesia problems. No complications reported per nursing. IRIS SAUNDERS CRNA Dec 24, 2021 09:19
[2021-12-24] MEDS ORDERED: fentaNYL INJ 100 MCG/2 ML AMP IVP ONE (09:30)
[2021-12-24] MEDS ORDERED: ONDANSETRON 4 MG/2 ML (SDV) Z0FRAN IVP PRN (09:30)
[2021-12-24] MEDS ORDERED: MEPERIDINE (DEMEROL) INJ 50 MG/ML IVP ONE (09:30)
[2021-12-24] MEDS ORDERED: morphine INJ 10 MG/ML 1ML (SYR OR VIAL) IVP ONE (09:30)
--- NOTE | 2021-12-24 10:10 | Discharge Inst-Simple/Standard ---
Discharge Inst-Standard Patient Instructions/Follow Up Plan of Care/Instructions/FU: 2 weeks sandy Activity as Tolerated: Yes Discharge Diet: Regular Diet Other Inst to Patient Follow up Appt: Make appointment for 2 week. Instructions: No strenuous activity. May shower in 24 hours, no tub bath or soaking. Use incentive spirometer at home as directed. No Smoking Skin/Wound Care: You have a plug in the anus, it needs to be removed after 24 hours if it doesn't come out on its own. Symptoms to Report: Appetite Changes, Extremity Discoloration, Numbness/Tingling, Swelling Increased, Bleeding Excessive, Eyesight Changes, Pain Increased, Urine Color Change, Constipation(Persistent), Fever over 101 degree F, Pain/Pressure in chest, Urinating Difficulty, Cough Up/Vomit Blood, Heart Beat Irreg/Pounding, Pain/Pressure in jaw, Vaginal Bleeding Increase, Cramps in feet or legs, Lightheadedness, Pain/Pressure in shoulder, Diarrhea(Persistent), Memory Changes Suddenly, Questions/Concerns, Weight gain consecutive days, Dizziness/Fainting, Nausea/Vomiting, Shortness of Breath, Weight gain over 2 pounds If questions or concerns contact your physician Or seek help at emergency department. PATEL QUIROGA DO Dec 24, 2021 10:10
--- NOTE | 2021-12-24 21:49 | OPERATIVE REPORT ---
DATE OF SERVICE: 12/24/2021 PREOPERATIVE DIAGNOSES: External hemorrhoid retention, possible fistula. POSTOPERATIVE DIAGNOSES: External hemorrhoid and anorectal polyp. PROCEDURE: Flexible sigmoidoscopy, exam under anesthesia, excision of anorectal polyp. SURGEON: Patel Cardozo DO ANESTHESIA: General. ESTIMATED BLOOD LOSS: Minimal. COMPLICATIONS: None. INDICATIONS: The patient is a 51-year-old male with the above-mentioned diagnosis. He understands risks and benefits of procedure and wished to proceed. Consent was signed in the chart. DESCRIPTION OF PROCEDURE: The patient was taken to the operating suite, placed in lithotomy position. A timeout was performed. A digital rectal exam was performed. No polyp palpable, appearance of a healed posterior fissure and also decrease in size external hemorrhoid present. Scope was inserted in the rectum and advanced through the rectum into the sigmoid, into the descending colon. Prep was adequate. Scope was slowly retracted back. No polyps, masses or ulcerations within the descending, sigmoid and rectum until it was retroflexed noting anorectal polyp. Scope was returned to its normal position, slowly withdrawn until completely removed, noting no other pathology. A Dittmar retractor was inserted into the rectum and circumferentially inspected the anus and rectum that was visualized, noting anorectal polyp. This was able to be grasped, elevated and the Harmonic Focus was used to excise it. A 3-0 Vicryl was used to close the defect of the mucosa. No other pathology noted. No evidence of any fistula. Scope was then slowly retracted back until completely removed. The Dittmar retractor was removed and a plug was inserted and the area was then washed and dried. The patient tolerated the procedure well without any complications, taken to recovery room in stable condition. RECOMMENDATIONS: The patient will need a repeat endoscopy as per guidelines and we will follow up in our office in 2 weeks to go over pathology. He also instructed to remove the plug in 24 hours if doesn't fall out by then. Job ID: [id number] DocumentID: [id number] Dictated Date: 12/24/2021 11:24:28 Office Lead Date: 12/24/2021 21:49:08 Dictated By: PATEL CARDOZO DO [facility]
== END 2021-12-24 11:20 | disposition home or self-care (01) ==
LOC: SDC 06:41
PROVIDERS: ATTEND Surgery
DX: K62.0 Anal polyp (principal); K64.4 Residual hemorrhoidal skin tags; E66.01 Morbid (severe) obesity due to excess calories; Z68.42 Body mass index [BMI] 45.0-49.9, adult; F17.210 Nicotine dependence, cigarettes, uncomplicated; Z79.899 Other long term (current) drug therapy
CPT/HCPCS: 82947; 87081

== ENCOUNTER 2022-06-21 10:56 | Emergency (ER) | payer MEDICARE, MEDICAID ==
[~2022-06-21] VITALS: Ht 167.7 cm; Wt 131.5 kg
[~2022-06-21 10:56] MED LIST changes: +ALBU8.5H6 IH; -RT-ALBUINH IH
[2022-06-21 11:05] VITALS: BP 113/73
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
[2022-06-21] MEDS ORDERED: IOHEXOL 350 MG/ML 100 ML (OMNIPAQUE 350) VIAL IV ONE (11:15)
[2022-06-21] MEDS ORDERED: NS 100 ML (IVPB) BAG IV ONE (11:15)
[2022-06-21] MEDS ORDERED: HOLD METFORMIN - RECEIVED CONTRAST 20 ML VIAL IV SCH (11:15)
[2022-06-21 11:19] LABS: HEMATOCRIT 46 % (40-54); HEMOGLOBIN 16.2 g/dL (13.3-17.7); MEAN CORPUSCULAR HEMOGLOBIN 33 pg (25-34); MEAN CORPUSCULAR HGB CONC 35 g/dL (32-36); MEAN CORPUSCULAR VOLUME 94 fL (80-99); MEAN PLATELET VOLUME 9.3 fL (9.0-12.2); PLATELET COUNT 184 10^3/uL (130-400)
[2022-06-21 11:29] LABS: ALBUMIN 3.7 GM/DL (3.2-4.5); CHLORIDE 101 MMOL/L (98-107); POTASSIUM 3.1 MMOL/L (3.6-5.0); SODIUM 135 MMOL/L (135-145)
--- NOTE | 2022-06-21 11:29 | Diagnostic Imaging Report ---
INDICATION: Left foot pain. FINDINGS: Three views of the left foot show no fracture, dislocation, or other acute abnormalities. IMPRESSION: Negative left foot. Dictated by: Dictated on workstation # [id number]
[2022-06-21 11:30] LABS: CALCIUM 8.7 MG/DL (8.5-10.1)
[2022-06-21 11:32] LABS: GLUCOSE 112 MG/DL (70-105); TOTAL PROTEIN 6.8 GM/DL (6.4-8.2)
[2022-06-21 11:33] LABS: BILIRUBIN,TOTAL 0.5 MG/DL (0.1-1.0); CARBON DIOXIDE 25 MMOL/L (21-32)
[2022-06-21 11:35] LABS: ALKALINE PHOSPHATASE 77 U/L (40-136); CREATININE SERUM 1.47 MG/DL (0.60-1.30); GFR ESTIMATED 57
[2022-06-21 11:36] LABS: BUN/CREATININE RATIO 10
[2022-06-21 11:37] LABS: BILIRUBIN,DIRECT 0.2 MG/DL (0.0-0.3); BILIRUBIN,INDIRECT 0.3 MG/DL
[2022-06-21 11:38] LABS: ALANINE AMINOTRANSFERASE 14 U/L (0-55)
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
[2022-06-21] MEDS ORDERED: KETOROLAC 30 MG/ML VIAL IVP ONE (13:00)
[2022-06-21] MEDS ORDERED: LIDOCAINE 1% INJ 10 ML VIAL ONE (13:08)
[2022-06-21] MEDS ORDERED: KCL 10 MEQ TAB (MICRO K) PO ONE (13:15)
[2022-06-21] MEDS ORDERED: ONDANSETRON 4 MG/2 ML (SDV) Z0FRAN IVP ONE (13:15)
[2022-06-21 14:11] LABS: BILIRUBIN,URINE NEGATIVE (NEGATIVE); CLARITY,URINE CLEAR; COLOR,URINE YELLOW; GLUCOSE, URINE (UA) NEGATIVE (NEGATIVE); KETONES,URINE NEGATIVE (NEGATIVE); LEUKOCYTE ESTERASE ,URINE NEGATIVE (NEGATIVE); NITRITE,URINE NEGATIVE (NEGATIVE); PROTEIN,URINE NEGATIVE (NEGATIVE)
[2022-06-21 14:21] LABS: BACTERIA,URINE NEGATIVE /HPF; RBC,URINE RARE /HPF; SQUAMOUS EPITHELIAL CELL,UR 0-2 /HPF
[2022-06-21 14:25] LABS: AMPHETAMINE SCREEN, URINE NEGATIVE (NEGATIVE); BARBITURATE SCREEN URINE NEGATIVE (NEGATIVE); BENZODIAZEPINES SCREEN URINE NEGATIVE (NEGATIVE); CANNABINOID SCREEN, URINE NEGATIVE (NEGATIVE); COCAINE SCREEN URINE NEGATIVE (NEGATIVE); METHADONE STAT NEGATIVE (NEGATIVE); OPIATE SCREEN URINE POSITIVE (NEGATIVE); OXYCODONE STAT NEGATIVE (NEGATIVE); PROPOXYPHENE STAT NEGATIVE (NEGATIVE); TRICYCLIC ANTIDEPRESSANTS SCRE NEGATIVE (NEGATIVE)
[2022-06-21] MEDS ORDERED: SULF1TAB38 PO (19:47)
== END 2022-06-21 14:22 | disposition home or self-care (01) ==
LOC: EDUNIT# 10:56 → ER 10:59
DX: S01.01XA Laceration without foreign body of scalp, initial encounter (principal); S90.32XA Contusion of left foot, initial encounter; S20.219A Contusion of unspecified front wall of thorax, initial encounter; E87.6 Hypokalemia; F17.210 Nicotine dependence, cigarettes, uncomplicated; Y00.XXXA Assault by blunt object, initial encounter
CPT/HCPCS: 36415; 70450; 71260; 72125; 73630; 74177; 80048; 80076; 80306; 80320; 81000; 85027; 93041

== ENCOUNTER 2022-06-30 17:52 | Emergency (ER) | payer MEDICARE, MEDICAID ==
[~2022-06-30] VITALS: Ht 167 cm; Wt 131.5 kg
[~2022-06-30 17:52] MED LIST changes: +SULF1TAB38 PO
[2022-06-30 18:06] VITALS: BP 120/75
== END 2022-06-30 18:06 | disposition home or self-care (01) ==
LOC: EDUNIT# 17:52 → ER 17:53
DX: Z48.02 Encounter for removal of sutures (principal)

== ENCOUNTER → 2022-08-23 | Outpatient (CLI) | payer MEDICARE, MEDICAID | LOC: CARD 09:00 | PROVIDERS: ATTEND Internal Medicine Cardiovascular Disease | DX: I11.9 Hypertensive heart disease without heart failure (principal) | CPT/HCPCS: 93306 ==

== ENCOUNTER 2023-02-07 09:47 | Emergency (ER) | payer MEDICARE, MEDICAID ==
[~2023-02-07] VITALS: Ht 167.4 cm; Wt 117.0 kg
[~2023-02-07 09:47] MED LIST changes: -PREG50CA65 PO; +PREG50CA66 PO
[2023-02-07 10:26] LABS: POTASSIUM 2.9 MMOL/L (3.6-5.0)
[2023-02-07 10:27] LABS: CALCIUM 8.9 MG/DL (8.5-10.1)
[2023-02-07 10:31] LABS: CREATININE SERUM 1.25 MG/DL (0.60-1.30)
--- NOTE | 2023-02-07 11:19 | ED Abdominal Pain ---
General Chief Complaint: - Reproductive Stated Complaint: DIFFICULTY URINATING | Source of Information: Patient Exam Limitations: No Limitations History of Present Illness Date Seen by Provider: Feb 07, 2023 Time Seen by Provider: 11:13 Initial Comments Is a 52-year-old male with a history of HTN, DM, COPD, patient of Dr. Cheema who presented to the ER for concerns of difficulty with urination. Over the past 2 days he has had difficulty getting urine stream to start, will have to strain very hard in order to produce urine. Has sensation of needing to urinate, but unable to. Also notes that he has lost about 33 pound unintentionally over the past month and has been vomiting every time he eats small amounts of foods x1 month. Has experienced change in bowel, unsure when, but has been experiencing this for a long time where he has small stringy bowel movements. No dark,tarry, or bloody stools. Denies dysuria or hematuria. No fever, chills, body aches. Denies abdominal pain. Referral placed to Dr. Quiroga by PCP for colonoscopy, has not yet been called by office to schedule. He is a 2 PPD smoker for 30+ years. Denies prior lung cancer screening. Allergies and Home Medications Allergies Coded Allergies: varenicline (Verified Allergy, Mild, N/V, 12/21/21) vortioxetine (Verified Allergy, Mild, Vomiting, 12/21/21) Patient Home Medication List Home Medication List Reviewed: Yes Albuterol Sulfate (Ventolin Hfa) 1 Puff Puff, 2 PUFF INH Q4H PRN for SHORTNESS OF BREATH, (Reported) Entered as Reported by: PRISCA DARBY on 10/05/21 1356 Alfuzosin HCl (Alfuzosin HCl ER) 10 Mg Tab.er.24h, 10 MG PO HS, (Reported) Entered as Reported by: JUAN RAMON BARTLETT on 09/22/18 1331 Atorvastatin Calcium (Atorvastatin Calcium) 40 Mg Tablet, 40 MG PO HS, (Reported) Entered as Reported by: PRISCA DARBY on 10/05/21 1356 Bupropion HCl (Bupropion Xl) 150 Mg Tab.er.24h, 150 MG PO DAILY, (Reported) Entered as Reported by: PRISCA DARBY on 10/05/21 1356 Dulaglutide (Trulicity) 0.75 Mg/0.5 Ml Pen.injctr, 0.5 MG IJ WED, (Reported) Entered as Reported by: PRISCA DARBY on 10/05/21 1356 Escitalopram Oxalate (Escitalopram Oxalate) 10 Mg Tablet, 10 MG PO DAILY, (Reported) Entered as Reported by: ESTELITA MAI on 01/22/19 0929 Famotidine (Famotidine) 20 Mg Tablet, 20 MG PO BID, (Reported) Entered as Reported by: PRISCA DARBY on 10/05/21 1356 Hydralazine HCl (Hydralazine HCl) 25 Mg Tablet, 25 MG PO TID Prescribed by: CHANDRIKA AGEE on 10/09/21 1042 Hydrochlorothiazide (Hydrochlorothiazide) 25 Mg Tablet, 25 MG PO DAILY, (Reported) Entered as Reported by: PRISCA DARBY on 10/05/21 135 Hydrocodone/Acetaminophen (Hydrocodone-Acetamin 5-325 mg) 5 Mg-325 Mg Tablet, 1 EACH PO Q6H PRN for PAIN-MODERATE (5-7), (Reported) Entered as Reported by: JUAN RAMON BARTLETT on 03/05/20 1315 Hydroxyzine HCl (Hydroxyzine HCl) 50 Mg Tablet, 50 MG PO HS, (Reported) Entered as Reported by: PRISCA DARBY on 10/05/21 1356 Ibuprofen (Ibuprofen) 800 Mg Tablet, 800 MG PO Q8H PRN for PAIN-MILD, (Reported) Entered as Reported by: ESTELITA MAI on 01/22/19 0929 Isosorbide Mononitrate (Isosorbide Mononitrate ER) 30 Mg Tab.er.24h, 30 MG PO DAILY Prescribed by: CHANDRIKA AGEE on 10/09/21 1042 Lisinopril (Lisinopril) 40 Mg Tablet, 40 MG PO DAILY, (Reported) Entered as Reported by: PRISCA DARBY on 10/05/21 1356 Loperamide HCl (Loperamide) 2 Mg Tablet, 2 MG PO DAILY PRN, (Reported) Entered as Reported by: SHAINA ELLIOTT on 12/21/21 1344 Metformin HCl (Metformin HCl) 500 Mg Tablet, 500 MG PO BID, (Reported) Entered as Reported by: ESTELITA MAI on 01/24/18 1210 Metoprolol Succinate (Metoprolol Succinate) 25 Mg Tab.er.24h, 25 MG PO DAILY, (Reported) Entered as Reported by: SHAINA ELLIOTT on 12/21/21 134 Morphine Sulfate (Morphine Sulfate ER) 30 Mg Tablet.er, 30 MG PO Q12H, (Reported) Entered as Reported by: PRISCA DARBY on 10/05/21 135 Naloxone HCl (Narcan) 4 Mg/Actuation Husser, 4 MG NS UD, (Reported) Entered as Reported by: SHAINA ELLIOTT on 12/21/21 134 Nicotine (Nicotine Patch) 21 Mg/24 Hour Patch.td24, 21 MG TD DAILY, (Reported) Entered as Reported by: SHAINA ELLIOTT on 12/21/21 134 Paliperidone (Paliperidone ER) 6 Mg Tab.er.24, 12 MG PO DAILY, (Reported) Entered as Reported by: PRISCA DARBY on 10/05/21 135 Pantoprazole Sodium (Pantoprazole Sodium) 40 Mg Tablet.dr, 40 MG PO DAILY, (Reported) Entered as Reported by: ESTELITA MAI on 01/22/19 0929 Pregabalin (Pregabalin) 50 Mg Capsule, 50 MG PO TID, (Reported) Entered as Reported by: PRISCA DARBY on 10/05/21 135 Sennosides/Docusate Sodium (Stimulant Laxative Plus Tablet) 8.6 Mg-50 Mg Tablet, 1 EA PO BID, (Reported) Entered as Reported by: PRISCA DARBY on 10/05/21 135 Sucralfate (Carafate) 1 Gram Tablet, 1 GM PO QID, (Reported) Entered as Reported by: SHAINA ELLIOTT on 12/21/21 134 Sulfamethoxazole/Trimethoprim (Bactrim Ds Tablet) 1 Each Tablet, 1 EACH PO BID Prescribed by: KAT PILLAI on 06/21/221946 Umeclidinium [place] (Incruse Ellipta) 62.5 Mcg/Actuation Blst.w.dev, 62.5 MCG IH UD, (Reported) Entered as Reported by: SHAINA ELLIOTT on 12/21/211343 [Lidocaine Top] Unknown Strength , Unknown Dose, (Reported) Entered as Reported by: SHAINA ELLIOTT on 12/21/21 5618 Review of Systems Review of Systems Constitutional: see HPI EENTM: No Symptoms Reported Respiratory: No Symptoms Reported Cardiovascular: No Symptoms Reported Gastrointestinal: Denies Abdomen Distended, Denies Abdominal Pain, Denies Blood Streaked Stools; Nausea, Poor Appetite; Denies Rectal Bleeding; Vomiting Genitourinary: Denies Burning, Denies Discharge, Denies Hematuria Musculoskeletal: no symptoms reported Skin: no symptoms reported Psychiatric/Neurological: No Symptoms Reported Endocrine: No Symptoms Reported Hematologic/Lymphatic: No Symptoms Reported All Other Systems Reviewed Negative Unless Noted: Yes Past Kknaggt-Wlwnjl-Zurwvf Hx Patient Social History Tobacco Use?: Yes Tobacco type used: Cigarettes Smoking Status: Heavy Tobacco Smoker Use of E-Cig and/or Vaping dev: No Substance use?: Yes Substance type: Marijuana Substance frequency: Once in a while Alcohol Use?: No Pt feels they are or have been: No Immunizations Up To Date Tetanus Booster (TDap): Less than 5yrs Influenza Vaccine Up-to-Date: No; Not Current First/Initial COVID19 Vaccinat: 4 shots Second COVID19 Vaccination Phil: 2020 Third COVID19 Vaccination Date: 2021 Seasonal Allergies Seasonal Allergies: Yes Past Medical History Surgery/Hospitalization HX: COPD, CHF, HTN, PREDIABETIC R SHOULDER X 2, GASTRIC SLEEVE Surgeries: Yes (RIGHT SHOULDER REPAIR x2, GASTRIC SLEEVE) Abdominal Respiratory: Yes Asthma, Sleep Apnea, COPD Currently Using CPAP: No (STATES HIS MODEL HAS BEEN RECALLED. HE IS NOT WEARING IT.) Currently Using BIPAP: No Cardiac: Yes (CHF) Angina, High Cholesterol, Hypertension Neurological: Yes Neuropathy Reproductive Disorders: No Sexually Transmitted Disease: No HIV/AIDS: No Genitourinary: No Gastrointestinal: Yes (BLOOD IN STOOLS) Gastroesophageal Reflux, Chronic Constipation, Polyps Musculoskeletal: Yes (CHRONIC LEG PAINS) Arthritis Endocrine: Yes (Morbid obesity) Diabetes, Non-Insulin dep HEENT: No (dentures, GLASSES) Loss of Vision: Denies Hearing Impairment: Denies Cancer: No Psychosocial: Yes Anxiety, PTSD, Depression Integumentary: No Blood Disorders: No Adverse Reaction/Blood Tranf: No (N/A) Family Medical History Colon cancer Cancer, Diabetes Physical Exam Vital Signs Vital Signs - First Documented 02/07/23 09:55 Temp 36.4 Pulse 60 Resp 18 B/P (MAP) 116/83 (94) Pulse Ox 94 O2 Delivery Room Air Capillary Refill : Height/Weight/BMI Height: 5'6.00" Weight: 293lbs. 0.0oz. 132.998169vw; 46.00 BMI Method:Stated General Appearance: WD/WN, no apparent distress, obese HEENT: PERRL/EOMI, normal ENT inspection Neck: full range of motion, supple, normal inspection Respiratory: no respiratory distress, no accessory muscle use, rales Cardiovascular: normal peripheral pulses, regular rate, rhythm Gastrointestinal: soft; No rebound, No tenderness; other Extremities: normal range of motion, non-tender, normal inspection Back: normal inspection Neurologic/Psychiatric: no motor/sensory deficits, alert, normal mood/affect, oriented x 3 Skin: normal color, warm/dry Procedures/Interventions Suture Size: 4-0 Progress/Results/Core Measures Results/Orders Lab Results Laboratory Tests Test 02/07/23 10:05 02/07/23 12:25 Range/Units White Blood Count 9.1 4.3-11.0 10^3/uL Red Blood Count 5.06 4.30-5.52 10^6/uL Hemoglobin 17.0 13.3-17.7 g/dL Hematocrit 47 40-54 % Mean Corpuscular Volume 92 80-99 fL Mean Corpuscular Hemoglobin 34 25-34 pg Mean Corpuscular Hemoglobin Concent 37 H 32-36 g/dL Red Cell Distribution Width 13.8 10.0-14.5 % Platelet Count 235 130-400 10^3/uL Mean Platelet Volume 9.9 9.0-12.2 fL Immature Granulocyte % (Auto) 0 % Neutrophils (%) (Auto) 70 42-75 % Lymphocytes (%) (Auto) 21 12-44 % Monocytes (%) (Auto) 6 0-12 % Eosinophils (%) (Auto) 3 0-10 % Basophils (%) (Auto) 0 0-10 % Neutrophils # (Auto) 6.3 1.8-7.8 10^3/uL Lymphocytes # (Auto) 1.9 1.0-4.0 10^3/uL Monocytes # (Auto) 0.5 0.0-1.0 10^3/uL Eosinophils # (Auto) 0.2 0.0-0.3 10^3/uL Basophils # (Auto) 0.0 0.0-0.1 10^3/uL Immature Granulocyte # (Auto) 0.0 0.0-0.1 10^3/uL Sodium Level 129 L 135-145 MMOL/L Potassium Level 2.9 L 3.6-5.0 MMOL/L Chloride Level 93 L 98-107 MMOL/L Carbon Dioxide Level 23 21-32 MMOL/L Anion Gap 13 5-14 MMOL/L Blood Urea Nitrogen 7 7-18 MG/DL Creatinine 1.25 0.60-1.30 MG/DL Estimat Glomerular Filtration Rate 69 BUN/Creatinine Ratio 6 Glucose Level 89 70-105 MG/DL Calcium Level 8.9 8.5-10.1 MG/DL Total Bilirubin 0.6 0.1-1.0 MG/DL Direct Bilirubin 0.3 0.0-0.3 MG/DL Indirect Bilirubin 0.3 MG/DL Aspartate Amino Transf (AST/SGOT) 16 5-34 U/L Alanine Aminotransferase (ALT/SGPT) 14 0-55 U/L Alkaline Phosphatase 75 40-136 U/L Total Protein 6.8 6.4-8.2 GM/DL Albumin 3.5 3.2-4.5 GM/DL Lipase 31 8-78 U/L Urine Color YELLOW Urine Clarity CLEAR Urine pH 7.0 5-9 Urine Specific [place] 1.010 L 1.016-1.022 Urine Protein NEGATIVE NEGATIVE Urine Glucose (UA) NEGATIVE NEGATIVE Urine Ketones NEGATIVE NEGATIVE Urine Nitrite NEGATIVE NEGATIVE Urine Bilirubin NEGATIVE NEGATIVE Urine Urobilinogen 0.2 < = 1.0 MG/DL Urine Leukocyte Esterase NEGATIVE NEGATIVE Urine RBC (Auto) NEGATIVE NEGATIVE Urine RBC NONE /HPF Urine WBC NONE /HPF Urine Squamous Epithelial Cells RARE /HPF Urine Crystals NONE /LPF Urine Bacteria NEGATIVE /HPF Urine Casts NONE /LPF Urine Mucus NEGATIVE /LPF Urine Culture Indicated NO My Orders Orders - ASHKAN MARTINS APRN Liver Panel (02/07/23 11:20) Cbc And Automated Diff (02/07/23 11:20) Lipase (02/07/23 11:20) Ct Chest/Abdomen/Pelvis W (02/07/23 11:20) Ns Iv 1000 Ml (Ns Iv 1000 Ml) (02/07/23 11:30) Bladder Scan (02/07/23 11:23) Potassium Cl 10meq/50ml Ivpb (Kcl 10 Meq (02/07/23 11:30) Iohexol Injection (Omnipaque 350 Mg/Ml 1 (02/07/23 11:45) Received Contrast (Hold Metformin- Contr (02/07/23 11:45) Ns (Ivpb) 100 Ml (Sodium Chloride 0.9% 1 (02/07/23 11:45) Rothman Cath (02/07/23 11:58) Lidocaine 2% (Urojet) (Lidocaine 2% (Uro (02/07/23 12:15) Potassium Cl 10meq/50ml Ivpb (Kcl 10 Meq (02/07/23 12:45) Medications Given in ED Current Medications Medications Dose Ordered Sig/Ori Route Start Time Stop Time Status Last Admin Dose Admin Iohexol 100 ml ONCE ONCE IV 02/07/23 11:45 02/07/23 11:46 DC 02/07/23 11:38 100 ML Lidocaine HCl 10 ml ONCE ONCE TOP 02/07/23 12:15 02/07/23 12:16 DC 02/07/23 12:16 10 ML Potassium Chloride 50 ml @ 50 mls/hr ONCE ONCE IV 02/07/23 11:30 02/07/23 12:29 DC 02/07/23 11:51 50 MLS/HR Potassium Chloride 50 ml @ 50 mls/hr ONCE ONCE IV 02/07/23 12:45 02/07/23 13:44 DC 02/07/23 12:49 50 MLS/HR Sodium Chloride 100 ml ONCE ONCE IV 02/07/23 11:45 02/07/23 11:46 DC 02/07/23 11:38 80 ML Sodium Chloride 1,000 ml @ 100 mls/hr Q10H ONCE IV 02/07/23 11:30 02/07/23 21:29 02/07/23 11:51 100 MLS/HR Vital Signs/I&O 02/07/23 02/07/23 09:55 14:12 Temp 36.4 36.4 Pulse 60 54 Resp 18 18 B/P (MAP) 116/83 (94) 103/67 Pulse Ox 94 95 O2 Delivery Room Air Room Air Progress Progress Note : Progress Note He is a patient upon arrival vital signs stable. Initial orders placed for BMP and UA. Unable to produce UA at this time. After examining the patient we will go ahead and add LFTs, lipase, CBC and obtain CT chest abdomen pelvis with contrast. Given his 60+ pack year we will add CT chest to the orders to further evaluate for concerns of malignancy. High suspicion for cancer given his change in bowel pattern and history. Initiated potassium replacement as his potassium was noted at 2.9. Normal saline 100/h during potassium infusion. Nursing staff to perform bladder scan and evaluate for urinary retention. Resting comfortably, will monitor. Labs reviewed, no elevation of white count. Hemoglobin hematocrit are normal. LFTs are normal. Lipase normal. CT chest abdomen pelvis reviewed and no appreciation of pulmonary or abdominal masses. Pending radiology review. Bladder scan 400ml. Orders placed for indwelling rothman catheter. Final radiology read shows fairly long segment wall thickening of the esophagus with prominent thickening of the esophagus at the level of the mid esophagus. Esophagitis and malignancy are both differential diagnostic considerations recommendations for EGD. Called Dr. Quiroga with general surgery, pending return call. Called Dr. Donahue with urology, scheduled f/u apt on February 22 at 3:30PM in [facility] for urinary retention and indwelling catheter. Diagnostic Imaging Diagonstic Imaging: CT Comments [facility] [place], [place] NAME: [facility] REC#: [id number] PT STATUS: REG ER : 1970 PHYSICIAN: ASHKAN MARTINS ACCOUNT TECHNICIAN ADMIT DATE: 02/07/23/ER Draft Date of Exam:02/07/23 CT CHEST/ABDOMEN/PELVIS W PROCEDURE: CT chest, abdomen, and pelvis with contrast. TECHNIQUE: Multiple contiguous axial images were obtained through the chest, abdomen, and pelvis after the administration of intravenous contrast. Auto Exposure Controls were utilized during the CT exam to meet ALARA standards for radiation dose reduction. DATE: February 07, 2023. INDICATION: 52-year-old male, 30 pound weight loss in one month. Changes in bowel pattern and difficulty urinating. COMPARISON: CT chest, abdomen and pelvis June 21, 2022. FINDINGS: There is mild atelectasis in the left lower lobe. There is no pulmonary nodule or lung mass. There is no otherwise noted focal airspace consolidation. There is no pneumothorax. There is no pleural effusion. The heart is not enlarged. There is no pericardial effusion. There is no abnormally enlarged mediastinal, hilar, or axillary lymph node which specifically meets CT size criteria for adenopathy. There is a long segment mild wall thickening of the esophagus. There is prominent wall thickening at the level of the midesophagus near the level of the rohini on axial image 39. The liver is unremarkable in size and contour. There is no identified focal liver lesion. The main, right, and left portal veins are patent. The gallbladder is unremarkable. There is no intrahepatic or extrahepatic bile duct dilation. The main pancreatic duct is not dilated. Unremarkable appearance of the pancreatic parenchyma. The spleen is normal in size. The adrenal glands are unremarkable. There is moderate renal atrophy bilaterally. The urinary collecting systems are not distended. There is no identified renal or ureteral stone. The urinary bladder is unremarkable. The intestinal tract is not distended. There is no evidence of acute appendicitis. There is no free intraperitoneal air. There is no drainable fluid collection. There is no free fluid in the abdomen or pelvis. There are atherosclerotic calcifications. There is no identified abnormally enlarged lymph node in the abdomen or pelvis meeting CT size criteria for adenopathy. There are multilevel degenerative changes of the spine. There is no identified bone lesion concerning for a bone metastasis. There is no otherwise identified acute bony abnormality. There is right gynecomastia. IMPRESSION: 1. Fairly long segment mild wall thickening of the esophagus with more prominent wall thickening of the esophagus at the level of the mid esophagus. Esophagitis and malignancy are both differential diagnostic considerations. Further evaluation with upper endoscopy is recommended. 2. Mild to moderate renal atrophy bilaterally. Dictated on workstation # [id number] Dict: 02/07/23 1158 Trans: 02/07/23 1208 [facility] [id number] Interpreted by: MATT PEDRO MD Electronically signed by: Departure Communication (Admissions) Time/Spoke to Consulting Phy: 12:19 Dr. Quiroga with general surgery Impression Primary Impression: Esophageal abnormality Additional Impressions: Urinary retention Hypokalemia Nausea & vomiting Unintentional weight loss Disposition: 01 HOME, SELF-CARE Condition: Improved Departure-Patient Inst. Decision time for Depature: 14:01 Referrals: PATEL QUIROGA BETHANY N MD (PCP/Family) Primary Care Physician Rafael DONAHUE MD Patient Instructions: Urinary Retention Add. Discharge Instructions: Plan: 1. F/U with Dr. Donahue with Urology-given apt card for February 22. Leg bag applied. Avoid touching catheter. Keep clean and dry. 2. F/U with Dr. Quiroga on February 21 at 1:30pm. 3. F/U with PCP in 1 week. 4. Return if no urine, blood in urine, fever, persistent nausea/vomiting. 5. Return for any new, concerning, or worsening symptoms. All discharge instructions reviewed with patient and/or family. Voiced understanding. Copy Copies To 1: [facility]/AHSKAN RAMEY ACCOUNT TECHNICIAN Feb 07, 2023 11:19
[2023-02-07 11:28] LABS: BASOPHILS % (AUTO) 0 % (0-10); EOSINOPHILS # (AUTO) 0.2 10^3/uL (0.0-0.3); EOSINOPHILS % (AUTO) 3 % (0-10); HEMATOCRIT 47 % (40-54); LYMPHOCYTES # (AUTO) 1.9 10^3/uL (1.0-4.0); LYMPHOCYTES % (AUTO) 21 % (12-44); MEAN CORPUSCULAR HEMOGLOBIN 34 pg (25-34); MEAN CORPUSCULAR HGB CONC 37 g/dL (32-36); MEAN CORPUSCULAR VOLUME 92 fL (80-99); MEAN PLATELET VOLUME 9.9 fL (9.0-12.2); MONOCYTES # (AUTO) 0.5 10^3/uL (0.0-1.0); MONOCYTES % (AUTO) 6 % (0-12); NEUTROPHILS # (AUTO) 6.3 10^3/uL (1.8-7.8); NEUTROPHILS % (AUTO) 70 % (42-75); PLATELET COUNT 235 10^3/uL (130-400); WHITE BLOOD COUNT 9.1 10^3/uL (4.3-11.0)
[2023-02-07] MEDS ORDERED: POTASSIUM CL 10MEQ/50ML IVPB 50 ML IV ONE ×2 (11:30→12:45)
[2023-02-07] MEDS ORDERED: NS IV 1000 ML 1,000 ML IV ONE (11:30)
[2023-02-07 11:34] LABS: ALBUMIN 3.5 GM/DL (3.2-4.5)
[2023-02-07 11:37] LABS: TOTAL PROTEIN 6.8 GM/DL (6.4-8.2)
[2023-02-07 11:38] LABS: BILIRUBIN,TOTAL 0.6 MG/DL (0.1-1.0)
[2023-02-07 11:42] LABS: BILIRUBIN,DIRECT 0.3 MG/DL (0.0-0.3); BILIRUBIN,INDIRECT 0.3 MG/DL
[2023-02-07] MEDS ORDERED: HOLD METFORMIN - RECEIVED CONTRAST 20 ML VIAL IV SCH (11:45)
[2023-02-07] MEDS ORDERED: IOHEXOL 350 MG/ML 100 ML (OMNIPAQUE 350) VIAL IV ONE (11:45)
[2023-02-07] MEDS ORDERED: NS 100 ML (IVPB) BAG IV ONE (11:45)
--- NOTE | 2023-02-07 12:09 | Diagnostic Imaging Report ---
PROCEDURE: CT chest, abdomen, and pelvis with contrast. TECHNIQUE: Multiple contiguous axial images were obtained through the chest, abdomen, and pelvis after the administration of intravenous contrast. Auto Exposure Controls were utilized during the CT exam to meet ALARA standards for radiation dose reduction. DATE: February 07, 2023. INDICATION: 52-year-old male, 30 pound weight loss in one month. Changes in bowel pattern and difficulty urinating. COMPARISON: CT chest, abdomen and pelvis June 21, 2022. FINDINGS: There is mild atelectasis in the left lower lobe. There is no pulmonary nodule or lung mass. There is no otherwise noted focal airspace consolidation. There is no pneumothorax. There is no pleural effusion. The heart is not enlarged. There is no pericardial effusion. There is no abnormally enlarged mediastinal, hilar, or axillary lymph node which specifically meets CT size criteria for adenopathy. There is a long segment mild wall thickening of the esophagus. There is prominent wall thickening at the level of the midesophagus near the level of the rohini on axial image 39. The liver is unremarkable in size and contour. There is no identified focal liver lesion. The main, right, and left portal veins are patent. The gallbladder is unremarkable. There is no intrahepatic or extrahepatic bile duct dilation. The main pancreatic duct is not dilated. Unremarkable appearance of the pancreatic parenchyma. The spleen is normal in size. The adrenal glands are unremarkable. There is moderate renal atrophy bilaterally. The urinary collecting systems are not distended. There is no identified renal or ureteral stone. The urinary bladder is unremarkable. The intestinal tract is not distended. There is no evidence of acute appendicitis. There is no free intraperitoneal air. There is no drainable fluid collection. There is no free fluid in the abdomen or pelvis. There are atherosclerotic calcifications. There is no identified abnormally enlarged lymph node in the abdomen or pelvis meeting CT size criteria for adenopathy. There are multilevel degenerative changes of the spine. There is no identified bone lesion concerning for a bone metastasis. There is no otherwise identified acute bony abnormality. There is right gynecomastia. IMPRESSION: 1. Fairly long segment mild wall thickening of the esophagus with more prominent wall thickening of the esophagus at the level of the mid esophagus. Esophagitis and malignancy are both differential diagnostic considerations. Further evaluation with upper endoscopy is recommended. 2. Mild to moderate renal atrophy bilaterally. Dictated by: Dictated on workstation # [id number]
[2023-02-07] MEDS ORDERED: LIDOCAINE UROJET 2% GEL 10 ML PKG TOP ONE (12:15)
[2023-02-07 12:41] LABS: BILIRUBIN,URINE NEGATIVE (NEGATIVE); CLARITY,URINE CLEAR; COLOR,URINE YELLOW; GLUCOSE, URINE (UA) NEGATIVE (NEGATIVE); KETONES,URINE NEGATIVE (NEGATIVE); LEUKOCYTE ESTERASE ,URINE NEGATIVE (NEGATIVE); NITRITE,URINE NEGATIVE (NEGATIVE); PROTEIN,URINE NEGATIVE (NEGATIVE)
[2023-02-07 12:42] LABS: BACTERIA,URINE NEGATIVE /HPF
[2023-02-07 12:43] LABS: SQUAMOUS EPITHELIAL CELL,UR RARE /HPF
[2023-02-07 14:12] VITALS: BP 103/67
[2023-02-08] MEDS ORDERED: HYOS0.1283 SL (21:11)
== END 2023-02-07 14:12 | disposition home or self-care (01) ==
LOC: EDUNIT# 09:47 → ER 09:49
DX: R33.9 Retention of urine, unspecified (principal); R11.2 Nausea with vomiting, unspecified; E87.6 Hypokalemia; K22.9 Disease of esophagus, unspecified; R63.4 Abnormal weight loss; E66.9 Obesity, unspecified; F17.210 Nicotine dependence, cigarettes, uncomplicated; Z68.42 Body mass index [BMI] 45.0-49.9, adult
CPT/HCPCS: 36415; 51702; 71260; 74177; 80048; 80076; 81000; 83690; 85025

== ENCOUNTER 2023-02-08 20:45 | Emergency (ER) | payer MEDICARE, MEDICAID ==
[~2023-02-08] VITALS: Ht 167.7 cm; Wt 116.0 kg
[2023-02-08] MEDS ORDERED: HYOSCYAMINE 0.125 MG TABLET PO ONE (21:00)
--- NOTE | 2023-02-08 21:10 | ED GU-Female ---
General Chief Complaint: - Reproductive Stated Complaint: CATHETER PROBLEMS Source: patient Exam Limitations: no limitations History of Present Illness Date Seen by Provider: Feb 08, 2023 Time Seen by Provider: 21:05 Initial Comments Patient is a 52-year-old male who presents ED for lower abdominal pain, pain around the head of the penis. Patient was seen here yesterday had a catheter placed for fluid retention. Patient states he is urinating in his catheter bag. Did not notice of bright red blood this evening. He reports a sharp spasming pain in his lower abdomen and head of the penis which results in urine production in the catheter bag. This appears to be intermittent. He denies of any fever, vomiting, diarrhea, chills, body aches, chest pain or shortness of breath. Scheduled follow-up with Dr. Marquez urology February 22. Patient has no other complaints. Patient had reassuring lab work and urinalysis yesterday. Allergies and Home Medications Allergies Coded Allergies: varenicline (Verified Allergy, Mild, N/V, 12/21/21) vortioxetine (Verified Allergy, Mild, Vomiting, 12/21/21) Patient Home Medication List Home Medication List Reviewed: Yes Albuterol Sulfate (Ventolin Hfa) 1 Puff Puff, 2 PUFF INH Q4H PRN for SHORTNESS OF BREATH, (Reported) Entered as Reported by: PRISCA DARBY on 10/05/21 135 Alfuzosin HCl (Alfuzosin HCl ER) 10 Mg Tab.er.24h, 10 MG PO HS, (Reported) Entered as Reported by: JUAN RAMON BARTLETT on 09/22/18 1331 Atorvastatin Calcium (Atorvastatin Calcium) 40 Mg Tablet, 40 MG PO HS, (Reported) Entered as Reported by: PRISCA DARBY on 10/05/21 135 Bupropion HCl (Bupropion Xl) 150 Mg Tab.er.24h, 150 MG PO DAILY, (Reported) Entered as Reported by: PRISCA DARBY on 10/05/21 135 Dulaglutide (Trulicity) 0.75 Mg/0.5 Ml Pen.injctr, 0.5 MG IJ WED, (Reported) Entered as Reported by: PRISCA DARBY on 10/05/21 135 Escitalopram Oxalate (Escitalopram Oxalate) 10 Mg Tablet, 10 MG PO DAILY, (Reported) Entered as Reported by: ESTELITA MAI on 01/22/19 0929 Famotidine (Famotidine) 20 Mg Tablet, 20 MG PO BID, (Reported) Entered as Reported by: PRISCA DARBY on 10/05/21 1356 Hydralazine HCl (Hydralazine HCl) 25 Mg Tablet, 25 MG PO TID Prescribed by: CHANDRIKA AGEE on 10/09/21 1042 Hydrochlorothiazide (Hydrochlorothiazide) 25 Mg Tablet, 25 MG PO DAILY, (Reported) Entered as Reported by: PRISCA DARBY on 10/05/21 1356 Hydrocodone/Acetaminophen (Hydrocodone-Acetamin 5-325 mg) 5 Mg-325 Mg Tablet, 1 EACH PO Q6H PRN for PAIN-MODERATE (5-7), (Reported) Entered as Reported by: JUAN RAMON BARTLETT on 03/05/20 1315 Hydroxyzine HCl (Hydroxyzine HCl) 50 Mg Tablet, 50 MG PO HS, (Reported) Entered as Reported by: PRISCA DARBY on 10/05/21 1356 Hyoscyamine Sulfate (Levsin-Sl) 0.125 Mg Tab.subl, 0.125 MG SL Q4H Prescribed by: FREDERICK TALAVERA on 02/08/23 2111 Ibuprofen (Ibuprofen) 800 Mg Tablet, 800 MG PO Q8H PRN for PAIN-MILD, (Reported) Entered as Reported by: ESTELITA MAI on 01/22/19 0929 Isosorbide Mononitrate (Isosorbide Mononitrate ER) 30 Mg Tab.er.24h, 30 MG PO DAILY Prescribed by: CHANDRIKA AGEE on 10/09/21 1042 Lisinopril (Lisinopril) 40 Mg Tablet, 40 MG PO DAILY, (Reported) Entered as Reported by: PRISCA DARBY on 10/05/21 1356 Loperamide HCl (Loperamide) 2 Mg Tablet, 2 MG PO DAILY PRN, (Reported) Entered as Reported by: SHAINA ELLIOTT on 12/21/21 1344 Metformin HCl (Metformin HCl) 500 Mg Tablet, 500 MG PO BID, (Reported) Entered as Reported by: ESTELITA MAI on 01/24/18 1210 Metoprolol Succinate (Metoprolol Succinate) 25 Mg Tab.er.24h, 25 MG PO DAILY, (Reported) Entered as Reported by: SHAINA ELLIOTT on 12/21/21 134 Morphine Sulfate (Morphine Sulfate ER) 30 Mg Tablet.er, 30 MG PO Q12H, (Re ported) Entered as Reported by: PRISCA DARBY on 10/05/21 135 Naloxone HCl (Narcan) 4 Mg/Actuation [place], 4 MG NS UD, (Reported) Entered as Reported by: SHAINA ELLIOTT on 12/21/211343 Nicotine (Nicotine Patch) 21 Mg/24 Hour Patch.td24, 21 MG TD DAILY, (Reported) Entered as Reported by: SHAINA ELLIOTT on 12/21/211343 Paliperidone (Paliperidone ER) 6 Mg Tab.er.24, 12 MG PO DAILY, (Reported) Entered as Reported by: PRISCA DARBY on 10/05/211355 Pantoprazole Sodium (Pantoprazole Sodium) 40 Mg Tablet.dr, 40 MG PO DAILY, (Reported) Entered as Reported by: ESTELITA MAI on 01/22/19 0929 Pregabalin (Pregabalin) 50 Mg Capsule, 50 MG PO TID, (Reported) Entered as Reported by: PRISCA DARBY on 10/05/21 135 Sennosides/Docusate Sodium (Stimulant Laxative Plus Tablet) 8.6 Mg-50 Mg Tablet, 1 EA PO BID, (Reported) Entered as Reported by: PRISCA DRABY on 10/05/21 135 Sucralfate (Carafate) 1 Gram Tablet, 1 GM PO QID, (Reported) Entered as Reported by: SHAINA ELLIOTT on 12/21/211343 Sulfamethoxazole/Trimethoprim (Bactrim Ds Tablet) 1 Each Tablet, 1 EACH PO BID Prescribed by: KAT PILLAI on 06/21/221946 Umeclidinium Baylis (Incruse Ellipta) 62.5 Mcg/Actuation Blst.w.dev, 62.5 MCG IH UD, (Reported) Entered as Reported by: SHAINA ELLIOTT on 12/21/211343 [Lidocaine Top] Unknown Strength , Unknown Dose, (Reported) Entered as Reported by: SHAINA ELLIOTT on 10/10/22 1344 Review of Systems Review of Systems Constitutional: No chills, No diaphoresis, No malaise, No weakness EENTM: No ear pain, No blurred vision, No double vision Respiratory: No cough, No dyspnea on exertion Cardiovascular: No chest pain Gastrointestinal: No abdominal pain, No diarrhea, No nausea, No vomiting Genitourinary: burning; denies discharge, denies dysuria, denies frequency; hematuria Musculoskeletal: No back pain, No joint pain Skin: No change in color, No change in hair/nails All Other Systemes Reviewed Negative Unless Noted: Yes Past [id number]-[id number] Hx Immunizations Up To Date Tetanus Booster (TDap): Less than 5yrs First/Initial COVID19 Vaccinat: 4 shots Second COVID19 Vaccination Phil: 2020 Third COVID19 Vaccination Date: 2021 Seasonal Allergies Seasonal Allergies: Yes Past Medical History Surgery/Hospitalization HX: COPD, CHF, HTN, PREDIABETIC R SHOULDER X 2, GASTRIC SLEEVE Surgeries: Yes (RIGHT SHOULDER REPAIR x2, GASTRIC SLEEVE) Abdominal Respiratory: Yes Asthma, Sleep Apnea, COPD Currently Using CPAP: No (STATES HIS MODEL HAS BEEN RECALLED. HE IS NOT WEARING IT.) Currently Using BIPAP: No Cardiac: Yes (CHF) Angina, High Cholesterol, Hypertension Neurological: Yes Neuropathy Reproductive Disorders: No Sexually Transmitted Disease: No HIV/AIDS: No Genitourinary: No Gastrointestinal: Yes (BLOOD IN STOOLS) Gastroesophageal Reflux, Chronic Constipation, Polyps Musculoskeletal: Yes (CHRONIC LEG PAINS) Arthritis Endocrine: Yes (Morbid obesity) Diabetes, Non-Insulin dep HEENT: No (dentures, GLASSES) Loss of Vision: Denies Hearing Impairment: Denies Cancer: No Psychosocial: Yes Anxiety, PTSD, Depression Integumentary: No Blood Disorders: No Adverse Reaction/Blood Tranf: No (N/A) Family Medical History Colon cancer Cancer, Diabetes Physical Exam Vital Signs Vital Signs - First Documented 02/08/23 20:52 Temp 36.8 Pulse 98 Resp 22 B/P (MAP) 136/86 (103) Pulse Ox 95 O2 Delivery Room Air Capillary Refill : Height, Weight, BMI Height: 5'6.00" Weight: 293lbs. 0.0oz. 132.211049yd; 41.00 BMI Method:Stated General Appearance: WD/WN, no apparent distress HEENT: PERRL/EOMI, normal ENT inspection, TMs normal, pharynx normal Neck: non-tender, full range of motion, supple Cardiovascular: regular rate, rhythm, no edema, no gallop, no JVD Respiratory: chest non-tender, lungs clear, normal breath sounds, no respiratory distress, no accessory muscle use Gastrointestinal: normal bowel sounds, non tender, soft Genital/Rectal: other (Mild irritation around the head of the penis. 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 as tested, no motor/sensory deficits, alert, normal mood/affect, oriented x 3 Skin: normal color, warm/dry Procedures/Interventions Suture Size: 4-0 Progress/Results/Core Measures Suspected Sepsis SIRS Temperature: Pulse: Respiratory Rate: Blood Pressure / Mean: Results/Orders My Orders Orders - LORY WESLEY Hyoscyamine Tablet (Hyoscyamine Tablet) (02/08/23 21:00) Medications Given in ED Current Medications Medications Dose Ordered Sig/Ori Route Start Time Stop Time Status Last Admin Dose Admin Hyoscyamine Sulfate 0.125 mg ONCE ONCE PO 02/08/23 21:00 02/08/23 21:04 DC 02/08/23 21:06 0.125 MG Vital Signs/I&O 02/08/23 20:52 Temp 36.8 Pulse 98 Resp 22 B/P (MAP) 136/86 (103) Pulse Ox 95 O2 Delivery Room Air Capillary Refill : Departure Communication (PCP) Reviewed previous ER visits, H&P, lab testing. Patient was seen here yesterday had a [place] catheter placed due to urinary retention. Patient has had a catheter in the place. Reports pain around the penis and the spasming of his bladder intermittent sharp pain in his lower abdomen. Patient is producing urine. Did notice some dark urine. 150 mL in his catheter bag but did just drain it right before arrival. Small blood clots noted. Irrigated here without any difficulties, restrictions or clots. Appears to be draining well. Did give patient Levsin. Concerned that he may be experiencing bladder spasming. Did obtain a urinalysis yesterday which was negative for infection. Lab work was reassuring as well. Does not appear in acute distress. Afebrile. Vital signs remained stable. At this time will discharge with Levsin sublingual as needed. Does have a follow-up with Dr. Marquez on February 22. If any worsening pain fever decreased urine output to return back to ED. Impression Primary Impression: Bladder spasm Disposition: HOME, SELF-CARE Condition: Stable Departure-Patient Inst. Decision time for Depature: 21:10 Referrals: ESTHER CHAVEZ MD (PCP/Family) Primary Care Physician Patient Instructions: Bladder Spasms Add. Discharge Instructions: Take Levsin as prescribed for bladder spasming. Continue monitoring symptoms. If any worsening symptoms may need to consider changing up medication. If d ecreased urine output, fever, continued pain to return back to ED. All discharge instructions reviewed with patient and/or family. Voiced understanding. Scripts Hyoscyamine Sulfate (Levsin-Sl) 0.125 Mg Tab.subl 0.125 MG SL Q4H for Spasms, #16 TAB Prov: LORY WESLEY 02/08/23 LORY WESLEY Feb 08, 2023 21:10
[2023-02-08] MEDS ORDERED: HYOS0.1283 SL (21:11)
[2023-02-08 21:33] VITALS: BP 126/90
== END 2023-02-08 21:33 | disposition home or self-care (01) ==
LOC: EDUNIT# 20:45 → ER 20:47
DX: N32.89 Other specified disorders of bladder (principal); E66.01 Morbid (severe) obesity due to excess calories; Z68.41 Body mass index [BMI] 40.0-44.9, adult
CPT/HCPCS: 99283